=== PATIENT | male | born 1950 | race Caucasian/White ===

== ENCOUNTER → 2021-07-01 09:17 | Outpatient (BNVA) | payer OTHER, SELFPAY | PROVIDERS: Visit Provider Psychiatry & Neurology Neurology ==

== ENCOUNTER → 2021-10-23 08:22 | Outpatient (BNVA) | payer OTHER, SELFPAY | PROVIDERS: PCP Family Medicine; Visit Provider Psychiatry & Neurology Neurology | DX: G20 Parkinson's disease (principal) ==

== ENCOUNTER 2022-01-08 09:33 | Outpatient (REF) | payer OTHER, SELFPAY ==
--- NOTE | ~2022-01-08 | CT_ITS ---
EXAMINATION: CT HEAD WITHOUT CONTRAST CLINICAL INFORMATION: R32 - Unspecified urinary incontinence COMPARISON: None TECHNIQUE: Contiguous axial imaging was performed from the skull base to vertex without intravenous administration of contrast. Additional 2-D coronal and sagittal reformatted images are generated on the CT workstation and uploaded to PACS. This CT examination was performed using dose optimization techniques as appropriate, variously including the following: *Automated exposure control *Adjustment of mA and/or kV according to patient size (this includes techniques or standardized protocols for targeted exams where dose is matched to indication/reason for exam; i.e. extremities or head) *Use of iterative reconstruction technique DLP: 765 mGy-cm FINDINGS: There is no intracranial hemorrhage or hematoma. No hydrocephalus, edema, mass effect, or midline shift. The ventricles are normal in size and contour. There are mild atrophic changes with some accentuation of the cortical sulci and fissures. There are small bilateral subdural hygromas, slightly larger on right, 6-7 mm right and 4-5 mm with on left. In the posterior fossa hygromas are seen approximately 6 mm right and just under 4 mm on left. The maddox-white matter differentiation appears well preserved . There is no visible acute territorial infarct or mass lesion. The calvarium appears intact. There is no pneumocephalus or orbital emphysema. The visualized sinuses and middle ears and mastoid air cells show no significant mucosal thickening. The right mastoid air cells are congenitally underpneumatized There are no air-fluid levels. CT/CT head/brain wo con IMPRESSION: -No hydrocephalus, edema, or mass effect. -No territorial infarct. Maddox-white matter differentiation preserved. -Small bilateral subdural hygromas.
== END 2022-01-08 09:34 | disposition home or self-care (01) ==
LOC: HO.CT 09:33
PROVIDERS: PCP Psychiatry & Neurology Neurology; Visit Provider Psychiatry & Neurology Neurology
DX: G20 Parkinson's disease (principal); G47.52 REM sleep behavior disorder; R32 Unspecified urinary incontinence
CPT/HCPCS: 70450

== ENCOUNTER → 2022-08-03 08:03 | Outpatient (BNVA) | payer OTHER, SELFPAY | PROVIDERS: PCP Family Medicine; Visit Provider Psychiatry & Neurology Neurology | DX: Z13.89 Encounter for screening for other disorder (principal) ==

== ENCOUNTER → 2022-11-01 09:51 | Outpatient (BNVA) | payer OTHER, SELFPAY | PROVIDERS: PCP Family Medicine; Visit Provider Psychiatry & Neurology Neurology | DX: G20 Parkinson's disease (principal); G47.52 REM sleep behavior disorder ==

== ENCOUNTER 2023-01-18 09:44 | Outpatient (REF) | payer OTHER, SELFPAY ==
--- NOTE | ~2023-01-18 | CT_ITS ---
EXAMINATION: CT HEAD/BRAIN WITHOUT CONTRAST CLINICAL INFORMATION: Nontraumatic subdural hemorrhage. COMPARISON: Previous head CT December 2021. TECHNIQUE: Contiguous axial imaging was performed from the skull base to vertex without intravenous administration of contrast. This CT examination was performed using dose optimization techniques as appropriate, variously including the following: *Automated exposure control *Adjustment of mA and/or kV according to patient size (this includes techniques or standardized protocols for targeted exams where dose is matched to indication/reason for exam; i.e. extremities or head) *Use of iterative reconstruction technique. DLP: 801 mGy-cm. FINDINGS: There is mild generalized atrophy. There is nonspecific periventricular white matter disease. Prominent extra-axial CSF spaces versus possible small subdural hygromas appear similar to December 2021 exam. No evidence of hemorrhage. No mass, mass effect or infarct. Review at bone windows is normal. No skull fracture. Visualized paranasal sinuses, mastoid air cells and middle ears are clear. CT/CT head/brain wo IV con IMPRESSION: Mild generalized atrophy and nonspecific periventricular white matter disease. Possible small bilateral subdural hygromas versus prominent extra-axial CSF spaces related to generalized atrophy appear unchanged from December 2021 exam.
== END 2023-01-18 09:45 | disposition home or self-care (01) ==
LOC: HO.CT 09:44
PROVIDERS: PCP Family Medicine; Visit Provider Psychiatry & Neurology Neurology
DX: I62.00 Nontraumatic subdural hemorrhage, unspecified (principal)
CPT/HCPCS: 70450

== ENCOUNTER 2023-02-15 08:59 | Outpatient (AMB) | payer OTHER, SELFPAY ==
--- NOTE | 2023-02-15 09:03 | MHC.OFFVIS ---
Intake Vital Signs 02/15/23 09:05 Height 5 ft 6 in Weight 163 lb 2 oz BMI 26.3 BP 104/60 Blood Pressure Location Rt brachial Position Sitting Pulse 60 Pulse Source Pulse Oximeter Pulse Oximetry (%) 97 Oxygen Delivery Method Room Air Intake Visit Reasons: 3m f/u parkinsons-lvm Intake Note: Pt presents to the office today for a 3 month follow up for parkinsons. Pts Tory is present at this appointment. states he has been pretty much the same. Pts states he is still unsteady, still incontinent. Pt states he had some screaming episodes last night which hasnt happened in a long time. Pts states he is confused at night a lot and sleeps a lot during the day. Pts states he does eat well but ahs some trouble swallowing occasionally and drools a lot at night. Accompanied by: Spouse Allergies mirtazapine [From Remeron] Allergy (Severe, Verified 02/15/23 09:07) choking amoxicillin Allergy (Mild, Verified 02/15/23 09:07) unknown azithromycin Allergy (Mild, Verified 02/15/23 09:07) unknown tamsulosin [From Flomax] Allergy (Mild, Verified 02/15/23 09:07) unknown quetiapine Allergy (Verified 02/15/23 09:07) Unknown Statins Allergy (Severe, Uncoded 02/15/23 09:07) rhadeomyolitis IVP DYE Allergy (Uncoded 02/15/23 09:07) Unknown Medication List - Last Reconciled 02/15/23 by Fabby Sun MD apixaban (Eliquis) 5 mg PO BID carbidopa-levodopa 25-100 mg (Sinemet) 1 tab PO TID 90 days carbidopa-levodopa 25-100 mg ER 1 tab PO TID 90 days famotidine (Pepcid) 20 mg PO DAILY hydrochlorothiazide 25 mg PO DAILY hydroxyzine HCl 10 mg PO BEDTIME melatonin 20 mg PO DAILY memantine 10 mg PO BID 90 days polyethylene glycol 3350 (Miralax) 17 grams PO DAILY HPI HPI Comments History of Present Illness Details 72 y/o male calls for follow up of parkinsons disease and cognitive issues.He is doind better than last visit. He is able to get up from his chair and walk with walker during the day .He still has drooling, nighttime confusion. 08/12CT scan - head showed right frontoparietal chronic subdural hemtoma 01/18/23 There is mild generalized atrophy. There is nonspecific periventricular white matter disease. Prominent extra-axial CSF spaces versus possible small subdural hygromas appear similar to December 2021 exam. No evidence of hemorrhage. No mass, mass effect or infarct. Review at bone windows is normal. No skull fracture. Visualized paranasal sinuses, mastoid air cells and middle ears are clear. He has excessive daytime sleepiness and has insomnia at night . He has occasional RBD His cognition has worsened. His diet is OK.No hallucinations. He has day night reversal , multiple naps during the day and multiple confused arousals at night. No dizziness. His BP has been stable so did not start on midodrine [facility] Medical History Anxiety Atrial fibrillation Depression Exposure to cadmium Exposure to potentially hazardous chemical Exposure to solvent Hypertrophy of prostate Parkinsons Rhabdomyolysis Subdural hematoma Subdural hematoma, nontraumatic Vitamin D deficiency Surgical History History of lithotripsy History of removal of calculus of renal pelvis through percutaneous nephrostomy History of urostomy No pertinent past surgical history Family History Mother Heart disease CHF (congestive heart failure) Diabetes Father Dementia Family/Other Mesothelioma Paranoid schizophrenia Depressive disorder Social History Household Members: Spouse Alcohol intake: never Patient Tobacco Use Status: Never used Tobacco Physical Exam Vital Signs: Last Vital Signs Pulse 60 02/15/23 09:05 BP 104/60 02/15/23 09:05 Pulse Ox 97 02/15/23 09:05 Oxygen Delivery Method Room Air 02/15/23 09:05 BMI result Body Mass Index 26.3 Const Orientation/consciousness: patient oriented x3 Eyes Pupils: Equal, round and reactive pupils present Neuro Other: moderate decreased facial expression and blink No tremors FFM and foot taps decreased moderately R>L Hypophonia cog wheel rigidity 2+right 1 on left able to stand holding on to the arm s of the chair, magnetic gait , stooped General: patient oriented x3 and moves all extremities Cranial nerves: Yes Equal, round and reactive pupils present and Yes Normal facial strength present Coordination: [id number] test normal Assessment & Plan Assessment & Plan (1) Parkinsons: Code(s): G20 - Parkinson's disease (2) REM behavioral disorder: Code(s): G47.52 - REM sleep behavior disorder Plan continue carbidopa /levodopa 1 tab tid 7am 12 noon 7pm carbidopa levodopa ER 1tabs 25/100 tid Start azilect 1mg qd nemaneda 10mg bid Monitor BP- has been stable Increase fluids - 9 cups a day Increase Physical activity - his helps with his exercises and is not motivated . Needs help with dressing , standing up Change memantine 10mg bid. Follow up CT reviewed Medications: New rasagiline (Azilect) 1 mg PO DAILY 90 tabs 5RF Coding Level of Care Code Est Pt Level 4 (51384) Diagnoses Parkinsons G20 REM behavioral disorder G47.52
[2023-02-15 09:05] VITALS: BP 104/60; PULSE 60; O2SAT 97; BMI 26.3
== END 2023-02-15 09:22 | disposition home or self-care (01) ==
PROVIDERS: Visit Provider Psychiatry & Neurology Neurology
DX: G20 Parkinson's disease (principal); G47.52 REM sleep behavior disorder
CPT/HCPCS: 99214

== ENCOUNTER → 2023-02-15 08:59 | Outpatient (BNVA) | payer OTHER, SELFPAY | PROVIDERS: Visit Provider Psychiatry & Neurology Neurology | DX: G20 Parkinson's disease (principal); G47.52 REM sleep behavior disorder; I62.00 Nontraumatic subdural hemorrhage, unspecified ==

== ENCOUNTER 2023-06-23 10:01 | Outpatient (AMB) | payer OTHER, SELFPAY ==
[2023-06-23 10:18] VITALS: BP 98/66; PULSE 68; RESP 15; O2SAT 98; BMI 25.8
--- NOTE | 2023-06-23 10:18 | MHC.OFFVIS ---
Intake Vital Signs 06/23/23 10:18 Height 5 ft 6 in Weight 160 lb BMI 25.8 BP 98/66 Blood Pressure Location Lt brachial Position Sitting Respiration 15 Pulse 68 Pulse Source Pulse Oximeter Pulse Oximetry (%) 98 Oxygen Delivery Method Room Air Intake Visit Reasons: 4m follow up Parkinson's - Confirmed Intake Note: Pt presents for a 4 month follow up for Parkinson's. Crocheter Required: No Allergies mirtazapine [From Remeron] Allergy (Severe, Verified 06/23/23 10:18) choking amoxicillin Allergy (Mild, Verified 06/23/23 10:18) unknown azithromycin Allergy (Mild, Verified 06/23/23 10:18) unknown tamsulosin [From Flomax] Allergy (Mild, Verified 06/23/23 10:18) unknown quetiapine Allergy (Verified 06/23/23 10:18) Unknown Statins Allergy (Severe, Uncoded 06/23/23 10:18) rhadeomyolitis IVP DYE Allergy (Uncoded 06/23/23 10:18) Unknown Medication List - Last Reconciled 06/23/23 by Fabby Sun MD apixaban (Eliquis) 5 mg PO BID carbidopa-levodopa 25-100 mg (Sinemet) 1 tab PO TID 90 days carbidopa-levodopa 25-100 mg ER 1 tab PO TID 90 days famotidine (Pepcid) 20 mg PO DAILY hydrochlorothiazide 25 mg PO DAILY hydroxyzine HCl 10 mg PO BEDTIME melatonin 20 mg PO DAILY memantine 10 mg PO BID 90 days polyethylene glycol 3350 (Miralax) 17 grams PO DAILY rasagiline (Azilect) 1 mg PO DAILY HPI HPI Comments History of Present Illness Details 72 y/o male calls for follow up of parkinsons disease and cognitive issues.He had the flu last month and is recovering He is able to get up from his chair and walk with walker during the day .He still has drooling, nighttime confusion. He had another fall in Feb 2023 and was in ER .No change in CT brain.His falls are mostly related to getting up form wheelchair unsupervised. He has a gait belt He has occasional screaming at night. his is decreasing his melatonin 20mg as he is very sleepy during daytime He has PT 4 times a week 08/12CT scan - head showed right frontoparietal chronic subdural hemtoma 01/18/23 There is mild generalized atrophy. There is nonspecific periventricular white matter disease. Prominent extra-axial CSF spaces versus possible small subdural hygromas appear similar to December 2021 exam. No evidence of hemorrhage. No mass, mass effect or infarct. Review at bone windows is normal. No skull fracture. Visualized paranasal sinuses, mastoid air cells and middle ears are clear. He has excessive daytime sleepiness and has insomnia at night . He has occasional RBD His cognition has worsened. His diet is OK.No hallucinations. He has day night reversal , multiple naps during the day and multiple confused arousals at night. No dizziness. His BP fluctuates. He drinks 7-8 cups of water /day He has nocturnal incontinence.He wears a diaper . 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 [facility] Medical History (Updated 06/23/23 @ 10:38 by Fabby Sun MD) Parkinson's disease without dyskinesia, with fluctuating manifestations Subdural hematoma, nontraumatic Subdural hematoma Vitamin D deficiency Exposure to potentially hazardous chemical Exposure to solvent Exposure to cadmium Rhabdomyolysis Anxiety Atrial fibrillation Depression Hypertrophy of prostate Surgical History History of urostomy History of lithotripsy History of removal of calculus of renal pelvis through percutaneous nephrostomy No pertinent past surgical history Family History Mother Heart disease CHF (congestive heart failure) Diabetes Father Dementia Family/Other Mesothelioma Paranoid schizophrenia Depressive disorder Social History Household Members: Spouse Alcohol intake: never Patient Tobacco Use Status: Never used Tobacco Physical Exam Vital Signs: Last Vital Signs Pulse 68 06/23/23 10:18 Resp 15 06/23/23 10:18 BP 98/66 06/23/23 10:18 Pulse Ox 98 06/23/23 10:18 Oxygen Delivery Method Room Air 06/23/23 10:18 BMI result Body Mass Index 25.8 Const Orientation/consciousness: patient oriented x3 Eyes Pupils: Equal, round and reactive pupils present Neuro Other: moderate decreased facial expression and blink No tremors FFM and foot taps decreased moderately R>L Hypophonia cog wheel rigidity 2+right 1 on left able to stand holding on to the arm s of the chair, magnetic gait , stooped General: patient oriented x3 and moves all extremities Cranial nerves: Yes Equal, round and reactive pupils present and Yes Normal facial strength present Coordination: [id number] test normal Assessment & Plan Assessment & Plan (1) Parkinson's disease without dyskinesia, with fluctuating manifestations: Code(s): G20.A2 - Parkinson's disease without dyskinesia, with fluctuations (2) REM behavioral disorder: Code(s): G47.52 - REM sleep behavior disorder Plan Increase carbidopa /levodopa 1 tab tid 7am 1 pm 6pm 11 pm carbidopa levodopa ER 1tabs 25/100 tid Start azilect 1mg qd- not sure if he is taking namenda 10mg bid Monitor BP- has been stable Increase fluids - 9 cups a day Medications: Changed From carbidopa-levodopa 25-100 mg (Sinemet) 1 tab PO TID 90 days 270 tabs 3RF To carbidopa-levodopa 25-100 mg (Sinemet) 1 tab PO QID 360 tabs 3RF 90 days Coding Level of Care Code Est Pt Level 4 (92022) Diagnoses Parkinson's disease without dyskinesia, with fluctuating manifestations G20.A2 REM behavioral disorder G47.52
== END 2023-06-23 10:45 | disposition home or self-care (01) ==
PROVIDERS: PCP Family Medicine; Visit Provider Psychiatry & Neurology Neurology
DX: G20.A2 Parkinson's disease without dyskinesia, with fluctuations (principal); G47.52 REM sleep behavior disorder
CPT/HCPCS: 99214

== ENCOUNTER → 2023-06-23 10:01 | Outpatient (BNVA) | payer OTHER, SELFPAY | PROVIDERS: PCP Family Medicine; Visit Provider Psychiatry & Neurology Neurology | DX: G47.52 REM sleep behavior disorder (principal); I62.00 Nontraumatic subdural hemorrhage, unspecified ==

== ENCOUNTER 2023-10-19 09:43 | Outpatient (AMB) | payer OTHER, SELFPAY ==
[2023-10-19 09:46] VITALS: BP 96/58; PULSE 73; RESP 17; O2SAT 99
--- NOTE | 2023-10-19 09:46 | MHC.OFFVIS ---
Vital Signs 10/19/23 09:46 Height 5 ft 6 in BP 96/58 L Blood Pressure Location Rt brachial Position Sitting Respiration 17 Pulse 73 Pulse Source Pulse Oximeter Pulse Oximetry (%) 99 Oxygen Delivery Method Room Air Intake Visit Reasons: 6M follow up-CONF Intake Note: Pt presents for a 6 month follow up for Parkinson's. Long Goods Drier Required: No Allergies mirtazapine [From Remeron] Allergy (Severe, Verified 10/19/23 09:46) choking amoxicillin Allergy (Mild, Verified 10/19/23 09:46) unknown azithromycin Allergy (Mild, Verified 10/19/23 09:46) unknown tamsulosin [From Flomax] Allergy (Mild, Verified 10/19/23 09:46) unknown quetiapine Allergy (Verified 10/19/23 09:46) Unknown Statins Allergy (Severe, Uncoded 06/23/23 10:18) rhadeomyolitis IVP DYE Allergy (Uncoded 06/23/23 10:18) Unknown Medication List - Last Reconciled 10/19/23 by Fabby Sun MD apixaban (Eliquis) 5 mg PO BID carbidopa-levodopa 25-100 mg (Sinemet) 1 tab PO QID 90 days carbidopa-levodopa 25-100 mg ER 1 tab PO QID 90 days famotidine (Pepcid) 20 mg PO DAILY glycopyrrolate (Robinul Forte) 2 mg PO BID-TID PRN hydrochlorothiazide 25 mg PO DAILY hydroxyzine HCl 10 mg PO BEDTIME melatonin 20 mg PO DAILY memantine 10 mg PO BID 90 days polyethylene glycol 3350 (Miralax) 17 grams PO DAILY rasagiline (Azilect) 1 mg PO DAILY HPI Comments Details: 72 y/o male calls for follow up of parkinsons disease and cognitive issues.He had COVID last month and is recovering He is able to get up from his chair and walk with walker during the day .He still has drooling, nighttime confusion. No falls. He choke son his saliva and secretions He has a gait belt He has occasional screaming at night. his is decreasing his melatonin 20mg as he is very sleepy during daytime He exercises with home health aide He is on a 14 day heart monitor- cardiology is trying to taper eliquis. 08/12CT scan - head showed right frontoparietal chronic subdural hemtoma 8/1/23 There is mild generalized atrophy. There is nonspecific periventricular white matter disease. Prominent extra-axial CSF spaces versus possible small subdural hygromas appear similar to December 2021 exam. No evidence of hemorrhage. No mass, mass effect or infarct. Review at bone windows is normal. No skull fracture. Visualized paranasal sinuses, mastoid air cells and middle ears are clear. He has excessive daytime sleepiness and has insomnia at night . He has occasional RBD His cognition has worsened. His diet is OK.No hallucinations. He has day night reversal , multiple naps during the day and multiple confused arousals at night. No dizziness. His BP fluctuates. He drinks 7-8 cups of water /day He has nocturnal incontinence.He wears a diaper . 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 [facility] Medical History Parkinson's disease without dyskinesia, with fluctuating manifestations Subdural hematoma, nontraumatic Subdural hematoma Vitamin D deficiency Exposure to potentially hazardous chemical Exposure to solvent Exposure to cadmium Rhabdomyolysis Anxiety Atrial fibrillation Depression Hypertrophy of prostate Surgical History History of urostomy History of lithotripsy History of removal of calculus of renal pelvis through percutaneous nephrostomy No pertinent past surgical history Family History Mother Heart disease CHF (congestive heart failure) Diabetes Father Dementia Family/Other Mesothelioma Paranoid schizophrenia Depressive disorder Social History Household Members: Spouse Alcohol intake: never Patient Tobacco Use Status: Never used Tobacco Physical Exam Vital Signs: Last Vital Signs Pulse 73 10/19/23 09:46 Resp 17 10/19/23 09:46 BP 96/58 L 10/19/23 09:46 Pulse Ox 99 10/19/23 09:46 Oxygen Delivery Method Room Air 10/19/23 09:46 Const Orientation/consciousness: patient oriented x3 Eyes Pupils: Equal, round and reactive pupils present Neuro Other: moderate decreased facial expression and blink No tremors FFM and foot taps decreased moderately R>L Hypophonia cog wheel rigidity 2+right 1 on left able to stand holding on to the arm s of the chair, magnetic gait , stooped General: patient oriented x3 and moves all extremities Cranial nerves: Yes Equal, round and reactive pupils present and Yes Normal facial strength present Coordination: [id number] test normal Assessment & Plan Assessment & Plan (1) Parkinson's disease without dyskinesia, with fluctuating manifestations: Code(s): G20.A2 - Parkinson's disease without dyskinesia, with fluctuations Category: Medical (2) REM behavioral disorder: Code(s): G47.52 - REM sleep behavior disorder Category: Medical Plan carbidopa /levodopa 1 tab qid 7am 1 pm 6pm 11 pm Increase carbidopa levodopa ER 1tabs 25/100 qid glycopyrrolate 2mg bid to tid azilect 1mg qd namenda 10mg bid Monitor BP- has been stable Increase fluids - 9 cups a day Medications: New glycopyrrolate (Robinul Forte) 2 mg PO BID-TID PRN 90 tabs 0RF secretions Changed From carbidopa-levodopa 25-100 mg ER 1 tab PO TID 90 days 270 tabs 5RF To carbidopa-levodopa 25-100 mg ER 1 tab PO QID 90 days 360 tabs 5RF Coding Level of Care Code Est Pt Level 4 (19839) Diagnoses Parkinson's disease without dyskinesia, with fluctuating manifestations G20.A2 REM behavioral disorder G47.52
== END 2023-10-19 10:24 | disposition home or self-care (01) ==
PROVIDERS: Absent Provider Psychiatry & Neurology Neurology; PCP Family Medicine; Visit Provider Psychiatry & Neurology Neurology
DX: G20.A2 Parkinson's disease without dyskinesia, with fluctuations (principal); G47.52 REM sleep behavior disorder
CPT/HCPCS: 99214

== ENCOUNTER → 2023-10-19 09:43 | Outpatient (BNVA) | payer OTHER, SELFPAY | PROVIDERS: Absent Provider Psychiatry & Neurology Neurology; PCP Family Medicine; Visit Provider Psychiatry & Neurology Neurology ==

== ENCOUNTER 2024-05-25 12:50 | Outpatient (AMB) | payer OTHER, SELFPAY ==
--- NOTE | 2024-05-25 12:51 | MHC.OFFVIS ---
Vital Signs 05/25/24 12:51 Height 5 ft 6 in Intake Visit Reasons: Follow up Intake Note: Patient following up. Allergies mirtazapine [From Remeron] Allergy (Severe, Verified 05/25/24 12:51) choking amoxicillin Allergy (Mild, Verified 05/25/24 12:51) unknown azithromycin Allergy (Mild, Verified 05/25/24 12:51) unknown tamsulosin [From Flomax] Allergy (Mild, Verified 05/25/24 12:51) unknown quetiapine Allergy (Verified 05/25/24 12:51) Unknown Statins Allergy (Severe, Uncoded 05/25/24 12:51) rhadeomyolitis IVP DYE Allergy (Uncoded 05/25/24 12:51) Unknown HPI Comments Details: 72 y/o male calls for follow up of parkinsons disease and cognitive issues.he had 2 surgeries for kidney stones, had a fall hip fracture and had surgery , he developed aspiration pneumonia during hsi hospitalizations. His also reports taht during his hospitalizations he missed his parkinsons medications multiple days. He is currently at home and is getting home PT OT and speech therapy.He has a G tube now. 08/12CT scan - head showed right frontoparietal chronic subdural hemtoma 01/18/23 There is mild generalized atrophy. There is nonspecific periventricular white matter disease. Prominent extra-axial CSF spaces versus possible small subdural hygromas appear similar to December 2021 exam. No evidence of hemorrhage. No mass, mass effect or infarct. Review at bone windows is normal. No skull fracture. Visualized paranasal sinuses, mastoid air cells and middle ears are clear. [facility] Medical History Parkinson's disease without dyskinesia, with fluctuating manifestations Subdural hematoma, nontraumatic Subdural hematoma Vitamin D deficiency Exposure to potentially hazardous chemical Exposure to solvent Exposure to cadmium Rhabdomyolysis Anxiety Atrial fibrillation Depression Hypertrophy of prostate Surgical History History of urostomy History of lithotripsy History of removal of calculus of renal pelvis through percutaneous nephrostomy No pertinent past surgical history Family History Mother Heart disease CHF (congestive heart failure) Diabetes Father Dementia Family/Other Mesothelioma Paranoid schizophrenia Depressive disorder Social History Household Members: Spouse Alcohol intake: never Patient Tobacco Use Status: Never used Tobacco Physical Exam Const Other: Awake , responds to simple quetsions Telehealth Telehealth Telehealth Platform: Telephone Location of provider rendering services: practice address Location of patient: address on file Patient Identification confirmed using: Name, : Yes Telehealth method: voice only Patient verbally consented to treatment: Yes Patient verbally consented to billing insurance company: Yes Patient informed of any privacy concerns related to visit: Yes Minutes spent on Phone/Video with Pt.: 22 Assessment & Plan Assessment & Plan (1) Parkinson's disease without dyskinesia, with fluctuating manifestations: Code(s): G20.A2 - Parkinson's disease without dyskinesia, with fluctuations Category: Medical (2) REM behavioral disorder: Code(s): G47.52 - REM sleep behavior disorder Category: Medical Plan carbidopa /levodopa 1 tab qid 7am 1 pm 6pm 11 pm carbidopa levodopa ER 1tabs 25/100 qid glycopyrrolate 2mg bid to tid azilect 1mg qd namenda 10mg bid Monitor BP- has been stable Hoe PT OT Speech Medications: Refilled glycopyrrolate (Robinul Forte) 2 mg PO BID-TID PRN 270 tabs 6RF secretions carbidopa-levodopa 25-100 mg (Sinemet) 1 tab PO QID 360 tabs 3RF 90 days carbidopa-levodopa 25-100 mg ER 1 tab PO QID 360 tabs 5RF 90 days memantine 10 mg PO BID 180 tabs 1RF 90 days rasagiline (Azilect) 1 mg PO DAILY 90 tabs 5RF Coding Level of Care Code Tele Est Pt Level 4 (86092) Complex EM visit Add On G2211 Diagnoses Parkinson's disease without dyskinesia, with fluctuating manifestations G20.A2 REM behavioral disorder G47.52 Time Spent (min) 22
--- OUTSIDE RECORDS SUMMARY | 2024-05-30 08:31 | XMS_ITS ---
Author Name [facility] [place] [facility] [place] Address [address] [place] [id number] Care Team Providers Care Livestock Commission Agent Name Role Phone LUIS FERNANDO FONTANEZ Primary Care Provider Unavailabl e AMANDO OHARA Unavailable Unavailable RAMIN MENDIETA Unavailable Unavailable FEISHILA, KALYAN Unavailable Unavailable GOLD, DAMANIVAL Unavailable Unavailable RIGO FENTON Unavailable Unavailable RISING, JENNIFER Unavailable Unavailable SAMUEL, AMARIS Unavailable Unavailable MITALI, CANDICE Unavailable Unavailable Insurance Providers: All historical and current Section Date Range: From patient's date of to the date document was created. This section includes the names of all active insurance providers for the patient. Insurance Provider Type of Coverage Plan Name Start of Policy Coverage End of Policy Coverage Group Number Member ID Insurance Provider's Telephone Number Policy Steen's Name Patient's Relationship to Policy Steen TOMMIE ALT ION [id number] Jun 20, 2017 [id number] EAMON OLIVIA ERT PATIENT MEDICARE (WNR) MEDICARE (M) PART A Jun 20, 2014 PART A [id number] [phone] EAMON OLIVIA ERT PATIENT MEDICARE (WNR) MEDICARE (M) PART B Jun 20, 2014 PART B [id number] EAMON OLIVIA ERT PATIENT MEDICARE (WNR) MEDICARE (M) PART B Jun 20, 2014 PART B [id number] [phone] EAMON OLIVIA ERT PATIENT MEDICARE (WNR) MEDICARE (M) PART A Jun 20, 2014 PART A [id number] [phone] EAMON OLIVIA ERT PATIENT [employer] RX PRESCRIPT ION RX Jun 20, 2023 THPRX [id number] EAMON OLIVIA ERT PATIENT [employer] RX PRESCRIPT ION RX Jun 20, 2022 THPRX [id number] EAMON OLIVIA ERT PATIENT [employer] RX PRESCRIPT ION RX Jun 20, 2022 THPRX [id number] [phone] DAVON OLIVIA JR PATIENT [facility] TON MAR Jun 20, 2017 [id number] [phone] EAMON OLIVIA ERT PATIENT [facility] TON PEÑA E Jun 20, 2017 [id number] [facility] PE[facility] E Jun 20, 2017 [id number] [phone] DAVON OLIVIA JR PATIENT [facility] USP Jun 20, 2017 USP [id number] EAMON OLIVIA ERT PATIENT [facility] Jun 20, 2023 [id number] [phone] EAMON OLIVIA ERT PATIENT Selected Encounter This section includes the information on record at [place] for the Encounter. Date/Time Encounter Type Encounter Description Reason Provider Source Oct 12, 2023 12:02 PM QNHP OL DIG ASSMT&MGMT 5-10 CLINICAL PHARMACY ICD-10-CM G20.C Parkinsonism, unspecified ABEL ALEGRE [facility] Encounter Template Text not used by [place] Assessments - Encounter Diagnoses This section includes the primary and secondary diagnoses documented for the Encounter. Date/Time Primary/Secondary Diagnosis Diagnosis Name Provider Source Oct 12, 2023 12:06 PM PRIMARY Parkinsonism, unspecified ABEL ALEGRE [facility] ([id number] Oct 12, 2023 12:06 PM SECONDARY Unspecified urinary incontinence ABEL ALEGRE [facility] ([id number]) Plan of Treatment: Future Appointments (+ 6 months) and Future Tests (+/- 45 days) The Plan of Treatment section includes future care activities for the patient from all [place] [facility] This section includes future appointments and future orders which are active, pending or scheduled. Future Appointments This section includes appointments that were scheduled to occur 6 months from the date of the Encounter, up to a maximum of 20 appointments. The data comes from all [place] treatment facilities. Appointment Date/Time Appointment Type Appointme nt Facility Name Oct 17, 2023 01:00 PM [facility] [place] [facility] Oct 17, 2023 01:15 PM [facility] [place] [facility] Dec 26, 2023 11:00 AM AMBULATORY - MEDIC[facility] [place] [facility] Jan 04, 2024 01:00 PM AMBULATORY - NONE [facility] [place] [facility] Feb 02, 2024 03:00 PM AMBULATORY - REHAB MEDICIN E [facility] [place] [facility] Feb 14, 2024 12:30 PM AMBULATORY - REHAB MEDICIN E [facility] [place] [facility] Mar 15, 2024 10:00 AM AMBULATORY - REHAB MEDICIN E [facility] [place] [facility] Mar 22, 2024 08:00 AM [facility]ULATORY [facility]IC[facility] [place] [facility] Mar 22, 2024 01:00 PM AMBULATORY - NONE [facility] [place] [facility] Mar 27, 2024 02:30 PM [facility]ULATORY - MEDICINE [facility] [place] [facility] Mar 29, 2024 11:00 AM AMBULATORY - REHAB MEDICIN E [facility] [place] [facility] Apr 12, 2024 11:00 AM AMBULATORY - REHAB MEDICIN E [facility] [place] [facility] Lab Results: +/- 30 days of the encounter This section includes the Chemistry and Hematology Lab Results on record with [place] for the patient. Radiology Reports and Pathology Reports are provided separately, in subsequent sections. Lab Results This section contains the Chemistry/Hematology Results that were resulted 30 days before or 30 daysafter the date of the Encounter. Date/Time Source Result Type Result - Unit Interpretation Reference Range Comment Oct 10, 2023 02:00 PM [facility] FOLATE (WROX) Specimen Type: SERUM No comment entered. Ordering Provider: LUIS FERNANDO FONTANEZ Report Released Date/Time: Oct 10, 2023 08:28 AM Reporting Lab: [facility] [address] [address] Performing Lab: [facility] [address] [facility] [address] FOLATE (WROX) 13.68 ng/mL >5.2 Oct 10, 2023 02:00 PM [facility] LIVER FUNCTION Specimen Type: SERUM No comment entered. Ordering Provider: LUIS FERNANDO FONTANEZ Report Released Date/Time: Oct 10, 2023 08:28 AM Reporting Lab: [facility] [address] [address] Performing Lab: [address] [address] PROTEIN,TOTAL 7.0 g/dL 6.0-8.3 ALBUMIN 3.6 g/dL 3.5-5.0 ALKALINE PHOSPHATASE 77 U/L 40-150 AST 21 U/L 5-34 ALT 14 U/L BILIRUBIN, TOTAL 0.4 mg/dL 0.2-1.2 Oct 10, 2023 02:00 PM [facility] LIPID PANEL, NON FASTING Specimen Type: SERUM No comment entered. Ordering Provider: LUIS FERNANDO FONTANEZ Report Released Date/Time: Oct 10, 2023 08:28 AM Reporting Lab: [facility] [address] [address] Performing Lab: [facility] [address] [address] CHOLESTEROL 210 mg/dL H TRIGLYCERIDE 84 mg/dL 0-150 LDL calculated 133 mg/dL H 0-129 CHOL/HDL 3.5 HDL CHOLESTEROL 60 mg/dL 40-60 Oct 10, 2023 02:00 PM [facility] VITAMIN D (25-OH) Specimen Type: SERUM No comment entered. Ordering Provider: LUIS FERNANDO FONTANEZ A Report Released Date/Time: Oct 10, 2023 08:28 AM Reporting [facility] [place] [facility] [address] [address] Performing Lab: [place] [facility] [address] [address] VITAMIN D (25-OH) 38 ng/mL 20-50 Oct 10, 2023 02:00 PM [facility] VITAMIN B12 Specimen Type: SERUM No comment entered. Ordering Provider: LUIS FERNANDO FONTANEZ Report Released Date/Time: Oct 10, 2023 08:28 AM Reporting Lab: [place] [facility] [place] [facility] [address] [address] Performing [facility]: [facility] [address] [address] VITAMIN B12 767 pg/mL 200-900 Oct 10, 2023 02:00 PM [facility] HEMOGLOBIN A1C PANEL Specimen Type: BLOOD Comment: Values obtained from A1C measurements can vary. For atypical A1C assays, a reported value of 7.0 could actually be between 6.72 and 7.28 if measured by a reference method. A reported value of 9.0 could actually be between 8.73 and 9.27. Ref: http://www.ngs p.org/CAPdata. asp Ordering Provider: LUIS FERNANDO FONTANEZ Report Released Date/Time: Oct 10, 2023 08:28 AM Reporting Lab: [facility] [address] [address] Performing Lab: [facility] [address] [address] HEMOGLOBIN A1C 5.3 4.0-5.6 Oct 10, 2023 02:00 PM [facility] TSH Specimen Type: SERUM No comment entered. Ordering Provider: LUIS FERNANDO FONTANEZ Report Released Date/Time: Oct 10, 2023 08:28 AM Reporting Lab: [facility] [address] [address] Performing Lab: [facility] [address] [address] TSH 2.22 u[IU]/mL 0.35-5.00 Oct 10, 2023 02:00 PM [facility] FERRITIN Specimen Type: SERUM No comment entered. Ordering Provider: LUIS FERNANDO FONTANEZ Report Released Date/Time: Oct 10, 2023 08:28 AM Reporting Lab: [facility] [address] [address] Performing Lab: [address] [address] FERRITIN 106 ng/mL 20-300 Oct 10, 2023 02:00 PM [facility] IRON & TIBC PANEL Specimen Type: SERUM No comment entered. Ordering Provider: LUIS FERNANDO FONTANEZ Report Released Date/Time: Oct 10, 2023 08:28 AM Reporting Lab: [address] [address] Performing Lab: [address] [address] TIBC 330 ug/dL 204-475 IRON 102 ug/dL 40-160 Transferrin Saturation 30.9 20.0-50.0 Oct 10, 2023 02:00 PM [facility] CBC AND DIFF (AUTO) Specimen Type: BLOOD No comment entered. Ordering Provider: LUIS FERNANDO FONTANEZ Report Released Date/Time: Oct 10, 2023 08:28 AM Reporting Lab: [address] [address] Performing Lab: [address] [address] WBC 7.10 10*3/uL 4.50-11.00 RBC 5.13 10*6/uL 4.23-5.66 HGB 15.1 g/dL 12.8-17 HCT 45.5 39.2-50.4 MCV 88.7 fL 82-99 MCHC 33.2 g/dL 30.8-35.1 PLT 281 10*3/uL 140-360 RDW-CV 12.9 12.0-16.0 [place], Abs 0.67 10*3/uL 0.30-1.10 MCH 29.4 pg 26.2-32.6 Neut % 61.3 43.7-75.8 Lymph % 27.3 14.0-42.3 [place] % 9.4 5.1-13.7 Eos % 1.3 0.4-6.8 Baso % 0.4 0.1-2.0 Neut, Abs 4.35 10*3/uL 2.20-7.60 Lymph, Abs 1.94 10*3/uL 1.00-3.20 Eos, Abs 0.09 10*3/uL 0.03-0.44 Baso, Abs 0.03 10*3/uL 0.01-0.13 Immature Gran % 0.3 0.0-0.7 Immature Gran, Abs 0.02 10*3/uL 0.00-0.06 Oct 10, 2023 02:00 PM [facility] BASIC METABOLIC PANEL (non-fasting) Specimen Type: SERUM No comment entered. Ordering Provider: LUIS FERNANDO FONTANEZ Report Released Date/Time: Oct 10, 2023 08:28 AM Reporting Lab: [facility] [address] [address] Performing Lab: [address] [address] UREA NITROGEN 16 mg/dL 7-25 GLUCOSE 82 mg/dL 65-100 SODIUM 139 mmol/L 135-145 POTASSIUM 3.5 mmol/L 3.5-5.0 CHLORIDE 99 mmol/L L 100-110 CO2 31 meq/L H 20-30 CREATININE, Serum 1.17 mg/dL 0.50-1.40 eGFR(CKD-EPI 2020) 65 mL/min >60 Advance Directives: All historical and current Section Date Range: From patient's date of to the date document was created. This section includes ALL of a patient's completed or amended [place] Advance and Rescinded Directives. The entries below indicate that a directive exists for the patient, but an actual copy is not included with this document. The data comes from all [place] facilities. Date Advance Directives Provider Source Jan 20, 2021 ADVANCE DIRECTIVE BENTON ARAUZ [facility] Encounter Notes: All associated encounter notes This section contains the clinical notes associated to the Encounter. Date/Time Encounter Note(s) Provider Source Dec 01, 2023 01:23 PM ADDENDUM: LOCAL TITLE: Addendum STANDARD TITLE: ADDENDUM DATE OF NOTE: DEC 01, 2023@13:23:24 ENTRY DATE: DEC 01, 2023@13:23:25 AUTHOR: CANDICE GEORGE COSIGNER: URGENCY: STATUS: COMPLETED Note to provider: the [place] pharmacy no longer allows ordering of OTC hygiene products w/ no medicated active ingredients, including oatmeal soap. Please discontinue the following order: OATMEAL,COLLOIDAL CLEANSING BAR/DRY SKIN DIRECTED TOPICALLY ONCE DAILY FOR SKIN IRRITATION Pt may purchase the product OTC if desired. /sharron/ Candice George PharmD Clinical Wheel Adjuster Signed: 12/01/2023 13:26 Receipt Acknowledged By: 12/05/2023 07:28 /sharron/ LUIS FERNANDO CHIU [facility] NURSE PRACTITIONER ====== --- Original Document --- 10/12/23 CONSULT REPORT/NON FORMULARY PADR: The medical record has been reviewed with regard to this restricted drug request. Medication requested: OATMEAL,COLLOIDAL CLEANSING BAR/DRY SKIN Medication indication: Dry Skin, Parkinson's Disease Medical history relevant to this request: From [facility] note 10/10/23: states his skin is dry due to excessive washing and clean up for incontinence care and she is inquiring about a moisturizing soap for showering. Provider comments: has a history of Parkinson's that has advance due to excessive washing due to incontinence and difficutly changing bed has developed dry skinthat emollient cream has not been effective moisturzing soap would be helpful for multiple daily use The request is approved - No formulary-preferred alternative Time spent: 10 min /sharron/ Abel Alegre PharmD Clinical Wheel Adjuster Signed: 10/12/2023 12:06 [id number] Oct 12, 2023 12:02 PM MEDICATION MGT CON SULT: LOCAL TITLE: CONSULT REPORT/NON FORMULARY PADR STANDARD TITLE: MEDICATION MGT CONSULT DATE OF NOTE: OCT 12, 2023@12:02 ENTRY DATE: OCT 12, 2023@12:02:39 AUTHOR: ABEL ALEGRE EXP COSIGNER: URGENCY: STATUS: COMPLETED CONSULT REPORT/NON FORMULARY PADR Has ADDENDA The medical record has been reviewed with regard to this restricted drug request. Medication requested: OATMEAL,COLLOIDAL CLEANSING BAR/DRY SKIN Medication indication: Dry Skin, Parkinson's Disease Medical history relevant to this request: From [facility] note 10/10/23: states his skin is dry due to excessive washing and clean up for incontinence care and she is inquiring about a moisturizing soap for showering. Provider comments: has a history of Parkinson's that has advance due to excessive washing due to incontinence and difficutly changing bed has developed dry skinthat emollient cream has not been effective moisturzing soap would be helpful for multiple daily use The request is approved - No formulary-preferred alternative Time spent: 10 min /sharron/ Abel Alegre PharmD Clinical Wheel Adjuster Signed: 10/12/2023 12:06 12/01/2023 ADDENDUM STATUS: COMPLETED Note to provider: the [place] pharmacy no longer allows ordering of OTC hygiene products w/ no medicated active ingredients, including oatmeal soap. Please discontinue the following order: OATMEAL,COLLOIDAL CLEANSING BAR/DRY SKIN DIRECTED TOPICALLY ONCE DAILY FOR SKIN IRRITATION Pt may purchase the product OTC if desired. /sharron/ Candice George PharmD Clinical Wheel Adjuster Signed: 12/01/2023 13:26 Receipt Acknowledged By: * AWAITING SIGNATURE * LUIS FERNANDO FONTANEZ [id number]
--- OUTSIDE RECORDS SUMMARY | 2024-05-30 08:32 | XMS_ITS | Encounter Summary ---
Author Name [place] Address [address] [place] [id number] Care Team Providers Care Triple Drum Operator Name Role Phone HUSEYIN LUIS FERNANDO Primary Care Provider Unavailabl e AMANDO OHARA Unavailable Unavailable RARAMIN KEYES Unavailable Unavailable FEISHILA, KALYAN Unavailable Unavailable GOLD, [...] Name Patient's Relationship to Policy Steen TOMMIE PRESCRIPT ION [id number] 1 Jun 20, 2017 [id number] [phone] EAMON OLIVIA ERT PATIENT MEDICARE (WNR) MEDICARE (M) PART A Jun 20, 2014 PART A [id number] EAMON OLIVIA ERT PATIENT MEDICARE (WNR) MEDICARE (M) PART B Jun 20, 2014 PART B [id number] [phone] EAMON OLIVIA ERT PATIENT MEDICARE (WNR) MEDICARE (M) PART A Jun 20, 2014 PART A [id number] EMAON OLIVIA ERT PATIENT MEDICARE (WNR) MEDICARE (M) PART B Jun 20, 2014 PART B [id number] EAMON OLIVIA ERT PATIENT OPTUM RX PRESCRIPT ION RX Jun 20, 2023 THPRX [id number] EAMON OLIVIA ERT PATIENT OPTUM RX PRESCRIPT ION RX Jun 20, 2022 THPRX [id number] EAMON OLIVIA ERT PATIENT OPTUM RX PRESCRIPT ION RX Jun 20, 2022 THPRX [id number] DAVON OLIVIA JR PATIENT [facility] Jun 20, 2017 [id number] [phone] EAMON OLIVIA ERT PATIENT [facility] TON PEÑA E Jun 20, 2017 [id number] [phone] DAVON OLIVIA JR PATIENT [facility] TON PEÑA E Jun 20, 2017 [id number] [phone] DAVON OLIVIA JR PATIENT [facility] USP Jun 20, 2017 USP [id number] [phone] EAMON OLIVIA ERT PATIENT [facility] Jun 20, 2023 [id number] EAMON OLIVIA ERT PATIENT Selected Encounter This section includes the information on record at [place] for the Encounter. Date/Time Encounter Type Encounter Description Reason Provider Source Oct 17, 2023 01:00 PM ELECTROCARDIOGRAM TRACING EKG ICD-10-CM I48.0 Paroxysmal atrial fibrillation SHAYLEE GLORIA Chalino Encounter Template Text not used by [place] Assessments - Encounter Diagnoses This section includes the primary and secondary diagnoses documented for the Encounter. Date/Time Primary/Secondary Diagnosis Diagnosis Name Provider Source Oct 17, 2023 01:32 PM PRIMARY Paroxysmal atrial fibrillation SHAYLEE GLORIA [place] [facility] [place] [facility] Plan of Treatment: Future Appointments (+ 6 months) and Future Tests (+/- 45 days) The Plan of Treatment section includes future care activities for the patient from all [place] treatmentfacilities. This section includes future appointments and future orders which are active, pending or scheduled. Future Appointments This section includes appointments that were scheduled to occur 6 months from the date of the Encounter, up to a maximum of 20 appointments. The data comes from all [place] treatment facilities. Appointment Date/Time Appointment Type Appointme nt Facility Name Dec 26, 2023 11:00 AM AMBULATORY - MEDICINE [facility] [place] [facility] Jan 04, 2024 01:00 PM AMBULATORY - NONE [facility] [place] [facility] Feb 02, 2024 03:00 PM AMBULATORY - REHAB MEDICIN E [facility] [place] [facility] Feb 14, 2024 12:30 PM AMBULATORY - REHAB MEDICIN E [facility] [place] [facility] Mar 15, 2024 10:00 AM AMBULATORY - REHAB MEDICIN E [facility] [place] [facility] Mar 22, 2024 08:00 AM AMBULATORY - MEDICINE [facility] [place] [facility] Mar 22, 2024 01:00 PM AMBULATORY - NONE [facility] [place] [facility] Mar 27, 2024 02:30 PM AMBULATORY - MEDICINE [facility] [place] [facility] Mar 29, 2024 11:00 AM AMBULATORY - REHAB MEDICIN E [facility] [place] [facility] Apr 12, 2024 11:00 AM AMBULATORY - REHAB MEDICIN E [facility] [place] [facility] Lab Results: +/- 30 days of the encounter This section includes the Chemistry and Hematology Lab Results on record with [place] for the patient. Radiology Reports and Pathology Reports are provided separately, in subsequent sections. Lab Results This section contains the Chemistry/Hematology Results that were resulted 30 days before or 30 daysafter the date of the Encounter. Date/Time Source Result Type Result - Unit Interpretation Reference Range Comment Oct 10, 2023 02:00 PM [place] [facility] [place] [facility] FOLATE (WROX) Specimen Type: SERUM No comment entered. Ordering Provider: LUIS FERNANDO FONTANEZ Report Released Date/Time: Oct 10, 2023 08:28 AM Reporting [facility] [place] [facility] [address] [facility] [address] Performing Lab[facility] [address] [facility] [facility] [address] FOLATE (WROX) 13.68 ng/mL >5.2 Oct 10, 2023 02:00 PM [facility] LIVER FUNCTION Specimen Type: SERUM No comment entered. Ordering Provider: LUIS FERNANDO FONTANEZ A Report Released Date/Time: Oct 10, 2023 08:28 AM Reporting Lab: [facility] [address] [facility] [address] Performing Lab: [address] [address] PROTEIN,TOTAL 7.0 g/dL 6.0-8.3 ALBUMIN 3.6 g/dL 3.5-5.0 ALKALINE PHOSPHATASE 77 U/L 40-150 AST 21 U/L 5-34 ALT 14 U/L BILIRUBIN, TOTAL 0.4 mg/dL 0.2-1.2 Oct 10, 2023 02:00 PM [facility] LIPID PANEL, NON FASTING Specimen Type: SERUM No comment entered. Ordering Provider: LUIS FERNANDO FONTANEZ A Report Released Date/Time: Oct 10, 2023 08:28 AM Reporting Lab: [address] [address] Performing Lab: [address] [address] CHOLESTEROL 210 mg/dL H TRIGLYCERIDE 84 mg/dL 0-150 LDL calculated 133 mg/dL H 0-129 CHOL/HDL 3.5 HDL CHOLESTEROL 60 mg/dL 40-60 Oct 10, 2023 02:00 PM [facility] VITAMIN D (25-OH) Specimen Type: SERUM No comment entered. Ordering Provider: LUIS FERNANDO FONTANEZ A Report Released Date/Time: Oct 10, 2023 08:28 AM Reporting Lab: [address] [address] Performing Lab: [address] [address] VITAMIN D (25-OH) 38 ng/mL 20-50 Oct 10, 2023 02:00 PM [facility] VITAMIN B12 Specimen Type: SERUM No comment entered. Ordering Provider: LUIS FERNANDO FONTANEZ Report Released Date/Time: Oct 10, 2023 08:28 AM Reporting Lab: [facility] [place] [facility] [address] [address] Performing Lab: [facility] [address] [address] VITAMIN B12 767 pg/mL 200-900 Oct 10, 2023 02:00 PM [facility] HEMOGLOBIN A1C PANEL Specimen Type: BLOOD Comment: [...] Oct 10, 2023 08:28 AM Reporting Lab: [facility] [address] [address] Performing Lab: [facility] [address] [address] HEMOGLOBIN A1C 5.3 4.0-5.6 Oct 10, 2023 02:00 PM [facility] TSH Specimen Type: SERUM No comment entered. Ordering Provider: LUIS FERNANDO FONTANEZ Report Released Date/Time: Oct 10, 2023 08:28 AM Reporting Lab: [facility] [address] [address] Performing Lab: [facility] [address] [address] TSH 2.22 u[IU]/mL 0.35-5.00 Oct 10, 2023 02:00 PM [facility] FERRITIN Specimen Type: SERUM No comment entered. Ordering Provider: LUIS FERNANDO FONTANEZ Report Released Date/Time: Oct 10, 2023 08:28 AM Reporting Lab: [facility] [address] [address] Performing Lab: [facility] [address] [address] FERRITIN 106 ng/mL 20-300 Oct 10, 2023 02:00 PM [facility] IRON & TIBC PANEL Specimen Type: SERUM No comment entered. Ordering Provider: LUIS FERNANDO FONTANEZ Report Released Date/Time: Oct 10, 2023 08:28 AM Reporting Lab: [address] [address] Performing Lab: [address] [address] TIBC 330 ug/dL 204-475 IRON 102 ug/dL 40-160 Transferrin Saturation 30.9 20.0-50.0 Oct 10, 2023 02:00 PM [facility] CBC AND DIFF (AUTO) Specimen Type: BLOOD No comment entered. Ordering Provider: LUIS FERNANDO FONTANEZ Report Released Date/Time: Oct 10, 2023 08:28 AM Reporting Lab: [address] [address] Performing Lab: [address] [address] WBC 7.10 10*3/uL 4.50-11.00 RBC 5.13 10*6/uL 4.23-5.66 HGB 15.1 g/dL 12.8-17 HCT 45.5 39.2-50.4 MCV 88.7 fL 82-99 MCHC 33.2 g/dL 30.8-35.1 PLT 281 10*3/uL 140-360 RDW-CV 12.9 12.0-16.0 [place], Abs 0.67 10*3/uL 0.30-1.10 MCH 29.4 pg 26.2-32.6 Neut % 61.3 43.7-75.8 Lymph % 27.3 14.0-42.3 [place] % 9.4 5.1-13.7 Eos % 1.3 0.4-6.8 Baso % 0.4 0.1-2.0 Neut, Abs 4.35 10*3/uL 2.20-7.60 Lymph, Abs 1.94 10*3/uL 1.00-3.20 Eos, Abs 0.09 10*3/uL 0.03-0.44 Baso, Abs 0.03 10*3/uL 0.01-0.13 Immature Gran % 0.3 0.0-0.7 Immature Gran, Abs 0.02 10*3/uL 0.00-0.06 Oct 10, 2023 02:00 PM [facility] BASIC METABOLIC PANEL (non-fasting) Specimen Type: SERUM No comment entered. Ordering Provider: LUIS FERNANDO FONTANEZ Report Released Date/Time: Oct 10, 2023 08:28 AM Reporting Lab: [facility] [address] [address] Performing Lab: [facility] [address] [address] UREA NITROGEN 16 mg/dL 7-25 GLUCOSE 82 mg/dL 65-100 SODIUM 139 mmol/L 135-145 POTASSIUM 3.5 mmol/L 3.5-5.0 CHLORIDE 99 mmol/L L 100-110 CO2 31 meq/L H 20-30 CREATININE, Serum 1.17 mg/dL 0.50-1.40 eGFR(CKD-EPI 2020) 65 mL/min >60 Social History: Smoking Status (Most current) and Tobacco Use (All prior to encounter date) This section includes the most current, and the historical, smoking and tobacco- related health factors from the [place] facility where the Encounter took place. Current Smoking Status This section includes the most current smoking, or tobacco-related health factor, from the [place] facility where the Encounter took place. Date/Time Current Smoking Status Comment Raghu ity Jan 19, 2023 12:24 PM [place]-TOBACCO NEVER USED [facility] Tobacco Use History This section includes a history of the smoking, or tobacco-related health factors, that were collected on or before the date of the Encounter. The data comes from the [place] facility where the Encounter took place. Date/Time Smoking Status/Tobacco Use Comment F acneri Jan 15, 2021 11:00 AM [place]-TOBACCO NEVER USED [facility] Advance Directives: All historical and current Section Date Range: From patient's date of to the date document was created. This section includes ALL of a patient's completed or amended [place] Advance and Rescinded Directives. The entries below indicate that a directive exists for the patient, but an actual copy is not included with this document. The data comes from all [place] facilities. Date Advance Directives Provider Source Jan 20, 2021 ADVANCE DIRECTIVE [facility] ARAUZ [facility] Encounter Notes: All associated encounter notes This section contains the clinical notes associated to the Encounter. Date/Time Encounter Note(s) Provider Source Oct 17, 2023 01:32 PM CARDIOLOGY DIAGNOS TIC STUDY CONSULT: LOCAL TITLE: CONSULT REPORT/EKG STANDARD TITLE: CARDIOLOGY DIAGNOSTIC STUDY CONSULT DATE OF NOTE: OCT 17, 2023@13:32 ENTRY DATE: OCT 17, 2023@13:32:09 AUTHOR: SHAYLEE GLORIA EXP COSIGNER: URGENCY: STATUS: COMPLETED EKG tracing was performed for diagnosis of Paroxysmal atrial fibrillation ordered by LUIS FERNANDO FONTANEZ /sharron/ SHAYLEE GLORIA LPN LICENSED PRACTICAL NURSE Signed: 10/17/2023 13:32 SHAYLEE GLORIA [facility]
--- OUTSIDE RECORDS SUMMARY | 2024-05-30 08:33 | XMS_ITS | Encounter Summary ---
Author Name [place] Address [address] [place] [address] Care Team Providers Care Iv Technician Name Role Phone LUIS FERNANDO FONTANEZ Primary Care Provider Unavailabl e AMANDO OHARA Unavailable Unavailable RARAMIN KEYES Unavailable Unavailable FEISHILA, KALYAN Unavailable Unavailable GOLD, DAMANIVAL Unavailable Unavailable JOSSY, RIGO Unavailable Unavailable RISING, JENNIFER Unavailable Unavailable SAMUEL, [...] ALT ION [id number] 1 Jun 20, 2017 [id number] [phone] EAMON OLIVIA ERT PATIENT MEDICARE (WNR) MEDICARE (M) PART A Jun 20, 2014 PART A [id number] EAMON OLIVIA ERT PATIENT MEDICARE (WNR) MEDICARE (M) PART B Jun 20, 2014 PART B [id number] [phone] EAMON OLIVIA ERT PATIENT MEDICARE (WNR) MEDICARE (M) PART B Jun 20, 2014 PART B [id number] EAMON OLIVIA ERT PATIENT MEDICARE (WNR) MEDICARE (M) PART A Jun 20, 2014 PART A [id number] EAMON OLIVIA ERT PATIENT OPTUM RX PRESCRIPT ION RX Jun 20, 2023 THPRX [id number] EAMON OLIVIA ERT PATIENT OPTUM RX PRESCRIPT ION RX Jun 20, 2022 THPRX [id number] EAMON OLIVIA ERT PATIENT OPTUM RX PRESCRIPT ION RX Jun 20, 2022 THPRX [id number] DAVON OLIVIA JR PATIENT [facility] Jun 20, 2017 [id number] EAMON OLIVIA ERT PATIENT [facility] PE[facility] E Jun 20, 2017 [id number] [phone] DAVON OLIVIA JR PATIENT [facility] PEÑA E Jun 20, 2017 [id number] DAVON OLIVIA JR PATIENT [facility] USP Jun 20[facility] [id number] EAMON OLIVIA ERT PATIENT [facility] Jun 20, 2023 [id number] EAMON OLIVIA ERT PATIENT Selected Encounter This section includes the information on record at [place] for the Encounter. Date/Time Encounter Type Encounter Description Reason Provider Source Oct 17, 2023 01:15 PM EXT ECG>7D<15D RECORDING AMB ECG MONITORING ICD-10-CM I48.0 Paroxysmal atrial fibrillation SHAYLEE GLORIA [facility] Encounter Template Text not used by [place] Assessments - Encounter Diagnoses This section includes the primary and secondary diagnoses documented for the Encounter. Date/Time Primary/Secondary Diagnosis Diagnosis Name Provider Source Oct 17, 2023 01:34 PM PRIMARY Paroxysmal atrial fibrillation SHAYLEE GLORIA [place] [facility] [place] [facility] Plan of Treatment: Future Appointments (+ 6 months) and Future Tests (+/- 45 days) The Plan of Treatment section includes future care activities for the patient from all [place] treatmentfacilities. This section includes future appointments and future orders which are active, pending or scheduled. Future Appointments This section includes appointments that were scheduled to occur 6 months from the date of the Encounter, up to a maximum of 20 appointments. The data comes from all [place] treatment facilities. Appointment Date/Time Appointment Type Appointme nt Facility Name Dec 26, 2023 11:00 AM AMBULATORY - MEDICINE [facility] [place] [facility] Jan 04, 2024 01:00 PM AMBULATORY - NONE [facility] [place] [facility] Feb 02, 2024 03:00 PM AMBULATORY - REHAB MEDICIN E [facility] [facility] Feb 14, 2024 12:30 PM AMBULATORY - REHAB MEDICIN E [facility] [facility] Mar 15, 2024 10:00 AM AMBULATORY - REHAB MEDICIN E [facility] [facility] Mar 22, 2024 08:00 AM AMBULATORY - MEDICINE [facility] [place] [facility] Mar 22, 2024 01:00 PM AMBULATORY - NONE [facility] [place] [facility] Mar 27, 2024 02:30 PM AMBULATORY - MEDICINE [facility] [place] [facility] Mar 29, 2024 11:00 AM AMBULATORY - REHAB MEDICIN E [facility] [facility] Apr 12, 2024 11:00 AM AMBULATORY - REHAB MEDICIN E [facility] [facility] Lab Results: +/- 30 days of the encounter This section includes the Chemistry and Hematology Lab Results on record with [place] for the patient. Radiology Reports and Pathology Reports are provided separately, in subsequent sections. Lab Results This section contains the Chemistry/Hematology Results that were resulted 30 days before or 30 daysafter the date of the Encounter. Date/Time Source Result Type Result - Unit Interpretation Reference Range Comment Oct 10, 2023 02:00 PM [place] [facility] [place] [facility] FOLATE (WROX) Specimen Type: SERUM No comment entered. Ordering Provider: LUIS FERNANDO FONTANEZ Report Released Date/Time: Oct 10, 2023 08:28 AM Reporting Lab: [facility] [place] [facility] [address] [facility] [address] Performing Lab: [facility] [address] [address] FOLATE (WROX) 13.68 ng/mL >5.2 Oct 10, 2023 02:00 PM [facility] LIVER FUNCTION Specimen Type: SERUM No comment entered. Ordering Provider: LUIS FERNANDO FONTANEZ Report Released Date/Time: Oct 10, 2023 08:28 AM Reporting Lab: [facility] [address] [facility] [address] Performing Lab: [facility] [address] [facility] [address] PROTEIN,TOTAL 7.0 g/dL 6.0-8.3 ALBUMIN 3.6 g/dL 3.5-5.0 ALKALINE PHOSPHATASE 77 U/L 40-150 AST 21 U/L 5-34 ALT 14 U/L BILIRUBIN, TOTAL 0.4 mg/dL 0.2-1.2 Oct 10, 2023 02:00 PM [facility] LIPID PANEL, NON FASTING Specimen Type: SERUM No comment entered. Ordering Provider: LUIS FERNANDO FONTANEZ Report Released Date/Time: Oct 10, 2023 08:28 AM Reporting Lab: [facility] [address] [facility] [address] Performing Lab: [facility] [address] [facility] [address] CHOLESTEROL 210 mg/dL H TRIGLYCERIDE 84 mg/dL 0-150 LDL calculated 133 mg/dL H 0-129 CHOL/HDL 3.5 HDL CHOLESTEROL 60 mg/dL 40-60 Oct 10, 2023 02:00 PM [facility] VITAMIN D (25-OH) Specimen Type: SERUM No comment entered. Ordering Provider: LUIS FERNANDO FONTANEZ Report Released Date/Time: Oct 10, 2023 08:28 AM Reporting Lab: [facility] [address] [facility] [address] Performing Lab: [address] [address] VITAMIN D (25-OH) 38 ng/mL 20-50 Oct 10, 2023 02:00 PM [facility] VITAMIN B12 Specimen Type: SERUM No comment entered. Ordering Provider: LUIS FERNANDO FONTANEZ Report Released Date/Time: Oct 10, 2023 08:28 AM Reporting Lab: [facility] [place] [facility] [address] [facility] [address] Performing Lab: [facility] [address] [facility] [address] VITAMIN B12 767 pg/mL 200-900 Oct 10, 2023 02:00 PM [facility] HEMOGLOBIN A1C PANEL Specimen Type: BLOOD Comment: [...] Oct 10, 2023 08:28 AM Reporting Lab: [facility] [place] [facility] [address] [facility] [address] Performing Lab: [facility] [address] [address] HEMOGLOBIN A1C 5.3 4.0-5.6 Oct 10, 2023 02:00 PM [facility] TSH Specimen Type: SERUM No comment entered. Ordering Provider: LUIS FERNANDO FONTANEZ Report Released Date/Time: Oct 10, 2023 08:28 AM Reporting Lab: [facility] [place] [facility] [address] [facility] [address] Performing Lab: [facility] [address] [address] TSH 2.22 u[IU]/mL 0.35-5.00 Oct 10, 2023 02:00 PM [facility] FERRITIN Specimen Type: SERUM No comment entered. Ordering Provider: LUIS FERNANDO FONTANEZ Report Released Date/Time: Oct 10, 2023 08:28 AM Reporting Lab: [facility] [address] [facility] [address] Performing Lab: [facility] [address] [facility] [address] FERRITIN 106 ng/mL 20-300 Oct 10, 2023 02:00 PM [facility] IRON & TIBC PANEL Specimen Type: SERUM No comment entered. Ordering Provider: LUIS FERNANDO FONTANEZ Report Released Date/Time: Oct 10, 2023 08:28 AM Reporting Lab: [facility] [address] [facility] [address] Performing Lab: [address] [address] TIBC 330 ug/dL 204-475 IRON 102 ug/dL 40-160 Transferrin Saturation 30.9 20.0-50.0 Oct 10, 2023 02:00 PM [facility] CBC AND DIFF (AUTO) Specimen Type: BLOOD No comment entered. Ordering Provider: LUIS FERNANDO FONTANEZ Report Released Date/Time: Oct 10, 2023 08:28 AM Reporting Lab: [facility] [address] [facility] [address] Performing Lab: [address] [address] WBC 7.10 10*3/uL 4.50-11.00 RBC 5.13 10*6/uL 4.23-5.66 HGB 15.1 g/dL 12.8-17 HCT 45.5 39.2-50.4 MCV 88.7 fL 82-99 MCHC 33.2 g/dL 30.8-35.1 PLT 281 10*3/uL 140-360 RDW-CV 12.9 12.0-16.0 [place], Abs 0.67 10*3/uL 0.30-1.10 MCH 29.4 pg 26.2-32.6 Neut % 61.3 43.7-75.8 Lymph % 27.3 14.0-42.3 [place] % 9.4 5.1-13.7 Eos % 1.3 0.4-6.8 Baso % 0.4 0.1-2.0 Neut, Abs 4.35 10*3/uL 2.20-7.60 Lymph, Abs 1.94 10*3/uL 1.00-3.20 Eos, Abs 0.09 10*3/uL 0.03-0.44 Baso, Abs 0.03 10*3/uL 0.01-0.13 Immature Gran % 0.3 0.0-0.7 Immature Gran, Abs 0.02 10*3/uL 0.00-0.06 Oct 10, 2023 02:00 PM [facility] BASIC METABOLIC PANEL (non-fasting) Specimen Type: SERUM No comment entered. Ordering Provider: LUIS FERNANDO FONTANEZ Report Released Date/Time: Oct 10, 2023 08:28 AM Reporting Lab: [facility] [address] [facility] [address] Performing Lab: [address] [address] UREA NITROGEN 16 mg/dL 7-25 GLUCOSE 82 [...] and tobacco- related health factors from the [place] facility where the Encounter took place. Current Smoking Status This section includes the most current smoking, or tobacco-related health factor, from the [place] facility where the Encounter took place. Date/Time Current Smoking Status Comment Facil ity Jan 19, 2023 12:24 PM [place]-TO[place] NEVER USED [facility] Tobacco Use History This section includes a history of the smoking, or tobacco-related health factors, that were collected on or before the date of the Encounter. The data comes from the [place] facility where the Encounter took place. Date/Time Smoking Status/Tobacco Use Comment F acility Jan 15, 2021 11:00 AM [place]-TOBACCO NEVER USED [facility] Advance Directives: All historical and current Section Date Range: From patient's date of to the date document was created. This section includes ALL of a patient's completed or amended [place] Advance and Rescinded Directives. The entries below indicate that a directive exists for the patient, but an actual copy is not included with this document. The data comes from all [place] facilities. Date Advance Directives Provider Source Jan 20, 2021 ADVANCE DIRECTIVE BENTON ARAUZ [facility] Encounter Notes: All associated encounter notes This section contains the clinical notes associated to the Encounter. Date/Time Encounter Note(s) Provider Source Oct 17, 2023 01:33 PM CARDIOLOGY CONSULT : LOCAL TITLE: CONSULT REPORT/AMBULATORY ARRHYTHMIA MONITOR STANDARD TITLE: CARDIOLOGY CONSULT DATE OF NOTE: OCT 17, 2023@13:33 ENTRY DATE: OCT 17, 2023@13:33:20 AUTHOR: SHAYLEE GLORIA EXP COSIGNER: URGENCY: STATUS: COMPLETED Diagnoses:Paroxysmal atrial fibrillation Zio patch applied on Sep. After reviewing consult indications, a 14 day ZioPatch XT was applied to . Education was provided on its use and how to press the event button if symptomatic. The [place] was provided written instructions, contact phone numbers, and a postage-paid medical imaging director box to return the equipment. SN [id number] /sharron/ SHAYLEE GLORIA LPN LICENSED PRACTICAL NURSE Signed: 10/17/2023 13:34 SHAYLEE GLORIA [facility]
--- OUTSIDE RECORDS SUMMARY | 2024-05-30 08:33 | XMS_ITS | Encounter Summary ---
Author Name [facility] Organization [facility] Address [address] [place] [address] Care Team Providers Care Cosmetic Consultant Name Role Phone LUIS FERNANDO FONTANEZ Primary Care Provider Unavailabl e AMANDO OHARA Unavailable Unavailable RARAMIN KEYES Unavailable Unavailable FEILEN, KALYAN Unavailable Unavailable MALCOLM, DAMANIVAL Unavailable Unavailable RIGO FENTON Unavailable Unavailable [...] PRESCRIPT ION [id number] 1 Jun 20, 2017 [id number] EAMON OLIVIA ERT PATIENT MEDICARE (WNR) MEDICARE (M) PART A Jun 20, 2014 PART A [id number] EAMON OLIVIA ERT PATIENT MEDICARE (WNR) MEDICARE (M) PART B Jun 20, 2014 PART B [id number] EAMON OLIVIA ERT PATIENT MEDICARE (WNR) MEDICARE (M) PART B Jun 20, 2014 PART B [id number] EAMON OLIVIA ERT PATIENT MEDICARE (WNR) MEDICARE (M) PART A Jun 20, 2014 PART A [id number] EAMON OLIVIA ERT PATIENT [facility] RX PRESCRIPT ION RX Jun 20, 2023 THPRX [id number] [phone] EAMON OLIVIA ERT PATIENT [facility] RX PRESCRIPT ION RX Jun 20, 2022 THPRX [id number] EAMON OLIVIA ERT PATIENT [facility] RX PRESCRIPT ION RX Jun 20, 2022 THPRX [id number] [phone] DAVON OLIVIA JR PATIENT [facility] Jun 20, 2017 [id number] EAMON OLIVIA ERT PATIENT [facility] Jun 20, 2017 [id number] [phone] DAVON OLIVIA JR PATIENT [facility] Jun 20, 2017 [id number] [phone] DAVON OLIVIA JR PATIENT [facility] Jun 20, 2017 USP [id number] [phone] EAMON OLIVIA ERT PATIENT [facility] Jun 20, 2023 [id number] EAMON OLIVIA ERT PATIENT Selected Encounter This section includes the information on record at MD for the Encounter. Date/Time Encounter Type Encounter Description Reason Provider Source October 19, 2023 01:19 PM QNHP OL DIG ASSMT&MGMT 21+ [facility] - CLINICAL PHARMACIST ICD-10-CM Z79.899 Other penitentiary (current) drug therapy DA GEORGE E Encounter Template Text not used by MD Assessments - Encounter Diagnoses This section includes the primary and secondary diagnoses documented for the Encounter. Date/Time Primary/Secondary Diagnosis Diagnosis Name Provider Source October 20, 2023 10:12 AM PRIMARY Other penitentiary (current) drug therapy DA GEORGE [place] [facility] [place] [facility] Plan of Treatment: Future Appointments (+ 6 months) and Future Tests (+/- 45 days) The Plan of Treatment section includes future care activities for the patient from all MD treatment[facility] [place] [facility]. This section includes future appointments and future orders which are active, pending or scheduled. Future Appointments This section includes appointments that were scheduled to occur 6 months from the date of the Encounter, up to a maximum of 20 appointments. The data comes from all MD treatment facilities. Appointment Date/Time Appointment Type Appointme nt Facility Name Dec 26, 2023 11:00 AM AMBULATORY - MEDICINE MD [facility] [place] [facility] Jan 04, 2024 01:00 PM AMBULATORY - NONE [facility] [place] [facility] Feb 02, 2024 03:00 PM AMBULATORY - REHAB MEDICIN E [facility] [place] [facility] Feb 14, 2024 12:30 PM AMBULATORY - REHAB MEDICIN E [facility] [place] [facility] Mar 15, 2024 10:00 AM AMBULATORY - REHAB MEDICIN E [facility] [place] [facility] Mar 22, 2024 08:00 AM AMBULATORY - MEDICINE MD C [facility] [place] [facility] Mar 22, 2024 01:00 PM AMBULATORY - NONE [facility] [place] [facility] Mar 27, 2024 02:30 PM AMBULATORY - MEDICINE MD C [facility] [place] [facility] Mar 29, 2024 11:00 AM AMBULATORY - REHAB MEDICIN E [facility] [place] [facility] Apr 12, 2024 11:00 AM [facility]UL[facility] - [facility] Lab Results: +/- 30 days of the encounter This section includes the Chemistry and Hematology Lab Results on record with MD for the patient. Radiology Reports and Pathology Reports are provided separately, in subsequent sections. Lab Results This section contains the Chemistry/Hematology Results that were resulted 30 days before or 30 daysafter the date of the Encounter. Date/Time Source Result Type Result - Unit Interpretation Reference Range Comment Oct 10, 2023 02:00 PM [facility] FOLATE (WROX) Specimen Type: SERUM No comment entered. Ordering Provider: LUIS FERNANDO FONTANEZ Report Released Date/Time: Oct 10, 2023 08:28 AM Reporting Lab: [facility] [place] [facility] [address] [facility] [address] Performing Lab: [facility] [address] [facility] [address] FOLATE (WROX) 13.68 ng/mL >5.2 Oct 10, 2023 02:00 PM [facility] LIVER FUNCTION Specimen Type: SERUM No comment entered. Ordering Provider: LUIS FERNANDO FONTANEZ Report Released Date/Time: Oct 10, 2023 08:28 AM Reporting Lab: [facility] [address] [facility] [address] Performing Lab: [facility] [address] [facility] [address] PROTEIN,TOTAL 7.0 g/dL 6.0-8.3 ALBUMIN 3.6 g/dL 3.5-5.0 ALKALINE PHOSPHATASE 77 U/L 40-150 AST 21 U/L 5-34 ALT 14 U/L BILIRUBIN, TOTAL 0.4 mg/dL 0.2-1.2 Oct 10, 2023 02:00 PM [facility] LIPID PANEL, NON FASTING Specimen Type: SERUM No comment entered. Ordering Provider: LUIS FERNANDO FONTANEZ Report Released Date/Time: Oct 10, 2023 08:28 AM Reporting Lab: [facility] [address] [facility] [address] Performing Lab: [address] [address] CHOLESTEROL 210 mg/dL H TRIGLYCERIDE 84 mg/dL 0-150 LDL calculated 133 mg/dL H 0-129 CHOL/HDL 3.5 HDL CHOLESTEROL 60 mg/dL 40-60 Oct 10, 2023 02:00 PM [facility] VITAMIN D (25-OH) Specimen Type: SERUM No comment entered. Ordering Provider: LUIS FERNANDO FONTANEZ Report Released Date/Time: Oct 10, 2023 08:28 AM Reporting Lab: [facility] [address] [facility] [address] Performing Lab: [facility] [address] [facility] [address] VITAMIN D (25-OH) 38 ng/mL 20-50 Oct 10, 2023 02:00 PM [facility] VITAMIN B12 Specimen Type: SERUM No comment entered. Ordering Provider: LUIS FERNANDO FONTANEZ Report Released Date/Time: Oct 10, 2023 08:28 AM Reporting Lab: [facility] [address] [facility] [address] Performing Lab: [facility] [address] [facility] [address] VITAMIN B12 767 pg/mL 200-900 Oct 10, 2023 02:00 PM [facility] HEMOGLOBIN A1C PANEL Specimen Type: BLOOD Comment: [...] Oct 10, 2023 08:28 AM Reporting Lab: [facility] [address] [facility] [address] Performing Lab: [facility] [address] [facility] [address] HEMOGLOBIN A1C 5.3 4.0-5.6 Oct 10, 2023 02:00 PM [facility] TSH Specimen Type: SERUM No comment entered. Ordering Provider: LUIS FERNANDO FONTANEZ Report Released Date/Time: Oct 10, 2023 08:28 AM Reporting Lab: [facility] [address] [facility] [address] Performing Lab: [facility] [address] [facility] [address] TSH 2.22 u[IU]/mL 0.35-5.00 Oct 10, 2023 02:00 PM [facility] FERRITIN Specimen Type: SERUM No comment entered. Ordering Provider: LUIS FERNANDO FONTANEZ Report Released Date/Time: Oct 10, 2023 08:28 AM Reporting Lab: [facility] [address] [facility] [address] Performing Lab: [address] [address] FERRITIN 106 ng/mL 20-300 Oct 10, 2023 02:00 PM [facility] IRON & TIBC PANEL Specimen Type: SERUM No comment entered. Ordering Provider: LUIS FERNANDO FONTANEZ Report Released Date/Time: Oct 10, 2023 08:28 AM Reporting Lab: [facility] [address] [facility] [address] Performing Lab: [address] [address] TIBC 330 ug/dL 204-475 IRON 102 ug/dL 40-160 Transferrin Saturation 30.9 20.0-50.0 Oct 10, 2023 02:00 PM [facility] CBC AND DIFF (AUTO) Specimen Type: BLOOD No comment entered. Ordering Provider: LUIS FERNANDO FONTANEZ Report Released Date/Time: Oct 10, 2023 08:28 AM Reporting Lab: [address] [address] Performing Lab: [address] [address] WBC 7.10 10*3/uL 4.50-11.00 RBC 5.13 10*6/uL 4.23-5.66 HGB 15.1 g/dL 12.8-17 HCT 45.5 39.2-50.4 MCV 88.7 fL 82-99 MCHC 33.2 g/dL 30.8-35.1 PLT 281 10*3/uL 140-360 RDW-CV 12.9 12.0-16.0 [place], Abs 0.67 10*3/uL 0.30-1.10 MCH 29.4 pg 26.2-32.6 Neut % 61.3 43.7-75.8 Lymph % 27.3 14.0-42.3 [place] % 9.4 5.1-13.7 Eos % 1.3 0.4-6.8 Baso % 0.4 0.1-2.0 Neut, Abs 4.35 10*3/uL 2.20-7.60 Lymph, Abs 1.94 10*3/uL 1.00-3.20 Eos, Abs 0.09 10*3/uL 0.03-0.44 Baso, Abs 0.03 10*3/uL 0.01-0.13 Immature Gran % 0.3 0.0-0.7 Immature Gran, Abs 0.02 10*3/uL 0.00-0.06 Oct 10, 2023 02:00 PM [facility] BASIC METABOLIC PANEL (non-fasting) Specimen Type: SERUM No comment entered. Ordering Provider: LUIS FERNANDO FONTANEZ Report Released Date/Time: Oct 10, 2023 08:28 AM Reporting Lab: [facility] [address] [facility] [address] Performing Lab: [address] [address] UREA NITROGEN 16 mg/dL 7-25 GLUCOSE 82 [...] and tobacco- related health factors from the MD facility where the Encounter took place. Current Smoking Status This section includes the most current smoking, or tobacco-related health factor, from the MD facility where the Encounter took place. Date/Time Current Smoking Status Comment Raghu ity Jan 19, 2023 12:24 PM MD-TOBACCO NEVER USED [facility] Tobacco Use History This section includes a history of the smoking, or tobacco-related health factors, that were collected on or before the date of the Encounter. The data comes from the MD facility where the Encounter took place. Date/Time Smoking Status/Tobacco Use Comment F acility Jan 15, 2021 11:00 AM VA-TOBACCO NEVER USED [facility] Advance Directives: All historical and current Section Date Range: From patient's date of to the date document was created. This section includes ALL of a patient's completed or amended MD Advance and Rescinded Directives. The entries below indicate that a directive exists for the patient, but an actual copy is not included with this document. The data comes from all MD facilities. Date Advance Directives Provider Source Jan 20, 2021 ADVANCE DIRECTIVE BENTON ARAUZ ELZA Chacko [facility] Encounter Notes: All associated encounter notes This section contains the clinical notes associated to the Encounter. Date/Time Encounter Note(s) Provider Source October 19, 2023 01:19 PM [facility] MEDICATION MGT NOTE: LOCAL TITLE: [facility] PHARMACY MEDICATION REVIEW STANDARD TITLE: [facility] MEDICATION MGT NOTE DATE OF NOTE: OCTOBER 19, 2023@13:19 ENTRY DATE: OCTOBER 19, 2023@13:22:07 AUTHOR: CANDICE GEORGE COSIGNER: URGENCY: STATUS: COMPLETED [facility] PHARMACY MEDICATION REVIEW Has ADDENDA CORWINDAVON MACK JR is a 73 year old WHITE MALE. 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 01/27/2023October,VLAD Patel Internal hemorrhoids K64.8, Onset 0 01/27/2023October,VLAD P 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, 01/27/2023October,VLAD P Peripheral vascular disease I73.9, 01/27/2023October,VLAD P Migraine G43.909, Onset 01/27/2023October,VLAD P Solitary nodule of lung R91.1, Onse 01/27/2023October,VLAD P Dupuytren's contracture M72.0, Onse 01/27/2023October,VLAD P Multiple renal cysts R69., Onset 01/27/2023October,VLAD P Atrial flutter I48.92, Onset 01/19/2023October,VLAD P History of deep vein thrombosis Z86 01/19/2023October,VLAD P Memory loss R41.3, Onset 01/19/2023October,VLAD P Sundowning F05., Onset 01/19/2023October,VLAD P Urinary incontinence R32., Onset 00 01/19/2023October,VLAD P Insomnia G47.00, Onset 01/19/2023October,VLAD P Gastroesophageal reflux disease K21 01/19/2023October,VLAD P AF- Atrial Fibrillation ([facility] [id number] 10/05/2023 HUSEYINLUIS FERNANDO A Parkinson's disease G20.A1 09/01/2023 HUSEYINLUIS FERNANDO A Kidney Stone ([facility] [id number]) N20.0 01/15/2021 VIJAY CHA Alcohol (-) Tobacco (-) Allergies/ADR: LIPITOR (rhabdoymyolysis), AMOXICILLIN (urticaria), ERYTHROMYCIN (urticaria), FLOMAX (oliguria), SEROQUEL (urticaria), LEVAQUIN (urticaria), CONTRAST MEDIA (urticaria), MIRTAZAPINE Active and Recently Outpatient Medications (including Supplies): Active Outpatient Medications Status 1) APIXABAN 5MG TAB TAKE ONE TABLET BY MOUTH EVERY 12 ACTIVE (S) HOURS FOR ATRIAL FIBRILLATION 2) ARTIFICIAL SALIVA ORAL SPRAY SPRAY 2 SPRAYS BY MOUTH ACTIVE (S) EVERY 2 HOURS NEEDED FOR DRY MOUTH (USE DIRECTED) 3) CARBIDOPA 25/LEVODOPA 100MG SA TAB TAKE 1 TABLET BY ACTIVE (S) MOUTH THREE TIMES A DAY FOR PARKINSON SYMPTOMS 4) CARBIDOPA 25/LEVODOPA 100MG TAB TAKE 1 TABLET BY ACTIVE (S) MOUTH FOUR TIMES A DAY 5) CHLORHEXIDINE GLUCONATE 0.12% MOUTHWASH RINSE 15ML BY ACTIVE MOUTH ONCE DAILY FOR INFLAMMATION OF THE GUMS - SWISH AND SPIT. DO NOT SWALLOW 6) CHOLECALCIF 25MCG (D3-1,000UNIT) TAB TAKE ONE TABLET ACTIVE (S) BY MOUTH ONCE DAILY FOR VITAMIN SUPPLEMENTATION 7) DIAPER ADULT LARGE EXTRA ABSORBENT USE 1 BRIEF ACTIVE DIRECTED THREE TIMES A DAY INCONTINENCE 8) FAMOTIDINE 20MG TAB TAKE ONE TABLET BY MOUTH ONCE ACTIVE (S) DAILY FOR STOMACH ACID 9) HYDROCHLOROTHIAZIDE 25MG TAB TAKE ONE TABLET BY MOUTH ACTIVE (S) ONCE DAILY FOR HIGH BLOOD PRESSURE 10) HYDROPHILIC (EQV EUCERIN) TOP CREAM APPLY A LIBERAL ACTIVE AMOUNT TOPICALLY ONCE DAILY FOR DRY SKIN 11) HYDROXYZINE HCL 10MG TAB TAKE ONE TABLET BY MOUTH AT ACTIVE (S) BEDTIME NEEDED FOR ANXIETY 12) INCONT LINER PREVAIL GUARDS #[id number] USE 1 LINER ACTIVE TOPICALLY TWO TIMES A DAY 13) INCONT LINER,MENS X-HVY [facility] #[id number] USE 1 LINER HOLD TOPICALLY AT BEDTIME 14) INCONTINENCE WRAP,MALE USE 1 INCONTINENCE WRAP ACTIVE (S) TOPICALLY AT BEDTIME 15) MELATONIN 5MG CAP/TAB TAKE FOUR CAPSULE/TABLETS BY ACTIVE (S) MOUTH AT BEDTIME FOR INSOMNIA 16) MEMANTINE HCL 10MG TAB TAKE ONE TABLET BY MOUTH TWICE ACTIVE (S) DAILY FOR ALZHEIMERS DISEASE 17) MIDODRINE HCL 5MG TAB TAKE ONE TABLET BY MOUTH THREE ACTIVE TIMES DAILY NEEDED FOR LOW BLOOD PRESSURE 18) MULTIVITAMIN/MINERALS CAP/TAB TAKE 1 TABLET BY MOUTH ACTIVE (S) ONCE DAILY FOR VITAMIN SUPPLEMENTATION FOR VITAMIN SUPPLEMENTATION 19) OATMEAL,COLLOIDAL CLEANSING BAR/DRY SKIN DIRECTED ACTIVE TOPICALLY ONCE DAILY FOR SKIN IRRITATION 20) ORAL,SWAB TOOTHETTE USE 1 MOUTH SWAB DIRECTED ONCE ACTIVE DAILY TO USE WITH CHLOREHEXADINE ORAL RINSE 21) POLYETHYLENE GLYCOL 3350 ORAL PWDR TAKE 17 GRAMS(FILL ACTIVE CAP TO 17GM LINE) BY MOUTH ONCE DAILY FOR CONSTIPATION [MIX WITH 4 TO 8OZ. OF BEVERAGE] 22) RASAGILINE MESYLATE 1MG TAB TAKE ONE TABLET BY MOUTH ACTIVE (S) ONCE DAILY FOR PARKINSON'S DISEASE 23) UNDERPAD,BED ULTRASORB [id number] M#[id number] USE 2 UNDERPADS ACTIVE TOPICALLY AT BEDTIME Active Non-VA Medications Status 1) Non-VA DOCUSATE NA 100MG CAP 100MG BY MOUTH ONCE ACTIVE DAILY NEEDED 2) Non-VA LORAZEPAM 0.5MG TAB 0.5MG BY MOUTH ONCE DAILY ACTIVE NEEDED THE ABOVE MEDICATIONS WERE REVIEWED FOR: ADR, potential incompatibilities, compliance, duplication of therapy, and indications on problem list Other Rx/OTC/Herbals: none High Alert Meds: apixaban, lorazepam Look Alike/Sound Alike Meds: hydroxyzine, lorazepam Excessive Duration: none Duplication of therapy: none Labs: CBC TREND Collection DT Spec WBC RBC HGB HCT MCV MCH PLT 10/10/2023 14:00 BLOOD 7.10 5.13 15.1 45.5 88.7 29.4 281 05/26/2023 12:00 BLOOD 7.69 4.72 14.0 43.4 91.9 29.7 296 SERUM Apr May 26 Reference 2023 2022 14:00 12:00 Units Ranges GLUCOSE 82 89 mg/dL 65 - 100 BUN 16 17 mg/dL 7 - 25 CREATININE 1.17 1.08 mg/dL .5 - 1.4 Sodium 139 139 mmol/L 135 - 145 K+/Pot 3.5 3.5 mmol/L 3.5 - 5 CL 99 L 99 L mmol/L 100 - 110 CO2 31 H 31 H mEq/L 20 - 30 CA 9.1 mg/dL 8.5 - 10.2 MAG 2.0 mg/dL 1.6 - 2.6 eGFR CKD-EPI 202010/10/23 14:00 65 SERUM eGFR CKD-EPI 202005/26/23 12:00 72 SERUM LIVER PANEL TREND Collection DT Spec AST ALT T BILI ALK DAGMAR T. PROT ALBUMIN 10/10/2023 14:00 SERUM 21 14 0.4 77 7.0 3.6 05/26/2023 12:00 SERUM 20 8 0.5 67 6.6 3.4 L LIPID PANEL TREND Collection DT Spec CHOL HDL CHO/HDL LDL-c TRIG 10/10/2023 14:00 SERUM 210 H 60 3.5 133 H 84 05/26/2023 12:00 SERUM 204 H 56 3.6 135 H 67 HEMOGLOBIN A1C TREND Collection DT Spec HGBA1c 10/10/2023 14:00 BLOOD 5.3 05/26/2023 12:00 BLOOD 5.1 IRON PANEL TREND Collection DT Spec IRON Ferrit 10/10/2023 14:00 SERUM 102 106 05/26/2023 12:00 SERUM 106 95 IRON & TIBC PANEL; SERUM Moraima. Date: 10/10/23 14:00 Test Name Result Units Range TIBC 330 ug/dL 204 - 475 IRON 102 ug/dL 40 - 160 Transferrin Sat 30.9 % 20.0 - 50.0 THYROID PANEL Collection DT Specimen Test Name Result Units Ref Range 10/10/2023 14:00 SERUM TSH 2.22 uIU/mL 0.35 - 5.00 VITAMIN D 25-OH Collection DT Specimen Test Name Result Units Ref Range 10/10/2023 14:00 SERUM VITAMIN D (25-OH) 38 ng/mL 20 - 50 SERUM Apr Oct 09 May 26 May 26 Reference 2023 2023 2022 2022 14:00 14:00 12:00 12:00 Units Ranges B12 767 610 pg/mL 200 - 900 FOLATE 13.68 13.04 ng/mL Ref: >=5.2 CrCl: 48.2 mL/min (C&G, IBW) Vitals: Ht: 65 in [165.1 cm] (04/26/2023 11:00) Wt: 167 lb [75.75 kg] (04/26/2023 11:00) BMI: BMI: 27.8 BP: 138/78 (10/10/2023 13:30) HR: 84 (10/10/2023 13:30) Pain: 0 (10/10/2023 13:30) ASSESSMENT: In the last 90 days - No falls/hospitalizations noted - [facility] RN 08/02/23: pt's spouse recently decreased melatonin 20mg qHS to 15mg qHS with good effect and improvement in daytime wakefulness - [facility] RN 08/31/23: COVID vaccine administered - [facility] RN 09/29/23: pt tested positive for COVID last week. Pt was tx w/ antiviral medication from his non-VA PCP last week - course now complete - [facility] ASSISTANT STORE MANAGER TRAINEE 10/10/23: may consider stopping DOAC after 14-day heart monitor due to continued renal stone. No med changes - [facility] ASSISTANT STORE MANAGER TRAINEE letter 10/11/23: labs stable, no med changes INTERVENTIONS/SUGGESTIONS: 1. Patient's medications were reviewed for significant drug interactions. - Concurrent use of HYDROXYZINE and FAMOTIDINE may result in an increased risk of QT interval prolongation. -> QTc 435 ms on 10/17/23 - Concurrent use of MIDODRINE and RASAGILINE may result in increased exposure to midodrine. 2. Patient has reduced renal function with an estimated creatinine clearance of 48.2 mL/min, therefore at risk of accumulation of renally cleared drugs. LFTs wnl. Current medications are dosed appropriately for the patient's renal and hepatic function. 3. Medications reviewed to determine if medication regimen could contribute to falls. apixaban (increased risk of serious complication from fall) carbidopa/levodopa HCTZ hydroxyzine lorazepam memantine rasagiline To reduce the risk for falls, educate pt re: safe postural transitions and s/s orthostatic hypotension. Also monitor for signs of SHOE CLERK depression and gait disturbances during ambulation. Educate pt re: need to have blood glucose monitored for s/s confusion/diaphoresis/dizzine ss. Could also consider repeating serum vitamin D (25-OHD) level if multiple recent falls/near falls; a goal 25- OHD of at least 30 ng/mL may be associated with fall/fracture risk reduction, although data varies. 4. All medical conditions have appropriate medication treatmentEXCEPT: PVD - no antiplatelet; pt is on a DOAC 5. All medications have an appropriate indication and supporting clinical symptoms EXCEPT: docusate PEG powder HCTZ 6. Adherence Issues: none noted 7. Health Maintenance: > Immunizations: The CDC recommends two doses of the zoster vaccine (Shingrix) for immunocompetent adults >/= 50 (even if previously vaccinated with ZostaVax; if previously received ZostaVax, wait 8 weeks to give Shingrix). Two injections are needed by 2-6 months. Patient is otherwise UTD. > Bladder/Bowel: Inquire about incontinence and severity biannually. > Exercise/Physical Activity Wzwahxhy-ak-yllosouy aerobic activity 3-5x per week. Weight or resistance exercises. Flexibility activities to maintain ROM. Balance training to improve stability and prevent falls. > Bone Health: Calcium/vitamin D (diet and/or supplement): Men >70 yo: 1200mg Ca/800 international units vit D daily > ASA: Secondary ASCVD Prevention: Daily low-dose ASA -> Pt is on a DOAC 8. Patient with zero refills on: Artificial Saliva 9. Continue to review quarterly. 10. Other - Due for Shingrix vaccine per reminders. - Add an indication to problem list for docusate, PEG powder, and HCTZ. - Verify what dose of melatonin pt is currently takinmg qHS or 20mg qHS. Current order is written for 20mg qHS. Per [facility] RN note 08/02/23, pt had decreased the dose to 15mg qHS. Recommend updating order if applicable. The details of this review were shared with the IDT in order to assist in creating a care plan designed to provide services focused on the health and well being of the patient. Time Spent: 45 min /sharron/ Candice George PharmD Clinical Sales Operations Consultant Signed: 10/20/2023 11:16 Receipt Acknowledged By: 10/20/2023 20:16 /sharron/ JENNIFER SEGURA ANALYTICAL LAB ANALYST HB COMPUTER TECHNICAL SPECIALIST 10/21/2023 09:18 /sharron/ Olga Jones, MSN, ASSISTANT STORE MANAGER TRAINEE [facility] Residential Sales Associate for LUIS FERNANDO Ginna FONTANEZ 10/20/2023 ADDENDUM STATUS: COMPLETED Noted. Reviewed pharmacist's recommendations. /consuelo SEGURA ANALYTICAL LAB ANALYST HB COMPUTER TECHNICAL SPECIALIST Signed: 10/20/2023 20:16 CANDICE GEORGE CN[facility]L [facility]
--- OUTSIDE RECORDS SUMMARY | 2024-05-30 08:34 | XMS_ITS ---
Author Name [facility] [place] [facility] [place] [facility] [place] Address [address] [place] [id number] Care Team Providers Care Lithographic Press Operator Apprentice Name Role Phone LUIS FERNANDO FONTANEZ Primary [...] PRESCRIPT ION [id number] 1 Jun 20, 2017 [id number] EAMON OLIVIA ERT PATIENT MEDICARE (WNR) MEDICARE (M) PART A Jun 20, 2014 PART A [id number] EAMON OLIVIA ERT PATIENT MEDICARE (WNR) MEDICARE (M) PART B Jun 20, 2014 PART B [id number] EAMON OLIVIA ERT PATIENT MEDICARE (WNR) MEDICARE (M) PART B Jun 20, 2014 PART B [id number] EAMON OLIVIA ERT PATIENT MEDICARE (WNR) MEDICARE (M) PART A Jun 20, 2014 PART A [id number] EAMON OLIVIA ERT PATIENT OPTUM RX PRESCRIPT ION RX Jun 20, 2023 THPRX [id number] [phone] EAMON OLIVIA ERT PATIENT [facility] RX PRESCRIPT ION RX Jun 20, 2022 THPRX [id number] [phone] EAMON OLIVIA ERT PATIENT [facility] RX PRESCRIPT ION RX Jun 20, 2022 THPRX [id number] [phone] DAVON OLIVIA JR PATIENT [facility] TON MAR Jun 20, 2017 [id number] [phone] EAMON OLIVIA ERT PATIENT [facility] PL[facility] TON PEÑA E Jun 20, 2017 [id number] DAVON OLIVIA JR PATIENT [facility] TON PEÑA E Jun 20, 2017 [id number] DAVON OLIVIA JR PATIENT [facility] Jun 20, 2017 USP [id number] EAMON OLIVIA ERT [facility] Jun 20, 2023 [id number] [phone] EAMON OLIVIA ERT PATIENT Selected Encounter This section includes the information on record at [place] for the Encounter. Date/Time Encounter Type Encounter Description Reason Pro vider Source October 21, 2023 03:20 PM Outpatient Encounter [facility](WIND UP WORKER,BUSINESS CONTINUITY MANAGEMENT DIRECTOR,PA) IHE Encounter Template Text not used by [facility] Plan of Treatment: Future Appointments (+ 6 months) and Future Tests (+/- 45 days) The Plan of Treatment section includes future care activities for the patient from all [place] treatmentfacilities. This section includes future appointments and future orders which are active, pending or scheduled. Future Appointments This section includes appointments that were scheduled to occur 6 months from the date of the Encounter, up to a maximum of 20 appointments. The data comes from all [place] treatment facilities. Appointment Date/Time Appointment Type Appointme nt Facility Name Dec 26, 2023 11:00 AM AMBULATORY [facility] MEDICINE [facility] [place] [facility] Jan 04, 2024 01:00 PM AMBULATORY - NONE [facility] [place] [facility] Feb 02, 2024 03:00 PM AMBULATORY - REHAB MEDICIN E [facility] [place] [facility] Feb 14, 2024 12:30 PM AMBULATORY - REHAB MEDICIN E [facility] [place] [facility] Mar 15, 2024 10:00 AM AMBULATORY - REHAB MEDICIN E [facility] [place] [facility] Mar 22, 2024 08:00 AM [facility]ICINE [facility] [place] [facility] Mar 22, 2024 01:00 PM AMBULATORY - NONE [facility] [place] [facility] Mar 27, 2024 02:30 PM [facility] MEDICINE [facility] [place] [facility] Mar 29, 2024 11:00 AM AMBULATORY - REHAB MEDICIN E [facility] [place] [facility] Apr 12, 2024 11:00 AM AMBULATORY - REHAB MEDICIN E [facility] [place] [facility] Lab Results: +/- 30 days of the encounter This section includes the Chemistry and Hematology Lab Results on record with [place] for the patient. Radiology Reports and Pathology Reports are provided separately, in subsequent sections. Lab Results This section contains the Chemistry/Hematology Results that were resulted 30 days before or 30 daysafter the date of the Encounter. Date/Time Source Result Type Result - Unit Interpretation Reference Range Comment Oct 10, 2023 02:00 PM [place] [facility] FOLATE (WROX) Specimen Type: SERUM No comment entered. Ordering Provider: LUIS FERNANDO FONTANEZ Report Released Date/Time: Oct 10, 2023 08:28 AM Reporting Lab: [place] [facility] [place] [facility] [address] [facility] [address] Performing Lab: [place] [facility] [place] [facility] [address] [facility] [address] FOLATE (WROX) 13.68 ng/mL >5.2 Oct 10, 2023 02:00 PM [facility] LIVER FUNCTION Specimen Type: SERUM No comment entered. Ordering Provider: LUSI FERNANDO FONTANEZ Report Released Date/Time: Oct 10, 2023 08:28 AM Reporting [facility] [address] [facility] [address] Performing Lab: [facility] [address] [address] PROTEIN,TOTAL 7.0 g/dL 6.0-8.3 ALBUMIN 3.6 g/dL 3.5-5.0 ALKALINE PHOSPHATASE 77 U/L 40-150 AST 21 U/L 5-34 ALT 14 U/L BILIRUBIN, TOTAL 0.4 mg/dL 0.2-1.2 Oct 10, 2023 02:00 PM [facility] LIPID PANEL, NON FASTING Specimen Type: SERUM No comment entered. Ordering Provider: LUIS FERNANDO FONTANEZ Report Released Date/Time: Oct 10, 2023 08:28 AM Reporting [facility] [address] [address] Performing Lab: [facility] [address] CHOLESTEROL 210 mg/dL H TRIGLYCERIDE 84 mg/dL 0-150 LDL calculated 133 mg/dL H 0-129 CHOL/HDL 3.5 HDL CHOLESTEROL 60 mg/dL 40-60 Oct 10, 2023 02:00 PM [facility] VITAMIN D (25-OH) Specimen Type: SERUM No comment entered. Ordering Provider: LUIS FERNANDO FONTANEZ Report Released Date/Time: Oct 10, 2023 08:28 AM Reporting Lab[facility] [address] [facility] [address] Performing Lab: [facility] [address] VITAMIN D (25-OH) 38 ng/mL 20-50 Oct 10, 2023 02:00 PM [facility] VITAMIN B12 Specimen Type: SERUM No comment entered. Ordering Provider: LUIS FERNANDO FONTANEZ Report Released Date/Time: Oct 10, 2023 08:28 AM Reporting Lab[facility] [address] Performing Lab: [facility] [address] [facility] [address] VITAMIN B12 767 pg/mL 200-900 Oct 10, 2023 02:00 PM [facility] HEMOGLOBIN A1C PANEL Specimen Type: BLOOD Comment: [...] Oct 10, 2023 08:28 AM Reporting Lab: [facility] [address] [facility] [address] Performing Lab: [address] [address] HEMOGLOBIN A1C 5.3 4.0-5.6 Oct 10, 2023 02:00 PM [facility] TSH Specimen Type: SERUM No comment entered. Ordering Provider: LUIS FERNANDO FONTANEZ Report Released Date/Time: Oct 10, 2023 08:28 AM Reporting Lab: [facility] [address] [facility] [address] Performing Lab: [facility] [address] TSH 2.22 u[IU]/mL 0.35-5.00 Oct 10, 2023 02:00 PM [facility] FERRITIN Specimen Type: SERUM No comment entered. Ordering Provider: LUIS FERNANDO FONTANEZ Report Released Date/Time: Oct 10, 2023 08:28 AM Reporting Lab: [facility] [address] [facility] [address] Performing Lab: [address] [address] FERRITIN 106 ng/mL 20-300 Oct 10, 2023 02:00 PM [facility] IRON & TIBC PANEL Specimen Type: SERUM No comment entered. Ordering Provider: LUIS FERNANDO FONTANEZ Report Released Date/Time: Oct 10, 2023 08:28 AM Reporting Lab: [facility] [address] [facility] [address] Performing Lab: [address] [address] TIBC 330 ug/dL 204-475 IRON 102 ug/dL 40-160 Transferrin Saturation 30.9 20.0-50.0 Oct 10, 2023 02:00 PM [facility] CBC AND DIFF (AUTO) Specimen Type: BLOOD No comment entered. Ordering Provider: LUIS FERNANDO FONTANEZ Report Released Date/Time: Oct 10, 2023 08:28 AM Reporting Lab: [address] [address] Performing Lab: [address] [address] WBC 7.10 10*3/uL 4.50-11.00 RBC 5.13 10*6/uL 4.23-5.66 HGB 15.1 g/dL 12.8-17 HCT 45.5 39.2-50.4 MCV 88.7 fL 82-99 MCHC 33.2 g/dL 30.8-35.1 PLT 281 10*3/uL 140-360 RDW-CV 12.9 12.0-16.0 Hunt, Abs 0.67 10*3/uL 0.30-1.10 MCH 29.4 pg 26.2-32.6 Neut % 61.3 43.7-75.8 Lymph % 27.3 14.0-42.3 Hunt % 9.4 5.1-13.7 Eos % 1.3 0.4-6.8 Baso % 0.4 0.1-2.0 Neut, Abs 4.35 10*3/uL 2.20-7.60 Lymph, Abs 1.94 10*3/uL 1.00-3.20 Eos, Abs 0.09 10*3/uL 0.03-0.44 Baso, Abs 0.03 10*3/uL 0.01-0.13 Immature Gran % 0.3 0.0-0.7 Immature Gran, Abs 0.02 10*3/uL 0.00-0.06 Oct 10, 2023 02:00 PM [facility] BASIC METABOLIC PANEL (non-fasting) Specimen Type: SERUM No comment entered. Ordering Provider: LUIS FERNANDO FONTANEZ Report Released Date/Time: Oct 10, 2023 08:28 AM Reporting Lab: [facility] [address] [facility] [address] Performing Lab: [facility] [address] [facility] [address] UREA NITROGEN 16 mg/dL 7-25 GLUCOSE 82 [...] and tobacco- related health factors from the [place] facility where the Encounter took place. Current Smoking Status This section includes the most current smoking, or tobacco-related health factor, from the [place] facility where the Encounter took place. Date/Time Current Smoking Status Comment Raghu melchor Jan 19, 2023 12:24 PM [facility]-TOBACCO NEVER USED [facility] Tobacco Use History This section includes a history of the smoking, or tobacco-related health factors, that were collected on or before the date of the Encounter. The data comes from the [place] facility where the Encounter took place. Date/Time Smoking Status/Tobacco Use Comment F acility Jan 15, 2021 11:00 AM VA-TOBACCO NEVER USED [facility] Advance Directives: All historical and current Section Date Range: From patient's date of to the date document was created. This section includes ALL of a patient's completed or amended [place] Advance and Rescinded Directives. The entries below indicate that a directive exists for the patient, but an actual copy is not included with this document. The data comes from all [place] facilities. Date Advance Directives Provider Source Jan 20, 2021 ADVANCE DIRECTIVE BENTON ARAUZ [facility] [place] [facility] Encounter Notes: All associated encounter notes This section contains the clinical notes associated to the Encounter. Date/Time Encounter Note(s) Provider Source October 24, 2023 11:55 AM ADDENDUM: LOCAL TITLE: Addendum STANDARD TITLE: ADDENDUM DATE OF NOTE: OCTOBER 24, 2023@11:55:15 ENTRY DATE: OCTOBER 24, 2023@11:55:16 AUTHOR: LUIS FERNANDO FONTANEZ EXP COSIGNER: URGENCY: STATUS: COMPLETED change in carvedopa levodopa please advise to have Dr. Donahue send RX to pharmacy /sharron/ LUIS FERNANDO HICKEY-C HBDARSHAN NURSE PRACTITIONER Signed: 10/24/2023 11:55 Receipt Acknowledged By: 10/25/2023 14:23 /ZACHARIAH Rodriguez [facility] [employer]ERSON === --- Original Document --- 10/21/23 FAX/MAIL RECEIVED: Document Received On: October Document Type: Office Visit Note Date of Service: October Facility and or Provider: [facility] Contact Information: PCP of Record: LUIS FERNANDO FONTANEZ Next visit with PCP: 12/26/2023 11:00 [facility] Primary Care May keep copies of this document for up to 14 days and send the original for scanning. /sharron/ MARIAH GASTON AMSA Signed: 10/21/2023 15:22 Receipt Acknowledged By: 10/24/2023 08:00 /ZACHARIAH Rodriguez [facility] 10/24/2023 11:48 /consuelo HICKEY-C [facility] NURSE PRACTITIONER LUIS FERNANDO FONTANEZ [place] [facility] [place] [facility] October 21, 2023 03:20 PM ADMINISTRATIVE NOTE: LOCAL TITLE: FAX/MAIL RECEIVED STANDARD TITLE: ADMINISTRATIVE NOTE DATE OF NOTE: OCTOBER 21, 2023@15:20 ENTRY DATE: OCTOBER 21, 2023@15:20:27 AUTHOR: MARIAH FLORES EXP COSIGNER: URGENCY: STATUS: COMPLETED FAX/MAIL RECEIVED Has ADDENDA Document Received On: October Document Type: Office Visit Note Date of Service: October Facility and or Provider: [facility] Contact Information: PCP of Record: LUIS FERNANDO FONTANEZ Next visit with PCP: 12/26/2023 11:00 [facility] Primary Care May keep copies of this document for up to 14 days and send the original for scanning. /sharron/ MARIAH FLORES HB AMSA Signed: 10/21/2023 15:22 Receipt Acknowledged By: 10/24/2023 08:00 /sharron/ JENNIFER SEGURA UPHOLSTERY MECHANIC [facility] 10/24/2023 11:48 /sharron/ LUIS FERNANDO DIEGOP-C HB NURSE PRACTITIONER 10/24/2023 ADDENDUM STATUS: COMPLETED change in carvedopa levodopa please advise to have Dr. Donahue send RX to [facility] pharmacy /sharron/ LUIS FERNANDO FONTANEZ GLASS CURVATURE GAUGER-C HB NURSE PRACTITIONER Signed: 10/24/2023 11:55 Receipt Acknowledged By: * AWAITING SIGNATURE * JENNIFER SEGURA JULIETTE ROSE [facility]
--- OUTSIDE RECORDS SUMMARY | 2024-05-30 08:34 | XMS_ITS ---
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 Name Role Phone LUIS FERNANDO FONTANEZ Primary [...] Name Patient's Relationship to Policy Steen TOMMIE SIMS ION [id number] 1 Jun 20, 2017 [id number] EAMON OLIVIA ERT PATIENT MEDICARE (WNR) MEDICARE (M) PART A Jun 20, 2014 PART A [id number] [phone] EAMON OLIVIA ERT PATIENT MEDICARE (WNR) MEDICARE (M) PART B Jun 20, 2014 PART B [id number] EAMON OLIVIA ERT PATIENT MEDICARE (WNR) MEDICARE (M) PART B Jun 20, 2014 PART B [id number] [phone] EAMON OLIVIA ERT PATIENT MEDICARE (WNR) MEDICARE (M) PART A Jun 20, 2014 PART A [id number] EAMON OLIVIA ERT PATIENT [facility] RX PRESCRIPT ION RX Jun 20, 2023 THPRX [id number] [phone] EAMON OLIVIA ERT PATIENT [facility] RX PRESCRIPT ION RX Jun 20, 2022 THPRX [id number] [phone] EAMON OLIVIA ERT PATIENT [facility] RX PRESCRIPT ION RX Jun 20, 2022 THPRX [id number] DAVON OLIVIA JR PATIENT [facility] MAR Jun 20, 2017 [id number] EAMON OLIVIA ERT PATIENT [facility] E Jun 20, 2017 [id number] DAVON OLIVIA JR PATIENT [facility] E Jun 20, 2017 [id number] DAVON OLIVIA JR PATIENT [facility] USP Jun 20, 2017 USP [id number] EAMON OLIVIA ERT PATIENT [facility] Jun 20, 2023 [id number] EAMON OLIVIA ERT PATIENT Selected Encounter This section includes the information on record at [place] for the Encounter. Date/Time Encounter Type Encounter Description Reason Pro vider Source October 25, 2023 09:30 PM Outpatient Encounter PC Nursing (RN / LP) IHE Encounter Template Text not used by [place] Plan of Treatment: Future Appointments (+ 6 months) and Future Tests (+/- 45 days) The Plan of Treatment section includes future care activities for the patient from all [place] treatmentfacilities. This section includes future appointments and future orders which are active, pending or scheduled. Future Appointments This section includes appointments that were scheduled to occur 6 months from the date of the Encounter, up to a maximum of 20 appointments. The data comes from all [place] treatment facilities. Appointment Date/Time Appointment Type Appointme nt Facility Name Dec 26, 2023 11:00 AM AM[facility]ULATORY [facility]ICINE [facility] [place] [facility] Jan 04, 2024 01:00 PM AMBULATORY - NONE [facility] [place] [facility] Feb 02, 2024 03:00 PM [...] AMBULATORY - NONE [facility] [place] [facility] Mar 27, 2024 02:30 PM AMBULATORY - MEDICINE [facility] [place] [facility] Mar 29, 2024 11:00 AM AMBULATORY - REHAB MEDICIN E [facility] [place] [facility] Apr 12, 2024 11:00 AM AMBULATORY - REHAB MEDICIN E [facility] [place] [facility] Apr 26, 2024 09:00 AM AMBULATORY - MEDICINE [facility] [place] [facility] Apr 26, 2024 11:00 AM AMBULATORY - REHAB MEDICIN E [facility] [place] [facility] Lab Results: +/- 30 days of the encounter This section includes the Chemistry and Hematology Lab Results on record with [facility] for the patient. Radiology Reports and Pathology Reports are provided separately, in subsequent sections. Lab Results This section contains the Chemistry/Hematology Results that were resulted 30 days before or 30 daysafter the date of the Encounter. Date/Time Source Result Type Result - Unit Interpretation Reference Range Comment Oct 10, 2023 02:00 PM [place] [facility] [place] [facility] FOLATE (WROX) Specimen Type: SERUM No comment entered. Ordering Provider: LUIS FERNANDO FONTANEZ Report Released Date/Time: Oct 10, 2023 08:28 AM Reporting [facility] [address] [facility] [address] Performing Lab: [facility] [address] [facility] [id number] FOLATE (WROX) 13.68 ng/mL >5.2 Oct 10, 2023 02:00 PM [facility] LIVER FUNCTION Specimen Type: SERUM No comment entered. Ordering Provider: LUIS FERNANDO FONTANEZ Report Released Date/Time: Oct 10, 2023 08:28 AM Reporting Lab: [facility] [address] [facility] [address] Performing Lab: [address] [address] PROTEIN,TOTAL 7.0 g/dL 6.0-8.3 ALBUMIN 3.6 g/dL 3.5-5.0 ALKALINE PHOSPHATASE 77 U/L 40-150 AST 21 U/L 5-34 ALT 14 U/L BILIRUBIN, TOTAL 0.4 mg/dL 0.2-1.2 Oct 10, 2023 02:00 PM [facility] LIPID PANEL, NON FASTING Specimen Type: SERUM No comment entered. Ordering Provider: LUIS FERNANDO FONTANEZ A Report Released Date/Time: Oct 10, 2023 08:28 AM Reporting Lab: [facility] [address] [facility] [address] Performing Lab: [address] [address] CHOLESTEROL 210 mg/dL H TRIGLYCERIDE 84 mg/dL 0-150 LDL calculated 133 mg/dL H 0-129 CHOL/HDL 3.5 HDL CHOLESTEROL 60 mg/dL 40-60 Oct 10, 2023 02:00 PM [facility] VITAMIN D (25-OH) Specimen Type: SERUM No comment entered. Ordering Provider: LUIS FERNANDO FONTANEZ Report Released Date/Time: Oct 10, 2023 08:28 AM Reporting Lab: [address] [address] Performing Lab: [address] [address] VITAMIN D (25-OH) 38 ng/mL 20-50 Oct 10, 2023 02:00 PM [facility] VITAMIN B12 Specimen Type: SERUM No comment entered. Ordering Provider: YOUNG,LUIS FERNANDO A Report Released Date/Time: Oct 10, 2023 08:28 AM Reporting Lab: [place] [facility] [place] [facility] [address] [facility] [address] Performing Lab: [place] [facility] [place] [facility] [address] [facility] [address] VITAMIN B12 767 pg/mL 200-900 Oct 10, 2023 02:00 PM [facility] HEMOGLOBIN A1C PANEL Specimen Type: [...] 2023 08:28 AM Reporting Lab: [facility] [place] [address] [address] Performing Lab: [facility] [address] [address] HEMOGLOBIN A1C 5.3 4.0-5.6 Oct 10, 2023 02:00 PM [facility] TSH Specimen Type: SERUM No comment entered. Ordering Provider: LUIS FERNANDO FONTANEZ Report Released Date/Time: Oct 10, 2023 08:28 AM Reporting Lab: [facility] [place] [address] [address] Performing Lab: [facility] [place] [address] [address] TSH 2.22 u[IU]/mL 0.35-5.00 Oct 10, 2023 02:00 PM [facility] FERRITIN Specimen Type: SERUM No comment entered. Ordering Provider: LUIS FERNANDO FONTANEZ Report Released Date/Time: Oct 10, 2023 08:28 AM Reporting Lab: [facility] [place] [address] [address] Performing Lab: [place] [facility] [address] [address] FERRITIN 106 ng/mL 20-300 Oct 10, 2023 02:00 PM [facility] IRON & TIBC PANEL Specimen Type: SERUM No comment entered. Ordering Provider: LUIS FERNANDO FONTANEZ Report Released Date/Time: Oct 10, 2023 08:28 AM Reporting Lab: [facility] [address] [facility] [address] Performing Lab: [address] [address] TIBC 330 ug/dL 204-475 IRON 102 ug/dL 40-160 Transferrin Saturation 30.9 20.0-50.0 Oct 10, 2023 02:00 PM [facility] CBC AND DIFF (AUTO) Specimen Type: BLOOD No comment entered. Ordering Provider: LUIS FERNANDO FONTANEZ Report Released Date/Time: Oct 10, 2023 08:28 AM Reporting Lab: [address] [address] Performing Lab: [address] [address] WBC 7.10 10*3/uL 4.50-11.00 RBC 5.13 10*6/uL 4.23-5.66 HGB 15.1 g/dL 12.8-17 HCT 45.5 39.2-50.4 MCV 88.7 fL 82-99 MCHC 33.2 g/dL 30.8-35.1 PLT 281 10*3/uL 140-360 RDW-CV 12.9 12.0-16.0 [place], Abs 0.67 10*3/uL 0.30-1.10 MCH 29.4 pg 26.2-32.6 Neut % 61.3 43.7-75.8 Lymph % 27.3 14.0-42.3 [place] % 9.4 5.1-13.7 Eos % 1.3 0.4-6.8 Baso % 0.4 0.1-2.0 Neut, Abs 4.35 10*3/uL 2.20-7.60 Lymph, Abs 1.94 10*3/uL 1.00-3.20 Eos, Abs 0.09 10*3/uL 0.03-0.44 Baso, Abs 0.03 10*3/uL 0.01-0.13 Immature Gran % 0.3 0.0-0.7 Immature Gran, Abs 0.02 10*3/uL 0.00-0.06 Oct 10, 2023 02:00 PM [facility] BASIC METABOLIC PANEL (non-fasting) Specimen Type: SERUM No comment entered. Ordering Provider: LUIS FERNANDO FONTANEZ Report Released Date/Time: Oct 10, 2023 08:28 AM Reporting Lab: [facility] [address] [facility] [address] Performing Lab: [address] [address] UREA NITROGEN 16 mg/dL 7-25 GLUCOSE 82 mg/dL 65-100 SODIUM 139 mmol/L 135-145 POTASSIUM 3.5 mmol/L 3.5-5.0 CHLORIDE 99 mmol/L L 100-110 CO2 31 meq/L H 20-30 CREATININE, Serum 1.17 mg/dL 0.50-1.40 eGFR(CKD-EPI 2020) 65 mL/min >60 Vital Signs: All taken on the encounter date This section contains inpatient and outpatient Vital Signs collected on the date of the Encounter. Date/Time Temperature Pulse Blood Pressure Respiratory Rate SP02 Pain Height Weight Body Mass Index Source October 25, 2023 01:00 PM 97.5 84 134/82 16 100 0 [facility] Social History: Smoking Status (Most current) and Tobacco Use (All prior to encounter date) This section includes the most current, and the historical, smoking and tobacco- related health factors from the [place] facility where the Encounter took place. Current Smoking Status This section includes the most current smoking, or tobacco-related health factor, from the [place] facility where the Encounter took place. Date/Time Current Smoking Status Comment Raghu melchor Jan 19, 2023 12:24 PM VA-TOBACCO NEVER USED [facility] Tobacco Use History This section includes a history of the smoking, or tobacco-related health factors, that were collected on or before the date of the Encounter. The data comes from the [place] facility where the Encounter took place. Date/Time Smoking Status/Tobacco Use Comment F pauility Jan 15, 2021 11:00 AM VA-TOBACCO NEVER USED [facility] Advance Directives: All historical and current Section Date Range: From patient's date of to the date document was created. This section includes ALL of a patient's completed or amended [place] Advance and Rescinded Directives. The entries below indicate that a directive exists for the patient, but an actual copy is not included with this document. The data comes from all [place] facilities. Date Advance Directives Provider Source Jan 20, 2021 ADVANCE DIRECTIVE AALIYAHBENTON Chacko [facility] Encounter Notes: All associated encounter notes This section contains the clinical notes associated to the Encounter. Date/Time Encounter Note(s) Provider Source October 25, 2023 09:30 PM NURSING FALL RISK ASSESSMENT NOTE: LOCAL TITLE: [facility] POST FALL ASSESSMENT NOTE STANDARD TITLE: NURSING FALL RISK ASSESSMENT NOTE DATE OF NOTE: OCTOBER 25, 2023@21:30 ENTRY DATE: OCTOBER 25, 2023@21:31:05 AUTHOR: JENNIFER SEGURA COSIGNER: URGENCY: STATUS: COMPLETED HB FALL ASSESSMENT NOTE Date of Fall: 10/21/23 Time of Fall: 3 PM Adult Neuropsychologist: Jennifer Segura Fall was witnessed: No Description of Fall: Where: TV Room How: Miss judged edge of couch Injury: Yes Location: bruise to left buttock Side: Left Other Information Pertinent to Fall: Level of Injury: 1 = Minor (bruises, scrapes, no increase in level of care) Symptoms Prior to Fall: none Assistive Device in Use at Time of Fall: walking device - walker Contributing Factors at time of fall: none Environmental Factors: none Contributing diagnosis to current fall: neurological (ALS, MS, Parkinson's) If fall occurred while /HB staff was providing direct patient care in the home, report on Joint Patient Safety Reporting Site (JPSR) found on [facility] Intranet home page. No, not applicable Is patient currently receiving PT/OT services: No Pt referred to PT/OT: No Patient Declines NO Interventions: Program Follow-up: Interdisciplinary Team reviews recent falls and modifies Patient's care plan as appropriate. Director Of Instrumental Music (or designee) tracks all falls, observes trends, and modifies Falls Prevention Plan as needed. Fall data is reported to [facility] Patient Planishing Hammer Operator on a quarterly basis. /es/ JENNIFER SEGURA SPOT WORKER [facility] WARD SERVICE SUPERVISOR Signed: 10/25/2023 21:35 Receipt Acknowledged By: 10/26/2023 07:34 /es/ DANIELLE FLORES OTR/L HB OCCUPATIONAL THERAPIST 10/26/2023 09:37 /es/ AMANDO OHARA CHANGE MANAGEMENT COORDINATOR [facility] 10/26/2023 09:51 /es/ KALYAN BARBER [facility] X RAY CONSULTANT 10/31/2023 15:29 /es/ SPRING NEVES, PT [facility] PHYSICAL THERAPIST 10/26/2023 08:51 /es/ RAMIN MENDIETA, PT, MS, ATP HB Physical Therapist 10/26/2023 07:37 /es/ LUIS FERNANDO FONTANEZ SAP BW DEVELOPER-C HB NURSE PRACTITIONER JENNIFER SEGURA [facility]
--- OUTSIDE RECORDS SUMMARY | 2024-05-30 08:34 | XMS_ITS ---
Author Name [facility] [place] [facility] [place] Organization [facility] [place] Address [address] [place] [id number] Care Team Providers Care Inspector Machined Parts Name Role Phone HUSEYIN LUIS FERNANDO Primary [...] PRESCRIPT ION [id number] 1 Jun 20, 2017 [id number] EAMON OLIVIA ERT PATIENT MEDICARE (WNR) MEDICARE (M) PART A Jun 20, 2014 PART A [id number] EAMON OLIVIA ERT PATIENT MEDICARE (WNR) MEDICARE (M) PART B Jun 20, 2014 PART B [id number] EAMON OLIVIA ERT PATIENT MEDICARE (WNR) MEDICARE (M) PART A Jun 20, 2014 PART A [id number] EAMON OLIVIA ERT PATIENT MEDICARE (WNR) MEDICARE (M) PART B Jun 20, 2014 PART B [id number] EAMON OLIVIA ERT PATIENT OPTUM RX PRESCRIPT ION RX Jun 20, 2023 THPRX [id number] EAMON OLIVIA ERT PATIENT [employer] RX PRESCRIPT ION RX Jun 20, 2022 THPRX [id number] [phone] EAMON OLIVIA ERT PATIENT [employer] RX PRESCRIPT ION RX Jun 20, 2022 THPRX [id number] DAVON OLIVIA JR PATIENT [facility] MAR Jun 20, 2017 [id number] EAMON OLIVIA ERT PATIENT [facility] Jun 20, 2017 [id number] DAVON OLIVIA JR PATIENT [facility] E Jun 20, 2017 [id number] DAVON OLIVIA JR PATIENT [facility] PL[facility] USP Jun 20, 2017 USP [id number] [phone] EAMON OLIVIA ERT PATIENT [facility] Jun 20, 2023 [id number] EAMON OLIVIA ERT PATIENT Selected Encounter This section includes the information on record at [place] for the Encounter. 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 Date/Time Primary/Secondary Diagnosis Diagnosis Name Provider Source October 21, 2023 01:17 PM PRIMARY Problem related to unspecified psychosocial circumstances KAMILAH MALCOLM [place] [facility] [place] [facility] Plan of Treatment: Future Appointments (+ 6 months) and Future Tests (+/- 45 days) The Plan of Treatment section includes future care activities for the patient from all [place] treatmentfacilities. This section includes future appointments and future orders which are active, pending or scheduled. Future Appointments This section includes appointments that were scheduled to occur 6 months from the date of the Encounter, up to a maximum of 20 appointments. The data comes from all [place] treatment facilities. Appointment Date/Time Appointment Type Appointme nt Facility Name Dec 26, 2023 11:00 AM AMBULATORY - MEDICINE [facility] [place] [facility] Jan 04, 2024 01:00 PM AMBULATORY - NONE [facility] [place] [facility] Feb 02, 2024 03:00 PM AMBULATORY - REHAB MEDICIN E [facility] [place] [facility] Feb 14, 2024 12:30 PM AMBULATORY - REHAB MEDICIN E [facility] [place] [facility] Mar 15, 2024 10:00 AM AMBULATORY - REHAB MEDICIN E [facility] [place] [facility] Mar 22, 2024 08:00 AM AMBULATORY - MEDICINE [facility] [place] [facility] Mar 22, 2024 01:00 PM AMBULATORY - NONE [facility] [place] [facility] Mar 27, 2024 02:30 PM AMBULATORY - MEDICINE [facility] [place] [facility] Mar 29, 2024 11:00 AM AMBULATORY - REHAB MEDICIN E [facility] [place] [facility] Apr 12, 2024 11:00 AM AMBULATORY - REHAB MEDICIN E [facility] [place] [facility] Lab Results: +/- 30 days of the encounter This section includes the Chemistry and Hematology Lab Results on record with [place] for the patient. Radiology Reports and Pathology Reports are provided separately, in subsequent sections. Lab Results This section contains the Chemistry/Hematology Results that were resulted 30 days before or 30 daysafter the date of the Encounter. Date/Time Source Result Type Result - Unit Interpretation Reference Range Comment Oct 10, 2023 02:00 PM [facility] [place] [facility] FOLATE (WROX) Specimen Type: SERUM No comment entered. Ordering Provider: LUIS FERNANDO FONTANEZ Report Released Date/Time: Oct 10, 2023 08:28 AM Reporting Lab: [facility] [place] [facility] [address] [facility] [address] Performing Lab: [facility] [address] [facility] [address] FOLATE (WROX) 13.68 ng/mL >5.2 Oct 10, 2023 02:00 PM [facility] LIVER FUNCTION Specimen Type: SERUM No comment entered. Ordering Provider: LUIS FERNANDO FONTANEZ Report Released Date/Time: Oct 10, 2023 08:28 AM Reporting Lab: [facility] [address] [facility] [address] Performing Lab: [facility] [address] [facility] [address] PROTEIN,TOTAL 7.0 g/dL 6.0-8.3 ALBUMIN 3.6 g/dL 3.5-5.0 ALKALINE PHOSPHATASE 77 U/L 40-150 AST 21 U/L 5-34 ALT 14 U/L BILIRUBIN, TOTAL 0.4 mg/dL 0.2-1.2 Oct 10, 2023 02:00 PM [facility] LIPID PANEL, NON FASTING Specimen Type: SERUM No comment entered. Ordering Provider: LUIS FERNANDO FONTANEZ Report Released Date/Time: Oct 10, 2023 08:28 AM Reporting Lab: [facility] [address] [facility] [address] Performing Lab: [facility] [address] [facility] [address] CHOLESTEROL 210 mg/dL H TRIGLYCERIDE 84 mg/dL 0-150 LDL calculated 133 mg/dL H 0-129 CHOL/HDL 3.5 HDL CHOLESTEROL 60 mg/dL 40-60 Oct 10, 2023 02:00 PM [facility] VITAMIN D (25-OH) Specimen Type: SERUM No comment entered. Ordering Provider: LUIS FERNANDO FONTANEZ Report Released Date/Time: Oct 10, 2023 08:28 AM Reporting Lab: [facility] [address] [facility] [address] Performing Lab: [address] [address] VITAMIN D (25-OH) 38 ng/mL 20-50 Oct 10, 2023 02:00 PM [facility] VITAMIN B12 Specimen Type: SERUM No comment entered. Ordering Provider: LUIS FERNANDO FONTANEZ Report Released Date/Time: Oct 10, 2023 08:28 AM Reporting Lab: [facility] [place] [facility] [address] [facility] [address] Performing Lab: [facility] [address] [facility] [address] VITAMIN B12 767 pg/mL 200-900 Oct 10, 2023 02:00 PM [facility] HEMOGLOBIN A1C PANEL Specimen Type: BLOOD [...] Oct 10, 2023 08:28 AM Reporting Lab: [facility] [place] [facility] [address] [facility] [address] Performing Lab: [facility] [address] [address] HEMOGLOBIN A1C 5.3 4.0-5.6 Oct 10, 2023 02:00 PM [facility] TSH Specimen Type: SERUM No comment entered. Ordering Provider: LUIS FERNANDO FONTANEZ Report Released Date/Time: Oct 10, 2023 08:28 AM Reporting Lab: [facility] [place] [facility] [address] [facility] [address] Performing Lab: [facility] [address] [address] TSH 2.22 u[IU]/mL 0.35-5.00 Oct 10, 2023 02:00 PM [facility] FERRITIN Specimen Type: SERUM No comment entered. Ordering Provider: LUIS FERNANDO FONTANEZ Report Released Date/Time: Oct 10, 2023 08:28 AM Reporting Lab: [facility] [address] [facility] [address] Performing Lab: [facility] [address] [facility] [address] FERRITIN 106 ng/mL 20-300 Oct 10, 2023 02:00 PM [facility] IRON & TIBC PANEL Specimen Type: SERUM No comment entered. Ordering Provider: LUIS FERNANDO FONTANEZ Report Released Date/Time: Oct 10, 2023 08:28 AM Reporting Lab: [facility] [address] [facility] [address] Performing Lab: [address] [address] TIBC 330 ug/dL 204-475 IRON 102 ug/dL 40-160 Transferrin Saturation 30.9 20.0-50.0 Oct 10, 2023 02:00 PM [facility] CBC AND DIFF (AUTO) Specimen Type: BLOOD No comment entered. Ordering Provider: LUIS FERNANDO FONTANEZ Report Released Date/Time: Oct 10, 2023 08:28 AM Reporting Lab: [facility] [address] [facility] [address] Performing Lab: [address] [address] WBC 7.10 10*3/uL 4.50-11.00 RBC 5.13 10*6/uL 4.23-5.66 HGB 15.1 g/dL 12.8-17 HCT 45.5 39.2-50.4 MCV 88.7 fL 82-99 MCHC 33.2 g/dL 30.8-35.1 PLT 281 10*3/uL 140-360 RDW-CV 12.9 12.0-16.0 [place], Abs 0.67 10*3/uL 0.30-1.10 MCH 29.4 pg 26.2-32.6 Neut % 61.3 43.7-75.8 Lymph % 27.3 14.0-42.3 [place] % 9.4 5.1-13.7 Eos % 1.3 0.4-6.8 Baso % 0.4 0.1-2.0 Neut, Abs 4.35 10*3/uL 2.20-7.60 Lymph, Abs 1.94 10*3/uL 1.00-3.20 Eos, Abs 0.09 10*3/uL 0.03-0.44 Baso, Abs 0.03 10*3/uL 0.01-0.13 Immature Gran % 0.3 0.0-0.7 Immature Gran, Abs 0.02 10*3/uL 0.00-0.06 Oct 10, 2023 02:00 PM [facility] BASIC METABOLIC PANEL (non-fasting) Specimen Type: SERUM No comment entered. Ordering Provider: LUIS FERNANDO FONTANEZ Report Released Date/Time: Oct 10, 2023 08:28 AM Reporting Lab: [facility] [address] [facility] [address] Performing Lab: [address] [address] UREA NITROGEN 16 mg/dL 7-25 GLUCOSE 82 [...] and tobacco- related health factors from the [place] facility where the Encounter took place. Current Smoking Status This section includes the most current smoking, or tobacco-related health factor, from the [place] facility where the Encounter took place. Date/Time Current Smoking Status Comment Facil ity Jan 19, 2023 12:24 PM [place]-TOBACCO NEVER USED [facility] Tobacco Use History This section includes a history of the smoking, or tobacco-related health factors, that were collected on or before the date of the Encounter. The data comes from the [place] facility where the Encounter took place. Date/Time Smoking Status/Tobacco Use Comment F acility Jan 15, 2021 11:00 AM [place]-TO[place]AC[place] NEVER USED [facility] Advance Directives: All historical and current Section Date Range: From patient's date of to the date document was created. This section includes ALL of a patient's completed or amended [place] Advance and Rescinded Directives. The entries below indicate that a directive exists for the patient, but an actual copy is not included with this document. The data comes from all [place] facilities. Date Advance Directives Provider Source Jan 20, 2021 ADVANCE DIRECTIVE [facility] ARA[facility] Encounter Notes: All associated encounter notes This section contains the clinical notes associated to the Encounter. Date/Time Encounter Note(s) Provider Source October 21, 2023 10:00 AM [facility] E & M NOTE: LOCAL TITLE: [facility] SOCIAL WORK NOTE STANDARD TITLE: [facility] E & M NOTE DATE OF NOTE: OCTOBER 21, 2023@10:00 ENTRY DATE: OCTOBER 21, 2023@13:17:28 AUTHOR: KAMILAH MALCOLM COSIGNER: URGENCY: STATUS: COMPLETED Length of visit: 30 Minutes The was identified by name and . The is dealing with Parkinson's Disease, Insomnia, incontinence, and Memory Loss. The was seen today for a supportive visit. [facility] SW met with both and spouse in the living room area. The was in the recliner napping on and off. The reported that there are no new needs and that thing continues to go well with the supports in place. The spouse reported the same things. The spouse stated that they are waiting for the bathroom ramp/transition device to be installed prior to the being able to use the remolded bathroom. She stated that they were supposed to contact her this week to install but she is waiting for the call for installment. 's Male INSULATION POWER UNIT TENDER is leaving next week and the agency will replace with make INSULATION POWER UNIT TENDER who has previously worked with family. Spouse is not pleased about the Male staff but willing to give the situation a try to meet the 's needs. Spouse expressed increased incontinence and trying to climb out of bed nightly, which impacts her sleep. Spouse stated that may be dealing with lingering effects of Covid, with coughing, which also is a factor in him getting up at night. She confirmed Neurology appt occurred on October [address] Donahue and there were some medication changes. She stated that future Neurology appts will occur via [facility] due to challenges getting the to medical appts. Spouse reported that the eats well, drinks well. Spouse confirmed that she is connected to [facility]. She stated that she does not have scheduled caregiver support sessions or meeting as she does not have time for this. She stated that she has all of the resources and strategies needed. She stated that she is wrapping up a breathing program call [employer] that is assisting in healthy coping. She stated that her new bird and his chirping noises and energy assist with her coping with caregiver stress and burden as well. Caregiver expressed no new needs for SW at this time. Caregiver verbized no need for bi-monthly supportive visits at this time. She stated that she is fine with next visit being annual [facility] SW assessment. She stated that she will contact [facility] SW with any new concerns or needs. /sharron/ OLEG Sandhu [facility] Electrostatic Powder Coating Technician Signed: 10/21/2023 13:32 Receipt Acknowledged By: 10/24/2023 08:00 /sharron/ JENNIFER SEGURA RN BSN [facility] SIGNAL AND COMMUNICATIONS MAINTAINER [place]AMILAH MALCOLM [place] [facility]
--- OUTSIDE RECORDS SUMMARY | 2024-05-30 08:34 | XMS_ITS ---
Author Name Department of [facility] Affairs ([place]) Organization [facility] Address [address] [address] Care Team Providers Care Gas Meter Checker Name Role Phone HUSEYIN LUIS FERNANDO Primary Care Provider Unavailabl e AMANDO OHARA Unavailable Unavailable RARAMIN KEYES Unavailable Unavailable SUNIL, KALYAN Unavailable Unavailable GOLD, DAMANIVAL Unavailable Unavailable [...] SIMS ION [id number] 1 Jun 20, 2017 [id number] [phone] EAMON OLIVIA ERT PATIENT MEDICARE (WNR) MEDICARE (M) PART A Jun 20, 2014 PART A [id number] EAMON OLIVIA ERT PATIENT MEDICARE (WNR) MEDICARE (M) PART B Jun 20, 2014 PART B [id number] EAMON OLIVIA ERT PATIENT MEDICARE (WNR) MEDICARE (M) PART B Jun 20, 2014 PART B [id number] [phone] EAMON OLIVIA ERT PATIENT MEDICARE (WNR) MEDICARE (M) PART A Jun 20, 2014 PART A [id number] EAMON OLIVIA ERT PATIENT OPTUM RX PRESCRIPT ION RX Jun 20, 2023 THPRX [id number] EAMON OLIVIA ERT PATIENT OPTUM RX PRESCRIPT ION RX Jun 20, 2022 THPRX [id number] [phone] EAMON OLIVIA ERT PATIENT OPTUM RX PRESCRIPT ION RX Jun 20, 2022 THPRX [id number] DAVON OLIVIA JR PATIENT [facility] Jun 20, 2017 [id number] EAMON OLIVIA ERT PATIENT [facility] Jun 20, 2017 [id number] DAVON OLIVIA JR PATIENT [facility] T[facility] E Jun 20, 2017 [id number] DAVON OLIVIA JR PATIENT [facility] USP Jun 20, 2017 [id number] EAMON OLIVIA ERT PATIENT [facility] Jun 20, 2023 [id number] EAMON OLIVIA ERT PATIENT Selected Encounter This section includes the information on record at CT for the Encounter. Date/Time Encounter Type Encounter Description Reason Provider Source October 25, 2023 01:00 PM SELF CARE MNGMENT TRAINING [facility] Nursing (RN / LP) ICD-10-CM G20.A1 Parkinson's dis w/o dyskinesia, w/o mention of fluctuations RISING,HEATHE R L E Encounter Template Text not used by CT Assessments - Encounter Diagnoses This section includes the primary and secondary diagnoses documented for the Encounter. Date/Time Primary/Secondary Diagnosis Diagnosis Name Provider Source October 26, 2023 08:59 AM PRIMARY Parkinson's dis w/o dyskinesia, w/o mention of fluctuations RISING,HEATHE R L [facility] [place] [facility] October 26, 2023 08:59 AM SECONDARY Hematuria, unspecified RISING,HEATHE R L [facility] [place] [facility] October 26, 2023 08:59 AM SECONDARY Unspecified atrial fibrillation RISING,JIE R L [facility] [place] [facility] Plan of Treatment: Future Appointments (+ 6 months) and Future Tests (+/- 45 days) The Plan of Treatment section includes future care activities for the patient from all CT treatmentfacilities. This section includes future appointments and future orders which are active, pending or scheduled. Future Appointments This section includes appointments that were scheduled to occur 6 months from the date of the Encounter, up to a maximum of 20 appointments. The data comes from all CT treatment facilities. Appointment Date/Time Appointment Type Appointme nt Facility Name Dec 26, 2023 11:00 AM AMBULATORY - MEDICINE [facility] [place] [facility] Jan 04, 2024 01:00 PM AMBULATORY - NONE [facility] [place] [facility] Feb 02, 2024 03:00 PM AMBULATORY - REHAB MEDICIN E [facility] [place] [facility] Feb 14, 2024 12:30 PM AMBULATORY - REHAB MEDICIN E [facility] [place] [facility] Mar 15, 2024 10:00 AM AMBULATORY - REHAB MEDICIN E [facility] [place] [facility] Mar 22, 2024 08:00 AM AMBULATORY - MEDICINE [facility] [place] [facility] Mar 22, 2024 01:00 PM AMBULATORY - NONE [facility] [place] [facility] Mar 27, 2024 02:30 PM AMBULATORY - MEDICINE [facility] [place] [facility] Mar 29, 2024 11:00 AM AMBULATORY - REHAB MEDICIN E [facility] [place] [facility] Apr 12, 2024 11:00 AM AMBULATORY - REHAB MEDICIN E [facility] [place] [facility] Apr 26, 2024 09:00 AM AMBULATORY - MEDICINE [facility] [place] [facility] Apr 26, 2024 11:00 AM AMBULATORY - REHAB MEDICIN E [facility] [place] [facility] Lab Results: +/- 30 days [...] Range Comment Oct 10, 2023 02:00 PM [facility] FOLATE (WROX) Specimen Type: SERUM No comment entered. Ordering Provider: LUIS FERNANDO FONTANEZ Report Released Date/Time: Oct 10, 2023 08:28 AM Reporting [facility] [address] [facility] [address] Performing Lab: [facility] [address] [facility] [address] FOLATE (WROX) 13.68 ng/mL >5.2 Oct 10, 2023 02:00 PM [facility] LIVER FUNCTION Specimen Type: SERUM No comment entered. Ordering Provider: LUIS FERNANDO FONTANEZ Report Released Date/Time: Oct 10, 2023 08:28 AM Reporting Lab: [facility] [address] [facility] [address] Performing Lab: [facility] [address] [facility] [address] PROTEIN,TOTAL 7.0 g/dL 6.0-8.3 ALBUMIN 3.6 g/dL 3.5-5.0 ALKALINE PHOSPHATASE 77 U/L 40-150 AST 21 U/L 5-34 ALT 14 U/L BILIRUBIN, TOTAL 0.4 mg/dL 0.2-1.2 Oct 10, 2023 02:00 PM [facility] LIPID PANEL, NON FASTING Specimen Type: SERUM No comment entered. Ordering Provider: LUIS FERNANDO FONTANEZ Report Released Date/Time: Oct 10, 2023 08:28 AM Reporting Lab: [facility] [address] [facility] [address] Performing Lab: [facility] [address] [facility] [address] CHOLESTEROL 210 mg/dL H TRIGLYCERIDE 84 mg/dL 0-150 LDL calculated 133 mg/dL H 0-129 CHOL/HDL 3.5 HDL CHOLESTEROL 60 mg/dL 40-60 Oct 10, 2023 02:00 PM [facility] VITAMIN D (25-OH) Specimen Type: SERUM No comment entered. Ordering Provider: LUIS FERNANDO FONTANEZ Report Released Date/Time: Oct 10, 2023 08:28 AM Reporting [facility]: [facility] [address] [facility] [address] Performing Lab: [facility] [address] [facility] [address] VITAMIN D (25-OH) 38 ng/mL 20-50 Oct 10, 2023 02:00 PM [facility] VITAMIN B12 Specimen Type: SERUM No comment entered. Ordering Provider: LUIS FERNANDO FONTANEZ Report Released Date/Time: Oct 10, 2023 08:28 AM Reporting Lab: [facility] [address] [facility] [address] Performing Lab: [facility] [address] VITAMIN B12 767 pg/mL 200-900 Oct 10, 2023 02:00 PM [facility] HEMOGLOBIN A1C PANEL Specimen Type: BLOOD [...] Oct 10, 2023 08:28 AM Reporting Lab: [facility] [address] [facility] [address] Performing Lab: [address] [address] HEMOGLOBIN A1C 5.3 4.0-5.6 Oct 10, 2023 02:00 PM [facility] TSH Specimen Type: SERUM No comment entered. Ordering Provider: LUIS FERNANDO FONTANEZ Report Released Date/Time: Oct 10, 2023 08:28 AM Reporting Lab: [facility] [place] [facility] [address] [facility] [address] Performing Lab: [facility] [place] [facility] [address] [facility] [address] TSH 2.22 u[IU]/mL 0.35-5.00 Oct 10, 2023 02:00 PM [facility] FERRITIN Specimen Type: SERUM No comment entered. Ordering Provider: LUIS FERNANDO FONTANEZ Report Released Date/Time: Oct 10, 2023 08:28 AM Reporting Lab: [facility] [place] [facility] [address] [facility] [address] Performing Lab: [facility] [address] [address] FERRITIN 106 ng/mL 20-300 Oct 10, 2023 02:00 PM [facility] IRON & TIBC PANEL Specimen Type: SERUM No comment entered. Ordering Provider: LUIS FERNANDO FONTANEZ Report Released Date/Time: Oct 10, 2023 08:28 AM Reporting Lab: [facility] [address] [facility] [address] Performing Lab: [facility] [address] [facility] [address] TIBC 330 ug/dL 204-475 IRON 102 ug/dL 40-160 Transferrin Saturation 30.9 20.0-50.0 Oct 10, 2023 02:00 PM [facility] CBC AND DIFF (AUTO) Specimen Type: BLOOD No comment entered. Ordering Provider: LUIS FERNANDO FONTANEZ Report Released Date/Time: Oct 10, 2023 08:28 AM Reporting Lab: [facility] [address] [facility] [address] Performing Lab: [facility] [address] [address] WBC 7.10 10*3/uL 4.50-11.00 RBC 5.13 10*6/uL 4.23-5.66 HGB 15.1 g/dL 12.8-17 HCT 45.5 39.2-50.4 MCV 88.7 fL 82-99 MCHC 33.2 g/dL 30.8-35.1 PLT 281 10*3/uL 140-360 RDW-CV 12.9 12.0-16.0 Mclennan, Abs 0.67 10*3/uL 0.30-1.10 MCH 29.4 pg 26.2-32.6 Neut % 61.3 43.7-75.8 Lymph % 27.3 14.0-42.3 Mclennan % 9.4 5.1-13.7 Eos % 1.3 0.4-6.8 Baso % 0.4 0.1-2.0 Neut, Abs 4.35 10*3/uL 2.20-7.60 Lymph, Abs 1.94 10*3/uL 1.00-3.20 Eos, Abs 0.09 10*3/uL 0.03-0.44 Baso, Abs 0.03 10*3/uL 0.01-0.13 Immature Gran % 0.3 0.0-0.7 Immature Gran, Abs 0.02 10*3/uL 0.00-0.06 Oct 10, 2023 02:00 PM [facility] BASIC METABOLIC PANEL (non-fasting) Specimen Type: SERUM No comment entered. Ordering Provider: LUIS FERNANDO FONTANEZ Report Released Date/Time: Oct 10, 2023 08:28 AM Reporting Lab: [facility] [address] [facility] [address] Performing Lab: [address] [address] UREA NITROGEN 16 mg/dL 7-25 GLUCOSE 82 [...] PM 97.5 84 134/[address] [facility] Social History: Smoking Status (Most current) and Tobacco Use (All prior to encounter date) This section includes the most current, and the historical, smoking and tobacco- related health factors from the CT facility where the Encounter took place. Current Smoking Status This section includes the most current smoking, or tobacco-related health factor, from the CT facility where the Encounter took place. Date/Time Current Smoking Status Comment Facil ity Jan 19, 2023 12:24 PM VA-TOBACCO NEVER USED [facility] Tobacco Use History This section includes a history of the smoking, or tobacco-related health factors, that were collected on or before the date of the Encounter. The data comes from the CT facility where the Encounter took place. Date/Time Smoking Status/Tobacco Use Comment F acility Jan 15, 2021 11:00 AM VA-TOBACCO NEVER USED [facility] Advance Directives: All historical and current Section Date Range: From patient's date of to the date document was created. This section includes ALL of a patient's completed or amended CT Advance and Rescinded Directives. The entries below indicate that a directive exists for the patient, but an actual copy is not included with this document. The data comes from all CT facilities. Date Advance Directives Provider Source Jan 20, 2021 ADVANCE DIRECTIVE [facility] Encounter Notes: All associated encounter notes This section contains the clinical notes associated to the Encounter. Date/Time Encounter Note(s) Provider Source October 26, 2023 02:02 PM ADDENDUM: LOCAL TITLE: Addendum STANDARD TITLE: ADDENDUM DATE OF NOTE: OCTOBER 26, 2023@14:02:32 ENTRY DATE: OCTOBER 26, 2023@14:02:32 AUTHOR: LUIS FERNANDO FONTANEZ EXP COSIGNER: URGENCY: STATUS: COMPLETED pcp agrees with LEXIE naomi for RNCM to place consult /sharron/ LUIS FERNANDO FONTANEZ DETAIL TECHNICIAN-C [facility] NURSE PRACTITIONER Signed: 10/26/2023 14:02 Receipt Acknowledged By: 10/26/2023 17:43 /sharron/ JENNIFER SEGURA RN BSN [facility] SIGNAL TOWER OPERATOR --- Original Document --- 10/25/23 HB RN PROGRESS NOTE: Nursing Progress Note Active and Recently Outpatient Medications (including Supplies): Active Outpatient Medications Status 1) APIXABAN 5MG TAB TAKE ONE TABLET BY MOUTH EVERY 12 ACTIVE HOURS FOR ATRIAL FIBRILLATION 2) ARTIFICIAL SALIVA ORAL SPRAY, 2 SPRAYS BY MOUTH ACTIVE (S) EVERY 2 HOURS NEEDED FOR DRY MOUTH (USE DIRECTED) 3) CARBIDOPA 25/LEVODOPA 100MG SA TAB TAKE 1 TABLET BY ACTIVE (S) MOUTH FOUR TIMES A DAY 4) CARBIDOPA 25/LEVODOPA 100MG TAB TAKE 1 TABLET BY ACTIVE (S) MOUTH FOUR TIMES A DAY 5) CHLORHEXIDINE GLUCONATE 0.12% MOUTHWASH RINSE 15ML BY ACTIVE MOUTH ONCE DAILY FOR INFLAMMATION OF THE GUMS - SWISH AND SPIT. DO NOT SWALLOW 6) CHOLECALCIF 25MCG (D3-1,000UNIT) TAB TAKE ONE TABLET ACTIVE BY MOUTH ONCE DAILY FOR VITAMIN SUPPLEMENTATION 7) DIAPER ADULT LARGE EXTRA ABSORBENT USE 1 BRIEF ACTIVE DIRECTED THREE TIMES A DAY INCONTINENCE 8) FAMOTIDINE 20MG TAB TAKE ONE TABLET BY MOUTH ONCE ACTIVE DAILY FOR STOMACH ACID 9) HYDROCHLOROTHIAZIDE 25MG TAB TAKE ONE TABLET BY MOUTH ACTIVE ONCE DAILY FOR HIGH BLOOD PRESSURE 10) HYDROPHILIC (EQV EUCERIN) TOP CREAM APPLY A LIBERAL ACTIVE AMOUNT TOPICALLY ONCE DAILY FOR DRY SKIN 11) HYDROXYZINE HCL 10MG TAB TAKE ONE TABLET BY MOUTH AT ACTIVE BEDTIME NEEDED FOR ANXIETY 12) INCONT LINER PREVAIL GUARDS #[id number] USE 1 LINER ACTIVE TOPICALLY TWO TIMES A DAY 13) INCONT LINER,MENS X-HVY SURECARE #[id number] USE 1 LINER HOLD TOPICALLY AT BEDTIME 14) INCONTINENCE WRAP,MALE USE 1 INCONTINENCE WRAP ACTIVE (S) TOPICALLY AT BEDTIME 15) MELATONIN 5MG CAP/TAB TAKE FOUR CAPSULE/TABLETS BY ACTIVE MOUTH AT BEDTIME FOR INSOMNIA 16) MEMANTINE HCL 10MG TAB TAKE ONE TABLET BY MOUTH TWICE ACTIVE DAILY FOR ALZHEIMERS DISEASE 17) MIDODRINE HCL 5MG TAB TAKE ONE TABLET BY MOUTH THREE ACTIVE TIMES DAILY NEEDED FOR LOW BLOOD PRESSURE 18) MULTIVITAMIN/MINERALS CAP/TAB TAKE 1 TABLET BY MOUTH ACTIVE ONCE DAILY FOR VITAMIN SUPPLEMENTATION FOR VITAMIN [...] DAILY FOR PARKINSON'S DISEASE 23) UNDERPAD,BED ULTRASORB [id number] USE 2 UNDERPADS ACTIVE TOPICALLY AT BEDTIME Active Non-VA Medications Status 1) Non-VA DOCUSATE NA 100MG CAP 100MG BY MOUTH ONCE ACTIVE DAILY NEEDED 2) Non-VA LORAZEPAM 0.5MG TAB 0.5MG BY MOUTH ONCE DAILY ACTIVE NEEDED 25 Total Medications MEDICATION REVIEW Medication review completed during home visit. The was given the opportunity to discuss and ask questions about all prescription medications as well as dietary and herbal supplements, vitamins, OTC medications, etc. Currently the is taking his/her medications as per the active orders in the electronic record. A copy of the active medication list was left in patient's home at time of visit. identified by: Full Name, Facial Recognition Length of visit in home: 60 minutes Problem addressed for this visit: PD, med review, fall Specimen(s) collected during this visit: None NURSING SUMMARY: RNCM made home visit for chronic disease management, neuro assessment, c/v and c/p assessment. [place] sitting in the TV room upon arrival. RNCM sat with spouse at the kitchen table and discussed concerns and changes this past month. [place] had EKG done. Showed first degree AV heart block. [place] wearing zio heart monitor for 14 days and spouse to mail back when 14 days is up. Zio patch applied on Sep. and spouse Educated on its use and how to press the event button if symptomatic. Inquired if has been complaining of palpations, heart racing, chest pain and is he pushing the button when having episodes. Spouse states he never complains. seen by Neurologist Dr. Fabby Sun on 10/19/23. Spouse reports MD increased his Carbidopa-Levodopa SA 25-100mg 1 tab 4 x daily 7am, 1pm, 7pm, 11pm and started him on glycopyrrolate. Per med list that RNCM printed morning of 10/25/23 CT pharmacy discontinues old script and added Carbidopa-Levodopa SA 25- 100mg 1 tab once daily and glycopyrrolate [facility]-Levodopa SA 25-100mg 1 tab once daily. Neurologist faxed [facility] pharmacy new scripts. RNCM called CT pharmacy and they received new scripts and they fixed Carbidopa-Levodopa SA 25-100mg 1 tab 4 x daily and explained glycopyrrolate is non formulary and they need neurologist to complete non formulary form and fax it to [facility] pharmacy. Per CT pharmacy they emailed Rakel at neurologist office and waiting for form. RNCM requested neurology note to be faxed to CT. Spouse reports fell last Tuesday10/21/23 he was in the TV room and he went to sit on the couch and misjudge the edge of the couch. Spouse reports he was using walker and having increase wandering episodes in the home. Spouse was able to use transportable lift she has to get him up. Discussed ordering bed and chair alarm to decrease fall risk. She declined. sustained bruise to left buttock. Bruise resolving. No other injuries. Reviewed [place] is on blood thinner and if he hits his head he needs to go to the local hospital to be evaluated. [facility] PCP is working to get [place] off blood thinner. Risk vs benefit. Spouse asking for [facility] PT to look into when Singh is coming back to put in the threshold for the shower. unable to shower until threshold is put in. Spouse asking for [facility] PT to order foot drop lightweight brace for sleeping. Spouse printed out a picture for what she is looking for with name of the company, SKU and size. Will give print out to [facility] PT next IDT. Notified that [facility] PT may not be able to order this particular brace. [facility] PT to review and make recommendations. [place] had 24 hour urine collection in August [address] Davis. Spouse reports no hematuria this past 3 weeks. Spouse reports calcium in urine and on a low oxalate diet. Spouse requesting [facility] RD to make recommendations of low oxalate diet. manages and administers meds in pudding or applesauce, swallowing pills without difficulty. RNCM printed med list this am but needs to be updated again. Will bring next visit. Spouse is very knowledgeable on medication regimen. [place] is taking Melatonin 15 mg at bedtime. Melatonin is listed as 20 mg in med list. Med list will need to be updated. Spouse reports [place] is having sleep apnea and requesting overnight oximetry. RNCM will put in consult if [facility] PCP agrees. Difficulty swallowing, now cutting up food into small pieces, tolerating well. No choking episodes this IDT. Blood Pressure: 134/82 (10/25/2023 13:00) Pulse: 84 (10/25/2023 13:00) Respiration: 16 (10/25/2023 13:00) Temperature: 97.5 F [36.4 C] (10/25/2023 13:00) Pain Score: 0 (10/25/2023 13:00) EXAMINATION: Lungs: Ls clear throughout. Resp easy and reg. Edema: PPP, No edema HR: Strong and reg. Denies chest pain, palpations, dizziness. Bowel/Bladder: Incontinent of urine. uses quick change urine management wrap with oversized poise pad. Occasional incontinence of stool. Denies diarrhea/constipation. Skin: Clean, dry and intact. No skin breakdown Home Safety FALLS YES INFECTIONS NO ER/HOSPITALIZATIONS NO Teaching/goals: Refer to nursing summary. [place] goal is to live at home safely with his as long as possible with assist from his and HB, SEMI DRIVER Patient verbalizes understanding to above and will call with any concerns or changes in condition. For emergent care call 911. Revisit: 11/27 for chronic disease management, neuro assessment, c/v an dc/p assessment, med review, /consuelo SEGURA SHELLFISH SORTER [facility] SIGNAL TOWER OPERATOR Signed: 10/26/2023 08:59 Receipt Acknowledged By: 10/26/2023 13:46 /es/ LUIS FERNANDO FONTANEZ DETAIL TECHNICIAN-C [facility] NURSE PRACTITIONER 10/26/2023 ADDENDUM STATUS: COMPLETED Spouse asking for [facility] PT to look into when Singh is coming back to put in the threshold for the shower. [place] unable to shower until threshold is put in. Spouse asking for [facility] PT to order foot drop lightweight brace for sleeping. Spouse printed out a picture for what she is looking for with name of the company, SKU and size. Will give print out to [facility] PT next IDT. Notified that [facility] PT may not be able to order this particular brace. [facility] PT to review and make recommendations. /sharron/ ZACHARIAH SWIFTN [facility] SIGNAL TOWER OPERATOR Signed: 10/26/2023 09:03 Receipt Acknowledged By: 10/26/2023 09:05 /es/ RAMIN MENDIETA, PT, MS, ATP HB Physical Therapist 10/26/2023 ADDENDUM STATUS: COMPLETED [place] had 24 hour urine collection in August [address] Davis. Spouse reports no hematuria this past 3 weeks. Spouse reports calcium in urine and on a low oxalate diet. Spouse requesting [facility] RD to make recommendations of low oxalate diet. /ZACHARIAH RodriguezN [facility] SIGNAL TOWER OPERATOR Signed: 10/26/2023 09:04 Receipt Acknowledged By: 10/26/2023 13:04 /es/ RIGO FENTON, MS, RDN, LDN Staff Dietitian LUIS FERNANDO FONTANEZ [facility] October 26, 2023 09:03 AM ADDENDUM: LOCAL TITLE: Addendum STANDARD TITLE: ADDENDUM DATE OF NOTE: OCTOBER 26, 2023@09:03:51 ENTRY DATE: OCTOBER 26, 2023@09:03:52 AUTHOR: RISING,JENNIFER L EXP COSIGNER: URGENCY: STATUS: COMPLETED had 24 hour urine collection in August [address] Davis. Spouse reports no hematuria this past 3 weeks. Spouse reports calcium in urine and on a low oxalate diet. Spouse requesting [facility] RD to make recommendations of low oxalate diet. /es/ JENNIFER SEGURA SHELLFISH SORTER HB SIGNAL TOWER OPERATOR Signed: 10/26/2023 09:04 Receipt Acknowledged By: 10/26/2023 13:04 /es/ RIGO FENTON MS, RDN, LDN Staff Dietitian --- Original Document --- 10/25/23 MARILIN RN PROGRESS NOTE: Nursing Progress Note Active and Recently Outpatient Medications (including Supplies): Active Outpatient Medications Status 1) APIXABAN 5MG TAB TAKE ONE TABLET BY MOUTH EVERY 12 ACTIVE HOURS FOR ATRIAL FIBRILLATION 2) ARTIFICIAL SALIVA ORAL SPRAY, 2 SPRAYS BY MOUTH ACTIVE (S) EVERY 2 HOURS NEEDED FOR DRY MOUTH (USE DIRECTED) 3) CARBIDOPA 25/LEVODOPA 100MG SA TAB TAKE 1 TABLET BY ACTIVE (S) MOUTH FOUR TIMES A DAY 4) CARBIDOPA 25/LEVODOPA 100MG TAB TAKE 1 TABLET BY ACTIVE (S) MOUTH FOUR TIMES A DAY 5) CHLORHEXIDINE GLUCONATE 0.12% MOUTHWASH RINSE 15ML BY ACTIVE MOUTH ONCE DAILY FOR INFLAMMATION OF THE GUMS - SWISH AND SPIT. DO NOT SWALLOW 6) CHOLECALCIF 25MCG (D3-1,000UNIT) TAB TAKE ONE TABLET ACTIVE BY MOUTH ONCE DAILY FOR VITAMIN SUPPLEMENTATION 7) DIAPER ADULT LARGE EXTRA ABSORBENT USE 1 BRIEF ACTIVE DIRECTED THREE TIMES A DAY INCONTINENCE 8) FAMOTIDINE 20MG TAB TAKE ONE TABLET BY MOUTH ONCE ACTIVE DAILY FOR STOMACH ACID 9) HYDROCHLOROTHIAZIDE 25MG TAB TAKE ONE TABLET BY MOUTH ACTIVE ONCE DAILY FOR HIGH BLOOD PRESSURE 10) HYDROPHILIC (EQV EUCERIN) TOP CREAM APPLY A LIBERAL ACTIVE AMOUNT TOPICALLY ONCE DAILY FOR DRY SKIN 11) HYDROXYZINE HCL 10MG TAB TAKE ONE TABLET BY MOUTH AT ACTIVE BEDTIME NEEDED FOR ANXIETY 12) INCONT LINER PREVAIL GUARDS #[id number] USE 1 LINER ACTIVE TOPICALLY TWO TIMES A DAY 13) INCONT LINER,MENS X-HVY SURECARE #[id number] USE 1 LINER HOLD TOPICALLY AT BEDTIME 14) INCONTINENCE WRAP,MALE USE 1 INCONTINENCE WRAP ACTIVE (S) TOPICALLY AT BEDTIME 15) MELATONIN 5MG CAP/TAB TAKE FOUR CAPSULE/TABLETS BY ACTIVE MOUTH AT BEDTIME FOR INSOMNIA 16) MEMANTINE HCL 10MG TAB TAKE ONE TABLET BY MOUTH TWICE ACTIVE DAILY FOR ALZHEIMERS DISEASE 17) MIDODRINE HCL 5MG TAB TAKE ONE TABLET BY MOUTH THREE ACTIVE TIMES DAILY NEEDED FOR LOW BLOOD PRESSURE 18) MULTIVITAMIN/MINERALS CAP/TAB TAKE 1 TABLET BY MOUTH ACTIVE ONCE DAILY FOR VITAMIN SUPPLEMENTATION FOR VITAMIN [...] DAILY FOR PARKINSON'S DISEASE 23) UNDERPAD,BED ULTRASORB [id number] M#[id number] USE 2 UNDERPADS ACTIVE TOPICALLY AT BEDTIME Active Non-VA Medications Status 1) Non-VA DOCUSATE NA 100MG CAP 100MG BY MOUTH ONCE ACTIVE DAILY NEEDED 2) Non-VA LORAZEPAM 0.5MG TAB 0.5MG BY MOUTH ONCE DAILY ACTIVE NEEDED 25 Total Medications MEDICATION REVIEW Medication review completed during home visit. The was given the opportunity to discuss and ask questions about all prescription medications as well as dietary and herbal supplements, vitamins, OTC medications, etc. Currently the is taking his/her medications as per the active orders in the electronic record. A copy of the active medication list was left in patient's home at time of visit. identified by: Full Name, Facial Recognition Length of visit in home: 60 minutes Problem addressed for this visit: PD, med review, fall Specimen(s) collected during this visit: None NURSING SUMMARY: RNCM made home visit for chronic disease management, neuro assessment, c/v and c/p assessment. [place] sitting in the TV room upon arrival. RNCM sat with spouse at the kitchen table and discussed concerns and changes this past month. [place] had EKG done. Showed first degree AV heart block. [place] wearing zio heart monitor for 14 days and spouse to mail back when 14 days is up. Zio patch applied on Sep. [place] and spouse Educated on its use and how to press the event button if symptomatic. Inquired if [place] has been complaining of palpations, heart racing, chest pain and is he pushing the button when having episodes. Spouse states he never complains. [place] seen by Neurologist Dr. Fabby Sun on 10/19/23. Spouse reports MD increased his Carbidopa-Levodopa SA 25-100mg 1 tab 4 x daily 7am, 1pm, 7pm, 11pm and started him on glycopyrrolate. Per med list that RNCM printed morning of 10/25/23 [facility] pharmacy discontinues old script and added Carbidopa-Levodopa SA 25- 100mg 1 tab once daily and glycopyrrolate not on med list. CT pharmacy mailed Carbidopa-Levodopa SA 25-100mg 1 tab once daily. Neurologist faxed [facility] pharmacy new scripts. RNCM called [facility] pharmacy and they received new scripts and they fixed Carbidopa-Levodopa SA 25-100mg 1 tab 4 x daily and explained glycopyrrolate is non formulary and they need neurologist to complete non formulary form and fax it to [facility] pharmacy. Per [facility] pharmacy they emailed Rakel at neurologist office and waiting for form. RNCM [facility] Spouse reports [place] fell last Tuesday10/21/23 he was in the TV room and he went to sit on the couch and misjudge the edge of the couch. Spouse reports he was using walker and having increase wandering episodes in the home. Spouse was able to use transportable lift she has to get him up. Discussed ordering bed and chair alarm to decrease fall risk. She declined. [place] sustained bruise to left buttock. Bruise resolving. No other injuries. Reviewed is on blood thinner and if he hits his head he needs to go to the local hospital to be evaluated. [facility] PCP is working to get [place] off blood thinner. Risk vs benefit. Spouse asking for [facility] PT to look into when Singh is coming back to put in the threshold for the shower. [place] unable to shower until threshold is put in. Spouse asking for [facility] PT to order foot drop lightweight brace for sleeping. Spouse printed out a picture for what she is looking for with name of the company, SKU and size. Will give print out to [facility] PT next IDT. Notified that [facility] PT may not be able to order this particular brace. [facility] PT to review and make recommendations. had 24 hour urine collection in August [address] Davis. Spouse reports no hematuria this past 3 weeks. Spouse reports calcium in urine and on a low oxalate diet. Spouse requesting [facility] RD to make recommendations of low oxalate diet. manages and administers meds in pudding or applesauce, swallowing pills without difficulty. RNCM printed med list this am but needs to be updated again. Will bring next visit. Spouse is very knowledgeable on medication regimen. is taking Melatonin 15 mg at bedtime. Melatonin is listed as 20 mg in med list. Med list will need to be updated. Spouse reports [place] is having sleep apnea and requesting overnight oximetry. RNCM will put in consult if [facility] PCP agrees. Difficulty swallowing, now cutting up food into small pieces, tolerating well. No choking episodes this IDT. Blood Pressure: 134/82 (10/25/2023 13:00) Pulse: 84 (10/25/2023 13:00) Respiration: 16 (10/25/2023 13:00) Temperature: 97.5 F [36.4 C] (10/25/2023 13:00) Pain Score: 0 (10/25/2023 13:00) EXAMINATION: Lungs: Ls clear throughout. Resp easy and reg. Edema: PPP, No edema HR: Strong and reg. Denies chest pain, palpations, dizziness. Bowel/Bladder: Incontinent of urine. uses quick change urine management wrap with oversized poise pad. Occasional incontinence of stool. Denies diarrhea/constipation. Skin: Clean, dry and intact. No skin breakdown Home Safety FALLS YES INFECTIONS NO ER/HOSPITALIZATIONS NO Teaching/goals: Refer to nursing summary. [place] goal is to live at home safely with his as long as possible with assist from his and [facility], [employer] Patient verbalizes understanding to above and will call with any concerns or changes in condition. For emergent care call 911. Revisit: 11/27 for chronic disease management, neuro assessment, c/v an dc/p assessment, med review, /consuelo SEGURA RN BSN [facility] SIGNAL TOWER OPERATOR Signed: 10/26/2023 08:59 Receipt Acknowledged By: * AWAITING SIGNATURE * LUIS FERNANDO FONTANEZ 10/26/2023 ADDENDUM STATUS: COMPLETED Spouse asking for [facility] PT to look into when Singh is coming back to put in the threshold for the shower. unable to shower until threshold is put in. Spouse asking for [facility] PT to order foot drop lightweight brace for sleeping. Spouse printed out a picture for what she is looking for with name of the company, SKU and size. Will give print out to [facility] PT next IDT. Notified that [facility] PT may not be able to order this particular brace. [facility] PT to review and make recommendations. /consuelo SEGURA RN BSN [facility] SIGNAL TOWER OPERATOR Signed: 10/26/2023 09:03 Receipt Acknowledged By: 10/26/2023 09:05 /sharron/ RAMIN MENDIETA, PT, MS, ATP [facility] Physical Therapist JENNIFER SEGURA [facility] October 26, 2023 09:03 AM ADDENDUM: LOCAL TITLE: Addendum STANDARD TITLE: ADDENDUM DATE OF NOTE: OCTOBER 26, 2023@09:03:10 ENTRY DATE: OCTOBER 26, 2023@09:03:11 AUTHOR: JENNIFER SEGURA COSIGNER: URGENCY: STATUS: COMPLETED Spouse asking for [facility] PT to look into when Singh is coming back to put in the threshold for the shower. [place] unable to shower until threshold is put in. Spouse asking for [facility] PT to order foot drop lightweight brace for sleeping. Spouse printed out a picture for what she is looking for with name of the company, SKU and size. Will give print out to [facility] PT next IDT. Notified that [facility] PT may not be able to order this particular brace. [facility] PT to review and make recommendations. /es/ JENNIFER SEGURA RN BSN [facility] SIGNAL TOWER OPERATOR Signed: 10/26/2023 09:03 Receipt Acknowledged By: 10/26/2023 09:05 /es/ RAMIN MENDIETA PT, MS, ATP [facility] Physical Therapist --- Original Document --- 10/25/23 HB RN PROGRESS NOTE: Nursing Progress Note Active and Recently Outpatient Medications (including Supplies): Active Outpatient Medications Status 1) APIXABAN 5MG TAB TAKE ONE TABLET BY MOUTH EVERY 12 ACTIVE HOURS FOR ATRIAL FIBRILLATION 2) ARTIFICIAL SALIVA ORAL SPRAY, 2 SPRAYS BY MOUTH ACTIVE (S) EVERY 2 HOURS NEEDED FOR DRY MOUTH (USE DIRECTED) 3) CARBIDOPA 25/LEVODOPA 100MG SA TAB TAKE 1 TABLET BY ACTIVE (S) MOUTH FOUR TIMES A DAY 4) CARBIDOPA 25/LEVODOPA 100MG TAB TAKE 1 TABLET BY ACTIVE (S) MOUTH FOUR TIMES A DAY 5) CHLORHEXIDINE GLUCONATE 0.12% MOUTHWASH RINSE 15ML BY ACTIVE MOUTH ONCE DAILY FOR INFLAMMATION OF THE GUMS - SWISH AND SPIT. DO NOT SWALLOW 6) CHOLECALCIF 25MCG (D3-1,000UNIT) TAB TAKE ONE TABLET ACTIVE BY MOUTH ONCE DAILY FOR VITAMIN SUPPLEMENTATION 7) DIAPER ADULT LARGE EXTRA ABSORBENT USE 1 BRIEF ACTIVE DIRECTED THREE TIMES A DAY INCONTINENCE 8) FAMOTIDINE 20MG TAB TAKE ONE TABLET BY MOUTH ONCE ACTIVE DAILY FOR STOMACH ACID 9) HYDROCHLOROTHIAZIDE 25MG TAB TAKE ONE TABLET BY MOUTH ACTIVE ONCE DAILY FOR HIGH BLOOD PRESSURE 10) HYDROPHILIC (EQV EUCERIN) TOP CREAM APPLY A LIBERAL ACTIVE AMOUNT TOPICALLY ONCE DAILY FOR DRY SKIN 11) HYDROXYZINE HCL 10MG TAB TAKE ONE TABLET BY MOUTH AT ACTIVE BEDTIME NEEDED FOR ANXIETY 12) INCONT LINER PREVAIL GUARDS #[id number] USE 1 LINER ACTIVE TOPICALLY TWO TIMES A DAY 13) INCONT LINER,MENS X-HVY SURECARE #[id number] USE 1 LINER HOLD TOPICALLY AT BEDTIME 14) INCONTINENCE WRAP,MALE USE 1 INCONTINENCE WRAP ACTIVE (S) TOPICALLY AT BEDTIME 15) MELATONIN 5MG CAP/TAB TAKE FOUR CAPSULE/TABLETS BY ACTIVE MOUTH AT BEDTIME FOR INSOMNIA 16) MEMANTINE HCL 10MG TAB TAKE ONE TABLET BY MOUTH TWICE ACTIVE DAILY FOR ALZHEIMERS DISEASE 17) MIDODRINE HCL 5MG TAB TAKE ONE TABLET BY MOUTH THREE ACTIVE TIMES DAILY NEEDED FOR LOW BLOOD PRESSURE 18) MULTIVITAMIN/MINERALS CAP/TAB TAKE 1 TABLET BY MOUTH ACTIVE ONCE DAILY FOR VITAMIN SUPPLEMENTATION FOR VITAMIN [...] DAILY FOR PARKINSON'S DISEASE 23) UNDERPAD,BED ULTRASORB [id number] M#3136 USE 2 UNDERPADS ACTIVE TOPICALLY AT BEDTIME Active Non-VA Medications Status 1) Non-VA DOCUSATE NA 100MG CAP 100MG BY MOUTH ONCE ACTIVE DAILY NEEDED 2) Non-VA LORAZEPAM 0.5MG TAB 0.5MG BY MOUTH ONCE DAILY ACTIVE NEEDED 25 Total Medications MEDICATION REVIEW Medication review completed during home visit. The was given the opportunity to discuss and ask questions about all prescription medications as well as dietary and herbal supplements, vitamins, OTC medications, etc. Currently the is taking his/her medications as per the active orders in the electronic record. A copy of the active medication list was left in patient's home at time of visit. [place] identified by: Full Name, Facial Recognition Length of visit in home: 60 minutes Problem addressed for this visit: PD, med review, fall Specimen(s) collected during this visit: None NURSING SUMMARY: RNCM made home visit for chronic disease management, neuro assessment, c/v and c/p assessment. sitting in the TV room upon arrival. RNCM sat with spouse at the kitchen table and discussed concerns and changes this past month. had EKG done. Showed first degree AV heart block. wearing zio heart monitor for 14 days and spouse to mail back when 14 days is up. Zio patch applied on Sep. [place] and spouse Educated on its use and how to press the event button if symptomatic. Inquired if [place] has been complaining of palpations, heart racing, chest pain and is he pushing the button when having episodes. Spouse states he never complains. seen by [facility] Neurologist Dr. Fabby Sun on 10/19/23. Spouse reports MD increased his Carbidopa-Levodopa SA 25-100mg 1 tab 4 x daily 7am, 1pm, 7pm, 11pm and started him on glycopyrrolate. Per med list that RNCM printed morning of 10/25/23 CT pharmacy discontinues old script and added Carbidopa-Levodopa SA 25- 100mg 1 tab once daily and glycopyrrolate not on med list. CT pharmacy mailed Carbidopa-Levodopa SA 25-100mg 1 tab once daily. Neurologist faxed [facility] pharmacy new scripts. RNCM called [facility] pharmacy and they received new scripts and they fixed Carbidopa-Levodopa SA 25-100mg 1 tab 4 x daily and explained glycopyrrolate is non formulary and they need neurologist to complete non formulary form and fax it to [facility]. Per [facility] pharmacy they emailed Rakel at neurologist office and waiting for form. RNCM requested neurology note to be faxed to [facility]. Spouse reports fell last Tuesday10/21/23 he was in the TV room and he went to sit on the couch and misjudge the edge of the couch. Spouse reports he was using walker and having increase wandering episodes in the home. Spouse was able to use transportable lift she has to get him up. Discussed ordering bed and chair alarm to decrease fall risk. She declined. sustained bruise to left buttock. Bruise resolving. No other injuries. Reviewed is on blood thinner and if he hits his head he needs to go to the local hospital to be evaluated. [facility] PCP is working to get [place] off blood thinner. Risk vs benefit. Spouse asking for [facility] PT to look into when Singh is coming back to put in the threshold for the shower. unable to shower until threshold is put in. Spouse asking for [facility] PT to order foot drop lightweight brace for sleeping. Spouse printed out a picture for what she is looking for with name of the company, SKU and size. Will give print out to [facility] PT next IDT. Notified that [facility] PT may not be able to order this particular brace. [facility] PT to review and make recommendations. [place] had 24 hour urine collection in August [address] Daivs. Spouse reports no hematuria this past 3 weeks. Spouse reports calcium in urine and on a low oxalate diet. Spouse requesting [facility] RD to make recommendations of low oxalate diet. manages and administers meds in pudding or applesauce, swallowing pills without difficulty. RNCM printed med list this am but needs to be updated again. Will bring next visit. Spouse is very knowledgeable on medication regimen. is taking Melatonin 15 mg at bedtime. Melatonin is listed as 20 mg in med list. Med list will need to be updated. Spouse reports is having sleep apnea and requesting overnight oximetry. RNCM will put in consult if [facility] PCP agrees. Difficulty swallowing, now cutting up food into small pieces, tolerating well. No choking episodes this IDT. Blood Pressure: 134/82 (10/25/2023 13:00) Pulse: 84 (10/25/2023 13:00) Respiration: 16 (10/25/2023 13:00) Temperature: 97.5 F [36.4 C] (10/25/2023 13:00) Pain Score: 0 (10/25/2023 13:00) EXAMINATION: Lungs: Ls clear throughout. Resp easy and reg. Edema: PPP, No edema HR: Strong and reg. Denies chest pain, palpations, dizziness. Bowel/Bladder: Incontinent of urine. uses quick change urine management wrap with oversized poise pad. Occasional incontinence of stool. Denies diarrhea/constipation. Skin: Clean, dry and intact. No skin breakdown Home Safety FALLS YES INFECTIONS NO ER/HOSPITALIZATIONS NO Teaching/goals: Refer to nursing summary. goal is to live at home safely with his as long as possible with assist from his and [facility], [facility] Patient verbalizes understanding to above and will call with any concerns or changes in condition. For emergent care call 911. Revisit: 11/27 for chronic disease management, neuro assessment, c/v an dc/p assessment, med review, /sharron/ JENNIFER SEGURA RN BSN [facility] SIGNAL TOWER OPERATOR Signed: 10/26/2023 08:59 Receipt Acknowledged By: * AWAITING SIGNATURE * LUIS FERNANDO FONTANEZ 10/26/2023 ADDENDUM STATUS: COMPLETED had 24 hour urine collection in August [address] Davis. Spouse reports no hematuria this past 3 weeks. Spouse reports calcium in urine and on a low oxalate diet. Spouse requesting [facility] RD to make recommendations of low oxalate diet. /sharron/ JENNIFER SEGURA RN BSN [facility] SIGNAL TOWER OPERATOR Signed: 10/26/2023 09:04 Receipt Acknowledged By: * AWAITING SIGNATURE * RIGO FENTON HEATHER L CT [facility] [place] [facility] October 25, 2023 01:00 PM HB NURSING NOTE: LOCAL TITLE: [facility] RN PROGRESS NOTE STANDARD TITLE: [facility] NURSING NOTE DATE OF NOTE: OCTOBER 25, 2023@13:00 ENTRY DATE: OCTOBER 25, 2023@21:28:16 AUTHOR: JENNIFER SEGURA EXP COSIGNER: URGENCY: STATUS: COMPLETED [facility] RN PROGRESS NOTE Has ADDENDA Nursing Progress Note Active and Recently Outpatient Medications (including Supplies): Active Outpatient Medications Status 1) APIXABAN 5MG TAB TAKE ONE TABLET BY MOUTH EVERY 12 ACTIVE HOURS FOR ATRIAL FIBRILLATION 2) ARTIFICIAL SALIVA ORAL SPRAY, 2 SPRAYS BY MOUTH ACTIVE (S) EVERY 2 HOURS NEEDED FOR DRY MOUTH (USE DIRECTED) 3) CARBIDOPA 25/LEVODOPA 100MG SA TAB TAKE 1 TABLET BY ACTIVE (S) MOUTH FOUR TIMES A DAY 4) CARBIDOPA 25/LEVODOPA 100MG TAB TAKE 1 TABLET BY ACTIVE (S) MOUTH FOUR TIMES A DAY 5) CHLORHEXIDINE GLUCONATE 0.12% MOUTHWASH RINSE 15ML BY ACTIVE MOUTH ONCE DAILY FOR INFLAMMATION OF THE GUMS - SWISH AND SPIT. DO NOT SWALLOW 6) CHOLECALCIF 25MCG (D3-1,000UNIT) TAB TAKE ONE TABLET ACTIVE BY MOUTH ONCE DAILY FOR VITAMIN SUPPLEMENTATION 7) DIAPER ADULT LARGE EXTRA ABSORBENT USE 1 BRIEF ACTIVE DIRECTED THREE TIMES A DAY INCONTINENCE 8) FAMOTIDINE 20MG TAB TAKE ONE TABLET BY MOUTH ONCE ACTIVE DAILY FOR STOMACH ACID 9) HYDROCHLOROTHIAZIDE 25MG TAB TAKE ONE TABLET BY MOUTH ACTIVE ONCE DAILY FOR HIGH BLOOD PRESSURE 10) HYDROPHILIC (EQV EUCERIN) TOP CREAM APPLY A LIBERAL ACTIVE AMOUNT TOPICALLY ONCE DAILY FOR DRY SKIN 11) HYDROXYZINE HCL 10MG TAB TAKE ONE TABLET BY MOUTH AT ACTIVE BEDTIME NEEDED FOR ANXIETY 12) INCONT LINER PREVAIL GUARDS #[id number] USE 1 LINER ACTIVE TOPICALLY TWO TIMES A DAY 13) INCONT LINER,MENS X-HVY SURECARE #[id number] USE 1 LINER HOLD TOPICALLY AT BEDTIME 14) INCONTINENCE WRAP,MALE USE 1 INCONTINENCE WRAP ACTIVE (S) TOPICALLY AT BEDTIME 15) MELATONIN 5MG CAP/TAB TAKE FOUR CAPSULE/TABLETS BY ACTIVE MOUTH AT BEDTIME FOR INSOMNIA 16) MEMANTINE HCL 10MG TAB TAKE ONE TABLET BY MOUTH TWICE ACTIVE DAILY FOR ALZHEIMERS DISEASE 17) MIDODRINE HCL 5MG TAB TAKE ONE TABLET BY MOUTH THREE ACTIVE TIMES DAILY NEEDED FOR LOW BLOOD PRESSURE 18) MULTIVITAMIN/MINERALS CAP/TAB TAKE 1 TABLET BY MOUTH ACTIVE ONCE DAILY FOR VITAMIN SUPPLEMENTATION FOR VITAMIN [...] DAILY FOR PARKINSON'S DISEASE 23) UNDERPAD,BED ULTRASORB [id number] M#3136 USE 2 UNDERPADS ACTIVE TOPICALLY AT BEDTIME Active Non-VA Medications Status 1) Non-VA DOCUSATE NA 100MG CAP 100MG BY MOUTH ONCE ACTIVE DAILY NEEDED 2) Non-VA LORAZEPAM 0.5MG TAB 0.5MG BY MOUTH ONCE DAILY ACTIVE NEEDED 25 Total Medications MEDICATION REVIEW Medication review completed during home visit. The was given the opportunity to discuss and ask questions about all prescription medications as well as dietary and herbal supplements, vitamins, OTC medications, etc. Currently the is taking his/her medications as per the active orders in the electronic record. A copy of the active medication list was left in patient's home at time of visit. [place] identified by: Full Name, Facial Recognition Length of visit in home: 60 minutes Problem addressed for this visit: PD, med review, fall Specimen(s) collected during this visit: None NURSING SUMMARY: RNCM made home visit for chronic disease management, neuro assessment, c/v and c/p assessment. [place] sitting in the TV room upon arrival. RNCM sat with spouse at the kitchen table and discussed concerns and changes this past month. had EKG done. Showed first degree AV heart block. [place] wearing zio heart monitor for 14 days and spouse to mail back when 14 days is up. Zio patch applied on Sep. [place] and spouse Educated on its use and how to press the event button if symptomatic. Inquired if has been complaining of palpations, heart racing, chest pain and is he pushing the button when having episodes. Spouse states he never complains. [place] seen by Neurologist Dr. Fabby Sun on 10/19/23. Spouse reports MD increased his Carbidopa-Levodopa SA 25-100mg 1 tab 4 x daily 7am, 1pm, 7pm, 11pm and started him on glycopyrrolate. Per med list that RNCM printed morning of 10/25/23 CT pharmacy discontinues old script and added Carbidopa-Levodopa SA 25- 100mg 1 tab once daily and glycopyrrolate not on med list. CT pharmacy mailed Carbidopa-Levodopa SA 25-100mg 1 tab once daily. Neurologist faxed [facility] pharmacy new scripts. RNCM called [facility] pharmacy and they received new scripts and they fixed Carbidopa-Levodopa SA 25-100mg 1 tab 4 x daily and explained glycopyrrolate is non formulary and they need neurologist to complete non formulary form and fax it to [facility]. Per [facility] pharmacy they emailed Rakel at neurologist office and waiting for form. RNCM requested neurology note to be faxed to [facility]. Spouse reports [place] fell last Tuesday10/21/23 he was in the TV room and he went to sit on the couch and misjudge the edge of the couch. Spouse reports he was using walker and having increase wandering episodes in the home. Spouse was able to use transportable lift she has to get him up. Discussed ordering bed and chair alarm to decrease fall risk. She declined. sustained bruise to left buttock. Bruise resolving. No other injuries. Reviewed [place] is on blood thinner and if he hits his head he needs to go to the local hospital to be evaluated. [facility] PCP is working to get off blood thinner. Risk vs benefit. Spouse asking for [facility] PT to look into when Singh is coming back to put in the threshold for the shower. [place] unable to shower until threshold is put in. Spouse asking for [facility] PT to order foot drop lightweight brace for sleeping. Spouse printed out a picture for what she is looking for with name of the company, SKU and size. Will give print out to [facility] PT next IDT. Notified that [facility] PT may not be able to order this particular brace. [facility] PT to review and make recommendations. had 24 hour urine collection in August [address] Davis. Spouse reports no hematuria this past 3 weeks. Spouse reports calcium in urine and on a low oxalate diet. Spouse requesting HB RD to make recommendations of low oxalate diet. manages and administers meds in pudding or applesauce, swallowing pills without difficulty. RNCM printed med list this am but needs to be updated again. Will bring next visit. Spouse is very knowledgeable on medication regimen. is taking Melatonin 15 mg at bedtime. Melatonin is listed as 20 mg in med list. Med list will need to be updated. Spouse reports [place] is having sleep apnea and requesting overnight oximetry. RNCM will put in consult if [facility] PCP agrees. Difficulty swallowing, now cutting up food into small pieces, tolerating well. No choking episodes this IDT. Blood Pressure: 134/82 (10/25/2023 13:00) Pulse: 84 (10/25/2023 13:00) Respiration: 16 (10/25/2023 13:00) Temperature: 97.5 F [36.4 C] (10/25/2023 13:00) Pain Score: 0 (10/25/2023 13:00) EXAMINATION: Lungs: Ls clear throughout. Resp easy and reg. Edema: PPP, No edema HR: Strong and reg. Denies chest pain, palpations, dizziness. Bowel/Bladder: Incontinent of urine. uses quick change urine management wrap with oversized poise pad. Occasional incontinence of stool. Denies diarrhea/constipation. Skin: Clean, dry and intact. No skin breakdown Home Safety FALLS YES INFECTIONS NO ER/HOSPITALIZATIONS NO Teaching/goals: Refer to nursing summary. goal is to live at home safely with his as long as possible with assist from his and [facility], [employer] Patient verbalizes understanding to above and will call with any concerns or changes in condition. For emergent care call 911. Revisit: 11/27 for chronic disease management, neuro assessment, c/v an dc/p assessment, med review, /consuelo SEGURA SHELLFISH SORTER [facility] SIGNAL TOWER OPERATOR Signed: 10/26/2023 08:59 Receipt Acknowledged By: 10/26/2023 13:46 /sharron/ LUIS FERNANDO HICKEY-C [facility] NURSE PRACTITIONER 10/26/2023 ADDENDUM STATUS: COMPLETED Spouse asking for [facility] PT to look into when Singh is coming back to put in the threshold for the shower. [place] unable to shower until threshold is put in. Spouse asking for [facility] PT to order foot drop lightweight brace for sleeping. Spouse printed out a picture for what she is looking for with name of the company, SKU and size. Will give print out to [facility] PT next IDT. Notified that [facility] PT may not be able to order this particular brace. [facility] PT to review and make recommendations. /ZACHARIAH Rodriguez [facility] SIGNAL TOWER OPERATOR Signed: 10/26/2023 09:03 Receipt Acknowledged By: 10/26/2023 09:05 /sharron/ RAMIN MENDIETA, PT, MS, ATP HB Physical Therapist 10/26/2023 ADDENDUM STATUS: COMPLETED [place] had 24 hour urine collection in August [address] Davis. Spouse reports no hematuria this past 3 weeks. Spouse reports calcium in urine and on a low oxalate diet. Spouse requesting [facility] RD to make recommendations of low oxalate diet. /ZACHARIAH Rodriguez [facility] SIGNAL TOWER OPERATOR Signed: 10/26/2023 09:04 Receipt Acknowledged By: 10/26/2023 13:04 /sharron/ RIGO FENTON, MS, RDN, LDN Staff Dietitian 10/26/2023 ADDENDUM STATUS: COMPLETED pcp agrees with LEXIE salgado for RNCM to place consult /sharron/ LUIS FERNANDO HICKEY-C [facility] NURSE PRACTITIONER Signed: 10/26/2023 14:02 Receipt Acknowledged By: * AWAITING SIGNATURE * JENNIFER SEGURA [facility]
--- OUTSIDE RECORDS SUMMARY | 2024-05-30 08:34 | XMS_ITS ---
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 Name Role Phone LUIS FERNANDO GARCIA Primary Care Provider Unavailabl e AMANDO OHARA Unavailable Unavailable RARAMIN KEYES Unavailable Unavailable FEILEN, KALYAN Unavailable Unavailable TIRADO, DAMANIVAL Unavailable Unavailable RIGO FENTON Unavailable Unavailable [...] PRESCRIPT ION [id number] 1 Jun 20, 2017 [id number] [phone] EAMON OLIVIA ERT PATIENT MEDICARE (WNR) MEDICARE (M) PART A Jun 20, 2014 PART A [id number] EAMON OLIVIA ERT PATIENT MEDICARE (WNR) MEDICARE (M) PART B Jun 20, 2014 PART B [id number] [phone] EAMON OLIVIA ERT PATIENT MEDICARE (WNR) MEDICARE (M) PART B Jun 20, 2014 PART B [id number] EAMON OLIVIA ERT PATIENT MEDICARE (WNR) MEDICARE (M) PART A Jun 20, 2014 PART A [id number] EAMON OLIVIA ERT PATIENT OPTUM RX PRESCRIPT ION RX Jun 20, 2023 THPRX [id number] EAMON OLIVIA ERT PATIENT [facility] RX PRESCRIPT ION RX Jun 20, 2022 THPRX [id number] EAMON OLIVIA ERT PATIENT [facility] RX PRESCRIPT ION RX Jun 20, 2022 THPRX [id number] [phone] DAVON OLIVIA JR PATIENT [facility] TON MAR Jun 20, 2017 [id number] [phone] EAMON OLIVIA ERT PATIENT [facility] TON PEÑA E Jun 20, 2017 [id number] [phone] DAVON OLIVIA JR PATIENT [facility] TON PEÑA E Jun 20, 2017 [id number] [phone] DAVON OLIVIA JR PATIENT [facility] Jun 20, 2017 USP [id number] EAMON OLIVIA ERT [facility] Jun 20, 2023 [id number] EAMON OLIVIA ERT PATIENT Selected Encounter This section includes the information on record at [place] for the Encounter. Date/Time Encounter Type Encounter Description Reason Pro vider Source October 20, 2023 05:28 PM Outpatient Encounter [facility] PHYSIC EXTND(ZIPPER TRIMMER,CLIENT SERVICES ASSISTANT,[place]) IHE Encounter Template Text not used by [facility] Plan of Treatment: Future Appointments (+ 6 months) and Future Tests (+/- 45 days) The Plan of Treatment section includes future care activities for the patient from all [place] treatmentfacilities. This section includes future appointments and future orders which are active, pending or scheduled. Future Appointments This section includes appointments that were scheduled to occur 6 months from the date of the Encounter, up to a maximum of 20 appointments. The data comes from all [place] treatment facilities. Appointment Date/Time Appointment Type Appointme nt Facility Name Dec 26, 2023 11:00 AM AMBULATORY - MEDICINE [facility] [place] [facility] Jan 04, 2024 01:00 PM AMBULATORY [...] REHAB MEDICIN E [facility] [place] [facility] Apr 12, 2024 11:00 AM AMBULATORY - REHAB MEDICIN E [facility] [place] [facility] Lab Results: +/- 30 days of the encounter This section includes the Chemistry and Hematology Lab Results on record with [place] for the patient. Radiology Reports and Pathology Reports are provided separately, in subsequent sections. Lab Results This section contains the Chemistry/Hematology Results that were resulted 30 days before or 30 daysafter the date of the Encounter. Date/Time Source Result Type Result - Unit Interpretation Reference Range Comment Oct 10, 2023 02:00 PM [facility] FOLATE (WROX) Specimen Type: SERUM No comment entered. Ordering Provider: LUIS FERNANDO GARCIA Report Released Date/Time: Oct 10, 2023 08:28 AM Reporting Lab: [place] [facility] [place] [facility] [address] [facility] [facility] [address] Performing Lab: [place] [facility] [place] [facility] [address] [address] FOLATE (WROX) 13.68 ng/mL >5.2 Oct 10, 2023 02:00 PM [facility] LIVER FUNCTION Specimen Type: SERUM No comment entered. Ordering Provider: LUIS FERNANDO GARCIA Report Released Date/Time: Oct 10, 2023 08:28 AM Reporting Lab: [facility] [address] [facility] [address] Performing Lab: [facility] [address] [address] PROTEIN,TOTAL 7.0 g/dL 6.0-8.3 ALBUMIN 3.6 g/dL 3.5-5.0 ALKALINE PHOSPHATASE 77 U/L 40-150 AST 21 U/L 5-34 ALT 14 U/L BILIRUBIN, TOTAL 0.4 mg/dL 0.2-1.2 Oct 10, 2023 02:00 PM [facility] LIPID PANEL, NON FASTING Specimen Type: SERUM No comment entered. Ordering Provider: LUIS FERNANDO GARCIA Report Released Date/Time: Oct 10, 2023 08:28 AM Reporting Lab: [facility] [address] [address] Performing Lab: [facility] [address] CHOLESTEROL 210 mg/dL H TRIGLYCERIDE 84 mg/dL 0-150 LDL calculated 133 mg/dL H 0-129 CHOL/HDL 3.5 HDL CHOLESTEROL 60 mg/dL 40-60 Oct 10, 2023 02:00 PM [facility] VITAMIN D (25-OH) Specimen Type: SERUM No comment entered. Ordering Provider: LUIS FERNANDO GARCIA Report Released Date/Time: Oct 10, 2023 08:28 AM Reporting Lab: [facility] [address] [facility] [facility] [address] Performing Lab: [facility] [address] VITAMIN D (25-OH) 38 ng/mL 20-50 Oct 10, 2023 02:00 PM [facility] VITAMIN B12 Specimen Type: SERUM No comment entered. Ordering Provider: LUIS FERNANDO GARCIA Report Released Date/Time: Oct 10, 2023 08:28 AM Reporting Lab: [facility] [address] Performing Lab: [facility] [address] [facility] [address] VITAMIN B12 767 pg/mL 200-900 Oct 10, 2023 02:00 PM [facility] HEMOGLOBIN A1C PANEL Specimen Type: BLOOD Comment: Values obtained from A1C measurements can vary. For atypical A1C assays, a reported value of 7.0 could actually be between 6.72 and 7.28 if measured by a reference method. A reported value of 9.0 could actually be between 8.73 and 9.27. Ref: http://www.ngs p.org/CAPdata. asp Ordering Provider: LUIS FERNANDO GARCIA Report Released Date/Time: Oct 10, 2023 08:28 AM Reporting Lab: [facility] [address] [facility] [facility] [address] Performing Lab: [address] [address] HEMOGLOBIN A1C 5.3 4.0-5.6 Oct 10, 2023 02:00 PM [facility] TSH Specimen Type: SERUM No comment entered. Ordering Provider: LUIS FERNANDO GARCIA Report Released Date/Time: Oct 10, 2023 08:28 AM Reporting Lab: [facility] [address] [facility] [address] Performing Lab: [facility] [address] TSH 2.22 u[IU]/mL 0.35-5.00 Oct 10, 2023 02:00 PM [facility] FERRITIN Specimen Type: SERUM No comment entered. Ordering Provider: LUIS FERNANDO GARCIA Report Released Date/Time: Oct 10, 2023 08:28 AM Reporting Lab: [facility] [address] [facility] [address] Performing Lab: [address] [address] FERRITIN 106 ng/mL 20-300 Oct 10, 2023 02:00 PM [facility] IRON & TIBC PANEL Specimen Type: SERUM No comment entered. Ordering Provider: LUIS FERNANDO GARCIA Report Released Date/Time: Oct 10, 2023 08:28 AM Reporting Lab: [facility] [address] [facility] [facility] [address] Performing Lab: [address] [address] TIBC 330 ug/dL 204-475 IRON 102 ug/dL 40-160 Transferrin Saturation 30.9 20.0-50.0 Oct 10, 2023 02:00 PM [facility] CBC AND DIFF (AUTO) Specimen Type: BLOOD No comment entered. Ordering Provider: LUIS FERNANDO GARCIA Report Released Date/Time: Oct 10, 2023 08:28 AM Reporting Lab: [address] [address] Performing Lab: [address] [address] WBC 7.10 10*3/uL 4.50-11.00 RBC 5.13 10*6/uL 4.23-5.66 HGB 15.1 g/dL 12.8-17 HCT 45.5 39.2-50.4 MCV 88.7 fL 82-99 MCHC 33.2 g/dL 30.8-35.1 PLT 281 10*3/uL 140-360 RDW-CV 12.9 12.0-16.0 Snyder, Abs 0.67 10*3/uL 0.30-1.10 MCH 29.4 pg 26.2-32.6 Neut % 61.3 43.7-75.8 Lymph % 27.3 14.0-42.3 Snyder % 9.4 5.1-13.7 Eos % 1.3 0.4-6.8 Baso % 0.4 0.1-2.0 Neut, Abs 4.35 10*3/uL 2.20-7.60 Lymph, Abs 1.94 10*3/uL 1.00-3.20 Eos, Abs 0.09 10*3/uL 0.03-0.44 Baso, Abs 0.03 10*3/uL 0.01-0.13 Immature Gran % 0.3 0.0-0.7 Immature Gran, Abs 0.02 10*3/uL 0.00-0.06 Oct 10, 2023 02:00 PM [facility] BASIC METABOLIC PANEL (non-fasting) Specimen Type: SERUM No comment entered. Ordering Provider: LUIS FERNANDO GARCIA Report Released Date/Time: Oct 10, 2023 08:28 AM Reporting Lab: [facility] [address] [facility] [facility] [address] Performing Lab: [facility] [address] [facility] [facility] [address] UREA NITROGEN 16 mg/dL 7-25 GLUCOSE 82 [...] and tobacco- related health factors from the [place] facility where the Encounter took place. Current Smoking Status This section includes the most current smoking, or tobacco-related health factor, from the [place] facility where the Encounter took place. Date/Time Current Smoking Status Comment Raghu melchor Jan 19, 2023 12:24 PM VA-TOBACCO NEVER USED [facility] Tobacco Use History This section includes a history of the smoking, or tobacco-related health factors, that were collected on or before the date of the Encounter. The data comes from the [place] facility where the Encounter took place. Date/Time Smoking Status/Tobacco Use Comment F acility Jan 15, 2021 11:00 AM VA-TOBACCO NEVER USED [facility] Advance Directives: All historical and current Section Date Range: From patient's date of to the date document was created. This section includes ALL of a patient's completed or amended [place] Advance and Rescinded Directives. The entries below indicate that a directive exists for the patient, but an actual copy is not included with this document. The data comes from all [place] facilities. Date Advance Directives Provider Source Jan 20, 2021 ADVANCE DIRECTIVE AALIYAHBENTON Chacko [facility] Encounter Notes: All associated encounter notes This section contains the clinical notes associated to the Encounter. Date/Time Encounter Note(s) Provider Source October 20, 2023 11:00 AM [facility] NOTE: LOCAL TITLE: [facility] INTERDISCIPLINARY NOTE STANDARD TITLE: [facility] NOTE DATE OF NOTE: OCTOBER 20, 2023@11:00 ENTRY DATE: OCTOBER 20, 2023@17:28:22 AUTHOR: JENNIFER SEGURA EXP COSIGNER: URGENCY: STATUS: COMPLETED [facility] INTERDISCIPLINARY NOTE Has ADDENDA INTERDISCIPLINARY NOTE Allergies: LIPITOR, AMOXICILLIN, ERYTHROMYCIN, FLOMAX, SEROQUEL, LEVAQUIN, CONTRAST MEDIA MIRTAZAPINE Risk Assessment Level 1 Low risk DNR: No Advanced Directive Completed: Yes Family/Community Support: Zora lives in a single family home with his Tory who is his primary caregiver/HCP/DPOA. Spouse has limited support. She has a brother Stephon who lives in [place] who will come over and stay with jahairat while spouse goes on errands. Jahairat requires assist with all adl's, dependent on all Iadl's. Receives [employer] services through [place] 9 hours a week ([facility]). Mental Status: A & O X 3, Forgetfulness PLAN OF CARE 90 day review Dates covered by plan of care from October to Dec Primary Care Provider: Luis Fernando Garcia PROBLEM LIST: Active problems - Computerized Problem List is the source for the followin. Under care of multiple providers Dr. Shirin HUTCHISON [place] PCP Neurologist : Dr. Dino [facility] Orthopedist: MIRELA Monahan Hosmer Personnel Quality Assurance Auditor: Dr. Ha Man 2. Exposure to potentially hazardous substance Connect Snomed Code to ICD 10 Code refer to note dated 03/21/23 3. Long-term current use of anticoagulant 4. Gingivitis 5. Parkinsonism 6. Squamous cell carcinoma of skin 7. Basal cell carcinoma of skin multiple sites-head, arm, neck 8. Hypotension Intermittent 9. Benign prostatic hyperplasia 10. Hematuria Intermittent 11. Diverticular disease of colon 12. Internal hemorrhoids 13. REM sleep behavior disorder 14. Peripheral vascular disease of Carotids- L more than Right 15. Migraine 16. Solitary nodule of lung 2mm-via CT 17. Dupuytren's contracture 18. Multiple renal cysts 19. Atrial flutter 20. History of deep vein thrombosis 21. Memory loss 22. Sundowning 23. Urinary incontinence 24. Insomnia 25. Gastroesophageal reflux disease 26. AF- Atrial Fibrillation (SCT [id number]) followed by [facility]iology 27. Parkinson's disease followed by [facility] Dr. Fabby Sun 28. Kidney Stone (SCT [id number]) [facility] Medications: Active Outpatient Medications (including Supplies): Active Outpatient Medications Status 1) APIXABAN 5MG TAB TAKE ONE TABLET BY MOUTH EVERY 12 ACTIVE (S) HOURS FOR ATRIAL FIBRILLATION 2) ARTIFICIAL SALIVA ORAL SPRAY SPRAY 2 SPRAYS BY MOUTH ACTIVE (S) EVERY 2 HOURS NEEDED FOR DRY MOUTH (USE DIRECTED) 3) CARBIDOPA 25/LEVODOPA 100MG SA TAB TAKE 1 TABLET BY ACTIVE MOUTH ONCE DAILY 4) CARBIDOPA 25/LEVODOPA 100MG TAB TAKE 1 [...] A DAY 13) INCONT LINER,MENS X-HVY SURECARE #[id number] USE 1 LINER HOLD TOPICALLY AT BEDTIME [...] DAILY FOR PARKINSON'S DISEASE 23) UNDERPAD,BED ULTRASORB [id number] M#[id number] USE 2 UNDERPADS ACTIVE TOPICALLY AT BEDTIME Active Non-VA Medications Status 1) Non-VA DOCUSATE NA 100MG CAP 100MG BY MOUTH ONCE ACTIVE DAILY NEEDED 2) Non-VA LORAZEPAM 0.5MG TAB 0.5MG BY MOUTH ONCE DAILY ACTIVE NEEDED 25 Total Medications Gender Specific Health Assessment: BPH, Urinary Incontinence Fall Risk: [facility] 10 Fall Risk Assessment Tool Required Core Elements Assess one point for each core element yes. Information may be gathered from medical record, assessment and if applicable, the patient caregiver. Beyond protocols listed below, scoring should be based on your clinical judgment. 1-Age 65+ 1-Diagnosis (3 or more co-existing) Includes only documented medical diagnosis 0-Prior history of falls within 3 months An unintentional change in position resulting in coming to rest on the ground or at a lower level. 1-Incontinence Inability to make it to the bathroom or commode in a timely manner. Includes frequency, urgency, and/or nocturia 0-Visual impairment Includes but not limited to, macular degeneration, diabetic retinopathy, visual field loss, age related changes, decline in visual acuity, accommodation, glare tolerance, depth perception, and night vision or not wearing prescribed glasses or having the correct prescription 1-Impaired functional mobility May include patients who need help with IADLs or ADLs or have gait or transfer problems, arthritis, pain, fear of falling, foot problems, impaired sensation, impaired coordination or improper use of assistive devices. 0-Environmental hazards May include but not limited to, poor illumination, equipment tubing, inappropriate footwear, pets, hard to reach items, floor surfaces that are uneven or cluttered, or outdoor entry and exits. 1-[facility] (4 or more prescriptions - any type) All PRESCRIPTIONS including prescriptions for OTC meds. Drugs highly associated with fall risk include but not limited to, sedatives, anti-depressants, tranquilizers, narcotics, antihypertensive, cardiac meds, corticosteroids, anti- anxiety drugs, anticholinergic drugs, and hypoglycemic drugs. 0-Pain affecting level of function Pain often affects an individual's desire or ability to move or pain can be a factor in depression or compliance with safety recommendations. 1-Cognitive Impairment Could include patients with dementia, Alzheimer's or stroke patients or patients who are confused, use poor judgment, have decreased comprehension, impulsivity, memory deficits. Consider patients ability to adhere to the plan of care. Total: 6- A score of 4 or more is considered at risk for falling. Created by: [facility] Functional Limitations Use of assistive devices wheelchair. Ambulates very short distance using walker, gait belt and 1 assist. Under 20 ft Needs assistance with transfers bowel/bladder incontinence Nutritional Requirements: Diet: foods finely chopped foods Aspiration problems yes, swallowing difficulties, Couldn't complete Barium Swallow Study teas not able to tolerate RN VISIT FREQUENCY RN 1 to 4 visits per every 4- weeks and 2 PRN [facility] RN visits for changes in Health Status Assess: vital signs to include pain assessment, pain control response to medications, bowel and bladder function, s/s of deterioration and management of complications related to disease process, cardiopulmonary status, effects of comfort measures, psychosocial status, and neurological status WHAT MATTERS What Matters was addressed at this visit. - The Patient Priorities Care (PPC) approach was used to ask and identify What Matters. - The One Thing that Matters to the was used to align the current care plan. Orla reports what matters the most to him is to be able to live in his house with his with assistance from [facility] and [employer] as long as he can. MEDICATION Medications were addressed at this visit. Spouse administers medications MENTATION Depression was addressed at this visit. denies feeling depressed. Comment: PHQ-2 Mental Health Screening performed by [facility] RN this visit. Over the past two weeks, how often have you been bothered by the following problems? 1. Little interest or pleasure in doing things? 0 = Not at all 2. Feeling down, depressed, or hopeless? 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 Spouse reports sundowning MENTATION Delirium was addressed at this visit. Comment: No concerns identified during this visit. MOBILITY -------- Mobility was addressed at this visit. Comment: Chairbound at this time. Able to ambulate a few steps to the bathroom with 1 assist, walker and gait belt PROBLEM ADDRESED 1. PROBLEM: Alteration in neuro status r/t Parkinson's disease (ongoing) GOAL: Vet will function within limitations of neurological disorder without complication and exacerbations Intervention: Assess neuro status including level of consciousness, speech, strength, balance and swallowing. Instruct vet and caregiver in safety measures with swallowing, transfers and weakness, falls. Instruct vet/caregiver on disease process, assess for exacerbation and complications. Follow up with Community Neurologist Dr. Fabby [facility] and encourage f/u as needed and to follow through recommendations. Monitor effectiveness of medication on stiffness, weakness. Consult DOT ETCHER for speech therapy when indicated or might be beneficial. [facility] Registered Dietitian for eval and education as appropriate. Consult OT for eval and treatment- adaptive devices and PT as needed for eval and treatment. 2. PROBLEM ADDRESSED: high risk for aspiration r/t impaired muscles of swallowing. GOAL: To remain free of Aspiration pneumonia, no choking episodes. Interventions: Teach techniques for protecting airway, sitting up straight, finely chop all foods, taking small bites, putting chin on chest when swallowing, concentrate when eating, avoid increased stimulation, i.e talking when eating. Consult [facility] RD for nutritional needs and assess swallowing. Vet recently attempted barium swallow study but unable to tolerated, not completed. 3. PROBLEM ADDRESSED: BPH, urinary frequency-occasional incontinence. GOAL: minimize urinary complications/infections Interventions: teach important sx to monitor and report to [facility] team related to worsening sx of urinary sx-urgency, frequency, burning/pain, fever, chills, hematuria, flank pain. Follow up with Community Urologist- [facility]- Dr. Lloyd Soares. Encourage med adherence-currently on finasteride. incontinence care, good kendall hygiene to prevent skin breakdown/rashes etc. Use of urinal/bedside commode at night for nocturia if unable to make it to the bathroom. 4. PROBLEM ADDRESSED: Memory loss, sundowning GOAL: Vet's dignity and self-esteem will be preserved and quality of life improved by minimizing the risk for anxiety, agitation, safety and unmet needs Interventions: Allow adequate rest between stimulating events. Ensure to keep the living area clear and well structured. Encourage autonomy within vet's ability level, allow opportunities and sufficient time to express himself, avoid correcting, provide encouragement and praise; focus on the feelings, not the facts. Reapproach, direct pertinent health information/update to caregiver. *Obtain baseline signs/behavior/nonverbal cues for pain/discomfort. *SW available for community resources, alternate living situation as caregiver deems necessary for safety of patient. 5. PROBLEM ADDRESSED: Atrial fibrillation GOAL: Vet will maintain stable cp status and take meds as directed INTERVENTIONS: Assess CP status to include VS, respiratory status, med effect and safety, monitor vet's med compliance. Teach and assess Caregivers understanding of reportable signs such as variations in blood pressure and pulse, fatigue, weakness, dyspnea, cough, abnormal breath sounds, peripheral edema, dizziness and report to [facility]. Instruct on medication use, and s/s of bleeding and anticoagulation precautions. 6. PROBLEM ADDRESSED: Fall/injury risk r/t weakness, poor vision-Macular degeneration GOAL: will remain free of falls for the next 90days INTERVENTIONS: assess for falls, injuries every visit. Implement measures to prevent falls. Include pt in planning and implementing measures to prevent falls. If pt falls, initiate first aid measures if appropriate and notify physician, determine reason for fall, complete fall note, evaluate for PT/OT services, initiate pharmacy review of medications as appropriate. Skilled Interventions: venipuncture (include test ordered and frequency): routine labs and when ordered by PCP or any other providers oxygen saturation (frequency): every home visit weight (frequency):Yearly and as needed for visual weight gain, ssx of fluid overload. [facility] PT to weigh with wheelchair scale foot care/nail care prn cognition assessment; safety concerns administer other IM/SQ injection (med): Immunizations when due Men's health concerns: BPH, Urinary Incontinence preventative care primary care Education: medication administration/side effects bowel program appropriate skin care emergency management incontinence management nutritional needs s/s disease progression and complications safety measures hypertension management Men's health concerns: BPH, Urinary Incontinence care of cognitively impaired patient Individualized Outcomes: patient/family will demonstrate ability to perform procedures from plan of care to remain safe in the home patient will receive adequate care from caregiver to meet needs patient will maintain intact skin integrity or appropriate wound treatment patient/caregiver will verbalize outcomes to education patient/caregiver will verbalize/demonstrate management of incontinence patient will take medications as per MD orders patient will recognize changes that require reporting to [facility] staff patient will demonstrate correct use of adaptive equipment patient will be safe in home with environment adjusted to accommodate decrease in cognition and/or increase in disease progression Involvement of additional [facility] team members: N.P. assess and attach specific plan SW assess and attach specific plan RD assess and attach specific plan P.T. assess and attach specific plan Discharge Plan when able to remain in community safely with assistance of services and or family Per [facility] SYSTEM Discharge Policy Orla remained stable this IDT. No falls or hospitalization. Had Covid treated with antiviral medication prescribed by community PCP. Full recovered. Zora lives in a single family home with his Tory who is his primary caregiver/HCP/DPOA. Spouse has limited support. She has a brother Stephon who lives in [place] who will come over and stay with jahairat while spouse goes on errands. Vet requires assist with all adl's, dependent on all Iadl's. Receives [employer] services through [place] 9 hours a week ([facility]). PMHX: Parkinson's Disease, Squamous cell carcinoma, basal cell carcinoma, hypotension, BPH, hematuria, diverticular disease, internal hemorrhoids, sleep behavior disorder, PVD, migraines, solitary of lung, dupuytren's contracture, atrial flutter, HX of DVT, memory loss, sundowning, urinary incontinence, insomnia, GERD, A-fib, kidney stones. Past Surgical History: septoplasty, deputren's surgery both hands. 2 heart ablations for afib, 3 lithotripsies. SCC forearm, left. Colonoscopy: One is followed by multiple [facility] providers [facility] Impregnating Helper- Dr. Emil Davis Community PCP- Shirin Patrick [facility] Neurologist- Dr. Fabby Donahue [facility]- Dr. Lloyd Soares [facility]- Dr. Svitlana Hand PD- Spouse reports increase waking at night. followed by Dr.Rani Donahue Neurology. Appt 10/19/23. Will have office notes faxed to [place]. Atrial fibrillation - [facility] PCP put in consult for EKG and ZioPatch XT. EKG done on 10/16 and a 14 day ZioPatch XT was applied to . Orla was Educated on its use and how to press the event button if symptomatic. The was provided written instructions, contact phone numbers, and a postage-paid cross country and track and field coach box to return the equipment. Long-term current use of anticoagulant. [facility] PCP considering stopping anticoagulation depending on the 14 day loop monitor results and lockstitch topstitcher recommendations. Last cardiology visit 08/2021 with MIRELA Rea at [facility] cardiology manages and administers meds in pudding or applesauce, swallowing pills without difficulty. Updated med list left in home. Difficulty swallowing, now cutting up food into small pieces, tolerating well. No choking episodes this IDT. ambulates very short distance to the bathroom with walker and steadies him with gait belt. Shuffled gait. No falls this IDT. Incontinent of urine. uses quick change urine management wrap with oversized poise pad. states this method works for him. No skin breakdown. No getting this product through [facility]- Reviewed at IDT. Team agrees with POC /es/ JENNIFER SEGURA SEWAGE DISPOSAL ENGINEER [facility] COORDINATE MEASURING MACHINE PROGRAMMER Signed: 10/20/2023 18:26 Receipt Acknowledged By: 10/24/2023 07:01 /es/ SANJUANITA PEDROZA [facility] sales training representative 10/21/2023 09:36 /es/ Candice Musa, PaulD Clinical Secret Service Agent 10/20/2023 19:57 /es/ BLAKE MURILLO NP HB Nurse Practitioner 10/21/2023 13:16 /es/ RAMIN MENDIETA, PT, MS, ATP HB Physical Therapist 10/21/2023 08:25 /es/ RIGO FENTON, MS, RDN, LDN Staff Dietitian 10/21/2023 13:04 /es/ Suyapa Tirado [facility] HB Bowling Pin Setters Installer 10/21/2023 15:31 /es/ MEGAN Villa MD 10/21/2023 09:01 /es/ Olga Segal, MSN, ZIPPER TRIMMER [facility] Quality Worker for LUIS FERNANDO GARCIA 10/21/2023 12:33 /es/ PERI COUCH SEWAGE DISPOSAL ENGINEER [facility] sales training representative 10/21/2023 ADDENDUM STATUS: COMPLETED Nutrition-Case discussed at IDT meeting. Patient was last seen by [facility] dietitian on 05/11/23. See Consult Report/Nutrition and Credit Card Clerk for nutrition assessment. Plan: 1. Follow-up visit: annually or sooner as needed if change in condition 2. Monitor progress toward achievement of Nutrition Intervention Goals 3. Assess comprehension and motivation based on dietary changes made 4. Monitor progress toward achievement of Clinical Outcome Goals: Weight, Labs, Swallowing, Bowel movements 5. Follow for clinical issues at IDT meetings and with quarterly chart review. /es/ RIGO FENTON, MS, RDN, LDN Staff Dietitian Signed: 10/21/2023 08:27 10/21/2023 ADDENDUM STATUS: COMPLETED [facility] ZIPPER TRIMMER to continue to follow every 6-12 months for routine medical care and as needed for changes in condition. /sharron/ Olga Segal, MSN, ZIPPER TRIMMER [facility] Quality Worker Signed: 10/21/2023 09:01 10/21/2023 ADDENDUM STATUS: COMPLETED Continue to review medication regimen quarterly. /es/ Candice Musa PharmD Clinical Secret Service Agent Signed: 10/21/2023 09:37 10/21/2023 ADDENDUM STATUS: COMPLETED [facility] SW will provide caregiver supportive visits and psychosocial supportive visits as needed. [facility] SW will complete annual [facility] SW Assessment April 2024. /es/ OLEG Sandhu [facility] Bowling Pin Setters Installer Signed: 10/21/2023 13:05 10/21/2023 ADDENDUM STATUS: COMPLETED WHAT MATTERS What Matters was addressed at this visit. Comment: patient does not speak much; patient's spouse (caregiver) wants patient to progress his mobility MOBILITY -------- Mobility was addressed at this visit. Comment: JH-HLM = 7 Patient followed by [facility] PT for equipment needs such as shower wheelchair that was recently delivered. Follow up as required. /es/ RAMIN MENDIETA, PT, MS, ATP [facility] Physical Therapist Signed: 10/21/2023 13:17 JENNIFER SEGURARL [facility]
--- OUTSIDE RECORDS SUMMARY | 2024-05-30 08:34 | XMS_ITS ---
Author Name [place] Address [address] [place] [address] Care Team Providers Care Rock Crusher Operator Name Role Phone LUIS FERNANDO FONTANEZ Primary [...] PRESCRIPT ION [id number] 1 Jun 20, 2017 [id number] [phone] EAMON OLIVIA ERT PATIENT MEDICARE (WNR) MEDICARE (M) PART A Jun 20, 2014 PART A [id number] EAMON OLIVIA ERT PATIENT MEDICARE (WNR) MEDICARE (M) PART B Jun 20, 2014 PART B [id number] EAMON OLIVIA ERT PATIENT MEDICARE (WNR) MEDICARE (M) PART A Jun 20, 2014 PART A [id number] EAMON OLIVIA ERT PATIENT MEDICARE (WNR) MEDICARE (M) PART B Jun 20, 2014 PART B [id number] EAMON OLIVIA ERT PATIENT OPTUM RX PRESCRIPT ION RX Jun 20, 2023 THPRX [id number] EAMON OLIVIA ERT PATIENT OPTUM RX PRESCRIPT ION RX Jun 20, 2022 THPRX [id number] EAMON OLIVIA ERT PATIENT OPTUM RX PRESCRIPT ION RX Jun 20, 2022 THPRX [id number] DAVON OLIVIA JR PATIENT [facility] MAR Jun 20, 2017 [id number] EAMON OLIVIA ERT PATIENT [facility] PLAN [facility] TON PEÑA E Jun 20, 2017 [id number] [phone] DAVON OLIVIA JR PATIENT [facility] PLAN [facility] TON PEÑA E Jun 20, 2017 [id number] DAVON OLIVIA [facility] Jun 20, 2017 USP [id number] [phone] EAMON OLIVIA ERT [facility] Jun 20, 2023 [id number] EAMON OLIVIA ERT PATIENT Selected Encounter This section includes the information on record at [place] for the Encounter. Date/Time Encounter Type Encounter Description Reason Pro vider Source October 26, 2023 09:37 AM Outpatient Encounter [facility] PHYSIC EXTND(COMMUNITY HEALTH PROGRAM COORDINATOR,MACHINERY MECHANIC,PA) IHE Encounter Template Text not used by [facility] Plan of Treatment: Future Appointments (+ 6 months) and Future Tests (+/- 45 days) The Plan of Treatment section includes future care activities for the patient from all [place] treatmentfacilities. This section includes future appointments and future orders which are active, pending or scheduled. Future Appointments This section includes appointments that were scheduled to occur 6 months from the date of the Encounter, up to a maximum of 20 appointments. The data comes from all [place] treatment facilities. Appointment Date/Time Appointment Type Appointme nt Facility Name Dec 26, 2023 11:00 AM AMBULATORY - MEDICINE [facility] [place] [facility] Jan 04, 2024 01:00 PM AMBULATORY [...] REHAB MEDICIN E [facility] [place] [facility] Apr 12, 2024 11:00 AM AMBULATORY - REHAB MEDICIN E [facility] [place] [facility] Apr 26, 2024 09:00 AM AMBULATORY - MEDICINE [facility] [place] [facility] Apr 26, 2024 11:00 AM AMBULATORY - REHAB MEDICIN E [facility] [place] [facility] Lab Results: +/- 30 days of the encounter This section includes the Chemistry and Hematology Lab Results on record with [place] for the patient. Radiology Reports and Pathology Reports are provided separately, in subsequent sections. Lab Results This section contains the Chemistry/Hematology Results that were resulted 30 days before or 30 daysafter the date of the Encounter. Date/Time Source Result Type Result - Unit Interpretation Reference Range Comment Oct 10, 2023 02:00 PM [facility] [place] [facility] FOLATE (WROX) Specimen Type: SERUM No comment entered. Ordering Provider: LUIS FERNANDO FONTANEZ Report Released Date/Time: Oct 10, 2023 08:28 AM Reporting Lab: [place] [facility] [facility] [address] [facility] [facility] [address] Performing Lab: [place] [facility] [address] [facility] [address] FOLATE (WROX) 13.68 ng/mL >5.2 Oct 10, 2023 02:00 PM [facility] LIVER FUNCTION Specimen Type: SERUM No comment entered. Ordering Provider: LUIS FERNANDO FONTANEZ A Report Released Date/Time: Oct 10, 2023 08:28 AM Reporting Lab: [facility] [address] [facility] [facility] [address] Performing Lab: [address] [address] PROTEIN,TOTAL 7.0 g/dL 6.0-8.3 ALBUMIN 3.6 g/dL 3.5-5.0 ALKALINE PHOSPHATASE 77 U/L 40-150 AST 21 U/L 5-34 ALT 14 U/L BILIRUBIN, TOTAL 0.4 mg/dL 0.2-1.2 Oct 10, 2023 02:00 PM [facility] LIPID PANEL, NON FASTING Specimen Type: SERUM No comment entered. Ordering Provider: LUIS FERNANDO FONTANEZ A Report Released Date/Time: Oct 10, 2023 08:28 AM Reporting Lab: [address] [address] Performing Lab: [address] [address] CHOLESTEROL 210 mg/dL H TRIGLYCERIDE 84 mg/dL 0-150 LDL calculated 133 mg/dL H 0-129 CHOL/HDL 3.5 HDL CHOLESTEROL 60 mg/dL 40-60 Oct 10, 2023 02:00 PM [facility] VITAMIN D (25-OH) Specimen Type: SERUM No comment entered. Ordering Provider: LUIS FERNANDO FONTANEZ A Report Released Date/Time: Oct 10, 2023 08:28 AM Reporting Lab: [address] [address] Performing Lab: [address] [address] VITAMIN D (25-OH) 38 ng/mL 20-50 Oct 10, 2023 02:00 PM [facility] VITAMIN B12 Specimen Type: SERUM No comment entered. Ordering Provider: LUIS FERNANDO FONTANEZ Report Released Date/Time: Oct 10, 2023 08:28 AM Reporting Lab: [place] [facility] [facility] [address] [facility] [facility] [address] Performing Lab: [facility] [place] [facility] [address] [facility] [facility] [address] VITAMIN B12 767 pg/mL 200-900 Oct 10, 2023 02:00 PM [facility] TSH Specimen Type: SERUM No comment entered. Ordering Provider: LUIS FERNANDO FONTANEZ Report Released Date/Time: Oct 10, 2023 08:28 AM Reporting Lab: [place] [facility] [facility] [address] [facility] [address] Performing Lab: [facility] [place] [address] [address] TSH 2.22 u[IU]/mL 0.35-5.00 Oct 10, 2023 02:00 PM [facility] HEMOGLOBIN A1C PANEL Specimen Type: BLOOD [...] Oct 10, 2023 08:28 AM Reporting Lab: [facility] [place] [facility] [address] [facility] [facility] [address] Performing Lab: [facility] [address] [address] HEMOGLOBIN A1C 5.3 4.0-5.6 Oct 10, 2023 02:[address] [facility] FERRITIN Specimen Type: SERUM No comment entered. Ordering Provider: LUIS FERNANDO FONTANEZ Report Released Date/Time: Oct 10, 2023 08:28 AM Reporting Lab: [facility] [place] [address] [address] Performing Lab: [facility] [place] [facility] [address] [facility] [facility] [address] FERRITIN 106 ng/mL 20-300 Oct 10, 2023 02:00 PM [facility] IRON & TIBC PANEL Specimen Type: SERUM No comment entered. Ordering Provider: LUIS FERNANDO FONTANEZ Report Released Date/Time: Oct 10, 2023 08:28 AM Reporting Lab: [address] [address] Performing Lab: [address] [address] TIBC 330 ug/dL 204-475 IRON 102 ug/dL 40-160 Transferrin Saturation 30.9 20.0-50.0 Oct 10, 2023 02:00 PM [facility] CBC AND DIFF (AUTO) Specimen Type: BLOOD No comment entered. Ordering Provider: LUIS FERNANDO FONTANEZ Report Released Date/Time: Oct 10, 2023 08:28 AM Reporting Lab: [address] [address] Performing Lab: [address] [address] WBC 7.10 10*3/uL 4.50-11.00 RBC 5.13 10*6/uL 4.23-5.66 HGB 15.1 g/dL 12.8-17 HCT 45.5 39.2-50.4 MCV 88.7 fL 82-99 MCHC 33.2 g/dL 30.8-35.1 PLT 281 10*3/uL 140-360 RDW-CV 12.9 12.0-16.0 [place], Abs 0.67 10*3/uL 0.30-1.10 MCH 29.4 pg 26.2-32.6 Neut % 61.3 43.7-75.8 Lymph % 27.3 14.0-42.3 [place] % 9.4 5.1-13.7 Eos % 1.3 0.4-6.8 Baso % 0.4 0.1-2.0 Neut, Abs 4.35 10*3/uL 2.20-7.60 Lymph, Abs 1.94 10*3/uL 1.00-3.20 Eos, Abs 0.09 10*3/uL 0.03-0.44 Baso, Abs 0.03 10*3/uL 0.01-0.13 Immature Gran % 0.3 0.0-0.7 Immature Gran, Abs 0.02 10*3/uL 0.00-0.06 Oct 10, 2023 02:00 PM [facility] BASIC METABOLIC PANEL (non-fasting) Specimen Type: SERUM No comment entered. Ordering Provider: LUIS FERNANDO FONTANEZ Report Released Date/Time: Oct 10, 2023 08:28 AM Reporting Lab: [facility] [address] [facility] [address] Performing Lab: [facility] [address] [facility] [address] UREA NITROGEN 16 mg/dL 7-25 GLUCOSE 82 [...] and tobacco- related health factors from the [place] facility where the Encounter took place. Current Smoking Status This section includes the most current smoking, or tobacco-related health factor, from the [place] facility where the Encounter took place. Date/Time Current Smoking Status Comment Raghu ity Jan 19, 2023 12:24 PM VA-TOBACCO NEVER USED [facility] Tobacco Use History This section includes a history of the smoking, or tobacco-related health factors, that were collected on or before the date of the Encounter. The data comes from the [place] facility where the Encounter took place. Date/Time Smoking Status/Tobacco Use Comment F acneri Jan 15, 2021 11:00 AM [place]-TOBACCO NEVER USED [facility] Advance Directives: All historical and current Section Date Range: From patient's date of to the date document was created. This section includes ALL of a patient's completed or amended [place] Advance and Rescinded Directives. The entries below indicate that a directive exists for the patient, but an actual copy is not included with this document. The data comes from all [place] facilities. Date Advance Directives Provider Source Jan 20, 2021 ADVANCE DIRECTIVE [facility] ARAUZ [facility] Encounter Notes: All associated encounter notes This section contains the clinical notes associated to the Encounter. Date/Time Encounter Note(s) Provider Source October 19, 2023 09:37 AM ADMINISTRATIVE NOT E: LOCAL TITLE: FAX/MAIL RECEIVED STANDARD TITLE: ADMINISTRATIVE NOTE DATE OF NOTE: OCTOBER 19, 2023@09:37 ENTRY DATE: OCTOBER 26, 2023@09:38:11 AUTHOR: KALYAN BARBER EXP COSIGNER: URGENCY: STATUS: COMPLETED Document Received On: October Document Type: Office Visit Note Date of Service: October Facility and or Provider: [facility] Contact Information: PCP of Record: LUIS FERNANDO FONTANEZ Next visit with PCP: 12/26/2023 11:00 [facility]UROLOG[facility] Primary Care May keep copies of this document for up to 14 days and send the original for scanning. /sharron/ KALYAN BARBER [facility] MILK TESTER Signed: 10/26/2023 09:38 Receipt Acknowledged By: 10/26/2023 17:43 /sharron/ JENNIFER SEGURA, CLERICAL WAREHOUSE WORKER [facility] INTERNATIONAL EDITORIAL PRODUCER 10/26/2023 11:07 /sharron/ LUIS FERNANDO FONTANEZ RETAIL ASSISTANT-C HB NURSE PRACTITIONER KALYAN BARBER [facility]
--- OUTSIDE RECORDS SUMMARY | 2024-05-30 08:36 | XMS_ITS | Encounter Summary ---
Author Name [place] Address [address] [place] [id number] Care Team Providers Care 3Rd Grade Teacher Name Role Phone HUSEYIN LUIS FERNANDO Primary Care Provider Unavailabl e AMANOD OHARA Unavailable Unavailable RARAMIN KEYES Unavailable Unavailable [...] PRESCRIPT ION [id number] 1 Jun 20, 2017 [id number] [phone] EAMON OLIVIA ERT PATIENT MEDICARE (WNR) MEDICARE (M) PART A Jun 20, 2014 PART A [id number] EAMON OLIVIA ERT PATIENT MEDICARE (WNR) MEDICARE (M) PART B Jun 20, 2014 PART B [id number] EAMON OLIVIA ERT PATIENT MEDICARE (WNR) MEDICARE (M) PART B Jun 20, 2014 PART B [id number] [phone] EAMON OLIVIA ERT PATIENT MEDICARE (WNR) MEDICARE (M) PART A Jun 20, 2014 PART A [id number] EAMON OLIVIA ERT PATIENT OPTUM RX PRESCRIPT ION RX Jun 20, 2023 THPRX [id number] [phone] EAMON OLIVIA ERT PATIENT OPTUM RX PRESCRIPT ION RX Jun 20, 2022 THPRX [id number] [phone] EAMON OLIVIA ERT PATIENT OPTUM RX PRESCRIPT ION RX Jun 20, 2022 THPRX [id number] DAVON OLIVIA JR PATIENT [facility] TON AugJun 20, 2017 [id number] EAMON OLIVIA ERT PATIENT [facility] MARIANA E Jun 20, 2017 [id number] DAVON OLIVIA JR PATIENT [facility] T[facility] PEÑA E Jun 20, 2017 [id number] DAVON OLIVIA JR PATIENT [facility] USP Jun 20, 2017 USP [id number] EAMON OLIVIA ERT PATIENT [facility] Jun 20, 2023 [id number] [phone] EAMON OLIVIA ERT PATIENT Selected Encounter This section includes the information on record at [place] for the Encounter. Date/Time Encounter Type Encounter Description Reason Pro vider Source Aug 19, 2023 12:00 AM Outpatient Encounter COMMUNITY CARE CONSULT IHE Encounter Template Text not used by [place] Plan of Treatment: Future Appointments (+ 6 months) and Future Tests (+/- 45 days) The Plan of Treatment section includes future care activities for the patient from all [place] treatmentfacilities. This section includes future appointments and future orders which are active, pending or scheduled. Future Appointments This section includes appointments that were scheduled to occur 6 months from the date of the Encounter, up to a maximum of 20 appointments. The data comes from all [place] treatment facilities. Appointment Date/Time Appointment Type Appointme nt Facility Name Oct 17, 2023 01:00 PM AMBULATORY - MEDICINE [facility] Oct 17, 2023 01:15 PM [facility] Dec 26, 2023 11:00 AM AMBULATORY - [facility]IC[facility] Jan 04, 2024 01:00 PM AMBULATORY - NONE [facility] Feb 02, 2024 03:00 PM [facility] Feb 14, 2024 12:30 PM [facility] Social History: Smoking Status (Most current) and Tobacco Use (All prior to encounter date) This section includes the most current, and the historical, smoking and tobacco- related health factors from the [place] facility where the Encounter took place. Current Smoking Status This section includes the most current smoking, or tobacco-related health factor, from the [place] facility where the Encounter took place. Date/Time Current Smoking Status Comment Facil ity Jan 19, 2023 12:24 PM VA-TOBACCO NEVER USED [facility] Tobacco Use History This section includes a history of the smoking, or tobacco-related health factors, that were collected on or before the date of the Encounter. The data comes from the [place] facility where the Encounter took place. Date/Time Smoking Status/Tobacco Use Comment F acility Jan 15, 2021 11:00 AM VA-TOBACCO NEVER USED [facility] Advance Directives: All historical and current Section Date Range: From patient's date of to the date document was created. This section includes ALL of a patient's completed or amended [place] Advance and Rescinded Directives. The entries below indicate that a directive exists for the patient, but an actual copy is not included with this document. The data comes from all [place] facilities. Date Advance Directives Provider Source Jan 20, 2021 ADVANCE DIRECTIVE BENTON ARAUZ [facility] Encounter Notes: All associated encounter notes This section contains the clinical notes associated to the Encounter. Date/Time Encounter Note(s) Provider Source Aug 19, 2023 12:00 AM NONVA CONSULT: LOCAL TITLE: COMMUNITY CARE-CONSULT RESULT NOTE STANDARD TITLE: NONVA CONSULT DATE OF NOTE: AUG 19, 2023 ENTRY DATE: NOVEMBER 09, 2023@13:58:19 AUTHOR: JOSE ROE EXP COSIGNER: URGENCY: STATUS: COMPLETED VistA Imaging - Scanned Document SCANNED DOCUMENT SIGNATURE NOT REQUIRED Electronically Filed: 11/09/2023 by: JOSE ROE LICENSED PRACTICAL NURSE JOSE ROE [facility]
--- OUTSIDE RECORDS SUMMARY | 2024-05-30 08:36 | XMS_ITS | Encounter Summary ---
Author Name [facility] [place] Address [address] [place] [id number] Care Team Providers Care Search Engineer Name Role Phone HUSEYIN LUIS FERNANDO Primary Care Provider Unavailabl e AMANDO OHARA Unavailable Unavailable RAMIN MENDIETA Unavailable Unavailable SUNIL, KALYAN Unavailable Unavailable GOLD, [...] PRESCRIPT ION [id number] 1 Jun 20, 2017 [id number] EAMON OLIVIA ERT PATIENT MEDICARE (WNR) MEDICARE (M) PART A Jun 20, 2014 PART A [id number] EAMON OLIVIA ERT PATIENT MEDICARE (WNR) MEDICARE (M) PART B Jun 20, 2014 PART B [id number] EAMON OLIVIA ERT PATIENT MEDICARE (WNR) MEDICARE (M) PART A Jun 20, 2014 PART A [id number] EAMON OLIVIA ERT PATIENT MEDICARE (WNR) MEDICARE (M) PART B Jun 20, 2014 PART B [id number] EAMON OLIVIA ERT PATIENT OPTUM RX PRESCRIPT ION RX Jun 20, 2023 THPRX [id number] [phone] EAMON OLIVIA ERT PATIENT OPTUM RX PRESCRIPT ION RX Jun 20, 2022 THPRX [id number] EAMON OLIVIA ERT PATIENT OPTUM RX PRESCRIPT ION RX Jun 20, 2022 THPRX [id number] [phone] DAVON OLIVIA JR PATIENT [facility] MAR Jun 20, 2017 [id number] EAMON OLIVIA ERT PATIENT [facility] E Jun 20, 2017 [id number] DAVON OLIVIA JR PATIENT [facility] Jun 20, 2017 [id number] DAVON OLIVIA JR PATIENT [facility] USP Jun 20, 2017 USP [id number] EAMON OLIVIA ERT PATIENT [facility] Jun 20, 2023 [id number] EAMON OLIVIA ERT PATIENT Selected Encounter This section includes the information on record at [place] for the Encounter. Date/Time Encounter Type Encounter Description Reason Provider Source November 10, 2023 05:30 PM Outpatient Encounter TELEPHONE [facility] ICD-10-CM Z79.01 jail (current) use of anticoagulants LUIS FERNANDO GARCIA [facility] Encounter Template Text not used by [place] Assessments - Encounter Diagnoses This section includes the primary and secondary diagnoses documented for the Encounter. 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 This section includes future appointments and future orders which are active, pending or scheduled. Future Appointments This section includes appointments that were scheduled to occur 6 months from the date of the Encounter, up to a maximum of 20 appointments. The data comes from all [place] treatment facilities. Appointment Date/Time Appointment Type Appointme nt Facility Name Dec 26, 2023 11:00 AM AMBULATORY - [place]ICINE [place] [facility] [place] [facility] Jan 04, 2024 01:00 PM AMBULATORY - NONE [facility] [place] [facility] Feb 02, 2024 03:00 PM AMBULATORY - REHAB MEDICIN E [facility] [place] [facility] Feb 14, 2024 12:30 PM AMBULATORY - REHAB MEDICIN E [facility] [place] [facility] Mar 15, 2024 10:00 AM AMBULATORY - REHAB MEDICIN E [facility] [place] [facility] Mar 22, 2024 08:00 AM AM[place]ULATORY - [place]ICINE [place] [facility] [place] [facility] Mar 22, 2024 01:00 PM AMBULATORY - NONE [facility] [place] [facility] Mar 27, 2024 02:30 PM AMBULATORY - MEDICINE [place] [facility] [place] [facility] Mar 29, 2024 11:00 AM AMBULATORY - REHAB MEDICIN E [facility] [place] [facility] Apr 12, 2024 11:00 AM AMBULATORY - REHAB MEDICIN E [facility] [place] [facility] Apr 26, 2024 09:00 AM AMBULATORY - [place]ICINE [place] [facility] [place] [facility] Apr 26, 2024 11:00 AM AMBULATORY - REHAB MEDICIN E [facility] [place] [facility] Social History: Smoking Status (Most current) and Tobacco Use (All prior to encounter date) This section includes the most current, and the historical, smoking and tobacco- related health factors from the [place] facility where the Encounter took place. Current Smoking Status This section includes the most current smoking, or tobacco-related health factor, from the [place] facility where the Encounter took place. Date/Time Current Smoking Status Shonda melchor Jan 19, 2023 12:24 PM VA-TOBACCO NEVER USED [facility] Tobacco Use History This section includes a history of the smoking, or tobacco-related health factors, that were collected on or before the date of the Encounter. The data comes from the [place] facility where the Encounter took place. Date/Time Smoking Status/Tobacco Use Comment Flex jc Jan 15, 2021 11:00 AM VA-TOBACCO NEVER USED [facility] Advance Directives: All historical and current Section Date Range: From patient's date of to the date document was created. This section includes ALL of a patient's completed or amended [place] Advance and Rescinded Directives. The entries below indicate that a directive exists for the patient, but an actual copy is not included with this document. The data comes from all [place] facilities. Date Advance Directives Provider Source Jan 20, 2021 ADVANCE DIRECTIVE REGLABENTON ELZA Lora Ginna [facility] Encounter Notes: All associated encounter notes This section contains the clinical notes associated to the Encounter. Date/Time Encounter Note(s) Provider Source Feb 06, 2024 03:22 PM ADDENDUM: LOCAL TITLE: Addendum STANDARD TITLE: ADDENDUM DATE OF NOTE: FEB 06, 2024@15:22:09 ENTRY DATE: FEB 06, 2024@15:22:11 AUTHOR: AMANDO OHARA COSIGNER: URGENCY: STATUS: COMPLETED Forwarding to HB OT and [facility] PT /es/ AMANDO OHARA WEB USER EXPERIENCE STRATEGIST [facility]/HB Signed: 02/06/2024 15:22 Receipt Acknowledged By: 02/06/2024 15:33 /es/ DANIELLE FLORES OTR/L [facility] OCCUPATIONAL THERAPIST 02/06/2024 15:50 /es/ SPRING NEVES PT HB PHYSICAL THERAPIST --- Original Document --- 02/01/24 HB[facility] POST FALL ASSESSMENT NOTE: [facility] FALL ASSESSMENT NOTE Date of Fall: 01/27/24 Time of Fall: AM Manufacturing Worker: Rising Fall was witnessed: Yes, by whom: Description of Fall: Where: getting out of wheelchair How: lost balance Injury: Yes Location: right elbow abrasion Side: Right Other Information Pertinent to Fall: Level of Injury: 1 = Minor (bruises, scrapes, no increase in level of care) Symptoms Prior to Fall: other (specific) lost balance Assistive Device in Use at Time of Fall: manual wheelchair Contributing Factors at time of fall: none Environmental Factors: none Contributing diagnosis to current fall: neurological (ALS, MS, Parkinson's) If fall occurred while HC/HBPC staff was providing direct patient care in the home, report on Joint Patient Safety Reporting Site (JPSR) found on [facility] Intranet home page. No, not applicable Is patient currently receiving PT/OT services: No Pt referred to PT/OT: Yes Patient Declines NO Interventions: PCP Notified Program Follow-up: Interdisciplinary Team reviews recent falls and modifies Patient's care plan as appropriate. Pantry Attendant (or designee) tracks all falls, observes trends, and modifies Falls Prevention Plan as needed. Fall data is reported to [facility] Patient Cover Stitch Machine Operator on a quarterly basis. /sharron/ LUIS FERNANDO HICKEY-C HB NURSE PRACTITIONER Signed: 02/01/2024 17:25 Receipt Acknowledged By: 02/06/2024 15:22 /consuelo OHARA WEB USER EXPERIENCE STRATEGIST [facility] 02/01/2024 19:03 /sharron/ PERI COUCH BUILDING PRESSURE WASHER HB[facility] mattress spring encaser [facility] Feb 01, 2024 05:23 PM NURSING FALL RISK ASSESSMENT NOTE: LOCAL TITLE: [facility] POST FALL ASSESSMENT NOTE STANDARD TITLE: NURSING FALL RISK ASSESSMENT NOTE DATE OF NOTE: FEB 01, 2024@17:23 ENTRY DATE: FEB 01, 2024@17:23:15 AUTHOR: LUIS FERNANDO GARCIA COSIGNER: URGENCY: STATUS: COMPLETED [facility] POST FALL ASSESSMENT NOTE Has ADDENDA [facility] FALL ASSESSMENT NOTE Date of Fall: 01/27/24 Time of Fall: AM Manufacturing Worker: Rising Fall was witnessed: Yes, by whom: Description of Fall: Where: getting out of wheelchair How: lost balance Injury: Yes Location: right elbow abrasion Side: Right Other Information Pertinent to Fall: Level of Injury: 1 = Minor (bruises, scrapes, no increase in level of care) Symptoms Prior to Fall: other (specific) lost balance Assistive Device in Use at Time of Fall: manual wheelchair Contributing Factors at time of fall: none Environmental Factors: none Contributing diagnosis to current fall: neurological (ALS, MS, Parkinson's) If fall occurred while /[facility] staff was providing direct patient care in the home, report on Joint Patient Safety Reporting Site (JPSR) found on [facility] Intranet home page. No, not applicable Is patient currently receiving PT/OT services: No Pt referred to PT/OT: Yes Patient Declines NO Interventions: PCP Notified Program Follow-up: Interdisciplinary Team reviews recent falls and modifies Patient's care plan as appropriate. Pantry Attendant (or designee) tracks all falls, observes trends, and modifies Falls Prevention Plan as needed. Fall data is reported to [facility] Patient Cover Stitch Machine Operator on a quarterly basis. /sharron/ LUIS FERNANDO HICKEY-C [facility] NURSE PRACTITIONER Signed: 02/01/2024 17:25 Receipt Acknowledged By: 02/06/2024 15:22 /es/ AMANDO CHAPUT WEB USER EXPERIENCE STRATEGIST [facility] 02/01/2024 19:03 /sharron/ PERI COUCH BUILDING PRESSURE WASHER [facility] mattress spring encaser for JENNIFER SEGURA 02/06/2024 ADDENDUM STATUS: COMPLETED Forwarding to [facility] OT and [facility] PT /es/ [facility] US[facility] EXPERIENCE STRATEGIST [facility] Signed: 02/06/2024 15:22 Receipt Acknowledged By: * AWAITING SIGNATURE * DANIELLE FLORES * AWAITING SIGNATURE * SPRING [place]EVES LEIGH A [place] [facility] [place] [facility] Jan 30, 2024 04:24 AM LETTERS: LOCAL TITLE: PATIENT LETTER (B) STANDARD TITLE: LETTERS DATE OF NOTE: JAN 30, 2024@04:24 ENTRY DATE: JAN 30, 2024@04:24:21 AUTHOR: LUIS FERNANDO GARCIA EXP COSIGNER: URGENCY: STATUS: COMPLETED [facility] [address] [facility] [id number] [phone] DAVON OLIVIA [address], [place] [address] Date:JAN 30, 2024 Dear DAVON OLIVIA, I recently reviewed your sleep study and it appears you have been mailed the results. Due to the diagnosis of obstructive sleep apnea and your history of Atrial fibrillation and daytime sleepiness I have referred you to respiratory therapy for equipment set up per the recommendation of the sleep provider. They will be in touch. Please call [phone] if you have any questions or concerns. Sincerely, Luis Fernando Garcia Nurse Practitioner Home Based Primary care [facility] Upcoming Appointments: 02/02/2024 15:00 CWM NO VVC SPEECH 1 APPOINTMENT ABBREVIATION CASSIDY (SPOPC OR SO = [place], [address] [facility]) (GOPC OR GO = [place], [address] [facility]) (NHM or NO = [facility]) (VVC - Video Call) (Tel-X Telephone Visit) ( - Telehealth) LUIS FERNANDO GARCIA [place] [facility] [place] [facility] November 11, 2023 12:34 PM HB[facility] NOTE: LOCAL TITLE: HBPC TELEPHONE NOTE STANDARD TITLE: HB[facility] NOTE DATE OF NOTE: NOVEMBER 11, 2023@12:34 ENTRY DATE: NOVEMBER 11, 2023@12:34:26 AUTHOR: LUIS FERNANDO GARCIA EXP COSIGNER: URGENCY: STATUS: COMPLETED Duration of call: 30 S:Called DAVON OLIVIA PHONE NUMBER [CELLULAR] - NONE FOUND PATIENT PHONE - TelePhone visit to discuss ZioPatch results and Cardiology E consult with and his . Patient had a min HR of 50 bpm, max HR of 146 bpm, and avg HR of 69 bpm. Predominant underlying rhythm was Sinus Rhythm. 16 Supraventricular Tachycardia runs occurred, the run with the fastest interval lasting 13 beats with a max rate of 146 bpm, the longest lasting 12.3 secs with an avg rate of 118 bpm. Isolated SVEs were occasional (2.1%, [id number]), SVE Couplets were rare (<1.0%, 244), and SVE Triplets were rare (<1.0%, 32). Isolated VEs were rare (<1.0%), VE Couplets were rare (<1.0%), and no VE Triplets were present. Ventricular Bigeminy and Trigeminy were present. There were no triggered or diary events noted. Atrial fibrillation was not detected during this period of time. Patient had occasional episodes of isolated supraventricular ectopy. Patient did not report any symptoms at the time of the SVT. Cardiology E consult: REFason for consult: Management of antoiocoagulation in 73 y/o gentleman with past hx of a fib s/p ab;lation now in NSR with functional decline and increased risk of falls due to parkinson's disease Mr Olivia is a frail 71-year-old male with dyslipidemia, persistent AF s/p cryo-PVI (06/2017), history of DVT, kidney stones followed by urology with failed lithotripsy and intermittent hematuria, anxiety and depression with Parkinson's disease and his functional capacity has significantly declined. He is a total ADL assist at home with . He is a high fall risk. Please evaluate recent findings below and make recommendations if it is appropriate to stop Apixaban due to fall risk, persistent renal stones. Although recent event monitor (two weeks) did not show any afib, this patient may be at high risk for thromboembilic phenomenon due to elevated CHDS-VASC score of 2 (age+ PVD). Risks and benefits of AC should be discussed with patient and family through shared decision making. Alternatively patient can be considered for left atrial appendage occlusion with a Watchman procedure. Please submit a cardiology EP consult to evaluate patient for watchman procedure. O: A+Ox4, breathing sounds unlabored. A/P: Atrial Fibrillation - on anticoagulation. Discussed in detail continuting vs discontinuing Apixaban with . She understood all information and will think about it and let me know how she would like to proceed. Reassured that despite mild hematuria CBC is stable. Time spent: Review of medical records: 20 min Time spent w patient including shared decision makin min Post visit documentation: 10 min Total time: min RTC (see RTC order) Upcoming Appointments: 12/26/2023 11:00 [facility] CARE-NEUROLOGY 01/04/2024 13:00 CWM/NO/VVC/HOMESLEEP 1 (x)medications reconciled No barriers; Patient/family understands and agrees to current treatment plan. If pt has any questions, concerns, or changes in current health status he/she will call or come in to the [facility]. /sharron/ LUIS FERNANDO GARCIA CIVIL ENGINEERING DRAFTER-C HB NURSE PRACTITIONER Signed: 11/11/2023 12:40 Receipt Acknowledged By: 11/11/2023 14:08 /sharron/ JENNIFER SEGURA RN BSN [facility] IMCU NURSE LUIS FERNANDO GARCIA [place] [facility]
--- OUTSIDE RECORDS SUMMARY | 2024-05-30 08:36 | XMS_ITS | Encounter Summary ---
Author Name [place] Address [address] [place] [address] Care Team Providers Care Calculator Operator Name Role Phone LUIS FERNANDO FONTANEZ [...] ALT ION [id number] 1 Jun 20, 2017 [id number] [phone] EAMON OLIVIA ERT PATIENT MEDICARE (WNR) MEDICARE (M) PART A Jun 20, 2014 PART A [id number] EAMON OLIVIA ERT PATIENT MEDICARE (WNR) MEDICARE (M) PART B Jun 20, 2014 PART B [id number] EAMON OLIVIA ERT PATIENT MEDICARE (WNR) MEDICARE (M) PART A Jun 20, 2014 PART A [id number] EAMON OLIVIA ERT PATIENT MEDICARE (WNR) MEDICARE (M) PART B Jun 20, 2014 PART B [id number] EAMON OLIVIA ERT PATIENT OPTUM RX PRESCRIPT ION RX Jun 20, 2023 THPRX [id number] EAMON OLIVIA ERT PATIENT OPTUM RX PRESCRIPT ION RX Jun 20, 2022 THPRX [id number] EAMON OLIVIA ERT PATIENT OPTUM RX PRESCRIPT ION RX Jun 20, 2022 THPRX [id number] [phone] DAVON OLIVIA JR PATIENT [facility] MAR Jun 20, 2017 [id number] EAMON OLIVIA ERT PATIENT [facility] Jun 20, 2017 [id number] DAVON OLIVIA JR PATIENT [facility] Jun 20, 2017 [id number] DAVON OLIVIA JR PATIENT [facility] USP Jun 20, 2017 [id number] EAMON OLIVIA ERT PATIENT [facility] Jun 20, 2023 [id number] [phone] EAMON OLIVIA ERT PATIENT Selected Encounter This section includes the information on record at [place] for the Encounter. Date/Time Encounter Type Encounter Description Reason Provider Source November 17, 2023 03:53 PM QNHP OL DIG ASSMT&MGMT 5-10 CLINICAL PHARMACY ICD-10-CM G20.A1 Parkinson's dis w/o dyskinesia, w/o mention of fluctuations JOSE MARIA SHERIDAN E Encounter Template Text not used by [place] Assessments - Encounter Diagnoses This section includes the primary and secondary diagnoses documented for the Encounter. Date/Time Primary/Secondary Diagnosis Diagnosis Name Provider Source November 17, 2023 04:00 PM PRIMARY Parkinson's dis w/o dyskinesia, w/o mention of fluctuations JOSE MARIA SHERIDAN [place] [facility] [place] [facility] Plan of Treatment: Future Appointments (+ 6 months) and Future Tests (+/- 45 days) The Plan of Treatment section includes future care activities for the patient from all [place] [facility]. This section includes future appointments and [...] 26, 2023 11:00 AM AMBULATORY - MEDICINE [place] [facility] [place] [facility] Jan 04, 2024 01:00 PM AMBULATORY - NONE [facility] [place] [facility] Feb 02, 2024 03:00 PM AMBULATORY - REHAB MEDICIN E [facility] [place] [facility] Feb 14, 2024 12:30 PM AMBULATORY - REHAB MEDICIN E [facility] [place] [facility] Mar 15, 2024 10:00 AM AMBULATORY - REHAB MEDICIN E [place] [facility] [place] [facility] Mar 22, 2024 08:00 AM AMBULATORY - MEDICINE [place] [facility] [place] [facility] Mar 22, 2024 01:00 PM AMBULATORY - NONE [place] [facility] [place] [facility] Mar 27, 2024 02:30 PM AMBULATORY - MEDICINE [place] [facility] [place] [facility] Mar 29, 2024 11:00 AM AMBULATORY - REHAB MEDICIN E [facility] [place] [facility] Apr 12, 2024 11:00 AM AMBULATORY - REHAB MEDICIN E [facility] [place] [facility] Apr 26, 2024 09:00 AM AMBULATORY - MEDICINE [place] [facility] [place] [facility] Apr 26, 2024 11:00 AM AMBULATORY - REHAB MEDICIN E [facility] [place] [facility] Social History: Smoking Status (Most current) and Tobacco Use (All prior to encounter date) This section includes the most current, and the historical, smoking and tobacco- related health factors from the [place] facility where the Encounter took place. Current Smoking Status This section includes the most current smoking, or tobacco-related health factor, from the [place] facility where the Encounter took place. Date/Time Current Smoking Status Shonda melchor Jan 19, 2023 12:24 PM VA-TOBACCO NEVER USED [facility] [place] Tobacco Use History This section includes a history of the smoking, or tobacco-related health factors, that were collected on or before the date of the Encounter. The data comes from the [place] facility where the Encounter took place. Date/Time Smoking Status/Tobacco Use Comment F hosea Jan 15, 2021 11:00 AM VA-TOBACCO NEVER USED [facility] [place] Advance Directives: All historical and current [...] Provider Source Jan 20, 2021 ADVANCE DIRECTIVE LIYAH ARAUZERINE ELZA Lora Ginna [facility] Encounter Notes: All associated encounter notes This section contains the clinical notes associated to the Encounter. Date/Time Encounter Note(s) Provider Source November 17, 2023 03:53 PM PHARMACY OUTPATIEN T MEDICATION MGT NOTE: LOCAL TITLE: [facility] PRESCRIPTION NOTE STANDARD TITLE: PHARMACY OUTPATIENT MEDICATION MGT NOTE DATE OF NOTE: NOVEMBER 17, 2023@15:53 ENTRY DATE: NOVEMBER 17, 2023@15:53:44 AUTHOR: JOSE MARIA SHERIDAN EXP COSIGNER: URGENCY: STATUS: COMPLETED is approved for community care Neurology though 06/2024. Received prescription for the following: Glycopyrrolate 2mg BID-TID prn secretions Medical history relevant to this request: -- Pt has PMH of Parkinson's Disease with sialorrhea requiring treatment. Per pharmacy review, non-formulary/prior authorization is: [x] Approved [ ] Denied Comments: Glycopyrrolate carries lower risk of anticholinergic ADEs d/t limited crossing of the blood brain barrier, which is preferred in elderly pt with Parkinson's Disease. Time Spent: 10 mins /sharron/ Paul PadillaD, BCACP Clinical Edge Bander Hand Signed: 11/17/2023 16:01 JOSE MARIA SHERIDAN [facility] [place]
--- OUTSIDE RECORDS SUMMARY | 2024-05-30 08:36 | XMS_ITS | Encounter Summary ---
Author Name [facility] [place] Organization [facility] [place] [facility] [place] Address [address] [place] [address] Care Team Providers Care Urologist Md Name Role Phone LUIS FERNANDO FONTANEZ Primary [...] SIMS ION [id number] 1 Jun 20, 2017 [id number] EAMON OLIVIA ERT PATIENT MEDICARE (WNR) MEDICARE (M) PART A Jun 20, 2014 PART A [id number] [phone] EAMON OLIVIA ERT PATIENT MEDICARE (WNR) MEDICARE (M) PART B Jun 20, 2014 PART B [id number] [phone] EAMON OLIVIA ERT PATIENT MEDICARE (WNR) MEDICARE (M) PART B Jun 20, 2014 PART B [id number] EAMON OLIVIA ERT PATIENT MEDICARE (WNR) MEDICARE (M) PART A Jun 20, 2014 PART A [id number] EAMON OLIVIA ERT PATIENT [employer] RX PRESCRIPT ION RX Jun 20, 2023 THPRX [id number] EAMON OLIVIA ERT PATIENT [facility] RX PRESCRIPT ION RX Jun 20, 2022 THPRX [id number] EAMON OLIVIA ERT PATIENT [facility] RX PRESCRIPT ION RX Jun 20, 2022 THPRX [id number] DAVON OLIVIA JR PATIENT [facility] Jun 20, 2017 [id number] [phone] EAMON OLIVIA ERT PATIENT [facility] E Jun 20, 2017 [id number] DAVON OLIVIA JR PATIENT [facility] E Jun 20, 2017 [id number] DAVON OLIVIA JR PATIENT [facility]1983 [facility] Jun 20, [facility] [id number] EAMON OLIVIA ERT PATIENT [facility] Jun 20, 2023 [id number] EAMON OLIVIA ERT PATIENT Selected Encounter This section includes the information on record at [place] for the Encounter. Date/Time Encounter Type Encounter Description Reason Provider Source November 10, 2023 04:46 PM HC PRO PHONE CALL 5-10 MIN TELEPHONE [facility] ICD-10-CM R31.9 Hematuria, unspecified RISING,JENNIFER L IHE Encounter Template Text not used by [place] Assessments - Encounter Diagnoses This section includes the primary and secondary diagnoses documented for the Encounter. Date/Time Primary/Secondary Diagnosis Diagnosis Name Provider Source November 10, 2023 04:46 PM PRIMARY Hematuria, unspecified RISING,JENNIFER L [place] [facility] [place] [facility] Plan of Treatment: Future Appointments [...] - MEDICINE [facility] [place] [facility] Jan 04, 2024 01:00 PM AMBULATORY - NONE [facility] [place] [facility] Feb 02, 2024 03:00 PM AMBULATORY - REHAB MEDICIN E [facility] [place] [facility] Feb 14, 2024 12:30 PM AMBULATORY - REHAB MEDICIN E [facility] [place] [facility] Mar 15, 2024 10:00 AM AMBULATORY - REHAB MEDICIN E [facility] [place] [facility] Mar 22, 2024 08:00 AM AMBULATORY - MEDICINE [facility] [place] [facility] Mar 22, 2024 01:00 PM AMBULATORY - NONE [facility] [place] [facility] Mar 27, 2024 02:30 PM AMBULATORY - MEDICINE [facility] [place] [facility] Mar 29, 2024 11:00 AM AMBULATORY - REHAB MEDICIN E [facility] [place] [facility] Apr 12, 2024 11:00 AM AMBULATORY - REHAB MEDICIN E [facility] [place] [facility] Apr 26, 2024 09:00 AM AMBULATORY - MEDICINE [facility] [place] [facility] Apr 26, 2024 11:00 AM AMBULATORY - REHAB MEDICIN E [facility] [place] [facility] Social History: Smoking Status (Most [...] 19, 2023 12:24 PM VA-TOBACCO NEVER USED [facility] Tobacco Use History This section includes a history of the smoking, or tobacco-related health factors, that were collected on or before the date of the Encounter. The data comes from the [place] facility where the Encounter took place. Date/Time Smoking Status/Tobacco Use Comment F acility Jan 15, 2021 11:00 AM VA-TOBACCO NEVER USED [facility] Advance Directives: All historical and current [...] Provider Source Jan 20, 2021 ADVANCE DIRECTIVE DAVIDSHAJIBENTON Chacko [facility] Encounter Notes: All associated encounter notes This section contains the clinical notes associated to the Encounter. Date/Time Encounter Note(s) Provider Source November 10, 2023 04:46 PM [facility] NOTE: LOCAL TITLE: [facility] TELEPHONE NOTE STANDARD TITLE: HB NOTE DATE OF NOTE: NOVEMBER 10, 2023@16:46 ENTRY DATE: NOVEMBER 10, 2023@16:46:14 AUTHOR: JENNIFER SEGURA EXP COSIGNER: URGENCY: STATUS: COMPLETED Duration of call: 5 minutes RNCM received phone call from [place]'s spouse Tory who was inquiring if we received the test results of the Zio monitor. Tory wants to discontinue the apixaban. Tory reports having hematuria again and has urologist appt 11/17. Denies any other bleeding. Notified Tory that RNCM reached out to [facility] PCP and PCP will call her to discuss Risk vs Benefits about discontinuing apixaban. Explained phone call won't be today due to it being so late. /sharron/ JENNIFER SEGURA RN BSN [facility] MOBILITY DEVELOPER Signed: 11/10/2023 16:55 Receipt Acknowledged By: 11/10/2023 17:38 /sharron/ LUIS FERNANDO [facility] NURSE PRACTITIONER JENNIFER SEGURA [facility]
--- OUTSIDE RECORDS SUMMARY | 2024-05-30 08:37 | XMS_ITS ---
Author Name [facility] Address [address] [place] [id number] Care Team Providers Care Fiberline Supervisor Name Role Phone HUSEYIN LUIS FERNANDO Primary Care Provider Unavailabl e AMANDO OHARA Unavailable Unavailable RARAMIN KEYES Unavailable Unavailable SUNIL, KALYAN Unavailable Unavailable GOLD, DAMANIVAL Unavailable Unavailable JOSSY RIGO Unavailable Unavailable RISING, JENNIFER Unavailable Unavailable [...] SIMS ION [id number] 1 Jun 20, 2017 [id number] [phone] EAMON OLIVIA ERT PATIENT MEDICARE (WNR) MEDICARE (M) PART A Jun 20, 2014 PART A [id number] EAMON OLIVIA ERT PATIENT MEDICARE (WNR) MEDICARE (M) PART B Jun 20, 2014 PART B [id number] EAMON OLIVIA ERT PATIENT MEDICARE (WNR) MEDICARE (M) PART A Jun 20, 2014 PART A [id number] EAMON OLIVIA ERT PATIENT MEDICARE (WNR) MEDICARE (M) PART B Jun 20, 2014 PART B [id number] [phone] EAMON OLIVIA ERT PATIENT [facility] RX PRESCRIPT ION RX Jun 20, 2023 THPRX [id number] [phone] EAMON OLIVIA ERT PATIENT [facility] RX PRESCRIPT ION RX Jun 20, 2022 THPRX [id number] [phone] EAMON OLIVIA ERT PATIENT [facility] RX PRESCRIPT ION RX Jun 20, 2022 THPRX [id number] DAVON OLIVIA JR PATIENT [facility] Jun 20, 2017 [id number] [phone] EAMON OLIVIA ERT PATIENT [facility] Jun 20, 2017 [id number] DAVON OLIVIA JR PATIENT [facility] T[facility] E Jun 20, 2017 [id number] [phone] DAVON OLIVIA JR PATIENT [facility]P Jun 20, 2017 USP [id number] EAMON OLIVIA ERT PATIENT [facility] Jun 20, 2023 [id number] EAMON OLIVIA ERT PATIENT Selected Encounter This section includes the information on record at [place] for the Encounter. Date/Time Encounter Type Encounter Description Reason Provider Source Nov 28, 2023 11:50 AM SELF CARE MNGMENT TRAINING [facility] Nursing (RN / LP) ICD-10-CM G20.C Parkinsonism, unspecified RISING,JENNIFER L E Encounter Template Text not used by [place] Assessments - Encounter Diagnoses This section includes the primary and secondary diagnoses documented for the Encounter. Date/Time Primary/Secondary Diagnosis Diagnosis Name Provider Source Nov 28, 2023 08:45 PM PRIMARY Parkinsonism, unspecified RISING,HEATHE R L [facility] [place] [facility] Nov 28, 2023 08:45 PM SECONDARY Parkinson's dis w/o dyskinesia, w/o mention of fluctuations RISING,HEATHE R L [facility] [place] [facility] Nov 28, 2023 08:45 PM SECONDARY Unspecified urinary incontinence RISING,HEATHE R L [facility] [place] [facility] Plan of Treatment: Future Appointments (+ 6 months) and Future Tests (+/- 45 days) The Plan of Treatment section includes future care activities for the patient from all [place] treatmentfacilities. This section includes future appointments and future orders which are active, pending or scheduled. Future Appointments This section includes appointments that were scheduled to occur 6 months from the date of the Encounter, up to a maximum of 20 appointments. The data comes from all [place] treatment facilities. Appointment Date/Time Appointment Type Appointme nt Facility Name Dec 26, 2023 11:00 AM AMBULATORY - MEDICINE [facility] [place] [facility] Jan 04, 2024 01:00 PM AMBULATORY - NONE [facility] [place] [facility] Feb 02, 2024 03:00 PM AMBULATORY - REHAB MEDICIN E [facility] [place] [facility] Feb 14, 2024 12:30 PM AMBULATORY - REHAB MEDICIN E [facility] [place] [facility] Mar 15, 2024 10:00 AM AMBULATORY - REHAB MEDICIN E [facility] [place] [facility] Mar 22, 2024 08:00 AM AMBULATORY - MEDICINE [facility] [place] [facility] Mar 22, 2024 01:00 PM AMBULATORY - NONE [facility] [place] [facility] Mar 27, 2024 02:30 PM AMBULATORY - MEDICINE [facility] [place] [facility] Mar 29, 2024 11:00 AM AMBULATORY - REHAB MEDICIN E [facility] [place] [facility] Apr 12, 2024 11:00 AM AMBULATORY - REHAB MEDICIN E [facility] [place] [facility] Apr 26, 2024 09:00 AM AMBULATORY - MEDICINE [facility] [place] [facility] Apr 26, 2024 11:00 AM AMBULATORY - REHAB MEDICIN E [facility] [place] [facility] Vital Signs: All taken on the encounter date This section contains inpatient and outpatient Vital Signs collected on the date of the Encounter. Date/Time Temperature Pulse Blood Pressure Respiratory Rate SP02 Pain Height Weight Body Mass Index Source Nov 28, 2023 12:15 PM 97.2 56 128/80 16 99 0 [facility] [employer] Social History: Smoking Status (Most current) and Tobacco Use (All prior to encounter date) This section includes the most current, and the historical, smoking and tobacco- related health factors from the [place] facility where the Encounter took place. Current Smoking Status This section includes the most current smoking, or tobacco-related health factor, from the [place] facility where the Encounter took place. Date/Time Current Smoking Status Comment Raghu ity Jan 19, 2023 12:24 PM VA-TOBACCO NEVER USED [facility] Tobacco Use History This section includes a history of the smoking, or tobacco-related health factors, that were collected on or before the date of the Encounter. The data comes from the [place] facility where the Encounter took place. Date/Time Smoking Status/Tobacco Use Comment F acility Jan 15, 2021 11:00 AM VA-TOBACCO NEVER USED [facility] Advance Directives: All historical and current Section Date Range: From patient's date of to the date document was created. This section includes ALL of a patient's completed or amended [place] Advance and Rescinded Directives. The entries below indicate that a directive exists for the patient, but an actual copy is not included with this document. The data comes from all [place] facilities. Date Advance Directives Provider Source Jan 20, 2021 ADVANCE DIRECTIVE [facility] Encounter Notes: All associated encounter notes This section contains the clinical notes associated to the Encounter. Date/Time Encounter Note(s) Provider Source Nov 28, 2023 08:46 PM ADDENDUM: LOCAL TITLE: Addendum STANDARD TITLE: ADDENDUM DATE OF NOTE: NOV 28, 2023@20:46:40 ENTRY DATE: NOV 28, 2023@20:46:41 AUTHOR: JENNIFER SEGURA COSIGNER: URGENCY: STATUS: COMPLETED Spouse reports Valrico is sleeping most of the day. She has been keeping in his wheelchair more during the day to keep him awake. Valrico not interested in puzzles, arts in crafts. enjoys watching TV. Val[place] not sleeping at night. Spouse is run down and needs a break. She reports she had hard day with last week and she had her brother stay with a few hours so she could take a breather. Spouse reports she is exhausted and inquiring if she could get respite hours overnight once in a while so she can sleep. /sharron/ ZACHARIAH SWIFTN [facility] SENIOR MECHANICAL DEVELOPMENT ENGINEER Signed: 11/28/2023 20:47 Receipt Acknowledged By: 11/29/2023 08:49 /sharron/ OLEG Sandhu [facility] Loss Prevention Representative --- Original Document --- 11/28/23 MARILIN RN PROGRESS NOTE: Nursing Progress Note Active and Recently Outpatient Medications (including Supplies): Active Outpatient Medications Status 1) APIXABAN 5MG TAB TAKE ONE TABLET BY MOUTH EVERY 12 ACTIVE HOURS FOR ATRIAL FIBRILLATION 2) ARTIFICIAL SALIVA ORAL SPRAY SPRAY 2 SPRAYS BY MOUTH ACTIVE EVERY 2 HOURS NEEDED FOR DRY MOUTH (USE DIRECTED) 3) CARBIDOPA 25/LEVODOPA 100MG SA TAB TAKE 1 TABLET BY ACTIVE MOUTH FOUR TIMES A DAY 4) CARBIDOPA [...] ONCE ACTIVE DAILY FOR STOMACH ACID 9) GLYCOPYRROLATE 2MG TAB TAKE ONE TABLET BY MOUTH ACTIVE DIRECTED BY PROVIDER 2-3 TIMES A DAY NEEDED FOR SECRETIONS 10) HYDROCHLOROTHIAZIDE 25MG TAB TAKE ONE TABLET BY MOUTH ACTIVE ONCE DAILY FOR HIGH BLOOD PRESSURE 11) HYDROPHILIC (EQV EUCERIN) TOP CREAM APPLY A LIBERAL ACTIVE AMOUNT TOPICALLY ONCE DAILY FOR DRY SKIN 12) HYDROXYZINE HCL 10MG TAB TAKE ONE TABLET BY MOUTH AT ACTIVE BEDTIME NEEDED FOR ANXIETY 13) INCONT LINER PREVAIL GUARDS #[id number] USE 1 LINER ACTIVE TOPICALLY TWO TIMES A DAY 14) INCONT LINER,MENS X-HVY SURECARE #[id number] USE 1 LINER HOLD TOPICALLY AT BEDTIME 15) INCONTINENCE WRAP,MALE USE 1 INCONTINENCE WRAP ACTIVE TOPICALLY AT BEDTIME 16) MELATONIN 5MG CAP/TAB TAKE THREE CAPSULE/TABLETS BY HOLD MOUTH AT BEDTIME FOR INSOMNIA 17) MEMANTINE HCL 10MG TAB TAKE ONE TABLET BY MOUTH TWICE ACTIVE DAILY FOR ALZHEIMERS DISEASE 18) MIDODRINE HCL 5MG TAB TAKE ONE TABLET BY MOUTH THREE ACTIVE TIMES DAILY NEEDED FOR LOW BLOOD PRESSURE 19) MULTIVITAMIN/MINERALS CAP/TAB TAKE 1 TABLET BY MOUTH ACTIVE ONCE DAILY FOR VITAMIN SUPPLEMENTATION FOR VITAMIN SUPPLEMENTATION 20) OATMEAL,COLLOIDAL CLEANSING BAR/DRY SKIN DIRECTED ACTIVE TOPICALLY ONCE DAILY FOR SKIN IRRITATION 21) ORAL,SWAB TOOTHETTE USE 1 MOUTH SWAB DIRECTED ONCE ACTIVE DAILY TO USE WITH CHLOREHEXADINE ORAL RINSE 22) POLYETHYLENE GLYCOL 3350 ORAL PWDR TAKE 17 GRAMS(FILL ACTIVE CAP TO 17GM LINE) BY MOUTH ONCE DAILY FOR CONSTIPATION [MIX WITH 4 TO 8OZ. OF BEVERAGE] 23) RASAGILINE MESYLATE 1MG TAB TAKE ONE TABLET BY MOUTH ACTIVE ONCE DAILY FOR PARKINSON'S DISEASE 24) UNDERPAD,BED ULTRASORB [id number] M#3136 USE 2 UNDERPADS ACTIVE TOPICALLY AT BEDTIME Active Non-VA Medications Status 1) Non-VA DOCUSATE NA 100MG CAP 100MG BY MOUTH ONCE ACTIVE DAILY NEEDED 2) Non-VA LORAZEPAM 0.5MG TAB 0.5MG BY MOUTH ONCE DAILY ACTIVE NEEDED 26 Total Medications MEDICATION REVIEW Medication review completed [...] Facial Recognition Length of visit in home: 50 Minutes Problem addressed for this visit: PD, hematuria, med review, caregiver support Specimen(s) collected during this visit: None NURSING SUMMARY: : RNCM made home visit for chronic disease management, neuro assessment, c/v and c/p assessment. [place] sitting at the kitchen table upon arrival, spouse present. well groomed. Dressed appropriately. Poor eye contact. Soft spoken. Relied on spouse to answer questions. Spouse reports Val[place] is sleeping most of the day. She has been keeping [place] in his wheelchair more during the day to keep him awake. not interested in puzzles, arts in crafts. enjoys watching TV. [place] not sleeping at night. Spouse is run down and needs a break. She reports she had hard day with last week and she had her brother stay with a few hours so she could take a breather. Spouse reports she is exhausted and inquiring if she could get respite hours overnight once in a while so she can sleep. Spouse reports new research advisor working out great but not enough hours. [place] unsettled at night, taking off depends, trying to get out of bed. Spouse reports somehow Val[place] positioned himself way down in the bed tangled himself in the sheets and she could barely reposition him and get him up. She is requesting Michael lift. [facility] PT ordered multi-podus boots and they came in. Spouse has questions regarding boots. [facility] PT will f/u [place] incontinent. Reports intermittent hematuria. manages and administers meds in pudding or applesauce, swallowing pills without difficulty. Spouse reports [facility] PCP reviewed risk vs benefit on apixaban and is going to continue taking medication. Spouse is very knowledgeable on medication regimen. Med list left in the home. Blood Pressure: 128/80 (11/28/2023 12:15) Pulse: 56 (11/28/2023 12:15) Respiration: 16 (11/28/2023 12:15) Temperature: 97.2 F [36.2 C] (11/28/2023 12:15) Pain Score: 0 (11/28/2023 12:15) EXAMINATION: Lungs: Ls clear throughout. Resp easy and reg. Edema: PPP, No edema HR: Strong and reg. Denies chest pain, palpations, dizziness. Bowel/Bladder: Incontinent of urine. uses quick change urine management wrap with oversized poise pad. Occasional incontinence of stool. Denies diarrhea/constipation. Skin: Clean, dry and intact. No skin breakdown Home Safety FALLS YES INFECTIONS NO ER/HOSPITALIZATIONS NO Teaching/goals: Refer to nursing summary. [place] goal is to live at home safely with his as long as possible with assist from his and [facility], [facility] Patient verbalizes understanding to above and will call with any concerns or changes in condition. For emergent care call 911. Revisit: 12/26 for chronic disease management, neuro assessment, c/v an dc/p assessment, med review, /sharron/ JENNIFER SEGURA PRINTED CIRCUIT PHOTOGRAPHER [facility] SENIOR MECHANICAL DEVELOPMENT ENGINEER Signed: 11/28/2023 20:45 11/28/2023 ADDENDUM STATUS: COMPLETED unsettled at night, taking off depends, trying to get out of bed. Spouse reports somehow positioned himself way down in the bed tangled himself in the sheets and she could barely reposition him and get him up. She is requesting Michael lift. [facility] PT ordered multi-podus boots and they came in. Spouse has questions regarding boots. [facility] PT will f/u /sharron/ JENNIFER SEGURA PRINTED CIRCUIT PHOTOGRAPHER [facility] SENIOR MECHANICAL DEVELOPMENT ENGINEER Signed: 11/28/2023 20:45 Receipt Acknowledged By: * AWAITING SIGNATURE * RAMIN MENDIETA 11/29/2023 ADDENDUM STATUS: UNSIGNED You may not VIEW this UNSIGNED Addendum. JENNIFER SEGURA [facility] [place] [facility] Nov 28, 2023 08:45 PM ADDENDUM: LOCAL TITLE: Addendum STANDARD TITLE: ADDENDUM DATE OF NOTE: NOV 28, 2023@20:45:25 ENTRY DATE: NOV 28, 2023@20:45:26 AUTHOR: JENNIFER SEGURA COSIGNER: URGENCY: STATUS: COMPLETED [place] unsettled at night, taking off depends, trying to get out of bed. Spouse reports somehow [place] positioned himself way down in the bed tangled himself in the sheets and she could barely reposition him and get him up. She is requesting Michael lift. [facility] PT ordered multi-podus boots and they came in. Spouse has questions regarding boots. [facility] PT will f/u /es/ JENNIFER SEGURA PRINTED CIRCUIT PHOTOGRAPHER [facility] SENIOR MECHANICAL DEVELOPMENT ENGINEER Signed: 11/28/2023 20:45 Receipt Acknowledged By: 11/30/2023 08:12 /es/ RAMIN MENDIETA PT, MS, ATP [facility] Physical Therapist --- Original Document --- 11/28/23 [facility] RN PROGRESS NOTE: Nursing Progress Note Active and Recently Outpatient Medications (including Supplies): Active Outpatient Medications Status 1) APIXABAN 5MG TAB TAKE ONE TABLET BY MOUTH EVERY 12 ACTIVE HOURS FOR ATRIAL FIBRILLATION 2) ARTIFICIAL SALIVA ORAL SPRAY SPRAY 2 SPRAYS BY MOUTH ACTIVE EVERY 2 HOURS NEEDED FOR DRY MOUTH (USE DIRECTED) 3) CARBIDOPA 25/LEVODOPA 100MG SA TAB TAKE 1 TABLET BY ACTIVE MOUTH FOUR TIMES A DAY 4) CARBIDOPA [...] ONCE ACTIVE DAILY FOR STOMACH ACID 9) GLYCOPYRROLATE 2MG TAB TAKE ONE TABLET BY MOUTH ACTIVE DIRECTED BY PROVIDER 2-3 TIMES A DAY NEEDED FOR SECRETIONS 10) HYDROCHLOROTHIAZIDE 25MG TAB TAKE ONE TABLET BY MOUTH ACTIVE ONCE DAILY FOR HIGH BLOOD PRESSURE 11) HYDROPHILIC (EQV EUCERIN) TOP CREAM APPLY A LIBERAL ACTIVE AMOUNT TOPICALLY ONCE DAILY FOR DRY SKIN 12) HYDROXYZINE HCL 10MG TAB TAKE ONE TABLET BY MOUTH AT ACTIVE BEDTIME NEEDED FOR ANXIETY 13) INCONT LINER PREVAIL GUARDS #[id number] USE 1 LINER ACTIVE TOPICALLY TWO TIMES A DAY 14) INCONT LINER,MENS X-HVY SURECARE #[id number] USE 1 LINER HOLD TOPICALLY AT BEDTIME 15) INCONTINENCE WRAP,MALE USE 1 INCONTINENCE WRAP ACTIVE TOPICALLY AT BEDTIME 16) MELATONIN 5MG CAP/TAB TAKE THREE CAPSULE/TABLETS BY HOLD MOUTH AT BEDTIME FOR INSOMNIA 17) MEMANTINE HCL 10MG TAB TAKE ONE TABLET BY MOUTH TWICE ACTIVE DAILY FOR ALZHEIMERS DISEASE 18) MIDODRINE HCL 5MG TAB TAKE ONE TABLET BY MOUTH THREE ACTIVE TIMES DAILY NEEDED FOR LOW BLOOD PRESSURE 19) MULTIVITAMIN/MINERALS CAP/TAB TAKE 1 TABLET BY MOUTH ACTIVE ONCE DAILY FOR VITAMIN SUPPLEMENTATION FOR VITAMIN SUPPLEMENTATION 20) OATMEAL,COLLOIDAL CLEANSING BAR/DRY SKIN DIRECTED ACTIVE TOPICALLY ONCE DAILY FOR SKIN IRRITATION 21) ORAL,SWAB TOOTHETTE USE 1 MOUTH SWAB DIRECTED ONCE ACTIVE DAILY TO USE WITH CHLOREHEXADINE ORAL RINSE 22) POLYETHYLENE GLYCOL 3350 ORAL PWDR TAKE 17 GRAMS(FILL ACTIVE CAP TO 17GM LINE) BY MOUTH ONCE DAILY FOR CONSTIPATION [MIX WITH 4 TO 8OZ. OF BEVERAGE] 23) RASAGILINE MESYLATE 1MG TAB TAKE ONE TABLET BY MOUTH ACTIVE ONCE DAILY FOR PARKINSON'S DISEASE 24) UNDERPAD,BED ULTRASORB [id number] M#9826 USE 2 UNDERPADS ACTIVE TOPICALLY AT BEDTIME Active Non-VA Medications Status 1) Non-VA DOCUSATE NA 100MG CAP 100MG BY MOUTH ONCE ACTIVE DAILY NEEDED 2) Non-VA LORAZEPAM 0.5MG TAB 0.5MG BY MOUTH ONCE DAILY ACTIVE NEEDED 26 Total Medications MEDICATION REVIEW Medication review completed [...] Facial Recognition Length of visit in home: 50 Minutes Problem addressed for this visit: PD, hematuria, med review, caregiver support Specimen(s) collected during this visit: None NURSING SUMMARY: : RNCM made home visit for chronic disease management, neuro assessment, c/v and c/p assessment. sitting at the kitchen table upon arrival, spouse present. well groomed. Dressed appropriately. Poor eye contact. Soft spoken. Relied on spouse to answer questions. Spouse reports [place] is sleeping most of the day. She has been keeping in his wheelchair more during the day to keep him awake. [place] not interested in puzzles, arts in crafts. enjoys watching TV. [place] not sleeping at night. Spouse is run down and needs a break. She reports she had hard day with last week and she had her brother stay with [place] a few hours so she could take a breather. Spouse reports she is exhausted and inquiring if she could get respite hours overnight once in a while so she can sleep. Spouse reports new research advisor working out great but not enough hours. [place] unsettled at night, taking off depends, trying to get out of bed. Spouse reports somehow positioned himself way down in the bed tangled himself in the sheets and she could barely reposition him and get him up. She is requesting Michael lift. [facility] PT ordered multi-podus boots and they came in. Spouse has questions regarding boots. [facility] PT will f/u [place] incontinent. Reports intermittent hematuria. manages and administers meds in pudding or applesauce, swallowing pills without difficulty. Spouse reports [facility] PCP reviewed risk vs benefit on apixaban and is going to continue taking medication. Spouse is very knowledgeable on medication regimen. Med list left in the home. Blood Pressure: 128/80 (11/28/2023 12:15) Pulse: 56 (11/28/2023 12:15) Respiration: 16 (11/28/2023 12:15) Temperature: 97.2 F [36.2 C] (11/28/2023 12:15) Pain Score: 0 (11/28/2023 12:15) EXAMINATION: Lungs: Ls clear throughout. Resp easy [...] possible with assist from his and [facility], [employer] Patient verbalizes understanding to above and will call with any concerns or changes in condition. For emergent care call 911. Revisit: 12/26 for chronic disease management, neuro assessment, c/v an dc/p assessment, med review, /ZACHARIAH Rodriguez [facility] SENIOR MECHANICAL DEVELOPMENT ENGINEER Signed: 11/28/2023 20:45 11/28/2023 ADDENDUM STATUS: COMPLETED Spouse reports [place] is sleeping most of the day. She has been keeping in his wheelchair more during the day to keep him awake. not interested in puzzles, arts in crafts. enjoys watching TV. [place] not sleeping at night. Spouse is run down and needs a break. She reports she had hard day with Valrico last week and she had her brother stay with [place] a few hours so she could take a breather. Spouse reports she is exhausted and inquiring if she could get respite hours overnight once in a while so she can sleep. /es/ JENNIFER L RISING, PRINTED CIRCUIT PHOTOGRAPHER [facility] SENIOR MECHANICAL DEVELOPMENT ENGINEER Signed: 11/28/2023 20:47 Receipt Acknowledged By: 11/29/2023 08:49 /OLEG Harrell Loss Prevention Representative 11/29/2023 ADDENDUM STATUS: COMPLETED [facility] SW has discussed private pay overnight care as this is not provided by [facility]. [facility] SW discussed Inpaitent Repsite as well. [facility] SW will folow up with spouse and discuss resources available. /OLEG Harrell [facility] Loss Prevention Representative Signed: 11/29/2023 08:51 JENNIFER SEGURA [facility] Nov 28, 2023 09:30 AM [facility] NURSING NOTE: LOCAL TITLE: [facility] RN PROGRESS NOTE STANDARD TITLE: HB NURSING NOTE DATE OF NOTE: NOV 28, 2023@09:30 ENTRY DATE: NOV 28, 2023@20:12:07 AUTHOR: JENNIFER SEGURA EXP COSIGNER: URGENCY: STATUS: COMPLETED [facility] RN PROGRESS NOTE Has ADDENDA Nursing Progress Note Active and Recently Outpatient Medications (including Supplies): Active Outpatient Medications Status 1) APIXABAN 5MG TAB TAKE ONE TABLET BY MOUTH EVERY 12 ACTIVE HOURS FOR ATRIAL FIBRILLATION 2) ARTIFICIAL SALIVA ORAL SPRAY SPRAY 2 SPRAYS BY MOUTH ACTIVE EVERY 2 HOURS NEEDED FOR DRY MOUTH (USE DIRECTED) 3) CARBIDOPA 25/LEVODOPA 100MG SA TAB TAKE 1 TABLET BY ACTIVE MOUTH FOUR TIMES A DAY 4) CARBIDOPA [...] ONCE ACTIVE DAILY FOR STOMACH ACID 9) GLYCOPYRROLATE 2MG TAB TAKE ONE TABLET BY MOUTH ACTIVE DIRECTED BY PROVIDER 2-3 TIMES A DAY NEEDED FOR SECRETIONS 10) HYDROCHLOROTHIAZIDE 25MG TAB TAKE ONE TABLET BY MOUTH ACTIVE ONCE DAILY FOR HIGH BLOOD PRESSURE 11) HYDROPHILIC (EQV EUCERIN) TOP CREAM APPLY A LIBERAL ACTIVE AMOUNT TOPICALLY ONCE DAILY FOR DRY SKIN 12) HYDROXYZINE HCL 10MG TAB TAKE ONE TABLET BY MOUTH AT ACTIVE BEDTIME NEEDED FOR ANXIETY 13) INCONT LINER PREVAIL GUARDS #[id number] USE 1 LINER ACTIVE TOPICALLY TWO TIMES A DAY 14) INCONT LINER,MENS X-HVY SURECARE #[id number] USE 1 LINER HOLD TOPICALLY AT BEDTIME 15) INCONTINENCE WRAP,MALE USE 1 INCONTINENCE WRAP ACTIVE TOPICALLY AT BEDTIME 16) MELATONIN 5MG CAP/TAB TAKE THREE CAPSULE/TABLETS BY HOLD MOUTH AT BEDTIME FOR INSOMNIA 17) MEMANTINE HCL 10MG TAB TAKE ONE TABLET BY MOUTH TWICE ACTIVE DAILY FOR ALZHEIMERS DISEASE 18) MIDODRINE HCL 5MG TAB TAKE ONE TABLET BY MOUTH THREE ACTIVE TIMES DAILY NEEDED FOR LOW BLOOD PRESSURE 19) MULTIVITAMIN/MINERALS CAP/TAB TAKE 1 TABLET BY MOUTH ACTIVE ONCE DAILY FOR VITAMIN SUPPLEMENTATION FOR VITAMIN SUPPLEMENTATION 20) OATMEAL,COLLOIDAL CLEANSING BAR/DRY SKIN DIRECTED ACTIVE TOPICALLY ONCE DAILY FOR SKIN IRRITATION 21) ORAL,SWAB TOOTHETTE USE 1 MOUTH SWAB DIRECTED ONCE ACTIVE DAILY TO USE WITH CHLOREHEXADINE ORAL RINSE 22) POLYETHYLENE GLYCOL 3350 ORAL PWDR TAKE 17 GRAMS(FILL ACTIVE CAP TO 17GM LINE) BY MOUTH ONCE DAILY FOR CONSTIPATION [MIX WITH 4 TO 8OZ. OF BEVERAGE] 23) RASAGILINE MESYLATE 1MG TAB TAKE ONE TABLET BY MOUTH ACTIVE ONCE DAILY FOR PARKINSON'S DISEASE 24) UNDERPAD,BED ULTRASORB [id number] M#3136 USE 2 UNDERPADS ACTIVE TOPICALLY AT BEDTIME Active Non-VA Medications Status 1) Non-VA DOCUSATE NA 100MG CAP 100MG BY MOUTH ONCE ACTIVE DAILY NEEDED 2) Non-VA LORAZEPAM 0.5MG TAB 0.5MG BY MOUTH ONCE DAILY ACTIVE NEEDED 26 Total Medications MEDICATION REVIEW Medication review completed [...] in patient's home at time of visit. [place] identified by: Full Name, Facial Recognition Length of visit in home: 50 Minutes Problem addressed for this visit: PD, hematuria, med review, caregiver support Specimen(s) collected during this visit: None NURSING SUMMARY: : RNCM made home visit for chronic disease management, neuro assessment, c/v and c/p assessment. [place] sitting at the kitchen table upon arrival, spouse present. [place] well groomed. Dressed appropriately. Poor eye contact. Soft spoken. Relied on spouse to answer questions. Spouse reports [place] is sleeping most of the day. She has been keeping in his wheelchair more during the day to keep him awake. [place] not interested in puzzles, arts in crafts. Valrico enjoys watching TV. not sleeping at night. Spouse is run down and needs a break. She reports she had hard day with last week and she had her brother stay with Valrico a few hours so she could take a breather. Spouse reports she is exhausted and inquiring if she could get respite hours overnight once in a while so she can sleep. Spouse reports new research advisor working out great but not enough hours. Valrico unsettled at night, taking off depends, trying to get out of bed. Spouse reports somehow Valrico positioned himself way down in the bed tangled himself in the sheets and she could barely reposition him and get him up. She is requesting Michael lift. [facility] PT ordered multi-podus boots and they came in. Spouse has questions regarding boots. [facility] PT will f/u incontinent. Reports intermittent hematuria. manages and administers meds in pudding or applesauce, swallowing pills without difficulty. Spouse reports [facility] PCP reviewed risk vs benefit on apixaban and is going to continue taking medication. Spouse is very knowledgeable on medication regimen. Med list left in the home. Blood Pressure: 128/80 (11/28/2023 12:15) Pulse: 56 (11/28/2023 12:15) Respiration: 16 (11/28/2023 12:15) Temperature: 97.2 F [36.2 C] (11/28/2023 12:15) Pain Score: 0 (11/28/2023 12:15) EXAMINATION: Lungs: Ls clear throughout. Resp easy and reg. Edema: PPP, No edema HR: Strong and reg. Denies chest pain, palpations, dizziness. Bowel/Bladder: Incontinent of urine. uses quick change urine management wrap with oversized poise pad. Occasional incontinence of stool. Denies diarrhea/constipation. Skin: Clean, dry and intact. No skin breakdown Home Safety FALLS YES INFECTIONS NO ER/HOSPITALIZATIONS NO Teaching/goals: Refer to nursing summary. [place]rico goal is to live at home safely with his as long as possible with assist from his and [facility], [facility] Patient verbalizes understanding to above and will call with any concerns or changes in condition. For emergent care call 911. Revisit: 12/26 for chronic disease management, neuro assessment, c/v an dc/p assessment, med review, /sharron/ ZACHARIAH SWIFTN [facility] SENIOR MECHANICAL DEVELOPMENT ENGINEER Signed: 11/28/2023 20:45 11/28/2023 ADDENDUM STATUS: COMPLETED unsettled at night, taking off depends, trying to get out of bed. Spouse reports somehow Valrico positioned himself way down in the bed tangled himself in the sheets and she could barely reposition him and get him up. She is requesting Michael lift. [facility] PT ordered multi-podus boots and they came in. Spouse has questions regarding boots. [facility] PT will f/u /sharron/ ZACHARIAH SWIFT [facility] SENIOR MECHANICAL DEVELOPMENT ENGINEER Signed: 11/28/2023 20:45 Receipt Acknowledged By: * AWAITING SIGNATURE * RAMIN MENDIETA 11/28/2023 ADDENDUM STATUS: COMPLETED Spouse reports Valrico is sleeping most of the day. She has been keeping Valrico in his wheelchair more during the day to keep him awake. not interested in puzzles, arts in crafts. Valrico enjoys watching TV. Valrico not sleeping at night. Spouse is run down and needs a break. She reports she had hard day with Valrico last week and she had her brother stay with Valrico a few hours so she could take a breather. Spouse reports she is exhausted and inquiring if she could get respite hours overnight once in a while so she can sleep. /sharron/ JENNIFER SEGURA RN BSN [facility] SENIOR MECHANICAL DEVELOPMENT ENGINEER Signed: 11/28/2023 20:47 Receipt Acknowledged By: 11/29/2023 08:49 /sharron/ OLEG Sandhu DARSHAN Loss Prevention Representative 11/29/2023 ADDENDUM STATUS: COMPLETED [facility] SW has discussed private pay overnight care as this is not provided by [facility]. [facility] SW discussed Inpaitent Repsite as well. [facility] SW will folow up with spouse and discuss resources available. /sharron/ OLEG Sandhu [facility] Loss Prevention Representative Signed: 11/29/2023 08:51 JENNIFER SEGURA [facility]
--- OUTSIDE RECORDS SUMMARY | 2024-05-30 08:37 | XMS_ITS | Encounter Summary ---
Author Name [facility] [place] [facility] [place] Address [address] [place] [id number] Care Team Providers Care Resource Engineer Name Role Phone HUSEYIN LUIS FERNANDO [...] PRESCRIPT ION [id number] 1 Jun 20, 2017 [id number] [phone] EAMON OLIVIA ERT PATIENT MEDICARE (WNR) MEDICARE (M) PART A Jun 20, 2014 PART A [id number] EAMON OLIVIA ERT PATIENT MEDICARE (WNR) MEDICARE (M) PART B Jun 20, 2014 PART B [id number] EAMON OLIVIA ERT PATIENT MEDICARE (WNR) MEDICARE (M) PART A Jun 20, 2014 PART A [id number] EAMON OLIVIA ERT PATIENT MEDICARE (WNR) MEDICARE (M) PART B Jun 20, 2014 PART B [id number] EAMON OLIVIA ERT PATIENT OPTUM RX PRESCRIPT ION RX Jun 20, 2023 THPRX [id number] EAMON OLIVIA ERT PATIENT OPTUM RX PRESCRIPT ION RX Jun 20, 2022 THPRX [id number] EAMON OLIVIA ERT PATIENT OPTUM RX PRESCRIPT ION RX Jun 20, 2022 THPRX [id number] DAVON OLIVIA JR PATIENT [facility] Jun 20, 2017 [id number] EAMON OLIVIA ERT PATIENT [facility] PLAN [place] E Jun 20, 2017 [id number] [phone] DAVON OLIVIA JR PATIENT [facility] Jun 20, 2017 [id number] DAVON OLIVIA JR PATIENT [facility] PLAN USP Jun 20, 2017 [id number] EAMON OLIVIA ERT PATIENT [facility] Jun 20, 2023 [id number] EAMON OLIVIA ERT PATIENT Selected Encounter This section includes the information on record at [place] for the Encounter. Date/Time Encounter Type Encounter Description Reason Provider Source Jul 19, 2023 01:00 PM PSYCH DIAG EVAL W/MED SRVCS PSYCHOGERIATRIC - INDIVIDUAL ICD-10-CM F39 Unspecified mood [affective] disorder ANDREA BARRERA [facility] Encounter Template Text not used by [place] Assessments - Encounter Diagnoses This section includes the primary and secondary diagnoses documented for the Encounter. Date/Time Primary/Secondary Diagnosis Diagnosis Name Provider Source Jul 19, 2023 02:34 PM PRIMARY Unspecified mood [affective] disorder ANDREA BARRERA [facility] Plan of Treatment: Future Appointments (+ 6 months) and Future Tests (+/- 45 days) The Plan of Treatment section includes future care activities for the patient from all [place] treatmentfacilities. This section includes future appointments and future orders which are active, pending or scheduled. Future Appointments This section includes appointments that were scheduled to occur 6 months from the date of the Encounter, up to a maximum of 20 appointments. The data comes from all [place] treatment facilities. Appointment Date/Time Appointment Type Appointme nt Facility Name Oct 17, 2023 01:00 PM [facility]UL[facility] Oct 17, 2023 01:15 PM AM[facility]ULATORY - MEDICINE [place] [facility] [facility] Dec 26, 2023 11:00 AM AMBULATORY - MEDICINE [place] [facility] [place] [facility] Jan 04, 2024 01:00 PM [facility] Advance Directives: All historical and current Section Date Range: From patient's date of to the date document was created. This section includes ALL of a patient's completed or amended [place] Advance and Rescinded Directives. The entries below indicate that a directive exists for the patient, but an actual copy is not included with this document. The data comes from all [place] facilities. Date Advance Directives Provider Source Jan 20, 2021 ADVANCE DIRECTIVE [facility] Encounter Notes: All associated encounter notes This section contains the clinical notes associated to the Encounter. Date/Time Encounter Note(s) Provider Source Jul 19, 2023 08:30 AM MENTAL HEALTH CONS ULT: LOCAL TITLE: TELEMENTAL HEALTH CONSULT NOTE STANDARD TITLE: MENTAL HEALTH CONSULT DATE OF NOTE: JUL 19, 2023@08:30 ENTRY DATE: JUL 19, 2023@08:30:08 AUTHOR: ANDREA BARRERA COSIGNER: URGENCY: STATUS: COMPLETED Clinical Services provided by Dr. Andrea Barrera MD. Clinical Services are being provided via Telemental Health from the [facility] to the 's remote site located at the [facility]. Clinical Service Provided: Psychiatric Evaluation Service Delivery Method: VVC into the home Length of Service: 90 minutes Primary Diagnosis: Mood nos For a complete progress note including a mental status examination and risk assessment, please see the [facility] medical record (accessible through [facility]). /sharron/ Andrea Barrera MD Geriatric Psychiatrist Signed: 07/19/2023 14:34 ANDREA BARRERA [facility]
--- OUTSIDE RECORDS SUMMARY | 2024-05-30 08:38 | XMS_ITS | Encounter Summary ---
Author Name [facility] [place] Address [address] [place] [id number] Care Team Providers Care Parts Product Analyst Name Role Phone HUSEYIN LUIS FERNANDO Primary [...] PRESCRIPT ION [id number] 1 Jun 20, 2017 [id number] [phone] EAMON OLIVIA ERT PATIENT MEDICARE (WNR) MEDICARE (M) PART A Jun 20, 2014 PART A [id number] [phone] EAMON OLIVIA ERT PATIENT MEDICARE (WNR) MEDICARE (M) PART B Jun 20, 2014 PART B [id number] [phone] EAMON OLIVIA ERT PATIENT MEDICARE (WNR) MEDICARE (M) PART A Jun 20, 2014 PART A [id number] [phone] EAMON OLIVIA ERT PATIENT MEDICARE (WNR) MEDICARE (M) PART B Jun 20, 2014 PART B [id number] EAMON OLIVIA ERT PATIENT OPTUM RX PRESCRIPT ION RX Jun 20, 2023 THPRX [id number] EAMON OLIVIA ERT PATIENT OPTUM RX PRESCRIPT ION RX Jun 20, 2022 THPRX [id number] [phone] EAMON OLIVIA ERT PATIENT OPTUM RX PRESCRIPT ION RX Jun 20, 2022 THPRX [id number] [phone] DAVON OLIVIA JR PATIENT [facility] Jun 20, 2017 [id number] EAMON OLIVIA ERT PATIENT [facility] Jun 20, 2017 [id number] DAVON OLIVIA JR PATIENT [facility] Jun 20, 2017 [id number] [phone] DAVON OLIVIA JR PATIENT [facility] PLAN USP Jun 20, 2017 USP [id number] EAMON OLIVIA ERT PATIENT [facility] Jun 20, 2023 [id number] EAMON OLIVIA ERT PATIENT Selected Encounter This section includes the information on record at [place] for the Encounter. Date/Time Encounter Type Encounter Description Reason Provider Source Jun 01, 2023 11:05 AM CASE MANAGEMENT [facility] - SWEATER DESIGNER ICD-10-CM Z65.9 Problem related to unspecified psychosocial circumstances KAMILAH MALCOLM [facility] Encounter Template Text not used by [place] Assessments - Encounter Diagnoses This section includes the primary and secondary diagnoses documented for the Encounter. Date/Time Primary/Secondary Diagnosis Diagnosis Name Provider Source Jun 02, 2023 12:13 PM PRIMARY Problem related to unspecified psychosocial circumstances KAMILAH MALCOLM [facility] [place] [facility] Plan of Treatment: Future Appointments (+ 6 months) and Future Tests (+/- 45 days) The Plan of Treatment section includes future care activities for the patient from all [place] treatmentfacilities. This section includes future appointments and future orders which are active, pending or scheduled. Future Appointments This section includes appointments that were scheduled to occur 6 months from the date of the Encounter, up to a maximum of 20 appointments. The data comes from all [place] treatment facilities. Appointment Date/Time Appointment Type Appointme nt Facility Name Jul 19, 2023 01:00 PM AMBULATORY - PSYCHIATRY [place] [facility] [place] [facility] Jul 19, 2023 01:00 PM AMBULATORY - [place]AT[place] [facility] Oct 17, 2023 01:00 PM AMBULATORY - MEDICINE [place] [facility] [facility] Oct 17, 2023 01:15 PM AMBULATORY - MEDICINE [place] [facility] Lab Results: +/- 30 days of the encounter This section includes the Chemistry and Hematology Lab Results on record with [place] for the patient. Radiology Reports and Pathology Reports are provided separately, in subsequent sections. Lab Results This section contains the Chemistry/Hematology Results that were resulted 30 days before or 30 daysafter the date of the Encounter. Date/Time Source Result Type Result - Unit Interpretation Reference Range Comment May 26, 2023 12:00 PM [facility] FOLATE Specimen Type: SERUM No comment entered. Ordering Provider: CÉSAR JONES Report Released Date/Time: May 20, 2023 01:26 PM Reporting Lab: [facility] [place] [facility] [address] [facility] [address] Performing Lab: [facility] [address] [facility] [address] FOLATE 13.04 ng/mL >5.2 May 26, 2023 12:00 PM [facility] VITAMIN D (25-OH) Specimen Type: SERUM No comment entered. Ordering Provider: CÉSAR JONES Report Released Date/Time: May 20, 2023 01:26 PM Reporting Lab: [facility] [address] [facility] [address] Performing Lab: [facility] [address] [facility] [address] VITAMIN D (25-OH) 32 ng/mL 20-50 May 26, 2023 12:00 PM [facility] VITAMIN B12 Specimen Type: SERUM No comment entered. Ordering Provider: CÉSAR JONES Report Released Date/Time: May 20, 2023 01:26 PM Reporting Lab: [facility] [address] [address] Performing Lab: [address] [address] VITAMIN B12 610 pg/mL 200-900 May 26, 2023 12:00 PM [facility] CBC Specimen Type: BLOOD No comment entered. Ordering Provider: CÉSAR JONES Report Released Date/Time: May 20, 2023 01:26 PM Reporting Lab: [address] [address] Performing Lab: [address] [address] WBC 7.69 10*3/uL 4.50-11.00 RBC 4.72 10*6/uL 4.23-5.66 HGB 14.0 g/dL 12.8-17 HCT 43.4 39.2-50.4 MCV 91.9 fL 82-99 MCHC 32.3 g/dL 30.8-35.1 PLT 296 10*3/uL 140-360 RDW-CV 12.4 12.0-16.0 MCH 29.7 pg 26.2-32.6 May 26, 2023 12:00 PM [facility] LIPID PANEL FASTING Specimen Type: SERUM No comment entered. Ordering Provider: CÉSAR JONES Report Released Date/Time: May 20, 2023 01:26 PM Reporting Lab: [facility] [address] [address] Performing Lab: [address] [address] CHOLESTEROL 204 mg/dL H TRIGLYCERIDE 67 mg/dL 0-150 LDL calculated 135 mg/dL H 0-129 CHOL/HDL 3.6 HDL CHOLESTEROL 56 mg/dL 40-60 May 26, 2023 12:00 PM [facility] BASIC METABOLIC PANEL (fasting) Specimen Type: SERUM No comment entered. Ordering Provider: CÉSAR JONES Report Released Date/Time: May 20, 2023 01:26 PM Reporting Lab: [facility] [address] [facility] [address] Performing Lab: [facility] [address] [facility] [address] UREA NITROGEN 17 mg/dL 7-25 GLUCOSE 89 mg/dL 65-100 SODIUM 139 mmol/L 135-145 POTASSIUM 3.5 mmol/L 3.5-5.0 CHLORIDE 99 mmol/L L 100-110 CO2 31 meq/L H 20-30 CREATININE, Serum 1.08 mg/dL 0.50-1.40 eGFR(CKD-EPI 2020) 72 mL/min >60 May 26, 2023 12:00 PM [facility] CALCIUM Specimen Type: SERUM No comment entered. Ordering Provider: CÉSAR JONES Report Released Date/Time: May 20, 2023 01:26 PM Reporting Lab: [facility] [address] Performing Lab: [facility] [address] CALCIUM 9.1 mg/dL 8.5-10.2 May 26, 2023 12:00 PM [facility] TSH Specimen Type: SERUM No comment entered. Ordering Provider: CÉSAR JONES Report Released Date/Time: May 20, 2023 01:26 PM Reporting Lab: [facility] [address] Performing Lab: [facility] [address] TSH 1.64 u[IU]/mL 0.35-5.00 May 26, 2023 12:00 PM [facility] HEMOGLOBIN A1C PANEL Specimen Type: BLOOD Comment: Values obtained from A1C measurements can vary. For atypical A1C assays, a reported value of 7.0 could actually be between 6.72 and 7.28 if measured by a reference method. A reported value of 9.0 could actually be between 8.73 and 9.27. Ref: http://www.[facility] p.org/CAPdata. asp Ordering Provider: CÉSAR JONES Report Released Date/Time: May 20, 2023 01:26 PM Reporting Lab: [facility]ITALREN[facility]ERYN [facility] [address] [facility] [address] Performing Lab: [facility]ITALRENCOM[facility] MONTGOMERYN [facility] CENTERUSETS [address] [address] HEMOGLOBIN A1C 5.1 4.0-5.6 May 26, 2023 12:00 PM [facility] IRON & TIBC PANEL Specimen Type: SERUM No comment entered. Ordering Provider: CÉSAR JONES Report Released Date/Time: May 20, 2023 01:26 PM Reporting Lab: [facility] [address] [facility] [address] Performing Lab: [facility]ENTER[facility] [address] TIBC 301 ug/dL 204-475 IRON 106 ug/dL 40-160 Transferrin Saturation 35.2 20.0-50.0 May 26, 2023 12:00 PM [facility] MAGNESIUM Specimen Type: SERUM No comment entered. Ordering Provider: CÉSAR JONES Report Released Date/Time: May 20, 2023 01:26 PM Reporting Lab: [facility] [address] [facility] [address] Performing Lab: [facility] [address] MAGNESIUM 2.0 mg/dL 1.6-2.6 May 26, 2023 12:00 PM [facility] FERRITIN Specimen Type: SERUM No comment entered. Ordering Provider: CÉSAR JONES Report Released Date/Time: May 20, 2023 01:26 PM Reporting Lab: [facility] [address] Performing Lab: [facility] CENTERUSETS [address] [address] FERRITIN 95 ng/mL 20-300 May 26, 2023 12:00 PM [facility] CREATININE (eGFR 2020) Specimen Type: SERUM No comment entered. Ordering Provider: CÉSAR JONES Report Released Date/Time: May 20, 2023 01:26 PM Reporting Lab: [address] [address] Performing Lab: [address] [address] CREATININE, Serum 1.08 mg/dL 0.50-1.40 eGFR(CKD-EPI 2020) 72 mL/min >60 May 26, 2023 12:00 PM [facility] LIVER FUNCTION Specimen Type: SERUM No comment entered. Ordering Provider: CÉSAR JONES Report Released Date/Time: May 20, 2023 01:26 PM Reporting Lab: [address] [address] Performing Lab: [address] [address] PROTEIN,TOTAL 6.6 g/dL 6.0-8.3 ALBUMIN 3.4 g/dL L 3.5-5.0 ALKALINE PHOSPHATASE 67 U/L 40-150 AST 20 U/L 5-34 ALT 8 U/L BILIRUBIN, TOTAL 0.5 mg/dL 0.2-1.2 May 26, 2023 12:00 PM [facility] PT & INR (COUMADIN) Specimen Type: PLASMA No comment entered. Ordering Provider: CÉSAR JONES Report Released Date/Time: May 20, 2023 01:26 PM Reporting Lab: [address] [address] Performing Lab: [address] [address] INR 1.4 PROTIME 15.1 s H 10.0-13.1 Social History: Smoking Status (Most current) and Tobacco Use (All prior to encounter date) This section includes the most current, and the historical, smoking and tobacco- related health factors from the [facility] where the Encounter took place. Current Smoking Status This section includes the most current smoking, or tobacco-related health factor, from the [place] facility where the Encounter took place. Date/Time Current Smoking Status Comment Raghu melchor Jan 19, 2023 12:24 PM VA-TOBACCO NEVER USED [facility] Tobacco Use History This section includes a history of the smoking, or tobacco-related health factors, that were collected on or before the date of the Encounter. The data comes from the [place] facility where the Encounter took place. Date/Time Smoking Status/Tobacco Use Comment F acility Jan 15, 2021 11:00 AM VA-TOBACCO NEVER USED [facility] Advance Directives: All historical and current Section Date Range: From patient's date of to the date document was created. This section includes ALL of a patient's completed or amended [place] Advance and Rescinded Directives. The entries below indicate that a directive exists for the patient, but an actual copy is not included with this document. The data comes from all [place] facilities. Date Advance Directives Provider Source Jan 20, 2021 ADVANCE DIRECTIVE BENTON ARAUZ [facility] Encounter Notes: All associated encounter notes This section contains the clinical notes associated to the Encounter. Date/Time Encounter Note(s) Provider Source Jun 01, 2023 11:05 AM [facility] E & M NOTE: LOCAL TITLE: [facility] SOCIAL WORK NOTE STANDARD TITLE: [facility] E & M NOTE DATE OF NOTE: JUN 01, 2023@11:05 ENTRY DATE: JUN 02, 2023@12:13:34 AUTHOR: KAMILAH MALCOLM EXP COSIGNER: URGENCY: STATUS: COMPLETED Coronavirus Disease 2019 (COVID-19) Screen The patient was asked if in the last 14 days they have had new onset of any COVID-19 symptoms. They report the following: No symptoms Within the past 14 days, the patient reports no exposure to someone with a febrile/respiratory illness or someone with a known or suspected case of COVID-19 (within 6 feet for > 15 minutes). Result: Screen is negative. Length of visit: 15 Minutes The was identified by name and . The is dealing with Parkinson's Disease, Insomnia, incontinence, and Memory Loss. The was seen today for a supportive follow up visit. The and spouse was present during today's visit. The 's caregiver stated that things have been going well as they transition to [facility]. They have received PT equipment such as wraps, grab bars, continue to receive MANAGER MEDICAID services, wipes. Caregiver confirmed that she has connected with Caregiver support program and is excited about the additional support. Caregiver inquired is RSV immunization is recommended by [facility]. If this is recommended then she would like the to receive this. [facility] SW discussed this at IDT(06/02/23) with [facility] RN who will follow up and caregiver in regards to this. The and caregiver reported no new SW needs during today's visit. /sharron/ OLEG Sandhu [facility] Section Hand Helper Signed: 06/02/2023 12:20 KAMILAH MALCOLM [facility]
--- OUTSIDE RECORDS SUMMARY | 2024-05-30 08:38 | XMS_ITS | Encounter Summary ---
Author Name [facility] [place] Organization [place] Address [address] [place] [address] Care Team Providers Care Bead Machine Operator Name Role Phone LUIS FERNANDO FONTANEZ Primary Care Provider Unavailabl e AMANDO OHARA Unavailable Unavailable RARAMIN KEYES Unavailable Unavailable SUNIL, KALYAN Unavailable Unavailable KAMILAH MALCOLM Unavailable Unavailable RIGO FENTON Unavailable Unavailable IMELDA, JENNIFER Unavailable Unavailable SAMUEL, AMARIS Unavailable Unavailable [...] Steen's Name Patient's Relationship to Policy Steen CAREMARK PRESCRIPT ION [id number] 1 Jun 20, 2017 [id number] EAMON OLIVIA ERT PATIENT MEDICARE (WNR) MEDICARE (M) PART A Jun 20, 2014 PART A [id number] EAMON OLIVIA ERT PATIENT MEDICARE (WNR) MEDICARE (M) PART B Jun 20, 2014 PART B [id number] EAMON OLIVIA ERT PATIENT MEDICARE (WNR) MEDICARE (M) PART A Jun 20, 2014 PART A [id number] EAMON OLIVIA ERT PATIENT MEDICARE (WNR) MEDICARE (M) PART B Jun 20, 2014 PART B [id number] EAMON OLIVIA ERT PATIENT OPTUM RX PRESCRIPT ION RX Jun 20, 2023 THPRX [id number] EAMON OLIVIA ERT PATIENT OPTUM RX PRESCRIPT ION RX Jun 20, 2022 THPRX [id number] EAMON OLIVIA ERT PATIENT OPTUM RX PRESCRIPT ION RX Jun 20, 2022 THPRX [id number] [phone] DAVON OLIVIA JR PATIENT [facility] Jun 20, 2017 [id number] [phone] EAMON OLIVIA ERT PATIENT [facility] E Jun 20, 2017 [id number] DAVON OLIVIA JR PATIENT [facility] Jun 20, 2017 [id number] DAVON OLIVIA JR PATIENT [facility] USP Jun 20, 2017 USP [id number] EAMON OLIVIA ERT PATIENT [facility] Jun 20, 2023 [id number] [phone] EAMON OLIVIA ERT PATIENT Selected Encounter This section includes the information on record at [place] for the Encounter. Date/Time Encounter Type Encounter Description Reason Provider Source November 09, 2023 08:58 AM Outpatient Encounter AMB ECG MONITORING ICD-10-CM Z04.89 Encounter for examination and observation for oth reasons FELA MAGANA Chalino Encounter Template Text not used by [place] Assessments - Encounter Diagnoses This section includes the primary and secondary diagnoses documented for the Encounter. Date/Time Primary/Secondary Diagnosis Diagnosis Name Provider Source November 09, 2023 08:59 AM PRIMARY Encounter for examination and observation for oth reasons PAPI MAGANA [facility] Plan of Treatment: Future Appointments (+ 6 [...] - MEDICINE [facility] [place] [facility] Jan 04, 2024 01:00 PM AMBULATORY - NONE [facility] [place] [facility] Feb 02, 2024 03:00 PM AMBULATORY - REHAB MEDICIN E [facility] [place] [facility] Feb 14, 2024 12:30 PM AMBULATORY - REHAB MEDICIN E [facility] [place] [facility] Mar 15, 2024 10:00 AM AMBULATORY - REHAB MEDICIN E [facility] [place] [facility] Mar 22, 2024 08:00 AM AMBULATORY - MEDICINE [facility] [place] [facility] Mar 22, 2024 01:00 PM AMBULATORY - NONE [facility] [place] [facility] Mar 27, 2024 02:30 PM AMBULATORY - MEDICINE [facility] [place] [facility] Mar 29, 2024 11:00 AM AMBULATORY - REHAB MEDICIN E [facility] [place] [facility] Apr 12, 2024 11:00 AM AMBULATORY - REHAB MEDICIN E [facility] [place] [facility] Apr 26, 2024 09:00 AM AMBULATORY - MEDICINE [facility] [place] [facility] Apr 26, 2024 11:00 AM AMBULATORY - REHAB MEDICIN E [facility] [place] [facility] Advance Directives: All historical and current Section Date Range: From patient's date of to the date document was created. This section includes ALL of a patient's completed or amended VA Advance and Rescinded Directives. The entries below indicate that a directive exists for the patient, but an actual copy is not included with this document. The data comes from all [facility]. Date Advance Directives Provider Source Jan 20, 2021 ADVANCE DIRECTIVE [facility] Encounter Notes: All associated encounter notes This section contains the clinical notes associated to the Encounter. Date/Time Encounter Note(s) Provider Source November 09, 2023 08:58 AM CARDIOLOGY CONSULT : LOCAL TITLE: CARDIOLOGY eCONSULT/MEDICAL/CONSULT STANDARD TITLE: CARDIOLOGY CONSULT DATE OF NOTE: NOVEMBER 09, 2023@08:58 ENTRY DATE: NOVEMBER 09, 2023@08:58:33 AUTHOR: CATHIE MAGANA EXP COSIGNER: URGENCY: STATUS: COMPLETED Patient was not seen, the chart was reviewed. Patient had a min HR of 50 bpm, max HR of 146 bpm, and avg HR of 69 bpm. Predominant underlying rhythm was Sinus Rhythm. 16 Supraventricular Tachycardia runs occurred, the run with the fastest interval lasting 13 beats with a max rate of 146 bpm, the longest lasting 12.3 secs with an avg rate of 118 bpm. Isolated SVEs were occasional (2.1%, [id number]), SVE Couplets were rare (<1.0%, 244), and [...] symptoms at the time of the SVT. Time spent 15' /sharron/ CATHIE MAGANA MD Filing And Polishing Supervisor Attending Signed: 11/09/2023 09:00 CATHIE MAGANA [facility]
--- OUTSIDE RECORDS SUMMARY | 2024-05-30 08:38 | XMS_ITS | Encounter Summary ---
Author Name [facility] [place] Organization [facility] [place] Address [address] [place] [address] Care Team Providers Care Store Standards Associate Name Role Phone LUIS FERNANDO FONTANEZ Primary [...] SIMS ION [id number] 1 Jun 20, 2017 [id number] [phone] EAMON OLIVIA ERT PATIENT MEDICARE (WNR) MEDICARE (M) PART A Jun 20, 2014 PART A [id number] [phone] EAMON OLIVIA ERT PATIENT MEDICARE (WNR) MEDICARE (M) PART B Jun 20, 2014 PART B [id number] [phone] EAMON OLIVIA ERT PATIENT MEDICARE (WNR) MEDICARE (M) PART A Jun 20, 2014 PART A [id number] [phone] EAMON OLIVIA ERT PATIENT MEDICARE (WNR) MEDICARE (M) PART B Jun 20, 2014 PART B [id number] EAMON OLIVIA ERT PATIENT OPTUM RX PRESCRIPT ION RX Jun 20, 2023 THPRX [id number] EAMON OLIVIA ERT PATIENT OPTUM RX PRESCRIPT ION RX Jun 20, 2022 THPRX [id number] EAMON OLIVIA ERT PATIENT OPTUM RX PRESCRIPT ION RX Jun 20, 2022 THPRX [id number] DAVON OLIVIA JR PATIENT [facility] Jun 20, 2017 [id number] EAMON OLIVIA ERT PATIENT [facility] Jun 20, 2017 [id number] DAVON OLIVIA JR PATIENT [facility] E Jun 20, 2017 [id number] [phone] DAVON OLIVIA JR PATIENT [facility] US[facility] Jun 20, 2017 [id number] EAMON OLIVIA ERT PATIENT [facility] Jun 20, 2023 [id number] EAMON OLIVIA ERT PATIENT Selected Encounter This section includes the information on record at [place] for the Encounter. Date/Time Encounter Type Encounter Description Reason Provider Source May 31, 2023 01:14 PM HC PRO PHONE CALL 21-30 MIN TELEPHONE/WILLAM ADKINS ICD-10-CM Z74.1 Need for assistance with personal care TARAS MORGAN [facility] Encounter Template Text not used by [place] Assessments - Encounter Diagnoses This section includes the primary and secondary diagnoses documented for the Encounter. Date/Time Primary/Secondary Diagnosis Diagnosis Name Provider Source May 31, 2023 01:14 PM PRIMARY Need for assistance with personal care TARAS MORGAN [place] [facility] [place] [facility] Plan of Treatment: Future Appointments (+ 6 months) and Future Tests (+/- 45 days) The Plan of Treatment section includes future care activities for the patient from all [place] treatmentfacilities. This section includes future appointments and future orders which are active, pending or scheduled. Future Appointments This section includes appointments that were scheduled to occur 6 months from the date of the Encounter, up to a maximum of 20 appointments. The data comes from all [place] treatment facilities. Appointment Date/Time Appointment Type Appointme nt Facility Name Jul 19, 2023 01:00 PM AMBULATORY - PSYCHIATRY [facility] [place] [facility] Jul 19, 2023 01:00 PM AMBULATORY - [place]IATRY [place] [facility] Oct 17, 2023 01:00 PM AMBULATORY - MEDICINE [place] [facility] [place] [facility] Oct 17, 2023 01:15 PM AMBULATORY - [facility] Lab Results: +/- 30 days of the encounter This section includes the Chemistry and Hematology Lab Results on record with [place] for the patient. Radiology Reports and Pathology Reports are provided separately, in subsequent sections. Lab Results This section contains the Chemistry/Hematology Results that were resulted 30 days before or 30 daysafter the date of the Encounter. Date/Time Source Result Type Result - Unit Interpretation Reference Range Comment May 26, 2023 12:00 PM [facility] FOLATE Specimen Type: SERUM No comment entered. Ordering Provider: CÉSAR JONES Report Released Date/Time: May 20, 2023 01:26 PM Reporting Lab[facility] [address] [facility] [address] Performing Lab: [facility] [address] [facility] [address] FOLATE 13.04 ng/mL >5.2 May 26, 2023 12:00 PM [facility] VITAMIN D (25-OH) Specimen Type: SERUM No comment entered. Ordering Provider: CÉSAR JONES Report Released Date/Time: May 20, 2023 01:26 PM Reporting Lab: [facility]ITALTRN [facility] [address] [facility] [address] Performing Lab: [facility]ITALUSE[address] [address] VITAMIN D (25-OH) 32 ng/mL 20-50 May 26, 2023 12:00 PM [facility] VITAMIN B12 Specimen Type: SERUM No comment entered. Ordering Provider: CÉSAR JONES Report Released Date/Time: May 20, 2023 01:26 PM Reporting Lab: [address] [address] Performing Lab: [address] [address] VITAMIN B12 610 pg/mL 200-900 May 26, 2023 12:00 PM [facility] CBC Specimen Type: BLOOD No comment entered. Ordering Provider: CÉSAR JONES Report Released Date/Time: May 20, 2023 01:26 PM Reporting Lab: [address] [address] Performing Lab: [address] [address] WBC 7.69 10*3/uL 4.50-11.00 RBC 4.72 10*6/uL 4.23-5.66 HGB 14.0 g/dL 12.8-17 HCT 43.4 39.2-50.4 MCV 91.9 fL 82-99 MCHC 32.3 g/dL 30.8-35.1 PLT 296 10*3/uL 140-360 RDW-CV 12.4 12.0-16.0 MCH 29.7 pg 26.2-32.6 May 26, 2023 12:00 PM [facility] BASIC METABOLIC PANEL (fasting) Specimen Type: SERUM No comment entered. Ordering Provider: CÉSAR JONES Report Released Date/Time: May 20, 2023 01:26 PM Reporting Lab: [address] [address] Performing Lab: [address] [address] UREA NITROGEN 17 mg/dL 7-25 GLUCOSE 89 mg/dL 65-100 SODIUM 139 mmol/L 135-145 POTASSIUM 3.5 mmol/L 3.5-5.0 CHLORIDE 99 mmol/L L 100-110 CO2 31 meq/L H 20-30 CREATININE, Serum 1.08 mg/dL 0.50-1.40 eGFR(CKD-EPI 2020) 72 mL/min >60 May 26, 2023 12:00 PM [facility]ITALR[facility]ITALTRN [place] [facility] LIPID PANEL FASTING Specimen Type: SERUM No comment entered. Ordering Provider: CÉSAR JONES Report Released Date/Time: May 20, 2023 01:26 PM Reporting Lab: [facility]ITALR[facility]ITALTR[facility] [place] [facility] [address] [facility] [address] Performing Lab: [facility]ITALRFLORAL[facility]OSPITALTRN [facility] [address] [facility] [address] CHOLESTEROL 204 mg/dL H TRIGLYCERIDE 67 mg/dL 0-150 LDL calculated 135 mg/dL H 0-129 CHOL/HDL 3.6 HDL CHOLESTEROL 56 mg/dL 40-60 May 26, 2023 12:00 PM [facility] CALCIUM Specimen Type: SERUM No comment entered. Ordering Provider: CÉSAR JONES Report Released Date/Time: May 20, 2023 01:26 PM Reporting Lab: [facility]ITAL[facility]ITALTR[facility] [place] [facility] [address] [facility] [address] Performing Lab: [facility]ITAL[facility]ETS [address] [address] CALCIUM 9.1 mg/dL 8.5-10.2 May 26, 2023 12:00 PM [facility] TSH Specimen Type: SERUM No comment entered. Ordering Provider: CÉSAR JONES Report Released Date/Time: May 20, 2023 01:26 PM Reporting Lab: [facility]ITAL[facility]ITALTR[facility] [place] [facility] [address] [facility] [address] Performing Lab: [facility]ITALR[facility]ITALTRN [place] [address] [address] TSH 1.64 u[IU]/mL 0.35-5.00 May 26, 2023 12:00 PM [facility] HEMOGLOBIN A1C PANEL Specimen Type: BLOOD Comment: Values obtained from A1C measurements can vary. For atypical A1C assays, a reported value of 7.0 could actually be between 6.72 and 7.28 if measured by a reference method. A reported value of 9.0 could actually be between 8.73 and 9.27. Ref: http://www.ngs p.org/CAPdata. asp Ordering Provider: CÉSAR JONES Report Released Date/Time: May 20, 2023 01:26 PM Reporting Lab: [facility] [address] [facility] [address] Performing Lab: [address] [address] HEMOGLOBIN A1C 5.1 4.0-5.6 May 26, 2023 12:00 PM [facility] FERRITIN Specimen Type: SERUM No comment entered. Ordering Provider: CÉSAR JONES Report Released Date/Time: May 20, 2023 01:26 PM Reporting Lab: [facility] [address] [facility] [address] Performing Lab: [address] [address] FERRITIN 95 ng/mL 20-300 May 26, 2023 12:00 PM [facility] IRON & TIBC PANEL Specimen Type: SERUM No comment entered. Ordering Provider: CÉSAR JONES Report Released Date/Time: May 20, 2023 01:26 PM Reporting Lab: [facility] [address] [facility] [address] Performing Lab: [address] [address] TIBC 301 ug/dL 204-475 IRON 106 ug/dL 40-160 Transferrin Saturation 35.2 20.0-50.0 May 26, 2023 12:00 PM [facility] MAGNESIUM Specimen Type: SERUM No comment entered. Ordering Provider: CÉSAR JONES Report Released Date/Time: May 20, 2023 01:26 PM Reporting Lab: [facility] [address] [facility] [address] Performing Lab: [address] [address] MAGNESIUM 2.0 mg/dL 1.6-2.6 May 26, 2023 12:00 PM [facility] CREATININE (eGFR 2020) Specimen Type: SERUM No comment entered. Ordering Provider: CÉSAR JONES Report Released Date/Time: May 20, 2023 01:26 PM Reporting Lab: [facility] [address] [facility] [address] Performing Lab: [address] [address] CREATININE, Serum 1.08 mg/dL 0.50-1.40 eGFR(CKD-EPI 2020) 72 mL/min >60 May 26, 2023 12:00 PM [facility] LIVER FUNCTION Specimen Type: SERUM No comment entered. Ordering Provider: CÉSAR JONES Report Released Date/Time: May 20, 2023 01:26 PM Reporting Lab: [facility] [address] [facility] [address] Performing Lab: [address] [address] PROTEIN,TOTAL 6.6 g/dL 6.0-8.3 ALBUMIN 3.4 g/dL L 3.5-5.0 ALKALINE PHOSPHATASE 67 U/L 40-150 AST 20 U/L 5-34 ALT 8 U/L BILIRUBIN, TOTAL 0.5 mg/dL 0.2-1.2 May 26, 2023 12:00 PM [facility] PT & INR (COUMADIN) Specimen Type: PLASMA No comment entered. Ordering Provider: CÉSAR JONES Report Released Date/Time: May 20, 2023 01:26 PM Reporting Lab: [address] [address] Performing Lab: [address] [address] INR 1.4 PROTIME 15.1 s H 10.0-13.1 Social History: Smoking Status (Most current) and Tobacco Use (All prior to encounter date) This section includes the most current, and the historical, smoking and tobacco- related health factors from the [place] facility where the Encounter took place. Current Smoking Status This section includes the most current smoking, or tobacco-related health factor, from the [place] facility where the Encounter took place. Date/Time Current Smoking Status Comment Raghu melchor Jan 19, 2023 12:24 PM VA-TOBACCO NEVER USED [facility] Tobacco Use History This section includes a history of the smoking, or tobacco-related health factors, that were collected on or before the date of the Encounter. The data comes from the [place] facility where the Encounter took place. Date/Time Smoking Status/Tobacco Use Comment F acility Jan 15, 2021 11:00 AM VA-TOBACCO NEVER USED [facility] Advance Directives: All historical and current Section Date Range: From patient's date of to the date document was created. This section includes ALL of a patient's completed or amended [place] Advance and Rescinded Directives. The entries below indicate that a directive exists for the patient, but an actual copy is not included with this document. The data comes from all [place] facilities. Date Advance Directives Provider Source Jan 20, 2021 ADVANCE DIRECTIVE BENTON ARAUZ [facility] Encounter Notes: All associated encounter notes This section contains the clinical notes associated to the Encounter. Date/Time Encounter Note(s) Provider Source May 31, 2023 01:14 PM CONSULT: LOCAL TITLE: CONSULT REPORT/CAREGIVER SUPPORT STANDARD TITLE: CONSULT DATE OF NOTE: MAY 31, 2023@13:14 ENTRY DATE: MAY 31, 2023@13:14:59 AUTHOR: FANNY MORGAN COSIGNER: URGENCY: STATUS: COMPLETED Name of Caregiver: Tory Olivia Relationship of Caregiver to the : The caregiver is the Ashford's spouse. Caregiver Contact number: [phone] Reason(s) for Referral: Caregiver support groups Caregiver education and training Services/Education Offered: Navigating VA healthcare and services Information provided Discussed VA service connection and the challenge in navigating VA. Program of General Caregiver Support Services Information provided Referral made Assessment and Plan: This screen writer spoke with Veterans spouse/caregiver Tory who was very interested in enrolling in the Caregiver Support Program (CSP). This screen writer inquired whether CG had time to discuss the program now or schedule a later day. CG shared that she is always busy however, had time to review the CSP stating I need it . was watching television while CG spoke with screen writer. CG expressed feeling overwhelmed and sometimes angry about their current situation. She further shared that her anger comes from lack of sleep and general tiredness as she never has relief from caregiving. CG is also struggling with her own health concerns including immunodeficiency cancer. has Parkinson's Disease which requires her to provide oversight 10/01. The has WEAVE ROOM SUPERVISOR 16 hours weekly -W- for 3 hours. CG reports this is helpful although she is not entirely comfortable leaving the aide and her alone just yet. Once she trusts that they are able to meet the needs of her Ashford and with time she will be able to leave them for some respite. CG reports her number one stressor as lack of sleep . Enologist will develop a more comprehensive assessment and plan which can be viewed in the Ashford Intake & Caregiver Review once complete. Plan: Enologist will enroll in the Program of General Caregiver Support Services (PGCSS). Send PGCSS Factsheet by [facility] for CG/ review E-mail May newsletter and upcoming support groups Once CG/Ashford receive PGCSS information and review the resources and supports available, screen writer will discuss in more detail. /sharron/ FANNY MORGAN [facility],PGCSS Signed: 05/31/2023 13:34 LIZZETH MORGAN PR CNTRTricia BARNESTREstela [facility]
--- OUTSIDE RECORDS SUMMARY | 2024-05-30 08:38 | XMS_ITS | Encounter Summary ---
Author Name [facility] Organization [facility] [place] Address [address] [place] [id number] Care Team Providers Care Radiology Technician Name Role Phone LUIS FERNANDO FONTANEZ Primary Care Provider Unavailabl e AMANDO OHARA Unavailable Unavailable RARAMIN KEYES Unavailable Unavailable SUNIL, KALYAN Unavailable Unavailable GOLD, KAMILAH Unavailable Unavailable RIGO FENTON Unavailable Unavailable IMELDA, [...] PRESCRIPT ION [id number] 1 Jun 20, 2017 [id number] [phone] EMAON OLIVIA ERT PATIENT MEDICARE (WNR) MEDICARE (M) PART A Jun 20, 2014 PART A [id number] EAMON OLIVIA ERT PATIENT MEDICARE (WNR) MEDICARE (M) PART B Jun 20, 2014 PART B [id number] [phone] EAMON OLIVIA ERT PATIENT MEDICARE (WNR) MEDICARE (M) PART A Jun 20, 2014 PART A [id number] EAMON OLIVIA ERT PATIENT MEDICARE (WNR) MEDICARE (M) PART B Jun 20, 2014 PART B [id number] EAMON OLIVIA ERT PATIENT [facility] RX PRESCRIPT ION RX Jun 20, 2023 [facility] [id number] EAMON OLIVIA ERT PATIENT [facility] RX PRESCRIPT ION RX Jun 20, 2022 THPR[facility] [id number] EAMON OLIVIA ERT PATIENT [facility] RX PRESCRIPT ION RX Jun 20, 2022 [facility] [id number] [phone] DAVON OLIVIA JR PATIENT [facility] Jun 20, 2017 [id number] EAMON OLIVIA ERT PATIENT [facility] E Jun 20, 2017 [id number] [phone] DAVON OLIVIA JR PATIENT [facility] E Jun 20, 2017 [id number] DAVON OLIVIA JR PATIENT [facility] Jun 20, 2017 [facility] [id number] [phone] EAMON OLIVIA ERT PATIENT [facility] Jun 20, 2023 [id number] EAMON OLIVIA ERT PATIENT Selected Encounter This section includes the information on record at [place] for the Encounter. Date/Time Encounter Type Encounter Description Reason Provider Source November 10, 2023 12:59 AM Outpatient Encounter CARDIOLOGY ICD-10-CM I48.91 Unspecified atrial fibrillation SERENA LORENZO [facility] Encounter Template Text not used by [place] Assessments - Encounter Diagnoses This section includes the primary and secondary diagnoses documented for the Encounter. Date/Time Primary/Secondary Diagnosis Diagnosis Name Provider Source November 10, 2023 01:10 AM PRIMARY Unspecified atrial fibrillation SERENA LORENZO [facility] Plan of Treatment: Future Appointments (+ 6 months) and Future Tests (+/- 45 days) The Plan of Treatment section includes future care activities for the patient from all [facility] treatment[facility]ilities. This section includes future appointments and future orders which are active, pending or scheduled. Future Appointments This section includes appointments that were scheduled to occur 6 months from the date of the Encounter, up to a maximum of 20 appointments. The data comes from all [place] treatment facilities. Appointment Date/Time Appointment Type Appointme nt Facility Name Dec 26, 2023 11:00 AM [facility] [...] - MEDICINE [facility] [place] [facility] Mar 22, 2024 01:00 PM AMBULATORY - NONE [facility] [place] Mar 27, 2024 02:30 PM AMBULATORY - MEDICINE [facility] Mar 29, 2024 11:00 AM AMBULATORY - REHAB MEDICIN E [facility] [place] Apr 12, 2024 11:00 AM AMBULATORY - REHAB MEDICIN E [facility] Apr 26, 2024 09:00 AM AM[facility]ULATORY - MEDIC[facility] [place] [facility] Apr 26, 2024 11:00 AM AMBULATORY - REHAB MEDICIN E [facility] Advance Directives: All historical and current Section Date Range: From patient's date of to the date document was created. This section includes ALL of a patient's completed or amended VA Advance and Rescinded Directives. The entries below indicate that a directive exists for the patient, but an actual copy is not included with this document. The data comes from all [place] facilities. Date Advance Directives Provider Source Jan 20, 2021 ADVANCE DIRECTIVE BENTON ARAUZ [facility] [place] [facility] Encounter Notes: All associated encounter notes This section contains the clinical notes associated to the Encounter. Date/Time Encounter Note(s) Provider Source November 10, 2023 01:00 AM CARDIOLOGY CONSULT : LOCAL TITLE: CARDIOLOGY E-CONSULT NOTE ([facility]) STANDARD TITLE: CARDIOLOGY CONSULT DATE OF NOTE: NOVEMBER 10, 2023@01:00 ENTRY DATE: NOVEMBER 10, 2023@01:00:14 AUTHOR: DOUGLAS LORENZO EXP COSIGNER: URGENCY: STATUS: COMPLETED Cardiology E consult: REFason for consult: Management [...] atrial appendage occlusion with a Watchman procedure. Pleasse submit a cardiology EP consult to evaluate patient for watchman procedure. /sharron/ DOUGLAS LORENZO MD Cardiology Attending Signed: 11/10/2023 01:10 DOUGLAS LORENZO [facility]
--- OUTSIDE RECORDS SUMMARY | 2024-05-30 08:38 | XMS_ITS | Encounter Summary ---
Author Name [facility] Organization [facility] Address [address] [place] [address] Care Team Providers Care Automatic Lathe Tender Name Role Phone LUIS FERNANDO FONTANEZ Primary [...] SIMS ION [id number] 1 Jun 20, 2017 [id number] EAMON OLIVIA ERT PATIENT MEDICARE (WNR) MEDICARE (M) PART A Jun 20, 2014 PART A [id number] [phone] EAMON OLIVIA ERT PATIENT MEDICARE (WNR) MEDICARE (M) PART B Jun 20, 2014 PART B [id number] EAMON OLIVIA ERT PATIENT MEDICARE (WNR) MEDICARE (M) PART A Jun 20, 2014 PART A [id number] EAMON OLIVIA ERT PATIENT MEDICARE (WNR) MEDICARE (M) PART B Jun 20, 2014 PART B [id number] EAMON OLIVIA ERT PATIENT OPTUM RX PRESCRIPT ION RX Jun 20, 2023 THPRX [id number] [phone] EAMON OLIVIA ERT PATIENT [facility]UM RX PRESCRIPT ION RX Jun 20, 2022 THPRX [id number] EAMON OLIVIA ERT PATIENT OPT[facility] RX PRESCRIPT ION RX Jun 20, 2022 THPRX [id number] [phone] DAVON OLIVIA JR PATIENT [facility] TON MAR Jun 20, 2017 [id number] EAMON OLIVIA ERT PATIENT [facility] TON PEÑA E Jun 20, 2017 [id number] DAVON OLIVIA JR PATIENT [facility] PEÑA E Jun 20, 2017 [id number] [phone] [id number] DAVON OLIVIA JR PATIENT [facility] USP Jun 20, [address] [facility] [id number] EAMON OLIVIA ERT PATIENT [facility] T[facility] Jun 20, 2023 [id number] EAMON OLIVIA ERT PATIENT Selected Encounter This section includes the information on record at [place] for the Encounter. Date/Time Encounter Type Encounter Description Reason Provider Source Jun 01, 2023 12:31 PM HC PRO PHONE CALL 11-20 MIN TELEPHONE/WILLAM ADKINS ICD-10-CM Z74.1 Need for assistance with personal care TARAS MORGAN [facility] Encounter Template Text not used by [place] Assessments - Encounter Diagnoses This section includes the primary and secondary diagnoses documented for the Encounter. Date/Time Primary/Secondary Diagnosis Diagnosis Name Provider Source Jun 01, 2023 12:31 PM PRIMARY Need for assistance with personal care TARAS MORGAN [facility] [place] [facility] Plan of Treatment: Future Appointments (+ 6 months) and Future Tests (+/- 45 days) The Plan of Treatment section includes future care activities for the patient from all [place] treatmentfacilities. This section includes future appointments and future orders which are active, pending or scheduled. Future Appointments This section includes appointments that were scheduled to occur 6 months from the date of the Encounter, up to a maximum of 20 appointments. The data comes from all [place] treatment facilities. Appointment Date/Time Appointment Type Appointme nt Facility Name Jul 19, 2023 01:00 PM AMBULATORY - [facility]IATRY [facility] [place] [facility] Jul 19, 2023 01:00 PM AMBULATORY [place] [facility] Oct 17, 2023 01:00 PM AMBULATORY - MEDICINE [place] [facility] [place] [facility] Oct 17, 2023 01:15 PM AMBULATORY - MEDICINE [facility] Lab Results: +/- 30 days of the encounter This section includes the Chemistry and Hematology Lab Results on record with [place] for the patient. Radiology Reports and Pathology Reports are provided separately, in subsequent sections. Lab Results This section contains the Chemistry/Hematology Results that were resulted 30 days before or 30 daysafter the date of the Encounter. Date/Time Source Result Type Result - Unit Interpretation Reference Range Comment May [facility], 2023 12:[facility] FOLATE Specimen Type: SERUM No comment entered. Ordering Provider: CÉSAR JONES Report Released Date/Time: May 20, 2023 01:26 PM Reporting [facility] [address] [facility] [address] Performing [facility]: [facility] [address] [facility] [address] FOLATE 13.04 ng/mL >5.2 May 26, 2023 12:00 PM [facility] VITAMIN D (25-OH) Specimen Type: SERUM No comment entered. Ordering Provider: CÉSAR JONES Report Released Date/Time: May 20, 2023 01:26 PM Reporting Lab: [facility] [address] [facility] [facility] [address] Performing [facility]: [facility] [address] VITAMIN D (25-OH) 32 ng/mL 20-50 May 26, 2023 12:00 PM [facility] VITAMIN B12 Specimen Type: SERUM No comment entered. Ordering Provider: CÉSAR JONES Report Released Date/Time: May 20, 2023 01:26 PM Reporting Lab: [address] [address] Performing Lab: [address] [address] VITAMIN B12 610 pg/mL 200-900 May 26, 2023 12:00 PM [facility] CBC Specimen Type: BLOOD No comment entered. Ordering Provider: CÉSAR JONES Report Released Date/Time: May 20, 2023 01:26 PM Reporting Lab: [address] [address] Performing Lab: [address] [address] WBC 7.69 10*3/uL 4.50-11.00 RBC 4.72 10*6/uL 4.23-5.66 HGB 14.0 g/dL 12.8-17 HCT 43.4 39.2-50.4 MCV 91.9 fL 82-99 MCHC 32.3 g/dL 30.8-35.1 PLT 296 10*3/uL 140-360 RDW-CV 12.4 12.0-16.0 MCH 29.7 pg 26.2-32.6 May 26, 2023 12:00 PM [facility] BASIC METABOLIC PANEL (fasting) Specimen Type: SERUM No comment entered. Ordering Provider: CÉSAR JONES Report Released Date/Time: May 20, 2023 01:26 PM Reporting Lab: [address] [address] Performing Lab: [address] [address] UREA NITROGEN 17 mg/dL 7-25 GLUCOSE 89 mg/dL 65-100 SODIUM 139 mmol/L 135-145 POTASSIUM 3.5 mmol/L 3.5-5.0 CHLORIDE 99 mmol/L L 100-110 CO2 31 meq/L H 20-30 CREATININE, Serum 1.08 mg/dL 0.50-1.40 eGFR(CKD-EPI 2020) 72 mL/min >60 May 26, 2023 12:00 PM [facility] [place] [facility] LIPID PANEL FASTING Specimen Type: SERUM No comment entered. Ordering Provider: CÉSAR JONES Report Released Date/Time: May 20, 2023 01:26 PM Reporting Lab: [facility] [place] [facility] [address] [facility] [address] Performing Lab: [facility]ITALTRN [facility] [address] [facility] [address] CHOLESTEROL 204 mg/dL H TRIGLYCERIDE 67 mg/dL 0-150 LDL calculated 135 mg/dL H 0-129 CHOL/HDL 3.6 HDL CHOLESTEROL 56 mg/dL 40-60 May 26, 2023 12:00 PM [facility] CALCIUM Specimen Type: SERUM No comment entered. Ordering Provider: CÉSAR JONES Report Released Date/Time: May 20, 2023 01:26 PM Reporting Lab: [facility]TR[facility] [place] [facility] [address] [address] Performing [facility]: [facility] [address] [address] CALCIUM 9.1 mg/dL 8.5-10.2 May 26, 2023 12:00 PM [facility] TSH Specimen Type: SERUM No comment entered. Ordering Provider: CÉSAR JONES Report Released Date/Time: May 20, 2023 01:26 PM Reporting Lab: [facility]ITALTR[facility] [place] [facility] [address] [facility] [address] Performing Lab: [facility]TR[facility] [place] [address] [address] TSH 1.64 u[IU]/mL 0.35-5.00 May 26, 2023 12:00 PM [facility] HEMOGLOBIN A1C PANEL Specimen Type: BLOOD [...] May 20, 2023 01:26 PM Reporting Lab: [facility]ITAL[facility]N [facility] [address] [facility] [address] Performing Lab: [facility]ITAL[facility]ITALN [facility] [address] [address] HEMOGLOBIN A1C 5.1 4.0-5.6 May 26, 2023 12:00 PM [facility] IRON & TIBC PANEL Specimen Type: SERUM No comment entered. Ordering Provider: CÉSAR JONES Report Released Date/Time: May 20, 2023 01:26 PM Reporting Lab: [facility] [address] [facility] [address] Performing [facility]: [facility]USE[address] [address] TIBC 301 ug/dL 204-475 IRON 106 ug/dL 40-160 Transferrin Saturation 35.2 20.0-50.0 May 26, 2023 12:00 PM [facility] FERRITIN Specimen Type: SERUM No comment entered. Ordering Provider: CÉSAR JONES Report Released Date/Time: May 20, 2023 01:26 PM Reporting Lab: [facility]ITALRM[facility]PITALN [facility] [address] [facility] [address] Performing Lab: [facility]STITUTE[facility] [address] FERRITIN 95 ng/mL 20-300 May 26, 2023 12:00 PM [facility] MAGNESIUM Specimen Type: SERUM No comment entered. Ordering Provider: CÉSAR JONES Report Released Date/Time: May 20, 2023 01:26 PM Reporting Lab: [facility]ITALRMOUNT[facility]PITALN [facility] [address] [facility] [address] Performing [facility]: [facility]USE[address] [address] MAGNESIUM 2.0 mg/dL 1.6-2.6 May 26, 2023 12:00 PM [facility] CREATININE (eGFR 2020) Specimen Type: SERUM No comment entered. Ordering Provider: CÉSAR JONES Report Released Date/Time: May 20, 2023 01:26 PM Reporting Lab: [facility] [address] [facility] [facility] [address] Performing Lab: [address] [address] CREATININE, Serum 1.08 mg/dL 0.50-1.40 eGFR(CKD-EPI 2020) 72 mL/min >60 May 26, 2023 12:00 PM [facility] LIVER FUNCTION Specimen Type: SERUM No comment entered. Ordering Provider: CÉSAR JONES Report Released Date/Time: May 20, 2023 01:26 PM Reporting Lab: [facility] [address] [facility] [address] Performing Lab: [address] [address] PROTEIN,TOTAL 6.6 g/dL 6.0-8.3 ALBUMIN 3.4 g/dL L 3.5-5.0 ALKALINE PHOSPHATASE 67 U/L 40-150 AST 20 U/L 5-34 ALT 8 U/L BILIRUBIN, TOTAL 0.5 mg/dL 0.2-1.2 May 26, 2023 12:00 PM [facility] PT & INR (COUMADIN) Specimen Type: PLASMA No comment entered. Ordering Provider: CÉSAR JONES Report Released Date/Time: May 20, 2023 01:26 PM Reporting Lab: [address] [address] Performing Lab: [address] [address] INR 1.4 PROTIME 15.1 s H 10.0-13.1 Social History: Smoking Status (Most current) and Tobacco Use (All prior to encounter date) This section includes the most current, and the historical, smoking and tobacco- related health factors from the [place] facility where the Encounter took place. Current Smoking Status This section includes the most current smoking, or tobacco-related health factor, from the [place] facility where the Encounter took place. Date/Time Current Smoking Status Comment Raghu ity Jan 19, 2023 12:24 PM VA-TOBACCO NEVER USED [facility] Tobacco Use History This section includes a history of the smoking, or tobacco-related health factors, that were collected on or before the date of the Encounter. The data comes from the [place] facility where the Encounter took place. Date/Time Smoking Status/Tobacco Use Comment F acility Jan 15, 2021 11:00 AM VA-TOBACCO NEVER USED [facility] Advance Directives: All historical and current Section Date Range: From patient's date of to the date document was created. This section includes ALL of a patient's completed or amended [place] Advance and Rescinded Directives. The entries below indicate that a directive exists for the patient, but an actual copy is not included with this document. The data comes from all [place] facilities. Date Advance Directives Provider Source Jan 20, 2021 ADVANCE DIRECTIVE [facility] Encounter Notes: All associated encounter notes This section contains the clinical notes associated to the Encounter. Date/Time Encounter Note(s) Provider Source Jun 01, 2023 12:31 PM CAREGIVER CERTIFICATE: LOCAL TITLE: [facility] INTAKE STANDARD TITLE: CAREGIVER CERTIFICATE DATE OF NOTE: JUN 01, 2023@12:31 ENTRY DATE: JUN 01, 2023@12:31:42 AUTHOR: FANNY MORGAN COSIGNER: URGENCY: STATUS: COMPLETED Program of General Caregiver Support Services (PGCSS) [place] Intake Program of General Caregiver Support Services (PGCSS) [place] Intake The Program of General Caregiver Support Services (PGCSS) provides services to caregivers of eligible Veterans of any era. Services includes training, education, respite care, a telephone support line, self-care courses and other services. These services are available to support caregivers of Veterans enrolled in [place] for health care, who require a caregiver for assistance. For purposes of the [facility], the eligibility criteria includes a who is enrolled in the VA health care system and needs personal care services because the [place] is either unable to perform one or more activities of daily living or needs supervision or protection based on symptoms or residuals of neurological or other impairment or injury. No formal application or VA clinical treatment team evaluation is required to obtain benefits as a General Caregiver. DISCLAIMER: A caregiver who applies for or participates in the [facility] is not an indication that the named caregiver is the legal next-of-kin or decision maker. Date of Visit: May The [place] was identified using the following nieto identifiers: Full name: DAVON OLIVIA JR Full SSN: [id number] Date of : Jun Method of contact: Telephone CAREGIVER INFORMATION Name: Tory Olivia Address: [address] [place] [address] Phone number: [phone] Email: [email or web address] Relationship to [place]: Spouse [place] currently lives with the identified caregiver. INFORMATION [place]/Caregiver reports is currently enrolled in [place] health care. [place]/Caregiver reports has a [place] Primary Care provider. Name of provider: Dr. Moreno Additional details: [facility] team assigned [place]/Caregiver reports [place] has a [facility] Primary Care provider. Name of provider: Dr. Beyer Additional details: Sees every 6-12 months REPORTED NEEDS/CURRENT SUPPORTS /Caregiver reports [place] needing assistance with the following ADLs: Eating Details: CG prepares all meals and supervises meal time Bathing Details: [place] requires assistance with bathing, grooming and dressing Toileting Details: [place] has incontinence and wears adult briefs, CG provides assistance Mobility Details: Limited mobility, ambulates a few steps to bathroom although requires full support for transfers. [place]/Caregiver reports the following assistance needed related to supervision, protection and/or instruction: [place] has Parkinson's Disease among other health diagnosis. He requires 24/7 care and protection from /CG. Has had falls that broke bones, choking incidents and cannot be on his own. agrees to receive personal care services from the identified caregiver. The [place] is receiving care from another individual or agency. Services provided by another individual/agency and by whom: has Home Health Aide 9 hours a week (some notes indicate 16 hours, manual writer will f/u) is also followed by [facility] neuro, whom he would like to continue to see. He is also followed by [facility] senior group manager, and [facility] urologist, Dr. Soares. The following needs are reported by [place]/caregiver: [place] is fully dependent on his /caregiver. has Parkinson's and other major health issues that have affected his ability to care for himself. [place] is now receiving [facility] services in home which has been helpful. However, they continue to have multiple community providers for various health specialties for [place]. CG/ need support with service connection. They also could benefit from a transportation service as CG reports tremendous difficulty in transferring the [place] from and into their vehicle. CG also reports a need for more sleep as she is often disrupted by her [place]. He tends to sleep during the day and they have not been able to alter this pattern. CG appreciates the COMPUTER INSTALLER support although she hasn't had a consistent aide coming in the home which has made it difficult for her to trust them. CG reports that the original aide that was assigned to the dyad has recently returned to working with them. CG once comfortable will be able to utilize this time when the COMPUTER INSTALLER comes, to get respite for her own self-care. CG also reports the need for support and education around caregiving due to her feelings of being overwhelmed. SUMMARY: Mr. Davon Olivia is a 72 year old who served in the [employer] in 1994 and again in 2002. Mr. Olivia is not service connected at this time and recently began receiving [facility] through the [facility]. Mr. Olivia lives with his Tory and they do not have children. Tory is also providing 24/7 care to her /[place] due to multiple health issues. Mr. Olivia is diagnosed with Parkinson's disease, insomnia, incontinence, memory loss and dementia. receives a home health aide 9 hours a week. The dyad was referred to the caregiver support program through their [facility] social work supervisor due to the level of caregiver burden Mrs. Olivia is experiencing. This manual writer spoke with the dyad who agree to receive services through the caregiver support program. This manual writer provided information on the resources and support that is available through the program of general caregiver support services or PGCSS. [place] was watching television next to the caregiver during the enrollment process. CG expressed feeling overwhelmed and sometimes angry about their current situation. She further shared that her anger comes from lack of sleep and general tiredness as she never has relief from caregiving. The caregiver stated that the well wake her up at night because he is awake. She states that the will nap during the daytime and does not sleep at night which then causes her to be unable to sleep, receiving five to six hours possibly a night of sleep. Tool Grinder provided education and support around sleep cycles and routines asking various questions, caregiver states that the is on medication and they are trying to reset his sleep cycle but have not been successful thus far. The caregiver reports that because she is so tired she then becomes irritable and easily agitated with her . Then she will feel guilty about getting angry at him and the cycle starts again. Tool Grinder validated her feelings and shared that other caregivers experience the same emotions. CG is also struggling with her own health concerns including immunodeficiency cancer. As stated above, the [place] has COMPUTER INSTALLER 16 hours weekly -- for 3 hours. CG reports this is helpful although she is not entirely comfortable leaving the aide and her alone just yet. Once she trusts that they are able to meet the needs of her and with time she will be able to leave them for some respite. CG reports her number one stressor as lack of sleep and upon further discussion she reports her second goal is to learn to manage her anger better. This manual writer provided an overview of the caregiver support program and briefly discussed the resources and supports available to her. Tool Grinder offered to send the informational flyer that lists all of the resources, groups and programs for PGCSS for her to review and discuss at a later time. Caregiver asked for the flyer to be sent by [facility] and asked if she could attend groups virtually as she is unable to leave the house. This manual writer explained that yes the groups will be virtual. CG and are committed to living independently in the home as long as they can. After speaking with the dyad, it is clear the CG is exhausted and doing her best to care for the [place]. She does have a brother, Stephon who helps to care for the [place] when he is able. CG reports that Stephon also is a [place] and receiving services through the VA due to disability so his help is limited. The [place] speaks with his sister on the phone which he enjoys. Due to his Parkinson's he is unable to read books or enjoy other hobbies he has done in the past. CG shared with manual writer that she has 3 birds a parrot and 2 cockatiel that keep her occupied. She is struggling with multimedia assistant caregiving due to her own health and limitations. She expressed the need and desire to have support around caregiving and really wants to work on her own self-care. PLAN: Send [facility] Factsheet by [facility] for CG/[place] review E-mail May newsletter and upcoming support groups Once CG/[place] receive [facility] information and review the resources and supports available, manual writer will discuss in more detail with her. CG needs support around the basic care of the including transportation assistance and possibly some adult day programming for the . Tool Grinder will research available supports and resources in the [facility] to assist them. Tool Grinder encouraged CG to be fully transparent with the Veterans [facility] team in regards to the Veterans health i.e. insomnia concerns. Tool Grinder educated CG that sharing her own concerns and sharing the needs of the [place] with the VA team will allow them to fully support the dyad in maintaining living in the home. Tool Grinder discussed VA benefits and supports that they can access that neither I or they may know about, highlighting the importance of the primary care team to provide certain referrals and consults. Tool Grinder to provide additional education, coaching and referrals to their local Parkinson's chapter and elder resources. /es/ FANNY DEJESUS,[facility] Signed: 06/01/2023 14:22 LIZZETH MORGAN [facility]
--- OUTSIDE RECORDS SUMMARY | 2024-05-30 08:38 | XMS_ITS ---
Author Name [facility] [place] [facility] [place] Address [address] [place] [address] Care Team Providers Care Research And Development Specialist Name Role Phone LUIS FERNANDO FONTANEZ Primary [...] PRESCRIPT ION [id number] 1 Jun 20, 2017 [id number] [phone] EAMON OLIVIA ERT PATIENT MEDICARE (WNR) MEDICARE (M) PART A Jun 20, 2014 PART A [id number] EAMON OLIVIA ERT PATIENT MEDICARE (WNR) MEDICARE (M) PART B Jun 20, 2014 PART B [id number] EAMON OLIVIA ERT PATIENT MEDICARE (WNR) MEDICARE (M) PART A Jun 20, 2014 PART A [id number] EAMON OLIVIA ERT PATIENT MEDICARE (WNR) MEDICARE (M) PART B Jun 20, 2014 PART B [id number] [facility] EAMON OLIVIA ERT PATIENT OPTUM RX PRESCRIPT ION RX Jun 20, 2023 THPRX [id number] [phone] EAMON OLIVIA ERT PATIENT [facility] RX PRESCRIPT ION RX Jun 20, 2022 THPRX [id number] EAMON OLIVIA ERT PATIENT [facility] RX PRESCRIPT ION RX Jun 20, 2022 THPRX [id number] DAVON OLIVIA JR PATIENT [facility] TON MAR Jun 20, 2017 [id number] EAMON OLIVIA ERT PATIENT [facility] E Jun 20, 2017 [id number] [phone] DAVON OLIVIA JR PATIENT [facility] PLAN [facility] PE[facility] E Jun 20, 2017 [id number] [phone] DAVON OLIVIA JR PATIENT [facility] Jun 20, 2017 [id number] EAMON OLIVIA ERT PATIENT [facility] Jun 20, 2023 [id number] EAMON OLIVIA ERT PATIENT Selected Encounter This section includes the information on record at [place] for the Encounter. Date/Time Encounter Type Encounter Description Reason Provider Source May 31, 2023 03:45 PM [facility]-SERV OF PT,EA 15 MIN [facility] - THERAPIST ICD-10-CM G20.C Parkinsonism, unspecified RAIVEL,RAMIN IHE Encounter Template Text not used by [place] Assessments - Encounter Diagnoses This section includes the primary and secondary diagnoses documented for the Encounter. Date/Time Primary/Secondary Diagnosis Diagnosis Name Provider Source Jun 02, 2023 11:47 AM PRIMARY Parkinsonism, unspecified RAIVEL,RAMIN [place] [facility] [place] [facility] Plan of Treatment: Future Appointments (+ 6 months) and Future Tests (+/- 45 days) The Plan of Treatment section includes future care activities for the patient from all [place] treatmentfacilities. This section includes future appointments and future orders which are active, pending or scheduled. Future Appointments This section includes appointments that were scheduled to occur 6 months from the date of the Encounter, up to a maximum of 20 appointments. The data comes from all [place] treatment facilities. Appointment Date/Time Appointment Type Appointme nt Facility Name Jul 19, 2023 01:00 PM AMBULATORY - [place]IATRY [place] [facility] [place] [facility] Jul 19, 2023 01:00 PM AMBULATORY [place]AT[place] [facility] Oct 17, 2023 01:00 PM [place] [facility] [place] [facility] Oct 17, 2023 01:15 PM [place] [facility] Lab Results: +/- 30 days of the encounter This section includes the Chemistry and Hematology Lab Results on record with [place] for the patient. Radiology Reports and Pathology Reports are provided separately, in subsequent sections. Lab Results This section contains the Chemistry/Hematology Results that were resulted 30 days before or 30 daysafter the date of the Encounter. Date/Time Source Result Type Result - Unit Interpretation Reference Range Comment May 26, 2023 12:00 PM [facility] FOLATE Specimen Type: SERUM No comment entered. Ordering Provider: CÉSAR JONES Report Released Date/Time: May 20, 2023 01:26 PM Reporting Lab[facility] [place] [facility] [address] [facility] [address] Performing Lab: [facility] [address] [facility] [address] FOLATE 13.04 ng/mL >5.2 May 26, 2023 12:00 PM [facility] VITAMIN D (25-[place]) Specimen Type: SERUM No comment entered. Ordering Provider: CÉSAR JONES Report Released Date/Time: May 20, 2023 01:26 PM Reporting Lab: [facility] [address] [facility] [address] Performing Lab: [facility] [address] [facility] [address] VITAMIN D (25-OH) 32 ng/mL 20-50 May 26, 2023 12:00 PM [facility] VITAMIN B12 Specimen Type: SERUM No comment entered. Ordering Provider: CÉSAR JONES Report Released Date/Time: May 20, 2023 01:26 PM Reporting Lab: [facility] [address] [facility] [address] Performing Lab: [address] [address] VITAMIN B12 610 pg/mL 200-900 May 26, 2023 12:00 PM [facility] CBC Specimen Type: BLOOD No comment entered. Ordering Provider: CÉSAR JONES Report Released Date/Time: May 20, 2023 01:26 PM Reporting Lab: [address] [address] Performing Lab: [address] [address] WBC 7.69 10*3/uL 4.50-11.00 RBC 4.72 10*6/uL 4.23-5.66 HGB 14.0 g/dL 12.8-17 HCT 43.4 39.2-50.4 MCV 91.9 fL 82-99 MCHC 32.3 g/dL 30.8-35.1 PLT 296 10*3/uL 140-360 RDW-CV 12.4 12.0-16.0 MCH 29.7 pg 26.2-32.6 May 26, 2023 12:00 PM [facility] LIPID PANEL FASTING Specimen Type: SERUM No comment entered. Ordering Provider: CÉSAR JONES Report Released Date/Time: May 20, 2023 01:26 PM Reporting Lab: [address] [address] Performing Lab: [address] [address] CHOLESTEROL 204 mg/dL H TRIGLYCERIDE 67 mg/dL 0-150 LDL calculated 135 mg/dL H 0-129 CHOL/HDL 3.6 HDL CHOLESTEROL 56 mg/dL 40-60 May 26, 2023 12:00 PM [facility] BASIC METABOLIC PANEL (fasting) Specimen Type: SERUM No comment entered. Ordering Provider: CÉSAR JONES Report Released Date/Time: May 20, 2023 01:26 PM Reporting Lab: [facility] [place] [facility] [address] [facility] [address] Performing Lab: [facility] [address] [address] UREA NITROGEN 17 mg/dL 7-25 GLUCOSE 89 mg/dL 65-100 SODIUM 139 mmol/L 135-145 POTASSIUM 3.5 mmol/L 3.5-5.0 CHLORIDE 99 mmol/L L 100-110 CO2 31 meq/L H 20-30 CREATININE, Serum 1.08 mg/dL 0.50-1.40 eGFR(CKD-EPI 2020) 72 mL/min >60 May 26, 2023 12:00 PM [facility] CALCIUM Specimen Type: SERUM No comment entered. Ordering Provider: CÉSAR JONES Report Released Date/Time: May 20, 2023 01:26 PM Reporting Lab: [facility] [place] [address] [address] Performing Lab: [facility] [address] CALCIUM 9.1 mg/dL 8.5-10.2 May 26, 2023 12:00 PM [facility] TSH Specimen Type: SERUM No comment entered. Ordering Provider: CÉSAR JONES Report Released Date/Time: May 20, 2023 01:26 PM Reporting Lab: [facility] [place] [facility] [address] [facility] [address] Performing Lab: [facility] [address] [address] TSH 1.64 u[IU]/mL 0.35-5.00 May 26, 2023 12:00 PM [facility] HEMOGLOBIN A1C PANEL Specimen Type: BLOOD [...] May 20, 2023 01:26 PM Reporting Lab: [facility] [address] [facility] [address] Performing Lab: [facility] [address] [address] HEMOGLOBIN A1C 5.1 4.0-5.6 May 26, 2023 12:00 PM [facility] IRON & TIBC PANEL Specimen Type: SERUM No comment entered. Ordering Provider: CÉSAR JONES Report Released Date/Time: May 20, 2023 01:26 PM Reporting Lab: [facility] [address] [facility] [address] Performing Lab: [facility] [address] TIBC 301 ug/dL 204-475 IRON 106 ug/dL 40-160 Transferrin Saturation 35.2 20.0-50.0 May 26, 2023 12:00 PM [facility] MAGNESIUM Specimen Type: SERUM No comment entered. Ordering Provider: CÉSAR JONES Report Released Date/Time: May 20, 2023 01:26 PM Reporting Lab: [facility] [address] [facility] [address] Performing Lab: [facility]TR[facility] [address] [address] MAGNESIUM 2.0 mg/dL 1.6-2.6 May 26, 2023 12:00 PM [facility] FERRITIN Specimen Type: SERUM No comment entered. Ordering Provider: CÉSAR JONES Report Released Date/Time: May 20, 2023 01:26 PM Reporting Lab: [facility] [address] [facility] [address] Performing Lab: [facility]ITAL[facility] [address] [address] FERRITIN 95 ng/mL 20-300 May 26, 2023 12:00 PM [facility] CREATININE (eGFR 2020) Specimen Type: SERUM No comment entered. Ordering Provider: CÉSAR JONES Report Released Date/Time: May 20, 2023 01:26 PM Reporting Lab: [facility] [address] [facility] [address] Performing Lab: [address] [address] CREATININE, Serum 1.08 mg/dL 0.50-1.40 eGFR(CKD-EPI 2020) 72 mL/min >60 May 26, 2023 12:00 PM [facility] LIVER FUNCTION Specimen Type: SERUM No comment entered. Ordering Provider: CÉSAR JONES Report Released Date/Time: May 20, 2023 01:26 PM Reporting Lab: [address] [address] Performing Lab: [address] [address] PROTEIN,TOTAL 6.6 g/dL 6.0-8.3 ALBUMIN 3.4 g/dL L 3.5-5.0 ALKALINE PHOSPHATASE 67 U/L 40-150 AST 20 U/L 5-34 ALT 8 U/L BILIRUBIN, TOTAL 0.5 mg/dL 0.2-1.2 May 26, 2023 12:00 PM [facility] PT & INR (COUMADIN) Specimen Type: PLASMA No comment entered. Ordering Provider: CÉSAR JONES Report Released Date/Time: May 20, 2023 01:26 PM Reporting Lab: [address] [address] Performing Lab: [address] [address] INR 1.4 PROTIME 15.1 s H 10.0-13.1 Social History: Smoking Status (Most current) and Tobacco Use (All prior to encounter date) This section includes the most current, and the historical, smoking and tobacco- related health factors from the [place] facility where the Encounter took place. Current Smoking Status This section includes the most current smoking, or tobacco-related health factor, from the [place] facility where the Encounter took place. Date/Time Current Smoking Status Comment Raghu melchor Jan 19, 2023 12:24 PM VA-TOBACCO NEVER USED [facility] Tobacco Use History This section includes a history of the smoking, or tobacco-related health factors, that were collected on or before the date of the Encounter. The data comes from the [place] facility where the Encounter took place. Date/Time Smoking Status/Tobacco Use Comment F acility Jan 15, 2021 11:00 AM VA-TOBACCO NEVER USED [facility] Advance Directives: All historical and current Section Date Range: From patient's date of to the date document was created. This section includes ALL of a patient's completed or amended [place] Advance and Rescinded Directives. The entries below indicate that a directive exists for the patient, but an actual copy is not included with this document. The data comes from all [place] facilities. Date Advance Directives Provider Source Jan 20, 2021 ADVANCE DIRECTIVE [facility] Encounter Notes: All associated encounter notes This section contains the clinical notes associated to the Encounter. Date/Time Encounter Note(s) Provider Source May 31, 2023 03:45 PM [facility] NOTE: LOCAL TITLE: [facility] PHYSICAL THERAPY NOTE STANDARD TITLE: [facility] NOTE DATE OF NOTE: MAY 31, 2023@15:45 ENTRY DATE: JUN 02, 2023@11:17:24 AUTHOR: RAMIN MENDIETA EXP COSIGNER: URGENCY: STATUS: COMPLETED Coronavirus Disease [...] > 15 minutes). Result: Screen is negative. [facility] Physical Therapy Note Date: 05/31/23 Time: 3:45 pm Diagnosis: parkinsonism, unspecified Treatment Diagnosis: As above, plus Active problems - Computerized Problem List is the source for the followin. Long-term current use of anticoagulant 2. Gingivitis 3. Parkinsonism 4. Squamous cell carcinoma of skin 5. Basal cell carcinoma of skin 6. Hypotension 7. Benign prostatic hyperplasia 8. Hematuria 9. Diverticular disease of colon 10. Internal hemorrhoids 11. REM sleep behavior disorder 12. Peripheral vascular disease 13. Migraine 14. Solitary nodule of lung 15. Dupuytren's contracture 16. Multiple renal cysts 17. Atrial flutter 18. History of deep vein thrombosis 19. Memory loss 20. Sundowning 21. Urinary incontinence 22. Insomnia 23. Gastroesophageal reflux disease 24. AF- Atrial Fibrillation ([facility] [id number]) 25. Parkinson's Disease ([facility] [id number]) 26. Kidney Stone ([facility] [id number]) Patient identified by facial recognition and address SUBJECTIVE: no complaints OBJECTIVE: PAIN: Prior to treatment - none After treatment - none If > 3/10, intervention - If > 3/10, provider notified - VITAL SIGNS: 138/82 74 99% sitting at rest FALLS: patient denies any recent falls TREATMENT: Gait - ambulated 2 x 80 feet with rollator walker concentrating on heel strike and posture. Worked on sit to stand transfers with go forward weight shift Therex Counter Exercises Marching Hip abductions Hip extensions Heel raises Toe raises Sitting PNF D2 shoulder flexion with breathing OTHER: went over grab bar placement in shower with spouse ASSESSMENT: Patient is a 72 year old with parkinsonism unspecified who was moving well today with some minimal freezing during turns. Will continue to follow patient 1x/1-2 weeks to facilitate mobility. WHOLE HEALTH WHOLE HEALTH EDUCATION Whole Health Education was provided. Patient was verbally educated on following Home Safety - safe completion of home exercises Patient was verbally educated on following Durable Medical Equipment Safety - safe use of rollator walker Home Oxygen (yes/no) - no If yes, patient was verbally educated on following Oxygen Safety - COACHING SKILLS Coaching or Motivational Interviewing skills used. VISIT INFORMATION Met with individual: In-person Length of Visit: 30 minutes PLAN Individual agreed to follow-up: In-person visit Follow-up will occur: Dec 26,2023 /sharron/ RAMIN MENDIETA, PT, MS, ATP [facility] Physical Therapist Signed: 06/02/2023 11:47 RAMIN MENDIETA [facility]
--- OUTSIDE RECORDS SUMMARY | 2024-05-30 08:38 | XMS_ITS | Encounter Summary ---
Author Name [facility] [place] Organization [place] Address [address] [place] [address] Care Team Providers Care Chief Bank Examiner Name Role Phone HUSEYIN LUIS FERNANDO Primary [...] PRESCRIPT ION [id number] 1 Jun 20, 2017 [id number] [phone] EAMON OLIVIA ERT PATIENT MEDICARE (WNR) MEDICARE (M) PART A Jun 20, 2014 PART A [id number] [phone] EAMON OLIVIA ERT PATIENT MEDICARE (WNR) MEDICARE (M) PART B Jun 20, 2014 PART B [id number] [phone] EAMON OLIVIA ERT PATIENT MEDICARE (WNR) MEDICARE (M) PART A Jun 20, 2014 PART A [id number] EAMON OLIVIA ERT PATIENT MEDICARE (WNR) MEDICARE (M) PART B Jun 20, 2014 PART B [id number] EAMON OLIVIA ERT PATIENT OPTUM RX PRESCRIPT ION RX Jun 20, 2023 THPRX [id number] EAMON OLIVIA ERT PATIENT OPTUM RX PRESCRIPT ION RX Jun 20, 2022 THPRX [id number] EAMON OLIVIA ERT PATIENT OPTUM RX PRESCRIPT ION RX Jun 20, 2022 THPRX [id number] [phone] DAVON OLIVIA JR PATIENT [facility] Jun 20, 2017 [id number] EAMON OLIVIA ERT PATIENT [facility] Jun 20, 2017 [id number] DAVON OLIVIA JR PATIENT [facility] PLAN [facility] E Jun 20, 2017 [id number] DAVON OLIVIA JR PATIENT [facility] Jun 20, 2017 USP [id number] [phone] EAMON OLIVIA ERT PATIENT [facility] Jun 20, 2023 [id number] EAMON OLIVIA ERT PATIENT Selected Encounter This section includes the information on record at [place] for the Encounter. Date/Time Encounter Type Encounter Description Reason Pro vider Source May 30, 2023 03:22 PM Outpatient Encounter COMMUNITY CARE CONSULT IHE Encounter Template Text not used by [place] Plan of Treatment: Future Appointments (+ 6 months) and Future Tests (+/- 45 days) The Plan of Treatment section includes future care activities for the patient from all [place] treatmentfacilities. This section includes future appointments and future orders which are active, pending or scheduled. Future Appointments This section includes appointments that were scheduled to occur 6 months from the date of the Encounter, up to a maximum of 20 appointments. The data comes from all [place] treatment facilities. Appointment Date/Time Appointment Type Appointme nt Facility Name Jul 19, 2023 01:00 PM AMBULATORY - PS[place]CHIATRY [place] [facility] [place] [facility] Jul 19, 2023 01:00 PM [place] [facility] Oct 17, 2023 01:00 PM AMBULATORY - MEDICINE [place] [facility] [facility] Oct 17, 2023 01:15 PM [facility] [place] [facility] Lab Results: +/- 30 days of the encounter This section includes the Chemistry and Hematology Lab Results on record with [place] for the patient. Radiology Reports and Pathology Reports are provided separately, in subsequent sections. Lab Results This section contains the Chemistry/Hematology Results that were resulted 30 days before or 30 daysafter the date of the Encounter. Date/Time Source Result Type Result - Unit Interpretation Reference Range Comment May 26, 2023 12:00 PM [facility] FOLATE Specimen Type: SERUM No comment entered. Ordering Provider: CÉSAR JONES Report Released Date/Time: May 20, 2023 01:26 PM Reporting Lab: [facility]N [facility] [address] [facility] [address] Performing Lab: [facility]ITALN [facility] [address] [facility] [address] FOLATE 13.04 ng/mL >5.2 May 26, 2023 12:00 PM [facility]ITALN [facility] VITAMIN D (25-OH) Specimen Type: SERUM No comment entered. Ordering Provider: CÉSAR JONES Report Released Date/Time: May 20, 2023 01:26 PM Reporting Lab: [facility]ITALRRMC [facility]ITALTRN [facility] [address] [address] Performing Lab: [facility]ITALRR[facility]ITALTRN [facility] [address] [facility] [address] VITAMIN D (25-OH) 32 ng/mL 20-50 May 26, 2023 12:00 PM [facility] VITAMIN B12 Specimen Type: SERUM No comment entered. Ordering Provider: CÉSAR JONES Report Released Date/Time: May 20, 2023 01:26 PM Reporting Lab: [facility]ITALRR[facility]ITALTRN [facility] [address] [address] Performing Lab: [facility] [address] [address] VITAMIN B12 610 pg/mL 200-900 May 26, 2023 12:00 PM [facility] CBC Specimen Type: BLOOD No comment entered. Ordering Provider: CÉSAR JONES Report Released Date/Time: May 20, 2023 01:26 PM Reporting Lab: [facility] [address] [facility] [address] Performing Lab: [address] [address] WBC 7.69 10*3/uL 4.50-11.00 RBC 4.72 10*6/uL 4.23-5.66 HGB 14.0 g/dL 12.8-17 HCT 43.4 39.2-50.4 MCV 91.9 fL 82-99 MCHC 32.3 g/dL 30.8-35.1 PLT 296 10*3/uL 140-360 RDW-CV 12.4 12.0-16.0 MCH 29.7 pg 26.2-32.6 May 26, 2023 12:00 PM [facility] LIPID PANEL FASTING Specimen Type: SERUM No comment entered. Ordering Provider: CÉSAR JONES Report Released Date/Time: May 20, 2023 01:26 PM Reporting Lab: [address] [address] Performing Lab: [address] [address] CHOLESTEROL 204 mg/dL H TRIGLYCERIDE 67 mg/dL 0-150 LDL calculated 135 mg/dL H 0-129 CHOL/HDL 3.6 HDL CHOLESTEROL 56 mg/dL 40-60 May 26, 2023 12:00 PM [facility] BASIC METABOLIC PANEL (fasting) Specimen Type: SERUM No comment entered. Ordering Provider: CÉSAR JONES Report Released Date/Time: May 20, 2023 01:26 PM Reporting Lab: [address] [address] Performing Lab: [address] [address] UREA NITROGEN 17 mg/dL 7-25 GLUCOSE 89 mg/dL 65-100 SODIUM 139 mmol/L 135-145 POTASSIUM 3.5 mmol/L 3.5-5.0 CHLORIDE 99 mmol/L L 100-110 CO2 31 meq/L H 20-30 CREATININE, Serum 1.08 mg/dL 0.50-1.40 eGFR(CKD-EPI 2020) 72 mL/min >60 May 26, 2023 12:00 PM [facility] CALCIUM Specimen Type: SERUM No comment entered. Ordering Provider: CÉSAR JONES Report Released Date/Time: May 20, 2023 01:26 PM Reporting Lab: [facility] [address] [facility] [address] Performing Lab: [facility] [address] [facility] [address] CALCIUM 9.1 mg/dL 8.5-10.2 May 26, 2023 12:00 PM [facility] TSH Specimen Type: SERUM No comment entered. Ordering Provider: CÉSAR JONES Report Released Date/Time: May 20, 2023 01:26 PM Reporting Lab: [facility] [address] [facility] [address] Performing Lab: [facility] [address] [facility] [address] TSH 1.64 u[IU]/mL 0.35-5.00 May 26, 2023 12:00 PM [facility] HEMOGLOBIN A1C PANEL Specimen Type: BLOOD [...] May 20, 2023 01:26 PM Reporting Lab: [facility] [address] [facility] [address] Performing Lab: [address] [address] HEMOGLOBIN A1C 5.1 4.0-5.6 May 26, 2023 12:00 PM [facility]ITALRL TRN [facility] IRON & TIBC PANEL Specimen Type: SERUM No comment entered. Ordering Provider: CÉSAR JONES Report Released Date/Time: May 20, 2023 01:26 PM Reporting Lab: [facility] [place] [address] [address] Performing Lab: [place] [address] [address] TIBC 301 ug/dL 204-475 IRON 106 ug/dL 40-160 Transferrin Saturation 35.2 20.0-50.0 May 26, 2023 12:00 PM [facility]ITALR[facility] HOSPITALN [facility] MAGNESIUM Specimen Type: SERUM No comment entered. Ordering Provider: CÉSAR JONES Report Released Date/Time: May 20, 2023 01:26 PM Reporting Lab: [facility] [place] [place] [address] [address] Performing Lab: [facility]ITALRL TRN [facility] [address] [address] MAGNESIUM 2.0 mg/dL 1.6-2.6 May 26, 2023 12:00 PM [facility] FERRITIN Specimen Type: SERUM No comment entered. Ordering Provider: CÉSAR JONES Report Released Date/Time: May 20, 2023 01:26 PM Reporting Lab: [facility] [place] [place] [address] [address] Performing Lab: [facility]ITAL[facility] [place] [place] [address] [address] FERRITIN 95 ng/mL 20-300 May 26, 2023 12:00 PM [facility]ITALRNOR[facility] HOSPITALN [facility] CREATININE (eGFR 2020) Specimen Type: SERUM No comment entered. Ordering Provider: CÉSAR JONES Report Released Date/Time: May 20, 2023 01:26 PM Reporting Lab: [facility]ITAL[facility] [place] [address] [address] Performing Lab: [place] [facility] [address] [address] CREATININE, Serum 1.08 mg/dL 0.50-1.40 eGFR(CKD-EPI 2020) 72 mL/min >60 May 26, 2023 12:00 PM [facility] LIVER FUNCTION Specimen Type: SERUM No comment entered. Ordering Provider: CÉSAR JONES Report Released Date/Time: May 20, 2023 01:26 PM Reporting Lab: [address] [address] Performing Lab: [address] [address] PROTEIN,TOTAL 6.6 g/dL 6.0-8.3 ALBUMIN 3.4 g/dL L 3.5-5.0 ALKALINE PHOSPHATASE 67 U/L 40-150 AST 20 U/L 5-34 ALT 8 U/L BILIRUBIN, TOTAL 0.5 mg/dL 0.2-1.2 May 26, 2023 12:00 PM [facility] PT & INR (COUMADIN) Specimen Type: PLASMA No comment entered. Ordering Provider: CÉSAR JONES Report Released Date/Time: May 20, 2023 01:26 PM Reporting Lab: [address] [address] Performing Lab: [address] [address] INR 1.4 PROTIME 15.1 s H 10.0-13.1 Social History: Smoking Status (Most current) and Tobacco Use (All prior to encounter date) This section includes the most current, and the historical, smoking and tobacco- related health factors from the [place] facility where the Encounter took place. Current Smoking Status This section includes the most current smoking, or tobacco-related health factor, from the [place] facility where the Encounter took place. Date/Time Current Smoking Status Comment Facil ity Jan 19, 2023 12:24 PM VA-TOBACCO NEVER USED [facility] Tobacco Use History This section includes a history of the smoking, or tobacco-related health factors, that were collected on or before the date of the Encounter. The data comes from the [place] facility where the Encounter took place. Date/Time Smoking Status/Tobacco Use Comment F acility Jan 15, 2021 11:00 AM VA-TOBACCO NEVER USED [facility] Advance Directives: All historical and current Section Date Range: From patient's date of to the date document was created. This section includes ALL of a patient's completed or amended VA Advance and Rescinded Directives. The entries below indicate that a directive exists for the patient, but an actual copy is not included with this document. The data comes from all [place] facilities. Date Advance Directives Provider Source Jan 20, 2021 ADVANCE DIRECTIVE [place] ARAUZ [facility] Encounter Notes: All associated encounter notes This section contains the clinical notes associated to the Encounter. Date/Time Encounter Note(s) Provider Source May 30, 2023 03:22 PM NONVA NOTE: [facility] TITLE: [facility] PRESENTING CARE COORD PLAN STANDARD TITLE: NONVA NOTE DATE OF NOTE: MAY 30, 2023@15:22 ENTRY DATE: MAY 30, 2023@15:22:57 AUTHOR: AURORA SOL EXP COSIGNER: URGENCY: STATUS: COMPLETED Emergency Notification Intake Date Presenting to the Facility: Apr Method of Contact: Notified from ECR worklist Notification ID: [id number] [facility] Referral #: [facility] Name: Hospital: [facility] Address: City: [place] State: [place] Zip Code: Phone : [facility] Facility Point of Contact: Name: Nury Phone: Chief complaint: [id number] Primary Diagnosis: Disposition Discharged Date of discharge: Apr Discharge to Comment: ER Only /sharron/ AURORA SOLO Signed: 05/30/2023 15:24 Receipt Acknowledged By: 05/30/2023 15:26 /es/ KEMI JOHNSON,RN,CNL Sales Record Clerk [facility]
--- OUTSIDE RECORDS SUMMARY | 2024-05-30 08:38 | XMS_ITS | Encounter Summary ---
Author Name [place] Address [address] [place] [address] Care Team Providers Care Bean Viner Name Role Phone LUIS FERNANDO FONTANEZ Primary Care Provider Unavailabl e AMANDO OHARA Unavailable Unavailable RARAMIN KEYES Unavailable Unavailable SUNIL, KALYAN Unavailable Unavailable KAMILAH MALCOLM Unavailable Unavailable RGIO FENTON Unavailable Unavailable IMELDA, JENNIFER Unavailable Unavailable SAMUEL, AMARIS Unavailable Unavailable CANDICE JASMINE Unavailable Unavailable Insurance Providers: All historical and [...] PRESCRIPT ION [id number] 1 Jun 20, 2017 [id number] EAMON OLIVIA ERT PATIENT MEDICARE (WNR) MEDICARE (M) PART A Jun 20, 2014 PART A [id number] [phone] EAMON OLIVIA ERT PATIENT MEDICARE (WNR) MEDICARE (M) PART B Jun 20, 2014 PART B [id number] EAMON OLIVIA ERT PATIENT MEDICARE (WNR) MEDICARE (M) PART A Jun 20, 2014 PART A [id number] [phone] EAMON OLIVIA ERT PATIENT MEDICARE (WNR) MEDICARE (M) PART B Jun 20, 2014 PART B [id number] EAMON OLIVIA ERT PATIENT OPTUM RX PRESCRIPT ION RX Jun 20, 2023 THPRX [id number] EAMON OLIVIA ERT PATIENT OPTUM RX PRESCRIPT ION RX Jun 20, 2022 THPRX [id number] [phone] EAMON OLIVIA ERT PATIENT OPTUM RX PRESCRIPT ION RX Jun 20, 2022 THPRX [id number] [phone] DAVON OLIVIA JR PATIENT [facility] Jun 20, 2017 [id number] [phone] EAMON OLIVIA ERT PATIENT [facility] PLAN [facility] E Jun 20, 2017 [id number] [phone] DAVON OLIVIA JR PATIENT [facility] PLAN [facility] E Jun 20, 2017 [id number] [phone] DAVON OLIVIA JR PATIENT [facility] PLAN USP Jun 20, 2017 USP [id number] EAMON OLIVIA [facility]RT [facility] Jun 20, 2023 [id number] EAMON OLIVIA ERT PATIENT Selected Encounter This section includes the information on record at [place] for the Encounter. Date/Time Encounter Type Encounter Description Reason Provider Source Oct 17, 2023 01:06 PM ELECTROCARDIOGRAM REPORT EKG ICD-10-CM Z13.6 Encounter for screening for cardiovascular disorders JERZY PATEL [facility] Encounter Template Text not used by [place] Assessments - Encounter Diagnoses This section includes the primary and secondary diagnoses documented for the Encounter. Date/Time Primary/Secondary Diagnosis Diagnosis Name Provider Source Oct 18, 2023 08:06 AM PRIMARY Encounter for screening for cardiovascular disorders KATERINA CALLES [facility] Plan of Treatment: Future Appointments (+ [...] - MEDICINE [facility] [facility] Jan 04, 2024 01:00 PM [...] - MEDICINE [facility] [facility] Mar 22, 2024 01:00 PM AMBULATORY - NONE [facility] [place] [facility] Mar 27, 2024 02:30 PM AMBULATORY - MEDICINE [facility] [place] [facility] Mar 29, 2024 11:00 AM AMBULATORY - REHAB MEDICIN E [facility] [place] [facility] Apr 12, 2024 11:00 AM AMBULATORY - REHAB MEDICIN E [facility] [facility] Lab Results: +/- 30 days [...] Range Comment Oct 10, 2023 02:00 PM [place] [facility] [place] [facility] FOLATE (WROX) Specimen Type: SERUM No comment entered. Ordering Provider: LUIS FERNANDO FONTANEZ Report Released Date/Time: Oct 10, 2023 08:28 AM Reporting Lab: [facility] [place] [facility] [address] [facility] [address] Performing Lab: [facility]ENTERUSEIRA [facility] [address] [facility] [address] FOLATE (WROX) 13.68 ng/mL >5.2 Oct 10, 2023 02:00 PM [facility] LIVER FUNCTION Specimen Type: SERUM No comment entered. Ordering Provider: LUIS FERNANDO FONTANEZ Report Released Date/Time: Oct 10, 2023 08:28 AM Reporting Lab: [facility] [address] [facility] [address] Performing Lab: [facility] [address] [facility] [address] PROTEIN,TOTAL 7.0 g/dL 6.0-8.3 ALBUMIN 3.6 g/dL 3.5-5.0 ALKALINE PHOSPHATASE 77 U/L 40-150 AST 21 U/L 5-34 ALT 14 U/L BILIRUBIN, TOTAL 0.4 mg/dL 0.2-1.2 Oct 10, 2023 02:00 PM [facility] LIPID PANEL, NON FASTING Specimen Type: SERUM No comment entered. Ordering Provider: LUIS FERNANDO FONTANEZ Report Released Date/Time: Oct 10, 2023 08:28 AM Reporting Lab: [facility] [address] [facility] [address] Performing Lab: [facility] [address] [facility] [address] CHOLESTEROL 210 mg/dL H TRIGLYCERIDE 84 mg/dL 0-150 LDL calculated 133 mg/dL H 0-129 CHOL/HDL 3.5 HDL CHOLESTEROL 60 mg/dL 40-60 Oct 10, 2023 02:00 PM [facility] VITAMIN D (25-OH) Specimen Type: SERUM No comment entered. Ordering Provider: LUIS FERNANDO FONTANEZ Report Released Date/Time: Oct 10, 2023 08:28 AM Reporting Lab: [facility] [address] [facility] [address] Performing Lab: [address] [address] VITAMIN D (25-OH) 38 ng/mL 20-50 Oct 10, 2023 02:00 PM [facility] VITAMIN B12 Specimen Type: SERUM No comment entered. Ordering Provider: LUIS FERNANDO FONTANEZ Report Released Date/Time: Oct 10, 2023 08:28 AM Reporting Lab: [facility] [place] [facility] [address] [facility] [address] Performing Lab: [facility] [place] [facility] [address] [facility] [address] VITAMIN B12 767 pg/mL 200-900 Oct 10, 2023 02:00 PM [facility] TSH Specimen Type: SERUM No comment entered. Ordering Provider: LUIS FERNANDO FONTANEZ Report Released Date/Time: Oct 10, 2023 08:28 AM Reporting Lab: [facility] [facility] [address] [facility] [facility] [address] Performing Lab: [place] [address] [address] TSH 2.22 u[IU]/mL 0.35-5.00 Oct 10, 2023 02:00 PM [facility]ETS [facility] HEMOGLOBIN A1C PANEL Specimen Type: [...] 08:28 AM Reporting Lab: [facility] [place] [facility] [address] [facility] [address] Performing Lab: [facility] [place] [place] [address] [address] HEMOGLOBIN A1C 5.3 4.0-5.6 Oct 10, 2023 02:00 PM [facility]RL [facility]N [facility]USETS [facility] FERRITIN Specimen Type: SERUM No comment entered. Ordering Provider: LUIS FERNANDO FONTANEZ Report Released Date/Time: Oct 10, 2023 08:28 AM Reporting Lab: [place] [facility] [place] [address] [address] Performing Lab: [facility]ENTERUSETS [address] [address] FERRITIN 106 ng/mL 20-300 Oct 10, 2023 02:00 PM [facility] IRON & TIBC PANEL Specimen Type: SERUM No comment entered. Ordering Provider: LUIS FERNANDO FONTANEZ Report Released Date/Time: Oct 10, 2023 08:28 AM Reporting Lab: [facility] [address] [facility] [facility] [address] Performing Lab: [address] [address] TIBC 330 ug/dL 204-475 IRON 102 ug/dL 40-160 Transferrin Saturation 30.9 20.0-50.0 Oct 10, 2023 02:00 PM [facility] CBC AND DIFF (AUTO) Specimen Type: BLOOD No comment entered. Ordering Provider: LUIS FERNANDO FONTANEZ Report Released Date/Time: Oct 10, 2023 08:28 AM Reporting Lab: [address] [address] Performing Lab: [address] [address] WBC 7.10 10*3/uL 4.50-11.00 RBC 5.13 10*6/uL 4.23-5.66 HGB 15.1 g/dL 12.8-17 HCT 45.5 39.2-50.4 MCV 88.7 fL 82-99 MCHC 33.2 g/dL 30.8-35.1 PLT 281 10*3/uL 140-360 RDW-CV 12.9 12.0-16.0 [place], Abs 0.67 10*3/uL 0.30-1.10 MCH 29.4 pg 26.2-32.6 Neut % 61.3 43.7-75.8 Lymph % 27.3 14.0-42.3 [place] % 9.4 5.1-13.7 Eos % 1.3 0.4-6.8 Baso % 0.4 0.1-2.0 Neut, Abs 4.35 10*3/uL 2.20-7.60 Lymph, Abs 1.94 10*3/uL 1.00-3.20 Eos, Abs 0.09 10*3/uL 0.03-0.44 Baso, Abs 0.03 10*3/uL 0.01-0.13 Immature Gran % 0.3 0.0-0.7 Immature Gran, Abs 0.02 10*3/uL 0.00-0.06 Oct 10, 2023 02:00 PM [facility] BASIC METABOLIC PANEL (non-fasting) Specimen Type: SERUM No comment entered. Ordering Provider: LUIS FERNANDO FONTANEZ Report Released Date/Time: Oct 10, 2023 08:28 AM Reporting Lab: [facility] [address] [facility] [facility] [address] Performing Lab: [facility] [address] [facility] [address] UREA NITROGEN 16 mg/dL 7-25 GLUCOSE 82 [...] Jan 20, 2021 ADVANCE DIRECTIVE BENT[place] ARAUZ [facility] Encounter Notes: All associated encounter notes This section contains the clinical notes associated to the Encounter. Date/Time Encounter Note(s) Provider Source Oct 18, 2023 08:05 AM CARDIOLOGY PROCEDU RE NOTE: LOCAL TITLE: EKG OUTPATIENT RESULT STANDARD TITLE: CARDIOLOGY PROCEDURE NOTE DATE OF NOTE: OCT 18, 2023@08:05 ENTRY DATE: OCT 18, 2023@08:05:42 AUTHOR: KATERINA CALLES EXP COSIGNER: URGENCY: STATUS: COMPLETED An EKG was done on: Sep Please see [facility] for the EKG result. /sharron/ KATERINA CALLES TAX DIRECTOR Signed: 10/18/2023 08:07 KATERINA CALLES [facility]
--- OUTSIDE RECORDS SUMMARY | 2024-05-30 08:38 | XMS_ITS | Encounter Summary ---
Author Name Department [place] Organization [facility] [place] Address [address] [place] [address] Care Team Providers Care Preprint Analyst Name Role Phone LUIS FERNANDO FONTANEZ Primary Care Provider Unavailabl e AMANDO OHARA Unavailable Unavailable RARAMIN KEYES Unavailable Unavailable FEISHILA, KALYAN Unavailable Unavailable GOLD, DAMANIVAL Unavailable Unavailable RIGO FENTON Unavailable Unavailable RISING, JENNIFER Unavailable Unavailable SAMUEL, MAARIS Unavailable Unavailable MITALI, CANDICE Unavailable Unavailable Insurance [...] ALT ION [id number] 1 Jun 20, 2017 [id number] [phone] EAMON OLIVIA ERT PATIENT MEDICARE (WNR) MEDICARE (M) PART A Jun 20, 2014 PART A [id number] [phone] EAMON OLIVIA ERT PATIENT MEDICARE (WNR) MEDICARE (M) PART B Jun 20, 2014 PART B [id number] EAMON OLIVIA ERT PATIENT MEDICARE (WNR) MEDICARE (M) PART A Jun 20, 2014 PART A [id number] EAMON OLIVIA ERT PATIENT MEDICARE (WNR) MEDICARE (M) PART B Jun 20, 2014 PART B [id number] EAMON OLIVIA ERT PATIENT OPTUM RX PRESCRIPT ION RX Jun 20, 2023 THPRX [id number] EAMNO OLIVIA ERT PATIENT OPTUM RX PRESCRIPT ION RX Jun 20, 2022 THPRX [id number] EAMON OLIVIA ERT PATIENT OPTUM RX PRESCRIPT ION RX Jun 20, 2022 THPRX [id number] DAVON OLIVIA JR PATIENT [facility] TON MAR Jun 20, 2017 [id number] EAMON OLIVIA ERT PATIENT [facility] T[facility] E Jun 20, 2017 [id number] DAVON OLIVIA JR PATIENT [facility] E Jun 20, 2017 [id number] DAVON OLIVIA JR PATIENT [facility] USP Jun 20, 2017 USP [id number] EAMON OLIVIA ERT PATIENT [facility] Jun 20, 2023 [id number] EAMON OLIVIA ERT PATIENT Selected Encounter This section includes the information on record at [place] for the Encounter. Date/Time Encounter Type Encounter Description Reason Pro vider Source Jun 01, 2023 12:22 PM Outpatient Encounter ADMIN PAT ACTIVTIES (MASNONCT) IHE Encounter Template Text not used by [place] Plan of Treatment: Future Appointments (+ 6 months) and Future Tests (+/- 45 days) The Plan of Treatment section includes future care activities for the patient from all [place] treatmentfacilities. This section includes future appointments and future orders which are active, pending or scheduled. Future Appointments This section includes appointments that were scheduled to occur 6 months from the date of the Encounter, up to a maximum of 20 appointments. The data comes from all [place] treatment facilities. Appointment Date/Time Appointment Type Appointme nt Facility Name Jul 19, 2023 01:00 PM AMBULATORY - [place]IATRY [facility] [place] [facility] Jul 19, 2023 01:00 PM [facility] Oct 17, 2023 01:00 PM AMBULATORY - MEDICINE [place] [facility] [place] [facility] Oct 17, 2023 01:15 PM AMBULATORY - MEDICINE [place] [facility] [facility] Lab Results: +/- 30 days of the encounter This section includes the Chemistry and Hematology Lab Results on record with [place] for the patient. Radiology Reports and Pathology Reports are provided separately, in subsequent sections. Lab Results This section contains the Chemistry/Hematology Results that were resulted 30 days before or 30 daysafter the date of the Encounter. Date/Time Source Result Type Result - Unit Interpretation Reference Range Comment May 26, 2023 12:00 PM [place] [facility] [facility] FOLATE Specimen Type: SERUM No comment entered. Ordering Provider: CÉSAR JONES Report Released Date/Time: May 20, 2023 01:26 PM Reporting [facility] [address] [facility] [address] Performing Lab: [facility] [address] [facility] [address] FOLATE 13.04 ng/mL >5.2 May 26, 2023 12:00 PM [facility] VITAMIN D (25-OH) Specimen Type: SERUM No comment entered. Ordering Provider: CÉSAR JONES Report Released Date/Time: May 20, 2023 01:26 PM Reporting Lab: [facility] [place] [facility] [address] [facility] [address] Performing Lab: [facility] [address] [facility] [address] VITAMIN D (25-OH) 32 ng/mL 20-50 May 26, 2023 12:00 PM [facility] VITAMIN B12 Specimen Type: SERUM No comment entered. Ordering Provider: CÉSAR JONES Report Released Date/Time: May 20, 2023 01:26 PM Reporting Lab: [facility] [address] [facility] [address] Performing Lab: [facility] [address] [address] VITAMIN B12 610 pg/mL 200-900 May 26, 2023 12:00 PM [facility] CBC Specimen Type: BLOOD No comment entered. Ordering Provider: CÉSAR JONES Report Released Date/Time: May 20, 2023 01:26 PM Reporting Lab: [address] [address] Performing Lab: [address] [address] WBC 7.69 10*3/uL 4.50-11.00 RBC 4.72 10*6/uL 4.23-5.66 HGB 14.0 g/dL 12.8-17 HCT 43.4 39.2-50.4 MCV 91.9 fL 82-99 MCHC 32.3 g/dL 30.8-35.1 PLT 296 10*3/uL 140-360 RDW-CV 12.4 12.0-16.0 MCH 29.7 pg 26.2-32.6 May 26, 2023 12:00 PM [facility] BASIC METABOLIC PANEL (fasting) Specimen Type: SERUM No comment entered. Ordering Provider: CÉSAR JONES Report Released Date/Time: May 20, 2023 01:26 PM Reporting Lab: [address] [address] Performing Lab: [address] [address] UREA NITROGEN 17 mg/dL 7-25 GLUCOSE 89 mg/dL 65-100 SODIUM 139 mmol/L 135-145 POTASSIUM 3.5 mmol/L 3.5-5.0 CHLORIDE 99 mmol/L L 100-110 CO2 31 meq/L H 20-30 CREATININE, Serum 1.08 mg/dL 0.50-1.40 eGFR(CKD-EPI 2020) 72 mL/min >60 May 26, 2023 12:00 PM [facility] LIPID PANEL FASTING Specimen Type: SERUM No comment entered. Ordering Provider: CÉSAR JONES Report Released Date/Time: May 20, 2023 01:26 PM Reporting Lab: [facility] [place] [facility] [address] [facility] [address] Performing [facility]: [facility] [place] [facility] [address] [facility] [address] CHOLESTEROL 204 mg/dL H TRIGLYCERIDE 67 mg/dL 0-150 LDL calculated 135 mg/dL H 0-129 CHOL/HDL 3.6 HDL CHOLESTEROL 56 mg/dL 40-60 May 26, 2023 12:00 PM [facility] CALCIUM Specimen Type: SERUM No comment entered. Ordering Provider: CÉSAR JONES Report Released Date/Time: May 20, 2023 01:26 PM Reporting Lab: [facility] [place] [facility] [address] [facility] [address] Performing Lab: [facility] [address] CALCIUM 9.1 mg/dL 8.5-10.2 May 26, 2023 12:00 PM [facility] TSH Specimen Type: SERUM No comment entered. Ordering Provider: CÉSAR JONES Report Released Date/Time: May 20, 2023 01:26 PM Reporting Lab: [facility] [address] [address] Performing Lab: [facility] [address] [address] TSH 1.64 u[IU]/mL 0.35-5.00 May 26, 2023 12:00 PM [facility] HEMOGLOBIN A1C PANEL Specimen Type: BLOOD [...] 2023 01:26 PM Reporting Lab: [facility] [address] [address] Performing Lab: [facility] [address] [facility] [address] HEMOGLOBIN A1C 5.1 4.0-5.6 May 26, 2023 12:00 PM [facility] IRON & TIBC PANEL Specimen Type: SERUM No comment entered. Ordering Provider: CÉSAR JONES Report Released Date/Time: May 20, 2023 01:26 PM Reporting Lab: [facility] [address] [facility] [address] Performing Lab: [facility]ITALRL TRN [facility] [address] [facility] [address] TIBC 301 ug/dL 204-475 IRON 106 ug/dL 40-160 Transferrin Saturation 35.2 20.0-50.0 May 26, 2023 12:00 PM [facility] FERRITIN Specimen Type: SERUM No comment entered. Ordering Provider: CÉSAR JONES Report Released Date/Time: May 20, 2023 01:26 PM Reporting Lab: [facility]ITAL[facility]N [facility] [address] [address] Performing Lab: [facility] [address] [address] FERRITIN 95 ng/mL 20-300 May 26, 2023 12:00 PM [facility] MAGNESIUM Specimen Type: SERUM No comment entered. Ordering Provider: CÉSAR JONES Report Released Date/Time: May 20, 2023 01:26 PM Reporting Lab: [facility] [address] [address] Performing Lab: [facility]ITALRW[facility]ITALN [facility] [address] [address] MAGNESIUM 2.0 mg/dL 1.6-2.6 May 26, 2023 12:00 PM [facility] CREATININE (eGFR 2020) Specimen Type: SERUM No comment entered. Ordering Provider: CÉSAR JONES Report Released Date/Time: May 20, 2023 01:26 PM Reporting Lab: [facility] [address] [address] Performing Lab: [facility] [address] [facility] [address] CREATININE, Serum 1.08 mg/dL 0.50-1.40 eGFR(CKD-EPI 2020) 72 mL/min >60 May 26, 2023 12:00 PM [facility] LIVER FUNCTION Specimen Type: SERUM No comment entered. Ordering Provider: CÉSAR JONES Report Released Date/Time: May 20, 2023 01:26 PM Reporting Lab: [facility] [address] [facility] [address] Performing Lab: [address] [address] PROTEIN,TOTAL 6.6 g/dL 6.0-8.3 ALBUMIN 3.4 g/dL L 3.5-5.0 ALKALINE PHOSPHATASE 67 U/L 40-150 AST 20 U/L 5-34 ALT 8 U/L BILIRUBIN, TOTAL 0.5 mg/dL 0.2-1.2 May 26, 2023 12:00 PM [facility] PT & INR (COUMADIN) Specimen Type: PLASMA No comment entered. Ordering Provider: CÉSAR JONES Report Released Date/Time: May 20, 2023 01:26 PM Reporting Lab: [address] [address] Performing Lab: [address] [address] INR 1.4 PROTIME 15.1 s H 10.0-13.1 Social History: Smoking Status (Most current) and Tobacco Use (All prior to encounter date) This section includes the most current, and the historical, smoking and tobacco- related health factors from the [place] facility where the Encounter took place. Current Smoking Status This section includes the most current smoking, or tobacco-related health factor, from the [place] facility where the Encounter took place. Date/Time Current Smoking Status Comment Facil jill Jan 19, 2023 12:24 PM VA-TOBACCO NEVER USED [facility] Tobacco Use History This section includes a history of the smoking, or tobacco-related health factors, that were collected on or before the date of the Encounter. The data comes from the [place] facility where the Encounter took place. Date/Time Smoking Status/Tobacco Use Comment F acility Jan 15, 2021 11:00 AM VA-TOBACCO NEVER USED [facility] Advance Directives: All historical and current Section Date Range: From patient's date of to the date document was created. This section includes ALL of a patient's completed or amended [place] Advance and Rescinded Directives. The entries below indicate that a directive exists for the patient, but an actual copy is not included with this document. The data comes from all [place] facilities. Date Advance Directives Provider Source Jan 20, 2021 ADVANCE DIRECTIVE [facility] ARAUZ [facility] [employer] Encounter Notes: All associated encounter notes This section contains the clinical notes associated to the Encounter. Date/Time Encounter Note(s) Provider Source Jun 01, 2023 12:22 PM CAREGIVER CERTIFIC ATE: LOCAL TITLE: CSP APPROVAL NOTE STANDARD TITLE: CAREGIVER CERTIFICATE DATE OF NOTE: JUN 01, 2023@12:22 ENTRY DATE: JUN 01, 2023@12:22:44 AUTHOR: FANNY MORGAN COSIGNER: URGENCY: STATUS: COMPLETED Caregiver Support Program Approval Note Approval Date: 05/31/2023 Approved for the Program of General Caregiver Support Services. The person being approved is the [place]. Name of Caregiver: Tory Olivia Information on the benefits and services of the Program of General Caregiver Support Services were provided to the General Caregiver. Notice of Privacy Practices /es/ FANNY MORGAN EXERCISE PLANNER,PGCSS Signed: 06/01/2023 12:23 FANNY MORGAN [facility]
--- OUTSIDE RECORDS SUMMARY | 2024-05-30 08:39 | XMS_ITS | Encounter Summary ---
Author Name Department of Veter[place] Organization [facility] [place] Address [address] [place] [address] Care Team Providers Care Adoption Manager Name Role Phone HUSEYIN LUIS FERNANDO Primary [...] PRESCRIPT ION [id number] 1 Jun 20, 2017 [id number] EAMON OLIVIA ERT PATIENT MEDICARE (WNR) MEDICARE (M) PART A Jun 20, 2014 PART A [id number] [phone] EAMON OLIVIA ERT PATIENT MEDICARE (WNR) MEDICARE (M) PART B Jun 20, 2014 PART B [id number] EAMON OLIVIA ERT PATIENT MEDICARE (WNR) MEDICARE (M) PART A Jun 20, 2014 PART A [id number] EAMON OLIVIA ERT PATIENT MEDICARE (WNR) MEDICARE (M) PART B Jun 20, 2014 PART B [id number] EAMON OLIVIA ERT PATIENT OPTUM RX PRESCRIPT ION RX Jun 20, 2023 THPRX [id number] [phone] EAMON OLIVIA ERT PATIENT OPTUM RX PRESCRIPT ION RX Jun 20, 2022 THPRX [id number] EAMON OLIVIA ERT PATIENT OPTUM RX PRESCRIPT ION RX Jun 20, 2022 THPRX [id number] DAVON OLIVIA JR PATIENT [facility] Jun 20, 2017 [id number] EAMON OLIVIA ERT PATIENT [facility] T[facility] E Jun 20, 2017 [id number] DAVON OLIVIA JR PATIENT [facility] E Jun 20, 2017 [id number] DAVON OLIVIA JR PATIENT [facility] USP Jun 20, 2017 USP [id number] EAMON OLIVIA ERT [facility] Jun 20, 2023 [id number] EAMON OLIVIA ERT PATIENT Selected Encounter This section includes the information on record at [place] for the Encounter. Date/Time Encounter Type Encounter Description Reason Pro vider Source Jul 22, 2023 01:03 PM Outpatient Encounter TELEPHONE [facility] Encounter Template Text not used by [place] Plan of Treatment: Future Appointments (+ 6 months) and Future Tests (+/- 45 days) The Plan of Treatment section includes future care activities for the patient from all [place] treatmentfacilities. This section includes future appointments and future orders which are active, pending or scheduled. Future Appointments This section includes appointments that were scheduled to occur 6 months from the date of the Encounter, up to a maximum of 20 appointments. The data comes from all [place] treatment facilities. Appointment Date/Time Appointment Type Appointme nt Facility Name Oct 17, 2023 01:00 PM AMBULATORY - MEDICINE [place] [facility] Oct 17, 2023 01:15 PM AMBULATORY - MEDICINE [facility] C [facility]L [facility] Dec 26, 2023 11:00 AM [facility] Jan 04, 2024 01:00 PM AMBULATORY - NONE [facility] Social History: Smoking Status (Most current) and Tobacco Use (All prior to encounter date) This section includes the most current, and the historical, smoking and tobacco- related health factors from the [place] facility where the Encounter took place. Current Smoking Status This section includes the most current smoking, or tobacco-related health factor, from the [place] facility where the Encounter took place. Date/Time Current Smoking Status Comment Facil ity Jan 19, 2023 12:24 PM VA-TOBACCO NEVER USED [facility] Tobacco Use History This section includes a history of the smoking, or tobacco-related health factors, that were collected on or before the date of the Encounter. The data comes from the [place] facility where the Encounter took place. Date/Time Smoking Status/Tobacco Use Comment F acility Jan 15, 2021 11:00 AM VA-TOBACCO NEVER USED [facility] Advance Directives: All historical and current Section Date Range: From patient's date of to the date document was created. This section includes ALL of a patient's completed or amended [place] Advance and Rescinded Directives. The entries below indicate that a directive exists for the patient, but an actual copy is not included with this document. The data comes from all [place] facilities. Date Advance Directives Provider Source Jan 20, 2021 ADVANCE DIRECTIVE [facility] ARAUZ [facility] Encounter Notes: All associated encounter notes This section contains the clinical notes associated to the Encounter. Date/Time Encounter Note(s) Provider Source Jul 22, 2023 01:03 PM [facility] NOTE: LOCAL TITLE: [facility] TELEPHONE NOTE STANDARD TITLE: [facility] NOTE DATE OF NOTE: JUL 22, 2023@13:03 ENTRY DATE: JUL 22, 2023@13:03:39 AUTHOR: JENNIFER SEGURA COSIGNER: URGENCY: STATUS: COMPLETED Duration of call: 3 Minutes RNCM called spouse to reschedule home visit to 08/02/23. RNCM unexpectedly needed 07/25/23 off. Spouse agreed. Calendar updated. /sharron/ JENNIFER SEGURA CUSTOMER SUPPORT CONSULTANT [facility] B2B SALES CONSULTANT Signed: 07/22/2023 13:06 JENNIFER SEGURA [facility]
--- OUTSIDE RECORDS SUMMARY | 2024-05-30 08:39 | XMS_ITS | Encounter Summary ---
Author Name Department [place] Organization [facility] Address [address] [place] [address] Care Team Providers Care Circus Train Supervisor Name Role Phone LUIS FERNANDO FONTANEZ Primary [...] ALT ION [id number] 1 Jun 20, 2017 [id number] EAMON OLIVIA ERT PATIENT MEDICARE (WNR) MEDICARE (M) PART A Jun 20, 2014 PART A [id number] EAMON OLIVIA ERT PATIENT MEDICARE (WNR) MEDICARE (M) PART B Jun 20, 2014 PART B [id number] EAMON OLIVIA ERT PATIENT MEDICARE (WNR) MEDICARE (M) PART A Jun 20, 2014 PART A [id number] [phone] EAMON OLIVIA ERT PATIENT MEDICARE (WNR) MEDICARE (M) PART B Jun 20, 2014 PART B [id number] EAMON OLIVIA ERT PATIENT OPTUM RX PRESCRIPT ION RX Jun 20, 2023 THPRX [id number] [phone] EAMON OLIVIA ERT PATIENT OPTUM RX PRESCRIPT ION RX Jun 20, 2022 THPRX [id number] EAMON OLIVIA ERT PATIENT OPTUM RX PRESCRIPT ION RX Jun 20, 2022 THPRX [id number] [phone] DAVON OLIVIA JR PATIENT [facility] Jun 20, 2017 [id number] EAMON OLIVIA ERT PATIENT [facility] T[facility] E Jun 20, 2017 [id number] DAVON OLIVIA JR PATIENT [facility] PE[facility] E Jun 20, 2017 [id number] [phone] DAVON OLIVIA JR PATIENT [facility] USP Jun 20, 2017 USP [id number] EAMON OLIVIA ERT PATIENT [facility] Jun 20, 2023 [id number] EAMON OLIVIA ERT PATIENT Selected Encounter This section includes the information on record at [place] for the Encounter. Date/Time Encounter Type Encounter Description Reason Pro vider Source Jul 19, 2023 01:00 PM Outpatient Encounter ADMIN PAT ACTIVTIES (MASNONCT) IHE Encounter Template Text not used by [place] Plan of Treatment: Future Appointments (+ 6 months) and Future Tests (+/- 45 days) The Plan of Treatment section includes future care activities for the patient from all [place] treatmentfacilities. This section includes future appointments and future orders which are active, pending or scheduled. Future Appointments This section includes appointments that were scheduled to occur 6 months from the date of the Encounter, up to a maximum of 20 appointments. The data comes from all [place] treatment facilities. Appointment Date/Time Appointment Type Appointme nt Facility Name Oct 17, 2023 01:00 PM AMBULATORY - [place]ICINE [place] [facility] Oct 17, 2023 01:15 PM AM[place]UL[place]ORY [place]ICINE [place] [facility] Dec 26, 2023 11:00 AM [facility] [place] [facility] Jan 04, 2024 01:00 PM AMBULATORY - NONE [facility] Social History: Smoking Status (Most current) and Tobacco Use (All prior to encounter date) This section includes the most current, and the historical, smoking and tobacco- related health factors from the [place] facility where the Encounter took place. Current Smoking Status This section includes the most current smoking, or tobacco-related health factor, from the [place] facility where the Encounter took place. Date/Time Current Smoking Status Comment Facil ity Jan 19, 2023 12:24 PM VA-TOBACCO NEVER USED [facility] Tobacco Use History This section includes a history of the smoking, or tobacco-related health factors, that were collected on or before the date of the Encounter. The data comes from the [place] facility where the Encounter took place. Date/Time Smoking Status/Tobacco Use Comment F acility Jan 15, 2021 11:00 AM VA-TOBACCO NEVER USED [facility] Advance Directives: All historical and current Section Date Range: From patient's date of to the date document was created. This section includes ALL of a patient's completed or amended [place] Advance and Rescinded Directives. The entries below indicate that a directive exists for the patient, but an actual copy is not included with this document. The data comes from all [place] facilities. Date Advance Directives Provider Source Jan 20, 2021 ADVANCE DIRECTIVE BENTON ARAUZ [facility] Encounter Notes: All associated encounter notes This section contains the clinical notes associated to the Encounter. Date/Time Encounter Note(s) Provider Source Jul 19, 2023 08:33 AM PSYCHIATRY INITIAL EVALUATION NOTE: LOCAL TITLE: [facility] GERIATRIC PSYCHIATRY EVALUATION STANDARD TITLE: PSYCHIATRY INITIAL EVALUATION NOTE DATE OF NOTE: JUL 19, 2023@08:33 ENTRY DATE: JUL 19, 2023@08:33:12 AUTHOR: ANDREA BARRERA EXP COSIGNER: URGENCY: STATUS: COMPLETED [facility] GERIATRIC PSYCHIATRY EVALUATION Has ADDENDA Mr. Olivia was seen and evaluated during a 60 minute intake interview by Dr. Andrea Barrera. was provided with the purpose of the assessment and verbally consented to receive services via [facility]. The limits of confidentiality were reviewed and discussed, as were considerations relevant to telehealth interventions, including emergency protocols. At least 2 of the following patient identifiers were used: Full Name, SS#, Before completing this consultation, I reviewed the following sources of data: [x] Other staff intake forms and vital signs [x] [facility] records [x] VA laboratory test results and most recent EKG [x] Other (specify, include discussion with staff who know patient) GERIATRIC PSYCHIATRY CONSULTATION NOTE CONSULT QUESTION: [place] with Parkinson's and dementia, with behavioral changes including anxiety and insomnia, would benefit from cesar-psych eval and recommendations CHIEF COMPLAINT: get baseline HPI: 73 yo with known parkinsons and dementia, concerns for behavioral issues, anxiety, insomnia. current meds include memantine 10 bid, melatonin 20 mg, hydroxyzine 10 mg qhs prn, rasagiline 1 mg daily, c-l dopa, and ativan 0.5 mg daily prn. to [facility]. has community neurologist Dr. Donahue. On visit, pt with [facility], who provides most of history as pt not able/willing to offer much. states they are looking for a psychiatric baseline- pt has a neurologist who manages the memory and sleep meds. has recently dec'd the melatonin to 15 mg, which is improving pts sleep. he still sleeps a lot however-- midnight to 7 am, then 8 am - noon, then 5-8 pm. she can't keep him awake in day because he'll get irritable. only one time has he been physically agitated with paranoia and trying to hit her. In terms of mood, pt denies feeling depressed or anxious at this time. no SI. he likes watching tv, but because of parkinsons, has had to give up his previous hobbies. his appetite is good. he is limited to house, and is dependent on his . no manic sxs. one time had a visual halluc of someone in the room but has not happened since. he does not use etoh, smoke, or use any other substances. GERIATRIC REVIEW OF SYSTEMS Hearing:+ Vision :+ Bowel fct:+ Bladder fct:+ Behavior problems:above Falls in prior 12 months:yes-feb 2023 Assistive device used:walker Difficulty chewing or swallowing food:- FUNCTIONING ADLs: dependent IADLs:dependent PAST PSYCHIATRIC HISTORY: none formally. pcp had rx'd meds early ? for possible depression or anxiety. might've seen a therapist once for same but they have no recall of details. might've not done a deployment because of anxiety. 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 deployment to [employer] but denies ptsd. was [employer] and [employer]. FAMILY PSYCH HISTORY: mo schizophrenaiia, 2 siblings schizophrenia, 1 sibling suicide attempt MEDICATIONS: Active Outpatient Medications (including Supplies): Active Outpatient Medications Status 1) APIXABAN 5MG TAB TAKE ONE TABLET BY MOUTH EVERY 12 ACTIVE (S) HOURS FOR ATRIAL FIBRILLATION 2) CARBIDOPA 25/LEVODOPA 100MG SA TAB TAKE 1 TABLET BY ACTIVE (S) MOUTH THREE TIMES A DAY FOR PARKINSON SYMPTOMS 3) CARBIDOPA 25/LEVODOPA 100MG TAB TAKE 1 TABLET BY ACTIVE (S) MOUTH FOUR TIMES A DAY 4) CHLORHEXIDINE GLUCONATE 0.12% MOUTHWASH RINSE 15ML BY ACTIVE MOUTH ONCE DAILY FOR INFLAMMATION OF THE GUMS - SWISH AND SPIT. DO NOT SWALLOW 5) CHOLECALCIF 25MCG (D3-1,000UNIT) TAB TAKE ONE TABLET ACTIVE (S) BY MOUTH ONCE DAILY FOR VITAMIN SUPPLEMENTATION 6) FAMOTIDINE 20MG TAB TAKE ONE TABLET BY MOUTH ONCE ACTIVE (S) DAILY FOR STOMACH ACID 7) HYDROCHLOROTHIAZIDE 25MG TAB TAKE ONE TABLET BY MOUTH ACTIVE (S) ONCE DAILY FOR HIGH BLOOD PRESSURE 8) HYDROPHILIC (EQV EUCERIN) TOP CREAM APPLY A LIBERAL ACTIVE (S) AMOUNT TOPICALLY ONCE DAILY FOR DRY SKIN 9) HYDROXYZINE HCL 10MG TAB TAKE ONE TABLET BY MOUTH AT ACTIVE (S) BEDTIME NEEDED FOR ANXIETY 10) INCONTINENCE WRAP,MALE USE 1 INCONTINENCE WRAP ACTIVE TOPICALLY AT BEDTIME 11) MELATONIN 5MG CAP/TAB TAKE FOUR CAPSULE/TABLETS BY ACTIVE (S) MOUTH AT BEDTIME FOR INSOMNIA 12) MEMANTINE HCL 10MG TAB TAKE ONE TABLET BY MOUTH TWICE ACTIVE (S) DAILY FOR ALZHEIMERS DISEASE 13) MIDODRINE HCL 5MG TAB TAKE ONE TABLET BY MOUTH THREE ACTIVE TIMES DAILY NEEDED FOR LOW BLOOD PRESSURE 14) MULTIVITAMIN/MINERALS CAP/TAB TAKE 1 TABLET BY MOUTH ACTIVE (S) ONCE DAILY FOR VITAMIN SUPPLEMENTATION FOR VITAMIN SUPPLEMENTATION 15) ORAL,SWAB TOOTHETTE USE 1 MOUTH SWAB DIRECTED ONCE ACTIVE DAILY TO USE WITH CHLOREHEXADINE ORAL RINSE 16) POLYETHYLENE GLYCOL 3350 ORAL PWDR TAKE 17 GRAMS(FILL ACTIVE (S) CAP TO 17GM LINE) BY MOUTH ONCE DAILY FOR CONSTIPATION [MIX WITH 4 TO 8OZ. OF BEVERAGE] 17) RASAGILINE MESYLATE 1MG TAB TAKE ONE TABLET BY MOUTH ACTIVE (S) ONCE DAILY FOR PARKINSON'S DISEASE Active Non-VA Medications Status 1) Non-VA DOCUSATE NA 100MG CAP 100MG BY MOUTH ONCE ACTIVE DAILY NEEDED 2) Non-VA LORAZEPAM 0.5MG TAB 0.5MG BY MOUTH ONCE DAILY ACTIVE NEEDED 19 Total Medications Allergies: LIPITOR, AMOXICILLIN, ERYTHROMYCIN, FLOMAX, SEROQUEL, LEVAQUIN, CONTRAST MEDIA MIRTAZAPINE Vitals: Measurement DT WEIGHT LB(KG)[BMI] 04/26/2023 11:00 167(75.75)[28*] 03/21/2023 14:55 167(75.75)[28*] BMI: 27.8 102/64 (06/27/2023 10:00) 64 (06/27/2023 10:00) Pulse Oximetry VITAL SIGNS SELECTED Measurement DT POx (L/MIN)(%) 06/27/2023 10:00 95 05/26/2023 12:00 97 05/24/2023 11:00 99 LABS/RELEVANT STUDIES: reviewed-- no imaging [facility] but has had multiple outside CT scans MENTAL STATUS: APPEARANCE: appropriately dressed, well-groomed, and appeared his stated age BEHAVIOR: fair eye contact. No psychomotor disturbance. minimally cooperative. COGNITION: fair attention. COGNITIVE SCREEN DONE: no SPEECH & LANGUANGE: speech was impoverished MOOD: says no to depressed AFFECT: affect was restricted THOUGHT PROCESS: clear, logical THOUGHT CONTENT: displays no abnormalities SUICIDALITY:denies HOMICIDALITY:denies INSIGHT:poor JUDGMENT:fair RISK ASSESSMENT: Risk Factors: [ ]suicidal/homicidal ideation [ ]suicidal/homicidal intent [ ]suicidal/homicidal plan [ ]recent suicidal/homicidal behavior [ ]recent psychiatric admission [ ]hopelessness [ ]chronic mental illness [ ]substance use problems [ ]minimal support [ x]problems with disability [ ]recent deployment [x ]mental status abnormalities [x ]dementia [x ]age [x ]race [x ]gender [ ]access to lethal means [ ]history of suicide attempt(s)/self-directed violence [ ]chronic pain [ ]relationship problems or pending divorce [ ](other): Protective Factors: [x ]absence of suicidal/homicidal ideation, intent, plan, or behaviors [x ]absence of substance use problems [x ]strong support system [ ]responsibility for family, children, or pets [ ]future oriented [ ]help-seeking. [ ]positive therapeutic relationship [x ]medication compliant [ ](other): Based on a comprehensive review of risk and protective factors, the patient is considered to be at low imminent risk, and low chronic risk, for suicide /danger to others at the time of this evaluation. Pt has no known major psych hx, denies depression, anxiety or SI at this time. very supportive. ASSESSMENT: 73 yo referred for psychiatric baseline, is already followed by neuro for cognition and parkinsons. There is likely some history for anxiety and/or depression, as demonstrated by pcp treating him with various meds many years ago. however, pt is not able to recall details around this, and he is at this time denying sxs consistent with a major mood or anxiety disorder. this could however bear watching, as his hypersomnia and lack of interest in activities are sxs that would be consistent with this. we discussed that if ever to consider ssri/snri, the rasagiline should be discontinued due to interaction concerns. they do not feel medication is necessary at this time-- they decline any formal follow up as says she is close with [facility] team and can let know if they feel another visit would be helpful. DIAGNOSIS: mood d/o nos, parkinsons dementia RECOMMENDATIONS: - as above, they decline consideration for psychiatric medication at this time, and pt is denying depressed or anxious mood. - they understand that any future consideration for psychotropics would likely require d/c of rasagiline - they will continue follow up with neurology for the dementia and sleep meds - they decline formal follow up at this time- they will let [facility] team know if this should change in future. Thank you for the consult. /sharron/ Andrea Barrera MD Geriatric Psychiatrist Signed: 07/19/2023 14:29 Receipt Acknowledged By: 07/20/2023 11:03 /sharron/ Olga Segal, MSN, SHOTBLAST OPERATOR [facility] Undercar Specialist 07/20/2023 ADDENDUM STATUS: COMPLETED Alerting ZACHARIAH MALONE of the above for review. Thank you. /consuelo Segal MSN, SHOTBLAST OPERATOR [facility] Undercar Specialist Signed: 07/20/2023 11:03 ANDREA BARRERA [facility]
--- OUTSIDE RECORDS SUMMARY | 2024-05-30 08:39 | XMS_ITS | Encounter Summary ---
Author Name Department of Vetera [place] Organization [place] Address [address] [place] [id number] Care Team Providers Care Automation Engineering Manager Name Role Phone HUSEYIN LUIS FERNANDO [...] PRESCRIPT ION [id number] 1 Jun 20, 2017 [id number] [phone] EAMON OLIVIA ERT PATIENT MEDICARE (WNR) MEDICARE (M) PART A Jun 20, 2014 PART A [id number] [phone] EAMON OLIVIA ERT PATIENT MEDICARE (WNR) MEDICARE (M) PART B Jun 20, 2014 PART B [id number] EAMON OLIVIA ERT PATIENT MEDICARE (WNR) MEDICARE (M) PART A Jun 20, 2014 PART A [id number] EAMON OLIVIA ERT PATIENT MEDICARE (WNR) MEDICARE (M) PART B Jun 20, 2014 PART B [id number] EAMON OLIVIA ERT PATIENT OPTUM RX PRESCRIPT ION RX Jun 20, 2023 THPRX [id number] EAMON OLIVIA ERT PATIENT OPTUM RX PRESCRIPT ION RX Jun 20, 2022 THPRX [id number] EAMON OLIVIA ERT PATIENT OPTUM RX PRESCRIPT ION RX Jun 20, 2022 THPRX [id number] DAVON OLIVIA JR PATIENT [facility] Jun 20, 2017 [id number] [phone] EAMON OLIVIA ERT PATIENT [facility] Jun 20, 2017 [id number] DAVON OLIVIA JR PATIENT [facility] Jun 20, 2017 [id number] DAVON OLIVIA JR PATIENT [facility] USP Jun 20, 2017 USP [id number] EAMON OLIVIA ERT PATIENT [facility] Jun 20, 2023 [id number] EAMON OLIVIA ERT PATIENT Selected Encounter This section includes the information on record at [place] for the Encounter. Date/Time Encounter Type Encounter Description Reason Provider Source Jul 15, 2023 11:15 AM CASE MANAGEMENT [facility] - INCLUSION SPECIAL EDUCATOR ICD-10-CM Z65.9 Problem related to unspecified psychosocial circumstances KAMILAH MALCOLM IHE Encounter Template Text not used by [place] Assessments - Encounter Diagnoses This section includes the primary and secondary diagnoses documented for the Encounter. Date/Time Primary/Secondary Diagnosis Diagnosis Name Provider Source Jul 15, 2023 04:20 PM PRIMARY Problem related to unspecified psychosocial circumstances KAMILAH MALCOLM [place] [facility] Plan of Treatment: Future Appointments (+ 6 months) and Future Tests (+/- 45 days) The Plan of Treatment section includes future care activities for the patient from all [place] treatmentfacilities. This section includes future appointments and future orders which are active, pending or scheduled. Future Appointments This section includes appointments that were scheduled to occur 6 months from the date of the Encounter, up to a maximum of 20 appointments. The data comes from all [place] treatment facilities. Appointment Date/Time Appointment Type Appointme nt Facility Name Jul 19, 2023 01:00 PM AMBULATORY - PSYCHIATRY [place] [facility] Jul 19, 2023 01:00 PM AMBULATORY - [facility]AT[facility] Oct 17, 2023 01:00 PM AM[facility]ULATORY [facility] [place] [facility] Oct 17, 2023 01:15 PM [facility] [place] [facility] Dec 26, 2023 11:00 AM AMBULATORY - MEDICINE [place] C [facility]TR[facility] Jan 04, 2024 01:00 PM AMBULATORY - NONE [facility] Social History: Smoking Status (Most current) and Tobacco Use (All prior to encounter date) This section includes the most current, and the historical, smoking and tobacco- related health factors from the [place] facility where the Encounter took place. Current Smoking Status This section includes the most current smoking, or tobacco-related health factor, from the [place] facility where the Encounter took place. Date/Time Current Smoking Status Comment Facil ity Jan 19, 2023 12:24 PM VA-TOBACCO NEVER USED [facility] Tobacco Use History This section includes a history of the smoking, or tobacco-related health factors, that were collected on or before the date of the Encounter. The data comes from the [place] facility where the Encounter took place. Date/Time Smoking Status/Tobacco Use Comment F acility Jan 15, 2021 11:00 AM [place]-TOBACCO NEVER USED [facility] Advance Directives: All historical and current Section Date Range: From patient's date of to the date document was created. This section includes ALL of a patient's completed or amended [place] Advance and Rescinded Directives. The entries below indicate that a directive exists for the patient, but an actual copy is not included with this document. The data comes from all [place] facilities. Date Advance Directives Provider Source Jan 20, 2021 ADVANCE DIRECTIVE BENTON ARAUZ [facility] Encounter Notes: All associated encounter notes This section contains the clinical notes associated to the Encounter. Date/Time Encounter Note(s) Provider Source Jul 15, 2023 11:15 AM [facility] E & M NOTE: LOCAL TITLE: HB SOCIAL WORK NOTE STANDARD TITLE: [facility] E & M NOTE DATE OF NOTE: JUL 15, 2023@11:15 ENTRY DATE: JUL 15, 2023@16:20:17 AUTHOR: KAMILAH MALCOLM EXP COSIGNER: URGENCY: STATUS: [...] Result: Screen is negative. Length of visit: 20 Minutes The was identified by name and . The is dealing with Parkinson's Disease, Insomnia, incontinence, and Memory Loss. The was seen today for a supportive visit. [facility] SW met with both and spouse in the back room in which the watches television. The and spouse reported that things continues to get better. The spouse stated that she has been able to get more sleep as there has been changes to the 's MELATONIN dose. She reported that the was taking 20mg and now is taking 15mg. She reported this changed has helped the sleep better through the night, which has allowed her to sleep better at night. She reported that the Neurologist is aware of this change and in agreement as well. Spouse stated that the has [facility] scheduled for 07/19/23 for [facility]. Caregiver stated that she is unsure if this appointment is beneficial as the is unable to report information. [facility] SW provided support to the caregiver and informed the caregiver and that the appointment is beneficial as the provider can visibly see the and obtain information from the spouse, if unable to answer questions or provide information asked. G[place]ier and spouse agreeable to follow through with [facility] Appointment. They confirmed SOCIOLOGY INSTRUCTOR M-W-F for 3 hours a day and this continues to be beneficial to the and spouse. The spouse confirmed engagement in Caregiver support program and feels this has been beneficial to her as well. She stated that she is doing research on Estate planning and will plan to meet with an attorney lawyer in August 2023 to create this plan. Spouse and reported the loss of their parrot of 30 years in which they both are grieving. Condolences provided to the and spouse, as well as, support in regards to their loss. No other SW needs at this time. [facility] PT: Spouse reported bathroom accommodations scheduled to occur 08/15 & 08/16. She will contact [facility] PT after accommodations have been made to explore shower chair/equipment needs. [facility] FOREIGN LANGUAGES DEPARTMENT CHAIR: Spouse is inquiring if the would benefit from calcium supplement. /es/ OLEG Sandhu [facility] Header Operator Signed: 07/15/2023 16:32 Receipt Acknowledged By: 07/15/2023 16:59 /es/ RAMIN MENDIETA, PT, MS, ATP [facility] Physical Therapist 07/18/2023 08:40 /es/ JENNIFER SEGURA SHUTTLELESS LOOM WEAVER [facility] ELECTRONIC TEST TECHNICIAN 07/19/2023 13:49 /es/ LUIS FERNANDO DONNELLYC [facility] NURSE PRACTITIONER [facility]
--- OUTSIDE RECORDS SUMMARY | 2024-05-30 08:39 | XMS_ITS ---
Author Name [facility] [place] Organization [facility] Address [address] [place] [id number] Care Team Providers Care Freezing Room Worker Name Role Phone HUSEYIN LUIS FERNANDO Primary [...] SIMS ION [id number] Jun 20, 2017 [id number] [phone] EAMON OLIVIA ERT PATIENT MEDICARE (WNR) MEDICARE (M) PART A Jun 20, 2014 PART A [id number] EAMON OLIVIA ERT PATIENT MEDICARE (WNR) MEDICARE (M) PART B Jun 20, 2014 PART B [id number] EAMON OLIVIA ERT PATIENT MEDICARE (WNR) MEDICARE (M) PART A Jun 20, 2014 PART A [id number] [phone] EAMON OLIVIA ERT PATIENT MEDICARE (WNR) MEDICARE (M) PART B Jun 20, 2014 PART B [id number] EAMON OLIVIA ERT PATIENT [employer] RX PRESCRIPT ION RX Jun 20, 2023 THPRX [id number] [phone] EAMON OLIVIA ERT PATIENT [employer] RX PRESCRIPT ION RX Jun 20, 2022 THPRX [id number] EAMON OLIVIA ERT PATIENT [employer] RX PRESCRIPT ION RX Jun 20, 2022 THPRX [id number] DAVON OLIVIA JR PATIENT [facility] Jun 20, 2017 [id number] EAMON OLIVIA ERT PATIENT [facility] [place] [facility] E Jun 20, 2017 [id number] DAVON OLIVIA JR PATIENT [facility] Jun 20, 2017 [id number] DAVON OLIVIA JR PATIENT [facility] Jun 20, 2017 [id number] [id number] EAMON OLIVIA ERT PATIENT [facility] Jun 20, 2023 [id number] EAMON OLIVIA ERT PATIENT Selected Encounter This section includes the information on record at [place] for the Encounter. Date/Time Encounter Type Encounter Description Reason Provider Source Jun 27, 2023 10:00 AM SELF CARE MNGMENT TRAINING [facility] Nursing (RN / LP) ICD-10-CM G20.C Parkinsonism, unspecified RISING,JENNIFER L IHE Encounter Template Text not used by [place] Assessments - Encounter Diagnoses This section includes the primary and secondary diagnoses documented for the Encounter. Date/Time Primary/Secondary Diagnosis Diagnosis Name Provider Source Jun 28, 2023 03:34 PM PRIMARY Parkinsonism, unspecified RISING,HEATHE R L [place] [facility] Jun 28, 2023 03:34 PM SECONDARY Hypotension, unspecified RISING,HEATHE R L [place] [facility] Jun 28, 2023 03:34 PM SECONDARY Unspecified urinary incontinence JIE SEGURA [facility] Plan of Treatment: Future Appointments (+ 6 months) and Future Tests (+/- 45 days) The Plan of Treatment section includes future care activities for the patient from all [place] [facility]. This section includes future appointments and future [...] 19, 2023 01:00 PM [facility] Jul 19, 2023 01:00 PM AMBULAT[facility] - [facility] Oct 17, 2023 01:00 PM [facility] Oct 17, 2023 01:15 PM [facility]BULAT[facility] Dec 26, 2023 11:00 AM AMBULATORY - MEDICINE [facility] Vital Signs: All taken on the encounter date This section contains inpatient and outpatient Vital Signs collected on the date of the Encounter. Date/Time Temperature Pulse Blood Pressure Respiratory Rate SP02 Pain Height Weight Body Mass Index Source Jun 27, 2023 10:00 AM 97.8 F 64 /min 102/64 mm[Hg] 16 /min 95 % 0 [facility] Social History: Smoking Status (Most [...] Raghu ity Jan 19, 2023 12:24 PM [place]-TOBACCO NEVER USED [facility] Tobacco Use History This section includes a history of the smoking, or tobacco-related health factors, that were collected on or before the date of the Encounter. The data comes from the [place] facility where the Encounter took place. Date/Time Smoking Status/Tobacco Use Comment F acility Jan 15, 2021 11:00 AM [place]-TOBACCO NEVER USED [facility] Advance Directives: All historical and current [...] Jan 20, 2021 ADVANCE DIRECTIVE [facility] Encounter Notes: All associated encounter notes This section contains the clinical notes associated to the Encounter. Date/Time Encounter Note(s) Provider Source Jun 27, 2023 10:44 PM HB NURSING NOTE: LOCAL TITLE: HBPC RN PROGRESS NOTE STANDARD TITLE: HB NURSING NOTE DATE OF NOTE: JUN 27, 2023@22:44 ENTRY DATE: JUN 27, 2023@22:44:39 AUTHOR: JENNIFER SEGURA COSIGNER: URGENCY: STATUS: COMPLETED Coronavirus Disease 2019 [...] > 15 minutes). Result: Screen is negative. Nursing Progress Note Active and Recently Outpatient Medications (including Supplies): Active Outpatient Medications Status 1) APIXABAN 5MG TAB TAKE ONE TABLET BY MOUTH EVERY 12 ACTIVE HOURS FOR ATRIAL FIBRILLATION 2) CARBIDOPA 25/LEVODOPA 100MG SA TAB TAKE 1 TABLET BY ACTIVE MOUTH THREE TIMES A DAY FOR PARKINSON SYMPTOMS 3) CARBIDOPA 25/LEVODOPA 100MG TAB TAKE 1 TABLET BY ACTIVE MOUTH FOUR TIMES A DAY 4) CHLORHEXIDINE GLUCONATE 0.12% MOUTHWASH RINSE 15ML BY ACTIVE MOUTH ONCE DAILY FOR INFLAMMATION OF THE GUMS - SWISH AND SPIT. DO NOT SWALLOW 5) CHOLECALCIF 25MCG (D3-1,000UNIT) TAB TAKE ONE TABLET ACTIVE BY MOUTH ONCE DAILY FOR VITAMIN SUPPLEMENTATION 6) FAMOTIDINE 20MG TAB TAKE ONE TABLET BY MOUTH ONCE ACTIVE DAILY FOR STOMACH ACID 7) HYDROCHLOROTHIAZIDE 25MG TAB TAKE ONE TABLET BY MOUTH ACTIVE ONCE DAILY FOR HIGH BLOOD PRESSURE 8) HYDROPHILIC (EQV EUCERIN) TOP CREAM APPLY A LIBERAL ACTIVE AMOUNT TOPICALLY ONCE DAILY FOR DRY SKIN 9) HYDROXYZINE HCL 10MG TAB TAKE ONE TABLET BY MOUTH AT ACTIVE BEDTIME NEEDED FOR ANXIETY 10) INCONTINENCE WRAP,MALE USE 1 INCONTINENCE WRAP ACTIVE TOPICALLY AT BEDTIME 11) MELATONIN 5MG CAP/TAB TAKE FOUR CAPSULE/TABLETS BY ACTIVE MOUTH AT BEDTIME FOR INSOMNIA 12) MEMANTINE HCL 10MG TAB TAKE ONE TABLET BY MOUTH TWICE ACTIVE DAILY FOR ALZHEIMERS DISEASE 13) MIDODRINE HCL [...] MOUTH ACTIVE ONCE DAILY FOR PARKINSON'S DISEASE Active Non-VA Medications Status 1) Non-VA DOCUSATE NA 100MG CAP 100MG BY MOUTH ONCE ACTIVE DAILY NEEDED 2) Non-VA LORAZEPAM 0.5MG TAB 0.5MG BY MOUTH ONCE DAILY ACTIVE NEEDED 19 Total Medications MEDICATION REVIEW Medication review completed [...] in patient's home at time of visit. [place] identified by: Full Name, Facial Recognition Length of visit in home: 40 MINUTES Problem addressed for this visit: PD Specimen(s) collected during this visit: None NURSING SUMMARY:RNCM made home visit for chronic disease management, c/v and c/p assessment, med oversight/review, neuro assessment. Latham sleeping in recliner during home visit, spouse present. easily awakened. reports feeling good. Denies feeling depressed. Spouse reported the week before [place] they were having Flu like symptoms, home covid test negative. Symptoms consisted of low grade fever, tired, fatigue, cough and body aches. Spouse increased fluids and treated fever with acetaminophen. Both back to baseline. Ls clear throughout. Spouse reports Latham still has an occasional cough. No cough noted during home visit. Resp easy and reg. Blood pressure on the lower side. On hydrochlorothiazide and takes midodrine as needed for hypotension. Reviewed ssx of hyper/hypotension. On blood thinner. Reviewed bleeding precautions. Hr strong and reg. Denies chest pain, palpations, dizziness. reports blood pressure slightly elevated when he wasn't feeling well. Back to baseline. Appetite good, will eat what's in front of him and clean his plated. finely chops all foods, no choking episodes. Adequate fluid intake. Spouse pushes fluids. Neuros intact. Good eye contact. Answering questions appropriately. Speech clear, voice soft and monotone, but able to understand. Spouse reports Latham is sleeping a lot, sleeps through the night and napping during the day. Latham followed up with Dr. Fabby Donahue at [facility] on 06/23/22. Discussed increase sleepiness. Neurologist increased fact acting carbidopa-levodopa to four times a day and recommended to lower Melatonin dosage to 15 mg at night to see if is less sleepy during the day. Will monitor effectiveness. Neurologist office faxed [place] med change. Vet to follow up in 6 months. manages and administers meds in pudding or applesauce, swallowing pills without difficulty. Updated med list left in home. mainly chair bound. Ambulates very short distance to the bathroom with walker and steadies him with gait belt. Shuffled gait. High fall risk. . Blood Pressure: 102/64 (06/27/2023 10:00) Pulse: 64 (06/27/2023 10:00) Respiration: 16 (06/27/2023 10:00) Temperature: 97.8 F [36.6 C] (06/27/2023 10:00) Pain Score: 0 (06/27/2023 10:00) EXAMINATION: Lungs: Clear throughout. Edema: PPP, No edema HR: Strong and reg. Bowel/Bladder: Incontinent of urine. Continent of stool. Denies diarrhea/constipation. Educated on incontinence care- Changing depends when soiled, keeping kendall area clean and dry, apply barrier cream as needed. Skin: Clean, dry and intact. Home Safety FALLS NO INFECTIONS NO ER/HOSPITALIZATIONS NO Teaching/goals: Refer to nursing summary. Latham goal is to live at home safely with his as long as possible with assist from his and HBDARSHAN, CARE ADMINISTRATIVE TECH Patient verbalizes understanding to above and will call with any concerns or changes in condition. For emergent care call 911. Plan for next visit: 07/25/22 for chronic disease management, neuro assessment, c/v an dc/p assessment, med review, /sharron/ JENNIFER SEGURA RN BSN HBDARSHAN ADDRESS CHANGE CLERK Signed: 06/28/2023 15:35 JENNIFER SEGURA CN[facility]
--- OUTSIDE RECORDS SUMMARY | 2024-05-30 08:40 | XMS_ITS ---
Author Name [facility] [place] [facility] [place] [facility] [place] Address [address] [place] [id number] Care Team Providers Care Sewing Machine Attachment Tester Name Role Phone LUIS FERNANDO GARCIA Primary [...] PRESCRIPT ION [id number] 1 Jun 20, 2017 [id number] EAMON OLIVIA ERT PATIENT MEDICARE (WNR) MEDICARE (M) PART A Jun 20, 2014 PART A [id number] EAMON OLIVIA ERT PATIENT MEDICARE (WNR) MEDICARE (M) PART B Jun 20, 2014 PART B [id number] [phone] EAMON OLIVIA ERT PATIENT MEDICARE (WNR) MEDICARE (M) PART A Jun 20, 2014 PART A [id number] EAMON OLIVIA ERT PATIENT MEDICARE (WNR) MEDICARE (M) PART B Jun 20, 2014 PART B [id number] EAMON OLIVIA ERT PATIENT OPTUM RX PRESCRIPT ION RX Jun 20, 2023 THPRX [id number] EAMON OLIVIA ERT PATIENT OPTUM RX PRESCRIPT ION RX Jun 20, 2022 THPRX [id number] [phone] EAMON OLIVIA ERT PATIENT [facility] RX PRESCRIPT ION RX Jun 20, 2022 THPRX [id number] [phone] DAVON OLIVIA JR PATIENT [facility] Jun 20, 2017 [id number] EAMON OLIVIA ERT PATIENT [facility] PE[facility]A E Jun 20, 2017 [id number] DAVON OLIVIA JR PATIENT [facility] E Jun 20, 2017 [id number] DAVON OLIVIA JR [facility]IENT [facility] Jun 20, 2017 USP [id number] EAMON OLIVIA ERT PATIENT [facility] Jun 20, 2023 [id number] EAMON OLIVIA ERT PATIENT Selected Encounter This section includes the information on record at [place] for the Encounter. Date/Time Encounter Type Encounter Description Reason Pro vider Source Jul 28, 2023 01:00 PM Outpatient Encounter [facility] PHYSIC EXTND(GLASSWARE SELECTOR,OUTER DIAMETER GRINDER,[place]) IHE Encounter Template Text not used by [facility] Plan of Treatment: Future Appointments (+ 6 months) and Future Tests (+/- 45 days) The Plan of Treatment section includes future care activities for the patient from all [place] treatmentfacilities. This section includes future appointments and future orders which are active, pending or scheduled. Future Appointments This section includes appointments that were scheduled to occur 6 months from the date of the Encounter, up to a maximum of 20 appointments. The data comes from all [place] treatment facilities. Appointment Date/Time Appointment Type Appointme nt Facility Name Oct 17, 2023 01:00 PM AMBULATORY - MEDICINE [place] [facility] Oct 17, 2023 01:15 PM [facility] Dec 26, 2023 11:00 AM [facility] Jan 04, 2024 01:00 PM AMBULATORY - NONE [facility] Social History: Smoking Status (Most current) and Tobacco Use (All prior to encounter date) This section includes the most current, and the historical, smoking and tobacco- related health factors from the [place] facility where the Encounter took place. Current Smoking Status This section includes the most current smoking, or tobacco-related health factor, from the [place] facility where the Encounter took place. Date/Time Current Smoking Status Comment Facil ity Jan 19, 2023 12:24 PM VA-TOBACCO NEVER USED [facility] Tobacco Use History This section includes a history of the smoking, or tobacco-related health factors, that were collected on or before the date of the Encounter. The data comes from the [place] facility where the Encounter took place. Date/Time Smoking Status/Tobacco Use Comment F acility Jan 15, 2021 11:00 AM VA-TOBACCO NEVER USED [facility] Advance Directives: All historical and current Section Date Range: From patient's date of to the date document was created. This section includes ALL of a patient's completed or amended [place] Advance and Rescinded Directives. The entries below indicate that a directive exists for the patient, but an actual copy is not included with this document. The data comes from all [place] facilities. Date Advance Directives Provider Source Jan 20, 2021 ADVANCE DIRECTIVE [facility] ARAUZ [facility] Encounter Notes: All associated encounter notes This section contains the clinical notes associated to the Encounter. Date/Time Encounter Note(s) Provider Source Jul 28, 2023 01:00 PM [facility] NOTE: LOCAL TITLE: [facility] INTERDISCIPLINARY NOTE STANDARD TITLE: [facility] NOTE DATE OF NOTE: JUL 28, 2023@13:00 ENTRY DATE: JUL 29, 2023@15:23:48 AUTHOR: JENNIFER SEGURA EXP COSIGNER: URGENCY: STATUS: COMPLETED [facility] INTERDISCIPLINARY NOTE Has ADDENDA INTERDISCIPLINARY NOTE Allergies: LIPITOR, AMOXICILLIN, ERYTHROMYCIN, FLOMAX, SEROQUEL, LEVAQUIN, CONTRAST MEDIA MIRTAZAPINE Risk Assessment Level 1 Low risk DNR: Full Code Advanced Directive Completed: Yes Family/Community Support: Zora lives in a single family home with his Tory. Tory is vet's primary caregiver/HCP/DPOA. They have no children, Zora's brother- in-law Stephon lives in [place] and will come and stay with vet when Tory has to leave for MD appts. Zora requires assist with all adl's, dependent on all Iadl's. Receives MEDICAL ADVISOR services through [place] 9 hours a week ([facility]). Mental Status: Dx of Dementia PLAN OF CARE 90 day review Dates covered by plan of care from Jul to October Primary Care Provider: Luis Fernando Garcia PROBLEM LIST: Active problems - Computerized Problem List is the source for the followin. Long-term current use of anticoagulant 2. Gingivitis 3. Parkinsonism 4. Squamous cell carcinoma of skin 5. Basal cell carcinoma of skin multiple sites-head, arm, neck 6. Hypotension Intermittent 7. Benign prostatic hyperplasia 8. Hematuria Intermittent 9. Diverticular disease of colon 10. Internal hemorrhoids 11. REM sleep behavior disorder 12. Peripheral vascular disease of Carotids- L more than Right 13. Migraine 14. Solitary nodule of lung 2mm-via CT 15. Dupuytren's contracture 16. Multiple renal cysts 17. Atrial flutter 18. History of deep vein thrombosis 19. Memory loss 20. Sundowning 21. Urinary incontinence 22. Insomnia 23. Gastroesophageal reflux disease 24. AF- Atrial Fibrillation ([facility] [id number]) 25. Parkinson's Disease ([facility] [id number]) 26. Kidney Stone ([facility] [id number]) [place] Medications: Active Outpatient Medications (including Supplies): Active [...] ONCE DAILY ACTIVE NEEDED 19 Total Medications Gender Specific Health Assessment: BPH, Urinary Incontinence Fall Risk: [facility] 10 Fall Risk Assessment Tool Required Core [...] considered at risk for falling. Created by: [facility] Functional Limitations Use of assistive devices wheelchair. [...] per every 4- weeks and 2 PRN [facility] RN visits for changes in Health Status [...] The One Thing that Matters to the [place] was used to align the current care plan. [place] reports what matters the most to him is to be able to live in his house with his with assistance from [facility] and [facility] as long as he can. MEDICATION Medications were addressed at this visit. Spouse administers medications MENTATION Depression was addressed at this visit. denies feeling depressed. Comment: PHQ-2 Mental Health Screening performed by [facility] RN this visit. Over the past two weeks, how often have you been bothered by the following problems? 1. Little interest or pleasure in doing things? 0 = Not at all 2. Feeling down, depressed, or hopeless? 0 = Not at all Total Score: 0 Interpretation: Negative Comment: CABLE WORKER HELPER to Further address at his Initial Assessment [...] Follow up with Community Neurologist Dr. Fabby Donahue [address] [facility] and encourage f/u as needed and to follow through recommendations. Monitor effectiveness of medication on stiffness, weakness. Consult LINING [facility]AMPER for speech therapy when indicated or might be beneficial. [facility] Registered Dietitian for eval and education as [...] increased stimulation, i.e talking when eating. Consult [facility] RD for nutritional needs and assess swallowing. Vet recently attempted barrium swallow study but unable to tolerated, not completed. 3. PROBLEM ADDRESSED: BPH, urinary frequency-occasional incontinence. GOAL: minimize urinary complications/infections Interventions: teach important sx to monitor and report to [facility] team related to worsening sx of urinary sx-urgency, frequency, burning/pain, fever, chills, hematuria, flank pain. Follow up with Community Urologist- [facility]- Dr. Lloyd Soares. Encourage med adherence-currently on [...] sounds, peripheral edema, dizziness and report to [facility]. Instruct on medication use, and s/s of bleeding and anticoagulation precautions. 6. PROBLEM ADDRESSED: Fall/injury risk r/t weakness, poor vision-Macular degeneration GOAL: [place] will remain free of falls for the [...] visual weight gain, ssx of fluid overload. [facility] PT to weigh [place] with wheelchair scale foot care/nail care prn [...] will recognize changes that require reporting to [facility] staff patient will demonstrate correct use of adaptive equipment patient will be safe in home with environment adjusted to accommodate decrease in cognition and/or increase in disease progression Involvement of additional [facility] team members: N.P. assess and attach specific plan SW assess and attach specific plan RD assess and attach specific plan P.T. assess and attach specific plan Discharge Plan when able to remain in community safely with assistance of services and or family Per [facility] Discharge Policy [place] remained stable this IDT. No falls, no infections. ! ER visit for skin tear to scrotum-Resolved. Zora lives in a single family home with his Tory. Tory is vet's primary caregiver/HCP. They have no children, Zora's [id number] Stephon lives in [place] and will come and stay with vet when Tory has to leave for MD appts. Zora requires assist with all adl's, dependent on all Iadl's. Receives MEDICAL ADVISOR services through [place] 9 hours a week ([facility]). PMHX: Parkinson's Disease, Squamous cell carcinoma, basal cell carcinoma, hypotension, BPH, hematuria, diverticular disease, internal hemorrhoids, sleep behavior disorder, PVD, migraines, solitary of lung, dupuytren's contracture, atrial flutter, HX of DVT, memory loss, sundowning, urinary incontinence, insomnia, GERD, A-fib, kidney stones. Past Surgical History: septoplasty, deputren's surgery both hands. 2 heart ablations for afib, 3 lithotripsies. SCC forearm, left. Colonoscopy: One [place] is followed by multiple community providers Community Director Surface Transportation- Dr. Emil Davis Community PCP- Shir[facility] Community Neurologist- Dr. Fabby Donahue [address] [place] [address] [facility]- Dr. Lloyd Soares [facility]- Dr. Svitlana Hand PD- [place] followed up with Dr. Fabby Donahue at [facility] on 06/23/22. Discussed increase sleepiness. Neurologist increased fast acting carbidopa-levodopa to four times a day and recommended to lower Melatonin dosage to 15 mg at night to see if [place] is less sleepy during the day. Will monitor effectiveness. Neurologist office faxed [place] [facility] new prescription. Vet to follow up in 6 months. Followed up with [place] [facility]. No med changes. Blood pressure usually runs on the lower side. On hydrochlorothiazide and takes midodrine as needed for hypotension. Continue to monitor. manages and administers meds in pudding or applesauce, swallowing pills without difficulty. Updated med list left in home. Difficulty swallowing, now cutting up food into small pieces, tolerating well. No choking episodes this IDT. Vet had SLT consult/swallowing study at [facility]. Vet could only get through half of the swallowing study, not able to tolerate. [place] ambulates very short distance to the bathroom with walker and steadies him with gait belt. Shuffled gait. No falls this IDT. Incontinent of urine. uses quick change urine management wrap with oversized poise pad. states this method works for him. No skin breakdown. No getting this product through [facility]- [place] continent of stool and has bowel movement every 3 days. Baseline. Takes MiraLAX daily Abdomen soft non- tender, non-distended. + bs x 4 quads. Reviewed at IDT. Team agrees with POC /es/ JENNIFER SEGURA, LEGAL JOB TITLES [facility] ENVIRONMENTAL DEPARTMENT MANAGER Signed: 07/29/2023 16:28 Receipt Acknowledged By: 07/29/2023 16:32 /es/ Olga Segal, MSN, GLASSWARE SELECTOR [facility] Head Athletic Trainer 07/29/2023 17:31 /es/ AMARIS BAKER [facility] Clinical Pharmacist Practitioner 07/31/2023 08:17 /es/ SANJUANITA PEDROZA [facility] senior it specialist 08/01/2023 20:56 /es/ Candice Musa, PharmD Clinical Pest Technician 08/02/2023 12:41 /es/ RAMIN MENDIETA, PT, MS, ATP [facility] Physical Therapist 08/01/2023 09:18 /es/ RIGO FENTON, MS, RDN, LDN Staff Dietitian 08/01/2023 16:22 /es/ Suyapa Tirado [facility] Lasting Machine Operator 08/04/2023 08:21 /es/ LUIS FERNANDO HICKEY-C [facility] NURSE PRACTITIONER 08/01/2023 09:17 /es/ PERI COUCH LEGAL JOB TITLES [facility] senior it specialist 08/01/2023 ADDENDUM STATUS: COMPLETED Nutrition-Case discussed at IDT meeting. Patient was last seen by [facility] dietitian on 05/11/23. See Consult Report/Nutrition and Lining Inserter for nutrition assessment. Plan: 1. Follow-up visit: [...] FENTON, MS, RDN, LDN Staff Dietitian Signed: 08/01/2023 09:19 08/01/2023 ADDENDUM STATUS: COMPLETED [facility] SW will continue to provide caregiver supportive visits and psychosocial supportive visits monthly . [facility] SW will complete annual [facility] SW Assessment April 2024. /es/ OLEG Sandhu [facility] Lasting Machine Operator Signed: 08/01/2023 16:23 08/01/2023 ADDENDUM STATUS: COMPLETED Continue to review medication regimen quarterly. /es/ Paul StoreyD Clinical Pest Technician Signed: 08/01/2023 20:56 08/02/2023 ADDENDUM STATUS: COMPLETED WHAT MATTERS What Matters was addressed at this visit. Comment: patient does not speak much; patient's spouse (caregiver) wants patient to progress his mobility MOBILITY -------- Mobility was addressed at this visit. Comment: JH-HLM = 7 Patient completed a short course of [facility] PT on 06/21/23. No [facility] PT needs at this time, will follow up with patient annually and as required. /es/ RAMIN MENDIETA, PT, MS, ATP [facility] Physical Therapist Signed: 08/02/2023 12:44 08/04/2023 ADDENDUM STATUS: COMPLETED Will continue to follow every 6-12 months for routine medical care and as needed for changes in condition. /es/ LUIS FERNANDO HICKEY-C [facility] NURSE PRACTITIONER Signed: 08/04/2023 08:22 JENNIFER SEGURA [place] [facility]
--- OUTSIDE RECORDS SUMMARY | 2024-05-30 08:40 | XMS_ITS | Encounter Summary ---
Author Name [facility] [place] Address [address] [place] [address] Care Team Providers Care Relief Pilot Name Role Phone LUIS FERNANDO FONTANEZ Primary [...] PRESCRIPT ION [id number] 1 Jun 20, 2017 [id number] EAMON OLIVIA ERT PATIENT MEDICARE (WNR) MEDICARE (M) PART A Jun 20, 2014 PART A [id number] EAMON OLIVIA ERT PATIENT MEDICARE (WNR) MEDICARE (M) PART B Jun 20, 2014 PART B [id number] EAMON OLIVIA ERT PATIENT MEDICARE (WNR) MEDICARE (M) PART A Jun 20, 2014 PART A [id number] [phone] EAMON OLIVIA ERT PATIENT MEDICARE (WNR) MEDICARE (M) PART B Jun 20, 2014 PART B [id number] EAMON OLIVIA ERT PATIENT OPTUM RX PRESCRIPT ION RX Jun 20, 2023 THPRX [id number] [phone] EAMON OLIVIA ERT PATIENT OPTUM RX PRESCRIPT ION RX Jun 20, 2022 THPRX [id number] EAMON OLIVIA ERT PATIENT OPTUM RX PRESCRIPT ION RX Jun 20, 2022 THPRX [id number] [phone] DAVON OLIVIA JR PATIENT [facility] TON MAR Jun 20, 2017 [id number] EAMON OLIVIA ERT PATIENT [facility] TON PEÑA E Jun 20, 2017 [id number] DAVON OLIVIA JR [facility] E Jun 20, 2017 [id number] [phone] DAVON OLIVIA JR PATIENT [facility] USP Jun 20, 2017 USP [id number] EAMON OLIVIA ERT PATIENT [facility] Jun 20, 2023 [id number] EAMON OLIVIA ERT PATIENT Selected Encounter This section includes the information on record at [place] for the Encounter. Date/Time Encounter Type Encounter Description Reason Provider Source Jul 28, 2023 01:04 PM QNHP OL DIG ASSMT&MGMT 21+ [facility] - CLINICAL PHARMACIST ICD-10-CM Z79.899 Other care home (current) drug therapy DA GEORGE E Encounter Template Text not used by [place] Assessments - Encounter Diagnoses This section includes the primary and secondary diagnoses documented for the Encounter. Date/Time Primary/Secondary Diagnosis Diagnosis Name Provider Source Jul 29, 2023 01:58 PM PRIMARY Other care home (current) drug therapy DA GEORGE [place] [facility] [place] [facility] Plan of Treatment: Future Appointments (+ 6 months) and Future Tests (+/- 45 days) The Plan of Treatment section includes future care activities for the [facility] [place] [facility] This section includes future appointments and future orders which are active, pending or scheduled. Future Appointments This section includes appointments that were scheduled to occur 6 months from the date of the Encounter, up to a maximum of 20 appointments. The data comes from all [place] treatment facilities. Appointment Date/Time Appointment Type Appointme nt Facility Name Oct 17, 2023 01:00 PM [facility]BUL[facility] Oct 17, 2023 01:15 PM [facility] Dec 26, 2023 11:00 AM [facility] Jan 04, 2024 01:00 PM AMBULATORY - NONE [facility] Social History: Smoking Status (Most current) and Tobacco Use (All prior to encounter date) This section includes the most current, and the historical, smoking and tobacco- related health factors from the [place] facility where the Encounter took place. Current Smoking Status This section includes the most current smoking, or tobacco-related health factor, from the [place] facility where the Encounter took place. Date/Time Current Smoking Status Comment Facil ity Jan 19, 2023 12:24 PM [place]-TOBACCO NEVER USED [facility] Tobacco Use History This section includes a history of the smoking, or tobacco-related health factors, that were collected on or before the date of the Encounter. The data comes from the [place] facility where the Encounter took place. Date/Time Smoking Status/Tobacco Use Comment F acility Jan 15, 2021 11:00 AM [place]-TOBACCO NEVER USED [facility] Advance Directives: All historical and current Section Date Range: From patient's date of to the date document was created. This section includes ALL of a patient's completed or amended [place] Advance and Rescinded Directives. The entries below indicate that a directive exists for the patient, but an actual copy is not included with this document. The data comes from all [place] facilities. Date Advance Directives Provider Source Jan 20, 2021 ADVANCE DIRECTIVE BENTON ARAUZ [facility] Encounter Notes: All associated encounter notes This section contains the clinical notes associated to the Encounter. Date/Time Encounter Note(s) Provider Source Jul 28, 2023 01:04 PM [facility] MEDICATION MGT NOTE: LOCAL TITLE: [facility] PHARMACY MEDICATION REVIEW STANDARD TITLE: [facility] MEDICATION MGT NOTE DATE OF NOTE: JUL 28, 2023@13:04 ENTRY DATE: JUL 28, 2023@13:04:36 AUTHOR: CANDICE GEORGE COSIGNER: URGENCY: STATUS: COMPLETED [facility] PHARMACY MEDICATION REVIEW Has ADDENDA DAVON OLIVIA JR is a 73 year old WHITE MALE. 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, 01/27/2023October,VLAD P Peripheral vascular disease I73.9, 01/27/2023October,VLAD P Migraine G43.909, Onset 01/27/2023October,VLAD P Solitary nodule of lung R91.1, Onse 01/27/2023October,VLAD P Dupuytren's contracture M72.0, Onse 01/27/2023October,VLAD P Multiple renal cysts R69., Onset 00 01/27/2023October,VLAD P Atrial flutter I48.92, Onset 01/19/2023October,VLAD Patel History of deep vein thrombosis Z86 01/19/2023October,VLAD Patel Memory loss R41.3, Onset 01/19/2023October,VLAD Patel Sundowning F05., Onset 01/19/2023October,VLAD Patel Urinary incontinence R32., Onset 00 01/19/2023October,VLAD Patel Insomnia G47.00, Onset 01/19/2023October,VLAD Patel Gastroesophageal reflux disease K21 01/19/2023October,VLAD Patel AF- Atrial Fibrillation ([facility] [id number] 01/15/2021 [facility] Parkinson's Disease ([facility] [id number]) 01/15/2021 [facility] Kidney Stone ([facility] [id number]) N20.0 01/15/2021 [facility] Alcohol (-) Tobacco [...] WBC RBC HGB HCT MCV MCH PLT 05/26/2023 12:00 BLOOD 7.69 4.72 14.0 43.4 91.9 29.7 296 SERUM May 262022 12:00 Units Ranges GLUCOSE 89 mg/dL 65 - 100 BUN 17 mg/dL 7 - 25 CREATININE 1.08 mg/dL .5 - 1.4 Sodium 139 mmol/L 135 - 145 K+/Pot 3.5 mmol/L 3.5 - 5 CL 99 L mmol/L 100 - 110 CO2 31 H mEq/L 20 - 30 CA 9.1 mg/dL 8.5 - 10.2 MAG 2.0 mg/dL 1.6 - 2.6 eGFR CKD-EPI 202005/26/23 12:00 72 SERUM LIVER PANEL TREND Collection DT Spec AST ALT T BILI ALK DAGMAR T. PROT ALBUMIN 05/26/2023 12:00 SERUM 20 8 0.5 67 6.6 3.4 L LIPID PANEL TREND Collection DT Spec CHOL HDL CHO/HDL LDL-c TRIG 05/26/2023 12:00 SERUM 204 H 56 3.6 135 H 67 HEMOGLOBIN A1C TREND Collection DT Spec HGBA1c 05/26/2023 12:00 BLOOD 5.1 IRON PANEL TREND Collection DT Spec IRON Ferrit 05/26/2023 12:00 SERUM 106 95 IRON & TIBC PANEL; SERUM Moraima. Date: 05/26/23 12:00 Test Name Result Units Range TIBC 301 ug/dL 204 - 475 IRON 106 ug/dL 40 - 160 Transferrin Sat 35.2 % 20.0 - 50.0 THYROID PANEL Collection DT Specimen Test Name Result Units Ref Range 05/26/2023 12:00 SERUM TSH 1.64 uIU/mL 0.35 - 5.00 VITAMIN D 25-OH Collection DT Specimen Test Name Result Units Ref Range 05/26/2023 12:00 SERUM VITAMIN D (25-OH) 32 ng/mL 20 - 50 SERUM May 26 May 26 Reference 2022 2022 12:00 12:00 Units Ranges B12 610 pg/mL 200 - 900 FOLATE 13.04 ng/mL Ref: >=5.2 CrCl: 52.2 mL/min (C&G, IBW) Vitals: Ht: 65 in [165.1 cm] (04/26/2023 11:00) Wt: 167 lb [75.75 kg] (04/26/2023 11:00) BMI: BMI: 27.8 BP: 102/64 (06/27/2023 10:00) HR: 64 (06/27/2023 10:00) Pain: 0 (06/27/2023 10:00) ASSESSMENT: In the last 90 days - No falls/hospitalizations/infect ions noted - [facility] MIXOLOGIST 05/20/23: non-VA neurologist recently started pt on rasagiline 1mg daily for hypersalivation. BP today 120/72. Noted that pt has not had to use midodrine for hypotension for months. Med list reconciled - added carbidopa/levodopa 25/100mg SA TID; added cholecalciferol 25mcg daily; added chlorhexidine mouth rinse; increased dose of melatonin 10mg qHS to 20mg qHS; changed hydroxyzine 10mg qHS to 10mg qHS prn - Pharmacy e-consult 05/23/23: medication list reviewed for alternative oral dosage forms or viability for crushing given pt's dysphagia - [facility] RN 05/24/23: BP today 130/71 - 06/23/23: [facility] neurology increased carbidopa/levodopa 25/100mg 1 tablet TID to 1 tablet 4x/day - [facility] RN 06/27/23: BP today 102/64. [facility] neurologist advised to decrease melatonin 20mg qHS to 15mg qHS due to increased sleepiness during last visit on 06/23/23 - [facility] psych 07/19/23: pt declines consideration for psychiatric medication at this time. No med changes INTERVENTIONS/SUGGESTIONS: 1. Patient's medications were reviewed for significant drug interactions. - Concurrent use of HYDROXYZINE and FAMOTIDINE may result in an increased risk of QT interval prolongation. - Concurrent use of MIDODRINE and RASAGILINE may result in increased exposure to midodrine. 2. Patient has reduced renal function with an estimated creatinine clearance of 52.2 mL/min, therefore at risk of accumulation of [...] orthostatic hypotension. Also monitor for signs of SENIOR DATA INTEGRATION DEVELOPER depression and gait disturbances during ambulation. Could also consider repeating serum vitamin D (25-OHD) level if multiple recent falls/near falls; a goal 25-OHD of at least 30 ng/mL may be associated with fall/fracture risk reduction, although data varies. 4. All medical conditions have appropriate medication treatment EXCEPT: PVD - no antiplatelet; pt is on [...] incontinence and severity biannually. > Exercise/Physical Activity Pigevwkl-bs-doznhrdv aerobic activity 3-5x per week. Weight or resistance exercises. Flexibility activities to maintain ROM. Balance training to improve stability and prevent falls. > Bone Health: Calcium/vitamin D (diet and/or supplement): Men >70 yo: 1200mg Ca/800 international units vit D daily > ASA: Secondary ASCVD Prevention: *Daily low-dose ASA -> Pt is on a DOAC 8. Patient with zero refills on: none 9. Continue to review quarterly. 10. Other - Due for Shingrix vaccine per reminders. - Add an indication to problem list for docusate, PEG powder, and HCTZ. - Assess if pt requires antiplatelet therapy for h/o PVD. - Consider decreasing dose of HCTZ 25mg daily if concern for occasional hypotension. Noted last BP was 102/64 mmHg at last [facility] RN visit on 06/27/23. - Verify what dose of melatonin pt is currently takinmg qHS or 20mg qHS. Current order is written for 20mg qHS. Recommend updating order if needed. The details of this review were shared with the IDT in order to assist in creating a care plan designed to provide services focused on the health and well being of the patient. Time Spent: 40 min /sharron/ Candice George PharmD [facility] [employer] Members[employer]visors Signed: 07/29/2023 14:02 Receipt Acknowledged By: 07/29/2023 16:28 /sharron/ Olga Jones, MSN, MIXOLOGIST HB Sports Medicine Physician 07/29/2023 17:21 /sharron/ JENNIFER SEGURA 3RD MATE [facility] RADIO ADJUSTER 08/03/2023 15:39 /sharron/ LUIS FERNANDO HICKEY-C HB NURSE PRACTITIONER 07/29/2023 ADDENDUM STATUS: COMPLETED Noted. Reviewed pharmacist's recommendations. /consuelo SEGURA 3RD MATE [facility] RADIO ADJUSTER Signed: 07/29/2023 17:23 CANDICE GEORGERL [facility]
--- OUTSIDE RECORDS SUMMARY | 2024-05-30 08:41 | XMS_ITS ---
Author Name [facility] [place] Address [address] [place] [id number] Care Team Providers Care Student Liaison Officer Name Role Phone LUIS FERNANDO FONTANEZ Primary [...] PRESCRIPT ION [id number] 1 Jun 20, 2017 [id number] EAMON OLIVIA ERT PATIENT MEDICARE (WNR) MEDICARE (M) PART A Jun 20, 2014 PART A [id number] EAMON OLIVIA ERT PATIENT MEDICARE (WNR) MEDICARE (M) PART B Jun 20, 2014 PART B [id number] [phone] EAMON OLIVIA ERT PATIENT MEDICARE (WNR) MEDICARE (M) PART A Jun 20, 2014 PART A [id number] EAMON OLIVIA ERT PATIENT MEDICARE (WNR) MEDICARE (M) PART B Jun 20, 2014 PART B [id number] EAMON OLIVIA ERT PATIENT OPTUM RX PRESCRIPT ION RX Jun 20, 2023 THPRX [id number] EAMON OLIVIA ERT PATIENT OPTUM RX PRESCRIPT ION RX Jun 20, 2022 THPRX [id number] EAMON OLIVIA ERT PATIENT OPTUM RX PRESCRIPT ION RX Jun 20, 2022 THPRX [id number] DAVON OLIVIA JR PATIENT [facility] [place] TON MAR Jun 20, 2017 [id number] EAMON OLIVIA ERT PATIENT [facility] TON PEÑA E Jun 20, 2017 [id number] [phone] DAVON OLIVIA JR PATIENT [facility] TON PEÑA E Jun 20, 2017 [id number] DAVON OLIVIA JR PATIENT [facility] USP Jun 20, 2017 USP [id number] EAMON OLIVIA ERT PATIENT [facility] Jun 20, 2023 [id number] EAMON OLIVIA ERT PATIENT Selected Encounter This section includes the information on record at [place] for the Encounter. Date/Time Encounter Type Encounter Description Reason Pro vider Source Aug 04, 2023 11:51 AM Outpatient Encounter [facility] PHYSIC EXTND(STORAGE SOLUTIONS ARCHITECT,TELEPHONE ADVICE NURSE,PA) IHE Encounter Template Text not used by [place] Plan of Treatment: Future Appointments (+ 6 months) and Future Tests (+/- 45 days) The Plan of Treatment section includes future care activities for the patient from all [place] treatmentfacilities. This section includes future appointments and future orders which are active, pending or scheduled. Future Appointments This section includes appointments that were scheduled to occur 6 months from the date of the Encounter, up to a maximum of 20 appointments. The data comes from all [place] treatment facilities. Appointment Date/Time Appointment Type Appointme nt Facility Name Oct 17, 2023 01:00 PM [facility] Oct 17, 2023 01:15 PM [facility] Dec 26, 2023 11:00 AM [facility] Jan 04, 2024 01:00 PM [facility] Feb 02, 2024 03:00 PM [facility] Social History: Smoking Status (Most current) and Tobacco Use (All prior to encounter date) This section includes the most current, and the historical, smoking and tobacco- related health factors from the [place] facility where the Encounter took place. Current Smoking Status This section includes the most current smoking, or tobacco-related health factor, from the [place] facility where the Encounter took place. Date/Time Current Smoking Status Comment Facil ity Jan 19, 2023 12:24 PM VA-TOBACCO NEVER USED [facility] Tobacco Use History This section includes a history of the smoking, or tobacco-related health factors, that were collected on or before the date of the Encounter. The data comes from the [place] facility where the Encounter took place. Date/Time Smoking Status/Tobacco Use Comment F acility Jan 15, 2021 11:00 AM VA-TOBACCO NEVER USED [facility] Advance Directives: All historical and current Section Date Range: From patient's date of to the date document was created. This section includes ALL of a patient's completed or amended [place] Advance and Rescinded Directives. The entries below indicate that a directive exists for the patient, but an actual copy is not included with this document. The data comes from all [place] facilities. Date Advance Directives Provider Source Jan 20, 2021 ADVANCE DIRECTIVE BENTON ARAUZ [facility] Encounter Notes: All associated encounter notes This section contains the clinical notes associated to the Encounter. Date/Time Encounter Note(s) Provider Source Aug 04, 2023 11:51 AM ADMINISTRATIVE NOTE: LOCAL TITLE: FAX/MAIL RECEIVED STANDARD TITLE: ADMINISTRATIVE NOTE DATE OF NOTE: AUG 04, 2023@11:51 ENTRY DATE: AUG 04, 2023@11:51:08 AUTHOR: MARIAH FLORES EXP COSIGNER: URGENCY: STATUS: COMPLETED Document Received On: Jul Document Type: Other: ASSESSMENT/EVALUATION Date of Service: SEP 07, 2021 Facility and or Provider: [facility] Contact Information: PCP of Record: LUIS FERNANDO FONTANEZ Next visit with PCP: 12/26/2023 11:00 [facility] CARE-NEUROLOGY Primary Care May keep copies of this document for up to 14 days and send the original for scanning. /sharron/ MARIAH FLORES [facility] AMSA Signed: 08/04/2023 11:52 Receipt Acknowledged By: 08/05/2023 07:18 /sharron/ JENNIFER SEGURA RN BSN [facility] NON DESTRUCTIVE TESTING SUPERVISOR 08/05/2023 11:46 /sharron/ LUIS FERNANDO FONTANEZ VISUAL JOURNALIST-C [facility] NURSE PRACTITIONER MARIAH FLORES [place] [facility]
--- OUTSIDE RECORDS SUMMARY | 2024-05-30 08:41 | XMS_ITS ---
Author Name [facility] [place] Organization [facility] Address [address] [place] [id number] Care Team Providers Care Diet Counselor Name Role Phone HUSEYIN LUIS FERNANDO Primary [...] SIMS ION [id number] 1 Jun 20, 2017 [id number] EAMON OLIVIA ERT PATIENT MEDICARE (WNR) MEDICARE (M) PART A Jun 20, 2014 PART A [id number] EAMON OLIVIA ERT PATIENT MEDICARE (WNR) MEDICARE (M) PART B Jun 20, 2014 PART B [id number] EAMON OLIVIA ERT PATIENT MEDICARE (WNR) MEDICARE (M) PART A Jun 20, 2014 PART A [id number] EAMON OLIVIA ERT PATIENT MEDICARE (WNR) MEDICARE (M) PART B Jun 20, 2014 PART B [id number] [phone] EAMON OLIVIA ERT PATIENT OPTUM RX PRESCRIPT ION RX Jun 20, 2023 THPRX [id number] [phone] EAMON OLIVIA ERT PATIENT OPTUM RX PRESCRIPT ION RX Jun 20, 2022 THPRX [id number] EAMON OLIVIA ERT PATIENT OPTUM RX PRESCRIPT ION RX Jun 20, 2022 THPRX [id number] DAVON OLIVIA JR PATIENT [facility] Jun 20, 2017 [id number] [phone] EAMON OLIVIA ERT PATIENT [facility] [facility] E Jun 20, 2017 [id number] DAVON OLIVIA JR PATIENT [facility] Jun 20, 2017 [id number] DAVON OLIVIA JR PATIENT [facility] USP Jun 20, 2017 USP [id number] EAMON OLIVIA ERT PATIENT [facility] Jun 20, 2023 [id number] EAMON OLIVIA ERT PATIENT Selected Encounter This section includes the information on record at [place] for the Encounter. Date/Time Encounter Type Encounter Description Reason Provider Source Aug 02, 2023 10:40 AM SELF CARE MNGMENT TRAINING [facility] Nursing (RN / LP) ICD-10-CM G20.C Parkinsonism, unspecified RISING,JENNIFRE L IHE Encounter Template Text not used by [place] Assessments - Encounter Diagnoses This section includes the primary and secondary diagnoses documented for the Encounter. Date/Time Primary/Secondary Diagnosis Diagnosis Name Provider Source Aug 02, 2023 06:38 PM PRIMARY Parkinsonism, unspecified RISING,HEATHE R L [place] [facility] [place] [facility] Aug 02, 2023 06:38 PM SECONDARY Insomnia, unspecified RISING,HEATHE R L [place] [facility] [place] [facility] Aug 02, 2023 06:38 PM SECONDARY Unspecified urinary incontinence JIE SEGURA [facility] Plan of Treatment: Future Appointments (+ 6 months) and Future Tests (+/- 45 days) The Plan of Treatment section includes future care activities for the patient from all [place] treatment[facility]il[facility] hospital. This section includes future appointments and future orders which are active, pending or scheduled. Future Appointments This section includes appointments that were scheduled to occur 6 months from the date of the Encounter, up to a maximum of 20 appointments. The data comes from all [place] treatment facilities. Appointment Date/Time Appointment Type Appointme nt Facility Name Oct 17, 2023 01:00 PM [facility]BUL[facility] Oct 17, 2023 01:15 PM AMBULATORY - MEDICINE [facility] N[facility] Dec 26, 2023 11:00 AM AMBULATORY - MEDICINE [facility]L [facility] Jan 04, 2024 01:00 PM [facility] Vital Signs: All taken on the encounter date This section contains inpatient and outpatient Vital Signs collected on the date of the Encounter. Date/Time Temperature Pulse Blood Pressure Respiratory Rate SP02 Pain Height Weight Body Mass Index Source Aug 02, 2023 10:40 AM 97.7 56 122/69 18 100 0 [facility] Social History: Smoking Status (Most current) and Tobacco Use (All prior to encounter date) This section includes the most current, and the historical, smoking and tobacco- related health factors from the [place] facility where the Encounter took place. Current Smoking Status This section includes the most current smoking, or tobacco-related health factor, from the [place] facility where the Encounter took place. Date/Time Current Smoking Status Comment Facil ity Jan 19, 2023 12:24 PM [place]-TOBACCO [facility] USED [facility] Tobacco Use History This section includes a history of the smoking, or tobacco-related health factors, that were collected on or before the date of the Encounter. The data comes from the [place] facility where the Encounter took place. Date/Time Smoking Status/Tobacco Use Comment F acility Jan 15, 2021 11:00 AM [place]-TOBACCO [facility] Advance Directives: All historical and current Section Date Range: From patient's date of to the date document was created. This section includes ALL of a patient's completed or amended [place] Advance and Rescinded Directives. The entries below indicate that a directive exists for the patient, but an actual copy is not included with this document. The data comes from all [place] facilities. Date Advance Directives Provider Source Jan 20, 2021 ADVANCE DIRECTIVE AALIYAHBENTON ELZA Chacko [facility] Encounter Notes: All associated encounter notes This section contains the clinical notes associated to the Encounter. Date/Time Encounter Note(s) Provider Source Aug 02, 2023 03:13 PM HB NURSING NOTE: LOCAL TITLE: [facility] RN PROGRESS NOTE STANDARD TITLE: [facility] NURSING NOTE DATE OF NOTE: AUG 02, 2023@15:13 ENTRY DATE: AUG 02, 2023@15:13:33 AUTHOR: JENNIFER SEGURA COSIGNER: URGENCY: STATUS: COMPLETED [...] Minutes Problem addressed for this visit: PD, med review, Specimen(s) collected during this visit: None NURSING SUMMARY: RNCM made home visit for chronic disease management, c/v and c/p assessment, med oversight/review, neuro assessment. in the living room sitting in recliner upon arrival, spouse present. Well groomed. Dressed appropriately. Withdrawn, looking down when answering questions. Speech clear, voice soft and monotone, but able to understand. Relying on spouse to answer questions. Spouse reports [place] sleeping well at night and not so sleepy during the day. Spouse recently decreased Melatonin to 15 mg at bedtime with good effect. Improvement with wakefulness during the day. Spouse reports having a few tough days with care burden stress. She is involved in caregiver support group which she finds a good outlet. Spouse reports she had health issue last week where she needed to go to the ER and almost wasn't able to find someone to stay with . Limited family support, Spouse's brother lives close by and will help her out staying with . The day she needed to go to the ER her brother was at a MD appt that his brought him to. Spouse finally was able to get a hold of her brother who came and stayed with [place]. Spouse inquiring if VA would be able to help her out in time sensitive matters like the one stated above. RNCM explained that [place] has In and Out Patient Respite Care but in the situations as she stated above that needed to be addressed on the spur on the moment the VA would not be able to provide support. Explained that [place] would qualify for In- Out Pt Respite if she wasn't able to care for but VA would need time to plan. Spouse reports having increased anxiety and she is asking if VA would pay for Freespira. Spouse reports she has done some research that freespira was shown to be successful in reducing panic attacks and anxiety. Blood pressure stable 122/69. Spouse reports takes bp a few times a week after bathing and exercises and systolic will sometimes run high 140-150's. Educated spouse to check bp 2 hours after morning meds. Spouse verbalized understanding. On blood thinner. Reviewed bleeding precautions. Hr strong and reg. Denies chest pain, palpations, dizziness. Appetite good, adequate fluid intake. finely chops all foods, no choking episodes. Neuros- followed up with Dr. Fabby Donahue at [facility] on 06/23/22. Will have office notes faxed to [place]. Vet to follow up in 6 months. Seen by Geriatric Psych 07/19. No med changes. No follow up appt. manages and administers meds in pudding or applesauce, swallowing pills without difficulty. Updated med list left in home. [place] ambulates short distances. Observed [place] ambulate from living room to kitchen using walker, gait belt and 1 assist. Shuffled gait. Spouse reports sometimes will try to get out of the recliner when she is in the other room. Recommended chair alarm. Spouse states she has chair alarm but feels the alarm will startle [place] and cause him to fall. Reviewed risk vs benefit. Discussed with spouse engaging [place] in activities during the day to stimulate and keep him awake. Spouse brought a bag with puzzles, mazes, cross word puzzles, tetra tower to build. [place] has no interest. enjoys watching TV. Blood Pressure: 122/69 (08/02/2023 10:40) Pulse: 56 (08/02/2023 10:40) Respiration: 18 (08/02/2023 10:40) Temperature: 97.7 F [36.5 C] (08/02/2023 10:40) Pain Score: 0 (08/02/2023 10:40) EXAMINATION: Lungs: Ls clear throughout. Resp easy and reg. Edema: PPP, No edema HR: Strong and reg. Denies chest pain, palpations, dizziness. Bowel/Bladder: Incontinent of urine. uses quick change urine management wrap with oversized poise pad. states this method works for him. No skin breakdown. Now getting this product through [place]- Occasional incontinence of stool. Denies diarrhea/constipation. Skin: Clean, dry and intact. Home Safety FALLS NO INFECTIONS NO ER/HOSPITALIZATIONS NO Teaching/goals: Refer to nursing summary. [place] goal is to live at home safely with his as long as possible with assist from his and HB, LENS ASSORTER Patient verbalizes understanding to above and will call with any concerns or changes in condition. For emergent care call 911. Revisit: 08/30 for chronic disease management, neuro assessment, c/v an dc/p assessment, med review, /sharron/ JENNIFER SEGURA ELECTRONIC CALIBRATION TECHNICIAN HBDARSHAN TOWER HAND Signed: 08/02/2023 18:38 JENNIFER SEGURA [facility]
--- OUTSIDE RECORDS SUMMARY | 2024-05-30 08:41 | XMS_ITS ---
Author Name [facility] [place] Organization [facility] [place] Address [address] [place] [address] Care Team Providers Care Cover Cutter Machine Name Role Phone LUIS FERNANDO FONTANEZ Primary [...] PRESCRIPT ION [id number] 1 Jun 20, 2017 [id number] EAMON OLIVIA ERT PATIENT MEDICARE (WNR) MEDICARE (M) PART A Jun 20, 2014 PART A [id number] EAMON OLIVIA ERT PATIENT MEDICARE (WNR) MEDICARE (M) PART B Jun 20, 2014 PART B [id number] [phone] EAMON OLIVIA ERT PATIENT MEDICARE (WNR) MEDICARE (M) PART A Jun 20, 2014 PART A [id number] [phone] EAMON OLIVIA ERT PATIENT MEDICARE (WNR) MEDICARE (M) PART B Jun 20, 2014 PART B [id number] EAMON OLIVIA ERT PATIENT OPTUM RX PRESCRIPT ION RX Jun 20, 2023 THPRX [id number] EAMON OLIVIA ERT PATIENT OPTUM RX PRESCRIPT ION RX Jun 20, 2022 THPRX [id number] EAMON OLIVIA ERT PATIENT OPTUM RX PRESCRIPT ION RX Jun 20, 2022 THPRX [id number] DAVON OLIVIA JR PATIENT [facility] Jun 20, 2017 [id number] [phone] EAMON OLIVIA ERT PATIENT [facility] TON PEÑA E Jun 20, 2017 [id number] DAVON OLIVIA JR PATIENT [facility] TON PEÑA E Jun 20, 2017 [id number] DAVON OLIVIA JR PATIENT [facility] USP Jun 20, 2017 USP [id number] EAMON OLIVIA ERT [facility] Jun 20, 2023 [id number] EAMON OLIVIA ERT PATIENT Selected Encounter This section includes the information on record at [place] for the Encounter. Date/Time Encounter Type Encounter Description Reason Pro vider Source Aug 03, 2023 03:40 PM Outpatient Encounter [facility] PHYSIC EXTND(LITHOGRAPH OPERATOR,CULINARY DIRECTOR,[place]) IHE Encounter Template Text not used [...] 17, 2023 01:00 PM AMBULATORY - MEDICINE [place] C [facility] Oct 17, 2023 01:15 PM [facility] [place] [place] [facility] Dec 26, 2023 11:00 AM AM[place]UL[place]ORY [place]ICINE [place] [facility] Jan 04, 2024 01:00 PM AMBULATORY - NONE [facility] Social History: Smoking Status (Most [...] 19, 2023 12:24 PM VA-TOBACCO NEVER USED [facility] Tobacco Use History This section includes a history of the smoking, or tobacco-related health factors, that were collected on or before the date of the Encounter. The data comes from the [place] facility where the Encounter took place. Date/Time Smoking Status/Tobacco Use Comment F acility Jan 15, 2021 11:00 AM VA-TOBACCO NEVER USED [facility] Advance Directives: All historical and current Section Date Range: From patient's date of to the date document was created. This section includes ALL of a patient's completed or amended [place] Advance and Rescinded Directives. The entries below indicate that a directive exists for the patient, but an actual copy is not included with this document. The data comes from all [place] facilities. Date Advance Directives Provider Source Jan 20, 2021 ADVANCE DIRECTIVE BENTON ARAUZ [facility] Encounter Notes: All associated encounter notes This section contains the clinical notes associated to the Encounter. Date/Time Encounter Note(s) Provider Source Aug 03, 2023 03:40 PM ADMINISTRATIVE NOTE: LOCAL TITLE: FAX/MAIL RECEIVED STANDARD TITLE: ADMINISTRATIVE NOTE DATE OF NOTE: AUG 03, 2023@15:40 ENTRY DATE: AUG 03, 2023@15:40:28 AUTHOR: MARIAH FLORES COSIGNER: URGENCY: STATUS: COMPLETED Document Received On: Jul Document Type: Office Visit Note Date of Service: DEC 03, 2022 Facility and or Provider: [facility] Contact Information: PCP of Record: LUIS FERNANDO FONTANEZ Next visit with PCP: 12/26/2023 11:00 [facility] CARE-NEUROLOGY Primary Care May keep copies of this document for up to 14 days and send the original for scanning. /sharron/ MARIAH GASTON AMSA Signed: 08/03/2023 15:41 Receipt Acknowledged By: 08/03/2023 16:39 /es/ JENNIFER SEGURA [place] SUPERVISOR [facility] MERCHANDISE PLANNER 08/03/2023 16:09 /sharron/ LUIS FERNANDO DIEGOP-C HBDARSHAN NURSE PRACTITIONER MARIAH FLORES CN[facility]L [facility]
--- OUTSIDE RECORDS SUMMARY | 2024-05-30 08:42 | XMS_ITS | Encounter Summary ---
Author Name [facility] [place] Address [address] [place] [address] Care Team Providers Care Lining Vamper Name Role Phone HUSEYIN LUIS FERNANDO Primary [...] PRESCRIPT ION [id number] 1 Jun 20, 2017 [id number] EAMON OLIVIA ERT PATIENT MEDICARE (WNR) MEDICARE (M) PART A Jun 20, 2014 PART A [id number] [phone] EAMON OLIVIA ERT PATIENT MEDICARE (WNR) MEDICARE (M) PART B Jun 20, 2014 PART B [id number] EAMON OLIVIA ERT PATIENT MEDICARE (WNR) MEDICARE (M) PART A Jun 20, 2014 PART A [id number] EAMON OLIVIA ERT PATIENT MEDICARE (WNR) MEDICARE (M) PART B Jun 20, 2014 PART B [id number] EAMON OLIVIA ERT PATIENT OPTUM RX PRESCRIPT ION RX Jun 20, 2023 THPRX [id number] EAMON OLIVIA ERT PATIENT OPTUM RX PRESCRIPT ION RX Jun 20, 2022 THPRX [id number] [phone] EAMON OLIVIA ERT PATIENT OPTUM RX PRESCRIPT ION RX Jun 20, 2022 THPRX [id number] [phone] DAVON OLIVIA JR PATIENT [facility] AugJun 20, 2017 [id number] EAMON OLIVIA ERT PATIENT [facility] TON MARIANA E Jun 20, 2017 [id number] DAVON OLIVIA JR PATIENT [facility] TON PEÑA E Jun 20, 2017 [id number] DAVON OLIVIA JR PATIENT [facility] USP Jun 20, 2017 USP [id number] EAMON OLIVIA ERT PATIENT [facility] Jun 20, 2023 [id number] EAMON OLIVIA ERT PATIENT Selected Encounter This section includes the information on record at [place] for the Encounter. Date/Time Encounter Type Encounter Description Reason Provider Source Aug 23, 2023 11:30 AM CASE MANAGEMENT [facility] - CENTERLESS GRINDER OPERATOR ICD-10-CM Z65.9 Problem related to unspecified psychosocial circumstances KAMILAH MALCOLM IHE Encounter Template Text not used by [place] Assessments - Encounter Diagnoses This section includes the primary and secondary diagnoses documented for the Encounter. Date/Time Primary/Secondary Diagnosis Diagnosis Name Provider Source Aug 25, 2023 09:06 AM PRIMARY Problem related to unspecified psychosocial circumstances KAMILAH MALCOLM PA [facility] Plan of Treatment: [...] AMBULATORY - MEDICINE [place] C NTRL [facility] Oct 17, 2023 01:15 PM AMBULATORY [facility] [place] [facility] Dec 26, 2023 11:00 AM AMBULATORY - MEDICINE [place] C [facility] Jan 04, 2024 01:00 PM [facility] Feb 02, 2024 03:00 PM AMBULATORY - REHAB MEDICIN E PA [facility] Feb 14, 2024 12:30 PM AMBULATORY - [facility] Social History: Smoking Status (Most current) and Tobacco Use (All prior to encounter date) This section includes the most current, and the historical, smoking and tobacco- related health factors from the [place] facility where the Encounter took place. Current Smoking Status This section includes the most current smoking, or tobacco-related health factor, from the [place] facility where the Encounter took place. Date/Time Current Smoking Status Comment Raghu ity Jan 19, 2023 12:24 PM VA-TOBACCO NEVER USED [facility] Tobacco Use History This section includes a history of the smoking, or tobacco-related health factors, that were collected on or before the date of the Encounter. The data comes from the [place] facility where the Encounter took place. Date/Time [...] 2021 ADVANCE DIRECTIVE BENTON ARAUZ CNTRL [facility] Encounter Notes: All associated encounter notes This section contains the clinical notes associated to the Encounter. Date/Time Encounter Note(s) Provider Source Aug 23, 2023 11:30 AM [facility] E & M NOTE: LOCAL TITLE: [facility] SOCIAL WORK NOTE STANDARD TITLE: [facility] E & M NOTE DATE OF NOTE: AUG 23, 2023@11:30 ENTRY DATE: AUG 25, 2023@09:06:13 AUTHOR: KAMILAH MALCOLM COSIGNER: URGENCY: STATUS: COMPLETED No covid concerns prior to visit. Length of visit: 30 Minutes The was identified by name and . The is dealing with Parkinson's Disease, Insomnia, incontinence, and Memory Loss. The was seen today for a supportive visit. The was in the Livingroom sleeping in his recliner. The spouse woke the up. The reported that things continue to go well with him and there are no new needs at this time. [facility] SW was able to speak with the 's caregiver/spouse in the kitchen. She stated that the continues to show progress and is more stable. She stated that he has experienced less bed wedding incidents and she is able to get more sleep than she has in the past. Caregiver confirmed she continues to be connected with [facility]. She stated that she is also starting a breathing course called [employer] to assist with breathing techniques to assist with treating anxiety. She stated that this is a program paid for by their Health Insurance [employer] through [employer]. [facility] PT: Bathroom accommodations has been made to the home. The caregiver expressed that she is able to bath the and get him in and out of the walk in shower much easier. She is pleased with the changes as they help to meet the 's daily needs. The has a shower chair as well. Home Purchased Care SW: Caregiver expressed some frustration with current CREDIT ASSESSMENT ANALYST Agency. She stated that their current CREDIT ASSESSMENT ANALYST changed his hours and they were never informed of the changes by the agency. She stated that this left them waiting for the CREDIT ASSESSMENT ANALYST, when he was in fact not scheduled to come to the home. She stated that the concern was that the CREDIT ASSESSMENT ANALYST informed the agency of his availability but the agency never communicated this to the family. She stated that there are no actions needed at this time as she has been in contact with the agency. She stated that if the agency is unable to effectively communicate changed to her then she may look for assistance with the situation, but again no actions needed at this time. Next supportive visit scheduled 10/20/22. Caregiver agreeable to Bi-monthly supportive visits. /sharron/ OLEG Sandhu [facility] Technical Support Director Signed: 08/25/2023 09:18 Receipt Acknowledged By: 08/25/2023 09:30 /sharron/ OLEG JOAQUIN PURCHASED ASSOCIATE SCHOOL PSYCHOLOGIST 08/25/2023 09:42 /sharron/ RAMIN MENDIETA, PT, MS, ATP [facility] Physical Therapist KAMILAH MALCOLM PA CNTRL W[facility]N [facility]
--- OUTSIDE RECORDS SUMMARY | 2024-05-30 08:43 | XMS_ITS | Encounter Summary ---
Author Name [facility] [place] [place] [facility] [place] Address [address] [place] [address] Care Team Providers Care House Decorator Name Role Phone LUIS FERNANDO FONTANEZ Primary [...] ALT ION [id number] 1 Jun 20, 2017 [id number] EAMON OLIVIA ERT PATIENT MEDICARE (WNR) MEDICARE (M) PART A Jun 20, 2014 PART A [id number] EAMON OLIVIA ERT PATIENT MEDICARE (WNR) MEDICARE (M) PART B Jun 20, 2014 PART B [id number] EAMON OLIVIA ERT PATIENT MEDICARE (WNR) MEDICARE (M) PART A Jun 20, 2014 PART A [id number] EAMON OLIVIA ERT PATIENT MEDICARE (WNR) MEDICARE (M) PART B Jun 20, 2014 PART B [id number] [phone] EAMON OLIVIA ERT PATIENT OPTUM RX PRESCRIPT ION RX Jun 20, 2023 THPRX [id number] EAMON OLIVIA ERT PATIENT [facility] RX PRESCRIPT ION RX Jun 20, 2022 THPRX [id number] [phone] EAMON OLIVIA ERT PATIENT [facility] RX PRESCRIPT ION RX Jun 20, 2022 THPRX [id number] [phone] DAVON OLIVIA JR PATIENT [facility] AugJun 20, 2017 [id number] EAMON OLIVIA ERT PATIENT [facility] Jun 20, 2017 [id number] DAVON OLIVIA JR PATIENT [facility] E Jun 20, 2017 [id number] [phone] DAVON OLIVIA JR PATIENT [facility] Jun 20, 2017 [facility] [id number] EAMON OLIVIA ERT PATIENT [facility] Jun 20, 2023 [id number] EAMON OLIVIA ERT PATIENT Selected Encounter This section includes the information on record at [place] for the Encounter. Date/Time Encounter Type Encounter Description Reason Provider Source Aug 31, 2023 10:15 AM ADMN SARSCOV2 VACC 1 DOSE [facility] Nursing (RN / LP) ICD-10-CM G20.C Parkinsonism, unspecified RISING,JENNIFER L IHE Encounter Template Text not used by [place] Assessments - Encounter Diagnoses This section includes the primary and secondary diagnoses documented for the Encounter. Date/Time Primary/Secondary Diagnosis Diagnosis Name Provider Source Sep 01, 2023 02:11 PM PRIMARY Parkinsonism, unspecified RISING,JIE Clarke [place] [facility] [place] [facility] Sep 01, 2023 02:11 PM SECONDARY Encounter for immunization JIE SEGURA [place] [facility] [place] [facility] Sep 01, 2023 02:11 PM SECONDARY Insomnia, unspecified RISING,GUILLERMOHE R L [place] [facility] [place] [facility] Sep 01, 2023 02:11 PM SECONDARY Unspecified urinary incontinence RISING,GUILLERMOHE R L [place] [facility] [facility] Plan of Treatment: Future Appointments (+ 6 months) and Future Tests (+/- 45 days) The Plan of Treatment section includes future care activities for the patient from all [place] treatmentfacilities. This section includes future appointments and [...] 17, 2023 01:00 PM AMBULATORY - MEDICINE [place] [facility] [place] [facility] Oct 17, 2023 01:15 PM AMBULATORY - MEDICINE [place] [facility] [facility] Dec 26, 2023 11:00 AM AMBULATORY - MEDICINE [place] [facility] [place] [facility] Jan 04, 2024 01:00 PM AMBULATORY - NONE [place] [facility] [facility] Feb 02, 2024 03:00 PM AMBULATORY - REHAB MEDICIN E [place] [facility] [place] [facility] Feb 14, 2024 12:30 PM AMBULATORY - REHAB MEDICIN E [place] [facility] [facility] Vital Signs: All taken on the encounter date This section contains inpatient and outpatient Vital Signs collected on the date of the Encounter. Date/Time Temperature Pulse Blood Pressure Respiratory Rate SP02 Pain Height Weight Body Mass Index Source Aug 31, 2023 10:15 AM 97.4 58 108/62 16 97 0 [place] [facility] [facility] Immunizations: All administered on the encounter date This section contains immunizations associated to the Encounter. Immunization Series Date Issued Reaction Comments COVID-19 (MODERNA), MRNA, LN P-S, PF, 50 MCG/0.5 ML (AGES 12+ YEARS) Aug 31, 2023 Social History: Smoking Status (Most current) and Tobacco Use (All prior to encounter date) This section includes the most current, and the historical, smoking and tobacco- related health factors from the [place] facility where the Encounter took place. Current Smoking Status This section includes the most current smoking, or tobacco-related health factor, from the [place] facility where the Encounter took place. Date/Time Current Smoking Status Comment Raghu melchor Jan 19, 2023 12:24 PM VA-TOBACCO NEVER USED [facility] Tobacco Use History This section includes a history of the smoking, or tobacco-related health factors, that were collected on or before the date of the Encounter. The data comes from the [place] facility where the Encounter took place. Date/Time Smoking Status/Tobacco Use Comment Flex acility Jan 15, 2021 11:00 AM VA-TOBACCO NEVER USED [facility] Advance Directives: All historical and [...] Jan 20, 2021 ADVANCE DIRECTIVE [facility] Encounter Notes: All associated encounter notes This section contains the clinical notes associated to the Encounter. Date/Time Encounter Note(s) Provider Source Sep 01, 2023 02:13 PM ADDENDUM: LOCAL TITLE: Addendum STANDARD TITLE: ADDENDUM DATE OF NOTE: SEP 01, 2023@14:13:26 ENTRY DATE: SEP 01, 2023@14:13:27 AUTHOR: JENNIFER SEGURA EXP COSIGNER: URGENCY: STATUS: COMPLETED Bathroom remolding completed 2 weeks ago, walk in shower working out great. Spouse reports it has made a world of difference. Spouse requesting lightweight aluminum folding shower chair. having difficulty transferring on and off tub bench, a safety issue. [facility] PT to make recommendations. /sharron/ JENNIFER SEGURA NETWORK PROFESSIONAL [facility] APPRENTICE MACHINIST OUTSIDE Signed: 09/01/2023 14:13 Receipt Acknowledged By: 09/01/2023 17:28 /sharron/ RAMIN MENDIETA PT, MS, ATP [facility] Physical Therapist --- Original Document --- 08/31/23 [facility] RN PROGRESS NOTE: Nursing Progress Note Active [...] Facial Recognition Length of visit in home: 45 Minutes Problem addressed for this visit: PD, Bathroom safety/equipment, meds, administer covid vaccine Specimen(s) collected during this visit: None NURSING SUMMARY: RNCM made home visit for chronic disease management, c/v and c/p assessment, med oversight/review, neuro assessment, administer covid vaccine, bathroom equipment. Spouse greeted this flex o writer operator at the door. Wickliffe in the living room napping in recliner. Spouse reports is doing well no falls, infections, hospitalizations since last home visit. Sleeping much better at night with decrease dose of melatonin 15mg. Improvement with wakefulness during the day. Sleeps with mouth open, spouse requesting artificial saliva spray. Bathroom remolding completed 2 weeks ago, walk in shower working out great. Spouse reports it has made a world of difference. Spouse requesting lightweight aluminum folding shower chair. [place]fe having difficulty transferring on and off tub bench, a safety issue. [facility] PT to make recommendations. [place]fe resting comfortable in recliner with legs elevated. Well groomed. Dressed appropriately. Poor eye contact. Relies on spouse to answer questions. Speech clear, voice soft and monotone, but able to understand. Neuros- followed up with Dr. Fabby Donahue at [facility] on 06/23/22. Vet to follow up in 6 months. Seen by Geriatric Psych 07/19. No med changes. No follow up appt. Dysphagia- Appetite good, adequate fluid intake. finely chops all foods, Drinking fluids without difficulty. Reports no choking episodes. Caregiver burden, involved in caregiver support group which she finds a good outlet. Blood pressure stable 108/62 at rest. Denies chest pain, palpations, dizziness and lightheadedness. On blood thinner denies any bleeding. Reviewed bleeding precautions. manages and administers meds in pudding or applesauce, swallowing pills without difficulty. Updated med list left in home. RNCM administered Covid Spikevax vaccine into right deltoid without difficulty. tolerated well. No bleeding at injection site, covered with band aid Blood Pressure: 108/62 (08/31/2023 10:15) Pulse: 58 (08/31/2023 10:15) Respiration: 16 (08/31/2023 10:15) Temperature: 97.4 F [36.3 C] (08/31/2023 10:15) Pain Score: 0 (08/31/2023 10:15) EXAMINATION: Lungs: Ls clear throughout. Resp easy and reg. Edema: PPP, No edema HR: Strong and reg. Denies chest pain, palpations, dizziness. Bowel/Bladder: Incontinent of urine. uses quick change urine management wrap with oversized poise pad. Occasional incontinence of stool. Denies diarrhea/constipation. Skin: Clean, dry and intact. No skin breakdown Home Safety FALLS NO INFECTIONS NO ER/HOSPITALIZATIONS NO Teaching/goals: Refer to nursing summary. 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 For emergent care call 911. Revisit: Tentative 09/27 for chronic disease management, neuro assessment, c/v an dc/p assessment, med review, /ZACHARIAH Rodriguez APPRENTICE MACHINIST OUTSIDE Signed: 09/01/2023 14:11 09/01/2023 ADDENDUM STATUS: COMPLETED Spouse requesting artificial saliva spray. sleeps with mouth open and has dry mouth. /ZACHARIAH Rodriguez APPRENTICE MACHINIST OUTSIDE Signed: 09/01/2023 14:12 Receipt Acknowledged By: * AWAITING SIGNATURE * LUIS FERNANDO FONTANEZ HEATHER L [place] [facility] [facility] Sep 01, 2023 02:11 PM ADDENDUM: LOCAL TITLE: Addendum STANDARD TITLE: ADDENDUM DATE OF NOTE: SEP 01, 2023@14:11:58 ENTRY DATE: SEP 01, 2023@14:11:59 AUTHOR: JENNIFER SEGURA EXP COSIGNER: URGENCY: STATUS: COMPLETED Spouse requesting artificial saliva spray. [place]liffe sleeps with mouth open and has dry mouth. /ZACHARIAH Rodriguez APPRENTICE MACHINIST OUTSIDE Signed: 09/01/2023 14:12 Receipt Acknowledged By: 09/02/2023 11:32 /consuelo FONTANEZ MACHINE ZIPPER TRIMMER-C [facility] NURSE PRACTITIONER --- Original Document --- 08/31/23 HB RN PROGRESS NOTE: Nursing Progress Note [...] in patient's home at time of visit. Wickliffe identified by: Full Name, Facial Recognition Length of visit in home: 45 Minutes Problem addressed for this visit: PD, Bathroom safety/equipment, meds, administer covid vaccine Specimen(s) collected during this visit: None NURSING SUMMARY: RNCM made home visit for chronic disease management, c/v and c/p assessment, med oversight/review, neuro assessment, administer covid vaccine, bathroom equipment. Spouse greeted this flex o writer operator at the door. in the living room napping in recliner. Spouse reports Wickliffe is doing well no falls, infections, hospitalizations since last home visit. Sleeping much better at night with decrease dose of melatonin 15mg. Improvement with wakefulness during the day. Sleeps with mouth open, spouse requesting artificial saliva spray. Bathroom remolding completed 2 weeks ago, walk in shower working out great. Spouse reports it has made a world of difference. Spouse requesting lightweight aluminum folding shower chair. [place]fe having difficulty transferring on and off tub bench, a safety issue. [facility] PT to make recommendations. Wickliffe resting comfortable in recliner with legs elevated. Well groomed. Dressed appropriately. Poor eye contact. Relies on spouse to answer questions. Speech clear, voice soft and monotone, but able to understand. Neuros- followed up with Dr. Fabby Donahue at [facility] on 06/23/22. Vet to follow up in 6 months. Seen by Geriatric Psych 07/19. No med changes. No follow up appt. Dysphagia- Appetite good, adequate fluid intake. finely chops all foods, Drinking fluids without difficulty. Reports no choking episodes. Caregiver burden, involved in caregiver support group which she finds a good outlet. Blood pressure stable 108/62 at rest. Denies chest pain, palpations, dizziness and lightheadedness. On blood thinner denies any bleeding. Reviewed bleeding precautions. manages and administers meds in pudding or applesauce, swallowing pills without difficulty. Updated med list left in home. RNCM administered Covid Spikevax vaccine into right deltoid without difficulty. tolerated well. No bleeding at injection site, covered with band aid Blood Pressure: 108/62 (08/31/2023 10:15) Pulse: 58 (08/31/2023 10:15) Respiration: 16 (08/31/2023 10:15) Temperature: 97.4 F [36.3 C] (08/31/2023 10:15) Pain Score: 0 (08/31/2023 10:15) EXAMINATION: Lungs: Ls clear throughout. Resp easy and reg. Edema: PPP, No edema HR: Strong and reg. Denies chest pain, palpations, dizziness. Bowel/Bladder: Incontinent of urine. uses quick change urine management wrap with oversized poise pad. Occasional incontinence of stool. Denies diarrhea/constipation. Skin: Clean, dry and intact. No skin breakdown Home Safety FALLS NO INFECTIONS NO ER/HOSPITALIZATIONS NO Teaching/goals: Refer to nursing summary. goal is to live at home safely with his as long as possible with assist from his and [facility], [facility] Patient verbalizes understanding to above and will call with any concerns or changes in condition. For emergent care call 911. Revisit: Tentative 09/27 for chronic disease management, neuro assessment, c/v an dc/p assessment, med review, /consuelo SEGURA NETWORK PROFESSIONAL [facility] APPRENTICE MACHINIST OUTSIDE Signed: 09/01/2023 14:11 09/01/2023 ADDENDUM STATUS: COMPLETED Bathroom remolding completed 2 weeks ago, walk in shower working out great. Spouse reports it has made a world of difference. Spouse requesting lightweight aluminum folding shower chair. [place]fe having difficulty transferring on and off tub bench, a safety issue. [facility] PT to make recommendations. /ZACHARIAH Rodriguez HB APPRENTICE MACHINIST OUTSIDE Signed: 09/01/2023 14:13 Receipt Acknowledged By: 09/01/2023 17:28 /sharron/ RAMIN MENDIETA, PT, MS, ATP [facility] Physical Therapist JENNIFER SEGURA [facility] [place] [facility] Aug 31, 2023 10:15 AM [facility] NURSING NOTE: LOCAL TITLE: [facility] RN PROGRESS NOTE STANDARD TITLE: [facility] NURSING NOTE DATE OF NOTE: AUG 31, 2023@10:15 ENTRY DATE: AUG 31, 2023@14:41:51 AUTHOR: JENNIFER SEGURA EXP COSIGNER: URGENCY: STATUS: COMPLETED [facility] RN PROGRESS NOTE Has ADDENDA Nursing Progress [...] in patient's home at time of visit. Wickliffe identified by: Full Name, Facial Recognition Length of visit in home: 45 Minutes Problem addressed for this visit: PD, Bathroom safety/equipment, meds, administer covid vaccine Specimen(s) collected during this visit: None NURSING SUMMARY: RNCM made home visit for chronic disease management, c/v and c/p assessment, med oversight/review, neuro assessment, administer covid vaccine, bathroom equipment. Spouse greeted this flex o writer operator at the door. in the living room napping in recliner. Spouse reports is doing well no falls, infections, hospitalizations since last home visit. Sleeping much better at night with decrease dose of melatonin 15mg. Improvement with wakefulness during the day. Sleeps with mouth open, spouse requesting artificial saliva spray. Bathroom remolding completed 2 weeks ago, walk in shower working out great. Spouse reports it has made a world of difference. Spouse requesting lightweight aluminum folding shower chair. Wickliffe having difficulty transferring on and off tub bench, a safety issue. [facility] PT to make recommendations. resting comfortable in recliner with legs elevated. Well groomed. Dressed appropriately. Poor eye contact. Relies on spouse to answer questions. Speech clear, voice soft and monotone, but able to understand. Neuros- [place] followed up with Dr. Fabby Donahue at [facility] on 06/23/22. Vet to follow up in 6 months. Seen by Geriatric Psych 07/19. No med changes. No follow up appt. Dysphagia- Appetite good, adequate fluid intake. finely chops all foods, Drinking fluids without difficulty. Reports no choking episodes. Caregiver burden, involved in caregiver support group which she finds a good outlet. Blood pressure stable 108/62 at rest. Denies chest pain, palpations, dizziness and lightheadedness. On blood thinner denies any bleeding. Reviewed bleeding precautions. manages and administers meds in pudding or applesauce, swallowing pills without difficulty. Updated med list left in home. RNCM administered Covid Spikevax vaccine into right deltoid without difficulty. Wickliffe tolerated well. No bleeding at injection site, covered with band aid Blood Pressure: 108/62 (08/31/2023 10:15) Pulse: 58 (08/31/2023 10:15) Respiration: 16 (08/31/2023 10:15) Temperature: 97.4 F [36.3 C] (08/31/2023 10:15) Pain Score: 0 (08/31/2023 10:15) EXAMINATION: Lungs: Ls clear throughout. Resp easy and reg. Edema: PPP, No edema HR: Strong and reg. Denies chest pain, palpations, dizziness. Bowel/Bladder: Incontinent of urine. uses quick change urine management wrap with oversized poise pad. Occasional incontinence of stool. Denies diarrhea/constipation. Skin: Clean, dry and intact. No skin breakdown Home Safety FALLS NO INFECTIONS NO ER/HOSPITALIZATIONS NO Teaching/goals: Refer to nursing summary. goal is to live at home safely with his as long as possible with assist from his and [facility], [facility] Patient verbalizes understanding to above and will call with any concerns or changes in condition. For emergent care call 911. Revisit: Tentative 09/27 for chronic disease management, neuro assessment, c/v an dc/p assessment, med review, /sharron/ JENNIFER SEGURA NETWORK PROFESSIONAL HB APPRENTICE MACHINIST OUTSIDE Signed: 09/01/2023 14:11 09/01/2023 ADDENDUM STATUS: COMPLETED Spouse requesting artificial saliva spray. Wickliffe sleeps with mouth open and has dry mouth. /ZACHARIAH Rodriguez [facility] APPRENTICE MACHINIST OUTSIDE Signed: 09/01/2023 14:12 Receipt Acknowledged By: * AWAITING SIGNATURE * HUSEYINLUIS FERNANDO Ginna 09/01/2023 ADDENDUM STATUS: COMPLETED Bathroom remolding completed 2 weeks ago, walk in shower working out great. Spouse reports it has made a world of difference. Spouse requesting lightweight aluminum folding shower chair. [place]fe having difficulty transferring on and off tub bench, a safety issue. [facility] PT to make recommendations. /ZACHARIAH Rodriguez [facility] APPRENTICE MACHINIST OUTSIDE Signed: 09/01/2023 14:13 Receipt Acknowledged By: * AWAITING SIGNATURE * RAMIN MENDIETA HEATHER L [facility]
--- OUTSIDE RECORDS SUMMARY | 2024-05-30 08:43 | XMS_ITS ---
Author Name [facility] [place] [facility] [place] Address [address] [place] [address] Care Team Providers Care Building Official Name Role Phone LUIS FERNANDO FONTANEZ Primary [...] PRESCRIPT ION [id number] 1 Jun 20, 2017 [id number] EAMON OLIVIA ERT PATIENT MEDICARE (WNR) MEDICARE (M) PART A Jun 20, 2014 PART A [id number] [phone] EAMON OLIVIA ERT PATIENT MEDICARE (WNR) MEDICARE (M) PART B Jun 20, 2014 PART B [id number] [phone] EAMON OLIVIA ERT PATIENT MEDICARE (WNR) MEDICARE (M) PART A Jun 20, 2014 PART A [id number] [phone] EAMON OLIVIA ERT PATIENT MEDICARE (WNR) MEDICARE (M) PART B Jun 20, 2014 PART B [id number] [facility] EAMON OLIVIA ERT PATIENT OPTUM RX PRESCRIPT ION RX Jun 20, 2023 THPRX [id number] EAMON OLIVIA ERT PATIENT OPTUM RX PRESCRIPT ION RX Jun 20, 2022 THPRX [id number] [phone] EAMON OLIVIA ERT PATIENT OPTUM RX PRESCRIPT ION RX Jun 20, 2022 THPRX [id number] DAVON OLIVIA JR PATIENT [facility] AugJun 20, 2017 [id number] EAMON OLIVIA ERT PATIENT [facility] [place] E Jun 20, 2017 [id number] DAVON OLIVIA JR PATIENT [facility] PE[facility] E Jun 20, 2017 [id number] [phone] DAVON OLIVIA JR PATIENT [facility] USP Jun 20, 2017 [facility] [id number] [phone] EAMON OLIVIA ERT PATIENT [facility] Jun 20, 2023 [id number] EAMON OLIVIA ERT PATIENT Selected Encounter This section includes the information on record at [place] for the Encounter. Date/Time Encounter Type Encounter Description Reason Provider Source Sep 05, 2023 10:30 AM HHCP-SERV OF PT,EA 15 MIN [facility] - THERAPIST ICD-10-CM G20.C Parkinsonism, unspecified RAIVEL,RAMIN IHE Encounter Template Text not used by [place] Assessments - Encounter Diagnoses This section includes the primary and secondary diagnoses documented for the Encounter. Date/Time Primary/Secondary Diagnosis Diagnosis Name Provider Source Sep 08, 2023 08:45 AM PRIMARY Parkinsonism, unspecified RAIVEL,RAMIN [place] [facility] [place] [facility] Plan of Treatment: Future Appointments (+ [...] 17, 2023 01:00 PM AMBULATORY - MEDICINE [place] [facility] Oct 17, 2023 01:15 PM [facility] [place] [facility] Dec 26, 2023 11:00 AM AMBULATORY - MEDICINE [place] [facility] [facility] [place] [facility] Jan 04, 2024 01:00 PM AMBUL[facility]ORY - NONE [place] [facility] Feb 02, 2024 03:00 PM AMBULAT[facility] - [facility] [place] [facility] Feb 14, 2024 12:30 PM [facility] Social History: Smoking Status (Most current) [...] 2023 12:24 PM VA-TOBACCO NEVER USED [facility] Tobacco Use History This section includes a history of the smoking, or tobacco-related health factors, that were collected on or before the date of the Encounter. The data comes from the [place] facility where the Encounter took place. Date/Time Smoking Status/Tobacco Use Comment F acility Jan 15, 2021 11:00 AM [place]-TOBACCO NEVER USED [facility] Advance Directives: All historical and [...] 20, 2021 ADVANCE DIRECTIVE BENTON ARAUZ [facility] Encounter Notes: All associated encounter notes This section contains the clinical notes associated to the Encounter. Date/Time Encounter Note(s) Provider Source Sep 05, 2023 10:30 AM HB NOTE: LOCAL TITLE: HBPC PHYSICAL THERAPY NOTE STANDARD TITLE: HB NOTE DATE OF NOTE: SEP 05, 2023@10:30 ENTRY DATE: SEP 08, 2023@08:37:33 AUTHOR: RAMIN MENDIETA EXP COSIGNER: URGENCY: STATUS: COMPLETED HB Physical Therapy Note Date: 09/05/23 Time: 10:30 am Diagnosis: parkinsonism, unspecified Treatment Diagnosis: As above, plus Active problems - Computerized Problem List is the source for the followin. Exposure to potentially hazardous substance 2. Long-term current use of anticoagulant 3. Gingivitis 4. Parkinsonism 5. Squamous cell carcinoma of skin 6. Basal cell carcinoma of skin 7. Hypotension 8. Benign prostatic hyperplasia 9. Hematuria 10. Diverticular disease of colon 11. Internal hemorrhoids 12. REM sleep behavior disorder 13. Peripheral vascular disease 14. Migraine 15. Solitary nodule of lung 16. Dupuytren's contracture 17. Multiple renal cysts 18. Atrial flutter 19. History of deep vein thrombosis 20. Memory loss 21. Sundowning 22. Urinary incontinence 23. Insomnia 24. Gastroesophageal reflux disease 25. AF- Atrial Fibrillation (RUST [id number]) 26. Parkinson's disease 27. Kidney Stone (RUST [id number]) Patient identified by facial recognition and address SUBJECTIVE: no complaints OBJECTIVE: GENERAL: Session conduced with Rick Shower Chair Manufacture Community Representative PAIN: Prior to treatment - none After treatment - none If > 3/10, intervention - If > 3/10, provider notified - VITAL SIGNS: deferred FALLS: patient denies any recent falls TREATMENT: PT in the Home - evaluated use of Rick Shower Wheelchair (standard, no tilt). Patient transferred stand pivot in/out of chair. Ensured that chair fit into bathroom and into shower stall. Educated spouse on use of chair. ASSESSMENT: Patient is a 73 year old with parkinsonism unspecified who would benefit from a Rick Shower Wheelchair, standard version without tilt, standard cushion, 5 casters, seat opening to the front. Will oder this chair and deliver to home with assist of Manufacture Community Representative. WHOLE HEALTH WHOLE HEALTH EDUCATION Whole Health Education was provided. COACHING SKILLS Coaching or Motivational Interviewing skills used. SHORT-TERM GOALS Moving the body New Goal Spouse independent in use of Shower Wheelchair or bathing within 2 months. VISIT INFORMATION Met with individual: In-person Length of Visit: 30 minutes PLAN Individual agreed to follow-up: Follow-up will occur: when shower wheelchair is delivered /sharron/ RAMIN MENDIETA PT, MS, ATP [facility] Physical Therapist Signed: 09/08/2023 08:45 RAMIN MENDIETA CN[facility]
--- OUTSIDE RECORDS SUMMARY | 2024-05-30 08:43 | XMS_ITS ---
Author Name [facility] [place] [facility] [place] Organization [facility] [place] Address [address] [place] [address] Care Team Providers Care Camera Person Name Role Phone LUIS FERNANDO FONTANEZ Primary [...] PRESCRIPT ION [id number] 1 Jun 20, 2017 [id number] EAMON OLIVIA ERT PATIENT MEDICARE (WNR) MEDICARE (M) PART A Jun 20, 2014 PART A [id number] [phone] EAMON OLIVIA ERT PATIENT MEDICARE (WNR) MEDICARE (M) PART B Jun 20, 2014 PART B [id number] EAMON OLIVIA ERT PATIENT MEDICARE (WNR) MEDICARE (M) PART A Jun 20, 2014 PART A [id number] [phone] EAMON OLIVIA ERT PATIENT MEDICARE (WNR) MEDICARE (M) PART B Jun 20, 2014 PART B [id number] EAMON OLIVIA ERT PATIENT OPTUM RX PRESCRIPT ION RX Jun 20, 2023 THPRX [id number] EAMON OLIVIA ERT PATIENT OPTUM RX PRESCRIPT ION RX Jun 20, 2022 THPRX [id number] EAMON OLIVIA ERT PATIENT OPTUM RX PRESCRIPT ION RX Jun 20, 2022 THPRX [id number] [phone] DAVON OLIVIA JR PATIENT [facility] TON AugJun 20, 2017 [id number] EAMON OLIVIA ERT PATIENT [facility] [place] E Jun 20, 2017 [id number] [phone] DAVON OLIVIA JR PATIENT [facility] E Jun 20, 2017 [id number] [phone] DAVON OLIVIA JR PATIENT [facility] USP Jun 20, 2017 USP [id number] EAMON OLIVIA ERT PATIENT [facility] Jun 20, 2023 [id number] EAMON OLIVIA ERT PATIENT Selected Encounter This section includes the information on record at [place] for the Encounter. Date/Time Encounter Type Encounter Description Reason Pro vider Source Sep 01, 2023 08:24 AM Outpatient Encounter [facility] PHYSIC EXTND(GROUP MARKETING VP,SEO EXECUTIVE,PA) IHE Encounter Template Text not used by [...] AMBULATORY - [facility] [place] [facility] Oct 17, 2023 01:15 PM AMBULATORY - [place] [place] [facility] Dec 26, 2023 11:00 AM AMBULATORY - [facility]ICINE [place] [facility] Jan 04, 2024 01:00 PM AMBULATORY - NONE [place] [facility] Feb 02, 2024 03:00 PM AMBULATORY - REHAB MEDICIN E [facility] Feb 14, 2024 12:30 PM AMBULAT[facility] - [facility] Social History: Smoking Status (Most current) and [...] 19, 2023 12:24 PM VA-TOBACCO NEVER USED [facility] Tobacco Use History This section includes a history of the smoking, or tobacco-related health factors, that were collected on or before the date of the Encounter. The data comes from the [place] facility where the Encounter took place. Date/Time Smoking Status/Tobacco Use Comment F acility Jan 15, 2021 11:00 AM VA-TOBACCO NEVER USED [facility] Advance Directives: All historical and [...] Jan 20, 2021 ADVANCE DIRECTIVE BENTON ARAUZ [facility] Encounter Notes: All associated encounter notes This section contains the clinical notes associated to the Encounter. Date/Time Encounter Note(s) Provider Source Sep 01, 2023 08:24 AM ADMINISTRATIVE NOTE: LOCAL TITLE: FAX/MAIL RECEIVED STANDARD TITLE: ADMINISTRATIVE NOTE DATE OF NOTE: SEP 01, 2023@08:24 ENTRY DATE: SEP 01, 2023@08:24:06 AUTHOR: MARIAH FLORES EXP COSIGNER: URGENCY: STATUS: COMPLETED Document Received On: Aug Document Type: Office Visit Note Date of Service: NOV 23, 2022 Facility and or Provider: [facility] Contact Information: PCP of Record: LUIS FERNANDO FONTANEZ Next visit with PCP: 12/26/2023 11:00 [facility] CARE-NEUROLOGY Primary Care May keep copies of this document for up to 14 days and send the original for scanning. /sharron/ MARIAH FLORES [facility] AMSA Signed: 09/01/2023 08:24 Receipt Acknowledged By: 09/01/2023 09:26 /sharron/ JENNIFER SEGURA, POKER SUPERVISOR HBPC HIM MANAGER 09/01/2023 14:28 /sharron/ LUIS FERNANDO FONTANEZ MEDICAL COORDINATOR PESTICIDE USE-C [facility]PC NURSE PRACTITIONER MARIAH FLORES [facility]
--- OUTSIDE RECORDS SUMMARY | 2024-05-30 08:43 | XMS_ITS ---
Author Name [facility] [place] [facility] [place] [facility] Address [address] [place] [address] Care Team Providers Care Rand Sewer Name Role Phone LUIS FERNANDO FONTANEZ Primary [...] PRESCRIPT ION [id number] 1 Jun 20, 2017 [id number] [phone] EAMON OLIVIA ERT PATIENT MEDICARE (WNR) MEDICARE (M) PART A Jun 20, 2014 PART A [id number] [phone] EAMON OLIVIA ERT PATIENT MEDICARE (WNR) MEDICARE (M) PART B Jun 20, 2014 PART B [id number] [phone] EAMON OLIVIA ERT PATIENT MEDICARE (WNR) MEDICARE (M) PART B Jun 20, 2014 PART B [id number] EAMON OLIVIA ERT PATIENT MEDICARE (WNR) MEDICARE (M) PART A Jun 20, 2014 PART A [id number] EAMON OLIVIA ERT PATIENT OPTUM RX PRESCRIPT ION RX Jun 20, 2023 THPRX [id number] EAMON OLIVIA ERT PATIENT OPTUM RX PRESCRIPT ION RX Jun 20, 2022 THPRX [id number] [phone] EAMON OLIVIA ERT PATIENT OPTUM RX PRESCRIPT ION RX Jun 20, 2022 THPRX [id number] [phone] DAVON OLIVIA JR PATIENT [facility] T[facility] AugJun 20, 2017 [id number] [phone] EAMON OLIVIA ERT PATIENT [facility] PE[facility] E Jun 20, 2017 [id number] DAVON OLIVIA JR PATIENT [facility] PE[facility] E Jun 20, 2017 [id number] DAVON OLIVIA JR PATIENT [facility] Jun 20, 2017 USP [id number] EAMON OLIVIA ERT PATIENT [facility] Jun 20, 2023 [id number] EAMON OLIVIA ERT PATIENT Selected Encounter This section includes the information on record at [place] for the Encounter. Date/Time Encounter Type Encounter Description Reason Pro vider Source Sep 01, 2023 11:46 AM Outpatient Encounter [facility] PHYSIC EXTND(RN ENTEROSTOMAL,JUNIOR BUSINESS ANALYST,PA) IHE Encounter Template Text not used by [place] Plan of Treatment: Future Appointments (+ 6 months) and Future Tests (+/- 45 days) The Plan of Treatment section includes future care activities for the patient from all [place] treatmentfacilities. This section includes future appointments and future orders which are active, pending or scheduled. Future Appointments This section includes appointments that were scheduled to occur 6 months from the date of the Encounter, up to a maximum of 20 appointments. The data comes from all [place] treatment facilities. Appointment Date/Time Appointment Type Appointme nt Facility Name Oct 17, 2023 01:00 PM AMBULATORY [facility] [place] [facility] Oct 17, 2023 01:15 PM AMBULATORY - [facility]ICINE [place] [facility] Dec 26, 2023 11:00 AM AMBULATORY - [facility]ICINE [place] [facility] Jan 04, 2024 01:00 PM AMBULATORY - NONE [place] [facility] Feb 02, 2024 03:00 PM AMBULATORY - REHAB MEDICIN E [facility] Feb 14, 2024 12:30 PM [facility] Social History: Smoking Status (Most current) and Tobacco Use (All prior to encounter date) This section includes the most current, and the historical, smoking and tobacco- related health factors from the [place] facility where the Encounter took place. Current Smoking Status This section includes the most current smoking, or tobacco-related health factor, from the [place] facility where the Encounter took place. Date/Time Current Smoking Status Comment Raghu ity Jan 19, 2023 12:24 PM VA-TOBACCO NEVER USED [facility] Tobacco Use History This section includes a history of the smoking, or tobacco-related health factors, that were collected on or before the date of the Encounter. The data comes from the [place] facility where the Encounter took place. Date/Time Smoking Status/Tobacco Use Comment F acility Jan 15, 2021 11:00 AM VA-TOBACCO NEVER USED [facility] Advance Directives: All historical and current Section Date Range: From patient's date of to the date document was created. This section includes ALL of a patient's completed or amended [place] Advance and Rescinded Directives. The entries below indicate that a directive exists for the patient, but an actual copy is not included with this document. The data comes from all [place] facilities. Date Advance Directives Provider Source Jan 20, 2021 ADVANCE DIRECTIVE BENTON ARAUZ [facility] Encounter Notes: All associated encounter notes This section contains the clinical notes associated to the Encounter. Date/Time Encounter Note(s) Provider Source Sep 01, 2023 11:46 AM ADMINISTRATIVE NOTE: LOCAL TITLE: FAX/MAIL RECEIVED STANDARD TITLE: ADMINISTRATIVE NOTE DATE OF NOTE: SEP 01, 2023@11:46 ENTRY DATE: SEP 01, 2023@11:46:27 AUTHOR: MARIAH FLORES EXP COSIGNER: URGENCY: STATUS: COMPLETED Document Received On: Aug Document Type: Office Visit Note Date of Service: Jun Facility and or Provider: [facility] Contact Information: PCP of Record: LUIS FERNANDO FONTANEZ Next visit with PCP: 12/26/2023 11:00 [facility] CARE-NEUROLOGY Primary Care May keep copies of this document for up to 14 days and send the original for scanning. /sharron/ MARIAH FLORES [facility] AMSA Signed: 09/01/2023 11:47 Receipt Acknowledged By: 09/01/2023 19:11 /sharron/ JENNIFER SEGURA INSURANCE EXECUTIVE [facility] CONTRACTING OFFICER 09/01/2023 14:17 /sharron/ LUIS FERNANDO FONTANEZ CUSTOMER SERVICE TELLER-C [facility] NURSE PRACTITIONER MARIAH FLORES [place] [facility]
--- OUTSIDE RECORDS SUMMARY | 2024-05-30 08:43 | XMS_ITS | Encounter Summary ---
Author Name [facility] Organization [facility] Address [address] [place] [id number] Care Team Providers Care Disease And Insect Control Boss Name Role Phone HUSEYIN LUIS FERNANDO Primary [...] PRESCRIPT ION [id number] 1 Jun 20, 2017 [id number] [phone] EAMON OLIVIA ERT PATIENT MEDICARE (WNR) MEDICARE (M) PART A Jun 20, 2014 PART A [id number] EAMON OLIVIA ERT PATIENT MEDICARE (WNR) MEDICARE (M) PART B Jun 20, 2014 PART B [id number] EAMON OLIVIA ERT PATIENT MEDICARE (WNR) MEDICARE (M) PART A Jun 20, 2014 PART A [id number] EAMON OLIVIA ERT PATIENT MEDICARE (WNR) MEDICARE (M) PART B Jun 20, 2014 PART B [id number] EAMON OLIVIA ERT PATIENT OPTUM RX PRESCRIPT ION RX Jun 20, 2023 THPRX [id number] [phone] EAMON OLIVIA ERT PATIENT OPTUM RX PRESCRIPT ION RX Jun 20, 2022 THPRX [id number] [phone] EAMON OLIVIA ERT PATIENT OPTUM RX PRESCRIPT ION RX Jun 20, 2022 THPRX [id number] DAVON OLIVIA JR PATIENT [facility] Jun 20, 2017 [id number] [phone] EAMON OLIVIA ERT PATIENT [facility] Jun 20, 2017 [id number] DAVON OLIVIA JR PATIENT [facility] E Jun 20, 2017 [id number] DAVON OLIVIA JR PATIENT [facility] USP Jun 20, 2017 USP [id number] EAMON OLIVIA ERT PATIENT [facility] Jun 20, 2023 [id number] EAMON OLIVIA ERT PATIENT Selected Encounter This section includes the information on record at DC for the Encounter. Date/Time Encounter Type Encounter Description Reason Pro vider Source Jun 23, 2023 12:00 AM Outpatient Encounter COMMUNITY CARE CONSULT IHE Encounter Template Text not used by DC Plan of Treatment: Future Appointments (+ 6 months) and Future Tests (+/- 45 days) The Plan of Treatment section includes future care activities for the patient from all DC treatmentfacilities. This section includes future appointments and future orders which are active, pending or scheduled. Future Appointments This section includes appointments that were scheduled to occur 6 months from the date of the Encounter, up to a maximum of 20 appointments. The data comes from all DC treatment facilities. Appointment Date/Time Appointment Type Appointme nt Facility Name Jul 19, 2023 01:00 PM AMBULATORY - PS[place]CHIATRY [place] [facility] [place] [facility] Jul 19, 2023 01:00 PM AMBULATORY - [place]AT[place] [facility] Oct 17, 2023 01:00 PM AMBULATORY - MEDICINE [place] [facility] [place] [facility] Oct 17, 2023 01:15 PM [facility] Lab Results: +/- 30 days of the encounter This section includes the Chemistry and Hematology Lab Results on record with DC for the patient. Radiology Reports and Pathology Reports are provided separately, in subsequent sections. Lab Results This section contains the Chemistry/Hematology Results that were resulted 30 days before or 30 daysafter the date of the Encounter. Date/Time Source Result Type Result - Unit Interpretation Reference Range Comment May 26, 2023 12:00 PM [facility] FOLATE Specimen Type: SERUM No comment entered. Ordering Provider: CÉSAR JONES Report Released Date/Time: May 20, 2023 01:26 PM Reporting Lab: [facility] [address] [facility] [facility] [address] Performing Lab: [facility]N [facility] [address] [facility] [address] FOLATE 13.04 ng/mL >5.2 May 26, 2023 12:00 PM [facility] VITAMIN D (25-OH) Specimen Type: SERUM No comment entered. Ordering Provider: CÉSAR JONES Report Released Date/Time: May 20, 2023 01:26 PM Reporting Lab: [facility]ITALRM[facility]TRN [facility]ETS [address] [address] Performing Lab: [facility]THTRN [facility] [address] [facility] [address] VITAMIN D (25-OH) 32 ng/mL 20-50 May 26, 2023 12:00 PM [facility] VITAMIN B12 Specimen Type: SERUM No comment entered. Ordering Provider: CÉSAR JONES Report Released Date/Time: May 20, 2023 01:26 PM Reporting Lab: [facility]TR[facility] [address] [address] Performing Lab: [facility] [address] [address] VITAMIN B12 610 pg/mL 200-900 May 26, 2023 12:00 PM [facility] CBC Specimen Type: BLOOD No comment entered. Ordering Provider: CÉSAR JONES Report Released Date/Time: May 20, 2023 01:26 PM Reporting Lab: [facility] [address] [facility] [address] Performing Lab: [address] [address] WBC 7.69 10*3/uL 4.50-11.00 RBC 4.72 10*6/uL 4.23-5.66 HGB 14.0 g/dL 12.8-17 HCT 43.4 39.2-50.4 MCV 91.9 fL 82-99 MCHC 32.3 g/dL 30.8-35.1 PLT 296 10*3/uL 140-360 RDW-CV 12.4 12.0-16.0 MCH 29.7 pg 26.2-32.6 May 26, 2023 12:00 PM [facility] BASIC METABOLIC PANEL (fasting) Specimen Type: SERUM No comment entered. Ordering Provider: CÉSAR JONES Report Released Date/Time: May 20, 2023 01:26 PM Reporting Lab: [address] [address] Performing Lab: [address] [address] UREA NITROGEN 17 mg/dL 7-25 GLUCOSE 89 mg/dL 65-100 SODIUM 139 mmol/L 135-145 POTASSIUM 3.5 mmol/L 3.5-5.0 CHLORIDE 99 mmol/L L 100-110 CO2 31 meq/L H 20-30 CREATININE, Serum 1.08 mg/dL 0.50-1.40 eGFR(CKD-EPI 2020) 72 mL/min >60 May 26, 2023 12:00 PM [facility] LIPID PANEL FASTING Specimen Type: SERUM No comment entered. Ordering Provider: CÉSAR JONES Report Released Date/Time: May 20, 2023 01:26 PM Reporting Lab: [address] [place] [address] Performing Lab: [facility] [place] [facility] [address] [facility] [address] CHOLESTEROL 204 mg/dL H TRIGLYCERIDE 67 mg/dL 0-150 LDL calculated 135 mg/dL H 0-129 CHOL/HDL 3.6 HDL CHOLESTEROL 56 mg/dL 40-60 May 26, 2023 12:00 PM [facility] CALCIUM Specimen Type: SERUM No comment entered. Ordering Provider: CÉSAR JONES Report Released Date/Time: May 20, 2023 01:26 PM Reporting Lab: [facility]RM[facility]THTRN [facility] [address] [facility] [facility] [address] Performing Lab: [facility] [address] [facility] [address] CALCIUM 9.1 mg/dL 8.5-10.2 May 26, 2023 12:00 PM [facility] TSH Specimen Type: SERUM No comment entered. Ordering Provider: CÉSAR JONES Report Released Date/Time: May 20, 2023 01:26 PM Reporting Lab: [facility] [address] [facility] [address] Performing Lab: [facility] [address] [facility] [address] TSH 1.64 u[IU]/mL 0.35-5.00 May 26, 2023 12:00 PM [facility] HEMOGLOBIN A1C PANEL Specimen Type: [...] May 20, 2023 01:26 PM Reporting Lab: [facility] [address] [facility] [address] Performing Lab: [facility] [address] [facility] [address] HEMOGLOBIN A1C 5.1 4.0-5.6 May 26, 2023 12:00 PM [facility] FERRITIN Specimen Type: SERUM No comment entered. Ordering Provider: CÉSAR JONES Report Released Date/Time: May 20, 2023 01:26 PM Reporting Lab: [facility]ITALRMAR[facility] SOUTHTRN [facility] [address] [facility] [facility] [address] Performing Lab: [facility]OSPITALRL TRN [facility]ETS [address] [address] FERRITIN 95 ng/mL 20-300 May 26, 2023 12:00 PM [facility]ITALN [facility] IRON & TIBC PANEL Specimen Type: SERUM No comment entered. Ordering Provider: CÉSAR JONES Report Released Date/Time: May 20, 2023 01:26 PM Reporting Lab: [facility]ITALR[facility]ITALN [facility]ITALUSE[address] [address] Performing Lab: [facility]ITALR[facility]ITALN [facility]ITALUSETS [address] [address] TIBC 301 ug/dL 204-475 IRON 106 ug/dL 40-160 Transferrin Saturation 35.2 20.0-50.0 May 26, 2023 12:00 PM [facility] MAGNESIUM Specimen Type: SERUM No comment entered. Ordering Provider: CÉSAR JONES Report Released Date/Time: May 20, 2023 01:26 PM Reporting Lab: [facility]ITALRMAR[facility] SOUTHTRN [facility]ITALUS[facility] [address] [address] Performing Lab: [facility]ITALRMARSH[facility] SOUTHTRN [facility]ITALUS[facility] [address] [address] MAGNESIUM 2.0 mg/dL 1.6-2.6 May 26, 2023 12:00 PM [facility] CREATININE (eGFR 2020) Specimen Type: SERUM No comment entered. Ordering Provider: CÉSAR JONES Report Released Date/Time: May 20, 2023 01:26 PM Reporting Lab: [facility]ITALRMAR[facility] SOUTHTRN [facility]ITALUSETS [address] [address] Performing Lab: [facility]ITALRMARSH[facility] SOUTHTRN [facility]ITALUSETS [address] [address] CREATININE, Serum 1.08 mg/dL 0.50-1.40 eGFR(CKD-EPI 2020) 72 mL/min >60 May 26, 2023 12:00 PM [facility] LIVER FUNCTION Specimen Type: SERUM No comment entered. Ordering Provider: CÉSAR JONES Report Released Date/Time: May 20, 2023 01:26 PM Reporting Lab: [address] [address] Performing Lab: [address] [address] PROTEIN,TOTAL 6.6 g/dL 6.0-8.3 ALBUMIN 3.4 g/dL L 3.5-5.0 ALKALINE PHOSPHATASE 67 U/L 40-150 AST 20 U/L 5-34 ALT 8 U/L BILIRUBIN, TOTAL 0.5 mg/dL 0.2-1.2 May 26, 2023 12:00 PM [facility] PT & INR (COUMADIN) Specimen Type: PLASMA No comment entered. Ordering Provider: CÉSAR JONES Report Released Date/Time: May 20, 2023 01:26 PM Reporting Lab: [address] [address] Performing Lab: [address] [address] INR 1.4 PROTIME 15.1 s H 10.0-13.1 Social History: Smoking Status (Most current) and Tobacco Use (All prior to encounter date) This section includes the most current, and the historical, smoking and tobacco- related health factors from the DC facility where the Encounter took place. Current Smoking Status This section includes the most current smoking, or tobacco-related health factor, from the DC facility where the Encounter took place. Date/Time Current Smoking Status Comment Facil ity Jan 19, 2023 12:24 PM VA-TOBACCO NEVER USED [facility] Tobacco Use History This section includes a history of the smoking, or tobacco-related health factors, that were collected on or before the date of the Encounter. The data comes from the DC facility where the Encounter took place. Date/Time Smoking Status/Tobacco Use Comment F acility Jan 15, 2021 11:00 AM VA-TOBACCO NEVER USED [facility] Advance Directives: All historical and current Section Date Range: From patient's date of to the date document was created. This section includes ALL of a patient's completed or amended DC Advance and Rescinded Directives. The entries below indicate that a directive exists for the patient, but an actual copy is not included with this document. The data comes from all DC facilities. Date Advance Directives Provider Source Jan 20, 2021 ADVANCE DIRECTIVE BENTON ARAUZ [facility] Encounter Notes: All associated encounter notes This section contains the clinical notes associated to the Encounter. Date/Time Encounter Note(s) Provider Source Jun 23, 2023 12:00 AM NONVA CONSULT: LOCAL TITLE: COMMUNITY CARE-CONSULT RESULT NOTE STANDARD TITLE: NONVA CONSULT DATE OF NOTE: JUN 23, 2023 ENTRY DATE: SEP 06, 2023@12:56:55 AUTHOR: TRAV MCCOY EXP COSIGNER: URGENCY: STATUS: COMPLETED VistA Imaging - Scanned Document SCANNED DOCUMENT SIGNATURE NOT REQUIRED Electronically Filed: 09/06/2023 by: TRAV MCCOY LOAN REVIEW OFFICER TRAV MCCOY [facility]
--- OUTSIDE RECORDS SUMMARY | 2024-05-30 08:43 | XMS_ITS ---
Author Name [facility] Organization [facility] Address [address] [place] [id number] Care Team Providers Care Research Assistant Member Name Role Phone HUSEYIN LUIS FERNANDO Primary [...] PRESCRIPT ION [id number] 1 Jun 20, 2017 [id number] EAMON OLIVIA ERT PATIENT MEDICARE (WNR) MEDICARE (M) PART A Jun 20, 2014 PART A [id number] EAMON OLIVIA ERT PATIENT MEDICARE (WNR) MEDICARE (M) PART B Jun 20, 2014 PART B [id number] EAMON OLIVIA ERT PATIENT MEDICARE (WNR) MEDICARE (M) PART A Jun 20, 2014 PART A [id number] EAMON OLIVIA ERT PATIENT MEDICARE (WNR) MEDICARE (M) PART B Jun 20, 2014 PART B [id number] EAMON OLIVIA ERT PATIENT OPTUM RX PRESCRIPT ION RX Jun 20, 2023 THPRX [id number] EAMON OLIVIA ERT PATIENT OPTUM RX PRESCRIPT ION RX Jun 20, 2022 THPRX [id number] [phone] EAMON OLIVIA ERT PATIENT OPTUM RX PRESCRIPT ION RX Jun 20, 2022 THPRX [id number] DAVON OLIVIA JR PATIENT [facility] Jun 20, 2017 [id number] EAMON OLIVIA ERT PATIENT [facility] Jun 20, 2017 [id number] DAVON OLIVIA JR PATIENT [facility] PLAN [facility] E Jun 20, 2017 [id number] DAVON OLIVIA JR PATIENT [facility] Jun 20, 2017 USP [id number] [phone] EAMON OLIVIA ERT PATIENT [facility] Jun 20, 2023 [id number] EAMON OLIVIA ERT PATIENT Selected Encounter This section includes the information on record at [place] for the Encounter. Date/Time Encounter Type Encounter Description Reason Pro vider Source Jun 22, 2023 12:00 AM Outpatient Encounter COMMUNITY CARE CONSULT IHE Encounter Template Text not used by [place] Plan of Treatment: Future Appointments (+ 6 [...] 19, 2023 01:00 PM AMBULATORY - PSYCHIATRY [place] [facility] [facility] Jul 19, 2023 01:00 PM AMBULATORY - [place]AT[place] [facility] Oct 17, 2023 01:00 PM AMBULATORY - MEDICINE [place] [facility] [facility] Oct 17, 2023 01:15 PM [facility] Lab Results: +/- 30 days [...] Range Comment May 26, 2023 12:00 PM [facility] FOLATE Specimen Type: SERUM No comment entered. Ordering Provider: CÉSAR JONES Report Released Date/Time: May 20, 2023 01:26 PM Reporting Lab: [facility] [address] [facility] [address] Performing Lab: [facility] [address] [facility] [address] FOLATE 13.04 ng/mL >5.2 May 26, 2023 12:00 PM [facility] VITAMIN D (25-[place]) Specimen Type: SERUM No comment entered. Ordering Provider: CÉSAR JONES Report Released Date/Time: May 20, 2023 01:26 PM Reporting Lab: [facility] [address] [address] Performing Lab: [facility] [address] [facility] [address] VITAMIN D (25-OH) 32 ng/mL 20-50 May 26, 2023 12:00 PM [facility] VITAMIN B12 Specimen Type: SERUM No comment entered. Ordering Provider: CÉSAR JONES Report Released Date/Time: May 20, 2023 01:26 PM Reporting Lab: [facility] [address] [address] Performing Lab: [facility] [address] [address] VITAMIN B12 610 pg/mL 200-900 May 26, 2023 12:00 PM [facility] CBC Specimen Type: BLOOD No comment entered. Ordering Provider: CÉSAR JONES Report Released Date/Time: May 20, 2023 01:26 PM Reporting Lab: [facility] [address] [address] Performing Lab: [address] [address] WBC 7.69 10*3/uL 4.50-11.00 RBC 4.72 10*6/uL 4.23-5.66 HGB 14.0 g/dL 12.8-17 HCT 43.4 39.2-50.4 MCV 91.9 fL 82-99 MCHC 32.3 g/dL 30.8-35.1 PLT 296 10*3/uL 140-360 RDW-CV 12.4 12.0-16.0 MCH 29.7 pg 26.2-32.6 May 26, 2023 12:00 PM [facility] BASIC METABOLIC PANEL (fasting) Specimen Type: SERUM No comment entered. Ordering Provider: CÉSAR JONES Report Released Date/Time: May 20, 2023 01:26 PM Reporting Lab: [address] [address] Performing Lab: [address] [address] UREA NITROGEN 17 mg/dL 7-25 GLUCOSE 89 mg/dL 65-100 SODIUM 139 mmol/L 135-145 POTASSIUM 3.5 mmol/L 3.5-5.0 CHLORIDE 99 mmol/L L 100-110 CO2 31 meq/L H 20-30 CREATININE, Serum 1.08 mg/dL 0.50-1.40 eGFR(CKD-EPI 2020) 72 mL/min >60 May 26, 2023 12:00 PM [facility] LIPID PANEL FASTING Specimen Type: SERUM No comment entered. Ordering Provider: CÉSAR JONES Report Released Date/Time: May 20, 2023 01:26 PM Reporting Lab: [address] [place] [address] Performing Lab: [facility] [place] [facility] [address] [facility] [address] CHOLESTEROL 204 mg/dL H TRIGLYCERIDE 67 mg/dL 0-150 LDL calculated 135 mg/dL H 0-129 CHOL/HDL 3.6 HDL CHOLESTEROL 56 mg/dL 40-60 May 26, 2023 12:00 PM [facility] CALCIUM Specimen Type: SERUM No comment entered. Ordering Provider: CÉSAR JONES Report Released Date/Time: May 20, 2023 01:26 PM Reporting Lab: [facility] [address] [facility] [address] Performing Lab: [facility] [address] [facility] [address] CALCIUM 9.1 mg/dL 8.5-10.2 May 26, 2023 12:00 PM [facility] TSH Specimen Type: SERUM No comment entered. Ordering Provider: CÉSAR JONES Report Released Date/Time: May 20, 2023 01:26 PM Reporting Lab: [facility] [address] [address] Performing Lab: [facility] [address] [facility] [address] TSH 1.64 u[IU]/mL 0.35-5.00 May 26, 2023 12:00 PM [facility] HEMOGLOBIN A1C PANEL Specimen Type: [...] May 20, 2023 01:26 PM Reporting Lab: [facility] [address] [address] Performing Lab: [facility] [address] [address] HEMOGLOBIN A1C 5.1 4.0-5.6 May 26, 2023 12:00 PM [facility] IRON & TIBC PANEL Specimen Type: SERUM No comment entered. Ordering Provider: CÉSAR JONES Report Released Date/Time: May 20, 2023 01:26 PM Reporting Lab: [facility] [place] [facility] [address] [facility] [address] Performing Lab: [place] [facility] [address] [facility] [address] TIBC 301 ug/dL 204-475 IRON 106 ug/dL 40-160 Transferrin Saturation 35.2 20.0-50.0 May 26, 2023 12:00 PM [facility] FERRITIN Specimen Type: SERUM No comment entered. Ordering Provider: CÉSAR JONES Report Released Date/Time: May 20, 2023 01:26 PM Reporting Lab: [facility] [address] [address] Performing Lab: [facility] [address] [address] FERRITIN 95 ng/mL 20-300 May 26, 2023 12:00 PM [facility] MAGNESIUM Specimen Type: SERUM No comment entered. Ordering Provider: CÉSAR JONES Report Released Date/Time: May 20, 2023 01:26 PM Reporting Lab: [facility] [place] [address] [address] Performing Lab: [facility] [place] [address] [address] MAGNESIUM 2.0 mg/dL 1.6-2.6 May 26, 2023 12:00 PM [facility] CREATININE (eGFR 2020) Specimen Type: SERUM No comment entered. Ordering Provider: CÉSAR JONES Report Released Date/Time: May 20, 2023 01:26 PM Reporting Lab: [facility] [address] [address] Performing Lab: [place] [facility] [address] [address] CREATININE, Serum 1.08 mg/dL 0.50-1.40 eGFR(CKD-EPI 2020) 72 mL/min >60 May 26, 2023 12:00 PM [facility] LIVER FUNCTION Specimen Type: SERUM No comment entered. Ordering Provider: CÉSAR JONES Report Released Date/Time: May 20, 2023 01:26 PM Reporting Lab: [address] [address] Performing Lab: [address] [address] PROTEIN,TOTAL 6.6 g/dL 6.0-8.3 ALBUMIN 3.4 g/dL L 3.5-5.0 ALKALINE PHOSPHATASE 67 U/L 40-150 AST 20 U/L 5-34 ALT 8 U/L BILIRUBIN, TOTAL 0.5 mg/dL 0.2-1.2 May 26, 2023 12:00 PM [facility] PT & INR (COUMADIN) Specimen Type: PLASMA No comment entered. Ordering Provider: CÉSAR JONES Report Released Date/Time: May 20, 2023 01:26 PM Reporting Lab: [address] [address] Performing Lab: [address] [address] INR 1.4 PROTIME 15.1 s H 10.0-13.1 [...] 19, 2023 12:24 PM VA-TOBACCO NEVER USED [facility] Tobacco Use History This section includes a history of the smoking, or tobacco-related health factors, that were collected on or before the date of the Encounter. The data comes from the [place] facility where the Encounter took place. Date/Time Smoking Status/Tobacco Use Comment F acility Jan 15, 2021 11:00 AM VA-TOBACCO NEVER USED [facility] Advance Directives: All historical and [...] 20, 2021 ADVANCE DIRECTIVE AALIYAHBENTON ELZA Chacko [facility] Encounter Notes: All associated encounter notes This section contains the clinical notes associated to the Encounter. Date/Time Encounter Note(s) Provider Source Jun 22, 2023 12:00 AM NONVA CONSULT: LOCAL TITLE: COMMUNITY CARE-CONSULT RESULT NOTE STANDARD TITLE: NONVA CONSULT DATE OF NOTE: JUN 22, 2023 ENTRY DATE: SEP 01, 2023@11:32:26 AUTHOR: ELIAN AVILA EXP COSIGNER: URGENCY: STATUS: COMPLETED VistA Imaging - Scanned Document SCANNED DOCUMENT SIGNATURE NOT REQUIRED Electronically Filed: 09/01/2023 by: ELIAN BUTTS [facility]
--- OUTSIDE RECORDS SUMMARY | 2024-05-30 08:44 | XMS_ITS | Encounter Summary ---
Author Name [facility] [place] Organization [facility] [place] Address [address] [place] [address] Care Team Providers Care Weaving Teacher Name Role Phone LUIS FERNANDO FONTANEZ Primary [...] SIMS ION [id number] 1 Jun 20, 2017 [id number] EAMON OLIVIA ERT PATIENT MEDICARE (WNR) MEDICARE (M) PART A Jun 20, 2014 PART A [id number] EAMON OLIVIA ERT PATIENT MEDICARE (WNR) MEDICARE (M) PART B Jun 20, 2014 PART B [id number] EAMON OLIVIA ERT PATIENT MEDICARE (WNR) MEDICARE (M) PART A Jun 20, 2014 PART A [id number] EAMON OLIVIA ERT PATIENT MEDICARE (WNR) MEDICARE (M) PART B Jun 20, 2014 PART B [id number] EAMON OLIVIA ERT PATIENT OPTUM RX PRESCRIPT ION RX Jun 20, 2023 THPRX [id number] EAMON OLIVIA ERT PATIENT OPTUM RX PRESCRIPT ION RX Jun 20, 2022 THPRX [id number] EAMON OLIVIA ERT PATIENT OPTUM RX PRESCRIPT ION RX Jun 20, 2022 THPRX [id number] DAVON OLIVIA JR PATIENT [facility] MAR Jun 20, 2017 [id number] EAMON OLIVIA ERT PATIENT [facility] TON PEÑA E Jun 20, 2017 [id number] DAVON OLIVIA JR PATIENT [facility] PEÑA E Jun 20, 2017 [id number] DAVON OLIVIA JR PATIENT [facility] USP Jun 20, [address] [facility] [id number] EAMON OLIVIA ERT PATIENT [facility] Jun 20, 2023 [id number] EAMON OLIVIA ERT PATIENT Selected Encounter This section includes the information on record at [place] for the Encounter. Date/Time Encounter Type Encounter Description Reason Provider Source Sep 29, 2023 12:11 PM HC PRO PHONE CALL 11-20 MIN TELEPHONE [facility] ICD-10-CM U07.1 COVID-19 JENNIFER SEGURA [facility] Encounter Template Text not used by [place] Assessments - Encounter Diagnoses This section includes the primary and secondary diagnoses documented for the Encounter. Date/Time Primary/Secondary Diagnosis Diagnosis Name Provider Source Sep 29, 2023 12:11 PM PRIMARY COVID-19 JENNIFER SEGURA [place] [facility] [place] [facility] Plan of Treatment: Future Appointments (+ 6 months) and Future Tests (+/- 45 days) The Plan of Treatment section includes future care activities for the patient from all [place] treatmentfacilities. This section includes future appointments and future orders which are active, pending or scheduled. Future Appointments This section includes appointments that were scheduled to occur 6 months from the date of the Encounter, up to a maximum of 20 appointments. The data comes from all [place] treatment facilities. Appointment Date/Time Appointment Type Appointme nt Facility Name Oct 17, 2023 01:00 PM AMBULATORY - MEDICINE [place] [facility] [place] [facility] Oct 17, 2023 01:15 PM AMBULATORY - MEDICINE [place] [facility] [place] [facility] Dec 26, 2023 11:00 AM AMBULATORY - MEDICINE [place] [facility] [place] [facility] Jan 04, 2024 01:00 PM AMBULATORY - NONE [facility] [place] [facility] Feb 02, 2024 03:00 PM AMBULATORY - REHAB MEDICIN E [facility] [place] [facility] Feb 14, 2024 12:30 PM AMBULATORY - REHAB MEDICIN E [facility] [place] [facility] Mar 15, 2024 10:00 AM AMBULATORY - REHAB MEDICIN E [facility] [place] [facility] Mar 22, 2024 08:00 AM AMBULATORY - MEDICINE [place] [facility] [place] [facility] Mar 22, 2024 01:00 PM AMBULATORY - NONE [facility] [place] [facility] Mar 27, 2024 02:30 PM AMBULATORY - MEDICINE [place] [facility] [place] [facility] Mar 29, 2024 11:00 AM AMBULAT[facility] Lab Results: +/- 30 days of the encounter This section includes the Chemistry and Hematology Lab Results on record with [place] for the patient. Radiology Reports and Pathology Reports are provided separately, in subsequent sections. Lab Results This section contains the Chemistry/Hematology Results that were resulted 30 days before or 30 daysafter the date of the Encounter. Date/Time Source Result Type Result - Unit Interpretation Reference Range Comment Oct 10, 2023 02:00 PM [place] [facility] [place] [facility] FOLATE (WROX) Specimen Type: SERUM No comment entered. Ordering Provider: LUIS FERNANDO FONTANEZ Report Released Date/Time: Oct 10, 2023 08:28 AM Reporting Lab: [facility] [address] [facility] [address] Performing Lab: [facility] [address] [facility] [address] FOLATE (WROX) 13.68 ng/mL >5.2 Oct 10, 2023 02:00 PM [facility] LIVER FUNCTION Specimen Type: SERUM No comment entered. Ordering Provider: LUIS FERNANDO FONTANEZ A Report Released Date/Time: Oct 10, 2023 08:28 AM Reporting Lab: [facility] [address] [facility] [address] Performing Lab: [facility] [address] [facility] [address] PROTEIN,TOTAL 7.0 g/dL 6.0-8.3 ALBUMIN 3.6 g/dL 3.5-5.0 ALKALINE PHOSPHATASE 77 U/L 40-150 AST 21 U/L 5-34 ALT 14 U/L BILIRUBIN, TOTAL 0.4 mg/dL 0.2-1.2 Oct 10, 2023 02:00 PM [facility] LIPID PANEL, NON FASTING Specimen Type: SERUM No comment entered. Ordering Provider: LUIS FERNANDO FONTANEZ Report Released Date/Time: Oct 10, 2023 08:28 AM Reporting Lab: [facility] [address] [facility] [address] Performing Lab: [facility] [address] [facility] [address] CHOLESTEROL 210 mg/dL H TRIGLYCERIDE 84 mg/dL 0-150 LDL calculated 133 mg/dL H 0-129 CHOL/HDL 3.5 HDL CHOLESTEROL 60 mg/dL 40-60 Oct 10, 2023 02:00 PM [facility] VITAMIN D (25-OH) Specimen Type: SERUM No comment entered. Ordering Provider: LUIS FERNANDO FONTANEZ Report Released Date/Time: Oct 10, 2023 08:28 AM Reporting Lab: [facility] [address] [facility] [address] Performing Lab: [facility] [address] [facility] [address] VITAMIN D (25-OH) 38 ng/mL 20-50 Oct 10, 2023 02:00 PM [facility] VITAMIN B12 Specimen Type: SERUM No comment entered. Ordering Provider: LUIS FERNANDO FONTANEZ Report Released Date/Time: Oct 10, 2023 08:28 AM Reporting Lab: [place] [facility] [place] [facility] [address] [facility] [address] Performing Lab: [facility] [address] [facility] [address] VITAMIN B12 767 pg/mL 200-900 Oct 10, 2023 02:00 PM [facility] HEMOGLOBIN A1C PANEL Specimen Type: BLOOD [...] 10, 2023 08:28 AM Reporting Lab: [facility] [place] [facility] [address] [facility] [address] Performing Lab: [facility] SSD[facility] [address] [address] HEMOGLOBIN A1C 5.3 4.0-5.6 Oct 10, 2023 02:00 PM [facility] TSH Specimen Type: SERUM No comment entered. Ordering Provider: LUIS FERNANDO FONTANEZ Report Released Date/Time: Oct 10, 2023 08:28 AM Reporting Lab: [facility] [place] [facility] [address] [facility] [address] Performing Lab: [facility] [place] [facility] [address] [facility] [address] TSH 2.22 u[IU]/mL 0.35-5.00 Oct 10, 2023 02:00 PM [facility] FERRITIN Specimen Type: SERUM No comment entered. Ordering Provider: LUIS FERNANDO FONTANEZ Report Released Date/Time: Oct 10, 2023 08:28 AM Reporting Lab: [facility] [address] [facility] [address] Performing Lab: [facility] [address] [facility] [address] FERRITIN 106 ng/mL 20-300 Oct 10, 2023 02:00 PM [facility] IRON & TIBC PANEL Specimen Type: SERUM No comment entered. Ordering Provider: LUIS FERNANDO FONTANEZ Report Released Date/Time: Oct 10, 2023 08:28 AM Reporting Lab: [facility] [address] [facility] [address] Performing Lab: [address] [address] TIBC 330 ug/dL 204-475 IRON 102 ug/dL 40-160 Transferrin Saturation 30.9 20.0-50.0 Oct 10, 2023 02:00 PM [facility] CBC AND DIFF (AUTO) Specimen Type: BLOOD No comment entered. Ordering Provider: LUIS FERNANDO FONTANEZ Report Released Date/Time: Oct 10, 2023 08:28 AM Reporting Lab: [facility] [address] [facility] [address] Performing Lab: [address] [address] WBC 7.10 10*3/uL 4.50-11.00 RBC 5.13 10*6/uL 4.23-5.66 HGB 15.1 g/dL 12.8-17 HCT 45.5 39.2-50.4 MCV 88.7 fL 82-99 MCHC 33.2 g/dL 30.8-35.1 PLT 281 10*3/uL 140-360 RDW-CV 12.9 12.0-16.0 [place], Abs 0.67 10*3/uL 0.30-1.10 MCH 29.4 pg 26.2-32.6 Neut % 61.3 43.7-75.8 Lymph % 27.3 14.0-42.3 [place] % 9.4 5.1-13.7 Eos % 1.3 0.4-6.8 Baso % 0.4 0.1-2.0 Neut, Abs 4.35 10*3/uL 2.20-7.60 Lymph, Abs 1.94 10*3/uL 1.00-3.20 Eos, Abs 0.09 10*3/uL 0.03-0.44 Baso, Abs 0.03 10*3/uL 0.01-0.13 Immature Gran % 0.3 0.0-0.7 Immature Gran, Abs 0.02 10*3/uL 0.00-0.06 Oct 10, 2023 02:00 PM [facility] BASIC METABOLIC PANEL (non-fasting) Specimen Type: SERUM No comment entered. Ordering Provider: LUIS FERNANDO FONTANEZ Report Released Date/Time: Oct 10, 2023 08:28 AM Reporting Lab: [facility] [address] [facility] [address] Performing Lab: [address] [address] UREA NITROGEN 16 mg/dL 7-25 GLUCOSE 82 [...] and tobacco- related health factors from the [place] facility where the Encounter took place. Current Smoking Status This section includes the most current smoking, or tobacco-related health factor, from the [place] facility where the Encounter took place. Date/Time Current Smoking Status Comment Facil ity Jan 19, 2023 12:24 PM VA-TOBACCO NEVER USED [facility] Tobacco Use History This section includes a history of the smoking, or tobacco-related health factors, that were collected on or before the date of the Encounter. The data comes from the [place] facility where the Encounter took place. Date/Time Smoking Status/Tobacco Use Comment F acility Jan 15, 2021 11:00 AM VA-TOBACCO NEVER USED [facility] Advance Directives: All historical and current Section Date Range: From patient's date of to the date document was created. This section includes ALL of a patient's completed or amended [place] Advance and Rescinded Directives. The entries below indicate that a directive exists for the patient, but an actual copy is not included with this document. The data comes from all [place] facilities. Date Advance Directives Provider Source Jan 20, 2021 ADVANCE DIRECTIVE [facility] [facility] Encounter Notes: All associated encounter notes This section contains the clinical notes associated to the Encounter. Date/Time Encounter Note(s) Provider Source Sep 29, 2023 01:12 PM [facility] NOTE: LOCAL TITLE: [facility] POST INFECTION ASSESSMENT NOTE STANDARD TITLE: [facility] NOTE DATE OF NOTE: SEP 29, 2023@13:12 ENTRY DATE: SEP 29, 2023@13:12:17 AUTHOR: JENNIFER SEGURA COSIGNER: URGENCY: STATUS: COMPLETED POST INFECTION ASSESSMENT NOTE Date of Infection: Aug Analytical Engineer: Jennifer Segura Type of Infection: Covid Patient Seen in ER: Yes [ ] No [X] Culture Sent: Yes [ ] No [X] Facility Reporting Culture Results: Abx Prescribed: Yes [ ] No [X] Name of Antibiotic: Antiviral Ordering Provider: Community PCP (Please check all that apply) Risk Factors Possibly Contributing to Infection: [ ] Surgical Procedure [ ] BPH/Urinary Retention [ ] COPD [ ] Vascular Insufficiency/Edema [ ] Ragland Catheter [ ] Suprapubic Catheter [ ] Intermittent Catheterization [X] Other none Was [facility] discharged from inpatient status 48-72 hours prior to infection? Yes [ ] No [X] If yes, where: Infection Resolved: Yes [ ] No [X] Current Status of Patient: [X] Home [ ] Hospital (Please check all that apply) Interventions: [ ] F/U Medical Visit [X] PCP Notified [X] PSA Notified [X] Education was provided to patient and/or family regarding infection/infection control /es/ JENNIFER SEGURA VICE PRESIDENT OF SOFTWARE DEVELOPMENT HBDARSHAN MANAGER PERSONAL Signed: 09/29/2023 13:14 Receipt Acknowledged By: 09/29/2023 13:26 /es/ MARIAH GASTON [facility] 10/04/2023 06:43 /es/ AMANDO OHARA BODY AND FENDER MECHANIC GEKaterin/[facility] 09/29/2023 16:14 /es/ KALYAN BARBER HB VALVE TESTER 10/03/2023 09:34 /es/ RAMIN MENDIETA, PT, MS, ATP HB Physical Therapist 09/29/2023 15:28 /es/ RIGO FENTON, MS, RDN, LDN Staff Dietitian 09/30/2023 07:58 /es/ Suyapa Tirado [facility] Manager Operations And Procurement 09/30/2023 08:16 /es/ LUIS FERNANDO [facility] NURSE PRACTITIONER JENNIFER SEGURA [facility] Sep 29, 2023 12:12 PM [facility] NOTE: LOCAL TITLE: [facility] TELEPHONE NOTE STANDARD TITLE: [facility] NOTE DATE OF NOTE: SEP 29, 2023@12:12 ENTRY DATE: SEP 29, 2023@12:12:08 AUTHOR: JENNIFER SEGURA EXP COSIGNER: URGENCY: STATUS: COMPLETED Duration of call: 13 minutes Spouse called and canceled home visit for today. Spouse reports she and Tested positive for Covid last week and she just tested again, and they are still positive. was treated with antiviral medication by his Community PCP last week. Spouse reports [facility] completed his round of medication and is doing well. Reports loose non productive cough, congestion and fatigue. Eating and drinking well. Increased confusion at night. Denies dyspnea. No ssx of acute distress. Rescheduled home visit to 10/11. /sharron/ JENNIFER SEGURA VICE PRESIDENT OF SOFTWARE DEVELOPMENT [facility] MANAGER PERSONAL Signed: 09/29/2023 13:11 JENNIFER SEGURA [facility]
--- OUTSIDE RECORDS SUMMARY | 2024-05-30 08:44 | XMS_ITS ---
Author Name [facility] [place] [facility] [place] [facility] [place] Address [address] [place] [id number] Care Team Providers Care Health Promotion Specialist Name Role Phone LUIS FERNANDO FONTANEZ [...] PRESCRIPT ION [id number] 1 Jun 20, 2017 [id number] EAMON OLIVIA ERT PATIENT MEDICARE (WNR) MEDICARE (M) PART A Jun 20, 2014 PART A [id number] [phone] EAMON OLIVIA ERT PATIENT MEDICARE (WNR) MEDICARE (M) PART B Jun 20, 2014 PART B [id number] EAMON OLIVIA ERT PATIENT MEDICARE (WNR) MEDICARE (M) PART A Jun 20, 2014 PART A [id number] [phone] EAMON OLIVIA ERT PATIENT MEDICARE (WNR) MEDICARE (M) PART B Jun 20, 2014 PART B [id number] EAMON OLIVIA ERT PATIENT [facility] RX PRESCRIPT ION RX Jun 20, 2023 THPRX [id number] EAMON OLIVIA ERT PATIENT [facility] RX PRESCRIPT ION RX Jun 20, 2022 THPRX [id number] [phone] EAMON OLIVIA ERT PATIENT [facility] RX PRESCRIPT ION RX Jun 20, 2022 THPRX [id number] DAVON OLIVIA JR PATIENT [facility] TON AugJun 20, 2017 [id number] EAMON OLIVIA ERT PATIENT [facility] TON PEÑA E Jun 20, 2017 [id number] DAVON OLIVIA JR PATIENT [facility] TON PEÑA E Jun 20, 2017 [id number] DAVON OLIVIA JR PATIENT [facility]P Jun 20, 2017 USP [id number] EAMON OLIVIA ERT PATIENT [facility] Jun 20, 2023 [id number] EAMON OLIVIA ERT PATIENT Selected Encounter This section includes the information on record at [place] for the Encounter. 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 This section includes future appointments and [...] MEDICINE [facility] [place] [facility] Oct 17, 2023 01:15 PM AMBULATORY - MEDICINE [facility] Dec 26, 2023 11:00 AM AMBULATORY - [facility] Jan 04, 2024 01:00 PM AMBULATORY - [...] Range Comment Oct 10, 2023 02:00 PM [place] [facility] [place] [facility] FOLATE (WROX) Specimen Type: SERUM No comment entered. Ordering Provider: LUIS FERNANDO FONTANEZ Report Released Date/Time: Oct 10, 2023 08:28 AM Reporting Lab: [place] [facility] [place] [facility] [address] [address] Performing Lab: [place] [facility] [place] [facility] [address] [facility] [address] FOLATE (WROX) 13.68 ng/mL >5.2 Oct 10, 2023 02:00 PM [place] [facility] [place] [facility] LIVER FUNCTION Specimen Type: SERUM No comment entered. Ordering Provider: LUIS FERNANDO FONTANEZ Report Released Date/Time: Oct 10, 2023 08:28 AM Reporting Lab: [place] [facility] [place] [facility] [address] [address] Performing Lab: [facility] [address] [address] PROTEIN,TOTAL 7.0 g/dL 6.0-8.3 ALBUMIN 3.6 g/dL 3.5-5.0 ALKALINE PHOSPHATASE 77 U/L 40-150 AST 21 U/L 5-34 ALT 14 U/L BILIRUBIN, TOTAL 0.4 mg/dL 0.2-1.2 Oct 10, 2023 02:00 PM [facility] LIPID PANEL, NON FASTING Specimen Type: SERUM No comment entered. Ordering Provider: LUIS FERNANDO FONTANEZ Report Released Date/Time: Oct 10, 2023 08:28 AM Reporting Lab: [facility] [address] [address] Performing Lab: [facility] [address] [address] CHOLESTEROL 210 mg/dL H TRIGLYCERIDE 84 mg/dL 0-150 LDL calculated 133 mg/dL H 0-129 CHOL/HDL 3.5 HDL CHOLESTEROL 60 mg/dL 40-60 Oct 10, 2023 02:00 PM [facility] VITAMIN D (25-[place]) Specimen Type: SERUM No comment entered. Ordering Provider: LUIS FERNANDO FONTANEZ Report Released Date/Time: Oct 10, 2023 08:28 AM Reporting Lab: [facility] [address] [address] Performing Lab: [facility] [address] [address] VITAMIN D (25-[place]) 38 ng/mL 20-50 Oct 10, 2023 02:00 PM [facility] VITAMIN B12 Specimen Type: SERUM No comment entered. Ordering Provider: LUIS FERNANDO FONTANEZ A Report Released Date/Time: Oct 10, 2023 08:28 AM Reporting Lab: [facility] [address] [address] Performing Lab: [address] [address] VITAMIN B12 767 pg/mL 200-900 Oct 10, 2023 02:00 PM [facility] HEMOGLOBIN A1C PANEL Specimen Type: BLOOD [...] AM Reporting Lab: [facility] [place] [facility] [address] [address] Performing Lab: [place] [facility] [place] [facility] [address] [address] HEMOGLOBIN A1C 5.3 4.0-5.6 Oct 10, 2023 02:00 PM [facility] TSH Specimen Type: SERUM No comment entered. Ordering Provider: LUIS FERNANDO FONTANEZ Report Released Date/Time: Oct 10, 2023 08:28 AM Reporting Lab: [facility] [place] [address] [address] Performing Lab: [facility] [address] [address] TSH 2.22 u[IU]/mL 0.35-5.00 Oct 10, 2023 02:00 PM [facility] FERRITIN Specimen Type: SERUM No comment entered. Ordering Provider: LUIS FERNANDO FONTANEZ Report Released Date/Time: Oct 10, 2023 08:28 AM Reporting Lab: [facility] [address] [address] Performing Lab: [place] [facility] [place] [facility] [address] [address] FERRITIN 106 ng/mL 20-300 Oct 10, 2023 02:00 PM [facility] IRON & TIBC PANEL Specimen Type: SERUM No comment entered. Ordering Provider: LUIS FERNANDO FONTANEZ Report Released Date/Time: Oct 10, 2023 08:28 AM Reporting Lab: [facility] [place] [facility] [address] [address] Performing Lab: [facility] [address] [address] TIBC 330 ug/dL 204-475 IRON 102 ug/dL 40-160 Transferrin Saturation 30.9 20.0-50.0 Oct 10, 2023 02:00 PM [facility] CBC AND DIFF (AUTO) Specimen Type: BLOOD No comment entered. Ordering Provider: LUIS FERNANDO FONTANEZ Report Released Date/Time: Oct 10, 2023 08:28 AM Reporting Lab: [facility] [address] [address] Performing Lab: [facility] [address] [address] WBC 7.10 10*3/uL 4.50-11.00 RBC 5.13 10*6/uL 4.23-5.66 HGB 15.1 g/dL 12.8-17 HCT 45.5 39.2-50.4 MCV 88.7 fL 82-99 MCHC 33.2 g/dL 30.8-35.1 PLT 281 10*3/uL 140-360 RDW-CV 12.9 12.0-16.0 Redwood, Abs 0.67 10*3/uL 0.30-1.10 MCH 29.4 pg 26.2-32.6 Neut % 61.3 43.7-75.8 Lymph % 27.3 14.0-42.3 Redwood % 9.4 5.1-13.7 Eos % 1.3 0.4-6.8 Baso % 0.4 0.1-2.0 Neut, Abs 4.35 10*3/uL 2.20-7.60 Lymph, Abs 1.94 10*3/uL 1.00-3.20 Eos, Abs 0.09 10*3/uL 0.03-0.44 Baso, Abs 0.03 10*3/uL 0.01-0.13 Immature Gran % 0.3 0.0-0.7 Immature Gran, Abs 0.02 10*3/uL 0.00-0.06 Oct 10, 2023 02:00 PM [facility] BASIC METABOLIC PANEL (non-fasting) Specimen Type: SERUM No comment entered. Ordering Provider: LUIS FERNANDO FONTANEZ Report Released Date/Time: Oct 10, 2023 08:28 AM Reporting Lab: [facility] [address] [address] Performing Lab: [facility] [address] [address] UREA NITROGEN 16 mg/dL 7-25 GLUCOSE 82 [...] Raghu melchor Jan 19, 2023 12:24 PM [place] NEVER USED [facility] Tobacco Use History This section includes a history of the smoking, or tobacco-related health factors, that were collected on or before the date of the Encounter. The data comes from the [place] facility where the Encounter took place. Date/Time Smoking Status/Tobacco Use Comment F acneri Jan 15, 2021 11:00 AM [place] NEVER USED [facility] Advance Directives: [...] Jan 20, 2021 ADVANCE DIRECTIVE BENTON ARAUZ [facility] Encounter Notes: All associated encounter notes This section contains the clinical notes associated to the Encounter. Date/Time Encounter Note(s) Provider Source Sep 14, 2023 10:55 AM ADMINISTRATIVE NOTE: LOCAL TITLE: ADMINISTRATIVE NOTE STANDARD TITLE: ADMINISTRATIVE NOTE DATE OF NOTE: SEP 14, 2023@10:55 ENTRY DATE: SEP 14, 2023@10:55:08 AUTHOR: TRISTA JULES COSIGNER: URGENCY: STATUS: COMPLETED SUBJECT: cardiology note 09/07/21 Patient: DAVON OLIVIA Age: 71 Years Sex: Male : 1950 Indication for Consult Management of paroxysmal AF/AFL History of Present Illness Mr Olivia is a frail 71-year-old male with dyslipidemia, persistent AF s/p cryo-PVI (06/2017), history of DVT, and anxiety and depression who presents today for follow-up on AF/AFL management. Last visit was virtual in August 2020. At that visit his Tory informed me that he has been diagnosed with Parkinson's disease and his functional capacity has significantly declined and Davon was physically frail. In the past we titrated his metoprolol dose down to as low as 12.5 mg daily as it did provide good suppression from recurrent AF, however, tremors persisted and ultimately, we made the decision to discontinue metoprolol and to monitor for sustained palpitations or symptoms concerning for clinical recurrence of AF. This was prior to having a formal diagnosis of Parkinson's disease. Today Davon and his present in person for follow-up on management of AF/AFL. I have not seen him in person in quite a while and he does appear quite frail. Tory does most of the talking tells me that there is no evidence of sustained palpitations and he has not needed to use diltiazem since it has been prescribed. He leads a very sedentary life and is unable to perform most of his ADLs without assistance. Today I did encourage him to ambulate with an assistive device as tolerated. He has not had any report of lightheadedness or presyncope. There is no haroon syncope. ECG performed in office today reveals SR at 67 bpm; NM 1 7 8 ms; QRS duration 92 ms Review of Systems Constitutional, Eye, Skin, Head/Neck, ENMT, Respiratory, Cardio, Gastrointestinal, Endocrine, Musculoskeletal, Immunologic, Hematologic, Lymphatic, Neurologic, Psych reviewed and negative except as noted in HPI. Physical Exam Vitals & Measurements NM: 70 BP: 120/72 SpO2: 99% HT: 168 cm WT: 64 kg BMI: 22.68 General: Awake, Alert and Oriented x3 Eyes: Anicteric; PERRLA Neck: No carotid bruits; No JVD CV: Regular rhythm; + S1; S2; No S3; No murmurs; No JVD Pulm: CTA bilaterally; no wheezing, rhonchi, or rales GI: Soft; NT, ND; + BSx4 quadrants; No HSM Ext: DP / PT intact; no edema bilaterally Skin: Warm; dry Musc-skel: No C, C, E Assessment/Plan Mr. Olivia is a very pleasant 71-year-old male with the above documented history who was diagnosed with Parkinson's approximately 1 to 1/2 years ago which is unfortunately significantly limited his functional capacity. At our last visit we discontinued AV liberty blocking agents in the presence of worsening tremulousness and unsteadiness with a plan for monitoring for any episodes of sustained palpitations. Since that visit he has been doing well with no report of sustained palpitations and has not needed to take as needed diltiazem. He continues Eliquis 5 mg twice daily and his Tory monitors his weight and kidney function to determine if, in the setting of significant weight loss or renal dysfunction, apixaban dose should be decreased to 2.5 twice daily. She is very vigilant with this as she is a retired RN. From an arrhythmia perspective he is seemingly doing quite well, ostensibly maintaining sinus rhythm for the majority of times. I recommended that he continue apixaban 5 mg twice daily and if he does not develop sustained palpitations he may take diltiazem 30 mg tablet as previously instructed An echocardiogram was performed in November 2020 and we reviewed the results in detail today showing preserved LV function without wall motion abnormalities or significant valvulopathy (full details below) I would like to follow-up in approximately 6 months, sooner if symptoms worsen Afib Ordered: ECG 12 Lead Diagnostic Results Echo Complete-Doppler, Colorflow, M-Mode Transthoracic Echocardiography Report (TTE) Patient Demographics Patient Name DAVON OLIVIA Date of Study 12/08/2020 Technical Quality: Technically difficult due to restricted mobility. Blood Pressure:118/60 mmHg EKG: Within normal limits HR: 66 bpm 2D Measurements LV Diastolic Dimension: 4.1 cm LV Systolic Dimension: 2.7 cm LV Septum Diastolic: 0.9 cm LV PW Diastolic: 0.8 cm AO Root Dimension: 3 cm LA Dimension: 3.6 cm LA ESV (BP):33.46 ml LVOT Stroke Volume: 69.71 ml LA ESV Index: 19 ml/m2 Stroke Volume Index39.83 ml/m2 LVOT: 2 cm Cardiac Index:2.63 l/min/m2 Doppler Measurements AV Peak Velocity: 148 cm/s MV Peak E-Wave: 75 cm/s AV Peak Gradient: 8.76 mmHg MV Peak A-Wave: 27.4 cm/s MV E/A Ratio: 2.74 LVOT Peak Velocity: 102 cm/s MV P1/2t: 54 msec LVOT VTI22.2 cm MV Deceleration Time: 184 msec MV Area (PHT): 4.07 cm2 E' Septal Velocity: 8.49 cm/s PV Peak Velocity: 102 cm/s E' Lateral Velocity: 12.1 cm/s PV Peak Gradient: 4.16 mmHg E/Med E':[id number] E/Lat E':[id number] Cardiac Anatomy Left Ventricle/Interventricular Septum The left ventricular size is normal. Left ventricular wall thickness is normal. Normal LV systolic function. Ejection fraction is 60-65%. There are no regional wall motion abnormalities. Unable to assess diastolic function due to technical limitation . Intermittent fib/flutter noted. Left Atrium/Interatrial Septum The left atrium is poorly visualized. Grossly normal size. The interatrial septum appears intact. Aortic Valve Trileaflet aortic valve. The aortic valve appears mildly to moderately calcified. The aortic valve leaflet opening is mildly decreased . There is no aortic regurgitation. There is no aortic stenosis. Mitral Valve The mitral valve is grossly normal. There is trace to mild mitral regurgitation. Aorta The aortic root is normal in size. Right Ventricle The right ventricle is normal in size and function. Right Atrium The right atrium is normal in size. A prominent eustachian valve is seen in the right atrium (normal finding). Pulmonic Valve The pulmonic valve is poorly visualized. Tricuspid Valve The tricuspid valve is grossly normal. There is no significant tricuspid valve regurgitation. Pumonary Artery An accurate pulmonary artery pressure could not be obtained. Venous Structures The inferior vena cava size is normal with normal inspiratory collapse. Pericardium/Extracardiac There is no significant pericardial effusion. Summary The left ventricular size is normal. Left ventricular wall thickness is normal. Normal LV systolic function. Ejection fraction is 60-65%. There are no regional wall motion abnormalities. Unable to assess diastolic function due to technical limitation . Intermittent fib/flutter noted. Trileaflet aortic valve. The aortic valve appears mildly to moderately calcified. The aortic valve leaflet opening is mildly decreased . There is no aortic regurgitation. There is no aortic stenosis. There is no significant pericardial effusion. Comparison Comparison is made to the study of March 07, 2018. No significant change. Problem List/Past Medical History Ongoing Anxiety and depression Atrial fibrillation and flutter Dupuytren's contracture DVT (deep venous thrombosis) HLD (hyperlipidemia) Kidney stone Melanoma of skin Migraine Palpitations PVD (peripheral vascular disease), L > R Solitary pulmonary nodule on lung CT, 2mm Syncope Urinary frequency Historical Rhabdomyolysis due to Lipitor Procedure/Surgical History Cryoablation of atrial fibrillation & catheter ablation of right atrial flutter: 01/16/15 Medications Calcium And Vitamin D Combination, By Mouth, Daily, calcium 1200mg vitamin d 1000 units Chelated Magnesium, 250 mg, By Mouth, Daily diltiazem 30 mg oral tablet, 30 mg= 1 tablet, By Mouth, 3 times a day, PRN, 3 refills Eliquis 5 mg oral tablet, 5 mg= 1 tablet, By Mouth, 2 times a day, please make a follow up appt for more refills or have your pcp refill in the future Famotidine, 5 mg, By Mouth, Daily Melatonin, 5 mg, Daily at bedtime metoprolol 25 mg oral tablet, extended release, 25 mg= 1 tablet, By Mouth, Daily, 5 refills MiraLax, 17 Gm, By Mouth, Every other day Allergies Contrast Dye Flomax Lipitor (rhabdomyolysis) amoxicillin flecainide (Headache) Social History Tobacco Never smoker, Tobacco user in household: No., 11/22/2014 Family History No family history recorded. end of copy and paste /sharron/ ANTONINA JULES RN,MSN,MACHINE WELDER-C [facility] NURSE PRACTITIONER Signed: 09/14/2023 10:55 Receipt Acknowledged By: 09/14/2023 12:59 /es/ JENNIFER SEGURA HAND CANDY MOLDER [facility] CERTIFIED ADAPTIVE PHYSICAL EDUCATOR ELISSA JULES [facility]
--- OUTSIDE RECORDS SUMMARY | 2024-05-30 08:44 | XMS_ITS | Encounter Summary ---
Author Name [facility] [place] [place] [facility] [place] Address [address] [place] [id number] Care Team Providers Care Wine Pasteurizer Name Role Phone HUSEYIN LUIS FERNANDO Primary [...] PRESCRIPT ION [id number] 1 Jun 20, 2017 [id number] EAMON OLIVIA ERT PATIENT MEDICARE (WNR) MEDICARE (M) PART A Jun 20, 2014 PART A [id number] [phone] EAMON OLIVIA ERT PATIENT MEDICARE (WNR) MEDICARE (M) PART B Jun 20, 2014 PART B [id number] [phone] EAMON OLIVIA ERT PATIENT MEDICARE (WNR) MEDICARE (M) PART B Jun 20, 2014 PART B [id number] [phone] EAMON OLIVIA ERT PATIENT MEDICARE (WNR) MEDICARE (M) PART A Jun 20, 2014 PART A [id number] EAMON OLIVIA ERT PATIENT OPTUM RX PRESCRIPT ION RX Jun 20, 2023 THPRX [id number] EAMON OLIVIA ERT PATIENT [facility] RX PRESCRIPT ION RX Jun 20, 2022 THPRX [id number] EAMON OLIVIA ERT PATIENT OPTUM RX PRESCRIPT ION RX Jun 20, 2022 THPRX [id number] DAVON OLIVIA JR PATIENT [facility] Jun 20, 2017 [id number] [phone] EAMON OLIVIA ERT PATIENT [facility]A E Jun 20, 2017 [id number] DAVON OLIVIA JR PATIENT [facility] E Jun 20, 2017 [id number] DAVON OLIVIA JR PATIENT [facility] Jun 20, 2017 USP [id number] EAMON OLIVIA ERT [facility] Jun 20, 2023 [id number] EAMON OLIVIA ERT PATIENT Selected Encounter This section includes the information on record at [place] for the Encounter. Date/Time Encounter Type Encounter Description Reason Pro vider Source Sep 20, 2023 10:46 AM Outpatient Encounter [facility] ASSESSMENT IHE Encounter Template Text not used by [place] Plan of Treatment: Future Appointments (+ 6 [...] 17, 2023 01:00 PM AMBULATORY - [place]ICINE [place] [facility] [place] [facility] Oct 17, 2023 01:15 PM AMBULATORY - [...] and Hematology Lab Results on record with [place] for the patient. Radiology Reports and Pathology Reports are provided separately, in subsequent sections. Lab Results This section contains the Chemistry/Hematology Results that were resulted 30 days before or 30 daysafter the date of the Encounter. Date/Time Source Result Type Result - Unit Interpretation Reference Range Comment Oct 10, 2023 02:00 PM [facility] FOLATE (WROX) Specimen Type: SERUM No comment entered. Ordering Provider: LUIS FERNANDO FONTANEZ Report Released Date/Time: Oct 10, 2023 08:28 AM Reporting Lab: [facility] [place] [facility] [address] [facility] [address] Performing Lab: [facility] [address] [facility] [address] FOLATE (WROX) 13.68 ng/mL >5.2 Oct 10, 2023 02:00 PM [facility] LIVER FUNCTION Specimen Type: SERUM No comment entered. Ordering Provider: LUIS FERNANDO FONTANEZ Report Released Date/Time: Oct 10, 2023 08:28 AM Reporting Lab: [facility] [address] [facility] [phone] Performing Lab: [facility] [address] [facility] [address] PROTEIN,TOTAL 7.0 g/dL 6.0-8.3 ALBUMIN 3.6 g/dL 3.5-5.0 ALKALINE PHOSPHATASE 77 U/L 40-150 AST 21 U/L 5-34 ALT 14 U/L BILIRUBIN, TOTAL 0.4 mg/dL 0.2-1.2 Oct 10, 2023 02:00 PM [facility] LIPID PANEL, NON FASTING Specimen Type: SERUM No comment entered. Ordering Provider: LUIS FERNANDO FONTANEZ Report Released Date/Time: Oct 10, 2023 08:28 AM Reporting Lab: [facility] [address] [facility] [phone] Performing Lab: [facility] [address] [facility] [address] CHOLESTEROL 210 mg/dL H TRIGLYCERIDE 84 mg/dL 0-150 LDL calculated 133 mg/dL H 0-129 CHOL/HDL 3.5 HDL CHOLESTEROL 60 mg/dL 40-60 Oct 10, 2023 02:00 PM [facility] VITAMIN D (25-[place]) Specimen Type: SERUM No comment entered. Ordering Provider: LUIS FERNANDO FONTANEZ Report Released Date/Time: Oct 10, 2023 08:28 AM Reporting Lab: [facility] [address] [facility] [address] Performing Lab: [facility] [address] [facility] [address] VITAMIN D (25-[place]) 38 ng/mL 20-50 Oct 10, 2023 02:00 PM [facility] VITAMIN B12 Specimen Type: SERUM No comment entered. Ordering Provider: LUIS FERNANDO FONTANEZ Report Released Date/Time: Oct 10, 2023 08:28 AM Reporting Lab: [facility] [address] [facility] [address] Performing Lab: [facility] [address] [facility] [address] VITAMIN B12 767 pg/mL 200-900 Oct 10, 2023 02:00 PM [facility] HEMOGLOBIN A1C PANEL Specimen Type: BLOOD [...] 2023 08:28 AM Reporting Lab: [facility] [place] [facility] [address] [facility] [address] Performing Lab: [place] [facility] [facility] [address] [facility] [address] HEMOGLOBIN A1C 5.3 4.0-5.6 Oct 10, 2023 02:00 PM [facility] TSH Specimen Type: SERUM No comment entered. Ordering Provider: LUIS FERNANDO FONTANEZ Report Released Date/Time: Oct 10, 2023 08:28 AM Reporting Lab: [facility] [place] [place] [facility] [address] [facility] [phone] Performing Lab: [facility]N [facility] [address] [facility] [address] TSH 2.22 u[IU]/mL 0.35-5.00 Oct 10, 2023 02:00 PM [facility]ITALRINFIR[facility]N [facility] FERRITIN Specimen Type: SERUM No comment entered. Ordering Provider: LUIS FERNANDO FONTANEZ Report Released Date/Time: Oct 10, 2023 08:28 AM Reporting Lab: [facility] [address] [facility] [address] Performing Lab: [facility]N [facility] [address] [facility] [address] FERRITIN 106 ng/mL 20-300 Oct 10, 2023 02:00 PM [facility]ITALRINFIRMARY WESTN [facility] IRON & TIBC PANEL Specimen Type: SERUM No comment entered. Ordering Provider: LUIS FERNANDO FONTANEZ Report Released Date/Time: Oct 10, 2023 08:28 AM Reporting Lab: [facility]N [facility] [address] [facility] [phone] Performing Lab: [facility] TRN [facility] [address] [facility] [address] TIBC 330 ug/dL 204-475 IRON 102 ug/dL 40-160 Transferrin Saturation 30.9 20.0-50.0 Oct 10, 2023 02:00 PM [facility] CBC AND DIFF (AUTO) Specimen Type: BLOOD No comment entered. Ordering Provider: LUIS FERNANDO FONTANEZ Report Released Date/Time: Oct 10, 2023 08:28 AM Reporting Lab: [address] [address] Performing Lab: [address] [address] WBC 7.10 10*3/uL 4.50-11.00 RBC 5.13 10*6/uL 4.23-5.66 HGB 15.1 g/dL 12.8-17 HCT 45.5 39.2-50.4 MCV 88.7 fL 82-99 MCHC 33.2 g/dL 30.8-35.1 PLT 281 10*3/uL 140-360 RDW-CV 12.9 12.0-16.0 [place], Abs 0.67 10*3/uL 0.30-1.10 MCH 29.4 pg 26.2-32.6 Neut % 61.3 43.7-75.8 Lymph % 27.3 14.0-42.3 [place] % 9.4 5.1-13.7 Eos % 1.3 0.4-6.8 Baso % 0.4 0.1-2.0 Neut, Abs 4.35 10*3/uL 2.20-7.60 Lymph, Abs 1.94 10*3/uL 1.00-3.20 Eos, Abs 0.09 10*3/uL 0.03-0.44 Baso, Abs 0.03 10*3/uL 0.01-0.13 Immature Gran % 0.3 0.0-0.7 Immature Gran, Abs 0.02 10*3/uL 0.00-0.06 Oct 10, 2023 02:00 PM [facility] BASIC METABOLIC PANEL (non-fasting) Specimen Type: SERUM No comment entered. Ordering Provider: LUIS FERNANDO FONTANEZ Report Released Date/Time: Oct 10, 2023 08:28 AM Reporting Lab: [address] [address] Performing Lab: [facility] [address] [facility] [address] UREA NITROGEN 16 mg/dL 7-25 GLUCOSE 82 [...] 19, 2023 12:24 PM VA-TOBACCO NEVER USED [facility] Tobacco Use History This section includes a history of the smoking, or tobacco-related health factors, that were collected on or before the date of the Encounter. The data comes from the [place] facility where the Encounter took place. Date/Time Smoking Status/Tobacco Use Comment F acility Jan 15, 2021 11:00 AM VA-TOBACCO NEVER USED [facility] Advance Directives: All historical and current [...] Jan 20, 2021 ADVANCE DIRECTIVE BENTON ARAUZ [facility] Encounter Notes: All associated encounter notes This section contains the clinical notes associated to the Encounter. Date/Time Encounter Note(s) Provider Source Sep 20, 2023 10:47 AM SOCIAL WORK NOTE: LOCAL TITLE: PERSONAL CARE SERVICES REVIEW STANDARD TITLE: SOCIAL WORK NOTE DATE OF NOTE: SEP 20, 2023@10:47 ENTRY DATE: SEP 20, 2023@10:47:11 AUTHOR: DESMOND TOUSSAINT EXP COSIGNER: URGENCY: STATUS: COMPLETED Personal Care Services Review Type of review: 180 Day Information to complete oversight obtained from: Review of medical record Community vendor staff Specify Contact: Trav Community vendor Name: [facility] Community vendor point of contact Name: Trav The care plan has not been reviewed. Reason: n/a Care rendered as authorized. meets administrative eligibility criteria. meets clinical eligibility criteria. Case Mix Tool: Date Completed: Mar Case Mix Score: J The clinical decision has been made to authorize at a different Case Mix Score. Case Mix Score Used for Authorization: A Clinical justification: agency reported 9-10 hrs wkly, enrolled in [facility] unsure how this impacts approved hours First range of hours to be used. Plan: Authorization(s) to remain the same Homemaker/Home Health Aide Standardized Episode of Care (SEOC) SEOC duration: 365 days Hours per SEOC duration: 16 hrs asiya /sharron/ OLEG JOAQUIN PURCHASED PIT [employer] Signed: 09/20/2023 10:51 DESMOND TOUSSAINT [place] [facility]
--- OUTSIDE RECORDS SUMMARY | 2024-05-30 08:45 | XMS_ITS ---
Author Name [facility] [place] Address [address] [place] [address] Care Team Providers Care Engineering Mgr Name Role Phone LUIS FERNANDO FONTANEZ Primary [...] PRESCRIPT ION [id number] 1 Jun 20, 2017 [id number] [phone] EAMON OLIVIA ERT PATIENT MEDICARE (WNR) MEDICARE (M) PART A Jun 20, 2014 PART A [id number] EAMON OLIVIA ERT PATIENT MEDICARE (WNR) MEDICARE (M) PART B Jun 20, 2014 PART B [id number] [phone] EAMON OLIVIA ERT PATIENT MEDICARE (WNR) MEDICARE (M) PART A Jun 20, 2014 PART A [id number] EAMON OLIVIA ERT PATIENT MEDICARE (WNR) MEDICARE (M) PART B Jun 20, 2014 PART B [id number] [facility] [phone] EAMON OLIVIA ERT PATIENT OPTUM RX PRESCRIPT ION RX Jun 20, 2023 THPRX [id number] EAMON OLIVIA ERT PATIENT OPTUM RX PRESCRIPT ION RX Jun 20, 2022 THPRX [id number] [phone] EAMON OLIVIA ERT PATIENT OPTUM RX PRESCRIPT ION RX Jun 20, 2022 THPRX [id number] DAVON OLIVIA JR PATIENT [facility] MAR Jun 20, 2017 [id number] EAMON OLIVIA ERT PATIENT [facility] T[facility] PEÑA E Jun 20, 2017 [id number] DAVON OLIVIA JR PATIENT [facility] PLAN [facility] PEÑA E Jun 20, 2017 [id number] DAVON OLIVIA JR PATIENT [facility] USP Jun 20, 2017 USP [id number] [phone] EAMON OLIVIA ERT PATIENT [facility] TON Jun 20, 2023 [id number] [phone] EAMON OLIVIA ERT PATIENT Selected Encounter This section includes the information on record at [place] for the Encounter. Date/Time Encounter Type Encounter Description Reason Provider Source Oct 04, 2023 11:30 AM [facility]CP-SERV OF PT,EA 15 MIN [facility] - THERAPIST ICD-10-CM G20.C Parkinsonism, unspecified RAIVEL,RAMIN IHE Encounter Template Text not used by [place] Assessments - Encounter Diagnoses This section includes the primary and secondary diagnoses documented for the Encounter. Date/Time Primary/Secondary Diagnosis Diagnosis Name Provider Source Oct 07, 2023 08:08 AM PRIMARY Parkinsonism, unspecified RAIVEL,RAMIN [place] [facility] [place] [facility] Plan of Treatment: Future Appointments (+ 6 months) and Future Tests (+/- 45 days) The Plan of Treatment section includes future care activities for the patient from all [place] treatmentfacilities. This section includes future appointments and future orders which are active, pending or scheduled. Future Appointments This section includes appointments that were scheduled to occur 6 months from the date of the Encounter, up to a maximum of 20 appointments. The data comes from all [place] treatment facilities. Appointment Date/Time Appointment Type Appointme nt Facility Name Oct 17, 2023 01:00 PM AMBULATORY - MEDICINE IN [place] [facility] [facility] Oct 17, 2023 01:15 PM AMBULATORY - MEDICINE IN [place] [facility] [place] [facility] Dec 26, 2023 11:00 AM AMBULATORY - MEDICINE IN [place] [facility] [facility] Jan 04, 2024 01:00 PM AMBULATORY - NONE [place] [facility] [place] [facility] Feb 02, 2024 03:00 PM AMBULATORY - REHAB MEDICIN E [facility] [place] [facility] Feb 14, 2024 12:30 PM AMBULATORY - REHAB MEDICIN E [facility] [place] [facility] Mar 15, 2024 10:00 AM AMBULATORY - REHAB MEDICIN E [place] [facility] [place] [facility] Mar 22, 2024 08:00 AM AMBULATORY - MEDICINE IN [place] [facility] [place] [facility] Mar 22, 2024 01:00 PM AMBULATORY - NONE [place] [facility] [place] [place] [facility] Mar 27, 2024 02:30 PM AMBULATORY - MEDICINE IN [place] [facility] Mar 29, 2024 11:00 AM [facility] Lab Results: +/- 30 days of the encounter This section includes the Chemistry and Hematology Lab Results on record with [place] for the patient. Radiology Reports and Pathology Reports are provided separately, in subsequent sections. Lab Results This section contains the Chemistry/Hematology Results that were resulted 30 days before or 30 daysafter the date of the Encounter. Date/Time Source Result Type Result - Unit Interpretation Reference Range Comment Oct 10, 2023 02:00 PM [place] [facility] [place] [facility] FOLATE (WROX) Specimen Type: SERUM No comment entered. Ordering Provider: LUIS FERNANDO FONTANEZ Report Released Date/Time: Oct 10, 2023 08:28 AM Reporting Lab: [place] [facility] [place] [facility] [address] [facility] [address] Performing Lab: [facility] [address] [facility] [address] FOLATE (WROX) 13.68 ng/mL >5.2 Oct 10, 2023 02:00 PM [facility] LIVER FUNCTION Specimen Type: SERUM No comment entered. Ordering Provider: LUIS FERNANDO FONTANEZ Report Released Date/Time: Oct 10, 2023 08:28 AM Reporting Lab: [facility] [address] [facility] [address] Performing Lab: [facility] [address] [facility] [address] PROTEIN,TOTAL 7.0 g/dL 6.0-8.3 ALBUMIN 3.6 g/dL 3.5-5.0 ALKALINE PHOSPHATASE 77 U/L 40-150 AST 21 U/L 5-34 ALT 14 U/L BILIRUBIN, TOTAL 0.4 mg/dL 0.2-1.2 Oct 10, 2023 02:00 PM [facility] LIPID PANEL, NON FASTING Specimen Type: SERUM No comment entered. Ordering Provider: LUIS FERNANDO FONTANEZ A Report Released Date/Time: Oct 10, 2023 08:28 AM Reporting Lab: [facility] [address] [facility] [address] Performing Lab: [facility] [address] [facility] [address] CHOLESTEROL 210 mg/dL H TRIGLYCERIDE 84 mg/dL 0-150 LDL calculated 133 mg/dL H 0-129 CHOL/HDL 3.5 HDL CHOLESTEROL 60 mg/dL 40-60 Oct 10, 2023 02:00 PM [facility] VITAMIN D (25-OH) Specimen Type: SERUM No comment entered. Ordering Provider: LUIS FERNANDO FONTANEZ Report Released Date/Time: Oct 10, 2023 08:28 AM Reporting Lab: [facility] [address] [facility] [address] Performing Lab: [facility] [address] [facility] [address] VITAMIN D (25-OH) 38 ng/mL 20-50 Oct 10, 2023 02:00 PM [facility] VITAMIN B12 Specimen Type: SERUM No comment entered. Ordering Provider: LUIS FERNANDO FONTANEZ Report Released Date/Time: Oct 10, 2023 08:28 AM Reporting Lab: [facility] [address] [facility] [address] Performing Lab: [facility] [address] [facility] [address] VITAMIN B12 767 pg/mL 200-900 Oct 10, 2023 02:00 PM [facility] TSH Specimen Type: SERUM No comment entered. Ordering Provider: LUIS FERNANDO FONTANEZ Report Released Date/Time: Oct 10, 2023 08:28 AM Reporting Lab: [facility] [address] [facility] [address] Performing Lab: [facility] [address] [facility] [address] TSH 2.22 u[IU]/mL 0.35-5.00 Oct 10, 2023 02:00 PM [facility] HEMOGLOBIN A1C PANEL Specimen Type: [...] 10, 2023 08:28 AM Reporting Lab: [facility] [address] [facility] [address] Performing Lab: [facility] [address] [facility] [address] HEMOGLOBIN A1C 5.3 4.0-5.6 Oct 10, 2023 02:00 PM [facility] FERRITIN Specimen Type: SERUM No comment entered. Ordering Provider: LUIS FERNANDO FONTANEZ Report Released Date/Time: Oct 10, 2023 08:28 AM Reporting Lab: [facility] [address] [facility] [address] Performing Lab: [address] [address] FERRITIN 106 ng/mL 20-300 Oct 10, 2023 02:00 PM [facility] IRON & TIBC PANEL Specimen Type: SERUM No comment entered. Ordering Provider: LUIS FERNANDO FONTANEZ Report Released Date/Time: Oct 10, 2023 08:28 AM Reporting Lab: [facility] [address] [facility] [address] Performing Lab: [address] [address] TIBC 330 ug/dL 204-475 IRON 102 ug/dL 40-160 Transferrin Saturation 30.9 20.0-50.0 Oct 10, 2023 02:00 PM [facility] CBC AND DIFF (AUTO) Specimen Type: BLOOD No comment entered. Ordering Provider: LUIS FERNANDO FONTANEZ Report Released Date/Time: Oct 10, 2023 08:28 AM Reporting Lab: [address] [address] Performing Lab: [address] [address] WBC 7.10 10*3/uL 4.50-11.00 RBC 5.13 10*6/uL 4.23-5.66 HGB 15.1 g/dL 12.8-17 HCT 45.5 39.2-50.4 MCV 88.7 fL 82-99 MCHC 33.2 g/dL 30.8-35.1 PLT 281 10*3/uL 140-360 RDW-CV 12.9 12.0-16.0 Hinds, Abs 0.67 10*3/uL 0.30-1.10 MCH 29.4 pg 26.2-32.6 Neut % 61.3 43.7-75.8 Lymph % 27.3 14.0-42.3 Hinds % 9.4 5.1-13.7 Eos % 1.3 0.4-6.8 Baso % 0.4 0.1-2.0 Neut, Abs 4.35 10*3/uL 2.20-7.60 Lymph, Abs 1.94 10*3/uL 1.00-3.20 Eos, Abs 0.09 10*3/uL 0.03-0.44 Baso, Abs 0.03 10*3/uL 0.01-0.13 Immature Gran % 0.3 0.0-0.7 Immature Gran, Abs 0.02 10*3/uL 0.00-0.06 Oct 10, 2023 02:00 PM [facility] BASIC METABOLIC PANEL (non-fasting) Specimen Type: SERUM No comment entered. Ordering Provider: LUIS FERNANDO FONTANEZ Report Released Date/Time: Oct 10, 2023 08:28 AM Reporting Lab: [facility] [address] [facility] [address] Performing Lab: [address] [address] UREA NITROGEN 16 mg/dL 7-25 GLUCOSE 82 [...] and tobacco- related health factors from the [place] facility where the Encounter took place. Current Smoking Status This section includes the most current smoking, or tobacco-related health factor, from the [place] facility where the Encounter took place. Date/Time Current Smoking Status Comment Raghu ity Jan 19, 2023 12:24 PM IN-TOBACCO NEVER USED [facility] Tobacco Use History This section includes a history of the smoking, or tobacco-related health factors, that were collected on or before the date of the Encounter. The data comes from the [place] facility where the Encounter took place. Date/Time Smoking Status/Tobacco Use Comment F acility Jan 15, 2021 11:00 AM VA-TOBACCO NEVER USED [facility] Advance Directives: All historical and current Section Date Range: From patient's date of to the date document was created. This section includes ALL of a patient's completed or amended [place] Advance and Rescinded Directives. The entries below indicate that a directive exists for the patient, but an actual copy is not included with this document. The data comes from all [place] facilities. Date Advance Directives Provider Source Jan 20, 2021 ADVANCE DIRECTIVE BENTON ARAUZ ELZA Chacko [facility] Encounter Notes: All associated encounter notes This section contains the clinical notes associated to the Encounter. Date/Time Encounter Note(s) Provider Source Oct 04, 2023 10:30 AM HB NOTE: LOCAL TITLE: HBPC PHYSICAL THERAPY NOTE STANDARD TITLE: HBPC NOTE DATE OF NOTE: OCT 04, 2023@10:30 ENTRY DATE: OCT 07, 2023@07:54:05 AUTHOR: RAMIN MENDIETA EXP COSIGNER: URGENCY: STATUS: COMPLETED HB Physical Therapy Note Date: 10/04/23 Time: 11:30 am Diagnosis: parkinsonism, unspecified Treatment Diagnosis: As above, plus Active problems - Computerized Problem List is the source for the followin. Under care of multiple providers 2. Exposure to potentially hazardous substance 3. Long-term current use of anticoagulant 4. Gingivitis 5. Parkinsonism 6. Squamous cell carcinoma of skin 7. Basal cell carcinoma of skin 8. Hypotension 9. Benign prostatic hyperplasia 10. Hematuria 11. Diverticular disease of colon 12. Internal hemorrhoids 13. REM sleep behavior disorder 14. Peripheral vascular disease 15. Migraine 16. Solitary nodule of lung 17. Dupuytren's contracture 18. Multiple renal cysts 19. Atrial flutter 20. History of deep vein thrombosis 21. Memory loss 22. Sundowning 23. Urinary incontinence 24. Insomnia 25. Gastroesophageal reflux disease 26. AF- Atrial Fibrillation ([facility] [id number]) 27. Parkinson's disease 28. Kidney Stone ([facility] [id number]) Patient identified by facial recognition and address SUBJECTIVE: no complaints OBJECTIVE: GENERAL: Session conducted with ROBE Manufacture Minister Helper PAIN: Prior to treatment - none After treatment - none If > 3/10, intervention - If > 3/10, provider notified - VITAL SIGNS: deferred FALLS: patient denies any recent falls TREATMENT: PT in the Home - issued ROBE AP Shower Wheelchair Serial # [id number] with assist of ROBE Manufacture Minister Helper. Reviewed all features of shower wheelchair with patient and spouse and adjusted properly for patient. Spouse and patient demonstrate independence in use. Spouse had inadvertently refused threshold ramp for shower stall when vendor contacted them. Vendor has been directed to contact again. ASSESSMENT: Patient is a 73 year old with parkinsonism unspecified who now has a shower wheelchair along with new shower stall. Threshold ramp for shower stall to be delivered by vendor. Will follow up as required. WHOLE HEALTH WHOLE HEALTH EDUCATION Whole Health Education was provided. Patient was verbally educated on following Home Safety - safe use of ROBE Shower Chair Patient was verbally educated on following Durable Medical Equipment Safety - safe use of ROBE shower chair Home Oxygen (yes/no) - no If yes, patient was verbally educated on following Oxygen Safety - COACHING SKILLS Coaching or Motivational Interviewing skills used. VISIT INFORMATION Met with individual: In-person Length of Visit: 25 minutes PLAN Individual agreed to follow-up: In-person visit Follow-up will occur: as required /sharron/ RAMIN MENDIETA, PT, MS, ATP [facility]PC Physical Therapist Signed: 10/07/2023 08:08 RAMIN MENDIETA [facility] [place] [place] [facility]
--- OUTSIDE RECORDS SUMMARY | 2024-05-30 08:45 | XMS_ITS | Encounter Summary ---
Author Name [facility] [place] Organization [facility] Address [address] [place] [address] Care Team Providers Care Php Magento Developer Name Role Phone LUIS FERNANDO FONTANEZ Primary [...] ALT ION [id number] 1 Jun 20, 2017 [id number] [phone] EAMON OLIVIA ERT PATIENT MEDICARE (WNR) MEDICARE (M) PART A Jun 20, 2014 PART A [id number] EAMON OLIVIA ERT PATIENT MEDICARE (WNR) MEDICARE (M) PART B Jun 20, 2014 PART B [id number] EAMON OLIVIA ERT PATIENT MEDICARE (WNR) MEDICARE (M) PART A Jun 20, 2014 PART A [id number] [phone] EAMON OLIVIA ERT PATIENT MEDICARE (WNR) MEDICARE (M) PART B Jun 20, 2014 PART B [id number] [phone] EAMON OLIVIA ERT PATIENT OPTUM RX PRESCRIPT ION RX Jun 20, 2023 THPRX [id number] [phone] EAMON OLIVIA ERT PATIENT OPTUM RX PRESCRIPT ION RX Jun 20, 2022 THPRX [id number] EAMON OLIVIA ERT PATIENT OPTUM RX PRESCRIPT ION RX Jun 20, 2022 THPRX [id number] [phone] DAVON OLIVIA JR PATIENT [facility] TON MAR Jun 20, 2017 [id number] EAMON OLIVIA ERT PATIENT [facility] TON PEÑA E Jun 20, 2017 [id number] DAVON OLIVIA JR PATIENT [facility] PEÑA E Jun 20, 2017 [id number] [phone] DAVON OLIVIA JR PATIENT [facility] USP Jun 20, 2017 [facility] [id number] [phone] EAMON OLIVIA ERT PATIENT [facility] TON Jun 20, 2023 [id number] EAMON OLIVIA ERT PATIENT Selected Encounter This section includes the information on record at [place] for the Encounter. Date/Time Encounter Type Encounter Description Reason Provider Source Jan 04, 2024 01:00 PM SELF-MGMT EDUC & TRAIN 1 PT SLEEP MEDICINE ICD-10-CM G47.33 Obstructive sleep apnea (adult) (pediatric) CELESTINATE Horton E Encounter Template Text not used by [place] Assessments - Encounter Diagnoses This section includes the primary and secondary diagnoses documented for the Encounter. Date/Time Primary/Secondary Diagnosis Diagnosis Name Provider Source Jan 04, 2024 01:30 PM PRIMARY Obstructive sleep apnea (adult) (pediatric) CELESTINA,TE [place] [facility] [place] [facility] Plan of Treatment: Future Appointments (+ 6 months) and Future Tests (+/- 45 days) The Plan of Treatment section includes future care activities for the patient [facility] [place] [facility]. This section includes future appointments and future orders which are active, pending or scheduled. Future Appointments This section includes appointments that were scheduled to occur 6 months from the date of the Encounter, up to a maximum of 20 appointments. The data comes from all [place] treatment facilities. Appointment Date/Time Appointment Type Appointme nt Facility Name Feb 02, 2024 03:00 PM AMBULATORY - REHAB MEDICIN E [facility] [place] [facility] Feb 14, 2024 12:30 PM AMBULATORY - REHAB MEDICIN E [facility] [facility] Mar 15, 2024 10:00 AM AMBULATORY - REHAB MEDICIN E [facility] [facility] Mar 22, 2024 08:00 AM AMBULATORY - MEDICINE [place] [facility] Mar 22, 2024 01:00 PM AMBULATORY - NONE [facility] [place] [facility] Mar 27, 2024 02:30 PM AMBULATORY - MEDICINE [place] [place] [facility] Mar 29, 2024 11:00 AM AMBULATORY - REHAB MEDICIN E [facility] [facility] Apr 12, 2024 11:00 AM AMBULATORY - REHAB MEDICIN E [place] [facility] [facility] Apr 26, 2024 09:00 AM AMBULATORY - MEDICINE [place] [facility] Apr 26, 2024 11:00 AM AMBULATORY - REHAB MEDICIN [place] [facility] [place] [facility] Social History: Smoking Status (Most current) and Tobacco Use (All prior to encounter date) This section includes the most current, and the historical, smoking and tobacco- related health factors from the [place] facility where the Encounter took place. Current Smoking Status This section includes the most current smoking, or tobacco-related health factor, from the [place] facility where the Encounter took place. Date/Time Current Smoking Status Comment Raghu melchor Jan 19, 2023 12:24 PM [facility]ACCO [facility] Tobacco Use History This section includes a history of the smoking, or tobacco-related health factors, that were collected on or before the date of the Encounter. The data comes from the [place] facility where the Encounter took place. Date/Time Smoking Status/Tobacco Use Comment F acility Jan 15, 2021 11:00 AM VA-TOBACCO NEVER USED [facility] Advance Directives: All historical and current Section Date Range: From patient's date of to the date document was created. This section includes ALL of a patient's completed or amended [place] Advance and Rescinded Directives. The entries below indicate that a directive exists for the patient, but an actual copy is not included with this document. The data comes from all [place] facilities. Date Advance Directives Provider Source Jan 20, 2021 ADVANCE DIRECTIVE BENTON ARAUZ [facility] Encounter Notes: All associated encounter notes This section contains the clinical notes associated to the Encounter. Date/Time Encounter Note(s) Provider Source Jan 04, 2024 01:00 PM SLEEP MEDICINE CON SULT: LOCAL TITLE: SLEEP STUDY/CONSULT REPORT STANDARD TITLE: SLEEP MEDICINE CONSULT DATE OF NOTE: JAN 04, 2024@13:00 ENTRY DATE: JAN 04, 2024@13:30:32 AUTHOR: TE OSCAR EXP COSIGNER: URGENCY: STATUS: COMPLETED SLEEP STUDY/CONSULT REPORT Has ADDENDA Service Location [facility] [place] [address] Device Information DeviceName: [id number] DeviceSerialNumber: [id number] Patient was offered to receive home sleep testing device by mail and accepted. Verbal instruction was provided for use of home sleep testing equipment. All questions were answered and the patient expressed understanding of the provided instructions and care plan. [place] was mailed a package including: Written instructions on device use with links to online videos and instructions from the humanities instructor. Instructions on device return (does not apply to disposable device) and contact information for the sleep center. Educational materials on positive airway pressure therapy. Patient questionnaires. Other diagnosis- obstructive sleep apnea, patient's Tory assisted with video appt. Parkinson's disease Minutes professional time spent providing care.: 30 min /sharron/ MARTIN BECKHAM CAR ESCORT Signed: 01/04/2024 13:30 01/04/2024 ADDENDUM STATUS: COMPLETED [facility] Video Connect (VVC) Standard Documentation VVC Clinician Resources Only: E911 (Emergency Call Relay Center): [phone] National Veterans Crisis Line - 988 then press #1. CHITRA Suicide Coordinator [phone], Ext. [phone]; Back-up Ext. [phone] [place] Police, [place] [phone] Introduction: Visit is being conducted by [place] [facility]. identified with 2 identifiers: [X] Full Name [X] Date of [ ] VA ID Card Emergency Plan: confirmed and/or provided the following information in case of emergency or technology failure. PATIENT PHONE - PHONE NUMBER [CELLULAR] - NONE FOUND Is patient phone number correct, if not, enter below: 's phone number: DAVON OLIVIA JR [address], [place], [address] 's present location and address for appointment: [address]OVE [place]'s emergency contact name and phone number: TORY OLIVIA-SYED [phone] [place] reported that location is private and safe: Yes Informed Consent: informed of the risks and benefits of Telehealth video care. has the right to refuse video services. If refuses video visit, a [id number] visit will be scheduled. [place] verbalized consent for this video visit: Yes [place] provided consent for any other persons present for visit: Yes If yes, who and relationship to patient:TORY-SYED Secure visit: Visit was locked for security and privacy:Yes /sharron/ MARTIN BECKHAM CAR ESCORT Signed: 01/04/2024 13:32 TE OSCAR [place] [facility]
--- OUTSIDE RECORDS SUMMARY | 2024-05-30 08:45 | XMS_ITS ---
Author Name [facility] [place] Address [address] [place] [id number] Care Team Providers Care Saw Straightener Name Role Phone LUIS FERNANDO FONTANEZ Primary [...] ALT ION [id number] 1 Jun 20, 2017 [id number] [phone] EAMON OLIVIA ERT PATIENT MEDICARE (WNR) MEDICARE (M) PART A Jun 20, 2014 PART A [id number] [phone] EAMON OLIVIA ERT PATIENT MEDICARE (WNR) MEDICARE (M) PART B Jun 20, 2014 PART B [id number] [phone] EAMON OLIVIA ERT PATIENT MEDICARE (WNR) MEDICARE (M) PART A Jun 20, 2014 PART A [id number] [phone] EAMON OLIVIA ERT PATIENT MEDICARE (WNR) MEDICARE (M) PART B Jun 20, 2014 PART B [id number] EAMON OLIVIA ERT PATIENT OPTUM RX PRESCRIPT ION RX Jun 20, 2023 THPRX [id number] EAMON OLIVIA ERT PATIENT OPTUM RX PRESCRIPT ION RX Jun 20, 2022 THPRX [id number] [phone] EAMON OLIVIA ERT PATIENT OPTUM RX PRESCRIPT ION RX Jun 20, 2022 THPRX [id number] DAVON OLIVIA JR PATIENT [facility] Jun 20, 2017 [id number] EAMON OLIVIA ERT PATIENT [facility] Jun 20, 2017 [id number] DAVON OLIVIA JR PATIENT [facility] Jun 20, 2017 [id number] DAVON OLIVIA JR PATIENT [facility] Jun 20, 2017 USP [id number] EAMON OLIVIA ERT PATIENT [facility] Jun 20, 2023 [id number] EAMON OLIVIA ERT PATIENT Selected Encounter This section includes the information on record at [place] for the Encounter. Date/Time Encounter Type Encounter Description Reason Pro vider Source Jan 16, 2024 10:10 AM Outpatient Encounter [facility] PHYSIC EXTND(SPECIAL EDUCATION BUS DRIVER,AUTOMATIC BUFFING WHEEL FORMER,PA) IHE Encounter Template Text not used by [...] [facility]HAB MEDIC[facility] [place] [facility] Feb 14, 2024 12:30 PM AMBULATORY - REHAB MEDICIN E [facility] [place] [facility] Mar 15, 2024 10:00 AM AMBULATORY - REHAB MEDICIN E [facility] [place] [facility] Mar 22, 2024 08:00 AM AMBULATORY - MEDICINE [facility] [place] [facility] Mar 22, 2024 01:00 PM AMBULATORY - NONE [facility] [place] [facility] Mar 27, 2024 02:30 PM AMBULATORY - MEDICINE [facility] [place] [facility] Mar 29, 2024 11:00 AM AMBULATORY - REHAB MEDICIN E [facility] [place] [facility] Apr 12, 2024 11:00 AM AMBULATORY - REHAB MEDICIN E [facility] [place] [facility] Apr 26, 2024 09:00 AM AMBULATORY - MEDICINE [facility] [place] [facility] Apr 26, 2024 11:00 AM AMBULATORY - REHAB MEDICIN E [facility] [place] [facility] Active, Pending, and Scheduled Orders This section includes a listing of several types of active, pending, and scheduled orders, including clinic medications orders, diagnostic test orders, procedure orders and consult orders; where the start date of the order is 45 days before the date of the Encounter or 45 days after the date of theEncounter. The data comes from all [place] treatment facilities. Test Date/Time Test Type Test Details Facility Name Feb 29, 2024 07:27 AM Consult Order COMMUNITY CARE-GEC NON-SKILLED HOME HEALTH AIDE Cons Gun Number's Choice [place] [facility] [place] [facility] Feb 29, 2024 01:44 PM Consult Order COMMUNITY CARE-SPEECH THERAPY Cons Gun Number's Choice [place] [facility] [place] [facility] Social History: Smoking Status (Most current) [...] 19, 2023 12:24 PM VA-TOBACCO NEVER USED [facility] Tobacco Use History This section includes a history of the smoking, or tobacco-related health factors, that were collected on or before the date of the Encounter. The data comes from the [place] facility where the Encounter took place. Date/Time Smoking Status/Tobacco Use Comment Flex acneri Jan 15, 2021 11:00 AM VA-TOBACCO NEVER USED [facility] Advance Directives: All historical and [...] Jan 20, 2021 ADVANCE DIRECTIVE [facility] Encounter Notes: All associated encounter notes This section contains the clinical notes associated to the Encounter. Date/Time Encounter Note(s) Provider Source Jan 16, 2024 10:10 AM ADMINISTRATIVE NOTE: LOCAL TITLE: FAX/MAIL RECEIVED STANDARD TITLE: ADMINISTRATIVE NOTE DATE OF NOTE: JAN 16, 2024@10:10 ENTRY DATE: JAN 16, 2024@10:10:25 AUTHOR: MARIAH FLORES EXP COSIGNER: URGENCY: STATUS: COMPLETED Document Received On: Dec Document Type: Imaging Date of Service: Dec Facility and or Provider: [facility] Contact Information: PCP of Record: LUIS FERNANDO FONTANEZ Next visit with PCP: No future appointments Primary Care May keep copies of this document for up to 14 days and send the original for scanning. /sharron/ MARIAH GASTON AMSA Signed: 01/16/2024 10:11 Receipt Acknowledged By: 01/16/2024 19:48 /es/ JENNIFER SEGURA MORTGAGE LOAN SPECIALIST [facility] AIRCRAFT LAY OUT WORKER 01/16/2024 17:59 /es/ CANDICE JASMINE HBDARSHAN NURSE PRACTITIONER for LUIS FERNANDO Chacko MARIAH LOPES [facility]
--- OUTSIDE RECORDS SUMMARY | 2024-05-30 08:45 | XMS_ITS | Encounter Summary ---
Author Name [facility] [place] [facility] [place] Address [address] [place] [address] Care Team Providers Care Net Programmer Analyst Name Role Phone LUIS FERNANDO FONTANEZ [...] PRESCRIPT ION [id number] 1 Jun 20, 2017 [id number] [phone] EAMON OLIVIA ERT PATIENT MEDICARE (WNR) MEDICARE (M) PART A Jun 20, 2014 PART A [id number] EAMON OLIVIA ERT PATIENT MEDICARE (WNR) MEDICARE (M) PART B Jun 20, 2014 PART B [id number] EAMON OLIVIA ERT PATIENT MEDICARE (WNR) MEDICARE (M) PART A Jun 20, 2014 PART A [id number] EAMON OLIVIA ERT PATIENT MEDICARE (WNR) MEDICARE (M) PART B Jun 20, 2014 PART B [id number] [facility] EAMON OLIVIA ERT PATIENT OPTUM RX PRESCRIPT ION RX Jun 20, 2023 THPRX [id number] [phone] EAMON OLIVIA ERT PATIENT OPTUM RX PRESCRIPT ION RX Jun 20, 2022 THPRX [id number] EAMON OLIVIA ERT PATIENT OPTUM RX PRESCRIPT ION RX Jun 20, 2022 THPRX [id number] DAVON OLIVIA JR PATIENT [facility] Jun 20, 2017 [id number] EAMON OLIVIA ERT PATIENT [facility] E Jun 20, 2017 [id number] DAVON OLIVIA JR PATIENT [facility] Jun 20, 2017 [id number] DAVON OLIVIA JR PATIENT [facility] Jun 20, 2017 [facility] [id number] [phone] EAMON OLIVIA ERT PATIENT [facility] Jun 20, 2023 [id number] EAMON OLIVIA ERT PATIENT Selected Encounter This section includes the information on record at [place] for the Encounter. Date/Time Encounter Type Encounter Description Reason Provider Source Dec 13, 2023 11:30 AM [facility]-SERV OF PT,EA 15 MIN [facility] - THERAPIST ICD-10-CM G20.C Parkinsonism, unspecified RAIVEL,RAMIN IHE Encounter Template Text not used by [place] Assessments - Encounter Diagnoses This section includes the primary and secondary diagnoses documented for the Encounter. Date/Time Primary/Secondary Diagnosis Diagnosis Name Provider Source Dec 15, 2023 11:03 AM PRIMARY Parkinsonism, unspecified RAIVEL,RAMIN [facility] [place] [facility] Plan of Treatment: Future Appointments (+ [...] 26, 2023 11:00 AM AMBULATORY - MEDICINE [place] [facility] [place] [facility] Jan 04, 2024 01:00 PM AMBULATORY - NONE [facility] [place] [facility] Feb 02, 2024 03:00 PM AMBULATORY - REHAB MEDICIN E [facility] [place] [facility] Feb 14, 2024 12:30 PM AMBULATORY - REHAB MEDICIN E [facility] [place] [facility] Mar 15, 2024 10:00 AM AMBULATORY - REHAB MEDICIN E [facility] [place] [facility] Mar 22, 2024 08:00 AM AMBULATORY - MEDICINE DC [facility] [place] [facility] Mar 22, 2024 01:00 PM AMBULATORY - NONE [facility] [place] [facility] Mar 27, 2024 02:30 PM AMBULATORY - MEDICINE DC [facility] [place] [facility] Mar 29, 2024 11:00 AM AMBULATORY - REHAB MEDICIN E [facility] [place] [facility] Apr 12, 2024 11:00 AM AMBULATORY - REHAB MEDICIN E [facility] [place] [facility] Apr 26, 2024 09:00 AM AMBULATORY - MEDICINE DC [facility] [place] [facility] Apr 26, 2024 11:00 AM AMBULATORY - REHAB MEDICIN E [place] [facility] [place] [facility] Social History: Smoking Status (Most current) [...] 19, 2023 12:24 PM [facility] Tobacco Use History This section includes a history of the smoking, or tobacco-related health factors, that were collected on or before the date of the Encounter. The data comes from the [place] facility where the Encounter took place. Date/Time Smoking Status/Tobacco Use Comment F acneri Jan 15, 2021 11:00 AM VA-TOBACCO NEVER USED [facility] Advance Directives: All historical and current Section [...] Jan 20, 2021 ADVANCE DIRECTIVE [facility] Encounter Notes: All associated encounter notes This section contains the clinical notes associated to the Encounter. Date/Time Encounter Note(s) Provider Source Dec 13, 2023 11:30 AM [facility] NOTE: LOCAL TITLE: HB PHYSICAL THERAPY NOTE STANDARD TITLE: [facility] NOTE DATE OF NOTE: DEC 13, 2023@11:30 ENTRY DATE: DEC 15, 2023@09:52:32 AUTHOR: RAMIN MENDIETA EXP COSIGNER: URGENCY: STATUS: COMPLETED [facility] Physical Therapy Note Date: 12/13/23 Time: 11:30 am Diagnosis: parkinsonism, unspecified Treatment Diagnosis: As above, plus Active problems - Computerized Problem List is the source for the followin. Constipation 2. Under care of multiple providers 3. Exposure to potentially hazardous substance 4. Long-term current use of anticoagulant 5. Gingivitis 6. Parkinsonism 7. Squamous cell carcinoma of skin 8. Basal cell carcinoma of skin 9. Hypotension 10. Benign prostatic hyperplasia 11. Hematuria 12. Diverticular disease of colon 13. Internal hemorrhoids 14. REM sleep behavior disorder 15. Peripheral vascular disease 16. Migraine 17. Solitary nodule of lung 18. Dupuytren's contracture 19. Multiple renal cysts 20. Atrial flutter 21. History of deep vein thrombosis 22. Memory loss 23. Sundowning 24. Urinary incontinence 25. Insomnia 26. Gastroesophageal reflux disease 27. AF- Atrial Fibrillation (SCT [id number]) 28. Parkinson's disease 29. Kidney Stone ([facility] [id number]) Patient identified by facial recognition and address SUBJECTIVE: spouse tearful at end of session, states cannot take care of patient anymore, only got 4 hours of sleep last night OBJECTIVE: PAIN: Prior to treatment - none After treatment - none If > 3/10, intervention - If > 3/10, provider notified - VITAL SIGNS: deferred FALLS: yes, 12/06/23 TREATMENT: PT in the Home - evaluated the following equipment in the home: Hospital Bed - extra bed rail, spouse educated that the [place] cannot provide an extra bed rail as it is considered a restraint. Also, spouse states that hospital bed thunks and the head of bed slips downward quickly. Could not reproduce this after 5 minutes of trying. Spouse refused a hospital bed repair vendor to evaluate. Multipodus Boots - spouse states that she cannot use the multipodus boots that were delivered to patient because of the threaded bolt that is sticking out of the bottom; states that it is going to rip the sheets up Michael Lift - spouse states needs Michael Lift to reposition patient in bed - will order Block to prevent patient from sliding down in bed - will order a foot positioning pad ASSESSMENT: Patient is a 73 year old with parkinsonism, unspecified who needs a Michael Lift, something to prevent foot drop, and a block to prevent patient from sliding down in bed. A foot positioning pad may solve both the sliding down in bed and the foot drop. Will order Michael Lift and foot positioning pad. WHOLE HEALTH WHOLE HEALTH EDUCATION Whole Health Education was provided. Patient was verbally educated on following Home Safety - safe use of Michael Lift Patient was verbally educated on following Durable Medical Equipment Safety - safe lift of Michael Lift, foot drop device, bed block or pad that prevent sliding down in bed Home Oxygen (yes/no) - no If yes, patient was verbally educated on following Oxygen Safety - COACHING SKILLS Coaching or Motivational Interviewing skills used. VISIT INFORMATION Met with individual: In-person Length of Visit: 30 minutes PLAN Individual agreed to follow-up: In-person visit Follow-up will occur: when equipment is delivered /consuelo MENDIETA, PT, MS, ATP [facility] Physical Therapist Signed: 12/15/2023 11:03 RAMIN MENDIETA [facility] [place] [facility] Dec 13, 2023 11:30 AM NURSING FALL RISK ASSESSMENT NOTE: LOCAL TITLE: [facility] POST FALL ASSESSMENT NOTE STANDARD TITLE: NURSING FALL RISK ASSESSMENT NOTE DATE OF NOTE: DEC 13, 2023@11:30 ENTRY DATE: DEC 15, 2023@11:04:17 AUTHOR: RAMIN MENDIETA EXP COSIGNER: URGENCY: STATUS: COMPLETED [facility] FALL ASSESSMENT NOTE Date of Fall: 12/06/23 Time of Fall: AM Stud Driver: Jennifer Segura Fall was witnessed: No Description of Fall: Where: Bathroom How: Tried to get up Injury: Yes Location: Middle back Side: N/A Other Information Pertinent to Fall: Patient hit back on toilet. Spouse assisted patient back up and walked to bathroom door to wheelchair. Spouse states hurt both shoulders doing this. Bruise on middle back, but not present during this visit. Level of Injury: 1 = Minor (bruises, scrapes, no increase in level of care) Symptoms Prior to Fall: none Assistive Device in Use at Time of Fall: none Contributing Factors at time of fall: gait or imbalance, recent cognitive changes Environmental Factors: none Contributing diagnosis to current fall: neurological (ALS, MS, Parkinson's) If fall occurred while /HB staff was providing direct patient care in the home, report on Joint Patient Safety Reporting Site (JPSR) found on [facility] Intranet home page. No, not applicable Is patient currently receiving PT/OT services: Yes Pt referred to PT/OT: Yes Patient Declines NO Interventions: PCP Notified, [facility] PSA Notified, Education was provided to patient and/or family regarding risk factors and prevention of future falls., Any additional education provided?Offered [facility] Social Work to work through caregiving issues Program Follow-up: Interdisciplinary Team reviews recent falls and modifies Patient's care plan as appropriate. Practicing Md Anesthesiologist (or designee) tracks all falls, observes trends, and modifies Falls Prevention Plan as needed. Fall data is reported to [facility] Patient Supply Chain Engineer on a quarterly basis. /consuelo MENDIETA, PT, MS, ATP [facility] Physical Therapist Signed: 12/15/2023 11:14 Receipt Acknowledged By: 12/16/2023 03:30 /es/ DANIELLE FLORES OTR/Tricia [facility] OCCUPATIONAL THERAPIST 12/15/2023 11:32 /es/ KALYAN BARBER [facility] AUTHORIZATION MANAGER for MARIAH FLORES 12/15/2023 13:40 /es/ AMANDO OHARA WAFER SUBSTRATE TESTER [facility] 12/15/2023 11:42 /es/ SPRING NEVES, PT [facility] PHYSICAL THERAPIST 12/16/2023 10:22 /es/ JENNIFER SEGURA, SOFTWARE ENGINEERING MANAGER [facility] SOFTWARE ENGINEERING PROJECT MANAGER 12/15/2023 13:36 /es/ LUIS FERNANDO FONTANEZ PRIVATE DUTY NURSE-C [facility] NURSE PRACTITIONER RAMIN MENDIETA [facility]
--- OUTSIDE RECORDS SUMMARY | 2024-05-30 08:45 | XMS_ITS | Encounter Summary ---
Author Name [facility] [place] [facility] [place] [facility] [facility] [place] Address [address] [place] [address] Care Team Providers Care Legal Job Titles Name Role Phone LUIS FERNANDO FONTANEZ Primary [...] PRESCRIPT ION [id number] 1 Jun 20, 2017 [id number] EAMON OLIVIA ERT PATIENT MEDICARE (WNR) MEDICARE (M) PART A Jun 20, 2014 PART A [id number] [phone] EAMON OLIVIA ERT PATIENT MEDICARE (WNR) MEDICARE (M) PART B Jun 20, 2014 PART B [id number] EAMON OLIVIA ERT PATIENT MEDICARE (WNR) MEDICARE (M) PART A Jun 20, 2014 PART A [id number] EAMON OLIVIA ERT PATIENT MEDICARE (WNR) MEDICARE (M) PART B Jun 20, 2014 PART B [id number] EAMON OLIVIA ERT PATIENT OPTUM RX PRESCRIPT ION RX Jun 20, 2023 THPRX [id number] EAMON OLIVIA ERT PATIENT [employer] RX PRESCRIPT ION RX Jun 20, 2022 THPRX [id number] EAMON OLIVIA ERT PATIENT OPT[employer] RX PRESCRIPT ION RX Jun 20, 2022 THPRX [id number] DAVON OLIVIA JR PATIENT [facility] Jun 20, 2017 [id number] [phone] EAMON OLIVIA ERT PATIENT [facility] E Jun 20, 2017 [id number] [phone] DAVON OLIVIA JR PATIENT [facility] E Jun 20, 2017 [id number] [phone] DAVON OLIVIA JR PATIENT [facility] USP Jun 20, 2017 USP [id number] EAMON OLIVIA ERT PATIENT [facility] Jun 20, 2023 [id number] EAMON OLIVIA ERT PATIENT Selected Encounter This section includes the information on record at [place] for the Encounter. 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 Date/Time Primary/Secondary Diagnosis Diagnosis Name Provider Source Jan 11, 2024 04:07 PM PRIMARY Other senior living (current) drug therapy DA GEORGE [facility] [place] [facility] Plan of Treatment: Future Appointments (+ 6 months) and Future Tests (+/- 45 days) The Plan of Treatment section includes future care activities for the patient from all [place] [facility]. This section includes future appointments and future orders which are active, pending or scheduled. Future Appointments This section includes appointments that were scheduled to occur 6 months from the date of the Encounter, up to a maximum of 20 appointments. The data comes from all [place] treatment facilities. Appointment Date/Time Appointment Type Appointme nt Facility Name Feb 02, 2024 03:00 PM AMBULATORY - REHAB MEDICIN E [facility] [place] [facility] Feb 14, 2024 12:30 PM AMBULATORY - REHAB MEDICIN E [facility] [place] [facility] Mar 15, 2024 10:00 AM AMBULATORY - REHAB MEDICIN E [facility] [place] [facility] Mar 22, 2024 08:00 AM AMBULATORY - MEDICINE [facility] [place] [facility] Mar 22, 2024 01:00 PM AMBULATORY - NONE [facility] [place] [facility] Mar 27, 2024 02:30 PM AMBULATORY - MEDICINE [facility] [place] [facility] Mar 29, 2024 11:00 AM AMBULATORY - REHAB MEDICIN E [facility] [place] [facility] Apr 12, 2024 11:00 AM AMBULATORY - REHAB MEDICIN E [facility] [place] [facility] Apr 26, 2024 09:00 AM AMBULATORY - MEDICINE [facility] [place] [facility] Apr 26, 2024 11:00 AM AMBULATORY - REHAB MEDICIN E [facility] [place] [facility] Social History: Smoking Status (Most current) and Tobacco Use (All prior to encounter date) This section includes the most current, and the historical, smoking and tobacco- related health factors from the [place] facility where the Encounter took place. Current Smoking Status This section includes the most current smoking, or tobacco-related health factor, from the [place] facility where the Encounter took place. Date/Time Current Smoking Status Shonda melchor Jan 19, 2023 12:24 PM VA-TOBACCO NEVER USED [facility] Tobacco Use History This section includes a history of the smoking, or tobacco-related health factors, that were collected on or before the date of the Encounter. The data comes from the [place] facility where the Encounter took place. Date/Time Smoking Status/Tobacco Use Comment F acility Jan 15, 2021 11:00 AM VA-TOBACCO NEVER USED [facility] Advance Directives: All historical and current Section Date Range: From patient's date of to the date document was created. This section includes ALL of a patient's completed or amended [place] Advance and Rescinded Directives. The entries below indicate that a directive exists for the patient, but an actual copy is not included with this document. The data comes from all [place] facilities. Date Advance Directives Provider Source Jan 20, 2021 ADVANCE DIRECTIVE DAVIDSHAJIBENTON SALCEDO [facility] Encounter Notes: All associated encounter notes This section contains the clinical notes associated to the Encounter. Date/Time Encounter Note(s) Provider Source Jan 11, 2024 03:25 PM [facility] MEDICATION MGT NOTE: LOCAL TITLE: [facility] PHARMACY MEDICATION REVIEW STANDARD TITLE: [facility] MEDICATION MGT NOTE DATE OF NOTE: JAN 11, 2024@15:25 ENTRY DATE: JAN 11, 2024@15:25:45 AUTHOR: CANDICE GEORGE EXP COSIGNER: URGENCY: STATUS: COMPLETED DAVON OLIVIA JR is a 73 year old WHITE MALE. Active Problem Constipation K59.00 10/21/2023 CÉSAR JONES Under care of multiple providers R6 10/05/2023 LUIS FERNANDO FONTANEZ Exposure to potentially hazardous s 08/31/2023 KYLER WARREN A Long-term current use of anticoagul 05/27/2023 TAYLOR ROSA Gingivitis K05.10 05/20/2023 CÉSAR JONES Parkinsonism G20.C 03/21/2023 RISHI GONZALEZ JAWED Squamous cell carcinoma of skin C44 01/27/2023October,VALD Patel Basal cell carcinoma of skin C44.91 01/27/2023October,VLAD Patel Hypotension I95.9, Onset 01/27/2023OctoberVLAD Benign prostatic hyperplasia N40.0, 01/27/2023October,VLAD Patel Hematuria R31.9, Onset 01/27/2023October,VLAD P Diverticular disease [...] disease K21 01/19/2023October,VLAD P AF- Atrial Fibrillation ([facility] [id number] 10/05/2023 LUIS FERNANDO FONTANZE A Parkinson's disease G20.A1 09/01/2023 LUIS FERNANDO FONTANEZ A Kidney Stone ([facility] [id number]) N20.0 01/15/2021 VIJAY CHA Alcohol (-) Tobacco [...] ACTIVE (S) DAILY FOR STOMACH ACID 9) GLYCOPYRROLATE 2MG TAB TAKE ONE TABLET BY MOUTH ACTIVE DIRECTED BY PROVIDER 2-3 TIMES PER DAY NEEDED FOR SECRETIONS 10) HYDROCHLOROTHIAZIDE 25MG TAB TAKE ONE TABLET BY MOUTH ACTIVE (S) ONCE DAILY FOR HIGH BLOOD PRESSURE 11) HYDROPHILIC (EQV EUCERIN) TOP CREAM APPLY A LIBERAL ACTIVE AMOUNT TOPICALLY ONCE DAILY FOR DRY SKIN 12) HYDROXYZINE HCL 10MG TAB TAKE ONE TABLET BY MOUTH AT ACTIVE BEDTIME dose 10mg qHS prn 13) INCONT LINER PREVAIL GUARDS #[id number] USE 1 LINER ACTIVE TOPICALLY TWO TIMES A DAY 14) INCONT LINER,MENS X-HVY SURECARE #[id number] USE 1 LINER HOLD TOPICALLY AT BEDTIME 15) INCONTINENCE WRAP,MALE USE 1 INCONTINENCE WRAP ACTIVE TOPICALLY AT BEDTIME 16) MELATONIN 5MG CAP/TAB TAKE THREE CAPSULE/TABLETS BY HOLD MOUTH AT BEDTIME FOR INSOMNIA 17) MEMANTINE HCL 10MG TAB TAKE ONE TABLET BY MOUTH TWICE ACTIVE DAILY 18) MIDODRINE HCL 5MG TAB TAKE ONE TABLET BY MOUTH THREE ACTIVE TIMES DAILY NEEDED FOR LOW BLOOD PRESSURE 19) MULTIVITAMIN/MINERALS CAP/TAB TAKE 1 TABLET BY MOUTH ACTIVE (S) ONCE DAILY FOR VITAMIN SUPPLEMENTATION 20) OATMEAL,COLLOIDAL CLEANSING BAR/DRY [...] ONE TABLET BY MOUTH ACTIVE ONCE DAILY 24) UNDERPAD,BED ULTRASORB [id number] M#[id number] USE 2 UNDERPADS ACTIVE TOPICALLY AT BEDTIME Inactive Outpatient Medications Status 1) GLYCOPYRROLATE 2MG TAB TAKE ONE TABLET BY MOUTH DIRECTED BY PROVIDER 2-3 TIMES A DAY NEEDED FOR SECRETIONS Active Non-VA Medications Status 1) Non-VA DOCUSATE [...] lorazepam Excessive Duration: none Duplication of therapy: active and glycopyrrolate - will d/c duplicate Labs: CBC TREND Collection DT Spec WBC [...] 38 ng/mL 20 - 50 SERUM Apr 22 Apr 22 Dec 07 Dec 07 Reference 2023 2023 2022 2022 14:00 14:00 12:00 12:00 Units Ranges B12 767 610 pg/mL 200 - 900 FOLATE 13.68 13.04 ng/mL Ref: >=5.2 CrCl: 48.2 mL/min (C&G, IBW) Vitals: Ht: 65 in [165.1 cm] (04/26/2023 11:00) Wt: 167 lb [75.75 kg] (04/26/2023 11:00) BMI: BMI: 27.8 BP: 112/78 (12/27/2023 10:22) HR: 68 (12/27/2023 10:22) Pain: 0 (12/27/2023 10:22) ASSESSMENT: In the last 90 days - No hospitalizations/infections noted - [facility] RN 10/25/23: [facility] neurology increased carbidopa/levodopa SA 25/100mg 1 tab TID to 1 tab 4x/day on 10/19/23 - [facility] post fall note 10/25/23: Where: TV Room. How: Misjudged edge of couch - no pharmacy med review requested - [facility] PLAN CONSULTANT letter 11/09/23: no afib found on recent Zio monitor. No med changes - [facility] PLAN CONSULTANT phone 11/11/23: reviewed risks/benefits on continuing apixaban despite no afib found on recent heart monitor. Per cardiology e-consult, pt may still be at high risk for TE events due to elevated CHADS2-VASc2 score of 2 - 11/17/23: approval for [facility] glycopyrolate 2mg 2-3x/day as ordered by [facility] neurology - [facility] post fall note 12/13/23: Patient hit back on toilet. Spouse assisted patient back up and walked to bathroom door to wheelchair. Spouse states hurt both shoulders doing this. Bruise on middle back, but not present during this visit. - no pharmacy med review requested - 12/27/23: [facility] neurology updated order for hydroxyzine 10mg qHS prn to 10mg qHS INTERVENTIONS/SUGGESTIONS: 1. Patient's medications were reviewed for significant drug interactions. - Concurrent use of HYDROXYZINE and FAMOTIDINE may result in an increased risk of QT interval prolongation. -> QTc 435 ms on 10/17/23 - Concurrent use of GLYCOPYRROLATE and HYDROXYZINE may result in an increased risk of anticholinergic side effects. - Concurrent use of MIDODRINE and RASAGILINE [...] risk of serious complication from fall) carbidopa/levodopa glycopyrrolate HCTZ hydroxyzine lorazepam memantine rasagiline To reduce the risk for falls, educate pt re: safe postural transitions and s/s orthostatic hypotension. Also monitor for signs of ANIMAL KILLER depression and gait disturbances during ambulation. Could [...] appropriate indication and supporting clinical symptoms EXCEPT: glycopyrrolate HCTZ 6. Adherence Issues: PEG powder 17g daily - last filled 08/05/23 x 90 days 7. Health Maintenance: > Immunizations: The CDC recommends two doses of the zoster vaccine (Shingrix) for immunocompetent adults >/= 50 (even if previously vaccinated with ZostaVax). Two injections are needed by 2-6 months. Patient is otherwise UTD. > Bladder/Bowel: Inquire about incontinence and severity biannually. > Exercise/Physical Activity [id number] aerobic activity 3-5x per week. Weight or resistance exercises. Flexibility activities to maintain ROM. Balance training to improve stability and prevent falls. > Bone Health: Calcium/vitamin D (diet and/or supplement): Men >70 yo: 1200mg Ca/800 international units vit D daily 8. Patient with zero refills on: glycopyrrolate, hyroxyzine 9. Continue to review quarterly. 10. Other - Due for Shingrix vaccine per reminders. - Add an indication to problem list for glycopyrrolate and HCTZ. - Assess adherence to PEG powder 17g daily (last filled on 08/05/23 x 90 days). Consider updating order to prn if pt is not taking daily. The details of this review were shared with the IDT in order to assist in creating a care plan designed to provide services focused on the health and well being of the patient. Time Spent: 50 min /sharron/ Candice George PharmD Clinical Grading Clerk Signed: 01/12/2024 11:05 Receipt Acknowledged By: 01/16/2024 15:35 /sharron/ JENNIFER SEGURA CUTTING AND PRINTING MACHINE OPERATOR [facility] ADULT BASIC EDUCATION TEACHER 01/13/2024 09:11 /sharron/ LUIS FERNANDO CHIU HB NURSE PRACTITIONER [facility]
--- OUTSIDE RECORDS SUMMARY | 2024-05-30 08:45 | XMS_ITS ---
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 Name Role Phone HUSEYIN LUIS FERNANDO [...] SIMS ION [id number] 1 Jun 20, 2017 [id number] EAMON OLIVIA ERT PATIENT MEDICARE (WNR) MEDICARE (M) PART A Jun 20, 2014 PART A [id number] EAMON OLIVIA ERT PATIENT MEDICARE (WNR) MEDICARE (M) PART B Jun 20, 2014 PART B [id number] EAMON OLIVIA ERT PATIENT MEDICARE (WNR) MEDICARE (M) PART A Jun 20, 2014 PART A [id number] EAMON OLIVIA ERT PATIENT MEDICARE (WNR) MEDICARE (M) PART B Jun 20, 2014 PART B [id number] EAMON OLIVIA ERT PATIENT OPTUM RX PRESCRIPT ION RX Jun 20, 2023 THPRX [id number] EAMON OLIVIA ERT PATIENT OPTUM RX PRESCRIPT ION RX Jun 20, 2022 THPRX [id number] EAMON OLIVIA ERT PATIENT OPTUM RX PRESCRIPT ION RX Jun 20, 2022 THPRX [id number] [phone] DAVON OLIVIA JR PATIENT [facility] Jun 20, 2017 [id number] [phone] EAMON OLIVIA ERT PATIENT [facility] PEÑA E Jun 20, 2017 [id number] [phone] DAVON OLIVIA JR PATIENT [facility] Jun 20, 2017 [id number] [phone] DAVON OLIVIA JR PATIENT [facility] USP Jun 20, 2017 USP [id number] [phone] EAMON OLIVIA ERT PATIENT [facility] Jun 20, 2023 [id number] EAMON OLIVIA ERT PATIENT Selected Encounter This section includes the information on record at [place] for the Encounter. Date/Time Encounter Type Encounter Description Reason Provider Source Dec 27, 2023 10:21 AM SELF CARE MNGMENT TRAINING [facility] Nursing (RN / LP) ICD-10-CM G20.C Parkinsonism, unspecified RISING,JENNIFER L IHE Encounter Template Text not used by [place] Assessments - Encounter Diagnoses This section includes the primary and secondary diagnoses documented for the Encounter. Date/Time Primary/Secondary Diagnosis Diagnosis Name Provider Source Dec 27, 2023 04:34 PM PRIMARY Parkinsonism, unspecified RISING,JIE R L [facility] [place] [facility] Dec 27, 2023 04:34 PM SECONDARY Delirium due to known physiological condition RISINGJIE R L [facility] [place] [facility] Dec 27, 2023 04:34 PM SECONDARY Hematuria, unspecified RISING,HEATHE R L [facility] [place] [facility] Dec 27, 2023 04:34 PM SECONDARY Unspecified urinary incontinence RISING,HEATHE R L [facility] [place] [facility] Plan of Treatment: Future Appointments (+ 6 [...] Date/Time Appointment Type Appointme nt Facility Name Jan 04, 2024 01:00 PM AMBULATORY - NONE [facility] [place] [facility] Feb 02, 2024 03:00 PM AMBULATORY - REHAB MEDICIN E [facility] [place] [facility] Feb 14, 2024 12:30 PM AMBULATORY - REHAB MEDICIN E [facility] [place] [facility] Mar 15, 2024 10:00 AM AMBULATORY - REHAB MEDICIN E [facility] [place] [facility] Mar 22, 2024 08:00 AM AMBULATORY - MEDICINE [facility] [place] [facility] Mar 22, 2024 01:00 PM AMBULATORY - NONE [facility] [place] [facility] Mar 27, 2024 02:30 PM AMBULATORY - MEDICINE [facility] [place] [facility] Mar 29, 2024 11:00 AM AMBULATORY - REHAB MEDICIN E [facility] [place] [facility] Apr 12, 2024 11:00 AM AMBULATORY - REHAB MEDICIN E [facility] [place] [facility] Apr 26, 2024 09:00 AM AMBULATORY - MEDICINE [facility] [place] [facility] Apr 26, 2024 11:00 AM AMBULATORY - REHAB MEDICIN E [facility] [place] [facility] Vital Signs: All taken on the encounter date This section contains inpatient and outpatient Vital Signs collected on the date of the Encounter. Date/Time Temperature Pulse Blood Pressure Respiratory Rate SP02 Pain Height Weight Body Mass Index Source Dec 27, 2023 10:22 AM 98.4 68 112/78 16 98 0 [facility] Social History: Smoking Status (Most current) [...] 19, 2023 12:24 PM VA-TOBACCO NEVER USED [facility] Tobacco Use History This section includes a history of the smoking, or tobacco-related health factors, that were collected on or before the date of the Encounter. The data comes from the [place] facility where the Encounter took place. Date/Time Smoking Status/Tobacco Use Comment F acility Jan 15, 2021 11:00 AM [place]-TO[place]ACCO NEVER USED [facility] Advance Directives: All historical and current [...] Jan 20, 2021 ADVANCE DIRECTIVE [facility] Encounter Notes: All associated encounter notes This section contains the clinical notes associated to the Encounter. Date/Time Encounter Note(s) Provider Source Dec 27, 2023 04:34 PM ADDENDUM: LOCAL TITLE: Addendum STANDARD TITLE: ADDENDUM DATE OF NOTE: DEC 27, 2023@16:34:58 ENTRY DATE: DEC 27, 2023@16:34:59 AUTHOR: JENNIFER SEGURA COSIGNER: URGENCY: STATUS: COMPLETED Please renew if in agreeement. Thank you. OUTPT APIXABAN 5MG TAB (Status = Active/Suspended) TAKE ONE TABLET BY MOUTH EVERY 12 HOURS FOR ATRIAL FIBRILLATION Rx# [id number] Last Released: 10/26/23 Qty/Days Supply: 180/90 Rx Expiration Date: 08/16/24 Refills Remainin Indication: ATRIAL FIBRILLATION OUTPT ARTIFICIAL SALIVA ORAL SPRAY (Status = Active) SPRAY 2 SPRAYS BY MOUTH EVERY 2 HOURS NEEDED FOR DRY MOUTH (USE DIRECTED) Rx# [id number] Last Released: 11/17/23 Qty/Days Supply: 720/90 Rx Expiration Date: 09/02/24 Refills Remainin Indication: FOR DRY MOUTH OUTPT CHOLECALCIF 25MCG (D3-1,000UNIT) TAB (Status = Active/Suspended) TAKE ONE TABLET BY MOUTH ONCE DAILY FOR VITAMIN SUPPLEMENTATION Rx# [id number] Last Released: 10/26/23 Qty/Days Supply: 90/ Rx Expiration Date: 05/20/24 Refills Remainin Indication: FOR VITAMIN D DEFICIENCY OUTPT FAMOTIDINE 20MG TAB (Status = Active/Suspended) TAKE ONE TABLET BY MOUTH ONCE DAILY FOR STOMACH ACID Rx# [id number] Last Released: 10/26/23 Qty/Days Supply: 90 Rx Expiration Date: 05/20/24 Refills Remainin Indication: FOR HEARTBURN OUTPT HYDROCHLOROTHIAZIDE 25MG TAB (Status = Active/Suspended) TAKE ONE TABLET BY MOUTH ONCE DAILY FOR HIGH BLOOD PRESSURE Rx# [id number] Last Released: 10/26/23 Qty/Days Supply: 90 Rx Expiration Date: 05/20/24 Refills Remainin Indication: FOR HIGH BLOOD PRESSURE OUTPT HYDROXYZINE HCL 10MG TAB (Status = Active/Suspended) TAKE ONE TABLET BY MOUTH AT BEDTIME NEEDED FOR ANXIETY Rx# [id number] Last Released: 10/26/23 Qty/Days Supply: 90 Rx Expiration Date: 05/20/24 Refills Remainin Indication: FOR ANXIETY OUTPT MULTIVITAMIN/MINERALS CAP/TAB (Status = Active/Suspended) TAKE 1 TABLET BY MOUTH ONCE DAILY FOR VITAMIN SUPPLEMENTATION FOR VITAMIN SUPPLEMENTATION Rx# [id number] Last Released: 10/26/23 Qty/Days Supply: 100/90 Rx Expiration Date: 05/20/24 Refills Remainin Indication: FOR VITAMIN SUPPLEMENTATION /sharron/ JENNIFER SEGURA RN BSN [facility] ASSISTIVE TECHNOLOGY SPECIALIST Signed: 12/27/2023 16:38 Receipt Acknowledged By: 12/28/2023 07:16 /sharron/ LUIS FERNANDO GASTON NURSE PRACTITIONER --- Original Document --- 12/27/23 [facility] RN PROGRESS NOTE: Nursing Progress Note [...] A DAY 13) INCONT LINER,MENS X-HVY SURECARE #83373G USE 1 LINER HOLD TOPICALLY AT BEDTIME 14) INCONTINENCE WRAP,MALE USE 1 INCONTINENCE WRAP ACTIVE TOPICALLY AT BEDTIME 15) MELATONIN 5MG CAP/TAB TAKE THREE CAPSULE/TABLETS BY HOLD MOUTH AT BEDTIME FOR INSOMNIA 16) MEMANTINE [...] DAILY FOR PARKINSON'S DISEASE 23) UNDERPAD,BED ULTRASORB [id number] #3136 USE 2 UNDERPADS ACTIVE TOPICALLY AT BEDTIME [...] in patient's home at time of visit. [place] identified by: Full Name, Facial Recognition Length of visit in home: 45 minutes Problem addressed for this visit: PD, MED REVIEW Specimen(s) collected during this visit: None NURSING SUMMARY: RNCM made home visit for chronic disease management, neuro assessment, c/v and c/p assessment. sitting at the kitchen table upon arrival, spouse present. well groomed. Dressed appropriately. Poor eye contact. Soft spoken. Spouse reports she had a rough couple of weeks with . She became teary eyed and states has been uncooperative and it has been a challenge to care for him. Spouse called neurologist office to discuss behavior change. No return phone as of today. Spouse reports she has reach out to support group which she finds helpful. 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 pleasant and cooperative during visit. unsettled at night, taking off depends, trying to get out of bed. Spouse reports she purchased baby bumpers and adult onesies online and they are working out great. Baby bumper keeps from getting out of bed and the adult onesies keeps from taking of his diaper. manages and administers meds in pudding or applesauce. Little trouble swallowing. Needs extra sip of a drink to get pills down. Reviewed medication regimen. Spouse administering meds as directed. Updated med list left in the home. Trenton followed up with Dr. Vickey Gooden Cardiac Check And Transfer [facility] associates. Trenton to continue on apixaban. Next appt 06/25/[address]-scan 01/08 at [facility], [address] [place] [address], [phone]. CT scan abdomen/pelvis without contrast. 01/[address] Lloyd Soares Urologist for cystoscopy. [facility]. Blood Pressure: 112/78 (12/27/2023 10:22) Pulse: 68 (12/27/2023 10:22) Respiration: 16 (12/27/2023 10:22) Temperature: 98.4 F [36.9 C] (12/27/2023 10:22) Pain Score: 0 (12/27/2023 10:22) EXAMINATION: Lungs: Ls clear throughout. Resp easy and reg. Edema: PPP, No edema HR: Strong and reg. Denies chest pain, palpations, dizziness. Bowel/Bladder: Incontinent of urine. Intermittent hematuria. Occasional incontinence of stool. Denies diarrhea/constipation. Skin: Clean, dry and intact. No skin breakdown Home Safety FALLS YES INFECTIONS NO ER/HOSPITALIZATIONS NO Teaching/goals: Refer to nursing summary. Trenton goal is to live at home safely with his as long as possible with assist from his and [facility], [facility] Patient verbalizes understanding to above and will call with any concerns or changes in condition. For emergent care call 911. Revisit: 01/22 for chronic disease management, neuro assessment, c/v an dc/p assessment, med review, /es/ JENNIFER SEGURA PRACTICE MANAGEMENT CONSULTANT HB ASSISTIVE TECHNOLOGY SPECIALIST Signed: 12/27/2023 16:34 JENNIFER SEGURA [place] [facility] [place] [facility] Dec 27, 2023 10:24 AM [facility] NURSING NOTE: LOCAL TITLE: [facility] RN PROGRESS NOTE STANDARD TITLE: [facility] NURSING NOTE DATE OF NOTE: DEC 27, 2023@10:24 ENTRY DATE: DEC 27, 2023@10:24:58 AUTHOR: JENNIFER SEGURA EXP COSIGNER: URGENCY: STATUS: COMPLETED HB RN PROGRESS NOTE Has ADDENDA Nursing Progress [...] A DAY 13) INCONT LINER,MENS X-HVY SURECARE #85596M USE 1 LINER HOLD TOPICALLY AT BEDTIME 14) INCONTINENCE WRAP,MALE USE 1 INCONTINENCE WRAP ACTIVE TOPICALLY AT BEDTIME 15) MELATONIN 5MG CAP/TAB TAKE THREE CAPSULE/TABLETS BY HOLD MOUTH AT BEDTIME FOR INSOMNIA 16) MEMANTINE [...] DAILY FOR PARKINSON'S DISEASE 23) UNDERPAD,BED ULTRASORB [id number] M#3136 USE 2 UNDERPADS ACTIVE TOPICALLY AT [...] in patient's home at time of visit. [place]on identified by: Full Name, Facial Recognition Length of visit in home: 45 minutes Problem addressed for this visit: PD, MED REVIEW Specimen(s) collected during this visit: None NURSING SUMMARY: RNCM made home visit for chronic disease management, neuro assessment, c/v and c/p assessment. sitting at the kitchen table upon arrival, spouse present. well groomed. Dressed appropriately. Poor eye contact. Soft spoken. Spouse reports she had a rough couple of weeks with . She became teary eyed and states has been uncooperative and it has been a challenge to care for him. Spouse called neurologist office to discuss behavior change. No return phone as of today. Spouse reports she has reach out to support group which she finds helpful. 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 Trenton pleasant and cooperative during visit. unsettled at night, taking off depends, trying to get out of bed. Spouse reports she purchased baby bumpers and adult onesies online and they are working out great. Baby bumper keeps Trenton from getting out of bed and the adult onesies keeps Trenton from taking of his diaper. manages and administers meds in pudding or applesauce. Little trouble swallowing. Needs extra sip of a drink to get pills down. Reviewed medication regimen. Spouse administering meds as directed. Updated med list left in the home. Trenton followed up with Dr. Vickey Gooden Cardiac Check And Transfer [facility]ovascular associates. Trenton to continue on apixaban. Next appt 06/25/[address]-scan 01/08 at [facility], [address] [place] [address], [phone]. CT scan abdomen/pelvis without contrast. 01/[address] Lloyd Soares Urologist for cystoscopy. [facility]. Blood Pressure: 112/78 (12/27/2023 10:22) Pulse: 68 (12/27/2023 10:22) Respiration: 16 (12/27/2023 10:22) Temperature: 98.4 F [36.9 C] (12/27/2023 10:22) Pain Score: 0 (12/27/2023 10:22) EXAMINATION: Lungs: Ls clear throughout. Resp easy and reg. Edema: PPP, No edema HR: Strong and reg. Denies chest pain, palpations, dizziness. Bowel/Bladder: Incontinent of urine. Intermittent hematuria. Occasional incontinence of stool. Denies diarrhea/constipation. Skin: Clean, dry and intact. No skin breakdown Home Safety FALLS YES INFECTIONS NO ER/HOSPITALIZATIONS NO Teaching/goals: Refer to nursing summary. [place]on goal is to live at home safely with his as long as possible with assist from his and [facility], HIGHWAY SAFETY ENGINE[employer] Patient verbalizes understanding to above and will call with any concerns or changes in condition. For emergent care call 911. Revisit: 01/22 for chronic disease management, neuro assessment, c/v an dc/p assessment, med review, /sharron/ JENNIFER SEGURA PRACTICE MANAGEMENT CONSULTANT PC ASSISTIVE TECHNOLOGY SPECIALIST Signed: 12/27/2023 16:34 12/27/2023 ADDENDUM STATUS: COMPLETED Please renew if in agreeement. Thank you. OUTPT APIXABAN 5MG TAB (Status = Active/Suspended) TAKE ONE TABLET BY MOUTH EVERY 12 HOURS FOR ATRIAL FIBRILLATION Rx# [id number] Last Released: 10/26/23 Qty/Days Supply: 180/90 Rx Expiration Date: 08/16/24 Refills Remainin Indication: ATRIAL FIBRILLATION OUTPT ARTIFICIAL SALIVA ORAL SPRAY (Status = Active) SPRAY 2 SPRAYS BY MOUTH EVERY 2 HOURS NEEDED FOR DRY MOUTH (USE DIRECTED) Rx# [id number] Last Released: 11/17/23 Qty/Days Supply: 720/90 Rx Expiration Date: 09/02/24 Refills Remainin Indication: FOR DRY MOUTH OUTPT CHOLECALCIF 25MCG (D3-1,000UNIT) TAB (Status = Active/Suspended) TAKE ONE TABLET BY MOUTH ONCE DAILY FOR VITAMIN SUPPLEMENTATION Rx# [id number] Last Released: 10/26/23 Qty/Days Supply: 90/90 Rx Expiration Date: 05/20/24 Refills Remainin Indication: FOR VITAMIN D DEFICIENCY OUTPT FAMOTIDINE 20MG TAB (Status = Active/Suspended) TAKE ONE TABLET BY MOUTH ONCE DAILY FOR STOMACH ACID Rx# [id number] Last Released: 10/26/23 Qty/Days Supply: 90/90 Rx Expiration Date: 05/20/24 Refills Remainin Indication: FOR HEARTBURN OUTPT HYDROCHLOROTHIAZIDE 25MG TAB (Status = Active/Suspended) TAKE ONE TABLET BY MOUTH ONCE DAILY FOR HIGH BLOOD PRESSURE Rx# [id number] Last Released: 10/26/23 Qty/Days Supply: 90/90 Rx Expiration Date: 05/20/24 Refills Remainin Indication: FOR HIGH BLOOD PRESSURE OUTPT HYDROXYZINE HCL 10MG TAB (Status = Active/Suspended) TAKE ONE TABLET BY MOUTH AT BEDTIME NEEDED FOR ANXIETY Rx# [id number] Last Released: 10/26/23 Qty/Days Supply: 90/90 Rx Expiration Date: 05/20/24 Refills Remainin Indication: FOR ANXIETY OUTPT MULTIVITAMIN/MINERALS CAP/TAB (Status = Active/Suspended) TAKE 1 TABLET BY MOUTH ONCE DAILY FOR VITAMIN SUPPLEMENTATION FOR VITAMIN SUPPLEMENTATION Rx# [id number] Last Released: 10/26/23 Qty/Days Supply: 100/90 Rx Expiration Date: 05/20/24 Refills Remainin Indication: FOR VITAMIN SUPPLEMENTATION /es/ JENNIFER SEGURA, PRACTICE MANAGEMENT CONSULTANT [facility] ASSISTIVE TECHNOLOGY SPECIALIST Signed: 12/27/2023 16:38 Receipt Acknowledged By: * AWAITING SIGNATURE * LUIS FERNANDO FONTANEZ HEATHER L [facility]
--- OUTSIDE RECORDS SUMMARY | 2024-05-30 08:45 | XMS_ITS | Encounter Summary ---
Author Name [facility] [place] Organization [facility] Address [address] [place] [address] Care Team Providers Care Sales Vendor Name Role Phone LUIS FERNANDO FONTANEZ Primary [...] SIMS ION [id number] 1 Jun 20, 2017 [id number] EAMON OLIVIA ERT PATIENT MEDICARE (WNR) MEDICARE (M) PART A Jun 20, 2014 PART A [id number] EAMON OLIVIA ERT PATIENT MEDICARE (WNR) MEDICARE (M) PART B Jun 20, 2014 PART B [id number] EAMON OLIVIA ERT PATIENT MEDICARE (WNR) MEDICARE (M) PART A Jun 20, 2014 PART A [id number] EAMON OLIVIA ERT PATIENT MEDICARE (WNR) MEDICARE (M) PART B Jun 20, 2014 PART B [id number] [phone] EAMON OLIVIA ERT PATIENT OPTUM RX PRESCRIPT ION RX Jun 20, 2023 THPRX [id number] [phone] EAMON OLIVIA ERT PATIENT OPTUM RX PRESCRIPT ION RX Jun 20, 2022 THPRX [id number] [phone] EAMON OLIVIA ERT PATIENT OPTUM RX PRESCRIPT ION RX Jun 20, 2022 THPRX [id number] DAVON OLIVIA JR PATIENT [facility] Jun 20, 2017 [id number] [phone] EAMON OLIVIA ERT PATIENT [facility] T[facility] MARIANA E Jun 20, 2017 [id number] [phone] DAVON OLIVIA JR PATIENT [facility] PE[facility] E Jun 20, 2017 [id number] [phone] DAVON OLIVIA JR PATIENT [facility] USP Jun 20, 2017 USP [id number] [phone] EAMON OLIVIA ERT PATIENT [facility] Jun 20, 2023 [id number] EAMON OLIVIA ERT PATIENT Selected Encounter This section includes the information on record at [place] for the Encounter. Date/Time Encounter Type Encounter Description Reason Provider Source Jan 16, 2024 03:07 PM SLEEP STUDY UNATT&RESP EFFT SLEEP STUDY ICD-10-CM G47.33 Obstructive sleep apnea (adult) (pediatric) CELESTINA,TE IHE Encounter Template Text not used by [place] Assessments - Encounter Diagnoses This section includes the primary and secondary diagnoses documented for the Encounter. Date/Time Primary/Secondary Diagnosis Diagnosis Name Provider Source Jan 16, 2024 03:07 PM PRIMARY Obstructive sleep apnea (adult) (pediatric) CELESTINA,TE [facility] [place] Plan of Treatment: Future Appointments (+ 6 months) and Future Tests (+/- 45 days) The Plan of Treatment section includes future care activities for the patient from all [place] [facility] This section includes future appointments and future orders which are active, pending or scheduled. Future Appointments This section includes appointments that were scheduled to occur 6 months from the date of the Encounter, up to a maximum of 20 appointments. The data comes from all [place] treatment facilities. Appointment Date/Time Appointment Type Appointme nt Facility Name Feb 02, 2024 03:00 PM AMBULATORY - REHAB MEDICIN E [facility] [place] [facility] Feb 14, 2024 12:30 PM AMBULATORY - REHAB MEDICIN E [facility] [place] [facility] Mar 15, 2024 10:00 AM AMBULATORY - REHAB MEDICIN E [facility] [place] [facility] Mar 22, 2024 08:00 AM AMBULATORY - MEDICINE [facility] [place] [facility] Mar 22, 2024 01:00 PM AMBULATORY - NONE [facility] [place] [facility] Mar 27, 2024 02:30 PM AMBULATORY - MEDICINE [place] [facility] [place] [facility] Mar 29, 2024 11:00 AM AMBULATORY - REHAB MEDICIN E [facility] [place] [facility] Apr 12, 2024 11:00 AM AMBULATORY - REHAB MEDICIN E [facility] [place] [facility] Apr 26, 2024 09:00 AM AMBULATORY - MEDICINE [facility] [place] [facility] Apr 26, 2024 11:00 AM AMBULATORY - REHAB MEDICIN E [facility] [place] [facility] Active, Pending, and Scheduled Orders This section includes a listing of several types of active, pending, and scheduled orders, including clinic medications orders, diagnostic test orders, procedure orders and consult orders; where the start date of the order is 45 days before the date of the Encounter or 45 days after the date of theEncounter. The data comes from all [place] treatment facilities. Test Date/Time Test Type Test Details Facility Name Feb 29, 2024 07:27 AM Consult Order [facility]-GEC NON-SKILLED HOME HEALTH AIDE Cons [facility] [place] [facility] Feb 29, 2024 01:44 PM Consult Order [facility]ITY C[facility]-SPEECH THERAPY Cons [facility] [place] [facility] Social History: Smoking Status (Most current) and Tobacco Use (All prior to encounter date) This section includes the most current, and the historical, smoking and tobacco- related health factors from the [place] facility where the Encounter took place. Current Smoking Status This section includes the most current smoking, or tobacco-related health factor, from the [place] facility where the Encounter took place. Date/Time Current Smoking Status Comment Facil ity Jan 19, 2023 12:24 PM VA-TOBACCO NEVER USED [facility] Tobacco Use History This section includes a history of the smoking, or tobacco-related health factors, that were collected on or before the date of the Encounter. The data comes from the [place] facility where the Encounter took place. Date/Time Smoking Status/Tobacco Use Comment F acility Jan 15, 2021 11:00 AM VA-TOBACCO NEVER USED [facility] Advance Directives: All historical and current Section Date Range: From patient's date of to the date document was created. This section includes ALL of a patient's completed or amended [place] Advance and Rescinded Directives. The entries below indicate that a directive exists for the patient, but an actual copy is not included with this document. The data comes from all [place] facilities. Date Advance Directives Provider Source Jan 20, 2021 ADVANCE DIRECTIVE [facility] Encounter Notes: All associated encounter notes This section contains the clinical notes associated to the Encounter. Date/Time Encounter Note(s) Provider Source Jan 16, 2024 03:07 PM SLEEP MEDICINE NOT E: LOCAL TITLE: SLEEP TEST T DATA UPLOAD STANDARD TITLE: SLEEP MEDICINE NOTE DATE OF NOTE: JAN 16, 2024@15:07:53 ENTRY DATE: JAN 16, 2024@15:07:54 AUTHOR: TE OSCAR EXP COSIGNER: URGENCY: STATUS: COMPLETED Home sleep testing was completed by the patient and the device was returned. The data has been uploaded and reviewed for quality.: Data quality is: Acceptable Study to be scored and reviewed for interpretation Preliminary diagnosis Minutes professional time spent providing care.: 30 min Diagnoses: G47.33 - Obstructive Sleep Apnea Procedures 1 Political Geographer Stdy Unatnd w/ Resp Effort Modifiers technical component /es/ TE OSCARRPSMAREK PAPER CARRIER Signed: 01/16/2024 15:07 TE OSCAR [facility]
--- OUTSIDE RECORDS SUMMARY | 2024-05-30 08:45 | XMS_ITS | Encounter Summary ---
Author Name [facility] Organization [facility] [place] Address [address] [place] [address] Care Team Providers Care Pit Hand Name Role Phone LUIS FERNANDO FONTANEZ Primary [...] SIMS ION [id number] 1 Jun 20, 2017 [id number] [phone] EAMON OLIVIA ERT PATIENT MEDICARE (WNR) MEDICARE (M) PART A Jun 20, 2014 PART A [id number] EAMON OLIVIA ERT PATIENT MEDICARE (WNR) MEDICARE (M) PART B Jun 20, 2014 PART B [id number] EAMON OLIVIA ERT PATIENT MEDICARE (WNR) MEDICARE (M) PART A Jun 20, 2014 PART A [id number] EAMON OLIVIA ERT PATIENT MEDICARE (WNR) MEDICARE (M) PART B Jun 20, 2014 PART B [id number] EAMON OLIVIA ERT PATIENT [facility] RX PRESCRIPT ION RX Jun 20, 2023 THPRX [id number] [phone] EAMON OLIVIA ERT PATIENT [facility] RX PRESCRIPT ION RX Jun 20, 2022 THPRX [id number] EAMON OLIVIA ERT PATIENT [facility] RX PRESCRIPT ION RX Jun 20, 2022 THPRX [id number] DAVON OLIVIA JR PATIENT [facility] MAR Jun 20, 2017 [id number] EAMON OLIVIA ERT PATIENT [facility] E Jun 20, 2017 [id number] DAVON OLIVIA JR PATIENT [facility] Jun 20, 2017 [id number] DAVON OLIVIA JR PATIENT [facility] Jun 20, 2017 [facility] [id number] EAMON OLIVIA ERT PATIENT [facility] Jun 20, 2023 [id number] [phone] EAMON OLIVIA ERT PATIENT Selected Encounter This section includes the information on record at [place] for the Encounter. Date/Time Encounter Type Encounter Description Reason Provider Source Dec 16, 2023 11:00 AM HC PRO PHONE CALL 11-20 MIN TELEPHONE [facility] ICD-10-CM Z71.89 Other specified counseling KAMILAH MALCOLM E Encounter Template Text not used by [place] Assessments - Encounter Diagnoses This section includes the primary and secondary diagnoses documented for the Encounter. Date/Time Primary/Secondary Diagnosis Diagnosis Name Provider Source Dec 16, 2023 11:00 AM PRIMARY Other specified counseling KAMILAH MALCOLM [facility] [place] [facility] Plan of Treatment: Future Appointments [...] - MEDICINE [facility] [place] [facility] Jan 04, 2024 01:00 PM AMBULATORY - NONE [facility] [place] [facility] Feb 02, 2024 03:00 PM AMBULATORY - REHAB MEDICIN E [facility] [place] [facility] Feb 14, 2024 12:30 PM AMBULATORY - REHAB MEDICIN E [facility] [place] [facility] Mar 15, 2024 10:00 AM AMBULATORY - REHAB MEDICIN E [facility] [place] [facility] Mar 22, 2024 08:00 AM AMBULATORY - MEDICINE [facility] [place] [facility] Mar 22, 2024 01:00 PM AMBULATORY - NONE [facility] [place] [facility] Mar 27, 2024 02:30 PM AMBULATORY - MEDICINE [facility] [place] [facility] Mar 29, 2024 11:00 AM AMBULATORY - REHAB MEDICIN E [facility] [place] [facility] Apr 12, 2024 11:00 AM AMBULATORY - REHAB MEDICIN E [facility] [place] [facility] Apr 26, 2024 09:00 AM AMBULATORY - MEDICINE [facility] [place] [facility] Apr 26, 2024 11:00 AM AMBULATORY - REHAB MEDICIN E [facility] [place] [facility] Social History: Smoking Status (Most [...] 19, 2023 12:24 PM VA-TOBACCO NEVER USED [facility] Tobacco Use History This section includes a history of the smoking, or tobacco-related health factors, that were collected on or before the date of the Encounter. The data comes from the [place] facility where the Encounter took place. Date/Time Smoking Status/Tobacco Use Comment F acility Jan 15, 2021 11:00 AM VA-TOBACCO NEVER USED [facility] Advance Directives: All historical and current Section [...] 20, 2021 ADVANCE DIRECTIVE AALIYAHBENTON ELZA Chacko [facility] Encounter Notes: All associated encounter notes This section contains the clinical notes associated to the Encounter. Date/Time Encounter Note(s) Provider Source Dec 16, 2023 11:00 AM [facility] NOTE: LOCAL TITLE: [facility] TELEPHONE NOTE STANDARD TITLE: HB NOTE DATE OF NOTE: DEC 16, 2023@11:00 ENTRY DATE: DEC 16, 2023@13:50:39 AUTHOR: KAMILAH MALCOLM EXP COSIGNER: URGENCY: STATUS: COMPLETED [facility] TELEPHONE NOTE Has ADDENDA Duration of call: 15 Minutes [facility] SW spoke with the 's caregiver to offer caregiver support in regards to recent changes. The was identified by name and . The has dx that include Parkinson's Disease, Insomnia, incontinence, and Memory Loss. [facility] SW inquired about recent changes. The spouse stated that over the past two weeks she has been overwhelmed with the care of the due to him refusing care at times, insomnia. She stated that this morning she hurt herself trying to assist the . She stated that the was refusing to allow her to change is depends due to incontinence, and was refusing to get up. [facility] SW provided caregiver support and discussed self care strategies she can engage in in times of distress. [facility] SW inquired if Caregiver has recently connected with Caregiver Support SW for support and caregiver stated that she has not. [facility] SW provided education in regards to Caregiver support program and SW. Caregiver stated that she does not deal with these behaviors with the often,but the last two week have been challenging. [facility] SW inquired if the spouse has contacted the 's community care Neurologist and spouse stated that she has not. [facility] SW encouraged her to connect with the Neurologist to discuss the 's behaviors and medication. Spouse agreeable and verbalized understanding. [facility] SW provided education in regards to lowering spouse risk of injury by utilizing [employer] TICKET CHECKER for lift supports and assistance. Spouse stated that [facility] PT is looking to provide a Michael lift. She stated that this would make transfers and care easier for her. Spouse will need education on how to Use Michael life once delivered. Alerting [facility] PT-FYI. Caregiver expressed recent loss of a family member. This loss was unexpected and she is dealing with this as well. Caregiver discussed utilizing [employer] TICKET CHECKER times, for her to go out into the community or backyard and practice self care. Caregiver not currently doing this. Spouse declined the need to explore LTC/alternative living arranges for the . Spouse stated once again that the past 2 weeks have been challenging, but overall she is able to meet the 's needs and he is cooperative as well. [facility] SW offered in person supportive visit an caregiver declined the need at this time. Plan that caregiver is agreeable to: -Contact 's Neurologist to discuss behaviors and treatment -Will finish completing [facility] [place] application for LTC planning -Will contact Caregiver patient support associate for ongoing support. /sharron/ OLEG Sandhu DARSHAN Appliance Counselor Signed: 12/16/2023 14:03 Receipt Acknowledged By: 12/19/2023 07:51 /es/ RAMIN MENDIETA, PT, MS, ATP [facility] Physical Therapist 12/19/2023 07:20 /sharron/ JENNIFER SEGURA SCOWMAN [facility] CHURCH OFFICIAL 12/16/2023 14:50 /sharron/ ODILON GREENE 12/16/2023 ADDENDUM STATUS: COMPLETED This [facility] SW communicated with 's CG/spouse Tory. Please see note in CG chart for more information. /sharron/ ODILON GREENE Signed: 12/16/2023 14:50 KAMILAH MALCOLM [facility]
--- OUTSIDE RECORDS SUMMARY | 2024-05-30 08:45 | XMS_ITS ---
Author Name [facility] [facility] [place] Address [address] [place] [id number] Care Team Providers Care Skein Drier Name Role Phone LUIS FERNANDO FONTANEZ Primary [...] ALT ION [id number] 1 Jun 20, 2017 [id number] [phone] EAMON OLIVIA ERT PATIENT MEDICARE (WNR) MEDICARE (M) PART A Jun 20, 2014 PART A [id number] EAMON OLIVIA ERT PATIENT MEDICARE (WNR) MEDICARE (M) PART B Jun 20, 2014 PART B [id number] EAMON OLIVIA ERT PATIENT MEDICARE (WNR) MEDICARE (M) PART A Jun 20, 2014 PART A [id number] EAMON OLIVIA ERT PATIENT MEDICARE (WNR) MEDICARE (M) PART B Jun 20, 2014 PART B [id number] EAMON OLIVIA ERT PATIENT OPTUM RX PRESCRIPT ION RX Jun 20, 2023 THPRX [id number] [phone] EAMON OLIVIA ERT PATIENT OPTUM RX PRESCRIPT ION RX Jun 20, 2022 THPRX [id number] [phone] EAMON OLIVIA ERT PATIENT OPTUM RX PRESCRIPT ION RX Jun 20, 2022 THPRX [id number] DAVON OLIVIA JR PATIENT [facility] Jun 20, 2017 [id number] [phone] EAMON OLIVIA ERT PATIENT [facility] PLAN [facility] TON PEÑA E Jun 20, 2017 [id number] DAVON OLIVIA JR PATIENT [facility] PLAN [facility] TON PEÑA E Jun 20, 2017 [id number] DAVON OLIVIA JR PATIENT [facility] Jun 20, 2017 USP [id number] EAMON OLIVIA ERT PATIENT [facility] Jun 20, 2023 [id number] EAMON OLIVIA ERT PATIENT Selected Encounter This section includes the information on record at [place] for the Encounter. Date/Time Encounter Type Encounter Description Reason Pro vider Source Jan 12, 2024 09:20 AM Outpatient Encounter [facility] PHYSIC EXTND(MORTGAGE LENDER,REFRIGERATING TECHNICIAN,PA) IHE Encounter Template Text not used by [facility] Plan of Treatment: Future Appointments (+ 6 months) and Future Tests (+/- 45 days) The Plan of Treatment section includes future care activities for the patient from all [place] treatmentfacilities. This section includes future appointments and [...] [facility]HAB [facility]IC[facility] Feb 14, 2024 12:30 PM AMBULATORY - RE[facility] MEDICIN [facility] Mar 15, 2024 10:00 AM AMBULATORY - RE[facility] MEDIC[facility] Mar 22, 2024 08:00 AM AMBULATORY - MEDICINE [facility] Mar 22, 2024 01:00 PM AMBULATORY - NONE [facility] Mar 27, 2024 02:30 PM AMBULATORY - MEDICINE [facility] Mar 29, 2024 11:00 AM AMBULATORY - REHAB MEDICIN [facility] Apr 12, 2024 11:00 AM AMBULATORY - REHAB MEDICIN [facility] Apr 26, 2024 09:00 AM AMBULATORY - MEDICINE [facility] Apr 26, 2024 11:00 AM AMBULATORY - REHAB MEDICIN [facility] Social History: Smoking Status (Most [...] 19, 2023 12:24 PM VA-TOBACCO NEVER USED [facility] Tobacco Use History This section includes a history of the smoking, or tobacco-related health factors, that were collected on or before the date of the Encounter. The data comes from the [place] facility where the Encounter took place. Date/Time Smoking Status/Tobacco Use Comment F acility Jan 15, 2021 11:00 AM VA-TOBACCO NEVER USED [facility] Advance Directives: All historical and current Section [...] Jan 20, 2021 ADVANCE DIRECTIVE BENTON ARAUZ CNTLIZBTEH [facility] Encounter Notes: All associated encounter notes This section contains the clinical notes associated to the Encounter. Date/Time Encounter Note(s) Provider Source Jan 16, 2024 05:57 PM ADDENDUM: LOCAL TITLE: Addendum STANDARD TITLE: ADDENDUM DATE OF NOTE: JAN 16, 2024@17:57:23 ENTRY DATE: JAN 16, 2024@17:57:24 AUTHOR: CANDICE JASMINE COSIGNER: URGENCY: STATUS: COMPLETED CT scan received from [facility], multiple stones, non obstructing and no hydronephrosis. Updated problem list. It does appear he has Urology follow up. /sharron/ CANDICE JASMINE [facility] NURSE PRACTITIONER Signed: 01/16/2024 17:58 Receipt Acknowledged By: 01/16/2024 19:47 /sharron/ JENNIFER SEGURA RN BSN HB FIELD CROP FARMER --- Original Document --- 01/12/24 [facility] INTERDISCIPLINARY NOTE: INTERDISCIPLINARY NOTE Allergies: LIPITOR, AMOXICILLIN, ERYTHROMYCIN, FLOMAX, SEROQUEL, LEVAQUIN, CONTRAST MEDIA MIRTAZAPINE Risk Assessment Level 1 Low risk DNR: No Advanced Directive Completed: Yes Family/Community Support: Zora lives in a single family home with his Tory who is his primary caregiver/HCP/DPOA. Spouse has limited support. She has a brother Stephon who lives in [place] who will come over and stay with vet while spouse goes on errands. Vet requires assist with all adl's, dependent on all Iadl's. Receives LEAD BURNER APPRENTICE services through [place] 9 hours a week ([facility]). Mental Status: A & O X 3, Forgetfulness PLAN OF CARE 90 day review Dates covered by plan of care from Dec to Mar Primary Care Provider: Luis Fernando Fontanez PROBLEM LIST: Active problems - Computerized Problem List is the source for the followin. Constipation 2. Under care of multiple providers Dr. Shirin HUTCHISON [place] PCP Neurologist : Dr. Dino Doan [facility] Orthopedist: MIRELA Monahan [place] Architect In Training: Dr. Ha Man 3. Exposure to potentially hazardous substance Connect Snomed Code to ICD 10 Code refer to note dated 03/21/23 4. Long-term current use of anticoagulant 5. Gingivitis 6. Parkinsonism 7. Squamous cell carcinoma of skin 8. Basal cell carcinoma of skin multiple sites-head, arm, neck 9. Hypotension Intermittent 10. Benign prostatic hyperplasia 11. Hematuria Intermittent 12. Diverticular disease of colon 13. Internal hemorrhoids 14. REM sleep behavior disorder 15. Peripheral vascular disease of Carotids- L more than Right 16. Migraine 17. Solitary nodule of lung 2mm-via CT 18. Dupuytren's contracture 19. Multiple renal cysts 20. Atrial flutter 21. History of deep vein thrombosis 22. Memory loss 23. Sundowning 24. Urinary incontinence 25. Insomnia 26. Gastroesophageal reflux disease 27. AF- Atrial Fibrillation ([facility] [id number]) followed by [facility] Cardiology 28. Parkinson's disease followed by [facility] Dr. Fabby Sun 29. Kidney Stone ([facility] [id number]) [place] Medications: Active Outpatient Medications (including Supplies): Active [...] ONE TABLET BY MOUTH AT ACTIVE BEDTIME 13) INCONT LINER PREVAIL GUARDS #[id number] USE 1 LINER ACTIVE TOPICALLY TWO TIMES A DAY 14) INCONT LINER,[facility][id number] USE 1 LINER HOLD TOPICALLY AT BEDTIME [...] MOUTH ACTIVE ONCE DAILY 24) UNDERPAD,BED ULTRASORB [id number] M#7356 USE 2 UNDERPADS ACTIVE TOPICALLY AT BEDTIME Active Non-VA Medications Status 1) Non-VA DOCUSATE NA 100MG CAP 100MG BY MOUTH ONCE ACTIVE DAILY NEEDED 2) Non-VA LORAZEPAM 0.5MG TAB 0.5MG BY MOUTH ONCE DAILY ACTIVE NEEDED 26 Total Medications Gender Specific Health Assessment: BPH, Urinary Incontinence Fall Risk: [facility] 10 Fall Risk Assessment Tool Required [...] considered at risk for falling. Created by: [facility] Functional Limitations Use of assistive devices wheelchair. [...] per every 4- weeks and 2 PRN [facility] RN visits for changes in Health Status [...] The One Thing that Matters to the [place] was used to align the current care plan. reports what matters the most to him is to be able to live in his house with his with assistance from [facility] and [facility] as long as he can. MEDICATION Medications were addressed at this visit. Spouse administers medications MENTATION Depression was addressed at this visit. denies feeling depressed. Comment: PHQ-2 Mental Health Screening performed by [facility] RN this visit. Over the past two weeks, how often have you been bothered by the following problems? 1. Little interest or pleasure in doing things? 0 = Not at all 2. Feeling down, depressed, or hopeless? 0 = Not at all Total Score: 0 Interpretation: Negative Comment: CONFERENCE COORDINATOR to Further address at his Initial Assessment [...] with Community Neurologist Dr. Fabby Donahue [address] [facility] and encourage f/u as needed and to follow through recommendations. Monitor effectiveness of medication on stiffness, weakness. Consult LIBRARY TECHNOLOGY INSTRUCTOR for speech therapy when indicated or might be beneficial. [facility] Registered Dietitian for eval and education as [...] increased stimulation, i.e talking when eating. Consult [facility] RD for nutritional needs and assess swallowing. Vet recently attempted barium swallow study but unable to tolerated, not completed. 3. PROBLEM ADDRESSED: BPH, urinary frequency-occasional incontinence. GOAL: minimize urinary complications/infections Interventions: teach important sx to monitor and report to [facility] team related to worsening sx of urinary sx-urgency, frequency, burning/pain, fever, chills, hematuria, flank pain. Follow up with Community Urologist- [facility]- Dr. Lloyd Soares. Encourage med adherence-currently on [...] sounds, peripheral edema, dizziness and report to [facility]. Instruct on medication use, and s/s of bleeding and anticoagulation precautions. 6. PROBLEM ADDRESSED: Fall/injury risk r/t weakness, poor vision-Macular degeneration (2 falls this IDT) GOAL: will remain free of falls for [...] visual weight gain, ssx of fluid overload. [facility] PT to weigh with wheelchair scale foot [...] will recognize changes that require reporting to [facility] staff patient will demonstrate correct use of adaptive equipment patient will be safe in home with environment adjusted to accommodate decrease in cognition and/or increase in disease progression Involvement of additional [facility] team members: N.P. assess and attach specific plan SW assess and attach specific plan RD assess and attach specific plan P.T. assess and attach specific plan Discharge Plan when able to remain in community safely with assistance of services and or family Per [facility] Discharge Policy [place] remained stable this IDT. 2 falls, no hospitalization or infections.. Zora lives in a single family home with his Tory who is his primary caregiver/HCP/DPOA. Spouse has limited support. She has a brother Stephon who lives in [place] who will come over and stay with vet while spouse goes on errands. Vet requires assist with all adl's, dependent on all Iadl's. Receives LEAD BURNER APPRENTICE services through [place] 9 hours a week ([facility]). PMHX: Parkinson's Disease, Squamous cell carcinoma, basal [...] left. Colonoscopy: One is followed by multiple community providers Community Scow Derrick Operator- Dr. Emil Davis Community PCP- Shirin Patrick Community Neurologist- Dr. Fabby Donahue [facility]- Dr. Lloyd Soares [facility]- Dr. Svitlana Hand PD- followed by Dr.Rani Donahue Neurology. Appt 10/19/23. [facility] neurology increased carbidopa/levodopa SA 25/100mg 1 tab TID to 1 tab 4x/day on 10/19/23. Approval for [facility] glycopyrrolate 2mg 2-3x/day as ordered by neurology Spouse having difficulty transferring [place] out of hospital bed, reports slides down to end of the bed. [facility] PT ordered Michael lift, Block to prevent patient from sliding down in bed and positioning pad. [facility] PT ordered Multipodus Boots and spouse not using the she states the threaded bolt that is sticking out of the bottom of them are a safety issue. unsettled at night, taking off depends, trying to get out of bed. Spouse reports she purchased baby bumpers and adult onesies online and they are working out great. Baby bumper keeps from getting out of bed and the adult onesies keeps [place] from taking of his diaper. Obstructive sleep apnea- Patient was offered to receive home sleep testing device by mail and accepted. Atrial fibrillation - EKG done on 10/16 and a 14 day ZioPatch XT was applied to [place]. Long-term current use of anticoagulant. [facility] PCP considering stopping anticoagulation depending on the 14 day loop monitor. ZioPatch ET results revealed no triggered or diary events noted. Atrial fibrillation was not detected during this period of time. Patient had occasional episodes of isolated supraventricular ectopy. Patient did not report any symptoms at the time of the SVT. Results sent to Dr. Vickey Gooden Cardiac Acct Exec [facility] supervisor audit clerks who recommended to continue on apixaban. Next appt 06/25/[address]-scan 01/08 at Radiology and [facility], [address] [place] [address], [phone]. CT scan abdomen/pelvis without contrast. Will have results faxed to [place]. Incontinent of urine. uses quick change urine management wrap with oversized poise pad. 01/[address] Lloyd Soares Urologist for cystoscopy. [facility] will have results faxed to [place]. manages and administers meds. manages and administers meds in pudding or applesauce. Little trouble swallowing. Needs extra sip of a drink to get pills down. Reviewed medication regimen. Spouse administering meds as directed. Updated Spouse having caregiver stress burden. [facility] SW recommended caregiver has to connect with Caregiver Support. [facility] SW provided education in regards to Caregiver support program. Spouse reports they finally found LEAD BURNER APPRENTICE who is reliable and has been coming Avelino-through Tuesday and is working out great which has help considerably. Reviewed at IDT. Team agrees with POC /es/ JENNIFER SEGURA, FORM TAMPER [facility] FIELD CROP FARMER Signed: 01/16/2024 08:07 Receipt Acknowledged By: * AWAITING SIGNATURE * OLGA JONES 01/16/2024 16:44 /es/ SANJUANITA PEDROZA [facility] poll watcher 01/16/2024 14:19 /sharron/ Candice Musa PharmD Clinical Bunker Worker 01/16/2024 16:24 /es/ Jacqui Srivastava [facility] Occupational Therapist for RAMIN MENDIETA 01/16/2024 08:32 /es/ RIGO FENTON, MS, RDN, LDN Staff Dietitian 01/16/2024 14:25 /es/ OLEG Sandhu [facility] Tractor Engine Mechanic 01/16/2024 18:01 /es/ MEGAN Villa MD 01/16/2024 09:35 /es/ CANDICE JASMINE [facility] NURSE PRACTITIONER for LUIS FERNANDO FONTANEZ 01/16/2024 ADDENDUM STATUS: COMPLETED Nutrition-Case discussed at IDT meeting. Patient was last seen by [facility] dietitian on 05/11/23. See Consult Report/Nutrition and Clerical Order Filler for nutrition assessment. Plan: 1. Follow-up visit: annually or sooner as needed if change in condition 2. Monitor progress toward achievement of Nutrition Intervention Goals 3. Assess comprehension and motivation based on dietary changes made 4. Monitor progress toward achievement of Clinical Outcome Goals: Weight, Labs, Swallowing, Bowel movements 5. Follow for clinical issues at IDT meetings and with quarterly chart review. /sharron/ RGIO FENTON, MS, RDN, LDN Staff Dietitian Signed: 01/16/2024 08:33 01/16/2024 ADDENDUM STATUS: COMPLETED Will continue to follow every 6-12 months for routine medical care and as needed for changes in condition. /sharron/ CANDICE JASMINE [facility] NURSE PRACTITIONER Signed: 01/16/2024 09:35 01/16/2024 ADDENDUM STATUS: COMPLETED Continue to review medication regimen quarterly. /sharron/ Candice Musa PharmD Clinical Bunker Worker Signed: 01/16/2024 14:19 01/16/2024 ADDENDUM STATUS: COMPLETED [facility] SW will provide caregiver supportive visits and psychosocial supportive visits as needed. [facility] SW will complete annual [facility] SW Assessment April 2024. [facility] SW will offer caregivr supportive visits at least quaterly. /sharron/ OLEG Sandhu [facility] Tractor Engine Mechanic Signed: 01/16/2024 14:27 CANDICE JASMINE [facility] [facility] Jan 12, 2024 09:20 AM [facility] NOTE: LOCAL TITLE: [facility] INTERDISCIPLINARY NOTE STANDARD TITLE: [facility] NOTE DATE OF NOTE: JAN 12, 2024@09:20 ENTRY DATE: JAN 12, 2024@09:20:56 AUTHOR: JENNIFER SEGURA COSIGNER: URGENCY: STATUS: COMPLETED [facility] INTERDISCIPLINARY NOTE Has ADDENDA INTERDISCIPLINARY NOTE Allergies: LIPITOR, AMOXICILLIN, ERYTHROMYCIN, FLOMAX, SEROQUEL, LEVAQUIN, CONTRAST MEDIA MIRTAZAPINE Risk Assessment Level 1 Low risk DNR: No Advanced Directive Completed: Yes Family/Community Support: Zora lives in a single family home with his Tory who is his primary caregiver/HCP/DPOA. Spouse has limited support. She has a brother Stephon who lives in [place] who will come over and stay with jahairat while spouse goes on errands. Jahairat requires assist with all adl's, dependent on all Iadl's. Receives LEAD BURNER APPRENTICE services through [place] 9 hours a week ([facility]). Mental Status: A & O X 3, Forgetfulness PLAN OF CARE 90 day review Dates covered by plan of care from Dec to Mar Primary Care Provider: Luis Fernando Fontanez PROBLEM LIST: Active problems - Computerized Problem List is the source for the followin. Constipation 2. Under care of multiple providers Dr. Shirin HUTCHISON [place] PCP Neurologist : Dr. Dino Doan [facility] Orthopedist: MIRELA Bailey Architect In Training: Dr. Ha Man 3. Exposure to potentially hazardous substance Connect Snomed Code to ICD 10 Code refer to note dated 03/21/23 4. Long-term current use of anticoagulant 5. Gingivitis 6. Parkinsonism 7. Squamous cell carcinoma of skin 8. Basal cell carcinoma of skin multiple sites-head, arm, neck 9. Hypotension Intermittent 10. Benign prostatic hyperplasia 11. Hematuria Intermittent 12. Diverticular disease of colon 13. Internal hemorrhoids 14. REM sleep behavior disorder 15. Peripheral vascular disease of Carotids- L more than Right 16. Migraine 17. Solitary nodule of lung 2mm-via CT 18. Dupuytren's contracture 19. Multiple renal cysts 20. Atrial flutter 21. History of deep vein thrombosis 22. Memory loss 23. Sundowning 24. Urinary incontinence 25. Insomnia 26. Gastroesophageal reflux disease 27. AF- Atrial Fibrillation ([facility] [id number]) followed by [facility] Cardiology 28. Parkinson's disease followed by [place] [facility] Dr. Fabby Sun 29. Kidney Stone ([facility] [id number]) [place] Medications: Active Outpatient Medications (including Supplies): Active [...] ONE TABLET BY MOUTH AT ACTIVE BEDTIME 13) INCONT LINER PREVAIL GUARDS #[id number] USE 1 LINER ACTIVE TOPICALLY TWO TIMES A DAY 14) INCONT LINER,MENS X-HVY [facility] #[id number] USE 1 LINER HOLD TOPICALLY AT BEDTIME [...] MOUTH ACTIVE ONCE DAILY 24) UNDERPAD,BED ULTRASORB [id number] M#3136 USE 2 UNDERPADS ACTIVE TOPICALLY AT BEDTIME Active Non-VA Medications Status 1) Non-VA DOCUSATE NA 100MG CAP 100MG BY MOUTH ONCE ACTIVE DAILY NEEDED 2) Non-VA LORAZEPAM 0.5MG TAB 0.5MG BY MOUTH ONCE DAILY ACTIVE NEEDED 26 Total Medications Gender Specific Health Assessment: BPH, Urinary Incontinence Fall Risk: [facility] 10 Fall Risk Assessment Tool Required [...] considered at risk for falling. Created by: [facility] Functional Limitations Use of [...] per every 4- weeks and 2 PRN [facility] RN visits for changes in Health Status [...] The One Thing that Matters to the [place] was used to align the current care plan. reports what matters the most to him is to be able to live in his house with his with assistance from [facility] and [facility] as long as he can. MEDICATION Medications were addressed at this visit. Spouse administers medications MENTATION Depression was addressed at this visit. denies feeling depressed. Comment: PHQ-2 Mental Health Screening performed by [facility] RN this visit. Over the past two weeks, how often have you been bothered by the following problems? 1. Little interest or pleasure in doing things? 0 = Not at all 2. Feeling down, depressed, or hopeless? 0 = Not at all Total Score: 0 Interpretation: Negative Comment: CONFERENCE COORDINATOR to Further address at his Initial Assessment [...] Neurologist Dr. Fabby Donahue [address] [facility] and encourage f/u as needed and to follow through recommendations. Monitor effectiveness of medication on stiffness, weakness. Consult LIBRARY TECHNOLOGY INSTRUCTOR for speech therapy when indicated or might be beneficial. [facility] Registered Dietitian for eval and education as [...] increased stimulation, i.e talking when eating. Consult [facility] RD for nutritional needs and assess swallowing. Vet recently attempted barium swallow study but unable to tolerated, not completed. 3. PROBLEM ADDRESSED: BPH, urinary frequency-occasional incontinence. GOAL: minimize urinary complications/infections Interventions: teach important sx to monitor and report to [facility] team related to worsening sx of urinary sx-urgency, frequency, burning/pain, fever, chills, hematuria, flank pain. Follow up with Community Urologist- [facility]- Dr. Lloyd Soares. Encourage med adherence-currently on [...] sounds, peripheral edema, dizziness and report to [facility]. Instruct on medication use, and s/s of bleeding and anticoagulation precautions. 6. PROBLEM ADDRESSED: Fall/injury risk r/t weakness, poor vision-Macular degeneration (2 falls this IDT) GOAL: [place] will remain free of falls for the [...] visual weight gain, ssx of fluid overload. [facility] PT to weigh with wheelchair scale foot [...] will recognize changes that require reporting to [facility] staff patient will demonstrate correct use of adaptive equipment patient will be safe in home with environment adjusted to accommodate decrease in cognition and/or increase in disease progression Involvement of additional [facility] team members: N.P. assess and attach specific plan SW assess and attach specific plan RD assess and attach specific plan P.T. assess and attach specific plan Discharge Plan when able to remain in community safely with assistance of services and or family Per [facility] Discharge Policy [place] remained stable this IDT. 2 falls, no hospitalization or infections.. Zora lives in a single family home with his Tory who is his primary caregiver/HCP/DPOA. Spouse has limited support. She has a brother Stephon who lives in [place] who will come over and stay with vet while spouse goes on errands. Vet requires assist with all adl's, dependent on all Iadl's. Receives LEAD BURNER APPRENTICE services through [place] 9 hours a week ([facility]). PMHX: Parkinson's Disease, Squamous cell carcinoma, basal cell carcinoma, hypotension, BPH, hematuria, diverticular disease, internal hemorrhoids, sleep behavior disorder, PVD, migraines, solitary of lung, dupuytren's contracture, atrial flutter, HX of DVT, memory loss, sundowning, urinary incontinence, insomnia, GERD, A-fib, kidney stones. Past Surgical History: septoplasty, deputren's surgery both hands. 2 heart ablations for afib, 3 lithotripsies. SCC forearm, left. Colonoscopy: One [place] is followed by multiple community providers Community Scow Derrick Operator- Dr. Emil Davis Community PCP- Shirin Patrick Community Neurologist- Dr. Fabby Donahue [facility]- Dr. Lloyd Soares [facility]- Dr. Svitlana Hand PD- [place] followed by Dr.Rani Donahue Neurology. Appt 10/19/23. [facility] neurology increased carbidopa/levodopa SA 25/100mg 1 tab TID to 1 tab 4x/day on 10/19/23. Approval for CC glycopyrrolate 2mg 2-3x/day as ordered by neurology Spouse having difficulty transferring out of hospital bed, reports slides down to end of the bed. HB PT ordered Michael lift, Block to prevent patient from sliding down in bed and positioning pad. HB PT ordered Multipodus Boots and spouse not using the she states the threaded bolt that is sticking out of the bottom of them are a safety issue. [place] unsettled at night, taking off depends, trying to get out of bed. Spouse reports she purchased baby bumpers and adult onesies online and they are working out great. Baby bumper keeps from getting out of bed and the adult onesies keeps from taking of his diaper. Obstructive sleep apnea- Patient was offered to receive home sleep testing device by mail and accepted. Atrial fibrillation - EKG done on 10/16 and a 14 day ZioPatch XT was applied to [place]. Long-term current use of anticoagulant. [facility] PCP considering stopping anticoagulation depending on the 14 day loop monitor. ZioPatch ET results revealed no triggered or diary events noted. Atrial fibrillation was not detected during this period of time. Patient had occasional episodes of isolated supraventricular ectopy. Patient did not report any symptoms at the time of the SVT. Results sent to Dr. Vickey Gooden Cardiac Acct Exec [facility] Cardiovascular [facility] supervisor audit clerks who recommended to continue on apixaban. Next appt 06/25/[address]-scan 01/08 at Radiology and [facility], [address] [place] [address], [phone]. CT scan abdomen/pelvis without contrast. Will have results faxed to [place]. Incontinent of urine. uses quick change urine management wrap with oversized poise pad. 01/[address] Lloyd Soares Urologist for cystoscopy. [facility] will have results faxed to [place]. manages and administers meds. manages and administers meds in pudding or applesauce. Little trouble swallowing. Needs extra sip of a drink to get pills down. Reviewed medication regimen. Spouse administering meds as directed. Updated Spouse having caregiver stress burden. [facility] SW recommended caregiver has to connect with Caregiver Support. [facility] SW provided education in regards to Caregiver support program. Spouse reports they finally found [facility] who is reliable and has been coming Tuesday-through Tuesday and is working out great which has help considerably. Reviewed at IDT. Team agrees with POC /es/ JENNIFER SEGURA FORM TAMPER [facility] FIELD CROP FARMER Signed: 01/16/2024 08:07 Receipt Acknowledged By: 01/23/2024 13:44 /es/ Olga Jones, MSN, MORTGAGE LENDER [facility] Materials Recycler 01/16/2024 16:44 /es/ SANJUANITA PEDROZA [facility] poll watcher 01/16/2024 14:19 /es/ Candice Musa, PaulD Clinical Bunker Worker 01/16/2024 16:24 /es/ Jacqui Srivastava [facility] Occupational Therapist for RAMIN MENDIETA 01/16/2024 08:32 /es/ RIGO FENTON, MS, RDN, LDN Staff Dietitian 01/16/2024 14:25 /sharron/ OLEG Sandhu DARSHAN Tractor Engine Mechanic 01/16/2024 18:01 /es/ MEGAN Villa MD 01/16/2024 09:35 /es/ CANDICE JASMINE [facility] NURSE PRACTITIONER for LUIS FERNANDO FONTANEZ 01/16/2024 ADDENDUM STATUS: COMPLETED Nutrition-Case discussed at IDT meeting. Patient was last seen by [facility] dietitian on 05/11/23. See Consult Report/Nutrition and Clerical Order Filler for nutrition assessment. Plan: 1. Follow-up visit: annually or sooner as needed if change in condition 2. Monitor progress toward achievement of Nutrition Intervention Goals 3. Assess comprehension and motivation based on dietary changes made 4. Monitor progress toward achievement of Clinical Outcome Goals: Weight, Labs, Swallowing, Bowel movements 5. Follow for clinical issues at IDT meetings and with quarterly chart review. /sharron/ RIGO FENTON, MS, RDN, LDN Staff Dietitian Signed: 01/16/2024 08:33 01/16/2024 ADDENDUM STATUS: COMPLETED Will continue to follow every 6-12 months for routine medical care and as needed for changes in condition. /sharron/ CANDICE JASMINE [facility] NURSE PRACTITIONER Signed: 01/16/2024 09:35 01/16/2024 ADDENDUM STATUS: COMPLETED Continue to review medication regimen quarterly. /sharron/ Candice Musa PharmD Clinical Bunker Worker Signed: 01/16/2024 14:19 01/16/2024 ADDENDUM STATUS: COMPLETED [facility] SW will provide caregiver supportive visits and psychosocial supportive visits as needed. HB SW will complete annual [facility] SW Assessment April 2024. [facility] SW will offer caregivr supportive visits at least quaterly. /sharron/ OLEG Sandhu [facility] Tractor Engine Mechanic Signed: 01/16/2024 14:27 01/16/2024 ADDENDUM STATUS: COMPLETED CT scan received from [facility], multiple stones, non obstructing and no hydronephrosis. Updated problem list. It does appear he has Urology follow up. /sharron/ CANDICE JASMINE [facility] NURSE PRACTITIONER Signed: 01/16/2024 17:58 Receipt Acknowledged By: 01/16/2024 19:47 /sharron/ JENNIFER SEGURA, FORM TAMPER [facility] FIELD CROP FARMER 01/19/2024 ADDENDUM STATUS: COMPLETED WHAT MATTERS What Matters was addressed at this visit. Comment: patient does not speak much; patient's spouse (caregiver) wants patient to progress his mobility MOBILITY -------- Mobility was addressed at this visit. Comment: JH-HLM = 7 [facility] PT following patient as required for equipment. /sharron/ RAMIN MENDIETA, PT, MS, ATP [facility] Physical Therapist Signed: 01/19/2024 11:03 JENNIFER SEGURA [facility]
--- OUTSIDE RECORDS SUMMARY | 2024-05-30 08:46 | XMS_ITS ---
Author Name [facility] [place] Address [address] [place] [address] Care Team Providers Care Director Presales Name Role Phone LUIS FERNANDO FONTANEZ Primary [...] SIMS ION [id number] 1 Jun 20, 2017 [id number] EAMON OLIVIA ERT PATIENT MEDICARE (WNR) MEDICARE (M) PART A Jun 20, 2014 PART A [id number] [phone] EAMON OLIVIA ERT PATIENT MEDICARE (WNR) MEDICARE (M) PART B Jun 20, 2014 PART B [id number] [phone] EAMON OLIVIA ERT PATIENT MEDICARE (WNR) MEDICARE (M) PART A Jun 20, 2014 PART A [id number] EAMON OLIVIA ERT PATIENT MEDICARE (WNR) MEDICARE (M) PART B Jun 20, 2014 PART B [id number] EAMON OLIVIA ERT PATIENT OPTUM RX PRESCRIPT ION RX Jun 20, 2023 THPRX [id number] [phone] EAMON OLIVIA ERT PATIENT [facility] RX PRESCRIPT ION RX Jun 20, 2022 THPRX [id number] EAMON OLIVIA ERT PATIENT [facility] RX PRESCRIPT ION RX Jun 20, 2022 THPRX [id number] DAVON OLIVIA JR PATIENT [facility] Jun 20, 2017 [id number] EAMON OLIVIA ERT [facility]IENT [facility] Jun 20, 2017 [id number] DAVON OLIVIA JR [facility]IENT [facility] Jun 20, 2017 [id number] DAVON OLIVIA JR PATIENT [facility] USP Jun 20, 2017 [facility] [id number] EAMON OLIVIA ERT PATIENT [facility] Jun 20, 2023 [id number] EAMON OLIVIA ERT PATIENT Selected Encounter This section includes the information on record at [place] for the Encounter. Date/Time Encounter Type Encounter Description Reason Provider Source Jan 23, 2024 10:00 AM WOUND(S) CARE NON-SELECTIVE HB Nursing (RN / LP) ICD-10-CM G20.A1 Parkinson's dis w/o dyskinesia, w/o mention of fluctuations RISING,HEATHE R L E Encounter Template Text not used by [place] Assessments - Encounter Diagnoses This section includes the primary and secondary diagnoses documented for the Encounter. Date/Time Primary/Secondary Diagnosis Diagnosis Name Provider Source Jan 24, 2024 06:46 PM PRIMARY Parkinson's dis w/o dyskinesia, w/o mention of fluctuations RISING,HEATHE R L [place] [facility] [place] [facility] Jan 24, 2024 06:46 PM SECONDARY Hematuria, unspecified RISING,GUILLERMOHE R L [facility] [place] [facility] Jan 24, 2024 06:46 PM SECONDARY Unspecified atrial fibrillation RISING,GUILLERMOHE R L [facility] [place] [facility] Jan 24, 2024 06:46 PM SECONDARY Unspecified urinary incontinence RISINGJIE R L [facility] [place] [facility] Plan of Treatment: Future Appointments (+ 6 months) and Future Tests (+/- 45 days) The Plan of Treatment section includes future care activities for the [facility] [place] [facility]. This section includes future appointments and [...] REHAB MEDICIN E [facility] [place] [facility] Feb 14, 2024 12:30 PM AMBULATORY - REHAB MEDICIN E [facility] [place] [facility] Mar 15, 2024 10:00 AM AMBULATORY - REHAB MEDICIN E [facility] [place] [facility] Mar 22, 2024 08:00 AM AMBULATORY - MEDICINE [facility] [place] [facility] Mar 22, 2024 01:00 PM AMBULATORY - NONE [facility] [place] [facility] Mar 27, 2024 02:30 PM AMBULATORY - MEDICINE [place] [facility] [place] [facility] Mar 29, 2024 11:00 AM AMBULATORY - REHAB MEDICIN E [facility] [place] [facility] Apr 12, 2024 11:00 AM AMBULATORY - REHAB MEDICIN E [facility] [place] [facility] Apr 26, 2024 09:00 AM AMBULATORY - MEDICINE [facility] [place] [facility] Apr 26, 2024 11:00 AM AMBULATORY - REHAB MEDICIN E [facility] [place] [facility] Active, Pending, and Scheduled Orders This section includes a listing of several types of active, pending, and scheduled orders, including clinic medications orders, diagnostic test orders, procedure orders and consult orders; where the start date of the order is 45 days before the date of the Encounter or 45 days after the date of theEncounter. The data comes from all [place] treatment facilities. Test Date/Time Test Type Test Details Facility Name Feb 29, 2024 07:27 AM Consult Order COMMUNITY CARE-GEC NON-SKILLED HOME HEALTH AIDE Cons [facility] Feb 29, 2024 01:44 PM Consult Order COMMUNITY CARE-SPEECH THERAPY [facility] [place] [facility] Vital Signs: All taken on the encounter date This section contains inpatient and outpatient Vital Signs collected on the date of the Encounter. Date/Time Temperature Pulse Blood Pressure Respiratory Rate SP02 Pain Height Weight Body Mass Index Source Jan 23, 2024 10:00 AM 98.6 60 100/58 18 98 0 [facility] Social History: Smoking Status (Most current) [...] 19, 2023 12:24 PM VA-TOBACCO NEVER USED [facility] Tobacco Use History This section includes a history of the smoking, or tobacco-related health factors, that were collected on or before the date of the Encounter. The data comes from the [place] facility where the Encounter took place. Date/Time Smoking Status/Tobacco Use Comment F acility Jan 15, 2021 11:00 AM VA-TOBACCO NEVER USED [facility] Advance Directives: All historical and current [...] Jan 20, 2021 ADVANCE DIRECTIVE [facility] Encounter Notes: All associated encounter notes This section contains the clinical notes associated to the Encounter. Date/Time Encounter Note(s) Provider Source Feb 24, 2024 03:05 AM ADDENDUM: LOCAL TITLE: Addendum STANDARD TITLE: ADDENDUM DATE OF NOTE: FEB 24, 2024@03:05:49 ENTRY DATE: FEB 24, 2024@03:05:51 AUTHOR: CANDICE GEORGE COSIGNER: URGENCY: STATUS: COMPLETED Medications reviewed for dysphagia. Medications that CAN be crushed: - APIXABAN 5MG TAB TAKE ONE TABLET BY MOUTH EVERY 12 HOURS ACTIVE FOR ATRIAL FIBRILLATION - CARBIDOPA 25/LEVODOPA 100MG TAB TAKE 1 TABLET BY MOUTH ACTIVE FOUR TIMES A DAY - Also available as ODT (NF) - CHOLECALCIF 25MCG (D3-1,000UNIT) TAB TAKE ONE TABLET BY ACTIVE MOUTH ONCE DAILY FOR VITAMIN SUPPLEMENTATION - Also available as oral drops (NF) - FAMOTIDINE 20MG TAB TAKE ONE TABLET BY MOUTH ONCE DAILY ACTIVE FOR STOMACH ACID - GLYCOPYRROLATE 2MG TAB TAKE ONE TABLET BY MOUTH DIRECTED BY PROVIDER 2-3 TIMES PER DAY NEEDED FOR SECRETIONS - HYDROCHLOROTHIAZIDE 25MG TAB TAKE ONE TABLET BY MOUTH ONCE ACTIVE DAILY FOR HIGH BLOOD PRESSURE - HYDROXYZINE HCL 10MG TAB TAKE ONE TABLET BY MOUTH AT ACTIVE BEDTIME - Also available as oral syrup - MELATONIN 5MG CAP/TAB TAKE THREE CAPSULE/TABLETS BY MOUTH ACTIVE AT BEDTIME FOR INSOMNIA - Crushable if tablet - MEMANTINE HCL 10MG TAB TAKE ONE TABLET BY MOUTH TWICE ACTIVE DAILY - Also available as oral soln (NF) - MIDODRINE HCL 5MG TAB TAKE ONE TABLET BY MOUTH THREE TIMES ACTIVE DAILY NEEDED FOR LOW BLOOD PRESSURE - MULTIVITAMIN/MINERALS CAP/TAB TAKE 1 TABLET BY MOUTH ONCE ACTIVE DAILY FOR VITAMIN SUPPLEMENTATION - Also available as oral liquid and chewable tablet - RASAGILINE MESYLATE 1MG TAB TAKE ONE TABLET BY MOUTH ONCE ACTIVE DAILY - Selegiline patch is available - Non-VA LORAZEPAM 0.5MG TAB 0.5MG BY MOUTH ONCE DAILY ACTIVE NEEDED Do NOT crush: - CARBIDOPA 25/LEVODOPA 100MG SA TAB TAKE 1 TABLET BY MOUTH ACTIVE FOUR TIMES A DAY - Non-VA DOCUSATE NA 100MG CAP 100MG BY MOUTH ONCE DAILY ACTIVE NEEDED - Also available as oral liquid /sharron/ Candice George PharmD Clinical Pool Servicer Signed: 02/24/2024 03:32 Receipt Acknowledged By: 02/24/2024 08:30 /es/ JENNIFER SEGURA RN BSN HBDARSHAN GENERAL COUNSEL 02/24/2024 08:37 /es/ CANDICE JASMINE DARSHAN NURSE PRACTITIONER for LUIS FERNANDO Chacko YOUNG --- Original Document --- 01/23/24 HB RN PROGRESS NOTE: Nursing Progress Note [...] A DAY 14) INCONT LINER,MENS X-HVY SURECARE #[id number] USE 1 LINER HOLD TOPICALLY AT BEDTIME [...] MOUTH ACTIVE ONCE DAILY 24) UNDERPAD,BED ULTRASORB [id number] M#3136 USE 2 UNDERPADS ACTIVE TOPICALLY AT [...] Recognition Length of visit in home: 60 MINUTES Problem addressed for this visit: PD, Fall, hematuria, dysphagia Specimen(s) collected during this visit: None NURSING SUMMARY: RNCM made home visit for chronic disease management, neuro assessment, c/v and c/p assessment. sitting in his recliner in the living room upon arrival, spouse present. [place] well groomed. Dressed appropriately. Poor eye contact. Soft spoken. Spouse reports Woodsfield had an unwitnessed fall last week. [place] bent over and lost his balance. Spouse reports she checked him from top to bottom and he didn't hit his head. Bruising noted to hands no other injuries. Not complaining of pain or discomfort. Last week Woodsfield sustained skin tear to right upper arm from the bathroom door knob, spouse purchased and put on door knob safety cover. Spouse applying xeroform and covering with mepilex every 3-4 days. area healing well. no drainage, redness. No ssx of infection. Reviewed with spouse [place] is on apixaban and if he falls and hit his head he needs to go to the ER to be evaluated. New hospital bed arrived. Waiting for onur lift. Spouse reports Woodsfield had a choking episode swallowing pills last week where she had to intervene and perform the Heimlich mauver. Spouse administering pills with water with a straw. Recommended administering pills in applesauce or pudding. Spouse reports she has tried this and he does better sipping water through straw. Some of 's medications can't be crushed. Discussed putting in a speech consult to help strengthening. Spouse agreed. Speech consult added. Will alert [facility] pharmacist to see what medications can be switched to liquid form. manages medications. Reviewed medication regimen. Spouse administering meds as directed. Updated med list left in the home. Intermittent Hematuria. CT[facility] 01[facility], [phone]. CT scan abdomen/pelvis without contrast. CT scan received from [facility], multiple stones, non-obstructing and no hydronephrosis. Home sleep testing was completed by the patient and the device was returned. The data has been uploaded. Spouse requesting [facility] PCP to call to review results. Blood Pressure: 100/58 (01/23/2024 10:00) Pulse: 60 (01/23/2024 10:00) Respiration: 18 (01/23/2024 10:00) Temperature: 98.6 F [37.0 C] (01/23/2024 10:00) Pain Score: 0 (01/23/2024 10:00) EXAMINATION: Lungs: Ls clear throughout. Resp easy and reg. Edema: PPP, No edema HR: Strong and reg. Denies chest pain, palpations, dizziness. Bowel/Bladder: Incontinent of urine. uses quick change urine management wrap with oversized poise pad. Occasional incontinence of stool. Denies diarrhea/constipation. Skin: Clean, dry and intact. No skin breakdown Home Safety FALLS YES INFECTIONS NO ER/HOSPITALIZATIONS NO Teaching/goals: Refer to nursing summary. Woodsfield goal is to live at home safely with his as long as possible with assist from his and [facility], [facility] Patient verbalizes understanding to above and will call with any concerns or changes in condition. For emergent care call 911. Revisit: 02/27 for chronic disease management, neuro assessment, c/v and c/p assessment, med review, /es/ JENNIFER SEGURA MEDICAL TRANSCRIPTION EDITOR [facility] GENERAL COUNSEL Signed: 01/24/2024 18:46 01/24/2024 ADDENDUM STATUS: COMPLETED Spouse reports had a choking episode swallowing pills last week where she had to intervene and perform the Heimlich mauver. Spouse administering pills with water through a straw. Recommended administering pills in applesauce or pudding. Spouse reports she has tried this and he does better sipping water through straw. Some of 's medications can't be crushed. Discussed putting in a speech consult to help strengthening. Spouse agreed. Speech consult added. Will alert [facility] pharmacist to see what medications can be switched to liquid form. Home sleep testing was completed by the patient and the device was returned. The data has been uploaded. Spouse requesting [facility] PCP to call to review results. /sharron/ ZACHARIAH SWIFT [facility] GENERAL COUNSEL Signed: 01/24/2024 18:48 Receipt Acknowledged By: 02/24/2024 03:32 /consuelo George PharmD Clinical Pool Servicer 01/24/2024 ADDENDUM STATUS: COMPLETED Please relase the Hold. Thank you OUTPT MELATONIN 5MG CAP/TAB (Status = On Hold) TAKE THREE CAPSULE/TABLETS BY MOUTH AT BEDTIME FOR INSOMNIA Rx# [id number] Last Released: Qty/Days Supply: 270/90 Rx Expiration Date: 10/26/24 Refills Remainin Indication: FOR INSOMNIA /es/ ZACHARIAH SWIFT [facility] GENERAL COUNSEL Signed: 01/24/2024 18:52 Receipt Acknowledged By: 01/26/2024 13:04 /sharron/ Candice George PharmD Clinical Pool Servicer 01/24/2024 ADDENDUM STATUS: COMPLETED Please release the hold. Thank you OUTPT INCONT LINER,MENS X-HVY SURECARE #[id number] (Status = On Hold) USE 1 LINER TOPICALLY AT BEDTIME Rx# [id number] Last Released: Qty/Days Supply: 84/84 Rx Expiration Date: 10/10/24 Refills Remainin Indication: INCONTINENCE /es/ ZACHARIAH SWIFT [facility] GENERAL COUNSEL Signed: 01/24/2024 18:54 Receipt Acknowledged By: 01/26/2024 13:05 /consuelo George PharmD Clinical Pool Servicer CANDICE GEORGE [facility] [place] [facility] Jan 24, 2024 06:53 PM ADDENDUM: LOCAL TITLE: Addendum STANDARD TITLE: ADDENDUM DATE OF NOTE: JAN 24, 2024@18:53:20 ENTRY DATE: JAN 24, 2024@18:53:21 AUTHOR: JENNIFER SEGURA EXP COSIGNER: URGENCY: STATUS: COMPLETED Please release the hold. Thank you OUTPT INCONT LINER,MENS X-HVY SURECARE #[id number] (Status = On Hold) USE 1 LINER TOPICALLY AT BEDTIME Rx# [id number] Last Released: Qty/Days Supply: Rx Expiration Date: 10/10/24 Refills Remainin Indication: INCONTINENCE /es/ ZACHARIAH SWIFT GENERAL COUNSEL Signed: 01/24/2024 18:54 Receipt Acknowledged By: 01/26/2024 13:05 /es/ Candice George PharmD Clinical Pool Servicer --- Original Document --- 01/23/24 MARILIN RN PROGRESS NOTE: Nursing Progress Note [...] A DAY 14) INCONT LINER,MENS X-HVY SURECARE #04070J USE 1 LINER HOLD TOPICALLY AT BEDTIME [...] MOUTH ACTIVE ONCE DAILY 24) UNDERPAD,BED ULTRASORB [id number] M#0576 USE 2 UNDERPADS ACTIVE TOPICALLY AT BEDTIME [...] Recognition Length of visit in home: 60 MINUTES Problem addressed for this visit: PD, Fall, hematuria, dysphagia Specimen(s) collected during this visit: None NURSING SUMMARY: RNCM made home visit for chronic disease management, neuro assessment, c/v and c/p assessment. sitting in his recliner in the living room upon arrival, spouse present. [place] well groomed. Dressed appropriately. Poor eye contact. Soft spoken. Spouse reports Woodsfield had an unwitnessed fall last week. bent over and lost his balance. Spouse reports she checked him from top to bottom and he didn't hit his head. Bruising noted to hands no other injuries. Not complaining of pain or discomfort. Last week Woodsfield sustained skin tear to right upper arm from the bathroom door knob, spouse purchased and put on door knob safety cover. Spouse applying xeroform and covering with mepilex every 3-4 days. area healing well. no drainage, redness. No ssx of infection. Reviewed with spouse [place] is on apixaban and if he falls and hit his head he needs to go to the ER to be evaluated. New hospital bed arrived. Waiting for onur lift. Spouse reports [place]field had a choking episode swallowing pills last week where she had to intervene and perform the Heimlich mauver. Spouse administering pills with water with a straw. Recommended administering pills in applesauce or pudding. Spouse reports she has tried this and he does better sipping water through straw. Some of Woodsfield's medications can't be crushed. Discussed putting in a speech consult to help strengthening. Spouse agreed. Speech consult added. Will alert [facility] pharmacist to see what medications can be switched to liquid form. manages medications. Reviewed medication regimen. Spouse administering meds as directed. Updated med list left in the home. Intermittent Hematuria. CT[facility] 01[facility] [address] [facility], [phone]. CT scan abdomen/pelvis without contrast. CT scan received from [facility], multiple stones, non-obstructing and no hydronephrosis. Home sleep testing was completed by the patient and the device was returned. The data has been uploaded. Spouse requesting [facility] PCP to call to review results. Blood Pressure: 100/58 (01/23/2024 10:00) Pulse: 60 (01/23/2024 10:00) Respiration: 18 (01/23/2024 10:00) Temperature: 98.6 F [37.0 C] (01/23/2024 10:00) Pain Score: 0 (01/23/2024 10:00) EXAMINATION: Lungs: Ls clear throughout. Resp easy [...] as possible with assist from his and [facility], [facility] Patient verbalizes understanding to above and will call with any concerns or changes in condition. For emergent care call 911. Revisit: 02/27 for chronic disease management, neuro assessment, c/v and c/p assessment, med review, /sharron/ JENNIFER SEGURA MEDICAL TRANSCRIPTION EDITOR [facility] GENERAL COUNSEL Signed: 01/24/2024 18:46 01/24/2024 ADDENDUM STATUS: COMPLETED Spouse reports had a choking episode swallowing pills last week where she had to intervene and perform the Heimlich mauver. Spouse administering pills with water through a straw. Recommended administering pills in applesauce or pudding. Spouse reports she has tried this and he does better sipping water through straw. Some of Woodsfield's medications can't be crushed. Discussed putting in a speech consult to help strengthening. Spouse agreed. Speech consult added. Will alert [facility] pharmacist to see what medications can be switched to liquid form. Home sleep testing was completed by the patient and the device was returned. The data has been uploaded. Spouse requesting [facility] PCP to call to review results. /sharron/ ZACHARIAH SWIFT DARSHAN GENERAL COUNSEL Signed: 01/24/2024 18:48 Receipt Acknowledged By: * AWAITING SIGNATURE * CANDICE GEORGE 01/24/2024 ADDENDUM STATUS: COMPLETED Please relase the Hold. Thank you OUTPT MELATONIN 5MG CAP/TAB (Status = On Hold) TAKE THREE CAPSULE/TABLETS BY MOUTH AT BEDTIME FOR INSOMNIA Rx# [id number] Last Released: Qty/Days Supply: 270/90 Rx Expiration Date: 10/26/24 Refills Remainin Indication: FOR INSOMNIA /es/ JENNIFERZACHARIAH MORALES [facility] GENERAL COUNSEL Signed: 01/24/2024 18:52 Receipt Acknowledged By: 01/26/2024 13:04 /consuelo George PharmD Clinical Pool Servicer JENNIFER SEGURA [place] [facility] Jan 24, 2024 06:50 PM ADDENDUM: LOCAL TITLE: Addendum STANDARD TITLE: ADDENDUM DATE OF NOTE: JAN 24, 2024@18:50:29 ENTRY DATE: JAN 24, 2024@18:50:30 AUTHOR: JENNIFER SEGURA EXP COSIGNER: URGENCY: STATUS: COMPLETED Please relase the Hold. Thank you OUTPT MELATONIN 5MG CAP/TAB (Status = On Hold) TAKE THREE CAPSULE/TABLETS BY MOUTH AT BEDTIME FOR INSOMNIA Rx# [id number] Last Released: Qty/Days Supply: 270/90 Rx Expiration Date: 10/26/24 Refills Remainin Indication: FOR INSOMNIA /es/ ZACHARIAH SWIFT GENERAL COUNSEL Signed: 01/24/2024 18:52 Receipt Acknowledged By: 01/26/2024 13:04 /consuelo George PharmD Clinical Pool Servicer --- Original Document --- 01/23/24 [facility] RN PROGRESS NOTE: Nursing Progress Note [...] A DAY 14) INCONT LINER,MENS X-HVY SURECARE #[id number] USE 1 LINER HOLD TOPICALLY AT BEDTIME [...] MOUTH ACTIVE ONCE DAILY 24) UNDERPAD,BED ULTRASORB [id number] M#3136 USE 2 UNDERPADS ACTIVE TOPICALLY AT [...] in patient's home at time of visit. [place] identified by: Full Name, Facial Recognition Length of visit in home: 60 MINUTES Problem addressed for this visit: PD, Fall, hematuria, dysphagia Specimen(s) collected during this visit: None NURSING SUMMARY: RNCM made home visit for chronic disease management, neuro assessment, c/v and c/p assessment. [place] sitting in his recliner in the living room upon arrival, spouse present. [place] well groomed. Dressed appropriately. Poor eye contact. Soft spoken. Spouse reports had an unwitnessed fall last week. [place] bent over and lost his balance. Spouse reports she checked him from top to bottom and he didn't hit his head. Bruising noted to hands no other injuries. Not complaining of pain or discomfort. Last week sustained skin tear to right upper arm from the bathroom door knob, spouse purchased and put on door knob safety cover. Spouse applying xeroform and covering with mepilex every 3-4 days. area healing well. no drainage, redness. No ssx of infection. Reviewed with spouse is on apixaban and if he falls and hit his head he needs to go to the ER to be evaluated. New hospital bed arrived. Waiting for onur lift. Spouse reports [place] had a choking episode swallowing pills last week where she had to intervene and perform the Heimlich mauver. Spouse administering pills with water with a straw. Recommended administering pills in applesauce or pudding. Spouse reports she has tried this and he does better sipping water through straw. Some of 's medications can't be crushed. Discussed putting in a speech consult to help strengthening. Spouse agreed. Speech consult added. Will alert [facility] pharmacist to see what medications can be switched to liquid form. manages medications. Reviewed medication regimen. Spouse administering meds as directed. Updated med list left in the home. Intermittent Hematuria. CT-scan 01/08 at Radiology and [facility], [address] [place] [address], [phone]. CT scan abdomen/pelvis without contrast. CT scan received from [facility], multiple stones, non-obstructing and no hydronephrosis. Home sleep testing was completed by the patient and the device was returned. The data has been uploaded. Spouse requesting [facility] PCP to call to review results. Blood Pressure: 100/58 (01/23/2024 10:00) Pulse: 60 (01/23/2024 10:00) Respiration: 18 (01/23/2024 10:00) Temperature: 98.6 F [37.0 C] (01/23/2024 10:00) Pain Score: 0 (01/23/2024 10:00) EXAMINATION: Lungs: Ls clear throughout. Resp easy and reg. Edema: PPP, No edema HR: Strong and reg. Denies chest pain, palpations, dizziness. Bowel/Bladder: Incontinent of urine. uses quick change urine management wrap with oversized poise pad. Occasional incontinence of stool. Denies diarrhea/constipation. Skin: Clean, dry and intact. No skin breakdown Home Safety FALLS YES INFECTIONS NO ER/HOSPITALIZATIONS NO Teaching/goals: Refer to nursing summary. [place] goal is to live at home safely with his as long as possible with assist from his and [facility], [facility] Patient verbalizes understanding to above and will call with any concerns or changes in condition. For emergent care call 911. Revisit: 02/27 for chronic disease management, neuro assessment, c/v and c/p assessment, med review, /ZACHARIAH RodriguezN [facility] GENERAL COUNSEL Signed: 01/24/2024 18:46 01/24/2024 ADDENDUM STATUS: COMPLETED Spouse reports [place] had a choking episode swallowing pills last week where she had to intervene and perform the Heimlich mauver. Spouse administering pills with water through a straw. Recommended administering pills in applesauce or pudding. Spouse reports she has tried this and he does better sipping water through straw. Some of [place]'s medications can't be crushed. Discussed putting in a speech consult to help strengthening. Spouse agreed. Speech consult added. Will alert [facility] pharmacist to see what medications can be switched to liquid form. Home sleep testing was completed by the patient and the device was returned. The data has been uploaded. Spouse requesting [facility] PCP to call to review results. /ZACHARIAH Rodriguez [facility] GENERAL COUNSEL Signed: 01/24/2024 18:48 Receipt Acknowledged By: * AWAITING SIGNATURE * ARIELCANDICE 01/24/2024 ADDENDUM STATUS: COMPLETED Please release the hold. Thank you OUTPT INCONT LINER,MENS X-HVY SURECARE #[id number] (Status = On Hold) USE 1 LINER TOPICALLY AT BEDTIME Rx# [id number] Last Released: Qty/Days Supply: Rx Expiration Date: 10/10/24 Refills Remainin Indication: INCONTINENCE /ZACHARIAH Rodriguez [facility] GENERAL COUNSEL Signed: 01/24/2024 18:54 Receipt Acknowledged By: * AWAITING SIGNATURE * CANDICE GEORGE HEATHER L [place] [facility] [place] [facility] Jan 24, 2024 06:46 PM ADDENDUM: LOCAL TITLE: Addendum STANDARD TITLE: ADDENDUM DATE OF NOTE: JAN 24, 2024@18:46:43 ENTRY DATE: JAN 24, 2024@18:46:44 AUTHOR: JENNIFER SEGURA EXP COSIGNER: URGENCY: STATUS: COMPLETED Spouse reports had a choking episode swallowing pills last week where she had to intervene and perform the Heimlich mauver. Spouse administering pills with water through a straw. Recommended administering pills in applesauce or pudding. Spouse reports she has tried this and he does better sipping water through straw. Some of 's medications can't be crushed. Discussed putting in a speech consult to help strengthening. Spouse agreed. Speech consult added. Will alert [facility] pharmacist to see what medications can be switched to liquid form. Home sleep testing was completed by the patient and the device was returned. The data has been uploaded. Spouse requesting [facility] PCP to call to review results. /sharron/ JENNIFER SEGURA RN BSN [facility] GENERAL COUNSEL Signed: 01/24/2024 18:48 Receipt Acknowledged By: 02/24/2024 03:32 /sharron/ Candice George PharmD Clinical Pool Servicer --- Original Document --- 01/23/24 HB RN PROGRESS NOTE: Nursing Progress Note [...] TIMES A DAY 14) INCONT LINER,MENS X-HVY [facility] #[id number] USE 1 LINER HOLD TOPICALLY AT BEDTIME [...] MOUTH ACTIVE ONCE DAILY 24) UNDERPAD,BED ULTRASORB [id number] M#[id number] USE 2 UNDERPADS ACTIVE TOPICALLY AT [...] Recognition Length of visit in home: 60 MINUTES Problem addressed for this visit: PD, Fall, hematuria, dysphagia Specimen(s) collected during this visit: None NURSING SUMMARY: RNCM made home visit for chronic disease management, neuro assessment, c/v and c/p assessment. [place] sitting in his recliner in the living room upon arrival, spouse present. [place] well groomed. Dressed appropriately. Poor eye contact. Soft spoken. Spouse reports had an unwitnessed fall last week. bent over and lost his balance. Spouse reports she checked him from top to bottom and he didn't hit his head. Bruising noted to hands no other injuries. Not complaining of pain or discomfort. Last week [place] sustained skin tear to right upper arm from the bathroom door knob, spouse purchased and put on door knob safety cover. Spouse applying xeroform and covering with mepilex every 3-4 days. area healing well. no drainage, redness. No ssx of infection. Reviewed with spouse [place] is on apixaban and if he falls and hit his head he needs to go to the ER to be evaluated. New hospital bed arrived. Waiting for onur lift. Spouse reports had a choking episode swallowing pills last week where she had to intervene and perform the Heimlich mauver. Spouse administering pills with water with a straw. Recommended administering pills in applesauce or pudding. Spouse reports she has tried this and he does better sipping water through straw. Some of [place]'s medications can't be crushed. Discussed putting in a speech consult to help strengthening. Spouse agreed. Speech consult added. Will alert [facility] pharmacist to see what medications can be switched to liquid form. manages medications. Reviewed medication regimen. Spouse administering meds as directed. Updated med list left in the home. Intermittent Hematuria. CT-scan 01/08 at [facility], [address] [place] [address], [phone]. CT scan abdomen/pelvis without contrast. CT scan received from [facility], multiple stones, non-obstructing and no hydronephrosis. Home sleep testing was completed by the patient and the device was returned. The data has been uploaded. Spouse requesting [facility] PCP to call to review results. Blood Pressure: 100/58 (01/23/2024 10:00) Pulse: 60 (01/23/2024 10:00) Respiration: 18 (01/23/2024 10:00) Temperature: 98.6 F [37.0 C] (01/23/2024 10:00) Pain Score: 0 (01/23/2024 10:00) EXAMINATION: Lungs: Ls clear throughout. Resp easy [...] as possible with assist from his and [facility], [facility] Patient verbalizes understanding to above and will call with any concerns or changes in condition. For emergent care call 911. Revisit: 02/27 for chronic disease management, neuro assessment, c/v and c/p assessment, med review, /sharron/ ZACHARIAH SWIFT GENERAL COUNSEL Signed: 01/24/2024 18:46 01/24/2024 ADDENDUM STATUS: COMPLETED Please relase the Hold. Thank you OUTPT MELATONIN 5MG CAP/TAB (Status = On Hold) TAKE THREE CAPSULE/TABLETS BY MOUTH AT BEDTIME FOR INSOMNIA Rx# [id number] Last Released: Qty/Days Supply: 270/90 Rx Expiration Date: 10/26/24 Refills Remainin Indication: FOR INSOMNIA /es/ JENNIFER ZACHARIAH [employer] GENERAL COUNSEL Signed: 01/24/2024 18:52 Receipt Acknowledged By: 01/26/2024 13:04 /consuelo George PharmD Clinical Pool Servicer 01/24/2024 ADDENDUM STATUS: COMPLETED Please release the hold. Thank you OUTPT INCONT LINER,MENS X-HVY SURECARE #[id number] (Status = On Hold) USE 1 LINER TOPICALLY AT BEDTIME Rx# [id number] Last Released: Qty/Days Supply: 84/84 Rx Expiration Date: 10/10/24 Refills Remainin Indication: INCONTINENCE /es/ JENNIFERHER Tricia SEGURA, ZACHARIAH GASTON GENERAL COUNSEL Signed: 01/24/2024 18:54 Receipt Acknowledged By: 01/26/2024 13:05 /consuelo George PharmD Clinical Pool Servicer 02/24/2024 ADDENDUM STATUS: COMPLETED Medications reviewed for dysphagia. Medications that CAN be crushed: - APIXABAN 5MG TAB TAKE ONE TABLET BY MOUTH EVERY 12 HOURS ACTIVE FOR ATRIAL FIBRILLATION - CARBIDOPA 25/LEVODOPA 100MG TAB TAKE 1 TABLET BY MOUTH ACTIVE FOUR TIMES A DAY - Also available as ODT (NF) - CHOLECALCIF 25MCG (D3-1,000UNIT) TAB TAKE ONE TABLET BY ACTIVE MOUTH ONCE DAILY FOR VITAMIN SUPPLEMENTATION - Also available as oral drops (NF) - FAMOTIDINE 20MG TAB TAKE ONE TABLET BY MOUTH ONCE DAILY ACTIVE FOR STOMACH ACID - GLYCOPYRROLATE 2MG TAB TAKE ONE TABLET BY MOUTH DIRECTED BY PROVIDER 2-3 TIMES PER DAY NEEDED FOR SECRETIONS - HYDROCHLOROTHIAZIDE 25MG TAB TAKE ONE TABLET BY MOUTH ONCE ACTIVE DAILY FOR HIGH BLOOD PRESSURE - HYDROXYZINE HCL 10MG TAB TAKE ONE TABLET BY MOUTH AT ACTIVE BEDTIME - Also available as oral syrup - MELATONIN 5MG CAP/TAB TAKE THREE CAPSULE/TABLETS BY MOUTH ACTIVE AT BEDTIME FOR INSOMNIA - Crushable if tablet - MEMANTINE HCL 10MG TAB TAKE ONE TABLET BY MOUTH TWICE ACTIVE DAILY - Also available as oral soln (NF) - MIDODRINE HCL 5MG TAB TAKE ONE TABLET BY MOUTH THREE TIMES ACTIVE DAILY NEEDED FOR LOW BLOOD PRESSURE - MULTIVITAMIN/MINERALS CAP/TAB TAKE 1 TABLET BY MOUTH ONCE ACTIVE DAILY FOR VITAMIN SUPPLEMENTATION - Also available as oral liquid and chewable tablet - RASAGILINE MESYLATE 1MG TAB TAKE ONE TABLET BY MOUTH ONCE ACTIVE DAILY - Selegiline patch is available - Non-VA LORAZEPAM 0.5MG TAB 0.5MG BY MOUTH ONCE DAILY ACTIVE NEEDED Do NOT crush: - CARBIDOPA 25/LEVODOPA 100MG SA TAB TAKE 1 TABLET BY MOUTH ACTIVE FOUR TIMES A DAY - Non-VA DOCUSATE NA 100MG CAP 100MG BY MOUTH ONCE DAILY ACTIVE NEEDED - Also available as oral liquid /es/ Candice George PharmD Clinical Pool Servicer Signed: 02/24/2024 03:32 Receipt Acknowledged By: * AWAITING SIGNATURE * JENNIFER SEGURA * AWAITING SIGNATURE * LUIS FERNANDO FONTANEZ HEATHER L [place] [facility] [place] [facility] Jan 23, 2024 10:00 AM [facility] NURSING NOTE: LOCAL TITLE: HB RN PROGRESS NOTE STANDARD TITLE: [facility] NURSING NOTE DATE OF NOTE: JAN 23, 2024@10:00 ENTRY DATE: JAN 24, 2024@18:44:43 AUTHOR: JENNIFER SEGURA EXP COSIGNER: URGENCY: STATUS: [...] A DAY 14) INCONT LINER,MENS X-HVY SURECARE #[id number] USE 1 LINER HOLD TOPICALLY AT BEDTIME [...] MOUTH ACTIVE ONCE DAILY 24) UNDERPAD,BED ULTRASORB [id number] M#3136 USE 2 UNDERPADS ACTIVE TOPICALLY AT [...] Recognition Length of visit in home: 60 MINUTES Problem addressed for this visit: PD, Fall, hematuria, dysphagia Specimen(s) collected during this visit: None NURSING SUMMARY: RNCM made home visit for chronic disease management, neuro assessment, c/v and c/p assessment. [place] sitting in his recliner in the living room upon arrival, spouse present. well groomed. Dressed appropriately. Poor eye contact. Soft spoken. Spouse reports had an unwitnessed fall last week. bent over and lost his balance. Spouse reports she checked him from top to bottom and he didn't hit his head. Bruising noted to hands no other injuries. Not complaining of pain or discomfort. Last week sustained skin tear to right upper arm from the bathroom door knob, spouse purchased and put on door knob safety cover. Spouse applying xeroform and covering with mepilex every 3-4 days. area healing well. no drainage, redness. No ssx of infection. Reviewed with spouse [place] is on apixaban and if he falls and hit his head he needs to go to the ER to be evaluated. New hospital bed arrived. Waiting for onur lift. Spouse reports [place] had a choking episode swallowing pills last week where she had to intervene and perform the Heimlich mauver. Spouse administering pills with water with a straw. Recommended administering pills in applesauce or pudding. Spouse reports she has tried this and he does better sipping water through straw. Some of [place]'s medications can't be crushed. Discussed putting in a speech consult to help strengthening. Spouse agreed. Speech consult added. Will alert [facility] pharmacist to see what medications can be switched to liquid form. manages medications. Reviewed medication regimen. Spouse administering meds as directed. Updated med list left in the home. Intermittent Hematuria. CT-scan 01/08 at [facility], [address] [place] [address], [phone]. CT scan abdomen/pelvis without contrast. CT scan received from [facility], multiple stones, non-obstructing and no hydronephrosis. Home sleep testing was completed by the patient and the device was returned. The data has been uploaded. Spouse requesting [facility] PCP to call to review results. Blood Pressure: 100/58 (01/23/2024 10:00) Pulse: 60 (01/23/2024 10:00) Respiration: 18 (01/23/2024 10:00) Temperature: 98.6 F [37.0 C] (01/23/2024 10:00) Pain Score: 0 (01/23/2024 10:00) EXAMINATION: Lungs: Ls clear throughout. Resp easy [...] as possible with assist from his and [facility], [facility] Patient verbalizes understanding to above and will call with any concerns or changes in condition. For emergent care call 911. Revisit: 02/27 for chronic disease management, neuro assessment, c/v and c/p assessment, med review, /ZACHARIAH Rodriguez DARSHAN GENERAL COUNSEL Signed: 01/24/2024 18:46 01/24/2024 ADDENDUM STATUS: COMPLETED Spouse reports had a choking episode swallowing pills last week where she had to intervene and perform the Heimlich mauver. Spouse administering pills with water through a straw. Recommended administering pills in applesauce or pudding. Spouse reports she has tried this and he does better sipping water through straw. Some of [place]'s medications can't be crushed. Discussed putting in a speech consult to help strengthening. Spouse agreed. Speech consult added. Will alert [facility] pharmacist to see what medications can be switched to liquid form. Home sleep testing was completed by the patient and the device was returned. The data has been uploaded. Spouse requesting [facility] PCP to call to review results. /ZACHARIAH Rodriguez [facility] GENERAL COUNSEL Signed: 01/24/2024 18:48 Receipt Acknowledged By: 02/24/2024 03:32 /consuelo George PharmD Clinical Pool Servicer 01/24/2024 ADDENDUM STATUS: COMPLETED Please relase the Hold. Thank you OUTPT MELATONIN 5MG CAP/TAB (Status = On Hold) TAKE THREE CAPSULE/TABLETS BY MOUTH AT BEDTIME FOR INSOMNIA Rx# [id number] Last Released: Qty/Days Supply: 270/90 Rx Expiration Date: 10/26/24 Refills Remainin Indication: FOR INSOMNIA /ZACHARIAH Rodriguez [facility] GENERAL COUNSEL Signed: 01/24/2024 18:52 Receipt Acknowledged By: 01/26/2024 13:04 /consuelo George PharmD Clinical Pool Servicer 01/24/2024 ADDENDUM STATUS: COMPLETED Please release the hold. Thank you OUTPT INCONT LINER,MENS X-HVY SURECARE #[id number] (Status = On Hold) USE 1 LINER TOPICALLY AT BEDTIME Rx# [id number] Last Released: Qty/Days Supply: Rx Expiration Date: 10/10/24 Refills Remainin Indication: INCONTINENCE /es/ JENNIFER SEGURA MEDICAL TRANSCRIPTION EDITOR [facility] GENERAL COUNSEL Signed: 01/24/2024 18:54 Receipt Acknowledged By: 01/26/2024 13:05 /sharron/ Candice George PharmD Clinical Pool Servicer 02/24/2024 ADDENDUM STATUS: COMPLETED Medications reviewed for dysphagia. Medications that CAN be crushed: - APIXABAN 5MG TAB TAKE ONE TABLET BY MOUTH EVERY 12 HOURS ACTIVE FOR ATRIAL FIBRILLATION - CARBIDOPA 25/LEVODOPA 100MG TAB TAKE 1 TABLET BY MOUTH ACTIVE FOUR TIMES A DAY - Also available as ODT (NF) - CHOLECALCIF 25MCG (D3-1,000UNIT) TAB TAKE ONE TABLET BY ACTIVE MOUTH ONCE DAILY FOR VITAMIN SUPPLEMENTATION - Also available as oral drops (NF) - FAMOTIDINE 20MG TAB TAKE ONE TABLET BY MOUTH ONCE DAILY ACTIVE FOR STOMACH ACID - GLYCOPYRROLATE 2MG TAB TAKE ONE TABLET BY MOUTH DIRECTED BY PROVIDER 2-3 TIMES PER DAY NEEDED FOR SECRETIONS - HYDROCHLOROTHIAZIDE 25MG TAB TAKE ONE TABLET BY MOUTH ONCE ACTIVE DAILY FOR HIGH BLOOD PRESSURE - HYDROXYZINE HCL 10MG TAB TAKE ONE TABLET BY MOUTH AT ACTIVE BEDTIME - Also available as oral syrup - MELATONIN 5MG CAP/TAB TAKE THREE CAPSULE/TABLETS BY MOUTH ACTIVE AT BEDTIME FOR INSOMNIA - Crushable if tablet - MEMANTINE HCL 10MG TAB TAKE ONE TABLET BY MOUTH TWICE ACTIVE DAILY - Also available as oral soln (NF) - MIDODRINE HCL 5MG TAB TAKE ONE TABLET BY MOUTH THREE TIMES ACTIVE DAILY NEEDED FOR LOW BLOOD PRESSURE - MULTIVITAMIN/MINERALS CAP/TAB TAKE 1 TABLET BY MOUTH ONCE ACTIVE DAILY FOR VITAMIN SUPPLEMENTATION - Also available as oral liquid and chewable tablet - RASAGILINE MESYLATE 1MG TAB TAKE ONE TABLET BY MOUTH ONCE ACTIVE DAILY - Selegiline patch is available - Non-VA LORAZEPAM 0.5MG TAB 0.5MG BY MOUTH ONCE DAILY ACTIVE NEEDED Do NOT crush: - CARBIDOPA 25/LEVODOPA 100MG SA TAB TAKE 1 TABLET BY MOUTH ACTIVE FOUR TIMES A DAY - Non-VA DOCUSATE NA 100MG CAP 100MG BY MOUTH ONCE DAILY ACTIVE NEEDED - Also available as oral liquid /es/ Paul StoreyD Clinical Pool Servicer Signed: 02/24/2024 03:32 Receipt Acknowledged By: * AWAITING SIGNATURE * JENNIFER SEGURA * AWAITING SIGNATURE * LUIS FERNANDO FONTANEZ [facility]ATHER [facility] [place] [facility]
--- OUTSIDE RECORDS SUMMARY | 2024-05-30 08:46 | XMS_ITS | Encounter Summary ---
Author Name [facility] [place] [facility] Address [address] [place] [address] Care Team Providers Care Proposal Coordinator Name Role Phone HUSEYIN LUIS FERNANDO Primary Care Provider Unavailabl e CHAPUTAMANDO Unavailable Unavailable RAIVEL, RAMIN Unavailable Unavailable FEILEN, KALYAN Unavailable Unavailable GOLD, KAMILAH Unavailable Unavailable [...] Name Patient's Relationship to Policy Steen TOMMIE ALNelly ION [id number] 1 Jun 20, 2017 [id number] [phone] EAMON OLIVIA ERT PATIENT MEDICARE (WNR) MEDICARE (M) PART A Jun 20, 2014 PART A [id number] EAMON OLIVIA ERT PATIENT MEDICARE (WNR) MEDICARE (M) PART B Jun 20, 2014 PART B [id number] EAMON OLIVIA ERT PATIENT MEDICARE (WNR) MEDICARE (M) PART A Jun 20, 2014 PART A [id number] [phone] [id number] EAMON OLIVIA ERT PATIENT MEDICARE (WNR) MEDICARE (M) PART B Jun 20, 2014 PART B [id number] [id number] EAMON OLIVIA ERT PATIENT [employer] RX PRESCRIPT ION RX Jun 20, 2023 THPRX [id number] [phone] EAMON OLIVIA ERT PATIENT [facility] RX PRESCRIPT ION RX Jun 20, 2022 THPRX [id number] [phone] EAMON OLIVIA ERT PATIENT [facility] RX PRESCRIPT ION RX Jun 20, 2022 THPRX [id number] DAVON OLIVIA JR PATIENT [facility] Jun 20, 2017 [id number] [phone] EAMON OLIVIA ERT PATIENT [facility] Jun 20, 2017 [id number] DAVON OLIVIA JR PATIENT [facility] Jun 20, 2017 [id number] DAVON OLIVIA JR PATIENT [facility] PLAN [facility] Jun 20, 2017 [id number] EAMON OLIVIA ERT PATIENT [facility] Jun 20, 2023 [id number] EAMON OLIVIA ERT PATIENT Selected Encounter This section includes the information on record at [place] for the Encounter. Date/Time Encounter Type Encounter Description Reason Pro vider Source IHE Encounter Template Text not used by [facility] Advance Directives: All historical and current Section [...] Jan 20, 2021 ADVANCE DIRECTIVE [facility]
--- OUTSIDE RECORDS SUMMARY | 2024-05-30 08:46 | XMS_ITS ---
Author Name Department of [place] Affairs ([place]) Organization Department of [facility] Affairs ([place]) Address [address] [place] [address] Care Team Providers Care Primary Care Sales Representative Name Role Phone LUIS FERNANDO FONTANEZ Primary [...] SIMS ION [id number] 1 Jun 20, 2017 [id number] [phone] EAMON OLIVIA ERT PATIENT MEDICARE (WNR) MEDICARE (M) PART A Jun 20, 2014 PART A [id number] [phone] EAMON OLIVIA ERT PATIENT MEDICARE (WNR) MEDICARE (M) PART B Jun 20, 2014 PART B [id number] [phone] EAMON OLIVIA ERT PATIENT MEDICARE (WNR) MEDICARE (M) PART A Jun 20, 2014 PART A [id number] [phone] EAMON OLIVIA ERT PATIENT MEDICARE (WNR) MEDICARE (M) PART B Jun 20, 2014 PART B [id number] EAMON OLIVIA ERT PATIENT OPTUM RX PRESCRIPT ION RX Jun 20, 2023 THPRX [id number] [phone] EAMON OLIVIA ERT PATIENT OPTUM RX PRESCRIPT ION RX Jun 20, 2022 THPRX [id number] EAMON OLIVIA ERT PATIENT OPTUM RX PRESCRIPT ION RX Jun 20, 2022 THPRX [id number] DAVON OLIVIA JR PATIENT [facility] TON MAR Jun 20, 2017 [id number] EAMON OLIVIA ERT PATIENT [facility] TON PEÑA E Jun 20, 2017 [id number] DAVON OLIVIA JR PATIENT [facility] PEÑA E Jun 20, 2017 [id number] [phone] DAVON OLIVIA JR PATIENT [facility] USP Jun 20, 2017 USP [id number] [phone] EAMON OLIVIA ERT PATIENT [facility] Jun 20, 2023 [id number] [phone] EAMON OLIVIA ERT PATIENT Selected Encounter This section includes the information on record at [place] for the Encounter. Date/Time Encounter Type Encounter Description Reason Pro vider Source Jan 23, 2024 10:00 AM Outpatient Encounter [facility] Nursing (RN / LP) IHE Encounter Template [...] E [facility] [place] [facility] Feb 14, 2024 12:30 PM AMBULATORY - [facility]HAB MEDICIN [facility] [place] [facility] Mar 15, 2024 10:00 AM AMBULATORY - REHAB MEDICIN E [facility] [place] [facility] Mar 22, 2024 08:00 AM AMBULATORY - MEDICINE [facility] [place] [facility] Mar 22, 2024 01:00 PM AMBULATORY - NONE [facility] [place] [facility] Mar 27, 2024 02:30 PM AMBULATORY - MEDICINE [facility] [place] [facility] Mar 29, 2024 11:00 AM AMBULATORY - REHAB MEDICIN E [facility] [place] [facility] Apr 12, 2024 11:00 AM AMBULATORY - REHAB MEDICIN E [facility] [place] [facility] Apr 26, 2024 09:00 AM AMBULATORY - MEDICINE [facility] [place] [facility] Apr 26, 2024 11:00 AM AMBULATORY - REHAB MEDICIN E [facility] [place] [facility] Active, Pending, and Scheduled Orders This section includes a listing of several types of active, pending, and scheduled orders, including clinic medications orders, diagnostic test orders, procedure orders and consult orders; where the start date of the order is 45 days before the date of the Encounter or 45 days after the date of theEncounter. The data comes from all [place] treatment facilities. Test Date/Time Test Type Test Details Facility Name Feb 29, 2024 07:27 AM Consult Order COMMUNITY CARE-GEC NON-SKILLED HOME HEALTH AIDE Cons Patient Portal Representative's Choice [facility] [place] [facility] Feb 29, 2024 01:44 PM Consult Order COMMUNITY CARE-SPEECH THERAPY Cons Patient Portal Representative's Choice [place] [facility] [facility] Vital Signs: All taken on the encounter date This section contains inpatient and outpatient Vital Signs collected on the date of the Encounter. Date/Time Temperature Pulse Blood Pressure Respiratory Rate SP02 Pain Height Weight Body Mass Index Source Jan 23, 2024 10:00 AM 98.6 60 100/58 18 98 0 [place] [facility] [place] [facility] Social History: Smoking Status (Most current) [...] place. Date/Time Current Smoking Status Comment Raghu cheemay Jan 19, 2023 12:24 PM VA-TOBACCO NEVER USED [facility] Tobacco Use History This section includes a history of the smoking, or tobacco-related health factors, that were collected on or before the date of the Encounter. The data comes from the [place] facility where the Encounter took place. Date/Time Smoking Status/Tobacco Use Comment F acility Jan 15, 2021 11:00 AM VA-TOBACCO NEVER USED [facility] Advance Directives: All historical and [...] Jan 20, 2021 ADVANCE DIRECTIVE BENTON ARAUZ [facility] Encounter Notes: All associated encounter notes This section contains the clinical notes associated to the Encounter. Date/Time Encounter Note(s) Provider Source Jan 23, 2024 10:00 AM NURSING FALL RISK ASSESSMENT NOTE: LOCAL TITLE: [facility] POST FALL ASSESSMENT NOTE STANDARD TITLE: NURSING FALL RISK ASSESSMENT NOTE DATE OF NOTE: JAN 23, 2024@10:00 ENTRY DATE: JAN 24, 2024@07:37:56 AUTHOR: JENNIFER SEGURA EXP COSIGNER: URGENCY: STATUS: COMPLETED [facility] FALL ASSESSMENT NOTE Date of Fall: Unknown, Spouse reported fall to RN at her home visit on 01/22 and states it happened around a week ago. Couldn't give exact date. Time of Fall: AM Civil Preparedness Training Officer: Jennifer Segura Fall was witnessed: No Description of Fall: Where: Living room How: spouse reports [place] bent over and lost his balance Injury: Yes Location: bruising to hands bilaterally Side: Left, Right Other Information Pertinent to Fall: Spouse able to get him up. Discussed with spouse using a chair alarm she declined. Level of Injury: 1 = Minor (bruises, scrapes, no increase in level of care) Symptoms Prior to Fall: none Assistive Device in Use at Time of Fall: none Contributing Factors at time of fall: gait or imbalance Environmental Factors: none Contributing diagnosis to current fall: neurological (ALS, MS, Parkinson's) If fall occurred while HC/HBPC staff was providing direct patient care in the home, report on Joint Patient Safety Reporting Site (JPSR) found on [facility] Intranet home page. No, not applicable Is patient currently receiving PT/OT services: No Pt referred to PT/OT: No Patient Declines NO Interventions: PCP Notified, [facility] PSA Notified, Interdisciplinary Care Plan Updated, Education was provided to patient and/or family regarding risk factors and prevention of future falls. Program Follow-up: Interdisciplinary Team reviews recent falls and modifies Patient's care plan as appropriate. Barber Stylist (or designee) tracks all falls, observes trends, and modifies Falls Prevention Plan as needed. Fall data is reported to [facility] Patient Glass Designer on a quarterly basis. /es/ JENNIFER SEGURA HOLE PUNCHER STRAP [facility] PROFESSOR OF LAW Signed: 01/24/2024 07:44 Receipt Acknowledged By: 01/24/2024 14:21 /es/ DANIELLE FLORES OTR/Tricia [facility] OCCUPATIONAL THERAPIST 01/24/2024 08:38 /es/ MARIAH FLORES [facility] AMSA 01/24/2024 11:38 /es/ AMANDO OHARA OFFICE MACHINE SERVICE SUPERVISOR [facility] 01/24/2024 08:41 /es/ MARIHA FLORES HB AMSA for KALYAN BARBER 01/24/2024 07:46 /es/ SPRING NEVES PT [facility] PHYSICAL THERAPIST 01/25/2024 13:11 /es/ RAMIN MENDIETA, PT, MS, ATP [facility] Physical Therapist 01/24/2024 08:16 /es/ LUIS FERNANDO DIEGOP-C [facility] NURSE PRACTITIONER [facility]
--- OUTSIDE RECORDS SUMMARY | 2024-05-30 08:47 | XMS_ITS | Encounter Summary ---
Author Name [facility] [place] Organization [place] Address [address] [place] [id number] Care Team Providers Care Bucket Chucker Name Role Phone HUSEYIN LUIS FERNANDO Primary [...] PRESCRIPT ION [id number] 1 Jun 20, 2017 [id number] EAMON OLIVIA ERT PATIENT MEDICARE (WNR) MEDICARE (M) PART A Jun 20, 2014 PART A [id number] [phone] EAMON OLIVIA ERT PATIENT MEDICARE (WNR) MEDICARE (M) PART B Jun 20, 2014 PART B [id number] EAMON OLIVIA ERT PATIENT MEDICARE (WNR) MEDICARE (M) PART A Jun 20, 2014 PART A [id number] EAMON OLIVIA ERT PATIENT MEDICARE (WNR) MEDICARE (M) PART B Jun 20, 2014 PART B [id number] EAMON OLIVIA ERT PATIENT OPTUM RX PRESCRIPT ION RX Jun 20, 2023 THPRX [id number] EAMON OLIVIA ERT PATIENT OPTUM RX PRESCRIPT ION RX Jun 20, 2022 THPRX [id number] EAMON OLIVIA ERT PATIENT OPTUM RX PRESCRIPT ION RX Jun 20, 2022 THPRX [id number] DAVON OLIVIA JR PATIENT [facility] MAR Jun 20, 2017 [id number] EAMON OLIVIA ERT PATIENT [facility] E Jun 20, 2017 [id number] [phone] DAVON OLIVIA JR PATIENT [facility] TON PEÑ[facility] E Jun 20, 2017 [id number] [phone] DAVON OLIVIA JR PATIENT [facility] USP Jun 20, 2017 USP [id number] EAMON OLIVIA ERT PATIENT [facility] Jun 20, 2023 [id number] EAMON OLIVIA ERT PATIENT Selected Encounter This section includes the information on record at [place] for the Encounter. Date/Time Encounter Type Encounter Description Reason Provider Source Jan 24, 2024 03:34 PM SLEEP STUDY UNATT&RESP EFFT SLEEP STUDY ICD-10-CM G47.33 Obstructive sleep apnea (adult) (pediatric) GARRY JO [facility] Encounter Template Text not used by [place] Assessments - Encounter Diagnoses This section includes the primary and secondary diagnoses documented for the Encounter. Date/Time Primary/Secondary Diagnosis Diagnosis Name Provider Source Jan 24, 2024 03:34 PM PRIMARY Obstructive sleep apnea (adult) (pediatric) GARRY JO [facility] Plan of Treatment: Future Appointments (+ [...] 20 appointments. The data comes from all [place] treatment facilities. Appointment Date/Time Appointment Type Appointme nt Facility Name Feb 02, 2024 03:00 PM AMBULATORY - REHAB MEDICIN E [facility] [place] [facility] Feb 14, 2024 12:30 PM AMBULATORY - REHAB MEDICIN E [facility] [place] [facility] Mar 15, 2024 10:00 AM AMBULATORY - REHAB MEDICIN E [facility] [place] [facility] Mar 22, 2024 08:00 AM AMBULATORY - MEDICINE [facility] [place] [facility] Mar 22, 2024 01:00 PM AMBULATORY - NONE [facility] [place] [facility] Mar 27, 2024 02:30 PM AMBULATORY - MEDICINE [facility] [place] [facility] Mar 29, 2024 11:00 AM AMBULATORY - REHAB MEDICIN E [facility] [place] [facility] Apr 12, 2024 11:00 AM AMBULATORY - REHAB MEDICIN E [facility] [place] [facility] Apr 26, 2024 09:00 AM AMBULATORY - MEDICINE [facility] [facility] Apr 26, 2024 11:00 AM AMBULATORY - REHAB MEDICIN E [facility] [place] [facility] Active, Pending, and Scheduled Orders This section includes a listing of several types of active, pending, and scheduled orders, including clinic medications orders, diagnostic test orders, procedure orders and consult orders; where the start date of the order is 45 days before the date of the Encounter or 45 days after the date of theEncounter. The data comes from all [place] treatment [facility]. Test Date/Time Test Type Test Details Facility Name Feb 29, 2024 07:27 AM Consult Order COMMUNITY CARE-GEC NON-SKILLED HOME HEALTH AIDE Cons Spike Machine Operator's Choice [place] [facility] [place] [facility] Feb 29, 2024 01:44 PM Consult Order COMMUNITY CARE-SPEECH THERAPY Cons Spike Machine Operator's Choice [place] [facility] [facility] Advance Directives: All historical and current Section Date Range: From patient's date of to the date document was created. This section includes ALL of a patient's completed or amended VA Advance and Rescinded Directives. The entries below indicate that a directive exists for the patient, but an actual copy is not included with this document. The data comes from all [place] facilities. Date Advance Directives Provider Source Jan 20, 2021 ADVANCE DIRECTIVE BENTON ARAUZ [facility] Encounter Notes: All associated encounter notes This section contains the clinical notes associated to the Encounter. Date/Time Encounter Note(s) Provider Source Jan 24, 2024 03:35 PM SLEEP MEDICINE MICKEY GNOSTIC STUDY REPORT: LOCAL TITLE: SLEEP STUDY RESULTS LETTER (GT) STANDARD TITLE: SLEEP MEDICINE DIAGNOSTIC STUDY REPORT DATE OF NOTE: JAN 24, 2024@15:35 ENTRY DATE: JAN 24, 2024@15:35:32 AUTHOR: TERRI JO COSIGNER: URGENCY: STATUS: COMPLETED DAVON OLIVIA [address] [place] [id number] Date:JAN 24, 2024 Dear Davon Olivia Jr, You recently had a sleep test that showed obstructive sleep apnea. We will have you follow up with your referring provider to further discuss sleep study results and treatment of sleep apnea. Thank you, Dr. Terri Jo Sleep Medicine Physician [address] [address] TERRI JO [facility] Jan 24, 2024 03:34 PM SLEEP MEDICINE CON SULT: LOCAL TITLE: Sleep Study Interpretation Consult Note STANDARD TITLE: SLEEP MEDICINE CONSULT DATE OF NOTE: JAN 24, 2024@15:34:44 ENTRY DATE: JAN 24, 2024@15:34:45 AUTHOR: TERRI JO EXP COSIGNER: URGENCY: STATUS: COMPLETED [facility] HOME SLEEP APNEA TEST - NOXT3 Study date: 01/04/2024 Name (Last, First): DAVON OLIVIA SSN: [id number] : 1950 Requesting Provider: LUIS FERNANDO FONTANEZ IMPRESSION - Mild obstructive sleep apnea (ZAC) based on an ANTONY-3% of 7.6 /hr. The supine ANTONY-3% was 6.6/hr and the non-supine ANTONY-3% was 9.8/hr. The mean oxygen saturation was 94.3% with a thalia saturation of 90.0%. RECOMMENDATIONS - 1. The study showed evidence of mild obstructive sleep apnea (ZAC). Depending on symptoms and comorbidities, treatment may be indicated. Treatment for mild sleep apnea can include weight loss, positional therapy, oral appliances and positive airway pressure therapy. - 2. Given patient comorbidities with AF-Afib and sleep symptoms with subjective report of moderate severity of daytime sleepiness (i.e [place] Sleepiness Scale of 14/22, can offer APAP 5-20 cm H20 if patient is agreeable. If started on APAP, clinical follow-up as well as follow-up of download data is necessary to ensure efficacy and compliance with this treatment modality. - 3. Since this [place] receives his care at [facility] system, ordering of the CPAP unit will be through the referring [place] provider. Follow up can occur in [place]. - 4. Patient can also be seen in sleep clinic for guidance of treatment of ZAC.Patient can be seen in sleep clinic at the Clinical Video Telehealth (CVT) sleep study clinic at [facility] or at [facility] in [place]. Please place the the sleep clinic consult if is to be seen. - 5. Patient should avoid sleeping in supine position. - 6. The patient should be instructed to avoid driving and not engage in operating heavy machinery equipment when sleepy, drowsy or fatigued. - 7. A copy of this report will be forwarded to the referring provider. - 8. The will receive a letter with the summary of sleep study results. STUDY TECHNIQUE AND DEFINITIONS This home sleep apnea test was performed using an unattended type 3 portable monitor with at least 4 recorded channels including airflow, dual thoracoabdominal respiratory effort belts (with RIP), oximetry, pulse rate, actigraphy, body position, and snore sensor. Study was scored and interpreted based on AASM guidelines. PATIENT HISTORY Indication for study: Evaluate for sleep apnea 73 year old Male with BMI of 28 (weight 167 lbs, height 65 inches) ESS: 14 Sleep Symptoms: Snoring, Witnessed apnea, Excessive daytime sleepiness Active Problem List: - Basal cell carcinoma of skin (SCT [id number]) - Squamous cell carcinoma of skin ([facility] [id number]) - Sundowning ([facility] [id number]) - Parkinson's disease ([facility] [id number]) - Parkinsonism ([facility] [id number]) - Migraine ([facility] [id number]) - Insomnia ([facility] [id number]) - REM sleep behavior disorder ([facility] [id number]) - AF- Atrial Fibrillation ([facility] [id number]) - Atrial flutter ([facility] [id number]) - Peripheral vascular disease ([facility] [id number]) - Hypotension ([facility] [id number]) - Gingivitis ([facility] [id number]) - Gastroesophageal reflux disease ([facility] [id number]) - Diverticular disease of colon ([facility] [id number]) - Constipation ([facility] [id number]) - Internal hemorrhoids ([facility] [id number]) - Dupuytren's contracture ([facility] [id number]) - Kidney Stone ([facility] [id number]) - Benign prostatic hyperplasia ([facility] [id number]) - Hematuria ([facility] [id number]) - Urinary incontinence ([facility] [id number]) - Memory loss ([facility] [id number]) - Under care of multiple providers ([facility] [id number]) - Solitary nodule of lung ([facility] [id number]) - Exposure to potentially hazardous substance ([facility] [id number]) - Long-term current use of anticoagulant ([facility] [id number]) - History of deep vein thrombosis ([facility] [id number]) Medication(s): CHLORHEXIDINE GLUCONATE 0.12% MOUTHWASH, DIAPER ADULT LARGE EXTRA ABSORBENT, GLYCOPYRROLATE 2MG TAB, HYDROPHILIC (EQV EUCERIN) TOP CREAM, INCONT LINER PREVAIL GUARDS #[id number], INCONTINENCE WRAP,MALE, MEMANTINE HCL 10MG TAB, MIDODRINE HCL 5MG TAB, OATMEAL,COLLOIDAL CLEANSING BAR/DRY SKIN, ORAL,SWAB TOOTHETTE, POLYETHYLENE GLYCOL 3350 ORAL PWDR, UNDERPAD,BED ULTRASORB [id number] M#[id number], DOCUSATE NA CAP,ORAL, LORAZEPAM TAB Night 1 (2024-01-04): Total monitoring time (MT)*: 563.5 minutes Recording start time: 11:20 PM Recording stop time: 9:20 AM Total recording Time (TRT)*: 600.0 minutes STUDY DETAILS Signal Quality: Oximeter: 99.9%, Nasal cannula: 80.6%, Thorax: 100.0%, Abdomen: 100.0% RESPIRATORY PARAMETERS ANTONY-3% was 7.6 /hr ANTONY-4% was 3.2 /hr Hypopnea index was 6.9 /hr* Obstructive Apnea Index was 0.4 /hr* Central Apnea Index was 0.2 /hr* Mixed Apnea Index was 0.0 /hr* *For percentage of total, see scored report in [employer]. Breakdown of total respiratory events: 65 hypopneas (3% rule), 4 obstructive apneas, 0 mixed apneas, and 2 central apneas. Supine ANTONY-3% was 6.6 /hr (in 391.4 minutes) Non-supine ANTONY-3% was 9.8 /hr (in 172.1 minutes) Patient snored for 16 minutes during the study. BODY POSITION Supine sleep was 391.4 minutes (69.4% of MT) Non-supine sleep was 172.1 minutes (30.5% of MT) *For breakdown of non-supine data see scored report in [employer]. OXIMETRY TASHIA-3% was 7.2 /hr TASHIA-4% was 2.7 /hr Mean oxygen saturation was 94.3% Lowest oxygen saturation was 90.0% Average desaturation drop was 3.5% Average low desaturation was 92.5% Saturations < 90%: 0 minutes (0.0% of MT) Saturations <= 88%: 0 minutes (0.0% of MT) Saturations < 85%: 0 minutes (0.0% of MT) Saturations <80%: 0 minutes (0.0% of MT) HEART RATE STATISTICS (BPM) Mean: 60.3; Min: 50.0; Max: 75.0 Data Definitions *Monitoring time (MT): Estimated total sleep time calculated as total recording time minus periods of artifact and time the patient was determined to be awake as determined by actigraphy, body position sensor, and/or respiratory pattern by biological lab technician or interpreting provider. Movement time greater than 15 seconds and upright time are automatically excluded from monitoring time. Upright angle is >53.13 degrees, unless manually adjusted based on history of patient (recliner, head of bed elevation, etc). All respiratory parameters are calculated using MT. *Total Recording Time (TRT): Total time from when the recorder was turned on to when the recorder was turned off, in minutes. * Excluded Data: Epochs marked as Invalid Data will be excluded from the report calculations. * Movement Time: Epochs determined to be Movement Time (greater than 15 seconds) are estimated as wake and are excluded from the ANTONY calculation * Respiratory Event Index (ANTONY): Total number of respiratory events x60 divided by monitoring time. ANTONY is a surrogate for Apnea Hypopnea Index (AHI). *Oxygen Desaturation Index (TASHIA): Total number of desaturation events x60 divided by monitoring time Position changes when at least 5 seconds of continuous position is found. The minimum upright position is at 53.13 angle. Movement is detected when the activity signal exceeds a threshold of 0.2 for a minimum of 1 second(s). Apneas are scored where there is a 90% drop in the Flow signal between 10 and 120 seconds. Hypopneas are scored where there is a 30% drop in the Flow signal between 10 and 120 seconds followed by either a drop in saturation of at least 3%, or an arousal. A tachycardia is added when the heart rate exceeds 90bpm for at least 30 seconds. Bradycardia is scored when the heart rate falls below 40bpm for at least 30 seconds. Limb movements are detected when EMG amplitude is above 5 times background activity for at least 0.5 seconds, but no more than 10 seconds. PLMs are detected when at least 4 limb movements occur within a minimum interval of 5 seconds and a maximum interval 90 seconds. An ECG artifact filter is applied to the leg EMG signals. LMs from all channels are combined into one PLM score. LMs are not scored if they start 0.5 seconds before an apnea, hypopnea or a RERA, or 0.5 seconds following the event. LMs are not scored if they start during movement. LMs are not scored if they start during periods of wake. Desaturations are marked when the SpO2 values drop by at least 3% for a minimum duration of 3 seconds with a plateau of no more than 45 seconds. /sharron/ TERRI JO MD ATTENDING Signed: 01/24/2024 15:34 TERRI JO [facility]
--- OUTSIDE RECORDS SUMMARY | 2024-05-30 08:47 | XMS_ITS | Encounter Summary ---
Author Name [facility] [place] Address [address] [place] [address] Care Team Providers Care Healthcare Administrative Assistant Name Role Phone LUIS FERNANDO FONTANEZ Primary [...] ALT ION [id number] 1 Jun 20, 2017 [id number] EAMON OLIVIA ERT PATIENT MEDICARE (WNR) MEDICARE (M) PART A Jun 20, 2014 PART A [id number] [phone] EAMON OLIVIA ERT PATIENT MEDICARE (WNR) MEDICARE (M) PART B Jun 20, 2014 PART B [id number] [phone] EAMON OLIVIA ERT PATIENT MEDICARE (WNR) MEDICARE (M) PART A Jun 20, 2014 PART A [id number] EAMON OLIVIA ERT PATIENT MEDICARE (WNR) MEDICARE (M) PART B Jun 20, 2014 PART B [id number] [facility] EAMON OLIVIA ERT PATIENT OPTUM RX PRESCRIPT ION RX Jun 20, 2023 THPRX [id number] [phone] EAMON OLIVIA ERT PATIENT OPTUM RX PRESCRIPT ION RX Jun 20, 2022 THPRX [id number] EAMON OLIVIA ERT PATIENT OPTUM RX PRESCRIPT ION RX Jun 20, 2022 THPRX [id number] [phone] DAVON OLIVIA JR PATIENT [facility] [place] Jun 20, 2017 [id number] [phone] EAMON OLIVIA ERT PATIENT ON LICENSE OF [facility] E Jun 20, 2017 [id number] DAVON OLIVIA JR PATIENT [facility] PE[facility] E Jun 20, 2017 [id number] DAVON OLIVIA JR PATIENT ON LICENSE OF [facility] USP Jun 20, 2017 [facility] [id number] [phone] EAMON OLIVIA ERT PATIENT [facility] Jun 20, 2023 [id number] EAMON OLIVIA ERT PATIENT Selected Encounter This section includes the information on record at [place] for the Encounter. Date/Time Encounter Type Encounter Description Reason Provider Source Feb 10, 2024 10:45 AM [facility]-SERV OF PT,EA 15 MIN [facility] - THERAPIST ICD-10-CM G20.C Parkinsonism, unspecified RAIVEL,RAMIN IHE Encounter Template Text not used by CT Assessments - Encounter Diagnoses This section includes the primary and secondary diagnoses documented for the Encounter. Date/Time Primary/Secondary Diagnosis Diagnosis Name Provider Source Feb 14, 2024 09:47 AM PRIMARY Parkinsonism, unspecified RAIVEL,RAMIN [facility] [place] [facility] Plan [...] 20 appointments. The data comes from all [facility]. Appointment Date/Time Appointment Type Appointme nt Facility Name Feb 14, 2024 12:30 PM AMBULATORY - [facility] MEDICIN E [facility] [place] [facility] Mar 15, 2024 10:00 AM AMBULATORY - REHAB MEDICIN E [facility] [place] [facility] Mar 22, 2024 08:00 AM AMBULATORY - MEDICINE [facility] [place] [facility] Mar 22, 2024 01:00 PM AMBULATORY - NONE [facility] [place] [facility] Mar 27, 2024 02:30 PM AMBULATORY - MEDICINE CT C [facility] [place] [facility] Mar 29, 2024 11:00 AM AMBULATORY - REHAB MEDICIN E [facility] [place] [facility] Apr 12, 2024 11:00 AM AMBULATORY - REHAB MEDICIN E [facility] [place] [facility] Apr 26, 2024 09:00 AM AMBULATORY - MEDICINE [facility] C [facility] [place] [facility] Apr 26, 2024 11:00 AM AMBULATORY - REHAB MEDICIN E [facility] [place] [facility] Active, Pending, and Scheduled Orders This section includes a listing of several types of active, pending, and scheduled orders, including clinic medications orders, diagnostic test orders, procedure orders and consult orders; where the start date of the order is 45 days before the date of the Encounter or 45 days after the date of theEncounter. The data comes from all [facility]. Test Date/Time Test Type Test Details Facility Name Feb 29, 2024 07:27 AM Consult Order COMMUNITY CARE-GEC NON-SKILLED HOME HEALTH AIDE Cons Executive Steward's Choice [facility] [place] [facility] Feb 29, 2024 01:44 PM Consult Order COMMUNITY CARE-SPEECH THERAPY Cons Executive Steward's Choice [facility] [place] [facility] Social History: [...] 19, 2023 12:24 PM VA-TOBACCO NEVER USED [facility] Tobacco Use History This section includes a history of the smoking, or tobacco-related health factors, that were collected on or before the date of the Encounter. The data comes from the [place] facility where the Encounter took place. Date/Time Smoking Status/Tobacco Use Comment F acneri Jan 15, 2021 11:00 AM VA-TOBACCO NEVER USED [facility] Advance Directives: All historical and [...] 20, 2021 ADVANCE DIRECTIVE BENTON ARAUZ [facility] Encounter Notes: All associated encounter notes This section contains the clinical notes associated to the Encounter. Date/Time Encounter Note(s) Provider Source Feb 10, 2024 10:45 AM [facility] NOTE: LOCAL TITLE: [facility] PHYSICAL THERAPY NOTE STANDARD TITLE: [facility] NOTE DATE OF NOTE: FEB 10, 2024@10:45 ENTRY DATE: FEB 14, 2024@09:46:25 AUTHOR: RAMIN MENDIETAIGNER: URGENCY: STATUS: COMPLETED Physical Therapy Note Date: 02/10/24 Time: 10:45 am Diagnosis: parkinsonism, unspecified Treatment Diagnosis: As above, plus Active problems - Computerized Problem List is the source for the followin. Obstructive sleep apnea 2. Nephrolithiasis 3. Excessive salivation 4. HTN - Hypertension ([facility] [id number]) 5. Constipation 6. Under care of multiple providers 7. Exposure to potentially hazardous substance 8. Long-term current use of anticoagulant 9. Gingivitis 10. Parkinsonism 11. Squamous cell carcinoma of skin 12. Basal cell carcinoma of skin 13. Hypotension 14. Benign prostatic hyperplasia 15. Hematuria 16. Diverticular disease of colon 17. Internal hemorrhoids 18. REM sleep behavior disorder 19. Peripheral vascular disease 20. Migraine 21. Solitary nodule of lung 22. Dupuytren's contracture 23. Multiple renal cysts 24. Atrial flutter 25. History of deep vein thrombosis 26. Memory loss 27. Sundowning 28. Urinary incontinence 29. Insomnia 30. Gastroesophageal reflux disease 31. AF- Atrial Fibrillation ([facility] [id number]) 32. Parkinson's disease 33. Kidney Stone ([facility] [id number]) Patient identified by facial recognition and address SUBJECTIVE: per spouse, new Michael Lift isn't moving downwards OBJECTIVE: PAIN: Prior to treatment - none After treatment - none If > 3/10, intervention - If > 3/10, provider notified - VITAL SIGNS: deferred FALLS: patient denies any recent falls TREATMENT: PT in the Home - assessed new Michael Lift, checked all connections, battery strength, tried to lower boom using emergency release, but boom would not lower. It appears to be stuck internally in the actuator. ASSESSMENT: Patient is a 73 year old with parkinsonism unspecified whose new Michael Lift is not lowering. Placed consult for a STAT repair. Follow up as required. WHOLE HEALTH WHOLE HEALTH EDUCATION Whole Health Education was provided. COACHING SKILLS Coaching or Motivational Interviewing skills used. VISIT INFORMATION Met with individual: In-person Length of Visit: 15 minutes PLAN Individual agreed to follow-up: In-person visit Follow-up will occur: as required /es/ RAMIN MENDIETA, PT, MS, ATP [facility] Physical Therapist Signed: 02/14/2024 09:53 RAMIN MENDIETA [facility] [place] [facility]
--- OUTSIDE RECORDS SUMMARY | 2024-05-30 08:47 | XMS_ITS | Encounter Summary ---
Author Name [place] Organization [place] Address [address] [place] [id number] Care Team Providers Care Box Liner Name Role Phone HUSEYIN LUIS FERNANDO Primary Care Provider Unavailabl e CHAPAMANDO TRACEY Unavailable Unavailable RAIVETricia, RAMIN Unavailable Unavailable FEILEN, KALYAN Unavailable Unavailable GOLD, DAMANIVAL Unavailable Unavailable [...] PRESCRIPT ION [id number] 1 Jun 20, 2017 [id number] EAMON OLIVIA ERT PATIENT MEDICARE (WNR) MEDICARE (M) PART A Jun 20, 2014 PART A [id number] [phone] EAMON OLIVIA ERT PATIENT MEDICARE (WNR) MEDICARE (M) PART B Jun 20, 2014 PART B [id number] [phone] EAMON OLIVIA ERT PATIENT MEDICARE (WNR) MEDICARE (M) PART A Jun 20, 2014 PART A [id number] EAMON OLIVIA ERT PATIENT MEDICARE (WNR) MEDICARE (M) PART B Jun 20, 2014 PART B [id number] EAMON OLIVIA ERT PATIENT OPTUM RX PRESCRIPT ION RX Jun 20, 2023 THPRX [id number] EAMON OLIVIA ERT PATIENT OPTUM RX PRESCRIPT ION RX Jun 20, 2022 THPRX [id number] [phone] EAMON OLIVIA ERT PATIENT OPTUM RX PRESCRIPT ION RX Jun 20, 2022 THPRX [id number] DAVON OLIVIA JR PATIENT [facility] TON MAR Jun 20, 2017 [id number] EAMON OLIVIA ERT PATIENT [facility] TON MARIANA E Jun 20, 2017 [id number] DAVON OLIVIA JR PATIENT [facility] E Jun 20, 2017 [id number] DAVON OLIVIA JR PATIENT [facility] USP Jun 20, 2017 [id number] [id number] [phone] EAMON OLIVIA ERT PATIENT [facility] Jun 20, 2023 [id number] EAMON OLIVIA ERT PATIENT Selected Encounter This section includes the information on record at [place] for the Encounter. Date/Time Encounter Type Encounter Description Reason Provider Source Feb 14, 2024 12:30 PM EVALUATE SWALLOWING FUNCTION SPEECH-LANGUAGE PATHOLOGY ICD-10-CM R13.12 Dysphagia, oropharyngeal phase CARMELO WESTFALL [facility] Encounter Template Text not used by [place] Assessments - Encounter Diagnoses This section includes the primary and secondary diagnoses documented for the Encounter. Date/Time Primary/Secondary Diagnosis Diagnosis Name Provider Source Feb 14, 2024 01:03 PM PRIMARY Dysphagia, oropharyngeal phase CARMELO WESTFALL [facility] [place] [facility] Plan of Treatment: Future [...] 20 appointments. The data comes from all [facility]. Appointment Date/Time Appointment Type Appointme nt Facility Name Mar 15, 2024 10:00 AM AMBULATORY - REHAB MEDICIN E [facility] [place] [facility] Mar 22, 2024 08:00 AM AMBULATORY - MEDICINE [facility] [place] [facility] Mar 22, 2024 01:00 PM AMBULATORY - NONE [facility] [place] [facility] Mar 27, 2024 02:30 PM AMBULATORY - MEDICINE [facility] C [facility] [place] [facility] Mar 29, 2024 11:00 AM AMBULATORY - REHAB MEDICIN E [facility] [place] [facility] Apr 12, 2024 11:00 AM AMBULATORY - REHAB MEDICIN E [facility] [place] [facility] Apr 26, 2024 09:00 AM AMBULATORY - MEDICINE [place] C [facility] [place] [facility] Apr 26, 2024 11:00 AM [facility] Active, Pending, and Scheduled Orders This section includes a listing of several types of active, pending, and scheduled orders, including clinic medications orders, diagnostic test orders, procedure orders and consult orders; where the start date of the order is 45 days before the date of the Encounter or 45 days after the date of theEncounter. The data comes from all [facility]. Test Date/Time Test Type Test Details Facility Name Feb 29, 2024 07:27 AM Consult Order COMMUNITY CARE-GEC NON-SKILLED HOME HEALTH AIDE Cons Rug Drying Machine Operator's Choice [facility] Feb 29, 2024 01:44 PM Consult Order COMMUNITY CARE-SPEECH THERAPY Cons Rug Drying Machine Operator's Choice [facility] Social History: Smoking Status (Most current) and [...] 19, 2023 12:24 PM VA-TOBACCO NEVER USED [facility] Tobacco Use History This section includes a history of the smoking, or tobacco-related health factors, that were collected on or before the date of the Encounter. The data comes from the [place] facility where the Encounter took place. Date/Time Smoking Status/Tobacco Use Comment F acility Jan 15, 2021 11:00 AM VA-TOBACCO NEVER USED [facility] Advance Directives: All historical and current [...] Jan 20, 2021 ADVANCE DIRECTIVE BENTON ARAUZ [facility] Encounter Notes: All associated encounter notes This section contains the clinical notes associated to the Encounter. Date/Time Encounter Note(s) Provider Source Feb 14, 2024 12:52 PM SPEECH PATHOLOGY C ONSULT: LOCAL TITLE: CONSULT REPORT/SPEECH/SWALLOWING STANDARD TITLE: SPEECH PATHOLOGY CONSULT DATE OF NOTE: FEB 14, 2024@12:52 ENTRY DATE: FEB 14, 2024@12:53:35 AUTHOR: AMARIS WESTFALL COSIGNER: LUIS FERNANDO FONTANEZ URGENCY: STATUS: COMPLETED S: . is seen today for a modified clinical evaluation of dysphagia (KRISTEN) via C. This assessment is subjective and cannot determine or r/o the presence of aspiration. Glendora is a 73-year-old male with a history of Parkinson's disease. Consult initiated for concerns related to swallowing pills. Active problems - Computerized Problem List is the source for the followin. Obstructive sleep apnea 2. Nephrolithiasis 3. Excessive salivation 4. HTN - Hypertension ([facility] [id number]) 5. Constipation 6. Under care of multiple [...] Gastroesophageal reflux disease 31. AF- Atrial Fibrillation ([facility] [id number]) 32. Parkinson's disease 33. Kidney Stone ([facility] [id number]) Progress notes reviewed. Encounter time - 60 minutes O:The following was addressed during this encounter: //'S PERCEPTION OF THE PROBLEM - reports challenges with swallowing pills. //MODIFIED ORAL MOTOR EXAM - An oral motor speech exam revealed the structures and functions of veterans speech mechanism to be within normal limits. All targets are reached. Voluntary cough and glottal coup are WNL. //3OZ WATER TEST ([facility]va Dysphagia. 2008 Feb;23(3):244-50) The 3-oz water swallow test is a sensitive screening tool for identifying veterans at risk for clinically significant aspiration. Failed - needed no assistance with the cup and consumed all the water at once. Coughing following the swallow was appreciated. //EDUCATION - 1. . was educated on the importance of eating behavior to a safe swallow and encouraged to slow rate, take smaller sips/bites, chew solids well, and take pills in applesauce. 2. The modified barium swallow study (MBSS) was recommended and explained. The risks and benefits of the procedure were discussed. verbalized understanding and agreed to the procedure. A: Glendora. with Parkinson's Disease with recent concerns re: swallowing. Dysphagia is a common symptom of PD. Will need an MBSS to objectively assess the oral and pharyngeal stage of the swallow. P: RTC 03/15/24 @ 1000 via [facility] /sharron/ AMARIS WESTFALL M.S.,CCC-RELIGIOUS ACTIVITIES DIRECTOR SPEECH-LANGUAGE PATHOLOGIST Signed: 02/21/2024 19:14 /sharron/ LUIS FERNANDO HICKEY-C [facility] NURSE PRACTITIONER Cosigned: 02/25/2024 11:46 Receipt Acknowledged By: 02/27/2024 15:59 /sharron/ EBONY ZIMMERMAN ADVANCED SENIOR ENGINEERING TECHNICIAN AMARIS WESTFALL [facility]
--- OUTSIDE RECORDS SUMMARY | 2024-05-30 08:48 | XMS_ITS | Encounter Summary ---
Author Name [facility] [place] Organization [facility] [place] [place] Address [address] [place] [id number] Care Team Providers Care Patient Services Rep Name Role Phone HUSEYIN LUIS FERNANDO Primary [...] PRESCRIPT ION [id number] 1 Jun 20, 2017 [id number] [phone] EAMON OLIVIA ERT PATIENT MEDICARE (WNR) MEDICARE (M) PART A Jun 20, 2014 PART A [id number] EAMON OLIVIA ERT PATIENT MEDICARE (WNR) MEDICARE (M) PART B Jun 20, 2014 PART B [id number] EAMON OLIVIA ERT PATIENT MEDICARE (WNR) MEDICARE (M) PART A Jun 20, 2014 PART A [id number] [phone] EAMON OLIVIA ERT PATIENT MEDICARE (WNR) MEDICARE (M) PART B Jun 20, 2014 PART B [id number] EAMON OLIVIA ERT PATIENT OPTUM RX PRESCRIPT ION RX Jun 20, 2023 THPRX [id number] EAMON OLIVIA ERT PATIENT [facility] RX PRESCRIPT ION RX Jun 20, 2022 THPRX [id number] EAMON OLIVIA ERT PATIENT [facility] RX PRESCRIPT ION RX Jun 20, 2022 THPRX [id number] DAVON OLIVIA JR PATIENT [facility] TON MAR Jun 20, 2017 [id number] EAMON OLIVIA ERT PATIENT [facility] TON PEÑA E Jun 20, 2017 [id number] [phone] DAVON OLIVIA JR PATIENT [facility] TON PEÑA E Jun 20, 2017 [id number] DAVON OLIVIA JR [facility]IENT [facility] Jun 20, 2017 USP [id number] EAMON OLIVIA ERT PATIENT [facility] Jun 20, 2023 [id number] EAMON OLIVIA ERT PATIENT Selected Encounter This section includes the information on record at [place] for the Encounter. Date/Time Encounter Type Encounter Description Reason Pro vider Source Feb 28, 2024 10:31 AM Outpatient Encounter [facility] ASSESSMENT IHE Encounter Template Text not used by [place] Plan of Treatment: Future Appointments (+ 6 months) and Future Tests (+/- 45 days) The Plan of Treatment section includes future care activities for the patient from all [place] treatmentfacilities. This section includes future appointments and future orders which are active, pending or scheduled. Future Appointments This section includes appointments that were scheduled to occur 6 months from the date of the Encounter, up to a maximum of 20 appointments. The data comes from all [place] treatment facilities. Appointment Date/Time Appointment Type Appointme nt Facility Name Mar 15, 2024 10:00 AM AMBULATORY - [facility]IC[facility] [place] [facility] Mar 22, 2024 08:00 AM AM[facility]ULATORY [facility] MEDICINE [facility] [place] [facility] Mar 22, 2024 01:00 PM AMBULATORY - NONE [facility] [place] [facility] Mar 27, 2024 02:30 PM AM[facility]ULATORY [facility] MEDICINE [facility] [place] [facility] Mar 29, 2024 11:00 AM AMBULATORY - [facility]AB MEDICIN [facility] [place] [facility] Apr 12, 2024 11:00 AM AMBULATORY - [facility]AB MEDICIN [facility] [place] [facility] Apr 26, 2024 09:00 AM AM[facility]ATORY [facility] MEDIC[facility] [place] [facility] Apr 26, 2024 11:00 AM AMBULATORY - [facility]AB MEDICIN [facility] [place] [facility] Active, Pending, and Scheduled Orders This section includes a listing of several types of active, pending, and scheduled orders, including clinic medications orders, diagnostic test orders, procedure orders and consult orders; where the start date of the order is 45 days before the date of the Encounter or 45 days after the date of theEncounter. The data comes from all [place] treatment facilities. Test Date/Time Test Type Test Details Facility Name Feb 29, 2024 07:27 AM Consult Order [facility] NON-SKILLED HOME HEALTH AIDE Cons [employer] [facility] [place] [facility] Feb 29, 2024 01:44 PM Consult Order [facility] [employer] [facility] [place] [facility] Apr 05, 2024 12:00 AM Laboratory - Chemi stry Order CBC AND DIFF (AUTO) BLOOD (LAV-BLOOD) SP [facility] [place] [facility] Apr 05, 2024 12:00 AM Laboratory - Chemi stry Order IRON & TIBC PANEL BLOOD (SST-SERUM) SP [facility] [place] [facility] Apr 05, 2024 12:00 AM Laboratory - Chemi stry Order FERRITIN BLOOD (SST-SERUM) [facility] [place] [facility] Apr 05, 2024 12:00 AM Laboratory - Chemi stry Order BASIC METABOLIC PANEL (non-fasting) BLOOD (SST-SERUM) SP [facility] [place] [facility] Apr 05, 2024 12:00 AM Laboratory - Chemi stry Order OCCULT BLOOD FIT X1 SCREEN(IN-HOUSE) STOOL FECES SP [facility] Apr 05, 2024 09:28 AM Consult Order [facility] Cons [employer] [facility] Lab Results: +/- 30 days of the encounter This section includes the Chemistry and Hematology Lab Results on record with [place] for the patient. Radiology Reports and Pathology Reports are provided separately, in subsequent sections. Lab Results This section contains the Chemistry/Hematology Results that were resulted 30 days before or 30 daysafter the date of the Encounter. Date/Time Source Result Type Result - Unit Interpretation Reference Range Comment Mar 28, 2024 12:30 PM [facility] LIVER FUNCTION Specimen Type: SERUM No comment entered. Ordering Provider: LUIS FERNANDO FONTANEZ Report Released Date/Time: Dec 28, 2023 07:18 AM Reporting Lab: [address] [id number] Performing Lab: [address] [address] PROTEIN,TOTAL 6.0 g/dL 6.0-8.3 ALBUMIN 3.2 g/dL L 3.5-5.0 ALKALINE PHOSPHATASE 72 U/L 40-150 AST 21 U/L 5-34 ALT <6 U/L BILIRUBIN, TOTAL 0.4 mg/dL 0.2-1.2 Mar 28, 2024 12:30 PM [facility] BASIC METABOLIC PANEL (non-fasting) Specimen Type: SERUM No comment entered. Ordering Provider: LUIS FERNANDO FONTANEZ Report Released Date/Time: Dec 28, 2023 07:18 AM Reporting Lab: [address] [address] Performing Lab: [address] [address] UREA NITROGEN 21 mg/dL 7-25 GLUCOSE 98 mg/dL 65-100 SODIUM 139 mmol/L 135-145 POTASSIUM 3.4 mmol/L L 3.5-5.0 CHLORIDE 102 mmol/L 100-110 CO2 27 meq/L 20-30 CREATININE, Serum 0.88 mg/dL 0.50-1.40 eGFR(CKD-EPI 2020) 90 mL/min >60 Mar 28, 2024 12:30 PM [facility] CBC AND DIFF (AUTO) Specimen Type: BLOOD No comment entered. Ordering Provider: LUIS FERNANDO FONTANEZ Report Released Date/Time: Dec 28, 2023 07:18 AM Reporting Lab: [facility] [address] [address] Performing Lab: [facility] [address] [address] WBC 9.03 10*3/uL 4.50-11.00 RBC 4.16 10*6/uL L 4.23-5.66 HGB 12.1 g/dL L 12.8-17 HCT 37.7 L 39.2-50.4 MCV 90.6 fL 82-99 MCHC 32.1 g/dL 30.8-35.1 PLT 279 10*3/uL 140-360 RDW-CV 13.3 12.0-16.0 MONO, ABS 0.67 10*3/uL 0.30-1.10 MCH 29.1 pg 26.2-32.6 NEUT % 63.2 43.7-75.8 LYMPH % 26.9 14.0-42.3 MONO % 7.4 5.1-13.7 EOS % 1.7 0.4-6.8 BASO % 0.4 0.1-2.0 NEUT, ABS 5.70 10*3/uL 2.20-7.60 LYMPH, ABS 2.43 10*3/uL 1.00-3.20 EOS, ABS 0.15 10*3/uL 0.03-0.44 BASO, ABS 0.04 10*3/uL 0.01-0.13 IMMATURE GRAN % 0.4 0.0-0.7 IMMATURE GRAN, ABS 0.04 10*3/uL 0.00-0.06 NRBC % 0.0 0.0-0.0 NRBC, ABS 0.00 10*3/uL 0.00-0.00 Vital Signs: All taken on the encounter date This section contains inpatient and outpatient Vital Signs collected on the date of the Encounter. Date/Time Temperature Pulse Blood Pressure Respiratory Rate SP02 Pain Height Weight Body Mass Index Source Feb 28, 2024 10:20 AM 97.2 54 101/78 16 96 0 [facility] [employer] [facility] [employer] [facility] Social History: Smoking Status (Most current) and Tobacco Use (All prior to encounter date) This section includes the most current, and the historical, smoking and tobacco- related health factors from the [place] facility where the Encounter took place. Current Smoking Status This section includes the most current smoking, or tobacco-related health factor, from the [place] facility where the Encounter took place. Date/Time Current Smoking Status Comment Facil ity Jan 19, 2023 12:24 PM VA-TOBACCO NEVER USED [place] [employer] [facility] [employer] TechnologiesGRADY [facility] CHICKASHAMollyWatr [facility] Tobacco Use History This section includes a history of the smoking, or tobacco-related health factors, that were collected on or before the date of the Encounter. The data comes from the [place] facility where the Encounter took place. Date/Time Smoking Status/Tobacco Use Comment F acility Jan 15, 2021 11:00 AM VA-TOBACCO NEVER USED [facility] Advance Directives: All historical and current Section Date Range: From patient's date of to the date document was created. This section includes ALL of a patient's completed or amended [place] Advance and Rescinded Directives. The entries below indicate that a directive exists for the patient, but an actual copy is not included with this document. The data comes from all [place] facilities. Date Advance Directives Provider Source Jan 20, 2021 ADVANCE DIRECTIVE BENTON ARAUZ [facility] Encounter Notes: All associated encounter notes This section contains the clinical notes associated to the Encounter. Date/Time Encounter Note(s) Provider Source Feb 28, 2024 10:37 AM SOCIAL WORK NOTE: LOCAL TITLE: PERSONAL CARE SERVICES REVIEW STANDARD TITLE: SOCIAL WORK NOTE DATE OF NOTE: FEB 28, 2024@10:37 ENTRY DATE: FEB 28, 2024@10:37:57 AUTHOR: DESMOND TOUSSAINT COSIGNER: URGENCY: STATUS: COMPLETED Personal Care Services Review Type of review: 180 Day Information to complete oversight obtained from: Community vendor staff Specify Contact: Trav Community vendor Name: [facility] Community vendor point of contact Name: Trav The care plan has been reviewed. Care rendered as authorized. meets administrative eligibility criteria. [place] meets clinical eligibility criteria. Case Mix Tool: Date Completed: Feb Case Mix Score: J First range of hours to be used. Plan: Authorization(s) to remain the same Homemaker/Home Health Aide Standardized Episode of Care (SEOC) SEOC duration: 365 days Hours per SEOC duration: 16 hrs wktim /sharron/ OLEG JOAQUIN [employer] C[employer]ER Signed: 02/28/2024 10:38 DESMOND TOUSSAINT [place] [facility]
--- OUTSIDE RECORDS SUMMARY | 2024-05-30 08:48 | XMS_ITS ---
Author Name Department of Vetera Affairs ([place]) Organization [facility] Address [address] [place] [id number] Care Team Providers Care Workforce Investment Act Career Manager Name Role Phone HUSEYIN LUIS FERNANDO [...] SIMS ION [id number] 1 Jun 20, 2017 [id number] EAMON OLIVIA ERT PATIENT MEDICARE (WNR) MEDICARE (M) PART A Jun 20, 2014 PART A [id number] [phone] EAMON OLIVIA ERT PATIENT MEDICARE (WNR) MEDICARE (M) PART B Jun 20, 2014 PART B [id number] [phone] EAMON OLIVIA ERT PATIENT MEDICARE (WNR) MEDICARE (M) PART A Jun 20, 2014 PART A [id number] [phone] EAMON OLIVIA ERT PATIENT MEDICARE (WNR) MEDICARE (M) PART B Jun 20, 2014 PART B [id number] EAMON OLIVIA ERT PATIENT [employer]UM RX PRESCRIPT ION RX Jun 20, 2023 THPRX [id number] EAMON OLIVIA ERT PATIENT [employer] RX PRESCRIPT ION RX Jun 20, 2022 THPRX [id number] EAMON OLIVIA ERT PATIENT [facility] RX PRESCRIPT ION RX Jun 20, 2022 THPRX [id number] DAVON OLIVIA JR PATIENT [facility] Jun 20, 2017 [id number] EAMON OLIVIA ERT [facility] Jun 20, 2017 [id number] DAVON OLIVIA JR [facility] Jun 20, 2017 [id number] DAVON OLIVIA JR PATIENT [facility] Jun 20, 2017 USP [id number] EAMON OLIVIA ERT PATIENT [facility] Jun 20, 2023 [id number] EAMON OLIVIA ERT PATIENT Selected Encounter This section includes the information on record at [place] for the Encounter. Date/Time Encounter Type Encounter Description Reason Provider Source Feb 28, 2024 09:50 AM SELF CARE MNGMENT TRAINING [facility] Nursing (RN / LP) ICD-10-CM I10 Essential (primary) hypertension RISING,HEATHE R L E Encounter Template Text not used by [place] Assessments - Encounter Diagnoses This section includes the primary and secondary diagnoses documented for the Encounter. Date/Time Primary/Secondary Diagnosis Diagnosis Name Provider Source Feb 28, 2024 03:06 PM PRIMARY Essential (primary) hypertension RISING,HEATHE R L [facility] [place] [facility] Feb 28, 2024 03:06 PM SECONDARY Calculus of kidney RISING,HEATHE R L [facility] [place] [facility] Feb 28, 2024 03:06 PM SECONDARY Hematuria, unspecified RISING,HEATHE R L [facility] [place] [facility] Feb 28, 2024 03:06 PM SECONDARY Parkinsonism, unspecified RISING,HEATHE R L [facility] [place] [facility] Feb 28, 2024 03:06 PM SECONDARY Unspecified urinary incontinence RISING,HEATHE R L [facility] Plan of Treatment: Future Appointments (+ 6 months) and Future Tests (+/- 45 days) The Plan of Treatment section includes future care activities for the patient from all [place] [facility]. This section includes future appointments and future orders which are active, pending or scheduled. Future Appointments This section includes appointments that were scheduled to occur 6 months from the date of the Encounter, up to a maximum of 20 appointments. The data comes from all [facility] facilities. Appointment Date/Time Appointment Type Appointme nt Facility Name Mar 15, 2024 10:00 AM AMBULATORY - REHAB MEDICIN E [facility] [place] [facility] Mar 22, 2024 08:00 AM AMBULATORY - MEDICINE [facility] [place] [facility] Mar 22, 2024 01:00 PM AMBULATORY - NONE [facility] [place] [facility] Mar 27, 2024 02:30 PM AMBULATORY - MEDICINE [place] [facility] [place] [facility] Mar 29, 2024 11:00 AM AMBULATORY - REHAB MEDICIN E [facility] [place] [facility] Apr 12, 2024 11:00 AM AMBULATORY - REHAB MEDICIN E [facility] [place] [facility] Apr 26, 2024 09:00 AM AMBULATORY - MEDICINE [place] [facility] [place] [facility] Apr 26, 2024 11:00 AM AMBULATORY - REHAB MEDICIN E [place] [facility] [place] [facility] Active, Pending, and Scheduled Orders This section includes a listing of several types of active, pending, and scheduled orders, including clinic medications orders, diagnostic test orders, procedure orders and consult orders; where the start date of the order is 45 days before the date of the Encounter or 45 days after the date of theEncounter. The data comes from all [place] treatment facilities. Test Date/Time Test Type Test Details Facility Name Feb 29, 2024 07:27 AM Consult Order [facility] NON-SKILLED HOME HEALTH AIDE Cons Web Database Developer's Choice [facility] Feb 29, 2024 01:44 PM Consult Order [facility] Cons Web Database Developer's Choice [facility] Apr 05, 2024 12:00 AM Laboratory - Chemi stry Order CBC AND DIFF (AUTO) BLOOD (LAV-BLOOD) [facility] Apr 05, 2024 12:00 AM Laboratory - Chemi stry Order IRON & TIBC PANEL BLOOD (SST-SERUM) [facility] Apr 05, 2024 12:00 AM Laboratory - Chemi stry Order FERRITIN BLOOD (SST-SERUM) [facility] Apr 05, 2024 12:00 AM Laboratory - Chemi stry Order BASIC METABOLIC PANEL (non-fasting) BLOOD (SST-SERUM) [facility] Apr 05, 2024 12:00 AM Laboratory - Chemi stry Order OCCULT BLOOD FIT X1 SCREEN(IN-HOUSE) STOOL FECES SP [facility] Apr 05, 2024 09:28 AM Consult Order [facility] Cons Web Database Developer's Choice [facility] Lab Results: +/- 30 days of [...] Range Comment Mar 28, 2024 12:30 PM [facility] LIVER FUNCTION Specimen Type: SERUM No comment entered. Ordering Provider: LUIS FERNANDO FONTANEZ Report Released Date/Time: Dec 28, 2023 07:18 AM Reporting Lab: [address] [address] Performing Lab: [address] [address] PROTEIN,TOTAL 6.0 g/dL 6.0-8.3 ALBUMIN 3.2 g/dL L 3.5-5.0 ALKALINE PHOSPHATASE 72 U/L 40-150 AST 21 U/L 5-34 ALT <6 U/L BILIRUBIN, TOTAL 0.4 mg/dL 0.2-1.2 Mar 28, 2024 12:30 PM [facility] BASIC METABOLIC PANEL (non-fasting) Specimen Type: SERUM No comment entered. Ordering Provider: LUIS FERNANDO FONTANEZ Report Released Date/Time: Dec 28, 2023 07:18 AM Reporting Lab: [facility] [address] [facility] [address] Performing Lab: [address] [address] UREA NITROGEN 21 mg/dL 7-25 GLUCOSE 98 mg/dL 65-100 SODIUM 139 mmol/L 135-145 POTASSIUM 3.4 mmol/L L 3.5-5.0 CHLORIDE 102 mmol/L 100-110 CO2 27 meq/L 20-30 CREATININE, Serum 0.88 mg/dL 0.50-1.40 eGFR(CKD-EPI 2020) 90 mL/min >60 Mar 28, 2024 12:30 PM [facility] CBC AND DIFF (AUTO) Specimen Type: BLOOD No comment entered. Ordering Provider: LUIS FERNANDO FONTANEZ Report Released Date/Time: Dec 28, 2023 07:18 AM Reporting Lab: [facility] [address] [facility] [address] Performing Lab: [address] [address] WBC 9.03 10*3/uL 4.50-11.00 RBC 4.16 10*6/uL [...] AM 97.2 54 101/78 16 96 0 [facility] Social History: Smoking Status (Most current) and Tobacco Use (All prior to encounter date) This section includes the most current, and the historical, smoking and tobacco- related health factors from the NE facility where the Encounter took place. Current Smoking Status This section includes the most current smoking, or tobacco-related health factor, from the NE facility where the Encounter took place. Date/Time Current Smoking Status Comment Facil ity Jan 19, 2023 12:24 PM VA-TOBACCO NEVER USED [facility] Tobacco Use History This section includes a history of the smoking, or tobacco-related health factors, that were collected on or before the date of the Encounter. The data comes from the [place] facility where the Encounter took place. Date/Time Smoking Status/Tobacco Use Comment F hosea Jan 15, 2021 11:00 AM VA-TOBACCO NEVER USED [facility] Advance Directives: All historical and current [...] 2021 ADVANCE DIRECTIVE AALIYAHBENTON Chacko [facility] Encounter Notes: All associated encounter notes This section contains the clinical notes associated to the Encounter. Date/Time Encounter Note(s) Provider Source Mar 01, 2024 06:24 PM ADDENDUM: LOCAL TITLE: Addendum STANDARD TITLE: ADDENDUM DATE OF NOTE: MAR 01, 2024@18:24:30 ENTRY DATE: MAR 01, 2024@18:24:32 AUTHOR: AMARIS WESTFALL EXP COSIGNER: URGENCY: STATUS: COMPLETED Thank you, will resend dietary guidelines /es/ AMARIS WESTFALL M.S.,CCC-IT SUPPORT SPECIALIST SPEECH-LANGUAGE PATHOLOGIST Signed: 03/01/2024 18:24 Receipt Acknowledged By: 03/06/2024 12:03 /sharron/ RAMIN MENDIETA, PT, MS, ATP [facility] Physical Therapist --- Original Document --- 02/28/24 [facility] RN PROGRESS NOTE: Nursing Progress Note [...] BY ACTIVE MOUTH FOUR TIMES A DAY 5) CHLORHEXIDINE [...] ONE TABLET BY MOUTH AT ACTIVE BEDTIME 12) INCONT LINER PREVAIL GUARDS #[id number] USE 1 LINER ACTIVE TOPICALLY TWO TIMES A DAY 13) INCONT LINER,MENS X-HVY SURECARE #[id number] USE 1 LINER ACTIVE TOPICALLY AT BEDTIME 14) INCONTINENCE WRAP,MALE USE 1 INCONTINENCE WRAP ACTIVE TOPICALLY AT BEDTIME 15) MELATONIN 5MG CAP/TAB TAKE THREE CAPSULE/TABLETS BY ACTIVE MOUTH AT BEDTIME FOR INSOMNIA 16) MEMANTINE HCL 10MG TAB TAKE ONE TABLET BY MOUTH TWICE ACTIVE DAILY 17) MIDODRINE HCL 5MG TAB TAKE ONE TABLET BY MOUTH THREE ACTIVE TIMES DAILY NEEDED FOR LOW BLOOD PRESSURE 18) MULTIVITAMIN/MINERALS CAP/TAB TAKE 1 TABLET BY MOUTH ACTIVE ONCE DAILY FOR VITAMIN SUPPLEMENTATION 19) OATMEAL,COLLOIDAL CLEANSING BAR/DRY [...] ONE TABLET BY MOUTH ACTIVE ONCE DAILY 23) UNDERPAD,BED ULTRASORB [id number] M#[id number] USE 2 UNDERPADS ACTIVE TOPICALLY AT BEDTIME [...] in patient's home at time of visit. [place] identified by: Full Name, Facial Recognition Length of visit in home: 50 Problem addressed for this visit: PD, fall, flu shot Specimen(s) collected during this visit: None NURSING SUMMARY: RNCM made home visit for chronic disease management, neuro assessment, c/v and c/p assessment. Lawton sitting in his recliner in the living room upon arrival, spouse present. Lawton well groomed. Dressed appropriately. Poor eye contact. Soft spoken. Michael lift not working correctly. [facility] PT aware and placed consult for a STAT repair. [employer] As[employer]er came out and assessed Michael 2 weeks ago and stated that it can't be fixed and had to ordered another one. Spouse inquiring on status of delivery. Spouse reports having open cystoscopy lithotripsy with stent placement this Friday 03/02. Pre Op physical and labs completed by [facility] PCP. Spouse requesting [place] catheters. Appetite and fluid intake fair. Spouse chopping up foods with general distillery worker. Not adding ay thickener to liquids. Denies any choking episodes. Spouse reports she checks bp daily and usually runs 120's/80's but there is 1-2 x a week Veterans face becomes flushed and BP 150/s/90 but then comes right down. denies chest pain, palpations, dizziness. BP during visit 101/78. Geriatric appt on with Dr. Villasenor on 05/28 [facility] Spouse reports had VVC with Speech therapist on 02/13 and they reviewed dysphagia diet and ST told her she would mail out list of foods. Spouse asking this telegraphic typewriter operator chief to reach out to ST because she hasn't received anything in the mail. ST recommended barium swallow. Spouse reports fall 4 days, during the day, living room, landed on buttock bruise to center of butt, and Lawton was able to get himself up. Spouse was outside doing yard work when fall happened. She states he like to get his DVD's out of the cabinet and he was sitting on the stool and fell off. Discussed with spouse putting DVD's in a place can easily reach. manages medications. Reviewed medication regimen. Spouse administering meds as directed. Updated med list left in the home. Reviewed with spouse glycopyrrolate script and hydroxyzine script has 0 refills. Instructed spouse to call community neurologist and have the fax [facility]. Spouse verbalized understanding and has number. Offered flu vaccine declined due to Lawton having surgery this Tuesday. The plan is to administer next home visit. Spouses Refuses shingles vaccine. Doesn't want Lawton to have this vaccine. Blood Pressure: 100/58 (01/23/2024 10:00) Pulse: 60 (01/23/2024 10:00) Respiration: 18 (01/23/2024 10:00) Temperature: 98.6 F [37.0 C] (01/23/2024 10:00) Pain Score: 0 (01/23/2024 10:00) EXAMINATION: Lungs: Ls clear throughout. Resp easy and reg. Edema: PPP, No edema HR: Strong and reg. Denies chest pain, palpations, dizziness. Bowel/Bladder: Incontinent of urine. Intermittent Hematuria. CT-scan 01/08 at [facility], CT scan abdomen/pelvis without contrast. CT scan received from [facility], multiple stones, non-obstructing and no hydronephrosis. uses quick change urine management wrap with oversized poise pad. Occasional incontinence of stool. Denies diarrhea/constipation. Skin: Clean, dry and intact. No skin breakdown Home Safety FALLS YES INFECTIONS NO ER/HOSPITALIZATIONS NO Teaching/goals: Refer to nursing summary. goal is to live at home safely with his as long as possible with assist from his and [facility], [employer] Patient verbalizes understanding to above and will call with any concerns or changes in condition. For emergent care call 911. Revisit: 03/27 for chronic disease management, neuro assessment, c/v and c/p assessment, med review, labs /consuelo SEGURA CLERICAL AND OFFICE SUPPORT WORKERS [facility] IMMIGRATION LAWYER Signed: 02/28/2024 15:06 02/28/2024 ADDENDUM STATUS: COMPLETED Michael lift not working correctly. [facility] PT aware and placed consult for a STAT repair. [employer] As[employer]er came out and assessed Michael 2 weeks ago and stated that it can't be fixed and had to ordered another one. Spouse inquiring on status of delivery. /ZACHARIAH Rodriguez [facility] IMMIGRATION LAWYER Signed: 02/28/2024 15:16 Receipt Acknowledged By: 02/29/2024 08:26 /consuelo MENDIETA PT, MS, ATP [facility] Physical Therapist 02/28/2024 ADDENDUM STATUS: COMPLETED Spouse reports Lawton had VVC with Speech therapist on 02/13 and they reviewed dysphagia diet and ST told her she would mail out list of foods. Spouse asking this telegraphic typewriter operator chief to reach out to ST because she hasn't received anything in the mail. ST recommended barium swallow. /ZACHARIAH Rodriguez [facility] IMMIGRATION LAWYER Signed: 02/28/2024 15:17 Receipt Acknowledged By: 03/01/2024 18:24 /sharron/ AMARIS WESTFALL M.S.,[facility]-IT SUPPORT SPECIALIST SPEECH-LANGUAGE PATHOLOGIST 02/29/2024 ADDENDUM STATUS: COMPLETED Spoke to patient's spouse re: Michael Lift and spouse stated that clinical technician evaluated Michael Lift on 02/23/24. Vendor is ordering a new Michael Lift. Will follow up for an approximate delivery date. /consuelo MENDIETA PT, MS, ATP [facility] Physical Therapist Signed: 02/29/2024 08:30 AMARIS WESTFALL [facility] [place] [facility] Feb 28, 2024 03:17 PM ADDENDUM: LOCAL TITLE: Addendum STANDARD TITLE: ADDENDUM DATE OF NOTE: FEB 28, 2024@15:17:21 ENTRY DATE: FEB 28, 2024@15:17:23 AUTHOR: JENNIFER SEGURA COSIGNER: URGENCY: STATUS: COMPLETED Spouse reports Lawton had VVC with Speech therapist on 02/13 and they reviewed dysphagia diet and ST told her she would mail out list of foods. Spouse asking this telegraphic typewriter operator chief to reach out to ST because she hasn't received anything in the mail. ST recommended barium swallow. /es/ ZACHARIAH SWIFT IMMIGRATION LAWYER Signed: 02/28/2024 15:17 Receipt Acknowledged By: 03/01/2024 18:24 /es/ AMARIS WESTFALL M.S.,[facility]-IT SUPPORT SPECIALIST SPEECH-LANGUAGE PATHOLOGIST --- Original Document --- 02/28/24 [facility] RN PROGRESS NOTE: Nursing Progress Note [...] BY ACTIVE MOUTH FOUR TIMES A DAY 5) CHLORHEXIDINE [...] ONE TABLET BY MOUTH AT ACTIVE BEDTIME 12) INCONT LINER PREVAIL GUARDS #[id number] USE 1 LINER ACTIVE TOPICALLY TWO TIMES A DAY 13) INCONT LINER,MENS X-HVY SURECARE #[id number] USE 1 LINER ACTIVE TOPICALLY AT BEDTIME 14) INCONTINENCE WRAP,MALE USE 1 INCONTINENCE WRAP ACTIVE TOPICALLY AT BEDTIME 15) MELATONIN 5MG CAP/TAB TAKE THREE CAPSULE/TABLETS BY ACTIVE MOUTH AT BEDTIME FOR INSOMNIA 16) MEMANTINE HCL 10MG TAB TAKE ONE TABLET BY MOUTH TWICE ACTIVE DAILY 17) MIDODRINE HCL 5MG TAB TAKE ONE TABLET BY MOUTH THREE ACTIVE TIMES DAILY NEEDED FOR LOW BLOOD PRESSURE 18) MULTIVITAMIN/MINERALS CAP/TAB TAKE 1 TABLET BY MOUTH ACTIVE ONCE DAILY FOR VITAMIN SUPPLEMENTATION 19) OATMEAL,COLLOIDAL CLEANSING BAR/DRY [...] ONE TABLET BY MOUTH ACTIVE ONCE DAILY 23) UNDERPAD,BED ULTRASORB [id number] M#[id number] USE 2 UNDERPADS ACTIVE TOPICALLY AT BEDTIME [...] Recognition Length of visit in home: 50 Problem addressed for this visit: PD, fall, flu shot Specimen(s) collected during this visit: None NURSING SUMMARY: RNCM made home visit for chronic disease management, neuro assessment, c/v and c/p assessment. [place] sitting in his recliner in the living room upon arrival, spouse present. well groomed. Dressed appropriately. Poor eye contact. Soft spoken. Michael lift not working correctly. [facility] PT aware and placed consult for a STAT repair. [employer] As[employer]er came out and assessed Michael 2 weeks ago and stated that it can't be fixed and had to ordered another one. Spouse inquiring on status of delivery. Spouse reports Lawton having open cystoscopy lithotripsy with stent placement this Friday 03/02. Pre Op physical and labs completed by [facility] PCP. Spouse requesting [place] catheters. Appetite and fluid intake fair. Spouse chopping up foods with general distillery worker. Not adding ay thickener to liquids. Denies any choking episodes. Spouse reports she checks bp daily and usually runs 120's/80's but there is 1-2 x a week Veterans face becomes flushed and BP 150/s/90 but then comes right down. denies chest pain, palpations, dizziness. BP during visit 101/78. Geriatric appt on with Dr. Villasenor on 05/28 [facility] Spouse reports Lawton had VVC with Speech therapist on 02/13 and they reviewed dysphagia diet and ST told her she would mail out list of foods. Spouse asking this telegraphic typewriter operator chief to reach out to ST because she hasn't received anything in the mail. ST recommended barium swallow. Spouse reports fall 4 days, during the day, living room, landed on buttock bruise to center of butt, and was able to get himself up. Spouse was outside doing yard work when fall happened. She states he like to get his DVD's out of the cabinet and he was sitting on the stool and fell off. Discussed with spouse putting DVD's in a place can easily reach. manages medications. Reviewed medication regimen. Spouse administering meds as directed. Updated med list left in the home. Reviewed with spouse glycopyrrolate script and hydroxyzine script has 0 refills. Instructed spouse to call community neurologist and have the fax [facility] pharmacy. Spouse verbalized understanding and has number. Offered flu vaccine declined due to having surgery this Tuesday. The plan is to administer next home visit. Spouses Refuses shingles vaccine. Doesn't want to have this vaccine. Blood Pressure: 100/58 (01/23/2024 10:00) Pulse: 60 (01/23/2024 10:00) Respiration: 18 (01/23/2024 10:00) Temperature: 98.6 F [37.0 C] (01/23/2024 10:00) Pain Score: 0 (01/23/2024 10:00) EXAMINATION: Lungs: Ls clear throughout. Resp easy and reg. Edema: PPP, No edema HR: Strong and reg. Denies chest pain, palpations, dizziness. Bowel/Bladder: Incontinent of urine. Intermittent Hematuria. CT-scan 01/08 at [facility], CT scan abdomen/pelvis without contrast. CT scan received from [facility], multiple stones, non-obstructing and no hydronephrosis. uses quick change urine management wrap with oversized poise pad. Occasional incontinence of stool. Denies diarrhea/constipation. Skin: Clean, dry and intact. No skin breakdown Home Safety FALLS YES INFECTIONS NO ER/HOSPITALIZATIONS NO Teaching/goals: Refer to nursing summary. [place] goal is to live at home safely with his as long as possible with assist from his and [facility], [facility] Patient verbalizes understanding to above and will call with any concerns or changes in condition. For emergent care call 911. Revisit: 03/27 for chronic disease management, neuro assessment, c/v and c/p assessment, med review, labs /es/ JENNIFER SEGURA CLERICAL AND OFFICE SUPPORT WORKERS [facility] IMMIGRATION LAWYER Signed: 02/28/2024 15:06 02/28/2024 ADDENDUM STATUS: COMPLETED Michael lift not working correctly. [facility] PT aware and placed consult for a STAT repair. [employer] As[employer]er came out and assessed Michael 2 weeks ago and stated that it can't be fixed and had to ordered another one. Spouse inquiring on status of delivery. /ZACHARIAH Rodriguez [facility] IMMIGRATION LAWYER Signed: 02/28/2024 15:16 Receipt Acknowledged By: 02/29/2024 08:26 /consuelo MENDIETA PT, MS, ATP [facility] Physical Therapist 02/29/2024 ADDENDUM STATUS: COMPLETED Spoke to patient's spouse re: Michael Lift and spouse stated that clinical technician evaluated Michael Lift on 02/23/24. Vendor is ordering a new Michael Lift. Will follow up for an approximate delivery date. /consuelo MENDIETA PT, MS, ATP [facility] Physical Therapist Signed: 02/29/2024 08:30 JENNIFER SEGURA CNTRL [facility] Feb 28, 2024 03:16 PM ADDENDUM: LOCAL TITLE: Addendum STANDARD TITLE: ADDENDUM DATE OF NOTE: FEB 28, 2024@15:16:19 ENTRY DATE: FEB 28, 2024@15:16:20 AUTHOR: JENNIFER SEGURA EXP COSIGNER: URGENCY: STATUS: COMPLETED Michael lift not working correctly. [facility] PT aware and placed consult for a STAT repair. [employer] Assembler came out and assessed Michael 2 weeks ago and stated that it can't be fixed and had to ordered another one. Spouse inquiring on status of delivery. /ZACHARIAH Rodriguez [facility] IMMIGRATION LAWYER Signed: 02/28/2024 15:16 Receipt Acknowledged By: 02/29/2024 08:26 /consuelo MENDIETA PT, MS, ATP [facility] Physical Therapist --- Original Document --- 02/28/24 [facility] RN PROGRESS NOTE: Nursing Progress Note [...] BY ACTIVE MOUTH FOUR TIMES A DAY 5) CHLORHEXIDINE [...] ONE TABLET BY MOUTH AT ACTIVE BEDTIME 12) INCONT LINER PREVAIL GUARDS #[id number] USE 1 LINER ACTIVE TOPICALLY TWO TIMES A DAY 13) INCONT LINER,MENS X-HVY SURECARE #[id number] USE 1 LINER ACTIVE TOPICALLY AT BEDTIME 14) INCONTINENCE WRAP,MALE USE 1 INCONTINENCE WRAP ACTIVE TOPICALLY AT BEDTIME 15) MELATONIN 5MG CAP/TAB TAKE THREE CAPSULE/TABLETS BY ACTIVE MOUTH AT BEDTIME FOR INSOMNIA 16) MEMANTINE HCL 10MG TAB TAKE ONE TABLET BY MOUTH TWICE ACTIVE DAILY 17) MIDODRINE HCL 5MG TAB TAKE ONE TABLET BY MOUTH THREE ACTIVE TIMES DAILY NEEDED FOR LOW BLOOD PRESSURE 18) MULTIVITAMIN/MINERALS CAP/TAB TAKE 1 TABLET BY MOUTH ACTIVE ONCE DAILY FOR VITAMIN SUPPLEMENTATION 19) OATMEAL,COLLOIDAL CLEANSING BAR/DRY [...] ONE TABLET BY MOUTH ACTIVE ONCE DAILY 23) UNDERPAD,BED ULTRASORB [id number] M#[id number] USE 2 UNDERPADS ACTIVE TOPICALLY AT [...] in patient's home at time of visit. [place] identified by: Full Name, Facial Recognition Length of visit in home: 50 Problem addressed for this visit: PD, fall, flu shot Specimen(s) collected during this visit: None NURSING SUMMARY: RNCM made home visit for chronic disease management, neuro assessment, c/v and c/p assessment. Lawton sitting in his recliner in the living room upon arrival, spouse present. well groomed. Dressed appropriately. Poor eye contact. Soft spoken. Michael lift not working correctly. [facility] PT aware and placed consult for a STAT repair. [employer] Assembler came out and assessed Michael 2 weeks ago and stated that it can't be fixed and had to ordered another one. Spouse inquiring on status of delivery. Spouse reports Lawton having open cystoscopy lithotripsy with stent placement this Friday 03/02. Pre Op physical and labs completed by [facility] PCP. Spouse requesting [place] catheters. Appetite and fluid intake fair. Spouse chopping up foods with general distillery worker. Not adding ay thickener to liquids. Denies any choking episodes. Spouse reports she checks bp daily and usually runs 120's/80's but there is 1-2 x a week Veterans face becomes flushed and BP 150/s/90 but then comes right down. Lawton denies chest pain, palpations, dizziness. BP during visit 101/78. Geriatric appt on with Dr. Villasenor [place] 05/[place] Spouse reports had VVC with Speech therapist on 02/13 and they reviewed dysphagia diet and ST told her she would mail out list of foods. Spouse asking this telegraphic typewriter operator chief to reach out to ST because she hasn't received anything in the mail. ST recommended barium swallow. Spouse reports fall 4 days, during the day, living room, landed on buttock bruise to center of butt, and was able to get himself up. Spouse was outside doing yard work when fall happened. She states he like to get his DVD's out of the cabinet and he was sitting on the stool and fell off. Discussed with spouse putting DVD's in a place can easily reach. manages medications. Reviewed medication regimen. Spouse administering meds as directed. Updated med list left in the home. Reviewed with spouse glycopyrrolate script and hydroxyzine script has 0 refills. Instructed spouse to call community neurologist and have the fax [facility]. Spouse verbalized understanding and has number. Offered flu vaccine declined due to having surgery this Tuesday. The plan is to administer next home visit. Spouses Refuses shingles vaccine. Doesn't want to have this vaccine. Blood Pressure: 100/58 (01/23/2024 10:00) Pulse: 60 (01/23/2024 10:00) Respiration: 18 (01/23/2024 10:00) Temperature: 98.6 F [37.0 C] (01/23/2024 10:00) Pain Score: 0 (01/23/2024 10:00) EXAMINATION: Lungs: Ls clear throughout. Resp easy and reg. Edema: PPP, No edema HR: Strong and reg. Denies chest pain, palpations, dizziness. Bowel/Bladder: Incontinent of urine. Intermittent Hematuria. CT-scan 01/08 at [facility], CT scan abdomen/pelvis without contrast. CT scan received from [facility], multiple stones, non-obstructing and no hydronephrosis. uses quick change urine management wrap with oversized poise pad. Occasional incontinence of stool. Denies diarrhea/constipation. Skin: Clean, dry and intact. No skin breakdown Home Safety FALLS YES INFECTIONS NO ER/HOSPITALIZATIONS NO Teaching/goals: Refer to nursing summary. goal is to live at home safely with his as long as possible with assist from his and [facility], [facility] Patient verbalizes understanding to above and will call with any concerns or changes in condition. For emergent care call 911. Revisit: 03/27 for chronic disease management, neuro assessment, c/v and c/p assessment, med review, labs /sharron/ JENNIFER SEGURA CLERICAL AND OFFICE SUPPORT WORKERS MARILNI IMMIGRATION LAWYER Signed: 02/28/2024 15:06 02/28/2024 ADDENDUM STATUS: COMPLETED Spouse reports Lawton had VVC with Speech therapist on 02/13 and they reviewed dysphagia diet and ST told her she would mail out list of foods. Spouse asking this telegraphic typewriter operator chief to reach out to ST because she hasn't received anything in the mail. ST recommended barium swallow. /sharron/ ZACHARIAH SWIFT DARSHAN IMMIGRATION LAWYER Signed: 02/28/2024 15:17 Receipt Acknowledged By: * AWAITING SIGNATURE * AMARIS WESTFALL HEATHER L [place] [facility] [place] [facility] Feb 28, 2024 03:11 PM NURSING FALL RISK ASSESSMENT NOTE: LOCAL TITLE: [facility] POST FALL ASSESSMENT NOTE STANDARD TITLE: NURSING FALL RISK ASSESSMENT NOTE DATE OF NOTE: FEB 28, 2024@15:11 ENTRY DATE: FEB 28, 2024@15:11:27 AUTHOR: JENNIFER SEGURA EXP COSIGNER: URGENCY: STATUS: COMPLETED [facility] FALL ASSESSMENT NOTE Date of Fall: 02/24/24 Time of Fall: PM Skirt Clipper: Jennifer Segura Fall was witnessed: No Description of Fall: Where: living room How: fell over Injury: Yes Location: small bruise on buttock Side: N/A Other Information Pertinent to Fall: Spouse reports fall 4 days, during the day, living room, landed on buttock bruise to center of butt, and Lawton was able to get himself up. Level of Injury: 1 = Minor (bruises, [...] Patient Safety Reporting Site (JPSR) found on [facility] Intranet home page. No, not applicable Is patient currently receiving PT/OT services: No Pt referred to PT/OT: No Patient Declines Interventions: Follow-up Medical Visit, PCP Notified, [facility] PSA Notified, Interdisciplinary Care Plan Updated, Education was provided to patient and/or family regarding risk factors and prevention of future falls. Program Follow-up: Interdisciplinary Team reviews recent falls and modifies Patient's care plan as appropriate. Associate Professor Of Physics (or designee) tracks all falls, observes trends, and modifies Falls Prevention Plan as needed. Fall data is reported to [facility] Patient Attendant [facility] on a quarterly basis. /es/ JENNIFER SEGURA CLERICAL AND OFFICE SUPPORT WORKERS [facility] IMMIGRATION LAWYER Signed: 02/28/2024 15:15 Receipt Acknowledged By: 02/29/2024 08:21 /es/ DANIELLE FLORES OTR/L [facility] OCCUPATIONAL THERAPIST 02/28/2024 15:26 /es/ KALYAN BABRER [facility] MARKET RESEARCH COORDINATOR for MARIAH FLORES 02/29/2024 06:46 /es/ AMANDO OHARA [facility]/HB 02/28/2024 15:26 /es/ KALYAN BARBER [facility] MARKET RESEARCH COORDINATOR 03/08/2024 08:29 /es/ SPRING NEVES PT [facility] PHYSICAL THERAPIST 02/29/2024 11:50 /es/ RAMIN MENDIETA PT, MS, ATP [facility] Physical Therapist 02/29/2024 07:26 /es/ LUIS FERNANDO HICKEY-Katerin [facility] NURSE PRACTITIONER JENNIFER SEGURA [facility] [place] [facility] Feb 28, 2024 09:56 AM [facility] NURSING NOTE: LOCAL TITLE: [facility] RN PROGRESS NOTE STANDARD TITLE: [facility] NURSING NOTE DATE OF NOTE: FEB 28, 2024@09:56 ENTRY DATE: FEB 28, 2024@09:57:10 AUTHOR: JENNIFER SEGURA EXP COSIGNER: URGENCY: STATUS: [...] BY ACTIVE MOUTH FOUR TIMES A DAY 5) CHLORHEXIDINE [...] ONE TABLET BY MOUTH AT ACTIVE BEDTIME 12) INCONT LINER PREVAIL GUARDS #[id number] USE 1 LINER ACTIVE TOPICALLY TWO TIMES A DAY 13) INCONT LINER,MENS X-HVY SURECARE #[id number] USE 1 LINER ACTIVE TOPICALLY AT BEDTIME 14) INCONTINENCE WRAP,MALE USE 1 INCONTINENCE WRAP ACTIVE TOPICALLY AT BEDTIME 15) MELATONIN 5MG CAP/TAB TAKE THREE CAPSULE/TABLETS BY ACTIVE MOUTH AT BEDTIME FOR INSOMNIA 16) MEMANTINE HCL 10MG TAB TAKE ONE TABLET BY MOUTH TWICE ACTIVE DAILY 17) MIDODRINE HCL 5MG TAB TAKE ONE TABLET BY MOUTH THREE ACTIVE TIMES DAILY NEEDED FOR LOW BLOOD PRESSURE 18) MULTIVITAMIN/MINERALS CAP/TAB TAKE 1 TABLET BY MOUTH ACTIVE ONCE DAILY FOR VITAMIN SUPPLEMENTATION 19) OATMEAL,COLLOIDAL CLEANSING BAR/DRY [...] ONE TABLET BY MOUTH ACTIVE ONCE DAILY 23) UNDERPAD,BED ULTRASORB [id number] M#[id number] USE 2 UNDERPADS ACTIVE TOPICALLY AT [...] Recognition Length of visit in home: 50 Problem addressed for this visit: PD, fall, flu shot Specimen(s) collected during this visit: None NURSING SUMMARY: RNCM made home visit for chronic disease management, neuro assessment, c/v and c/p assessment. Lawton sitting in his recliner in the living room upon arrival, spouse present. well groomed. Dressed appropriately. Poor eye contact. Soft spoken. Michael lift not working correctly. [facility] PT aware and placed consult for a STAT repair. [employer] Assembler came out and assessed Michael 2 weeks ago and stated that it can't be fixed and had to ordered another one. Spouse inquiring on status of delivery. Spouse reports Lawton having open cystoscopy lithotripsy with stent placement this Friday 03/02. Pre Op physical and labs completed by [facility] PCP. Spouse requesting [place] catheters. Appetite and fluid intake fair. Spouse chopping up foods with general distillery worker. Not adding ay thickener to liquids. Denies any choking episodes. Spouse reports she checks bp daily and usually runs 120's/80's but there is 1-2 x a week Veterans face becomes flushed and BP 150/s/90 but then comes right down. Lawton denies chest pain, palpations, dizziness. BP during visit 101/78. Geriatric appt on with Dr. Villasenor on 05/28 [facility] Spouse reports had VVC with Speech therapist on 02/13 and they reviewed dysphagia diet and ST told her she would mail out list of foods. Spouse asking this telegraphic typewriter operator chief to reach out to ST because she hasn't received anything in the mail. ST recommended barium swallow. Spouse reports fall 4 days, during the day, living room, landed on buttock bruise to center of butt, and was able to get himself up. Spouse was outside doing yard work when fall happened. She states he like to get his DVD's out of the cabinet and he was sitting on the stool and fell off. Discussed with spouse putting DVD's in a place Lawton can easily reach. manages medications. Reviewed medication regimen. Spouse administering meds as directed. Updated med list left in the home. Reviewed with spouse glycopyrrolate script and hydroxyzine script has 0 refills. Instructed spouse to call community neurologist and have the fax [facility]. Spouse verbalized understanding and has number. Offered flu vaccine declined due to Lawton having surgery this Tuesday. The plan is to administer next home visit. Spouses Refuses shingles vaccine. Doesn't want Lawton to have this vaccine. Blood Pressure: 100/58 (01/23/2024 10:00) Pulse: 60 (01/23/2024 10:00) Respiration: 18 (01/23/2024 10:00) Temperature: 98.6 F [37.0 C] (01/23/2024 10:00) Pain Score: 0 (01/23/2024 10:00) EXAMINATION: Lungs: Ls clear throughout. Resp easy and reg. Edema: PPP, No edema HR: Strong and reg. Denies chest pain, palpations, dizziness. Bowel/Bladder: Incontinent of urine. Intermittent Hematuria. CT-scan 01/08 at [facility], CT scan abdomen/pelvis without contrast. CT scan received from [facility], multiple stones, non-obstructing and no hydronephrosis. uses quick change urine management wrap with oversized poise pad. Occasional incontinence of stool. Denies diarrhea/constipation. Skin: Clean, dry and intact. No skin breakdown Home Safety FALLS YES INFECTIONS NO ER/HOSPITALIZATIONS NO Teaching/goals: Refer to nursing summary. Lawton goal is to live at home safely with his as long as possible with assist from his and [facility], [facility] Patient verbalizes understanding to above and will call with any concerns or changes in condition. For emergent care call 911. Revisit: 03/27 for chronic disease management, neuro assessment, c/v and c/p assessment, med review, labs /ZACHARIAH Rodriguez [facility] IMMIGRATION LAWYER Signed: 02/28/2024 15:06 02/28/2024 ADDENDUM STATUS: COMPLETED Michael lift not working correctly. [facility] PT aware and placed consult for a STAT repair. [employer] Assembler came out and assessed Michael 2 weeks ago and stated that it can't be fixed and had to ordered another one. Spouse inquiring on status of delivery. /ZACHARIAH Rodriguez [facility] IMMIGRATION LAWYER Signed: 02/28/2024 15:16 Receipt Acknowledged By: 02/29/2024 08:26 /sharron/ RAMIN MENDIETA, PT, MS, ATP [facility] Physical Therapist 02/28/2024 ADDENDUM STATUS: COMPLETED Spouse reports Lawton had VVC with Speech therapist on 02/13 and they reviewed dysphagia diet and ST told her she would mail out list of foods. Spouse asking this telegraphic typewriter operator chief to reach out to ST because she hasn't received anything in the mail. ST recommended barium swallow. /ZACHARIAH Rodriguez [facility] IMMIGRATION LAWYER Signed: 02/28/2024 15:17 Receipt Acknowledged By: 03/01/2024 18:24 /sharron/ AMARIS WESTFALL M.S.,[facility] SUPPORT SPECIALIST SPEECH-LANGUAGE PATHOLOGIST 02/29/2024 ADDENDUM STATUS: COMPLETED Spoke to patient's spouse re: Michael Lift and spouse stated that clinical technician evaluated Michael Lift on 02/23/24. Vendor is ordering a new Michael Lift. Will follow up for an approximate delivery date. /sharron/ RAMIN MENDIETA, PT, MS, ATP [facility] Physical Therapist Signed: 02/29/2024 08:30 03/01/2024 ADDENDUM STATUS: COMPLETED Thank you, will resend dietary guidelines /sharron/ AMARIS WESTFALL M.S.,[facility] SUPPORT SPECIALIST SPEECH-LANGUAGE PATHOLOGIST Signed: 03/01/2024 18:24 Receipt Acknowledged By: * AWAITING SIGNATURE * RAMIN MENDIETA HEATHER L [facility]
--- OUTSIDE RECORDS SUMMARY | 2024-05-30 08:49 | XMS_ITS | Encounter Summary ---
Author Name [facility] [facility] [place] Organization [facility] [place] Address [address] [place] [id number] Care Team Providers Care [employer] Clerk Name Role Phone HUSEYIN LUIS FERNANDO Primary [...] PRESCRIPT ION [id number] 1 Jun 20, 2017 [id number] [phone] EAMON OLIVIA ERT PATIENT MEDICARE (WNR) MEDICARE (M) PART A Jun 20, 2014 PART A [id number] [phone] EAMON OLIVIA ERT PATIENT MEDICARE (WNR) MEDICARE (M) PART B Jun 20, 2014 PART B [id number] [phone] EAMON OLIVIA ERT PATIENT MEDICARE (WNR) MEDICARE (M) PART A Jun 20, 2014 PART A [id number] [phone] EAMON OLIVIA ERT PATIENT MEDICARE (WNR) MEDICARE (M) PART B Jun 20, 2014 PART B [id number] EAMON OLIVIA ERT PATIENT [employer] RX PRESCRIPT ION RX Jun 20, 2023 THPRX [id number] EAMON OLIVIA ERT PATIENT [employer] RX PRESCRIPT ION RX Jun 20, 2022 THPRX [id number] EAMON OLIVIA ERT PATIENT [employer] RX PRESCRIPT ION RX Jun 20, 2022 THPRX [id number] DAVON OLIVIA JR PATIENT [facility] T[facility] MAR Jun 20, 2017 [id number] [phone] EAMON OLIVIA ERT PATIENT [facility] TON MARIANA E Jun 20, 2017 [id number] [phone] DAVON OLIVIA JR PATIENT [facility] TON PEÑA E Jun 20, 2017 [id number] DAVON OLIVIA JR PATIENT [facility] Jun 20, 2017 USP [id number] EAMON OLIVIA ERT PATIENT [facility] TON Jun 20, 2023 [id number] EAMON OLIVIA ERT PATIENT Selected Encounter This section includes the information on record at [place] for the Encounter. Date/Time Encounter Type Encounter Description Reason Provider Source Feb 29, 2024 08:08 AM QNHP OL DIG ASSMT&MGMT 5-10 CLINICAL PHARMACY ICD-10-CM R32 Unspecified urinary incontinence HAN DOS SANTOS [place] Encounter Template Text not used by [place] Assessments - Encounter Diagnoses This section includes the primary and secondary diagnoses documented for the Encounter. Date/Time Primary/Secondary Diagnosis Diagnosis Name Provider Source Feb 29, 2024 08:09 AM PRIMARY Unspecified urinary incontinence HAN DOS SANTOS [place] Plan of Treatment: Future Appointments (+ 6 [...] 20 appointments. The data comes from all [facility] facilities. Appointment Date/Time Appointment Type Appointme nt Facility Name Mar 15, 2024 10:00 AM AMBULATORY - REHAB MEDICIN E [facility] [place] [facility] Mar 22, 2024 08:00 AM [facility] Mar 22, 2024 01:00 PM AMBULATORY - NONE [facility] Mar 27, 2024 02:30 PM AMBULATORY - MEDICINE [place] [facility] [place] [facility] Mar 29, 2024 11:00 AM AMBULATORY - REHAB MEDICIN E [facility] [place] [facility] Apr 12, 2024 11:00 AM AMBULATORY - REHAB MEDICIN E [facility] [place] [facility] Apr 26, 2024 09:00 AM AMBULATORY - MEDICINE [place] [facility] Apr 26, 2024 11:00 AM AMBULAT[facility] - [facility] Active, Pending, and Scheduled Orders This section includes a listing of several types of active, pending, and scheduled orders, including clinic medications orders, diagnostic test orders, procedure orders and consult orders; where the start date of the order is 45 days before the date of the Encounter or 45 days after the date of theEncounter. The data comes from all [facility]. Test Date/Time Test Type Test Details Facility Name Feb 29, 2024 07:27 AM Consult Order COMMUNITY CARE-GEC NON-SKILLED HOME HEALTH AIDE Cons Tax Audit Manager's Choice [facility] Feb 29, 2024 01:44 PM Consult Order COMMUNITY CARE-SPEECH THERAPY Cons Tax Audit Manager's Choice [facility] Apr 05, 2024 12:00 AM Laboratory - Chemi stry Order CBC AND DIFF (AUTO) BLOOD (LAV-BLOOD) [facility] Apr 05, 2024 12:00 AM Laboratory - Chemi stry Order IRON & TIBC PANEL BLOOD (SST-SERUM) [facility] Apr 05, 2024 12:00 AM Laboratory - Chemi stry Order FERRITIN BLOOD (SST-SERUM) [facility] Apr 05, 2024 12:00 AM Laboratory - Chemi stry Order BASIC METABOLIC PANEL (non-fasting) BLOOD (SST-SERUM) SP [facility] Apr 05, 2024 12:00 AM Laboratory - Chemi stry Order OCCULT BLOOD FIT X1 SCREEN(IN-HOUSE) STOOL FECES SP [facility] Apr 05, 2024 09:28 AM Consult Order [facility]UR[facility] Cons Tax Audit Manager's Choice [facility] Lab Results: +/- 30 days of the encounter This section includes the Chemistry and Hematology Lab Results on record with [place] for the patient. Radiology Reports and Pathology Reports are provided separately, in subsequent sections. Lab Results This section contains the Chemistry/Hematology Results that were resulted 30 days before or 30 daysafter the date of the Encounter. Date/Time Source Result Type Result - Unit Interpretation Reference Range Comment Mar 28, 2024 12:30 PM [facility] LIVER FUNCTION Specimen Type: SERUM No comment entered. Ordering Provider: LUIS FERNANDO FONTANEZ Report Released Date/Time: Dec 28, 2023 07:18 AM Reporting Lab: [address] [id number] Performing Lab: [address] [id number] PROTEIN,TOTAL 6.0 g/dL 6.0-8.3 ALBUMIN 3.2 g/dL L 3.5-5.0 ALKALINE PHOSPHATASE 72 U/L 40-150 AST 21 U/L 5-34 ALT <6 U/L BILIRUBIN, TOTAL 0.4 mg/dL 0.2-1.2 Mar 28, 2024 12:30 PM [facility] BASIC METABOLIC PANEL (non-fasting) Specimen Type: SERUM No comment entered. Ordering Provider: LUIS FERNANDO FONTANEZ Report Released Date/Time: Dec 28, 2023 07:18 AM Reporting Lab: [address] [address] Performing Lab: [facility] [address] [address] UREA NITROGEN 21 mg/dL 7-25 GLUCOSE 98 mg/dL 65-100 SODIUM 139 mmol/L 135-145 POTASSIUM 3.4 mmol/L L 3.5-5.0 CHLORIDE 102 mmol/L 100-110 CO2 27 meq/L 20-30 CREATININE, Serum 0.88 mg/dL 0.50-1.40 eGFR(CKD-EPI 2020) 90 mL/min >60 Mar 28, 2024 12:30 PM [facility] CBC AND DIFF (AUTO) Specimen Type: BLOOD No comment entered. Ordering Provider: LUIS FERNANDO FONTANEZ Report Released Date/Time: Dec 28, 2023 07:18 AM Reporting Lab: [facility] [address] [address] Performing Lab: [facility] [address] [phone] WBC 9.03 10*3/uL 4.50-11.00 RBC 4.16 10*6/uL [...] 0.0 0.0-0.0 NRBC, ABS 0.00 10*3/uL 0.00-0.00 Advance Directives: All historical and current Section [...] Jan 20, 2021 ADVANCE DIRECTIVE BENTON ARAUZ [facility] Encounter Notes: All associated encounter notes This section contains the clinical notes associated to the Encounter. Date/Time Encounter Note(s) Provider Source Feb 29, 2024 08:08 AM MEDICATION MGT CON SULT: LOCAL TITLE: CONSULT REPORT/NON FORMULARY PADR STANDARD TITLE: MEDICATION MGT CONSULT DATE OF NOTE: FEB 29, 2024@08:08 ENTRY DATE: FEB 29, 2024@08:08:41 AUTHOR: HAN DOS SANTOS EXP COSIGNER: URGENCY: STATUS: COMPLETED The medical record has been reviewed with regard to this restricted drug request. Medication requested: CATH,EXTERNAL EXTENDED WEAR SMALL H#[id number] Medication indication: Incontinence Medical history relevant to this request: Patient with incontinence requiring catheter. The request is approved - No formulary-preferred alternative /sharron/ Han Dos Santos PharmD Clinical Pharmacy Practitioner Signed: 02/29/2024 08:09 HAN DOS SANTOS [place]
--- OUTSIDE RECORDS SUMMARY | 2024-05-30 08:51 | XMS_ITS ---
Author Name [facility] [place] Organization [place] Address [address] [place] [address] Care Team Providers Care Guitar Technician Name Role Phone LUIS FERNANDO FONTANEZ [...] ALT ION [id number] 1 Jun 20, 2017 [id number] EAMON OLIVIA ERT PATIENT MEDICARE (WNR) MEDICARE (M) PART A Jun 20, 2014 PART A [id number] EAMON OLIVIA ERT PATIENT MEDICARE (WNR) MEDICARE (M) PART B Jun 20, 2014 PART B [id number] EAMON OLIVIA ERT PATIENT MEDICARE (WNR) MEDICARE (M) PART A Jun 20, 2014 PART A [id number] EAMON OLIVIA ERT PATIENT MEDICARE (WNR) MEDICARE (M) PART B Jun 20, 2014 PART B [id number] [facility] EAMON OLIVIA ERT PATIENT OPTUM RX PRESCRIPT ION RX Jun 20, 2023 THPRX [id number] [phone] EAMON OLIVIA ERT PATIENT OPTUM RX PRESCRIPT ION RX Jun 20, 2022 THPRX [id number] EAMON OLIVIA ERT PATIENT OPTUM RX PRESCRIPT ION RX Jun 20, 2022 THPRX [id number] DAVON OLIVIA JR PATIENT [facility] TON MAR Jun 20, 2017 [id number] [phone] EAMON OLIVIA ERT PATIENT [facility] TON PEÑA E Jun 20, 2017 [id number] DAVON OLIVIA JR PATIENT [facility] PLAN [facility] PEÑA E Jun 20, 2017 [id number] DAVON OLIVIA JR PATIENT [facility] USP Jun 20, 2017 [facility] [id number] [phone] EAMON OLIVIA ERT PATIENT [facility] TON Jun 20, 2023 [id number] EAMON OLIVIA ERT PATIENT Selected Encounter This section includes the information on record at [place] for the Encounter. Date/Time Encounter Type Encounter Description Reason Provider Source Mar 08, 2024 08:45 AM HHCP-SERV OF PT,EA 15 MIN [facility] - THERAPIST ICD-10-CM G20.C Parkinsonism, unspecified RAIVEL,RAMIN IHE Encounter Template Text not used by [place] Assessments - Encounter Diagnoses This section includes the primary and secondary diagnoses documented for the Encounter. Date/Time Primary/Secondary Diagnosis Diagnosis Name Provider Source Mar 12, 2024 07:07 AM PRIMARY Parkinsonism, unspecified RAIVEL,RAMIN [place] [facility] [facility] Plan of Treatment: Future Appointments [...] 20 appointments. The data comes from all [facility]. Appointment Date/Time Appointment Type Appointme nt Facility Name Mar 15, 2024 10:00 AM AMBULATORY - REHAB MEDICIN E [place] [facility] [place] [facility] Mar 22, 2024 08:00 AM AMBULATORY - MEDICINE [place] C [facility] [place] [facility] Mar 22, 2024 01:00 PM [facility] Mar 27, 2024 02:30 PM AMBULATORY - MEDICINE [place] C [facility] [place] [facility] Mar 29, 2024 11:00 AM AMBULATORY - REHAB MEDICIN E [place] [facility] [place] [facility] Apr 12, 2024 11:00 AM AMBULATORY - REHAB MEDICIN E [place] [facility] [facility] Apr 26, 2024 09:00 AM AMBULATORY - MEDICINE SD C [facility] [facility] Apr 26, 2024 11:00 AM [facility] Active, Pending, and Scheduled Orders This section includes a listing of several types of active, pending, and scheduled orders, including clinic medications orders, diagnostic test orders, procedure orders and consult orders; where the start date of the order is 45 days before the date of the Encounter or 45 days after the date of theEncounter. The data comes from all [facility]. Test Date/Time Test Type Test Details Facility Name Feb 29, 2024 07:27 AM Consult Order COMMUNITY CARE-GEC NON-SKILLED HOME HEALTH AIDE Cons Storage Worker's Choice [facility] Feb 29, 2024 01:44 PM Consult Order COMMUNITY CARE-SPEECH THERAPY Cons Storage Worker's [facility] Apr 05, 2024 12:00 AM Laboratory - Chemi stry Order CBC AND DIFF (AUTO) BLOOD (LAV-BLOOD) [facility] Apr 05, 2024 12:00 AM Laboratory - Chemi stry Order IRON & TIBC PANEL BLOOD (SST-SERUM) [facility] Apr 05, 2024 12:00 AM Laboratory - Chemi stry Order FERRITIN BLOOD (SST-SERUM) SP [facility] Apr 05, 2024 12:00 AM Laboratory - Chemi stry Order BASIC METABOLIC PANEL (non-fasting) BLOOD (SST-SERUM) SP [facility] Apr 05, 2024 12:00 AM Laboratory - Chemi stry Order OCCULT BLOOD FIT X1 SCREEN(IN-HOUSE) STOOL FECES SP [facility] Apr 05, 2024 09:28 AM Consult Order PENDING SALE TO [facility]UROLOGY Cons Storage Worker's Choice [facility] Lab Results: +/- 30 days of [...] Range Comment Mar 28, 2024 12:30 PM [facility] LIVER FUNCTION Specimen Type: SERUM No comment entered. Ordering Provider: LUIS FERNANDO FONTANEZ Report Released Date/Time: Dec 28, 2023 07:18 AM Reporting Lab: [address] [address] Performing Lab: [address] [address] PROTEIN,TOTAL 6.0 g/dL 6.0-8.3 ALBUMIN 3.2 g/dL L 3.5-5.0 ALKALINE PHOSPHATASE 72 U/L 40-150 AST 21 U/L 5-34 ALT <6 U/L BILIRUBIN, TOTAL 0.4 mg/dL 0.2-1.2 Mar 28, 2024 12:30 PM [facility] BASIC METABOLIC PANEL (non-fasting) Specimen Type: SERUM No comment entered. Ordering Provider: LUIS FERNANDO FONTANEZ Report Released Date/Time: Dec 28, 2023 07:18 AM Reporting Lab: [facility] [address] [facility] [address] Performing Lab: [facility] [address] [facility] [address] UREA NITROGEN 21 mg/dL 7-25 GLUCOSE 98 mg/dL 65-100 SODIUM 139 mmol/L 135-145 POTASSIUM 3.4 mmol/L L 3.5-5.0 CHLORIDE 102 mmol/L 100-110 CO2 27 meq/L 20-30 CREATININE, Serum 0.88 mg/dL 0.50-1.40 eGFR(CKD-EPI 2020) 90 mL/min >60 Mar 28, 2024 12:30 PM [facility] CBC AND DIFF (AUTO) Specimen Type: BLOOD No comment entered. Ordering Provider: LUIS FERNANDO FONTANEZ Report Released Date/Time: Dec 28, 2023 07:18 AM Reporting Lab: [address] [address] Performing Lab: [address] [address] WBC 9.03 10*3/uL 4.50-11.00 RBC 4.16 10*6/uL [...] 0.0 0.0-0.0 NRBC, ABS 0.00 10*3/uL 0.00-0.00 Social History: Smoking Status (Most current) and [...] Facil ity Jan 19, 2023 12:24 PM [place]-TOBACCO NEVER USED [facility] Tobacco Use History This section includes a history of the smoking, or tobacco-related health factors, that were collected on or before the date of the Encounter. The data comes from the [place] facility where the Encounter took place. Date/Time Smoking Status/Tobacco Use Comment F acility Jan 15, 2021 11:00 AM VA-TOBACCO NEVER USED [facility] Advance Directives: All historical and current Section Date Range: From patient's date of to the date document was created. This section includes ALL of a patient's completed or amended [place] Advance and Rescinded Directives. The entries below indicate that a directive exists for the patient, but an actual copy is not included with this document. The data comes from all [place] facilities. Date Advance Directives Provider Source Jan 20, 2021 ADVANCE DIRECTIVE BENTON ARAUZ [facility] Encounter Notes: All associated encounter notes This section contains the clinical notes associated to the Encounter. Date/Time Encounter Note(s) Provider Source Mar 08, 2024 08:45 AM HBPC NOTE: LOCAL TITLE: HBPC PHYSICAL THERAPY NOTE STANDARD TITLE: HBPC NOTE DATE OF NOTE: MAR 08, 2024@08:45 ENTRY DATE: MAR 12, 2024@07:01:54 AUTHOR: RAMIN MENDIETA EXP COSIGNER: URGENCY: STATUS: COMPLETED [facility] Physical Therapy Note Date: 03/08/24 Time: 8:45 am Diagnosis: parkinsonism unspecified Treatment Diagnosis: As above, plus Active problems - Computerized Problem List is the source for the followin. Obstructive sleep apnea 2. Nephrolithiasis 3. Excessive salivation 4. HTN - Hypertension ([facility] [id number]) 5. Constipation 6. Under care of multiple [...] Gastroesophageal reflux disease 31. AF- Atrial Fibrillation ([facility] [id number]) 32. Parkinson's disease 33. Kidney Stone ([facility] [id number]) Patient identified by name and date of SUBJECTIVE: no complaints OBJECTIVE: PAIN: Prior to treatment - none After treatment - none If > 3/10, intervention - If > 3/10, provider notified - VITAL SIGNS: deferred FALLS: yes, see fall note TREATMENT: PT in the Home - repaired Michael Lift so that boom can now descend, required adjustment of a bolt at the pivot point of the boom. ASSESSMENT: Patient is a 73 year old with parkinsonsims unspecified who now has a fully working Michael Lift. WHOLE HEALTH WHOLE HEALTH EDUCATION Whole Health Education was provided. Patient was verbally educated on following Home Safety - safe use of Michael Lift Patient was verbally educated on following Durable Medical Equipment Safety - safe use of Michael Lift Home Oxygen (yes/no) - no If yes, patient was verbally educated on following Oxygen Safety - COACHING SKILLS Coaching or Motivational Interviewing skills used. VISIT INFORMATION Met with individual: In-person Length of Visit: 15 minutes PLAN Individual agreed to follow-up: In-person visit Follow-up will occur: as required or at least 1x/year /sharron/ RAMIN MENDIETA, PT, MS, ATP [facility] Physical Therapist Signed: 03/12/2024 07:07 RAMIN MENDIETA [facility]
--- OUTSIDE RECORDS SUMMARY | 2024-05-30 08:52 | XMS_ITS | Encounter Summary ---
Author Name [facility] [place] Organization [facility] [place] Address [address] [place] [id number] Care Team Providers Care [place] Technician Name Role Phone HUSEYIN LUIS FERNANDO Primary Care Provider Unavailabl e CHAPAMANDO TRACEY Unavailable Unavailable RAIVETricia, RAMIN Unavailable Unavailable FEISHILA, KALYAN Unavailable Unavailable GOLD, [...] ALT ION [id number] 1 Jun 20, 2017 [id number] [phone] EAMON OLIVIA ERT PATIENT MEDICARE (WNR) MEDICARE (M) PART A Jun 20, 2014 PART A [id number] EAMON OLIVIA ERT PATIENT MEDICARE (WNR) MEDICARE (M) PART B Jun 20, 2014 PART B [id number] EAMON OLIVIA ERT PATIENT MEDICARE (WNR) MEDICARE (M) PART A Jun 20, 2014 PART A [id number] EAMON OLIVIA ERT PATIENT MEDICARE (WNR) MEDICARE (M) PART B Jun 20, 2014 PART B [id number] EAMON OLIVIA ERT PATIENT OPTUM RX PRESCRIPT ION RX Jun 20, 2023 THPRX [id number] EAMON OLIVIA ERT PATIENT OPTUM RX PRESCRIPT ION RX Jun 20, 2022 THPRX [id number] EAMON OLIVIA ERT PATIENT OPTUM RX PRESCRIPT ION RX Jun 20, 2022 THPRX [id number] [phone] DAVON OLIVIA JR PATIENT [facility] TON MAR Jun 20, 2017 [id number] EAMON OLIVIA ERT PATIENT [facility] Jun 20, 2017 [id number] DAVON OLIVIA JR PATIENT [facility] PLAN [facility] TON PEÑ[facility] E Jun 20, 2017 [id number] [phone] DAVON OLIVIA JR PATIENT [facility] USP Jun 20, 2017 USP [id number] [phone] EAMON OLIVIA ERT PATIENT [facility] [place] Jun 20, 2023 [id number] EAMON OLIVIA ERT PATIENT Selected Encounter This section includes the information on record at [place] for the Encounter. Date/Time Encounter Type Encounter Description Reason Pro vider Source Mar 08, 2024 08:45 AM Outpatient Encounter HBPC - THERAPIST IHE Encounter Template Text not used by [place] Plan of Treatment: Future Appointments (+ 6 months) and Future Tests (+/- 45 days) The Plan of Treatment section includes future care activities for the patient from all [place] treatmentfacilities. This section includes future appointments and [...] REHAB MEDICIN E [facility] [place] [facility] Mar 22, 2024 08:00 AM AMBULATORY - MEDICINE [place] [facility] [place] [facility] Mar 22, 2024 01:00 PM AMBULATORY - NONE [facility] [place] [facility] Mar 27, 2024 02:30 PM AMBULATORY - MEDICINE [facility] C [facility] [place] [facility] Mar 29, 2024 11:00 AM AMBULATORY - REHAB MEDICIN E [facility] [place] [facility] Apr 12, 2024 11:00 AM AMBULATORY - REHAB MEDICIN E [facility] [place] [facility] Apr 26, 2024 09:00 AM AMBULATORY - MEDICINE [facility] C [facility] [place] [facility] Apr 26, 2024 11:00 AM AMBULATORY - REHAB MEDICIN E [facility] [place] [facility] Active, Pending, and Scheduled Orders [...] data comes from all [place] treatment facilities. Test Date/Time Test Type Test Details Facility Name Feb 29, 2024 07:27 AM Consult Order COMMUNITY CARE-GEC NON-SKILLED HOME HEALTH AIDE Cons Piece Meat Trimmer's Choice [facility] [place] [facility] Feb 29, 2024 01:44 PM Consult Order COMMUNITY CARE-SPEECH THERAPY Cons Piece Meat Trimmer's Choice [facility] [place] [facility] Apr 05, 2024 12:00 AM Laboratory - Chemi stry Order CBC AND DIFF (AUTO) BLOOD (LAV-BLOOD) SP [facility] [place] [facility] Apr 05, 2024 12:00 AM Laboratory - Chemi stry Order IRON & TIBC PANEL BLOOD (SST-SERUM) SP [facility] [facility] Apr 05, 2024 12:00 AM Laboratory - Chemi stry Order FERRITIN BLOOD (SST-SERUM) [facility] [place] [facility] Apr 05, 2024 12:00 AM Laboratory - Chemi stry Order BASIC METABOLIC PANEL (non-fasting) BLOOD (SST-SERUM) SP [facility] [place] [facility] Apr 05, 2024 12:00 AM Laboratory - Chemi stry Order OCCULT BLOOD FIT X1 SCREEN(IN-HOUSE) STOOL FECES SP [facility] Apr 05, 2024 09:28 AM Consult Order [facility]-NEUROLOGY Cons Piece Meat Trimmer's Choice [facility] Lab Results: +/- 30 days of the encounter This section includes the Chemistry and Hematology Lab Results on record with [place] for the patient. Radiology Reports and Pathology Reports are provided separately, in subsequent sections. Lab Results This section contains the Chemistry/Hematology Results that were resulted 30 days before or 30 daysafter the date of the Encounter. Date/Time Source Result Type Result - Unit Interpretation Reference Range Comment Mar 28, 2024 12:30 PM [facility] LIVER FUNCTION Specimen Type: SERUM No comment entered. Ordering Provider: LUIS FERNANDO FONTANEZ Report Released Date/Time: Dec 28, 2023 07:18 AM Reporting Lab: [address] [address] Performing Lab: [address] [address] PROTEIN,TOTAL 6.0 g/dL 6.0-8.3 ALBUMIN 3.2 g/dL L 3.5-5.0 ALKALINE PHOSPHATASE 72 U/L 40-150 AST 21 U/L 5-34 ALT <6 U/L BILIRUBIN, TOTAL 0.4 mg/dL 0.2-1.2 Mar 28, 2024 12:30 PM [facility] BASIC METABOLIC PANEL (non-fasting) Specimen Type: SERUM No comment entered. Ordering Provider: LUIS FERNANDO FONTANEZ A Report Released Date/Time: Dec 28, 2023 07:18 AM Reporting Lab: [address] [address] Performing Lab: [address] [address] UREA NITROGEN 21 mg/dL 7-25 GLUCOSE 98 mg/dL 65-100 SODIUM 139 mmol/L 135-145 POTASSIUM 3.4 mmol/L L 3.5-5.0 CHLORIDE 102 mmol/L 100-110 CO2 27 meq/L 20-30 CREATININE, Serum 0.88 mg/dL 0.50-1.40 eGFR(CKD-EPI 2020) 90 mL/min >60 Mar 28, 2024 12:30 PM [facility] CBC AND DIFF (AUTO) Specimen Type: BLOOD No comment entered. Ordering Provider: LUIS FERNANDO FONTANEZ Report Released Date/Time: Dec 28, 2023 07:18 AM Reporting Lab: [facility] [address] [facility] [address] Performing Lab: [facility] [address] [facility] [address] WBC 9.03 10*3/uL 4.50-11.00 RBC 4.16 10*6/uL [...] and tobacco- related health factors from the [place] facility where the Encounter took place. Current Smoking Status This section includes the most current smoking, or tobacco-related health factor, from the [place] facility where the Encounter took place. Date/Time Current Smoking Status Comment Raghu melchor Jan 19, 2023 12:24 PM VA-TOBACCO NEVER USED [facility] Tobacco Use History This section includes a history of the smoking, or tobacco-related health factors, that were collected on or before the date of the Encounter. The data comes from the [place] facility where the Encounter took place. Date/Time Smoking Status/Tobacco Use Comment F acility Jan 15, 2021 11:00 AM VA-TOBACCO NEVER USED [facility] Advance Directives: All historical and current Section Date Range: From patient's date of to the date document was created. This section includes ALL of a patient's completed or amended [place] Advance and Rescinded Directives. The entries below indicate that a directive exists for the patient, but an actual copy is not included with this document. The data comes from all [place] facilities. Date Advance Directives Provider Source Jan 20, 2021 ADVANCE DIRECTIVE BENTON ARAUZ [facility] Encounter Notes: All associated encounter notes This section contains the clinical notes associated to the Encounter. Date/Time Encounter Note(s) Provider Source Mar 08, 2024 08:45 AM NURSING FALL RISK ASSESSMENT NOTE: LOCAL TITLE: [facility] POST FALL ASSESSMENT NOTE STANDARD TITLE: NURSING FALL RISK ASSESSMENT NOTE DATE OF NOTE: MAR 08, 2024@08:45 ENTRY DATE: MAR 12, 2024@07:08:54 AUTHOR: RAMIN MENDIETA COSIGNER: URGENCY: STATUS: COMPLETED [facility] FALL ASSESSMENT NOTE Date of Fall: 03/06/24 Time of Fall: PM Route Sales Specialist: Kimberly Segura Fall was witnessed: Yes, by whom: Description of Fall: Where: In Hallway How: Patient walking with walker, knees buckled Injury: No Location: N/A Side: N/A Other Information Pertinent to Fall: N/A Level of Injury: 0 = No injury Symptoms Prior to Fall: none Assistive Device in Use at Time of Fall: walking device - walker Contributing Factors at time of fall: gait or imbalance Environmental Factors: none Contributing diagnosis to current fall: neurological (ALS, MS, Parkinson's) If fall occurred while HC/HBPC staff was providing direct patient care in the home, report on Joint Patient Safety Reporting Site (JPSR) found on [facility] Intranet home page. No, not applicable Is patient currently receiving PT/OT services: Yes Pt referred to PT/OT: Yes Patient Declines NO Interventions: PCP Notified, HBPC PSA Notified, Education was provided to patient and/or family regarding risk factors and prevention of future falls. Program Follow-up: Interdisciplinary Team reviews recent falls and modifies Patient's care plan as appropriate. Cable Television Installer (or designee) tracks all falls, observes trends, and modifies Falls Prevention Plan as needed. Fall data is reported to [facility] Patient Labview Programmer on a quarterly basis. /es/ RAMIN MENDIETA, PT, MS, ATP HB Physical Therapist Signed: 03/12/2024 07:11 Receipt Acknowledged By: 03/13/2024 12:32 /es/ DANIELLE FLORES OTR/Tricia [facility] OCCUPATIONAL THERAPIST 03/12/2024 11:59 /es/ AMANDO OHARA SUPERSONIC ENGINEER GEC/HB 03/15/2024 07:13 /es/ SPRING NEVES PT [facility] PHYSICAL THERAPIST 03/12/2024 07:23 /es/ JENNIFER SEGURA CONSTRUCTION SUPERINTENDENT PC ELIGIBILITY MANAGER 03/12/2024 08:11 /es/ LUIS FERNANDO CHIU [facility] NURSE PRACTITIONER [facility]
--- OUTSIDE RECORDS SUMMARY | 2024-05-30 08:53 | XMS_ITS | Encounter Summary ---
Author Name [facility] [place] Organization [facility] Address [address] [place] [id number] Care Team Providers Care Director Learning Services Name Role Phone HUSEYIN LUIS FERNANDO Primary [...] PRESCRIPT ION [id number] 1 Jun 20, 2017 [id number] [phone] EAMON OLIVIA ERT PATIENT MEDICARE (WNR) MEDICARE (M) PART A Jun 20, 2014 PART A [id number] EAMON OLIVIA ERT PATIENT MEDICARE (WNR) MEDICARE (M) PART B Jun 20, 2014 PART B [id number] EAMON OLIVIA ERT PATIENT MEDICARE (WNR) MEDICARE (M) PART A Jun 20, 2014 PART A [id number] [phone] EAMON OLIVIA ERT PATIENT MEDICARE (WNR) MEDICARE (M) PART B Jun 20, 2014 PART B [id number] EAMON OLIVIA ERT PATIENT OPTUM RX PRESCRIPT ION RX Jun 20, 2023 THPRX [id number] EAMON OLIVIA ERT PATIENT OPTUM RX PRESCRIPT ION RX Jun 20, 2022 THPRX [id number] EAMON OLIVIA ERT PATIENT OPTUM RX PRESCRIPT ION RX Jun 20, 2022 THPRX [id number] [phone] DAVON OLIVIA JR PATIENT [facility] MAR Jun 20, 2017 [id number] EAMON OLIVIA ERT PATIENT [facility] PLAN [facility] T[facility] PEÑA E Jun 20, 2017 [id number] [phone] DAVON OLIVIA JR PATIENT [facility] PLAN [facility] TON PE[facility] E Jun 20, 2017 [id number] [phone] DAVON OLIVIA JR PATIENT [facility] USP Jun 20, 2017 USP [id number] [phone] EAMON OLIVIA ERT PATIENT [facility] Jun 20, 2023 [id number] EAMON OLIVIA ERT PATIENT Selected Encounter This section includes the information on record at [place] for the Encounter. Date/Time Encounter Type Encounter Description Reason Provider Source Mar 22, 2024 01:00 PM PATIENT EDUCATION MATERIALS SLEEP MEDICINE ICD-10-CM G47.33 Obstructive sleep apnea (adult) (pediatric) RIGO TSANG IHE Encounter Template Text not used by [place] Assessments - Encounter Diagnoses This section includes the primary and secondary diagnoses documented for the Encounter. Date/Time Primary/Secondary Diagnosis Diagnosis Name Provider Source Mar 22, 2024 12:50 PM PRIMARY Obstructive sleep apnea (adult) (pediatric) RIGO TASNG [place] [facility] [place] [facility] Plan of Treatment: Future Appointments (+ [...] 20 appointments. The data comes from all [facility] facilities. Appointment Date/Time Appointment Type Appointme nt Facility Name Mar 27, 2024 02:30 PM AMBULATORY - MEDICINE [place] [facility] Mar 29, 2024 11:00 AM AMBULATORY - REHAB MEDICIN E [place] [facility] [place] [facility] Apr 12, 2024 11:00 AM AMBULATORY - REHAB MEDICIN E [place] [facility] [place] [facility] Apr 26, 2024 09:00 AM AMBULATORY - MEDICINE [facility] NTRL [facility] [place] [facility] Apr 26, 2024 11:00 AM AMBULATORY - [facility] Active, Pending, and Scheduled Orders This [...] 29, 2024 07:27 AM Consult Order [facility]-G[facility] NON-SKILLED HOME HEALTH AIDE Cons I O Psychologist's Choice [facility] Feb 29, 2024 01:44 PM Consult Order [facility]-SPEECH THERAPY Cons I O Psychologist's Choice [facility] Apr 05, 2024 12:00 AM Laboratory - Chemi stry Order CBC AND DIFF (AUTO) BLOOD (LAV-BLOOD) [facility] Apr 05, 2024 12:00 AM Laboratory - Chemi stry Order IRON & TIBC PANEL BLOOD (SST-SERUM) SP [facility] WSN [facility] Apr 05, 2024 12:00 AM Laboratory - Chemi stry Order FERRITIN BLOOD (SST-SERUM) [facility] Apr 05, 2024 12:00 AM Laboratory - Chemi stry Order BASIC METABOLIC PANEL (non-fasting) BLOOD (SST-SERUM) [facility] Apr 05, 2024 12:00 AM Laboratory - Chemi stry Order OCCULT BLOOD FIT X1 SCREEN(IN-HOUSE) STOOL FECES [facility] Apr 05, 2024 09:28 AM Consult Order [facility]-NEUROLOGY Cons I O Psychologist's Choice [facility] May 01, 2024 12:00 AM Laboratory - Chemi stry Order CBC AND DIFF (AUTO) BLOOD (LAV-BLOOD) [facility] May 01, 2024 12:00 AM Laboratory - Chemi stry Order IRON & TIBC PANEL BLOOD (SST-SERUM) [facility] May 01, 2024 12:00 AM Laboratory - Chemi stry Order FERRITIN BLOOD (SST-SERUM) [facility] Lab Results: +/- 30 days of the encounter This section includes the Chemistry and Hematology Lab Results on record with [place] for the patient. Radiology Reports and Pathology Reports are provided separately, in subsequent sections. Lab Results This section contains the Chemistry/Hematology Results that were resulted 30 days before or 30 daysafter the date of the Encounter. Date/Time Source Result Type Result - Unit Interpretation Reference Range Comment Mar 28, 2024 12:30 PM [facility] LIVER FUNCTION Specimen Type: SERUM No comment entered. Ordering Provider: LUIS FERNANDO FONTANEZ Report Released Date/Time: Dec 28, 2023 07:18 AM Reporting Lab: [facility] [address] [facility] [address] Performing Lab: [address] [address] PROTEIN,TOTAL 6.0 g/dL 6.0-8.3 ALBUMIN 3.2 g/dL L 3.5-5.0 ALKALINE PHOSPHATASE 72 U/L 40-150 AST 21 U/L 5-34 ALT <6 U/L BILIRUBIN, TOTAL 0.4 mg/dL 0.2-1.2 Mar 28, 2024 12:30 PM [facility] BASIC METABOLIC PANEL (non-fasting) Specimen Type: SERUM No comment entered. Ordering Provider: LUIS FERNANDO FONTANEZ A Report Released Date/Time: Dec 28, 2023 07:18 AM Reporting Lab: [facility] [address] [facility] [address] Performing Lab: [address] [address] UREA NITROGEN 21 mg/dL 7-25 GLUCOSE 98 mg/dL 65-100 SODIUM 139 mmol/L 135-145 POTASSIUM 3.4 mmol/L L 3.5-5.0 CHLORIDE 102 mmol/L 100-110 CO2 27 meq/L 20-30 CREATININE, Serum 0.88 mg/dL 0.50-1.40 eGFR(CKD-EPI 2020) 90 mL/min >60 Mar 28, 2024 12:30 PM [facility] CBC AND DIFF (AUTO) Specimen Type: BLOOD No comment entered. Ordering Provider: LUIS FERNANDO FONTANEZ A Report Released Date/Time: Dec 28, 2023 07:18 AM Reporting Lab: [facility] [address] [facility] [address] Performing Lab: [address] [address] WBC 9.03 10*3/uL 4.50-11.00 RBC 4.16 10*6/uL [...] 19, 2023 12:24 PM VA-TOBACCO NEVER USED [facility] Tobacco Use History This section includes a history of the smoking, or tobacco-related health factors, that were collected on or before the date of the Encounter. The data comes from the [place] facility where the Encounter took place. Date/Time Smoking Status/Tobacco Use Comment F acility Jan 15, 2021 11:00 AM VA-TOBACCO NEVER USED [facility] Advance Directives: All historical and current [...] Encounter. Date/Time Encounter Note(s) Provider Source Mar 22, 2024 12:47 PM RESPIRATORY THERAPY CONSULT: LOCAL TITLE: CONSULT REPORT/RESPIRATORY THERAPY STANDARD TITLE: RESPIRATORY THERAPY CONSULT DATE OF NOTE: MAR 22, 2024@12:47 ENTRY DATE: MAR 22, 2024@12:47:44 AUTHOR: RIGO TSANG COSIGNER: URGENCY: STATUS: COMPLETED [facility] Video Connect (VVC) Standard Documentation VVC Clinician Resources Only: E911 (Emergency Call Relay Center): [phone] National Veterans Crisis Line - 988 then press #1. CWJordi Suicide Coordinator [phone], Ext. [phone]; Back-up Ext. [phone] [place] Police, Nahomy [place]O [phone] Introduction: Visit is being conducted by [place] Video Connect. [place] identified with 2 identifiers: [X] Full Name [X] Date of [ ] VA ID Card Emergency Plan: [place] confirmed and/or provided the following information in case of emergency or technology failure. PATIENT PHONE - PHONE NUMBER [CELLULAR] - NONE FOUND Is patient phone number correct, if not, enter below: [place]'s phone number: DAVON OLIVIA JR [address], [place], [address] 's present location and address for appointment: as listed [place]'s emergency contact name and phone number: as listed reported that location is private and safe: Yes Informed Consent: informed of the risks and benefits of Telehealth video care. [place] has the right to refuse video services. If refuses video visit, a [id number] visit will be scheduled. verbalized consent for this video visit: Yes provided consent for any other persons present for visit: Yes If yes, who and relationship to patient: Tory Secure visit: Visit was locked for security and privacy:Yes diagnosed with sleep apnea had VVC visit to discuss recommendations from sleep specialist. [place] was offered and is agreeable to VVC visit. [place] had a VA HST on 01/04/2024 and has an HST-ANTONY 7.6 with recommendations from VACT sleep specialist for APAP 5-20 cmH2O. We discussed sleep study findings and the dangers of untreated sleep apnea. [place] is agreeable to begin therapy. A ResMed Airsense 11 set to APAP 5-20 cmH2O with F20 large mask and supplies. gives consent for appointment. Equipment properly set and sized during this phone call will be sent to 's address, phone and email confirmed Time: [facility] to call and schedule follow-up [place] will need to purchase distilled water [place] will be sent e-mail link for VVC visit [place] will receive an invitation to Yoshi /sharron/ RIGO TSANG RESPIRATORY THERAPIST Signed: 03/22/2024 13:26 Receipt Acknowledged By: 03/23/2024 15:05 /sharron/ [facility]O [facility]
--- OUTSIDE RECORDS SUMMARY | 2024-05-30 08:53 | XMS_ITS ---
Author Name [place] Organization [place] Address [address] [place] [address] Care Team Providers Care Commodity Director Name Role Phone LUIS FERNANDO GARCIA Primary [...] ALT ION [id number] 1 Jun 20, 2017 [id number] EAMON OLIVIA ERT PATIENT MEDICARE (WNR) MEDICARE (M) PART A Jun 20, 2014 PART A [id number] EAMON OLIVIA ERT PATIENT MEDICARE (WNR) MEDICARE (M) PART B Jun 20, 2014 PART B [id number] EAMON OLIVIA ERT PATIENT MEDICARE (WNR) MEDICARE (M) PART A Jun 20, 2014 PART A [id number] EAMON OLIVIA ERT PATIENT MEDICARE (WNR) MEDICARE (M) PART B Jun 20, 2014 PART B [id number] EAMON OLIVIA ERT PATIENT OPTUM RX PRESCRIPT ION RX Jun 20, 2023 THPRX [id number] EAMON OLIVIA ERT PATIENT OPTUM RX PRESCRIPT ION RX Jun 20, 2022 THPRX [id number] EAMON OLIVIA ERT PATIENT OPTUM RX PRESCRIPT ION RX Jun 20, 2022 THPRX [id number] DAVON OLIVIA JR PATIENT [facility] TON MAR Jun 20, 2017 [id number] [phone] EAMON OLIVIA ERT PATIENT [facility] PLAN [facility] TON PEÑA E Jun 20, 2017 [id number] DAVON OLIVIA JR PATIENT [facility] PLAN [facility] TON PEÑA E Jun 20, 2017 [id number] DAVON OLIVIA JR PATIENT [facility] USP Jun 20, 2017 USP [id number] EAMON OLIVIA ERT [facility] Jun 20, 2023 [id number] EAMON OLIVIA ERT PATIENT Selected Encounter This section includes the information on record at [place] for the Encounter. Date/Time Encounter Type Encounter Description Reason Pro vider Source Mar 16, 2024 09:46 AM Outpatient Encounter [facility] PHYSIC EXTND(ASSEMBLER INSTALLER STRUCTURES,SECURITY AUDITOR,PA) IHE Encounter Template Text not used by [place] Plan of Treatment: Future Appointments (+ 6 months) and Future Tests (+/- 45 days) The Plan of Treatment section includes future care activities for the patient from all [place] treatmentfacilities. This section includes future appointments and future orders which are active, pending or scheduled. Future Appointments This section includes appointments that were scheduled to occur 6 months from the date of the Encounter, up to a maximum of 20 appointments. The data comes from all [place] treatment facilities. Appointment Date/Time Appointment Type Appointme nt Facility Name Mar 22, 2024 08:00 AM AMBULATORY - MEDICINE [facility] Mar 22, 2024 01:00 PM AMBULATORY - NONE [facility] Mar 27, 2024 02:30 PM AMBULATORY - MEDICINE [facility] [place] [facility] [facility] Mar 29, 2024 11:00 AM AMBULATORY - REHAB MEDICIN E [facility] [place] [facility] Apr 12, 2024 11:00 AM AMBULATORY - REHAB MEDICIN E [facility] [place] [facility] Apr 26, 2024 09:00 AM AMBULATORY - MEDICINE [facility] [place] [facility] Apr 26, 2024 11:00 AM AMBULATORY - REHAB MEDICIN E [facility] [facility] Active, Pending, and [...] COMMUNITY CARE-GEC NON-SKILLED HOME HEALTH AIDE Cons Manager [place] [facility] Feb 29, 2024 01:44 PM Consult Order COMMUNITY CARE-SPEECH THERAPY Cons Manager [place] [facility] Apr 05, 2024 12:00 AM Laboratory - Chemi stry Order CBC AND DIFF (AUTO) BLOOD (LAV-BLOOD) [facility] [place] [facility] Apr 05, 2024 12:00 AM Laboratory - Chemi stry Order IRON & TIBC PANEL BLOOD (SST-SERUM) SP [facility] [place] [facility] Apr 05, 2024 12:00 AM Laboratory - Chemi stry Order FERRITIN BLOOD (SST-SERUM) [facility] [place] [facility] Apr 05, 2024 12:00 AM Laboratory - Chemi stry Order BASIC METABOLIC PANEL (non-fasting) BLOOD (SST-SERUM) [facility] Apr 05, 2024 12:00 AM Laboratory - Chemi stry Order OCCULT BLOOD FIT X1 SCREEN(IN-HOUSE) STOOL FECES SP [facility] Apr 05, 2024 09:28 AM Consult Order [facility]-NEUROLOGY Cons Manager [place] [facility] Lab Results: +/- 30 days of [...] Range Comment Mar 28, 2024 12:30 PM [facility] LIVER FUNCTION Specimen Type: SERUM No comment entered. Ordering Provider: LUIS FERNANDO GARCIA A Report Released Date/Time: Dec 28, 2023 07:18 AM Reporting Lab: [address] [address] Performing Lab: [address] [address] PROTEIN,TOTAL 6.0 g/dL 6.0-8.3 ALBUMIN 3.2 g/dL L 3.5-5.0 ALKALINE PHOSPHATASE 72 U/L 40-150 AST 21 U/L 5-34 ALT <6 U/L BILIRUBIN, TOTAL 0.4 mg/dL 0.2-1.2 Mar 28, 2024 12:30 PM [facility] BASIC METABOLIC PANEL (non-fasting) Specimen Type: SERUM No comment entered. Ordering Provider: LUIS FERNANDO GARCIA A Report Released Date/Time: Dec 28, 2023 07:18 AM Reporting Lab: [address] [address] Performing Lab: [address] [address] UREA NITROGEN 21 mg/dL 7-25 GLUCOSE 98 mg/dL 65-100 SODIUM 139 mmol/L 135-145 POTASSIUM 3.4 mmol/L L 3.5-5.0 CHLORIDE 102 mmol/L 100-110 CO2 27 meq/L 20-30 CREATININE, Serum 0.88 mg/dL 0.50-1.40 eGFR(CKD-EPI 2020) 90 mL/min >60 Mar 28, 2024 12:30 PM [facility] CBC AND DIFF (AUTO) Specimen Type: BLOOD No comment entered. Ordering Provider: LUIS FERNANDO GARCIA Report Released Date/Time: Dec 28, 2023 07:18 AM Reporting Lab: [facility] [address] [facility] [address] Performing Lab: [facility] [address] [facility] [address] WBC 9.03 10*3/uL 4.50-11.00 RBC 4.16 10*6/uL [...] 20, 2021 ADVANCE DIRECTIVE BENTON ARAUZ ELZA Lora Ginna [facility] Encounter Notes: All associated encounter notes This section contains the clinical notes associated to the Encounter. Date/Time Encounter Note(s) Provider Source Mar 16, 2024 09:46 AM [facility] NOTE: LOCAL TITLE: [facility] HOSPITAL NOTIFICATION STANDARD TITLE: HB NOTE DATE OF NOTE: MAR 16, 2024@09:46 ENTRY DATE: MAR 16, 2024@09:46:52 AUTHOR: LUIS FERNANDO GARCIA EXP COSIGNER: URGENCY: STATUS: COMPLETED clinical trials data coordinator: Jennifer Segura Provider: Luis Fernando Garcia APRN Reason for Admission: Fever Facility Admitted to: [facility] Date of Admission: Feb Date of Discharge: Feb Covid-19 Testing Performed: Unknown Current Status of Patient: Home Is [facility] providing care in the home: NoNo Request for records made to Right : Comments: spiked a temperature of 100.[address] Soares urology office BP 170/[address] Soares they went to ED, he had X ray of abdomen uretal stent in place, he did have hematuria. He was not placed on antibiotics, WBC was 10.6, they are waiting for urine culture. No med changes. Did not get admitted was in ED at 530 pm and out on 03/16 @ 3 am /sharron/ LUIS FERNANDO HICKEY-C HBDARSHAN NURSE PRACTITIONER Signed: 03/16/2024 09:49 Receipt Acknowledged By: 03/19/2024 06:18 /sharron/ [facility] HEMATOLOGY SPECIALIST [facility]/[place] 03/16/2024 15:01 /sharron/ JENNIFER SEGURA, REFRACTORY SPECIALIST [facility] TITLE I DIRECTOR LUIS FERNANDO GARCIA [place] [facility]
--- OUTSIDE RECORDS SUMMARY | 2024-05-30 08:53 | XMS_ITS | Encounter Summary ---
Author Name Department of [facility] [place] [facility] Address [address] [place] [address] Care Team Providers Care Marketing Strategy Manager Name Role Phone LUIS FERNANDO FONTANEZ Primary Care Provider Unavailabl e AMANDO OHARA Unavailable Unavailable RARAMIN KEYES Unavailable Unavailable FEISHILA, KALYAN Unavailable Unavailable KAMILAH MALCOLM Unavailable Unavailable [...] PRESCRIPT ION [id number] 1 Jun 20, 2017 [id number] EAMON OLIVIA ERT PATIENT MEDICARE (WNR) MEDICARE (M) PART A Jun 20, 2014 PART A [id number] EAMON OLIVIA ERT PATIENT MEDICARE (WNR) MEDICARE (M) PART B Jun 20, 2014 PART B [id number] [phone] EAMON OLIVIA ERT PATIENT MEDICARE (WNR) MEDICARE (M) PART A Jun 20, 2014 PART A [id number] [phone] EAMON OLIVIA ERT PATIENT MEDICARE (WNR) MEDICARE (M) PART B Jun 20, 2014 PART B [id number] EAMON OLIVIA ERT PATIENT OPTUM RX PRESCRIPT ION RX Jun 20, 2023 THPRX [id number] EAMON OLIVIA ERT PATIENT OPTUM RX PRESCRIPT ION RX Jun 20, 2022 THPRX [id number] [phone] EAMON OLIVIA ERT PATIENT OPTUM RX PRESCRIPT ION RX Jun 20, 2022 THPRX [id number] [phone] DAVON OLIVIA JR PATIENT [facility] MAR Jun 20, 2017 [id number] EAMON OLIVIA ERT PATIENT [facility] PLAN [facility] E Jun 20, 2017 [id number] DAVON OLIVIA JR PATIENT [facility] PL[facility] E Jun 20, 2017 [id number] DAVON OLIVIA JR PATIENT [facility] Jun 20, 2017 USP [id number] EAMON OLIVIA ERT PATIENT [facility] Jun 20, 2023 [id number] EAMON OLIVIA ERT PATIENT Selected Encounter This section includes the information on record at [place] for the Encounter. Date/Time Encounter Type Encounter Description Reason Provider Source Mar 15, 2024 10:00 AM ORAL FUNCTION THERAPY SPEECH-LANGUAGE PATHOLOGY ICD-10-CM G20.C Parkinsonism, unspecified AMARIS WESTFALL [place] Encounter Template Text not used by [place] Assessments - Encounter Diagnoses This section includes the primary and secondary diagnoses documented for the Encounter. Date/Time Primary/Secondary Diagnosis Diagnosis Name Provider Source Mar 15, 2024 06:36 PM PRIMARY Parkinsonism, unspecified AMARIS WESTFALL [facility] Plan of Treatment: Future Appointments (+ 6 [...] 20 appointments. The data comes from all [place] treatment facilities. Appointment Date/Time Appointment Type Appointme nt Facility Name Mar 22, 2024 08:00 AM AMBULATORY - MEDICINE [place] [facility] Mar 22, 2024 01:00 PM AMBULATORY - NONE [place] [facility] Mar 27, 2024 02:30 PM AMBULATORY - MEDICINE [place] [facility] Mar 29, 2024 11:00 AM AMBULATORY - REHAB MEDICIN E [facility] [place] [facility] Apr 12, 2024 11:00 AM AMBULATORY - REHAB MEDICIN E [facility] [place] [facility] Apr 26, 2024 09:00 AM AMBULATORY - MEDICINE [place] [facility] Apr 26, 2024 11:00 AM [facility] Active, Pending, and Scheduled Orders This section includes a listing of several types of active, pending, and scheduled orders, including clinic medications orders, diagnostic test orders, procedure orders and consult orders; where the start date of the order is 45 days before the date of the Encounter or 45 days after the date of theEncounter. The data comes from all [facility]. Test Date/Time Test Type Test Details Facility Name Feb 29, 2024 07:27 AM Consult Order [facility]ITY [facility]ARE-GEC NON-SKILLED HOME HEALTH AIDE Cons Account Technician's Choice [facility] Feb 29, 2024 01:44 PM Consult Order COMMUNITY CARE-SPEECH THERAPY Cons Account Technician's Choice [facility] [place] [place] [facility] Apr 05, 2024 12:00 AM Laboratory - Chemi stry Order CBC AND DIFF (AUTO) BLOOD (LAV[facility]BLOOD) [facility] [place] [facility] Apr 05, 2024 12:00 AM Laboratory - Chemi stry Order IRON & TIBC PANEL BLOOD (SST-SERUM) [facility] Apr 05, 2024 12:00 AM Laboratory - Chemi stry Order FERRITIN BLOOD (SST-SERUM) [facility] Apr 05, 2024 12:00 AM Laboratory - Chemi stry Order BASIC METABOLIC PANEL (non-fasting) BLOOD (SST-SERUM) SP [facility] Apr 05, 2024 12:00 AM Laboratory - Chemi stry Order OCCULT BLOOD FIT X1 SCREEN(IN-HOUSE) STOOL FECES SP [facility] Apr 05, 2024 09:28 AM Consult Order [facility]-NEUROLOGY Cons Account Technician's Choice [facility] Lab Results: +/- 30 days of the encounter This section includes the Chemistry and Hematology Lab Results on record with [place] for the patient. Radiology Reports and Pathology Reports are provided separately, in subsequent sections. Lab Results This section contains the Chemistry/Hematology Results that were resulted 30 days before or 30 daysafter the date of the Encounter. Date/Time Source Result Type Result - Unit Interpretation Reference Range Comment Mar 28, 2024 12:30 PM [facility] LIVER FUNCTION Specimen Type: SERUM No comment entered. Ordering Provider: LUIS FERNANDO FONTANEZ A Report Released Date/Time: Dec 28, 2023 07:18 AM Reporting Lab: [address] [address] Performing Lab: [address] [address] PROTEIN,TOTAL 6.0 g/dL 6.0-8.3 ALBUMIN 3.2 g/dL L 3.5-5.0 ALKALINE PHOSPHATASE 72 U/L 40-150 AST 21 U/L 5-34 ALT <6 U/L BILIRUBIN, TOTAL 0.4 mg/dL 0.2-1.2 Mar 28, 2024 12:30 PM [facility] BASIC METABOLIC PANEL (non-fasting) Specimen Type: SERUM No comment entered. Ordering Provider: LUIS FERNANDO FONTANEZ A Report Released Date/Time: Dec 28, 2023 07:18 AM Reporting Lab: [facility] [address] [facility] [address] Performing Lab: [address] [address] UREA NITROGEN 21 mg/dL 7-25 GLUCOSE 98 mg/dL 65-100 SODIUM 139 mmol/L 135-145 POTASSIUM 3.4 mmol/L L 3.5-5.0 CHLORIDE 102 mmol/L 100-110 CO2 27 meq/L 20-30 CREATININE, Serum 0.88 mg/dL 0.50-1.40 eGFR(CKD-EPI 2020) 90 mL/min >60 Mar 28, 2024 12:30 PM [facility] CBC AND DIFF (AUTO) Specimen Type: BLOOD No comment entered. Ordering Provider: LUIS FERNANDO FONTANEZ Report Released Date/Time: Dec 28, 2023 07:18 AM Reporting Lab: [facility] [address] [facility] [address] Performing Lab: [facility] [address] [facility] [address] WBC 9.03 10*3/uL 4.50-11.00 RBC 4.16 10*6/uL [...] ALL of a patient's completed or amended [place] Advance and Rescinded Directives. The entries below indicate that a directive exists for the patient, but an actual copy is not included with this document. The data comes from all [place] facilities. Date Advance Directives Provider Source Jan 20, 2021 ADVANCE DIRECTIVE BENTON ARAUZ [facility] Encounter Notes: All associated encounter notes This section contains the clinical notes associated to the Encounter. Date/Time Encounter Note(s) Provider Source Mar 15, 2024 10:16 AM TELEHEALTH NOTE: LOCAL TITLE: VA VIDEO CONNECT SPEECH STANDARD TITLE: TELEHEALTH NOTE DATE OF NOTE: MAR 15, 2024@10:16 ENTRY DATE: MAR 15, 2024@10:16:46 AUTHOR: AMARIS WESTFALL COSIGNER: URGENCY: STATUS: COMPLETED VA Video Connect (VVC) Standard Documentation VVC Clinician Resources Only: E911 (Emergency Call Relay Center): [phone] National Veterans Crisis Line - 988 then press #1. [facility] Suicide Coordinator [phone], Ext. [phone]; Back-up Ext. [phone] [place] Police, CHITRA Nahomy [phone] Introduction: Visit is being conducted by [place] [employer] Connect. identified with 2 identifiers: [X] Full Name [X] Date of [ ] VA ID Card Emergency Plan: Sergeant Bluff confirmed and/or provided the following information in case of emergency or technology failure. PATIENT PHONE - PHONE NUMBER [CELLULAR] - NONE FOUND Is patient phone number correct, if not, enter below: Sergeant Bluff's phone number: DAVON FREDERICK CORWIN JR [address] [place], [place], [address] 's present location and address for appointment: as listed Sergeant Bluff's emergency contact name and phone number: as listed Sergeant Bluff reported that location is private and safe: Yes Informed Consent: Sergeant Bluff informed of the risks and benefits of Telehealth video care. has the right to refuse video services. If refuses video visit, a ynoh-uj-jrea visit will be scheduled. verbalized consent for this video visit: Yes Sergeant Bluff provided consent for any other persons present for visit: Yes If yes, who and relationship to patient: Secure visit: Visit was locked for security and privacy:Yes S: Sergeant Bluff. is seen today for a treatment of dysphagia via VVC. Active problems - Computerized Problem List is the source for the followin. Obstructive sleep apnea 2. Nephrolithiasis 3. Excessive salivation 4. HTN - Hypertension ([facility] [id number]) 5. Constipation 6. Under care of multiple [...] Gastroesophageal reflux disease 31. AF- Atrial Fibrillation ([facility] [id number]) 32. Parkinson's disease 33. Kidney Stone ([facility] [id number]) Progress notes reviewed. Encounter time - 60 minutes O:The following was addressed during this encounter: 's spouse reports he has surgery scheduled 03/26/24, the MBSS is scheduled for 05/24/24 but they are trying to move it sooner, possibly when he is in the hospital for surgery. //EDUCATION - 1. Sergeant [place]uff. was educated on the importance of eating behavior to a safe swallow and encouraged to slow rate, take smaller sips/bites, chew solids well, and take pills in puree. A: with Parkinson's Disease with recent concerns re: swallowing. Dysphagia is a common symptom of PD. P: Consult placed for EMST 75Lite RTC 03/29/24 @ 1100 via [facility] MBSS pending to objectively assess the oral and pharyngeal stage of the swallow. /sharron/ AMARIS WESTFALL M.S.,CCC-PUBLIC INTERVIEWER SPEECH-LANGUAGE PATHOLOGIST Signed: 03/20/2024 17:33 Receipt Acknowledged By: 03/21/2024 08:18 /sharron/ EBONY ZIMMERMAN ADVANCED PURCHASING MANAGER/SALES AMARIS WESTFALL [facility]
--- OUTSIDE RECORDS SUMMARY | 2024-05-30 08:53 | XMS_ITS ---
Author Name Department of Vetera ns Affairs ([place]) Organization [facility] of [facility] [place] Address [address] [place] [address] Care Team Providers Care Oil Spreader Operator Name Role Phone LUIS FERNANDO FONTANEZ [...] Policy Steen's Name Patient's Relationship to Policy Tseen TOMMIE ALT ION [id number] 1 Jun 20, 2017 [id number] EAMON OLIVIA ERT PATIENT MEDICARE (WNR) MEDICARE (M) PART A Jun 20, 2014 PART A [id number] [phone] EAMON OLIVIA ERT PATIENT MEDICARE (WNR) MEDICARE (M) PART B Jun 20, 2014 PART B [id number] EAMON OLIVIA ERT PATIENT MEDICARE (WNR) MEDICARE (M) PART A Jun 20, 2014 PART A [id number] EAMON OLIVIA ERT PATIENT MEDICARE (WNR) MEDICARE (M) PART B Jun 20, 2014 PART B [id number] EAMON OLIVIA ERT PATIENT OPTUM RX PRESCRIPT ION RX Jun 20, 2023 THPRX [id number] EAMON OLIVIA ERT PATIENT OPTUM RX PRESCRIPT ION RX Jun 20, 2022 THPRX [id number] [phone] EAMON OLIVIA ERT PATIENT OPTUM RX PRESCRIPT ION RX Jun 20, 2022 THPRX [id number] DAVON OLIVIA JR PATIENT [facility] TON MAR Jun 20, 2017 [id number] EAMON OLIVIA ERT PATIENT [facility] PLAN [facility] TON PEÑA E Jun 20, 2017 [id number] DAVON OLIVIA JR PATIENT [facility] PLAN [facility] TON PEÑA E Jun 20, 2017 [id number] DAVON OLIVIA JR PATIENT [facility] USP Jun 20, 2017 USP [id number] EAMON OLIVIA ERT [facility] Jun 20, 2023 [id number] EAMON OLIVIA ERT PATIENT Selected Encounter This section includes the information on record at [place] for the Encounter. Date/Time Encounter Type Encounter Description Reason Pro vider Source Mar 22, 2024 01:27 PM Outpatient Encounter [facility] PHYSIC EXTND(GUN MECHANIC,OPTICAL INSTRUMENT INSPECTOR,PA) IHE Encounter Template Text not used by [...] 27, 2024 02:30 PM AMBULATORY - MEDICINE ME C N[facility]L [facility] Mar 29, 2024 11:00 AM AMBULATORY - REHAB MEDICIN E [facility] [place] [facility] Apr 12, 2024 11:00 AM AMBULATORY - REHAB MEDICIN E [facility] [place] [facility] Apr 26, 2024 09:00 AM AMBULATORY - MEDICINE ME C [place] [facility] Apr 26, 2024 11:00 AM AMBULATORY - REHAB MEDICIN E [place] CNTRL [place] [facility] Active, Pending, and Scheduled Orders This section includes a listing of several types of active, pending, and scheduled orders, including clinic medications orders, diagnostic test orders, procedure orders and consult orders; where the start date of the order is 45 days before the date of the Encounter or 45 days after the date of theEncounter. The data comes from all [place] treatment facilities. Test Date/Time Test Type Test Details Facility Name Feb 29, 2024 07:27 AM Consult Order [facility]ITY [facility] NON-SKILLED HOME HEALTH AIDE Cons Signal And Communications Maintainer's Choice [place] [facility] Feb 29, 2024 01:44 PM Consult Order [facility] Cons Signal And Communications Maintainer's Choice [facility] Apr 05, 2024 12:00 AM Laboratory - Chemi stry Order CBC AND DIFF (AUTO) BLOOD (LAV-BLOOD) SP [place] [facility] Apr 05, 2024 12:00 AM Laboratory - Chemi stry Order IRON & TIBC PANEL BLOOD (SST-SERUM) [facility] CN[facility]L [facility] Apr 05, 2024 12:00 AM Laboratory - Chemi stry Order FERRITIN BLOOD (SST-SERUM) SP ME [facility]L [facility] Apr 05, 2024 12:00 AM Laboratory - Chemi stry Order BASIC METABOLIC PANEL (non-fasting) BLOOD (SST-SERUM) [facility] CNTRL [facility] Apr 05, 2024 12:00 AM Laboratory - Chemi stry Order OCCULT BLOOD FIT X1 SCREEN(IN-HOUSE) STOOL FECES SP [facility] Apr 05, 2024 09:28 AM Consult Order COMMUNITY CARE-NEUROLOGY Cons Signal And Communications Maintainer's Choice [facility] May 01, 2024 12:00 AM Laboratory - Chemi stry Order CBC AND DIFF (AUTO) BLOOD (LAV-BLOOD) [facility] May 01, 2024 12:00 AM Laboratory - Chemi stry Order IRON & TIBC PANEL BLOOD (SST-SERUM) [facility] May 01, 2024 12:00 AM Laboratory - Chemi stry Order FERRITIN BLOOD (SST-SERUM) [facility] Lab Results: +/- 30 days of the encounter This section includes the Chemistry and Hematology Lab Results on record with [place] for the patient. Radiology Reports and Pathology Reports are provided separately, in subsequent sections. Lab Results This section contains the Chemistry/Hematology Results that were resulted 30 days before or 30 daysafter the date of the Encounter. Date/Time Source Result Type Result - Unit Interpretation Reference Range Comment Mar 28, 2024 12:30 PM [facility] LIVER FUNCTION Specimen Type: SERUM No comment entered. Ordering Provider: LUIS FERNANDO FONTANEZ Report Released Date/Time: Dec 28, 2023 07:18 AM Reporting Lab: [address] [address] Performing Lab: [address] [address] PROTEIN,TOTAL 6.0 g/dL 6.0-8.3 ALBUMIN 3.2 g/dL L 3.5-5.0 ALKALINE PHOSPHATASE 72 U/L 40-150 AST 21 U/L 5-34 ALT <6 U/L BILIRUBIN, TOTAL 0.4 mg/dL 0.2-1.2 Mar 28, 2024 12:30 PM [facility] BASIC METABOLIC PANEL (non-fasting) Specimen Type: SERUM No comment entered. Ordering Provider: LUIS FERNANDO FONTANEZ Report Released Date/Time: Dec 28, 2023 07:18 AM Reporting Lab: [address] [address] Performing Lab: [address] [place] [address] UREA NITROGEN 21 mg/dL 7-25 GLUCOSE 98 mg/dL 65-100 SODIUM 139 mmol/L 135-145 POTASSIUM 3.4 mmol/L L 3.5-5.0 CHLORIDE 102 mmol/L 100-110 CO2 27 meq/L 20-30 CREATININE, Serum 0.88 mg/dL 0.50-1.40 eGFR(CKD-EPI 2020) 90 mL/min >60 Mar 28, 2024 12:30 PM [facility] CBC AND DIFF (AUTO) Specimen Type: BLOOD No comment entered. Ordering Provider: LUIS FERNANDO FONTANEZ Report Released Date/Time: Dec 28, 2023 07:18 AM Reporting Lab: [address] [address] Performing Lab: [address] [address] WBC 9.03 10*3/uL 4.50-11.00 RBC 4.16 10*6/uL [...] 19, 2023 12:24 PM VA-TOBACCO NEVER USED [facility] Tobacco Use History This section includes a history of the smoking, or tobacco-related health factors, that were collected on or before the date of the Encounter. The data comes from the [place] facility where the Encounter took place. Date/Time Smoking Status/Tobacco Use Comment F acility Jan 15, 2021 11:00 AM VA-TOBACCO NEVER USED [facility] Advance Directives: All historical and current [...] Encounter Note(s) Provider Source Mar 22, 2024 01:27 PM ADMINISTRATIVE NOT E: LOCAL TITLE: FAX/MAIL RECEIVED STANDARD TITLE: ADMINISTRATIVE NOTE DATE OF NOTE: MAR 22, 2024@13:27 ENTRY DATE: MAR 22, 2024@13:27:51 AUTHOR: AMANDO OHARA COSIGNER: URGENCY: STATUS: COMPLETED Document Received On: Mar Document Type: Emergency Department Note Date of Service: February Facility and or Provider: [facility] Contact Information: PCP of Record: LUIS FERNANDO FONTANEZ Next visit with PCP: 03/27/2024 14:30 COM CARE-SPEECH THERAPY 03/29/2024 11:00 CWM/WPS/VVC/SPEECH Primary Care May keep copies of this document for up to 14 days and send the original for melissa /sharron/ AMANDO OHARA OPERATIONS LEAD MICHELE/MARILIN Signed: 03/22/2024 13:30 Receipt Acknowledged By: 03/22/2024 16:50 /sharron/ JENNIFER SEGURA BUSINESS PROCESS EXPERT [facility] SUPERVISOR PRESSING DEPARTMENT 03/22/2024 14:31 /sharron/ LUIS FERNANDO GASTON NURSE PRACTITIONER AMANDO OHARA CNTRL [facility]
--- OUTSIDE RECORDS SUMMARY | 2024-05-30 08:54 | XMS_ITS | Encounter Summary ---
Author Name [facility] Organization [facility] Address [address] [place] [id number] Care Team Providers Care Manager Cosmetics Name Role Phone HUSEYIN LUIS FERNANDO Primary Care Provider Unavailabl e CHAPAMANDO TRACEY Unavailable Unavailable RARAMIN KEYES Unavailable Unavailable SUNIL, [...] SIMS ION [id number] 1 Jun 20, 2017 [id number] EAMON OLIVIA ERT PATIENT MEDICARE (WNR) MEDICARE (M) PART A Jun 20, 2014 PART A [id number] EAMON OLIVIA ERT PATIENT MEDICARE (WNR) MEDICARE (M) PART B Jun 20, 2014 PART B [id number] [phone] EAMON OLIVIA ERT PATIENT MEDICARE (WNR) MEDICARE (M) PART A Jun 20, 2014 PART A [id number] EAMON OLIVIA ERT PATIENT MEDICARE (WNR) MEDICARE (M) PART B Jun 20, 2014 PART B [id number] EAMON OLIVIA ERT PATIENT OPTUM RX PRESCRIPT ION RX Jun 20, 2023 THPRX [id number] EAMON OLIVIA ERT PATIENT OPTUM RX PRESCRIPT ION RX Jun 20, 2022 THPRX [id number] [phone] EAMON OLIVIA ERT PATIENT OPTUM RX PRESCRIPT ION RX Jun 20, 2022 THPRX [id number] [phone] DAVON OLIVIA JR PATIENT [facility] TON MAR Jun 20, 2017 [id number] EAMON OLIVIA ERT PATIENT [facility] TON PEÑA E Jun 20, 2017 [id number] [phone] DAVON OLIVIA JR PATIENT [facility] TON PEÑ[facility] E Jun 20, 2017 [id number] DAVON OLIVIA JR PATIENT [facility] USP Jun 20, 2017 USP [id number] [phone] EAMON OLIVIA ERT PATIENT [facility] Jun 20, 2023 [id number] EAMON OLIVIA ERT PATIENT Selected Encounter This section includes the information on record at [place] for the Encounter. Date/Time Encounter Type Encounter Description Reason Provider Source Mar 29, 2024 10:02 AM QNHP OL DIG ASSMT&MGMT 5-10 CLINICAL PHARMACY ICD-10-CM Z04.89 Encounter for examination and observation for oth reasons JAKI HELM IHE Encounter Template Text not used by [facility] Assessments - Encounter Diagnoses This section includes the primary and secondary diagnoses documented for the Encounter. Date/Time Primary/Secondary Diagnosis Diagnosis Name Provider Source Mar 29, 2024 10:06 AM PRIMARY Encounter for examination and observation for oth reasons JAKI HELM [facility] Plan of Treatment: Future Appointments (+ 6 months) and Future Tests (+/- 45 days) The Plan of Treatment section includes future care activities for the patient from all [place] [facility]. This section includes future appointments and future orders which are active, pending or scheduled. Future Appointments This section includes appointments that were scheduled to occur 6 months from the date of the Encounter, up to a maximum of 20 appointments. The data comes from all [facility] facilities. Appointment Date/Time Appointment Type Appointme nt Facility Name Apr 12, 2024 11:00 AM AMBULATORY - REHAB MEDICIN E [place] [facility]L [facility] Apr 26, 2024 09:00 AM [facility] Apr 26, 2024 11:00 AM AMBULATORY - [facility] Active, Pending, and Scheduled Orders This section includes a listing of several types of active, pending, and scheduled orders, including clinic medications orders, diagnostic test orders, procedure orders and consult orders; where the start date of the order is 45 days before the date of the Encounter or 45 days after the date of theEncounter. The data comes from all [facility] facilities. Test Date/Time Test Type Test Details Facility Name Feb 29, 2024 07:27 AM Consult Order COMMUNITY CARE-GEC NON-SKILLED HOME HEALTH AIDE Cons Trenching Machine Operator's Choice [facility] Feb 29, 2024 01:44 PM Consult Order COMMUNITY [facility]CH THERAPY Cons Trenching Machine Operator's Choice [facility] Apr 05, 2024 12:00 AM Laboratory - Chemi stry Order CBC AND DIFF (AUTO) BLOOD (LAV-BLOOD) SP [facility] Apr 05, 2024 12:00 AM Laboratory - Chemi stry Order IRON & TIBC PANEL BLOOD (SST-SERUM) SP [facility] Apr 05, 2024 12:00 AM Laboratory - Chemi stry Order FERRITIN BLOOD (SST-SERUM) [facility] Apr 05, 2024 12:00 AM Laboratory - Chemi stry Order BASIC METABOLIC PANEL (non-fasting) BLOOD (SST-SERUM) [facility] Apr 05, 2024 12:00 AM Laboratory - Chemi stry Order OCCULT BLOOD FIT X1 SCREEN(IN-HOUSE) STOOL FECES SP [facility] Apr 05, 2024 09:28 AM Consult Order COMMUNITY CARE-NEUROLOGY Cons Trenching Machine Operator's Choice [facility] May 01, 2024 12:00 AM Laboratory - Chemi stry Order CBC AND DIFF (AUTO) BLOOD (LAV-BLOOD) SP [facility] May 01, 2024 12:00 AM Laboratory - Chemi stry Order IRON & TIBC PANEL BLOOD (SST-SERUM) SP [facility] May 01, 2024 12:00 AM Laboratory - Chemi stry Order FERRITIN BLOOD (SST-SERUM) SP [facility] Lab Results: +/- 30 days of [...] Range Comment Mar 28, 2024 12:30 PM [facility] LIVER FUNCTION Specimen Type: SERUM No comment entered. Ordering Provider: LUIS FERNANDO FONTANEZ Report Released Date/Time: Dec 28, 2023 07:18 AM Reporting Lab: [address] [address] Performing Lab: [address] [address] PROTEIN,TOTAL 6.0 g/dL 6.0-8.3 ALBUMIN 3.2 g/dL L 3.5-5.0 ALKALINE PHOSPHATASE 72 U/L 40-150 AST 21 U/L 5-34 ALT <6 U/L BILIRUBIN, TOTAL 0.4 mg/dL 0.2-1.2 Mar 28, 2024 12:30 PM [facility] BASIC METABOLIC PANEL (non-fasting) Specimen Type: SERUM No comment entered. Ordering Provider: LUIS FERNANDO FONTANEZ Report Released Date/Time: Dec 28, 2023 07:18 AM Reporting Lab: [address] [place] [address] Performing Lab: [facility] [address] [facility] [address] UREA NITROGEN 21 mg/dL 7-25 GLUCOSE 98 mg/dL 65-100 SODIUM 139 mmol/L 135-145 POTASSIUM 3.4 mmol/L L 3.5-5.0 CHLORIDE 102 mmol/L 100-110 CO2 27 meq/L 20-30 CREATININE, Serum 0.88 mg/dL 0.50-1.40 eGFR(CKD-EPI 2020) 90 mL/min >60 Mar 28, 2024 12:30 PM [facility] CBC AND DIFF (AUTO) Specimen Type: BLOOD No comment entered. Ordering Provider: LUIS FERNANDO FONTANEZ Report Released Date/Time: Dec 28, 2023 07:18 AM Reporting Lab: [facility] [address] [facility] [address] Performing Lab: [facility] [address] [facility] [address] WBC 9.03 10*3/uL 4.50-11.00 RBC 4.16 10*6/uL [...] this document. The data comes from all [place] facilities. Date Advance Directives Provider Source Jan 20, 2021 ADVANCE DIRECTIVE BENTON ARAUZ CNTRTricia [facility] Encounter Notes: All associated encounter notes This section contains the clinical notes associated to the Encounter. Date/Time Encounter Note(s) Provider Source Mar 29, 2024 10:02 AM PHARMACY MEDICATIO N MGT NOTE: LOCAL TITLE: PHARMACY ANTICOAGULATION NOTE STANDARD TITLE: PHARMACY MEDICATION MGT NOTE DATE OF NOTE: MAR 29, 2024@10:02 ENTRY DATE: MAR 29, 2024@10:02:46 AUTHOR: MCKENZIE HELM EXP COSIGNER: URGENCY: STATUS: COMPLETED PHARMACY ANTICOAGULATION NOTE Has ADDENDA ANTICOAGULATION DOAC MONITORING NOTE SUBJECTIVE: Patient identified through the DOAC population Management Tool based on the following criteria: [ ] Dosing Issue [ ] Critical Drug Interaction [ ] Cancer Treatment [ ] Active NSAID [ ] Labs Overdue [ ] Prosthetic Valve Replacement [ X ] Notable Lab Value [ ] Overdue for Refill [ ] Other: Comments: Pt flagged for review of recent labs, >2g drop in Hgb noted --------- OBJECTIVE: Indication for anticoagulation: [ X ] Atrial fibrilation [ ] Atrial flutter [ ] VTE (DVT or PE) [ ] Post-op DVT prophylaxis [ ] Other: Most recent lab values include the following: BLOOD Mar 28 Oct 09 May 26 Reference 2023 2023 2022 12:30 14:00 12:00 Units Ranges WBC 9.03 7.10 7.69 K/cmm 4.5 - 11 RBC 4.16 L 5.13 4.72 M/cmm 4.23 - 5.66 HGB 12.1 L 15.1 14.0 g/dL 12.8 - 17 HCT 37.7 L 45.5 43.4 % 39.2 - 50.4 MCV 90.6 88.7 91.9 fl 82 - 99 MCH 29.1 29.4 29.7 pg 26.2 - 32.6 MCHC 32.1 33.2 32.3 g/dL 30.8 - 35.1 RDW 13.3 12.9 12.4 % 12 - 16 PLT 279 281 296 K/cmm 140 - 360 Liver Function Tests Collection DT Spec AST ALT ALK DAGMAR ALBUMIN T BILI T. PROT 03/28/2024 12:30 SERUM 21 <6 72 3.2 L 0.4 6.0 10/10/2023 14:00 SERUM 21 14 77 3.6 0.4 7.0 HEIGHT: 65 in [165.1 cm] (04/26/2023 11:00) WEIGHT: 167 lb [75.75 kg] (04/26/2023 11:00) BMI: BMI: 27.8 CREATININE-EGFR 03/28/24 12:30 0.88 10/10/23 14:00 1.17 05/26/23 12:00 1.08 CRCL IBW: CrCl(est): 64.1 mL/min (Creat:0.88 03/28/24) CRCL ACT: 69.58 mL/min CRCL ADJ: 64.1 mL/min (03/28/24) ASSESSMENT: Pt with drop in H/H noted with recent labs. Notes reviewed. Pt with recent known hematuria, following with Urology. [facility] RN note reviewed for additional information (pt with recent cystoscopy lithotripsy with stent placement on Monday 03/26) Action required? [ X ] Yes [ ] No Comments: May consider repeat CBC for trending if appropriate. PLAN: [ ] No action required, dismiss flag [ X ] Will intervene: [ ] Patient education via phone/letter [ ] Schedule phone/[id number] follow up [ ] Lab ordered [ ] Discontinue interacting medication [ ] Discontinue DOAC [ ] Change to alternative DOAC [ ] Change DOAC dose [ X ] Notify PCP [ ] Consult cardiology/hematology [ ] Other: Time spent: 8 mins /sharron/ Mckenzie Helm, PharmD, [facility] Clinical Staff Educator Signed: 03/29/2024 10:06 Receipt Acknowledged By: 04/10/2024 14:34 /consuelo CHIU HB NURSE PRACTITIONER 04/10/2024 ADDENDUM STATUS: COMPLETED repeat CBC on 05/01 at RNCM visit. /consuelo CHIU HB NURSE PRACTITIONER Signed: 04/10/2024 14:43 MCKENZIE HELM [facility]
--- OUTSIDE RECORDS SUMMARY | 2024-05-30 08:54 | XMS_ITS | Encounter Summary ---
Author Name [facility] [place] Organization [facility] [place] Address [address] [place] [address] Care Team Providers Care Bowl Turner Name Role Phone LUIS FERNANDO FONTANEZ Primary [...] SIMS ION [id number] 1 Jun 20, 2017 [id number] EAMON OLIVIA ERT PATIENT MEDICARE (WNR) MEDICARE (M) PART A Jun 20, 2014 PART A [id number] [phone] EAMON OLIVIA ERT PATIENT MEDICARE (WNR) MEDICARE (M) PART B Jun 20, 2014 PART B [id number] EAMON OLIVIA ERT PATIENT MEDICARE (WNR) MEDICARE (M) PART A Jun 20, 2014 PART A [id number] [phone] EAMON OLIVIA ERT PATIENT MEDICARE (WNR) MEDICARE (M) PART B Jun 20, 2014 PART B [id number] [phone] EAMON OLIVIA ERT PATIENT OPTUM RX PRESCRIPT ION RX Jun 20, 2023 THPRX [id number] EAMON OLIVIA ERT PATIENT OPTUM RX PRESCRIPT ION RX Jun 20, 2022 THPRX [id number] EAMON OLIVIA ERT PATIENT OPTUM RX PRESCRIPT ION RX Jun 20, 2022 THPRX [id number] [phone] DAVON OLIVIA JR PATIENT [facility] MAR Jun 20, 2017 [id number] EAMON OLIVIA ERT PATIENT [facility] E Jun 20, 2017 [id number] DAVON OLIVIA JR PATIENT [facility] Jun 20, 2017 [id number] DAVON OLIVIA JR [facility] Jun 20, 2017 [facility] [id number] EAMON OLIVIA ERT PATIENT [facility] Jun 20, 2023 [id number] [phone] EAMON OLIVIA ERT PATIENT Selected Encounter This section includes the information on record at [place] for the Encounter. Date/Time Encounter Type Encounter Description Reason Provider Source Mar 22, 2024 12:00 PM PRO PHONE CALL 11-20 MIN TELEPHONE [facility] ICD-10-CM R31.9 Hematuria, unspecified RISING,JENNIFER L IHE Encounter Template Text not used by [place] Assessments - Encounter Diagnoses This section includes the primary and secondary diagnoses documented for the Encounter. Date/Time Primary/Secondary Diagnosis Diagnosis Name Provider Source Mar 22, 2024 12:00 PM PRIMARY Hematuria, unspecified RISING,HEATHE R L [place] [facility]TR [facility] [place] [facility] Mar 22, 2024 12:00 PM SECONDARY Essential (primary) hypertension RISING,HEATHE R L [place] [facility]TR [facility] [place] [facility] Plan of Treatment: Future Appointments (+ 6 months) and Future Tests (+/- 45 days) The Plan of Treatment section includes future care activities for the patient from all [place] [facility]. This section includes future appointments and future orders which are active, pending or scheduled. Future Appointments This section includes appointments that were scheduled to occur 6 months from the date of the Encounter, up to a maximum of 20 appointments. The data comes from all [facility] facilities. Appointment Date/Time Appointment Type Appointme nt Facility Name Mar 27, 2024 02:30 PM AMBULATORY - MEDICINE DE [facility] Mar 29, 2024 11:00 AM AMBULATORY - REHAB MEDICIN E [facility] Apr 12, 2024 11:00 AM AMBULATORY - REHAB MEDICIN E [place] [facility] [place] [facility] Apr 26, 2024 09:00 AM AMBULATORY - MEDICINE DE C [facility] Apr 26, 2024 11:00 AM [facility] Active, Pending, and Scheduled Orders This section includes a listing of several types of active, pending, and scheduled orders, including clinic medications orders, diagnostic test orders, procedure orders and consult orders; where the start date of the order is 45 days before the date of the Encounter or 45 days after the date of theEncounter. The data comes from all [facility]. Test Date/Time Test Type Test Details Facility Name Feb 29, 2024 07:27 AM Consult Order COMMUNITY CARE-GEC NON-SKILLED HOME HEALTH AIDE Cons [place] Oiler's Choice [facility] Feb 29, 2024 01:44 PM Consult Order COMMUNITY [facility]CH THERAPY Cons [place] Oiler's Choice [facility] [place] [facility] Apr 05, 2024 12:00 AM Laboratory - Chemi stry Order CBC AND DIFF (AUTO) BLOOD (LAV-BLOOD) [facility] Apr 05, 2024 12:00 AM Laboratory - Chemi stry Order IRON & TIBC PANEL BLOOD (SST-SERUM) [facility] Apr 05, 2024 12:00 AM Laboratory - Chemi stry Order FERRITIN BLOOD (SST-SERUM) SP [facility] Apr 05, 2024 12:00 AM Laboratory - Chemi stry Order BASIC METABOLIC PANEL (non-fasting) BLOOD (SST-SERUM) [facility] Apr 05, 2024 12:00 AM Laboratory - Chemi stry Order OCCULT BLOOD FIT X1 SCREEN(IN-HOUSE) STOOL FECES [facility] Apr 05, 2024 09:28 AM Consult Order [facility]-NEUROLOGY Cons [place] Oiler's Choice [facility] May 01, 2024 12:00 AM Laboratory - Chemi stry Order CBC AND DIFF (AUTO) BLOOD (LAV-BLOOD) [facility] May 01, 2024 12:00 AM Laboratory - Chemi stry Order IRON & TIBC PANEL BLOOD (SST-SERUM) [facility] May 01, 2024 12:00 AM Laboratory - Chemi stry Order FERRITIN BLOOD (SST-SERUM) [facility] Lab Results: +/- 30 days of the encounter This section includes the Chemistry and Hematology Lab Results on record with [place] for the patient. Radiology Reports and Pathology Reports are provided separately, in subsequent sections. Lab Results This section contains the Chemistry/Hematology Results that were resulted 30 days before or 30 daysafter the date of the Encounter. Date/Time Source Result Type Result - Unit Interpretation Reference Range Comment Mar 28, 2024 12:30 PM [facility] LIVER FUNCTION Specimen Type: SERUM No comment entered. Ordering Provider: LUIS FERNANDO FONTANEZ Report Released Date/Time: Dec 28, 2023 07:18 AM Reporting Lab: [facility] [address] [facility] [address] Performing Lab: [address] [address] PROTEIN,TOTAL 6.0 g/dL 6.0-8.3 ALBUMIN 3.2 g/dL L 3.5-5.0 ALKALINE PHOSPHATASE 72 U/L 40-150 AST 21 U/L 5-34 ALT <6 U/L BILIRUBIN, TOTAL 0.4 mg/dL 0.2-1.2 Mar 28, 2024 12:30 PM [facility] BASIC METABOLIC PANEL (non-fasting) Specimen Type: SERUM No comment entered. Ordering Provider: LUIS FERNANDO FONTANEZ A Report Released Date/Time: Dec 28, 2023 07:18 AM Reporting Lab: [facility] [address] [facility] [address] Performing Lab: [address] [address] UREA NITROGEN 21 mg/dL 7-25 GLUCOSE 98 mg/dL 65-100 SODIUM 139 mmol/L 135-145 POTASSIUM 3.4 mmol/L L 3.5-5.0 CHLORIDE 102 mmol/L 100-110 CO2 27 meq/L 20-30 CREATININE, Serum 0.88 mg/dL 0.50-1.40 eGFR(CKD-EPI 2020) 90 mL/min >60 Mar 28, 2024 12:30 PM [facility] CBC AND DIFF (AUTO) Specimen Type: BLOOD No comment entered. Ordering Provider: LUIS FERNANDO FONTANEZ A Report Released Date/Time: Dec 28, 2023 07:18 AM Reporting Lab: [facility] [address] [facility] [address] Performing Lab: [address] [address] WBC 9.03 10*3/uL 4.50-11.00 RBC 4.16 10*6/uL [...] and tobacco- related health factors from the [place] facility where the Encounter took place. Current Smoking Status This section includes the most current smoking, or tobacco-related health factor, from the [place] facility where the Encounter took place. Date/Time Current Smoking Status Comment Raghu melchor Jan 19, 2023 12:24 PM VA-TOBACCO NEVER USED [facility] Tobacco Use History This section includes a history of the smoking, or tobacco-related health factors, that were collected on or before the date of the Encounter. The data comes from the [place] facility where the Encounter took place. Date/Time Smoking Status/Tobacco Use Comment F acneri Jan 15, 2021 11:00 AM VA-TOBACCO NEVER USED [facility] Advance Directives: All historical and current Section Date Range: From patient's date of to the date document was created. This section includes ALL of a patient's completed or amended [place] Advance and Rescinded Directives. The entries below indicate that a directive exists for the patient, but an actual copy is not included with this document. The data comes from all [place] facilities. Date Advance Directives Provider Source Jan 20, 2021 ADVANCE DIRECTIVE BENTON ARAUZ [facility] Encounter Notes: All associated encounter notes This section contains the clinical notes associated to the Encounter. Date/Time Encounter Note(s) Provider Source Mar 22, 2024 04:56 PM PRIMARY CARE NOTE: LOCAL TITLE: POST DISCHARGE CONTACT STANDARD TITLE: PRIMARY CARE NOTE DATE OF NOTE: MAR 22, 2024@16:56 ENTRY DATE: MAR 22, 2024@16:56:30 AUTHOR: JENNIFER SEGURA EXP COSIGNER: URGENCY: STATUS: COMPLETED Location of Discharge: Emergency Department/Urgent Care Contact attempt: 1st identified by the following: Full Name Full Social Security Number (SSN) Contact made through telephone call Spoke with someone other than the : Spoke to: 's spouse Tory Reason for hospitalization/Emergenc y Department/Urgent Care visit: Fever /Caregiver states condition has improved. Symptoms to monitor for health maintenance: Confirmed no changes made to medications, equipment or supplies. Primary Diagnosis at Discharge: Hypertension. Per ER note resolved without any intervention. spiked a temperature of 100.[address] Soares urology office BP 170/93 Dr. Soares recommended to go to ED, he had X ray of abdomen ureteral stent in place, he did have hematuria. He was not placed on antibiotics, WBC was 10.6, they are waiting for urine culture. No med changes. Did not get admitted was in ED at 530 pm and out on 03/16 @ 3 am Follow up Service Referrals: No follow up service needs identified at this time RNCM to make home visit 03/28/24 [facility] PCP doesn't need a follow up not admitted to hospital seen in ER and discharged home. Future Appointments: Informed, discussed and confirmed next scheduled appointments Spoke to Spouse who states Marlin is doing well no fever, blood pressure is normal, neuros intact. still having hematuria. Appetite good. Fair fluid intake. Marlin had open cystoscopy lithotripsy with stent placement on Friday 03/02. Marlin having procedure next week 03/27 didn't get all stones. Reviewed to seek medical attn if develops fever >100.0, increased hematuria, abdominal/pelvic pain. RNCM to make home visit 03/28. Length of time spent: 12 minutes /sharron/ JENNIFER SEGURA HOT CAR CHARGER [facility] WORKDAY CONSULTANT Signed: 03/22/2024 17:23 JENNIFER SEGURA [facility]L [facility] [place] [facility]
--- OUTSIDE RECORDS SUMMARY | 2024-05-30 08:54 | XMS_ITS | Encounter Summary ---
Author Name [facility] [place] Organization [facility] [place] Address [address] [place] [address] Care Team Providers Care Call Center Recruiter Name Role Phone LUIS FERNANDO FONTANEZ Primary [...] ALT ION [id number] 1 Jun 20, 2017 [id number] EAMON OLIVIA ERT PATIENT MEDICARE (WNR) MEDICARE (M) PART A Jun 20, 2014 PART A [id number] EAMON OLIVIA ERT PATIENT MEDICARE (WNR) MEDICARE (M) PART B Jun 20, 2014 PART B [id number] [phone] EAMON OLIVIA ERT PATIENT MEDICARE (WNR) MEDICARE (M) PART A Jun 20, 2014 PART A [id number] EAMON OLIVIA ERT PATIENT MEDICARE (WNR) MEDICARE (M) PART B Jun 20, 2014 PART B [id number] EAMON OLIVIA ERT PATIENT OPTUM RX PRESCRIPT ION RX Jun 20, 2023 THPRX [id number] EAMON OLIVIA ERT PATIENT [facility] RX PRESCRIPT ION RX Jun 20, 2022 THPRX [id number] EAMON OLIVIA ERT PATIENT [facility] RX PRESCRIPT ION RX Jun 20, 2022 THPRX [id number] DAVON OLIVIA JR PATIENT [facility] Jun 20, 2017 [id number] [phone] EAMON OLIVIA ERT PATIENT [facility] Jun 20, 2017 [id number] DAVON OLIVIA JR PATIENT [facility] Jun 20, 2017 [id number] DAV[facility]IA JR [facility] Jun [facility], 2017 [facility] [id number] EAMON OLIVIA ERT PATIENT [facility] Jun 20, 2023 [id number] [phone] EAMON OLIVIA ERT PATIENT Selected Encounter This section includes the information on record at [place] for the Encounter. Date/Time Encounter Type Encounter Description Reason Provider Source Mar 28, 2024 07:00 PM ADMN SARSCOV2 VACC 1 DOSE [facility] Nursing (RN / LP) ICD-10-CM N20.0 Calculus of kidney RISING,JENNIFER L IHE Encounter Template Text not used by [place] Assessments - Encounter Diagnoses This section includes the primary and secondary diagnoses documented for the Encounter. Date/Time Primary/Secondary Diagnosis Diagnosis Name Provider Source Mar 28, 2024 07:45 PM PRIMARY Calculus of kidney RISING,JIE Clarke [facility] [place] [facility] Mar 28, 2024 07:45 PM SECONDARY Encounter for immunization RISING,JIE Clarke [place] [facility] [facility] Mar 28, 2024 07:45 PM SECONDARY Hematuria, unspecified RISING,GUILLERMOHE R L [place] [facility] [facility] Mar 28, 2024 07:45 PM SECONDARY Parkinson's dis w/o dyskinesia, w/o mention of fluctuations RISING,HEATHE R L [place] [facility] [place] [facility] Mar 28, 2024 07:45 PM SECONDARY Unspecified urinary incontinence RISING,GUILLERMOHE R L [facility] Plan of Treatment: Future Appointments (+ 6 [...] Appointment Type Appointme nt Facility Name Mar 29, 2024 11:00 AM AMBULATORY - REH[place] MEDICIN E [place] [facility] Apr 12, 2024 11:00 AM [facility] [place] [facility] Apr 26, 2024 09:00 AM AMBULATORY - MEDICINE [facility] Apr 26, 2024 11:00 AM AMBULATORY - [facility] Active, Pending, and Scheduled Orders This section includes a listing of several types of active, pending, and scheduled orders, including clinic medications orders, diagnostic test orders, procedure orders and consult orders; where the start date of the order is 45 days before the date of the Encounter or 45 days after the date of theEncounter. The data comes from all [place] treatment facilities. Test Date/Time Test Type Test Details Facility Name Feb 29, 2024 07:27 AM Consult Order COMMUNITY CARE-GEC NON-SKILLED HOME HEALTH AIDE Cons Community Health Counselor's Choice [facility] Feb 29, 2024 01:44 PM Consult Order COMMUNITY CARE-SPEECH THERAPY Cons Community Health Counselor's Choice [facility] Apr 05, 2024 12:00 AM Laboratory - Chemi stry Order CBC AND DIFF (AUTO) BLOOD (LAV-BLOOD) [facility] Apr 05, 2024 12:00 AM Laboratory - Chemi stry Order IRON & TIBC PANEL BLOOD (SST-SERUM) [facility] Apr 05, 2024 12:00 AM Laboratory - Chemi stry Order FERRITIN BLOOD (SST-SERUM) [facility] Apr 05, 2024 12:00 AM Laboratory - Chemi stry Order BASIC METABOLIC PANEL (non-fasting) BLOOD (SST-SERUM) [facility] Apr 05, 2024 12:00 AM Laboratory - Chemi stry Order OCCULT BLOOD FIT X1 SCREEN(IN-HOUSE) STOOL FECES [facility] Apr 05, 2024 09:28 AM Consult Order [facility] HOSPITALNE[facility]OLOGY Cons Community Health Counselor's Choice [facility] May 01, 2024 12:00 AM Laboratory - Chemi stry Order CBC AND DIFF (AUTO) BLOOD (LAV-BLOOD) [facility] May 01, 2024 12:00 AM Laboratory - Chemi stry Order IRON & TIBC PANEL BLOOD (SST-SERUM) [facility] May 01, 2024 12:00 AM Laboratory - Chemi stry Order FERRITIN BLOOD (SST-SERUM) [facility] Lab Results: +/- 30 days of [...] Range Comment Mar 28, 2024 12:30 PM [facility] LIVER FUNCTION Specimen Type: SERUM No comment entered. Ordering Provider: LUIS FERNANDO FONTANEZ Report Released Date/Time: Dec 28, 2023 07:18 AM Reporting Lab: [address] [address] Performing Lab: [facility] [address] [facility] [address] PROTEIN,TOTAL 6.0 g/dL 6.0-8.3 ALBUMIN 3.2 g/dL L 3.5-5.0 ALKALINE PHOSPHATASE 72 U/L 40-150 AST 21 U/L 5-34 ALT <6 U/L BILIRUBIN, TOTAL 0.4 mg/dL 0.2-1.2 Mar 28, 2024 12:30 PM [facility] BASIC METABOLIC PANEL (non-fasting) Specimen Type: SERUM No comment entered. Ordering Provider: LUIS FERNANDO FONTANEZ A Report Released Date/Time: Dec 28, 2023 07:18 AM Reporting Lab: [address] [address] Performing Lab: [address] [address] UREA NITROGEN 21 mg/dL 7-25 GLUCOSE 98 mg/dL 65-100 SODIUM 139 mmol/L 135-145 POTASSIUM 3.4 mmol/L L 3.5-5.0 CHLORIDE 102 mmol/L 100-110 CO2 27 meq/L 20-30 CREATININE, Serum 0.88 mg/dL 0.50-1.40 eGFR(CKD-EPI 2020) 90 mL/min >60 Mar 28, 2024 12:30 PM [facility] CBC AND DIFF (AUTO) Specimen Type: BLOOD No comment entered. Ordering Provider: LUIS FERNANDO FONTANEZ A Report Released Date/Time: Dec 28, 2023 07:18 AM Reporting Lab: [address] [address] Performing Lab: [address] [address] WBC 9.03 10*3/uL 4.50-11.00 RBC 4.16 10*6/uL [...] Pain Height Weight Body Mass Index Source Mar 28, 2024 07:02 PM 97.2 74 114/68 18 98 0 [place] [employer] [facility] Immunizations: All administered on the encounter date This section contains immunizations associated to the Encounter. Immunization Series Date Issued Reaction Comments COVID-19 (MODERNA), MRNA, LN P-S, PF, 50 MCG/0.5 ML (AGES 12+ YEARS) Mar 28, 2024 INFLUENZA, HIGH-DOSE, TRIVALENT, PF Mar 28 Social History: Smoking Status (Most current) and [...] 19, 2023 12:24 PM VA-TOBACCO NEVER USED [place] [employer] [facility] Tobacco Use History This section includes a history of the smoking, or tobacco-related health factors, that were collected on or before the date of the Encounter. The data comes from the [place] facility where the Encounter took place. Date/Time Smoking Status/Tobacco Use Comment Flex acility Jan 15, 2021 11:00 AM VA-TOBACCO NEVER USED [facility] Advance Directives: All historical and current [...] Jan 20, 2021 ADVANCE DIRECTIVE [facility] ARAUZ [facility] Encounter Notes: All associated encounter notes This section contains the clinical notes associated to the Encounter. Date/Time Encounter Note(s) Provider Source Mar 28, 2024 08:05 PM ADDENDUM: LOCAL TITLE: Addendum STANDARD TITLE: ADDENDUM DATE OF NOTE: MAR 28, 2024@20:05:37 ENTRY DATE: MAR 28, 2024@20:05:38 AUTHOR: JENNIFER SEGURA COSIGNER: URGENCY: STATUS: COMPLETED Spouse asking for multivitamin + minerals to come in liquid form. Thank you /sharron/ JENNIFER SEGURA DENTAL CERAMIST ASSISTANT [facility] PACKAGING INSPECTOR Signed: 03/28/2024 20:06 Receipt Acknowledged By: 03/30/2024 08:11 /sharron/ LUIS FERNANDO CHIU [facility] NURSE PRACTITIONER --- Original Document --- 03/28/24 [facility] RN PROGRESS NOTE: Nursing Progress Note [...] ACTIVE MOUTH FOUR TIMES A DAY 5) CATH,EXTERNAL EXTENDED WEAR SMALL H#[id number] USE 1 ACTIVE CATHETER URETHRAL ONCE DAILY 6) CHLORHEXIDINE GLUCONATE 0.12% MOUTHWASH RINSE 15ML BY ACTIVE MOUTH ONCE DAILY FOR INFLAMMATION OF THE GUMS - SWISH AND SPIT. DO NOT SWALLOW 7) CHOLECALCIF 25MCG (D3-1,000UNIT) TAB TAKE ONE TABLET ACTIVE BY MOUTH ONCE DAILY FOR VITAMIN SUPPLEMENTATION 8) DIAPER ADULT LARGE EXTRA ABSORBENT USE 1 BRIEF ACTIVE DIRECTED THREE TIMES A DAY INCONTINENCE 9) FAMOTIDINE 20MG TAB TAKE ONE TABLET BY MOUTH ONCE ACTIVE DAILY FOR STOMACH ACID 10) HYDROCHLOROTHIAZIDE 25MG TAB TAKE ONE TABLET BY MOUTH ACTIVE ONCE DAILY FOR HIGH BLOOD PRESSURE 11) HYDROPHILIC (EQV EUCERIN) TOP CREAM APPLY A LIBERAL ACTIVE AMOUNT TOPICALLY ONCE DAILY FOR DRY SKIN 12) INCONT LINER PREVAIL GUARDS #[id number] USE 1 LINER ACTIVE TOPICALLY TWO TIMES A DAY 13) INCONT LINER,MENS X-HVY SURECARE #[id number] USE 1 LINER ACTIVE TOPICALLY AT BEDTIME [...] MOUTH ACTIVE ONCE DAILY 23) UNDERPAD,BED ULTRASORB [id number] M#3136 USE 2 UNDERPADS ACTIVE TOPICALLY AT BEDTIME 24) URINARY DRAINAGE BAG BARD #[id number] USE 1 URINARY ACTIVE DRAINAGE BAG EVERY 7 DAYS Inactive Outpatient Medications Status 1) HYDROXYZINE HCL 10MG TAB TAKE ONE TABLET BY MOUTH AT BEDTIME Active Non-VA Medications Status 1) Non-VA DOCUSATE NA 100MG CAP 100MG BY MOUTH ONCE ACTIVE DAILY NEEDED 2) Non-VA LORAZEPAM 0.5MG TAB 0.5MG BY MOUTH ONCE DAILY ACTIVE NEEDED 27 Total Medications MEDICATION REVIEW Medication review completed [...] in patient's home at time of visit. [place] identified by: Full Name, Facial Recognition Length of visit in home: 45 MINUTES Problem addressed for this visit: Administer flu and covid vaccine, hematuria, caregiver stress burden Specimen(s) collected during this visit: RNKIRA faisal blood from Right AC with 23 gauge butterfly needle on first attempt without incident. Hebron tolerated well. Specimen dropped off at [facility] lab NURSING SUMMARY: RNCM made home visit for chronic disease management, c/v and c/p assessment, neuro assessment, gu assessment, draw labs, administered covid and flu vaccine. Hebron in the living sitting in his recliner, spouse present. Hebron s/p open cystoscopy lithotripsy with stent placement on Monday 03/26. Spouse reports md told her they weren't able to get all the stones and they are some chards left. stayed overnight and spouse brought him home yesterday afternoon. Spouse states Hebron was still having effects of the anesthesia last night. Very difficult to get him and out of the car. Full incontinence last night. This morning Hebron had small breakfast and some fluids. Spouse is pushing fluids. Hebron missed 2 days of Parkinson meds. in good spirits. Answering questions appropriately. Well groomed. Alert + oriented x 2. Pleasant and cooperative. Agreed to covid and flu vaccine. Physical therapist still working with . PT is reevaluating him on 03/30. Spouse reports cpap was delivered the other day but haven't had the chance to use it. Once Hebron is at his baseline spouse will start using cpap. Spouse requesting copy for the sleep study report/interpretation. has appt on 05/24 for swallowing test. Currently working with speech Therapist via [facility]. Hebron receiving 16 hours a week for [facility] services through [facility]. [facility] Isaiah is working out [employer]. He is coming later today to shower Hebron. Spouse manages medications. Reviewed meds. Spouse asking for multivitamin + minerals to come in liquid form. Spouse calling community neurologist 2 renew 3 medications. Hebron has neurologist appt 04/26. incontinent of urine. Using incontinence briefs with tabs a night. Spouse asking for incontinence brief pull ups for during the day. Will order. Sacrum area reddened. No open areas. Will order sacrum foam border dressings. RNCM administered covid and flu vaccine without incident. Tolerated well Spouse is exhausted and feeling overwhelmed. Teary eyed during visit. Talked about in-patient respite to give her a break. Not interested at this time. Talked about how she needs to take care of herself and needs down time or she will burn out. Blood Pressure: 114/68 (03/28/2024 19:02) Pulse: 74 (03/28/2024 19:02) Respiration: 18 (03/28/2024 19:02) Temperature: 97.2 F [36.2 C] (03/28/2024 19:02) Pain Score: 0 (03/28/2024 19:02) EXAMINATION: Lungs: Ls clear throughout. Resp easy and reg. Edema: PPP, No edema HR: Strong and reg. Denies chest pain, palpations, dizziness. Bowel/Bladder: Incontinent of urine. Intermittent Hematuria. uses quick change urine management wrap with oversized poise pad. Refer to nursing summary Occasional incontinence of stool. Denies diarrhea/constipation. Skin: Clean, dry and intact. No skin breakdown Home Safety FALLS NO INFECTIONS NO ER/HOSPITALIZATIONS- Planned procedure NO Teaching/goals: Refer to nursing summary. goal is to live at home safely with his as long as possible with assist from his and [facility], [facility] Patient verbalizes understanding to above and will call with any concerns or changes in condition. For emergent care call 911. Revisit: 05/01 for chronic disease management, neuro assessment, c/v and c/p assessment, med review, labs /ZACHARIAH RodriguezN [facility] PACKAGING INSPECTOR Signed: 03/28/2024 19:46 03/28/2024 ADDENDUM STATUS: COMPLETED Spouses Refuses shingles vaccine. Doesn't want Hebron to have this vaccine. updated clinical reminder. /ZACHARIAH RodriguezN [facility] PACKAGING INSPECTOR Signed: 03/28/2024 19:54 [facility] Mar 28, 2024 07:55 PM PREVENTIVE MEDICINE NURSING NOTE: LOCAL TITLE: CLINICAL REMINDERS/NURSING STANDARD TITLE: PREVENTIVE MEDICINE NURSING NOTE DATE OF NOTE: MAR 28, 2024@19:55 ENTRY DATE: MAR 28, 2024@19:55:21 AUTHOR: JENNIFER SEGURA EXP COSIGNER: URGENCY: STATUS: COMPLETED Sexual Orientation: The patient thinks of their sexual orientation as: Straight or Heterosexual /ZACHARIAH RodriguezN [facility] PACKAGING INSPECTOR Signed: 03/28/2024 19:55 JENN[facility]ER SE[facility]URAHOL[facility]ITALEstela [facility] Mar 28, 2024 07:50 PM PREVENTIVE MEDICINE NURSING NOTE: LOCAL TITLE: CLINICAL REMINDERS/NURSING STANDARD TITLE: PREVENTIVE MEDICINE NURSING NOTE DATE OF NOTE: MAR 28, 2024@19:50 ENTRY DATE: MAR 28, 2024@19:50:58 AUTHOR: JENNIFER SEGURA EXP COSIGNER: URGENCY: STATUS: COMPLETED Herpes Zoster (Shingles) Vaccine: The patient declines to receive the recommended dose of zoster (shingles) vaccine. Immunization: ZOSTER RECOMBINANT Refusal Reason: PATIENT DECISION Patient refuses all immunization(s) in the ZOSTER group Date Documented: 03/28/24 19:52 /consuelo SEGURA RN BSN [facility] PACKAGING INSPECTOR Signed: 03/28/2024 19:53 JENNIFER SEGURA [facility] Mar 28, 2024 07:48 PM PREVENTIVE MEDICINE NURSING NOTE: LOCAL TITLE: CLINICAL REMINDERS/NURSING STANDARD TITLE: PREVENTIVE MEDICINE NURSING NOTE DATE OF NOTE: MAR 28, 2024@19:48 ENTRY DATE: MAR 28, 2024@19:48:44 AUTHOR: JENNIFER SEGURA EXP COSIGNER: URGENCY: STATUS: COMPLETED COVID-19 Immunization: Moderna Monovalent (Spikevax) Administered: COVID-19 (MODERNA), MRNA, LNP-S, PF, 50 MCG/0.5 ML (AGES 12+ YEARS) Date Administered: Mar 28, 2024 19:00 Supervisor [employer] Workers: [employer] Lot: [id number] Exp Date: Nov 24, 2024 NDC: [id number] Admin Route/Site: INTRAMUSCULAR/RIGHT DELTOID Dosage: 0.5mL Vaccine Information Statement(s): COVID-19 MRNA VACCINE (12+ YRS) VACCINE VIS Apr 07, 2023 (BENINESE) Order By: Policy Administered By: Jennifer Segura Vaccine administered without complications. /consuelo SEGURA RN BSN [facility] PACKAGING INSPECTOR Signed: 03/28/2024 19:49 JENNIFER SEGURA [facility] Mar 28, 2024 07:46 PM PREVENTIVE MEDICINE NURSING NOTE: LOCAL TITLE: CLINICAL REMINDERS/NURSING STANDARD TITLE: PREVENTIVE MEDICINE NURSING NOTE DATE OF NOTE: MAR 28, 2024@19:46 ENTRY DATE: MAR 28, 2024@19:46:29 AUTHOR: JENNIFER SEGURA EXP COSIGNER: URGENCY: STATUS: COMPLETED Influenza Immunization: Influenza, High-Dose, Trivalent, Preservative Free (Fluzone-Syringe) Administered: INFLUENZA, HIGH-DOSE, TRIVALENT, PF Date Administered: Mar 28, 2024 19:00 Supervisor [employer] Workers: [employer] Lot: [id number] Exp Date: Dec 17, 2024 [facility] [place]: [phone] Admin Route/Site: INTRAMUSCULAR/LEFT DELTOID Dosage: 0.5mL Vaccine Information Statement(s): INFLUENZA(FLU) VACC(INACTIVATED OR RECOMBINANT)VIS Jan 23, 2021 (BENINESE) Order By: Policy Administered By: Jennifer Segura The Influenza Vaccine Information Statement (VIS) was reviewed with the patient/caregiver which lists the benefits and risks of the vaccine and the risks of not receiving the Influenza vaccine. The patient/caregiver denied any prior severe reaction to this vaccine or its components or a severe allergic reaction, such as anaphylaxis, to any vaccine or any injectable therapy. The patient/caregiver gave verbal consent to receive the vaccine. /sharron/ JENNIFER SEGURA RN BSN [facility] PACKAGING INSPECTOR Signed: 03/28/2024 19:48 Receipt Acknowledged By: 03/29/2024 08:39 /sharron/ KALYAN BARBER HB [employer] JENNIFER SEGURA [place] [facility] Mar 28, 2024 07:04 PM HB NURSING NOTE: LOCAL TITLE: [facility] RN PROGRESS NOTE STANDARD TITLE: HB NURSING NOTE DATE OF NOTE: MAR 28, 2024@19:04 ENTRY DATE: MAR 28, 2024@19:04:49 AUTHOR: JENNIFER SEGURA EXP COSIGNER: URGENCY: STATUS: [...] ACTIVE MOUTH FOUR TIMES A DAY 5) CATH,EXTERNAL EXTENDED WEAR SMALL H#9214 USE 1 ACTIVE CATHETER URETHRAL ONCE DAILY 6) CHLORHEXIDINE GLUCONATE 0.12% MOUTHWASH RINSE 15ML BY ACTIVE MOUTH ONCE DAILY FOR INFLAMMATION OF THE GUMS - SWISH AND SPIT. DO NOT SWALLOW 7) CHOLECALCIF 25MCG (D3-1,000UNIT) TAB TAKE ONE TABLET ACTIVE BY MOUTH ONCE DAILY FOR VITAMIN SUPPLEMENTATION 8) DIAPER ADULT LARGE EXTRA ABSORBENT USE 1 BRIEF ACTIVE DIRECTED THREE TIMES A DAY INCONTINENCE 9) FAMOTIDINE 20MG TAB TAKE ONE TABLET BY MOUTH ONCE ACTIVE DAILY FOR STOMACH ACID 10) HYDROCHLOROTHIAZIDE 25MG TAB TAKE ONE TABLET BY MOUTH ACTIVE ONCE DAILY FOR HIGH BLOOD PRESSURE 11) HYDROPHILIC (EQV EUCERIN) TOP CREAM APPLY A LIBERAL ACTIVE AMOUNT TOPICALLY ONCE DAILY FOR DRY SKIN 12) INCONT LINER PREVAIL GUARDS #[id number] USE 1 LINER ACTIVE TOPICALLY TWO TIMES A DAY 13) INCONT LINER,MENS [facility] #[id number] USE 1 LINER ACTIVE TOPICALLY AT BEDTIME [...] MOUTH ACTIVE ONCE DAILY 23) UNDERPAD,BED ULTRASORB [id number] M#6344 USE 2 UNDERPADS ACTIVE TOPICALLY AT BEDTIME 24) URINARY DRAINAGE BAG BARD #[id number] USE 1 URINARY ACTIVE DRAINAGE BAG EVERY 7 DAYS Inactive Outpatient Medications Status 1) HYDROXYZINE HCL 10MG TAB TAKE ONE TABLET BY MOUTH AT BEDTIME Active Non-VA Medications Status 1) Non-VA DOCUSATE NA 100MG CAP 100MG BY MOUTH ONCE ACTIVE DAILY NEEDED 2) Non-VA LORAZEPAM 0.5MG TAB 0.5MG BY MOUTH ONCE DAILY ACTIVE NEEDED 27 Total Medications MEDICATION REVIEW Medication review completed [...] in patient's home at time of visit. [place] identified by: Full Name, Facial Recognition Length of visit in home: 45 MINUTES Problem addressed for this visit: Administer flu and covid vaccine, hematuria, caregiver stress burden Specimen(s) collected during this visit: RNCM faisal blood from Right AC with 23 gauge butterfly needle on first attempt without incident. tolerated well. Specimen dropped off at [facility] lab NURSING SUMMARY: RNCM made home visit for chronic disease management, c/v and c/p assessment, neuro assessment, gu assessment, draw labs, administered covid and flu vaccine. Hebron in the living sitting in his recliner, spouse present. Hebron s/p open cystoscopy lithotripsy with stent placement on Monday 03/26. Spouse reports md told her they weren't able to get all the stones and they are some chards left. Hebron stayed overnight and spouse brought him home yesterday afternoon. Spouse states was still having effects of the anesthesia last night. Very difficult to get him and out of the car. Full incontinence last night. This morning Hebron had small breakfast and some fluids. Spouse is pushing fluids. Hebron missed 2 days of Parkinson meds. Hebron in good spirits. Answering questions appropriately. Well groomed. Alert + oriented x 2. Pleasant and cooperative. Agreed to covid and flu vaccine. Physical therapist still working with Hebron. PT is reevaluating him on 03/30. Spouse reports cpap was delivered the other day but haven't had the chance to use it. Once Hebron is at his baseline spouse will start using cpap. Spouse requesting copy for the sleep study report/interpretation. Hebron has appt on 05/24 for swallowing test. Currently working with speech Therapist via [facility]. receiving 16 hours a week for [facility] services through [facility]. 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 He is coming later today to shower . Spouse manages medications. Reviewed meds. Spouse asking for multivitamin + minerals to come in liquid form. Spouse calling community neurologist 2 renew 3 medications. Hebron has neurologist appt 04/26. Hebron incontinent of urine. Using incontinence briefs with tabs a night. Spouse asking for incontinence brief pull ups for during the day. Will order. Sacrum area reddened. No open areas. Will order sacrum foam border dressings. RNCM administered covid and flu vaccine without incident. Tolerated well Spouse is exhausted and feeling overwhelmed. Teary eyed during visit. Talked about in-patient respite to give her a break. Not interested at this time. Talked about how she needs to take care of herself and needs down time or she will burn out. Blood Pressure: 114/68 (03/28/2024 19:02) Pulse: 74 (03/28/2024 19:02) Respiration: 18 (03/28/2024 19:02) Temperature: 97.2 F [36.2 C] (03/28/2024 19:02) Pain Score: 0 (03/28/2024 19:02) EXAMINATION: Lungs: Ls clear throughout. Resp easy and reg. Edema: PPP, No edema HR: Strong and reg. Denies chest pain, palpations, dizziness. Bowel/Bladder: Incontinent of urine. Intermittent Hematuria. uses quick change urine management wrap with oversized poise pad. Refer to nursing summary Occasional incontinence of stool. Denies diarrhea/constipation. Skin: Clean, dry and intact. No skin breakdown Home Safety FALLS NO INFECTIONS NO ER/HOSPITALIZATIONS- Planned procedure NO Teaching/goals: Refer to nursing summary. [place]bron goal is to live at home safely with his as long as possible with assist from his and [facility], VENDING MACHINE COIN COLLECTOR Patient verbalizes understanding to above and will call with any concerns or changes in condition. For emergent care call 911. Revisit: 05/01 for chronic disease management, neuro assessment, c/v and c/p assessment, med review, labs /ZACHARIAH RodriguezN [facility] PACKAGING INSPECTOR Signed: 03/28/2024 19:46 03/28/2024 ADDENDUM STATUS: COMPLETED Spouses Refuses shingles vaccine. Doesn't want Hebron to have this vaccine. updated clinical reminder. /ZACHARIAH RodriguezN [facility] PACKAGING INSPECTOR Signed: 03/28/2024 19:54 03/28/2024 ADDENDUM STATUS: COMPLETED Spouse asking for multivitamin + minerals to come in liquid form. Thank you /ZACHARIAH RodriguezN [facility] PACKAGING INSPECTOR Signed: 03/28/2024 20:06 Receipt Acknowledged By: * AWAITING SIGNATURE * LUIS FERNANDO FONTANEZ [facility]
--- OUTSIDE RECORDS SUMMARY | 2024-05-30 08:55 | XMS_ITS ---
Author Name Department of [place] Organization [place] Address [address] [place] [address] Care Team Providers Care Easement Man Name Role Phone HUSEYIN LUIS FERNANDO Primary [...] PRESCRIPT ION [id number] 1 Jun 20, 2017 [id number] EAMON OLIVIA ERT PATIENT MEDICARE (WNR) MEDICARE (M) PART A Jun 20, 2014 PART A [id number] [phone] EAMON OLIVIA ERT PATIENT MEDICARE (WNR) MEDICARE (M) PART B Jun 20, 2014 PART B [id number] [phone] EAMON OLIVIA ERT PATIENT MEDICARE (WNR) MEDICARE (M) PART A Jun 20, 2014 PART A [id number] [phone] EAMON OLIVIA ERT PATIENT MEDICARE (WNR) MEDICARE (M) PART B Jun 20, 2014 PART B [id number] EAMON OLIVIA ERT PATIENT OPTUM RX PRESCRIPT ION RX Jun 20, 2023 THPRX [id number] [phone] EAMON OLIVIA ERT PATIENT OPTUM RX PRESCRIPT ION RX Jun 20, 2022 THPRX [id number] EAMON OLIVIA ERT PATIENT OPTUM RX PRESCRIPT ION RX Jun 20, 2022 THPRX [id number] [phone] DAVON OLVIIA JR PATIENT [facility] TON MAR Jun 20, 2017 [id number] EAMON OLIVIA ERT PATIENT [facility] PL[facility] TON PEÑA E Jun 20, 2017 [id number] DAVON OLIVIA JR [facility] E Jun 20, 2017 [id number] DAVON OLIVIA JR PATIENT [facility] USP Jun 20, 2017 USP [id number] [phone] EAMON OLIVIA ERT PATIENT [facility] Jun 20, 2023 [id number] EAMON OLIVIA ERT PATIENT Selected Encounter This section includes the information on record at [place] for the Encounter. Date/Time Encounter Type Encounter Description Reason Pro vider Source Apr 04, 2024 08:36 AM Outpatient Encounter COMM[facility]ITY [facility]ARE CONSULT IHE Encounter Template Text not used by VA Plan of Treatment: Future Appointments (+ 6 months) and Future Tests (+/- 45 days) The Plan of Treatment section includes future care activities for the patient from all [place] treatmentfacilities. This section includes future appointments and future orders which are active, pending or scheduled. Future Appointments This section includes appointments that were scheduled to occur 6 months from the date of the Encounter, up to a maximum of 20 appointments. The data comes from all [place] treatment facilities. Appointment Date/Time Appointment Type Appointme nt Facility Name Apr 12, 2024 11:00 AM AMBULATORY - REHAB MEDICIN E [place] [facility] [place] [facility] Apr 26, 2024 09:00 AM AMBULATORY - MEDICINE [facility] TRN [facility] Apr 26, 2024 11:00 AM AMBULATORY - [facility] E [facility] Active, Pending, and Scheduled Orders This section includes a listing of several types of active, pending, and scheduled orders, including clinic medications orders, diagnostic test orders, procedure orders and consult orders; where the start date of the order is 45 days before the date of the Encounter or 45 days after the date of theEncounter. The data comes from all [place] treatment facilities. Test Date/Time Test Type Test Details Facility Name Feb 29, 2024 07:27 AM Consult Order [facility] NON-SKILLED HOME HEALTH AIDE Cons Sausage Wrapper's Choice [facility] Feb 29, 2024 01:44 PM Consult Order [facility] Cons Sausage Wrapper's Choice [facility] Apr 05, 2024 12:00 AM Laboratory - Chemi stry Order CBC AND DIFF (AUTO) BLOOD (LAV-BLOOD) SP [facility] Apr 05, 2024 12:00 AM Laboratory - Chemi stry Order IRON & TIBC PANEL BLOOD (SST-SERUM) SP [facility] Apr 05, 2024 12:00 AM Laboratory - Chemi stry Order FERRITIN BLOOD (SST-SERUM) SP [facility] Apr 05, 2024 12:00 AM Laboratory - Chemi stry Order BASIC METABOLIC PANEL (non-fasting) BLOOD (SST-SERUM) SP [place] [facility] Apr 05, 2024 12:00 AM Laboratory - Chemi stry Order OCCULT BLOOD FIT X1 SCREEN(IN-HOUSE) STOOL FECES SP [facility] Apr 05, 2024 09:28 AM Consult Order [facility]-NEUROLOGY Cons Sausage Wrapper's Choice [place] [facility] May 01, 2024 12:00 AM Laboratory - Chemi stry Order CBC AND DIFF (AUTO) BLOOD (LAV-BLOOD) SP [facility] May 01, 2024 12:00 AM Laboratory - Chemi stry Order IRON & TIBC PANEL BLOOD (SST-SERUM) [facility] May 01, 2024 12:00 AM Laboratory - Chemi stry Order FERRITIN BLOOD (SST-SERUM) [facility] Lab Results: +/- 30 days of the encounter This section includes the Chemistry and Hematology Lab Results on record with [place] for the patient. Radiology Reports and Pathology Reports are provided separately, in subsequent sections. Lab Results This section contains the Chemistry/Hematology Results that were resulted 30 days before or 30 daysafter the date of the Encounter. Date/Time Source Result Type Result - Unit Interpretation Reference Range Comment Mar 28, 2024 12:30 PM [facility] LIVER FUNCTION Specimen Type: SERUM No comment entered. Ordering Provider: LUIS FERNANDO FONTANEZ A Report Released Date/Time: Dec 28, 2023 07:18 AM Reporting Lab: [address] [address] Performing Lab: [address] [address] PROTEIN,TOTAL 6.0 g/dL 6.0-8.3 ALBUMIN 3.2 g/dL L 3.5-5.0 ALKALINE PHOSPHATASE 72 U/L 40-150 AST 21 U/L 5-34 ALT <6 U/L BILIRUBIN, TOTAL 0.4 mg/dL 0.2-1.2 Mar 28, 2024 12:30 PM [facility] BASIC METABOLIC PANEL (non-fasting) Specimen Type: SERUM No comment entered. Ordering Provider: LUIS FERNANDO FONTANEZ A Report Released Date/Time: Dec 28, 2023 07:18 AM Reporting Lab: [address] [address] Performing Lab: [address] [address] UREA NITROGEN 21 mg/dL 7-25 GLUCOSE 98 mg/dL 65-100 SODIUM 139 mmol/L 135-145 POTASSIUM 3.4 mmol/L L 3.5-5.0 CHLORIDE 102 mmol/L 100-110 CO2 27 meq/L 20-30 CREATININE, Serum 0.88 mg/dL 0.50-1.40 eGFR(CKD-EPI 2020) 90 mL/min >60 Mar 28, 2024 12:30 PM [facility] CBC AND DIFF (AUTO) Specimen Type: BLOOD No comment entered. Ordering Provider: LUIS FERNANDO FONTANEZ Report Released Date/Time: Dec 28, 2023 07:18 AM Reporting Lab: [facility] [address] [facility] [address] Performing Lab: [facility] [address] [facility] [address] WBC 9.03 10*3/uL 4.50-11.00 RBC 4.16 10*6/uL [...] and tobacco- related health factors from the [place] facility where the Encounter took place. Current Smoking Status This section includes the most current smoking, or tobacco-related health factor, from the [place] facility where the Encounter took place. Date/Time Current Smoking Status Comment Raghu melchor Jan 19, 2023 12:24 PM VA-TOBACCO NEVER USED [facility] Tobacco Use History This section includes a history of the smoking, or tobacco-related health factors, that were collected on or before the date of the Encounter. The data comes from the [place] facility where the Encounter took place. Date/Time Smoking Status/Tobacco Use Comment F acility Jan 15, 2021 11:00 AM VA-TOBACCO NEVER USED [facility] Advance Directives: All historical and current Section Date Range: From patient's date of to the date document was created. This section includes ALL of a patient's completed or amended [place] Advance and Rescinded Directives. The entries below indicate that a directive exists for the patient, but an actual copy is not included with this document. The data comes from all [place] facilities. Date Advance Directives Provider Source Jan 20, 2021 ADVANCE DIRECTIVE REGL[place]ON Chacko [facility] Encounter Notes: All associated encounter notes This section contains the clinical notes associated to the Encounter. Date/Time Encounter Note(s) Provider Source Apr 04, 2024 08:36 AM NONVA NOTE: LOCAL TITLE: [facility] CARE-REQUEST FOR SERVICE NOTE STANDARD TITLE: NONVA NOTE DATE OF NOTE: APR 04, 2024@08:36 ENTRY DATE: APR 04, 2024@08:37:26 AUTHOR: VIJAY LATHAM EXP COSIGNER: URGENCY: STATUS: COMPLETED had 3 [place]'s [place]03[place]20[place] [facility]. Does not have [facility] consult on file. Dr. Fabby Sun [address] [address] p:[phone] f:[phone] /sharron/ VIJAY LATHAM CC Marketing Automation Manager Signed: 04/04/2024 08:40 Receipt Acknowledged By: 04/05/2024 09:26 /sharron/ LUIS FERNANDO DIEGOP-C HB NURSE PRACTITIONER VIJAY LATHAM [facility]
--- OUTSIDE RECORDS SUMMARY | 2024-05-30 08:55 | XMS_ITS | Encounter Summary ---
Author Name Department of [place]a Affairs ([place]) Organization [facility] Address [address] [place] [address] Care Team Providers Care Wardrobe Attendant Name Role Phone LUIS FERNANDO FONTANEZ Primary Care Provider Unavailabl e AMANDO OHARA Unavailable Unavailable RAIVERAMIN Clarke Unavailable Unavailable FEISHILA, KALYAN Unavailable Unavailable KAMILAH MALCOLM Unavailable Unavailable RIGO FENTON Unavailable Unavailable RISING, [...] PRESCRIPT ION [id number] 1 Jun 20, 2017 [id number] EAMON OLIVIA ERT PATIENT MEDICARE (WNR) MEDICARE (M) PART A Jun 20, 2014 PART A [id number] EAMON OLIVIA ERT PATIENT MEDICARE (WNR) MEDICARE (M) PART B Jun 20, 2014 PART B [id number] EAMON OLIVIA ERT PATIENT MEDICARE (WNR) MEDICARE (M) PART B Jun 20, 2014 PART B [id number] EAMON OLIVIA ERT PATIENT MEDICARE (WNR) MEDICARE (M) PART A Jun 20, 2014 PART A [id number] EAMON OLIVIA ERT PATIENT OPTUM RX PRESCRIPT ION RX Jun 20, 2023 THPRX [id number] EAMON OLIVIA ERT PATIENT OPTUM RX PRESCRIPT ION RX Jun 20, 2022 THPRX [id number] [phone] EAMON OLIVIA ERT PATIENT OPTUM RX PRESCRIPT ION RX Jun 20, 2022 THPRX [id number] DAVON OLIVIA JR PATIENT [facility] Jun 20, 2017 [id number] [phone] EAMON OLIVIA ERT PATIENT [facility] Jun 20, 2017 [id number] [phone] DAVON OLIVIA JR PATIENT [facility] Jun 20, 2017 [id number] DAVON OLIVIA JR PATIENT [facility] USP Jun 20, 2017 USP [id number] EAMON OLIVIA ERT PATIENT [facility] Jun 20, 2023 [id number] EAMON OLIVIA ERT PATIENT Selected Encounter This section includes the information on record at [place] for the Encounter. Date/Time Encounter Type Encounter Description Reason Provider Source Mar 29, 2024 11:00 AM SPEECH/HEARING THERAPY SPEECH-LANGUAGE PATHOLOGY ICD-10-CM G20.C Parkinsonism, unspecified AMARIS WESTFALL [place] Encounter Template Text not used by [place] Assessments - Encounter Diagnoses This section includes the primary and secondary diagnoses documented for the Encounter. Date/Time Primary/Secondary Diagnosis Diagnosis Name Provider Source Apr 04, 2024 03:57 PM PRIMARY Parkinsonism, unspecified CARMELO WESTFALL [facility] Apr 04, 2024 03:57 PM SECONDARY Dysphagia, oropharyngeal phase CARMELO WESTFALL [facility] Plan of Treatment: Future Appointments (+ 6 months) and Future Tests (+/- 45 days) The Plan of Treatment section includes future care activities for the patient from all [place] [facility]. This section includes future appointments and future orders which are active, pending or scheduled. Future Appointments This section includes appointments that were scheduled to occur 6 months from the date of the Encounter, up to a maximum of 20 appointments. The [facility]. Appointment Date/Time Appointment Type Appointme nt Facility Name Apr 12, 2024 11:00 AM AMBULATORY - REHAB MEDICIN E [facility] Apr 26, 2024 09:00 AM [facility] Apr 26, 2024 11:00 AM AMBULATORY - REHAB MEDICIN E [facility] Active, Pending, and Scheduled Orders This section includes a listing of several types of active, pending, and scheduled orders, including clinic medications orders, diagnostic test orders, procedure orders and consult orders; where the start date of the order is 45 days before the date of the Encounter or 45 days after the date of theEncounter. The data comes from all [facility]. Test Date/Time Test Type Test Details Facility Name Feb 29, 2024 07:27 AM Consult Order [facility] NON-SKILLED HOME HEALTH AIDE Cons Chef Assistant's Choice [facility] Feb 29, 2024 01:44 PM Consult Order [facility] Cons Chef Assistant's Choice [facility] Apr 05, 2024 12:00 AM Laboratory - Chemi stry Order CBC AND DIFF (AUTO) BLOOD (LAV-BLOOD) [facility] Apr 05, 2024 12:00 AM Laboratory - Chemi stry Order IRON & TIBC PANEL BLOOD (SST-SERUM) [facility] Apr 05, 2024 12:00 AM Laboratory - Chemi stry Order FERRITIN BLOOD (SST-SERUM) [facility] Apr 05, 2024 12:00 AM Laboratory - Chemi stry Order OCCULT BLOOD FIT X1 SCREEN(IN-HOUSE) STOOL FECES SP [facility] Apr 05, 2024 12:00 AM Laboratory - Chemi stry Order BASIC METABOLIC PANEL (non-fasting) BLOOD (SST-SERUM) SP [facility] [place] [facility] Apr 05, 2024 09:28 AM Consult Order [facility]-NEUROLOGY Cons Chef Assistant's Choice [facility] May 01, 2024 12:00 AM Laboratory - Chemi stry Order CBC AND DIFF (AUTO) BLOOD (LAV-BLOOD) [facility] May 01, 2024 12:00 AM Laboratory - Chemi stry Order IRON & TIBC PANEL BLOOD (SST-SERUM) [facility] May 01, 2024 12:00 AM Laboratory - Chemi stry Order FERRITIN BLOOD (SST-SERUM) [facility] Lab Results: +/- 30 days [...] Range Comment Mar 28, 2024 12:30 PM [facility] LIVER FUNCTION Specimen Type: SERUM No comment entered. Ordering Provider: LUIS FERNANDO FONTANEZ Report Released Date/Time: Dec 28, 2023 07:18 AM Reporting Lab: [address] [address] Performing Lab: [address] [address] PROTEIN,TOTAL 6.0 g/dL 6.0-8.3 ALBUMIN 3.2 g/dL L 3.5-5.0 ALKALINE PHOSPHATASE 72 U/L 40-150 AST 21 U/L 5-34 ALT <6 U/L BILIRUBIN, TOTAL 0.4 mg/dL 0.2-1.2 Mar 28, 2024 12:30 PM [facility] BASIC METABOLIC PANEL (non-fasting) Specimen Type: SERUM No comment entered. Ordering Provider: LUIS FERNANDO FONTANEZ Report Released Date/Time: Dec 28, 2023 07:18 AM Reporting Lab: [address] [address] Performing Lab: [facility] [address] [facility] [address] UREA NITROGEN 21 mg/dL 7-25 GLUCOSE 98 mg/dL 65-100 SODIUM 139 mmol/L 135-145 POTASSIUM 3.4 mmol/L L 3.5-5.0 CHLORIDE 102 mmol/L 100-110 CO2 27 meq/L 20-30 CREATININE, Serum 0.88 mg/dL 0.50-1.40 eGFR(CKD-EPI 2020) 90 mL/min >60 Mar 28, 2024 12:30 PM [facility] CBC AND DIFF (AUTO) Specimen Type: BLOOD No comment entered. Ordering Provider: LUIS FERNANDO FONTANEZ Report Released Date/Time: Dec 28, 2023 07:18 AM Reporting Lab: [facility] [address] [facility] [address] Performing Lab: [facility] [address] [facility] [address] WBC 9.03 10*3/uL 4.50-11.00 RBC 4.16 10*6/uL [...] Jan 20, 2021 ADVANCE DIRECTIVE [facility] Encounter Notes: All associated encounter notes This section contains the clinical notes associated to the Encounter. Date/Time Encounter Note(s) Provider Source Mar 29, 2024 11:55 AM TELEHEALTH NOTE: LOCAL TITLE: [employer] CONNECT SPEECH STANDARD TITLE: TELEHEALTH NOTE DATE OF NOTE: MAR 29, 2024@11:55 ENTRY DATE: APR 04, 2024@15:55:46 AUTHOR: AMARIS WESTFALL COSIGNER: URGENCY: STATUS: COMPLETED [facility] Video Connect (VVC) Standard Documentation VVC Clinician Resources Only: E911 (Emergency Call Relay Center): [phone] [facility] Line - 988 then press #1. [facility] Suicide Coordinator [phone], Ext. [phone]; Back-up Ext. [phone] [place] Police, Nahomy [place] [phone] Introduction: Visit is being conducted by [employer]. Anderson identified with 2 identifiers: [X] Full Name [X] Date of [ ] VA ID Card Emergency Plan: Anderson confirmed and/or provided the following information in case of emergency or technology failure. PATIENT PHONE - PHONE NUMBER [CELLULAR] - Is patient phone number correct, if not, enter below: 's phone number: DAVON OLIVIA [address], [place], [address] Anderson's present location and address for appointment: as listed 's emergency contact name and phone number: as listed reported that location is private and safe: Yes Informed Consent: informed of the risks and benefits of Telehealth video care. has the right to refuse video services. If refuses video visit, a [id number] visit will be scheduled. Anderson verbalized consent for this video visit: Yes Anderson provided consent for any other persons present for visit: N/A If yes, who and relationship to patient: Secure visit: Visit was locked for security and privacy:Yes S: Anderson. is seen today for a treatment of dysphagia via VVC. Active problems - Computerized Problem List is the source for the followin. Obstructive sleep apnea 2. Nephrolithiasis 3. Excessive salivation 4. HTN - Hypertension ([facility] [id number]) 5. Constipation 6. Under care of multiple [...] Gastroesophageal reflux disease 31. AF- Atrial Fibrillation ([facility] [id number]) 32. Parkinson's disease 33. Kidney Stone ([facility] [id number]) Progress notes reviewed. Encounter time - 60 minutes O:The following was addressed during this encounter: Unable to move MBSS sooner, scheduled for MBSS in May. Anderson has received EMST device and was instructed in setting the optimal pressure and completing exercises. In addition, he completed exercises to improve vocal loudness and clarity of speech. //EDUCATION - 1. . was educated on the importance of eating behavior to a safe swallow and encouraged to slow rate, take smaller sips/bites, chew solids well, and take pills in puree. A: with Parkinson's Disease with recent concerns re: swallowing. Dysphagia is a common symptom of PD. P: RTC 04/12/24 @ 1100 via [facility] /sharron/ AMARIS WESTFALL M.S.,CCC-PRESIDENTIAL [employer] CREW CHIEF SPEECH-LANGUAGE PATHOLOGIST Signed: 04/05/2024 08:51 Receipt Acknowledged By: 04/05/2024 09:44 /sharron/ EBONY ZIMMERMAN ADVANCED EDIPHONE OPERATOR AMARIS WESTFALL [facility]
--- OUTSIDE RECORDS SUMMARY | 2024-05-30 08:55 | XMS_ITS | Encounter Summary ---
Author Name [facility] Organization [facility] Address [address] [place] [id number] Care Team Providers Care Stripping Machine Operator Name Role Phone HUSEYIN LUIS FERNANDO [...] PRESCRIPT ION [id number] 1 Jun 20, 2017 [id number] EAMON OLIVIA ERT PATIENT MEDICARE (WNR) MEDICARE (M) PART A Jun 20, 2014 PART A [id number] EAMON OLIVIA ERT PATIENT MEDICARE (WNR) MEDICARE (M) PART B Jun 20, 2014 PART B [id number] EAMON OLIVIA ERT PATIENT MEDICARE (WNR) MEDICARE (M) PART B Jun 20, 2014 PART B [id number] EAMON OLIVIA ERT PATIENT MEDICARE (WNR) MEDICARE (M) PART A Jun 20, 2014 PART A [id number] EAMON OLIVIA ERT PATIENT OPTUM RX PRESCRIPT ION RX Jun 20, 2023 THPRX [id number] EAMON OLIVIA ERT PATIENT [facility] RX PRESCRIPT ION RX Jun 20, 2022 THPRX [id number] [phone] EAMON OLIVIA ERT PATIENT OPTUM RX PRESCRIPT ION RX Jun 20, 2022 THPRX [id number] DAVON OLIVIA JR PATIENT [facility] TON MAR Jun 20, 2017 [id number] EAMON OLIVIA ERT PATIENT [facility] TON PEÑA E Jun 20, 2017 [id number] DAVON OLIVIA JR PATIENT [facility] TON PEÑA E Jun 20, 2017 [id number] DAVON OLIVIA JR PATIENT [facility] USP Jun 20, 2017 USP [id number] EAMON OLIVIA ERT PAT[facility] Jun 20, 2023 [id number] EAMON OLIVIA ERT PATIENT Selected Encounter This section includes the information on record at [place] for the Encounter. Date/Time Encounter Type Encounter Description Reason Pro vider Source Apr 25, 2024 03:55 PM Outpatient Encounter COMMUNITY CARE CONSULT IHE [...] Appointment Type Appointme nt Facility Name Apr 26, 2024 09:00 AM AMBULATORY - MEDICINE [place] [facility] Apr 26, 2024 11:00 AM AMBULATORY - REHAB MEDICIN E [facility] Active, Pending, and Scheduled Orders This section includes a listing of several types of active, pending, and scheduled orders, including clinic medications orders, diagnostic test orders, procedure orders and consult orders; where the start date of the order is 45 days before the date of the Encounter or 45 days after the date of theEncounter. The data comes from all [place] treatment facilities. Test Date/Time Test Type Test Details Facility Name Apr 05, 2024 12:00 AM Laboratory - Chemi stry Order CBC AND DIFF (AUTO) BLOOD (LAV-BLOOD) [facility] Apr 05, 2024 12:00 AM Laboratory - Chemi stry Order IRON & TIBC PANEL BLOOD (SST-SERUM) [facility] Apr 05, 2024 12:00 AM Laboratory - Chemi stry Order FERRITIN BLOOD (SST-SERUM) [facility] Apr 05, 2024 12:00 AM Laboratory - Chemi stry Order OCCULT BLOOD FIT X1 SCREEN(IN-HOUSE) [facility] Apr 05, 2024 12:00 AM Laboratory - Chemi stry Order BASIC METABOLIC PANEL (non-fasting) BLOOD (SST-SERUM) [facility] Apr 05, 2024 09:28 AM Consult Order [facility]OLOG[facility] Cons Insurance Appraiser's Choice [facility] May 01, 2024 12:00 AM Laboratory - Chemi stry Order CBC AND DIFF (AUTO) BLOOD (LAV-BLOOD) [facility] May 01, 2024 12:00 AM Laboratory - Chemi stry Order IRON & TIBC PANEL BLOOD (SST-SERUM) [facility] May 01, 2024 12:00 AM Laboratory - Chemi stry Order FERRITIN BLOOD (SST-SERUM) [facility] Lab Results: +/- 30 days of [...] Range Comment Mar 28, 2024 12:30 PM [facility] LIVER FUNCTION Specimen Type: SERUM No comment entered. Ordering Provider: LUIS FERNANDO FONTANEZ Report Released Date/Time: Dec 28, 2023 07:18 AM Reporting Lab: [address] [address] Performing Lab: [address] [address] PROTEIN,TOTAL 6.0 g/dL 6.0-8.3 ALBUMIN 3.2 g/dL L 3.5-5.0 ALKALINE PHOSPHATASE 72 U/L 40-150 AST 21 U/L 5-34 ALT <6 U/L BILIRUBIN, TOTAL 0.4 mg/dL 0.2-1.2 Mar 28, 2024 12:30 PM [facility] BASIC METABOLIC PANEL (non-fasting) Specimen Type: SERUM No comment entered. Ordering Provider: LUIS FERNANDO FONTANEZ Report Released Date/Time: Dec 28, 2023 07:18 AM Reporting Lab: [address] [address] Performing Lab: [address] [address] UREA NITROGEN 21 mg/dL 7-25 GLUCOSE 98 mg/dL 65-100 SODIUM 139 mmol/L 135-145 POTASSIUM 3.4 mmol/L L 3.5-5.0 CHLORIDE 102 mmol/L 100-110 CO2 27 meq/L 20-30 CREATININE, Serum 0.88 mg/dL 0.50-1.40 eGFR(CKD-EPI 2020) 90 mL/min >60 Mar 28, 2024 12:30 PM [facility] CBC AND DIFF (AUTO) Specimen Type: BLOOD No comment entered. Ordering Provider: LUIS FERNANDO FONTANEZ Report Released Date/Time: Dec 28, 2023 07:18 AM Reporting Lab: [address] [place] [address] Performing Lab: [facility] [address] [facility] [address] WBC 9.03 10*3/uL 4.50-11.00 RBC 4.16 10*6/uL [...] place. Date/Time Current Smoking Status Comment Raghu itiris Jan 19, 2023 12:24 PM VA-TOBACCO NEVER USED [facility] Tobacco Use History This section includes [...] Jan 20, 2021 ADVANCE DIRECTIVE BENTON ARAUZ [facility] Encounter Notes: All associated encounter notes This section contains the clinical notes associated to the Encounter. Date/Time Encounter Note(s) Provider Source Apr 25, 2024 03:55 PM NONVA NOTE: LOCAL TITLE: [facility] CARE COORD PLAN STANDARD TITLE: NONVA NOTE DATE OF NOTE: APR 25, 2024@15:55 ENTRY DATE: APR 25, 2024@15:55:35 AUTHOR: [facility] EXP COSIGNER: URGENCY: STATUS: COMPLETED Emergency Notification Intake Date Presenting to the Facility: Feb Method of Contact: Notified from ECR worklist Notification ID: [id number] [facility] Referral #: [id number] [facility] Name: Hospital: [facility] Address: City: [place] State: [place] Zip Code: Phone : [facility] Point of Contact: Name: Yohan Phone: Chief complaint: I10 Primary Diagnosis: Disposition Discharged Date of discharge: Feb Discharge to Comment: ER Only /sharron/ [facility] SOL AMSGinna Signed: 04/25/2024 15:58 Receipt Acknowledged By: * AWAITING SIGNATURE * KEMI AMBROCIO * AWAITING SIGNATURE * SARAH IRIZARRY * AWAITING SIGNATURE * CEE AVENDANO * AWAITING SIGNATURE * CADENCE CASTRO DAWN MARIE MILLINOCKET
--- OUTSIDE RECORDS SUMMARY | 2024-05-30 08:55 | XMS_ITS ---
Author Name [facility] [place] [facility] Address [address] [place] [id number] Care Team Providers Care Lining Strap Closer Name Role Phone LUIS FERNANDO GARCIA Primary [...] PRESCRIPT ION [id number] 1 Jun 20, 2017 [id number] [phone] EAMON OLIVIA ERT PATIENT MEDICARE (WNR) MEDICARE (M) PART A Jun 20, 2014 PART A [id number] [phone] EAMON OLIVIA ERT PATIENT MEDICARE (WNR) MEDICARE (M) PART B Jun 20, 2014 PART B [id number] EAMON OLIVIA ERT PATIENT MEDICARE (WNR) MEDICARE (M) PART B Jun 20, 2014 PART B [id number] EAMON OLIVIA ERT PATIENT MEDICARE (WNR) MEDICARE (M) PART A Jun 20, 2014 PART A [id number] EAMON OLIVIA ERT PATIENT OPTUM RX PRESCRIPT ION RX Jun 20, 2023 THPRX [id number] EAMON OLIVIA ERT PATIENT OPTUM RX PRESCRIPT ION RX Jun 20, 2022 THPRX [id number] EAMON OLIVIA ERT PATIENT OPTUM RX PRESCRIPT ION RX Jun 20, 2022 THPRX [id number] DAVON OLIVIA JR PATIENT [facility] TON MAR Jun 20, 2017 [id number] EAMON OLIVIA ERT PATIENT [facility] TON PEÑA E Jun 20, 2017 [id number] DAVON OLIVIA JR [facility]IENT [facility] PEÑA E Jun 20, 2017 [id number] [phone] DAVON OLIVIA JR PATIENT [facility] USP Jun 20, 2017 USP [id number] EAMON OLIVIA ERT PATIENT [facility] TON Jun 20, 2023 [id number] [phone] EAMON OLIVIA ERT PATIENT Selected Encounter This section includes the information on record at [place] for the Encounter. Date/Time Encounter Type Encounter Description Reason Pro vider Source Apr 05, 2024 09:42 PM Outpatient Encounter [facility] PHYSIC EXTND(CASINO ASSISTANT MANAGER,CONSTRUCTION SUPERVISOR/CARPENTER,PA) IHE Encounter Template Text not used by [...] - REHAB MEDICIN E [facility] Apr 26, 2024 09:00 AM AMBULATORY - MEDICINE [facility] Apr 26, 2024 11:00 AM AMBULATORY - REHAB MEDICIN E [place] [facility] Active, Pending, and Scheduled Orders This section includes a listing of several types of active, pending, and scheduled orders, including clinic medications orders, diagnostic test orders, procedure orders and consult orders; where the start date of the order is 45 days before the date of the Encounter or 45 days after the date of theEncounter. The data comes from all [place] treatment facilities. Test Date/Time Test Type Test Details Facility Name Feb 29, 2024 07:27 AM Consult Order [facility] NON-SKILLED HOME HEALTH AIDE Cons Physician Practice Coordinator's Choice [place] [facility] Feb 29, 2024 01:44 PM Consult Order [facility] Cons Physician Practice Coordinator's Choice [facility] Apr 05, 2024 12:00 AM Laboratory - Chemi stry Order CBC AND DIFF (AUTO) BLOOD (LAV-BLOOD) [facility] Apr 05, 2024 12:00 AM Laboratory - Chemi stry Order IRON & TIBC PANEL BLOOD (SST-SERUM) [facility] Apr 05, 2024 12:00 AM Laboratory - Chemi stry Order FERRITIN BLOOD (SST-SERUM) SP [place] [facility] Apr 05, 2024 12:00 AM Laboratory - Chemi stry Order OCCULT BLOOD FIT X1 SCREEN(IN-HOUSE) STOOL FECES SP [place] [facility] Apr 05, 2024 12:00 AM Laboratory - Chemi stry Order BASIC METABOLIC PANEL (non-fasting) BLOOD (SST-SERUM) [facility] Apr 05, 2024 09:28 AM Consult Order [facility] Cons Physician Practice Coordinator's Choice [place] [facility] May 01, 2024 12:00 AM Laboratory - Chemi stry Order CBC AND DIFF (AUTO) BLOOD (LAV-BLOOD) [facility] May 01, 2024 12:00 AM Laboratory - Chemi stry Order IRON & TIBC PANEL BLOOD (SST-SERUM) SP [facility] May 01, 2024 12:00 AM Laboratory - Chemi stry Order FERRITIN BLOOD (SST-SERUM) SP [facility] Lab Results: +/- 30 days of the encounter This section includes the Chemistry and Hematology Lab Results on record with [place] for the patient. Radiology Reports and Pathology Reports are provided separately, in subsequent sections. Lab Results This section contains the Chemistry/Hematology Results that were resulted 30 days before or 30 daysafter the date of the Encounter. Date/Time Source Result Type Result - Unit Interpretation Reference Range Comment Mar 28, 2024 12:30 PM [facility] LIVER FUNCTION Specimen Type: SERUM No comment entered. Ordering Provider: LUIS FERNANDO GARCIA Report Released Date/Time: Dec 28, 2023 07:18 AM Reporting Lab: [address] [address] Performing Lab: [address] [address] PROTEIN,TOTAL 6.0 g/dL 6.0-8.3 ALBUMIN 3.2 g/dL L 3.5-5.0 ALKALINE PHOSPHATASE 72 U/L 40-150 AST 21 U/L 5-34 ALT <6 U/L BILIRUBIN, TOTAL 0.4 mg/dL 0.2-1.2 Mar 28, 2024 12:30 PM [facility] BASIC METABOLIC PANEL (non-fasting) Specimen Type: SERUM No comment entered. Ordering Provider: LUIS FERNANDO GARCIA Report Released Date/Time: Dec 28, 2023 07:18 AM Reporting Lab: [address] [address] Performing Lab: [address] [address] UREA NITROGEN 21 mg/dL 7-25 GLUCOSE 98 mg/dL 65-100 SODIUM 139 mmol/L 135-145 POTASSIUM 3.4 mmol/L L 3.5-5.0 CHLORIDE 102 mmol/L 100-110 CO2 27 meq/L 20-30 CREATININE, Serum 0.88 mg/dL 0.50-1.40 eGFR(CKD-EPI 2020) 90 mL/min >60 Mar 28, 2024 12:30 PM [facility] CBC AND DIFF (AUTO) Specimen Type: BLOOD No comment entered. Ordering Provider: LUIS FERNANDO GARCIA Report Released Date/Time: Dec 28, 2023 07:18 AM Reporting Lab: [facility] [address] [facility] [address] Performing Lab: [facility] [address] [facility] [address] WBC 9.03 10*3/uL 4.50-11.00 RBC 4.16 10*6/uL [...] 19, 2023 12:24 PM VA-TOBACCO NEVER USED [facility] Tobacco Use History This section includes a history of the smoking, or tobacco-related health factors, that were collected on or before the date of the Encounter. The data comes from the [place] facility where the Encounter took place. Date/Time Smoking Status/Tobacco Use Comment F acility Jan 15, 2021 11:00 AM VA-TOBACCO NEVER USED [facility] Advance Directives: All historical and current [...] Jan 20, 2021 ADVANCE DIRECTIVE [facility] Encounter Notes: All associated encounter notes This section contains the clinical notes associated to the Encounter. Date/Time Encounter Note(s) Provider Source Apr 05, 2024 09:42 PM [facility] NOTE: LOCAL TITLE: [facility] INTERDISCIPLINARY NOTE STANDARD TITLE: [facility] NOTE DATE OF NOTE: APR 05, 2024@21:42 ENTRY DATE: APR 05, 2024@21:42:12 AUTHOR: JENNIFER SEGURA EXP COSIGNER: URGENCY: STATUS: [...] has a brother Stephon who lives in [place] who will come over and stay with vet while spouse goes on errands. Vet requires assist with all adl's, dependent on all Iadl's. receiving 16 hours a week for GOLF SUPERINTENDENT services through [facility] Mental Status: A & O X 3, Forgetfulness PLAN OF CARE 90 day review Dates covered by plan of care from Mar to Jun Primary Care Provider: Luis Fernando Garcia PROBLEM LIST: Active problems - Computerized Problem List is the source for the followin. Obstructive sleep apnea 2. Nephrolithiasis CT scan at [facility] 12/2023, multiple stones, no hydronephrosis 3. Excessive salivation 4. HTN - Hypertension (SCT [id number]) 5. Constipation 6. Under care of multiple providers Dr. Shirin HUTCHISON [place] PCP Neurologist : Dr. Dino Doan [facility] Orthopedist: MIRELA Monahan [place] Operator: Dr. Ha Man 7. Exposure to potentially hazardous substance Connect Snomed Code to ICD 10 Code refer to note dated 03/21/23 8. Long-term current use of anticoagulant 9. Gingivitis 10. Parkinsonism 11. Squamous cell carcinoma of skin 12. Basal cell carcinoma of skin multiple sites-head, arm, neck 13. Hypotension Intermittent 14. Benign prostatic hyperplasia 15. Hematuria Intermittent 16. Diverticular disease of colon 17. Internal hemorrhoids 18. REM sleep behavior disorder 19. Peripheral vascular disease of Carotids- L more than Right 20. Migraine 21. Solitary nodule of lung 2mm-via CT 22. Dupuytren's contracture 23. Multiple renal cysts 24. Atrial flutter 25. History of deep vein thrombosis 26. Memory loss 27. Sundowning 28. Urinary incontinence 29. Insomnia 30. Gastroesophageal reflux disease 31. AF- Atrial Fibrillation (SCT [id number]) followed by [facility] 32. Parkinson's disease followed by [facility] Dr. Fabby Sun Normal Swallow Evaluation 02/2024 33. Kidney Stone (SCT [id number]) [place] Medications: Active Outpatient Medications (including Supplies): Active [...] (S) MOUTH FOUR TIMES A DAY 5) CATH,EXTERNAL EXTENDED WEAR SMALL H#9258 USE 1 ACTIVE CATHETER URETHRAL ONCE DAILY 6) CHLORHEXIDINE GLUCONATE 0.12% MOUTHWASH RINSE 15ML BY ACTIVE MOUTH ONCE DAILY FOR INFLAMMATION OF THE GUMS - SWISH AND SPIT. DO NOT SWALLOW 7) CHOLECALCIF 25MCG (D3-1,000UNIT) TAB TAKE ONE TABLET ACTIVE (S) BY MOUTH ONCE DAILY FOR VITAMIN SUPPLEMENTATION 8) DEPEND UNDERWEAR,MAXIMUM,MEN LARGE USE 1 BRIEF ACTIVE DIRECTED THREE TIMES A DAY INCONTINENCE 9) DIAPER ADULT LARGE EXTRA ABSORBENT USE 1 BRIEF ACTIVE DIRECTED THREE TIMES A DAY INCONTINENCE 10) FAMOTIDINE 20MG TAB TAKE ONE TABLET BY MOUTH ONCE ACTIVE (S) DAILY FOR STOMACH ACID 11) GLYCOPYRROLATE 2MG TAB TAKE ONE TABLET BY MOUTH ACTIVE DIRECTED BY PROVIDER 2-3 TIMES PER DAY NEEDED FOR SECRETIONS 12) HYDROCHLOROTHIAZIDE 25MG TAB TAKE ONE TABLET BY MOUTH ACTIVE (S) ONCE DAILY FOR HIGH BLOOD PRESSURE 13) HYDROPHILIC (EQV EUCERIN) TOP CREAM APPLY A LIBERAL ACTIVE AMOUNT TOPICALLY ONCE DAILY FOR DRY SKIN 14) HYDROXYZINE HCL 10MG TAB TAKE ONE TABLET BY MOUTH AT ACTIVE BEDTIME 15) INCONT LINER PREVAIL GUARDS #[id number] USE 1 LINER ACTIVE TOPICALLY TWO TIMES A DAY 16) INCONT LINER,MENS X-HVY SURECARE #[id number] USE 1 LINER ACTIVE TOPICALLY AT BEDTIME 17) INCONTINENCE WRAP,MALE USE 1 INCONTINENCE WRAP ACTIVE TOPICALLY AT BEDTIME 18) MELATONIN 5MG CAP/TAB TAKE THREE CAPSULE/TABLETS BY ACTIVE MOUTH AT BEDTIME FOR INSOMNIA 19) MEMANTINE HCL 10MG TAB TAKE ONE TABLET BY MOUTH TWICE ACTIVE (S) DAILY 20) MIDODRINE HCL 5MG TAB TAKE ONE TABLET BY MOUTH THREE ACTIVE TIMES DAILY NEEDED FOR LOW BLOOD PRESSURE 21) MULTIVITAMIN/MINERALS LIQUID TAKE 1 TABLESPOON (15ML) ACTIVE BY MOUTH ONCE DAILY FOR VITAMIN SUPPLEMENTATION 22) OATMEAL,COLLOIDAL CLEANSING BAR/DRY SKIN DIRECTED ACTIVE TOPICALLY ONCE DAILY FOR SKIN IRRITATION 23) ORAL,SWAB TOOTHETTE USE 1 MOUTH SWAB DIRECTED ONCE ACTIVE DAILY TO USE WITH CHLOREHEXADINE ORAL RINSE 24) POLYETHYLENE GLYCOL 3350 ORAL PWDR TAKE 17 GRAMS(FILL ACTIVE CAP TO 17GM LINE) BY MOUTH ONCE DAILY FOR CONSTIPATION [MIX WITH 4 TO 8OZ. OF BEVERAGE] 25) RASAGILINE MESYLATE 1MG TAB TAKE ONE TABLET BY MOUTH ACTIVE ONCE DAILY 26) UNDERPAD,BED ULTRASORB 38D34PR #3136 USE 2 UNDERPADS ACTIVE TOPICALLY AT BEDTIME 27) URINARY DRAINAGE BAG BARD #710442 USE 1 URINARY ACTIVE DRAINAGE BAG EVERY 7 DAYS Pending Outpatient Medications Status 1) DRESSING,MEPILEX BORDR 6.3X7.9IN #498801 APPLY 1 PENDING DRESSING DIRECTED 3XWEEK NEEDED Active Non-VA Medications Status 1) Non-VA DOCUSATE NA 100MG CAP 100MG BY MOUTH ONCE ACTIVE DAILY NEEDED 2) Non-VA LORAZEPAM 0.5MG TAB 0.5MG BY MOUTH ONCE DAILY ACTIVE NEEDED 30 Total Medications Gender Specific Health Assessment: BPH, Urinary Incontinence, Nephrolithiasis Fall Risk: [facility] 10 Fall Risk Assessment Tool Required Core Elements Assess one point for each core element yes. Information may be gathered from medical record, assessment and if applicable, the patient caregiver. Beyond protocols listed below, scoring should be based on your clinical judgment. 1-Age 65+ 1-Diagnosis (3 or more co-existing) Includes only documented medical diagnosis 1-Prior history of falls within 3 months An [...] adhere to the plan of care. Total: 7- A score of 4 or more is considered at risk for falling. Created by: [facility] Functional Limitations Use of assistive devices wheelchair. Ambulates very short distance using walker, gait belt and 1 assist. Under 20 ft Needs assistance with transfers bowel/bladder incontinence Nutritional Requirements: Diet: foods finely chopped Aspiration problems yes, swallowing difficulties, Couldn't complete Barium Swallow Study test not able to tolerate. scheduled for another swallowing study at [facility] 05/24/24. Following up with Speech therapy via [facility] RN VISIT FREQUENCY RN 1 to 4 visits per every 4-6 weeks and 3 PRN [facility] RN visits for changes in Health Status [...] The One Thing that Matters to the [place] was used to align the current care plan. [place] reports what matters the most to him is to be able to live in his house with his with assistance from [facility] and GOLF SUPERINTENDENT as long as he can. MEDICATION Medications were addressed at this visit. Spouse administers medications MENTATION Depression was addressed at this visit. denies feeling depressed. Comment: PHQ-2 Mental Health Screening performed by [facility] RN this visit. Over the past two weeks, how often have you been bothered by the following problems? 1. Little interest or pleasure in doing things? 0 = Not at all 2. Feeling down, depressed, or hopeless? 0 = Not at all Total Score: 0 Interpretation: Negative Comment: OBSTETRICIAN to Further address at his Initial Assessment [...] of neurological disorder without complication and exacerbations the next 90 days Intervention: Assess neuro status including level of consciousness, speech, strength, balance and swallowing. Instruct vet and caregiver in safety measures with swallowing, transfers and weakness, falls. Instruct vet/caregiver on disease process, assess for exacerbation and complications. Follow up with Community Neurologist Dr. Fabby Donahue and encourage f/u as needed and to follow through recommendations. Monitor effectiveness of medication on stiffness, weakness. Consult TEXTILE FINISHER for speech therapy when indicated or might be beneficial. [facility] Registered Dietitian for eval and education as appropriate. Consult OT for eval and treatment- adaptive devices and PT as needed for eval and treatment. 2. PROBLEM ADDRESSED: high risk for aspiration r/t impaired muscles of swallowing. (ongoing) GOAL: To remain free of Aspiration pneumonia, no choking episodes next 90 days. Interventions: Teach techniques for protecting airway, sitting up straight, finely chop all foods, taking small bites, putting chin on chest when swallowing, concentrate when eating, avoid increased stimulation, i.e talking when eating. Consult [facility] RD for nutritional needs and assess swallowing. Vet recently attempted barium swallow study but unable to tolerated, not completed. 3. PROBLEM ADDRESSED: BPH, urinary frequency-occasional incontinence. (ongoing) GOAL: minimize urinary complications/infections for the next 90 days Interventions: teach important sx to monitor and report to [facility] team related to worsening sx of urinary sx-urgency, frequency, burning/pain, fever, chills, hematuria, flank pain. Follow up with Community Urologist- [facility]- Dr. Lloyd Soares. Encourage med adherence-currently on finasteride. incontinence care, good kendall hygiene to prevent skin breakdown/rashes etc. Use of urinal/bedside commode at night for nocturia if unable to make it to the bathroom. 4. PROBLEM ADDRESSED: Memory loss, sundowning (ongoing) GOAL: Vet's dignity and self-esteem will be [...] of patient. 5. PROBLEM ADDRESSED: Atrial fibrillation (ongoing) GOAL: Vet will maintain stable cp status and take meds as directed INTERVENTIONS: Assess CP status to include VS, respiratory status, med effect and safety, monitor vet's med compliance. Teach and assess Caregivers understanding of reportable signs such as variations in blood pressure and pulse, fatigue, weakness, dyspnea, cough, abnormal breath sounds, peripheral edema, dizziness and report to [facility]. Instruct on medication use, and s/s of bleeding and anticoagulation precautions. 6. PROBLEM ADDRESSED: Fall/injury risk r/t weakness, poor vision-Macular degeneration (4 falls this IDT) GOAL: will remain free [...] visual weight gain, ssx of fluid overload. [facility] PT to weigh with wheelchair scale foot care/nail care prn cognition assessment; safety concerns administer other IM/SQ injection (med): Immunizations when due Men's health concerns: BPH, Urinary Incontinence ,Nephrolithiasis preventative care primary care Education: medication administration/side effects bowel program appropriate skin care emergency management incontinence management nutritional needs s/s disease progression and complications safety measures hypertension management Men's health concerns: BPH, Urinary Incontinence, Nephrolithiasis care of cognitively impaired patient Individualized Outcomes: [...] will recognize changes that require reporting to [facility] staff patient will demonstrate correct use of adaptive equipment patient will be safe in home with environment adjusted to accommodate decrease in cognition and/or increase in disease progression Involvement of additional [facility] team members: N.P. assess and attach specific plan SW assess and attach specific plan RD assess and attach specific plan P.T. assess and attach specific plan Discharge Plan when able to remain in community safely with assistance of services and or family Per [facility] Discharge Policy 4 falls, 2 planned procedures, 1 ER visit, no infection this IDT. Seen in ER on 03/16/24 at [facility] for fever of 100.0 and elevated BP of 170/93. Pt found to have hematuria. Vet lives in a single family home with his Tory who is his primary caregiver/HCP/DPOA. Spouse has limited support. She has a brother Stephon who lives in [place] who will come over and stay with vet while spouse goes on errands. Vet requires assist with all adl's, dependent on all Iadl's. [place] receiving 16 hours a week for GOLF SUPERINTENDENT services through [facility] PMHX: Parkinson's Disease, Squamous cell carcinoma, basal [...] is followed by multiple community providers Community Gas Collection System Operator- Dr. Emil Davis Community PCP- Shirin Patrick Community Neurologist- Dr. Fabby Donahue [facility]- Dr. Lloyd Soares [facility]- Dr. Svitlana Hand PD- followed by Dr.Rani Donahue Neurology. [place] has neurologist appt 04/26. Obstructive sleep apnea: [place] diagnosed with sleep apnea had [facility] Resp [facility] visit on 03/22 to discuss recommendations from sleep specialist. [place] had a [facility] HST on 01/04/2024 and has an HST-ANTONY 7.6 with recommendations from [facility] sleep specialist for APAP 5-20 cmH2O. RT discussed sleep study findings and the dangers of untreated sleep apnea. is agreeable to begin therapy. A ResMed Airsense 11 set to APAP 5-20 cmH2O with F20 large mask and supplies. Equipment properly set and sized during phone call will be sent to . received supplies but has not started using due having 2 procedures back to back and being in the ER. Atrial fibrillation - EKG done on 10/16 and a 14 day ZioPatch XT was applied to [place]. Long-term current use of anticoagulant. [facility] PCP considering stopping anticoagulation depending on the 14 day loop monitor. ZioPatch ET results revealed no triggered or diary events noted. Atrial fibrillation was not detected during this period of time. Patient had occasional episodes of isolated supraventricular ectopy. Patient did not report any symptoms at the time of the SVT. Results sent to Dr. Vickey Gooden Cardiac Menagerie Superintendent [facility] identification and records commander who recommended [place] to continue on apixaban. Next appt 06/25/24 Intermittent Hematuria: s/p open cystoscopy lithotripsy with stent placement on 03/02 and 03/26. Dr. Lloyd Soares Urologist for cystoscopy. Followed by [facility] will have results faxed to [place]. Dysphagia: [place] had a choking episode while swallowing pills requiring Heimlich maneuver by spouse. [facility] pharmacist provided list of crushable/alternative oral dosage forms for current med list as requested. Swallow eval consult entered has appt on 05/24 for swallowing test. Currently working with speech Therapist via [facility]. receiving 16 hours a week for GOLF SUPERINTENDENT services through [facility] manages and administers meds. manages and administers meds in pudding or applesauce. Little trouble swallowing. Needs extra sip of a drink to get pills down. Reviewed medication regimen. Spouse administering meds as directed. Updated Spouse having caregiver stress burden. [facility] SW recommended caregiver has to connect with Caregiver Support. [facility] SW provided education in regards to Caregiver support program. RNCM administered flu and covid vaccine this IDT Reviewed at IDT. Team agrees with POC /es/ JENNIFER SEGURA LIVING SKILLS ADVISOR HB SWITCH FOREMAN Signed: 04/05/2024 22:16 Receipt Acknowledged By: 04/06/2024 15:08 /es/ Olga Segal, MSN, CASINO ASSISTANT MANAGER [facility] Lasting Room Supervisor 04/06/2024 16:29 /es/ SANJUANITA PEDROZA [facility] curb attendant 04/06/2024 08:18 /es/ Micki Dos Santos, PharmD Clinical Pharmacy Practitioner for CANDICE GEORGE 04/06/2024 07:51 /es/ Jacqui Srivastava [facility] Occupational Therapist for RMAIN MENDIETA 04/06/2024 08:54 /es/ RIGO FENTON, MS, RDN, LDN Staff Dietitian 04/06/2024 11:46 /es/ OLEG Sandhu [facility] Director Investment Banking 04/06/2024 09:38 /es/ MEGAN Villa MD 04/06/2024 08:53 /es/ LUIS FERNANDO CHIU [facility] NURSE PRACTITIONER 04/06/2024 10:18 /es/ PERI COUCH LIVING SKILLS ADVISOR [facility] curb attendant 04/06/2024 ADDENDUM STATUS: COMPLETED Full pharmacy review completed 04/04/24, see note for details. [facility] CPP will continue to review quarterly. /es/ Micki Dos Santos, Daily Clinical Pharmacy Practitioner Signed: 04/06/2024 08:18 04/06/2024 ADDENDUM STATUS: COMPLETED Will continue to follow every 6-12 months for routine medical care and as needed for changes in condition. /es/ LUIS FERNANDO CHIU [facility] NURSE PRACTITIONER Signed: 04/06/2024 08:53 04/06/2024 ADDENDUM STATUS: COMPLETED Nutrition-Case discussed at IDT meeting. Patient was last seen by [facility] dietitian on 05/11/23. See Consult Report/Nutrition and Barrel Inspector Tight for nutrition assessment. Plan: 1. Follow-up visit: [...] FENTON, MS, RDN, LDN Staff Dietitian Signed: 04/06/2024 08:56 04/06/2024 ADDENDUM STATUS: COMPLETED [facility] SW will provide caregiver supportive visits and psychosocial supportive visits as needed. [facility] SW will complete annual [facility] SW Assessment April 2024 unless otherwise indicated /sharron/ OLEG Sandhu [facility] Director Investment Banking Signed: 04/06/2024 11:47 04/12/2024 ADDENDUM STATUS: COMPLETED [facility] PT following patient for durable medical equipment as required. No appointments currently scheduled. /es/ RAMIN MENDIETA, PT, MS, ATP [facility] Physical Therapist Signed: 04/12/2024 10:24 JENNIFER SEGURA [facility]
--- OUTSIDE RECORDS SUMMARY | 2024-05-30 08:55 | XMS_ITS ---
Author Name Department of Vetera Affairs ([place]) Organization [facility] Address [address] [place] [address] Care Team Providers Care Rag Willow Operator Name Role Phone LUIS FERNANDO FONTANEZ [...] SIMS ION [id number] 1 Jun 20, 2017 [id number] [phone] EAMON OLIVIA ERT PATIENT MEDICARE (WNR) MEDICARE (M) PART A Jun 20, 2014 PART A [id number] [phone] EAMON OLIVIA ERT PATIENT MEDICARE (WNR) MEDICARE (M) PART B Jun 20, 2014 PART B [id number] EAMON OLIVIA ERT PATIENT MEDICARE (WNR) MEDICARE (M) PART A Jun 20, 2014 PART A [id number] EAMON OLIVIA ERT PATIENT MEDICARE (WNR) MEDICARE (M) PART B Jun 20, 2014 PART B [id number] EAMON OLIVIA ERT PATIENT OPTUM RX PRESCRIPT ION RX Jun 20, 2023 THPRX [id number] EAMON OLIVIA ERT PATIENT OPTUM RX PRESCRIPT ION RX Jun 20, 2022 THPRX [id number] EAMON OLIVIA ERT PATIENT OPTUM RX PRESCRIPT ION RX Jun 20, 2022 THPRX [id number] [phone] DAVON OLIVIA JR PATIENT [facility] Jun 20, 2017 [id number] [phone] EAMON OLIVIA ERT PATIENT [facility] E Jun 20, 2017 [id number] DAVON OLIVIA JR PATIENT [facility] E Jun 20, 2017 [id number] DAVON OLIVIA JR PATIENT [facility]P Jun 20, 2017 [facility] [id number] EAMON OLIVIA ERT PATIENT [facility] Jun 20, 2023 [id number] EAMON OLIVIA ERT PATIENT Selected Encounter This section includes the information on record at DC for the Encounter. Date/Time Encounter Type Encounter Description Reason Pro vider Source May 03, 2024 12:52 PM Outpatient Encounter [facility] Nursing (RN / LP) IHE Encounter Template Text not used by DC Plan of Treatment: Future Appointments (+ 6 months) and Future Tests (+/- 45 days) The Plan of Treatment section includes future care activities for the patient from all VA treatmentfacilities. This section includes future appointments and future orders which are active, pending or scheduled. Active, Pending, and Scheduled Orders This section [...] Order CBC AND DIFF (AUTO) BLOOD (LAV-BLOOD) [facility] Apr 05, 2024 12:00 AM Laboratory - Chemi stry Order IRON & TIBC PANEL BLOOD (SST-SERUM) [facility] Apr 05, 2024 12:00 AM Laboratory - Chemi stry Order FERRITIN BLOOD (SST-SERUM) [facility] Apr 05, 2024 12:00 AM Laboratory - Chemi stry Order BASIC METABOLIC PANEL (non-fasting) BLOOD (SST-SERUM) [facility] Apr 05, 2024 12:00 AM Laboratory - Chemi stry Order OCCULT BLOOD FIT X1 SCREEN(IN-HOUSE) STOOL FECES [facility] Apr 05, 2024 09:28 AM Consult Order COMMUNITY CARE-NEUROLOGY Cons Group Leader Wafer Polishing's Choice [facility] May 01, 2024 12:00 AM Laboratory - Chemi stry Order CBC AND DIFF (AUTO) BLOOD (LAV-BLOOD) [facility] May 01, 2024 12:00 AM Laboratory - Chemi stry Order IRON & TIBC PANEL BLOOD (SST-SERUM) [facility] May 01, 2024 12:00 AM Laboratory - Chemi stry Order FERRITIN BLOOD (SST-SERUM) [facility] Social History: Smoking Status (Most current) [...] 19, 2023 12:24 PM VA-TOBACCO NEVER USED [facility] Tobacco Use History This section includes a history of the smoking, or tobacco-related health factors, that were collected on or before the date of the Encounter. The data comes from the [place] facility where the Encounter took place. Date/Time Smoking Status/Tobacco Use Comment Flex acility Jan 15, 2021 11:00 AM VA-TOBACCO NEVER USED [facility] Advance Directives: All historical and current [...] 2021 ADVANCE DIRECTIVE BENTON ARAUZ ELZA Lora Chacko [facility] Encounter Notes: All associated encounter notes This section contains the clinical notes associated to the Encounter. Date/Time Encounter Note(s) Provider Source May 03, 2024 12:53 PM NURSING ADMINISTRATIVE NOTE: LOCAL TITLE: [facility] DISCHARGE NOTE STANDARD TITLE: NURSING ADMINISTRATIVE NOTE DATE OF NOTE: MAY 03, 2024@12:53 ENTRY DATE: MAY 03, 2024@12:54 AUTHOR: JENNIFER SEGURA EXP COSIGNER: URGENCY: STATUS: COMPLETED [facility] Discharge Note Type of discharge: Administrative Discharge *During Administrative Discharge period, [facility] Team will continue to provide all clinical care* Date of administrative discharge: Apr Discharge reason: Hospitalization Discharge disposition: 45- day date from administrative discharge requiring full discharge from [facility] Program: May Notify [facility] Pact Team as Co-signers: completed Removed from [facility] [facility] program: completed /sharron/ JENNIFER SEGURA BICYCLE I ASSEMBLER [facility] CLOTH FINISHING RANGE OPERATOR CHIEF Signed: 05/03/2024 12:55 Receipt Acknowledged By: 05/03/2024 13:02 /es/ AMANDO OHARA SUPERVISOR DETASSELING CREW Katerin/[facility] 05/03/2024 16:01 /es/ KALYAN BARBER [facility] CARDIAC SPECIALIST 05/04/2024 09:49 /es/ SANJUANITA PEDROZA [facility] cable tower operator 05/04/2024 15:51 /es/ RAMIN MENDIETA, PT, MS, ATP [facility] Physical Therapist 05/03/2024 13:51 /es/ RIGO FENTON, MS, RDN, LDN Staff Dietitian 05/04/2024 08:13 /es/ Suyapa Tirado REVENUE INTEGRITY ANALYST HB Mobile Electronics Installer 05/03/2024 15:59 /es/ LUIS FERNANDO DIEGOP-C HB NURSE PRACTITIONER 05/03/2024 15:02 /es/ PERI COUCH, BICYCLE I ASSEMBLER [facility] cable tower operator JENNIFER SEGURA [facility]
--- OUTSIDE RECORDS SUMMARY | 2024-05-30 08:55 | XMS_ITS ---
Author Name Department of Vetera Affairs ([place]) Organization [facility] Address [address] [place] [address] Care Team Providers Care Parachute Mender Name Role Phone LUIS FERNANDO FONTANEZ Primary [...] PRESCRIPT ION [id number] 1 Jun 20, 2017 [id number] [phone] EAMON OLIVIA ERT PATIENT MEDICARE (WNR) MEDICARE (M) PART A Jun 20, 2014 PART A [id number] [phone] EAMON OLIVIA ERT PATIENT MEDICARE (WNR) MEDICARE (M) PART B Jun 20, 2014 PART B [id number] [phone] EAMON OLIVIA ERT PATIENT MEDICARE (WNR) MEDICARE (M) PART A Jun 20, 2014 PART A [id number] EAMON OLIVIA ERT PATIENT MEDICARE (WNR) MEDICARE (M) PART B Jun 20, 2014 PART B [id number] EAMON OLIVIA ERT PATIENT OPTUM RX PRESCRIPT ION RX Jun 20, 2023 THPRX [id number] [phone] EAMON OLIVIA ERT PATIENT OPTUM RX PRESCRIPT ION RX Jun 20, 2022 THPRX [id number] [phone] EAMON OLIVIA ERT PATIENT OPTUM RX PRESCRIPT ION RX Jun 20, 2022 THPRX [id number] DAVON OLIVIA JR PATIENT [facility] Jun 20, 2017 [id number] EAMON OLIVIA ERT PATIENT [facility] E Jun 20, 2017 [id number] DAVON OLIVIA JR PATIENT [facility] T[facility] E Jun 20, 2017 [id number] DAVON OLIVIA JR PATIENT [facility] US[facility] Jun 20, 2017 USP [id number] EAMON OLIVIA ERT PATIENT [facility] Jun 20, 2023 [id number] EAMON OLIVIA ERT PATIENT Selected Encounter This section includes the information on record at [place] for the Encounter. Date/Time Encounter Type Encounter Description Reason Provider Source Apr 12, 2024 11:00 AM SPEECH/HEARING THERAPY SPEECH-LANGUAGE PATHOLOGY ICD-10-CM R13.12 Dysphagia, oropharyngeal phase CARMELO WESTFALL [place] Encounter Template Text not used by [place] Assessments - Encounter Diagnoses This section includes the primary and secondary diagnoses documented for the Encounter. Date/Time Primary/Secondary Diagnosis Diagnosis Name Provider Source Apr 18, 2024 06:48 AM PRIMARY Dysphagia, oropharyngeal phase CARMELO WESTFALL [facility] Apr 18, 2024 06:48 AM SECONDARY Dysarthria and anarthria OLIVIA WESTFALLA Kimberly [facility] Plan of Treatment: Future Appointments (+ 6 months) and Future Tests (+/- 45 days) The Plan of Treatment section includes future care activities for the patient from all [place] [facility]. This section includes future appointments [...] 09:00 AM [facility] Apr 26, 2024 11:00 AM AMBULATORY - REHAB MEDICIN E [facility] Active, Pending, and Scheduled Orders This section [...] 29, 2024 07:27 AM Consult Order [facility] NON-SKILLED HOME HEALTH AIDE Cons Interior Specialist's Choice [facility] Feb 29, 2024 01:44 PM Consult Order [facility] THERAPY Cons Interior Specialist's Choice [facility] [employer] Apr 05, 2024 12:00 AM Laboratory - Chemi stry Order CBC AND DIFF (AUTO) BLOOD (LAV-BLOOD) [facility] [employer] Apr 05, 2024 12:00 AM Laboratory - Chemi stry Order IRON & TIBC PANEL BLOOD (SST-SERUM) [facility] Apr 05, 2024 12:00 AM Laboratory - Chemi stry Order FERRITIN BLOOD (SST-SERUM) [facility] [employer] [facility] Apr 05, 2024 12:00 AM Laboratory - Chemi stry Order BASIC METABOLIC PANEL (non-fasting) BLOOD (SST-SERUM) SP [facility] Apr 05, 2024 12:00 AM Laboratory - Chemi stry Order OCCULT BLOOD FIT X1 SCREEN(IN-HOUSE) STOOL FECES SP [facility] Apr 05, 2024 09:28 AM Consult Order COMMUNITY CARE-NEUROLOGY Cons Interior Specialist's Choice [facility] May 01, 2024 12:00 AM Laboratory - Chemi stry Order CBC AND DIFF (AUTO) BLOOD (LAV-BLOOD) [facility] May 01, 2024 12:00 AM Laboratory - Chemi stry Order IRON & TIBC PANEL BLOOD (SST-SERUM) [facility] May 01, 2024 12:00 AM Laboratory - Chemi stry Order FERRITIN BLOOD (SST-SERUM) [facility] Lab Results: +/- 30 days of [...] Range Comment Mar 28, 2024 12:30 PM [facility] LIVER FUNCTION Specimen Type: SERUM No comment entered. Ordering Provider: LUIS FERNANDO FONTANEZ A Report Released Date/Time: Dec 28, 2023 07:18 AM Reporting Lab: [address] [address] Performing Lab: [address] [address] PROTEIN,TOTAL 6.0 g/dL 6.0-8.3 ALBUMIN 3.2 g/dL L 3.5-5.0 ALKALINE PHOSPHATASE 72 U/L 40-150 AST 21 U/L 5-34 ALT <6 U/L BILIRUBIN, TOTAL 0.4 mg/dL 0.2-1.2 Mar 28, 2024 12:30 PM [facility] BASIC METABOLIC PANEL (non-fasting) Specimen Type: SERUM No comment entered. Ordering Provider: LUIS FERNANDO FONTANEZ Report Released Date/Time: Dec 28, 2023 07:18 AM Reporting Lab: [address] [address] Performing Lab: [address] [place] [address] UREA NITROGEN 21 mg/dL 7-25 GLUCOSE 98 mg/dL 65-100 SODIUM 139 mmol/L 135-145 POTASSIUM 3.4 mmol/L L 3.5-5.0 CHLORIDE 102 mmol/L 100-110 CO2 27 meq/L 20-30 CREATININE, Serum 0.88 mg/dL 0.50-1.40 eGFR(CKD-EPI 2020) 90 mL/min >60 Mar 28, 2024 12:30 PM [facility] CBC AND DIFF (AUTO) Specimen Type: BLOOD No comment entered. Ordering Provider: LUIS FERNANDO FONTANEZ Report Released Date/Time: Dec 28, 2023 07:18 AM Reporting Lab: [facility] [address] [facility] [address] Performing Lab: [address] [address] WBC 9.03 10*3/uL 4.50-11.00 RBC 4.16 10*6/uL [...] Source Jan 20, 2021 ADVANCE DIRECTIVE REGLABENTON BERTRAND Lora Chacko CNTL [facility] [employer] Encounter Notes: All associated encounter notes This section contains the clinical notes associated to the Encounter. Date/Time Encounter Note(s) Provider Source Apr 12, 2024 11:11 AM TELEHEALTH NOTE: LOCAL TITLE: VA VIDEO CONNECT SPEECH STANDARD TITLE: TELEHEALTH NOTE DATE OF NOTE: APR 12, 2024@11:11 ENTRY DATE: APR 12, 2024@11:12:11 AUTHOR: AMARIS WESTFALL COSIGNER: URGENCY: STATUS: COMPLETED VA Video Connect (VVC) Standard Documentation VVC Clinician Resources Only: E911 (Emergency Call Relay Center): [phone] National Veterans Crisis Line - 988 then press #1. [facility] Suicide Coordinator [phone], Ext. [phone]; Back-up Ext. [phone] [place] CHITRA Lowry [place] [phone] Introduction: Visit is being conducted by [place] Scancell Connect. identified with 2 identifiers: [X] Full Name [X] Date of [ ] VA ID Card Emergency Plan: Ignacio confirmed and/or provided the following information in case of emergency or technology failure. PATIENT PHONE - PHONE NUMBER [CELLULAR] - Is patient phone number correct, if not, enter below: 's phone number: DAVON GARCIABindu [address], [place], [address] 's present location and address for appointment: as listed Ignacio's emergency contact name and phone number: as listed Ignacio reported that location is private and safe: Yes Informed Consent: Ignacio informed of the risks and benefits of Telehealth video care. has the right to refuse video services. If refuses video visit, a [id number] visit will be scheduled. Ignacio verbalized consent for this video visit: Yes Ignacio provided consent for any other persons present for visit: Yes If yes, who and relationship to patient:spouse Secure visit: Visit was locked for security and privacy:Yes S: is seen today for a treatment of dysphagia via VVC. Active problems - Computerized Problem List is the source for the followin. Obstructive sleep apnea 2. Nephrolithiasis 3. Excessive salivation 4. HTN - Hypertension ([facility] [id number]) 5. Constipation 6. Under care of multiple [...] Gastroesophageal reflux disease 31. AF- Atrial Fibrillation ([facility] [id number]) 32. Parkinson's disease 33. Kidney Stone ([facility] [id number]) Progress notes reviewed. Encounter time - 60 minutes O:The following was addressed during this encounter: Ignacio has been completing exercises using EMST75 Lite set at lowest setting. He In addition, he completed exercises to improve vocal loudness and clarity of speech. Ignacio's spouse reported she is no longer giving pills in puree as he has been tolerating them without the puree. Education provided re: importance of using puree to reduce risk of choking/aspiration. //EDUCATION - 1. . was educated on the importance of eating behavior to a safe swallow and encouraged to slow rate, take smaller sips/bites, chew solids well, and take pills in puree. A: with Parkinson's Disease with recent concerns re: swallowing. Dysphagia is a common symptom of PD and will benefit from dysphagia tx. Ignacio also has dysarthria and reduced intelligibility as a result. He will benefit from instruction in compensatory strategies to improve communication abilities. P: DEMI 04/26/24 @ 1100 via Katerin /sharron/ AMARIS WESTFALL M.S.,CCC-PIPE OR STEAM FITTER FURNACE INSTALLER SPEECH-LANGUAGE PATHOLOGIST Signed: 04/18/2024 06:51 Receipt Acknowledged By: 04/18/2024 09:25 /sharron/ EBONY ZIMMERMAN ADVANCED S3B MULTI SENSOR OPERATOR MALOU,AMARIS [facility]
--- OUTSIDE RECORDS SUMMARY | 2024-05-30 08:55 | XMS_ITS | Encounter Summary ---
Author Name Department of [place] Organization [place] Address [address] [place] [address] Care Team Providers Care Clinical Trial Specialist Name Role Phone HUSEYIN LUIS FERNANDO Primary [...] PRESCRIPT ION [id number] 1 Jun 20, 2017 [id number] [phone] EAMON OLIVIA ERT PATIENT MEDICARE (WNR) MEDICARE (M) PART A Jun 20, 2014 PART A [id number] EAMON OLIVIA ERT PATIENT MEDICARE (WNR) MEDICARE (M) PART B Jun 20, 2014 PART B [id number] EAMON OLIVIA ERT PATIENT MEDICARE (WNR) MEDICARE (M) PART A Jun 20, 2014 PART A [id number] [phone] EAMON OLIVIA ERT PATIENT MEDICARE (WNR) MEDICARE (M) PART B Jun 20, 2014 PART B [id number] EAMON OLIVIA ERT PATIENT OPTUM RX PRESCRIPT ION RX Jun 20, 2023 THPRX [id number] EAMON OLIVIA ERT PATIENT OPTUM RX PRESCRIPT ION RX Jun 20, 2022 THPRX [id number] EAMON OLIVIA ERT PATIENT OPTUM RX PRESCRIPT ION RX Jun 20, 2022 THPRX [id number] DAVON OLIVIA JR PATIENT [facility] Jun 20, 2017 [id number] EAMON OLIVIA ERT PATIENT [facility] TON [facility] E Jun 20, 2017 [id number] DAVON OLIVIA JR PATIENT [facility] E Jun 20, 2017 [id number] DAVON OLIVIA JR PATIENT [facility] USP Jun 20, 2017 USP [id number] EAMON OLIVIA ERT PATIENT [facility] Jun 20, 2023 [id number] [phone] EAMON OLIVIA ERT PATIENT Selected Encounter This section includes the information on record at [place] for the Encounter. Date/Time Encounter Type Encounter Description Reason Provider Source Apr 10, 2024 06:56 AM QNHP OL DIG ASSMT&MGMT 5-10 CLINICAL PHARMACY ICD-10-CM Z51.81 Encounter for therapeutic drug level monitoring LORENZO PICHARDO [facility] Encounter Template Text not used by [place] Assessments - Encounter Diagnoses This section includes the primary and secondary diagnoses documented for the Encounter. Date/Time Primary/Secondary Diagnosis Diagnosis Name Provider Source Apr 10, 2024 07:01 AM PRIMARY Encounter for therapeutic drug level monitoring MAO PICHARDO [place] Plan of Treatment: Future Appointments (+ 6 [...] 20 appointments. The data comes from all [facility] facilities. Appointment Date/Time Appointment Type Appointme nt Facility Name Apr 12, 2024 11:00 AM AMBULATORY - REHAB MEDICIN E [place] [facility] Apr 26, 2024 09:00 AM [facility] Apr 26, 2024 11:00 AM AMBULAT[facility] - [facility] Active, Pending, and Scheduled Orders This section includes a listing of several types of active, pending, and scheduled orders, including clinic medications orders, diagnostic test orders, procedure orders and consult orders; where the start date of the order is 45 days before the date of the Encounter or 45 days after the date of theEncounter. The data comes from all [facility]. Test Date/Time Test Type Test Details Facility Name Feb 29, 2024 07:27 AM Consult Order [facility] NON-SKILLED HOME HEALTH AIDE Cons Weaver Hand Loom's Choice [facility] Feb 29, 2024 01:44 PM Consult Order [facility]-SPEECH THERAPY Cons Weaver Hand Loom's Choice [facility] Apr 05, 2024 12:00 AM Laboratory - Chemi stry Order CBC AND DIFF (AUTO) BLOOD (LAV-BLOOD) [facility] Apr 05, 2024 12:00 AM Laboratory - Chemi stry Order IRON & TIBC PANEL BLOOD (SST-SERUM) [facility] Apr 05, 2024 12:00 AM Laboratory - Chemi stry Order FERRITIN BLOOD (SST-SERUM) [facility] Apr 05, 2024 12:00 AM Laboratory - Chemi stry Order BASIC METABOLIC PANEL (non-fasting) BLOOD (SST-SERUM) [facility] Apr 05, 2024 12:00 AM Laboratory - Chemi stry Order OCCULT BLOOD FIT X1 SCREEN(IN-HOUSE) STOOL FECES SP [facility] Apr 05, 2024 09:28 AM Consult Order [facility] CARE-NEUROLOGY Cons Weaver Hand Loom's Choice [facility] May 01, 2024 12:00 AM Laboratory - Chemi stry Order CBC AND DIFF (AUTO) BLOOD (LAV-BLOOD) SP [facility] May 01, 2024 12:00 AM Laboratory - Chemi stry Order IRON & TIBC PANEL BLOOD (SST-SERUM) SP [facility] May 01, 2024 12:00 AM Laboratory - Chemi stry Order FERRITIN BLOOD (SST-SERUM) [facility] Lab Results: +/- 30 days of the encounter This section includes the Chemistry and Hematology Lab Results on record with [place] for the patient. Radiology Reports and Pathology [...] Dec 28, 2023 07:18 AM Reporting Lab: [address] [address] Performing Lab: [address] [address] PROTEIN,TOTAL 6.0 g/dL 6.0-8.3 ALBUMIN 3.2 g/dL L 3.5-5.0 ALKALINE PHOSPHATASE 72 U/L 40-150 AST 21 U/L 5-34 ALT <6 U/L BILIRUBIN, TOTAL 0.4 mg/dL 0.2-1.2 Mar 28, 2024 12:30 PM [facility] BASIC METABOLIC PANEL (non-fasting) Specimen Type: SERUM No comment entered. Ordering Provider: LUIS FERNANDO FONTANEZ A Report Released Date/Time: Dec 28, 2023 07:18 AM Reporting Lab: [address] [address] Performing Lab: [facility] [address] [facility] [address] UREA NITROGEN 21 mg/dL 7-25 GLUCOSE 98 [...] AM Reporting Lab: [facility] [address] [facility] [address] Performing Lab: [facility] [address] [facility] [address] WBC 9.03 10*3/uL 4.50-11.00 RBC 4.16 10*6/uL [...] Source Jan 20, 2021 ADVANCE DIRECTIVE AALIYAHBENTON SACLEDO Lora Chacko CNTRTricia TRE[facility] Encounter Notes: All associated encounter notes This section contains the clinical notes associated to the Encounter. Date/Time Encounter Note(s) Provider Source Apr 10, 2024 06:58 AM MEDICATION MGT CON SULT: LOCAL TITLE: CONSULT REPORT/NON FORMULARY PADR STANDARD TITLE: MEDICATION MGT CONSULT DATE OF NOTE: APR 10, 2024@06:58 ENTRY DATE: APR 10, 2024@06:58:57 AUTHOR: MAO PICHARDO EXP COSIGNER: URGENCY: STATUS: COMPLETED The medical record has been reviewed with regard to this restricted drug request. Medication requested: DRESSING,MEPILEX BORDER FLEX 6IN X 7.5IN Medication indication: pressure ulcer Medical history relevant to this request: please specify which size of dressing you are requesting from the [facility] ones listed below: - 4x4 inches - 6x6 - 3x3 - 6x7.5 [facility] one that is requested: rder is for Mepilex sacrum border dressing 6.3 X 7.9 #[id number] Please resubmit the order w/ clarification if size 6x7.5 is appropriate thank you The request does not meet criteria - The preferred alternative therapeutic option(s) have not been exhausted Comment: please note the sizes available /sharron/ MAO PICHARDO [facility] COORDINATOR Signed: 04/10/2024 07:02 Receipt Acknowledged By: 04/10/2024 07:25 /sharron/ JENNIFER SEGURA RN BSN [facility] MUD GRINDER MAO PICHARDO
--- OUTSIDE RECORDS SUMMARY | 2024-05-30 08:55 | XMS_ITS | Encounter Summary ---
Author Name [facility] [place] [facility] [place] Address [address] [place] [address] Care Team Providers Care Wiring Mechanic Name Role Phone LUIS FERNANDO FONTANEZ Primary Care Provider Unavailabl e AMANDO OHARA Unavailable Unavailable RARAMIN KEYES Unavailable Unavailable FEILEN, KALYAN Unavailable Unavailable MALCOLM, DAMANIVAL Unavailable Unavailable RIGO FENTON Unavailable Unavailable RISING, JENNIFER Unavailable Unavailable SAMUEL, AMARIS Unavailable Unavailable IMTALI, CANDICE Unavailable Unavailable Insurance Providers: All historical [...] PRESCRIPT ION [id number] 1 Jun 20, 2017 [id number] [phone] EAMON OLIVIA ERT PATIENT MEDICARE (WNR) MEDICARE (M) PART A Jun 20, 2014 PART A [id number] EAMON OLIVIA ERT PATIENT MEDICARE (WNR) MEDICARE (M) PART B Jun 20, 2014 PART B [id number] EAMON OLIVIA ERT PATIENT MEDICARE (WNR) MEDICARE (M) PART A Jun 20, 2014 PART A [id number] EAMON OLIVIA ERT PATIENT MEDICARE (WNR) MEDICARE (M) PART B Jun 20, 2014 PART B [id number] [id number] EAMON OLIVIA ERT PATIENT OPTUM RX PRESCRIPT ION RX Jun 20, 2023 THPRX [id number] EAMON OLIVIA ERT PATIENT [employer] RX PRESCRIPT ION RX Jun 20, 2022 THPRX [id number] EAMON OLIVIA ERT PATIENT [employer] RX PRESCRIPT ION RX Jun 20, 2022 THPRX [id number] DAVON OLIVIA JR PATIENT [facility] TON MAR Jun 20, 2017 [id number] EAMON OLIVIA ERT PATIENT [facility] TON PEÑA E Jun 20, 2017 [id number] DAVON OLIVIA JR PATIENT [facility] PEÑA E Jun 20, 2017 [id number] DAVON OLIVIA JR PATIENT [facility] USP Jun 20, 2017 USP [id number] EAMON OLIVIA ERT PATIENT [facility] TON Jun 20, 2023 [id number] EAMON OLIVIA ERT PATIENT Selected Encounter This section includes the information on [place] at [place] for the Encounter. 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 Date/Time Primary/Secondary Diagnosis Diagnosis Name Provider Source Apr 04, 2024 02:39 PM PRIMARY Other jail (current) drug therapy [place] GE[place] [facility] [place] [facility] Plan [...] 11:00 AM AMBULATORY - [place] MEDICIN E [place] [facility] Apr 26, 2024 09:00 AM AMBULATORY - MEDICINE [facility] Apr 26, 2024 11:00 AM AMBULATORY - [facility]IN [facility] Active, Pending, and Scheduled Orders This section includes a listing of several types of active, pending, and scheduled orders, including clinic medications orders, diagnostic test orders, procedure orders and consult orders; where the start date of the order is 45 days before the date of the Encounter or 45 days after the date of theEncounter. The data comes from all [facility] facilities. Test Date/Time Test Type Test Details Facility Name Feb 29, 2024 07:27 AM Consult Order [facility]ITY [facility] NON-SKILLED HOME HEALTH AIDE Cons Director Motion Picture's Choice [facility] Feb 29, 2024 01:44 PM Consult Order [facility] Cons Director Motion Picture's Choice [facility] Apr 05, 2024 12:00 AM Laboratory - Chemi stry Order CBC AND DIFF (AUTO) BLOOD (LAV-BLOOD) [facility] Apr 05, 2024 12:00 AM Laboratory - Chemi stry Order IRON & TIBC PANEL BLOOD (SST-SERUM) SP [facility] Apr 05, 2024 12:00 AM Laboratory - Chemi stry Order FERRITIN BLOOD (SST-SERUM) [facility] Apr 05, 2024 12:00 AM Laboratory - Chemi stry Order BASIC METABOLIC PANEL (non-fasting) BLOOD (SST-SERUM) [facility] Apr 05, 2024 12:00 AM Laboratory - Chemi stry Order OCCULT BLOOD FIT X1 SCREEN(IN-HOUSE) STOOL FECES SP [facility] Apr 05, 2024 09:28 AM Consult Order COMMUNITY CARE-NEUROLOGY Cons Director [employer] Picture[employer] Choice [facility] May 01, 2024 12:00 AM Laboratory - Chemi stry Order CBC AND DIFF (AUTO) BLOOD (LAV-BLOOD) [facility] May 01, 2024 12:00 AM Laboratory - Chemi stry Order IRON & TIBC PANEL BLOOD (SST-SERUM) SP [facility] May 01, 2024 12:00 AM Laboratory - Chemi stry Order FERRITIN BLOOD (SST-SERUM) [facility] Lab Results: +/- [...] Range Comment Mar 28, 2024 12:30 PM [facility] LIVER FUNCTION Specimen Type: SERUM No comment entered. Ordering Provider: LUIS FERNANDO FONTANEZ Report Released Date/Time: Dec 28, 2023 07:18 AM Reporting Lab: [address] [address] Performing Lab: [address] [address] PROTEIN,TOTAL 6.0 g/dL 6.0-8.3 ALBUMIN 3.2 g/dL L 3.5-5.0 ALKALINE PHOSPHATASE 72 U/L 40-150 AST 21 U/L 5-34 ALT <6 U/L BILIRUBIN, TOTAL 0.4 mg/dL 0.2-1.2 Mar 28, 2024 12:30 PM [facility] BASIC METABOLIC PANEL (non-fasting) Specimen Type: SERUM No comment entered. Ordering Provider: LUIS FERNANDO FONTANEZ Report Released Date/Time: Dec 28, 2023 07:18 AM Reporting Lab: [facility] [address] [facility] [address] Performing Lab: [facility] [address] [facility] [address] UREA NITROGEN 21 mg/dL 7-25 GLUCOSE 98 mg/dL 65-100 SODIUM 139 mmol/L 135-145 POTASSIUM 3.4 mmol/L L 3.5-5.0 CHLORIDE 102 mmol/L 100-110 CO2 27 meq/L 20-30 CREATININE, Serum 0.88 mg/dL 0.50-1.40 eGFR(CKD-EPI 2020) 90 mL/min >60 Mar 28, 2024 12:30 PM [facility] CBC AND DIFF (AUTO) Specimen Type: BLOOD No comment entered. Ordering Provider: LUIS FERNANDO FONTANEZ Report Released Date/Time: Dec 28, 2023 07:18 AM Reporting Lab: [address] [address] Performing Lab: [address] [address] WBC 9.03 10*3/uL 4.50-11.00 RBC 4.16 10*6/uL [...] 19, 2023 12:24 PM VA-TOBACCO NEVER USED [facility] Tobacco Use History This section includes a history of the smoking, or tobacco-related health factors, that were collected on or before the date of the Encounter. The data comes from the [place] facility where the Encounter took place. Date/Time Smoking Status/Tobacco Use Comment F acility Jan 15, 2021 11:00 AM VA-TOBACCO NEVER USED [facility] Advance Directives: All historical and [...] Jan 20, 2021 ADVANCE DIRECTIVE BENTON ARAUZ [facility] Encounter Notes: All associated encounter notes This section contains the clinical notes associated to the Encounter. Date/Time Encounter Note(s) Provider Source Apr 04, 2024 02:28 PM [facility] MEDICATION MGT NOTE: LOCAL TITLE: [facility] PHARMACY MEDICATION REVIEW STANDARD TITLE: [facility] MEDICATION MGT NOTE DATE OF NOTE: APR 04, 2024@14:28 ENTRY DATE: APR 04, 2024@14:28:59 AUTHOR: CANDICE GEORGE EXP COSIGNER: URGENCY: STATUS: COMPLETED DAVON OLIVIA JR is a 73 year old WHITE MALE. Active Problem Obstructive sleep apnea G47.33 01/30/2024 LUIS FERNANDO FONTANEZ A Nephrolithiasis N20.0 01/16/2024 CANDICE JASMINE Excessive salivation K11.7 01/13/2024 LUIS FERNANDO FONTANEZ A HTN - Hypertension (SCT [id number]) I 01/13/2024 LUIS FERNANDO FONTANEZ A Constipation K59.00 10/21/2023 CÉSAR JONES Under care of multiple providers R6 10/05/2023 LUIS FERNANDO FONTANEZ A Exposure to potentially hazardous s 08/31/2023 KYLER [...] Onset 01/19/2023October,VLAD Patel Urinary incontinence R32., Onset 01/19/2023October,VLAD Patel Insomnia G47.00, Onset 01/19/2023October,VLAD P Gastroesophageal reflux disease K21 01/19/2023October,VLAD P AF- Atrial Fibrillation ([facility] [id number] 10/05/2023LUIS FERNANDO A Parkinson's disease G20.A1 02/25/2024 LUIS FERNANDO FONTANEZ A Kidney Stone ([facility] [id number]) N20.0 01/15/2021 VIJAY CHA Alcohol (-) Tobacco [...] ACTIVE (S) DAILY FOR STOMACH ACID 11) HYDROCHLOROTHIAZIDE 25MG TAB TAKE ONE TABLET BY MOUTH ACTIVE (S) ONCE DAILY FOR HIGH BLOOD PRESSURE 12) HYDROPHILIC (EQV EUCERIN) TOP CREAM APPLY A LIBERAL ACTIVE AMOUNT TOPICALLY ONCE DAILY FOR DRY SKIN 13) INCONT LINER PREVAIL GUARDS #[id number] USE 1 LINER ACTIVE TOPICALLY TWO TIMES A DAY 14) INCONT LINER,MENS X-HVY SURECARE #[id number] USE 1 LINER ACTIVE TOPICALLY AT BEDTIME 15) INCONTINENCE WRAP,MALE USE 1 INCONTINENCE WRAP ACTIVE TOPICALLY AT BEDTIME 16) MELATONIN 5MG CAP/TAB TAKE THREE CAPSULE/TABLETS BY ACTIVE (S) MOUTH AT BEDTIME FOR INSOMNIA 17) MEMANTINE HCL 10MG TAB TAKE ONE TABLET BY MOUTH TWICE ACTIVE DAILY 18) MIDODRINE HCL 5MG TAB TAKE ONE TABLET BY MOUTH THREE ACTIVE TIMES DAILY NEEDED FOR LOW BLOOD PRESSURE 19) MULTIVITAMIN/MINERALS LIQUID TAKE 1 TABLESPOON (15ML) ACTIVE BY MOUTH ONCE DAILY FOR VITAMIN SUPPLEMENTATION 20) OATMEAL,COLLOIDAL [...] TABLET BY MOUTH ACTIVE (S) ONCE DAILY 24) UNDERPAD,BED ULTRASORB [id number] M#[id number] USE 2 UNDERPADS ACTIVE TOPICALLY AT BEDTIME 25) URINARY DRAINAGE BAG HOYT #[id number] USE 1 URINARY ACTIVE DRAINAGE BAG EVERY 7 DAYS Pending Outpatient Medications Status 1) DRESSING,MEPILEX BORDR 6.3X7.9IN #328050 APPLY 1 PENDING DRESSING DIRECTED 3XWEEK NEEDED Inactive Outpatient Medications Status 1) GLYCOPYRROLATE 2MG TAB TAKE ONE TABLET BY MOUTH DIRECTED BY PROVIDER 2-3 TIMES PER DAY NEEDED FOR SECRETIONS 2) HYDROXYZINE HCL 10MG TAB TAKE ONE TABLET [...] WBC RBC HGB HCT MCV MCH PLT 03/28/2024 12:30 BLOOD 9.03 4.16 L 12.1 L 37.7 L 90.6 29.1 279 10/10/2023 14:00 BLOOD 7.10 5.13 15.1 45.5 88.7 29.4 281 05/26/2023 12:00 BLOOD 7.69 4.72 14.0 43.4 91.9 29.7 296 SERUM Oct Oct 09 May 26 Reference 2023 2023 2022 12:30 14:00 12:00 Units Ranges GLUCOSE 98 82 89 mg/dL 65 - 100 BUN 21 16 17 mg/dL 7 - 25 CREATININE 0.88 1.17 1.08 mg/dL .5 - 1.4 Sodium 139 139 139 mmol/L 135 - 145 K+/Pot 3.4 L 3.5 3.5 mmol/L 3.5 - 5 CL 102 99 L 99 L mmol/L 100 - 110 CO2 27 31 H 31 H mEq/L 20 - 30 CA 9.1 mg/dL 8.5 - 10.2 MAG 2.0 mg/dL 1.6 - 2.6 eGFR CKD-EPI 202003/28/24 12:30 90 SERUM eGFR CKD-EPI 202010/10/23 14:00 65 SERUM eGFR CKD-EPI 202005/26/23 12:00 72 SERUM LIVER PANEL TREND Collection DT Spec AST ALT T BILI ALK DAGMAR T. PROT ALBUMIN 03/28/2024 12:30 SERUM 21 <6 0.4 72 6.0 3.2 L 10/10/2023 14:00 SERUM 21 14 0.4 77 [...] FOLATE 13.68 13.04 ng/mL Ref: >=5.2 CrCl: 64.1 mL/min (C&G, IBW) Vitals: Ht: 65 in [165.1 cm] (04/26/2023 11:00) Wt: 167 lb [75.75 kg] (04/26/2023 11:00) BMI: BMI: 27.8 BP: 114/68 (03/28/2024 19:02) HR: 74 (03/28/2024 19:02) Pain: 0 (03/28/2024 19:02) ASSESSMENT: In the last 90 days - No infections noted - [facility] RN 01/23/24: pt had a choking episode while swallowing pills last week requiring Heimlich maneuver by spouse. [facility] pharmacist provided list of crushable/alternative oral dosage forms for current med list as requested. Swallow eval consult entered - [facility] post fall note 01/23/24: Where: Living room. How: spouse reports bent over and lost his balance - no pharmacy med review requested - [facility] post fall note 02/01/24: Where: getting out of wheelchair. How: lost balance - no pharmacy med review requested - [facility] post fall note 02/28/24: Where: living room. How: fell over - no pharmacy med review requested - [facility] post fall note 03/08/24: Where: In Hallway. How: Patient walking with walker, knees buckled - no pharmacy med review requested - [facility] hospital notification 03/16/24: pt was hospitalized at [facility] from 03/15/24-03/16/24 for fever of 100.0 and elevated BP of 170/93. Pt found to have hematuria. Awaiting urine cx results - [facility] RN phone 03/22/24: pt is afebrile and normotensive s/p hospital d/c - [facility] RN 03/28/24: pt requesting MVI/minerals in liquid formulation - order updated by [facility] RECORD CUTTER. COVID-19 and flu vaccines administered INTERVENTIONS/SUGGESTIONS: 1. Patient's medications were reviewed for [...] function with an estimated creatinine clearance of 64.1 mL/min, therefore at risk of accumulation of [...] orthostatic hypotension. 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 Could [...] have an appropriate indication and supporting clinical symptoms. 6. Adherence Issues: PEG powder 17g daily - last filled 08/05/23 x 90 days 7. Health Maintenance: > Immunizations: The CDC recommends two doses of the zoster vaccine (Shingrix) for immunocompetent adults >/= 50 (even if previously vaccinated with ZostaVax; if previously received ZostaVax, wait 8 weeks to give Shingrix). Two injections are needed by 2-6 months. Patient is otherwise UTD. -> Pt declined Shingrix vaccine on 03/28/24 > Bladder/Bowel: Inquire about incontinence and severity biannually. > Exercise/Physical Activity [id number] aerobic activity 3-5x per week. Weight or resistance exercises. Flexibility activities to maintain ROM. Balance training to improve stability and prevent falls. > Bone Health: Calcium/vitamin D (diet and/or supplement): Men >70 yo: 1200mg Ca/800 international units vit D daily 8. Patient with zero refills on: memantine 9. Continue to review quarterly. 10. Other - Renew glycopyrrolate and hydroxyzine if needed. - Assess adherence to PEG powder 17g daily (last filled on 08/05/23 x 90 days). Consider updating order to prn if pt is not taking daily. - Last K slightly low (3.4) on 03/28/24. Continue to monitor for hypokalemia while on HCTZ. The details of this review were shared with the IDT in order to assist in creating a care plan designed to provide services focused on the health and well being of the patient. Time Spent: 45 min /sharron/ Paul StoreyD Clinical Trimmer Operator Three Knife Signed: 04/04/2024 14:53 Receipt Acknowledged By: 04/06/2024 11:02 /sharron/ JENNIFER SEGURA LICENSED MORTGAGE LOAN OFFICER [facility] TELEVISION PICTURE TUBE REBUILDER 04/05/2024 15:53 /es/ LUIS FERNANDO FONTANEZ DOOR CLAMPER-C [facility] NURSE PRACTITIONER CANDICE GEORGERL VANE HELLER [facility]
--- OUTSIDE RECORDS SUMMARY | 2024-05-30 08:55 | XMS_ITS ---
Author Name [facility] [place] Organization [place] Address [address] [place] [id number] Care Team Providers Care Clam Sorter Name Role Phone LUIS FERNANDO FONTANEZ Primary [...] ALT ION [id number] 1 Jun 20, 2017 [id number] EAMON OLIVIA ERT PATIENT MEDICARE (WNR) MEDICARE (M) PART A Jun 20, 2014 PART A [id number] EAMON OLIVIA ERT PATIENT MEDICARE (WNR) MEDICARE (M) PART B Jun 20, 2014 PART B [id number] EAMON OLIVIA ERT PATIENT MEDICARE (WNR) MEDICARE (M) PART A Jun 20, 2014 PART A [id number] EAMON OLIVIA ERT PATIENT MEDICARE (WNR) MEDICARE (M) PART B Jun 20, 2014 PART B [id number] EAMON OLIVIA ERT PATIENT OPTUM RX PRESCRIPT ION RX Jun 20, 2023 THPRX [id number] [phone] EAMON OLIVIA ERT PATIENT OPTUM RX PRESCRIPT ION RX Jun 20, 2022 THPRX [id number] EAMON OLIVIA ERT PATIENT OPTUM RX PRESCRIPT ION RX Jun 20, 2022 THPRX [id number] [phone] DAVON OLIVIA JR PATIENT [facility] TON MAR Jun 20, 2017 [id number] [phone] EAMON OLIVIA ERT PATIENT [facility] TON PEÑA E Jun 20, 2017 [id number] DAVON OLIVIA JR PATIENT [facility] TON EPÑA E Jun 20, 2017 [id number] DAVON OLIVIA JR PATIENT [facility] USP Jun 20, 2017 USP [id number] EAMON OLIVIA ERT [facility] Jun 20, 2023 [id number] [phone] EAMON OLIVIA ERT PATIENT Selected Encounter This section includes the information on record at [place] for the Encounter. Date/Time Encounter Type Encounter Description Reason Pro vider Source Apr 17, 2024 09:19 AM Outpatient Encounter [facility] PHYSIC EXTND(ELECTRIC SCREW DRIVER OPERATOR,SUSTAINABILITY OFFICER,PA) IHE Encounter Template Text not used by [...] 09:00 AM AMBULATORY - MEDICINE [facility] Apr 26, 2024 11:00 AM AM[facility]ULATORY [facility] E [place] [facility] Active, Pending, and Scheduled Orders This section includes a listing of several types of active, pending, and scheduled orders, including clinic medications orders, diagnostic test orders, procedure orders and consult orders; where the start date of the order is 45 days before the date of the Encounter or 45 days after the date of theEncounter. The data comes from all [place] treatment facilities. Test Date/Time Test Type Test Details Facility Name Apr 05, 2024 12:00 AM Laboratory - Chemi stry Order CBC AND DIFF (AUTO) BLOOD (LAV-BLOOD) [facility] Apr 05, 2024 12:00 AM Laboratory - Chemi stry Order IRON & TIBC PANEL BLOOD (SST-SERUM) [facility] Apr 05, 2024 12:00 AM Laboratory - Chemi stry Order FERRITIN BLOOD (SST-SERUM) [facility] Apr 05, 2024 12:00 AM Laboratory - Chemi stry Order BASIC METABOLIC PANEL (non-fasting) BLOOD (SST-SERUM) [facility] Apr 05, 2024 12:00 AM Laboratory - Chemi stry Order OCCULT BLOOD FIT X1 SCREEN(IN-HOUSE) STOOL FECES [facility] Apr 05, 2024 09:28 AM Consult Order COMMUNITY CARE-NEUROLOGY Cons Environmental Coordinator's Choice [place] [facility] May 01, 2024 12:00 AM Laboratory - Chemi stry Order CBC AND DIFF (AUTO) BLOOD (LAV-BLOOD) [facility] May 01, 2024 12:00 AM Laboratory - Chemi stry Order IRON & TIBC PANEL BLOOD (SST-SERUM) [facility] May 01, 2024 12:00 AM Laboratory - Chemi stry Order FERRITIN BLOOD (SST-SERUM) [facility] Lab Results: +/- 30 days [...] Range Comment Mar 28, 2024 12:30 PM [facility] LIVER FUNCTION Specimen Type: SERUM No comment entered. Ordering Provider: LUIS FERNANDO FONTANEZ Report Released Date/Time: Dec 28, 2023 07:18 AM Reporting Lab: [address] [address] Performing Lab: [address] [address] PROTEIN,TOTAL 6.0 g/dL 6.0-8.3 ALBUMIN 3.2 g/dL L 3.5-5.0 ALKALINE PHOSPHATASE 72 U/L 40-150 AST 21 U/L 5-34 ALT <6 U/L BILIRUBIN, TOTAL 0.4 mg/dL 0.2-1.2 Mar 28, 2024 12:30 PM [facility] BASIC METABOLIC PANEL (non-fasting) Specimen Type: SERUM No comment entered. Ordering Provider: LUIS FERNANDO FONTANEZ Report Released Date/Time: Dec 28, 2023 07:18 AM Reporting Lab: [address] [address] Performing Lab: [address] [address] UREA NITROGEN 21 mg/dL 7-25 GLUCOSE 98 mg/dL 65-100 SODIUM 139 mmol/L 135-145 POTASSIUM 3.4 mmol/L L 3.5-5.0 CHLORIDE 102 mmol/L 100-110 CO2 27 meq/L 20-30 CREATININE, Serum 0.88 mg/dL 0.50-1.40 eGFR(CKD-EPI 2020) 90 mL/min >60 Mar 28, 2024 12:30 PM [facility] CBC AND DIFF (AUTO) Specimen Type: BLOOD No comment entered. Ordering Provider: LUIS FERNANDO FONTANEZ Report Released Date/Time: Dec 28, 2023 07:18 AM Reporting Lab: [facility] [address] [facility] [address] Performing Lab: [facility] [address] [facility] [address] WBC 9.03 10*3/uL 4.50-11.00 RBC 4.16 10*6/uL [...] 19, 2023 12:24 PM VA-TOBACCO NEVER USED [facility] Tobacco Use History This section includes a history of the smoking, or tobacco-related health factors, that were collected on or before the date of the Encounter. The data comes from the [place] facility where the Encounter took place. Date/Time Smoking Status/Tobacco Use Comment Flex jc Jan 15, 2021 11:00 AM VA-TOBACCO NEVER USED [facility] Advance Directives: All historical and current [...] 2021 ADVANCE DIRECTIVE BENTON ARAUZ ELZA [facility] Encounter Notes: All associated encounter notes This section contains the clinical notes associated to the Encounter. Date/Time Encounter Note(s) Provider Source Apr 17, 2024 09:45 AM ADDENDUM: LOCAL TITLE: Addendum STANDARD TITLE: ADDENDUM DATE OF NOTE: APR 17, 2024@09:45:43 ENTRY DATE: APR 17, 2024@09:45:44 AUTHOR: KALYAN BARBER EXP COSIGNER: URGENCY: STATUS: COMPLETED alerting rehab staff for tracking /sharron/ KALYAN BARBER [facility] WHOLESALE PARTS SALESPERSON Signed: 04/17/2024 09:46 Receipt Acknowledged By: 04/18/2024 14:34 /es/ DANIELLE FLORES OTR/Tricia [facility] OCCUPATIONAL THERAPIST 04/17/2024 14:22 /es/ SPRING NEVES PT [facility] PHYSICAL THERAPIST === --- Original Document --- 04/17/24 [facility] POST FALL ASSESSMENT NOTE: [facility] FALL ASSESSMENT NOTE Date of Fall: 04/16/2024 Time of Fall: noon PM Warehouse Team Leader: Jennifer Segura Fall was witnessed: Yes, by whom: Description of Fall: Where: Living room How: got up and fell backwards in living room hit electric w/c Injury: Yes Location: Right hip closed impacted fracture Side: Right Other Information Pertinent to Fall: CT head X2 no bleed Level of Injury: 3 = Major (permanent lessening of bodily function, fx, etc.) Symptoms Prior to Fall: none Assistive Device in Use at Time of Fall: other (Specific) not clear if he tried to use rollator Contributing Factors at time of fall: gait or imbalance, other (specific) parkinson's disease Environmental Factors: none Contributing diagnosis to current fall: neurological (ALS, MS, Parkinson's) If fall occurred while HC/[facility] staff was providing direct patient care in the home, report on Joint Patient Safety Reporting Site (JPSR) found on [facility] Intranet home page. No, not applicable Is patient currently receiving PT/OT services: Yes Pt referred to PT/OT: No last PT home visit 2 weeks ago Patient Declines NO Interventions: PCP Notified Program Follow-up: Interdisciplinary Team reviews recent falls and modifies Patient's care plan as appropriate. Paste Up Artist Apprentice (or designee) tracks all falls, observes trends, and modifies Falls Prevention Plan as needed. Fall data is reported to [facility] Patient Signing Teacher on a quarterly basis. /sharron/ LUIS FERNANDO DIEGOP-C [facility] NURSE PRACTITIONER Signed: 04/17/2024 09:25 Receipt Acknowledged By: * AWAITING SIGNATURE * AMANDO OHARA 04/17/2024 09:45 /es/ KALYAN BARBER [facility] WHOLESALE PARTS SALESPERSON 04/17/2024 09:37 /es/ RAMIN MENDIETA, PT, MS, ATP [facility] Physical Therapist 04/17/2024 10:25 /es/ JENNIFER SEGURA RUG CLEANER HELPER [facility] CHIEF ENGINEER DRILLING AND RECOVERY 04/17/2024 09:47 /es/ RIGO FENTON, MS, RDN, LDN Staff Dietitian 04/17/2024 15:45 /es/ OLEG Sandhu [facility] Side Seam Envelope Machine Operator KALYAN BARBER [place] CNTRL WSTRN [facility] Apr 17, 2024 09:26 AM [facility] NOTE: LOCAL TITLE: [facility] HOSPITAL NOTIFICATION STANDARD TITLE: [facility] NOTE DATE OF NOTE: APR 17, 2024@09:26 ENTRY DATE: APR 17, 2024@09:26:48 AUTHOR: LUIS FERNANDO FONTANEZ EXP COSIGNER: URGENCY: STATUS: COMPLETED captain of guards: Vicky Provider: Jose Reason for Admission: s/p fall right hip fracture, head traum Facility Admitted to: [facility] Date of Admission: Mar Date of Discharge: Covid-19 Testing Performed: Current Status of Patient: Hospital Is [facility] providing care in the home: No Request for records made to Right : Comments: having right him surgery 04/18/24 /sharron/ LUIS FERNANDO FONTANEZ SHACTOR HELPER-C [facility] NURSE PRACTITIONER Signed: 04/17/2024 09:27 Receipt Acknowledged By: 04/19/2024 06:42 /es/ AMANDO MERRITTUT TECH WRITER GEKaterin/[facility] 04/17/2024 10:25 /es/ JENNIFER SEGURA RUG CLEANER HELPER [facility] CHIEF ENGINEER DRILLING AND RECOVERY 04/17/2024 09:44 /es/ KALYAN BARBER [facility] WHOLESALE PARTS SALESPERSON LUIS FERNANDO FONTANEZ [place] [facility] WSTRN [facility] Apr 17, 2024 09:19 AM NURSING FALL RISK ASSESSMENT NOTE: LOCAL TITLE: [facility] POST FALL ASSESSMENT NOTE STANDARD TITLE: NURSING FALL RISK ASSESSMENT NOTE DATE OF NOTE: APR 17, 2024@09:19 ENTRY DATE: APR 17, 2024@09:19:45 AUTHOR: LUIS FERNANDO FONTANEZ EXP COSIGNER: URGENCY: STATUS: COMPLETED [facility] POST FALL ASSESSMENT NOTE Has ADDENDA [facility] FALL ASSESSMENT NOTE Date of Fall: 04/16/2024 Time of Fall: noon PM Warehouse Team Leader: Jennifer Segura Fall was witnessed: Yes, by whom: Description of Fall: Where: Living room How: got up and fell backwards in living room hit electric w/c Injury: Yes Location: Right hip closed impacted fracture Side: Right Other Information Pertinent to Fall: CT head X2 no bleed Level of Injury: 3 = Major (permanent lessening of bodily function, fx, etc.) Symptoms Prior to Fall: none Assistive Device in Use at Time of Fall: other (Specific) not clear if he tried to use rollator Contributing Factors at time of fall: gait or imbalance, other (specific) parkinson's disease Environmental Factors: none Contributing diagnosis to current fall: neurological (ALS, MS, Parkinson's) If fall occurred while HC/HBPC staff was providing direct patient care in the home, report on Joint Patient Safety Reporting Site (JPSR) found on [facility] Intranet home page. No, not applicable Is patient currently receiving PT/OT services: Yes Pt referred to PT/OT: No last PT home visit 2 weeks ago Patient Declines NO Interventions: PCP Notified Program Follow-up: Interdisciplinary Team reviews recent falls and modifies Patient's care plan as appropriate. Paste Up Artist Apprentice (or designee) tracks all falls, observes trends, and modifies Falls Prevention Plan as needed. Fall data is reported to [facility] Patient Signing Teacher on a quarterly basis. /sharron/ LUIS FERNANDO HICKEY-C [facility] NURSE PRACTITIONER Signed: 04/17/2024 09:25 Receipt Acknowledged By: 04/19/2024 06:44 /es/ AMANDO OHARA TECH WRITER [facility] 04/17/2024 09:45 /es/ KALYAN BARBER [facility] WHOLESALE PARTS SALESPERSON 04/17/2024 09:37 /es/ RAMIN MENDIETA, PT, MS, ATP [facility] Physical Therapist 04/17/2024 10:25 /es/ JENNIFER SEGURA RUG CLEANER HELPER [facility] CHIEF ENGINEER DRILLING AND RECOVERY 04/17/2024 09:47 /es/ RIGO FENTON, MS, RDN, LDN Staff Dietitian 04/17/2024 15:45 /es/ Suyapa Tirado [facility] Side Seam Envelope Machine Operator 04/17/2024 ADDENDUM STATUS: COMPLETED alerting rehab staff for tracking /sharron/ KALYAN BARBER [facility] WHOLESALE PARTS SALESPERSON Signed: 04/17/2024 09:46 Receipt Acknowledged By: 04/18/2024 14:34 /es/ DANIELLE FLORES OTR/L [facility] OCCUPATIONAL THERAPIST 04/17/2024 14:22 /es/ SPRING NEVES, PT [facility] PHYSICAL THERAPIST LUIS FERNANDO FONTANEZ [place] [facility]
--- OUTSIDE RECORDS SUMMARY | 2024-05-30 08:55 | XMS_ITS | Encounter Summary ---
Author Name [place] Address [address] [place] [address] Care Team Providers Care Business Process Coordinator Name Role Phone LUIS FERNANDO FONTANEZ Primary [...] SIMS ION [id number] 1 Jun 20, 2017 [id number] EAMON OLIVIA ERT PATIENT MEDICARE (WNR) MEDICARE (M) PART A Jun 20, 2014 PART A [id number] EAMON OLIVIA ERT PATIENT MEDICARE (WNR) MEDICARE (M) PART B Jun 20, 2014 PART B [id number] EAMON OLIVIA ERT PATIENT MEDICARE (WNR) MEDICARE (M) PART A Jun 20, 2014 PART A [id number] EAMON OLIVIA ERT PATIENT MEDICARE (WNR) MEDICARE (M) PART B Jun 20, 2014 PART B [id number] EAMON OLIVIA ERT PATIENT OPTUM RX PRESCRIPT ION RX Jun 20, 2023 THPRX [id number] EAMON OLIVIA ERT PATIENT OPTUM RX PRESCRIPT ION RX Jun 20, 2022 THPRX [id number] EAMON OLIVIA ERT PATIENT OPTUM RX PRESCRIPT ION RX Jun 20, 2022 THPRX [id number] [phone] DAVON OLIVIA JR PATIENT [facility] MAR Jun 20, 2017 [id number] EAMON OLIVIA ERT PATIENT [facility] TON PEÑA E Jun 20, 2017 [id number] DAVON OLIVIA JR PATIENT [facility] PEÑA E Jun 20, 2017 [id number] [phone] DAVON OLIVIA JR PATIENT [facility] Jun 20, [address] [facility] [address] [id number] EAMON OLIVIA ERT PATIENT [facility] Jun 20, 2023 [id number] [phone] EAMON OLIVIA ERT PATIENT Selected Encounter This section includes the information on record at [place] for the Encounter. Date/Time Encounter Type Encounter Description Reason Provider Source Apr 23, 2024 03:15 PM HC PRO PHONE CALL 5-10 MIN TELEPHONE [facility] ICD-10-CM Z71.89 Other specified counseling KAMILAH MALCOLM E Encounter Template Text not used by [place] Assessments - Encounter Diagnoses This section includes the primary and secondary diagnoses documented for the Encounter. Date/Time Primary/Secondary Diagnosis Diagnosis Name Provider Source Apr 23, 2024 03:15 PM PRIMARY Other specified counseling KAMILAH MALCOLM [place] [facility] [place] [place] [facility] Plan of Treatment: Future Appointments (+ [...] 26, 2024 09:00 AM AMBULATORY - [facility] Apr 26, 2024 11:00 AM AMBULATORY - [facility] Active, Pending, and Scheduled Orders This section includes a listing of several types of active, pending, and scheduled orders, including clinic medications orders, diagnostic test orders, procedure orders and consult orders; where the start date of the order is 45 days before the date of the Encounter or 45 days after the date of theEncounter. The data comes from all [facility] facilities. Test Date/Time Test Type Test Details Facility Name Apr 05, 2024 12:00 AM Laboratory - Chemi stry Order CBC AND DIFF (AUTO) BLOOD (LAV-BLOOD) [facility] Apr 05, 2024 12:00 AM Laboratory - Chemi stry Order IRON & TIBC PANEL BLOOD (SST-SERUM) [facility] Apr 05, 2024 12:00 AM Laboratory - Chemi stry Order FERRITIN BLOOD (SST-SERUM) [facility] Apr 05, 2024 12:00 AM Laboratory - Chemi stry Order BASIC METABOLIC PANEL (non-fasting) BLOOD (SST-SERUM) [facility] Apr 05, 2024 12:00 AM Laboratory - Chemi stry Order OCCULT BLOOD FIT X1 SCREEN(IN-HOUSE) STOOL FECES [facility] Apr 05, 2024 09:28 AM Consult Order COMMUNITY CARE-NEUROLOGY Cons Insurance Agent's Choice [facility] May 01, 2024 12:00 AM Laboratory - Chemi stry Order CBC AND DIFF (AUTO) BLOOD (LAV-BLOOD) [facility] May 01, 2024 12:00 AM Laboratory - Chemi stry Order IRON & TIBC PANEL BLOOD (SST-SERUM) [facility] May 01, 2024 12:00 AM Laboratory - Chemi nav Order FERRITIN BLOOD (SST-SERUM) SP [facility] Lab Results: +/- 30 days of the [...] Range Comment Mar 28, 2024 12:30 PM [facility] LIVER FUNCTION Specimen Type: SERUM No comment entered. Ordering Provider: LUIS FERNANDO FONTANEZ Report Released Date/Time: Dec 28, 2023 07:18 AM Reporting Lab: [address] [address] Performing Lab: [address] [address] PROTEIN,TOTAL 6.0 g/dL 6.0-8.3 ALBUMIN 3.2 g/dL L 3.5-5.0 ALKALINE PHOSPHATASE 72 U/L 40-150 AST 21 U/L 5-34 ALT <6 U/L BILIRUBIN, TOTAL 0.4 mg/dL 0.2-1.2 Mar 28, 2024 12:30 PM [facility] BASIC METABOLIC PANEL (non-fasting) Specimen Type: SERUM No comment entered. Ordering Provider: LUIS FERNANDO FONTANEZ Report Released Date/Time: Dec 28, 2023 07:18 AM Reporting Lab: [address] [address] Performing Lab: [address] [address] UREA NITROGEN 21 mg/dL 7-25 GLUCOSE 98 mg/dL 65-100 SODIUM 139 mmol/L 135-145 POTASSIUM 3.4 mmol/L L 3.5-5.0 CHLORIDE 102 mmol/L 100-110 CO2 27 meq/L 20-30 CREATININE, Serum 0.88 mg/dL 0.50-1.40 eGFR(CKD-EPI 2020) 90 mL/min >60 Mar 28, 2024 12:30 PM [facility] CBC AND DIFF (AUTO) Specimen Type: BLOOD No comment entered. Ordering Provider: LUIS FERNANDO FONTANEZ Report Released Date/Time: Dec 28, 2023 07:18 AM Reporting Lab: [facility] [address] [facility] [address] Performing Lab: [facility] [address] [facility] [address] WBC 9.03 10*3/uL 4.50-11.00 RBC 4.16 10*6/uL [...] 19, 2023 12:24 PM VA-TOBACCO NEVER USED [facility] Tobacco Use History This section includes a history of the smoking, or tobacco-related health factors, that were collected on or before the date of the Encounter. The data comes from the [place] facility where the Encounter took place. Date/Time Smoking Status/Tobacco Use Comment F acility Jan 15, 2021 11:00 AM VA-TOBACCO NEVER USED [facility] Advance Directives: All historical and current Section [...] Jan 20, 2021 ADVANCE DIRECTIVE [facility] ARAUZ [facility] Encounter Notes: All associated encounter notes This section contains the clinical notes associated to the Encounter. Date/Time Encounter Note(s) Provider Source Apr 23, 2024 03:15 PM [facility] NOTE: LOCAL TITLE: HB TELEPHONE NOTE STANDARD TITLE: HB NOTE DATE OF NOTE: APR 23, 2024@15:15 ENTRY DATE: APR 24, 2024@13:10 AUTHOR: KAMILAH MALCOLM EXP COSIGNER: URGENCY: STATUS: COMPLETED Duration of call: 10 Minutes The was identified by name and . [facility] SW spoke with the 's caregiver and discussed recent fall that lead to current hospitalization. [facility] SW provided caregiver support over the telephone in regards to the situation. Caregiver reported that she spends most the days at the hospital with the . [facility] SW provided education in regards to importance of selfcare. HB CARROL offered in person Caregiver support visit and caregiver denied the need for this. She stated that overall she is doing okay and will contact [facility] SW if there is additional need for support. No other SW need at this time. /sharron/ OLEG Sandhu DARSHAN [employer] Crop Farm Worker Signed: 04/24/2024 13:13 KAMILAH MALCOLM [place] CNTRL TRN [facility]
--- OUTSIDE RECORDS SUMMARY | 2024-05-30 08:55 | XMS_ITS ---
Author Name [facility] [place] Organization [facility] [place] Address [address] [place] [id number] Care Team Providers Care Tools Developer Name Role Phone LUIS FERNANDO GARCIA Primary [...] ALT ION [id number] 1 Jun 20, 2017 [id number] [phone] EAMON OLIVIA ERT PATIENT MEDICARE (WNR) MEDICARE (M) PART A Jun 20, 2014 PART A [id number] [phone] EAMON OLIVIA ERT PATIENT MEDICARE (WNR) MEDICARE (M) PART B Jun 20, 2014 PART B [id number] EAMON OLIVIA ERT PATIENT MEDICARE (WNR) MEDICARE (M) PART A Jun 20, 2014 PART A [id number] [phone] EAMON OLIVIA ERT PATIENT MEDICARE (WNR) MEDICARE (M) PART B Jun 20, 2014 PART B [id number] EAMON OLIVIA ERT PATIENT OPTUM RX PRESCRIPT ION RX Jun 20, 2023 THPRX [id number] EAMON OLIVIA ERT PATIENT OPTUM RX PRESCRIPT ION RX Jun 20, 2022 THPRX [id number] EAMON OLIVIA ERT PATIENT OPTUM RX PRESCRIPT ION RX Jun 20, 2022 THPRX [id number] [phone] DAVON OLIVIA JR PATIENT [facility] Jun 20, 2017 [id number] EAMON OLIVIA ERT PATIENT [facility] TON PEÑA E Jun 20, 2017 [id number] DAVON OLIVIA JR PATIENT [facility] T[facility] PE[facility] E Jun 20, 2017 [id number] DAVON OLIVIA JR PATIENT [facility] USP Jun 20, 2017 USP [id number] EAMON OLIVIA ERT [facility]IENT [facility] Jun 20, 2023 [id number] EAMON OLIVIA ERT PATIENT Selected Encounter This section includes the information on record at [place] for the Encounter. Date/Time Encounter Type Encounter Description Reason Pro vider Source Mar 29, 2024 10:36 AM Outpatient Encounter [facility] PHYSIC EXTND(INTERNATIONAL MARKETING EXECUTIVE,POPULATION HEALTH MANAGER,PA) IHE Encounter Template Text not used by [facility] Plan of Treatment: Future Appointments (+ 6 months) and Future Tests (+/- 45 days) The Plan of Treatment section includes future care activities for the patient from all [place] treatmentfacilities. This section includes future appointments and future orders which are active, pending or scheduled. Future Appointments This section includes appointments that were scheduled to occur 6 months from the date of the Encounter, up to a maximum of 20 appointments. The data comes from all [place] treatment facilities. Appointment Date/Time Appointment Type Appointme nt Facility Name Apr 12, 2024 11:00 AM AMBULATORY - REHAB MEDICIN E [facility] Apr 26, 2024 09:00 AM AMBULATORY - MEDICINE [facility] Apr 26, 2024 11:00 AM AMBULATORY - REHAB MEDICIN E [facility] Active, Pending, and Scheduled Orders This section includes a listing of several types of active, pending, and scheduled orders, including clinic medications orders, diagnostic test orders, procedure orders and consult orders; where the start date of the order is 45 days before the date of the Encounter or 45 days after the date of theEncounter. The data comes from all [place] treatment facilities. Test Date/Time Test Type Test Details Facility Name Feb 29, 2024 07:27 AM Consult [facility] NON-SKILLED HOME HEALTH AIDE Cons Technician Support Association's Choice [facility] Feb 29, 2024 01:44 PM Consult Order [facility] Cons Technician Support Association's Choice [facility] Apr 05, 2024 12:00 AM Laboratory - Chemi stry Order CBC AND DIFF (AUTO) BLOOD (LAV-BLOOD) [facility] Apr 05, 2024 12:00 AM Laboratory - Chemi stry Order IRON & TIBC PANEL BLOOD (SST-SERUM) [facility] Apr 05, 2024 12:00 AM Laboratory - Chemi stry Order FERRITIN BLOOD (SST-SERUM) [facility] Apr 05, 2024 12:00 AM Laboratory - Chemi stry Order BASIC METABOLIC PANEL (non-fasting) BLOOD (SST-SERUM) [facility] Apr 05, 2024 12:00 AM Laboratory - Chemi stry Order OCCULT BLOOD FIT X1 SCREEN(IN-HOUSE) STOOL FECES SP [facility] Apr 05, 2024 09:28 AM Consult Order [facility]NEUROLOG[facility] Cons Technician Support Association's Choice [facility] May 01, 2024 12:00 AM Laboratory - Chemi stry Order CBC AND DIFF (AUTO) BLOOD (LAV-BLOOD) SP [facility] May 01, 2024 12:00 AM Laboratory - Chemi stry Order IRON & TIBC PANEL BLOOD (SST-SERUM) SP [facility] May 01, 2024 12:00 AM Laboratory - Chemi stry Order FERRITIN BLOOD (SST-SERUM) SP [facility] Lab Results: +/- 30 days of the encounter This section includes the Chemistry and Hematology Lab Results on record with [place] for the patient. Radiology Reports and Pathology Reports are provided separately, in subsequent sections. Lab Results This section contains the Chemistry/Hematology Results that were resulted 30 days before or 30 daysafter the date of the Encounter. Date/Time Source Result Type Result - Unit Interpretation Reference Range Comment Mar 28, 2024 12:30 PM [facility] LIVER FUNCTION Specimen Type: SERUM No comment entered. Ordering Provider: LUIS FERNANDO GARCIA Report Released Date/Time: Dec 28, 2023 07:18 AM Reporting Lab: [address] [address] Performing Lab: [address] [address] PROTEIN,TOTAL 6.0 g/dL 6.0-8.3 ALBUMIN 3.2 g/dL L 3.5-5.0 ALKALINE PHOSPHATASE 72 U/L 40-150 AST 21 U/L 5-34 ALT <6 U/L BILIRUBIN, TOTAL 0.4 mg/dL 0.2-1.2 Mar 28, 2024 12:30 PM [facility] BASIC METABOLIC PANEL (non-fasting) Specimen Type: SERUM No comment entered. Ordering Provider: LUIS FERNANDO GARCIA Report Released Date/Time: Dec 28, 2023 07:18 AM Reporting Lab: [address] [address] Performing Lab: [address] [address] UREA NITROGEN 21 mg/dL 7-25 GLUCOSE 98 mg/dL 65-100 SODIUM 139 mmol/L 135-145 POTASSIUM 3.4 mmol/L L 3.5-5.0 CHLORIDE 102 mmol/L 100-110 CO2 27 meq/L 20-30 CREATININE, Serum 0.88 mg/dL 0.50-1.40 eGFR(CKD-EPI 2020) 90 mL/min >60 Mar 28, 2024 12:30 PM [facility] CBC AND DIFF (AUTO) Specimen Type: BLOOD No comment entered. Ordering Provider: LUIS FERNANDO GARCIA Report Released Date/Time: Dec 28, 2023 07:18 AM Reporting Lab: [facility] [address] [facility] [address] Performing Lab: [facility] [address] [facility] [address] WBC 9.03 10*3/uL 4.50-11.00 RBC 4.16 10*6/uL [...] and tobacco- related health factors from the [place] facility where the Encounter took place. Current Smoking Status This section includes the most current smoking, or tobacco-related health factor, from the [place] facility where the Encounter took place. Date/Time Current Smoking Status Comment Raghu ity Jan 19, 2023 12:24 PM VA-TOBACCO NEVER USED [facility] Tobacco Use History This section includes a history of the smoking, or tobacco-related health factors, that were collected on or before the date of the Encounter. The data comes from the [place] facility where the Encounter took place. Date/Time Smoking Status/Tobacco Use Comment F acility Jan 15, 2021 11:00 AM VA-TOBACCO NEVER USED [facility] Advance Directives: All historical and current Section Date Range: From patient's date of to the date document was created. This section includes ALL of a patient's completed or amended [place] Advance and Rescinded Directives. The entries below indicate that a directive exists for the patient, but an actual copy is not included with this document. The data comes from all [place] facilities. Date Advance Directives Provider Source Jan 20, 2021 ADVANCE DIRECTIVE BENTON ARAUZ [facility] Encounter Notes: All associated encounter notes This section contains the clinical notes associated to the Encounter. Date/Time Encounter Note(s) Provider Source Apr 05, 2024 10:23 AM ADDENDUM: LOCAL TITLE: Addendum STANDARD TITLE: ADDENDUM DATE OF NOTE: APR 05, 2024@10:23:50 ENTRY DATE: APR 05, 2024@10:23:52 AUTHOR: LUIS FERNANDO GARCIA EXP COSIGNER: URGENCY: STATUS: COMPLETED CBC low please redraw with iron panel as well as BMP for low K also please encourage FIT test orders in /sharron/ LUIS FERNANDO GARCIA GAS MASK ASSEMBLER-C [facility] NURSE PRACTITIONER Signed: 04/05/2024 10:24 Receipt Acknowledged By: 04/05/2024 20:08 /sharron/ JENNIFER SEGURA RN BSN [facility] AQUATIC DIRECTOR --- Original Document --- 03/29/24 PATIENT LETTER (B): [facility] [address] [facility] [address] [phone] DAVON OLIVIA [address], [place] [address] Date:MAR 29, 2024 Dear DAVON OLIVIA, Complete blood count is a bit lower than last labs we will repeat this lab in a few weeks with an iron panel, your potssium is slightly low we will repeat this as well. LAB CHEMISTRY & HEMATOLOGY Collection DT Specimen Test Name Result Units Ref Range 03/28/2024 12:30 BLOOD WBC 9.03 K/cmm 4.50 - 11.00 RBC 4.16 L M/cmm 4.23 - 5.66 HGB 12.1 L g/dL 12.8 - 17 HCT 37.7 L % 39.2 - 50.4 MCV 90.6 fl 82 - 99 MCH 29.1 pg 26.2 - 32.6 MCHC 32.1 g/dL 30.8 - 35.1 RDW-CV 13.3 % 12.0 - 16.0 PLT 279 K/cmm 140 - 360 NEUT % 63.2 % 43.7 - 75.8 LYMPH % 26.9 % 14.0 - 42.3 MONO % 7.4 % 5.1 - 13.7 EOS % 1.7 % 0.4 - 6.8 BASO % 0.4 % 0.1 - 2.0 IMMATURE GRAN % 0.4 % 0.0 - 0.7 NRBC % 0.0 % 0.0 - 0.0 NEUT, ABS 5.70 K/cmm 2.20 - 7.60 LYMPH, ABS 2.43 K/cmm 1.00 - 3.20 MONO, ABS 0.67 K/cmm 0.30 - 1.10 EOS, ABS 0.15 K/cmm 0.03 - 0.44 BASO, ABS 0.04 K/cmm 0.01 - 0.13 IMMATURE GRAN, AB 0.04 K/cmm 0.00 - 0.06 NRBC, ABS 0.00 K/cmm 0.00 - 0.00 03/28/2024 12:30 SERUM CREATININE, Serum 0.88 mg/dL 0.50 - 1.40 eGFR(CKD-EPI 2020 90 mL/min Ref: >=60 UREA NITROGEN 21 mg/dL 7 - 25 SODIUM 139 mmol/L 135 - 145 POTASSIUM 3.4 L mmol/L 3.5 - 5.0 CHLORIDE 102 mmol/L 100 - 110 CO2 27 mEq/L 20 - 30 GLUCOSE 98 mg/dL 65 - 100 PROTEIN,TOTAL 6.0 g/dL 6.0 - 8.3 ALBUMIN 3.2 L g/dL 3.5 - 5.0 ALK DAGMAR 72 U/L 40 - 150 AST 21 U/L 5 - 34 BILIRUBIN, TOTAL 0.4 mg/dL 0.2 - 1.2 ALT <6 U/L <6 - 55 Please call [phone] if you have any questions or concerns. Sincerely, Luis Fernando Garcia Nurse Practitioner Home Based Primary care [facility] Upcoming Appointments: 03/29/2024 11:00 CWM/WPS/VVC/SPEECH 05/10/2024 10:00 CWM/NO/VVC/RESP/SLEEP A APPOINTMENT ABBREVIATION CASSIDY == (SPOPC OR SO = [facility] [address] [facility]) (GOPC OR GO = [address]) (NHM or NO = [facility]) (VVC - Video Call) (Tel-X Telephone Visit) ( - Telehealth) LUIS FERNANDO GARCIA [facility] Mar 29, 2024 10:37 AM LETTERS: LOCAL TITLE: PATIENT LETTER (B) STANDARD TITLE: LETTERS DATE OF NOTE: MAR 29, 2024@10:37 ENTRY DATE: MAR 29, 2024@10:37:31 AUTHOR: LUIS FERNANDO GARCIA COSIGNER: URGENCY: STATUS: COMPLETED PATIENT LETTER (B) Has ADDENDA [facility] [address] [facility] [address] [phone] DAVON OLIVIA [address], [place] [address] Date:MAR 29, 2024 Dear DAVON OLIVIA, Complete blood count is a bit lower than last labs we will repeat this lab in a few weeks with an iron panel, your potssium is slightly low we will repeat this as well. LAB CHEMISTRY & HEMATOLOGY Collection DT Specimen Test Name Result Units Ref Range 03/28/2024 12:30 BLOOD WBC 9.03 K/cmm 4.50 - 11.00 RBC 4.16 L M/cmm 4.23 - 5.66 HGB 12.1 L g/dL 12.8 - 17 HCT 37.7 L % 39.2 - 50.4 MCV 90.6 fl 82 - 99 MCH 29.1 pg 26.2 - 32.6 MCHC 32.1 g/dL 30.8 - 35.1 RDW-CV 13.3 % 12.0 - 16.0 PLT 279 K/cmm 140 - 360 NEUT % 63.2 % 43.7 - 75.8 LYMPH % 26.9 % 14.0 - 42.3 MONO % 7.4 % 5.1 - 13.7 EOS % 1.7 % 0.4 - 6.8 BASO % 0.4 % 0.1 - 2.0 IMMATURE GRAN % 0.4 % 0.0 - 0.7 NRBC % 0.0 % 0.0 - 0.0 NEUT, ABS 5.70 K/cmm 2.20 - 7.60 LYMPH, ABS 2.43 K/cmm 1.00 - 3.20 MONO, ABS 0.67 K/cmm 0.30 - 1.10 EOS, ABS 0.15 K/cmm 0.03 - 0.44 BASO, ABS 0.04 K/cmm 0.01 - 0.13 IMMATURE GRAN, AB 0.04 K/cmm 0.00 - 0.06 NRBC, ABS 0.00 K/cmm 0.00 - 0.00 03/28/2024 12:30 SERUM CREATININE, Serum 0.88 mg/dL 0.50 - 1.40 eGFR(CKD-EPI 2020 90 mL/min Ref: >=60 UREA NITROGEN 21 mg/dL 7 - 25 SODIUM 139 mmol/L 135 - 145 POTASSIUM 3.4 L mmol/L 3.5 - 5.0 CHLORIDE 102 mmol/L 100 - 110 CO2 27 mEq/L 20 - 30 GLUCOSE 98 mg/dL 65 - 100 PROTEIN,TOTAL 6.0 g/dL 6.0 - 8.3 ALBUMIN 3.2 L g/dL 3.5 - 5.0 ALK DAGMAR 72 U/L 40 - 150 AST 21 U/L 5 - 34 BILIRUBIN, TOTAL 0.4 mg/dL 0.2 - 1.2 ALT <6 U/L <6 - 55 Please call [phone] if you have any questions or concerns. Sincerely, Luis Fernando Garcia Nurse Practitioner Home Based Primary care [facility] Upcoming Appointments: 03/29/2024 11:00 CWM/WPS/VVC/SPEECH 05/10/2024 10:00 CWM/NO/VVC/RESP/SLEEP A APPOINTMENT ABBREVIATION CASSIDY == (SPOPC OR SO = [facility] [address] [facility]) (GOPC OR GO = [address]) (NHM or NO = [facility]) (VVC - Video Call) (Tel-X Telephone Visit) (TH - Telehealth) 04/05/2024 ADDENDUM STATUS: COMPLETED CBC low please redraw with iron panel as well as BMP for low K also please encourage FIT test orders in /sharron/ LUIS FERNANDO GARCIA GAS MASK ASSEMBLER-C [facility] NURSE PRACTITIONER Signed: 04/05/2024 10:24 Receipt Acknowledged By: 04/05/2024 20:08 /sharron/ JENNIFER SEGURA, CAN TESTER [facility] AQUATIC DIRECTOR LUIS FERNANDO GARCIA [facility]
--- OUTSIDE RECORDS SUMMARY | 2024-05-30 08:56 | XMS_ITS ---
Author Name [facility] Organization [facility] Address [address] [place] [id number] Care Team Providers Care Concrete Laborer Name Role Phone HUSEYIN LUIS FERNANDO Primary [...] SIMS ION [id number] 1 Jun 20, 2017 [id number] [phone] EAMON OLIVIA ERT PATIENT MEDICARE (WNR) MEDICARE (M) PART A Jun 20, 2014 PART A [id number] [phone] EAMON OLIVIA ERT PATIENT MEDICARE (WNR) MEDICARE (M) PART B Jun 20, 2014 PART B [id number] EAMON OLIVIA ERT PATIENT MEDICARE (WNR) MEDICARE (M) PART A Jun 20, 2014 PART A [id number] [phone] EAMON OLIVIA ERT PATIENT MEDICARE (WNR) MEDICARE (M) PART B Jun 20, 2014 PART B [id number] EAMON OLIVIA ERT PATIENT OPTUM RX PRESCRIPT ION RX Jun 20, 2023 THPRX [id number] [phone] EAMON OLIVIA ERT PATIENT OPTUM RX PRESCRIPT ION RX Jun 20, 2022 THPRX [id number] EAMON OLIVIA ERT PATIENT OPTUM RX PRESCRIPT ION RX Jun 20, 2022 THPRX [id number] [phone] DAVON OLIVIA JR PATIENT [facility] MAR Jun 20, 2017 [id number] EAMON OLIVIA ERT PATIENT [facility] PEÑA E Jun 20, 2017 [id number] DAVON OLIVIA JR PATIENT [facility] TON PEÑA E Jun 20, 2017 [id number] [phone] DAVON OLIVIA JR PATIENT [facility] USP Jun 20, 2017 USP [id number] [phone] EAMON OLIVIA ERT [facility] Jun 20, 2023 [id number] [phone] EAMON OLIVIA ERT PATIENT Selected Encounter This section includes the information on record at [place] for the Encounter. Date/Time Encounter Type Encounter Description Reason Pro vider Source May 16, 2024 01:00 PM Outpatient Encounter [facility] - DIETITIAN IHE Encounter Template Text not used by [...] of theEncounter. The data comes from all [place] treatment facilities. Test Date/Time Test Type Test Details Facility Name Apr 05, 2024 12:00 AM Laboratory - Chemi stry Order CBC AND DIFF (AUTO) BLOOD (LAV-BLOOD) [facility] Apr 05, 2024 12:00 AM Laboratory - Chemi stry Order IRON & TIBC PANEL BLOOD (SST-SERUM) [facility] Apr 05, 2024 12:00 AM Laboratory - Chemi stry Order FERRITIN BLOOD (SST-SERUM) [facility] Apr 05, 2024 12:00 AM Laboratory - Chemi stry Order BASIC METABOLIC PANEL (non-fasting) BLOOD (SST-SERUM) [facility] Apr 05, 2024 12:00 AM Laboratory - Chemi stry Order OCCULT BLOOD FIT X1 SCREEN(IN-HOUSE) STOOL FECES [facility] Apr 05, 2024 09:28 AM Consult Order [facility]ITY [facility]-NEUROLOGY Cons Javascript Front End Developer's Choice [facility] May 01, 2024 12:00 AM Laboratory - Chemi stry Order CBC AND DIFF (AUTO) BLOOD (LAV-BLOOD) [facility] May 01, 2024 12:00 AM Laboratory - Chemi stry Order IRON & TIBC PANEL BLOOD (SST-SERUM) [facility] May 01, 2024 12:00 AM Laboratory - Chemi stry Order FERRITIN BLOOD (SST-SERUM) [facility] Social History: Smoking Status (Most current) [...] 19, 2023 12:24 PM VA-TOBACCO NEVER USED [facility] Tobacco Use History This section includes a history of the smoking, or tobacco-related health factors, that were collected on or before the date of the Encounter. The data comes from the [place] facility where the Encounter took place. Date/Time Smoking Status/Tobacco Use Comment Flex jc Jan 15, 2021 11:00 AM VA-TOBACCO NEVER USED [facility] Advance Directives: All historical and [...] ADVANCE DIRECTIVE BENTON ARAUZ ELZA Lora Chacko [facility] Encounter Notes: All associated encounter notes This section contains the clinical notes associated to the Encounter. Date/Time Encounter Note(s) Provider Source May 16, 2024 01:00 PM [facility] NOTE: LOCAL TITLE: [facility] TELEPHONE NOTE STANDARD TITLE: HB NOTE DATE OF NOTE: MAY 16, 2024@13:00 ENTRY DATE: MAY 16, 2024@13:54:38 AUTHOR: RIGO FENTON EXP COSIGNER: URGENCY: STATUS: COMPLETED Tube Feeding: [place] is being discharged from SNF on 05/21. G-tube was placed at the [facility]. [place] had legacy tube placed not enfit. Per [facility] [address], [place] is eat some pureed food by mouth at all 3 meals. This meets about 25-50% of his needs. Currently is still receiving Osmolite 1.2 overnight to meet the remainder of his needs. G-tube is new and will need tube feeding formula and equipment at home. TF order at [facility]: Osmolite 1.2 at 115mls/hr x10hrs nocturnal via g-tube to provide: 1380kcals(~ 74%),63gms pro(~78%),943mls water + addtnl 220mls q8hrs via g-vsio=9543muk(~ 86%) of daily water needs. -Recommend continuing order above upon d/c. Wt: 159.2# (05/05/24) TF [facility] cans through [facility]. Updated order: -infuse 5 cans at 115mL/hr overnight, flush 220mL water every 8hrs -Provides: 1422 kcals, 66g protein, 948mL water + addtnl 220mL q8hrs via g- tube= 1608mL Ordered errol valve d/t legacy tube. [facility]oke with [facility] . Discussed that SNF will provide 1 week of supplies and TF formula upon d/c to fill in the gap. Goals: 1. Will tolerate pureed diet without difficulty through next review. 2. Will have stable weight without significant change through next review. 3. Will maintain adequate hydration through next review. 4. Will meet 100% of nutrition and hydration needs with po intakes and enteral feedings through next review. 5. Will tolerate enteral feeds a/o with no N/V/D/C/R>250mls through next review. 6. Will display no signs of aspiration through next review. Plan: 1. Continue current goals 2. Will f/u 05/30 or sooner as needed Will continue to monitor /sharron/ RIGO FENTON, MS, RDN, LDN Staff Dietitian Signed: 05/16/2024 16:09 Receipt Acknowledged By: 05/20/2024 17:18 /es/ JENNIFER SEGURA HEAD GIRLS GOLF COACH [facility] MEDICAL SALES 05/18/2024 09:46 /es/ CANDICE JASMINE [facility] NURSE PRACTITIONER for [facility]IGO [facility]
--- OUTSIDE RECORDS SUMMARY | 2024-05-30 08:56 | XMS_ITS ---
Author Name [facility] [place] Organization [place] Address [address] [place] [address] Care Team Providers Care Chairman Emeritus Name Role Phone HUSEYIN LUIS FERNANDO Primary [...] PRESCRIPT ION [id number] 1 Jun 20, 2017 [id number] [phone] EAMON OLIVIA ERT PATIENT MEDICARE (WNR) MEDICARE (M) PART A Jun 20, 2014 PART A [id number] EAMON OLIVIA ERT PATIENT MEDICARE (WNR) MEDICARE (M) PART B Jun 20, 2014 PART B [id number] [phone] EAMON OLIVIA ERT PATIENT MEDICARE (WNR) MEDICARE (M) PART B Jun 20, 2014 PART B [id number] EAMON OLIVIA ERT PATIENT MEDICARE (WNR) MEDICARE (M) PART A Jun 20, 2014 PART A [id number] EAMON OLIVIA ERT PATIENT OPTUM RX PRESCRIPT ION RX Jun 20, 2023 THPRX [id number] [phone] EAMON OLIVIA ERT PATIENT OPTUM RX PRESCRIPT ION RX Jun 20, 2022 THPRX [id number] EAMON OLIVIA ERT PATIENT OPTUM RX PRESCRIPT ION RX Jun 20, 2022 THPRX [id number] [phone] DAVON OLIVIA JR PATIENT [facility] TON MAR Jun 20, 2017 [id number] [phone] EAMON OLIVIA ERT PATIENT [facility] Jun 20, 2017 [id number] [phone] DAVON OLIVIA JR PATIENT [facility] E Jun 20, 2017 [id number] DAVON OLIVIA JR PATIENT [facility] USP Jun 20, 2017 USP [id number] EAMON OLIVIA ERT PATIENT [facility] Jun 20, 2023 [id number] [phone] EAMON OLIVIA ERT PATIENT Selected Encounter This section includes the information on record at [place] for the Encounter. Date/Time Encounter Type Encounter Description Reason Pro vider Source May 07, 2024 04:37 PM Outpatient Encounter COMMUNITY CARE CONSULT IHE [...] of theEncounter. The data comes from all [place] treatment facilities. Test Date/Time Test Type Test Details Facility Name Apr 05, 2024 12:00 AM Laboratory - Chemi stry Order CBC AND DIFF (AUTO) BLOOD (LAV-BLOOD) [facility] Apr 05, 2024 12:00 AM Laboratory - Chemi stry Order IRON & TIBC PANEL BLOOD (SST-SERUM) [facility] Apr 05, 2024 12:00 AM Laboratory - Chemi stry Order FERRITIN BLOOD (SST-SERUM) [facility] Apr 05, 2024 12:00 AM Laboratory - Chemi stry Order OCCULT BLOOD FIT X1 SCREEN(IN-HOUSE) STOOL FECES [facility] Apr 05, 2024 12:00 AM Laboratory - Chemi stry Order BASIC METABOLIC PANEL (non-fasting) BLOOD (SST-SERUM) [facility] Apr 05, 2024 09:28 AM Consult Order COMMUNITY CARE-NEUROLOGY Cons Stock Clerk's Choice [facility] May 01, 2024 12:00 AM Laboratory - Chemi stry Order CBC AND DIFF (AUTO) BLOOD (LAV-BLOOD) [facility] May 01, 2024 12:00 AM Laboratory - Chemi stry Order IRON & TIBC PANEL BLOOD (SST-SERUM) [facility] May 01, 2024 12:00 AM Laboratory - Chemi stry Order FERRITIN BLOOD (SST-SERUM) [facility] Social History: Smoking Status (Most [...] 19, 2023 12:24 PM VA-TOBACCO NEVER USED [facility] Tobacco Use History This section includes a history of the smoking, or tobacco-related health factors, that were collected on or before the date of the Encounter. The data comes from the [place] facility where the Encounter took place. Date/Time Smoking Status/Tobacco Use Comment F acility Jan 15, 2021 11:00 AM VA-TOBACCO NEVER USED [facility] Advance Directives: All historical and current [...] Jan 20, 2021 ADVANCE DIRECTIVE [facility] ARAUZ [facility] Encounter Notes: All associated encounter notes This section contains the clinical notes associated to the Encounter. Date/Time Encounter Note(s) Provider Source May 07, 2024 04:37 PM NONVA NOTE: LOCAL TITLE: [facility] CARE COORD PLAN STANDARD TITLE: NONVA NOTE DATE OF NOTE: MAY 07, 2024@16:37 ENTRY DATE: MAY 07, 2024@16:38:15 AUTHOR: AURORA SOL EXP COSIGNER: URGENCY: STATUS: COMPLETED Emergency Notification Intake Date Presenting to the Facility: Mar Method of Contact: Notified from ECR worklist Notification ID: [id number] [facility] Referral #: [id number] [facility] Name: Hospital: [facility] Address: City: [place] State: [place] Zip Code: Phone : [facility] Facility Point of Contact: Name: Yohan Phone: Chief complaint: R53.1 Primary Diagnosis: Disposition Discharged Date of discharge: Mar Discharge to Comment: ER Only /sharron/ AURORA SOLO Signed: 05/07/2024 16:40 Receipt Acknowledged By: * AWAITING SIGNATURE * KEMI AMBROCIO * AWAITING SIGNATURE * SARAH IRIZARRY * AWAITING SIGNATURE * CEE AVENDANO * AWAITING SIGNATURE * CADENCE CASTRO DAWN MARIE FREDONIA
--- OUTSIDE RECORDS SUMMARY | 2024-05-30 08:56 | XMS_ITS | Encounter Summary ---
Author Name [facility] [place] Organization [facility] Address [address] [place] [address] Care Team Providers Care Continuum Of Care Manager Name Role Phone HUSEYIN LUIS FERNANDO [...] ALNelly ION [id number] 1 Jun 20, 2017 [id number] [phone] EAMON OLIVIA ERT PATIENT MEDICARE (WNR) MEDICARE (M) PART A Jun 20, 2014 PART A [id number] [phone] EAMON OLIVIA ERT PATIENT MEDICARE (WNR) MEDICARE (M) PART B Jun 20, 2014 PART B [id number] EAMON OLIVIA ERT PATIENT MEDICARE (WNR) MEDICARE (M) PART A Jun 20, 2014 PART A [id number] [phone] EAMON OLIVIA ERT PATIENT MEDICARE (WNR) MEDICARE (M) PART B Jun 20, 2014 PART B [id number] EAMON OLIVIA ERT PATIENT OPTUM RX PRESCRIPT ION RX Jun 20, 2023 THPRX [id number] [phone] EAMON OLIVIA ERT PATIENT OPTUM RX PRESCRIPT ION RX Jun 20, 2022 THPRX [id number] [phone] EAMON OLIVIA ERT PATIENT OPTUM RX PRESCRIPT ION RX Jun 20, 2022 THPRX [id number] DAVON OLIVIA JR PATIENT [facility] Jun 20, 2017 [id number] [phone] EAMON OLIVIA ERT PATIENT [facility] Jun 20, 2017 [id number] DAVON OLIVIA JR PATIENT [facility] Jun 20, 2017 [id number] [phone] DAVON OLIVIA JR PATIENT [facility] Jun 20, 2017 USFHP [id number] EAMON OLIVIA ERT PATIENT [facility] Jun 20, 2023 [id number] EAMON OLIVIA ERT PATIENT Selected Encounter [...] Jan 20, 2021 ADVANCE DIRECTIVE [facility]
--- OUTSIDE RECORDS SUMMARY | 2024-05-30 08:56 | XMS_ITS | Encounter Summary ---
Author Name Department [place] Organization [facility] [place] Address [address] [place] [address] Care Team Providers Care Fund Accounting Manager Name Role Phone HUSEYIN LUIS FERNANDO [...] ALNelly ION [id number] 1 Jun 20, 2017 [id number] EAMON OLIVIA ERT PATIENT MEDICARE (WNR) MEDICARE (M) PART A Jun 20, 2014 PART A [id number] EAMON OLIVIA ERT PATIENT MEDICARE (WNR) MEDICARE (M) PART B Jun 20, 2014 PART B [id number] EAMON OLIVIA ERT PATIENT MEDICARE (WNR) MEDICARE (M) PART A Jun 20, 2014 PART A [id number] EAMON OLIVIA ERT PATIENT MEDICARE (WNR) MEDICARE (M) PART B Jun 20, 2014 PART B [id number] [phone] EAMON OLIVIA ERT PATIENT OPTUM RX PRESCRIPT ION RX Jun 20, 2023 THPRX [id number] [phone] EAMON OLIVIA ERT PATIENT OPTUM RX PRESCRIPT ION RX Jun 20, 2022 THPRX [id number] EAMON OLIVIA ERT PATIENT OPTUM RX PRESCRIPT ION RX Jun 20, 2022 THPRX [id number] DAVON OLIVIA JR PATIENT [facility] Jun 20, 2017 [id number] EAMON OLIVIA ERT PATIENT [facility] Jun 20, 2017 [id number] DAVON OLIVIA JR PATIENT [facility] Jun 20, 2017 [id number] [phone] DAVON OLIVIA JR PATIENT [facility] PLAN USFHP Jun 20, 2017 USFHP [id number] EAMON OLIVIA ERT PATIENT [facility] Jun 20, 2023 [id number] [phone] EAMON OLIVIA ERT PATIENT Selected Encounter [...] Jan 20, 2021 ADVANCE DIRECTIVE [facility] ARAUZ [facility] W[facility]N [facility]
--- OUTSIDE RECORDS SUMMARY | 2024-05-30 08:56 | XMS_ITS | Encounter Summary ---
Author Name Department [place] Organization [place] Address [address] [place] [address] Care Team Providers Care Fur Tinter Name Role Phone HUSEYIN LUIS FERNANDO Primary [...] PRESCRIPT ION [id number] 1 Jun 20, 2017 [id number] EAMON OLIVIA ERT PATIENT MEDICARE (WNR) MEDICARE (M) PART A Jun 20, 2014 PART A [id number] EAMON OLIVIA ERT PATIENT MEDICARE (WNR) MEDICARE (M) PART B Jun 20, 2014 PART B [id number] EAMON OLIVIA ERT PATIENT MEDICARE (WNR) MEDICARE (M) PART A Jun 20, 2014 PART A [id number] [id number] EAMON OLIVIA ERT PATIENT MEDICARE (WNR) MEDICARE (M) PART B Jun 20, 2014 PART B [id number] EAMON OLIVIA ERT PATIENT OPTUM RX PRESCRIPT ION RX Jun 20, 2023 THPRX [id number] EAMON OLIVIA ERT PATIENT OPTUM RX PRESCRIPT ION RX Jun 20, 2022 THPRX [id number] EAMON OLIVIA ERT PATIENT OPTUM RX PRESCRIPT ION RX Jun 20, 2022 THPRX [id number] [phone] DAVON OLIVIA JR PATIENT [facility] Jun 20, 2017 [id number] [phone] EAMON OLIVIA ERT PATIENT [facility] E Jun 20, 2017 [id number] [phone] DAVON OLIVIA JR PATIENT [facility] E Jun 20, 2017 [id number] [phone] DAVON OLIVIA JR PATIENT [facility] USP Jun 20, 2017 USP [id number] [phone] EAMON OLIVIA ERT PATIENT [facility] Jun 20, 2023 [id number] EAMON OLIVIA ERT PATIENT Selected Encounter This section includes the information on record at [place] for the Encounter. Date/Time Encounter Type Encounter Description Reason Pro vider Source May 07, 2024 05:25 PM Outpatient Encounter TELEPHONE [facility] Encounter Template Text not used by CT Plan of Treatment: Future Appointments (+ 6 [...] of theEncounter. The data comes from all [place] treatment facilities. Test Date/Time Test Type Test Details Facility Name Apr 05, 2024 12:00 AM Laboratory - Chemi stry Order CBC AND DIFF (AUTO) BLOOD (LAV-BLOOD) [facility] Apr 05, 2024 12:00 AM Laboratory - Chemi stry Order IRON & TIBC PANEL BLOOD (SST-SERUM) [facility] Apr 05, 2024 12:00 AM Laboratory - Chemi stry Order FERRITIN BLOOD (SST-SERUM) [facility] Apr 05, 2024 12:00 AM Laboratory - Chemi stry Order BASIC METABOLIC PANEL (non-fasting) BLOOD (SST-SERUM) [facility] Apr 05, 2024 12:00 AM Laboratory - Chemi stry Order OCCULT BLOOD FIT X1 SCREEN(IN-HOUSE) STOOL FECES [facility] Apr 05, 2024 09:28 AM Consult Order COMMUNITY CARE-NEUROLOGY Cons Supervisor Throwing Department's Choice [facility] May 01, 2024 12:00 AM Laboratory - Chemi stry Order CBC AND DIFF (AUTO) BLOOD (LAV-BLOOD) [facility] May 01, 2024 12:00 AM Laboratory - Chemi stry Order IRON & TIBC PANEL BLOOD (SST-SERUM) [facility] May 01, 2024 12:00 AM Laboratory - Chemi stry Order FERRITIN BLOOD (SST-SERUM) [facility] Social History: Smoking Status (Most current) [...] 19, 2023 12:24 PM VA-TOBACCO NEVER USED [facility] Tobacco Use History This section includes a history of the smoking, or tobacco-related health factors, that were collected on or before the date of the Encounter. The data comes from the [place] facility where the Encounter took place. Date/Time Smoking Status/Tobacco Use Comment F acility Jan 15, 2021 11:00 AM VA-TOBACCO NEVER USED [facility] Advance Directives: All historical and current [...] Provider Source Jan 20, 2021 ADVANCE DIRECTIVE AALIYAHLIYAHBENTON ELZA Chacko [facility] Encounter Notes: All associated encounter notes This section contains the clinical notes associated to the Encounter. Date/Time Encounter Note(s) Provider Source May 07, 2024 05:26 PM [facility] NOTE: LOCAL TITLE: [facility] TELEPHONE NOTE STANDARD TITLE: [facility] NOTE DATE OF NOTE: MAY 07, 2024@17:26 ENTRY DATE: MAY 07, 2024@17:26:08 AUTHOR: JENNIFER SEGURA EXP COSIGNER: URGENCY: STATUS: COMPLETED Duration of call: 8 minutes RNCM spoke to [place]'s spouse Tory who reports [place] is at [facility] for [facility]. No discharge plans as of today. /sharron/ ZACHARIAH SWIFTN [facility] BUNG DROPPER Signed: 05/07/2024 17:26 Receipt Acknowledged By: 05/08/2024 06:14 /es/ AMANDO CHAPUT FILLER SHREDDER GEKaterin/[facility] 05/08/2024 14:53 /es/ OLEG Sandhu HB Motor Vehicle Assembler 05/08/2024 07:30 /es/ LUIS FERNANDO CHIU HB NURSE PRACTITIONER 05/08/2024 09:22 /es/ ZACHARIAH REIDN [facility] bioinformatics scientist JENNIFER SEGURA [facility]
--- OUTSIDE RECORDS SUMMARY | 2024-05-30 08:56 | XMS_ITS | Encounter Summary ---
Author Name Department [place] Organization [facility] [place] Address [address] [place] [address] Care Team Providers Care School Bus Technician Name Role Phone HUSEYIN LUIS FERNANDO [...] PRESCRIPT ION [id number] 1 Jun 20, 2017 [id number] [phone] EAMON OLIVIA ERT PATIENT MEDICARE (WNR) MEDICARE (M) PART A Jun 20, 2014 PART A [id number] EAMON OLIVIA ERT PATIENT MEDICARE (WNR) MEDICARE (M) PART B Jun 20, 2014 PART B [id number] EAMON OLIVIA ERT PATIENT MEDICARE (WNR) MEDICARE (M) PART A Jun 20, 2014 PART A [id number] EAMON OLIVIA ERT PATIENT MEDICARE (WNR) MEDICARE (M) PART B Jun 20, 2014 PART B [id number] EAMON OLIVIA ERT PATIENT OPTUM RX PRESCRIPT ION RX Jun 20, 2023 THPRX [id number] EAMON OLIVIA ERT PATIENT OPTUM RX PRESCRIPT ION RX Jun 20, 2022 THPRX [id number] EAMON OLIVIA ERT PATIENT OPTUM RX PRESCRIPT ION RX Jun 20, 2022 THPRX [id number] [phone] DAVON OLIVIA JR PATIENT [facility] Jun 20, 2017 [id number] EAMON OLIVIA ERT PATIENT [facility] Jun 20, 2017 [id number] DAVON OLIVIA JR PATIENT [facility] TON [facility] E Jun 20, 2017 [id number] DAVON OLIVIA JR PATIENT [facility] USP Jun 20, 2017 USP [id number] EAMON OLIVIA ERT PATIENT [facility] Jun 20, 2023 [id number] EAMON OLIVIA ERT PATIENT Selected Encounter This section includes the information on record at [place] for the Encounter. Date/Time Encounter Type Encounter Description Reason Pro vider Source May 10, 2024 09:28 AM Outpatient Encounter SLEEP MEDICINE IHE Encounter Template Text not used by [...] of theEncounter. The data comes from all [place] treatment facilities. Test Date/Time Test Type Test Details Facility Name Apr 05, 2024 12:00 AM Laboratory - Chemi stry Order CBC AND DIFF (AUTO) BLOOD (LAV-BLOOD) [facility] Apr 05, 2024 12:00 AM Laboratory - Chemi stry Order IRON & TIBC PANEL BLOOD (SST-SERUM) [facility] Apr 05, 2024 12:00 AM Laboratory - Chemi stry Order FERRITIN BLOOD (SST-SERUM) [facility] Apr 05, 2024 12:00 AM Laboratory - Chemi stry Order BASIC METABOLIC PANEL (non-fasting) BLOOD (SST-SERUM) [facility] Apr 05, 2024 12:00 AM Laboratory - Chemi stry Order OCCULT BLOOD FIT X1 SCREEN(IN-HOUSE) STOOL FECES [facility] Apr 05, 2024 09:28 AM Consult Order [facility]UROLOG[facility] Cons Java Programmer's Choice [facility] May 01, 2024 12:00 AM Laboratory - Chemi stry Order CBC AND DIFF (AUTO) BLOOD (LAV-BLOOD) [facility] May 01, 2024 12:00 AM Laboratory - Chemi stry Order IRON & TIBC PANEL BLOOD (SST-SERUM) [facility] May 01, 2024 12:00 AM Laboratory - Chemi stry Order FERRITIN BLOOD (SST-SERUM) [facility] Social History: Smoking Status (Most current) [...] 19, 2023 12:24 PM VA-TOBACCO NEVER USED [facility] Tobacco Use History This section includes a history of the smoking, or tobacco-related health factors, that were collected on or before the date of the Encounter. The data comes from the [place] facility where the Encounter took place. Date/Time Smoking Status/Tobacco Use Comment F acility Jan 15, 2021 11:00 AM VA-TOBACCO NEVER USED [facility] Advance Directives: All historical and [...] Jan 20, 2021 ADVANCE DIRECTIVE [facility] Encounter Notes: All associated encounter notes This section contains the clinical notes associated to the Encounter. Date/Time Encounter Note(s) Provider Source May 10, 2024 09:28 AM ADMINISTRATIVE NOT E: LOCAL TITLE: ADMINISTRATIVE NOTE STANDARD TITLE: ADMINISTRATIVE NOTE DATE OF NOTE: MAY 10, 2024@09:28 ENTRY DATE: MAY 10, 2024@09:29:03 AUTHOR: HERO KIM EXP COSIGNER: URGENCY: STATUS: COMPLETED Veterans called to cx appointment 05/10/2024 at 10am as broke his hip - will cb to rs once he has recovered. RTC 04/05/2024 dispositioned as does not want to reschedule appointment. Dispositioned on 05/10/2024 cpap zana /sharron/ HERO KIM ADVANCED WALL TO WALL CARPET INSTALLER Signed: 05/10/2024 09:30 HERO KIM [facility]
--- OUTSIDE RECORDS SUMMARY | 2024-05-30 08:57 | XMS_ITS | Encounter Summary ---
Author Name Department [place] Organization [place] Address [address] [place] [address] Care Team Providers Care Card Reader Name Role Phone HUSEYIN LUIS FERNANDO Primary [...] PRESCRIPT ION [id number] 1 Jun 20, 2017 [id number] [phone] EAMON OLIVIA ERT PATIENT MEDICARE (WNR) MEDICARE (M) PART A Jun 20, 2014 PART A [id number] EAMON OLIVIA ERT PATIENT MEDICARE (WNR) MEDICARE (M) PART B Jun 20, 2014 PART B [id number] EAMON OLIVIA ERT PATIENT MEDICARE (WNR) MEDICARE (M) PART A Jun 20, 2014 PART A [id number] EAMON OLIVIA ERT PATIENT MEDICARE (WNR) MEDICARE (M) PART B Jun 20, 2014 PART B [id number] EAMON OLIVIA ERT PATIENT OPTUM RX PRESCRIPT ION RX Jun 20, 2023 THPRX [id number] [phone] EAMON OLIVIA ERT PATIENT OPTUM RX PRESCRIPT ION RX Jun 20, 2022 THPRX [id number] EAMON OLIVIA ERT PATIENT OPTUM RX PRESCRIPT ION RX Jun 20, 2022 THPRX [id number] [id number] DAVON OLIVIA JR PATIENT [facility] Jun 20, 2017 [id number] EAMON OLIVIA ERT PATIENT [facility] E Jun 20, 2017 [id number] DAVON OLIVIA JR PATIENT [facility] E Jun 20, 2017 [id number] DAVON OLIVIA JR PATIENT [facility] Jun 20, 2017 USP [id number] EAMON OLIVIA ERT PATIENT [facility] Jun 20, 2023 [id number] EAMON OLIVIA ERT PATIENT Selected Encounter This section includes the information on record at [place] for the Encounter. Date/Time Encounter Type Encounter Description Reason Provider Source May 21, 2024 02:58 PM QNHP OL DIG ASSMT&MGMT 5-10 CLINICAL PHARMACY ICD-10-CM R13.19 Other dysphagia LORENZO PICHARDO [facility] Encounter Template Text not used by [place] Assessments - Encounter Diagnoses This section includes the primary and secondary diagnoses documented for the Encounter. Date/Time Primary/Secondary Diagnosis Diagnosis Name Provider Source May 21, 2024 03:00 PM PRIMARY Other dysphagia MAO PICHARDO [place] Plan of Treatment: Future Appointments (+ 6 [...] theEncounter. The data comes from all [facility] facilities. Test Date/Time Test Type Test Details Facility Name May 01, 2024 12:00 AM Laboratory - Chemi stry Order CBC AND DIFF (AUTO) BLOOD (LAV-BLOOD) [facility] May 01, 2024 12:00 AM Laboratory - Chemi stry Order IRON & TIBC PANEL BLOOD (SST-SERUM) [facility] May 01, 2024 12:00 AM Laboratory - Chemi stry Order FERRITIN BLOOD (SST-SERUM) [facility] Advance Directives: All historical and [...] from all [facility]. Date Advance Directives Provider Source Jan 20, 2021 ADVANCE DIRECTIVE [facility] ARAUZ [facility] [facility] Encounter Notes: All associated encounter notes This section contains the clinical notes associated to the Encounter. Date/Time Encounter Note(s) Provider Source May 21, 2024 02:58 PM MEDICATION MGT CON SULT: LOCAL TITLE: CONSULT REPORT/NON FORMULARY PADR STANDARD TITLE: MEDICATION MGT CONSULT DATE OF NOTE: MAY 21, 2024@14:58 ENTRY DATE: MAY 21, 2024@14:58:55 AUTHOR: MAO PICHARDO EXP COSIGNER: URGENCY: STATUS: COMPLETED The medical record has been reviewed with regard to this restricted drug request. Medication requested: VALVE,ARCHANA ENTERAL,ICU MEDICAL #[id number] Medication indication: Dysphagia Medical history relevant to this request: Per requesting provider's notes: Legacy port non compatable with enfit The request is approved - No formulary-preferred alternative /es/ MAO PICHARDO CLINICAL BOBBIN STRIPPER Signed: 05/21/2024 15:00 AMO PICHARDO [place]
--- OUTSIDE RECORDS SUMMARY | 2024-05-30 08:57 | XMS_ITS ---
Author Name [facility] [place] [facility] [place] [facility] [place] [facility] [place] Address [address] [place] [address] Care Team Providers Care Line Camera Operator Name Role Phone LUIS FERNANDO FONTANEZ [...] PRESCRIPT ION [id number] 1 Jun 20, 2017 [id number] EAMON OLIVIA ERT PATIENT MEDICARE (WNR) MEDICARE (M) PART A Jun 20, 2014 PART A [id number] EAMON OLIVIA ERT PATIENT MEDICARE (WNR) MEDICARE (M) PART B Jun 20, 2014 PART B [id number] [phone] EAMON OLIVIA ERT PATIENT MEDICARE (WNR) MEDICARE (M) PART A Jun 20, 2014 PART A [id number] EAMON OLIVIA ERT PATIENT MEDICARE (WNR) MEDICARE (M) PART B Jun 20, 2014 PART B [id number] [facility] EAMON OLIVIA ERT PATIENT OPTUM RX PRESCRIPT ION RX Jun 20, 2023 THPRX [id number] EAMON OLIVIA ERT PATIENT OPT[facility] RX PRESCRIPT ION RX Jun 20, 2022 THPRX [id number] [phone] EAMON OLIVIA ERT PATIENT [facility] RX PRESCRIPT ION RX Jun 20, 2022 THPRX [id number] [phone] DAVON OLIVIA JR PATIENT [facility] Jun 20, 2017 [id number] EAMON OLIVIA ERT PATIENT [facility] T[facility] PEÑA E Jun 20, 2017 [id number] DAVON OLIVIA JR PATIENT [facility] PLAN [facility] PE[facility] E Jun 20, 2017 [id number] [phone] DAVON OLIVIA JR PATIENT [facility] USP Jun 20, 2017 USP [id number] EAMON OLIVIA ERT PATIENT [facility] Jun 20, 2023 [id number] [phone] EAMON OLIVIA ERT PATIENT Selected Encounter This section includes the information on record at [place] for the Encounter. Date/Time Encounter Type Encounter Description Reason Provider Source May 22, 2024 03:00 PM [facility] OF PT,EA 15 MIN [facility] - THERAPIST ICD-10-CM G20.C Parkinsonism, unspecified RAIVEL,RAMIN IHE Encounter Template Text not used by [place] Assessments - Encounter Diagnoses This section includes the primary and secondary diagnoses documented for the Encounter. Date/Time Primary/Secondary Diagnosis Diagnosis Name Provider Source May 24, 2024 10:10 AM PRIMARY Parkinsonism, unspecified RAIVEL,RAMIN [place] [facility] [place] [facility] Plan of Treatment: Future Appointments (+ 6 months) and Future Tests (+/- 45 days) The Plan of Treatment section includes future care activities for the patient from all [place] treatmentfacilities. This section includes future appointments and [...] of theEncounter. The data comes from all [place] treatment facilities. Test Date/Time Test Type Test Details Facility Name May 01, 2024 12:00 AM Laboratory - Chemi stry Order CBC AND DIFF (AUTO) BLOOD (LAV-BLOOD) [facility] May 01, 2024 12:00 AM Laboratory - Chemi stry Order IRON & TIBC PANEL BLOOD (SST-SERUM) [facility] May 01, 2024 12:00 AM Laboratory - Chemi stry Order FERRITIN BLOOD (SST-SERUM) [facility] Social History: Smoking Status (Most [...] 19, 2023 12:24 PM [place]-TOBACCO NEVER USED [facility] Tobacco Use History This section includes a history of the smoking, or tobacco-related health factors, that were collected on or before the date of the Encounter. The data comes from the [place] facility where the Encounter took place. Date/Time Smoking Status/Tobacco Use Comment F acility Jan 15, 2021 11:00 AM [place]-TOBACCO NEVER USED [facility] Advance Directives: All historical and current Section [...] Jan 20, 2021 ADVANCE DIRECTIVE AALIYAHBENTON [facility] Encounter Notes: All associated encounter notes This section contains the clinical notes associated to the Encounter. Date/Time Encounter Note(s) Provider Source May 22, 2024 03:00 PM [facility] NOTE: LOCAL TITLE: [facility] PHYSICAL THERAPY NOTE STANDARD TITLE: [facility] NOTE DATE OF NOTE: MAY 22, 2024@15:00 ENTRY DATE: MAY 24, 2024@09:58:33 AUTHOR: RAMIN MENDIETA EXP COSIGNER: URGENCY: STATUS: COMPLETED [facility] Physical Therapy Note Date: 05/22/24 Time: 3:00 pm Diagnosis: parkinsonism, unspecified Treatment Diagnosis: As above, plus Active problems - Computerized Problem List is the source for the followin. Obstructive sleep apnea 2. Nephrolithiasis 3. Excessive salivation 4. HTN - Hypertension ([facility] [id number]) 5. Constipation 6. Under care of multiple [...] Gastroesophageal reflux disease 31. AF- Atrial Fibrillation ([facility] [id number]) 32. Parkinson's disease 33. Kidney Stone ([facility] [id number]) Patient identified by facial recognition and address SUBJECTIVE: no complaints OBJECTIVE: PAIN: Prior to treatment - none After treatment - none If > 3/10, intervention - If > 3/10, provider notified - VITAL SIGNS: weighed patient, wheelchair scale: 173.7 lbs FALLS: patient denies any recent falls TREATMENT: PT in the Home - [facility] Adult Parole Officer requested weight on patient and a Michael Lift Scale if possible. Attempted standing weight on a large standing scale upon request of Spouse - patient could not do this. Used wheelchair scale with transport wheelchair. Therapeutic Activities - stand pivot transfer to/from recliner to transport wheelchair with moderate assist of 2; sit to stand to sit transfer from recliner with moderate assist of 2. ASSESSMENT: Patient is a 73 year old with parkinsonism, unspecified with a recent fall and hospital/inpatient rehab admit who also currently has tube feeding. [facility] Nutitionist requests weekly weights while patient is in tube feeding until the end of May. [facility] PT inquired about ordering a Michael Lift scale, which is possible, but the fastest this could be delivered is about 2 weeks which leaves only 1 more weight to be taken through the end of May. [facility] PT will make weekly visits to weigh patient through the end of May instead. Follow up in about 1 week. WHOLE HEALTH WHOLE HEALTH EDUCATION Whole Health Education was provided. Patient was verbally educated on following Home Safety - safe transfer in/out of transport wheelchair Patient was verbally educated on following Durable Medical Equipment Safety - safe use of transport wheelchair Home Oxygen (yes/no) - no If yes, patient was verbally educated on following Oxygen Safety - COACHING SKILLS Coaching or Motivational Interviewing skills used. VISIT INFORMATION Met with individual: In-person Length of Visit: 25 minutes PLAN Individual agreed to follow-up: In-person visit Follow-up will occur: in about 1 week /sharron/ RAMIN MENDIETA PT, MS, ATP [facility] Physical Therapist Signed: 05/24/2024 10:10 RAMIN MENDIETA [facility] [place] [facility]
--- OUTSIDE RECORDS SUMMARY | 2024-05-30 08:57 | XMS_ITS | Encounter Summary ---
Author Name [facility] [facility] Address [address] [place] [address] Care Team Providers Care Personnel Training Officer Name Role Phone HUSEYIN LUIS FERNANDO Primary [...] ALNelly ION [id number] 1 Jun 20, 2017 [id number] [phone] EAMON OLIVIA ERT PATIENT MEDICARE (WNR) MEDICARE (M) PART A Jun 20, 2014 PART A [id number] EAMON OLIVIA ERT PATIENT MEDICARE (WNR) MEDICARE (M) PART B Jun 20, 2014 PART B [id number] [phone] EAMON OLIVIA ERT PATIENT MEDICARE (WNR) MEDICARE (M) PART A Jun 20, 2014 PART A [id number] EAMON OLIVIA ERT PATIENT MEDICARE (WNR) MEDICARE (M) PART B Jun 20, 2014 PART B [id number] EAMON OLIVIA ERT PATIENT OPTUM RX PRESCRIPT ION RX Jun 20, 2023 THPRX [id number] EAMON OLIVIA ERT PATIENT OPTUM RX PRESCRIPT ION RX Jun 20, 2022 THPRX [id number] EAMON OLIVIA ERT PATIENT OPT[facility] RX PRESCRIPT ION RX Jun 20, 2022 THPRX [id number] [phone] DAVON OLIVIA JR PATIENT [facility] Jun 20, 2017 [id number] [phone] EAMON OLIVIA ERT PATIENT [facility] E Jun 20, 2017 [id number] DAVON OLIVIA JR PATIENT [facility] Jun 20, 2017 [id number] DAVON OLIVIA JR PATIENT [facility] Jun 20, 2017 [id number] EAMON OLIVIA ERT PATIENT [facility] Jun 20, 2023 [id number] EAMON OLIVIA ERT PATIENT Selected Encounter [...] 20, 2021 ADVANCE DIRECTIVE [place] ARAU[place] [facility]
--- OUTSIDE RECORDS SUMMARY | 2024-05-30 08:57 | XMS_ITS ---
Author Name Department of [place] Organization [facility] Address [address] [place] [id number] Care Team Providers Care Flight Control Manager Name Role Phone HUSEYIN LUIS FERNANDO [...] SIMS ION [id number] 1 Jun 20, 2017 [id number] EAMON OLIVIA ERT PATIENT MEDICARE (WNR) MEDICARE (M) PART A Jun 20, 2014 PART A [id number] EAMON OLIVIA ERT PATIENT MEDICARE (WNR) MEDICARE (M) PART B Jun 20, 2014 PART B [id number] EAMON OLIVIA ERT PATIENT MEDICARE (WNR) MEDICARE (M) PART A Jun 20, 2014 PART A [id number] EAMON OLIVIA ERT PATIENT MEDICARE (WNR) MEDICARE (M) PART B Jun 20, 2014 PART B [id number] EAMON OLIVIA ERT PATIENT OPTUM RX PRESCRIPT ION RX Jun 20, 2023 THPRX [id number] [phone] EAMON OLIVIA ERT PATIENT OPTUM RX PRESCRIPT ION RX Jun 20, 2022 THPRX [id number] EAMON OLIVIA ERT PATIENT OPT[facility] RX PRESCRIPT ION RX Jun 20, 2022 THPRX [id number] [phone] DAVON OLIVIA JR PATIENT [facility] Jun 20, 2017 [id number] EAMON OLIVIA ERT PATIENT [facility] [facility] E Jun 20, 2017 [id number] DAVON OLIVIA JR PATIENT [facility] Jun 20, 2017 [id number] [phone] DAVON OLIVIA JR PATIENT [facility] USP Jun 20, 2017 USP [id number] [phone] EAMON OLIVIA ERT PATIENT [facility] Jun 20, 2023 [id number] EAMON OLIVIA ERT PATIENT Selected Encounter This section includes the information on record at [place] for the Encounter. Date/Time Encounter Type Encounter Description Reason Provider Source May 23, 2024 12:00 PM SELF CARE MNGMENT TRAINING [facility] Nursing (RN / LP) ICD-10-CM G20.C Parkinsonism, unspecified RISING,JENNIFER L IHE Encounter Template Text not used by [place] Assessments - Encounter Diagnoses This section includes the primary and secondary diagnoses documented for the Encounter. Date/Time Primary/Secondary Diagnosis Diagnosis Name Provider Source May 24, 2024 02:14 PM PRIMARY Parkinsonism, unspecified RISING,HEATHE R L [place] [facility] [place] [facility] May 24, 2024 02:14 PM SECONDARY Delirium due to known physiological condition RISINGGUILLERMOHE R L [place] [facility] [place] [facility] May 24, 2024 02:14 PM SECONDARY Dysphagia, unspecified RISING,HEATHE R L [facility] May 24, 2024 02:14 PM SECONDARY Weakness RISING,HEATHE R L [facility] Plan of Treatment: Future Appointments (+ 6 months) and Future Tests (+/- 45 days) The Plan of Treatment section includes future care activities for the patient from all [place] treatmentfacilities. This section includes future appointments and [...] of theEncounter. The data comes from all [place] treatment facilities. Test Date/Time Test Type Test Details Facility Name May 25, 2024 12:00 AM Laboratory - Chemistry Order OCCULT BLOOD FIT X1 SCREEN(IN-HOUSE) STOOL FECES SP [facility] May 25, 2024 11:24 AM Consult Order PALLIATIVE CARE CONSULT OUTPT Cons [employer] Professor's Choice [facility] May 25, 2024 04:09 PM Consult Order PROSTHETICS REQUEST Cons [employer] Professor's Choice [facility] May 25, 2024 04:15 PM Consult Order PROSTHETICS REQUEST Cons [employer] Professor's Choice [facility] Jun 24, 2024 12:00 AM Laboratory - Chemistry Order BASIC METABOLIC PANEL (non-fasting) BLOOD (SST-SERUM) [facility] Jun 24, 2024 12:00 AM Laboratory - Chemistry Order LIVER FUNCTION BLOOD (SST-SERUM) [facility] Jun 24, 2024 12:00 AM Laboratory - Chemistry Order MAGNESIUM BLOOD (SST-SERUM) [facility] Jun 24, 2024 12:00 AM Laboratory - Chemistry Order VITAMIN B12 BLOOD (SST-SERUM) [facility] Jun 24, 2024 12:00 AM Laboratory - Chemistry Order VITAMIN D (25-OH) BLOOD (SST-SERUM) SP ONCE [facility] Jun 24, 2024 12:00 AM Laboratory - Chemistry Order CBC AND DIFF (AUTO) BLOOD (LAV-BLOOD) SP [facility] Jun 24, 2024 12:00 AM Laboratory - Chemistry Order IRON & TIBC PANEL BLOOD (SST-SERUM) SP [facility] Jun 24, 2024 12:00 AM Laboratory - Chemistry Order FOLATE (WROX) BLOOD (SST-SERUM) SP [facility]CE [facility] Jun 24, 2024 12:00 AM Laboratory - Chemistry Order FERRITIN BLOOD (SST-SERUM) SP [facility] Jun 24, 2024 12:00 AM Laboratory - Chemistry Order RETICULOCYTES BLOOD (LAV-BLOOD) SP [facility] Jun 24, 2024 12:00 AM Laboratory - Chemistry Order TSH BLOOD (SST-SERUM) [facility] Jun 24, 2024 12:00 AM Laboratory - Chemistry Order PO4 BLOOD (SST-SERUM) [facility] Vital Signs: All taken on the encounter date This section contains inpatient and outpatient Vital Signs collected on the date of the Encounter. Date/Time Temperature Pulse Blood Pressure Respiratory Rate SP02 Pain Height Weight Body Mass Index Source May 23, 2024 12:00 PM 97.9 60 108/64 24 98 0 173.6 29 [facility] Social History: Smoking Status (Most current) and Tobacco Use (All prior to encounter date) This section includes the most current, and the historical, smoking and tobacco- related health factors from the [place] facility where the Encounter took place. Current Smoking Status This section includes the most current smoking, or tobacco-related health factor, from the [place] facility where the Encounter took place. Date/Time Current Smoking Status Comment Facil ity Jan 19, 2023 12:24 PM VA-TOBACCO NEVER USED [facility] Tobacco Use History This section includes a history of the smoking, or tobacco-related health factors, that were collected on or before the date of the Encounter. The data comes from the [place] facility where the Encounter took place. Date/Time Smoking Status/Tobacco Use Comment F acility Jan 15, 2021 11:00 AM VA-TOBACCO NEVER USED [facility] Advance Directives: All historical and current Section Date Range: From patient's date of to the date document was created. This section includes ALL of a patient's completed or amended [place] Advance and Rescinded Directives. The entries below indicate that a directive exists for the patient, but an actual copy is not included with this document. The data comes from all [place] facilities. Date Advance Directives Provider Source Jan 20, 2021 ADVANCE DIRECTIVE BENTON ARAUZ [facility] Encounter Notes: All associated encounter notes This section contains the clinical notes associated to the Encounter. Date/Time Encounter Note(s) Provider Source May 23, 2024 02:53 PM HB ADMISSION EVALUATION NOTE: LOCAL TITLE: [facility] REC THERAPIST NOTE STANDARD TITLE: HB ADMISSION EVALUATION NOTE DATE OF NOTE: MAY 23, 2024@14:53 ENTRY DATE: MAY 23, 2024@14:53:53 AUTHOR: JENNIFER SEGURA COSIGNER: URGENCY: STATUS: COMPLETED [facility] REC THERAPIST NOTE Has ADDENDA WHAT MATTERS What Matters was addressed at this visit. - The Patient Priorities Care (PPC) approach was used to ask and identify What Matters. - The One Thing that Matters to the was used to align the current care plan. Laclede reports what matters the most to him is to be able to live in his house with his with assistance from [facility] and [facility] as long as he can. MEDICATION Medications were addressed at this visit. Spouse manages and administers medications MENTATION Depression was addressed at this visit. Laclede denies feeling depressed. Comment: PHQ-2 Mental Health Screening performed by [facility] RN this visit. Over the past two weeks, how often have you been bothered by the following problems? 1. Little interest or pleasure in doing things? 0 = Not at all 2. Feeling down, depressed, or hopeless? 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 Spouse reports sundowning MENTATION Delirium was addressed at this visit. Comment: No concerns identified during this visit. MOBILITY -------- Mobility was addressed at this visit. Comment: Chairbound at this time. Able to ambulate a few steps with 1 assist, walker and gait belt REASON FOR ASSESSMENT: Yearly re-assessment A new Patient handbook was given and reviewed with Patient and/or caregiver. PATIENT IDENTIFICATION was identified using the following two forms of ID:D.O.B, SS# Laclede is established with [facility], no identification necessary. Length of visit in home: 65 minutes Marital status: Primary language: Moldovan Education: Advance Directive discussed with patient: Yes, Advanced Directive on file, vista imaging Code Status: Full code. Needs MOLST Family/Community Support: Artem lives in a single family home with his Tory who is his primary caregiver/HCP/DPOA. Spouse has limited support. She has a brother Stephon who lives in [place] who will come over and stay with artem while spouse goes on errands. Artem requires assist with all adl's, dependent on all Iadl's. 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 through [facility] Length of time alone during the day: never or hardly ever EMERGENCY/DISASTER PLAN Emergency/Disaster Plan Form completed with /Caregiver and placed on Veterans refrigerator: Yes MEDICATIONS: Active Outpatient Medications (including Supplies): APIXABAN 5MG TAB TAKE ONE TABLET BY MOUTH EVERY 12 HOURS ACTIVE FOR ATRIAL FIBRILLATION ARTIFICIAL SALIVA ORAL SPRAY SPRAY 2 SPRAYS BY MOUTH EVERY ACTIVE 2 HOURS NEEDED FOR DRY MOUTH (USE DIRECTED) CARBIDOPA 25/LEVODOPA 100MG SA TAB TAKE 1 TABLET BY MOUTH ACTIVE FOUR TIMES A DAY CARBIDOPA 25/LEVODOPA 100MG TAB TAKE 1 TABLET BY MOUTH ACTIVE FOUR TIMES A DAY CATH,EXTERNAL EXTENDED WEAR SMALL H#[id number] USE 1 CATHETER ACTIVE URETHRAL ONCE DAILY CHOLECALCIF 25MCG (D3-1,000UNIT) TAB TAKE ONE TABLET BY ACTIVE MOUTH ONCE DAILY FOR VITAMIN SUPPLEMENTATION DEPEND UNDERWEAR,MAXIMUM,MEN LARGE USE 1 BRIEF DIRECTED ACTIVE THREE TIMES A DAY INCONTINENCE DIAPER ADULT LARGE EXTRA ABSORBENT USE 1 BRIEF DIRECTED ACTIVE THREE TIMES A DAY INCONTINENCE FAMOTIDINE 20MG TAB TAKE ONE TABLET BY MOUTH ONCE DAILY ACTIVE FOR STOMACH ACID FEED BAG W/PUMP SET ENFIT COVID#[id number] USE 1 BAG VIA ACTIVE G-TUBE ONCE DAILY NUTRITION GAUZE PAD 4IN X 4IN NONSTERILE APPLY GAUZE(S) TOPICALLY ACTIVE ONCE DAILY HYDROCHLOROTHIAZIDE 25MG TAB TAKE ONE TABLET BY MOUTH ONCE ACTIVE DAILY FOR HIGH BLOOD PRESSURE HYDROXYZINE HCL 10MG TAB TAKE ONE TABLET BY MOUTH AT ACTIVE BEDTIME INCONT LINER PREVAIL GUARDS #[id number] USE 1 LINER TOPICALLY ACTIVE TWO TIMES A DAY INCONT LINER,MENS X-HVY SURECARE #[id number] USE 1 LINER ACTIVE TOPICALLY AT BEDTIME INCONTINENCE WRAP,MALE USE 1 INCONTINENCE WRAP TOPICALLY ACTIVE AT BEDTIME IRRIGATING SYRINGE CATHETER TIP 50-60ML USE 1 SYRINGE ACTIVE NEEDED NUTRITION MELATONIN 5MG CAP/TAB TAKE THREE CAPSULE/TABLETS BY MOUTH ACTIVE AT BEDTIME FOR INSOMNIA MEMANTINE HCL 10MG TAB TAKE ONE TABLET BY MOUTH TWICE ACTIVE (S) DAILY MULTIVITAMIN/MINERALS LIQUID TAKE 1 TABLESPOON (15ML) BY ACTIVE MOUTH ONCE DAILY FOR VITAMIN SUPPLEMENTATION NUTR SUPL OSMOLITE 1.2 WILLIAM LIQUID USE 5 CANS VIA G-TUBE ACTIVE CONTINUOUSLY FOR NUTRITIONAL SUPPLEMENTATION AT 115ML PER HOUR OVERNIGHT AND FLUSH WITH 220ML WATER EVERY 8 HOURS DIRECTED OATMEAL,COLLOIDAL CLEANSING BAR/DRY SKIN DIRECTED ACTIVE TOPICALLY ONCE DAILY FOR SKIN IRRITATION RASAGILINE MESYLATE 1MG TAB TAKE ONE TABLET BY MOUTH ONCE ACTIVE DAILY UNDERPAD,BED ULTRASORB [id number] M#[id number] USE 2 UNDERPADS ACTIVE TOPICALLY AT BEDTIME URINARY DRAINAGE BAG BARD #[id number] USE 1 URINARY DRAINAGE ACTIVE BAG EVERY 7 DAYS VALVEARCHANA ENTERAL,ICU MEDICAL #5610 USE 1 VALVE ONCE ACTIVE DAILY NUTRITION Non-VA DOCUSATE NA 100MG CAP 100MG BY MOUTH ONCE DAILY ACTIVE NEEDED Non-VA LORAZEPAM 0.5MG TAB 0.5MG BY MOUTH ONCE DAILY ACTIVE NEEDED MEDICATION REVIEW: Medication review completed during home visit. The was given the opportunity to discuss and ask questions about all prescription medications as well as dietary and herbal supplements, vitamins, OTC medications, etc. Currently, the is taking his/her medications as per the active orders in the electronic record. Patient has a current, accurate, printed list of medications. who assists patient with medications: Spouse manages and administers medications Most recent Allergies: LIPITOR, AMOXICILLIN, ERYTHROMYCIN, FLOMAX, SEROQUEL, LEVAQUIN, CONTRAST MEDIA MIRTAZAPINE Comments: VITAL SIGNS: Most recent vitals: 97.9 F [36.6 C] (05/23/2024 12:00) 60 (05/23/2024 12:00) 24 (05/23/2024 12:00) 108/64 (05/23/2024 12:00) 0 (05/23/2024 12:00) Men's Health (Male Specific Issues)BPH, urinary incontinence, Nephrolithiasis -------- PAIN ASSESSMENT: Pain Intensity: Scale 1-10 0. Denies pain Pain History- Denies pain Location of new pain: Radiation: Duration: Origin: Description: What exacerbate this pain: Current treatment-medication and non-pharmaceutical: Effectiveness of current treatment: Plan/Education (necessary if pain is greater than 3): Pain management education included a general understanding about pain, the risks for pain, the importance of effective pain management, and the pain assessment process. Done via discussions, printed materials that included the pain education booklet, healthy living pamphlet, CCTV, as needed. MENTAL HEALTH: Depression Screen: Over the past two weeks, how often have you been bothered by the following problems? Laclede denies feeling depressed. Spouse states Laclede's mood has been down since being hospitalized/rehab. Laclede is glad to be back home. Has settled in. 1. Little interest or pleasure in doing things? 0 = Not at all 2. Feeling down, depressed, or hopeless? 0 = Not at all Total Score: 0 Interpretation: Negative Mental Status: alert + oriented x 2. Oriented to date and time. 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 Pureed diet. Laclede having a barium swallowing tomorrow 05/24/24 Dental assessment: Teeth: has own teeth in good condition problem brushing teeth/dentures CARDIOVASCULAR: Hypotension, Atrial flutter, Peripheral Vascular Disease assessment: Hr strong and reg. Denies chest pain, palpations, dizziness. Pulses: apical: strong and regular radial: strong and regular pedal: strong and regular Has a history of DVT. RESPIRATORY: assessment: Ls clear. No use of accessary muscles. Resp easy and reg. Denies SOB, cough GASTROINTESTINAL: Diverticular disease of colon Assessment: Abdomen soft non- tender, non-distended. + bs x 4 quads. moves bowels every two-three days. Baseline G-tube to mid abdomen. Patent + benign. Currently receiving osmolyte 1.2 WILLIAM (2 cartons total 474ML) via g- tube 115 ml/hr last BM:05/22 consistency: formed NUTRITION SCREEN [facility] Nutrition Screen 1. Does the patient have Food Allergies? No If Yes, then detail the food allergies: 2. Does the patient report unintentional weight loss OR gain of at least 10 pounds in the last three months? No If Yes, then specify: 3. Does the patient report a decrease in food intake and/or appetite? Yes 4. Are there dental problems that impact ability to consume food? No 5. Does the patient have a swallowing problem? Yes 6. Does the patient report eating habits or behaviors that may be indicators of an eating disorder (e.g. binging or induced vomiting)? No 7. Persistent nausea, vomiting, or diarrhea? No 8. Is the patient on tube-feeding? Yes 9. Diabetes? No 10.Pressure Sore? No Comments: An [facility] or Home Care Nutrition Consult should be initiated if there is a Yes answer to any of the above listed questions. SKIN ASSESSMENT: Color: Normal Comment: Temperature: Warm, Dry Turgor: Good Skin Condition: Intact Sensory Perception 3. Slightly Limited Moisture 3. Occasionally Moist Activity 2. Chairfast Mobility 2. Very Limited Nutrition 3. Adequate Friction & Shear 2. Potential Problem INTEGUMENTARY: Tre Scale: 15-18 Mild Risk Score:15 Intervention/Plan: ( Severe/Moderate Risk= Refer to Nutrition and OT if applicable and PCP) GENITOURINARY: Incontinent: Type of incontinence: Urinary dysfunction and symptoms of PD-overactivity Treatment for incontinence: Not currently being treated with any medication at this time. wears depends with quick wrap with oversized poise pad. states this method works for him. No skin breakdown MUSCULOSKELETAL: Assessment: Mobility: ambulates a few steps, 1 assist, gait belt and walker unsteady gait difficulty with stairs uses walker wheelchair bound Falls: [facility] 10 Fall Risk Assessment Tool Required [...] timely manner. Includes frequency, urgency, and/or nocturia 1-Visual impairment Includes but not limited to, macular [...] coordination or improper use of assistive devices. 1-Environmental hazards May include but not limited to, [...] adhere to the plan of care. Total: 9 A score of 4 or more is considered at risk for falling. Created by: [facility] Adaptive Equipment Assessment: Adaptive Equipment used in the home: Equipment ordered via prosthetics consult: Referral to PT/OT for evaluation ADL STATUS Bathing dependent (needs help with bathing more than one part of the body, getting in or out of the tub/shower, or requires total bathing) Dressing dependent (needs help dressing self or needs to be completely dressed by others) Toileting dependent (needs help transferring to the toilet, cleaning self, or uses bedpan or bedside commode) Transferring dependent (needs help in moving from bed to chair or needs a complete transfer) Continence dependent (is partially or totally incontinent of bowel or bladder) Feeding independent (gets food from the plate into mouth without help, preparation of food may be done by another) IADL Status Ability to Use Telephone does not use telephone at all Shopping completely unable to shop Food Preparation needs to have meals prepared and served Housekeeping does not participate in any housekeeping tasks Laundry all laundry must be done by others Transportation travels only when accompanied by others Responsibility for Medications is not capable of dispensing own medications Ability to Handle Finances incapable of handling money HEALTH MAINTENANCE: Influenza vaccine habits: SPIRITIAL/SPIRITISM/BELIEFS /CULTURAL: EDUCATIONAL ASSESSMENT: readiness to learn: limited ability to learn: limited reading ability: good existing knowledge of health status: good How does patient like to learn? by listening OVERALL PROGNOSIS: Best description of patient's overall prognosis for recovery from this episode of illness. fair: maintenance of current condition is expected. INFORMATION PROVIDED [X] H&CC services and hours of availability [X] Names of H&CC team members/visit frequency [X] Infection control information [X] Patient rights and responsibilities [X] Advance directives information Reviewed information with patient and caregiver Patient and/or caregiver verbalized understanding of information provided PLAN Plan of Care: initial POC developed: Yes instructed initial POC: Yes anticipated length of care: Yes POC developed with patient/caregiver input: Yes patient and caregiver agree with POC: Yes Next visit date:06/04/24 RNCM made home visit for Annual assessment and hospital/rehab follow up visit. RNCM Annual visit submitted late due to Laclede was in rehab. Documentation will be completed under transformer builder Note instead of [facility] Administrative Reassessment Note since both due. 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 Spouse has limited support. She has a brother Stephon who lives in [place] who will come over and stay with vet while spouse goes on errands. Vet requires assist with all adl's, dependent on all Iadl's. 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 PMHX: Parkinson's Disease, Squamous cell carcinoma, basal cell carcinoma, hypotension, BPH, hematuria, diverticular disease, internal hemorrhoids, sleep behavior disorder, ZAC, PVD, migraines, solitary of lung, dupuytren's contracture, atrial flutter, HX of DVT, memory loss, sundowning, urinary incontinence, insomnia, GERD, A-fib, kidney stones. Past Surgical History: septoplasty, deputren's surgery both hands. 2 heart ablations for afib, 3 lithotripsies. SCC forearm, left. Laclede is followed by multiple community providers Community Flare Stitcher- Dr. Emil Davis Community PCP- Shirin Patrick Community Neurologist- Dr. Fabby Donahue [facility]- Dr. Lloyd Soares [facility]- Dr. Svitlana Hand admitted to [facility] on 04/16 after a fall at home resulting in closed right hip fracture. S/P R hemiarthroplasty on 04/[address] Benjamin. Hospitalization complicated by aspiration pneumonia, dysphagia, resulting in G- tube. Laclede discharged from [facility] and transferred to [facility] for rehab. Laclede discharged home from rehab WBAT and on 05/21 on g-tube feedings. Laclede sitting in recliner upon arrival, spouse present. Laclede nodding off during visit. Spouse reports is doing well still weak and decreased strength and endurance. is currently receiving CD VNA service for nursing, PT, OT, speech. [facility] Isaiah started back up. Laclede scheduled for barium swallow tomorrow at [facility]. [facility] will be going to appt with and spouse to assist. Laclede alert + oriented x 2 cooperative with care. Oriented to date and time. Well groomed. Dressed appropriately. Poor eye contact. Relying on spouse to answer questions. Will answer with yes , no or nod is head. Daytime sleepiness. Speech monotone, able to understand. Muscle rigidity to upper and lower extremities. He has drooling taking glycopyrrolate which spouse states is helping. Laclede with sundowning that starts early evening. Since discharged home having hard time settling at night. No hallucinations or behavior issues at this time. Blood pressure fluctuates. Today BP on the lower side 108/64. Reviewed drinking at least 48 oz of water daily. Denies chest pain, palpations, dizziness. Afib controlled with meds. On apixaban. Taking as directed. Denies bleeding. Reviewed bleeding precautions. High fall risk. Spouse has been educated on risk vs benefit due to multiple falls. R hip incision healed, completely epithelized. No redness or drainage noted. Denies pain. Spouse reports Laclede hasn't been complaining of pain, no facial grimacing or moaning. Able to ambulate a short distance with 1 assist, gait belt and walker. . Abdomen soft non-tender, non-distended + bs x 4. Moving bowels every 2-3 days. G-tube to mid abdomen patent + benign. Surrounding area c/d/i. independent with g-tube feedings. Educated on aspiration precautions, how to check for residual and hold feeding if residual is >200, head of bed elevated 30-45 degree angle during feedings and 30 minutes post feedings. Spouse verbalized understanding with 100% teach back. Dysphagia: [place] on pureed diet. Scheduled for barium swallow tomorrow at [facility]. Spouse reports eating 3 meals a day and drinking 1-2 cups of fluid each meals since discharged home from rehab. [place] had 1 piece of [place] toast this morning made with 2 eggs whole milk. [place] saturated in butter and syrup. 1 cup of whole milk. ate 100% of meal with no difficulty swallowing. Spouse reports [place] had grill cheese and can of soda yesterday for dinner spouse cut off the crust and ate with no difficulty swallowing. No choking episodes. Spouse reports she is giving tube feedings at night, 2 cartons of osmolyte 1.2 william (237 ml per carton)115 ml/hr and flushing with 220 ml of water every 8 hours. RNCM reviewed rehab data warehousing engineer has [place] on 5 cans at 115mL/hr overnight, flush 220mL water every 8hrs. Spouse reports that is not what they were giving him in rehab, [place] was receiving 2 cartons at night. Spouse reports she was there during feedings. Rehab sent home with 1 week worth of feedings per discussion with rehab data warehousing engineer. [place] sent home with 14 cartons which is 2 cartons daily x 1 week. RNCM spoke to [facility] RD during visit via TEAMS and reported the above findings. Reported HB PT weighed yesterday 173.[address] is eating and drinking well he is to continue what spouse has been giving him. [place] having barium swallow tomorrow, HB RD making home visit 05/29 and [facility] PT will weigh [place] next Monday 05/28. [facility] RD will review barium swallow, weight, and how much is consuming PO and make recommendations at her visit. manages and administers meds. Administering meds in pudding or applesauce. Little trouble swallowing. Needs extra sip of a drink to get pills down. Reviewed medication regimen. Spouse administering meds as directed. Reviewed with spouse glycopyrrolate and hydroxyzine has and she will need to call neurologist to renew medications. Spouse verbalized understanding. RNCM will revisit 1on 06/04 for chronic disease management, primary care needs, neuro assessment, gi assessment, c/v and c/p assessment, assess diet, review meds /es/ JENNIFER SEGURA PORCELAIN ENAMEL SPRAYER [employer] PACKAGE CAR DRIVER Signed: 05/24/2024 14:14 Receipt Acknowledged By: 05/24/2024 17:47 /es/ Micki Dos Santos, PharmD Clinical Pharmacy Practitioner for CANDICE GEORGE * AWAITING SIGNATURE * RAMIN MENDIETA 05/24/2024 16:09 /es/ RIGO FENTON, MS, RDN, LDN Staff Dietitian 05/24/2024 15:01 /es/ CEE REYES PUMP SERVICER SUPERVISOR [facility] Senior Mechanical Design Engineer for KAMILAH MALCOLM 05/25/2024 07:48 /es/ LUIS FERNANDO FONTANEZ CAMPAIGN DEVELOPER-C [facility] NURSE PRACTITIONER 05/24/2024 ADDENDUM STATUS: COMPLETED Please renew if in agreement. Thank you OUTPT HYDROPHILIC (EQV EUCERIN) TOP CREAM (Status = ) APPLY A LIBERAL AMOUNT TOPICALLY ONCE DAILY FOR DRY SKIN Rx# [id number] Last Released: 08/03/23 Qty/Days Supply: 1362/90 Rx Expiration Date: 05/20/24 Refills Remainin Indication: FOR DRY SKIN OUTPT POLYETHYLENE GLYCOL 3350 ORAL PWDR (Status = ) TAKE 17 GRAMS(FILL CAP TO 17GM LINE) BY MOUTH ONCE DAILY FOR CONSTIPATION [MIX WITH 4 TO 8OZ. OF BEVERAGE] Rx# [id number] Last Released: 08/05/23 Qty/Days Supply: 1530/90 Rx Expiration Date: 05/20/24 Refills Remainin Indication: FOR CONSTIPATION OUTPT ORAL,SWAB TOOTHETTE (Status = ) USE 1 MOUTH SWAB DIRECTED ONCE DAILY TO USE WITH CHLOREHEXADINE ORAL RINSE Rx# [id number] Last Released: 08/05/23 Qty/Days Supply: 250/90 Rx Expiration Date: 05/20/24 Refills Remainin /sharron/ JENNIFER SEGURA [employer]CELAIN ENAMEL SPRAYER [facility] PACKAGE CAR DRIVER Signed: 05/24/2024 14:19 JENNIFER SEGURA CNTRL [facility]
--- OUTSIDE RECORDS SUMMARY | 2024-05-30 08:57 | XMS_ITS ---
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 Name Role Phone LUIS FERNANDO FONTANEZ Primary [...] PRESCRIPT ION [id number] 1 Jun 20, 2017 [id number] EAMON OLIVIA ERT PATIENT MEDICARE (WNR) MEDICARE (M) PART A Jun 20, 2014 PART A [id number] EAMON OLIVIA ERT PATIENT MEDICARE (WNR) MEDICARE (M) PART B Jun 20, 2014 PART B [id number] [phone] EAMON OLIVIA ERT PATIENT MEDICARE (WNR) MEDICARE (M) PART A Jun 20, 2014 PART A [id number] EAMON OLIVIA ERT PATIENT MEDICARE (WNR) MEDICARE (M) PART B Jun 20, 2014 PART B [id number] EAMON OLIVIA ERT PATIENT [facility] RX PRESCRIPT ION RX Jun 20, 2023 THPRX [id number] EAMON OLIVIA ERT PATIENT [facility] RX PRESCRIPT ION RX Jun 20, 2022 THPRX [id number] [phone] EAMON OLIVIA ERT PATIENT [facility] RX PRESCRIPT ION RX Jun 20, 2022 THPRX [id number] DAVON OLIVIA JR PATIENT [facility] T[facility] MAR Jun 20, 2017 [id number] EAMON OLIVIA ERT PATIENT [facility] TON PEÑA E Jun 20, 2017 [id number] DAVON OLIVIA JR PATIENT [facility] PEÑA E Jun 20, 2017 [id number] DAVON OLIVIA JR PATIENT [facility] USP Jun 20, 2017 USP [id number] EAMON OLIVIA ERT PATIENT [facility] T[facility] Jun 20, 2023 [id number] EAMON OLIVIA ERT PATIENT Selected Encounter This section includes the information on record at [place] for the Encounter. 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 Date/Time Primary/Secondary Diagnosis Diagnosis Name Provider Source May 25, 2024 02:23 PM PRIMARY Dysphagia, unspecified YOUNG,LUIS FERNANDO [facility] [place] [facility] May 25, 2024 02:23 PM SECONDARY Basal cell carcinoma of skin, unspecified YOUNGLUIS FERNANDO A [facility] [place] [facility] May 25, 2024 02:23 PM SECONDARY Benign prostatic hyperplasia without lower urinry tract symp HUSEYINLUIS FERNANDO A [facility] [place] [facility] May 25, 2024 02:23 PM SECONDARY Calculus of kidney HUSEYINLUIS FERNANDO [place] [facility] [place] [facility] May 25, 2024 02:23 PM SECONDARY Constipation, unspecified HUSEYINLUIS FERNANDO [place] [facility] [place] [facility] May 25, 2024 02:23 PM SECONDARY Disturbances of salivary secretion HUSEYINLUIS FERNANDO [place] [facility] [place] [facility] May 25, 2024 02:23 PM SECONDARY Essential (primary) hypertension HUSEYINLUIS FERNANDO [place] [facility] [place] [facility] May 25, 2024 02:23 PM SECONDARY Gastro-esophageal reflux disease without esophagitis HUSEYINLUIS FERNANDO [facility] [place] [facility] May 25, 2024 02:23 PM SECONDARY Hematuria, unspecified LUIS FERNANDO FONTANEZ [facility] [place] [facility] May 25, 2024 02:23 PM SECONDARY Hypotension, unspecified LEN FONTANEZGH [place] [facility] [place] [facility] May 25, 2024 02:23 PM SECONDARY Insomnia, unspecified LUIS FERNANDO FONTANEZ [facility] [place] [facility] May 25, 2024 02:23 PM SECONDARY Lobar pneumonia, unspecified organism HUSEYINLUIS FERNANDO [place] [facility] [place] [facility] May 25, 2024 02:23 PM SECONDARY 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 LUIS FERNANDO FONTANEZ [facility] [place] [facility] May 25, 2024 02:23 PM SECONDARY Migraine, unsp, not intractable, without status migrainosus HUSEYINLUIS FERNANDO [facility] [place] [facility] May 25, 2024 02:23 PM SECONDARY Obstructive sleep apnea (adult) (pediatric) LUIS FERNANDO FONTANEZ [facility] [place] [facility] May 25, 2024 02:23 PM SECONDARY Other amnesia LUIS FERNANDO FONTANEZ [facility] [place] [facility] May 25, 2024 02:23 PM SECONDARY Parkinson's dis w/o dyskinesia, w/o mention of fluctuations LUIS FERNANDO FONTANEZ [facility] May 25, 2024 02:23 PM SECONDARY Peripheral vascular disease, unspecified LU[facility]NAND[facility]ANEZ [facility] May 25, 2024 02:23 PM SECONDARY Personal history of other venous thrombosis and embolism LUIS FERNANDO FONTANEZ [facility] May 25, 2024 02:23 PM SECONDARY Presence of right artificial hip joint LUIS FERNANDO FONTANEZ [facility] May 25, 2024 02:23 PM SECONDARY Squamous cell carcinoma of skin, unspecified LUIS FERNANDO FONTANEZ [facility] May 25, 2024 02:23 PM SECONDARY Thrombocytosis, unspecified LUIS FERNANDO FONTANEZ [facility] May 25, 2024 02:23 PM SECONDARY Unspecified atrial fibrillation LUIS FERNANDO FONTANEZ [facility] May 25, 2024 02:23 PM SECONDARY Unspecified atrial flutter LUIS FERNANDO FONTANEZ [facility] May 25, 2024 02:23 PM SECONDARY Unspecified urinary incontinence LUIS FERNANDO FONTANEZ [facility] Plan of Treatment: Future Appointments (+ 6 months) and Future Tests (+/- 45 days) The Plan of Treatment section includes future care activities for the patient [facility] [place] [facility] This section includes future appointments [...] of theEncounter. The data comes from all [place] treatment facilities. Test Date/Time Test Type Test Details Facility Name May 25, 2024 12:00 AM Laboratory - Chemistry Order OCCULT BLOOD FIT X1 SCREEN(IN-HOUSE) STOOL FECES SP [facility] May 25, 2024 11:24 AM Consult Order PALLIATIVE CARE CONSULT OUTPT Cons Oracle Applications Developer's Choice [facility] Jun 24, 2024 12:00 AM Laboratory - Chemistry Order BASIC METABOLIC PANEL (non-fasting) BLOOD (SST-SERUM) SP [facility] Jun 24, 2024 12:00 AM Laboratory - Chemistry Order LIVER FUNCTION BLOOD (SST-SERUM) SP [facility] Jun 24, 2024 12:00 AM Laboratory - Chemistry Order MAGNESIUM BLOOD (SST-SERUM) SP [facility] Jun 24, 2024 12:00 AM Laboratory - Chemistry Order VITAMIN B12 BLOOD (SST-SERUM) SP [facility] Jun 24, 2024 12:00 AM Laboratory - Chemistry Order CBC AND DIFF (AUTO) BLOOD (LAV-BLOOD) SP [facility] Jun 24, 2024 12:00 AM Laboratory - Chemistry Order VITAMIN D (25-[place]) BLOOD (SST-SERUM) SP ONCE [facility] Jun 24, 2024 12:00 AM Laboratory - Chemistry Order IRON & TIBC PANEL BLOOD (SST-SERUM) SP [facility] Jun 24, 2024 12:00 AM Laboratory - Chemistry Order FERRITIN BLOOD (SST-SERUM) SP [facility] Jun 24, 2024 12:00 AM Laboratory - Chemistry Order FOLATE (WROX) BLOOD (SST-SERUM) SP ONCE [facility] Jun 24, 2024 12:00 AM Laboratory - Chemistry Order RETICULOCYTES BLOOD (LAV-BLOOD) SP [facility] Jun 24, 2024 12:00 AM Laboratory - Chemistry Order TSH BLOOD (SST-SERUM) SP [facility] Jun 24, 2024 12:00 AM Laboratory - Chemistry Order PO4 BLOOD (SST-SERUM) [facility] Vital Signs: All taken on the encounter date This section contains inpatient and outpatient Vital Signs collected on the date of the Encounter. Date/Time Temperature Pulse Blood Pressure Respiratory Rate SP02 Pain Height Weight Body Mass Index Source May 25, 2024 11:00 AM 97.1 54 106/62 20 99 0 [facility] Social History: Smoking Status (Most [...] Date/Time Current Smoking Status Comment Facil ity May 25, 2024 09:30 AM VA-TOBACCO NEVER U SED CIGARETTES [facility] Tobacco Use History This section includes a history of the smoking, or tobacco-related health factors, that were collected on or before the date of the Encounter. The data comes from the [place] facility where the Encounter took place. Date/Time Smoking Status/Tobacco Use Comment F acility May 25, 2024 09:30 AM VA-TOBACCO NEVER U SED OTHER TYPE [facility] Jan 19, 2023 12:24 PM VA-TOBACCO NEVER USED [facility] Jan 15, 2021 11:00 AM VA-TOBACCO NEVER USED [facility] Advance Directives: All historical and [...] Encounter. Date/Time Encounter Note(s) Provider Source May 28, 2024 07:07 AM LIFE-SUSTAINING TREATMENT PLAN: LOCAL TITLE: LIFE-SUSTAINING TREATMENT STANDARD TITLE: LIFE-SUSTAINING TREATMENT PLAN DATE OF NOTE: MAY 28, 2024@07:07 ENTRY DATE: MAY 28, 2024@07:07:51 AUTHOR: LUIS FERNANDO FONTANEZ COSIGNER: URGENCY: STATUS: COMPLETED LIFE-SUSTAINING TREATMENT Has ADDENDA LIFE-SUSTAINING TREATMENT (LST) DECISION-MAKING CAPACITY TO MAKE DECISIONS ABOUT LIFE_SUSTAINING TREATMENTS Patient does not have capacity to make decisions about LSTs ;LST plan written based on discussion with surrogate. HEALTH CARE SURROGATE'S NAME AND CONTACT INFORMATION Health Care Agent named in Durable Power of Internet Merchant for Health Care Name and Contact Information: Tory Olivia 'S VALUES AND GOALS OF CARE - Goals as reported by the patient (or surrogate): to keep [place] home and not in a long-term LIFE-SUSTAINING TREATMENT PLAN * In the event of cardiopulmonary arrest: DNAR/DNR: Do not attempt CPR. Other Life-Sustaining Treatments: Mechanical Ventilation - In the event of respiratory distress or failure when the patient HAS A PULSE, the patient: Does NOT want invasive mechanical ventilation (e.g., via endotracheal or tracheostomy tube). Dialysis - The patient: Does NOT want dialysis. INFORMED CONSENT Life-sustaining treatment plan written based on valid state-authorized portable orders. STATE-AUTHORIZED PORTABLE ORDERS (YOAN) - Patient already has YOAN reflecting LST preferences --------- Time spent discussing and documenting this care planning activity. /consuelo HICKEY-C [facility] NURSE PRACTITIONER Signed: 05/28/2024 07:14 05/28/2024 ADDENDUM STATUS: COMPLETED POLST filled out during hsp admission. /consuelo HICKEY-C [facility] NURSE PRACTITIONER Signed: 05/28/2024 07:15 LUIS FERNANDO FONTANEZ [place] [facility] [place] [facility] May 25, 2024 02:24 PM ADDENDUM: LOCAL TITLE: Addendum STANDARD TITLE: ADDENDUM DATE OF NOTE: MAY 25, 2024@14:24:41 ENTRY DATE: MAY 25, 2024@14:24:41 AUTHOR: LUIS FERNANDO FONTANEZ EXP COSIGNER: URGENCY: STATUS: COMPLETED [place] would like palliative care complex hsp stay with discharge to SNF now home. /consuelo HICKEY-C [facility] NURSE PRACTITIONER Signed: 05/25/2024 14:25 Receipt Acknowledged By: 05/29/2024 13:33 /sharron/ JOSE ESPARZA RN STAFF REPORTER * AWAITING SIGNATURE * KAN KWON --- Original Document --- 05/25/24 HB PROVIDER ASSESSMENT: [facility] Provider Assessment Visit 73 year old MALE seen in home today for annual visit due in Apr however he was hospitalized s/p fall. Also present for visit: Chief complaint/History of present illness: Mr. Olivia is a 73 y/o male [place] with a history of Parkinson's disease, ZAC, nephrolithiasis, HTN, Constipation, Afib anticoagulated, BPH, hematuria, SCC and BCC, dysphagia, intermittent hypotension, Migraine, subdural hematoma 2021, PVD, GERD, sundowning, VT, Insomnia, dementia with recent fall on 04/16 resulting in right hip fracture and hospitalization with rehab stay. Due to history of DVT and right lower leg swelling post hip replacement US was done but showed no acute findings. 04/16 attempted to walk on his own fell on his right side and suffered a closed right hip fracture and subsequently underwent a right hip hemiarthroplasty on 04/19/[address] Benjamin. He did hit his head when he fell CT of head did not show acute intracranial findings and no cervical fracture or malalignment. Repeat head CT on 05/02/2024 showed no acute intracranial findings. Chest x-ray was performed on 04/20/2024 that showed right lower lobe patchy infiltrate, patient was started on ceftriaxone and doxycycline and completed a 5-day antibiotic treatment, he required DuoNebs and Mucinex, on 05/02 he had fine crackles and increased work of breathing and empirically was started on Rocephin for 5 days with improvement on day 3. Repeat chest x-ray 05/03/2024 impression: Left costophrenic angle blunting, no enlarging effusion. No edema It was noted that he had thrombocytosis most likely caused by recent trauma peripheral smear was done: Thrombocytosis with rare clumps of platelets. No giant or atypical platelets are present, Mild normocytic [facility] dysphagia on 05/01/2024 he underwent an 18 Slovak gastrostomy placement with fluoroscopic guidance under conscious sedation. reports Post op he was without his Sinemet immediate and extended release became unconscious but after he was restarted on Sinemet and his LOC improved. CT head done at this time. discharged from [facility] and transferred to [facility] for rehab. discharged home from rehab on 05/21 with continued g-tube feedings. [place] had modified barium swallow on 05/24/24 reports very difficult to get in and out of vehicle requesting transportation Van to take him to future appointments. Post op he was without his Sinemet immediate and extended release became unconscious but after he was restarted on Sinemet and his LOC improved. CT head done at this time. states she filled out a POLST form while in the hospital and now [place] is DNR. Discussed palliative care vs. hospice and she states she would like to a palliative care consult she does not feel he is ready for hospice. TESTING RESULTS: Labs 05/04/2024 WBC 8.3 RBC 3.65 hemoglobin 10.6 hematocrit 32.8 platelets 671 MCV 89.9 MCH 29.0 MCHC 32.3 RDW 13.5 MPV 8.5 sodium 139 chloride 102 potassium 4.3 CO2 29 BUN 22 creatinine 0.80 glucose 139 calcium 9.2 GFR 93 anion gap 12 magnesium 2.0 phosphorus 3.1 04/21 Immuno fecal occult Positive 04/26/2024 2:[address] ABDOMEN WITHOUT CONTRAST Referring clinician's provided indication for this examination in [facility]: aspiration pneumonia. G tube requested. ? clear path into stomach percutaneously TECHNIQUE: Multidetector-row CT of the abdomen was performed without intravenous contrast using tailored dose modulation techniques. Images were reconstructed in the axial, coronal, and sagittal planes. COMPARISON: CT ABDOMEN/PELVIS WITHOUT CONTRAST ; CT ABDOMEN/PELVIS WITHOUT CONTRAST ; CT ABDOMEN/PELVIS WITHOUT CONTRAST ABSENCE OF INTRAVENOUS CONTRAST DECREASES SENSITIVITY FOR DETECTION OF FOCAL LESIONS AND VASCULAR PATHOLOGY. FINDINGS: Lower Chest: New small bilateral pleural effusions. Bibasilar atelectasis. At least moderate coronary artery calcifications. Liver: Stable right lobe hepatic hypodensity, likely a cyst. No solid mass. Biliary: Normal gallbladder. No biliary ductal dilatation. Spleen: No splenomegaly or focal lesions. Pancreas: No masses or ductal dilatation. Adrenal Glands: No nodules. Kidneys/Ureters: Nonobstructing left renal calculi measuring up to 8 mm. Small right lower pole cyst. No hydronephrosis. Bowel: Nasogastric tube in place with distal tip in the body the stomach. Decompressed large and small bowel. Scattered colonic diverticulosis. Peritoneum/Retroperitoneum: No masses, pneumoperitoneum, or fluid. Lymph Nodes: No lymphadenopathy. Vessels: No abdominal aortic aneurysm. Mild atherosclerosis. Circumaortic left renal vein. Bones/Soft Tissues: Osseous demineralization. Degenerative changes of the spine. No suspicious lytic or blastic lesions. 04/23/2024 12:17 PM EST US LOWER EXTREMITY VEINS DUPLEX (RIGHT) Referring clinician's provided indication for this examination in Epic: Edema; Right Leg Pain; Swelling of Limb; recent hip surgery TECHNIQUE: Lower extremity venous ultrasound with color and spectral Doppler. COMPARISON: None FINDINGS: Exam Quality: Technically adequate exam demonstrates: Right lower extremity Common femoral vein: Normal compressibility and flow characteristics. Femoral vein: Normal compressibility and flow characteristics. Proximal profunda femoral vein: Normal compressibility. Popliteal vein: Normal compressibility and flow characteristics. Posterior tibial veins: Normal compressibility. Peroneal veins: Normal compressibility. Great saphenous vein: Normal compressibility at the saphenofemoral junction. Contralateral common femoral vein: Not visualized TTE complete 05/02/2024 Normal LV size and function EF 65 to 70%. No real significant valvular heart disease is seen. Trace mitral regurgitation. Indeterminate diastolic function. E/E prime ratio is borderline high. Normal RV size and function. Could not really get a very accurate PA pressure estimation due to lack of TR jet. The 1 tracing they had suggested it was mildly high but I am not sure this is accurate. Left Ventricle The left ventricle is normal in size. There is normal wall thickness. There is normal left ventricular systolic function. The LV ejection fraction is 70% (calculated via biplane measurement). There are no wall motion abnormalities. There is abnormal diastolic function. Doppler profiles appear consistent with pseudonormal left ventricular filling. The E/A ratio is 2.7. The e' septal wave velocity is 7.8 cm/s. The e' lateral wave velocity is 14.3 cm/s. The average E/e' ratio is 11.9. Right Ventricle The right ventricle is normal in size. The RV basal dimension is 39 mm. There is normal right ventricular systolic function. TAPSE is 23 mm. RV S' wave is 14.3 cm/s. Left Atrium The left atrium is normal in size. The left atrial volume is 40 mL. There are normal flow patterns in the pulmonary vein. Right Atrium The right atrium is normal in size. The right atrial area is 14 cm2. The IVC is normal in size with normal inspiratory collapse. This is consistent with normal RA pressure. The IVC diameter is 15 mm (normal = 21 mm). Hepatic veins are normal in size. Mitral Valve The mitral valve appears normal. There is no mitral stenosis. There is mild mitral regurgitation. Tricuspid Valve The tricuspid valve appears normal. There is no tricuspid stenosis. There is trace to mild tricuspid regurgitation. The RV systolic pressure was calculated at 37 mmHg (using TR peak velocity of 2.9 m/s and assuming an RA pressure of 3 mmHg). Pulmonary pressures are mildly elevated. Aortic Valve The aortic valve is tricuspid. There is calcification of multiple leaflets. The peak and mean aortic valve gradients are 11 mmHg and 6 mmHg respectively. There is no aortic regurgitation. The visualized portions of the thoracic aorta appear normal in size. Pulmonic Valve The pulmonic valve appears normal. Pericardium There is no pericardial effusion. There are no pleural effusions. General Findings The image quality was good (2). Technique(s) used in the evaluation: Color flow Doppler and Spectral Doppler. The predominant rhythm during the study was sinus. Comparison Findings There are no prior studies for comparison. IAS/IVS The interatrial septum appears normal. There is no evidence of patent foramen ovale (PFO). The interventricular septum appears normal. There is no evidence of a ventricular septal defect. Modified Barium Swallow 05/24/24 @ [facility] Impression: Subglottic aspiration with thin barium consistency. Laryngeal penetration with the Vallecular residuals of the nectar consistency. [place] is followed by multiple community providers NON [place] Neurology: Dr. Godfrey Doan Hsp 2017 diagnosis [facility] 07[facility]23 Dr. Barrera NON [place] PCP: Dr. Bernadine Beyer appt today at 3pm video appt NON [place] Impregnation Operator Dr. Emil Davis upcoming appt 07/27/[address] [place] [address] Soares - pending follow up to be scheduled NON [place] Cardiology: Dr. Man Social Work Associate [facility] cardiology 12/13/23 upcoming [facility]. NON [place] Orthopedist: MIRELA HUTCHISON [place] Gastroenterology: retired Dr. Jeremiah Hansen [facility]- Dr. Svitlana Hand Drug allergies: LIPITOR, AMOXICILLIN, ERYTHROMYCIN, FLOMAX, SEROQUEL, LEVAQUIN, CONTRAST MEDIA MIRTAZAPINE Medication list reviewed and reconciled with pt. Active and Recently Outpatient Medications (including Supplies): Active Outpatient Medications Status 1) APIXABAN 5MG TAB TAKE ONE TABLET BY MOUTH EVERY 12 HOURS FOR ACTIVE Indication: ATRIAL FIBRILLATION 2) ARTIFICIAL SALIVA ORAL SPRAY SPRAY 2 SPRAYS BY MOUTH EVERY 2 ACTIVE HOURS NEEDED (USE DIRECTED) Indication: FOR DRY MOUTH 3) CARBIDOPA 25/LEVODOPA 100MG SA TAB TAKE 1 TABLET BY MOUTH ACTIVE FOUR TIMES A DAY 4) CARBIDOPA 25/LEVODOPA 100MG TAB TAKE 1 TABLET BY MOUTH FOUR ACTIVE TIMES A DAY 5) CATH,EXTERNAL EXTENDED WEAR SMALL H#[id number] USE 1 CATHETER ACTIVE URETHRAL ONCE DAILY Indication: INCONTINENCE 6) CHLORHEXIDINE GLUCONATE 0.12% MOUTHWASH RINSE 15ML BY MOUTH ACTIVE (S) ONCE DAILY - SWISH AND SPIT. DO NOT SWALLOW Indication: FOR INFLAMMATION OF THE GUMS 7) CHOLECALCIF 25MCG (D3-1,000UNIT) TAB TAKE ONE TABLET BY ACTIVE MOUTH ONCE DAILY FOR VITAMIN SUPPLEMENTATION Indication: FOR VITAMIN D DEFICIENCY 8) DEPEND UNDERWEAR,MAXIMUM,MEN LARGE USE 1 BRIEF DIRECTED ACTIVE THREE TIMES A DAY Indication: INCONTINENCE 9) DIAPER ADULT LARGE EXTRA ABSORBENT USE 1 BRIEF DIRECTED ACTIVE THREE TIMES A DAY Indication: INCONTINENCE 10) FAMOTIDINE 20MG TAB TAKE ONE TABLET BY MOUTH ONCE DAILY FOR ACTIVE STOMACH ACID Indication: FOR HEARTBURN 11) FEED BAG W/PUMP SET ENFIT COVID#[id number] USE 1 BAG VIA G-TUBE ACTIVE ONCE DAILY Indication: NUTRITION 12) HYDROPHILIC (EQV EUCERIN) TOP CREAM APPLY A LIBERAL AMOUNT ACTIVE (S) TOPICALLY ONCE DAILY Indication: FOR DRY SKIN 13) INCONT LINER PREVAIL GUARDS #[id number] USE 1 LINER TOPICALLY ACTIVE TWO TIMES A DAY Indication: INCONTINENCE 14) INCONT LINER,MENS X-HVY SURECARE #[id number] USE 1 LINER ACTIVE TOPICALLY AT BEDTIME Indication: INCONTINENCE 15) WRAP,MALE USE 1 WRAP TOPICALLY AT BEDTIME ACTIVE Indication: INCONTINENCE 16) IRRIGATING SYRINGE CATHETER TIP 50-60ML USE 1 SYRINGE ACTIVE NEEDED Indication: NUTRITION 17) MELATONIN 5MG CAP/TAB TAKE THREE CAPSULE/TABLETS BY MOUTH AT ACTIVE BEDTIME Indication: FOR INSOMNIA 18) MEMANTINE HCL 10MG TAB TAKE ONE TABLET BY MOUTH TWICE DAILY ACTIVE (S) 19) MIDODRINE HCL 5MG TAB TAKE ONE TABLET BY MOUTH THREE TIMES ACTIVE (S) DAILY NEEDED Indication: FOR LOW BLOOD PRESSURE 20) MULTIVITAMIN/MINERALS LIQUID TAKE 1 TABLESPOON (15ML) BY ACTIVE MOUTH ONCE DAILY Indication: FOR VITAMIN SUPPLEMENTATION 21) NUTR SUPL OSMOLITE 1.2 WILLIAM LIQUID USE 5 CANS VIA G-TUBE ACTIVE CONTINUOUSLY AT 115ML PER HOUR OVERNIGHT AND FLUSH WITH 220ML WATER EVERY 8 HOURS DIRECTED Indication: FOR NUTRITIONAL SUPPLEMENTATION 22) OATMEAL,COLLOIDAL CLEANSING BAR/DRY SKIN DIRECTED ACTIVE TOPICALLY ONCE DAILY Indication: FOR SKIN IRRITATION 23) POLYETHYLENE GLYCOL 3350 ORAL PWDR TAKE 17 GRAMS(FILL CAP TO ACTIVE (S) 17GM LINE) BY MOUTH ONCE DAILY [MIX WITH 4 TO 8OZ. OF BEVERAGE] Indication: FOR CONSTIPATION 24) RASAGILINE MESYLATE 1MG TAB TAKE ONE TABLET BY MOUTH ONCE ACTIVE DAILY 25) UNDERPAD,BED ULTRASORB [id number] M#[id number] USE 2 UNDERPADS ACTIVE TOPICALLY AT BEDTIME Indication: INCONTINENCE 26) URINARY DRAINAGE BAG BARD #[id number] USE 1 URINARY DRAINAGE BAG ACTIVE EVERY 7 DAYS Indication: INCONTINENCE 27) VALVE,ARCHANA [facility] #[id number] USE 1 VALVE ONCE DAILY ACTIVE Indication: NUTRITION Pending Outpatient Medications Status 1) BISACODYL 10MG RTL SUPP INSERT 1 SUPPOSITORY(IES) RECTALLY PENDING ONCE DAILY NEEDED FOR BOWELS - LAXATIVE Indication: FOR CONSTIPATION 2) GLYCOPYRROLATE 2MG TAB TAKE ONE TABLET BY MOUTH DIRECTED PENDING BY PROVIDER 2-3 TIMES PER DAY NEEDED FOR SECRETIONS 3) HYDROCHLOROTHIAZIDE 25MG TAB TAKE ONE TABLET BY MOUTH ONCE PENDING DAILY Indication: FOR CALCIUM IN URINE 4) HYDROXYZINE HCL 10MG TAB TAKE ONE TABLET BY MOUTH AT BEDTIME PENDING NEEDED Indication: INSOMNIA 5) ORAL,SWAB TOOTHETTE USE 1 MOUTH SWAB DIRECTED ONCE DAILY PENDING TO USE WITH CHLOREHEXADINE ORAL RINSE 6) TAPE,MICROPORE 2IN [employer] #1530-2 USE 1 PIECE TOPICALLY ONCE PENDING DAILY NEEDED Indication: FOR TUBE FEED CONNECTION Inactive Outpatient Medications Status 1) ORAL,SWAB TOOTHETTE USE 1 MOUTH SWAB DIRECTED ONCE DAILY TO USE WITH CHLOREHEXADINE ORAL RINSE 34 Total Medications PM/SH:Problem list reviewed. Active problems - Computerized Problem List is the source for the followin. Obstructive sleep apnea 2. Nephrolithiasis CT [place] [facility], multiple stones, no hydronephrosis 3. Excessive salivation 4. HTN - Hypertension ([facility] [id number]) 5. Constipation 6. Under care of multiple providers Dr. Shirin Pérez [facility] PCP Neurologist : Dr. Dino Doan [facility] Orthopedist: MIRELA Monahan [place] [employer] Teacher: Dr. Ha Man 7. Exposure to potentially [...] reflux disease 31. AF- Atrial Fibrillation (SCT [id number]) followed by [facility] 32. Parkinson's disease followed by [facility] Dr. Fabby Sun Normal Swallow Evaluation 02/2024 33. Kidney Stone (SCT [id number]) RATED DISABILITIES - NONE FOUND SERVICE CONNECTED % - NONE FOUND PFSH:Cardiac elctrophysiology study with ablation X 2, colonoscopy, laser lithotripsy cystoscopy uretoscopy retrograde stent placement bilateral X 3, nasal septum surgery, Dupuytren's contracture both hands, right hip hemiarthroplasty 04/19/24 FH: Father dementia, mother Heart failure History: PERIOD OF SERVICE - [facility] FROM Jul TO Nov COMBAT SERVICE INDICATED: No SERVICE CONNECTED % - NONE FOUND RATED DISABILITIES - NONE FOUND Living arrangements: lives in single family home with , had home services Tobacco/alcohol: never smoker, no alcohol abuse history, no alcohol use currently Health care proxy form on file: Yes MOLST form on chart: Yes POLST ADLS: Needs assistance with ambulation, bathing, dressing, feeding, toileting, transferring, incontinence care Review of Systems: GENERAL: no fever, no unexplained weight loss or gain HEENT: denies vision changes, OP pain CV: denies CP, SOB, palpitations LUNG: denies SANTANA, cough, wheezing ABD: denies diarrhea, reflux, abdominal pain. + constipation see A and P : denies dysuria, hematuria, change in urinary flow EXTREMITIES: denies edema SKIN: denies rash or other lesions PSYCH: denies depression, SI NEURO: denies weakness, dizziness, BAILEY Falls in the last 3 months: Yes hip fracture right Infections in the last 3 months: Yes aspiration pneumonia Hospitalization: see above admission on 04/16 Vital Signs: Physical Exam: GENERAL: Pt is appropriately dressed/groomed, good eye contact. NAD, seated in recliner NEURO/PSYCH: aox3, flat affect, single word responses to questions HEENT: conj clear, MMM, Oropharynx clear SKIN: warm & dry, no rash COR: RRR, nl s1,2 no MRG LUNGS: Clear to auscultation bilaterally. ABD: NBS, soft, NT, ND, no masses or organomegaly appreciated, G tube present no signs of site infection EXTREMITIES: warm, no edema. /RECTAL: deferred. Lab/Imaging: all lab work reviewed from hospital and post hospital discharge. repeat labs in 4 weeks. Assessment/Plan: 1. Dysphagia - Modified barium swallow on 05/24 see results above - continue tube feeds, upcoming work order clerk appt next week - educated on used of feeding bag and valve. 2. History of right hip replacement - s/p fall with right hemiarthroplasty on 04/19, received PT/OT in rehab post discharge through [facility] - weight bear as tolerated, using walker 3. Subdural hematoma - 07/2021 followed by neurology no recurrence 4. Obstructive sleep apnea - has not been using the last few weeks, she will reintroduce nightly 5. Nephrolithiasis - multiple lithotripsies, recent retrograde pyelogram on 03/26/24 at [facility] follow up with nephrology on 07/27/24 pending urology appt for follow up 03/[address] Soares 6. Excessive salivation - continues glycopyrrolate PRN, on hold at this time 7. HTN - Hypertension - BP @ goal, on HCTZ for calicum in urine BP low at times, will continue to monitor 8. Constipation - bowel regimen effective continue MiraLAX, no longer taking docusate, removed from medication list. Last BM 4 days ago most likely related to tube feeds and reintroducing foods, Bisacodyl suppositories ordered and requested UPS 9. Long-term current use of anticoagulant - positive occult stool while admitted to [facility], declined colonoscopy, will repeat FIT and CBC with iron studies in 4 weeks. 10. Squamous cell and basal cell carcinoma of skin - no new lesions noted - followed by non-VA derm 11. Hypotension - midodrine PRN effective 12. Benign prostatic hyperplasia - current incontinence of urine 13. Hematuria - related to renal stones, not a current issue since stent removal on 03/26 pending urology follow up 14. Peripheral vascular disease - asymptomatic - no edema, no open lesions at this time - continue to monitor 15. Migraine - currently not an issue 16. Multiple renal cysts - ultrasound of kidney pending appt prior to nephrology appt on 07/27/24 17. History of deep vein thrombosis - developed right lower leg swelling and he had negative US duplex while inpatient, continue Apixaban 18. 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 Urinary incontinence - briefed during the day, does use urinal with improved cognition, [place] catheter at night. 20. Insomnia - PRN hydroxyzine, nightly melatonin helpful 21. Gastroesophageal reflux disease - stable on famotidine 22. AF- Atrial Fibrillation and Atrial flutter -anticoagulated on Apixaban, + occult stool will repeat FIT and CBC in one month 23. Parkinson's disease - continue with Sinemet and Sinemet CR with Azilect follow up with neurology today via video @ 1300 interested in Palliative care consult placed. 24. Elevated TSH - 4.66 during admission will repeat in 4 weeks free T 4 1.13 Free T3 328 within normal range 25. Thrombocytosis - last platelet count 623 on 05/09 trending down, requested peripheral smear results from [facility] showed normocystic anemia, will check repeat CBC, B12, folate, iron panel in 4 weeks. 26. Aspiration Pneumonia - resolved has complex care needs and will benefit from ongoing interdisciplinary [facility] management. Treatment plan included shared decision-making and is confirmed with /caregiver. All questions answered. Education provided regarding medication, including details regarding any changes. All questions answered. O2 safety addressed if applicable: Not applicable Life sustaining treatments/Goals of care conversation: LST/GOCC discussed today. see LST note Cognition: has diagnosis of dementia. Education on diagnosis and supportive care needs discussed with [place]/caregiver. Counseled on importance of physical activity, healthy diet, socialization and mentally-engaging activities to optimize cognitive functioning. Functional independence: ADL assistance is needed. [facility] team to work with /caregiver to maximize functional independence. This may include caregiver training, adaptive equipment, referral for personal care assistance. Next appointment: [facility] Provider visit every 6-12 months or as needed. Time in home: 90 Tobacco Use Screening: The patient has never smoked cigarettes. The patient has never used other types of tobacco. Medication Reconciliation: Outpatient: Has the patient been taking medications as documented in the EMLR? No: Discrepancies were identified. See below. Essential Medication List for Review used to complete this medication reconciliation. INCLUDED IN THIS LIST: Alphabetical list of active outpatient prescriptions dispensed from this [facility] (local) and dispensed from another [place] or [facility] facility (remote) as well as inpatient orders (local, pending and active), local clinic medications, locally documented non-VA medications, and local prescriptions that have or been discontinued in the past 90 days. - Discrepancies were identified, addressed, and discussed with the patient/caregiver at this encounter. Discrepancies: prn medications updated, midodrine hydroxyzine - All changes in medications, including all non-VA/Herbal/OTC medications were entered into CPRS. Changes: new rx for bisacodyl for constipation and paper tape for tube feeding connection - If there were any medications the patient should no longer take, they were discontinued. - The patient/caregiver was instructed to update this list, discard old lists, and take this list to the next appointment, whether with a VA or non-VA provider. Medication List: JLV Link Data on this list may not be complete. Please check JLV. Allergies/ADRs (Tool #5) FACILITY ALLERGY/ADR -------- CLNCL/HLTH HERBIE REPT EFF [id number] M[facility]TAZAPINE [facility] AMOXICILLIN [facility] CONTRAST MEDIA [facility] ERYTHROMYCIN [facility] FLECAINIDE [facility]OM[facility] LEV[facility]QU[facility] LIPITOR [facility] MIRTAZAPINE [facility] SEROQUEL Med. Reconciliation (Tool #1) INCLUDED IN THIS LIST: Alphabetical list of active outpatient prescriptions dispensed from this VA (local) and dispensed from another [place] or [facility] facility (remote) as well as inpatient orders (local pending and active), local clinic medications, locally documented non-VA medications, and local prescriptions that have or been discontinued in the past 90 days. Non-VA Meds Last Documented On: May 06, 2023 NOTE The display of VA prescriptions dispensed from another [place] or [facility] facility (remote) is limited to active outpatient prescription entries matched to National Drug File at the originating site and may not include some items such as investigational drugs, compounds, etc. NOT INCLUDED IN THIS LIST: Medications self-entered by the patient into personal health records (i.e. [employer]) are NOT included in this list. Non-VA medications documented outside this [place], remote inpatient orders (regardless of status) and remote clinic medications are NOT included in this list. The patient and provider must always discuss medications the patient is taking, regardless of where the medication was dispensed or obtained. OUTPT APIXABAN 5MG TAB (Status = Active) TAKE ONE TABLET BY MOUTH EVERY 12 HOURS FOR ATRIAL FIBRILLATION Rx# [id number] Last Released: 04/13/24 Qty/Days Supply: 180/ Rx Expiration Date: 12/28/24 Refills Remainin Indication: ATRIAL FIBRILLATION OUTPT ARTIFICIAL SALIVA ORAL SPRAY (Status = Active) SPRAY 2 SPRAYS BY MOUTH EVERY 2 HOURS NEEDED FOR DRY MOUTH (USE DIRECTED) Rx# [id number] Last Released: 02/09/24 Qty/Days Supply: / Rx Expiration Date: 12/28/24 Refills Remainin Indication: FOR DRY MOUTH OUTPT BISACODYL 10MG RTL SUPP (Status = Pending) INSERT 1 SUPPOSITORY(IES) RECTALLY ONCE DAILY NEEDED FOR BOWELS - LAXATIVE Login Date: 05/25/24 Qty/Days Supply: 06/18 Refills Ordered: 0 OUTPT CARBIDOPA 25/LEVODOPA 100MG SA TAB (Status = Active) TAKE 1 TABLET BY MOUTH FOUR TIMES A DAY Rx# [id number] Last Released: 04/03/24 Qty/Days Supply: 360/ Rx Expiration Date: 12/27/24 Refills Remainin OUTPT CARBIDOPA 25/LEVODOPA 100MG TAB (Status = Active) TAKE 1 TABLET BY MOUTH FOUR TIMES A DAY Rx# [id number] Last Released: 04/17/24 Qty/Days Supply: Rx Expiration Date: 12/27/24 Refills Remainin OUTPT CHLORHEXIDINE GLUCONATE 0.12% MOUTHWASH (Status = Discontinued) RINSE 15ML BY MOUTH ONCE DAILY FOR INFLAMMATION OF THE GUMS - SWISH AND SPIT. DO NOT SWALLOW Rx# [id number] Last Released: 09/29/23 Qty/Days Supply: 47330 Rx Expiration Date: 05/20/24 Refills Remainin Indication: FOR INFLAMMATION OF THE GUMS OUTPT CHLORHEXIDINE GLUCONATE 0.12% MOUTHWASH (Status = Active/Suspended) RINSE 15ML BY MOUTH ONCE DAILY FOR INFLAMMATION OF THE GUMS - SWISH AND SPIT. DO NOT SWALLOW Rx# [id number] Last Released: Qt/ Supply: Rx Expiration Date: 05/26/25 Refills Remainin Indication: FOR INFLAMMATION OF THE GUMS OUTPT CHOLECALCIF 25MCG (D3-1,000UNIT) TAB (Status = Active) TAKE ONE TABLET BY MOUTH ONCE DAILY FOR VITAMIN SUPPLEMENTATION Rx# [id number] Last Released: 04/13/24 Qty/Days Supply: Rx Expiration Date: 12/28/24 Refills Remainin Indication: FOR VITAMIN D DEFICIENCY OUTPT FAMOTIDINE 20MG TAB (Status = Active) TAKE ONE TABLET BY MOUTH ONCE DAILY FOR STOMACH ACID Rx# [id number] Last Released: 04/13/24 Qty/Days Supply: Rx Expiration Date: 12/28/24 Refills Remainin Indication: FOR HEARTBURN OUTPT GLYCOPYRROLATE 2MG TAB (Status = Discontinued) TAKE ONE TABLET BY MOUTH DIRECTED BY PROVIDER 2-3 TIMES PER DAY NEEDED FOR SECRETIONS Rx# [id number] Last Released: 04/09/24 Qty/Days Supply: Rx Expiration Date: 05/03/24 Refills Remainin OUTPT GLYCOPYRROLATE 2MG TAB (Status = Pending) TAKE ONE TABLET BY MOUTH DIRECTED BY PROVIDER 2-3 TIMES PER DAY NEEDED FOR SECRETIONS Renewed from Rx# [id number] Qty/Days Supply: Login Date: 05/25/24 Refills Ordered: 0 OUTPT HYDROCHLOROTHIAZIDE 25MG TAB (Status = Discontinued) TAKE ONE TABLET BY MOUTH ONCE DAILY FOR HIGH BLOOD PRESSURE Rx# [id number] Last Released: 04/13/24 Qty/Days Supply: Rx Expiration Date: 12/28/24 Refills Remainin Indication: FOR HIGH BLOOD PRESSURE OUTPT HYDROCHLOROTHIAZIDE 25MG TAB (Status = Pending) TAKE ONE TABLET BY MOUTH ONCE DAILY Login Date: 05/25/24 Qty/Days Supply: Refills Ordered: 3 OUTPT HYDROPHILIC (EQV EUCERIN) TOP CREAM (Status = Discontinued) APPLY A LIBERAL AMOUNT TOPICALLY ONCE DAILY FOR DRY SKIN Rx# [id number] Last Released: 08/03/23 Qty/Days Supply: Rx Expiration Date: 05/20/24 Refills Remainin Indication: FOR DRY SKIN OUTPT HYDROPHILIC (EQV EUCERIN) TOP CREAM (Status = Active/Suspended) APPLY A LIBERAL AMOUNT TOPICALLY ONCE DAILY FOR DRY SKIN Rx# [id number] Last Released: Qty/Days Supply: Rx Expiration Date: 05/26/25 Refills Remainin Indication: FOR DRY SKIN OUTPT HYDROXYZINE HCL 10MG TAB (Status = ) TAKE ONE TABLET BY MOUTH AT BEDTIME Rx# [id number] Last Released: 01/03/24 Qty/Days Supply: Rx Expiration Date: 03/26/24 Refills Remainin OUTPT HYDROXYZINE HCL 10MG TAB (Status = Discontinued) TAKE ONE TABLET BY MOUTH AT BEDTIME Rx# [id number] Last Released: 04/06/24 Qty/Days Supply: Rx Expiration Date: 07/02/24 Refills Remainin OUTPT HYDROXYZINE HCL 10MG TAB (Status = Pending) TAKE ONE TABLET BY MOUTH AT BEDTIME NEEDED has day supply please suspend Login Date: 05/25/24 Qty/Days Supply: Refills Ordered: 0 OUTPT MELATONIN 5MG CAP/TAB (Status = Active) TAKE THREE CAPSULE/TABLETS BY MOUTH AT BEDTIME FOR INSOMNIA Rx# [id number] Last Released: 04/06/24 Qty/Days Supply: /90 Rx Expiration Date: 10/26/24 Refills Remainin Indication: FOR INSOMNIA OUTPT MEMANTINE HCL 10MG TAB (Status = Discontinued) TAKE ONE TABLET BY MOUTH TWICE DAILY Rx# [id number] Last Released: 04/03/24 Qty/Days Supply: 180 Rx Expiration Date: 12/27/24 Refills Remainin OUTPT MEMANTINE HCL 10MG TAB (Status = Active/Suspended) TAKE ONE TABLET BY MOUTH TWICE DAILY Rx# [id number] Last Released: Supply: 180 Rx Expiration Date: 04/04/25 Refills Remainin OUTPT MIDODRINE HCL 5MG TAB (Status = Discontinued) TAKE ONE TABLET BY MOUTH THREE TIMES DAILY NEEDED FOR LOW BLOOD PRESSURE Rx# [id number] Last Released: 03/31/24 Qty/Days Supply: 90 Rx Expiration Date: 05/20/24 Refills Remainin Indication: FOR LOW BLOOD PRESSURE OUTPT MIDODRINE HCL 5MG TAB (Status = Active/Suspended) TAKE ONE TABLET BY MOUTH THREE TIMES DAILY NEEDED FOR LOW BLOOD PRESSURE Rx# [id number] Last Released: Supply: 90 Rx Expiration Date: 05/26/25 Refills Remainin Indication: FOR LOW BLOOD PRESSURE OUTPT MULTIVITAMIN/MINERALS CAP/TAB (Status = Discontinued) TAKE 1 TABLET BY MOUTH ONCE DAILY FOR VITAMIN SUPPLEMENTATION Rx# [id number] Last Released: 01/27/24 Qty/Days Supply: 100/ Rx Expiration Date: 12/28/24 Refills Remainin Indication: FOR VITAMIN SUPPLEMENTATION OUTPT MULTIVITAMIN/MINERALS LIQUID (Status = Active) TAKE 1 TABLESPOON (15ML) BY MOUTH ONCE DAILY FOR VITAMIN SUPPLEMENTATION Rx# [id number] Last Released: 04/03/24 Qty/Days Supply: 480/30 Rx Expiration Date: 03/31/25 Refills Remainin Indication: FOR VITAMIN SUPPLEMENTATION OUTPT NUTR SUPL OSMOLITE 1.2 WILLIAM LIQUID (Status = Active) USE 5 CANS VIA G-TUBE CONTINUOUSLY FOR NUTRITIONAL SUPPLEMENTATION AT 115ML PER HOUR OVERNIGHT AND FLUSH WITH 220ML WATER EVERY 8 HOURS DIRECTED Rx# [id number] Last Released: 05/23/24 Qty/Days Supply: 168/30 Rx Expiration Date: 05/19/25 Refills Remainin Indication: FOR NUTRITIONAL SUPPLEMENTATION OUTPT OATMEAL,COLLOIDAL CLEANSING BAR/DRY SKIN (Status = Active) DIRECTED TOPICALLY ONCE DAILY FOR SKIN IRRITATION Rx# [id number] Last Released: 10/13/23 Qty/Days Supply: Rx Expiration Date: 10/11/24 Refills Remainin Indication: FOR SKIN IRRITATION OUTPT POLYETHYLENE GLYCOL 3350 ORAL PWDR (Status = Discontinued) TAKE 17 GRAMS(FILL CAP TO 17GM LINE) BY MOUTH ONCE DAILY FOR CONSTIPATION [MIX WITH 4 TO 8OZ. OF BEVERAGE] Rx# [id number] Last Released: 08/05/23 Qty/Days Supply: Rx Expiration Date: 05/20/24 Refills Remainin Indication: FOR CONSTIPATION OUTPT POLYETHYLENE GLYCOL 3350 ORAL PWDR (Status = Active/Suspended) TAKE 17 GRAMS(FILL CAP TO 17GM LINE) BY MOUTH ONCE DAILY FOR CONSTIPATION [MIX WITH 4 TO 8OZ. OF BEVERAGE] Rx# [id number] Last Released: Qt Supply: Rx Expiration Date: 05/26/25 Refills Remainin Indication: FOR CONSTIPATION OUTPT RASAGILINE MESYLATE 1MG TAB (Status = Active) TAKE ONE TABLET BY MOUTH ONCE DAILY Rx# [id number] Last Released: 04/06/24 Qty/Days Supply: Rx Expiration Date: 12/27/24 Refills Remainin SUPPLIES OUTPT CATH,EXTERNAL EXTENDED WEAR SMALL H#9206 (Status = Discontinued) USE 1 CATHETER URETHRAL ONCE DAILY Rx# [id number] Last Released: 03/01/24 Qty/Days Supply: Rx Expiration Date: 03/01/25 Refills Remainin Indication: INCONTINENCE OUTPT CATH,EXTERNAL EXTENDED WEAR SMALL H#9206 (Status = Pending) USE 1 CATHETER URETHRAL ONCE DAILY Login Date: 05/25/24 Qty/Days Supply: 90/90 Refills Ordered: 3 OUTPT DEPEND UNDERWEAR,MAXIMUM,MEN LARGE (Status = Active) USE 1 BRIEF DIRECTED THREE TIMES A DAY INCONTINENCE Rx# [id number] Last Released: 03/29/24 Qty/Days Supply: 272/90 Rx Expiration Date: 03/30/25 Refills Remainin Indication: INCONTINENCE OUTPT DIAPER ADULT LARGE EXTRA ABSORBENT (Status = Active) USE 1 BRIEF DIRECTED THREE TIMES A DAY INCONTINENCE Rx# [id number] Last Released: 10/12/23 Qty/Days Supply: 240/90 Rx Expiration Date: 10/10/24 Refills Remainin Indication: INCONTINENCE OUTPT FEED BAG W/PUMP SET ENFIT COVID#[id number] (Status = Active) USE 1 BAG VIA G-TUBE ONCE DAILY NUTRITION Rx# [id number] Last Released: 05/21/24 Qty/Days Supply: Rx Expiration Date: 05/19/25 Refills Remainin Indication: NUTRITION OUTPT GAUZE PAD 4IN X 4IN NONSTERILE (Status = Discontinued) APPLY GAUZE(S) TOPICALLY ONCE DAILY Rx# [id number] Last Released: 05/21/24 Qty/Days Supply: 200/90 Rx Expiration Date: 05/19/25 Refills Remainin Indication: NUTRITION OUTPT INCONT LINER PREVAIL GUARDS #PV-811 (Status = Active) USE 1 LINER TOPICALLY TWO TIMES A DAY Rx# [id number] Last Released: 10/12/23 Qty/Days Supply: 126/60 Rx Expiration Date: 10/10/24 Refills Remainin Indication: INCONTINENCE OUTPT INCONT LINER,MENS X-HVY SURECARE #17641L (Status = Active) USE 1 LINER TOPICALLY AT BEDTIME Rx# [id number] Last Released: 02/01/24 Qty/Days Supply: 84/84 Rx Expiration Date: 10/10/24 Refills Remainin Indication: INCONTINENCE OUTPT INCONTINENCE WRAP,MALE (Status = Active) USE 1 INCONTINENCE WRAP TOPICALLY AT BEDTIME Rx# [id number] Last Released: 10/31/23 Qty/Days Supply: 100/90 Rx Expiration Date: 10/11/24 Refills Remainin Indication: INCONTINENCE OUTPT IRRIGATING SYRINGE CATHETER TIP 50-60ML (Status = Active) USE 1 SYRINGE NEEDED NUTRITION Rx# [id number] Last Released: 05/21/24 Qty/Days Supply: Rx Expiration Date: 05/19/25 Refills Remainin Indication: NUTRITION OUTPT ORAL,SWAB TOOTHETTE (Status = ) USE 1 MOUTH SWAB DIRECTED ONCE DAILY TO USE WITH CHLOREHEXADINE ORAL RINSE Rx# [id number] Last Released: 08/05/23 Qty/Days Supply: 250 Rx Expiration Date: 05/20/24 Refills Remainin OUTPT ORAL,SWAB TOOTHETTE (Status = Pending) USE 1 MOUTH SWAB DIRECTED ONCE DAILY TO USE WITH CHLOREHEXADINE ORAL RINSE Renewed from Rx# [id number] Qty/Days Supply: Login Date: 05/25/24 Refills Ordered: 3 OUTPT TAPE,MICROPORE 2IN #1530-2 (Status = Pending) USE 1 PIECE TOPICALLY ONCE DAILY NEEDED Login Date: 05/25/24 Qty/Days Supply: Refills Ordered: 0 OUTPT UNDERPAD,BED ULTRASORB [id number] M#3136 (Status = Active) USE 2 UNDERPADS TOPICALLY AT BEDTIME Rx# [id number] Last Released: 10/12/23 Qty/Days Supply: 200 Rx Expiration Date: 10/10/24 Refills Remainin Indication: INCONTINENCE OUTPT URINARY DRAINAGE BAG BARD #393824 (Status = Active) USE 1 URINARY DRAINAGE BAG EVERY 7 DAYS Rx# [id number] Last Released: 03/02/24 Qty/Days Supply: 10/15 Rx Expiration Date: 03/01/25 Refills Remainin Indication: INCONTINENCE OUTPT VALVE,ARCHANA ENTERAL,ICU MEDICAL #9000 (Status = Active) USE 1 VALVE ONCE DAILY NUTRITION Rx# [id number] Last Released: 05/22/24 Qty/Days Supply: 10/22 Rx Expiration Date: 05/19/25 Refills Remainin Indication: NUTRITION PHARMACY TERMS AND POSSIBLE PATIENT ACTIONS INPT = [place] inpatient order IV = [facility] intravenous medication OUTPT = [place] outpatient prescription PHARMACY POSSIBLE PATIENT TERMS EXPLANATION ACTIONS -------- -- ACTIVE A prescription that can be If you have refills, filled at the local VA pharmacy. you may request a refill of this prescription from your VA pharmacy. CLINIC A medication you received during If you have questions a visit to a VA clinic or about this medication emergency department. contact your VA healthcare team. DISCONTINUED A prescription your provider has Contact your VA stopped. It is no longer healthcare team if you available to be sent to you or need more of this picked up at the [place] pharmacy medication. window. A prescription which is too old Contact your VA to fill. This does not refer to healthcare team if you the expiration date of the need more of this medication in the container. medication. NON-VA A medication that came from If this medication someplace other than a VA information is pharmacy. This may be a incorrect or out of prescription from either the VA date, please tell your or non-VA providers that was VA healthcare team. filled outside the VA. Or, it may be an [id number] (OTC), herbal, dietary supplements or sample medication. ON HOLD An active prescription that will Contact your VA not be filled until pharmacy pharmacy when you need resolves the issue. more of this medication. PARKED An active prescription that will Contact your VA not be filled until the patient pharmacy when you need requests it. this medication. PENDING This prescription order has been If you have been sent to the pharmacy for review instructed to start and is not ready yet. this medication now, contact your VA pharmacy. SUSPENDED An active prescription that is Contact your VA not scheduled to be filled yet. pharmacy if you need You should receive it before this medication now. you run out. ====== Alcohol Use Screen (AUDIT-C): Alcohol Screen: SCREEN FOR ALCOHOL (AUDIT-C) An alcohol screening test (AUDIT-C) was negative (score=0). 1. How often did you have a drink containing alcohol in the past year? Consider a drink to be a 12 ounce can or bottle of regular beer, 8 ounces of malt liquor, a 5 ounce glass of table wine, or a 1.5 ounce shot of liquor (like scotch, gin, or vodka). Never 2. How many drinks containing alcohol did you have on a typical day when you were drinking in the past year? Response not required due to responses to other questions. 3. How often did you have six or more drinks on one occasion in the past year? Response not required due to responses to other questions. Suicide Screen: C-SSRS Screening [place] Suicide Severity Rating Scale (C-SSRS) screener 1. Over the past month, have you wished you were or wished you could go to sleep and not wake up? No 2. Over the past month, have you had any actual thoughts of killing yourself? No 3. Over the past month, have you been thinking about how you might do this? Response not required due to responses to other questions. 4. Over the past month, have you had these thoughts and had some intention of acting on them? Response not required due to responses to other questions. 5. Over the past month, have you started to work out or worked out the details of how to kill yourself? Response not required due to responses to other questions. 6. If yes, at any time in the past month did you intend to carry out this plan? Response not required due to responses to other questions. 7. In your lifetime, have you ever done anything, started to do anything, or prepared to do anything to end your life (for example, collected pills, obtained a gun, gave away valuables, went to the roof but didn't jump)? No 8. If YES, was this within the past 3 months? Response not required due to responses to other questions. /sharron/ LUIS FERNANDO FONTANEZ PORTABLE IRRIGATION OPERATOR-C [facility] NURSE PRACTITIONER Signed: 05/25/2024 14:24 Receipt Acknowledged By: 05/25/2024 17:34 /sharron/ JENNIFER SEGURA AIR/OCEAN EXPORT CLERK HB MANAGER ANDROID 05/25/2024 ADDENDUM STATUS: COMPLETED B/P: 106/62 (05/25/2024 11:00) Pulse: 54 (05/25/2024 11:00) Temperature: 97.1 F [36.2 C] (05/25/2024 11:00) Weight: 173.6 lb [78.74 kg] (05/23/2024 12:00) Height: 65 in [165.1 cm] (04/26/2023 11:00) BMI: BMI: 28.9 Pain: 0 (05/25/2024 11:00) (0-10 scale) Pulse Ox:Measurement DT POx (L/MIN)(%) 05/25/2024 11:00 99 /sharron/ LUIS FERNANDO FONTANEZ PORTABLE IRRIGATION OPERATOR-C [facility] NURSE PRACTITIONER Signed: 05/25/2024 14:24 05/25/2024 ADDENDUM STATUS: COMPLETED Voice mail left for spouse with information on [employer] Van that they can use to take Shallowater to medical appointments since it's becoming more difficult to get him out of the house. Upcoming appointments are non-[facility]. Contact info left for her to call this service writer advisor with any questions. /sharron/ CEE REYES VICE PRESIDENT COMPLIANCE [facility] Wood Floor Refinisher Signed: 05/25/2024 16:05 LUIS FERNANDO FONTANEZ [place] [facility] [place] [facility] May 25, 2024 07:46 AM [facility] ATTENDING NOTE: LOCAL TITLE: [facility] PROVIDER ASSESSMENT STANDARD TITLE: [facility] ATTENDING NOTE DATE OF NOTE: MAY 25, 2024@07:46 ENTRY DATE: MAY 25, 2024@07:46:06 AUTHOR: LUIS FERNANDO FONTANEZ EXP COSIGNER: URGENCY: STATUS: COMPLETED [facility] PROVIDER ASSESSMENT Has ADDENDA [facility] Provider Assessment Visit 73 year old MALE seen in home today for annual visit due in Apr however he was hospitalized s/p fall. Also present for visit: Chief complaint/History of present illness: Mr. Olivia is a 73 y/o male with a history of Parkinson's disease, ZAC, nephrolithiasis, HTN, Constipation, Afib anticoagulated, BPH, hematuria, SCC and BCC, dysphagia, intermittent hypotension, Migraine, subdural hematoma 2021, PVD, GERD, sundowning, VT, Insomnia, dementia with recent fall on 04/16 resulting in right hip fracture and hospitalization with rehab stay. Due to history of DVT and right lower leg swelling post hip replacement US was done but showed no acute findings. 04/16 attempted to walk on his own fell on his right side and suffered a closed right hip fracture and subsequently underwent a right hip hemiarthroplasty on 04/19/[address] Benjamin. He did hit his head when he fell CT of head did not show acute intracranial findings and no cervical fracture or malalignment. Repeat head CT on 05/02/2024 showed no acute intracranial findings. Chest x-ray was performed on 04/20/2024 that showed right lower lobe patchy infiltrate, patient was started on ceftriaxone and doxycycline and completed a 5-day antibiotic treatment, he required DuoNebs and Mucinex, on 05/02 he had fine crackles and increased work of breathing and empirically was started on Rocephin for 5 days with improvement on day 3. Repeat chest x-ray 05/03/2024 impression: Left costophrenic angle blunting, no enlarging effusion. No edema It was noted that he had thrombocytosis most likely caused by recent trauma peripheral smear was done: Thrombocytosis with rare clumps of platelets. No giant or atypical platelets are present, Mild normocytic anemia. [facility] stay was complicated by dysphagia on 05/01/2024 he underwent an 18 Slovak gastrostomy placement with fluoroscopic guidance under conscious sedation. reports Post op he was without his Sinemet immediate and extended release became unconscious but after he was restarted on Sinemet and his LOC improved. CT head done at this time. Shallowater discharged from [facility] and transferred to [facility] for rehab. discharged home from rehab on 05/21 with continued g-tube feedings. Shallowater had modified barium swallow on 05/24/24 reports very difficult to get in and out of vehicle requesting transportation Van to take him to future appointments. Post op he was without his Sinemet immediate and extended release became unconscious but after he was restarted on Sinemet and his LOC improved. CT head done at this time. states she filled out a POLST form while in the hospital and now Shallowater is DNR. Discussed palliative care vs. hospice and she states she would like to a palliative care consult she does not feel he is ready for hospice. TESTING RESULTS: Labs 05/04/2024 WBC 8.3 RBC 3.65 hemoglobin 10.6 hematocrit 32.8 platelets 671 MCV 89.9 MCH 29.0 MCHC 32.3 RDW 13.5 MPV 8.5 sodium 139 chloride 102 potassium 4.3 CO2 29 BUN 22 creatinine 0.80 glucose 139 calcium 9.2 GFR 93 anion gap 12 magnesium 2.0 phosphorus 3.1 04/21 Immuno fecal occult Positive 04/26/2024 2:[address] ABDOMEN WITHOUT CONTRAST Referring clinician's provided indication for this examination in [facility]: aspiration pneumonia. G tube requested. ? clear path into stomach percutaneously TECHNIQUE: Multidetector-row CT of the abdomen was performed without intravenous contrast using tailored dose modulation techniques. Images were reconstructed in the axial, coronal, and sagittal planes. COMPARISON: CT ABDOMEN/PELVIS WITHOUT CONTRAST ; CT ABDOMEN/PELVIS WITHOUT CONTRAST ; CT ABDOMEN/PELVIS WITHOUT CONTRAST ABSENCE OF INTRAVENOUS CONTRAST DECREASES SENSITIVITY FOR DETECTION OF FOCAL LESIONS AND VASCULAR PATHOLOGY. FINDINGS: Lower Chest: New small bilateral pleural effusions. Bibasilar atelectasis. At least moderate coronary artery calcifications. Liver: Stable right lobe hepatic hypodensity, likely a cyst. No solid mass. Biliary: Normal gallbladder. No biliary ductal dilatation. Spleen: No splenomegaly or focal lesions. Pancreas: No masses or ductal dilatation. Adrenal Glands: No nodules. Kidneys/Ureters: Nonobstructing left renal calculi measuring up to 8 mm. Small right lower pole cyst. No hydronephrosis. Bowel: Nasogastric tube in place with distal tip in the body the stomach. Decompressed large and small bowel. Scattered colonic diverticulosis. Peritoneum/Retroperitoneum: No masses, pneumoperitoneum, or fluid. Lymph Nodes: No lymphadenopathy. Vessels: No abdominal aortic aneurysm. Mild atherosclerosis. Circumaortic left renal vein. Bones/Soft Tissues: Osseous demineralization. Degenerative changes of the spine. No suspicious lytic or blastic lesions. 04/23/2024 12:17 PM EST US LOWER EXTREMITY VEINS DUPLEX (RIGHT) Referring clinician's provided indication for this examination in [facility]: Edema; Right Leg Pain; Swelling of Limb; recent hip surgery TECHNIQUE: Lower extremity venous ultrasound with color and spectral Doppler. COMPARISON: None FINDINGS: Exam Quality: Technically adequate exam demonstrates: Right lower extremity Common femoral vein: Normal compressibility and flow characteristics. Femoral vein: Normal compressibility and flow characteristics. Proximal profunda femoral vein: Normal compressibility. Popliteal vein: Normal compressibility and flow characteristics. Posterior tibial veins: Normal compressibility. Peroneal veins: Normal compressibility. Great saphenous vein: Normal compressibility at the saphenofemoral junction. Contralateral common femoral vein: Not visualized TTE complete 05/02/2024 Normal LV size and function EF 65 to 70%. No real significant valvular heart disease is seen. Trace mitral regurgitation. Indeterminate diastolic function. E/E prime ratio is borderline high. Normal RV size and function. Could not really get a very accurate PA pressure estimation due to lack of TR jet. The 1 tracing they had suggested it was mildly high but I am not sure this is accurate. Left Ventricle The left ventricle is normal in size. There is normal wall thickness. There is normal left ventricular systolic function. The LV ejection fraction is 70% (calculated via biplane measurement). There are no wall motion abnormalities. There is abnormal diastolic function. Doppler profiles appear consistent with pseudonormal left ventricular filling. The E/A ratio is 2.7. The e' septal wave velocity is 7.8 cm/s. The e' lateral wave velocity is 14.3 cm/s. The average E/e' ratio is 11.9. Right Ventricle The right ventricle is normal in size. The RV basal dimension is 39 mm. There is normal right ventricular systolic function. TAPSE is 23 mm. RV S' wave is 14.3 cm/s. Left Atrium The left atrium is normal in size. The left atrial volume is 40 mL. There are normal flow patterns in the pulmonary vein. Right Atrium The right atrium is normal in size. The right atrial area is 14 cm2. The IVC is normal in size with normal inspiratory collapse. This is consistent with normal RA pressure. The IVC diameter is 15 mm (normal = 21 mm). Hepatic veins are normal in size. Mitral Valve The mitral valve appears normal. There is no mitral stenosis. There is mild mitral regurgitation. Tricuspid Valve The tricuspid valve appears normal. There is no tricuspid stenosis. There is trace to mild tricuspid regurgitation. The RV systolic pressure was calculated at 37 mmHg (using TR peak velocity of 2.9 m/s and assuming an RA pressure of 3 mmHg). Pulmonary pressures are mildly elevated. Aortic Valve The aortic valve is tricuspid. There is calcification of multiple leaflets. The peak and mean aortic valve gradients are 11 mmHg and 6 mmHg respectively. There is no aortic regurgitation. The visualized portions of the thoracic aorta appear normal in size. Pulmonic Valve The pulmonic valve appears normal. Pericardium There is no pericardial effusion. There are no pleural effusions. General Findings The image quality was good (2). Technique(s) used in the evaluation: Color flow Doppler and Spectral Doppler. The predominant rhythm during the study was sinus. Comparison Findings There are no prior studies for comparison. IAS/IVS The interatrial septum appears normal. There is no evidence of patent foramen ovale (PFO). The interventricular septum appears normal. There is no evidence of a ventricular septal defect. Modified Barium Swallow 05/24/24 @ [facility] Impression: Subglottic aspiration with thin barium consistency. Laryngeal penetration with the Vallecular residuals of the nectar consistency. is followed by multiple community providers NON [place] Neurology: Dr. Godfrey Doan Hsp 2017 [facility] 07/19/23 Dr. Barrera NON [place] PCP: Dr. Bernadine Beyer appt today at 3pm video appt NON [place] Impregnation Operator Dr. Emil Davis upcoming appt 07/27/[address] [place] [address] Soares - pending follow up to be scheduled NON [place] Cardiology: Dr. Man Social Work Associate [facility] cardiology 12/13/[address] NON [place] Orthopedist: MIRELA Santana [facility] Gastroenterology: retired Dr. Jeremiah Hansen [facility]- Dr. Svitlana Hand Drug allergies: LIPITOR, AMOXICILLIN, ERYTHROMYCIN, FLOMAX, SEROQUEL, LEVAQUIN, CONTRAST MEDIA MIRTAZAPINE Medication list reviewed and reconciled with pt. Active and Recently Outpatient Medications (including Supplies): Active Outpatient Medications Status 1) APIXABAN 5MG TAB TAKE ONE TABLET BY MOUTH EVERY 12 HOURS FOR ACTIVE Indication: ATRIAL FIBRILLATION 2) ARTIFICIAL SALIVA ORAL SPRAY SPRAY 2 SPRAYS BY MOUTH EVERY 2 ACTIVE HOURS NEEDED (USE DIRECTED) Indication: FOR DRY MOUTH 3) CARBIDOPA 25/LEVODOPA 100MG SA TAB TAKE 1 TABLET BY MOUTH ACTIVE FOUR TIMES A DAY 4) CARBIDOPA 25/LEVODOPA 100MG TAB TAKE 1 TABLET BY MOUTH FOUR ACTIVE TIMES A DAY 5) CATH,EXTERNAL EXTENDED WEAR SMALL H#2447 USE 1 CATHETER ACTIVE URETHRAL ONCE DAILY Indication: INCONTINENCE 6) CHLORHEXIDINE GLUCONATE 0.12% MOUTHWASH RINSE 15ML BY MOUTH ACTIVE (S) ONCE DAILY - SWISH AND SPIT. DO NOT SWALLOW Indication: FOR INFLAMMATION OF THE GUMS 7) CHOLECALCIF 25MCG (D3-1,000UNIT) TAB TAKE ONE TABLET BY ACTIVE MOUTH ONCE DAILY FOR VITAMIN SUPPLEMENTATION Indication: FOR VITAMIN D DEFICIENCY 8) DEPEND UNDERWEAR,MAXIMUM,MEN LARGE USE 1 BRIEF DIRECTED ACTIVE THREE TIMES A DAY Indication: INCONTINENCE 9) DIAPER ADULT LARGE EXTRA ABSORBENT USE 1 BRIEF DIRECTED ACTIVE THREE TIMES A DAY Indication: INCONTINENCE 10) FAMOTIDINE 20MG TAB TAKE ONE TABLET BY MOUTH ONCE DAILY FOR ACTIVE STOMACH ACID Indication: FOR HEARTBURN 11) FEED BAG W/PUMP SET ENFIT COVID#[id number] USE 1 BAG VIA G-TUBE ACTIVE ONCE DAILY Indication: NUTRITION 12) HYDROPHILIC (EQV EUCERIN) TOP CREAM APPLY A LIBERAL AMOUNT ACTIVE (S) TOPICALLY ONCE DAILY Indication: FOR DRY SKIN 13) INCONT LINER PREVAIL GUARDS #[id number] USE 1 LINER TOPICALLY ACTIVE TWO TIMES A DAY Indication: INCONTINENCE 14) INCONT LINER,MENS X-HVY SURECARE #[id number] USE 1 LINER ACTIVE TOPICALLY AT BEDTIME Indication: INCONTINENCE 15) WRAP,MALE USE 1 WRAP TOPICALLY AT BEDTIME ACTIVE Indication: INCONTINENCE 16) IRRIGATING SYRINGE CATHETER TIP 50-60ML USE 1 SYRINGE ACTIVE NEEDED Indication: NUTRITION 17) MELATONIN 5MG CAP/TAB TAKE THREE CAPSULE/TABLETS BY MOUTH AT ACTIVE BEDTIME Indication: FOR INSOMNIA 18) MEMANTINE HCL 10MG TAB TAKE ONE TABLET BY MOUTH TWICE DAILY ACTIVE (S) 19) MIDODRINE HCL 5MG TAB TAKE ONE TABLET BY MOUTH THREE TIMES ACTIVE (S) DAILY NEEDED Indication: FOR LOW BLOOD PRESSURE 20) MULTIVITAMIN/MINERALS LIQUID TAKE 1 TABLESPOON (15ML) BY ACTIVE MOUTH ONCE DAILY Indication: FOR VITAMIN SUPPLEMENTATION 21) NUTR SUPL OSMOLITE 1.2 WILLIAM LIQUID USE 5 CANS VIA G-TUBE ACTIVE CONTINUOUSLY AT 115ML PER HOUR OVERNIGHT AND FLUSH WITH 220ML WATER EVERY 8 HOURS DIRECTED Indication: FOR NUTRITIONAL SUPPLEMENTATION 22) OATMEAL,COLLOIDAL CLEANSING BAR/DRY SKIN DIRECTED ACTIVE TOPICALLY ONCE DAILY Indication: FOR SKIN IRRITATION 23) POLYETHYLENE GLYCOL 3350 ORAL PWDR TAKE 17 GRAMS(FILL CAP TO ACTIVE (S) 17GM LINE) BY MOUTH ONCE DAILY [MIX WITH 4 TO 8OZ. OF BEVERAGE] Indication: FOR CONSTIPATION 24) RASAGILINE MESYLATE 1MG TAB TAKE ONE TABLET BY MOUTH ONCE ACTIVE DAILY 25) UNDERPAD,BED ULTRASORB 72C15QT M#3136 USE 2 UNDERPADS ACTIVE TOPICALLY AT BEDTIME Indication: INCONTINENCE 26) URINARY DRAINAGE BAG BARD #300707 USE 1 URINARY DRAINAGE BAG ACTIVE EVERY 7 DAYS Indication: INCONTINENCE 27) VALVE,ARCHANA ENTERAL,ICU MEDICAL #9000 USE 1 VALVE ONCE DAILY ACTIVE Indication: NUTRITION Pending Outpatient Medications Status 1) BISACODYL 10MG RTL SUPP INSERT 1 SUPPOSITORY(IES) RECTALLY PENDING ONCE DAILY NEEDED FOR BOWELS - LAXATIVE Indication: FOR CONSTIPATION 2) GLYCOPYRROLATE 2MG TAB TAKE ONE TABLET BY MOUTH DIRECTED PENDING BY PROVIDER 2-3 TIMES PER DAY NEEDED FOR SECRETIONS 3) HYDROCHLOROTHIAZIDE 25MG TAB TAKE ONE TABLET BY MOUTH ONCE PENDING DAILY Indication: FOR CALCIUM IN URINE 4) HYDROXYZINE HCL 10MG TAB TAKE ONE TABLET BY MOUTH AT BEDTIME PENDING NEEDED Indication: INSOMNIA 5) ORAL,SWAB TOOTHETTE USE 1 MOUTH SWAB DIRECTED ONCE DAILY PENDING TO USE WITH CHLOREHEXADINE ORAL RINSE 6) TAPE,MICROPORE 2IN 3M #1530-2 USE 1 PIECE TOPICALLY ONCE PENDING DAILY NEEDED Indication: FOR TUBE FEED CONNECTION Inactive Outpatient Medications Status 1) ORAL,SWAB TOOTHETTE USE 1 MOUTH SWAB DIRECTED ONCE DAILY TO USE WITH CHLOREHEXADINE ORAL RINSE 34 Total Medications PM/SH:Problem list reviewed. Active problems - Computerized Problem List is the source for the followin. Obstructive sleep apnea 2. Nephrolithiasis CT scan at [facility] 12[place], multiple stones, no hydronephrosis 3. Excessive salivation 4. HTN - Hypertension ([facility] [id number]) 5. Constipation 6. Under care of multiple providers Dr. Shirin Pérez [facility] PCP Neurologist : Dr. Dino Doan [facility] Orthopedist: MIRELA Monahan [place] [employer] Teacher: Dr. Ha Man 7. Exposure to potentially [...] Gastroesophageal reflux disease 31. AF- Atrial Fibrillation ([facility] [id number]) followed by [facility] Cardiology 32. Parkinson's disease followed by [facility] Dr. Fabby Sun Normal Swallow Evaluation 02/2024 33. Kidney Stone ([facility] [id number]) RATED DISABILITIES - NONE FOUND SERVICE CONNECTED % - NONE FOUND PFSH:Cardiac elctrophysiology study with ablation X 2, colonoscopy, laser lithotripsy cystoscopy uretoscopy retrograde stent placement bilateral X 3, nasal septum surgery, Dupuytren's contracture both hands, right hip hemiarthroplasty 04/19/24 FH: Father dementia, mother Heart failure History: PERIOD OF SERVICE - [employer] FROM Jul TO Nov COMBAT SERVICE INDICATED: No SERVICE CONNECTED % - NONE FOUND RATED DISABILITIES - NONE FOUND Living arrangements: lives in single family home with , had home services Tobacco/alcohol: never smoker, no alcohol abuse history, no alcohol use currently Health care proxy form on file: Yes MOLST form on chart: Yes POLST ADLS: Needs assistance with ambulation, bathing, dressing, feeding, toileting, transferring, incontinence care Review of Systems: GENERAL: no fever, no unexplained weight loss or gain HEENT: denies vision changes, OP pain CV: denies CP, SOB, palpitations LUNG: denies SANTANA, cough, wheezing ABD: denies diarrhea, reflux, abdominal pain. + constipation see A and P : denies dysuria, hematuria, change in urinary flow EXTREMITIES: denies edema SKIN: denies rash or other lesions PSYCH: denies depression, SI NEURO: denies weakness, dizziness, BAILEY Falls in the last 3 months: Yes hip fracture right Infections in the last 3 months: Yes aspiration pneumonia Hospitalization: see above admission on 04/16 Vital Signs: Physical Exam: GENERAL: Pt is appropriately dressed/groomed, good eye contact. NAD, seated in recliner NEURO/PSYCH: aox3, flat affect, single word responses to questions HEENT: conj clear, MMM, Oropharynx clear SKIN: warm & dry, no rash COR: RRR, nl s1,2 no MRG LUNGS: Clear to auscultation bilaterally. ABD: NBS, soft, NT, ND, no masses or organomegaly appreciated, G tube present no signs of site infection EXTREMITIES: warm, no edema. /RECTAL: deferred. Lab/Imaging: all lab work reviewed from hospital and post hospital discharge. repeat labs in 4 weeks. Assessment/Plan: 1. Dysphagia - Modified barium swallow on 05/24 see results above - continue tube feeds, upcoming work order clerk appt next week - educated on used of feeding bag and valve. 2. History of right hip replacement - s/p fall with right hemiarthroplasty on 04/19, received PT/OT in rehab post discharge through [facility] - weight bear as tolerated, using walker 3. Subdural hematoma - 07/2021 followed by neurology no recurrence 4. Obstructive sleep apnea - has not been using the last few weeks, she will reintroduce nightly 5. Nephrolithiasis - multiple lithotripsies, recent retrograde pyelogram on 03/26/24 at [facility] follow up with nephrology on 07/27/24 pending urology appt for follow up 03/[address] Soares 6. Excessive salivation - continues glycopyrrolate PRN, on hold at this time 7. HTN - Hypertension - BP @ goal, on HCTZ for calicum in urine BP low at times, will continue to monitor 8. Constipation - bowel regimen effective continue MiraLAX, no longer taking docusate, removed from medication list. Last BM 4 days ago most likely related to tube feeds and reintroducing foods, Bisacodyl suppositories ordered and requested UPS 9. Long-term current use of anticoagulant - positive occult stool while admitted to [facility], declined colonoscopy, will repeat FIT and CBC with iron studies in 4 weeks. 10. Squamous cell and basal cell carcinoma of skin - no new lesions noted - followed by non-[facility] derm 11. Hypotension - midodrine PRN effective 12. Benign prostatic hyperplasia - current incontinence of urine 13. Hematuria - related to renal stones, not a current issue since stent removal on 03/26 pending urology follow up 14. Peripheral vascular disease - asymptomatic - no edema, no open lesions at this time - continue to monitor 15. Migraine - currently not an issue 16. Multiple renal cysts - ultrasound of kidney pending appt prior to nephrology appt on 07/27/24 17. History of deep vein thrombosis - developed right lower leg swelling and he had negative US duplex while inpatient, continue Apixaban 18. 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 Urinary incontinence - briefed during the day, does use urinal with improved cognition, [place] catheter at night. 20. Insomnia - PRN hydroxyzine, nightly melatonin helpful 21. Gastroesophageal reflux disease - stable on famotidine 22. AF- Atrial Fibrillation and Atrial flutter -anticoagulated on Apixaban, + occult stool will repeat FIT and CBC in one month 23. Parkinson's disease - continue with Sinemet and Sinemet CR with Azilect follow up with neurology today via video @ 1300 interested in Palliative care consult placed. 24. Elevated TSH - 4.66 during admission will repeat in 4 weeks free T 4 1.13 Free T3 328 within normal range 25. Thrombocytosis - last platelet count 623 on 05/09 trending down, requested peripheral smear results from [facility] showed normocystic anemia, will check repeat CBC, B12, folate, iron panel in 4 weeks. 26. Aspiration Pneumonia - resolved Shallowater has complex care needs and will benefit from ongoing interdisciplinary HBPC management. Treatment plan included shared decision-making and is confirmed with Shallowater/caregiver. All questions answered. Education provided regarding medication, including details regarding any changes. All questions answered. O2 safety addressed if applicable: Not applicable Life sustaining treatments/Goals of care conversation: LST/GOCC discussed today. see LST note Cognition: has diagnosis of dementia. Education on diagnosis and supportive care needs discussed with Shallowater/caregiver. Counseled on importance of physical activity, healthy diet, socialization and mentally-engaging activities to optimize cognitive functioning. Functional independence: ADL assistance is needed. HBPC team to work with /caregiver to maximize functional independence. This may include caregiver training, adaptive equipment, referral for personal care assistance. Next appointment: HB[facility] Provider visit every 6-12 months or as needed. Time in home: 90 Tobacco Use Screening: The patient has never smoked cigarettes. The patient has never used other types of tobacco. Medication Reconciliation: Outpatient: Has the patient been taking medications as documented in the EMLR? No: Discrepancies were identified. See below. Essential Medication List for Review used to complete this medication reconciliation. INCLUDED IN THIS LIST: Alphabetical list of active outpatient prescriptions dispensed from this [facility] (local) and dispensed from another VA or DoD facility (remote) as well as inpatient orders (local, pending and active), local clinic medications, locally documented non-VA medications, and local prescriptions that have or been discontinued in the past 90 days. - Discrepancies were identified, addressed, and discussed with the patient/caregiver at this encounter. Discrepancies: prn medications updated, midodrine hydroxyzine - All changes in medications, including all non-VA/Herbal/OTC medications were entered into CPRS. Changes: new rx for bisacodyl for constipation and paper tape for tube feeding connection - If there were any medications the patient should no longer take, they were discontinued. - The patient/caregiver was instructed to update this list, discard old lists, and take this list to the next appointment, whether with a VA or non-VA provider. Medication List: JLV Link Data on this list may not be complete. Please check JLV. Allergies/ADRs (Tool #5) FACILITY ALLERGY/ADR -------- CLNCL/HLTH HERBIE REPT EFF [id number] MIRTAZAPINE [facility] AMOXICILLIN [facility] CONTRAST MEDIA [facility] ERYTHROMYCIN [facility] FLECAINIDE [facility]EV[facility] LIPITOR [facility] MIRTAZAPINE [facility] SEROQUEL Med. Reconciliation (Tool #1) INCLUDED IN THIS LIST: Alphabetical list of active outpatient prescriptions dispensed from this VA (local) and dispensed from another [place] or [facility] facility (remote) as well as inpatient orders (local pending and active), local clinic medications, locally documented non-VA medications, and local prescriptions that have or been discontinued in the past 90 days. Non-VA Meds Last Documented On: May 06, 2023 NOTE The display of VA prescriptions dispensed from another [place] or [facility] facility (remote) is limited to active outpatient prescription entries matched to National Drug File at the originating site and may not include some items such as investigational drugs, compounds, etc. NOT INCLUDED IN THIS LIST: Medications self-entered by the patient into personal health records (i.e. [employer]) are NOT included in this list. Non-VA medications documented outside this [place], remote inpatient orders (regardless of status) and remote clinic medications are NOT included in this list. The patient and provider must always discuss medications the patient is taking, regardless of where the medication was dispensed or obtained. OUTPT APIXABAN 5MG TAB (Status = Active) TAKE ONE TABLET BY MOUTH EVERY 12 HOURS FOR ATRIAL FIBRILLATION Rx# [id number] Last Released: 04/13/24 Qty/Days Supply: 180/ Rx Expiration Date: 12/28/24 Refills Remainin Indication: ATRIAL FIBRILLATION OUTPT ARTIFICIAL SALIVA ORAL SPRAY (Status = Active) SPRAY 2 SPRAYS BY MOUTH EVERY 2 HOURS NEEDED FOR DRY MOUTH (USE DIRECTED) Rx# [id number] Last Released: 02/09/24 Qty/Days Supply: 720/90 Rx Expiration Date: 12/28/24 Refills Remainin Indication: FOR DRY MOUTH OUTPT BISACODYL 10MG RTL SUPP (Status = Pending) INSERT 1 SUPPOSITORY(IES) RECTALLY ONCE DAILY NEEDED FOR BOWELS - LAXATIVE Login Date: 05/25/24 Qty/Days Supply: 06/18 Refills Ordered: 0 OUTPT CARBIDOPA 25/LEVODOPA 100MG SA TAB (Status = Active) TAKE 1 TABLET BY MOUTH FOUR TIMES A DAY Rx# [id number] Last Released: 04/03/24 Qty/Days Supply: 360/ Rx Expiration Date: 12/27/24 Refills Remainin OUTPT CARBIDOPA 25/LEVODOPA 100MG TAB (Status = Active) TAKE 1 TABLET BY MOUTH FOUR TIMES A DAY Rx# [id number] Last Released: 04/17/24 Qty/Days Supply: 360 Rx Expiration Date: 12/27/24 Refills Remainin OUTPT CHLORHEXIDINE GLUCONATE 0.12% MOUTHWASH (Status = Discontinued) RINSE 15ML BY MOUTH ONCE DAILY FOR INFLAMMATION OF THE GUMS - SWISH AND SPIT. DO NOT SWALLOW Rx# [id number] Last Released: 09/29/23 Qty/Days Supply: Rx Expiration Date: 05/20/24 Refills Remainin Indication: FOR INFLAMMATION OF THE GUMS OUTPT CHLORHEXIDINE GLUCONATE 0.12% MOUTHWASH (Status = Active/Suspended) RINSE 15ML BY MOUTH ONCE DAILY FOR INFLAMMATION OF THE GUMS - SWISH AND SPIT. DO NOT SWALLOW Rx# [id number] Last Released: Qty/Days Supply: Rx Expiration Date: 05/26/25 Refills Remainin Indication: FOR INFLAMMATION OF THE GUMS OUTPT CHOLECALCIF 25MCG (D3-1,000UNIT) TAB (Status = Active) TAKE ONE TABLET BY MOUTH ONCE DAILY FOR VITAMIN SUPPLEMENTATION Rx# [id number] Last Released: 04/13/24 Qty/Days Supply: Rx Expiration Date: 12/28/24 Refills Remainin Indication: FOR VITAMIN D DEFICIENCY OUTPT FAMOTIDINE 20MG TAB (Status = Active) TAKE ONE TABLET BY MOUTH ONCE DAILY FOR STOMACH ACID Rx# [id number] Last Released: 04/13/24 Qty/Days Supply: Rx Expiration Date: 12/28/24 Refills Remainin Indication: FOR HEARTBURN OUTPT GLYCOPYRROLATE 2MG TAB (Status = Discontinued) TAKE ONE TABLET BY MOUTH DIRECTED BY PROVIDER 2-3 TIMES PER DAY NEEDED FOR SECRETIONS Rx# [id number] Last Released: 04/09/24 Qty/Days Supply: Rx Expiration Date: 05/03/24 Refills Remainin OUTPT GLYCOPYRROLATE 2MG TAB (Status = Pending) TAKE ONE TABLET BY MOUTH DIRECTED BY PROVIDER 2-3 TIMES PER DAY NEEDED FOR SECRETIONS Renewed from Rx# [id number] Qty/Days Supply: Login Date: 05/25/24 Refills Ordered: 0 OUTPT HYDROCHLOROTHIAZIDE 25MG TAB (Status = Discontinued) TAKE ONE TABLET BY MOUTH ONCE DAILY FOR HIGH BLOOD PRESSURE Rx# [id number] Last Released: 04/13/24 Qty/Days Supply: Rx Expiration Date: 12/28/24 Refills Remainin Indication: FOR HIGH BLOOD PRESSURE OUTPT HYDROCHLOROTHIAZIDE 25MG TAB (Status = Pending) TAKE ONE TABLET BY MOUTH ONCE DAILY Login Date: 05/25/24 Qty/Days Supply: Refills Ordered: 3 OUTPT HYDROPHILIC (EQV EUCERIN) TOP CREAM (Status = Discontinued) APPLY A LIBERAL AMOUNT TOPICALLY ONCE DAILY FOR DRY SKIN Rx# [id number] Last Released: 08/03/23 Qty/Days Supply: 1362/90 Rx Expiration Date: 05/20/24 Refills Remainin Indication: FOR DRY SKIN OUTPT HYDROPHILIC (EQV EUCERIN) TOP CREAM (Status = Active/Suspended) APPLY A LIBERAL AMOUNT TOPICALLY ONCE DAILY FOR DRY SKIN Rx# [id number] Last Released: Qt Supply: 2 Rx Expiration Date: 05/26/25 Refills Remainin Indication: FOR DRY SKIN OUTPT HYDROXYZINE HCL 10MG TAB (Status = ) TAKE ONE TABLET BY MOUTH AT BEDTIME Rx# [id number] Last Released: 01/03/24 Qty/Days Supply: Rx Expiration Date: 03/26/24 Refills Remainin OUTPT HYDROXYZINE HCL 10MG TAB (Status = Discontinued) TAKE ONE TABLET BY MOUTH AT BEDTIME Rx# [id number] Last Released: 04/06/24 Qty/Days Supply: Rx Expiration Date: 07/02/24 Refills Remainin OUTPT HYDROXYZINE HCL 10MG TAB (Status = Pending) TAKE ONE TABLET BY MOUTH AT BEDTIME NEEDED has day supply please suspend Login Date: 05/25/24 Qty/Days Supply: Refills Ordered: 0 OUTPT MELATONIN 5MG CAP/TAB (Status = Active) TAKE THREE CAPSULE/TABLETS BY MOUTH AT BEDTIME FOR INSOMNIA Rx# [id number] Last Released: 04/06/24 Qty/Days Supply: 270/ Rx Expiration Date: 10/26/24 Refills Remainin Indication: FOR INSOMNIA OUTPT MEMANTINE HCL 10MG TAB (Status = Discontinued) TAKE ONE TABLET BY MOUTH TWICE DAILY Rx# [id number] Last Released: 04/03/24 Qty/Days Supply: 180/ Rx Expiration Date: 12/27/24 Refills Remainin OUTPT MEMANTINE HCL 10MG TAB (Status = Active/Suspended) TAKE ONE TABLET BY MOUTH TWICE DAILY Rx# [id number] Last Released: Qty/Days Supply: Rx Expiration Date: 04/04/25 Refills Remainin OUTPT MIDODRINE HCL 5MG TAB (Status = Discontinued) TAKE ONE TABLET BY MOUTH THREE TIMES DAILY NEEDED FOR LOW BLOOD PRESSURE Rx# [id number] Last Released: 03/31/24 Qty/Days Supply: 90/30 Rx Expiration Date: 05/20/24 Refills Remainin Indication: FOR LOW BLOOD PRESSURE OUTPT MIDODRINE HCL 5MG TAB (Status = Active/Suspended) TAKE ONE TABLET BY MOUTH THREE TIMES DAILY NEEDED FOR LOW BLOOD PRESSURE Rx# [id number] Last Released: Qty/Days Supply: 90 Rx Expiration Date: 05/26/25 Refills Remainin Indication: FOR LOW BLOOD PRESSURE OUTPT MULTIVITAMIN/MINERALS CAP/TAB (Status = Discontinued) TAKE 1 TABLET BY MOUTH ONCE DAILY FOR VITAMIN SUPPLEMENTATION Rx# [id number] Last Released: 01/27/24 Qty/Days Supply: 100 Rx Expiration Date: 12/28/24 Refills Remainin Indication: FOR VITAMIN SUPPLEMENTATION OUTPT MULTIVITAMIN/MINERALS LIQUID (Status = Active) TAKE 1 TABLESPOON (15ML) BY MOUTH ONCE DAILY FOR VITAMIN SUPPLEMENTATION Rx# [id number] Last Released: 04/03/24 Qty/Days Supply: 48030 Rx Expiration Date: 03/31/25 Refills Remainin Indication: FOR VITAMIN SUPPLEMENTATION OUTPT NUTR SUPL OSMOLITE 1.2 WILLIAM LIQUID (Status = Active) USE 5 CANS VIA G-TUBE CONTINUOUSLY FOR NUTRITIONAL SUPPLEMENTATION AT 115ML PER HOUR OVERNIGHT AND FLUSH WITH 220ML WATER EVERY 8 HOURS DIRECTED Rx# [id number] Last Released: 05/23/24 Qty/Days Supply: 168 Rx Expiration Date: 05/19/25 Refills Remainin Indication: FOR NUTRITIONAL SUPPLEMENTATION OUTPT OATMEAL,COLLOIDAL CLEANSING BAR/DRY SKIN (Status = Active) DIRECTED TOPICALLY ONCE DAILY FOR SKIN IRRITATION Rx# [id number] Last Released: 10/13/23 Qty/Days Supply: Rx Expiration Date: 10/11/24 Refills Remainin Indication: FOR SKIN IRRITATION OUTPT POLYETHYLENE GLYCOL 3350 ORAL PWDR (Status = Discontinued) TAKE 17 GRAMS(FILL CAP TO 17GM LINE) BY MOUTH ONCE DAILY FOR CONSTIPATION [MIX WITH 4 TO 8OZ. OF BEVERAGE] Rx# [id number] Last Released: 08/05/23 Qty/Days Supply: Rx Expiration Date: 05/20/24 Refills Remainin Indication: FOR CONSTIPATION OUTPT POLYETHYLENE GLYCOL 3350 ORAL PWDR (Status = Active/Suspended) TAKE 17 GRAMS(FILL CAP TO 17GM LINE) BY MOUTH ONCE DAILY FOR CONSTIPATION [MIX WITH 4 TO 8OZ. OF BEVERAGE] Rx# [id number] Last Released: Qty/Days Supply: Rx Expiration Date: 05/26/25 Refills Remainin Indication: FOR CONSTIPATION OUTPT RASAGILINE MESYLATE 1MG TAB (Status = Active) TAKE ONE TABLET BY MOUTH ONCE DAILY Rx# [id number] Last Released: 04/06/24 Qty/Days Supply: Rx Expiration Date: 12/27/24 Refills Remainin SUPPLIES OUTPT CATH,EXTERNAL EXTENDED WEAR SMALL H#9206 (Status = Discontinued) USE 1 CATHETER URETHRAL ONCE DAILY Rx# [id number] Last Released: 03/01/24 Qty/Days Supply: Rx Expiration Date: 03/01/25 Refills Remainin Indication: INCONTINENCE OUTPT CATH,EXTERNAL EXTENDED WEAR SMALL H#9206 (Status = Pending) USE 1 CATHETER URETHRAL ONCE DAILY Login Date: 05/25/24 Qty/Days Supply: Refills Ordered: 3 OUTPT DEPEND UNDERWEAR,MAXIMUM,MEN LARGE (Status = Active) USE 1 BRIEF DIRECTED THREE TIMES A DAY INCONTINENCE Rx# [id number] Last Released: 03/29/24 Qty/Days Supply: Rx Expiration Date: 03/30/25 Refills Remainin Indication: INCONTINENCE OUTPT DIAPER ADULT LARGE EXTRA ABSORBENT (Status = Active) USE 1 BRIEF DIRECTED THREE TIMES A DAY INCONTINENCE Rx# [id number] Last Released: 10/12/23 Qty/Days Supply: Rx Expiration Date: 10/10/24 Refills Remainin Indication: INCONTINENCE OUTPT FEED BAG W/PUMP SET ENFIT COVID#[id number] (Status = Active) USE 1 BAG VIA G-TUBE ONCE DAILY NUTRITION Rx# [id number] Last Released: 05/21/24 Qty/Days Supply: Rx Expiration Date: 05/19/25 Refills Remainin Indication: NUTRITION OUTPT GAUZE PAD 4IN X 4IN NONSTERILE (Status = Discontinued) APPLY GAUZE(S) TOPICALLY ONCE DAILY Rx# [id number] Last Released: 05/21/24 Qty/Days Supply: 200/90 Rx Expiration Date: 05/19/25 Refills Remainin Indication: NUTRITION OUTPT INCONT LINER PREVAIL GUARDS #PV-811 (Status = Active) USE 1 LINER TOPICALLY TWO TIMES A DAY Rx# [id number] Last Released: 10/12/23 Qty/Days Supply: 126/60 Rx Expiration Date: 10/10/24 Refills Remainin Indication: INCONTINENCE OUTPT INCONT LINER,MENS X-HVY SURECARE #86904E (Status = Active) USE 1 LINER TOPICALLY AT BEDTIME Rx# [id number] Last Released: 02/01/24 Qty/Days Supply: 84/84 Rx Expiration Date: 10/10/24 Refills Remainin Indication: INCONTINENCE OUTPT INCONTINENCE WRAP,MALE (Status = Active) USE 1 INCONTINENCE WRAP TOPICALLY AT BEDTIME Rx# [id number] Last Released: 10/31/23 Qty/Days Supply: 100/90 Rx Expiration Date: 10/11/24 Refills Remainin Indication: INCONTINENCE OUTPT IRRIGATING SYRINGE CATHETER TIP 50-60ML (Status = Active) USE 1 SYRINGE NEEDED NUTRITION Rx# [id number] Last Released: 05/21/24 Qty/Days Supply: Rx Expiration Date: 05/19/25 Refills Remainin Indication: NUTRITION OUTPT ORAL,SWAB TOOTHETTE (Status = ) USE 1 MOUTH SWAB DIRECTED ONCE DAILY TO USE WITH CHLOREHEXADINE ORAL RINSE Rx# [id number] Last Released: 08/05/23 Qty/Days Supply: 250/90 Rx Expiration Date: 05/20/24 Refills Remainin OUTPT ORAL,SWAB TOOTHETTE (Status = Pending) USE 1 MOUTH SWAB DIRECTED ONCE DAILY TO USE WITH CHLOREHEXADINE ORAL RINSE Renewed from Rx# [id number] Qty/Days Supply: 250/90 Login Date: 05/25/24 Refills Ordered: 3 OUTPT TAPE,MICROPORE 2IN #1530-2 (Status = Pending) USE 1 PIECE TOPICALLY ONCE DAILY NEEDED Login Date: 05/25/24 Qty/Days Supply: Refills Ordered: 0 OUTPT UNDERPAD,BED ULTRASORB 12I45LR #3136 (Status = Active) USE 2 UNDERPADS TOPICALLY AT BEDTIME Rx# [id number] Last Released: 10/12/23 Qty/Days Supply: 200/90 Rx Expiration Date: 10/10/24 Refills Remainin Indication: INCONTINENCE OUTPT URINARY DRAINAGE BAG BARD #477320 (Status = Active) USE 1 URINARY DRAINAGE BAG EVERY 7 DAYS Rx# [id number] Last Released: 03/02/24 Qty/Days Supply: 10/15 Rx Expiration Date: 03/01/25 Refills Remainin Indication: INCONTINENCE OUTPT VALVE,ARCHANA ENTERAL,ICU MEDICAL #9000 (Status = Active) USE 1 VALVE ONCE DAILY NUTRITION Rx# [id number] Last Released: 05/22/24 Qty/Days Supply: 10/22 Rx Expiration Date: 05/19/25 Refills Remainin Indication: NUTRITION PHARMACY TERMS AND POSSIBLE PATIENT ACTIONS INPT = [place] inpatient order IV = [place] intravenous medication OUTPT = [place] outpatient prescription PHARMACY POSSIBLE PATIENT TERMS EXPLANATION ACTIONS -------- -- ACTIVE A prescription that can be If you have refills, filled at the local [place] pharmacy. you may request a refill of this prescription from your [place] pharmacy. CLINIC A medication you received during If you have questions a visit to a [place] clinic or about this medication emergency department. contact your VA healthcare team. DISCONTINUED A prescription your provider has Contact your VA stopped. It is no longer healthcare team if you available to be sent to you or need more of this picked up at the [place] pharmacy medication. window. A prescription which is too old Contact your VA to fill. This does not refer to healthcare team if you the expiration date of the need more of this medication in the container. medication. NON-VA A medication that came from If this medication someplace other than a VA information is pharmacy. This may be a incorrect or out of prescription from either the VA date, please tell your or non-VA providers that was VA healthcare team. filled outside the VA. Or, it may be an odmc-war-odccgel (OTC), herbal, dietary supplements or sample medication. ON HOLD An active prescription that will Contact your VA not be filled until pharmacy pharmacy when you need resolves the issue. more of this medication. PARKED An active prescription that will Contact your VA not be filled until the patient pharmacy when you need requests it. this medication. PENDING This prescription order has been If you have been sent to the pharmacy for review instructed to start and is not ready yet. this medication now, contact your VA pharmacy. SUSPENDED An active prescription that is Contact your VA not scheduled to be filled yet. pharmacy if you need You should receive it before this medication now. you run out. ====== Alcohol Use Screen (AUDIT-C): Alcohol Screen: SCREEN FOR ALCOHOL (AUDIT-C) An alcohol screening test (AUDIT-C) was negative (score=0). 1. How often did you have a drink containing alcohol in the past year? Consider a drink to be a 12 ounce can or bottle of regular beer, 8 ounces of malt liquor, a 5 ounce glass of table wine, or a 1.5 ounce shot of liquor (like scotch, gin, or vodka). Never 2. How many drinks containing alcohol did you have on a typical day when you were drinking in the past year? Response not required due to responses to other questions. 3. How often did you have six or more drinks on one occasion in the past year? Response not required due to responses to other questions. Suicide Screen: C-SSRS Screening [place] Suicide Severity Rating Scale (C-SSRS) screener 1. Over the past month, have you wished you were or wished you could go to sleep and not wake up? No 2. Over the past month, have you had any actual thoughts of killing yourself? No 3. Over the past month, have you been thinking about how you might do this? Response not required due to responses to other questions. 4. Over the past month, have you had these thoughts and had some intention of acting on them? Response not required due to responses to other questions. 5. Over the past month, have you started to work out or worked out the details of how to kill yourself? Response not required due to responses to other questions. 6. If yes, at any time in the past month did you intend to carry out this plan? Response not required due to responses to other questions. 7. In your lifetime, have you ever done anything, started to do anything, or prepared to do anything to end your life (for example, collected pills, obtained a gun, gave away valuables, went to the roof but didn't jump)? No 8. If YES, was this within the past 3 months? Response not required due to responses to other questions. /consuelo [facility]IU [facility] NURSE PRACTITIONER Signed: 05/25/2024 14:24 Receipt Acknowledged By: 05/25/2024 17:34 /consuelo [employer] EX[employer] CLERK HB MANAGER [employer]ROID 05/25/2024 ADDENDUM STATUS: COMPLETED B/P: 106/62 (05/25/2024 11:00) Pulse: 54 (05/25/2024 11:00) Temperature: 97.1 F [36.2 C] (05/25/2024 11:00) Weight: 173.6 lb [78.74 kg] (05/23/2024 12:00) Height: 65 in [165.1 cm] (04/26/2023 11:00) BMI: BMI: 28.9 Pain: 0 (05/25/2024 11:00) (0-10 scale) Pulse Ox:Measurement DT POx (L/MIN)(%) 05/25/2024 11:00 99 /consuelo [facility]IU [facility] NURSE PRACTITIONER Signed: 05/25/2024 14:24 05/25/2024 ADDENDUM STATUS: COMPLETED [place] would like palliative care complex hsp stay with discharge to SNF now home. /consuelo [facility]IU [facility] NURSE PRACTITIONER Signed: 05/25/2024 14:25 Receipt Acknowledged By: * AWAITING SIGNATURE * JOSE ESPARZA * AWAITING SIGNATURE * KAN KWON 05/25/2024 ADDENDUM STATUS: COMPLETED Voice mail left for spouse with information on [facility] [employer] that they can use to take to medical appointments since it's becoming more difficult to get him out of the house. Upcoming appointments are non-VA. Contact info left for her to call this service writer advisor with any questions. /es/ CEE REYES VICE PRESIDENT COMPLIANCE [facility] Wood Floor Refinisher Signed: 05/25/2024 16:05 LUIS FERNANDO FONTANEZ [facility]
--- OUTSIDE RECORDS SUMMARY | 2024-05-30 08:57 | XMS_ITS | Encounter Summary ---
Author Name Department [place] Organization [place] Address [address] [place] [address] Care Team Providers Care Shell Worker Name Role Phone LUIS FERNANDO FONTANEZ Primary [...] SIMS ION [id number] 1 Jun 20, 2017 [id number] EAMON OLIVIA ERT PATIENT MEDICARE (WNR) MEDICARE (M) PART A Jun 20, 2014 PART A [id number] EAMON OLIVIA ERT PATIENT MEDICARE (WNR) MEDICARE (M) PART B Jun 20, 2014 PART B [id number] EAMON OLIVIA ERT PATIENT MEDICARE (WNR) MEDICARE (M) PART B Jun 20, 2014 PART B [id number] EAMON OLIVIA ERT PATIENT MEDICARE (WNR) MEDICARE (M) PART A Jun 20, 2014 PART A [id number] EAMON OLIVIA ERT PATIENT OPTUM RX PRESCRIPT ION RX Jun 20, 2023 THPRX [id number] EAMON OLIVIA ERT PATIENT OPTUM RX PRESCRIPT ION RX Jun 20, 2022 THPRX [id number] EAMON OLIVIA ERT PATIENT OPTUM RX PRESCRIPT ION RX Jun 20, 2022 THPRX [id number] [phone] DAVON OLIVIA JR PATIENT [facility] MAR Jun 20, 2017 [id number] [phone] EAMON OLIVIA ERT PATIENT [facility] E Jun 20, 2017 [id number] DAVON OLIVIA JR PATIENT [facility] Jun 20, 2017 [id number] DAVON OLIVIA JR PATIENT [facility] Jun 20, 2017 [facility] [id number] EAMON OLIVIA ERT PATIENT [facility] Jun 20, 2023 [id number] [phone] EAMON OLIVIA ERT PATIENT Selected Encounter This section includes the information on record at [place] for the Encounter. Date/Time Encounter Type Encounter Description Reason Provider Source May 21, 2024 04:15 PM PRO PHONE CALL 11-20 MIN TELEPHONE [facility] ICD-10-CM R13.10 Dysphagia, unspecified RISING,JENNIFER L IHE Encounter Template Text not used by [place] Assessments - Encounter Diagnoses This section includes the primary and secondary diagnoses documented for the Encounter. Date/Time Primary/Secondary Diagnosis Diagnosis Name Provider Source May 21, 2024 04:15 PM PRIMARY Dysphagia, unspecified RISING,HEATHE R L [place] [facility] [place] [facility] May 21, 2024 04:15 PM SECONDARY Parkinson's dis w/o dyskinesia, w/o mention of fluctuations RISING,HEATHE R L [place] [facility] [place] [facility] Plan of Treatment: Future Appointments (+ 6 months) and Future Tests (+/- 45 days) The Plan of Treatment section includes future care activities for the patient from all [place] [facility]. This section includes future appointments and [...] Order CBC AND DIFF (AUTO) BLOOD (LAV-BLOOD) [facility] May 01, 2024 12:00 AM Laboratory - Chemi stry Order IRON & TIBC PANEL BLOOD (SST-SERUM) [facility] May 01, 2024 12:00 AM Laboratory - Chemi stry Order FERRITIN BLOOD (SST-SERUM) [facility] Social History: Smoking Status (Most current) and [...] Facil ity Jan 19, 2023 12:24 PM [place]-TO[place] NEVER USED [facility] Tobacco Use History This section includes a history of the smoking, or tobacco-related health factors, that were collected on or before the date of the Encounter. The data comes from the [place] facility where the Encounter took place. Date/Time Smoking Status/Tobacco Use Comment F acility Jan 15, 2021 11:00 AM [place]-TOBAC[place] NEVER USED [facility] Advance Directives: All historical and current Section [...] 2021 ADVANCE DIRECTIVE BENT[facility] ARAUZ [facility] Encounter Notes: All associated encounter notes This section contains the clinical notes associated to the Encounter. Date/Time Encounter Note(s) Provider Source May 22, 2024 07:27 AM [facility] NOTE: LOCAL TITLE: [facility] POST DISCHARGE CONTACT STANDARD TITLE: [facility] NOTE DATE OF NOTE: MAY 22, 2024@07:27 ENTRY DATE: MAY 22, 2024@07:28:09 AUTHOR: JENNIFER SEGURA COSIGNER: URGENCY: STATUS: COMPLETED Location of Discharge: [facility] Contact attempt: 1st identified by the following: Full Name Date of Contact made through telephone call Spoke with someone other than the [place]: Spoke to: 's spouse Tory Reason for hospitalization/Emergency Department/Urgent Care visit: Hospital then [facility] for fall, Fx hip, dysphagia g-tube placed in hospital [place]/Caregiver states condition has improved. Confirmed the below changes to medications, equipment or supplies: went home with G-tube feedings. Spouse was taught how to use pump at [facility]. TF order at [facility]: Osmolyte 1.2 at 115mls/hr x10hrs nocturnal via g-tube to. sent home with supplies. [place] ordered supplies Primary Diagnosis at Discharge: Other Diagnosis: FX hip, dysphagia, PD Follow up Service Referrals: Other: [facility] sent home with CD [facility] services for nursing and physical therapy Future Appointments: Informed, discussed and confirmed next scheduled appointments RNCM spoke to 's spouse Tory who reports they arrived home today 05/21 around 11am and [place] is doing well. Ambulated a few steps today. Pain well managed. Spouse reports appetite is improving and doesn't think he will be on g- tube feedings long. Had [id number] and ham salad (pureed) for lunch with a glass of water and apple cider, grilled cheese cut into small fine pieces and peaches (pureed) with glass of water and soda for dinner. No swallowing issues. Reviewed medications all in the home. Reviewed overnight feedings. Spouse states she has been taught how to use g-tube pump at rehab but received a different G- tube feeding pump from [place] that was delivered to home this weekend but not trained on it. [facility] sent home with their pump which spouse is familiar with and has been trained. Reviewed the importance of following diet and g-tube feedings as ordered. Educated spouse [place] needs feedings to maintain adequate hydration and to meet 100% of nutrition. No N/V/D/C/R>250. Educated on aspirations precautions. CD ANAA will be starting tomorrow for nursing and PT. RADHA Colon is back working with . [place] scheduled for barium swallow this 05/24 at [facility], spouse will be bringing him to the appt and foundation drill operator will be meeting them there to assist spouse getting [place] in and out of the car. RNCM scheduled to see on 05/23 for hospital/rehab follow up and Annual. Verbalized understanding Length of time spent: 20 minutes /sharron/ JENNIFER SEGURA COOKER HELPER [facility] REFRIGERATION MECHANIC HELPER Signed: 05/22/2024 08:13 Receipt Acknowledged By: 05/22/2024 11:33 /sharron/ LUIS FERNANDO GASTON NURSE PRACTITIONER JENNIFER SEGURA [place] [facility]
--- OUTSIDE RECORDS SUMMARY | 2024-05-30 08:57 | XMS_ITS | Encounter Summary ---
Author Name Department of [place]a Affairs ([place]) Organization [facility] Address [address] [place] [address] Care Team Providers Care Set Up Mechanic Heading Machines Name Role Phone HUSEYIN LUIS FERNANDO Primary [...] ALNelly ION [id number] 1 Jun 20, 2017 [id number] EAMON OLIVIA ERT PATIENT MEDICARE (WNR) MEDICARE (M) PART A Jun 20, 2014 PART A [id number] EAMON OLIVIA ERT PATIENT MEDICARE (WNR) MEDICARE (M) PART B Jun 20, 2014 PART B [id number] [phone] EAMON OLIVIA ERT PATIENT MEDICARE (WNR) MEDICARE (M) PART A Jun 20, 2014 PART A [id number] EAMON OLIVIA ERT PATIENT MEDICARE (WNR) MEDICARE (M) PART B Jun 20, 2014 PART B [id number] [phone] EAMON OLIVIA ERT PATIENT OPTUM RX PRESCRIPT ION RX Jun 20, 2023 THPRX [id number] [phone] EAMON OLIVIA ERT PATIENT OPTUM RX PRESCRIPT ION RX Jun 20, 2022 THPRX [id number] [phone] EAMON OLIVIA ERT PATIENT OPTUM RX PRESCRIPT ION RX Jun 20, 2022 THPRX [id number] DAVON OLIVIA JR PATIENT [facility] Jun 20, 2017 [id number] EAMON OLIVIA ERT PATIENT [facility] E Jun 20, 2017 [id number] [phone] DAVON OLIVIA JR PATIENT [facility] Jun 20, 2017 [id number] DAVON OLIVIA JR PATIENT [facility] Jun 20, 2017 [id number] EAMON OLIVIA ERT PATIENT [facility] Jun 20, 2023 [id number] EAMON OLIVIA ERT PATIENT Selected Encounter [...] Jan 20, 2021 ADVANCE DIRECTIVE BENTON ARAUZ [facility]
--- OUTSIDE RECORDS SUMMARY | 2024-05-30 08:57 | XMS_ITS ---
Author Name Department [place] Address [address] [place] [id number] Care Team Providers Care Manpower Development Advisor Name Role Phone LUIS FERNANDO FONTANEZ Primary [...] PRESCRIPT ION [id number] 1 Jun 20, 2017 [id number] EAMON OLIVIA ERT PATIENT MEDICARE (WNR) MEDICARE (M) PART A Jun 20, 2014 PART A [id number] EAMON OLIVIA ERT PATIENT MEDICARE (WNR) MEDICARE (M) PART B Jun 20, 2014 PART B [id number] [phone] EAMON OLIVIA ERT PATIENT MEDICARE (WNR) MEDICARE (M) PART A Jun 20, 2014 PART A [id number] EAMON OLIVIA ERT PATIENT MEDICARE (WNR) MEDICARE (M) PART B Jun 20, 2014 PART B [id number] EAMON OLIVIA ERT PATIENT OPTUM RX PRESCRIPT ION RX Jun 20, 2023 THPRX [id number] [phone] EAMON OLIVIA ERT PATIENT OPTUM RX PRESCRIPT ION RX Jun 20, 2022 THPRX [id number] EAMON OLIVIA ERT PATIENT OPTUM RX PRESCRIPT ION RX Jun 20, 2022 THPRX [id number] DAVON OLIVIA JR PATIENT [facility] MAR Jun 20, 2017 [id number] EAMON OLIVIA ERT PATIENT [facility] E Jun 20, 2017 [id number] DAVON OLIVIA JR PATIENT [facility] Jun 20, 2017 [id number] DAVON OLIVIA JR PATIENT [facility] USP Jun 20, 2017 USP [id number] EAMON OLIVIA ERT PATIENT [facility] Jun 20, 2023 [id number] [phone] EAMON OLIVIA ERT PATIENT Selected Encounter This section includes the information on record at [place] for the Encounter. Date/Time Encounter Type Encounter Description Reason Pro vider Source May 25, 2024 12:05 PM Outpatient Encounter [facility] PHYSIC EXTND(QUICK PRINT OPERATOR,IT COMPLIANCE ANALYST,PA) IHE Encounter Template Text not used [...] of theEncounter. The data comes from all [place] treatment facilities. Test Date/Time Test Type Test Details Facility Name May 25, 2024 12:00 AM Laboratory - Chemistry Order OCCULT BLOOD FIT X1 SCREEN(IN-HOUSE) STOOL FECES SP [facility] May 25, 2024 11:24 AM Consult Order PALLIATIVE CARE CONSULT OUTPT Cons Machinery Engineer's Choice [facility] May 25, 2024 04:09 PM Consult Order PROSTHETICS REQUEST Cons Machinery Engineer's Choice [facility] May 25, 2024 04:15 PM Consult Order PROSTHETICS REQUEST Cons Machinery Engineer's Choice [facility] Jun 24, 2024 12:00 AM Laboratory - Chemistry Order BASIC METABOLIC PANEL (non-fasting) BLOOD (SST-SERUM) [facility] Jun 24, 2024 12:00 AM Laboratory - Chemistry Order LIVER FUNCTION BLOOD (SST-SERUM) [facility] Jun 24, 2024 12:00 AM Laboratory - Chemistry Order MAGNESIUM BLOOD (SST-SERUM) SP [facility] Jun 24, 2024 12:00 AM Laboratory - Chemistry Order VITAMIN B12 BLOOD (SST-SERUM) [facility] Jun 24, 2024 12:00 AM Laboratory - Chemistry Order VITAMIN D (25-OH) BLOOD (SST-SERUM) SP ONCE [facility] Jun 24, 2024 12:00 AM Laboratory - Chemistry Order CBC AND DIFF (AUTO) BLOOD (LAV-BLOOD) [facility] Jun 24, 2024 12:00 AM Laboratory - Chemistry Order IRON & TIBC PANEL BLOOD (SST-SERUM) [facility] Jun 24, 2024 12:00 AM Laboratory - Chemistry Order FERRITIN BLOOD (SST-SERUM) [facility] Jun 24, 2024 12:00 AM Laboratory - Chemistry Order RETICULOCYTES BLOOD (LAV-BLOOD) [facility] Jun 24, 2024 12:00 AM Laboratory - Chemistry Order FOLATE (WROX) BLOOD (SST-SERUM) SP [facility]CE [place] [facility] [place] [facility] Jun 24, 2024 12:00 AM Laboratory - Chemistry Order TSH BLOOD (SST-SERUM) SP [place] [facility] [facility] Jun 24, 2024 12:00 AM Laboratory - Chemistry Order PO4 BLOOD (SST-SERUM) [facility] Vital Signs: All taken on the encounter date This section contains inpatient and outpatient Vital Signs collected on the date of the Encounter. Date/Time Temperature Pulse Blood Pressure Respiratory Rate SP02 Pain Height Weight Body Mass Index Source May 25, 2024 11:00 AM 97.1 54 106/62 20 99 0 [place] [facility] [place] [facility] Social History: Smoking Status (Most current) [...] Facil ity May 25, 2024 09:30 AM [place]-TOBACCO NEVER U SED [facility]TES [facility] Tobacco Use History This section includes a history of the smoking, or tobacco-related health factors, that were collected on or before the date of the Encounter. The data comes from the [place] facility where the Encounter took place. Date/Time Smoking Status/Tobacco Use Comment F acility May 25, 2024 09:30 AM [place]-TOBAC[place] NEVER U SED OTHER TYPE [place] [facility] [place] [facility] Jan 19, 2023 12:24 PM VA-TOBACCO NEVER USED [place] [facility] [facility] Jan 15, 2021 11:00 AM [place]-TOBACCO NEVER USED [facility] Advance Directives: All historical and [...] 20, 2021 ADVANCE DIRECTIVE [facility] Encounter Notes: All associated encounter notes This section contains the clinical notes associated to the Encounter. Date/Time Encounter Note(s) Provider Source May 01, 2024 12:05 PM ADMINISTRATIVE NOT E: LOCAL TITLE: FAX/MAIL RECEIVED STANDARD TITLE: ADMINISTRATIVE NOTE DATE OF NOTE: MAY 01, 2024@12:05 ENTRY DATE: MAY 25, 2024@12:05:32 AUTHOR: KALYAN BARBER EXP COSIGNER: URGENCY: STATUS: COMPLETED Document Received On: May Document Type: Lab Results Date of Service: Apr Facility and or Provider: [facility] Contact Information: PCP of Record: LUIS FERNANDO FONTANEZ Next visit with PCP: No future appointments Primary Care May keep copies of this document for up to 14 days and send the original for scanning. /sharron/ KALYAN BARBER [facility] CHIEF KNOWLEDGE OFFICER Signed: 05/25/2024 12:06 Receipt Acknowledged By: 05/25/2024 19:16 /sharron/ JENNIFER SEGURA ZINC ETCHER [facility] SECURITY INTERN 05/25/2024 13:28 /sharron/ LUIS FERNANDO FONTANEZ MAT CUTTER-C [facility] NURSE PRACTITIONER KALYAN BARBER [facility]
--- OUTSIDE RECORDS SUMMARY | 2024-05-30 08:58 | XMS_ITS ---
Author Name Department [place] Organization [facility] Affairs [place]) Address [address] [place] [address] Care Team Providers Care Tire Balancer Name Role Phone LUIS FERNANDO FONTANEZ Primary [...] SIMS ION [id number] 1 Jun 20, 2017 [id number] EAMON OLIVIA ERT PATIENT MEDICARE (WNR) MEDICARE (M) PART A Jun 20, 2014 PART A [id number] [phone] EAMON OLIVIA ERT PATIENT MEDICARE (WNR) MEDICARE (M) PART B Jun 20, 2014 PART B [id number] EAMON OLIVIA ERT PATIENT MEDICARE (WNR) MEDICARE (M) PART A Jun 20, 2014 PART A [id number] EAMON OLIVIA ERT PATIENT MEDICARE (WNR) MEDICARE (M) PART B Jun 20, 2014 PART B [id number] EAMON OLIVIA ERT PATIENT OPTUM RX PRESCRIPT ION RX Jun 20, 2023 THPRX [id number] [phone] EAMON OLIVIA ERT PATIENT OPTUM RX PRESCRIPT ION RX Jun 20, 2022 THPRX [id number] EAMON OLIVIA ERT PATIENT OPTUM RX PRESCRIPT ION RX Jun 20, 2022 THPRX [id number] DAVON OLIVIA JR PATIENT [facility] Jun 20, 2017 [id number] EAMON OLIVIA ERT PATIENT [facility] E Jun 20, 2017 [id number] DAVON OLIVIA JR PATIENT [facility] E Jun 20, 2017 [id number] DAVON OLIVIA JR PATIENT [facility] US[facility] Jun 20[facility] 2017 [facility] [id number] EAMON OLIVIA ERT PATIENT [facility] Jun 20, 2023 [id number] EAMON OLIVIA ERT PATIENT Selected Encounter This section includes the information on record at [place] for the Encounter. Date/Time Encounter Type Encounter Description Reason Pro vider Source May 23, 2024 02:55 PM Outpatient Encounter [facility] Nursing (RN / LP) IHE Encounter Template [...] BLOOD FIT X1 SCREEN(IN-HOUSE) STOOL FECES SP [facility] May 25, 2024 11:24 AM Consult Order PALLIATIVE CARE CONSULT OUTPT Cons Clinical Staff Educator's Choice [facility] Jun 24, 2024 12:00 AM Laboratory - Chemistry Order BASIC METABOLIC PANEL (non-fasting) BLOOD (SST-SERUM) SP [facility] Jun 24, 2024 12:00 AM Laboratory - Chemistry Order LIVER FUNCTION BLOOD (SST-SERUM) SP [facility] Jun 24, 2024 12:00 AM Laboratory - Chemistry Order MAGNESIUM BLOOD (SST-SERUM) [facility] Jun 24, 2024 12:00 AM Laboratory - Chemistry Order VITAMIN B12 BLOOD (SST-SERUM) SP [facility] Jun 24, 2024 12:00 AM Laboratory - Chemistry Order VITAMIN D (25-OH) BLOOD (SST-SERUM) SP ONCE [facility] Jun 24, 2024 12:00 AM Laboratory - Chemistry Order CBC AND DIFF (AUTO) BLOOD (LAV-BLOOD) SP [facility] Jun 24, 2024 12:00 AM Laboratory - Chemistry Order IRON & TIBC PANEL BLOOD (SST-SERUM) SP [facility] Jun 24, 2024 12:00 AM Laboratory - Chemistry Order FOLATE (WROX) BLOOD (SST-SERUM) SP ONCE [facility] Jun 24, 2024 12:00 AM Laboratory - Chemistry Order FERRITIN BLOOD (SST-SERUM) SP [facility] Jun 24, 2024 12:00 AM Laboratory - Chemistry Order RETICULOCYTES BLOOD (LAV-BLOOD) SP [facility] Jun 24, 2024 12:00 AM Laboratory - Chemistry Order TSH BLOOD (SST-SERUM) SP [facility] Jun 24, 2024 12:00 AM Laboratory - Chemistry Order PO4 BLOOD (SST-SERUM) SP [facility] Vital Signs: All taken on the encounter date This section contains inpatient and outpatient Vital Signs collected on the date of the Encounter. Date/Time Temperature Pulse Blood Pressure Respiratory Rate SP02 Pain Height Weight Body Mass Index Source May 23, 2024 12:00 PM 97.9 60 108/64 24 98 0 173.6 29 [facility] Social History: Smoking Status (Most [...] 19, 2023 12:24 PM [place]-TOBACCO NEVER USED [facility] Tobacco Use History This section includes a history of the smoking, or tobacco-related health factors, that were collected on or before the date of the Encounter. The data comes from the [place] facility where the Encounter took place. Date/Time Smoking Status/Tobacco Use Comment F acility Jan 15, 2021 11:00 AM [place]-TOBACCO NEVER USED [facility] Advance Directives: All historical and [...] Jan 20, 2021 ADVANCE DIRECTIVE BENTON ARAUZ [facility] Encounter Notes: All associated encounter notes This section contains the clinical notes associated to the Encounter. Date/Time Encounter Note(s) Provider Source May 23, 2024 03:05 PM [facility] NOTE: LOCAL TITLE: [facility] RISK ASSESSMENT STANDARD TITLE: [facility] NOTE DATE OF NOTE: MAY 23, 2024@15:05 ENTRY DATE: MAY 28, 2024@15:06:07 AUTHOR: JENNIFER SEGURA EXP COSIGNER: URGENCY: STATUS: COMPLETED Patient Risk Assessment Date: May Patient Name: DAVON OLIVIA JR Last 4#: [id number] Reason for Risk Assessment: [ ] Initial Date Admitted: [X] Annual [ ] Update VVC Ready: Yes [X] No [ ] Oxygen: Yes [ ] No [X] Smoker: Yes [ ] No [X] Does patient have air conditioning in the home? Yes [X] No [ ] Does patient have reliable heat in the home? Yes [X] No [ ] Complex Wound: Yes [ ] No [X] Ragland Catheter: Yes [ ] No [X] Type of Equipment: [ ] Liquid Tank: [ ] Concentrator: Exp.Date [ ] Bi-pap: Maintenance Date: [ ] C-pap: Maintenance Date: [ ] Portable Tank: Exp. Date: [ ] Ventilator [X] Feeding Tube Vendor Name: Phone#: Tube feed supplies come from [place] Equipment Requiring Back-Up (list): Feeding pump Does have Back up Generator: Yes [ ] No [X] Risk level for needing in home assistance: [ ] Lowest Risk - Live at home with adequate support or in residential housing (e.g. Assistive Living Facility, Senior Care) - Condition stable medically and/or cognitively with access to informal resources for help and/or independent with ADL's [X] Moderate Risk for Prolonged Emergency situations (> 5 days) - Medical/Cognitive condition more labile with dependable caregiver support - Bedbound with dependable Caregiver support - Supplemental Oxygen with dependable Caregiver support - Patient is equipment dependent, with dependable caregiver (Ventilator/Tube feedings/Dialysis/Michael lifts/etc.) [ ] Highest Risk - Lives in single family residence with no caregiver support or caregiver is not likely to provide assistance - Condition unstable medically and/or cognitively, with or without identified caregivers and Patient may deteriorate or require alternative services Comments: /sharron/ JENNIFER SEGURA PIECE WORKER [facility] STAVE CUTTER Signed: 05/28/2024 15:11 Receipt Acknowledged By: 05/29/2024 08:54 /sharron/ AMANDO OHARA CINDER DUMP CRANE OPERATOR [facility] 05/28/2024 16:30 /sharron/ KALYAN BARBER [facility] LINOLEUM LAYER JENNIFER SEGURA [place] [facility] May 23, 2024 02:59 PM PREVENTIVE MEDICIN E NURSING NOTE: LOCAL TITLE: CLINICAL REMINDERS/NURSING STANDARD TITLE: PREVENTIVE MEDICINE NURSING NOTE DATE OF NOTE: MAY 23, 2024@14:59 ENTRY DATE: MAY 28, 2024@14:59:33 AUTHOR: JENNIFER SEGURA EXP COSIGNER: URGENCY: STATUS: COMPLETED HIV Screening: Patient has been offered HIV testing and has declined. I have explained that HIV testing is recommended for all adults, even if all risk factors are absent. The patient was educated on the risk of delayed screening. /consuelo SEGURA PIECE WORKER [facility] STAVE CUTTER Signed: 05/28/2024 15:00 JENNIFER SEGURA [facility] May 23, 2024 02:55 PM PREVENTIVE MEDICIN E NURSING NOTE: LOCAL TITLE: CLINICAL REMINDERS/NURSING STANDARD TITLE: PREVENTIVE MEDICINE NURSING NOTE DATE OF NOTE: MAY 23, 2024@14:55 ENTRY DATE: MAY 28, 2024@14:56:13 AUTHOR: JENNIFER SEGURA EXP COSIGNER: URGENCY: STATUS: COMPLETED Hepatitis C Testing: Patient declines HCV lab test. /consuelo SEGURA RN BSN HBDARSHAN STAVE CUTTER Signed: 05/28/2024 14:59 JENNIFER SEGURA [facility]
== END 2024-05-25 15:37 | disposition home or self-care (01) ==
PROVIDERS: PCP Family Medicine; Visit Provider Psychiatry & Neurology Neurology
DX: G20.A2 Parkinson's disease without dyskinesia, with fluctuations (principal); G47.52 REM sleep behavior disorder
CPT/HCPCS: 99214; G2211

== ENCOUNTER → 2024-05-25 12:50 | Outpatient (BNVA) | payer OTHER, SELFPAY | PROVIDERS: PCP Family Medicine; Visit Provider Psychiatry & Neurology Neurology ==

== ENCOUNTER 2024-10-29 13:20 | Outpatient (AMB) | payer OTHER, SELFPAY ==
--- NOTE | 2024-10-29 13:20 | MHC.OFFVIS ---
Intake Visit Reasons: 6M follow up-LVM Intake Note: patient presents for parkinsons disease Allergies mirtazapine [From Remeron] Allergy (Severe, Verified 10/29/24 13:21) choking amoxicillin Allergy (Mild, Verified 10/29/24 13:21) unknown azithromycin Allergy (Mild, Verified 10/29/24 13:21) unknown tamsulosin [From Flomax] Allergy (Mild, Verified 10/29/24 13:21) unknown quetiapine Allergy (Verified 10/29/24 13:21) Unknown Statins Allergy (Severe, Uncoded 10/29/24 13:21) rhadeomyolitis IVP DYE Allergy (Uncoded 10/29/24 13:21) Unknown Medication List - Last Reconciled 10/29/24 by Fabby Sun MD apixaban (Eliquis) 5 mg PO BID carbidopa-levodopa 25-100 mg (Sinemet) 1 tab PO QID 90 days carbidopa-levodopa 25-100 mg ER 1 tab PO QID 90 days cholecalciferol (vitamin D3) 25 mcg PO DAILY glycopyrrolate (Robinul Forte) 2 mg PO BID-TID PRN hydrochlorothiazide 25 mg PO DAILY melatonin 20 mg PO DAILY memantine 10 mg PO BID 90 days midodrine 5 mg PO .prn multivitamin 1 tab PO DAILY polyethylene glycol 3350 (Miralax) 17 grams PO DAILY rasagiline (Azilect) 1 mg PO DAILY HPI Comments Details: 74 y/o male calls for follow up of parkinsons disease and cognitive issues.he had Raynauds and was started on procardia Xr 10mg . He is doing better since then . He is walking with a walker now and 1 assist . He is good except when turning. 1 hr after he takes carbidopa/levodopa he develops a redness in his face and hands - lasts 1 hrs and resolves. No itching , no dizziness etc.It started about 2 mths . He is currently at home . 08/12CT scan - head showed right frontoparietal chronic subdural hemtoma 01/18/23 There is mild generalized atrophy. There is nonspecific periventricular white matter disease. Prominent extra-axial CSF spaces versus possible small subdural hygromas appear similar to December 2021 exam. No evidence of hemorrhage. No mass, mass effect or infarct. Review at bone windows is normal. No skull fracture. Visualized paranasal sinuses, mastoid air cells and middle ears are clear. [facility] Medical History Parkinson's disease without dyskinesia, with fluctuating manifestations Subdural hematoma, nontraumatic Subdural hematoma Vitamin D deficiency Exposure to potentially hazardous chemical Exposure to solvent Exposure to cadmium Rhabdomyolysis Anxiety Atrial fibrillation Depression Hypertrophy of prostate Surgical History History of urostomy History of lithotripsy History of removal of calculus of renal pelvis through percutaneous nephrostomy No pertinent past surgical history Family History Mother Heart disease CHF (congestive heart failure) Diabetes Father Dementia Family/Other Mesothelioma Paranoid schizophrenia Depressive disorder Social History Household Members: Spouse Alcohol intake: never Patient Tobacco Use Status: Never used Tobacco Physical Exam Const Other: Awake , responds to simple questions Telehealth Telehealth Telehealth Platform: Telephone Location of provider rendering services: practice address Location of patient: address on file Patient Identification confirmed using: Name, : Yes Telehealth method: voice only Patient verbally consented to treatment: Yes Patient verbally consented to billing insurance company: Yes Patient informed of any privacy concerns related to visit: Yes Assessment & Plan Assessment & Plan (1) Parkinson's disease without dyskinesia, with fluctuating manifestations: Code(s): G20.A2 - Parkinson's disease without dyskinesia, with fluctuations Category: Medical (2) REM behavioral disorder: Code(s): G47.52 - REM sleep behavior disorder Category: Medical Plan carbidopa /levodopa 1 tab qid 7am 1 pm 6pm 11 pm carbidopa levodopa ER 1tabs 25/100 qid glycopyrrolate 2mg bid to tid azilect 1mg qd namenda 10mg bid Monitor BP- has been stable He has home health aide 5 days a week Coding Level of Care Code Tele New Pt Level 4 (25107) Complex EM visit Add On G2211 Diagnoses Parkinson's disease without dyskinesia, with fluctuating manifestations G20.A2 REM behavioral disorder G47.52
--- OUTSIDE RECORDS SUMMARY | 2024-10-29 13:39 | XMS_ITS ---
Author Name [facility] ([place] [facility] Address [address] [place] [id number] Care Team Providers Care Converting Supervisor Name Role Phone HUSEYIN LUIS FERNANDO Primary Care Provider Unavailabl e MEGAN SLAUGHTER Unavailable Unavailable CHAPALEXY AMANDO Unavailable Unavailable RARAMIN KEYES Unavailable Unavailable FEILEN, KALYAN Unavailable Unavailable GOLD, KAMILAH Unavailable Unavailable RIGO FENTON Unavailable Unavailable RISING, [...] Steen's Name Patient's Relationship to Policy Steen MEDICARE (WNR) MEDICARE (M) PART B Jun 20, 2014 PART B [id number] EAMON OLIVIA ERT PATIENT MEDICARE (WNR) MEDICARE (M) PART A Jun 20, 2014 PART A [id number] EAMON OLIVIA ERT PATIENT MEDICARE (WNR) MEDICARE (M) PART A Jun 20, 2014 PART A [id number] EAMON OLIVIA ERT PATIENT MEDICARE (WNR) MEDICARE (M) PART B Jun 20, 2014 PART B [id number] [phone] EAMON OLIVIA ERT PATIENT OPTUM RX PRESCRIPT ION RX Jun 20, 2023 THPRX [id number] EAMON OLIVIA ERT PATIENT [facility] RX PRESCRIPT ION RX Jun 20, 2022 THPRX [id number] [phone] DAVON OLIVIA JR PATIENT [facility] RX PRESCRIPT ION RX Jun 20, 2022 THPRX [id number] EAMON OLIVIA ERT PATIENT [facility] Jun 20, 2017 [id number] EAMON OLIVIA ERT PATIENT [facility] PLAN [facility] TON PE[facility]A E Jun 20, 2017 [id number] DAVON OLIVIA JR PATIENT [facility] Jun 20, 2017 [id number] [phone] DAVON OLIVIA JR PATIENT [facility] PLAN USP Jun 20, 2017 USP [id number] EAMON OLIVIA ERT PATIENT [facility] RUTH Jun 20, 2023 [id number] [phone] EAMON OLIVIA ERT PATIENT Selected Encounter This section includes the information on record at [place] for the Encounter. Date/Time Encounter Type Encounter Description Reason Provider Source May 23, 2024 12:00 PM SELF CARE MNGMENT TRAINING [facility] Nursing (RN / LP) ICD-10-CM G20.C Parkinsonism, unspecified RISING,JENNIFER L E Encounter Template Text not used by [place] Assessments - Encounter Diagnoses This section includes the primary and secondary diagnoses documented for the Encounter. Date/Time Primary/Secondary Diagnosis Diagnosis Name Provider Source May 24, 2024 02:14 PM PRIMARY Parkinsonism, unspecified RISING,HEATHE R L CO [facility] [place] [facility] May 24, 2024 02:14 PM SECONDARY Delirium due to known physiological condition RISING,HEATHE R L [facility] [place] [facility] May 24, 2024 02:14 PM SECONDARY Dysphagia, unspecified RISING,HEATHE R L [facility] [place] [facility] May 24, 2024 02:14 PM SECONDARY Weakness [facility] Plan of Treatment: Future Appointments (+ 6 months) and Future Tests (+/- 45 days) The Plan of Treatment section includes future care activities for the patient from all [place] treatmentfacilities. This section includes future appointments and future orders which are active, pending or scheduled. Future Appointments This section includes appointments that were scheduled to occur 6 months from the date of the Encounter, up to a maximum of 20 appointments. The data comes from all [place] treatment facilities. Appointment Date/Time Appointment Type Appointme nt Facility Name Jul 10, 2024 12:30 PM AMBULATORY - REHAB MEDICIN E [facility] Jul 17, 2024 02:00 PM AMBULATORY - REHAB MEDICIN E [facility] Vital Signs: All taken on the encounter date This section contains inpatient and outpatient Vital Signs collected on the date of the Encounter. Date/Time Temperature Pulse Blood Pressure Respiratory Rate SP02 Pain Height Weight Body Mass Index Source May 23, 2024 12:00 PM 97.9 60 108/64 24 98 0 173.6 29 [facility] Social History: Smoking Status (Most current) and Tobacco Use (All prior to encounter date) This section includes the most current, and the historical, smoking and tobacco- related health factors from the [place] facility where the Encounter took place. Current Smoking Status This section includes the most current smoking, or tobacco-related health factor, from the [place] facility where the Encounter took place. Date/Time Current Smoking Status Comment Raghu ity Jan 19, 2023 12:24 PM VA-TOBACCO NEVER USED [facility] Tobacco Use History This section includes a history of the smoking, or tobacco-related health factors, that were collected on or before the date of the Encounter. The data comes from the [place] facility where the Encounter took place. Date/Time Smoking Status/Tobacco Use Comment F acility Jan 15, 2021 11:00 AM VA-TOBACCO NEVER USED [facility] Advance Directives: All historical and current Section Date Range: From patient's date of to the date document was created. This section includes ALL of a patient's completed or amended VA Advance and Rescinded Directives. The entries below indicate that a directive exists for the patient, but an actual copy is not included with this document. The data comes from all [place] facilities. Date Advance Directives Provider Source Jan 20, 2021 ADVANCE DIRECTIVE BENTON ARAUZ [facility] Encounter Notes: All associated encounter notes This section contains the clinical notes associated to the Encounter. Date/Time Encounter Note(s) Provider Source May 23, 2024 02:53 PM [facility] ADMISSION EVALUATION NOTE: LOCAL TITLE: [facility] DENTAL HYGIENIST MOBILE COORDINATOR NOTE STANDARD TITLE: [facility] ADMISSION EVALUATION NOTE DATE OF NOTE: MAY 23, 2024@14:53 ENTRY DATE: MAY 23, 2024@14:53:53 AUTHOR: JENNIFER SEGURA COSIGNER: URGENCY: STATUS: COMPLETED [facility] DENTAL HYGIENIST MOBILE COORDINATOR NOTE Has ADDENDA WHAT MATTERS What Matters was addressed at this visit. - The Patient Priorities Care (PPC) approach was used to ask and identify What Matters. - The One Thing that Matters to the was used to align the current care plan. Sherman reports what matters the most to him is to be able to live in his house with his with assistance from [facility] and [facility] as long as he can. 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 Length of visit in home: 65 minutes Marital status: Primary language: Faroese Education: Advance Directive discussed with patient: Yes, Advanced Directive on file, vista [employer] Code Status: Full code. Needs MOLST Family/Community Support: Artem lives in a single family home with his Tory who is his primary caregiver/HCP/DPOA. Spouse has limited support. She has a brother Stephon who lives in [place] who will come over and stay with artem while spouse goes on errands. Jahairat requires assist with all adl's, dependent on all Iadl's. 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 denies feeling depressed. Spouse states Sherman's mood has been down since being hospitalized/rehab. is glad to be back home. 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 Pureed diet. having a barium swallowing tomorrow 05/24/24 Dental [...] ml/hr last BM:05/22 consistency: formed NUTRITION SCREEN [facility] Nutrition Screen 1. Does the [...] Diabetes? No 10.Pressure Sore? No Comments: An [facility] or Home Care Nutrition Consult [...] with stairs uses walker wheelchair bound Falls: [facility] 10 Fall Risk Assessment Tool Required Core [...] considered at risk for falling. Created by: [facility] Adaptive Equipment Assessment: Adaptive Equipment used in [...] handling money HEALTH MAINTENANCE: Influenza vaccine habits: SPIRITIAL/MORAVIAN/BELIEFS /CULTURAL: EDUCATIONAL ASSESSMENT: readiness to learn: limited [...] RNCM Annual visit submitted late due to Sherman was in rehab. Documentation will be completed under swage tender Note instead of [facility] Administrative Reassessment Note since both due. 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 Spouse has limited support. She has a brother Stephon who lives in [place] who will come over and stay with vet while spouse goes on errands. Vet requires assist with all adl's, dependent on all Iadl's. 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 PMHX: Parkinson's Disease, [...] for afib, 3 lithotripsies. SCC forearm, left. Sherman is followed by multiple community providers Community Addresser- Dr. Emil Davis Community PCP- Shirin Patrick [facility] Neurologist- Dr. Fabby Donahue [facility]- [facility]. Lloyd Soares [facility]- Dr. Svitlana Hand Sherman admitted to [facility] on 04/16 after a fall at home resulting in closed right hip fracture. S/P R hemiarthroplasty on 04/[address] Benjamin. Hospitalization complicated by aspiration pneumonia, dysphagia, resulting in G- tube. Sherman discharged from [facility] and transferred to [facility] for rehab. Sherman discharged home from rehab WBAT and on 05/21 on g-tube feedings. sitting in recliner upon arrival, spouse present. Sherman nodding off during visit. Spouse reports is doing well still weak and decreased strength and endurance. [facility], [facility], OT, speech. [facility] started back up. Sherman scheduled for barium swallow tomorrow at [facility]. [facility] will be going to appt with Sherman and spouse to assist. alert + oriented x 2 cooperative with care. Oriented to date and time. Well groomed. Dressed appropriately. Poor eye contact. Relying on spouse to answer questions. Will answer with yes , no or nod is head. Daytime sleepiness. Speech monotone, able to understand. Muscle rigidity to upper and lower extremities. He has drooling taking glycopyrrolate which spouse states is helping. Sherman with sundowning that starts early evening. Since [...] or drainage noted. Denies pain. Spouse reports Sherman hasn't been complaining of pain, no facial [...] verbalized understanding with 100% teach back. Dysphagia: on pureed diet. Scheduled for barium swallow tomorrow at [facility]. Spouse reports eating 3 meals a day and drinking 1-2 cups of fluid each meals since discharged home from rehab. had 1 piece of German toast this morning made with 2 eggs whole milk. Tusayan saturated in butter and syrup. 1 cup of whole milk. Sherman ate 100% of meal with no difficulty swallowing. Spouse reports had grill cheese and can of soda yesterday for dinner spouse cut off the crust and Sherman ate with no difficulty swallowing. No choking episodes. Spouse reports she is giving tube feedings at night, 2 cartons of osmolyte 1.2 william (237 ml per carton)115 ml/hr and flushing with 220 ml of water every 8 hours. RNCM reviewed rehab tire finisher has on 5 cans at 115mL/hr overnight, flush 220mL water every 8hrs. Spouse reports that is not what they were giving him in rehab, Sherman was receiving 2 cartons at night. Spouse reports she was there during feedings. Rehab sent Sherman home with 1 week worth of feedings per discussion with rehab tire finisher. sent home with 14 cartons which is 2 cartons daily x 1 week. RNCM spoke to [facility] RD during visit via TEAMS and reported the above findings. Reported [facility] PT weighed yesterday 173.6 lbs. Per [facility] RD Sherman is eating and drinking well he is to continue what spouse has been giving him. Sherman having barium swallow tomorrow, HB RD making home visit 05/29 and [facility] PT will weigh next Monday 05/28. [facility] RD will review barium swallow, [...] assess diet, review meds /es/ JENNIFER SEGURA VOCATIONAL REHABILITATION COUNSELOR [facility] MILLING GENERAL SUPERINTENDENT Signed: 05/24/2024 14:14 Receipt Acknowledged By: 05/24/2024 17:47 /es/ Micki Dos Santos, PharmD Clinical Pharmacy Practitioner for CANDICE GEORGE 05/30/2024 13:07 /es/ RAMIN MENDIETA, PT, MS, ATP [facility] Physical Therapist 05/24/2024 16:09 /es/ RIGO FENTON, MS, RDN, LDN Staff Dietitian 05/24/2024 15:01 /es/ CEE REYES, RUG SHAMPOOER [facility] Image Editor for KAMILAH MALCOLM 05/25/2024 07:48 /es/ LUIS FERNANDO DONNELLYC [facility] NURSE PRACTITIONER 05/24/2024 ADDENDUM STATUS: COMPLETED Please renew if in agreement. Thank you OUTPT HYDROPHILIC (EQV EUCERIN) TOP CREAM (Status = ) APPLY A LIBERAL AMOUNT TOPICALLY ONCE DAILY FOR DRY SKIN Rx# [id number] Last Released: 08/03/23 Qty/Days Supply: 1362/90 Rx Expiration Date: 05/20/24 Refills Remainin Indication: FOR DRY SKIN OUTPT POLYETHYLENE GLYCOL 3350 ORAL PWDR (Status = ) TAKE 17 GRAMS(FILL CAP TO 17GM LINE) BY MOUTH ONCE DAILY FOR CONSTIPATION [MIX WITH 4 TO 8OZ. OF BEVERAGE] Rx# [id number] Last Released: 08/05/23 Qty/Days Supply: 1530/90 Rx Expiration Date: 05/20/24 Refills Remainin Indication: FOR CONSTIPATION OUTPT ORAL,SWAB TOOTHETTE (Status = ) USE 1 MOUTH SWAB DIRECTED ONCE DAILY TO USE WITH CHLOREHEXADINE ORAL RINSE Rx# [id number] Last Released: 08/05/23 Qty/Days Supply: 250/90 Rx Expiration Date: 05/20/24 Refills Remainin /sharron/ JENNIFER SEGURA, VOCATIONAL REHABILITATION COUNSELOR [facility] MILLING GENERAL SUPERINTENDENT Signed: 05/24/2024 14:19 JENNIFER SEGURA [facility] [facility]
--- OUTSIDE RECORDS SUMMARY | 2024-10-29 13:39 | XMS_ITS | Encounter Summary ---
Author Name [facility] [facility] [place] Organization [facility] [place] Address [address] [place] [address] Care Team Providers Care Health Inspector Name Role Phone LUIS FERNANDO FONTANEZ Primary Care Provider Unavailabl e MEGAN SLAUGHTER Unavailable Unavailable CHAPALEXY, AMANDO Unavailable Unavailable RAIVETricia, RAMIN Unavailable Unavailable FEILEN, KALYAN Unavailable Unavailable MALCOLM, [...] PART B Jun 20, 2014 PART B [id number] EAMON OLIVIA ERT PATIENT MEDICARE (WNR) MEDICARE (M) PART A Jun 20, 2014 PART A [id number] EAMON OLIVIA ERT PATIENT MEDICARE (WNR) MEDICARE (M) PART A Jun 20, 2014 PART A [id number] [phone] EAMON OLIVIA ERT PATIENT MEDICARE (WNR) MEDICARE (M) PART B Jun 20, 2014 PART B [id number] EAMON OLIVIA ERT PATIENT [facility] RX PRESCRIPT ION RX Jun 20, 2023 THPRX [id number] EAMON OLIVIA ERT PATIENT [facility] RX PRESCRIPT ION RX Jun 20, 2022 THPRX [id number] [phone] DAVON OLIVIA JR PATIENT [facility] RX PRESCRIPT ION RX Jun 20, 2022 THPRX [id number] EAMON OLIVIA ERT PATIENT [facility] Jun 20, 2017 [id number] EAMON OLIVIA ERT PATIENT [facility] Jun 20, 2017 [id number] [phone] DAVON OLIVIA JR PATIENT [facility] Jun 20, 2017 [id number] DAVON OLIVIA JR PATIENT [facility] Jun [facility], 2017 [facility] [id number] [phone] EAMON OLIVIA ERT PATIENT [facility] Jun 20, 2023 [id number] EAMON OLIVIA ERT PATIENT Selected Encounter This section includes the information on record at [place] for the Encounter. Date/Time Encounter Type Encounter Description Reason Provider Source Mar 28, 2024 07:00 PM ADMN SARSCOV2 VACC 1 DOSE [facility] Nursing (RN / LP) ICD-10-CM N20.0 Calculus of kidney RISING,JENNIFER L IHE Encounter Template Text not used by [place] Assessments - Encounter Diagnoses This section includes the primary and secondary diagnoses documented for the Encounter. Date/Time Primary/Secondary Diagnosis Diagnosis Name Provider Source Mar 28, 2024 07:45 PM PRIMARY Calculus of kidney RISING,HEATHE R L [facility] [place] [facility] Mar 28, 2024 07:45 PM SECONDARY Encounter for immunization RISING,HEATHE R L [facility] [place] [facility] Mar 28, 2024 07:45 PM SECONDARY Hematuria, unspecified RISING,HEATHE R L [facility] [place] [facility] Mar 28, 2024 07:45 PM SECONDARY Parkinson's dis w/o dyskinesia, w/o mention of fluctuations RISING,HEATHE R L [facility] [place] [facility] Mar 28, 2024 07:45 PM SECONDARY Unspecified urinary incontinence RISING[facility]ATHE R L [facility] Plan of Treatment: Future Appointments [...] AM AM[facility]UL[facility] Apr 12, 2024 11:00 AM AMBULATORY - REHAB MEDICIN E [facility] Apr 26, 2024 09:00 AM AMBULATORY - MEDIC[facility] Apr 26, 2024 11:00 AM AMBULATORY - RE[facility]AB MEDICIN E [facility] Jul 10, 2024 12:30 PM AMBULATORY - RE[facility]AB MEDICIN E [facility] Jul 17, 2024 02:00 PM AMBULAT[facility] - [facility] Lab Results: +/- 30 days [...] Type Result - Unit Interpretation Reference Range Specimen Type Comment Mar 28, 2024 12:30 PM [facility] LIVER FUNCTION SERUM Specimen Type: SERUM No comment entered. Ordering Provider: LUIS FERNANDO FONTANEZ Report Released Date/Time: Dec 28, 2023 07:18 AM Reporting Lab: [facility] [place] [facility] [address] [facility] [address] Performing Lab: [address] [address] PROTEIN,TOTAL 6.0 g/dL 6.0-8.3 ALBUMIN 3.2 g/dL L 3.5-5.0 ALKALINE PHOSPHATASE 72 U/L 40-150 AST 21 U/L 5-34 ALT <6 U/L BILIRUBIN, TOTAL 0.4 mg/dL 0.2-1.2 Mar 28, 2024 12:30 PM [facility] BASIC METABOLIC PANEL (non-fasting) SERUM Spe cimen Type: SERUM No comment entered. Ordering Provider: LUIS FERNANDO FONTANEZ Report Released Date/Time: Dec 28, 2023 07:18 AM Reporting Lab: [address] [address] Performing Lab: [address] [address] UREA NITROGEN 21 mg/dL 7-25 GLUCOSE 98 mg/dL 65-100 SODIUM 139 mmol/L 135-145 POTASSIUM 3.4 mmol/L L 3.5-5.0 CHLORIDE 102 mmol/L 100-110 CO2 27 meq/L 20-30 CREATININE, Serum 0.88 mg/dL 0.50-1.40 eGFR(CKD-EPI 2020) 90 mL/min >60 Mar 28, 2024 12:30 PM [facility] CBC AND DIFF (AUTO) BLOOD Specimen Type: BLOO D No comment entered. Ordering Provider: LUIS FERNANDO FONTANEZ Report Released Date/Time: Dec 28, 2023 07:18 AM Reporting Lab: [facility] [address] [facility] [address] Performing Lab: [address] [address] WBC 9.03 10*3/uL 4.50-11.00 RBC 4.16 10*6/uL [...] 0.4 0.0-0.7 IMMATURE GRAN, ABS 0.04 10*3/uL 0.00-0.0 6 NRBC % 0.0 0.0-0.0 NRBC, ABS 0.00 10*3/uL 0.00-0.00 Vital Signs: All taken on the encounter date This section contains inpatient and outpatient Vital Signs collected on the date of the Encounter. Date/Time Temperature Pulse Blood Pressure Respiratory Rate SP02 Pain Height Weight Body Mass Index Source Mar 28, 2024 07:02 PM 97.2 74 114/68 18 98 0 [facility] Immunizations: All administered on the encounter date This section contains immunizations associated to the Encounter. Immunization Series Date Issued Administered By Site Reaction Lot Number CVX Code Drug Wreath Machine Tender Comment(s) Source COVID-19 (MODERNA), MRNA, LNP-S, PF, 50 MCG/0.5 ML (AGES 12+ YEARS) Mar 28, 2024 RISINGJIE R L RIGHT DELTO ID [id number] MODERNA [employer] ADMINISTERE D AT [facility] INFLUENZA, HIGH-DOSE, TRIVALENT, PF Mar 28, 2024 RISING,HEATHE R L LEFT DELTO ID [id number] [employer] PASTE[employer] ADMINISTERE D AT [facility] Social History: Smoking Status (Most current) and [...] 2023 12:24 PM VA-TOBACCO NEVER USED [facility] Tobacco Use History This section includes a history of the smoking, or tobacco-related health factors, that were collected on or before the date of the Encounter. The data comes from the [place] facility where the Encounter took place. Date/Time Smoking Status/Tobacco Use Comment F acility Jan 15, 2021 11:00 AM VA-TOBACCO NEVER USED [facility] Advance Directives: All historical and current [...] Jan 20, 2021 ADVANCE DIRECTIVE [facility] Encounter Notes: All associated encounter notes This section contains the clinical notes associated to the Encounter. Date/Time Encounter Note(s) Provider Source Mar 28, 2024 08:05 PM ADDENDUM: LOCAL TITLE: Addendum STANDARD TITLE: ADDENDUM DATE OF NOTE: MAR 28, 2024@20:05:37 ENTRY DATE: MAR 28, 2024@20:05:38 AUTHOR: JENNIFER SEGURA EXP COSIGNER: URGENCY: STATUS: COMPLETED Spouse asking for multivitamin + minerals to come in liquid form. Thank you /sharron/ JENNIFER SEGURA CARDIOVASCULAR RADIOLOGIC TECHNOLOGIST [facility] GLAZE MAKER Signed: 03/28/2024 20:06 Receipt Acknowledged By: 03/30/2024 08:11 /sharron/ LUIS FERNANDO GASTON NURSE PRACTITIONER --- Original Document --- 03/28/24 [...] A DAY 13) INCONT LINER,MENS X-HVY SURECARE #[id number] USE 1 LINER ACTIVE TOPICALLY AT BEDTIME [...] MOUTH ACTIVE ONCE DAILY 23) UNDERPAD,BED ULTRASORB [id number] M#[id number] USE 2 UNDERPADS ACTIVE TOPICALLY AT BEDTIME 24) URINARY DRAINAGE BAG BARD #[id number] USE 1 URINARY ACTIVE DRAINAGE BAG EVERY [...] butterfly needle on first attempt without incident. Paola tolerated well. Specimen dropped off at [facility] lab NURSING SUMMARY: RNCM made home visit for chronic disease management, c/v and c/p assessment, neuro assessment, gu assessment, draw labs, administered covid and flu vaccine. Paola in the living sitting in his recliner, spouse present. Paola s/p open cystoscopy lithotripsy with stent placement on Monday 03/26. Spouse reports md told her they weren't able to get all the stones and they are some chards left. Paola stayed overnight and spouse brought him home yesterday afternoon. Spouse states was still having effects of the anesthesia last night. Very difficult to get him and out of the car. Full incontinence last night. This morning had small breakfast and some fluids. Spouse is pushing fluids. missed 2 days of Parkinson meds. Paola in good spirits. Answering questions appropriately. Well groomed. Alert + oriented x 2. Pleasant and cooperative. Agreed to covid and flu vaccine. Physical therapist still working with . PT is reevaluating him on 03/30. Spouse reports cpap was delivered the other day but haven't had the chance to use it. Once is at his baseline spouse will start using cpap. Spouse requesting copy for the sleep study report/interpretation. has appt on 05/24 for swallowing test. Currently working with speech Therapist via [facility]. receiving 16 hours a week for [facility] services through [facility]. [facility] Isaiah is working out great. He is coming later today to shower . Spouse manages medications. Reviewed meds. Spouse asking for multivitamin + minerals to come in liquid form. Spouse calling community neurologist 2 renew 3 medications. has neurologist appt 04/26. Paola incontinent of urine. Using incontinence briefs with [...] C] (03/28/2024 19:02) Pain Score: 0 (03/28/2024 19:) EXAMINATION: Lungs: Ls clear throughout. Resp easy [...] procedure NO Teaching/goals: Refer to nursing summary. Paola goal is to live at home safely with his as long as possible with assist from his and [facility], [facility] Patient verbalizes understanding to above and will call with any concerns or changes in condition. For emergent care call 911. Revisit: 05/01 for chronic disease management, neuro assessment, c/v and c/p assessment, med review, labs /ZACHARIAH RodriguezN [facility] GLAZE MAKER Signed: 03/28/2024 19:46 03/28/2024 ADDENDUM STATUS: COMPLETED Spouses Refuses shingles vaccine. Doesn't want to have this vaccine. updated clinical reminder. /ZACHARIAH Rodriguez [facility] GLAZE MAKER Signed: 03/28/2024 19:54 JENNIFER SEGURA [facility] Mar 28, 2024 07:55 PM PREVENTIVE MEDICINE NURSING NOTE: LOCAL TITLE: CLINICAL REMINDERS/NURSING STANDARD TITLE: PREVENTIVE MEDICINE NURSING NOTE DATE OF NOTE: MAR 28, 2024@19:55 ENTRY DATE: MAR 28, 2024@19:55:21 AUTHOR: JENNIFER SEGURA EXP COSIGNER: URGENCY: STATUS: COMPLETED Sexual Orientation: The patient thinks of their sexual orientation as: Straight or Heterosexual /consuelo SEGURA RN BSN [facility] GLAZE MAKER Signed: 03/28/2024 19:55 JENNIFER SEGURA [facility] Mar 28, 2024 07:50 PM PREVENTIVE MEDICINE [...] the [facility] group Date Documented: 03/28/24 19:52 /ZACHARIAH RodriguezN [facility] GLAZE MAKER Signed: 03/28/2024 19:53 JENNIFER SEGURA [facility] Mar 28, 2024 07:48 PM PREVENTIVE MEDICINE NURSING NOTE: LOCAL TITLE: CLINICAL REMINDERS/NURSING STANDARD TITLE: PREVENTIVE MEDICINE NURSING NOTE DATE OF NOTE: MAR 28, 2024@19:48 ENTRY DATE: MAR 28, 2024@19:48:44 AUTHOR: JENNIFER SEGURA EXP COSIGNER: URGENCY: STATUS: COMPLETED COVID-19 Immunization: Moderna Monovalent (Spikevax) Administered: COVID-19 (MODERNA), MRNA, LNP-S, PF, 50 MCG/0.5 ML (AGES 12+ YEARS) Date Administered: Mar 28, 2024 19:00 Wreath Machine Tender: [employer] Lot: [id number] Exp Date: Nov 24, 2024 ND: [id number] Admin Route/Site: INTRAMUSCULAR/RIGHT DELTOID Dosage: 0.5mL Vaccine Information Statement(s): COVID-19 MRNA VACCINE (12+ YRS) VACCINE VIS Apr 07, 2023 (SINGAPOREAN) Order By: Policy Administered By: Jennifer Segura Vaccine administered without complications. /ZACHARIAH Rodriguez HB GLAZE MAKER Signed: 03/28/2024 19:49 JENNIFER [facility]URA [facility] Mar 28, 2024 07:46 PM PREVENTIVE MEDICINE NURSING NOTE: LOCAL TITLE: CLINICAL REMINDERS/NURSING STANDARD TITLE: PREVENTIVE MEDICINE NURSING NOTE DATE OF NOTE: MAR 28, 2024@19:46 ENTRY DATE: MAR 28, 2024@19:46:29 AUTHOR: JENNIFER SEGURA EXP COSIGNER: URGENCY: STATUS: COMPLETED Influenza Immunization: Influenza, High-Dose, Trivalent, Preservative Free (Fluzone-Syringe) Administered: INFLUENZA, HIGH-DOSE, TRIVALENT, PF Date Administered: Mar 28, 2024 19:00 Wreath Machine Tender: [employer] PASTEUR Lot: [id number] Exp Date: Dec 17, 2024 ND: [id number] Admin Route/Site: INTRAMUSCULAR/LEFT DELTOID Dosage: 0.5mL Vaccine Information Statement(s): INFLUENZA(FLU) VACC(INACTIVATED OR RECOMBINANT)VIS Jan 23, 2021 (SINGAPOREAN) Order By: Policy Administered By: Jennifer Segura [...] gave verbal consent to receive the vaccine. /ZACHARIAH Rodriguez HB GLAZE MAKER Signed: 03/28/2024 19:48 Receipt Acknowledged By: 03/29/2024 08:39 /sharron/ KALYAN BARBER HB NATURAL RESOURCE TECHNICIAN [facility]L [facility] Mar 28, 2024 07:04 PM [facility] NURSING NOTE: LOCAL TITLE: [facility] RN PROGRESS NOTE STANDARD TITLE: [facility] NURSING NOTE DATE OF NOTE: MAR 28, [...] A DAY 5) CATH,EXTERNAL EXTENDED WEAR SMALL H#[id number] USE 1 ACTIVE CATHETER URETHRAL ONCE DAILY [...] DRY SKIN 12) INCONT LINER PREVAIL GUARDS #[id number] USE 1 LINER ACTIVE TOPICALLY TWO TIMES A DAY 13) INCONT LINER,MENS X-HVY SURECARE #[id number] USE 1 LINER ACTIVE TOPICALLY AT BEDTIME [...] MOUTH ACTIVE ONCE DAILY 23) UNDERPAD,BED ULTRASORB [id number] #3136 USE 2 UNDERPADS ACTIVE TOPICALLY AT BEDTIME 24) URINARY DRAINAGE BAG BARD #[id number] USE 1 URINARY ACTIVE DRAINAGE BAG EVERY [...] in patient's home at time of visit. Paola identified by: Full Name, Facial Recognition Length of visit in home: 45 MINUTES Problem addressed for this visit: Administer flu and covid vaccine, hematuria, caregiver stress burden Specimen(s) collected during this visit: KRIS faisal blood from Right AC with 23 gauge butterfly needle on first attempt without incident. tolerated well. Specimen dropped off at [facility] lab NURSING SUMMARY: RNCM made home visit for chronic disease management, c/v and c/p assessment, neuro assessment, gu assessment, draw labs, administered covid and flu vaccine. in the living sitting in his recliner, spouse present. Paola s/p open cystoscopy lithotripsy with stent placement [...] car. Full incontinence last night. This morning Paola had small breakfast and some fluids. Spouse is pushing fluids. missed 2 days of Parkinson meds. in good spirits. Answering questions appropriately. Well groomed. Alert + oriented x 2. Pleasant and cooperative. Agreed to covid and flu vaccine. Physical therapist still working with . PT is reevaluating him on 03/30. Spouse reports cpap was delivered the other day but haven't had the chance to use it. Once is at his baseline spouse will start using cpap. Spouse requesting copy for the sleep study report/interpretation. has appt on 05/24 for swallowing test. Currently working with speech Therapist via [facility]. receiving 16 hours a week for [facility] services through [facility]. [facility] Isaiah is working out great. He is coming later today to shower . Spouse manages medications. Reviewed meds. Spouse asking for multivitamin + minerals to come in liquid form. Spouse calling community neurologist 2 renew 3 medications. has neurologist appt 04/26. Paola incontinent of urine. Using incontinence briefs with [...] as possible with assist from his and [facility], [facility] Patient verbalizes understanding to above and will call with any concerns or changes in condition. For emergent care call 911. Revisit: 05/01 for chronic disease management, neuro assessment, c/v and c/p assessment, med review, labs /ZACHARIAH RodriguezN [facility] GLAZE MAKER Signed: 03/28/2024 19:46 03/28/2024 ADDENDUM STATUS: COMPLETED Spouses Refuses shingles vaccine. Doesn't want Paola to have this vaccine. updated clinical reminder. /ZACHARIAH Rodriguez [facility] GLAZE MAKER Signed: 03/28/2024 19:54 03/28/2024 ADDENDUM STATUS: COMPLETED Spouse asking for multivitamin + minerals to come in liquid form. Thank you /ZACHARIAH RodriguezN [facility] GLAZE MAKER Signed: 03/28/2024 20:06 Receipt Acknowledged By: * AWAITING SIGNATURE * LUIS FERNANDO FONTANEZ [facility]
--- OUTSIDE RECORDS SUMMARY | 2024-10-29 13:39 | XMS_ITS | Encounter Summary ---
Author Name [facility] [facility] [place] [facility] [place] Address [address] [place] [address] Care Team Providers Care Wedding Transportation Driver Name Role Phone LUIS FERNANDO FONTANEZ Primary Care Provider Unavailabl e MEGAN SLAUGHTER Unavailable Unavailable CHAPUT, AMANDO Unavailable Unavailable RAIVEL, RAMIN Unavailable Unavailable FEILEN, [...] PART B Jun 20, 2014 PART B [id number] [phone] EAMON OLIVIA ERT PATIENT MEDICARE ([place]) MEDICARE (M) PART A Jun 20, 2014 PART A [id number] EAMON OLIVIA ERT PATIENT MEDICARE (WNR) MEDICARE (M) PART A Jun 20, 2014 PART A [id number] EAMON OLIVIA ERT PATIENT MEDICARE ([place]NR) MEDICARE (M) PART B Jun 20, 2014 PART B [id number] EAMON OLIVIA ERT PATIENT OPTUM RX PRESCRIPT ION RX Jun 20, 2023 THPRX [id number] EAMON OLIVIA ERT PATIENT [facility] RX PRESCRIPT ION RX Jun 20, 2022 THPRX [id number] DAVON OLIVIA JR PATIENT [facility] RX PRESCRIPT ION RX Jun 20, 2022 THPRX [id number] EAMON OLIVIA ERT PATIENT [facility] Jun 20, 2017 [id number] [phone] EAMON OLIVIA ERT PATIENT [facility] E Jun 20, 2017 [id number] DAVON OLIVIA JR PATIENT [facility] E Jun 20, 2017 [id number] DAVON OLIVIA JR PATIENT [facility] Jun 20, 2017 [facility] [id number] [phone] EAMON OLIVIA ERT PATIENT [facility] Jun 20, 2023 [id number] EAMON OLIVIA ERT PATIENT Selected Encounter This section includes the information on record at [place] for the Encounter. 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 Date/Time Primary/Secondary Diagnosis Diagnosis Name Provider Source Sep 26, 2024 08:26 AM PRIMARY Other assisted (current) drug therapy DA GEORGE [facility] [facility] [place] [facility] Plan of Treatment: Future Appointments [...] of theEncounter. The data comes from all [place] treatment facilities. Test Date/Time Test Type Test Details Facility Name Sep 11, 2024 12:00 AM Laboratory - Chemi stry Order OCCULT BLOOD FIT X1 SCREEN(IN-HOUSE) STOOL FECES SP [facility] Lab Results: +/- 30 days of the encounter This section includes the Chemistry and Hematology Lab Results on record with [place] for the patient. Radiology Reports and Pathology Reports are provided separately, in subsequent sections. Lab Results This section contains the Chemistry/Hematology Results that were resulted 30 days before or 30 daysafter the date of the Encounter. Date/Time Source Result Type Result - Unit Interpretation Reference Range Specimen Type Comment Sep 24, 2024 11:00 AM [facility] HEMOGLOBIN A1C PANEL BLOOD Specimen Type: BLOOD Comment: Values obtained from A1C measurements can vary. For atypical A1C assays, a reported value of 7.0 could actually be between 6.72 and 7.28 if measured by a reference method. A reported value of 9.0 could actually be between 8.73 and 9.27. Ref: http://www.ngsp .org/CAPdata.as p Ordering Provider: LUIS FERNANDO FONTANEZ Report Released Date/Time: Sep 24, 2024 02:09 PM Reporting Lab: [facility] [address] [address] Performing Lab: [facility] [address] [address] HEMOGLOBIN A1C 5.2 4.0-5.6 Sep 24, 2024 11:00 AM [facility] LIPID PANEL, NON FASTING SERUM Specimen Type: SERUM No comment entered. Ordering Provider: LUIS FERNANDO FONTANEZ Report Released Date/Time: Sep 24, 2024 11:37 AM Reporting Lab: [facility] [address] [facility] [address] Performing Lab: [facility] [address] [address] CHOLESTEROL 183 mg/dL TRIGLYCERIDE 59 mg/dL 0-150 LDL calculated 123 mg/dL 0-129 CHOL/HDL 3.8 HDL CHOLESTEROL 48 mg/dL 40-60 Sep 24, 2024 11:00 AM [facility] CBC AND DIFF (AUTO) BLOOD Specimen Type: BLOO D No comment entered. Ordering Provider: LUIS FERNANDO FONTANEZ Report Released Date/Time: Sep 12, 2024 12:12 PM Reporting Lab: [facility] [address] [facility] [address] Performing Lab: [facility] [address] [facility] [address] WBC 6.46 10*3/uL 4.50-11.00 RBC 4.67 10*6/uL 4.23-5.66 HGB 13.5 g/dL 12.8-17 HCT 41.1 39.2-50.4 MCV 88.0 fL 82-99 MCHC 32.8 g/dL 30.8-35.1 PLT 265 10*3/uL 140-360 MPV 9.7 fL 9.2-12.4 RDW-CV 14.2 12.0-16.0 MONO, ABS 0.49 10*3/uL 0.30-1.10 MCH 28.9 pg 26.2-32.6 NEUT % 65.8 43.7-75.8 LYMPH % 24.0 14.0-42.3 MONO % 7.6 5.1-13.7 EOS % 1.9 0.4-6.8 BASO % 0.5 0.1-2.0 NEUT, ABS 4.26 10*3/uL 2.20-7.60 LYMPH, ABS 1.55 10*3/uL 1.00-3.20 EOS, ABS 0.12 10*3/uL 0.03-0.44 BASO, ABS 0.03 10*3/uL 0.01-0.13 IMMATURE GRAN % 0.2 0.0-0.7 IMMATURE GRAN, ABS 0.01 10*3/uL 0.00-0.0 6 NRBC % 0.0 0.0-0.0 NRBC, ABS 0.00 10*3/uL 0.00-0.00 Sep 05, 2024 12:00 AM [facility] OCCULT BLOOD FIT X1 SCREEN(IN-HOUSE) FECES Sp ecimen Type: FECES No comment entered. Ordering Provider: LUIS FERNANDO FONTANEZ Report Released Date/Time: May 25, 2024 10:38 AM Reporting Lab: [facility] [address] [facility] [address] Performing Lab: [facility] [address] [address] OCCULT BLOOD (FIT)#1 OF 1 POSITIVE HH NEG Social History: Smoking Status (Most current) and Tobacco Use (All prior to encounter date) This section includes the most current, and the historical, smoking and tobacco- related health factors from the [place] facility where the Encounter took place. Current Smoking Status This section includes the most current smoking, or tobacco-related health factor, from the [place] facility where the Encounter took place. Date/Time Current Smoking Status Comment Facil ity May 25, 2024 09:30 AM [place]-TOBACCO NEVER U SED CIGARETTES [facility] Tobacco Use History This section includes a history of the smoking, or tobacco-related health factors, that were collected on or before the date of the Encounter. The data comes from the [place] facility where the Encounter took place. Date/Time Smoking Status/Tobacco Use Comment F acility May 25, 2024 09:30 AM [facility]-TOBACCO NEVER U SED OTHER TYPE [facility] [place] [facility] Jan 19, 2023 12:24 PM VA-TOBACCO NEVER USED [facility] [place] [facility] Jan 15, 2021 11:00 AM [facility]TOBACCO NEVER USED [facility] Advance Directives: All historical and current Section Date Range: From patient's date of to the date document was created. This section includes ALL of a patient's completed or amended [place] Advance and Rescinded Directives. The entries below indicate that a directive exists for the patient, but an actual copy is not included with this document. The data comes from all [place] facilities. Date Advance Directives Provider Source Jan 20, 2021 ADVANCE DIRECTIVE BENTON ARAUZ [facility] Encounter Notes: All associated encounter notes This section contains the clinical notes associated to the Encounter. Date/Time Encounter Note(s) Provider Source Sep 25, 2024 04:09 PM [facility] MEDICATION MGT NOTE: LOCAL TITLE: [facility] PHARMACY MEDICATION REVIEW STANDARD TITLE: [facility] MEDICATION MGT NOTE DATE OF NOTE: SEP 25, 2024@16:09 ENTRY DATE: SEP 25, 2024@16:09:17 AUTHOR: CANDICE GEORGE COSIGNER: URGENCY: STATUS: COMPLETED DAVON OLIVIA JR is a 74 year old WHITE MALE. Active Problem Benign prostatic hypertrophy N40.0 08/21/2024 BLAKE MURILLO Dysphagia R13.10 05/25/2024 LUIS FERNANDO FONTANEZ A History of right hip replacement Z9 05/25/2024LUIS FERNANDO A Subdural hematoma R69. 05/25/2024 LEN FONTANEZGH A Obstructive sleep apnea G47.33 01/30/2024LENLUIS FERNANDO A Nephrolithiasis N20.0 01/16/2024 CANDICE JASMINE Excessive salivation K11.7 01/13/2024 HUSEYINLUIS FERNANDO A HTN - Hypertension ([facility] [id number]) I 01/13/2024 HUSEYINLUIS FERNANDO A Constipation K59.00 10/21/2023 CÉSAR JONES Under care of multiple providers R6 10/05/2023 LUIS FERNANDO FONTANEZ A Exposure to potentially hazardous s 08/31/2023 KYLER WARREN A Long-term current use of anticoagul 05/27/2023 TAYLOR ROSA Gingivitis K05.10 05/20/2023 CÉSAR JONES Squamous cell carcinoma of skin C44 01/27/2023 MAY,VLAD Patel Basal cell carcinoma of skin C44.91 01/27/2023October,VLAD Patel Hypotension I95.9, Onset 01/27/2023OctoberVLAD Benign prostatic hyperplasia N40.0, 01/27/2023OctoberVLAD Hematuria R31.9, Onset 01/27/2023October,VLAD P Diverticular disease [...] disease K21 01/19/2023October,VLAD P AF- Atrial Fibrillation ([facility] [id number] 10/05/2023 LUIS FERNANDO FONTANEZ Parkinson's disease G20.A1 02/25/2024 LUIS FERNANDO FONTANEZ Alcohol (-) Tobacco (-) Allergies/ADR: LIPITOR (rhabdoymyolysis), AMOXICILLIN (urticaria), ERYTHROMYCIN (urticaria), FLOMAX (oliguria), SEROQUEL (urticaria), LEVAQUIN (urticaria), CONTRAST MEDIA (urticaria), MIRTAZAPINE, FLECAINIDE (headache) Active and Recently Outpatient Medications (including Supplies): Active Outpatient Medications Status 1) APIXABAN 5MG TAB TAKE ONE TABLET BY MOUTH EVERY 12 HOURS FOR ACTIVE (S) Indication: ATRIAL FIBRILLATION 2) ARTIFICIAL SALIVA ORAL SPRAY SPRAY 2 SPRAYS BY MOUTH EVERY 2 ACTIVE HOURS NEEDED (USE DIRECTED) Indication: FOR DRY MOUTH 3) CARBIDOPA 25/LEVODOPA 100MG SA TAB TAKE 1 TABLET BY MOUTH ACTIVE (S) FOUR TIMES A DAY 4) CARBIDOPA 25/LEVODOPA 100MG TAB TAKE 1 TABLET BY MOUTH FOUR ACTIVE (S) TIMES A DAY 5) CHLORHEXIDINE GLUCONATE 0.12% MOUTHWASH RINSE 15ML BY MOUTH ACTIVE ONCE DAILY - SWISH AND SPIT. DO NOT SWALLOW Indication: FOR INFLAMMATION OF THE GUMS 6) CHOLECALCIF 25MCG (D3-1,000UNIT) TAB TAKE ONE TABLET BY ACTIVE MOUTH ONCE DAILY FOR VITAMIN SUPPLEMENTATION Indication: FOR VITAMIN D DEFICIENCY 7) CLEANSING CLOTH ATTENDS PKT USE ONE WASHCLOTH DIRECTED ACTIVE 7XD Indication: FECAL AND URINE INCONTINENCE 8) DEPEND UNDERWEAR,MAXIMUM,MEN LARGE USE 1 BRIEF DIRECTED ACTIVE THREE TIMES A DAY Indication: INCONTINENCE 9) DIAPER ADULT LARGE EXTRA ABSORBENT USE 1 BRIEF DIRECTED ACTIVE THREE TIMES A DAY Indication: INCONTINENCE 10) GLYCOPYRROLATE 2MG TAB TAKE ONE TABLET BY MOUTH DIRECTED ACTIVE BY PROVIDER 2-3 TIMES A DAY NEEDED FOR SECRETIONS 11) HYDROCHLOROTHIAZIDE 25MG TAB TAKE ONE TABLET BY MOUTH ONCE ACTIVE DAILY Indication: FOR CALCIUM IN URINE 12) HYDROPHILIC (EQV EUCERIN) TOP CREAM APPLY A LIBERAL AMOUNT ACTIVE TOPICALLY ONCE DAILY Indication: FOR DRY SKIN 13) HYDROXYZINE HCL 10MG TAB TAKE ONE TABLET BY MOUTH AT BEDTIME ACTIVE NEEDED FOR SLEEP Indication: INSOMNIA 14) INCONT LINER PREVAIL GUARDS #[id number] USE 1 LINER TOPICALLY ACTIVE TWO TIMES A DAY Indication: INCONTINENCE 15) INCONT LINER,MENS X-HVY SURECARE #[id number] USE 1 LINER ACTIVE TOPICALLY AT BEDTIME Indication: INCONTINENCE 16) WRAP,MALE USE 1 WRAP TOPICALLY AT BEDTIME ACTIVE Indication: INCONTINENCE 17) MELATONIN 5MG CAP/TAB TAKE THREE CAPSULE/TABLETS BY MOUTH AT ACTIVE BEDTIME Indication: FOR INSOMNIA 18) MEMANTINE HCL 10MG TAB TAKE ONE TABLET BY MOUTH TWICE DAILY ACTIVE 19) MIDODRINE HCL 5MG TAB TAKE ONE TABLET BY MOUTH THREE TIMES ACTIVE DAILY NEEDED Indication: FOR LOW BLOOD PRESSURE 20) MULTIVITAMIN/MINERALS CHEW TAB CHEW 1 TABLET BY MOUTH ONCE ACTIVE DAILY Indication: FOR VITAMIN SUPPLEMENTATION 21) MULTIVITS W/MINERALS TAB/CAP (NO VIT K) TAKE 1 TABLET BY ACTIVE MOUTH ONCE DAILY Indication: FOR VITAMIN SUPPLEMENTATION 22) NUTRITION SUPL ENSURE PLUS/VANILLA LIQ DRINK 1 CAN BY MOUTH ACTIVE THREE TIMES A DAY Indication: FOR NUTRITIONAL SUPPLEMENTATION 23) ORAL,SWAB TOOTHETTE USE 1 MOUTH SWAB DIRECTED ONCE DAILY ACTIVE TO USE WITH CHLOREHEXADINE ORAL RINSE 24) POLYETHYLENE GLYCOL 3350 ORAL PWDR TAKE 17 GRAMS(FILL CAP TO ACTIVE 17GM LINE) BY MOUTH ONCE DAILY [MIX WITH 4 TO 8OZ. OF BEVERAGE] Indication: FOR CONSTIPATION 25) RASAGILINE MESYLATE 1MG TAB TAKE ONE TABLET BY MOUTH ONCE ACTIVE DAILY 26) UNDERPAD,BED ULTRASORB [id number] M#3136 USE 2 UNDERPADS ACTIVE TOPICALLY AT BEDTIME Indication: INCONTINENCE 27) URINARY DRAINAGE BAG BARD #[id number] USE 1 DRAINAGE BAG EVERY 7 ACTIVE DAYS Indication: MONTIEL Pending Outpatient Medications Status 1) CATHETER,EXTERNAL MED ROCH#[id number] USE 1 CATHETER (29MM) PENDING URETHRAL AT BEDTIME Indication: URINARY INCONTINENCE Inactive Outpatient Medications Status 1) TAPE,MICROPORE 2IN #1530-2 USE 1 PIECE TOPICALLY ONCE DAILY NEEDED FOR TUBE FEED CONNECTION Indication: FOR TUBE FEED CONNECTION THE ABOVE MEDICATIONS WERE REVIEWED FOR: ADR, potential incompatibilities, compliance, duplication of therapy, and indications on problem list Other Rx/OTC/Herbals: none High Alert Meds: apixaban Look Alike/Sound Alike Meds: hydroxyzine Excessive Duration: none Duplication of therapy: MVI tab and chew Labs: Non-VA labs: 05/04/24: Ca 9.2, PO4 3.1 CBC TREND Collection DT Spec WBC RBC HGB HCT MCV MCH PLT 09/24/2024 11:00 BLOOD 6.46 4.67 13.5 41.1 88.0 28.9 265 07/03/2024 13:30 BLOOD 8.62 4.84 13.6 41.7 86.2 28.1 287 03/28/2024 12:30 BLOOD 9.03 4.16 L 12.1 L 37.7 L 90.6 29.1 279 10/10/2023 14:00 BLOOD 7.10 5.13 15.1 45.5 88.7 29.4 281 05/26/2023 12:00 BLOOD 7.69 4.72 14.0 43.4 91.9 29.7 296 SERUM Jul 03 Jul 03 Mar 28 Oct 09 Reference 2024 2024 2023 2023 13:30 13:30 12:30 14:00 Units Ranges GLUCOSE 80 98 82 mg/dL 65 - 100 BUN 15 21 16 mg/dL 7 - 25 CREATININE 0.88 0.88 1.17 mg/dL .5 - 1.4 Sodium 138 139 139 mmol/L 135 - 145 K+/Pot 3.5 3.4 L 3.5 mmol/L 3.5 - 5 CL 101 102 99 L mmol/L 100 - 110 CO2 28 27 31 H mEq/L 20 - 30 UricAci 5.8 mg/dL 3.5 - 7.2 MAG 1.9 1.8 mg/dL 1.6 - 2.6 eGFR CKD-EPI 202007/03/24 13:30 90 SERUM eGFR CKD-EPI 202003/28/24 12:30 90 SERUM eGFR CKD-EPI 202010/10/23 14:00 65 SERUM eGFR CKD-EPI 202005/26/23 12:00 72 SERUM LIVER PANEL TREND Collection DT Spec AST ALT T BILI ALK DAGMAR T. PROT ALBUMIN 07/03/2024 13:30 SERUM 19 7 0.3 93 7.0 3.5 03/28/2024 12:30 SERUM 21 <6 0.4 72 6.0 3.2 L 10/10/2023 14:00 SERUM 21 14 0.4 77 7.0 3.6 05/26/2023 12:00 SERUM 20 8 0.5 67 6.6 3.4 L LIPID PANEL TREND Collection DT Spec CHOL HDL CHO/HDL LDL-c TRIG 09/24/2024 11:00 SERUM 183 48 3.8 123 59 10/10/2023 14:00 SERUM 210 H 60 3.5 133 H 84 05/26/2023 12:00 SERUM 204 H 56 3.6 135 H 67 HEMOGLOBIN A1C TREND Collection DT Spec HGBA1c 09/24/2024 11:00 BLOOD 5.2 10/10/2023 14:00 BLOOD 5.3 05/26/2023 12:00 BLOOD 5.1 IRON PANEL TREND Collection DT Spec IRON Ferrit 07/03/2024 13:30 SERUM 28 07/03/2024 13:30 SERUM 111 10/10/2023 14:00 SERUM 102 106 05/26/2023 12:00 SERUM 106 95 IRON & TIBC PANEL; SERUM Moraima. Date: 07/03/24 13:30 Test Name Result Units Range TIBC 351 ug/dL 204 - 475 IRON 111 ug/dL 65 - 175 Transferrin Sat 31.6 % 15 - 45 Transferrin (TR 266 mg/dL $S(AG - $S(AGE>6 THYROID PANEL Collection DT Specimen Test Name Result Units Ref Range 07/03/2024 13:30 SERUM TSH 2.21 uIU/mL 0.35 - 5.00 VITAMIN D 25-OH Collection DT Specimen Test Name Result Units Ref Range 07/03/2024 13:30 SERUM VITAMIN D (25-OH) 37 ng/mL 20 - 50 SERUM Dixon Jul 03 Oct 09 Oct 09 Reference 2024 2024 2023 2023 13:30 13:30 14:00 14:00 Units Ranges B12 435 767 pg/mL 200 - 900 FOLATE 8.8 13.68 ng/mL Ref: >=5.2 CrCl: 72.5 mL/min (C&G, adjBW) Vitals: Ht: 65 in [165.1 cm] (04/26/2023 11:00) Wt: 186.2 lb [84.46 kg] (09/24/2024 10:00) BMI: BMI: 31.1 BP: 98/61 (09/24/2024 10:00) HR: 62 (09/24/2024 10:00) Pain: 0 (09/24/2024 10:00) ASSESSMENT: In the last 90 days - No falls/infections noted - [facility] hospital notification 07/12/24: pt seen in ER on 07/06/24 for pain surrounding G-tube site - [facility] RN 08/01/24: pt developed a rash to OTC dandruff shampoo, resolved upon stopping. BP today 110/70. removed G-tube. Requests to change MVI solution back to tablet as pt dislikes the taste of the solution. BP today 110/70 - [facility] RN 08/15/24: BP today 104/60 - [facility] RN 08/28/24: spouse believes pt's rash was due to Crystal Lite, which has not recurred since stopping use. Pt not taking bisacodyl supp - d/c'ed. Pt requesting to switch MVI tablet to chewable form - [facility] CERT[facility]IED [facility] phone 09/12/24: FIT test was positive, but pt declined colonoscopy. Continue apixaban and monitor CBC and sx of bleeding - [facility] RN 09/24/24: BP today 98/61. Denies CP or dizziness. Declines RSV indefinitely - [facility]IED [facility] phone 09/25/24: pt recently seen by [facility], no med changes. Monitor labs for possible Raynaud's INTERVENTIONS/SUGGESTIONS: 1. Patient's medications were reviewed for significant drug interactions. - Concurrent use of GLYCOPYRROLATE and HYDROXYZINE may result in an increased risk of anticholinergic side effects. - Concurrent use of CARBIDOPA/LEVODOPA and HYDROXYZINE may result in an increased risk of STAFF RADIATION THERAPIST depression. - Concurrent use of MIDODRINE and RASAGILINE may result in increased exposure to midodrine. - Concurrent use of CARBIDOPA/LEVODOPA and RASAGILINE may result in increased risk of levodopa adverse effects, including severe orthostatic hypotension. 2. Patient has an estimated creatinine clearance of 72.5 mL/min. LFTs wnl. Current medications are dosed appropriately for the patient's renal and hepatic function. 3. Medications reviewed to determine if medication regimen could contribute to falls. apixaban (increased risk of serious complication from fall) carbidopa/levodopa glycopyrrolate HCTZ hydroxyzine memantine rasagiline To reduce the risk for falls, educate pt re: safe postural transitions and s/s orthostatic hypotension. Also monitor for signs of STAFF RADIATION THERAPIST depression and gait disturbances during ambulation. Could also consider repeating serum vitamin D (25-OHD) level if multiple recent falls/near falls; a goal 25-OHD of at least 30 ng/mL may be associated with fall/fracture risk reduction, although data varies. 4. All medical conditions have appropriate medication treatment. Note: pt followed by neurology, non-[place] nephrology, non-[place] urology, non-[place] cardiology, non-VA dermatology, non-VA GI 5. All medications have an appropriate indication and supporting clinical symptoms. Note: HCTZ primarily used for elevated urinary calcium/kidney stone ppx 6. Adherence Issues: none noted > Medication Organizer Use: No - spouse manages and administers meds in pudding or applesauce > Medications that should stay in original container: none 7. Health Maintenance: > Immunizations: The CDC recommends two doses of the zoster vaccine (Shingrix) for immunocompetent adults >/= 50 (even if previously vaccinated with ZostaVax; if previously received ZostaVax, wait 8 weeks to give Shingrix). Two injections are needed by 2-6 months. Also recommended for pt is RSV vaccine. Patient is otherwise UTD. -> Pt declined Shingrix on 04/17/24, declined RSV on 09/24/24 > Bladder/Bowel: Inquire about incontinence and severity biannually. > Exercise/Physical Activity Vbzhjmde-dd-hslnbxvu aerobic activity 3-5x per week. Weight or resistance exercises. Flexibility activities to maintain ROM. Balance training to improve stability and prevent falls. > Bone Health: Calcium/vitamin D (diet and/or supplement): Men >70 yo: 1200mg Ca/800 international units vit D daily 8. Harm Reduction: > Home O2 AND has petroleum-based topical products on med list: No > Opioid Use: No 9. Continue to review quarterly. 10. Other - Continue to assess willingness to obtain Shingrix vaccine. - Pt has duplicate active orders for MVI tablet and MVI chew tab. Recommend d/c'ing MVI tablet as pt is now using the chew tablet. The details of this review were shared with the IDT in order to assist in creating a care plan designed to provide services focused on the health and well being of the patient. Time Spent: 45 min /sharron/ Candice George PharmD Clinical Balloon Sander Signed: 09/26/2024 09:22 Receipt Acknowledged By: 09/27/2024 17:24 /sharron/ JENNIFER SEGURA ECONOMIC ANALYST [facility] GOVERNMENT GUARD 10/02/2024 07:45 /sharron/ LUIS FERNANDO CHIU HB NURSE PRACTITIONER CANDICE GEORGE [facility]
--- OUTSIDE RECORDS SUMMARY | 2024-10-29 13:39 | XMS_ITS | Encounter Summary ---
Author Name [facility] ([facility]) Organization [facility] Address [address] [place] [id number] Care Team Providers Care Warehouse Receiving Clerk Name Role Phone LUIS FERNANDO FONTANEZ Primary Care Provider Unavailabl e MEGAN SLAUGHTER Unavailable Unavailable CHAPUT, AMANDO Unavailable Unavailable RAIVETricia, RAMIN Unavailable Unavailable [...] PART B Jun 20, 2014 PART B [id number] EAMON OLIVIA ERT PATIENT MEDICARE (WNR) MEDICARE (M) PART A Jun 20, 2014 PART A [id number] EAMON OLIVIA ERT PATIENT MEDICARE (WNR) MEDICARE (M) PART A Jun 20, 2014 PART A [id number] [phone] EAMON OLIVIA ERT PATIENT MEDICARE (WNR) MEDICARE (M) PART B Jun 20, 2014 PART B [id number] [phone] EAMON OLIVIA ERT PATIENT [facility] RX PRESCRIPT ION RX Jun 20, 2023 THPRX [id number] EAMON OLIVIA ERT PATIENT [facility] RX PRESCRIPT ION RX Jun 20, 2022 THPRX [id number] DAVON OLIVIA JR PATIENT [facility] RX PRESCRIPT ION RX Jun 20, 2022 THPRX [id number] EAMON OLIVIA ERT PATIENT [facility] Jun 20, 2017 [id number] EAMON OLIVIA ERT PATIENT [facility] Jun 20, 2017 [id number] DAVON OLIVIA JR PATIENT [facility] Jun 20, 2017 [id number] DAVON OLIVIA JR PATIENT [facility] Jun 20, 2017 USP [id number] EAMON OLIVIA ERT PATIENT [facility] Jun 20, 2023 [id number] EAMON OLIVIA PATIENT Selected Encounter This section includes the information on record at MD for the Encounter. Date/Time Encounter Type Encounter Description Reason Pro vider Source Aug 14, 2024 01:10 PM Outpatient Encounter ADMIN PAT ACTIVTIES (MASNONCT) [...] of theEncounter. The data comes from all [place] treatment facilities. Test Date/Time Test Type Test Details Facility Name Sep 11, 2024 12:00 AM Laboratory - Chemi stry Order OCCULT BLOOD FIT X1 SCREEN(IN-HOUSE) STOOL FECES SP [facility] Lab Results: +/- 30 days of [...] Interpretation Reference Range Specimen Type Comment Sep 05, 2024 12:00 AM [facility] OCCULT BLOOD FIT X1 SCREEN(IN-HOUSE) FECES Sp ecimen Type: FECES No comment entered. Ordering Provider: LUIS FERNANDO FONTANEZ Report Released Date/Time: May 25, 2024 10:38 AM Reporting Lab: [address] [id number] Performing Lab: [address] [id number] OCCULT BLOOD (FIT)#1 OF 1 POSITIVE HH [...] 09:30 AM VA-TOBACCO NEVER U SED CIGARETTES [facility] Tobacco Use History This section includes a history of the smoking, or tobacco-related health factors, that were collected on or before the date of the Encounter. The data comes from the MD facility where the Encounter took place. Date/Time Smoking Status/Tobacco Use Comment F acility May 25, 2024 09:30 AM MD-TOBACCO NEVER U SED OTHER TYPE [facility] Jan 19, 2023 12:24 PM VA-TOBACCO NEVER USED [facility] Jan 15, 2021 11:00 AM VA-TOBACCO [...] Encounter. Date/Time Encounter Note(s) Provider Source Aug 14, 2024 01:10 PM MEDICATION MGT NOT E: LOCAL TITLE: MEDICATION RENEWAL STANDARD TITLE: MEDICATION MGT NOTE DATE OF NOTE: AUG 14, 2024@13:10 ENTRY DATE: AUG 14, 2024@13:10:51 AUTHOR: MARGAUX MOSHER EXP COSIGNER: URGENCY: STATUS: COMPLETED Hello, is requesting a refill on the following prescription(s). Please renew if appropriate.Thank you for your time. 1) HYDROXYZINE HCL 10MG TAB TAKE ONE TABLET BY MOUTH AT BEDTIME ACTIVE NEEDED FOR SLEEP Indication: INSOMNIA /es/ MARGAUX MOSHER Signed: 08/14/2024 13:13 Receipt Acknowledged By: 08/14/2024 15:40 /es/ JENNIFER SEGURA MAIL HANDLER EQUIPMENT OPERATOR [facility] DRY TRANSFER WORKER 08/14/2024 17:03 /es/ ADOLFO COLON [facility] NURSE PRACTITIONER for LUIS FERNANDO Chacko MARGAUX BARBER [facility]
--- OUTSIDE RECORDS SUMMARY | 2024-10-29 13:40 | XMS_ITS | Encounter Summary ---
Author Organization [facility] Address [address] [place] [address] Phone Care Team Providers Care Shade Matcher Name Role Phone Shirin Mcwilliams MD Primary Care Prov ider Encounter Details Date Type Department Care Team (Late st Contact Info) Description 07/05/2024 Documentation Only [facility] [address] [place] [phone] Frances Guevara [address] [place] [phone] Social History Tobacco Use Types Packs/Day Years Used Date Smoking Tobacco: Never Smokeless Tobacco: Never Alcohol Use Standard Drinks/Week Comments Never 0 (1 standard drink = 0.6 oz pur e alcohol) Sex and Gender Information Value Date Recorded Sex Assigned at Not on file Legal Sex Male 5:25 PM EST Gender Identity Not on file Sexual Orientation Not on file Occupation Industry Job Start Date Job End Date [employer] Not on file Not on file Not o n file documented as of this encounter Plan of Treatment Upcoming Encounters Date Type Department Care Team (Late st Contact Info) Description 09/09/2025 2:00 PM EDT Office Visit [facility] [address] Sienna [place] [address] [place] [phone] Emil Davis MD [address] [place] [address] [place] [phone] documented as of this encounter Visit Diagnoses Not on filedocumented in this encounter Care Teams Shade Matcher Relationship Specialty Start Date End Date Shirin Mcwilliams MD [address] [place] [phone] PCP - General 06/30/20 documented as of this encounter
--- OUTSIDE RECORDS SUMMARY | 2024-10-29 13:40 | XMS_ITS ---
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 Hot Mix Name Role Phone HUSEYIN LUIS FERNANDO Primary [...] PART B Jun 20, 2014 PART B [id number] [phone] EAMON OLIVIA ERT PATIENT MEDICARE (WNR) MEDICARE (M) PART A Jun 20, 2014 PART A [id number] EAMON OLIVIA ERT PATIENT MEDICARE (WNR) MEDICARE (M) PART A Jun 20, 2014 PART A [id number] EAMON OLIVIA ERT PATIENT MEDICARE (WNR) MEDICARE (M) PART B Jun 20, 2014 PART B [id number] EAMON OLIVIA ERT PATIENT [facility] RX PRESCRIPT ION RX Jun 20, 2023 THPRX [id number] [phone] EAMON OLIVIA ERT PATIENT [facility] RX PRESCRIPT ION RX Jun 20, 2022 THPRX [id number] DAVON OLIVIA JR PATIENT [facility] RX PRESCRIPT ION RX Jun 20, 2022 THPRX [id number] EAMON OLIVIA ERT PATIENT [facility] Jun 20, 2017 [id number] [phone] EAMON OLIVIA ERT PATIENT [facility] PLAN [facility] E Jun 20, 2017 [id number] [phone] DAVON OLIVIA JR PATIENT [facility] PLAN [facility] Jun 20, 2017 [id number] [phone] DAVON OLIVIA JR PATIENT [facility] Jun 20, 2017 [facility] [id number] EAMON OLIVIA ERT PATIENT [facility] Jun 20, 2023 [id number] EAMON OLIVIA ERT PATIENT Selected Encounter This section includes the information on record at [place] for the Encounter. Date/Time Encounter Type Encounter Description Reason Provider Source Feb 28, 2024 09:50 AM SELF CARE MNGMENT TRAINING [facility] Nursing (RN / LP) ICD-10-CM I10 Essential (primary) hypertension RISING,HEATHE R L E Encounter Template Text not used by [place] Assessments - Encounter Diagnoses This section includes the primary and secondary diagnoses documented for the Encounter. Date/Time Primary/Secondary Diagnosis Diagnosis Name Provider Source Feb 28, 2024 03:06 PM PRIMARY Essential (primary) hypertension RISING,HEATHE R L [facility] [place] [facility] Feb 28, 2024 03:06 PM SECONDARY Calculus of kidney RISING,HEATHE R L [facility] [place] [facility] Feb 28, 2024 03:06 PM SECONDARY Hematuria, unspecified RISING,HEATHE R L [facility] [place] [facility] Feb 28, 2024 03:06 PM SECONDARY Parkinsonism, unspecified RISING,JIE R L [facility] [place] [facility] Feb 28, 2024 03:06 PM SECONDARY Unspecified urinary incontinence RISING,GUILLERMOHE R L [facility] [place] [facility] Plan of Treatment: Future Appointments (+ 6 months) and Future Tests (+/- 45 days) The Plan of Treatment section includes future care activities for the patient from all [place] [facility] This section includes future appointments and future orders which are active, pending or scheduled. Future Appointments This section includes appointments that were scheduled to occur 6 months from the date of the Encounter, up to a maximum of 20 appointments. The data comes from all [place] treatment facilities. Appointment Date/Time Appointment Type Appointme nt Facility Name Mar 15, 2024 10:00 AM AMBULATORY - REHAB MEDICIN E [facility] [place] [facility] Mar 22, 2024 08:00 AM AMBULATORY - MEDICINE [facility] [place] [facility] Mar 22, 2024 01:00 PM AMBULATORY - NONE [facility] [place] [facility] Mar 27, 2024 02:30 PM AMBULATORY - MEDICINE [facility] [place] [facility] Mar 29, 2024 11:00 AM AMBULATORY - REHAB MEDICIN E [facility] [place] [facility] Apr 12, 2024 11:00 AM AMBULATORY - REHAB MEDICIN E [facility] [place] [facility] Apr 26, 2024 09:00 AM AMBULATORY - MEDICINE [facility] [place] [facility] Apr 26, 2024 11:00 AM AMBULATORY - REHAB MEDICIN E [facility] [place] [facility] Jul 10, 2024 12:30 PM AMBULATORY - REHAB MEDICIN E [facility] [place] [facility] Jul 17, 2024 02:00 PM AMBULATORY - REHAB MEDICIN E [facility] [place] [facility] Lab Results: +/- 30 days of [...] Type Comment Mar 28, 2024 12:30 PM [facility] LIVER FUNCTION SERUM Specimen Type: SERUM No comment entered. Ordering Provider: LUIS FERNANDO FONTANEZ Report Released Date/Time: Dec 28, 2023 07:18 AM Reporting Lab: [address] [address] Performing Lab: [address] [address] PROTEIN,TOTAL 6.0 g/dL 6.0-8.3 ALBUMIN 3.2 g/dL L 3.5-5.0 ALKALINE PHOSPHATASE 72 U/L 40-150 AST 21 U/L 5-34 ALT <6 U/L BILIRUBIN, TOTAL 0.4 mg/dL 0.2-1.2 Mar 28, 2024 12:30 PM [facility] BASIC METABOLIC PANEL (non-fasting) SERUM Spe cimen Type: SERUM No comment entered. Ordering Provider: LUIS FERNANDO FONTANEZ Report Released Date/Time: Dec 28, 2023 07:18 AM Reporting Lab: [address] [address] Performing Lab: [address] [address] UREA NITROGEN 21 mg/dL 7-25 GLUCOSE 98 mg/dL 65-100 SODIUM 139 mmol/L 135-145 POTASSIUM 3.4 mmol/L L 3.5-5.0 CHLORIDE 102 mmol/L 100-110 CO2 27 meq/L 20-30 CREATININE, Serum 0.88 mg/dL 0.50-1.40 eGFR(CKD-EPI 2020) 90 mL/min >60 Mar 28, 2024 12:30 PM [facility] CBC AND DIFF (AUTO) BLOOD Specimen Type: BLOO D No comment entered. Ordering Provider: LUIS FERNANDO FONTANEZ Report Released Date/Time: Dec 28, 2023 07:18 AM Reporting Lab: [address] [address] Performing Lab: [address] [address] WBC 9.03 10*3/uL 4.50-11.00 RBC 4.16 10*6/uL [...] AM 97.2 54 101/78 16 96 0 [facility] Social History: Smoking Status (Most current) [...] 2023 12:24 PM VA-TOBACCO NEVER USED [facility] Tobacco Use History This section includes a history of the smoking, or tobacco-related health factors, that were collected on or before the date of the Encounter. The data comes from the [place] facility where the Encounter took place. Date/Time Smoking Status/Tobacco Use Comment F acility Jan 15, 2021 11:00 AM VA-TOBACCO NEVER USED [facility] Advance Directives: All historical and current [...] Jan 20, 2021 ADVANCE DIRECTIVE BENTON ARAUZ [facility] Encounter Notes: All associated encounter notes This section contains the clinical notes associated to the Encounter. Date/Time Encounter Note(s) Provider Source Mar 01, 2024 06:24 PM ADDENDUM: LOCAL TITLE: Addendum STANDARD TITLE: ADDENDUM DATE OF NOTE: MAR 01, 2024@18:24:30 ENTRY DATE: MAR 01, 2024@18:24:32 AUTHOR: AMARIS WESTFALL EXP COSIGNER: URGENCY: STATUS: COMPLETED Thank you, will resend dietary guidelines /es/ AMARIS WESTFALL M.S.,[facility]-THERMAL MOLDER SPEECH-LANGUAGE PATHOLOGIST Signed: 03/01/2024 18:24 Receipt Acknowledged By: 03/06/2024 12:03 /sharron/ RAMIN MENDIETA, PT, MS, ATP [facility] Physical Therapist --- Original Document --- 02/28/24 [facility] RN PROGRESS NOTE: Nursing Progress Note [...] A DAY 13) INCONT LINER,MENS X-HVY SURECARE #[id number] USE 1 LINER ACTIVE TOPICALLY AT BEDTIME [...] MOUTH ACTIVE ONCE DAILY 23) UNDERPAD,BED ULTRASORB [id number] M#3136 USE 2 UNDERPADS ACTIVE TOPICALLY AT [...] the living room upon arrival, spouse present. Hackett well groomed. Dressed appropriately. Poor eye contact. Soft spoken. Michael lift not working correctly. [facility] PT aware and placed consult for a STAT repair. Mountain [facility] came out and assessed Michael 2 weeks ago and stated that it can't be fixed and had to ordered another one. Spouse inquiring on status of delivery. Spouse reports Hackett having open cystoscopy lithotripsy with stent placement this Friday 03/02. Pre Op physical and labs completed by [facility] P[facility]. Spouse requesting [place] catheters. Appetite and fluid intake fair. Spouse chopping up foods with multicraft operator. Not adding ay thickener to liquids. Denies any choking episodes. Spouse reports she checks bp daily and usually runs 120's/80's but there is 1-2 x a week Veterans face becomes flushed and BP 150/s/90 but then comes right down. Hackett denies chest pain, palpations, dizziness. BP during visit 101/78. Geriatric appt on with Dr. Villasenor on 05/28 [facility] Spouse reports had VVC with Speech therapist on 02/13 and they reviewed dysphagia diet and ST told her she would mail out list of foods. Spouse asking this typewriter ribbon winder to reach out to ST because she [...] call community neurologist and have the fax [facility]. Spouse verbalized understanding and has [...] abdomen/pelvis without contrast. CT scan received from [facility], multiple stones, non-obstructing and no hydronephrosis. uses quick change urine management wrap with oversized poise pad. Occasional incontinence of stool. Denies diarrhea/constipation. Skin: Clean, dry and intact. No skin breakdown Home Safety FALLS YES INFECTIONS NO ER/HOSPITALIZATIONS NO Teaching/goals: Refer to nursing summary. Hackett goal is to live at home safely with his as long as possible with assist from his and [facility] Patient verbalizes understanding to above and will call with any concerns or changes in condition. For emergent care call 911. Revisit: 03/27 for chronic disease management, neuro assessment, c/v and c/p assessment, med review, labs /ZACHARIAH Rodriguez [facility] OIL DRILLING ENGINEER Signed: 02/28/2024 15:06 02/28/2024 ADDENDUM STATUS: COMPLETED Michael lift not working correctly. [facility] PT aware and placed consult for a STAT repair. Mountain Guide came out and assessed Michael 2 weeks ago and stated that it can't be fixed and had to ordered another one. Spouse inquiring on status of delivery. /ZACHARIAH Rodriguez [facility] OIL DRILLING ENGINEER Signed: 02/28/2024 15:16 Receipt Acknowledged By: 02/29/2024 08:26 /sharron/ RAMIN MENDIETA, PT, MS, ATP [facility] Physical Therapist 02/28/2024 ADDENDUM STATUS: COMPLETED Spouse reports Hackett had VVC with Speech therapist on 02/13 and they reviewed dysphagia diet and ST told her she would mail out list of foods. Spouse asking this typewriter ribbon winder to reach out to ST because she hasn't received anything in the mail. ST recommended barium swallow. /ZACHARIAH Rodriguez [facility] OIL DRILLING ENGINEER Signed: 02/28/2024 15:17 Receipt Acknowledged By: 03/01/2024 18:24 /sharron/ AMARIS WESTFALL M.S.,[facility]-THER[facility]AL [facility] SPEECH-LANGUAGE PATHOLOGIST 02/29/2024 ADDENDUM STATUS: COMPLETED Spoke to patient's spouse re: Michael Lift and spouse stated that crystal growing technician evaluated Michael Lift on 02/23/24. Vendor is ordering a new Michael Lift. Will follow up for an approximate delivery date. /sharron/ RAMIN MENDIETA, PT, MS, ATP [facility] Physical Therapist Signed: 02/29/2024 08:30 AMARIS WESTFALL [facility] [place] [facility] Feb 28, 2024 03:17 PM ADDENDUM: LOCAL TITLE: Addendum STANDARD TITLE: ADDENDUM DATE OF NOTE: FEB 28, 2024@15:17:21 ENTRY DATE: FEB 28, 2024@15:17:23 AUTHOR: JENNIFER SEGURA COSIGNER: URGENCY: STATUS: COMPLETED Spouse reports Hackett had VVC with Speech therapist on 02/13 and they reviewed dysphagia diet and ST told her she would mail out list of foods. Spouse asking this typewriter ribbon winder to reach out to ST because she hasn't received anything in the mail. ST recommended barium swallow. /sharron/ JENNIFER SEGURA PAIN MEDICINE PHYSICIAN [facility] OIL DRILLING ENGINEER Signed: 02/28/2024 15:17 Receipt Acknowledged By: 03/01/2024 18:24 /sharron/ AMARIS WESTFALL M.S.,[facility]-THERMAL MOLDER SPEECH-LANGUAGE PATHOLOGIST --- Original Document --- 02/28/24 HB RN [...] TIMES A DAY 13) INCONT LINER,[id number] USE 1 LINER ACTIVE TOPICALLY AT BEDTIME [...] MOUTH ACTIVE ONCE DAILY 23) UNDERPAD,BED ULTRASORB [id number] M#4860 USE 2 UNDERPADS ACTIVE TOPICALLY AT BEDTIME [...] in patient's home at time of visit. Hackett identified by: Full Name, Facial Recognition Length [...] and placed consult for a STAT repair. Mountain Guide came out and assessed Michael 2 weeks ago and stated that it can't be fixed and had to ordered another one. Spouse inquiring on status of delivery. Spouse reports having open cystoscopy lithotripsy with stent placement this Friday 03/02. Pre Op physical and labs completed by [facility]. Spouse requesting [place] catheters. Appetite and fluid intake fair. Spouse chopping up foods with multicraft operator. Not adding ay thickener to liquids. Denies any choking episodes. Spouse reports she checks bp daily and usually runs 120's/80's but there is 1-2 x a week Veterans face becomes flushed and BP 150/s/90 but then comes right down. Hackett denies chest pain, palpations, dizziness. BP during visit 101/78. Geriatric appt on with Dr. Villasenor on 05/28 [facility] Spouse reports had VVC with Speech therapist on 02/13 and they reviewed dysphagia diet and ST told her she would mail out list of foods. Spouse asking this typewriter ribbon winder to reach out to ST because she hasn't received anything in the mail. ST recommended barium swallow. Spouse reports fall 4 days, during the day, living room, landed on buttock bruise to center of butt, and Hackett was able to get himself up. Spouse was outside doing yard work when fall happened. She states he like to get his DVD's out of the cabinet and he was sitting on the stool and fell off. Discussed with spouse putting DVD's in a place Hackett can easily reach. manages medications. Reviewed medication regimen. Spouse administering meds as directed. Updated med list left in the home. Reviewed with spouse glycopyrrolate script and hydroxyzine script has 0 refills. Instructed spouse to call community neurologist and have the fax [facility] pharmacy. Spouse verbalized understanding and has number. Offered flu vaccine declined due to having surgery this Tuesday. The plan is to administer next home visit. Spouses Refuses shingles vaccine. Doesn't want Hackett to have this vaccine. Blood Pressure: 100/58 [...] abdomen/pelvis without contrast. CT scan received from [facility], multiple stones, non-obstructing and no hydronephrosis. uses quick change urine management wrap with oversized poise pad. Occasional incontinence of stool. Denies diarrhea/constipation. Skin: Clean, dry and intact. No skin breakdown Home Safety FALLS YES INFECTIONS NO ER/HOSPITALIZATIONS NO Teaching/goals: Refer to nursing summary. Hackett goal is to live at home safely with his as long as possible with assist from his and [facility] Patient verbalizes understanding to above and will call with any concerns or changes in condition. For emergent care call 911. Revisit: 03/27 for chronic disease management, neuro assessment, c/v and c/p assessment, med review, labs /ZACHARIAH Rodriguez [facility] OIL DRILLING ENGINEER Signed: 02/28/2024 15:06 02/28/2024 ADDENDUM STATUS: COMPLETED Michael lift not working correctly. [facility] PT aware and placed consult for a STAT repair. Mountain Guide came out and assessed Michael 2 weeks ago and stated that it can't be fixed and had to ordered another one. Spouse inquiring on status of delivery. /ZACHARIAH Rodriguez [facility] OIL DRILLING ENGINEER Signed: 02/28/2024 15:16 Receipt Acknowledged By: 02/29/2024 08:26 /consuelo MENDIETA PT, MS, ATP [facility] Physical Therapist 02/29/2024 ADDENDUM STATUS: COMPLETED Spoke to patient's spouse re: Michael Lift and spouse stated that crystal growing technician evaluated Michael Lift on 02/23/24. Vendor is ordering a new Michael Lift. Will follow up for an approximate delivery date. /consuelo MENDIETA, PT, MS, ATP [facility] Physical Therapist Signed: 02/29/2024 08:30 JENNIFER SEGURA [facility] Feb 28, 2024 03:16 PM ADDENDUM: LOCAL TITLE: Addendum STANDARD TITLE: ADDENDUM DATE OF NOTE: FEB 28, 2024@15:16:19 ENTRY DATE: FEB 28, 2024@15:16:20 AUTHOR: JENNIFER SEGURA EXP COSIGNER: URGENCY: STATUS: COMPLETED Michael lift not working correctly. [facility] PT aware and placed consult for a STAT repair. Mountain Guide came out and assessed Michael 2 weeks ago and stated that it can't be fixed and had to ordered another one. Spouse inquiring on status of delivery. /ZACHARIAH Rodriguez [facility] OIL DRILLING ENGINEER Signed: 02/28/2024 15:16 Receipt Acknowledged By: 02/29/2024 08:26 /es/ RAMIN MENDIETA, PT, MS, ATP [facility] Physical Therapist --- Original Document --- 02/28/24 [facility] RN PROGRESS NOTE: Nursing Progress Note [...] A DAY 13) INCONT LINER,MENS X-HVY SURECARE #[id number] USE 1 LINER ACTIVE TOPICALLY AT BEDTIME [...] MOUTH ACTIVE ONCE DAILY 23) UNDERPAD,BED ULTRASORB [id number] M#3136 USE 2 UNDERPADS ACTIVE TOPICALLY AT [...] in patient's home at time of visit. Hackett identified by: Full Name, Facial Recognition Length of visit in home: 50 Problem addressed for this visit: PD, fall, flu shot Specimen(s) collected during this visit: None NURSING SUMMARY: RNCM made home visit for chronic disease management, neuro assessment, c/v and c/p assessment. Hackett sitting in his recliner in the living room upon arrival, spouse present. well groomed. Dressed appropriately. Poor eye contact. Soft spoken. Michael lift not working correctly. [facility] PT aware and placed consult for a STAT repair. Mountain Guide came out and assessed Michael 2 weeks ago and stated that it can't be fixed and had to ordered another one. Spouse inquiring on status of delivery. Spouse reports Hackett having open cystoscopy lithotripsy with stent placement this Friday 03/02. Pre Op physical and labs completed by [facility] P[facility]. Spouse requesting [place] catheters. Appetite and fluid intake fair. Spouse chopping up foods with multicraft operator. Not adding ay thickener to liquids. Denies any choking episodes. Spouse reports she checks bp daily and usually runs 120's/80's but there is 1-2 x a week Veterans face becomes flushed and BP 150/s/90 but then comes right down. denies chest pain, palpations, dizziness. BP during visit 101/. Geriatric appt on with Dr. Villasenor on 05/28 [facility] Spouse reports Hackett had VVC with Speech therapist on 02/13 and they reviewed dysphagia diet and ST told her she would mail out list of foods. Spouse asking this typewriter ribbon winder to reach out to ST because she [...] with spouse putting DVD's in a place Hackett can easily reach. manages medications. Reviewed medication regimen. Spouse administering meds as directed. Updated med list left in the home. Reviewed with spouse glycopyrrolate script and hydroxyzine script has 0 refills. Instructed spouse to call community neurologist and have the fax [facility] pharmacy. Spouse verbalized understanding and has number. Offered flu vaccine declined due to Hackett having surgery this Tuesday. The plan is to administer next home visit. Spouses Refuses shingles vaccine. Doesn't want Hackett to have this vaccine. Blood Pressure: 100/58 [...] abdomen/pelvis without contrast. CT scan received from [facility], multiple stones, non-obstructing and no hydronephrosis. uses quick change urine management wrap with oversized poise pad. Occasional incontinence of stool. Denies diarrhea/constipation. Skin: Clean, dry and intact. No skin breakdown Home Safety FALLS YES INFECTIONS NO ER/HOSPITALIZATIONS NO Teaching/goals: Refer to nursing summary. Hackett goal is to live at home safely with his as long as possible with assist from his and [facility] Patient verbalizes understanding to above and will call with any concerns or changes in condition. For emergent care call 911. Revisit: 03/27 for chronic disease management, neuro assessment, c/v and c/p assessment, med review, labs /ZACHARIAH Rodriguez [facility] OIL DRILLING ENGINEER Signed: 02/28/2024 15:06 02/28/2024 ADDENDUM STATUS: COMPLETED Spouse reports had VVC with Speech therapist on 02/13 and they reviewed dysphagia diet and ST told her she would mail out list of foods. Spouse asking this typewriter ribbon winder to reach out to ST because she hasn't received anything in the mail. ST recommended barium swallow. /ZACHARIAH Rodriguez [facility] OIL DRILLING ENGINEER Signed: 02/28/2024 15:17 Receipt Acknowledged By: * AWAITING SIGNATURE * AMARIS WESTFALL HEATHER L [facility] [place] [facility] Feb 28, 2024 03:11 PM NURSING FALL RISK ASSESSMENT NOTE: LOCAL TITLE: [facility] POST FALL ASSESSMENT NOTE STANDARD TITLE: NURSING FALL RISK ASSESSMENT NOTE DATE OF NOTE: FEB 28, 2024@15:11 ENTRY DATE: FEB 28, 2024@15:11:27 AUTHOR: JENNIFER SEGURA EXP COSIGNER: URGENCY: STATUS: COMPLETED HB FALL ASSESSMENT NOTE Date of Fall: 02/24/24 Time of Fall: PM Buffing Wheel Presser: Jennifer Segura Fall was witnessed: No Description of Fall: Where: living room How: fell over Injury: Yes Location: small bruise on buttock Side: N/A Other Information Pertinent to Fall: Spouse reports fall 4 days, during the day, living room, landed on buttock bruise to center of butt, and Hackett was able to get himself up. Level of Injury: 1 = Minor (bruises, scrapes, no increase in level of care) Symptoms Prior to Fall: none Assistive Device in Use at Time of Fall: none Contributing Factors at time of fall: gait or imbalance Environmental Factors: none Contributing diagnosis to current fall: neurological (ALS, MS, Parkinson's) If fall occurred while HC/HB staff was providing direct patient care in the home, report on Joint Patient Safety Reporting Site (JPSR) found on [facility] Intranet home page. No, not applicable Is patient currently receiving PT/OT services: No Pt referred to PT/OT: No Patient Declines Interventions: Follow-up Medical Visit, PCP Notified, [facility] PSA Notified, Interdisciplinary Care Plan Updated, Education was provided to patient and/or family regarding risk factors and prevention of future falls. Program Follow-up: Interdisciplinary Team reviews recent falls and modifies Patient's care plan as appropriate. It Business Analyst (or designee) tracks all falls, observes trends, and modifies Falls Prevention Plan as needed. Fall data is reported to [facility] [employer] on a quarterly basis. /sharron/ JENNIFER SEGURA PAIN MEDICINE PHYSICIAN [facility] OIL DRILLING ENGINEER Signed: 02/28/2024 15:15 Receipt Acknowledged By: 02/29/2024 08:21 /es/ DANIELLE FLORES OTR/Tricia [facility] OCCUPATIONAL THERAPIST 02/28/2024 15:26 /es/ KALYAN BARBER [facility] AUTO FINANCE SALES REP for MARIAH DIVINA FLORES 02/29/2024 06:46 /es/ AMANDO OHARA CONSTRUCTION OPERATIONS MANAGER [facility] 02/28/2024 15:26 /es/ KALYAN BARBER [facility] AUTO FINANCE SALES REP 03/08/2024 08:29 /es/ SPRING NEVES, PT [facility] PHYSICAL THERAPIST 02/29/2024 11:50 /es/ RAMIN MENDIETA, PT, MS, ATP [facility] Physical Therapist 02/29/2024 07:26 /es/ LUIS FERNANDO FONTANEZ SCREENER OPERATOR-C [facility] NURSE PRACTITIONER JENNIFER SEGURA [facility] Feb 28, 2024 09:56 AM HB NURSING NOTE: LOCAL TITLE: [facility] RN PROGRESS NOTE STANDARD TITLE: HB NURSING NOTE DATE OF NOTE: FEB 28, [...] A DAY 13) INCONT LINER,MENS X-HVY SURECARE #[id number] USE 1 LINER ACTIVE TOPICALLY AT BEDTIME [...] MOUTH ACTIVE ONCE DAILY 23) UNDERPAD,BED ULTRASORB [id number] M#3136 USE 2 UNDERPADS ACTIVE TOPICALLY AT [...] in patient's home at time of visit. Hackett identified by: Full Name, Facial Recognition Length [...] and placed consult for a STAT repair. Mountain Guide came out and assessed Michael 2 weeks ago and stated that it can't be fixed and had to ordered another one. Spouse inquiring on status of delivery. Spouse reports having open cystoscopy lithotripsy with stent placement this Friday 03/02. Pre Op physical and labs completed by [facility] PCP. Spouse requesting [place] catheters. Appetite and fluid intake fair. Spouse chopping up foods with multicraft operator. Not adding ay thickener to liquids. Denies any choking episodes. Spouse reports she checks bp daily and usually runs 120's/80's but there is 1-2 x a week Veterans face becomes flushed and BP 150/s/90 but then comes right down. denies chest pain, palpations, dizziness. BP during visit /. Geriatric appt on with Dr. Villasenor on 05/28 [employer] Spouse reports [place] had VVC with Speech therapist on 02/13 and they reviewed dysphagia diet and ST told her she would mail out list of foods. Spouse asking this typewriter ribbon winder to reach out to ST because she [...] call community neurologist and have the fax [facility] pharmacy. Spouse verbalized understanding and has number. Offered flu vaccine declined due to having surgery this Tuesday. The plan is to administer next home visit. Spouses Refuses shingles vaccine. Doesn't want [place] to have this vaccine. Blood Pressure: 100/58 [...] abdomen/pelvis without contrast. CT scan received from [facility], multiple stones, non-obstructing and no hydronephrosis. uses quick change urine management wrap with oversized poise pad. Occasional incontinence of stool. Denies diarrhea/constipation. Skin: Clean, dry and intact. No skin breakdown Home Safety FALLS YES INFECTIONS NO ER/HOSPITALIZATIONS NO Teaching/goals: Refer to nursing summary. goal is to live at home safely with his as long as possible with assist from his and [facility] Patient verbalizes understanding to above and will call with any concerns or changes in condition. For emergent care call 911. Revisit: 03/27 for chronic disease management, neuro assessment, c/v and c/p assessment, med review, labs /ZACHARIAH Rodriguez OIL DRILLING ENGINEER Signed: 02/28/2024 15:06 02/28/2024 ADDENDUM STATUS: COMPLETED Michael lift not working correctly. [facility] PT aware and placed consult for a STAT repair. [facility] [employer] came out and assessed Michael 2 weeks ago and stated that it can't be fixed and had to ordered another one. Spouse inquiring on status of delivery. /ZACHARIAH Rodriguez HBDARSHAN OIL DRILLING ENGINEER Signed: 02/28/2024 15:16 Receipt Acknowledged By: 02/29/2024 08:26 /sharron/ RAMIN MENDIETA PT, MS, ATP [facility] Physical Therapist 02/28/2024 ADDENDUM STATUS: COMPLETED Spouse reports had VVC with Speech therapist on 02/13 and they reviewed dysphagia diet and ST told her she would mail out list of foods. Spouse asking this typewriter ribbon winder to reach out to ST because she hasn't received anything in the mail. ST recommended barium swallow. /sharron/ JENNIFER SEGURA PAIN MEDICINE PHYSICIAN HB OIL DRILLING ENGINEER Signed: 02/28/2024 15:17 Receipt Acknowledged By: 03/01/2024 18:24 /sharron/ AMARIS WESTFALL M.S.,[facility] SPEECH-LANGUAGE PATHOLOGIST 02/29/2024 ADDENDUM STATUS: COMPLETED Spoke to patient's spouse re: Michael Lift and spouse stated that crystal growing technician evaluated Michael Lift on 02/23/24. Vendor is ordering a new Michael Lift. Will follow up for an approximate delivery date. /sharron/ RAMIN MENDIETA PT, MS, ATP [facility] Physical Therapist Signed: 02/29/2024 08:30 03/01/2024 ADDENDUM STATUS: COMPLETED Thank you, will resend dietary guidelines /sharron/ AMARIS WESTFALL M.S.,[facility] SPEECH-LANGUAGE PATHOLOGIST Signed: 03/01/2024 18:24 Receipt Acknowledged By: * AWAITING SIGNATURE * RAMIN MENDIETA HEATHER L [facility]
--- OUTSIDE RECORDS SUMMARY | 2024-10-29 13:40 | XMS_ITS | Encounter Summary ---
Author Name [facility] [place] [facility] [place] Address [address] [place] [address] Care Team Providers Care Cnc Service Engineer Name Role Phone LUIS FERNANDO FONTANEZ Primary [...] PART B Jun 20, 2014 PART B [id number] [phone] EAMON OLIVIA ERT PATIENT MEDICARE (WNR) MEDICARE (M) PART A Jun 20, 2014 PART A [id number] EAMON OLIVIA ERT PATIENT MEDICARE (WNR) MEDICARE (M) PART A Jun 20, 2014 PART A [id number] [phone] EAMON OLIVIA ERT PATIENT MEDICARE (WNR) MEDICARE (M) PART B Jun 20, 2014 PART B [id number] [phone] EAMON OLIVIA ERT PATIENT OPTUM RX PRESCRIPT ION RX Jun 20, 2023 THPRX [id number] EAMON OLIVIA ERT PATIENT [facility] RX PRESCRIPT ION RX Jun 20, 2022 THPRX [id number] DAVON OLIVIA JR PATIENT OPTUM RX PRESCRIPT ION RX Jun 20, 2022 THPRX [id number] [phone] EAMON OLIVIA ERT PATIENT [facility] MAR Jun 20, 2017 [id number] EAMON OLIVIA ERT PATIENT [facility] TON PEÑA E Jun 20, 2017 [id number] DAVON OLIVIA JR PATIENT [facility] TON PEÑA E Jun 20, 2017 [id number] [phone] DAVON OLIVIA JR PATIENT [facility] USP Jun 20, 2017 USP [id number] [phone] EAMON OLIVIA ERT PATIENT [facility] TON Jun 20, 2023 [id number] [phone] EAMON OLIIVA ERT PATIENT Selected Encounter This section includes the information on record at [place] for the Encounter. Date/Time Encounter Type Encounter Description Reason Provider Source Jul 04, 2024 10:00 AM OFF/OP CNSLTJ NEW/EST MOD 40 HOME TREATMENT SERVICES ICD-10-CM R13.10 Dysphagia, unspecified KAN KWON [facility] Encounter Template Text not used by [place] Assessments - Encounter Diagnoses This section includes the primary and secondary diagnoses documented for the Encounter. Date/Time Primary/Secondary Diagnosis Diagnosis Name Provider Source Jul 04, 2024 01:29 PM PRIMARY Dysphagia, unspecified KAN KWON [facility] [place] [facility] Jul 04, 2024 01:29 PM SECONDARY Encounter for palliative care KAN KWON [facility] [place] [facility] Jul 04, 2024 01:29 PM SECONDARY Parkinson's dis w/o dyskinesia, w/o mention of fluctuations KAN KWON [facility] [place] [facility] Plan of Treatment: Future Appointments (+ 6 [...] 12:30 PM AMBULATORY - REHAB MEDICIN E [facility] Jul 17, 2024 02:00 PM AMBULATORY - REHAB MEDICIN E [facility] Lab Results: +/- 30 days of the [...] Unit Interpretation Reference Range Specimen Type Comment Jul 03, 2024 01:[address] [facility] FOLATE (WROX) SERUM Specimen Type: SERUM No comment entered. Ordering Provider: LUIS FERNANDO FONTANEZ Report Released Date/Time: May 25, 2024 08:50 AM Reporting Lab: [facility] [place] [facility] [address] [address] Performing Lab: [facility] [address] [facility] [address] FOLATE (WROX) 8.8 ng/mL >5.2 Jul 03, 2024 01:[address] [facility] PTH INTACT SERUM Specimen Type: SERUM No comment entered. Ordering Provider: LUIS FERNANDO FONTANEZ Report Released Date/Time: Jun 18, 2024 08:46 AM Reporting Lab: [facility] [place] [facility] [address] [address] Performing Lab: [facility] [address] [address] PTH INTACT 34.0 pg/mL 8.7-77.1 Jul 03, 2024 01:30 PM [facility] MAGNESIUM SERUM Specimen Type: SERUM No comment entered. Ordering Provider: LUIS FERNANDO FONTANEZ Report Released Date/Time: May 25, 2024 08:50 AM Reporting Lab: [address] [address] Performing Lab: [address] [address] MAGNESIUM 1.9 mg/dL 1.6-2.6 Jul 03, 2024 01:30 PM [facility] LIVER FUNCTION SERUM Specimen Type: SERUM No comment entered. Ordering Provider: LUIS FERNANDO FONTANEZ Report Released Date/Time: May 25, 2024 08:50 AM Reporting Lab: [address] [address] Performing Lab: [address] [address] PROTEIN,TOTAL 7.0 g/dL 6.0-8.3 ALBUMIN 3.5 g/dL 3.5-5.0 ALKALINE PHOSPHATASE 93 U/L 40-150 AST 19 U/L 5-34 ALT 7 U/L BILIRUBIN, TOTAL 0.3 mg/dL 0.2-1.2 Jul 03, 2024 01:30 PM [facility] BASIC METABOLIC PANEL (non-fasting) SERUM Spe cimen Type: SERUM No comment entered. Ordering Provider: LUIS FERNANDO FONTANEZ Report Released Date/Time: May 25, 2024 08:50 AM Reporting Lab: [address] [address] Performing Lab: [address] [address] UREA NITROGEN 15 mg/dL 7-25 GLUCOSE 80 mg/dL 65-100 SODIUM 138 mmol/L 135-145 POTASSIUM 3.5 mmol/L 3.5-5.0 CHLORIDE 101 mmol/L 100-110 CO2 28 meq/L 20-30 CREATININE, Serum 0.88 mg/dL 0.50-1.40 eGFR(CKD-EPI 2020) 90 mL/min >60 Jul 03, 2024 01:[address] [facility] [place] [facility] VITAMIN B12 SERUM Specimen Type: SERUM No comment entered. Ordering Provider: LUIS FERNANDO FONTANEZ Report Released Date/Time: May 25, 2024 08:50 AM Reporting Lab: [facility] [place] [facility] [address] [address] Performing Lab: [facility] [place] [facility] [address] [address] VITAMIN B12 435 pg/mL 200-900 Jul 03, 2024 01:30 PM [facility] VITAMIN D (25-OH) SERUM Specimen Type: SERUM No comment entered. Ordering Provider: LUIS FERNANDO FONTANEZ Report Released Date/Time: May 25, 2024 08:50 AM Reporting Lab: [facility] TR[facility] [address] [address] Performing Lab: [facility] [address] [address] VITAMIN D (25-OH) 37 ng/mL 20-50 Jul 03, 2024 01:30 PM [facility] FERRITIN SERUM Specimen Type: SERUM No comment entered. Ordering Provider: LUIS FERNANDO FONTANEZ Report Released Date/Time: May 25, 2024 08:50 AM Reporting Lab: [facility] [address] [address] Performing Lab: [place] [facility] [facility] [address] [address] FERRITIN 28 ng/mL 20-300 Jul 03, 2024 01:30 PM [facility] IRON & TIBC PANEL SERUM Specimen Type: SERUM No comment entered. Ordering Provider: LUIS FERNANDO FONTANEZ Report Released Date/Time: May 25, 2024 08:50 AM Reporting Lab: [facility] [address] [address] Performing Lab: [place] CN[facility] TRN [facility] [address] [address] TIBC 351 ug/dL 204-475 IRON 111 ug/dL 40-160 Transferrin Saturation 31.6 20.0-50.0 Transferrin (TRF) 266 mg/dL 200-360 Jul 03, 2024 01:30 PM [facility] RETICULOCYTES BLOOD Specimen Type: BLOOD No comment entered. Ordering Provider: LUIS FERNANDO FONTANEZ Report Released Date/Time: May 25, 2024 08:50 AM Reporting Lab: [facility] [address] [address] Performing Lab: [facility] [address] [address] RETIC % 0.9 0.6-2.0 RETIC, ABS 44.5 10*3/uL 30.0-90.0 RET-HE 31.3 pg 27.9-42.0 Jul 03, 2024 01:[address] [facility] TSH SERUM Specimen Type: SERUM No comment entered. Ordering Provider: LUIS FERNANDO FONTANEZ Report Released Date/Time: May 25, 2024 08:50 AM Reporting Lab: [facility]ITAL[facility]ITALTRN [facility] [address] [address] Performing Lab: [facility] [address] [address] TSH 2.21 u[IU]/mL 0.35-5.00 Jul 03, 2024 01:[address] [facility] PO4 SERUM Specimen Type: SERUM No comment entered. Ordering Provider: LUIS FERNANDO FONTANEZ Report Released Date/Time: May 25, 2024 10:21 AM Reporting Lab: [facility]ITAL[facility]ITALTRN [facility] [address] [address] Performing Lab: [facility] [address] [address] PO4 2.8 mg/dL 2.5-5.0 Jul 03, 2024 01:[address] [facility] URIC ACID SERUM Specimen Type: SERUM No comment entered. Ordering Provider: LUIS FERNANDO FONTANEZ Report Released Date/Time: Jun 18, 2024 08:46 AM Reporting Lab: [facility] [address] [address] Performing Lab: [facility] [address] [address] URIC ACID 5.8 mg/dL 3.5-7.2 Jul 03, 2024 01:30 PM [facility] MAGNESIUM SERUM Specimen Type: SERUM No comment entered. Ordering Provider: LUIS FERNANDO FONTANEZ Report Released Date/Time: Jun 18, 2024 08:46 AM Reporting Lab: [facility] [address] [address] Performing Lab: [address] [address] MAGNESIUM 1.8 mg/dL 1.6-2.6 Jul 03, 2024 01:30 PM [facility] CBC AND DIFF (AUTO) BLOOD Specimen Type: BLOO D No comment entered. Ordering Provider: LUIS FERNANDO FONTANEZ Report Released Date/Time: May 25, 2024 08:50 AM Reporting Lab: [facility] [address] [address] Performing Lab: [address] [address] WBC 8.62 10*3/uL 4.50-11.00 RBC 4.84 10*6/uL 4.23-5.66 HGB 13.6 g/dL 12.8-17 HCT 41.7 39.2-50.4 MCV 86.2 fL 82-99 MCHC 32.6 g/dL 30.8-35.1 PLT 287 10*3/uL 140-360 RDW-CV 13.5 12.0-16.0 MONO, ABS 0.62 10*3/uL 0.30-1.10 MCH 28.1 pg 26.2-32.6 NEUT % 68.1 43.7-75.8 LYMPH % 22.7 14.0-42.3 MONO % 7.2 5.1-13.7 EOS % 1.2 0.4-6.8 BASO % 0.5 0.1-2.0 NEUT, ABS 5.87 10*3/uL 2.20-7.60 LYMPH, ABS 1.96 10*3/uL 1.00-3.20 EOS, ABS 0.10 10*3/uL 0.03-0.44 BASO, ABS 0.04 10*3/uL 0.01-0.13 IMMATURE GRAN % 0.3 0.0-0.7 IMMATURE GRAN, ABS 0.03 10*3/uL 0.00-0.0 6 NRBC % 0.0 0.0-0.0 NRBC, ABS 0.00 10*3/uL 0.00-0.00 Vital Signs: All taken on the encounter date This section contains inpatient and outpatient Vital Signs collected on the date of the Encounter. Date/Time Temperature Pulse Blood Pressure Respiratory Rate SP02 Pain Height Weight Body Mass Index Source Jul 04, 2024 09:00 AM 97.6 62 110/62 16 98 0 [place] [facility] Social History: Smoking Status (Most [...] 09:30 AM VA-TOBACCO NEVER U SED CIGARETTES [facility] Tobacco Use History This section includes a history of the smoking, or tobacco-related health factors, that were collected on or before the date of the Encounter. The data comes from the [place] facility where the Encounter took place. Date/Time Smoking Status/Tobacco Use Comment F acility May 25, 2024 09:30 AM VA-TOBACCO NEVER U SED OTHER TYPE [place] [facility] [place] [facility] Jan 19, 2023 12:24 PM VA-TOBACCO NEVER USED [place] [facility] [facility] Jan 15, 2021 11:00 AM VA-TOBACCO NEVER USED [facility] Advance Directives: All historical and current [...] Jan 20, 2021 ADVANCE DIRECTIVE AALIYAHBENTON ELZA Paulino Ginna CNTRL [facility] Encounter Notes: All associated encounter notes This section contains the clinical notes associated to the Encounter. Date/Time Encounter Note(s) Provider Source Jul 04, 2024 12:54 PM PALLIATIVE CARE CONSULT: LOCAL TITLE: CONSULT REPORT/PALLIATIVE STANDARD TITLE: PALLIATIVE CARE CONSULT DATE OF NOTE: JUL 04, 2024@12:54 ENTRY DATE: JUL 04, 2024@12:54:31 AUTHOR: KAN KWON COSIGNER: URGENCY: STATUS: COMPLETED 1. REASON FOR CONSULT: REVIEW PALLIATIVE/ HOSPICE OPTIONS Met in home with and spouse [place] with very limited speech, spouse provides hx. Following return home in May after challenging hospital and snf/rehab stay (R hip fracture/repair) [place] was quite debilitated. He had a new feeding tube, he had lost weight and was very frail. He has since been gaining weight, utilizes Michael list & ambulates with rollator and assist/gait belt. Has worked with speech therapy and vocalization is improving. Spouse working on arrangements to have G tube removed as is eating well on modified diet and taking meds po. Spouse is noticing ongoing gradual cognitive decline. There had been hallucinations in the past but none recently. No behavioral concerns. Sleep is better with current dose of melatonin. Due to mouth often being open/Parkinson's, CPAP mask does not always stay on well. Gait belt sometimes irritates G tube site. Dependent in all ADLs, has CIVIL DESIGN SPECIALIST assistance 2. SYMPTOM AND QUALITY OF LIFE ASSESSMENT: Symptom Present? Rating (Y/N) Pain NO Shortness of Breath NO Nausea NO Constipation NO Dry mouth Feeling Drowsy Difficulty sleeping [2] Somewhat Difficulty concentrating [2] Somewhat Lack of energy [2] Somewhat Lack of appetite Feeling sad NO Feeling nervous NO Other: drooling improved with meds. Family or staff concerns of symptoms: gradual cognitive decline Quality of Life Assessment: Comments: limited words, indicates happy to be home and happy with daily routines PMH reviewed Soc: lives w spouse, no tobacco or etoh 3. ACTIVE MEDS: Active Outpatient Medications (including Supplies): Active Outpatient [...] FOUR ACTIVE (S) TIMES A DAY 5) CATH,EXTERNAL EXTENDED WEAR SMALL H#3869 USE 1 CATHETER ACTIVE URETHRAL ONCE DAILY [...] THREE TIMES A DAY Indication: INCONTINENCE 10) FEED BAG W/PUMP SET ENFIT COVID#113160 USE 1 BAG VIA G-TUBE ACTIVE ONCE DAILY Indication: NUTRITION 11) FEED SET 1000ML PUMP SET CARD#[id number] USE 1 BAG FOR OVERNIGHT ACTIVE FEED ONCE DAILY Indication: NUTRITION 12) GLYCOPYRROLATE 2MG TAB TAKE ONE TABLET BY MOUTH DIRECTED ACTIVE BY PROVIDER 2-3 TIMES A DAY NEEDED FOR SECRETIONS 13) HYDROCHLOROTHIAZIDE 25MG TAB TAKE ONE TABLET BY MOUTH ONCE ACTIVE DAILY Indication: FOR CALCIUM IN URINE 14) HYDROPHILIC (EQV EUCERIN) TOP CREAM APPLY A LIBERAL AMOUNT ACTIVE TOPICALLY ONCE DAILY Indication: FOR DRY SKIN 15) HYDROXYZINE HCL 10MG TAB TAKE ONE TABLET BY MOUTH AT BEDTIME ACTIVE NEEDED FOR SLEEP Indication: INSOMNIA 16) INCONT LINER PREVAIL GUARDS #PV-[id number] USE 1 LINER TOPICALLY ACTIVE TWO TIMES A DAY Indication: INCONTINENCE 17) INCONT LINER,MENS X-HVY SURECARE #[id number] USE 1 LINER ACTIVE TOPICALLY AT BEDTIME Indication: INCONTINENCE 18) WRAP,MALE USE 1 WRAP TOPICALLY AT BEDTIME ACTIVE Indication: INCONTINENCE 19) IRRIGATING SYRINGE CATHETER TIP 50-60ML USE 1 SYRINGE ACTIVE NEEDED Indication: NUTRITION 20) MELATONIN 5MG CAP/TAB TAKE THREE CAPSULE/TABLETS BY MOUTH AT ACTIVE BEDTIME Indication: FOR INSOMNIA 21) MEMANTINE HCL 10MG TAB TAKE ONE TABLET BY MOUTH TWICE DAILY ACTIVE 22) MIDODRINE HCL 5MG TAB TAKE ONE TABLET BY MOUTH THREE TIMES ACTIVE DAILY NEEDED Indication: FOR LOW BLOOD PRESSURE 23) NUTRITION SUPL ENSURE PLUS/VANILLA LIQ DRINK 1 CAN BY MOUTH ACTIVE THREE TIMES A DAY Indication: FOR NUTRITIONAL SUPPLEMENTATION 24) OATMEAL,COLLOIDAL CLEANSING BAR/DRY SKIN DIRECTED ACTIVE TOPICALLY ONCE DAILY Indication: FOR SKIN IRRITATION 25) ORAL,SWAB TOOTHETTE USE 1 MOUTH SWAB DIRECTED ONCE DAILY ACTIVE TO USE WITH CHLOREHEXADINE ORAL RINSE 26) POLYETHYLENE GLYCOL 3350 ORAL PWDR TAKE 17 GRAMS(FILL CAP TO ACTIVE 17GM LINE) BY MOUTH ONCE DAILY [MIX WITH 4 TO 8OZ. OF BEVERAGE] Indication: FOR CONSTIPATION 27) RASAGILINE MESYLATE 1MG TAB TAKE ONE TABLET BY MOUTH ONCE ACTIVE DAILY 28) UNDERPAD,BED ULTRASORB [id number] #3136 USE 2 UNDERPADS ACTIVE TOPICALLY AT BEDTIME Indication: INCONTINENCE 29) URINARY DRAINAGE BAG BARD #[id number] USE 1 URINARY DRAINAGE BAG ACTIVE EVERY 7 DAYS Indication: INCONTINENCE 30) VALVE,ARCHANA ENTERAL,ICU MEDICAL #9000 USE 1 VALVE ONCE DAILY ACTIVE Indication: NUTRITION Pending Outpatient Medications Status 1) MULTIVITS W/MINERALS TAB/CAP (NO VIT K) TAKE 1 TABLET BY PENDING MOUTH ONCE DAILY Indication: FOR VITAMIN SUPPLEMENTATION labs: 07/03/24 labs stable, albumin level has improved 4. KARNOFSKY PERFORMANCE SCALE: 40 Disabled: requires special care and assistance 5. PHYSICAL EXAM: seated at table, NAD. alert, few words. conj clear, MMM, mouth remaining open without drooling. lungs CTA CV RRR abd soft NT ND +BS, G tube site clean, Ext warm no edema 6.IMPRESSION: Parkinson's disease with dysphagia. Improving from recent complex hospital & rehab stay. 7. PROGNOSIS: difficult to assess, appears to be stable at present 8. GOALS OF CARE: stay home, avoid burdensome interventions. Reviewed the already signed MOLST - no wish for changes. Undecided if would ever consider a G-tube again after removal. 9. ASSESSMENT/RECOMMENDATIONS: Continue excellent thorough care via [facility] team and specialists, cont to maximize cognitively stimulating activities & physical activity, continue with ST. Introduced topic of Hospice svcs. [place] & spouse would be very interested in adding this service in the future when there are further health declines with goal of remaining at home. 10. DISPOSITION: Other: palliative follow-up as needed only. /sharron/ KAN KWON DO Associate stove tender, Geriatrics Signed: 07/04/2024 13:30 KAN KWON [place] [facility]
--- OUTSIDE RECORDS SUMMARY | 2024-10-29 13:40 | XMS_ITS | Encounter Summary ---
Author Name Department of [place] ([place]) Organization [facility] Address [address] [place] [id number] Care Team Providers Care Supervisor Glycerin Name Role Phone HUSEYIN LUIS FERNANDO Primary Care Provider Unavailabl e MEGAN SLAUGHTER Unavailable Unavailable CHAPUT, AMANDO Unavailable Unavailable RAWALI, RAMIN Unavailable Unavailable SUNIL, KALYAN Unavailable Unavailable GOLD, [...] PART B Jun 20, 2014 PART B [id number] EAMON OLIVIA ERT PATIENT MEDICARE (WNR) MEDICARE (M) PART A Jun 20, 2014 PART A [id number] EAMON OLIVIA ERT PATIENT MEDICARE (WNR) MEDICARE (M) PART A Jun 20, 2014 PART A [id number] EAMON OLIVIA ERT PATIENT MEDICARE (WNR) MEDICARE (M) PART B Jun 20, 2014 PART B [id number] [phone] EAMON OLIVIA ERT PATIENT OPTUM RX PRESCRIPT ION RX Jun 20, 2023 THPRX [id number] EAMON OLIVIA ERT PATIENT OPTUM RX PRESCRIPT ION RX Jun 20, 2022 THPRX [id number] DAVON OLIVIA JR PATIENT OPTUM RX PRESCRIPT ION RX Jun 20, 2022 THPRX [id number] [phone] EAMON OLIVIA ERT PATIENT [facility] Jun 20, 2017 [id number] EAMON OLIVIA ERT PATIENT COUNTS INCLUDE 234 BEDS AT THE [facility] TON PEÑA E Jun 20, 2017 [id number] DAVON OLIVIA JR PATIENT COUNTS INCLUDE 234 BEDS AT THE [facility] TON PEÑ[facility] E Jun 20, 2017 [id number] [phone] DAVON OLIVIA JR PATIENT [facility] USP Jun 20, 2017 [facility] [id number] [phone] EAMON OLIVIA ERT PATIENT [facility] Jun 20, 2023 [id number] EAMON OLIVIA ERT PATIENT Selected Encounter [...] AM PRIMARY Dysphagia, oropharyngeal phase CARMELO WESTFALL [facility] Apr 18, 2024 06:48 AM SECONDARY Dysarthria and anarthria CARMELO WESTFALL [facility] Plan of Treatment: Future Appointments (+ [...] 26, 2024 09:00 AM AMBULATORY [facility] Apr 26, 2024 11:00 AM AMBULATORY - [place] [facility]IC[place] E [place] [facility] Jul 10, 2024 12:30 PM AMBULATORY - REHAB MEDICIN E [place] [facility] Jul 17, 2024 02:00 PM AMBULATORY - [facility] Lab Results: +/- 30 days of [...] Type Comment Mar 28, 2024 12:30 PM [facility] LIVER FUNCTION SERUM Specimen Type: SERUM No comment entered. Ordering Provider: LUIS FERNANDO FONTANEZ Report Released Date/Time: Dec 28, 2023 07:18 AM Reporting Lab: [address] [address] Performing Lab: [address] [address] PROTEIN,TOTAL 6.0 g/dL 6.0-8.3 ALBUMIN 3.2 g/dL L 3.5-5.0 ALKALINE PHOSPHATASE 72 U/L 40-150 AST 21 U/L 5-34 ALT <6 U/L BILIRUBIN, TOTAL 0.4 mg/dL 0.2-1.2 Mar 28, 2024 12:30 PM [facility] BASIC METABOLIC PANEL (non-fasting) SERUM Spe cimen Type: SERUM No comment entered. Ordering Provider: LUIS FERNANDO FONTANEZ Report Released Date/Time: Dec 28, 2023 07:18 AM Reporting Lab: [address] [place] [address] Performing Lab: [facility] [address] [facility] [address] UREA NITROGEN 21 mg/dL 7-25 GLUCOSE 98 mg/dL 65-100 SODIUM 139 mmol/L 135-145 POTASSIUM 3.4 mmol/L L 3.5-5.0 CHLORIDE 102 mmol/L 100-110 CO2 27 meq/L 20-30 CREATININE, Serum 0.88 mg/dL 0.50-1.40 eGFR(CKD-EPI 2020) 90 mL/min >60 Mar 28, 2024 12:30 PM [facility] CBC AND DIFF (AUTO) BLOOD Specimen Type: MICHAELA Andrew No comment entered. Ordering Provider: LUIS FERNANDO FONTANEZ Report Released Date/Time: Dec 28, 2023 07:18 AM Reporting Lab: [address] [address] Performing Lab: [address] [address] WBC 9.03 10*3/uL 4.50-11.00 RBC 4.16 10*6/uL [...] 20, 2021 ADVANCE DIRECTIVE BENTON ARAUZ [facility] Encounter Notes: All associated [...] Resources Only: E911 (Emergency Call Relay Center): [phone] National Veterans Crisis Line - 988 then press #1. [facility] Suicide Coordinator [phone], Ext. [phone]; Back-up Ext. [phone] [place] PoliceCHITRA [place] [phone] Introduction: Visit is being conducted by [employer]. identified with 2 identifiers: [X] Full Name [X] Date of [ ] VA ID Card Emergency Plan: [place] confirmed and/or provided the following information in case of emergency or technology failure. PATIENT PHONE - PHONE NUMBER [CELLULAR] - Is patient phone number correct, if not, enter below: 's phone number: DAVON FREDERICK CORWIN [address], [place], [address] 's present location and address for appointment: as listed 's emergency contact name and phone number: as listed [place] reported that location is private and safe: Yes Informed Consent: informed of the risks and benefits of Telehealth video care. [place] has the right to refuse video services. If refuses video visit, a [id number] visit will be scheduled. [place] verbalized consent for this video visit: Yes [...] 4. HTN - Hypertension ([facility] [id number]) 5. Constipation 6. Under care of multiple [...] 31. AF- Atrial Fibrillation ([facility] [id number]) 32. Parkinson's disease 33. Kidney Stone ([facility] [id number]) Progress notes reviewed. Encounter time - 60 minutes O:The following was addressed during this encounter: [place] has been completing exercises using EMST75 Lite set at lowest setting. He In addition, he completed exercises to improve vocal loudness and clarity of speech. [place]'s spouse reported she is no longer giving [...] well, and take pills in puree. A: [place] with Parkinson's Disease with recent concerns re: swallowing. Dysphagia is a common symptom of PD and will benefit from dysphagia tx. [place] also has dysarthria and reduced intelligibility as a result. He will benefit from instruction in compensatory strategies to improve communication abilities. P: RTC 04/26/24 @ 1100 via C /sharron/ AMARIS WESTFALL M.S.,CCC-ESCROW CLOSER SPEECH-LANGUAGE PATHOLOGIST Signed: 04/18/2024 06:51 Receipt Acknowledged By: 04/18/2024 09:25 /sharron/ EBONY ZIMMERMAN ADVANCED COMPUTER SPECIALIST [place],[facility]
--- OUTSIDE RECORDS SUMMARY | 2024-10-29 13:40 | XMS_ITS ---
Author Name Department [place] Affairs ([place]) Organization [facility] Address [address] [place] [address] Care Team Providers Care Snow Removing Supervisor Name Role Phone HUSEYIN LUIS FERNANDO [...] PART B Jun 20, 2014 PART B [id number] EAMON OLIVIA ERT PATIENT MEDICARE (WNR) MEDICARE (M) PART A Jun 20, 2014 PART A [id number] EAMON OLIVIA ERT PATIENT MEDICARE (WNR) MEDICARE (M) PART A Jun 20, 2014 PART A [id number] EAMON OLIVIA ERT PATIENT MEDICARE (WNR) MEDICARE (M) PART B Jun 20, 2014 PART B [id number] EAMON OLIVIA ERT PATIENT OPTUM RX PRESCRIPT ION RX Jun 20, 2023 THPRX [id number] EAMON OLIVIA ERT PATIENT OPTUM RX PRESCRIPT ION RX Jun 20, 2022 THPRX [id number] [phone] DAVON OLIVIA JR PATIENT OPTUM RX PRESCRIPT ION RX Jun 20, 2022 THPRX [id number] EAMON OLIVIA ERT PATIENT [facility] Jun 20, 2017 [id number] [phone] EAMON OLIVIA ERT PATIENT [facility] PLAN [facility] TON PEÑA E Jun 20, 2017 [id number] DAVON OLIVIA JR PATIENT [facility] T[facility] E Jun 20, 2017 [id number] DAVON OLIVIA JR PATIENT [facility] PLAN USP Jun 20, 2017 USP [id number] EAMON OLIVIA ERT PATIENT [facility] Jun 20, 2023 [id number] [phone] EAMON OLIVIA ERT PATIENT Selected Encounter This section includes the information on record at [place] for the Encounter. Date/Time Encounter Type Encounter Description Reason Provider Source Dec 27, 2023 10:21 AM SELF CARE MNGMENT TRAINING [facility] Nursing (RN / LP) ICD-10-CM G20.C Parkinsonism, unspecified RISING,JENNIFER L E Encounter Template Text not used by [place] Assessments - Encounter Diagnoses This section includes the primary and secondary diagnoses documented for the Encounter. Date/Time Primary/Secondary Diagnosis Diagnosis Name Provider Source Dec 27, 2023 04:34 PM PRIMARY Parkinsonism, unspecified RISING,HEATHE R L [place] [facility] [place] [facility] Dec 27, 2023 04:34 PM SECONDARY Delirium due to known physiological condition RISING,HEATHE R L [place] [facility] [place] [facility] Dec 27, 2023 04:34 PM SECONDARY Hematuria, unspecified RISING,HEATHE R L [place] [facility] [place] [facility] Dec 27, 2023 04:34 PM SECONDARY Unspecified urinary incontinence RISING,JIE R L [place] [facility] [place] [facility] Plan of Treatment: Future Appointments (+ 6 months) and Future Tests (+/- 45 days) The Plan of Treatment section includes future care activities for the patient from all [place] [facility]. This section includes future appointments and future [...] AMBULATORY - NONE [facility] [place] [facility] Feb 02, 2024 03:00 PM AMBULATORY - REHAB MEDICIN E [facility] [place] [facility] Feb 14, 2024 12:30 PM AMBULATORY - REHAB MEDICIN E [facility] [place] [facility] Mar 15, 2024 10:00 AM AMBULATORY - REHAB MEDICIN E [facility] [place] [facility] Mar 22, 2024 08:00 AM AMBULATORY - MEDICINE [facility] [place] [facility] Mar 22, 2024 01:00 PM AMBULATORY - NONE [facility] [place] [facility] Mar 27, 2024 02:30 PM AMBULATORY - MEDICINE [place] C [facility] [place] [facility] Mar 29, 2024 11:00 AM AMBULATORY - REHAB MEDICIN E [facility] [place] [facility] Apr 12, 2024 11:00 AM AMBULATORY - REHAB MEDICIN E [facility] [place] [facility] Apr 26, 2024 09:00 AM AMBULATORY - MEDICINE [place] C [facility] [place] [facility] Apr 26, 2024 11:00 AM AMBULATORY - REHAB MEDICIN E [facility] [place] [facility] Vital Signs: All taken on the encounter date This section contains inpatient and outpatient Vital Signs collected on the date of the Encounter. Date/Time Temperature Pulse Blood Pressure Respiratory Rate SP02 Pain Height Weight Body Mass Index Source Dec 27, 2023 10:22 AM 98.4 68 112/78 16 98 0 [place] [facility] [place] [facility] Social History: Smoking Status (Most current) [...] 19, 2023 12:24 PM VA-TOBACCO NEVER USED [facility] Tobacco Use History This section includes a history of the smoking, or tobacco-related health factors, that were collected on or before the date of the Encounter. The data comes from the [place] facility where the Encounter took place. Date/Time Smoking Status/Tobacco Use Comment F acility Jan 15, 2021 11:00 AM VA-TOBACCO NEVER USED [facility] Advance Directives: All historical and current Section [...] Jan 20, 2021 ADVANCE DIRECTIVE BENTON ARAUZ [facility] Encounter Notes: All associated encounter notes This section contains the clinical notes associated to the Encounter. Date/Time Encounter Note(s) Provider Source Dec 27, 2023 04:34 PM ADDENDUM: LOCAL TITLE: Addendum STANDARD TITLE: ADDENDUM DATE OF NOTE: DEC 27, 2023@16:34:58 ENTRY DATE: DEC 27, 2023@16:34:59 AUTHOR: JENNIFER SEGURA EXP COSIGNER: URGENCY: STATUS: COMPLETED Please renew if in agreeement. Thank you. OUTPT APIXABAN 5MG TAB (Status = Active/Suspended) TAKE ONE TABLET BY MOUTH EVERY 12 HOURS FOR ATRIAL FIBRILLATION Rx# [id number] Last Released: 10/26/23 Qty/Days Supply: 180/90 Rx Expiration Date: 08/16/24 Refills Remainin Indication: ATRIAL FIBRILLATION OUTPT ARTIFICIAL SALIVA ORAL SPRAY (Status = Active) SPRAY 2 SPRAYS BY MOUTH EVERY 2 HOURS NEEDED FOR DRY MOUTH (USE DIRECTED) Rx# [id number] Last Released: 11/17/23 Qty/Days Supply: 720/ Rx Expiration Date: 09/02/24 Refills Remainin Indication: FOR DRY MOUTH OUTPT CHOLECALCIF 25MCG (D3-1,000UNIT) TAB (Status = Active/Suspended) TAKE ONE TABLET BY MOUTH ONCE DAILY FOR VITAMIN SUPPLEMENTATION Rx# [id number] Last Released: 10/26/23 Qty/Days Supply: Rx Expiration Date: 05/20/24 Refills Remainin Indication: FOR VITAMIN D DEFICIENCY OUTPT FAMOTIDINE 20MG TAB (Status = Active/Suspended) TAKE ONE TABLET BY MOUTH ONCE DAILY FOR STOMACH ACID Rx# [id number] Last Released: 10/26/23 Qty/Days Supply: Rx Expiration Date: 05/20/24 Refills Remainin Indication: FOR HEARTBURN OUTPT HYDROCHLOROTHIAZIDE 25MG TAB (Status = Active/Suspended) TAKE ONE TABLET BY MOUTH ONCE DAILY FOR HIGH BLOOD PRESSURE Rx# [id number] Last Released: 10/26/23 Qty/Days Supply: Rx Expiration Date: 05/20/24 Refills Remainin Indication: FOR HIGH BLOOD PRESSURE OUTPT HYDROXYZINE HCL 10MG TAB (Status = Active/Suspended) TAKE ONE TABLET BY MOUTH AT BEDTIME NEEDED FOR ANXIETY Rx# [id number] Last Released: 10/26/23 Qty/Days Supply: Rx Expiration Date: 05/20/24 Refills Remainin Indication: FOR ANXIETY OUTPT MULTIVITAMIN/MINERALS CAP/TAB (Status = Active/Suspended) TAKE 1 TABLET BY MOUTH ONCE DAILY FOR VITAMIN SUPPLEMENTATION FOR VITAMIN SUPPLEMENTATION Rx# [id number] Last Released: 10/26/23 Qty/Days Supply: 100/90 Rx Expiration Date: 05/20/24 Refills Remainin Indication: FOR VITAMIN SUPPLEMENTATION /sharron/ JENNIFER SEGURA RN BSN [facility] PRIVATE SECTOR EXECUTIVE Signed: 12/27/2023 16:38 Receipt Acknowledged By: 12/28/2023 [...] A DAY 13) INCONT LINER,MENS X-HVY SURECARE #[id number] USE 1 LINER HOLD TOPICALLY AT BEDTIME [...] DAILY FOR PARKINSON'S DISEASE 23) UNDERPAD,BED ULTRASORB [id number] M#3136 USE 2 UNDERPADS ACTIVE TOPICALLY AT [...] in patient's home at time of visit. Rattan identified by: Full Name, Facial Recognition Length [...] . She became teary eyed and states Rattan has been uncooperative and it has been a challenge to care for him. Spouse called neurologist office to discuss behavior change. No return phone as of today. Spouse reports she has reach out to support group which she finds helpful. ROAD MAKER hours increased and ore dryer now coming 5 days a week which is a tremendous help. pleasant and cooperative during visit. Rattan unsettled at night, taking off depends, trying to get out of bed. Spouse reports she purchased baby bumpers and adult onesies online and they are working out great. Baby bumper keeps Rattan from getting out of bed and the adult onesies keeps from taking of his diaper. manages and administers meds in pudding or applesauce. Little trouble swallowing. Needs extra sip of a drink to get pills down. Reviewed medication regimen. Spouse administering meds as directed. Updated med list left in the home. Rattan followed up with Dr. Vickey Gooden Cardiac Sales Floor Team Leader [facility] Cardiovascular associates. Rattan to continue on apixaban. Next appt 06/25/[address]-scan 01/08 at Radiology and [facility], [address] [place] [address], [phone]. CT scan abdomen/pelvis without contrast. 01/[address] Lloyd Soares Urologist for cystoscopy. [facility]. Blood Pressure: 112/78 (12/27/2023 10:22) Pulse: 68 [...] as possible with assist from his and [facility], [facility] Patient verbalizes understanding to above and will call with any concerns or changes in condition. For emergent care call 911. Revisit: 01/22 for chronic disease management, neuro assessment, c/v an dc/p assessment, med review, /es/ JENNIFER SEGURA NET PROGRAMMER ANALYST HB PRIVATE SECTOR EXECUTIVE Signed: 12/27/2023 16:34 JENNIFER SEGURA [place] [facility] Dec 27, 2023 10:24 AM [facility] NURSING NOTE: LOCAL TITLE: [facility] RN PROGRESS NOTE STANDARD TITLE: [facility] NURSING NOTE DATE OF NOTE: DEC 27, [...] TIMES A DAY 13) INCONT LINER,[facility]ENS [facility][id number] USE 1 LINER HOLD TOPICALLY AT BEDTIME [...] DAILY FOR PARKINSON'S DISEASE 23) UNDERPAD,BED ULTRASORB [id number] M#3136 USE 2 UNDERPADS ACTIVE TOPICALLY AT [...] the kitchen table upon arrival, spouse present. Rattan well groomed. Dressed appropriately. Poor eye contact. Soft spoken. Spouse reports she had a rough couple of weeks with Rattan. She became teary eyed and states Rattan has been uncooperative and it has been a challenge to care for him. Spouse called neurologist office to discuss behavior change. No return phone as of today. Spouse reports she has reach out to support group which she finds helpful. ROAD MAKER hours increased and ore dryer now coming 5 days a week which is a tremendous help. Rattan pleasant and cooperative during visit. unsettled at night, taking off depends, trying to get out of bed. Spouse reports she purchased baby bumpers and adult onesies online and they are working out great. Baby bumper keeps Rattan from getting out of bed and the adult onesies keeps Rattan from taking of his diaper. manages and administers meds in pudding or applesauce. Little trouble swallowing. Needs extra sip of a drink to get pills down. Reviewed medication regimen. Spouse administering meds as directed. Updated med list left in the home. Rattan followed up with Dr. Vickey Gooden Cardiac Sales Floor Team Leader [facility] Cardiovascular associates. to continue on apixaban. Next appt 06/25/[address]-scan 01/[address] [phone]. [address] scan abdomen/pelvis without contrast. 01/[address] Lloyd Soares Urologist for cystoscopy. [facility]. Blood Pressure: 112/78 (12/27/2023 10:22) Pulse: 68 [...] ER/HOSPITALIZATIONS NO Teaching/goals: Refer to nursing summary. Rattan goal is to live at home safely with his as long as possible with assist from his and [facility], [facility] Patient verbalizes understanding to above and will call with any concerns or changes in condition. For emergent care call 911. Revisit: 01/22 for chronic disease management, neuro assessment, c/v an dc/p assessment, med review, /sharron/ JENNIFER SEGURA NET PROGRAMMER ANALYST [facility] PRIVATE SECTOR EXECUTIVE Signed: 12/27/2023 16:34 12/27/2023 ADDENDUM STATUS: COMPLETED Please renew if in agreeement. Thank you. OUTPT APIXABAN 5MG TAB (Status = Active/Suspended) TAKE ONE TABLET BY MOUTH EVERY 12 HOURS FOR ATRIAL FIBRILLATION Rx# [id number] Last Released: 10/26/23 Qty/Days Supply: 180/ Rx Expiration Date: 08/16/24 Refills Remainin Indication: ATRIAL FIBRILLATION OUTPT ARTIFICIAL SALIVA ORAL SPRAY (Status = Active) SPRAY 2 SPRAYS BY MOUTH EVERY 2 HOURS NEEDED FOR DRY MOUTH (USE DIRECTED) Rx# [id number] Last Released: 11/17/23 Qty/Days Supply: 720/90 Rx Expiration Date: 09/02/24 Refills Remainin Indication: FOR DRY MOUTH OUTPT CHOLECALCIF 25MCG (D3-1,000UNIT) TAB (Status = Active/Suspended) TAKE ONE TABLET BY MOUTH ONCE DAILY FOR VITAMIN SUPPLEMENTATION Rx# [id number] Last Released: 10/26/23 Qty/Days Supply: 90 Rx Expiration Date: 05/20/24 Refills Remainin Indication: FOR VITAMIN D DEFICIENCY OUTPT FAMOTIDINE 20MG TAB (Status = Active/Suspended) TAKE ONE TABLET BY MOUTH ONCE DAILY FOR STOMACH ACID Rx# [id number] Last Released: 10/26/23 Qty/Days Supply: 90 Rx Expiration Date: 05/20/24 Refills Remainin Indication: FOR HEARTBURN OUTPT HYDROCHLOROTHIAZIDE 25MG TAB (Status = Active/Suspended) TAKE ONE TABLET BY MOUTH ONCE DAILY FOR HIGH BLOOD PRESSURE Rx# [id number] Last Released: 10/26/23 Qty/Days Supply: 90 Rx Expiration Date: 05/20/24 Refills Remainin Indication: FOR HIGH BLOOD PRESSURE OUTPT HYDROXYZINE HCL 10MG TAB (Status = Active/Suspended) TAKE ONE TABLET BY MOUTH AT BEDTIME NEEDED FOR ANXIETY Rx# [id number] Last Released: 10/26/23 Qty/Days Supply: 90 Rx Expiration Date: 05/20/24 Refills Remainin Indication: FOR ANXIETY OUTPT MULTIVITAMIN/MINERALS CAP/TAB (Status = Active/Suspended) TAKE 1 TABLET BY MOUTH ONCE DAILY FOR VITAMIN SUPPLEMENTATION FOR VITAMIN SUPPLEMENTATION Rx# [id number] Last Released: 10/26/23 Qty/Days Supply: 100/90 Rx Expiration Date: 05/20/24 Refills Remainin Indication: FOR VITAMIN SUPPLEMENTATION /es/ JENNIFER SEGURA, NET PROGRAMMER ANALYST [facility] PRIVATE SECTOR EXECUTIVE Signed: 12/27/2023 16:38 Receipt Acknowledged By: * AWAITING SIGNATURE * LUIS FERNANDO FONTANEZ HEATHER L [facility]
--- OUTSIDE RECORDS SUMMARY | 2024-10-29 13:40 | XMS_ITS | Encounter Summary ---
Author Organization [facility] Address [address] [place] [address] Phone Care Team Providers Care Mobile Sales Technician Name Role Phone Shirin Mcwilliams MD Primary Care Prov ider Encounter Details Date Type Department Care Team (Late st Contact Info) Description 09/04/2024 Documentation Only [facility] [address] [place] [address] Aiyana Esteves [address] [place] [phone] Social History Tobacco Use Types Packs/Day [...] Visit [facility] Mikael DudleyYoly Dr Sienna ACOSTA [address] [place] [phone] Emil Davis MD [address] [place] [address] [place] [address] documented as of this encounter Visit Diagnoses Not on filedocumented in this encounter Care Teams Mobile Sales Technician Relationship Specialty Start Date End Date Shirin Mcwilliams MD [address] [place] [phone] PCP - General 06/30/20 documented as of this encounter
--- OUTSIDE RECORDS SUMMARY | 2024-10-29 13:40 | XMS_ITS | Encounter Summary ---
Author Name [facility] [place] Organization [facility] [place] Address [address] [place] [id number] Care Team Providers Care Mold Maker Plastic Molds Name Role Phone LUIS FERNANDO FONTANEZ Primary Care Provider Unavailabl e MEGAN SLAUGHTER Unavailable Unavailable CHAPUT, AMANDO Unavailable Unavailable RAWALI, RAMIN Unavailable Unavailable SUNIL, KALYAN Unavailable Unavailable GOLD, DAMANIVAL Unavailable Unavailable JOSSY RIGO Unavailable Unavailable RISING, JENNIFER Unavailable Unavailable SAMUEL, AMARIS Unavailable Unavailable MITALI, CNADICE Unavailable Unavailable Insurance Providers: All historical and [...] Policy Steen MEDICARE (WNR) MEDICARE (M) PART A Jun 20, 2014 PART A [id number] EAMON OLIVIA ERT PATIENT MEDICARE (WNR) MEDICARE (M) PART B Jun 20, 2014 PART B [id number] EAMON OLIVIA ERT PATIENT MEDICARE (WNR) MEDICARE (M) PART A Jun 20, 2014 PART A [id number] [phone] EAMON OLIVIA ERT PATIENT MEDICARE (WNR) MEDICARE (M) PART B Jun 20, 2014 PART B [id number] EAMON OLIVIA ERT PATIENT OPTUM RX PRESCRIPT ION RX Jun 20, 2023 [facility] [id number] EAMON OLIVIA ERT PATIENT [facility] RX PRESCRIPT ION RX Jun 20, 2022 [facility] [id number] DAVON OLIVIA JR PATIENT [facility] RX PRESCRIPT ION RX Jun 20, 2022 [facility] [id number] EAMON OLIVIA ERT PATIENT [facility] Jun 20, 2017 [id number] EAMON OLIVIA ERT PATIENT [facility] TON PEÑA E Jun 20, 2017 [id number] [phone] DAVON OLIVIA JR PATIENT [facility] PEÑA E Jun 20, 2017 [id number] DAVON OLIVIA JR [facility]IENT [facility] Jun 20[facility] 2017 [facility] [id number] EAMON OLIVIA ERT PATIENT [facility] Jun 20, 2023 [id number] [phone] EAMON OLIVIA ERT PATIENT Selected Encounter This section includes the information on record at [place] for the Encounter. Date/Time Encounter Type Encounter Description Reason Provider Source November 09, 2023 08:58 AM Outpatient Encounter AMB ECG MONITORING ICD-10-CM Z04.89 Encounter for examination and observation for oth reasons FELA MAGANA Chalino Encounter Template Text not used by CT Assessments - Encounter Diagnoses This section includes the primary and secondary diagnoses documented for the Encounter. Date/Time Primary/Secondary Diagnosis Diagnosis Name Provider Source November 09, 2023 08:59 AM PRIMARY Encounter for examination and observation for oth reasons PAPI MAGANA [facility] Plan of Treatment: Future Appointments (+ [...] [facility] [place] [facility] Jan 04, 2024 01:00 PM AMBULATORY - [...] [facility] [place] [facility] Advance Directives: All historical and current Section [...] 2021 ADVANCE DIRECTIVE BENTON ARA[facility]Z [facility] Encounter Notes: All associated encounter notes This section contains the clinical notes associated to the Encounter. Date/Time Encounter Note(s) Provider Source November 09, 2023 08:58 AM CARDIOLOGY CONSULT : LOCAL TITLE: CARDIOLOGY eCONSULT/MEDICAL/CONSULT STANDARD TITLE: CARDIOLOGY CONSULT DATE OF NOTE: NOVEMBER 09, 2023@08:58 ENTRY DATE: NOVEMBER 09, 2023@08:58:33 AUTHOR: CATHIE MAGANA COSIGNER: URGENCY: STATUS: COMPLETED Patient was not [...] 118 bpm. Isolated SVEs were occasional (2.1%, [id number]), SVE Couplets were rare (<1.0%, 244), and [...] Time spent 15' /sharron/ CATHIE MAGANA MD Photogrammetrist Attending Signed: 11/09/2023 09:00 CATHIE MAGANA [facility]
--- OUTSIDE RECORDS SUMMARY | 2024-10-29 13:40 | XMS_ITS | Encounter Summary ---
Author Name [facility] [place] [facility] [place] Organization [facility] Address [address] [place] [id number] Care Team Providers Care Insulation Blower Name Role Phone HUSEYIN LUIS FERNANDO Primary Care Provider Unavailabl e MEGAN SLAUGHTER Unavailable Unavailable CHAPALEXY, AMANDO Unavailable Unavailable RAWALI RAMIN Unavailable Unavailable FEILEN, KALYAN Unavailable Unavailable [...] PART B Jun 20, 2014 PART B [id number] [phone] EAMON OLIVIA ERT PATIENT MEDICARE (WNR) MEDICARE (M) PART A Jun 20, 2014 PART A [id number] [phone] EAMON OLIVIA ERT PATIENT MEDICARE (WNR) MEDICARE (M) PART A Jun 20, 2014 PART A [id number] EAMON OLIVIA ERT PATIENT MEDICARE (WNR) MEDICARE (M) PART B Jun 20, 2014 PART B [id number] EAMON OLIVIA ERT PATIENT OPTUM RX PRESCRIPT ION RX Jun 20, 2023 [facility] [id number] EAMON OLIVIA ERT PATIENT [facility] RX PRESCRIPT ION RX Jun 20, 2022 [facility] [id number] [phone] DAVON OLIVIA JR PATIENT [facility] RX PRESCRIPT ION RX Jun 20, 2022 [facility] [id number] EAMON OLIVIA ERT PATIENT [facility] Jun 20, 2017 [id number] [phone] EAMON OLIVIA ERT PATIENT [facility] PLAN [facility] TON PEÑ[facility] E Jun 20, 2017 [id number] [phone] DAVON OLIVIA JR PATIENT [facility] PLAN [facility] TON PEÑA E Jun 20, 2017 [id number] DAVON OLIVIA JR PATIENT [facility] PLAN [facility] Jun 20, 2017 [id number] [phone] EAMON OLIVIA ERT PATIENT [facility] Jun 20, 2023 [id number] [phone] EAMON OLIVIA ERT PATIENT Selected Encounter This section includes the information on record at [place] for the Encounter. Date/Time Encounter Type Encounter Description Reason Provider Source May 21, 2024 11:34 AM QNHP OL DIG ASSMT&MGMT 5-10 CLINICAL PHARMACY ICD-10-CM G20.C Parkinsonism, unspecified JAKI HELM Encounter Template Text not used by [place] Assessments - Encounter Diagnoses This section includes the primary and secondary diagnoses documented for the Encounter. Date/Time Primary/Secondary Diagnosis Diagnosis Name Provider Source May 21, 2024 11:42 AM PRIMARY Parkinsonism, unspecified JAKI HELM [facility] Plan of Treatment: Future Appointments (+ [...] 12:30 PM [facility] Jul 17, 2024 02:00 PM [facility] Advance Directives: All historical and current [...] Jan 20, 2021 ADVANCE DIRECTIVE BENTON ARAUZ [facility] Encounter Notes: All associated encounter notes This section contains the clinical notes associated to the Encounter. Date/Time Encounter Note(s) Provider Source May 21, 2024 11:34 AM MEDICATION MGT CON SULT: LOCAL TITLE: CONSULT REPORT/NON FORMULARY PADR STANDARD TITLE: MEDICATION MGT CONSULT DATE OF NOTE: MAY 21, 2024@11:34 ENTRY DATE: MAY 21, 2024@11:34:55 AUTHOR: MCKENZIE HELM COSIGNER: URGENCY: STATUS: COMPLETED The medical record has been reviewed with regard to this restricted drug request. Medication requested: NUTR SUPL OSMOLITE 1.2 WILLIAM LIQUID Medication indication: Dysphagia Medical history relevant to this request: Pt is following with [facility] nutrition. Per notes [copy/paste]: [place] is being discharged from SNF on 05/21. G-tube was placed at the [facility]. had legacy tube placed not enfit. Per [facility] [address], [place] is eat some pureed food by mouth at all 3 meals. This meets about 25-50% of his needs. Currently is still receiving Osmolite 1.2 overnight to meet the remainder of his needs. G-tube is new and [place] will need tube feeding formula and equipment at home. TF order at [facility]: Osmolite 1.2 at 115mls/hr x10hrs nocturnal via g-tube to provide: 1380kcals(~74%),63gms pro(~78%),943mls water + addtnl 220mls q8hrs via g-vgqw=2590gpy(~86%) of daily water needs. -Recommend continuing order above upon d/c. Wt: 159.2# (05/05/24) Pt to continue without a change to formula as he is tolerating. The request is APPROVED - The patient previously responded to a non-formulary or non-preferred agent and serious risk is associated with a change the preferred formulary alternative(s) /sharron/ Mckenzie Helm, PharmD, [facility] Clinical Referral Management Liaison Signed: 05/21/2024 11:42 MCKENZIE HELM [facility]
--- OUTSIDE RECORDS SUMMARY | 2024-10-29 13:40 | XMS_ITS ---
Author Name Department of [facility] Affairs ([place]) Organization Department of [facility] Affairs ([place]) Address [address] [place] [id number] Care Team Providers Care Formstone Fitter Name Role Phone HUSEYIN LUIS FERNANDO Primary [...] PART B Jun 20, 2014 PART B [id number] EAMON OLIVIA ERT PATIENT MEDICARE (WNR) MEDICARE (M) PART A Jun 20, 2014 PART A [id number] EAMON OLIVIA ERT PATIENT MEDICARE (WNR) MEDICARE (M) PART A Jun 20, 2014 PART A [id number] [phone] EAMON OLIVIA ERT PATIENT MEDICARE (WNR) MEDICARE (M) PART B Jun 20, 2014 PART B [id number] EAMON OLIVIA ERT PATIENT [facility] RX PRESCRIPT ION RX Jun 20, 2023 THPRX [id number] EAMON OLIVIA ERT PATIENT [facility] PRESCRIPT ION RX Jun 20, 2022 THPRX [id number] [phone] DAVON OLIVIA JR PATIENT [facility] RX PRESCRIPT ION RX Jun 20, 2022 THPRX [id number] [phone] EAMON OLIVIA ERT PATIENT [facility] Jun 20, 2017 [id number] EAMON OLIVIA ERT PATIENT [facility] PLAN [facility] TON PEÑA E Jun 20, 2017 [id number] DAVON OLIVIA JR PATIENT [facility] Jun 20, 2017 [facility] [id number] EAMON OLIVIA ERT PATIENT [facility] TON PEÑ[facility] E Jun 20, 2017 [id number] DAVON OLIVIA JR PATIENT [facility] Jun 20, 2023 [id number] EAMON OLIVIA ERT PATIENT Selected Encounter This section includes the information on record at [place] for the Encounter. Date/Time Encounter Type Encounter Description Reason Provider Source Nov 28, 2023 11:50 AM SELF CARE MNGMENT TRAINING [facility] Nursing (RN / LP) ICD-10-CM G20.C Parkinsonism, unspecified RISING,JENNIFER L E Encounter Template Text not used by [place] Assessments - Encounter Diagnoses This section includes the primary and secondary diagnoses documented for the Encounter. Date/Time Primary/Secondary Diagnosis Diagnosis Name Provider Source Nov 28, 2023 08:45 PM PRIMARY Parkinsonism, unspecified RISING,HEATHE R L [facility] [place] [facility] Nov 28, 2023 08:45 PM SECONDARY Parkinson's dis w/o dyskinesia, w/o mention of fluctuations RISING,HEATHE R L [facility] [place] [facility] Nov 28, 2023 08:45 PM SECONDARY Unspecified urinary incontinence RISING,HEATHE R L [facility] [place] [facility] Plan of Treatment: Future Appointments (+ 6 months) and Future Tests (+/- 45 days) The Plan of Treatment section includes future care activities for the patient from all [place] [facility] This section includes future appointments and [...] 26, 2023 11:00 AM AMBULATORY - MEDICINE [place] [facility] [place] [facility] Jan 04, 2024 01:00 PM AMBULATORY - NONE [facility] [place] [facility] Feb 02, 2024 03:00 PM AMBULATORY - REHAB MEDICIN E [facility] [place] [facility] Feb 14, 2024 12:30 PM AMBULATORY - REHAB MEDICIN E [facility] [place] [facility] Mar 15, 2024 10:00 AM AMBULATORY - REHAB MEDICIN E [facility] [place] [facility] Mar 22, 2024 08:00 AM AMBULATORY - MEDICINE [place] [facility] [place] [facility] Mar 22, 2024 01:00 PM AMBULATORY - NONE [facility] [place] [facility] Mar 27, 2024 02:30 PM AMBULATORY - MEDICINE [place] [facility] [place] [facility] Mar 29, 2024 11:00 AM AMBULATORY - REHAB MEDICIN E [facility] [place] [facility] Apr 12, 2024 11:00 AM AMBULATORY - REHAB MEDICIN E [facility] [place] [facility] Apr 26, 2024 09:00 AM AMBULATORY - MEDICINE [place] [facility] [place] [facility] Apr 26, 2024 11:00 AM AMBULATORY - REHAB MEDICIN E [facility] [place] [facility] Vital Signs: All taken on the encounter date This section contains inpatient and outpatient Vital Signs collected on the date of the Encounter. Date/Time Temperature Pulse Blood Pressure Respiratory Rate SP02 Pain Height Weight Body Mass Index Source Nov 28, 2023 12:15 PM 97.2 56 128/80 16 99 0 [facility] [place] [facility] Social History: Smoking Status [...] 2021 11:00 AM VA-TOBACCO NEVER USED [facility] Advance Directives: [...] SEGURA COSIGNER: URGENCY: STATUS: COMPLETED Spouse reports [place] is sleeping most of the day. She has been keeping in his wheelchair more during the day to keep him awake. not interested in puzzles, arts in crafts. [place] enjoys watching TV. not sleeping at night. Spouse is run down and needs a break. She reports she had hard day with [place] last week and she had her brother stay with [place] a few hours so she could take a breather. Spouse reports she is exhausted and inquiring if she could get respite hours overnight once in a while so she can sleep. /sharron/ ZACHARIAH SWIFTN [facility] MANGLE CATCHER Signed: 11/28/2023 20:47 Receipt Acknowledged By: 11/29/2023 08:49 /es/ Kamilah Tirado [facility] [employer] --- Original Document --- 11/28/23 MARILIN RN [...] A DAY 14) INCONT LINER,MENS X-HVY SURECARE #[id number] USE 1 LINER HOLD TOPICALLY AT BEDTIME [...] DAILY FOR PARKINSON'S DISEASE 24) UNDERPAD,BED ULTRASORB [id number] M#3136 USE 2 UNDERPADS ACTIVE TOPICALLY AT [...] management, neuro assessment, c/v and c/p assessment. [place] sitting at the kitchen table upon arrival, spouse present. [place] well groomed. Dressed appropriately. Poor eye contact. Soft spoken. Relied on spouse to answer questions. Spouse reports [place] is sleeping most of the day. She has been keeping [place] in his wheelchair more during the day to keep him awake. [place] not interested in puzzles, arts in crafts. enjoys watching TV. [place] not sleeping at night. Spouse is run down and needs a break. She reports she had hard day with last week and she had her brother stay with [place] a few hours so she could take a breather. Spouse reports she is exhausted and inquiring if she could get respite hours overnight once in a while so she can sleep. 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 unsettled at night, taking off depends, trying to get out of bed. Spouse reports somehow positioned himself way down in the bed tangled himself in the sheets and she could barely reposition him and get him up. She is requesting Michael lift. [facility] PT ordered multi-podus boots and they came in. Spouse has questions regarding boots. [facility] PT will f/u [place] incontinent. Reports intermittent hematuria. manages and administers meds in pudding or applesauce, swallowing pills without difficulty. Spouse reports [facility] PCP reviewed risk vs benefit on apixaban and [place] is going to continue taking medication. Spouse [...] ER/HOSPITALIZATIONS NO Teaching/goals: Refer to nursing summary. [place] goal is to live at home safely with his as long as possible with assist from his and [facility], [facility] Patient verbalizes understanding to above and will call with any concerns or changes in condition. For emergent care call 911. Revisit: 12/26 for chronic disease management, neuro assessment, c/v an dc/p assessment, med review, /sharron/ JENNIFER SEGURA RN BSN [facility] MANGLE CATCHER Signed: 11/28/2023 20:45 11/28/2023 ADDENDUM STATUS: COMPLETED unsettled at night, taking off depends, trying to get out of bed. Spouse reports somehow positioned himself way down in the bed tangled himself in the sheets and she could barely reposition him and get him up. She is requesting Michael lift. [facility] PT ordered multi-podus boots and they came in. Spouse has questions regarding boots. [facility] PT will f/u /sharron/ JENNIFER SEGURA LENS MATCHER [facility] MANGLE CATCHER Signed: 11/28/2023 20:45 Receipt Acknowledged By: * AWAITING SIGNATURE * WALIRAMIN 11/29/2023 ADDENDUM STATUS: UNSIGNED You may not VIEW this UNSIGNED Addendum. JENNIFER SEGURA [facility] [place] [facility] Nov 28, 2023 08:45 PM ADDENDUM: LOCAL TITLE: Addendum STANDARD TITLE: ADDENDUM DATE OF NOTE: NOV 28, 2023@20:45:25 ENTRY DATE: NOV 28, 2023@20:45:26 AUTHOR: JENNIFER SEGURA EXP COSIGNER: URGENCY: STATUS: COMPLETED unsettled at night, taking off depends, trying to get out of bed. Spouse reports somehow [place] positioned himself way down in the bed tangled himself in the sheets and she could barely reposition him and get him up. She is requesting Michael lift. [facility] PT ordered multi-podus boots and they came in. Spouse has questions regarding boots. [facility] PT will f/u /es/ JENNIFER SEGURA LENS MATCHER [facility] MANGLE CATCHER Signed: 11/28/2023 20:45 Receipt Acknowledged By: 11/30/2023 08:12 /es/ RAMIN MENDIETA, PT, MS, ATP [facility] Physical Therapist --- Original Document --- 11/28/23 [facility] RN PROGRESS NOTE: Nursing Progress Note Active [...] A DAY 14) INCONT LINER,MENS X-HVY SURECARE #[id number] USE 1 LINER HOLD TOPICALLY AT BEDTIME [...] DAILY FOR PARKINSON'S DISEASE 24) UNDERPAD,BED ULTRASORB [id number] M#3136 USE 2 UNDERPADS ACTIVE TOPICALLY AT [...] in patient's home at time of visit. [place] identified by: Full Name, Facial Recognition Length of visit in home: 50 Minutes Problem addressed for this visit: PD, hematuria, med review, caregiver support Specimen(s) collected during this visit: None NURSING SUMMARY: : RNCM made home visit for chronic disease management, neuro assessment, c/v and c/p assessment. [place] sitting at the kitchen table upon arrival, spouse present. well groomed. Dressed appropriately. Poor eye contact. Soft spoken. Relied on spouse to answer questions. Spouse reports [place] is sleeping most of the day. She has been keeping [place] in his wheelchair more during the day to keep him awake. [place] not interested in puzzles, arts in crafts. [place] enjoys watching TV. not sleeping at night. Spouse is run down and needs a break. She reports she had hard day with last week and she had her brother stay with [place] a few hours so she could take a breather. Spouse reports she is exhausted and inquiring if she could get respite hours overnight once in a while so she can sleep. 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 [place] unsettled at night, taking off depends, trying to get out of bed. Spouse reports somehow positioned himself way down in the bed tangled himself in the sheets and she could barely reposition him and get him up. She is requesting Michael lift. [facility] PT ordered multi-podus boots and they came in. Spouse has questions regarding boots. [facility] PT will f/u [place] incontinent. Reports intermittent hematuria. manages and administers meds in pudding or applesauce, swallowing pills without difficulty. Spouse reports [facility] PCP reviewed risk vs benefit on apixaban and [place] is going to continue taking medication. Spouse [...] ER/HOSPITALIZATIONS NO Teaching/goals: Refer to nursing summary. [place] goal is to live at home safely with his as long as possible with assist from his and [facility], [facility] Patient verbalizes understanding to above and will call with any concerns or changes in condition. For emergent care call 911. Revisit: 12/26 for chronic disease management, neuro assessment, c/v an dc/p assessment, med review, /ZACHARIAH Rodriguez [facility] MANGLE CATCHER Signed: 11/28/2023 20:45 11/28/2023 ADDENDUM STATUS: COMPLETED Spouse reports [place] is sleeping most of the day. She has been keeping [place] in his wheelchair more during the day to keep him awake. not interested in puzzles, arts in crafts. [place] enjoys watching TV. not sleeping at night. Spouse is run down and needs a break. She reports she had hard day with last week and she had her brother stay with [place] a few hours so she could take a breather. Spouse reports she is exhausted and inquiring if she could get respite hours overnight once in a while so she can sleep. /ZACHARIAH Rodriguez [facility] MANGLE CATCHER Signed: 11/28/2023 20:47 Receipt Acknowledged By: 11/29/2023 08:49 /OLEG Harrell [facility] [employer] 11/29/2023 ADDENDUM STATUS: COMPLETED [facility] SW has discussed private pay overnight care as this is not provided by [place]. [facility] SW discussed Inpaitent Repsite as well. [facility] SW will folow up with spouse and discuss resources available. /OLEG Harrell [facility] [employer] Signed: 11/29/2023 08:51 JENNIFER SEGURA [facility] [place] [facility] Nov 28, 2023 09:30 AM HB NURSING NOTE: LOCAL TITLE: [facility] [...] A DAY 14) INCONT LINER,MENS X-HVY SURECARE #[id number] USE 1 LINER HOLD TOPICALLY AT BEDTIME [...] DAILY FOR PARKINSON'S DISEASE 24) UNDERPAD,BED ULTRASORB [id number] M#3136 USE 2 UNDERPADS ACTIVE TOPICALLY AT [...] in patient's home at time of visit. [place] identified by: Full Name, Facial Recognition Length of visit in home: 50 Minutes Problem addressed for this visit: PD, hematuria, med review, caregiver support Specimen(s) collected during this visit: None NURSING SUMMARY: : RNCM made home visit for chronic disease management, neuro assessment, c/v and c/p assessment. [place] sitting at the kitchen table upon arrival, spouse present. well groomed. Dressed appropriately. Poor eye contact. Soft spoken. Relied on spouse to answer questions. Spouse reports is sleeping most of the day. She has been keeping [place] in his wheelchair more during the day to keep him awake. not interested in puzzles, arts in crafts. enjoys watching TV. [place] not sleeping at night. Spouse is run down and needs a break. She reports she had hard day with last week and she had her brother stay with [place] a few hours so she could take a breather. Spouse reports she is exhausted and inquiring if she could get respite hours overnight once in a while so she can sleep. 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 [place] unsettled at night, taking off depends, trying to get out of bed. Spouse reports somehow positioned himself way down in the bed tangled himself in the sheets and she could barely reposition him and get him up. She is requesting Michael lift. [facility] PT ordered multi-podus boots and they came in. Spouse has questions regarding boots. [facility] PT will f/u incontinent. Reports intermittent hematuria. manages and administers meds in pudding or applesauce, swallowing pills without difficulty. Spouse reports [facility] PCP reviewed risk vs benefit on apixaban and [place] is going to continue taking medication. Spouse [...] ER/HOSPITALIZATIONS NO Teaching/goals: Refer to nursing summary. [place] goal is to live at home safely with his as long as possible with assist from his and [facility], [facility] Patient verbalizes understanding to above and will call with any concerns or changes in condition. For emergent care call 911. Revisit: 12/26 for chronic disease management, neuro assessment, c/v an dc/p assessment, med review, /sharron/ JENNIFER SEGURA RN BSN [facility] MANGLE CATCHER Signed: 11/28/2023 20:45 11/28/2023 ADDENDUM STATUS: COMPLETED [place] unsettled at night, taking off depends, trying to get out of bed. Spouse reports somehow positioned himself way down in the bed tangled himself in the sheets and she could barely reposition him and get him up. She is requesting Michael lift. [facility] PT ordered multi-podus boots and they came in. Spouse has questions regarding boots. [facility] PT will f/u /es/ JENNIFER SEGURA RN BSN [facility] MANGLE CATCHER Signed: 11/28/2023 20:45 Receipt Acknowledged By: * AWAITING SIGNATURE * RAMIN MENDIETA 11/28/2023 ADDENDUM STATUS: COMPLETED Spouse reports [place] is sleeping most of the day. She has been keeping in his wheelchair more during the day to keep him awake. [place] not interested in puzzles, arts in crafts. [place] enjoys watching TV. not sleeping at night. Spouse is run down and needs a break. She reports she had hard day with last week and she had her brother stay with [place] a few hours so she could take a breather. Spouse reports she is exhausted and inquiring if she could get respite hours overnight once in a while so she can sleep. /consuelo SEGURA LENS MATCHER [facility] MANGLE CATCHER Signed: 11/28/2023 20:47 Receipt Acknowledged By: 11/29/2023 08:49 /sharron/ OLEG Sandhu [facility] [employer] 11/29/2023 ADDENDUM STATUS: COMPLETED HB SW has discussed private pay overnight care as this is not provided by [place]. [facility] SW discussed Inpaitent Repsite as well. HB SW will folow up with spouse and discuss resources available. /sharron/ OLEG Sandhu [facility] [employer] Signed: 11/29/2023 08:51 JENNIFER SEGURA [facility]
--- OUTSIDE RECORDS SUMMARY | 2024-10-29 13:40 | XMS_ITS | Encounter Summary ---
Author Organization [facility] Address [address] [place] [address] Phone Care Team Providers Care Magisterial District Judge Name Role Phone Shirin Mcwilliams MD Primary Care Prov ider Encounter Details Date Type Department Care Team (Late st Contact Info) Description 09/04/2024 Documentation Only [facility] [address] [place] [address] Aiyana Esteves [address] [place] [phone] Social History Tobacco Use Types Packs/Day [...] Visit [facility] Mikael Dud[address]oly [address] Sienna ACOSTA [address] [place] [phone] Emil Davis MD [address] [place] [address] [place] [address] documented as of this encounter Visit Diagnoses Not on filedocumented in this encounter Care Teams Magisterial District Judge Relationship Specialty Start Date End Date Shirin Mcwilliams MD [address] [place] [phone] PCP - General 06/30/20 documented as of this encounter
--- OUTSIDE RECORDS SUMMARY | 2024-10-29 13:40 | XMS_ITS | Encounter Summary ---
Author Organization [facility] Address [address] [place] [address] Phone Care Team Providers Care Dry Chain Worker Name Role Phone Shirin Mcwilliams MD Primary Care Prov ider Encounter Details Date Type Department Care Team (Late st Contact Info) Description 09/04/2024 Documentation Only [facility] [address] [place] [address] Aiyana Esteves [address] [place] [phone] Social History Tobacco Use Types Packs/Day [...] Visit [facility] Mikael Dud[address]oly [address] Sienna ACOSTA [address] [place] [phone] Emil Davis MD [address] [place] [address] [place] [address] documented as of this encounter Visit Diagnoses Not on filedocumented in this encounter Care Teams Dry Chain Worker Relationship Specialty Start Date End Date Shirin Mcwilliams MD [address] [place] [phone] PCP - General 06/30/20 documented as of this encounter
--- OUTSIDE RECORDS SUMMARY | 2024-10-29 13:40 | XMS_ITS | Encounter Summary ---
Author Name [facility] [facility] [place] Organization [facility] [place] Address [address] [place] [address] Care Team Providers Care Surface Plate Finisher Name Role Phone LUIS FERNANDO FONTANEZ Primary [...] PART B Jun 20, 2014 PART B [id number] EAMON OLIVIA ERT PATIENT MEDICARE (WNR) MEDICARE (M) PART A Jun 20, 2014 PART A [id number] EAMON OLIVIA ERT PATIENT MEDICARE (WNR) MEDICARE (M) PART A Jun 20, 2014 PART A [id number] [phone] EAMON OLIVIA ERT PATIENT MEDICARE (WNR) MEDICARE (M) PART B Jun 20, 2014 PART B [id number] EAMON OLIVIA ERT PATIENT [facility] PRESCRIPT ION RX Jun 20, 2023 THPRX [id number] EAMON OLIVIA ERT PATIENT [facility] PRESCRIPT ION RX Jun 20, 2022 THPRX [id number] [phone] DAVON OLIVIA JR PATIENT [facility] RX PRESCRIPT ION RX Jun 20, 2022 THPRX [id number] [phone] EAMON OLIV[address] E[address] PATIENT [facility] MAR Jun 20, 2017 [id number] EAMON OLIVIA ERT PATIENT [facility] PE[facility] E Jun 20, 2017 [id number] DAVON OLIVIA JR PATIENT [facility] E Jun 20, 2017 [id number] DAVON OLIVIA JR PATIENT [facility] Jun 20, 2017 [facility] [id number] [phone] EAMON OLIVIA ERT PATIENT [facility] Jun 20, 2023 [id number] EAMON OLIVIA ERT PATIENT Selected Encounter This section includes the information on record at [place] for the Encounter. Date/Time Encounter Type Encounter Description Reason Provider Source November 17, 2023 03:53 PM QNHP OL DIG ASSMT&MGMT 5-10 CLINICAL PHARMACY ICD-10-CM G20.A1 Parkinson's dis w/o dyskinesia, w/o mention of fluctuations JOSE MARIA SHERIDAN E Encounter Template Text not used by [place] Assessments - Encounter Diagnoses This section includes the primary and secondary diagnoses documented for the Encounter. Date/Time Primary/Secondary Diagnosis Diagnosis Name Provider Source November 17, 2023 04:00 PM PRIMARY Parkinson's dis w/o dyskinesia, w/o mention of fluctuations JOSE MARIA SHERIDAN [place] [facility] [place] [facility] Plan of Treatment: Future Appointments (+ 6 [...] AM AMBULATORY - MEDICINE ME [facility] [place] [facility] Jan 04, 2024 01:00 PM AMBULATORY - NONE [facility] [place] [facility] Feb 02, 2024 03:00 PM AMBULATORY - REHAB MEDICIN E [facility] [place] [facility] Feb 14, 2024 12:30 PM AMBULATORY - REHAB MEDICIN E [facility] [place] [facility] Mar 15, 2024 10:00 AM AMBULATORY - REHAB MEDICIN E [facility] [place] [facility] Mar 22, 2024 08:00 AM AMBULATORY - MEDICINE [place] [facility] [place] [facility] Mar 22, 2024 01:00 PM AMBULATORY - NONE [facility] [place] [facility] Mar 27, 2024 02:30 PM AMBULATORY - MEDICINE [place] [facility] [place] [facility] Mar 29, 2024 11:00 AM AMBULATORY - REHAB MEDICIN E [facility] [place] [facility] Apr 12, 2024 11:00 AM AMBULATORY - REHAB MEDICIN E [facility] [place] [facility] Apr 26, 2024 09:00 AM AMBULATORY - MEDICINE [place] [facility] [place] [facility] Apr 26, 2024 11:00 AM AMBULATORY - REHAB MEDICIN E [place] [facility] [place] [facility] Social History: Smoking Status (Most current) and [...] 19, 2023 12:24 PM [facility] Tobacco Use History This section includes a history of the smoking, or tobacco-related health factors, that were collected on or before the date of the Encounter. The data comes from the [place] facility where the Encounter took place. Date/Time Smoking Status/Tobacco Use Comment F acility Jan 15, 2021 11:00 AM VA-TOBACCO NEVER USED [facility] Advance Directives: All historical and [...] Jan 20, 2021 ADVANCE DIRECTIVE DAVIDSHAJIBENTON SALCEDO [facility] Encounter Notes: All associated encounter notes [...] MARIA SHERIDAN EXP COSIGNER: URGENCY: STATUS: COMPLETED [place] is approved for community care Neurology though [...] Parkinson's Disease. Time Spent: 10 mins /sharron/ Jose Maria Sheridan, PharmD, BCACP Clinical Deputy Director Of Public Works Signed: 11/17/2023 16:01 JOSE MARIA SHERIDAN [facility]
--- OUTSIDE RECORDS SUMMARY | 2024-10-29 13:40 | XMS_ITS | Encounter Summary ---
Author Organization [facility] Address [address] [place] [address] Phone Care Team Providers Care Manager English Name Role Phone Shirin Mcwilliams MD Primary Care Prov ider Encounter Details Date Type Department Care Team (Late st Contact Info) Description 06/18/2024 Documentation Only [facility] [address] [place] [address] Frances Guevara [address] [place] [phone] Social History Tobacco Use Types Packs/Day [...] Visit [facility] Mikael Dud[address] Sienna ACSOTA [address] [place] [phone] Emil Davis MD [address] [place] [address] [place] [address] documented as of this encounter Visit Diagnoses Not on filedocumented in this encounter Care Teams Manager English Relationship Specialty Start Date End Date Shirin Mcwilliams MD [address] [place] [phone] PCP - General 06/30/20 documented as of this encounter
--- OUTSIDE RECORDS SUMMARY | 2024-10-29 13:40 | XMS_ITS | Encounter Summary ---
Author Name [facility] [place] Organization [facility] Address [address] [place] [address] Care Team Providers Care Fish Hatchery Manager Name Role Phone HUSEYIN LUIS FERNANDO [...] PART B Jun 20, 2014 PART B [id number] [phone] EAMON OLIVIA ERT PATIENT MEDICARE (WNR) MEDICARE (M) PART A Jun 20, 2014 PART A [id number] EAMON OLIVIA ERT PATIENT MEDICARE (WNR) MEDICARE (M) PART A Jun 20, 2014 PART A [id number] EAMON OLIVIA ERT PATIENT MEDICARE (WNR) MEDICARE (M) PART B Jun 20, 2014 PART B [id number] [phone] EAMON OLIVIA ERT PATIENT OPTUM RX PRESCRIPT ION RX Jun 20, 2023 THPRX [id number] [phone] EAMON OLIVIA ERT PATIENT [facility] RX PRESCRIPT ION RX Jun 20, 2022 THPRX [id number] [phone] DAVON OLVIIA JR PATIENT [facility] RX PRESCRIPT ION RX Jun 20, 2022 THPRX [id number] EAMON OLIVIA ERT PATIENT [facility] Jun 20, 2017 [id number] [phone] EAMON OLIVIA ERT PATIENT [facility] PLAN [facility] PE[facility] E Jun 20, 2017 [id number] [phone] DAVON OLIVIA JR PATIENT [facility] PLAN [facility] TON PEÑA E Jun 20, 2017 [id number] [phone] DAVON OLIVIA JR PATIENT [facility] PLAN USP Jun 20, 2017 USFHP [id number] EAMON OLIVIA ERT PATIENT [facility] Jun 20, 2023 [id number] [phone] EAMON OLIVIA PATIENT Selected Encounter This section includes the information on record at [place] for the Encounter. Date/Time Encounter Type Encounter Description Reason Provider Source Aug 15, 2024 11:20 AM SELF CARE MNGMENT TRAINING [facility] Nursing (RN / LP) ICD-10-CM R21 Rash and other nonspecific skin eruption JENNIFER SEGURA [facility] Encounter Template Text not used by [place] Assessments - Encounter Diagnoses This section includes the primary and secondary diagnoses documented for the Encounter. Date/Time Primary/Secondary Diagnosis Diagnosis Name Provider Source Aug 15, 2024 04:28 PM PRIMARY Rash and other nonspecific skin eruption JENNIFER SEGURA [place] [facility] [place] [facility] Plan of Treatment: Future Appointments (+ 6 [...] BLOOD FIT X1 SCREEN(IN-HOUSE) STOOL FECES [facility] Lab Results: +/- 30 days of the [...] Type Comment Sep 05, 2024 12:00 AM [facility] OCCULT BLOOD FIT X1 SCREEN(IN-HOUSE) FECES Sp ecimen Type: FECES No comment entered. Ordering Provider: LUIS FERNANDO FONTANEZ Report Released Date/Time: May 25, 2024 10:38 AM Reporting Lab: [facility] [address] [facility] [address] Performing Lab: [address] [address] OCCULT BLOOD (FIT)#1 OF 1 POSITIVE HH NEG Vital Signs: All taken on the encounter date This section contains inpatient and outpatient Vital Signs collected on the date of the Encounter. Date/Time Temperature Pulse Blood Pressure Respiratory Rate SP02 Pain Height Weight Body Mass Index Source Aug 15, 2024 11:25 AM 97.8 60 104/60 18 97 0 [facility] Social History: Smoking Status (Most current) [...] 09:30 AM VA-TOBACCO NEVER U SED [facility] Tobacco Use History This section includes a history of the smoking, or tobacco-related health factors, that were collected on or before the date of the Encounter. The data comes from the [place] facility where the Encounter took place. Date/Time Smoking Status/Tobacco Use Comment F acility May 25, 2024 09:30 AM VA-TOBACCO NEVER U SED OTHER TYPE [place] [facility] [place] [facility] Jan 19, 2023 12:24 PM VA-TOBACCO NEVER USED [place] [facility] [place] [facility] Jan 15, 2021 11:00 AM [facility]ACCO [facility] Advance Directives: All historical and current Section [...] 2021 ADVANCE DIRECTIVE B[place]ON ARAUZ EL[facility] Encounter Notes: All associated encounter notes This section contains the clinical notes associated to the Encounter. Date/Time Encounter Note(s) Provider Source Aug 15, 2024 04:14 PM HB NURSING NOTE: LOCAL TITLE: [facility]PC RN PROGRESS NOTE STANDARD TITLE: [facility] NURSING NOTE DATE OF NOTE: AUG 15, 2024@16:14 ENTRY DATE: AUG 15, 2024@16:15:03 AUTHOR: JENNIFER SEGURA EXP COSIGNER: URGENCY: STATUS: COMPLETED Nursing Progress Note Active and Recently Outpatient [...] A DAY 5) CATH,EXTERNAL EXTENDED WEAR SMALL H#9226 USE 1 CATHETER ACTIVE URETHRAL ONCE DAILY Indication: INCONTINENCE 6) CHLORHEXIDINE GLUCONATE 0.12% MOUTHWASH RINSE 15ML BY MOUTH ACTIVE ONCE DAILY - SWISH AND SPIT. DO NOT SWALLOW Indication: FOR INFLAMMATION OF THE GUMS 7) CHOLECALCIF 25MCG (D3-1,000UNIT) TAB TAKE ONE TABLET BY ACTIVE MOUTH ONCE DAILY FOR VITAMIN SUPPLEMENTATION Indication: FOR VITAMIN D DEFICIENCY 8) CLEANSING CLOTH ATTENDS PKT USE ONE WASHCLOTH DIRECTED ACTIVE 7XD Indication: FECAL AND URINE INCONTINENCE 9) DEPEND UNDERWEAR,MAXIMUM,MEN LARGE USE 1 BRIEF DIRECTED ACTIVE THREE TIMES A DAY Indication: INCONTINENCE 10) DIAPER ADULT LARGE EXTRA ABSORBENT USE 1 BRIEF DIRECTED ACTIVE THREE TIMES A DAY Indication: INCONTINENCE 11) GLYCOPYRROLATE 2MG TAB TAKE ONE TABLET BY MOUTH DIRECTED ACTIVE (S) BY PROVIDER 2-3 TIMES A DAY NEEDED FOR SECRETIONS 12) HYDROCHLOROTHIAZIDE 25MG TAB TAKE ONE TABLET BY MOUTH ONCE ACTIVE (S) DAILY Indication: FOR CALCIUM IN URINE 13) HYDROPHILIC (EQV EUCERIN) TOP CREAM APPLY A LIBERAL AMOUNT ACTIVE TOPICALLY ONCE DAILY Indication: FOR DRY SKIN 14) HYDROXYZINE HCL 10MG TAB TAKE ONE TABLET BY MOUTH AT BEDTIME ACTIVE (S) NEEDED FOR SLEEP Indication: INSOMNIA 15) INCONT LINER PREVAIL GUARDS #PV-[id number] USE 1 LINER TOPICALLY ACTIVE TWO TIMES A DAY Indication: INCONTINENCE 16) INCONT LINER,MENS X-HVY SURECARE #[id number] USE 1 LINER ACTIVE TOPICALLY AT BEDTIME Indication: INCONTINENCE 17) WRAP,MALE USE 1 WRAP TOPICALLY AT BEDTIME ACTIVE Indication: INCONTINENCE 18) MELATONIN 5MG CAP/TAB TAKE THREE CAPSULE/TABLETS BY MOUTH AT ACTIVE BEDTIME Indication: FOR INSOMNIA 19) MEMANTINE HCL 10MG TAB TAKE ONE TABLET BY MOUTH TWICE DAILY ACTIVE (S) 20) MIDODRINE HCL 5MG TAB TAKE ONE TABLET BY MOUTH THREE TIMES ACTIVE DAILY NEEDED Indication: FOR LOW BLOOD PRESSURE 21) MULTIVITS W/MINERALS TAB/CAP (NO VIT K) TAKE 1 TABLET BY ACTIVE (S) MOUTH ONCE DAILY Indication: FOR VITAMIN SUPPLEMENTATION 22) NUTRITION SUPL ENSURE PLUS/VANILLA LIQ DRINK 1 CAN BY MOUTH ACTIVE THREE TIMES A DAY Indication: FOR NUTRITIONAL SUPPLEMENTATION 23) OATMEAL,COLLOIDAL CLEANSING BAR/DRY SKIN DIRECTED ACTIVE TOPICALLY ONCE DAILY Indication: FOR SKIN IRRITATION 24) ORAL,SWAB TOOTHETTE USE 1 MOUTH SWAB DIRECTED ONCE DAILY ACTIVE TO USE WITH CHLOREHEXADINE ORAL RINSE 25) POLYETHYLENE GLYCOL 3350 ORAL PWDR TAKE 17 GRAMS(FILL CAP TO ACTIVE 17GM LINE) BY MOUTH ONCE DAILY [MIX WITH 4 TO 8OZ. OF BEVERAGE] Indication: FOR CONSTIPATION 26) RASAGILINE MESYLATE 1MG TAB TAKE ONE TABLET BY MOUTH ONCE ACTIVE (S) DAILY 27) UNDERPAD,BED ULTRASORB 83F10CG #3136 USE 2 UNDERPADS ACTIVE TOPICALLY AT BEDTIME Indication: INCONTINENCE 28) URINARY DRAINAGE BAG BARD #[id number] USE 1 URINARY DRAINAGE BAG ACTIVE EVERY 7 DAYS Indication: INCONTINENCE MEDICATION REVIEW Medication review completed during home [...] Facial Recognition Length of visit in home: 20 minutes Problem addressed for this visit: fit test, rash Specimen(s) collected during this visit: None NURSING SUMMARY: RNCM made home visit for gi assessment, drop off fit test, assess rash. Spouse reports after she gives carbidopa/levodopa his skin becomes pinkish/red, but not all the time. Spouse thinks maybe it's this medication that caused his rash. Spouse reports she will continue to monitor if so she will contact neurologist. Blood pressure fluctuates. Today BP 104/60. Denies chest pain, palpations, dizziness. Abdomen soft non-tender, non-distended + bs x 4. Moving bowels every 2-3 days. Denies blood in stool. RNCM dropped off another occult fit test. Spouse reports she labeled the specimen correctly last time, but will collect another sample and mail it in. manages and administers meds. Administering meds in pudding or applesauce. Reviewed medication regimen. Spouse administering meds as directed. Blood Pressure: 104/60 (08/15/2024 11:25) Pulse: 60 (08/15/2024 11:25) Respiration: 18 (08/15/2024 11:25) Temperature: 97.8 F [36.6 C] (08/15/2024 11:25) Pain Score: 0 (08/15/2024 11:25) EXAMINATION: Lungs: Ls clear throughout. Resp easy and reg. Edema: PPP, No edema HR: Strong and reg. Denies chest pain, palpations, dizziness. Bowel/Bladder: Incontinent of urine. Intermittent Hematuria. uses quick change urine management wrap with oversized poise pad. Condom catheter at night. Occasional incontinence of stool. Denies diarrhea/constipation. Skin: Clean, dry, and intact. No skin breakdown If pain score is above 0/10: Are you having any new pain or worsening chronic pain? No Are you satisfied with your current pain management plan? Yes - Continue with your current pain management plan. Home Safety FALLS NO INFECTIONS NO ER/HOSPITALIZATIONS NO Teaching/goals: Refer to nursing summary for teaching. goal is to live at home safely with his as long as possible with assist from his and RADHA GASTON Patient verbalizes understanding to above and will call with any concerns or changes in condition. For emergent care call 911. Plan for next visit: 08/28/24 for chronic disease management, c/v and c/p assessment, neuro assessment, /sharron/ JENNIFER SEGURA RN BSN [facility] ABAP DEVELOPER Signed: 08/15/2024 16:29 JENNIFER SEGURA [place] [facility]
--- OUTSIDE RECORDS SUMMARY | 2024-10-29 13:40 | XMS_ITS | Encounter Summary ---
Author Organization [facility] Address [address] [place] [address] Phone Care Team Providers Care Topographical Field Assistant Name Role Phone Shirin Mcwilliams MD Primary Care Prov ider Encounter Details Date Type Department Care Team (Late st Contact Info) Description 09/04/2024 Documentation Only [facility] [address] [place] [address] Aiyana Esteves [address] [place] [phone] Social History Tobacco Use Types Packs/Day [...] [facility] Mikael Dudley[address] Dr Sienna ACOSTA [address] [place] [phone] Emil Davis MD [address] [place] [address] [place] [address] documented as of this encounter Visit Diagnoses Not on filedocumented in this encounter Care Teams Topographical Field Assistant Relationship Specialty Start Date End Date Shirin Mcwilliams MD [address] [place] [phone] PCP - General 06/30/20 documented as of this encounter
--- OUTSIDE RECORDS SUMMARY | 2024-10-29 13:40 | XMS_ITS | Clinical Summary ---
Author Organization [facility] Address [address] [phone] Phone Care Team Providers Care Scheduling Manager Name Role Phone Shirin Mcwilliams MD Primary Care Prov ider Allergies Active Allergy Reactions Criticality Noted Date Comments Amoxicillin Hives 09/16/2021 Erythromycin 09/16/2021 Flecainide Hives 09/16/2021 Other reaction(s): Headache Iodinated Contrast Media Shortness of breath High 09/16/2021 Iodine 03/01/2018 Levofloxacin Itching Medium 09/12/2020 Quetiapine Anxiety,GI intolerance,Itching ,Palpitations,Rash, Shortness of breath,Swelling,Oth er (see comments) High 07/10/2020 Other reaction(s): Throat Tightness Statins Anaphylaxis High 09/02/2020 Other reaction(s): rhabdomyolysis Tamsulosin Other (see comments) Medium 09/12/2020 Medications Eliquis 5 MG tablet Take 1 tablet by mouth twice a day 08/17/2021 Active carbidopa-levod opa CR (SINEMET CR) 25-100 MG per CR tablet Take 1 tablet by mouth in the morning and 1 tablet in the evening. 06/10/2020 Active famotidine (PEPCID) 10 MG tablet Take 20 mg by mouth in the morning. Active Melatonin 5 MG tablet Take 20 mg by mouth daily Active polyethylene glycol (GLYCOLAX) 17 GM/SCOOP powder Take 17 g by mouth in the morning. 05/23/2021 Active Multiple Vitamin (MULTIVITAMINS PO) Active carbidopa-levod opa (SINEMET) 25-100 MG per tablet Take 1 tablet by mouth in the morning and 1 tablet in the evening and 1 tablet before bedtime. 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 and other lower urinary tract (LUTS) 09/16/2021 Renal stone 09/16/2021 Cystic kidney disease 09/16/2021 Urinary tract infection 09/16/2021 Increased frequency of urination 09/16/2021 Personal history of kidney stones 09/16/2021 Ureteric stone 09/12/2020 Encounters Date Type Department Care Team Description 09/05/2024 2:00 PM EDT Office Visit [facility] Dr Sienna ACOSTA [address] [place] [phone] Emil Davis MD Hypercalciuria (Primary Dx) 09/04/2024 Documentation Only [facility] [address] [place] [address] Aiyana Esteves 09/04/2024 Documentation Only [facility] [address] [place] [address] Aiyana Esteves 09/04/2024 Documentation Only [facility] [address] [place] [phone] Aiyana Esteves 09/04/2024 Documentation Only [facility] [address] [place] [address] Aiyana Esteves from Last 3 Months Immunizations Immunization Administration Dates Next Due Maricruz SARS-COV-2 08/30/2020 Family History Medical History Relation Comments Dementia Father Diabetes Mother Relation Status Comments Father Mother Social History Tobacco Use Types Packs/Day Years Used Date Smoking Tobacco: Never Smokeless Tobacco: Never Tobacco Cessation:Counseling Given: Not Answered Alcohol Use Standard Drinks/Week Comments Never 0 [...] Not on file Not o n file Plan of Treatment Upcoming Encounters Date Type Department Care Team (Late st Contact Info) Description 09/09/2025 2:00 PM EDT Office Visit [facility] Yoly Scales [address] [place] [phone] Emil Davis MD [facility] [place] [phone] Health Maintenance Due Date Last Done Comments Colorectal Cancer Screening: Annual FOBT 1998 Colorectal Cancer Screening: Colonoscopy 1998 Colorectal Cancer Screening: Sigmoidoscopy 1998 Diabetes: Ophthalmology Exam 07/26/2024 Diabetes: Pedal Pulse Checked 07/26/2024 Diabetes: Sensory Foot Exam 07/26/2024 Diabetes: Visual Foot Exam 07/26/2024 Diabetes: Hemoglobin A1C 08/14/2024 05/14/2024 Pneumococcal Vaccine: 50+ Years Completed 05/09/2018, 02/24/2017, 08/18/2016, Additional history exists Pneumococcal Vaccine: Peds (0 to 5 Years) and At-Risk Patients (6 to 49 Years) Discontinued 05/09/2018, 02/24/2017, 08/18/2016, Additional history exists Influenza Vaccine Completed 03/28/2024, , 12/17/2021, Additional history exists Hepatitis B Vaccine Aged Out No longe r eligible based on patient's age to complete this topic Insurance [facility] Care Teams Scheduling Manager Relationship Specialty Start Date End Date Shirin Mcwilliams MD [address] [place] [phone] PCP - General 06/30/20
--- OUTSIDE RECORDS SUMMARY | 2024-10-29 13:40 | XMS_ITS ---
Author Name Department [place] Organization [facility] Address [address] [place] [id number] Care Team Providers Care Apprentice Architect Name Role Phone HUSEYIN LUIS FERNANDO Primary [...] PART B Jun 20, 2014 PART B [id number] EAMON OLIVIA ERT PATIENT MEDICARE (WNR) MEDICARE (M) PART A Jun 20, 2014 PART A [id number] EAMON OLIVIA ERT PATIENT MEDICARE (WNR) MEDICARE (M) PART A Jun 20, 2014 PART A [id number] [phone] EAMON OLIVIA ERT PATIENT MEDICARE (WNR) MEDICARE (M) PART B Jun 20, 2014 PART B [id number] AEMON OLIVIA ERT PATIENT OPTUM RX PRESCRIPT ION RX Jun 20, 2023 THPRX [id number] EAMON OLIVIA ERT PATIENT OPTUM RX PRESCRIPT ION RX Jun 20, 2022 THPRX [id number] DAVON OLIVIA JR PATIENT OPTUM RX PRESCRIPT ION RX Jun 20, 2022 THPRX [id number] [phone] EAMON OLIVIA ERT PATIENT [facility] Jun 20, 2017 [id number] EAMON OLIVIA ERT PATIENT [facility] PLAN [facility] E Jun 20, 2017 [id number] DAVON OLIVIA JR PATIENT [facility] PLAN [facility] E Jun 20, 2017 [id number] DAVON OLIVIA JR PATIENT [facility] PLAN USP Jun 20, 2017 USP [id number] [phone] EAMON OLIVIA ERT PATIENT [facility] Jun 20, 2023 [id number] EAMON OLIVIA ERT PATIENT Selected Encounter This section includes the information on record at [place] for the Encounter. Date/Time Encounter Type Encounter Description Reason Provider Source Aug 01, 2024 11:15 AM MEASURE BLOOD OXYGEN LEVEL [facility] Nursing (RN / LP) ICD-10-CM R13.10 Dysphagia, unspecified RISING,JENNIFER L IHE Encounter Template Text not used by [place] Assessments - Encounter Diagnoses This section includes the primary and secondary diagnoses documented for the Encounter. Date/Time Primary/Secondary Diagnosis Diagnosis Name Provider Source Aug 01, 2024 02:07 PM PRIMARY Dysphagia, unspecified RISING,HEATHE R L [place] [facility] [place] [facility] Aug 01, 2024 02:07 PM SECONDARY Delirium due to known physiological condition RISING,HEATHE R L [place] [facility] [place] [facility] Aug 01, 2024 02:07 PM SECONDARY Hematuria, unspecified RISING,HEATHE R L [place] [facility] [place] [facility] Aug 01, 2024 02:07 PM SECONDARY Parkinson's dis w/o dyskinesia, w/o mention of fluctuations RISING,HEATHE R L [facility] Aug 01, 2024 02:07 PM SECONDARY Unspecified urinary incontinence RISING,HEATHE R L [facility] Plan of Treatment: Future Appointments (+ [...] BLOOD FIT X1 SCREEN(IN-HOUSE) STOOL FECES SP [facility] Lab Results: +/- 30 days of [...] Type Comment Jul 03, 2024 01:30 PM [facility] PTH INTACT SERUM Specimen Type: SERUM No comment entered. Ordering Provider: LUIS FERNANDO FONTANEZ Report Released Date/Time: Jun 18, 2024 08:46 AM Reporting Lab: [facility] [address] [facility] [address] Performing Lab: [address] [address] PTH INTACT 34.0 pg/mL 8.7-77.1 Jul 03, 2024 01:30 PM [facility] FOLATE (WROX) SERUM Specimen Type: SERUM No comment entered. Ordering Provider: LUIS FERNANDO FONTANEZ Report Released Date/Time: May 25, 2024 08:50 AM Reporting Lab: [facility] [address] [facility] [address] Performing Lab: [facility] [address] [facility] [address] FOLATE (WROX) 8.8 ng/mL >5.2 Jul 03, 2024 01:30 PM [facility] MAGNESIUM SERUM Specimen Type: SERUM No comment entered. Ordering Provider: LUIS FERNANDO FONTANEZ Report Released Date/Time: May 25, 2024 08:50 AM Reporting Lab: [facility] [address] [facility] [address] Performing Lab: [address] [address] MAGNESIUM 1.9 mg/dL 1.6-2.6 Jul 03, 2024 01:30 PM [facility] BASIC METABOLIC PANEL (non-fasting) SERUM Spe cimen Type: SERUM No comment entered. Ordering Provider: LUIS FERNANDO FONTANEZ Report Released Date/Time: May 25, 2024 08:50 AM Reporting Lab: [facility] [address] [facility] [address] Performing Lab: [facility] [address] [facility] [address] UREA NITROGEN 15 mg/dL 7-25 GLUCOSE 80 mg/dL 65-100 SODIUM 138 mmol/L 135-145 POTASSIUM 3.5 mmol/L 3.5-5.0 CHLORIDE 101 mmol/L 100-110 CO2 28 meq/L 20-30 CREATININE, Serum 0.88 mg/dL 0.50-1.40 eGFR(CKD-EPI 2020) 90 mL/min >60 Jul 03, 2024 01:30 PM [facility] LIVER FUNCTION SERUM Specimen Type: SERUM No comment entered. Ordering Provider: LUIS FERNANDO FONTANEZ Report Released Date/Time: May 25, 2024 08:50 AM Reporting Lab: [address] [address] Performing Lab: [address] [address] PROTEIN,TOTAL 7.0 g/dL 6.0-8.3 ALBUMIN 3.5 g/dL 3.5-5.0 ALKALINE PHOSPHATASE 93 U/L 40-150 AST 19 U/L 5-34 ALT 7 U/L BILIRUBIN, TOTAL 0.3 mg/dL 0.2-1.2 Jul 03, 2024 01:30 PM [facility] VITAMIN B12 SERUM Specimen Type: SERUM No comment entered. Ordering Provider: LUIS FERNANDO FONTANEZ Report Released Date/Time: May 25, 2024 08:50 AM Reporting Lab: [address] [address] Performing Lab: [address] [address] VITAMIN B12 435 pg/mL 200-900 Jul 03, 2024 01:30 PM [facility] VITAMIN D (25-OH) SERUM Specimen Type: SERUM No comment entered. Ordering Provider: LUIS FERNANDO FONTANEZ Report Released Date/Time: May 25, 2024 08:50 AM Reporting Lab: [address] [address] Performing Lab: [address] [address] VITAMIN D (25-OH) 37 ng/mL 20-50 Jul 03, 2024 01:30 PM [facility] IRON & TIBC PANEL SERUM Specimen Type: SERUM No comment entered. Ordering Provider: LUIS FERNANDO FONTANEZ Report Released Date/Time: May 25, 2024 08:50 AM Reporting Lab: [address] [address] Performing Lab: [address] [address] TIBC 351 ug/dL 204-475 IRON 111 ug/dL 40-160 Transferrin Saturation 31.6 20.0-50.0 Transferrin (TRF) 266 mg/dL 200-360 Jul 03, 2024 01:30 PM [facility] FERRITIN SERUM Specimen Type: SERUM No comment entered. Ordering Provider: LUIS FERNANDO FONTANEZ Report Released Date/Time: May 25, 2024 08:50 AM Reporting Lab: [place] [facility] [facility] [address] [facility] [address] Performing Lab: [place] [facility] [address] [facility] [address] FERRITIN 28 ng/mL 20-300 Jul 03, 2024 01:30 PM [facility] RETICULOCYTES BLOOD Specimen Type: BLOOD No comment entered. Ordering Provider: LUIS FERNANDO FONTANEZ Report Released Date/Time: May 25, 2024 08:50 AM Reporting Lab: [place] [facility] [address] [facility] [address] Performing Lab: [facility] [address] [address] RETIC % 0.9 0.6-2.0 RETIC, ABS 44.5 10*3/uL 30.0-90.0 RET-HE 31.3 pg 27.9-42.0 Jul 03, 2024 01:30 PM [facility] TSH SERUM Specimen Type: SERUM No comment entered. Ordering Provider: LUIS FERNANDO FONTANEZ Report Released Date/Time: May 25, 2024 08:50 AM Reporting Lab: [place] [facility]N [facility] [address] [address] Performing Lab: [place] [facility] [address] [facility] [address] TSH 2.21 u[IU]/mL 0.35-5.00 Jul 03, 2024 01:30 PM [facility] PO4 SERUM Specimen Type: SERUM No comment entered. Ordering Provider: LUIS FERNANDO FONTANEZ Report Released Date/Time: May 25, 2024 10:21 AM Reporting Lab: [place] [facility] [address] [address] Performing Lab: [place] [facility] [address] [address] PO4 2.8 mg/dL 2.5-5.0 Jul 03, 2024 01:30 PM [facility] URIC ACID SERUM Specimen Type: SERUM No comment entered. Ordering Provider: LUIS FERNANDO FONTANEZ Report Released Date/Time: Jun 18, 2024 08:46 AM Reporting Lab: [address] [address] Performing Lab: [address] [address] URIC ACID 5.8 mg/dL 3.5-7.2 Jul 03, 2024 01:30 PM [facility] CBC AND DIFF (AUTO) BLOOD Specimen Type: BLOO D No comment entered. Ordering Provider: LUIS FERNANDO FONTANEZ Report Released Date/Time: May 25, 2024 08:50 AM Reporting Lab: [address] [address] Performing Lab: [address] [address] WBC 8.62 10*3/uL 4.50-11.00 RBC 4.84 10*6/uL [...] 0.0 0.0-0.0 NRBC, ABS 0.00 10*3/uL 0.00-0.00 Jul 03, 2024 01:30 PM [facility] MAGNESIUM SERUM Specimen Type: SERUM No comment entered. Ordering Provider: LUIS FERNANDO FONTANEZ Report Released Date/Time: Jun 18, 2024 08:46 AM Reporting Lab: [facility] [address] [facility] [address] Performing Lab: [address] [address] MAGNESIUM 1.8 mg/dL 1.6-2.6 Vital Signs: All taken on the encounter date This section contains inpatient and outpatient Vital Signs collected on the date of the Encounter. Date/Time Temperature Pulse Blood Pressure Respiratory Rate SP02 Pain Height Weight Body Mass Index Source Aug 01, 2024 12:07 PM 98.1 58 110/70 18 99 0 183.6 31 [facility] Social [...] Facil ity May 25, 2024 09:30 AM [place]-TOBACCO NEVER U SED CIGARETTES [facility] Tobacco Use History This section includes a history of the smoking, or tobacco-related health factors, that were collected on or before the date of the Encounter. The data comes from the [place] facility where the Encounter took place. Date/Time Smoking Status/Tobacco Use Comment F acility May 25, 2024 09:30 AM [place]-TOBACCO NEVER U SED OTHER TYPE [facility] Jan 19, 2023 12:24 PM VA-TOBACCO NEVER USED [facility] Jan 15, 2021 11:00 AM VA-TOBACCO NEVER USED [facility] Advance Directives: All historical and [...] Jan 20, 2021 ADVANCE DIRECTIVE DAVIDSHAJIBENTON SALCEDO [facility] Encounter Notes: All associated encounter notes This section contains the clinical notes associated to the Encounter. Date/Time Encounter Note(s) Provider Source Aug 01, 2024 12:14 PM HB NURSING NOTE: LOCAL TITLE: [facility] RN PROGRESS NOTE STANDARD TITLE: HB NURSING NOTE DATE OF NOTE: AUG 01, 2024@12:14 ENTRY DATE: AUG 01, 2024@12:14:39 AUTHOR: JENNIFER SEGURA EXP COSIGNER: URGENCY: STATUS: [...] A DAY 5) CATH,EXTERNAL EXTENDED WEAR SMALL H#[id number] USE 1 CATHETER ACTIVE (S) URETHRAL ONCE DAILY Indication: INCONTINENCE 6) CHLORHEXIDINE [...] Indication: INSOMNIA 14) INCONT LINER PREVAIL GUARDS #[id number] USE 1 LINER TOPICALLY ACTIVE TWO TIMES A DAY Indication: INCONTINENCE 15) INCONT LINER,MENS [id number] USE 1 LINER ACTIVE TOPICALLY AT BEDTIME [...] NEEDED Indication: FOR LOW BLOOD PRESSURE 20) MULTIVITS W/MINERALS TAB/CAP (NO VIT K) TAKE 1 TABLET BY ACTIVE MOUTH ONCE DAILY Indication: FOR VITAMIN SUPPLEMENTATION 21) NUTRITION SUPL ENSURE PLUS/VANILLA LIQ DRINK 1 CAN BY MOUTH ACTIVE THREE TIMES A DAY Indication: FOR NUTRITIONAL SUPPLEMENTATION 22) OATMEAL,COLLOIDAL CLEANSING BAR/DRY SKIN DIRECTED ACTIVE TOPICALLY ONCE DAILY Indication: FOR SKIN IRRITATION 23) ORAL,SWAB TOOTHETTE USE [...] MOUTH ONCE ACTIVE DAILY 26) UNDERPAD,BED ULTRASORB [id number] #[id number] USE 2 UNDERPADS ACTIVE TOPICALLY AT BEDTIME Indication: INCONTINENCE 27) URINARY DRAINAGE BAG [facility] #[id number] USE 1 URINARY DRAINAGE BAG ACTIVE (S) EVERY 7 DAYS Indication: INCONTINENCE Pending Outpatient Medications Status 1) CLEANSING CLOTH ATTENDS PKT USE ONE WASHCLOTH DIRECTED PENDING 7XD Indication: FECAL AND URINE INCONTINENCE 28 Total Medications MEDICATION REVIEW Medication review completed [...] Recognition Length of visit in home: 60 Minutes Problem addressed for this visit: PD, Swallowing, nutrition Specimen(s) collected during this visit: None NURSING SUMMARY: RNCM made home visit for c/v and c/p assessment, assess diet and toleration, neuro assessment, draw labs. sitting at the kitchen table upon arrival, spouse present. Well groomed. Dressed appropriately. Poor eye contact, flat affect, relies on spouse to answer questions. Alert Oriented person, place, able to state year reports month Jun. Only 2 weeks off. Speech soft and monotone, able to understand. Muscle rigidity to upper and lower extremities. that starts early evening. No hallucinations or behavior issues at this time. Spouse reports wasn't feeling well this past weekend, increased confusion and decrease appetite, but back to baseline on Tuesday. Spouse reports had a rash 2 weeks ago, stopped using the new dandruff shampoo she purchased, and rash cleared up and started using shampoo again and rash came back. Stopped using the shampoo all together and rash free since. Blood pressure fluctuates. Today BP 110/70. Denies chest pain, palpations, dizziness. Afib controlled with meds. On apixaban. Taking as directed. Denies bleeding. Reviewed bleeding precautions. High fall risk. Reviewed fall prevention . Abdomen soft non-tender, non-distended + bs x 4. Moving bowels every 2-3 days. Spouse removed the g-tube herself on 07/07, reports g-tube not in use and Felton eating and drinking well and didn't want to wait for the appt for removal. so she removed it. Spouse reports Felton is doing well. G-tube site healed No redness or drainage noted. Dysphagia: Diet minced and moist diet with thin liquids. eating 3 meals/day. Foods cut into very small pieces, or she purees. Drinking 48 oz of fluid daily. Denies any choking episodes. Reports weight up to 183.6lbs. manages and administers meds. Administering meds in pudding or applesauce. Reviewed medication regimen. Spouse administering meds as directed. Spouse requesting multivitamin to be changed back to tablet form. doesn't like the taste of the multivitamin solution starts to gag and spits it out. Blood Pressure: 110/70 (08/01/2024 12:07) Pulse: 58 (08/01/2024 12:07) Respiration: 18 (08/01/2024 12:07) Temperature: 98.1 F [36.7 C] (08/01/2024 12:07) Pain Score: 0 (08/01/2024 12:07) EXAMINATION: Lungs: Ls clear throughout. Resp easy [...] Teaching/goals: Refer to nursing summary for teaching. [place] goal is to live at home safely with his as long as possible with assist from his and [facility] Patient verbalizes understanding to above and will call with any concerns or changes in condition. For emergent care call 911. Plan for next visit: 08/28/24 for chronic disease management, c/v and c/p assessment, neuro assessment, /sharron/ JENNIFER SEGURA CASH[employer]ERS [employer] [facility] FUNCTIONAL MANAGER Signed: 08/01/2024 14:07 JENNIFER SEGURA CN[facility]L [facility]
--- OUTSIDE RECORDS SUMMARY | 2024-10-29 13:40 | XMS_ITS | Encounter Summary ---
Author Name Department [place] Organization [place] Address [address] [place] [id number] Care Team Providers Care Sand Drier Name Role Phone HUSEYIN LUIS FERNANDO Primary [...] PART B Jun 20, 2014 PART B [id number] EAMON OLIVIA ERT PATIENT MEDICARE (WNR) MEDICARE (M) PART A Jun 20, 2014 PART A [id number] EAMON OLIVIA ERT PATIENT MEDICARE (WNR) MEDICARE (M) PART A Jun 20, 2014 PART A [id number] EAMON OLIVIA ERT PATIENT MEDICARE (WNR) MEDICARE (M) PART B Jun 20, 2014 PART B [id number] EAMON OLIVIA ERT PATIENT [facility]UM RX PRESCRIPT ION RX Jun 20, 2023 THPRX [id number] [phone] EAMON OLIVIA ERT PATIENT OPTUM RX PRESCRIPT ION RX Jun 20, 2022 THPRX [id number] DAVON OLIVIA JR PATIENT [facility] RX PRESCRIPT ION RX Jun 20, 2022 THPRX [id number] [phone] EAMON OLIVIA ERT PATIENT [facility] Jun 20, 2017 [id number] EAMON OLIVIA ERT PATIENT [facility] TON PE[facility] E Jun 20, 2017 [id number] DAVON OLIVIA JR PATIENT [facility] T[facility] E Jun 20, 2017 [id number] DAVON OLIVIA JR PATIENT [facility] USP Jun 20, 2017 [id number] EAMON OLIVIA ERT [facility] Jun 20, 2023 [id number] EAMON OLIVIA ERT PATIENT Selected Encounter This section includes the information on record at [place] for the Encounter. Date/Time Encounter Type Encounter Description Reason Provider Source Feb 14, 2024 12:30 PM EVALUATE SWALLOWING FUNCTION SPEECH-LANGUAGE PATHOLOGY ICD-10-CM R13.12 Dysphagia, oropharyngeal phase CARMELO WESTFALL [facility] Encounter Template Text not used by [place] Assessments - Encounter Diagnoses This section includes the primary and secondary diagnoses documented for the Encounter. Date/Time Primary/Secondary Diagnosis Diagnosis Name Provider Source Feb 14, 2024 01:03 PM PRIMARY Dysphagia, oropharyngeal phase CARMELO WESTFALL [place] [facility] [place] [facility] Plan of Treatment: Future Appointments (+ 6 [...] E [facility] [place] [facility] Mar 22, 2024 08:00 AM AMBULATORY - MEDICINE [place] C [facility] [facility] Mar 22, 2024 01:00 PM AMBULATORY - NONE [facility] [place] [facility] Mar 27, 2024 02:30 PM AMBULATORY - MEDICINE [place] C [facility] [place] [facility] Mar 29, 2024 11:00 AM AMBULATORY - REHAB MEDICIN E [facility] [place] [facility] Apr 12, 2024 11:00 AM AMBULATORY - REHAB MEDICIN E [facility] [place] [facility] Apr 26, 2024 09:00 AM AMBULATORY - MEDICINE [place] C [facility] [facility] Apr 26, 2024 11:00 AM AMBULATORY - REHAB MEDICIN E [facility] [place] [facility] Jul 10, 2024 12:30 PM AMBULATORY - REHAB MEDICIN E [facility] [place] [facility] Jul 17, 2024 02:00 PM AMBULATORY - REHAB MEDICIN E [place] [facility] [place] [facility] Social History: Smoking Status (Most current) and [...] 19, 2023 12:24 PM VA-TOBACCO NEVER USED [facility] Tobacco Use History This section includes a history of the smoking, or tobacco-related health factors, that were collected on or before the date of the Encounter. The data comes from the [place] facility where the Encounter took place. Date/Time Smoking Status/Tobacco Use Comment F acility Jan 15, 2021 11:00 AM VA-TOBACCO NEVER USED [facility] Advance Directives: All historical and current [...] 2021 ADVANCE DIRECTIVE BENTON ARAUZ CNTRTricia WSTRN [facility] Encounter Notes: All associated encounter notes [...] modified clinical evaluation of dysphagia (KRISTEN) via VVC. This assessment is subjective and cannot determine or r/o the presence of aspiration. [place] is a 73-year-old male with a history of Parkinson's disease. Consult initiated for concerns related to swallowing pills. Active problems - Computerized Problem List is the source for the followin. Obstructive sleep apnea 2. Nephrolithiasis 3. Excessive salivation 4. HTN - Hypertension ([facility] [id number]) 5. Constipation 6. Under care of multiple [...] reflux disease 31. AF- Atrial Fibrillation (SCT [id number]) 32. Parkinson's disease 33. Kidney Stone ([facility] [id number]) Progress notes reviewed. Encounter time - 60 minutes O:The following was addressed during this encounter: //'S PERCEPTION OF THE PROBLEM - [place] reports challenges with swallowing pills. //MODIFIED ORAL MOTOR EXAM - An oral motor speech exam revealed the structures and functions of veterans speech mechanism to be within normal limits. All targets are reached. Voluntary cough and glottal coup are WNL. //3OZ WATER TEST (Eva Dysphagia. 2007;23(3):244-50) The 3-oz water swallow test is a sensitive screening tool for identifying veterans at risk for clinically significant aspiration. Failed - needed no assistance with the cup and consumed all the water at once. Coughing following the swallow was appreciated. //EDUCATION - 1. [place]. was educated on the importance of eating behavior to a safe swallow and encouraged to slow rate, take smaller sips/bites, chew solids well, and take pills in applesauce. 2. The modified barium swallow study (MBSS) was recommended and explained. The risks and benefits of the procedure were discussed. verbalized understanding and agreed to the procedure. A: . with Parkinson's Disease with recent concerns re: swallowing. Dysphagia is a common symptom of PD. Will need an MBSS to objectively assess the oral and pharyngeal stage of the swallow. P: DEMI 03/15/24 @ 1000 via C /sharron/ AMARIS WESTFALL M.S.,[facility] [employer] CHIEF SPEECH-LANGUAGE PATHOLOGIST Signed: 02/21/2024 19:14 /sharron/ LUIS FERNANDO HICKEY-C [facility] NURSE PRACTITIONER Cosigned: 02/25/2024 11:46 Receipt Acknowledged By: 02/27/2024 15:59 /sharron/ EBONY ZIMMERMAN ADVANCED INTEGRITY ANALYST AMARIS WESTFALL [facility]L [facility]
--- OUTSIDE RECORDS SUMMARY | 2024-10-29 13:40 | XMS_ITS ---
Author Name [facility] [place] Organization [facility] Address [address] [place] [address] Care Team Providers Care Wrecking Crane Engine Operator Name Role Phone HUSEYIN LUIS FERNANDO Primary Care Provider Unavailabl e MEGAN SLAUGHTER Unavailable Unavailable CHAPALEXY AMANDO Unavailable Unavailable RARAMIN KEYES Unavailable Unavailable FEILEN, KALYAN Unavailable Unavailable GOLD, KAMILAH Unavailable Unavailable RIGO FENTON Unavailable Unavailable RISING, JENNIFER Unavailable Unavailable SAMEUL, AMARIS Unavailable Unavailable MITALI, CANDICE Unavailable Unavailable [...] PART B Jun 20, 2014 PART B [id number] EAMON OLIVIA ERT PATIENT MEDICARE (WNR) MEDICARE (M) PART A Jun 20, 2014 PART A [id number] [id number] [phone] EAMON OLIVIA ERT PATIENT MEDICARE (WNR) MEDICARE (M) PART A Jun 20, 2014 PART A [id number] [phone] EAMON OLIVIA ERT PATIENT MEDICARE (WNR) MEDICARE (M) PART B Jun 20, 2014 PART B [id number] EAMON OLIVIA ERT PATIENT OPTUM RX PRESCRIPT ION RX Jun 20, 2023 THPRX [id number] EAMON OLIVIA ERT PATIENT OPTUM RX PRESCRIPT ION RX Jun 20, 2022 THPRX [id number] DAVON OLIVIA JR PATIENT OPTUM RX PRESCRIPT ION RX Jun 20, 2022 THPRX [id number] EAMON OLIVIA ERT PATIENT [facility] AugJun 20, 2017 [id number] [phone] EAMON OLIVIA ERT PATIENT [facility] [place] E Jun 20, 2017 [id number] DAVON OLIVIA JR PATIENT [facility] E Jun 20, 2017 [id number] DAVON OLIVIA JR PATIENT [facility] Jun 20, 2017 USP [id number] [phone] EAMON OLIVIA ERT PATIENT [facility] Jun 20, 2023 [id number] EAMON OLIVIA ERT PATIENT Selected Encounter This section includes the information on record at [place] for the Encounter. Date/Time Encounter Type Encounter Description Reason Provider Source Aug 28, 2024 10:00 AM SELF CARE MNGMENT TRAINING [facility] Nursing (RN / LP) ICD-10-CM G20.A1 Parkinson's dis w/o dyskinesia, w/o mention of fluctuations RISING,HEATHE R L E Encounter Template Text not used by [place] Assessments - Encounter Diagnoses This section includes the primary and secondary diagnoses documented for the Encounter. Date/Time Primary/Secondary Diagnosis Diagnosis Name Provider Source Aug 28, 2024 04:17 PM PRIMARY Parkinson's dis w/o dyskinesia, w/o mention of fluctuations RISING,HEATHE R L [place] [facility] [place] [facility] Aug 28, 2024 04:17 PM SECONDARY Dysphagia, unspecified RISING,HEATHE R L [facility] [place] [facility] Aug 28, 2024 04:17 PM SECONDARY Rash and other nonspecific skin eruption JIE SEGURA [facility] Plan of Treatment: Future Appointments (+ 6 months) and Future Tests (+/- 45 days) The Plan of Treatment section includes future care activities for the patient from all [place] treatmentfacilities. This section includes future appointments and [...] of theEncounter. The data comes from all [place] treatment facilities. Test Date/Time Test Type Test Details Facility Name Sep 11, 2024 12:00 AM Laboratory - Chemi strPhobious Order OCCULT BLOOD FIT X1 SCREEN(IN-HOUSE) STOOL FECES SP [facility] Lab Results: +/- 30 days of [...] Type Comment Sep 24, 2024 11:00 AM [facility] LIPID PANEL, NON FASTING SERUM Specimen Type: SERUM No comment entered. Ordering Provider: LUIS FERNANDO FONTANEZ Report Released Date/Time: Sep 24, 2024 11:37 AM Reporting Lab: [facility] [address] [facility] [address] Performing Lab: [facility] [address] [facility] [address] CHOLESTEROL 183 mg/dL TRIGLYCERIDE 59 mg/dL 0-150 LDL calculated 123 mg/dL 0-129 CHOL/HDL 3.8 HDL CHOLESTEROL 48 mg/dL 40-60 Sep 24, 2024 11:00 AM [facility] HEMOGLOBIN A1C PANEL BLOOD Specimen Type: BLO OD Comment: Values obtained from A1C measurements can vary. For atypical A1C assays, a reported value of 7.0 could actually be between 6.72 and 7.28 if measured by a reference method. A reported value of 9.0 could actually be between 8.73 and 9.27. Ref: http://www.ngsp.org/CAPdata.asp Ordering Provider: LUIS FERNANDO FONTANEZ Report Released Date/Time: Sep 24, 2024 02:09 PM Reporting Lab: [address] [address] Performing Lab: [address] [address] HEMOGLOBIN A1C 5.2 4.0-5.6 Sep 24, 2024 11:00 AM [facility] CBC AND DIFF (AUTO) BLOOD Specimen Type: BLOO D No comment entered. Ordering Provider: LUIS FERNANDO FONTANEZ Report Released Date/Time: Sep 12, 2024 12:12 PM Reporting Lab: [address] [address] Performing Lab: [address] [address] WBC 6.46 10*3/uL 4.50-11.00 RBC 4.67 10*6/uL [...] 10*3/uL 0.00-0.00 Sep 05, 2024 12:00 AM [facility] OCCULT BLOOD FIT X1 SCREEN(IN-HOUSE) FECES Sp ecimen Type: FECES No comment entered. Ordering Provider: LUIS FERNANDO FONTANEZ Report Released Date/Time: May 25, 2024 10:38 AM Reporting Lab: [facility] [address] [facility] [address] Performing Lab: [address] [address] OCCULT BLOOD (FIT)#1 OF 1 POSITIVE HH NEG Vital Signs: All taken on the encounter date This section contains inpatient and outpatient Vital Signs collected on the date of the Encounter. Date/Time Temperature Pulse Blood Pressure Respiratory Rate SP02 Pain Height Weight Body Mass Index Source Aug 28, 2024 10:15 AM 98 61 100/64 18 96 0 186.3 31 [facility] Social History: Smoking Status (Most current) and Tobacco Use (All prior to encounter date) This section includes the most current, and the historical, smoking and tobacco- related health factors from the [place] facility where the Encounter took place. Current Smoking Status This section includes the most current smoking, or tobacco-related health factor, from the [place] facility where the Encounter took place. Date/Time Current Smoking Status Comment Facil ity May 25, 2024 09:30 AM MI-TOBACCO NEVER U SED CIGARETTES [facility] Tobacco Use History This section includes a history of the smoking, or tobacco-related health factors, that were collected on or before the date of the Encounter. The data comes from the [place] facility where the Encounter took place. Date/Time Smoking Status/Tobacco Use Comment F acility May 25, 2024 09:30 AM [facility]-TOBACCO NEVER U SED [facility] Jan 19, 2023 12:24 PM VA-TOBACCO NEVER USED [facility] [place] [facility] Jan 15, 2021 11:00 AM VA-TOBACCO NEVER USED [facility] [place] [facility] Advance Directives: All historical and [...] 2021 ADVANCE DIRECTIVE [facility] ARAUZ [facility] Encounter Notes: All associated encounter notes This section contains the clinical notes associated to the Encounter. Date/Time Encounter Note(s) Provider Source Aug 28, 2024 04:22 PM ADDENDUM: LOCAL TITLE: Addendum STANDARD TITLE: ADDENDUM DATE OF NOTE: AUG 28, 2024@16:22:38 ENTRY DATE: AUG 28, 2024@16:22:39 AUTHOR: JENNIFER SEGURA EXP COSIGNER: URGENCY: STATUS: COMPLETED Please renew if in agreement. Thank you! OUTPT HYDROXYZINE HCL 10MG TAB (Status = Active/Suspended) TAKE ONE TABLET BY MOUTH AT BEDTIME NEEDED FOR SLEEP Rx# [id number] Last Released: Qty/Days Supply: 90/90 Rx Expiration Date: 11/12/24 Refills Remainin Indication: INSOMNIA SPOUSE REQUESTING CHEWABLE MULTIVITAMINS. /sharron/ JENNIFER SEGURA RN BSN [facility]PC JOB FOREMAN Signed: 08/28/2024 16:24 Receipt Acknowledged By: 08/30/2024 15:21 /sharron/ CANDICE JASMINE [facility] NURSE PRACTITIONER for LUIS FERNANDO Chacko YOUNG --- Original Document --- 08/28/24 [facility] RN PROGRESS NOTE: Nursing Progress Note Active [...] A DAY 5) CATH,EXTERNAL EXTENDED WEAR SMALL H#0143 USE 1 CATHETER ACTIVE URETHRAL ONCE DAILY [...] DAY Indication: INCONTINENCE 16) INCONT [id number] USE 1 LINER ACTIVE TOPICALLY AT BEDTIME [...] ONCE ACTIVE (S) DAILY 27) UNDERPAD,BED ULTRASORB [id number] M#3136 USE 2 UNDERPADS ACTIVE TOPICALLY AT BEDTIME Indication: INCONTINENCE 28) URINARY DRAINAGE BAG BARD #[id number] USE 1 DRAINAGE BAG EVERY 7 ACTIVE DAYS Indication: MONTIEL MEDICATION REVIEW Medication review completed during home [...] Facial Recognition Length of visit in home: 35 minutes Problem addressed for this visit: PD, dysphagia, fall prevention Specimen(s) collected during this visit: None NURSING SUMMARY: RNCM made home visit for chronic disease management, c/v and c/p assessment, neuro assessment. Spouse greeted nurse at door. in the living room sitting in recliner. Well groomed. Dressed appropriately. poor eye contact. Relies on spouse to answer questions. Reports he is doing well, no complaints. No acute distress. Denies pain. Spouse using chair alarm. Denies any falls. Spouse reports body rash has not come back. Spouse believes it was the crystal light giving him the rash, since discontinued no rash. PD-Speech soft and monotone, able to understand. Muscle rigidity to upper and lower extremities. Sundowning that starts early evening. No hallucinations or behavior issues at this time. Blood pressure has been running on the lower side 100/64. Denies chest pain, palpations, dizziness. Abdomen soft non-tender, non-distended + bs x 4. Moving bowels every 2-3 days. Denies blood in stool. Spouse reports she went to the post office and mailed his occult fit test on 08/16. Requesting results. Reported lab has not run the test. Spouse adamant that she labeled the specimen correctly followed the instructions precisely. RNCM to check with lab. Dysphagia: Diet minced and moist diet with thin liquids. [place] eating 3 meals/day. Foods cut into very small pieces, or she purees. Drinking 48 oz of fluid daily. Denies any choking episodes. Appetite good. Reports weight up to 186.3lbs. manages and administers meds. Administering meds in pudding or applesauce. Reviewed medication regimen. Spouse administering meds as directed. Med list left in home. Not taking bisacodyl, will discontinue. Has plenty supply of chlorhexidine gluconate, hydrophilic cream in the home, no refill needed at this time. Memantine needs renewal, spouse calling neurologist office to have them fax [facility] script. RNCM will renew hydroxyzine. Spouse asking for chewable multivitamin. Reports switched to tablets like she requested but tablets are oval and hard to swallow. Spouse reports received weight for Michael lift but needs [facility] PT to make home visit to put it on and teach her how to use it. Blood Pressure: 100/64 (08/28/2024 10:15) Pulse: 61 (08/28/2024 10:15) Respiration: 18 (08/28/2024 10:15) Temperature: 98 F [36.7 C] (08/28/2024 10:15) Pain Score: 0 (08/28/2024 10:15) EXAMINATION: Lungs: Ls clear throughout. Resp [...] as possible with assist from his and [facility] Patient verbalizes understanding to above and will call with any concerns or changes in condition. For emergent care call 911. Plan for next visit: 09/24/24 for chronic disease management, c/v and c/p assessment, neuro assessment /sharron/ ZACHARIAH SWIFT HB JOB FOREMAN Signed: 08/28/2024 16:17 08/28/2024 ADDENDUM STATUS: COMPLETED RNCM reviewed [place] is due for Tdap and RSV vaccine. Spouse declined RSV vaccine, but agreed to Tdap. RNCM will administer tdap and draw lipids next home visit 09/24. /sharron/ ZACHARIAH SWIFT HB JOB FOREMAN Signed: 08/28/2024 16:30 JENNIFER SEGURA [place] [facility] Aug 28, 2024 03:52 PM [facility] NURSING NOTE: LOCAL TITLE: HB RN PROGRESS NOTE STANDARD TITLE: [facility] NURSING NOTE DATE OF NOTE: AUG 28, 2024@15:52 ENTRY DATE: AUG 28, 2024@15:52:46 AUTHOR: JENNIFER SEGURA EXP COSIGNER: URGENCY: STATUS: [...] A DAY 5) CATH,EXTERNAL EXTENDED WEAR SMALL H#2919 USE 1 CATHETER ACTIVE URETHRAL ONCE DAILY [...] Indication: INCONTINENCE 16) INCONT LINER,MENS X-HVY SURECARE #52687M USE 1 LINER ACTIVE TOPICALLY AT BEDTIME [...] ONCE ACTIVE (S) DAILY 27) UNDERPAD,BED ULTRASORB [id number] M#3136 USE 2 UNDERPADS ACTIVE TOPICALLY AT BEDTIME Indication: INCONTINENCE 28) URINARY DRAINAGE BAG BARD #[id number] USE 1 DRAINAGE BAG EVERY 7 ACTIVE DAYS Indication: MONTIEL MEDICATION REVIEW Medication review completed during home [...] in patient's home at time of visit. [place] identified by: Full Name, Facial Recognition Length of visit in home: 35 minutes Problem addressed for this visit: PD, dysphagia, fall prevention Specimen(s) collected during this visit: None NURSING SUMMARY: RNCM made home visit for chronic disease management, c/v and c/p assessment, neuro assessment. Spouse greeted nurse at door. [place] in the living room sitting in recliner. Well groomed. Dressed appropriately. poor eye contact. Relies on spouse to answer questions. Reports he is doing well, no complaints. No acute distress. Denies pain. Spouse using chair alarm. Denies any falls. Spouse reports body rash has not come back. Spouse believes it was the crystal light giving him the rash, since discontinued no rash. PD-Speech soft and monotone, able to understand. Muscle rigidity to upper and lower extremities. Sundowning that starts early evening. No hallucinations or behavior issues at this time. Blood pressure has been running on the lower side 100/64. Denies chest pain, palpations, dizziness. Abdomen soft non-tender, non-distended + bs x 4. Moving bowels every 2-3 days. Denies blood in stool. Spouse reports she went to the post office and mailed his occult fit test on 08/16. Requesting results. Reported lab has not run the test. Spouse adamant that she labeled the specimen correctly followed the instructions precisely. RNCM to check with lab. Dysphagia: Diet minced and moist diet with thin liquids. eating 3 meals/day. Foods cut into very small pieces, or she purees. Drinking 48 oz of fluid daily. Denies any choking episodes. Appetite good. Reports weight up to 186.3lbs. manages and administers meds. Administering meds in pudding or applesauce. Reviewed medication regimen. Spouse administering meds as directed. Med list left in home. Not taking bisacodyl, will discontinue. Has plenty supply of chlorhexidine gluconate, hydrophilic cream in the home, no refill needed at this time. Memantine needs renewal, spouse calling neurologist office to have them fax [facility] script. RNCM will renew hydroxyzine. Spouse asking for chewable multivitamin. Reports switched to tablets like she requested but tablets are oval and hard to swallow. Spouse reports received weight for Michael lift but needs [facility] PT to make home visit to put it on and teach her how to use it. Blood Pressure: 100/64 (08/28/2024 10:15) Pulse: 61 (08/28/2024 10:15) Respiration: 18 (08/28/2024 10:15) Temperature: 98 F [36.7 C] (08/28/2024 10:15) Pain Score: 0 (08/28/2024 10:15) EXAMINATION: Lungs: Ls clear throughout. Resp [...] as possible with assist from his and [facility] Patient verbalizes understanding to above and will call with any concerns or changes in condition. For emergent care call 911. Plan for next visit: 09/24/24 for chronic disease management, c/v and c/p assessment, neuro assessment /ZACHARIAH Rodriguez JOB FOREMAN Signed: 08/28/2024 16:17 08/28/2024 ADDENDUM STATUS: COMPLETED Please renew if in agreement. Thank you! OUTPT HYDROXYZINE HCL 10MG TAB (Status = Active/Suspended) TAKE ONE TABLET BY MOUTH AT BEDTIME NEEDED FOR SLEEP Rx# [id number] Last Released: Qty/Days Supply: Rx Expiration Date: 11/12/24 Refills Remainin Indication: INSOMNIA SPOUSE REQUESTING CHEWABLE MULTIVITAMINS. /ZACHARIAH Rodriguez JOB FOREMAN Signed: 08/28/2024 16:24 Receipt Acknowledged By: * AWAITING SIGNATURE * LUIS FERNANDO FONTANEZ 08/28/2024 ADDENDUM STATUS: COMPLETED RNCM reviewed [place] is due for Tdap and RSV vaccine. Spouse declined RSV vaccine, but agreed to Tdap. RNCM will administer tdap and draw lipids next home visit 09/24. /ZACHARIAH Rodriguez JOB FOREMAN Signed: 08/28/2024 16:30 [facility]ENNIFER SEGURA [place] [facility]
--- OUTSIDE RECORDS SUMMARY | 2024-10-29 13:40 | XMS_ITS | Encounter Summary ---
Author Name [facility] [place] Organization [place] Address [address] [place] [id number] Care Team Providers Care Deputy Administrator Name Role Phone LUIS FERNANDO FONTANEZ Primary Care Provider Unavailabl e MARIKA SLAUGHTEROTHEA Unavailable Unavailable CHAPUT, AMANDO Unavailable Unavailable RAIVETricia, RAMIN Unavailable Unavailable SUNIL, KALYAN Unavailable Unavailable [...] PART A Jun 20, 2014 PART A [id number] EAMON OLIVIA ERT PATIENT MEDICARE (WNR) MEDICARE (M) PART B Jun 20, 2014 PART B [id number] EAMON OLIVIA ERT PATIENT MEDICARE (WNR) MEDICARE (M) PART A Jun 20, 2014 PART A [id number] EAMON OLIVIA ERT PATIENT MEDICARE (WNR) MEDICARE (M) PART B Jun 20, 2014 PART B [id number] EAMON OLIVIA ERT PATIENT OPTUM RX PRESCRIPT ION RX Jun 20, 2023 THPRX [id number] EAMON OLIVIA ERT PATIENT OPTUM RX PRESCRIPT ION RX Jun 20, 2022 THPRX [id number] [phone] DAVON OLIVIA JR PATIENT OPTUM RX PRESCRIPT ION RX Jun 20, 2022 THPRX [id number] [phone] OL[address] E[address] [facility] T[facility] Jun 20, 2017 [id number] EAMON OLIVIA ERT PATIENT [facility] TON PEÑA E Jun 20, 2017 [id number] DAVON OLIVIA JR PATIENT [facility] PE[facility] E Jun 20, 2017 [id number] [phone] DAV[facility]IVIA [facility] Jun 20, 2017 [facility] [id number] EAMON OLIVIA ERT [facility] Jun 20, 2023 [id number] [phone] EAMON OLIVIA PATIENT Selected Encounter This section includes the information on record at [place] for the Encounter. Date/Time Encounter Type Encounter Description Reason Provider Source November 10, 2023 12:59 AM Outpatient Encounter CARDIOLOGY ICD-10-CM I48.91 Unspecified atrial fibrillation SERENA LORENZO [facility] Encounter Template Text not used by [place] Assessments - Encounter Diagnoses This section includes the primary and secondary diagnoses documented for the Encounter. Date/Time Primary/Secondary Diagnosis Diagnosis Name Provider Source November 10, 2023 01:10 AM PRIMARY Unspecified atrial fibrillation SERENA LORENZO [facility] Plan of Treatment: Future Appointments [...] - MEDICINE [facility] Jan 04, 2024 01:00 PM AMBULATORY - NONE [facility] Feb 02, 2024 03:00 PM AMBULATORY - REHAB MEDICIN E [facility] Feb 14, 2024 12:30 PM AMBULATORY - REHAB MEDICIN E [facility] Mar 15, 2024 10:00 AM AMBULATORY - REHAB MEDICIN E [facility] Mar 22, 2024 08:00 AM AMBULATORY - MEDICINE [facility] Mar 22, 2024 01:00 PM AMBULATORY - NONE [facility] Mar 27, 2024 02:30 PM AMBULATORY - MEDICINE [facility] Mar 29, 2024 11:00 AM AMBULATORY - REHAB MEDICIN E [facility] Apr 12, 2024 11:00 AM AMBULATORY - REHAB MEDICIN E [facility] Apr 26, 2024 09:00 AM AMBULATORY - MEDICINE [facility] Apr 26, 2024 11:00 AM AMBULATORY - REHAB MEDICIN E [facility] Advance Directives: All historical and current [...] ADVANCE DIRECTIVE BENTON ARAUZ [facility] Encounter Notes: All associated encounter notes [...] Cardiology Attending Signed: 11/10/2023 01:10 DOUGLAS LORENZO [facility]
--- OUTSIDE RECORDS SUMMARY | 2024-10-29 13:40 | XMS_ITS | Encounter Summary ---
Author Name [facility] Organization [facility] Address [address] [place] [address] Care Team Providers Care Educational Psychologist Name Role Phone HUSEYIN LUIS FERNANDO Primary Care Provider Unavailabl e MIRANDA NEWMAN MEGAN Unavailable Unavailable CHAPUT, AMANDO Unavailable Unavailable RAIVETricia, RAMIN Unavailable Unavailable FEISHILA, KALYAN Unavailable Unavailable KAMILAH MALCOLM Unavailable Unavailable RIGO FENTON Unavailable Unavailable RISING, JENNIFER Unavailable Unavailable AMARIS BAKER Unavailable Unavailable CANDICE JASMINE Unavailable Unavailable Insurance [...] PART B Jun 20, 2014 PART B [id number] EAMON OLIVIA ERT PATIENT MEDICARE (WNR) MEDICARE (M) PART A Jun 20, 2014 PART A [id number] [phone] EAMON OLIVIA ERT PATIENT MEDICARE (WNR) MEDICARE (M) PART A Jun 20, 2014 PART A [id number] EAMON OLIVIA ERT PATIENT MEDICARE (WNR) MEDICARE (M) PART B Jun 20, 2014 PART B [id number] EAMON OLIVIA ERT PATIENT OPTUM RX PRESCRIPT ION RX Jun 20, 2023 THPRX [id number] EAMON OLIVIA ERT PATIENT OPTUM RX PRESCRIPT ION RX Jun 20, 2022 THPRX [id number] [phone] DAVON OLIVIA JR PATIENT OPTUM RX PRESCRIPT ION RX Jun 20, 2022 THPRX [id number] EAMON OLIVIA ERT PATIENT [facility] Jun 20, 2017 [id number] EAMON OLIVIA ERT PATIENT [facility] PLAN [facility] TON PEÑA E Jun 20, 2017 [id number] [phone] DAVON OLIVIA JR PATIENT [facility] PLAN [facility] TON PE[facility] E Jun 20, 2017 [id number] [phone] DAVON OLIVIA JR PATIENT [facility] PLAN USP Jun 20, 2017 USP [id number] EAMON OLIVIA ERT PATIENT [facility] [place] Jun 20, 2023 [id number] EAMON OLIVIA ERT PATIENT Selected Encounter [...] 2021 ADVANCE DIRECTIVE [facility]
--- OUTSIDE RECORDS SUMMARY | 2024-10-29 13:41 | XMS_ITS | Encounter Summary ---
Author Organization [facility], Address [address] [place] [address] Phone Care Team Providers Care Toll Repairer Central Office Name Role Phone Shirin Mcwilliams MD Primary Care Prov ider Encounter Details Date Type Department Care Team (Late st Contact Info) Description 09/03/2022 Documentation Only [facility] Mikael ACOSTA [address] [place] [address] Shirin Mcwilliams MD [address] [place] [phone] Social History Tobacco Use Types Packs/Day Years [...] [facility] [place] [address] Emil Davis MD [address] [place] [address] [place] [phone] documented as of this encounter Visit Diagnoses Not on filedocumented in this encounter Care Teams Toll Repairer Central Office Relationship Specialty Start Date End Date Shirin Mcwilliams MD [address] [place] [phone] PCP - General 06/30/20 documented as of this encounter
--- OUTSIDE RECORDS SUMMARY | 2024-10-29 13:41 | XMS_ITS | Encounter Summary ---
Author Organization [facility], Address [address] [place] [address] Phone Care Team Providers Care Manager Brand Name Role Phone Shirin Mcwilliams MD Primary Care Prov ider Encounter Details Date Type Department Care Team (Late st Contact Info) Description 02/23/2023 Documentation Only [facility] [place] [address] [place] [address] [place] [phone] Social History Tobacco Use Types Packs/Day Years [...] [facility] [place] [address] Emil Davis MD [address] [facility] [place] [phone] documented as of this encounter Visit Diagnoses Not on filedocumented in this encounter Care Teams Manager Brand Relationship Specialty Start Date End Date Shirin Mcwilliams MD [address] [place] [address] PCP - General 06/30/20 documented as of this encounter
--- OUTSIDE RECORDS SUMMARY | 2024-10-29 13:41 | XMS_ITS | Encounter Summary ---
Author Organization [facility], Address [address] [place] [address] Phone Care Team Providers Care Boxing And Pressing Supervisor Name Role Phone Shirin Mcwilliams MD Primary Care Prov ider Encounter Details Date Type Department Care Team (Late st Contact Info) Description 03/01/2023 Documentation Only [facility] [place] [address] Emil Davis MD [address] [place] [address] [place] [address] Social History Tobacco Use Types Packs/Day Years [...] [facility] [place] [address] Emil Davis MD [address] [place] [address] [place] [address] documented as of this encounter Visit Diagnoses Not on filedocumented in this encounter Care Teams Boxing And Pressing Supervisor Relationship Specialty Start Date End Date Shirin Mcwilliams MD [address] [place] [address] PCP - General 06/30/20 documented as of this encounter
--- OUTSIDE RECORDS SUMMARY | 2024-10-29 13:41 | XMS_ITS | Clinical Summary ---
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 Name Role Phone Geri Samson MD Primary Care Provider [phone] Social History Tobacco Use Types Packs/Day Years Used Date Smoking Tobacco: Never Assessed Sex and Gender Information Value Date Recorded Sex Assigned at Not on file Legal Sex Male 3:04 AM EST Gender Identity Not on file Sexual Orientation Not on file Plan of Treatment Health Maintenance Due Date Last Done Comments Zoster Vaccines (1 of 2) 04/15/2016 02/19/2016 Cholesterol Screening (Lipid Panel) 05/23/2022 Falls Risk Assessment 05/23/2022 Hepatitis C Screening 05/23/2022 Medicare Annual Wellness Visit 05/23/2022 Social Influencers of Health Screening 05/23/2022 RSV Immunization Adult Patients (1 - 1-dose 75+ series) 2024 COVID-19 Vaccine ( season) 2024 03/28/2024, 08/31/2023, 04/03/2023, Additional history exists Colorectal Cancer Screening: Stool Based Tests (FOBT/FIT) 04/21/2025 04/21/2024 Hypertension/CHF/CAD Annual BMP Blood Test 05/09/2025 05/09/2024, 05/02/2024, 04/24/2024, Additional history exists Depression Screening 06/04/2025 06/04/2024 DTaP,Tdap,and Td Vaccines (6 - Td or Tdap) 09/14/2033 09/15/2023, 04/11/2021, 04/06/2015, Additional history exists Pneumococcal Vaccine: 50+ Years Completed 05/09/2018, 02/24/2017, 08/18/2016, Additional history exists Influenza Vaccine Completed 03/28/2024, , 02/26/2022, Additional history exists HIB Vaccines Aged Out No longer eligi ble based on patient's age to complete this topic HPV Vaccines Aged Out No longer eligi ble based on patient's age to complete this topic Hepatitis A Vaccines Aged Out No long er eligible based on patient's age to complete this topic Hepatitis B Vaccines Aged Out No long er eligible based on patient's age to complete this topic IPV Vaccines Aged Out No longer eligi ble based on patient's age to complete this topic MMR Vaccines Aged Out No longer eligi ble based on patient's age to complete this topic Meningococcal ACWY Vaccine Aged Out N o longer eligible based on patient's age to complete this topic Meningococcal B Vaccine Aged Out No l onger eligible based on patient's age to complete this topic RSV Immunization Patients Under 20 months Aged Out No longer eligible based on patient's age to complete this topic Varicella Vaccines Aged Out No longer eligible based on patient's age to complete this topic Procedures Procedure Name Priority Date/Time Associated Diagnosis Comments COMPREHENSIVE METABOLIC PANEL Routine 05/09/2024 7:52 AM EST Hypothyroidism, unspecified Pneumonia, unspecified organism Vitamin B12 deficiency anemia, unspecified from Last 3 Months or Most Recently Relevant to Health Maintenance Results * (ABNORMAL) Comprehensive metabolic panel (05/09/2024 7:52 AM EST) Sodium 137 133 - 145 mmol/L LAB CHEMISTRY METHOD 05/09/2024 10:52 AM EST [facility] Potassium 4.3 3.5 - 5.5 mmol/L LAB CHEMISTRY METHOD 05/09/2024 10:52 AM EST [facility] Chloride 100 96 - 110 mmol/L LAB CHEMISTRY METHOD 05/09/2024 10:52 AM EST [facility] CO2 30 21 - 32 mmol/L LAB CHEMISTRY METHOD 05/09/2024 10:52 AM EST [facility] Anion Gap 7 3 - 11 LAB CHEMISTRY METHOD 05/09/2024 10:52 AM EST [facility] Glucose 101(H) 70 - 100 mg/dL LAB CHEMISTRY METHOD 05/09/2024 10:52 AM [facility] BUN 23 5 - 25 mg/dL LAB CHEMISTRY METHOD 05/09/2024 10:52 AM [facility] Creatinine 0.82 0.70 - 1.30 mg/dL LAB CHEMISTRY METHOD 05/09/2024 10:52 AM [facility] eGFR 92 >=60 mL/min/1. 73m2 LAB CHEMISTRY METHOD 05/09/2024 10:52 AM [facility] Comment:Calculation based on the??Chronic Kidney Disease Epidemiology Collaboration (CKD-EPI) equation refit??without adjustment for race. BUN/Creatinine Ratio 28.0 LAB CHEMISTRY METHOD 05/09/2024 10:52 AM [facility] Calcium 9.9 8.5 - 10.5 mg/dL LAB CHEMISTRY METHOD 05/09/2024 10:52 AM [facility] AST (SGOT) 38 10 - 42 unit/L LAB CHEMISTRY METHOD 05/09/2024 10:52 AM [facility] ALT (SGPT) 20 10 - 60 unit/L LAB CHEMISTRY METHOD 05/09/2024 10:52 AM [facility] Alkaline Phosphatase 131(H) 42 - 121 unit/L LAB CHEMISTRY METHOD 05/09/2024 10:52 AM [facility] Total Protein 6.6 6.0 - 8.0 g/dL LAB CHEMISTRY METHOD 05/09/2024 10:52 AM [facility] Albumin 3.0(L) 3.2 - 5.0 g/dL LAB CHEMISTRY METHOD 05/09/2024 10:52 AM [facility] Total Bilirubin 0.2 0.0 - 1.4 mg/dL LAB CHEMISTRY METHOD 05/09/2024 10:52 AM [facility] Blood Venous blood specimen / Unknown Venipuncture / Unknown 05/09/2024 7:52 AM EST 05/09/2024 9:16 AM EST Geri Samson MD LAB BLOOD ORDERABLES Final Resul t [facility] ([facility]) [facility] [address] [place] [address], from Last 3 Months or Most Recently Relevant to Health Maintenance Insurance [facility] [email or web address] PLANS MEDICARE Advance Directives Documents on File Type Date Recorded Patient Tool Filer Hand Expl anation Health Care Decision (hx) 03/30/2024 AD MALLORY DIRECTIVE Health Care Decision (hx) 03/26/2024 HE ALTH CARE PROXY Care Teams Dry Roaster Relationship Specialty Start Date End Date Geri Samson MD [address] [place] [address] [address] [place] [address] PCP - General Geriatric Medicine 05/10/24
--- OUTSIDE RECORDS SUMMARY | 2024-10-29 13:41 | XMS_ITS | Encounter Summary ---
Author Name [facility] Organization [facility] [place] Address [address] [place] [address] Care Team Providers Care Physical Therapy Aides Teacher Name Role Phone HUSEYIN LUIS FERNANDO Primary Care Provider Unavailabl e MEGAN SLAUGHTER Unavailable Unavailable CHAPALEXY AMANDO Unavailable Unavailable RAWALI RAMIN Unavailable Unavailable FEISHILA, KALYAN Unavailable Unavailable [...] PART B Jun 20, 2014 PART B [id number] EAMON OLIVIA ERT PATIENT MEDICARE (WNR) MEDICARE (M) PART A Jun 20, 2014 PART A [id number] EAMON OLIVIA ERT PATIENT MEDICARE (WNR) MEDICARE (M) PART A Jun 20, 2014 PART A [id number] [phone] EAMON OLIVIA ERT PATIENT MEDICARE (WNR) MEDICARE (M) PART B Jun 20, 2014 PART B [id number] EAMON OLIVIA ERT PATIENT [facility] RX PRESCRIPT ION RX Jun 20, 2023 [facility] [id number] [phone] EAMON OLIVIA ERT PATIENT [facility] RX PRESCRIPT ION RX Jun 20, 2022 [facility] [id number] DAVON OLIVIA JR PATIENT [facility] RX PRESCRIPT ION RX Jun 20, 2022 [facility] [id number] [phone] [address] E[address] [facility] Jun 20, 2017 [id number] [phone] EAMON OLIVIA ERT PATIENT [facility] TON PEÑA E Jun 20, 2017 [id number] DAVON OLIVIA JR PATIENT [facility] TON PEÑA E Jun 20, 2017 [id number] DAVON OLIVIA JR PATIENT [facility] USP Jun 20, 2017 [facility] [id number] EAMON OLIVIA ERT PATIENT [facility] Jun 20, 2023 [id number] EAMON OLIVIA ERT PATIENT Selected Encounter This section includes the information on record at [place] for the Encounter. Date/Time Encounter Type Encounter Description Reason Provider Source Jul 17, 2024 02:00 PM [place] SP LANG VOICE COMM INDIV SPEECH-LANGUAGE PATHOLOGY ICD-10-CM R13.10 Dysphagia, unspecified AMARIS WESTFALL [place] Encounter Template Text not used by [place] Assessments - Encounter Diagnoses This section includes the primary and secondary diagnoses documented for the Encounter. Date/Time Primary/Secondary Diagnosis Diagnosis Name Provider Source Jul 19, 2024 07:49 AM PRIMARY Dysphagia, unspecified AMARIS WESTFALL [facility] Jul 19, 2024 07:49 AM SECONDARY Dysphonia [facility] Lab Results: +/- 30 days of the [...] Type Comment Jul 03, 2024 01:30 PM [facility] FOLATE (WROX) SERUM Specimen Type: SERUM No comment entered. Ordering Provider: LUIS FERNANDO FONTANEZ Report Released Date/Time: May 25, 2024 08:50 AM Reporting Lab: [place] [facility] [place] [facility] [address] [facility] [address] Performing Lab: [place] [facility] [place] [facility] [address] [facility] [address] FOLATE (WROX) 8.8 ng/mL >5.2 Jul 03, 2024 01:30 PM [facility] TRN [facility] PTH INTACT SERUM Specimen Type: SERUM No comment entered. Ordering Provider: LUIS FERNANDO FONTANEZ Report Released Date/Time: Jun 18, 2024 08:46 AM Reporting Lab: [facility] [place] [address] [address] Performing Lab: [facility] [place] [facility] [address] [facility] [address] PTH INTACT 34.0 pg/mL 8.7-77.1 Jul 03, 2024 01:30 PM [facility]TRN [facility] MAGNESIUM SERUM Specimen Type: SERUM No comment entered. Ordering Provider: LUIS FERNANDO FONTANEZ Report Released Date/Time: May 25, 2024 08:50 AM Reporting Lab: [facility] [place] [address] [address] Performing Lab: [place] [facility] [place] [address] [address] MAGNESIUM 1.9 mg/dL 1.6-2.6 Jul 03, 2024 01:30 PM [facility] LIVER FUNCTION SERUM Specimen Type: SERUM No comment entered. Ordering Provider: LUIS FERNANDO FONTANEZ Report Released Date/Time: May 25, 2024 08:50 AM Reporting Lab: [facility] [place] [address] [address] Performing Lab: [place] [facility] [place] [address] [address] PROTEIN,TOTAL 7.0 g/dL 6.0-8.3 ALBUMIN 3.5 g/dL 3.5-5.0 ALKALINE PHOSPHATASE 93 U/L 40-150 AST 19 U/L 5-34 ALT 7 U/L BILIRUBIN, TOTAL 0.3 mg/dL 0.2-1.2 Jul 03, 2024 01:30 PM [facility] BASIC METABOLIC PANEL (non-fasting) SERUM Spe cimen Type: SERUM No comment entered. Ordering Provider: LUIS FERNANDO FONTANEZ Report Released Date/Time: May 25, 2024 08:50 AM Reporting Lab: [address] [address] Performing Lab: [address] [address] UREA NITROGEN 15 mg/dL 7-25 GLUCOSE 80 mg/dL 65-100 SODIUM 138 mmol/L 135-145 POTASSIUM 3.5 mmol/L 3.5-5.0 CHLORIDE 101 mmol/L 100-110 CO2 28 meq/L 20-30 CREATININE, Serum 0.88 mg/dL 0.50-1.40 eGFR(CKD-EPI 2020) 90 mL/min >60 Jul 03, 2024 01:30 PM [facility] VITAMIN B12 SERUM Specimen Type: SERUM No comment entered. Ordering Provider: LUIS FERNANDO FONTANEZ Report Released Date/Time: May 25, 2024 08:50 AM Reporting Lab: [address] [address] Performing Lab: [address] [address] VITAMIN B12 435 pg/mL 200-900 Jul 03, 2024 01:30 PM [facility] VITAMIN D (25-OH) SERUM Specimen Type: SERUM No comment entered. Ordering Provider: LUIS FERNANDO FONTANEZ Report Released Date/Time: May 25, 2024 08:50 AM Reporting Lab: [address] [address] Performing Lab: [address] [place] [address] VITAMIN D (25-OH) 37 ng/mL 20-50 Jul 03, 2024 01:30 PM [facility] FERRITIN SERUM Specimen Type: SERUM No comment entered. Ordering Provider: LUIS FERNANDO FONTANEZ Report Released Date/Time: May 25, 2024 08:50 AM Reporting Lab: [facility] [address] [address] Performing Lab: [facility]ITALRBRY[facility] [place] [address] [address] FERRITIN 28 ng/mL 20-300 Jul 03, 2024 01:30 PM [facility] IRON & TIBC PANEL SERUM Specimen Type: SERUM No comment entered. Ordering Provider: LUIS FERNANDO FONTANEZ Report Released Date/Time: May 25, 2024 08:50 AM Reporting Lab: [facility] [address] [address] Performing Lab: [facility]ITALR[facility] [place] [address] [address] TIBC 351 ug/dL 204-475 IRON 111 ug/dL 40-160 Transferrin Saturation 31.6 20.0-50.0 Transferrin (TRF) 266 mg/dL 200-360 Jul 03, 2024 01:30 PM [facility]ITAL[facility] RETICULOCYTES BLOOD Specimen Type: BLOOD No comment entered. Ordering Provider: LUIS FERNANDO FONTANEZ Report Released Date/Time: May 25, 2024 08:50 AM Reporting Lab: [facility]ITALR[facility] [place] [address] [address] Performing Lab: [facility] [place] [address] [address] RETIC % 0.9 0.6-2.0 RETIC, ABS 44.5 10*3/uL 30.0-90.0 RET-HE 31.3 pg 27.9-42.0 Jul 03, 2024 01:30 PM [facility]N [facility]USE[facility] TSH SERUM Specimen Type: SERUM No comment entered. Ordering Provider: LUIS FERNANDO FONTANEZ Report Released Date/Time: May 25, 2024 08:50 AM Reporting Lab: [facility] [place] [facility] [address] [facility] [address] Performing Lab: [facility] [place] [facility] [address] [facility] [address] TSH 2.21 u[IU]/mL 0.35-5.00 Jul 03, 2024 01:30 PM [facility] [place] [facility] PO4 SERUM Specimen Type: SERUM No comment entered. Ordering Provider: LUIS FERNANDO FONTANEZ Report Released Date/Time: May 25, 2024 10:21 AM Reporting Lab: [facility] [place] [facility] [address] [facility] [address] Performing Lab: [place] [facility] [place] [facility] [address] [facility] [address] PO4 2.8 mg/dL 2.5-5.0 Jul 03, 2024 01:30 PM [place] [facility] URIC ACID SERUM Specimen Type: SERUM No comment entered. Ordering Provider: LUIS FERNANDO FONTANEZ Report Released Date/Time: Jun 18, 2024 08:46 AM Reporting Lab: [facility] [place] [facility] [address] [facility] [address] Performing Lab: [facility] [place] [facility] [address] [facility] [address] URIC ACID 5.8 mg/dL 3.5-7.2 Jul 03, 2024 01:30 PM [facility]RL W[facility]N [facility] MAGNESIUM SERUM Specimen Type: SERUM No comment entered. Ordering Provider: LUIS FERNANDO FONTANEZ Report Released Date/Time: Jun 18, 2024 08:46 AM Reporting Lab: [facility] [place] [facility] [address] [facility] [address] Performing Lab: [facility] [place] [facility] [address] [facility] [address] [address] MAGNESIUM 1.8 mg/dL 1.6-2.6 Jul 03, 2024 01:30 PM [place] [facility] [place] [facility] CBC AND DIFF (AUTO) BLOOD Specimen Type: BLOO D No comment entered. Ordering Provider: LUIS FERNANDO FONTANEZ Report Released Date/Time: May 25, 2024 08:50 AM Reporting Lab: [facility] [address] [facility] [address] Performing Lab: [facility] [address] [facility] [address] [address] WBC 8.62 10*3/uL 4.50-11.00 RBC 4.84 10*6/uL [...] Jan 20, 2021 ADVANCE DIRECTIVE [facility] Encounter Notes: All associated encounter notes This section contains the clinical notes associated to the Encounter. Date/Time Encounter Note(s) Provider Source Jul 17, 2024 02:13 PM TELEHEALTH NOTE: LOCAL TITLE: [employer] VIDEO CONNECT SPEECH STANDARD TITLE: TELEHEALTH NOTE DATE OF NOTE: JUL 17, 2024@14:13 ENTRY DATE: JUL 17, 2024@14:13:19 AUTHOR: AMARIS WESTFALL EXP COSIGNER: URGENCY: STATUS: COMPLETED [facility] Video Connect (VVC) Standard Documentation VVC Clinician Resources Only: E911 (Emergency Call Relay Center): [phone] [employer] Crisis Line - 988 then press #1. [facility] Suicide Coordinator [phone], Ext. [phone]; Back-up Ext. [phone] [place] Police, [place] [phone] Introduction: Visit is being conducted by [employer]. [place] identified with 2 identifiers: [X] Full Name [X] Date of [ ] [facility] ID Card Emergency Plan: confirmed and/or provided the following information in case of emergency or technology failure. PATIENT PHONE - PHONE NUMBER [CELLULAR] - Is patient phone number correct, if not, enter below: [place]'s phone number: DAVON OLIVIA JR [address], [place], [address] 's present location and address for appointment: as listed [place]'s emergency contact name and phone number: as listed reported that location is private and safe: Yes Informed Consent: [place] informed of the risks and benefits of Telehealth video care. has the right to refuse video services. If refuses video visit, a [id number] visit will be scheduled. [place] verbalized consent for this video visit: Yes [place] provided consent for any other persons present for visit: Yes If yes, who and relationship to patient: spouse Secure visit: Visit was locked for security and privacy: Yes S: is seen today for a treatment of dysphagia and dysphonia via VVC. Active problems - Computerized Problem List is the source for the followin. Obstructive sleep apnea 2. Nephrolithiasis 3. Excessive salivation 4. HTN - Hypertension ([facility] [id number]) 5. Constipation 6. Under care of multiple [...] Gastroesophageal reflux disease 31. AF- Atrial Fibrillation ([facility] [id number]) 32. Parkinson's disease 33. Kidney Stone ([facility] [id number]) Progress notes reviewed. Encounter time - 60 minutes O:The following was addressed during this encounter: completed exercises using EMST75 Lite set at lowest setting. In addition, he completed exercises to improve vocal loudness and clarity of speech. He responds well to cues for loud voice. Spouse reported that has been having grilled ham and cheese sandwich in the evening, lasagna, and today for lunch he had stuffed peppers and ground beef, as well as scrambled eggs for breakfast. She reports no difficulty with swallowing those items; however, she reported that she gave him a peppermint gabriella yesterday and he had a prolonged coughing episode. //EDUCATION - 1. [place]'s caregiver was educated on the importance safe swallow strategies, diet recommendations, and encouraged to continue to provide pills in puree. A: [place] with Parkinson's Disease with recent concerns re: swallowing and dysphonia. Dysphagia and dysphonia are common symptoms of PD and will benefit from dysphagia and voice tx. 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 He will benefit from instruction in compensatory strategies to improve communication abilities. P: DEMI 07/24/24 @ 1030 via [facility] /sharron/ AMARIS WESTFALL M.S.,CCC-SENIOR STAFF ACCOUNTANT SPEECH-LANGUAGE PATHOLOGIST Signed: 07/19/2024 07:50 Receipt Acknowledged By: 07/19/2024 09:44 /sharron/ EBONY ZIMMERMAN ADVANCED SURVEILLANCE AGENT [place],[facility]
--- OUTSIDE RECORDS SUMMARY | 2024-10-29 13:41 | XMS_ITS ---
Author Name [facility] [place] [facility] Address [address] [place] [id number] Care Team Providers Care Mill Representative Name Role Phone HUSEYIN LUIS FERNANDO Primary [...] PART B Jun 20, 2014 PART B [id number] EAMON OLIVIA ERT PATIENT MEDICARE (WNR) MEDICARE (M) PART A Jun 20, 2014 PART A [id number] EMAON OLIVIA ERT PATIENT MEDICARE (WNR) MEDICARE (M) PART A Jun 20, 2014 PART A [id number] [phone] EAMON OLIVIA ERT PATIENT MEDICARE (WNR) MEDICARE (M) PART B Jun 20, 2014 PART B [id number] [phone] EAMON OLIVIA ERT PATIENT [facility] RX PRESCRIPT ION RX Jun 20, 2023 THPRX [id number] EAMON OLIVIA ERT PATIENT [facility] RX PRESCRIPT ION RX Jun 20, 2022 THPRX [id number] DAVON OLIVIA JR PATIENT [facility] RX PRESCRIPT ION RX Jun 20, 2022 THPRX [id number] [phone]AM[address] [facility] [place] [place] Jun 20, 2017 [id number] [phone] EAMON OLIVIA ERT PATIENT [facility] PLAN [facility] E Jun 20, 2017 [id number] [phone] DAVON OLIVIA JR PATIENT [facility] PLAN [facility] E Jun 20, 2017 [id number] DAVON OLIVIA JR PATIENT [facility] PLAN [facility] Jun 20, 2017 USP [id number] [phone] EAMON OLIVIA ERT PATIENT [facility] [place] [place] Jun 20, 2023 [id number] EAMON OLIVIA ERT PATIENT Selected Encounter This section includes the information on record at [place] for the Encounter. Date/Time Encounter Type Encounter Description Reason Provider Source Oct 16, 2024 10:45 AM SELF CARE MNGMENT TRAINING [facility] Nursing (RN / LP) ICD-10-CM I95.9 Hypotension, unspecified RISING,JENNIFER L IHE Encounter Template Text not used by [place] Assessments - Encounter Diagnoses This section includes the primary and secondary diagnoses documented for the Encounter. Date/Time Primary/Secondary Diagnosis Diagnosis Name Provider Source Oct 16, 2024 06:50 PM PRIMARY Hypotension, unspecified RISING,HEATHE R L [place] [facility] [place] [facility] Oct 16, 2024 06:50 PM SECONDARY Hematuria, unspecified RISING,HEATHE R L [place] [facility] [place] [facility] Oct 16, 2024 06:50 PM SECONDARY Parkinson's dis w/o dyskinesia, w/o mention of fluctuations RISING,HEATHE R L [facility] [place] [facility] Plan of Treatment: [...] of theEncounter. The data comes from all [place] treatment facilities. Test Date/Time Test Type Test Details Facility Name Sep 11, 2024 12:00 AM Laboratory - Chemi stry Order OCCULT BLOOD FIT X1 SCREEN(IN-HOUSE) STOOL FECES SP [facility] Lab Results: +/- 30 days [...] Type Comment Sep 24, 2024 11:00 AM [facility] HEMOGLOBIN A1C PANEL BLOOD Specimen Type: BLOOD [...] Sep 24, 2024 02:09 PM Reporting Lab: [address] [address] Performing Lab: [address] [address] HEMOGLOBIN A1C 5.2 4.0-5.6 Sep 24, 2024 11:00 AM [facility] LIPID PANEL, NON FASTING SERUM Specimen Type: SERUM No comment entered. Ordering Provider: LUIS FERNANDO FONTANEZ Report Released Date/Time: Sep 24, 2024 11:37 AM Reporting Lab: [facility] [address] [facility] [address] Performing Lab: [address] [address] CHOLESTEROL 183 mg/dL TRIGLYCERIDE 59 mg/dL 0-150 LDL calculated 123 mg/dL 0-129 CHOL/HDL 3.8 HDL CHOLESTEROL 48 mg/dL 40-60 Sep 24, 2024 11:00 AM [facility] CBC AND DIFF (AUTO) BLOOD Specimen Type: BLOO D No comment entered. Ordering Provider: LUIS FERNANDO FONTANEZ Report Released Date/Time: Sep 12, 2024 12:12 PM Reporting Lab: [address] [address] Performing Lab: [address] [address] WBC 6.46 10*3/uL 4.50-11.00 RBC 4.67 10*6/uL [...] Pain Height Weight Body Mass Index Source Oct 16, 2024 10:45 AM 98.3 59 95/62 16 98 0 [place] [facility] [place] [facility] Social History: Smoking Status (Most current) [...] Facil ity May 25, 2024 09:30 AM [place]-TOBACCO NEVER [facility] SED [facility] Tobacco Use History This section includes a history of the smoking, or tobacco-related health factors, that were collected on or before the date of the Encounter. The data comes from the [place] facility where the Encounter took place. Date/Time Smoking Status/Tobacco Use Comment F acility May 25, 2024 09:30 AM VA-TOBACCO NEVER U SED OTHER TYPE [place] [facility] [place] [facility] Jan 19, 2023 12:24 PM VA-TOBACCO NEVER USED [place] [facility] [place] [facility] Jan 15, 2021 11:00 AM [facility]ACCO [facility] Advance Directives: All historical and current [...] Provider Source Jan 20, 2021 ADVANCE DIRECTIVE CHMURA,BENTON ELZA V A [facility]TRL [facility] Encounter Notes: All associated encounter notes This section contains the clinical notes associated to the Encounter. Date/Time Encounter Note(s) Provider Source Oct 16, 2024 07:02 PM ADDENDUM: LOCAL TITLE: Addendum STANDARD TITLE: ADDENDUM DATE OF NOTE: OCT 16, 2024@19:02:25 ENTRY DATE: OCT 16, 2024@19:02:26 AUTHOR: JENNIFER SEGURA EXP COSIGNER: URGENCY: STATUS: COMPLETED Please renew if in agreement. Thank you! OUTPT INCONT LINER PREVAIL GUARDS #[id number] (Status = ) USE 1 LINER TOPICALLY TWO TIMES A DAY Rx# [id number] Last Released: 09/25/24 Qty/Days Supply: 126/60 Rx Expiration Date: 10/10/24 Refills Remainin Indication: INCONTINENCE OUTPT INCONT LINER,MENS X-HVY SURECARE #[id number] (Status = ) USE 1 LINER TOPICALLY AT BEDTIME Rx# [id number] Last Released: 02/01/24 Qty/Days Supply: 84/84 Rx Expiration Date: 10/10/24 Refills Remainin Indication: INCONTINENCE OUTPT INCONTINENCE WRAP,MALE (Status = ) USE 1 INCONTINENCE WRAP TOPICALLY AT BEDTIME Rx# [id number] Last Released: 09/25/24 Qty/Days Supply: 100/90 Rx Expiration Date: 10/11/24 Refills Remainin Indication: INCONTINENCE OUTPT UNDERPAD,BED ULTRASORB [id number] M#3136 (Status = ) USE 2 UNDERPADS TOPICALLY AT BEDTIME Rx# [id number] Last Released: 10/12/23 Qty/Days Supply: 200/90 Rx Expiration Date: 10/10/24 Refills Remainin Indication: INCONTINENCE /sharron/ JENNIFER SEGURA PHOTOGRAPHS CURATOR [facility] VETERINARY MEAT INSPECTOR Signed: 10/16/2024 19:05 Receipt Acknowledged By: 10/17/2024 08:39 /sharron/ LUIS FERNANDO GASTON NURSE PRACTITIONER --- Original Document --- 10/16/24 HB RN PROGRESS NOTE: Nursing Progress Note Active and Recently Outpatient Medications (including Supplies): Active Outpatient Medications Status 1) APIXABAN 5MG TAB TAKE ONE TABLET BY MOUTH EVERY 12 HOURS FOR ACTIVE (S) Indication: ATRIAL FIBRILLATION 2) ARTIFICIAL SALIVA ORAL SPRAY 2 SPRAYS BY MOUTH EVERY 2 ACTIVE HOURS NEEDED (USE DIRECTED) Indication: FOR DRY MOUTH 3) CARBIDOPA 25/LEVODOPA 100MG SA TAB TAKE 1 TABLET BY MOUTH ACTIVE (S) FOUR TIMES A DAY 4) CARBIDOPA 25/LEVODOPA 100MG TAB TAKE 1 TABLET BY MOUTH FOUR ACTIVE (S) TIMES A DAY 5) CATHETER,EXTERNAL MED ROCH#[id number] USE 1 CATHETER (29MM) ACTIVE URETHRAL AT BEDTIME INSTRUCTED FOR Indication: URINARY INCONTINENCE 6) CHLORHEXIDINE GLUCONATE 0.12% MOUTHWASH RINSE [...] 7XD Indication: FECAL AND URINE INCONTINENCE 9) DIAPER ADULT LARGE EXTRA ABSORBENT USE 1 BRIEF DIRECTED ACTIVE (S) THREE TIMES A DAY Indication: INCONTINENCE 10) [...] ACTIVE NEEDED FOR SLEEP Indication: INSOMNIA 14) MELATONIN 5MG CAP/TAB TAKE THREE CAPSULE/TABLETS BY MOUTH AT ACTIVE BEDTIME Indication: FOR INSOMNIA 15) MEMANTINE HCL 10MG TAB TAKE ONE TABLET BY MOUTH TWICE DAILY ACTIVE 16) MIDODRINE HCL 5MG TAB TAKE ONE TABLET BY MOUTH THREE TIMES ACTIVE DAILY NEEDED Indication: FOR LOW BLOOD PRESSURE 17) MULTIVITAMIN/MINERALS CHEW TAB CHEW 1 TABLET BY MOUTH ONCE ACTIVE DAILY Indication: FOR VITAMIN SUPPLEMENTATION 18) NUTRITION SUPL ENSURE PLUS/VANILLA LIQ DRINK 1 CAN BY MOUTH ACTIVE THREE TIMES A DAY Indication: FOR NUTRITIONAL SUPPLEMENTATION 19) ORAL,SWAB TOOTHETTE USE 1 MOUTH SWAB DIRECTED ONCE DAILY ACTIVE TO USE WITH CHLOREHEXADINE ORAL RINSE 20) POLYETHYLENE GLYCOL 3350 ORAL PWDR TAKE 17 GRAMS(FILL CAP TO ACTIVE 17GM LINE) BY MOUTH ONCE DAILY [MIX WITH 4 TO 8OZ. OF BEVERAGE] Indication: FOR CONSTIPATION 21) RASAGILINE MESYLATE 1MG TAB TAKE ONE TABLET BY MOUTH ONCE ACTIVE DAILY 22) URINARY DRAINAGE BAG [place] #[id number] USE 1 DRAINAGE BAG EVERY 7 ACTIVE DAYS Indication: MONTIEL Inactive Outpatient Medications Status 1) INCONT LINER PREVAIL GUARDS #[id number] USE 1 LINER TOPICALLY TWO TIMES A DAY Indication: INCONTINENCE 2) INCONT LINER,MENS X-HVY SURECARE #[id number] USE 1 LINER TOPICALLY AT BEDTIME Indication: INCONTINENCE 3) WRAP,MALE USE 1 WRAP TOPICALLY AT BEDTIME Indication: INCONTINENCE 4) UNDERPAD,BED ULTRASORB [id number] M#2786 USE 2 UNDERPADS TOPICALLY AT BEDTIME Indication: INCONTINENCE Active Non-VA Medications Status 1) Non-VA NIFEDIPINE (EQV-XL) 30MG SA TAB 30MG BY MOUTH ONCE ACTIVE DAILY Indication: RAYNAUD'S 27 Total Medications MEDICATION REVIEW Medication review [...] in patient's home at time of visit. One[place] identified by: Full Name, Facial Recognition Length of visit in home: 45 MINUTES Problem addressed for this visit: Urine Incontinence, hypotension Specimen(s) collected during this visit: PCP to cancel labs she ordered 09/25. None NURSING SUMMARY: RNCM made home visit for chronic disease management, c/v and c/p assessment, neuro assessment, review meds, caregiver support. Oneida sitting in the living in recliner watching TV upon arrival. Well groomed. Dressed appropriately. Mood flat. Some eye contact. Answering questions appropriately. Speech soft and monotone Denies pain. Has no complaints. [facility] PCP had discussion with spouse for concerns of Raynaud's on 09/25. Spouse reported Discoloration of skin - concern for Raynaud's due to bilateral finger tips white, agreed to additional labs at next CM routine visit. Spouse then called [facility] after her discussion with [facility] P[facility] and scheduled [facility]VC for concerns of Raynaud's. [facility] P[facility] started on Procardia XL x 30 days. Notified [facility] PCP [facility] pcp is treating for Raynaud's. Labs [facility] PCP ordered on 09/25 canceled due to [facility] P[facility] treating for Raynaud's. Today Spouse reports she stopped the Procardia XL before the 30 days, Raynaud's resolved having no further issues . Blood pressure has been running on the lower side 95/62. Denies chest pain, palpations, dizziness. Discussed increasing fluid intake to 48 oz of water daily. Slow position changes. Spouse reports increased incontinence. Denies hematuria x 3 weeks. No ssx of uti. Upcoming appts Dentist 10/18, Neurologist Dr. Fabby Sun 10/29, eye appt 11/02, dermatology 11/15 Spouse requesting chair alarm for 's chair in the TV room. currently has chair alarm for his recliner in the living room. Blood Pressure: 95/62 (10/16/2024 10:45) Pulse: 59 (10/16/2024 10:45) Respiration: 16 (10/16/2024 10:45) Temperature: 98.3 F [36.8 C] (10/16/2024 10:45) Pain Score: 0 (10/16/2024 10:45) EXAMINATION: Lungs: Ls clear throughout. Resp easy and reg. Edema: PPP, No edema HR: Strong and reg. Denies chest pain, palpations, dizziness. Bowel/Bladder: Incontinent of urine. Denies hematuria x 3 weeks. New brand condom catheter RNCM ordered is working well. Occasional incontinence of stool. Denies diarrhea/constipation. Skin: Clean, dry, and intact. No skin breakdown. Rash has resolved since stopped crystal light. If pain score is above 0/10: Are [...] as possible with assist from his and [facility] Patient verbalizes understanding to above and will call with any concerns or changes in condition. For emergent care call 911. Plan for next visit: 11/06/24 for chronic disease management, c/v and c/p assessment, neuro assessment /ZACHARIAH Rodriguez [facility] VETERINARY MEAT INSPECTOR Signed: 10/16/2024 18:50 10/16/2024 ADDENDUM STATUS: COMPLETED Spouse requesting chair alarm for Oneida's chair in the TV room. One[place] currently has chair alarm for his recliner in the living room. /ZACHARIAH Rodriguez [facility] VETERINARY MEAT INSPECTOR Signed: 10/16/2024 18:51 Receipt Acknowledged By: * AWAITING SIGNATURE * RAMIN MENDIETA HEATHER L [place] [facility] [place] [facility] Oct 16, 2024 07:00 PM PREVENTIVE MEDICINE NURSING NOTE: LOCAL TITLE: CLINICAL REMINDERS/NURSING STANDARD TITLE: PREVENTIVE MEDICINE NURSING NOTE DATE OF NOTE: OCT 16, 2024@19:00 ENTRY DATE: OCT 16, 2024@19:00:38 AUTHOR: JENNIFER SEGURA EXP COSIGNER: URGENCY: STATUS: COMPLETED RHS Screen: RHS Screen Session Format: Face to Face Environmental Check Screening was not completed at this time due to: Another adult present /ZACHARIAH Rodriguez VETERINARY MEAT INSPECTOR Signed: 10/16/2024 19:01 JENNIFER SEGURA [facility] Oct 16, 2024 06:58 PM PREVENTIVE MEDICINE NURSING NOTE: LOCAL TITLE: CLINICAL REMINDERS/NURSING STANDARD TITLE: PREVENTIVE MEDICINE NURSING NOTE DATE OF NOTE: OCT 16, 2024@18:58 ENTRY DATE: OCT 16, 2024@18:58:55 AUTHOR: JENNIFER SEGURA EXP COSIGNER: URGENCY: STATUS: COMPLETED PAVE Foot Check: A complete foot check was completed at this encounter. VISUAL INSPECTION: Includes inspection for skin breaks, deformity, erythema, trauma, pallor on elevation, dependent rubor, nail deformities, extensive callus and pitting edema. Visual exam results: Normal PEDAL PULSES: Includes palpation of dorsalis and posterior tibial pulses and signs/symptoms of vascular compromise like pain, pallor, paresthesia or paralysis. Present (even if diminished) SENSORY CHECK: Includes 10 gram Monofilament (Castine-Wil) test of sensation. Intact (Greater than or equal to 80% of sites checked) Abnormal (Less than 80% of sites checked): Intact LOW-RISK: LOW RISK INFORMATION PROVIDED: 1. Advised patient not to walk barefoot. 2. Explained the importance of daily foot checks for changes. 3. Stressed the importance of daily foot hygiene, including bathing and complete drying. /sharron/ ZACHARIAH SWIFT VETERINARY MEAT INSPECTOR Signed: 10/16/2024 19:00 JENNIFER SEGURA CNTL [facility] Oct 16, 2024 06:55 PM PREVENTIVE MEDICINE NURSING NOTE: LOCAL TITLE: CLINICAL REMINDERS/NURSING STANDARD TITLE: PREVENTIVE MEDICINE NURSING NOTE DATE OF NOTE: OCT 16, 2024@18:55 ENTRY DATE: OCT 16, 2024@18:55:23 AUTHOR: JENNIFER SEGURA EXP COSIGNER: URGENCY: STATUS: COMPLETED Herpes Zoster (Shingles) Vaccine: The patient declines to receive the recommended dose of zoster (shingles) vaccine. Immunization: ZOSTER RECOMBINANT Refusal Reason: PATIENT DECISION Patient refuses all immunization(s) in the ZOSTER group Date Documented: 10/16/24 18:58 /sharron/ JENNIFER SEGURA PHOTOGRAPHS CURATOR [facility] VETERINARY MEAT INSPECTOR Signed: 10/16/2024 18:58 JENNIFER SEGURA [place] [facility] Oct 16, 2024 06:52 PM PREVENTIVE MEDICINE NURSING NOTE: LOCAL TITLE: CLINICAL REMINDERS/NURSING STANDARD TITLE: PREVENTIVE MEDICINE NURSING NOTE DATE OF NOTE: OCT 16, 2024@18:52 ENTRY DATE: OCT 16, 2024@18:52:32 AUTHOR: JENNIFER SEGURA EXP COSIGNER: URGENCY: STATUS: COMPLETED Falls & Incontinence Screen: Falls Screen: 2. Two or more falls. Incontinence Screen: During the past 12 months, has the patient has any characteristics of incontinence (ability, voiding, leakage, etc.)? YES - Incontinence is a problem for this patient. Is urinary incontinence NEW for this patient? NO - Incontinence is NOT a new problem. What is the current treatment? wears condom catheter. Followed by urologist LOCAL TITLE: ADMINISTRATIVE NOTE STANDARD TITLE: ADMINISTRATIVE NOTE DATE OF NOTE: OCT 10, 2024@09:08 ENTRY DATE: OCT 10, 2024@09:08:21 AUTHOR: LUIS FERNANDO FONTANEZ EXP COSIGNER: URGENCY: STATUS: COMPLETED Falls & Incontinence Screen: Falls Screen: During the past 12 months, did the patient report any falls? 3. At least one fall with injury requiring treatment (in ED or clinic visit). Falls evaluation: (Must be completed by PROVIDER after Positive Falls Screen!) Circumstances of Fall: (I.e. how fall(s) occurred; patient injury sustained; treatment required for injury.) 10/25/23 miss judged edge of couch 12/13/23 hit back of toilet when trying to get up01/23/24 bent over lost his balance02/01/24 getting out of wheelchir lost balance right elbow abrasion02/28/24 fell in living room bruise to buttock03/08/24 walking with walker knees buckled 04/17/24 got up fell backwards in living room hit electric w/c Medications patient is taking: (Review of medications which MAY have contributed to patient fall or mobility disorder.) Medications were identified which may have contributed to patient fall or mobility disorder. Please specify: Which meds? carbiodpa/levodopa, glycopyrolate, HCTZ, hydroxyzine, memantine, rasagiline Relevant Chronic Conditions (diseases disorders likely to contribute to fall risk, e.g. DJD both hips with stiffness and pain): The patient has chronic diseases or disorders which likely contributed to fall risk. Please specify: Which conditions? Parkinson's disease, HTN, Afib, urinary incontinence, memory loss Diagnostic Plans/Therapeutic Recommendations (Check all that apply): Adaptation of Living Conditions to Decrease Fall Risk. Please Specify: with 1 assist, walker and gait belt, utilize wheelchair Actions Taken (to implement above diagnostic plans): Other: Specific actions: continue preventative fall behaviors use walker, w/c, ask for help monitor movement /sharron/ LUIS FERNANDO FONTANEZ [employer] OPERATIONS SPECIALIST-C DARSHAN NURSE PRACTITIONER Signed: 10/10/2024 09:17 /ZACHARIAH Rodriguez VETERINARY MEAT INSPECTOR Signed: 10/16/2024 18:55 JENNIFER SEGURA [place] [facility] Oct 16, 2024 06:51 PM ADDENDUM: LOCAL TITLE: Addendum STANDARD TITLE: ADDENDUM DATE OF NOTE: OCT 16, 2024@18:51:06 ENTRY DATE: OCT 16, 2024@18:51:08 AUTHOR: JENNIFER SEGURA EXP COSIGNER: URGENCY: STATUS: COMPLETED Spouse requesting chair alarm for Oneida's chair in the TV room. currently has chair alarm for his recliner in the living room. /ZACHARIAH Rodriguez DARSHAN VETERINARY MEAT INSPECTOR Signed: 10/16/2024 18:51 Receipt Acknowledged By: 10/17/2024 15:38 /sharron/ RAMIN MENDIETA, PT, MS, ATP [facility] Physical Therapist --- Original Document --- 10/16/24 [facility] RN PROGRESS NOTE: Nursing Progress Note Active and Recently Outpatient Medications (including Supplies): Active Outpatient Medications Status 1) APIXABAN 5MG TAB TAKE ONE TABLET BY MOUTH EVERY 12 HOURS FOR ACTIVE (S) Indication: ATRIAL FIBRILLATION 2) ARTIFICIAL SALIVA ORAL SPRAY 2 SPRAYS BY MOUTH EVERY 2 ACTIVE HOURS NEEDED (USE DIRECTED) Indication: FOR DRY MOUTH 3) CARBIDOPA 25/LEVODOPA 100MG SA TAB TAKE 1 TABLET BY MOUTH ACTIVE (S) FOUR TIMES A DAY 4) CARBIDOPA 25/LEVODOPA 100MG TAB TAKE 1 TABLET BY MOUTH FOUR ACTIVE (S) TIMES A DAY 5) CATHETER,EXTERNAL MED ROCH#[id number] USE 1 CATHETER (29MM) ACTIVE URETHRAL AT BEDTIME INSTRUCTED FOR Indication: URINARY INCONTINENCE 6) CHLORHEXIDINE GLUCONATE 0.12% MOUTHWASH RINSE [...] 7XD Indication: FECAL AND URINE INCONTINENCE 9) DIAPER ADULT LARGE EXTRA ABSORBENT USE 1 BRIEF DIRECTED ACTIVE (S) THREE TIMES A DAY Indication: INCONTINENCE 10) [...] ACTIVE NEEDED FOR SLEEP Indication: INSOMNIA 14) MELATONIN 5MG CAP/TAB TAKE THREE CAPSULE/TABLETS BY MOUTH AT ACTIVE BEDTIME Indication: FOR INSOMNIA 15) MEMANTINE HCL 10MG TAB TAKE ONE TABLET BY MOUTH TWICE DAILY ACTIVE 16) MIDODRINE HCL 5MG TAB TAKE ONE TABLET BY MOUTH THREE TIMES ACTIVE DAILY NEEDED Indication: FOR LOW BLOOD PRESSURE 17) MULTIVITAMIN/MINERALS CHEW TAB CHEW 1 TABLET BY MOUTH ONCE ACTIVE DAILY Indication: FOR VITAMIN SUPPLEMENTATION 18) NUTRITION SUPL ENSURE PLUS/VANILLA LIQ DRINK 1 CAN BY MOUTH ACTIVE THREE TIMES A DAY Indication: FOR NUTRITIONAL SUPPLEMENTATION 19) ORAL,SWAB TOOTHETTE USE 1 MOUTH SWAB DIRECTED ONCE DAILY ACTIVE TO USE WITH CHLOREHEXADINE ORAL RINSE 20) POLYETHYLENE GLYCOL 3350 ORAL PWDR TAKE 17 GRAMS(FILL CAP TO ACTIVE 17GM LINE) BY MOUTH ONCE DAILY [MIX WITH 4 TO 8OZ. OF BEVERAGE] Indication: FOR CONSTIPATION 21) RASAGILINE MESYLATE 1MG TAB TAKE ONE TABLET BY MOUTH ONCE ACTIVE DAILY 22) URINARY DRAINAGE BAG [place] #[id number] USE 1 DRAINAGE BAG EVERY 7 ACTIVE DAYS Indication: MONTIEL Inactive Outpatient Medications Status 1) INCONT LINER PREVAIL GUARDS #[id number] USE 1 LINER TOPICALLY TWO TIMES A DAY Indication: INCONTINENCE 2) INCONT LINER,MENS X-HVY SURECARE #[id number] USE 1 LINER TOPICALLY AT BEDTIME Indication: INCONTINENCE 3) WRAP,MALE USE 1 WRAP TOPICALLY AT BEDTIME Indication: INCONTINENCE 4) UNDERPAD,BED ULTRASORB [id number] M#7746 USE 2 UNDERPADS TOPICALLY AT BEDTIME Indication: INCONTINENCE Active Non-VA Medications Status 1) Non-VA NIFEDIPINE (EQV-XL) 30MG SA TAB 30MG BY MOUTH ONCE ACTIVE DAILY Indication: RAYNAUD'S 27 Total Medications MEDICATION REVIEW Medication review [...] 45 MINUTES Problem addressed for this visit: Urine Incontinence, hypotension Specimen(s) collected during this visit: PCP to cancel labs she ordered 09/25. None NURSING SUMMARY: RNCM made home visit for chronic disease management, c/v and c/p assessment, neuro assessment, review meds, caregiver support. sitting in the living in recliner watching TV upon arrival. Well groomed. Dressed appropriately. Mood flat. Some eye contact. Answering questions appropriately. Speech soft and monotone Denies pain. Has no complaints. [facility] PCP had discussion with spouse for concerns of Raynaud's on 09/25. Spouse reported Discoloration of skin - concern for Raynaud's due to bilateral finger tips white, agreed to additional labs at next RNCM routine visit. Spouse then called [facility] office after her discussion with [facility] PCP and scheduled VVC for concerns of Raynaud's. [facility] PCP started [place] on Procardia XL x 30 days. Notified [facility] PCP [facility] pcp is treating for Raynaud's. Labs [facility] PCP ordered on 09/25 canceled due to [facility] treating for Raynaud's. Today Spouse reports she stopped the Procardia XL before the 30 days, Raynaud's resolved having no further issues . Blood pressure has been running on the lower side 95/62. Denies chest pain, palpations, dizziness. Discussed increasing fluid intake to 48 oz of water daily. Slow position changes. Spouse reports increased incontinence. Denies hematuria x 3 weeks. No ssx of uti. Upcoming appts Dentist 10/18, Neurologist Dr. Fabby Sun 10/29, eye appt 11/02, dermatology 11/15 Spouse requesting chair alarm for 's chair in the TV room. One[place] currently has chair alarm for his recliner in the living room. Blood Pressure: 95/62 (10/16/2024 10:45) Pulse: 59 (10/16/2024 10:45) Respiration: 16 (10/16/2024 10:45) Temperature: 98.3 F [36.8 C] (10/16/2024 10:45) Pain Score: 0 (10/16/2024 10:45) EXAMINATION: Lungs: Ls clear throughout. Resp easy and reg. Edema: PPP, No edema HR: Strong and reg. Denies chest pain, palpations, dizziness. Bowel/Bladder: Incontinent of urine. Denies hematuria x 3 weeks. New brand condom catheter RNCM ordered is working well. Occasional incontinence of stool. Denies diarrhea/constipation. Skin: Clean, dry, and intact. No skin breakdown. Rash has resolved since stopped crystal light. If pain score is above 0/10: Are you having any new pain or worsening chronic pain? No Are you satisfied with your current pain management plan? Yes - Continue with your current pain management plan. Home Safety FALLS NO INFECTIONS NO ER/HOSPITALIZATIONS NO Teaching/goals: Refer to nursing summary for teaching. Oneida goal is to live at home safely with his as long as possible with assist from his and [facility] Patient verbalizes understanding to above and will call with any concerns or changes in condition. For emergent care call 911. Plan for next visit: 11/06/24 for chronic disease management, c/v and c/p assessment, neuro assessment /es/ JENNIFER SEGURA RN BSN [facility] VETERINARY MEAT INSPECTOR Signed: 10/16/2024 18:50 10/16/2024 ADDENDUM STATUS: COMPLETED Please renew if in agreement. Thank you! OUTPT INCONT LINER PREVAIL GUARD #[id number] (Status = ) USE 1 LINER TOPICALLY TWO TIMES A DAY Rx# [id number] Last Released: 09/25/24 Qty/Days Supply: 126/60 Rx Expiration Date: 10/10/24 Refills Remainin Indication: INCONTINENCE OUTPT INCONT LINER,MENS X-HVY SURECARE #[id number] (Status = ) USE 1 LINER TOPICALLY AT BEDTIME Rx# [id number] Last Released: 02/01/24 Qty/Days Supply: 84/84 Rx Expiration Date: 10/10/24 Refills Remainin Indication: INCONTINENCE OUTPT INCONTINENCE WRAP,MALE (Status = ) USE 1 INCONTINENCE WRAP TOPICALLY AT BEDTIME Rx# [id number] Last Released: 09/25/24 Qty/Days Supply: 100/90 Rx Expiration Date: 10/11/24 Refills Remainin Indication: INCONTINENCE OUTPT UNDERPAD,BED ULTRASORB [id number] M#3136 (Status = ) USE 2 UNDERPADS TOPICALLY AT BEDTIME Rx# [id number] Last Released: 10/12/23 Qty/Days Supply: 200/90 Rx Expiration Date: 10/10/24 Refills Remainin Indication: INCONTINENCE /es/ ZACHARIAH SWIFT [facility] VETERINARY MEAT INSPECTOR Signed: 10/16/2024 19:05 Receipt Acknowledged By: 10/17/2024 08:39 /sharron/ LUIS FERNANDO CHIU [facility] NURSE PRACTITIONER JENNIFER SEGURA CNTR [facility] Oct 16, 2024 06:51 PM PREVENTIVE MEDICINE NURSING NOTE: LOCAL TITLE: CLINICAL REMINDERS/NURSING STANDARD TITLE: PREVENTIVE MEDICINE NURSING NOTE DATE OF NOTE: OCT 16, 2024@18:51 ENTRY DATE: OCT 16, 2024@18:51:57 AUTHOR: JENNIFER SEGURA EXP COSIGNER: URGENCY: STATUS: COMPLETED Screen for Embedded Fragments: SCREEN FOR EMBEDDED FRAGMENTS The patient reports no embedded fragments. /ZACHARIAH Rodriguez [facility] VETERINARY MEAT INSPECTOR Signed: 10/16/2024 18:52 JENNIFER SEGURA CNTRL [facility] [place] [facility] Oct 16, 2024 05:17 PM [facility] NURSING NOTE: LOCAL TITLE: HB RN PROGRESS NOTE STANDARD TITLE: [facility] NURSING NOTE DATE OF NOTE: OCT 16, 2024@17:17 ENTRY DATE: OCT 16, 2024@17:17:15 AUTHOR: JENNIFER SEGURA EXP COSIGNER: URGENCY: STATUS: COMPLETED HB RN PROGRESS NOTE Has ADDENDA Nursing Progress Note Active and Recently Outpatient Medications (including Supplies): Active Outpatient Medications Status 1) APIXABAN 5MG TAB TAKE ONE TABLET BY MOUTH EVERY 12 HOURS FOR ACTIVE (S) Indication: ATRIAL FIBRILLATION 2) ARTIFICIAL SALIVA ORAL SPRAY 2 SPRAYS BY MOUTH EVERY 2 ACTIVE HOURS NEEDED (USE DIRECTED) Indication: FOR DRY MOUTH 3) CARBIDOPA 25/LEVODOPA 100MG SA TAB TAKE 1 TABLET BY MOUTH ACTIVE (S) FOUR TIMES A DAY 4) CARBIDOPA 25/LEVODOPA 100MG TAB TAKE 1 TABLET BY MOUTH FOUR ACTIVE (S) TIMES A DAY 5) CATHETER,EXTERNAL MED ROCH#[id number] USE 1 CATHETER (29MM) ACTIVE URETHRAL AT BEDTIME INSTRUCTED FOR Indication: URINARY INCONTINENCE 6) CHLORHEXIDINE GLUCONATE 0.12% MOUTHWASH RINSE [...] 7XD Indication: FECAL AND URINE INCONTINENCE 9) DIAPER ADULT LARGE EXTRA ABSORBENT USE 1 BRIEF DIRECTED ACTIVE (S) THREE TIMES A DAY Indication: INCONTINENCE 10) [...] ACTIVE NEEDED FOR SLEEP Indication: INSOMNIA 14) MELATONIN 5MG CAP/TAB TAKE THREE CAPSULE/TABLETS BY MOUTH AT ACTIVE BEDTIME Indication: FOR INSOMNIA 15) MEMANTINE HCL 10MG TAB TAKE ONE TABLET BY MOUTH TWICE DAILY ACTIVE 16) MIDODRINE HCL 5MG TAB TAKE ONE TABLET BY MOUTH THREE TIMES ACTIVE DAILY NEEDED Indication: FOR LOW BLOOD PRESSURE 17) MULTIVITAMIN/MINERALS CHEW TAB CHEW 1 TABLET BY MOUTH ONCE ACTIVE DAILY Indication: FOR VITAMIN SUPPLEMENTATION 18) NUTRITION SUPL ENSURE PLUS/VANILLA LIQ DRINK 1 CAN BY MOUTH ACTIVE THREE TIMES A DAY Indication: FOR NUTRITIONAL SUPPLEMENTATION 19) ORAL,SWAB TOOTHETTE USE 1 MOUTH SWAB DIRECTED ONCE DAILY ACTIVE TO USE WITH CHLOREHEXADINE ORAL RINSE 20) POLYETHYLENE GLYCOL 3350 ORAL PWDR TAKE 17 GRAMS(FILL CAP TO ACTIVE 17GM LINE) BY MOUTH ONCE DAILY [MIX WITH 4 TO 8OZ. OF BEVERAGE] Indication: FOR CONSTIPATION 21) RASAGILINE MESYLATE 1MG TAB TAKE ONE TABLET BY MOUTH ONCE ACTIVE DAILY 22) URINARY DRAINAGE BAG BARD #[id number] USE 1 DRAINAGE BAG EVERY 7 ACTIVE DAYS Indication: MONTIEL Inactive Outpatient Medications Status 1) INCONT LINER PREVAIL GUARDS #[id number] USE 1 LINER TOPICALLY TWO TIMES A DAY Indication: INCONTINENCE 2) INCONT LINER,MENS X-HVY SURECARE #[id number] USE 1 LINER TOPICALLY AT BEDTIME Indication: INCONTINENCE 3) WRAP,MALE USE 1 WRAP TOPICALLY AT BEDTIME Indication: INCONTINENCE 4) UNDERPAD,BED ULTRASORB [id number] M#3136 USE 2 UNDERPADS TOPICALLY AT BEDTIME Indication: INCONTINENCE Active Non-VA Medications Status 1) Non-VA NIFEDIPINE (EQV-XL) 30MG SA TAB 30MG BY MOUTH ONCE ACTIVE DAILY Indication: RAYNAUD'S 27 Total Medications MEDICATION REVIEW Medication review [...] 45 MINUTES Problem addressed for this visit: Urine Incontinence, hypotension Specimen(s) collected during this visit: PCP to cancel labs she ordered 09/25. None NURSING SUMMARY: RNCM made home visit for chronic disease management, c/v and c/p assessment, neuro assessment, review meds, caregiver support. [place] sitting in the living in recliner watching TV upon arrival. Well groomed. Dressed appropriately. Mood flat. Some eye contact. Answering questions appropriately. Speech soft and monotone Denies pain. Has no complaints. [facility] PCP had discussion with spouse for concerns of Raynaud's on 09/25. Spouse reported Discoloration of skin - concern for Raynaud's due to bilateral finger tips white, agreed to additional labs at next RNCM routine visit. Spouse then called [facility] office after her discussion with [facility] PCP and scheduled VVC for concerns of Raynaud's. [facility] PCP started [place] on Procardia XL x 30 days. Notified [facility] PCP [facility] pcp is treating for Raynaud's. Labs [facility] PCP ordered on 09/25 canceled due to [facility] treating for Raynaud's. Today Spouse reports she stopped the Procardia XL before the 30 days, Raynaud's resolved having no further issues . Blood pressure has been running on the lower side 95/62. Denies chest pain, palpations, dizziness. Discussed increasing fluid intake to 48 oz of water daily. Slow position changes. Spouse reports increased incontinence. Denies hematuria x 3 weeks. No ssx of uti. Upcoming appts Dentist 10/18, Neurologist Dr. Fabby Sun 10/29, eye appt 11/02, dermatology 11/15 Spouse requesting chair alarm for Oneida's chair in the TV room. currently has chair alarm for his recliner in the living room. Blood Pressure: 95/62 (10/16/2024 10:45) Pulse: 59 (10/16/2024 10:45) Respiration: 16 (10/16/2024 10:45) Temperature: 98.3 F [36.8 C] (10/16/2024 10:45) Pain Score: 0 (10/16/2024 10:45) EXAMINATION: Lungs: Ls clear throughout. Resp easy and reg. Edema: PPP, No edema HR: Strong and reg. Denies chest pain, palpations, dizziness. Bowel/Bladder: Incontinent of urine. Denies hematuria x 3 weeks. New brand condom catheter RNCM ordered is working well. Occasional incontinence of stool. Denies diarrhea/constipation. Skin: Clean, dry, and intact. No skin breakdown. Rash has resolved since stopped crystal light. If pain score is above 0/10: Are [...] as possible with assist from his and [facility], ROADS SUPERVISOR Patient verbalizes understanding to above and will call with any concerns or changes in condition. For emergent care call 911. Plan for next visit: 11/06/24 for chronic disease management, c/v and c/p assessment, neuro assessment /sharron/ ZACHARIAH SWIFT [facility] VETERINARY MEAT INSPECTOR Signed: 10/16/2024 18:50 10/16/2024 ADDENDUM STATUS: COMPLETED Spouse requesting chair alarm for One[place]'s chair in the TV room. [place] currently has chair alarm for his recliner in the living room. /sharron/ ZACHARIAH SWIFT [facility] VETERINARY MEAT INSPECTOR Signed: 10/16/2024 18:51 Receipt Acknowledged By: * AWAITING SIGNATURE * RAMIN MENDIETA 10/16/2024 ADDENDUM STATUS: COMPLETED Please renew if in agreement. Thank you! OUTPT INCONT LINER PREVAIL GUARDS #[id number] (Status = ) USE 1 LINER TOPICALLY TWO TIMES A DAY Rx# [id number] Last Released: 09/25/24 Qty/Days Supply: 126/60 Rx Expiration Date: 10/10/24 Refills Remainin Indication: INCONTINENCE OUTPT INCONT LINER,MENS X-HVY SURECARE #[id number] (Status = ) USE 1 LINER TOPICALLY AT BEDTIME Rx# [id number] Last Released: 02/01/24 Qty/Days Supply: 84/84 Rx Expiration Date: 10/10/24 Refills Remainin Indication: INCONTINENCE OUTPT INCONTINENCE WRAP,MALE (Status = ) USE 1 INCONTINENCE WRAP TOPICALLY AT BEDTIME Rx# [id number] Last Released: 09/25/24 Qty/Days Supply: 100/90 Rx Expiration Date: 10/11/24 Refills Remainin Indication: INCONTINENCE OUTPT UNDERPAD,BED ULTRASORB [id number] M#3136 (Status = ) USE 2 UNDERPADS TOPICALLY AT BEDTIME Rx# [id number] Last Released: 10/12/23 Qty/Days Supply: 200/90 Rx Expiration Date: 10/10/24 Refills Remainin Indication: INCONTINENCE /es/ JENNIFER SEGURA, PHOTOGRAPHS CURATOR [facility] VETERINARY MEAT INSPECTOR Signed: 10/16/2024 19:05 Receipt Acknowledged By: * AWAITING SIGNATURE * LUIS FERNANDO FONTANEZ [facility]
--- OUTSIDE RECORDS SUMMARY | 2024-10-29 13:41 | XMS_ITS | Encounter Summary ---
Author Organization [facility] Address [address] [place] [address] Care Team Providers Care Chief Mate Name Role Phone Geri Samson MD Primary Care Provider [phone] Encounter Details Date Type Department Care Team (Late st Contact Info) Description 05/11/2024 Lab Requisition [facility] Lab 299 Replaced By [facility] [place] [phone] Geri Samson MD [address] [place] [address] Type 2 diabetes mellitus without complications (CMS/HCC V24, CMS/HCC V28) Social History Tobacco Use Types Packs/Day Years Used Date Smoking Tobacco: Never Assessed Sex and Gender Information Value Date Recorded Sex Assigned at Not on file Legal Sex Male 3:04 AM EST Gender Identity Not on file Sexual Orientation Not on file documented as of this encounter Plan of Treatment Not on file documented as of this encounter Procedures Procedure Name Priority Date/Time Associated Diagnosis Comments HEMOGLOBIN A1C Routine 05/14/2024 8:26 AM EST Type 2 diabetes mellitus without complications (CMS/HCC) documented in this encounter Results * Hemoglobin A1c (05/14/2024 8:26 AM EST) Hemoglobin A1C 4.4 <6.5 % LAB CHEMISTRY METHOD 05/14/2024 1:59 PM EST [facility] Mean Bld Glu Estim. 80 mg/dL LAB CHEMISTRY METHOD 05/14/2024 1:59 PM EST [facility] Blood Venous blood specimen / Unknown Venipuncture / Unknown 05/14/2024 8:26 AM EST 05/14/2024 10:20 AM EST Geri Samson MD LAB BLOOD ORDERABLES Final Resul t [facility] ([facility]) [facility] [address] [place] [address], documented in this encounter Visit Diagnoses Diagnosis Type 2 diabetes mellitus without complications (CMS/HCC V24, CMS/HCC V28) documented in this encounter Care Teams Chief Mate Relationship Specialty Start Date End Date Geri Samson MD [address] [place] [address] [address] [place] [address] PCP - General Geriatric Medicine 05/10/24 documented as of this encounter
--- OUTSIDE RECORDS SUMMARY | 2024-10-29 13:41 | XMS_ITS | Encounter Summary ---
Author Organization [facility] Address [address] [place] [address] Phone Care Team Providers Care Customer Support Executive Name Role Phone Shirin Mcwilliams MD Primary Care Prov ider Encounter Details Date Type Department Care Team (Late st Contact Info) Description 04/04/2024 Documentation Only [facility] [address] [place] [address] Aiyana Esteves [address] [place] [phone] Social History Tobacco Use Types Packs/Day [...] Visit [facility] Mikael DudleyYoly Dr Sienna ACOSTA [address] [place] [phone] Emil Davis MD [address] [place] [address] [place] [address] documented as of this encounter Visit Diagnoses Not on filedocumented in this encounter Care Teams Customer Support Executive Relationship Specialty Start Date End Date Shirin Mcwilliams MD [address] [place] [phone] PCP - General 06/30/20 documented as of this encounter
--- OUTSIDE RECORDS SUMMARY | 2024-10-29 13:41 | XMS_ITS | Encounter Summary ---
Author Name [facility] ([place] Organization [facility] Address [address] [place] [address] Care Team Providers Care Cognos Lead Name Role Phone HUSEYIN LUIS FERNANDO Primary [...] PART B Jun 20, 2014 PART B [id number] EAMON OLIVIA ERT PATIENT MEDICARE (WNR) MEDICARE (M) PART A Jun 20, 2014 PART A [id number] EAMON OLIVIA ERT PATIENT MEDICARE (WNR) MEDICARE (M) PART A Jun 20, 2014 PART A [id number] EAMON OLIVIA ERT PATIENT MEDICARE (WNR) MEDICARE (M) PART B Jun 20, 2014 PART B [id number] [phone] EAMON OLIVIA ERT PATIENT OPTUM RX PRESCRIPT ION RX Jun 20, 2023 THPRX [id number] [phone] EAMON OLIVIA ERT PATIENT [facility]UM RX PRESCRIPT ION RX Jun 20, 2022 THPRX [id number] DAVON OLIVIA JR PATIENT [facility] RX PRESCRIPT ION RX Jun 20, 2022 THPRX [id number] EAMON OLIVIA ERT PATIENT [facility] Jun 20, 2017 [id number] EAMON OLIVIA ERT PATIENT [facility] Jun 20, 2017 [id number] DAVON OLIVIA JR PATIENT [facility] Jun 20, 2017 [facility] [id number] OL[address] E[address] PATIENT [facility] E Jun 20, 2017 [id number] [phone] DAVON OLIVIA JR PATIENT [facility] Jun 20, 2023 [id number] [phone] EAMON OLIVIA PATIENT Selected Encounter This section includes the information on record at [place] for the Encounter. Date/Time Encounter Type Encounter Description Reason Provider Source Mar 15, 2024 10:00 AM ORAL FUNCTION THERAPY SPEECH-LANGUAGE PATHOLOGY ICD-10-CM G20.C Parkinsonism, unspecified AMARIS WESTFALL [place] Encounter Template Text not used by [place] Assessments - Encounter Diagnoses This section includes the primary and secondary diagnoses documented for the Encounter. Date/Time Primary/Secondary Diagnosis Diagnosis Name Provider Source Mar 15, 2024 06:36 PM PRIMARY Parkinsonism, unspecified AMARIS WESTFALL [facility] Plan of Treatment: Future Appointments (+ [...] - MEDICINE [facility] [place] [facility] Mar 22, 2024 01:00 PM AMBULATORY - NONE [facility] [place] [facility] Mar 27, 2024 02:30 PM AMBULATORY - MEDICINE [facility] [place] [facility] Mar 29, 2024 11:00 AM AMBULATORY - REHAB MEDICIN E [facility] [place] [facility] Apr 12, 2024 11:00 AM AMBULATORY - REHAB MEDICIN E [facility] [place] [facility] Apr 26, 2024 09:00 AM AMBULATORY - MEDICINE [facility] [place] [facility] Apr 26, 2024 11:00 AM AMBULATORY - REHAB MEDICIN E [facility] [place] [facility] Jul 10, 2024 12:30 PM AMBULATORY - REHAB MEDICIN E [facility] [place] [facility] Jul 17, 2024 02:00 PM AMBULATORY - REHAB MEDICIN E [facility] [place] [facility] Lab Results: +/- 30 days of the encounter This section includes the Chemistry and Hematology Lab Results on record with [place] for the patient. Radiology Reports and Pathology Reports are provided separately, in subsequent sections. Lab Results This section contains the Chemistry/Hematology Results that were resulted 30 days before or 30 daysafter the date of the Encounter. Date/Time Source Result Type Result - Unit Interpretation Reference Range Specimen Type Comment Mar 28, 2024 12:30 PM [facility] LIVER FUNCTION SERUM Specimen Type: SERUM No comment entered. Ordering Provider: LUIS FERNANDO FONTANEZ Report Released Date/Time: Dec 28, 2023 07:18 AM Reporting Lab: [facility] [address] [facility] [address] Performing Lab: [facility] [address] [facility] [address] PROTEIN,TOTAL 6.0 g/dL 6.0-8.3 ALBUMIN 3.2 g/dL L 3.5-5.0 ALKALINE PHOSPHATASE 72 U/L 40-150 AST 21 U/L 5-34 ALT <6 U/L BILIRUBIN, TOTAL 0.4 mg/dL 0.2-1.2 Mar 28, 2024 12:30 PM [facility] BASIC METABOLIC PANEL (non-fasting) SERUM Spe cimen Type: SERUM No comment entered. Ordering Provider: LUIS FERNANDO FONTANEZ Report Released Date/Time: Dec 28, 2023 07:18 AM Reporting Lab: [address] [address] Performing Lab: [address] [address] UREA NITROGEN 21 mg/dL 7-25 GLUCOSE 98 mg/dL 65-100 SODIUM 139 mmol/L 135-145 POTASSIUM 3.4 mmol/L L 3.5-5.0 CHLORIDE 102 mmol/L 100-110 CO2 27 meq/L 20-30 CREATININE, Serum 0.88 mg/dL 0.50-1.40 eGFR(CKD-EPI 2020) 90 mL/min >60 Mar 28, 2024 12:30 PM [facility] CBC AND DIFF (AUTO) BLOOD Specimen Type: BLOO D No comment entered. Ordering Provider: LUIS FERNANDO FONTANEZ Report Released Date/Time: Dec 28, 2023 07:18 AM Reporting Lab: [address] [address] Performing Lab: [address] [address] WBC 9.03 10*3/uL 4.50-11.00 RBC 4.16 10*6/uL [...] Jan 20, 2021 ADVANCE DIRECTIVE BENTON ARAUZ CNTL TRN [facility] Encounter Notes: All associated encounter [...] Resources Only: E911 (Emergency Call Relay Center): [phone] National Veterans Crisis Line - 988 then press #1. CHITRA Suicide Coordinator [phone], Ext. [phone]; Back-up Ext. [phone] [facility] CHITRA [place] [phone] Introduction: Visit is being conducted by [employer]. [place] identified with 2 identifiers: [X] Full Name [X] Date of [ ] VA ID Card Emergency Plan: confirmed and/or provided the following information in case of emergency or technology failure. PATIENT PHONE - PHONE NUMBER [CELLULAR] - NONE FOUND Is patient phone number correct, if not, enter below: 's phone number: DAVON OLIVIA JR [address], [place], [address] 's present location and address for appointment: as listed 's emergency contact name and phone number: as listed [place] reported that location is private and safe: Yes Informed Consent: [place] informed of the risks and benefits of Telehealth video care. [place] has the right to refuse video services. If refuses video visit, a [id number] visit will be scheduled. [place] verbalized consent for this video visit: Yes provided consent for any other persons present for visit: Yes If yes, who and relationship to patient: Secure visit: Visit was locked for security and privacy:Yes S: [place]. is seen today for a treatment of dysphagia via VVC. Active problems - Computerized Problem List is the source for the followin. Obstructive sleep apnea 2. Nephrolithiasis 3. Excessive salivation 4. HTN - Hypertension ([facility] [id number]) 5. Constipation 6. Under care of multiple [...] Fibrillation ([facility] [id number]) 32. Parkinson's disease 33. Kidney Stone ([facility] [id number]) Progress notes reviewed. Encounter time - 60 minutes O:The following was addressed during this encounter: 's spouse reports he has surgery scheduled 03/26/24, the MBSS is scheduled for 05/24/24 but they are trying to move it sooner, possibly when he is in the hospital for surgery. //EDUCATION - 1. . was educated on the importance of eating behavior to a safe swallow and encouraged to slow rate, take smaller sips/bites, chew solids well, and take pills in puree. A: with Parkinson's Disease with recent concerns re: swallowing. Dysphagia is a common symptom of PD. P: Consult placed for EMST 75Lite RTC 03/29/24 @ 1100 via VVC MBSS pending to objectively assess the oral and pharyngeal stage of the swallow. /sharron/ AMARIS WESTFALL M.S.,CCC-BOARD CERTIFIED ARTS THERAPIST SPEECH-LANGUAGE PATHOLOGIST Signed: 03/20/2024 17:33 Receipt Acknowledged By: 03/21/2024 08:18 /sharron/ EBONY ZIMMERMAN ADVANCED MEDICAID PLAN COMPLIANCE DIRECTOR [facility]
--- OUTSIDE RECORDS SUMMARY | 2024-10-29 13:41 | XMS_ITS | Encounter Summary ---
Author Organization [facility] [place] [facility], Address [address] [place] [address] Phone Care Team Providers Care Corporate Staff Accountant Name Role Phone Shirin Mcwilliams MD Primary Care Prov ider Encounter Details Date Type Department Care Team (Late st Contact Info) Description 03/01/2023 Documentation Only [facility] [address] [place] [address] Emil Davis MD [address] [place] [address] [place] [address] Social History Tobacco Use Types [...] Visit [facility] [address] [address] [place] [address] Emil Davis MD [address] [place] [address] [place] [address] documented as of this encounter Visit Diagnoses Not on filedocumented in this encounter Care Teams Corporate Staff Accountant Relationship Specialty Start Date End Date Shirin Mcwilliams MD [address] [place] [phone] PCP - General 06/30/20 documented as of this encounter
--- OUTSIDE RECORDS SUMMARY | 2024-10-29 13:41 | XMS_ITS | Encounter Summary ---
Author Organization [facility] Address [address] [place] [address] Phone Care Team Providers Care Tea Blender Name Role Phone Shirin Mcwilliams MD Primary Care Prov ider Encounter Details Date Type Department Care Team (Late st Contact Info) Description 09/06/2023 Documentation Only [facility] [address] [place] [address] Frances Guevara [address] [place] [phone] Social History Tobacco Use Types Packs/Day [...] Visit [facility] [address] Sienna ACOSTA [address] [place] [phone] Emil Davis MD [address] [place] [address] [place] [address] documented as of this encounter Visit Diagnoses Not on filedocumented in this encounter Care Teams Tea Blender Relationship Specialty Start Date End Date Shirin Mcwilliams MD [address] [place] [phone] PCP - General 06/30/20 documented as of this encounter
--- OUTSIDE RECORDS SUMMARY | 2024-10-29 13:41 | XMS_ITS | Encounter Summary ---
Author Organization [facility] Address [address] [place] [address] Phone Care Team Providers Care Platform Supervisor Name Role Phone Shirin Mcwilliams MD Primary Care Prov ider Encounter Details Date Type Department Care Team (Late st Contact Info) Description 03/18/2023 Documentation Only [facility] [address] [place] [address] Ayiana Esteves [address] [place] [phone] Social History Tobacco Use Types Packs/Day [...] Visit [facility] Mikael DudleyYoly Dr Sienna ACOSTA [address] [place] [phone] Emil Davis MD [address] [place] [address] [place] [address] documented as of this encounter Visit Diagnoses Not on filedocumented in this encounter Care Teams Platform Supervisor Relationship Specialty Start Date End Date Shirin Mcwilliams MD [address] [place] [phone] PCP - General 06/30/20 documented as of this encounter
--- OUTSIDE RECORDS SUMMARY | 2024-10-29 13:41 | XMS_ITS | Encounter Summary ---
Author Name [facility] [place] [facility] [place] Organization [facility] [place] Address [address] [place] [address] Care Team Providers Care Finish Carpenter Name Role Phone LUIS FERNANDO FONTANEZ Primary [...] PART B Jun 20, 2014 PART B [id number] [phone] EAMON OLIVIA ERT PATIENT MEDICARE (WNR) MEDICARE (M) PART A Jun 20, 2014 PART A [id number] EAMON OLIVIA ERT PATIENT MEDICARE (WNR) MEDICARE (M) PART A Jun 20, 2014 PART A [id number] EAMON OLIVIA ERT PATIENT MEDICARE (WNR) MEDICARE (M) PART B Jun 20, 2014 PART B [id number] EAMON OLIVIA ERT PATIENT OPTUM RX PRESCRIPT ION RX Jun 20, 2023 THPRX [id number] [phone] EAMON OLIVIA ERT PATIENT OPTUM RX PRESCRIPT ION RX Jun 20, 2022 THPRX [id number] [phone] DAVON OLIVIA JR PATIENT OPTUM RX PRESCRIPT ION RX Jun 20, 2022 THPRX [id number] EAMON OLIVIA ERT PATIENT [facility] Jun 20, 2017 [id number] [phone] EAMON OLIVIA ERT PATIENT [facility] TON PEÑA E Jun 20, 2017 [id number] DAVON OLIVIA JR PATIENT [facility] TON PEÑA E Jun 20, 2017 [id number] DAVON OLIVIA JR PATIENT [facility] USP Jun 20, 2017 [id number] [phone] EAMON OLIVIA ERT PATIENT [facility] Jun 20, 2023 [id number] [phone] EAMON OLIVIA ERT PATIENT Selected Encounter This section includes the information on record at [place] for the Encounter. 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 Date/Time Primary/Secondary Diagnosis Diagnosis Name Provider Source Apr 04, 2024 02:39 PM PRIMARY Other senior care (current) drug therapy DA GEORGE [facility] Plan of Treatment: [...] REHAB MEDICIN E [facility] [place] [facility] Apr 26, 2024 09:00 AM [facility] Apr 26, 2024 11:00 AM AMBULATORY - REHAB MEDICIN E [facility] [place] [facility] Jul 10, 2024 12:30 PM AMBULATORY - REHAB MEDICIN E [facility] [place] [facility] Jul 17, 2024 02:00 PM [facility] Lab Results: +/- 30 days [...] Type Comment Mar 28, 2024 12:30 PM [facility] LIVER FUNCTION SERUM Specimen Type: SERUM No comment entered. Ordering Provider: LUIS FERNANDO FONTANEZ Report Released Date/Time: Dec 28, 2023 07:18 AM Reporting Lab: [facility] [address] [facility] [address] Performing Lab: [facility] [address] [facility] [address] PROTEIN,TOTAL 6.0 g/dL 6.0-8.3 ALBUMIN 3.2 g/dL L 3.5-5.0 ALKALINE PHOSPHATASE 72 U/L 40-150 AST 21 U/L 5-34 ALT <6 U/L BILIRUBIN, TOTAL 0.4 mg/dL 0.2-1.2 Mar 28, 2024 12:30 PM [facility] BASIC METABOLIC PANEL (non-fasting) SERUM Spe cimen Type: SERUM No comment entered. Ordering Provider: LUIS FERNANDO FONTANEZ A Report Released Date/Time: Dec 28, 2023 07:18 AM Reporting Lab: [facility] [address] [facility] [address] Performing Lab: [address] [address] UREA NITROGEN 21 mg/dL 7-25 GLUCOSE 98 mg/dL 65-100 SODIUM 139 mmol/L 135-145 POTASSIUM 3.4 mmol/L L 3.5-5.0 CHLORIDE 102 mmol/L 100-110 CO2 27 meq/L 20-30 CREATININE, Serum 0.88 mg/dL 0.50-1.40 eGFR(CKD-EPI 2020) 90 mL/min >60 Mar 28, 2024 12:30 PM [facility] CBC AND DIFF (AUTO) BLOOD Specimen Type: BLOO D No comment entered. Ordering Provider: LUIS FERNANDO FONTANEZ A Report Released Date/Time: Dec 28, 2023 07:18 AM Reporting Lab: [facility] [address] [facility] [address] Performing Lab: [address] [address] WBC 9.03 10*3/uL 4.50-11.00 RBC 4.16 10*6/uL [...] 2023 12:24 PM VA-TOBACCO NEVER USED [facility] Tobacco Use History This section includes a history of the smoking, or tobacco-related health factors, that were collected on or before the date of the Encounter. The data comes from the [place] facility where the Encounter took place. Date/Time Smoking Status/Tobacco Use Comment F acility Jan 15, 2021 11:00 AM VA-TOBACCO NEVER USED [facility] Advance Directives: All historical and [...] Jan 20, 2021 ADVANCE DIRECTIVE BENTON ARAUZ [facility] Encounter Notes: All associated encounter notes [...] FERNANDO FONTANEZ A HTN - Hypertension (SCT [id number]) I 01/13/2024 LUIS FERNANDO FONTANEZ A Constipation [...] disease K21 01/19/2023October,VLAD P AF- Atrial Fibrillation ([facility] [id number] 10/05/2023 HUSEYINLUIS FERNANDO A Parkinson's disease G20.A1 02/25/2024 HUSEYINLENLUIS FERNANDO A Kidney Stone ([facility] [id number]) N20.0 01/15/2021 VIJAY CHA Alcohol (-) Tobacco [...] TIMES A DAY 14) INCONT [id number] USE 1 LINER ACTIVE TOPICALLY AT BEDTIME [...] ACTIVE (S) ONCE DAILY 24) UNDERPAD,BED ULTRASORB [id number] M#1063 USE 2 UNDERPADS ACTIVE TOPICALLY AT BEDTIME 25) URINARY DRAINAGE BAG BARD #[id number] USE 1 URINARY ACTIVE DRAINAGE BAG EVERY 7 DAYS Pending Outpatient Medications Status 1) DRESSING,MEPILEX BORDR 6.3X7.9IN #[id number] APPLY 1 PENDING DRESSING DIRECTED 3XWEEK NEEDED [...] 90 days - No infections noted - [facility] RN 01/23/24: pt had a choking episode while swallowing pills last week requiring Heimlich maneuver by spouse. [facility] pharmacist provided list of crushable/alternative oral dosage forms for current med list as requested. Swallow eval consult entered - [facility] post fall note 01/23/24: Where: Living room. How: spouse reports [place] bent over and lost his balance - no pharmacy med review requested - [facility] post fall note 02/01/24: Where: getting out of wheelchair. How: lost balance - no pharmacy med review requested - [facility] post fall note 02/28/24: Where: living room. How: fell over - no pharmacy med review requested - [facility] post fall note 03/08/24: Where: In [facility]. How: Patient walking with walker, knees buckled - no pharmacy med review requested - [facility] hospital notification 03/16/24: pt was hospitalized at [facility] from 03/15/24-03/16/24 for fever of 100.0 and elevated BP of 170/93. Pt found to have hematuria. Awaiting urine cx results - [facility] RN phone 03/22/24: pt is afebrile and normotensive s/p hospital d/c - [facility] RN 03/28/24: pt requesting MVI/minerals in liquid formulation - order updated by [facility] BEATER OPERATOR. COVID-19 and flu vaccines administered INTERVENTIONS/SUGGESTIONS: 1. [...] orthostatic hypotension. Also monitor for signs of [employer] depression and gait disturbances during ambulation. Could [...] incontinence and severity biannually. > Exercise/Physical Activity [id number]-[id number] aerobic activity 3-5x per week. Weight or [...] Spent: 45 min /sharron/ Paul StoreyD Clinical Pulmonary Function Technologist Signed: 04/04/2024 14:53 Receipt Acknowledged By: 04/06/2024 11:02 /es/ JENNIFER SEGURA SECURITIES SUPERVISOR [facility] NEIGHBORHOOD COORDINATOR 04/05/2024 15:53 /es/ LUIS FERNANDO DONNELLYC [facility] NURSE PRACTITIONER CANDICE GEORGE [facility]
--- OUTSIDE RECORDS SUMMARY | 2024-10-29 13:41 | XMS_ITS | Encounter Summary ---
Author Organization [facility], Address [address] [place] [address] Phone Care Team Providers Care Garbage Truck Helper Name Role Phone Shirin Mcwilliams MD Primary Care Prov ider Encounter Details Date Type Department Care Team (Late st Contact Info) Description 03/22/2024 Documentation Only [facility] [address] [place] [address] Frances Guevara [address] [place] [phone] Social History Tobacco Use Types Packs/Day Years [...] Visit [facility] [address] [address] [place] [address] Emil Davis MD [address] [facility] [place] [address] documented as of this encounter Visit Diagnoses Not on filedocumented in this encounter Care Teams Garbage Truck Helper Relationship Specialty Start Date End Date Shirin Mcwilliams MD [address] [place] [phone] PCP - General 06/30/20 documented as of this encounter
--- OUTSIDE RECORDS SUMMARY | 2024-10-29 13:41 | XMS_ITS | Encounter Summary ---
Author Name [facility] [place] Organization [facility] Address [address] [place] [address] Care Team Providers Care Custom Grinder Name Role Phone HUSEYIN LUIS FERNANDO Primary [...] PART B Jun 20, 2014 PART B [id number] EAMON OLIVIA ERT PATIENT MEDICARE (WNR) MEDICARE (M) PART A Jun 20, 2014 PART A [id number] EAMON OLIVIA ERT PATIENT MEDICARE (WNR) MEDICARE (M) PART A Jun 20, 2014 PART A [id number] EAMON OLIVIA ERT PATIENT MEDICARE (WNR) MEDICARE (M) PART B Jun 20, 2014 PART B [id number] EAMON OLIVIA ERT PATIENT OPTUM RX PRESCRIPT ION RX Jun 20, 2023 THPRX [id number] EAMON OLIVIA ERT PATIENT OPTUM RX PRESCRIPT ION RX Jun 20, 2022 THPRX [id number] DAVON OLIVIA JR PATIENT OPTUM RX PRESCRIPT ION RX Jun 20, 2022 THPRX [id number] EAMON OLIVIA ERT PATIENT [facility] Jun 20, 2017 [id number] EAMON OLIVIA ERT PATIENT [facility] TON PEÑA E Jun 20, 2017 [id number] [phone] DAVON OLIVIA JR PATIENT [facility] TON PEÑA E Jun 20, 2017 [id number] DAVON OLIVIA JR PATIENT [facility] Jun 20, 2017 [facility] [id number] EAMON OLIVIA ERT PATIENT [facility] Jun 20, 2023 [id number] EAMON OLIVIA ERT PATIENT Selected Encounter This section includes the information on record at CT for the Encounter. Date/Time Encounter Type Encounter Description Reason Provider Source Mar 29, 2024 11:00 AM SPEECH/HEARING THERAPY SPEECH-LANGUAGE PATHOLOGY ICD-10-CM G20.C Parkinsonism, unspecified AMARIS WESTFALL Encounter Template Text not used by CT Assessments - Encounter Diagnoses This section includes the primary and secondary diagnoses documented for the Encounter. Date/Time Primary/Secondary Diagnosis Diagnosis Name Provider Source Apr 04, 2024 03:57 PM PRIMARY Parkinsonism, unspecified CARMELO WESTFALL [facility] Apr 04, 2024 03:57 PM SECONDARY Dysphagia, oropharyngeal phase CARMELO WESTFALL [facility] Plan of Treatment: Future Appointments [...] E [facility] [place] [facility] Apr 26, 2024 09:00 AM [facility] Apr 26, 2024 11:00 AM AMBULATORY - REHAB MEDICIN E [facility] [place] [facility] Jul 10, 2024 12:30 PM AMBULATORY - REHAB MEDICIN E [facility] [place] [facility] Jul 17, 2024 02:00 PM AMBULATORY - [facility] Lab Results: +/- 30 days of the encounter This section includes the Chemistry and Hematology Lab Results on record with CT for the patient. Radiology Reports and Pathology Reports are provided separately, in subsequent sections. Lab Results This section contains the Chemistry/Hematology Results that were resulted 30 days before or 30 daysafter the date of the Encounter. Date/Time Source Result Type Result - Unit Interpretation Reference Range Specimen Type Comment Mar 28, 2024 12:30 PM [facility] LIVER FUNCTION SERUM Specimen Type: SERUM No comment entered. Ordering Provider: LUIS FERNANDO FONTANEZ Report Released Date/Time: Dec 28, 2023 07:18 AM Reporting Lab: [address] [address] Performing Lab: [address] [address] PROTEIN,TOTAL 6.0 g/dL 6.0-8.3 ALBUMIN 3.2 g/dL L 3.5-5.0 ALKALINE PHOSPHATASE 72 U/L 40-150 AST 21 U/L 5-34 ALT <6 U/L BILIRUBIN, TOTAL 0.4 mg/dL 0.2-1.2 Mar 28, 2024 12:30 PM [facility] BASIC METABOLIC PANEL (non-fasting) SERUM Spe cimen Type: SERUM No comment entered. Ordering Provider: LUIS FERNANDO FONTANEZ A Report Released Date/Time: Dec 28, 2023 07:18 AM Reporting Lab: [facility] [address] [facility] [address] Performing Lab: [facility] [address] [facility] [address] UREA NITROGEN 21 mg/dL 7-25 GLUCOSE 98 mg/dL 65-100 SODIUM 139 mmol/L 135-145 POTASSIUM 3.4 mmol/L L 3.5-5.0 CHLORIDE 102 mmol/L 100-110 CO2 27 meq/L 20-30 CREATININE, Serum 0.88 mg/dL 0.50-1.40 eGFR(CKD-EPI 2020) 90 mL/min >60 Mar 28, 2024 12:30 PM [facility] CBC AND DIFF (AUTO) BLOOD Specimen Type: MICHAELA Andrew No comment entered. Ordering Provider: LUIS FERNANDO FONTANEZ Report Released Date/Time: Dec 28, 2023 07:18 AM Reporting Lab: [facility] [address] [facility] [address] Performing Lab: [facility] [address] [facility] [address] WBC 9.03 10*3/uL 4.50-11.00 RBC 4.16 10*6/uL [...] 20, 2021 ADVANCE DIRECTIVE BENTON ARAUZ [facility] Encounter Notes: All associated encounter notes This section contains the clinical notes associated to the Encounter. Date/Time Encounter Note(s) Provider Source Mar 29, 2024 11:55 AM TELEHEALTH NOTE: LOCAL TITLE: VA VIDEO CONNECT SPEECH STANDARD TITLE: TELEHEALTH NOTE DATE OF NOTE: MAR 29, 2024@11:55 ENTRY DATE: APR 04, 2024@15:55:46 AUTHOR: AMARIS WESTFALL COSIGNER: URGENCY: STATUS: COMPLETED VA Video Connect (VVC) Standard Documentation VVC Clinician Resources Only: E911 (Emergency Call Relay Center): [phone] National Veterans Crisis Line - 988 then press #1. [facility] Suicide Coordinator [phone], Ext. [phone]; Back-up Ext. [phone] Police, [place] [phone] Introduction: Visit is being conducted by CT Outski Connect. [place] identified with 2 identifiers: [X] Full Name [X] Date of [ ] VA ID Card Emergency Plan: [place] confirmed and/or provided the following information in case of emergency or technology failure. PATIENT PHONE - PHONE NUMBER [CELLULAR] - Is patient phone number correct, if not, enter below: 's phone number: DAVON OLIVIA JR [address] [place] [address], [phone] [place]'s present location and address for appointment: as listed 's emergency contact name and phone number: as listed [place] reported that location is private and safe: Yes Informed Consent: informed of the risks and benefits of Telehealth video care. has the right to refuse video services. If refuses video visit, a owzb-dj-bzeg visit will be scheduled. verbalized consent for this video visit: Yes provided consent for any other persons present for visit: N/A If yes, who and relationship to patient: Secure visit: Visit was locked for security and privacy:Yes S: [place]. is seen today for a treatment of dysphagia via VVC. Active problems - Computerized Problem List is the source for the followin. Obstructive sleep apnea 2. Nephrolithiasis 3. Excessive salivation 4. HTN - Hypertension ([facility] [id number]) 5. Constipation 6. Under care of multiple [...] Gastroesophageal reflux disease 31. AF- Atrial Fibrillation ([facility] [id number]) 32. Parkinson's disease 33. Kidney Stone ([facility] [id number]) Progress notes reviewed. Encounter time - 60 minutes O:The following was addressed during this encounter: Unable to move MBSS sooner, scheduled for MBSS in May. [place] has received EMST device and was instructed in setting the optimal pressure and completing exercises. In addition, he completed exercises to improve vocal loudness and clarity of speech. //EDUCATION - 1. . was educated on the importance of eating behavior to a safe swallow and encouraged to slow rate, take smaller sips/bites, chew solids well, and take pills in puree. A: [place] with Parkinson's Disease with recent concerns re: swallowing. Dysphagia is a common symptom of PD. P: C 04/12/24 @ 1100 via C /sharron/ AMARIS WESTFALL M.S.,CCC-HISTORIC CLOTHING AND COSTUME MAKER SPEECH-LANGUAGE PATHOLOGIST Signed: 04/05/2024 08:51 Receipt Acknowledged By: 04/05/2024 09:44 /sharron/ EBONY ZIMMERMAN ADVANCED CAREER ORIENTATION TEACHER [facility]
--- OUTSIDE RECORDS SUMMARY | 2024-10-29 13:41 | XMS_ITS ---
Author Name [facility] [place] [facility] Address [address] [place] [id number] Care Team Providers Care Maintenance Planner Name Role Phone HUSEYIN LUIS FERNANDO Primary Care Provider Unavailabl e MEGAN SLAUGHTER Unavailable Unavailable CHAPALEXY, AMANDO Unavailable Unavailable RARAMIN KEYES Unavailable Unavailable FEISHILA, [...] PART B Jun 20, 2014 PART B [id number] EAMON OLIVIA ERT PATIENT MEDICARE (WNR) MEDICARE (M) PART A Jun 20, 2014 PART A [id number] EAMON OLIVIA ERT PATIENT MEDICARE (WNR) MEDICARE (M) PART A Jun 20, 2014 PART A [id number] EAMON OLIVIA ERT PATIENT MEDICARE (WNR) MEDICARE (M) PART B Jun 20, 2014 PART B [id number] EAMON OLIVIA ERT PATIENT OPTUM RX PRESCRIPT ION RX Jun 20, 2023 THPRX [id number] EAMON OLIVIA ERT PATIENT [facility] RX PRESCRIPT ION RX Jun 20, 2022 THPRX [id number] DAVON OLIVIA JR PATIENT [facility] RX PRESCRIPT ION RX Jun 20, 2022 THPRX [id number] EAMON OLIVIA ERT PATIENT [facility] Jun 20, 2017 [id number] [phone] EAMON OLIVIA ERT PATIENT [facility] E Jun 20, 2017 [id number] DAVON OLIVIA JR PATIENT [facility] Jun 20, 2017 [facility] [id number] EAMON OLIVIA ERT PATIENT [facility] T[facility] E Jun 20, 2017 [id number] [phone] DAVON OLIVIA JR PATIENT [facility] Jun 20, 2023 [id number] [phone] EAMON OLIVIA PATIENT Selected Encounter This section includes the information on record at [place] for the Encounter. Date/Time Encounter Type Encounter Description Reason Provider Source Jul 10, 2024 12:30 PM [employer]ER[employer] SPEECH-LANGUAGE PATHOLOGY ICD-10-CM R13.10 Dysphagia, unspecified AMARIS WESTFALL [facility] Encounter Template Text not used by [place] Assessments - Encounter Diagnoses This section includes the primary and secondary diagnoses documented for the Encounter. Date/Time Primary/Secondary Diagnosis Diagnosis Name Provider Source Jul 10, 2024 06:44 PM PRIMARY Dysphagia, unspecified AMARIS WESTFALL [facility] [place] [facility] Jul 10, 2024 06:44 PM SECONDARY Dysph[facility] [place] [facility] Plan of Treatment: Future Appointments [...] Appointment Type Appointme nt Facility Name Jul 17, 2024 02:00 PM AMBULAT[facility] - [facility] Lab Results: +/- 30 days of [...] Type Comment Jul 03, 2024 01:30 PM [facility] FOLATE (WROX) SERUM Specimen Type: SERUM No comment entered. Ordering Provider: LUIS FERNANDO FONTANEZ Report Released Date/Time: May 25, 2024 08:50 AM Reporting Lab: [facility]ITAL[facility] [address] [address] Performing Lab: [facility] [address] [facility] [address] FOLATE (WROX) 8.8 ng/mL >5.2 Jul 03, 2024 01:30 PM [facility] PTH INTACT SERUM Specimen Type: SERUM No comment entered. Ordering Provider: LUIS FERNANDO FONTANEZ Report Released Date/Time: Jun 18, 2024 08:46 AM Reporting Lab: [facility] [address] [address] Performing Lab: [facility] [address] [address] PTH INTACT 34.0 pg/mL 8.7-77.1 Jul 03, 2024 01:30 PM [facility] BASIC METABOLIC PANEL (non-fasting) SERUM Spe cimen Type: SERUM No comment entered. Ordering Provider: LUIS FERNANDO FONTANEZ Report Released Date/Time: May 25, 2024 08:50 AM Reporting Lab: [facility] [address] [address] Performing Lab: [address] [address] UREA NITROGEN 15 mg/dL 7-25 GLUCOSE 80 mg/dL 65-100 SODIUM 138 mmol/L 135-145 POTASSIUM 3.5 mmol/L 3.5-5.0 CHLORIDE 101 mmol/L 100-110 CO2 28 meq/L 20-30 CREATININE, Serum 0.88 mg/dL 0.50-1.40 eGFR(CKD-EPI 2020) 90 mL/min >60 Jul 03, 2024 01:30 PM [facility] MAGNESIUM SERUM Specimen Type: SERUM No comment entered. Ordering Provider: LUIS FERNANDO FONTANEZ Report Released Date/Time: May 25, 2024 08:50 AM Reporting Lab: [address] [address] Performing Lab: [address] [address] MAGNESIUM 1.9 mg/dL 1.6-2.6 Jul 03, 2024 01:30 PM [facility] LIVER FUNCTION SERUM Specimen Type: SERUM No comment entered. Ordering Provider: LUIS FERNANDO FONTANEZ Report Released Date/Time: May 25, 2024 08:50 AM Reporting Lab: [address] [address] Performing Lab: [address] [address] PROTEIN,TOTAL 7.0 g/dL 6.0-8.3 ALBUMIN 3.5 g/dL 3.5-5.0 ALKALINE PHOSPHATASE 93 U/L 40-150 AST 19 U/L 5-34 ALT 7 U/L BILIRUBIN, TOTAL 0.3 mg/dL 0.2-1.2 Jul 03, 2024 01:30 PM [facility] VITAMIN B12 SERUM Specimen Type: SERUM No comment entered. Ordering Provider: LUIS FERNANDO FONTANEZ Report Released Date/Time: May 25, 2024 08:50 AM Reporting Lab: [address] [address] Performing Lab: [facility] TRN [facility]ITALUSETS [facility] [address] [address] VITAMIN B12 435 pg/mL 200-900 Jul 03, 2024 01:30 PM [facility]ITAL[facility] VITAMIN D (25-OH) SERUM Specimen Type: SERUM No comment entered. Ordering Provider: LUIS FERNANDO FONTANEZ Report Released Date/Time: May 25, 2024 08:50 AM Reporting Lab: [place] CNTRL TRN [facility]ITALUSETS [facility] [address] [address] Performing Lab: [facility]ITALUSETS [address] [address] VITAMIN D (25-OH) 37 ng/mL 20-50 Jul 03, 2024 01:30 PM [facility] IRON & TIBC PANEL SERUM Specimen Type: SERUM No comment entered. Ordering Provider: LUIS FERNANDO FONTANEZ Report Released Date/Time: May 25, 2024 08:50 AM Reporting Lab: [facility]ITAL[facility]ETS [address] [address] Performing Lab: [facility]ITAL[facility] [address] [address] TIBC 351 ug/dL 204-475 IRON 111 ug/dL 40-160 Transferrin Saturation 31.6 20.0-50.0 Transferrin (TRF) 266 mg/dL 200-360 Jul 03, 2024 01:30 PM [facility] FERRITIN SERUM Specimen Type: SERUM No comment entered. Ordering Provider: LUIS FERNANDO FONTANEZ Report Released Date/Time: May 25, 2024 08:50 AM Reporting Lab: [facility]ITAL[facility]ETS [address] [address] Performing Lab: [facility] [address] [address] FERRITIN 28 ng/mL 20-300 Jul 03, 2024 01:30 PM [facility]ITAL[facility] RETICULOCYTES BLOOD Specimen Type: BLOOD No comment entered. Ordering Provider: LUIS FERNANDO FONTANEZ Report Released Date/Time: May 25, 2024 08:50 AM Reporting Lab: [facility]ITAL[facility] [address] [address] Performing Lab: [facility] TRN [facility]ITALUSETS [facility] [address] [address] RETIC % 0.9 0.6-2.0 RETIC, ABS 44.5 10*3/uL 30.0-90.0 RET-HE 31.3 pg 27.9-42.0 Jul 03, 2024 01:30 PM [facility] TSH SERUM Specimen Type: SERUM No comment entered. Ordering Provider: LUIS FERNANDO FONTANEZ Report Released Date/Time: May 25, 2024 08:50 AM Reporting Lab: [facility]ITAL[facility] [address] [address] Performing Lab: [facility]N [facility]ITALUSETS [address] [address] TSH 2.21 u[IU]/mL 0.35-5.00 Jul 03, 2024 01:30 PM [facility]N [facility]USE[facility] PO4 SERUM Specimen Type: SERUM No comment entered. Ordering Provider: LUIS FERNANDO FONTANEZ Report Released Date/Time: May 25, 2024 10:21 AM Reporting Lab: [facility]ITAL[facility]ETS [facility] [address] [address] Performing Lab: [facility]ITAL[facility] [address] [address] PO4 2.8 mg/dL 2.5-5.0 Jul 03, 2024 01:30 PM [facility] URIC ACID SERUM Specimen Type: SERUM No comment entered. Ordering Provider: LUIS FERNANDO FONTANEZ Report Released Date/Time: Jun 18, 2024 08:46 AM Reporting Lab: [facility]RMOBILE INFIR[facility]ENTERTRN [facility]ITALUSETS [facility] [address] [address] Performing Lab: [facility]ITALUSETS [address] [address] URIC ACID 5.8 mg/dL 3.5-7.2 Jul 03, 2024 01:30 PM [facility] MAGNESIUM SERUM Specimen Type: SERUM No comment entered. Ordering Provider: LUIS FERNANDO FONTANEZ Report Released Date/Time: Jun 18, 2024 08:46 AM Reporting Lab: [facility] [address] [address] Performing Lab: [facility] [address] [address] MAGNESIUM 1.8 mg/dL 1.6-2.6 Jul 03, 2024 01:30 PM [facility] CBC AND DIFF (AUTO) BLOOD Specimen Type: BLOO D No comment entered. Ordering Provider: LUIS FERNANDO FONTANEZ Report Released Date/Time: May 25, 2024 08:50 AM Reporting Lab: [facility] [address] [address] Performing Lab: [address] [address] WBC 8.62 10*3/uL 4.50-11.00 RBC 4.84 10*6/uL [...] 09:30 AM VA-TOBACCO NEVER U SED CIGARETTES [facility] Tobacco Use History This section includes a history of the smoking, or tobacco-related health factors, that were collected on or before the date of the Encounter. The data comes from the [place] facility where the Encounter took place. Date/Time Smoking Status/Tobacco Use Comment F acility May 25, 2024 09:30 AM VA-TOBACCO NEVER U SED OTHER TYPE [place] [facility] [facility] Jan 19, 2023 12:24 PM VA-TOBACCO NEVER USED [place] [facility] [place] [facility] Jan 15, 2021 11:00 AM VA-TOBACCO NEVER USED [place] [facility] Advance Directives: All historical and [...] 2021 ADVANCE DIRECTIVE BENTON ARAUZ [facility] Encounter Notes: All associated encounter notes This section contains the clinical notes associated to the Encounter. Date/Time Encounter Note(s) Provider Source Jul 10, 2024 12:36 PM SPEECH PATHOLOGY C ONSULT: LOCAL TITLE: CONSULT REPORT/SPEECH/SWALLOWING STANDARD TITLE: SPEECH PATHOLOGY CONSULT DATE OF NOTE: JUL 10, 2024@12:36 ENTRY DATE: JUL 10, 2024@12:37:23 AUTHOR: AMARIS WESTFALL COSIGNER: LUIS FERNANDO FONTANEZ URGENCY: STATUS: COMPLETED S: [place] is seen today for a modified clinical evaluation of dysphagia (KRISTEN) via VVC. This assessment is subjective and cannot determine or r/o the presence of aspiration. is a 74-year-old male with a history of dysphagia and dysphonia. He is known to this science writer from previous speech, swallow, and voice therapy. He was hospitalized in mid June and had a G-tube placed. Active problems - Computerized Problem List is the source for the followin. Dysphagia 2. History of right hip replacement 3. Subdural hematoma 4. Obstructive sleep apnea 5. Nephrolithiasis 6. Excessive salivation 7. HTN - Hypertension (SCT [id number]) 8. Constipation 9. Under care of multiple providers 10. Exposure to potentially hazardous substance 11. Long-term current use of anticoagulant 12. Gingivitis 13. Squamous cell carcinoma of skin 14. Basal cell carcinoma of skin 15. Hypotension 16. Benign prostatic hyperplasia 17. Hematuria 18. Diverticular disease of colon 19. Internal hemorrhoids 20. REM sleep behavior disorder 21. Peripheral vascular disease 22. Migraine 23. Solitary nodule of lung 24. Dupuytren's contracture 25. Multiple renal cysts 26. Atrial flutter 27. History of deep vein thrombosis 28. Memory loss 29. ing 30. Urinary incontinence 31. Insomnia 32. Gastroesophageal reflux disease 33. AF- Atrial Fibrillation (SCT [id number]) 34. Parkinson's disease Progress notes reviewed. Encounter time -46 minutes O:The following was addressed during this encounter: //'S PERCEPTION OF THE PROBLEM - 's spouse removed G-tube on Tuesday. Spouse reports she is giving thin liquids & soft diet to , including grilled cheese sandwich and hamburger on a bun. [place] had an MBSS completed 05/24/24 with recommendations for minced and moist (IDDSI level 5) and thin liquids [place] has nearly inaudible voice at baseline, he is stimulable for adequately loud voice with verbal cues including take a deep breath and say it LOUD He has continued to use [id number] and with cues is able to complete 5 breaths into device at lowest setting. //EDUCATION - 1. [place]'s caregiver was educated on the importance safe swallow strategies, diet recommendations, and encouraged to continue to provide pills in puree. A: [place] with Parkinson's Disease with recent concerns re: swallowing and speech and voice. Dysphagia, dysphonia and dysarthria are common symptoms of Parkinson's Disease. recently had an MBSS to objectively assess the oral and pharyngeal stage of the swallow. P: RTC 07/17/24 @ 1400 via [facility] /sharron/ AMARIS WESTFALL M.S.,CCC-ANALYTICS DEVELOPER SPEECH-LANGUAGE PATHOLOGIST Signed: 07/19/2024 08:03 /sharron/ BLAKE MURILLO NP [facility] Nurse Practitioner Cosigned: 07/20/2024 12:45 for LUIS FERNANDO HICKEY-C HB NURSE PRACTITIONER AMARIS WESTFALL [facility]
--- OUTSIDE RECORDS SUMMARY | 2024-10-29 13:41 | XMS_ITS ---
Author Name [facility] of [facility] ([place]) Organization [facility] Address [address] [place] [id number] Care Team Providers Care Service Desk Lead Name Role Phone HUSEYIN LUIS FERNANDO [...] PART B Jun 20, 2014 PART B [id number] [phone] EAMON OLIVIA ERT PATIENT MEDICARE (WNR) MEDICARE (M) PART A Jun 20, 2014 PART A [id number] EAMON OLIVIA ERT PATIENT MEDICARE (WNR) MEDICARE (M) PART A Jun 20, 2014 PART A [id number] [phone] EAMON OLIVIA ERT PATIENT MEDICARE (WNR) MEDICARE (M) PART B Jun 20, 2014 PART B [id number] [phone] EAMON OLIVIA ERT PATIENT [facility] RX PRESCRIPT ION RX Jun 20, 2023 THPRX [id number] [phone] EAMON OLIVIA ERT PATIENT [facility] RX PRESCRIPT ION RX Jun 20, 2022 THPRX [id number] DAVON OLIVIA JR PATIENT [facility] RX PRESCRIPT ION RX Jun 20, 2022 THPRX [id number] [phone] EAMON OLIVIA ERT PATIENT [facility] Jun 20, 2017 [id number] EAMON OLIVIA ERT PATIENT [facility] Jun 20, 2017 [id number] DAVON OLIVIA JR PATIENT [facility] Jun 20, 2017 [id number] DAVON OLIVIA JR PATIENT [facility] Jun 20, 2017 USP [id number] [phone] EAMON OLIVIA ERT PATIENT [facility] Jun 20, 2023 [id number] EAMON OLIVIA ERT PATIENT Selected Encounter This section includes the information on record at [place] for the Encounter. Date/Time Encounter Type Encounter Description Reason Provider Source Sep 24, 2024 10:00 AM SELF CARE MNGMENT TRAINING [facility] Nursing (RN / LP) ICD-10-CM R31.9 Hematuria, unspecified RISING,JENNIFER L IHE Encounter Template Text not used by [place] Assessments - Encounter Diagnoses This section includes the primary and secondary diagnoses documented for the Encounter. Date/Time Primary/Secondary Diagnosis Diagnosis Name Provider Source Sep 24, 2024 04:02 PM PRIMARY Hematuria, unspecified RISING,HEATHE R L [facility] [place] [facility] Sep 24, 2024 04:02 PM SECONDARY Hypotension, unspecified RISING,HEATHE R L [facility] [place] [facility] Sep 24, 2024 04:02 PM SECONDARY Parkinson's dis w/o dyskinesia, w/o [...] BLOOD FIT X1 SCREEN(IN-HOUSE) STOOL FECES SP [facility] Lab Results: +/- 30 days [...] Type Comment Sep 24, 2024 11:00 AM [facility] HEMOGLOBIN A1C PANEL BLOOD Specimen Type: [...] Sep 24, 2024 02:09 PM Reporting Lab: [address] [address] Performing Lab: [address] [address] HEMOGLOBIN A1C 5.2 4.0-5.6 Sep 24, 2024 11:00 AM [facility] LIPID PANEL, NON FASTING SERUM Specimen Type: SERUM No comment entered. Ordering Provider: LUIS FERNANDO FONTANEZ Report Released Date/Time: Sep 24, 2024 11:37 AM Reporting Lab: [facility] [address] [facility] [address] Performing Lab: [address] [address] CHOLESTEROL 183 mg/dL TRIGLYCERIDE 59 mg/dL 0-150 LDL calculated 123 mg/dL 0-129 CHOL/HDL 3.8 HDL CHOLESTEROL 48 mg/dL 40-60 Sep 24, 2024 11:00 AM [facility] CBC AND DIFF (AUTO) BLOOD Specimen Type: BLOO D No comment entered. Ordering Provider: LUIS FERNANDO FONTANEZ Report Released Date/Time: Sep 12, 2024 12:12 PM Reporting Lab: [address] [address] Performing Lab: [address] [address] WBC 6.46 10*3/uL 4.50-11.00 RBC 4.67 10*6/uL [...] 10*3/uL 0.00-0.00 Sep 05, 2024 12:00 AM [facility] OCCULT BLOOD FIT X1 SCREEN(IN-HOUSE) FECES Sp ecimen Type: FECES No comment entered. Ordering Provider: LUIS FERNANDO FONTANEZ Report Released Date/Time: May 25, 2024 10:38 AM Reporting Lab: [facility] [address] [facility] [id number] Performing Lab: [address] [address] OCCULT BLOOD (FIT)#1 OF 1 POSITIVE HH NEG Vital Signs: All taken on the encounter date This section contains inpatient and outpatient Vital Signs collected on the date of the Encounter. Date/Time Temperature Pulse Blood Pressure Respiratory Rate SP02 Pain Height Weight Body Mass Index Source Sep 24, 2024 10:00 AM 98.1 62 98/61 18 96 0 186.2 31 [facility] Social History: Smoking Status (Most [...] Facil ity May 25, 2024 09:30 AM NE-TOBACCO NEVER U SED CIGARETTES [facility] Tobacco Use History This section includes a history of the smoking, or tobacco-related health factors, that were collected on or before the date of the Encounter. The data comes from the [place] facility where the Encounter took place. Date/Time Smoking Status/Tobacco Use Comment F acility May 25, 2024 09:30 AM NE-TOBACCO NEVER U SED OTHER TYPE [facility] Jan 19, 2023 12:24 PM VA-TOBACCO NEVER USED [facility] [place] [facility] Jan 15, 2021 11:00 AM VA-TOBACCO NEVER USED [facility] [place] [facility] Advance Directives: All historical and current Section [...] Jan 20, 2021 ADVANCE DIRECTIVE [facility] Encounter Notes: All associated encounter notes This section contains the clinical notes associated to the Encounter. Date/Time Encounter Note(s) Provider Source Oct 04, 2024 01:26 PM [facility] NOTE: LOCAL TITLE: [facility] POST INFECTION ASSESSMENT NOTE STANDARD TITLE: [facility] NOTE DATE OF NOTE: OCT 04, 2024@13:26 ENTRY DATE: OCT 04, 2024@13:26:18 AUTHOR: JENNIFER SEGURA EXP COSIGNER: URGENCY: STATUS: COMPLETED POST INFECTION ASSESSMENT NOTE Date of Infection: Sep Government Minister: Jennifer Segura Type of Infection: UTI Patient Seen in ER: Yes [ ] No [X] Culture Sent: Yes [ ] No [X] Facility Reporting Culture Results: Abx Prescribed: Yes [X] No [ ] Name of Antibiotic: Bactrim Ordering Provider: Urologist Dr. Hoyos (Please check all that apply) Risk Factors Possibly Contributing to Infection: [ ] Surgical Procedure [X] BPH/Urinary Retention [ ] COPD [ ] Vascular Insufficiency/Edema [ ] Montiel Catheter [ ] Suprapubic Catheter [ ] Intermittent Catheterization [ ] Other Was Wallace discharged from inpatient status 48-72 hours prior to infection? Yes [ ] No [X] If yes, where: Infection Resolved: Yes [X] No [ ] Current Status of Patient: [X] Home [ ] Hospital (Please check all that apply) Interventions: [ ] F/U Medical Visit [X] PCP Notified [X] PSA Notified [X] Education was provided to patient and/or family regarding infection/infection control /es/ JENNIFER SEGURA HISTOLOGIC AIDE [facility] Signed: 10/04/2024 13:28 Receipt Acknowledged By: 10/05/2024 08:50 /sharron/ AMANDO MERRITTUT EVALUATION ASSISTANT MICHELE/HB 10/04/2024 14:36 /sharron/ KALYAN BARBER [facility] DIRECTOR OF SUPPLY CHAIN 10/04/2024 14:07 /sharron/ LUIS FERNANDO CHIU [facility] NURSE PRACTITIONER JENNIFER SEGURA [facility] [place] [facility] Sep 24, 2024 04:13 PM ADDENDUM: LOCAL TITLE: Addendum STANDARD TITLE: ADDENDUM DATE OF NOTE: SEP 24, 2024@16:13:24 ENTRY DATE: SEP 24, 2024@16:13:26 AUTHOR: JENNIFER SEGURA EXP COSIGNER: URGENCY: STATUS: COMPLETED Please renew if in agreement. Thank you! OUTPT APIXABAN 5MG TAB (Status = Active) TAKE ONE TABLET BY MOUTH EVERY 12 HOURS FOR ATRIAL FIBRILLATION Rx# [id number] Last Released: 08/18/24 Qty/Days Supply: 180/90 Rx Expiration Date: 12/28/24 Refills Remainin Indication: ATRIAL FIBRILLATION /consuelo SEGURA RN BSN [facility] Signed: 09/24/2024 16:16 Receipt Acknowledged By: 09/25/2024 09:36 /sharron/ LUIS FERNANDO [facility] NURSE PRACTITIONER --- Original Document --- 09/24/24 HB RN PROGRESS NOTE: Nursing Progress Note [...] A DAY 5) CATH,EXTERNAL EXTENDED WEAR SMALL H#9278 USE 1 CATHETER ACTIVE URETHRAL ONCE DAILY [...] ACTIVE DAILY Indication: FOR CALCIUM IN URINE 13) HYDROPHILIC (EQV EUCERIN) TOP CREAM APPLY A LIBERAL AMOUNT ACTIVE TOPICALLY ONCE DAILY Indication: FOR DRY SKIN 14) HYDROXYZINE HCL 10MG TAB TAKE ONE TABLET BY MOUTH AT BEDTIME ACTIVE NEEDED FOR SLEEP Indication: INSOMNIA 15) INCONT LINER PREVAIL GUARDS #[id number] USE 1 LINER TOPICALLY ACTIVE TWO TIMES A DAY Indication: INCONTINENCE 16) INCONT LINER,MENS X-HVY SURECARE #[id number] USE 1 LINER ACTIVE TOPICALLY AT BEDTIME Indication: INCONTINENCE 17) WRAP,MALE USE 1 WRAP TOPICALLY AT BEDTIME ACTIVE Indication: INCONTINENCE 18) MELATONIN 5MG CAP/TAB TAKE THREE CAPSULE/TABLETS BY MOUTH AT ACTIVE BEDTIME Indication: FOR INSOMNIA 19) MEMANTINE HCL 10MG TAB TAKE ONE TABLET BY MOUTH TWICE DAILY ACTIVE 20) MIDODRINE HCL 5MG TAB TAKE ONE TABLET BY MOUTH THREE TIMES ACTIVE DAILY NEEDED Indication: FOR LOW BLOOD PRESSURE 21) MULTIVITAMIN/MINERALS CHEW TAB CHEW 1 TABLET BY MOUTH ONCE ACTIVE DAILY Indication: FOR VITAMIN SUPPLEMENTATION 22) MULTIVITS W/MINERALS TAB/CAP (NO VIT K) TAKE 1 TABLET BY ACTIVE MOUTH ONCE DAILY Indication: FOR VITAMIN SUPPLEMENTATION 23) NUTRITION SUPL ENSURE PLUS/VANILLA LIQ DRINK 1 CAN BY MOUTH ACTIVE THREE TIMES A DAY Indication: FOR NUTRITIONAL SUPPLEMENTATION 24) ORAL,SWAB TOOTHETTE USE 1 MOUTH SWAB DIRECTED ONCE DAILY ACTIVE TO USE WITH CHLOREHEXADINE ORAL RINSE 25) POLYETHYLENE GLYCOL 3350 ORAL PWDR TAKE 17 GRAMS(FILL CAP TO ACTIVE 17GM LINE) BY MOUTH ONCE DAILY [MIX WITH 4 TO 8OZ. OF BEVERAGE] Indication: FOR CONSTIPATION 26) RASAGILINE MESYLATE 1MG TAB TAKE ONE TABLET BY MOUTH ONCE ACTIVE DAILY 27) UNDERPAD,BED ULTRASORB [id number] M#3136 USE 2 UNDERPADS ACTIVE TOPICALLY AT BEDTIME Indication: INCONTINENCE 28) URINARY DRAINAGE BAG BARD #[id number] USE 1 DRAINAGE BAG EVERY 7 ACTIVE [...] in patient's home at time of visit. Wallace identified by: Full Name, Facial Recognition Length of visit in home: 60 MINUTES Problem addressed for this visit: Hematuria, urine incont, PD Specimen(s) collected during this visit: RNCM faisal blood from Right AC using 23 gauge butterfly needle on first attempt without incident. Tolerated well. Specimens dropped off at [facility] lab NURSING SUMMARY: RNCM made home visit for chronic disease management, c/v and c/p assessment, neuro assessment, labs. alert + oriented x 3 cooperative with care. Able to state month, year and president. Spouse reports Wallace having some confusion this morning. Well groomed. Dressed appropriately. Flat affect. Reports he is doing well, no complaints. No acute distress. Denies pain. PD-Speech soft and monotone, able to understand. Muscle rigidity to upper and lower extremities. Sundowning that starts early evening. No hallucinations or behavior issues at this time. Has appt with Neurologist Dr. Fabby Sun on 10/29/24. Blood pressure has been running on the lower side 98/61. Denies chest pain, palpations, dizziness. Discussed increasing fluid intake to 48 oz of water daily. Slow position changes. Abdomen soft non-tender, non-distended + bs x 4. Moving bowels every 2 days and sometimes daily. Denies blood in stool. Occult fit test positive. Denies fatigue and weakness. No pallor noted. Reviewed if experiencing the above to notify provider. Dysphagia: Diet minced and moist diet with thin liquids. Wallace eating 3 meals/day. Foods cut into very small pieces, or she purees. Fluid intake fair. Denies any choking episodes. Appetite good. Reports weight up to 186.2lbs. Spouse reports weight increased up to 190 lbs so she cut back on his snacks Too heavy to move . Hematuria: Wallace has intermittent hematuria. Spouse reports he has increased hematuria the past week and she notified urologist office and Wallace has an appt this . Describes color as light cranberry but not all the time. Wallace followed up with Baby Registry Sales Consultant Dr. Emil Davis last month. Spouse reports had an extreme episode of Raynaud's episode during appt- hands were completely white and MD was concerned and mentioned should have a chest CT-Scan. Spouse asking for primary to order via [place]. Discussed with spouse will request office notes to be faxed to [place] and provider will review. Today hands normal skin tone. Cap refill <3 seconds. Hands and fingers warm to touch. Denies pain, tingling, numbness. Able to get o2 sat reading instantly. Spouse denies any rash. Reports she stopped the crystal light and no rash since. manages and administers meds. Administering meds in pudding or applesauce. Reviewed medication regimen. Spouse administering meds as directed. Med list left in home. Spouse reports received scale for Michael lift but needs [facility] PT to make home visit to put it on and teach her how to use it. Front Office Assistant canceled appt this month and rescheduled a few months out. Dermatology appt 11/15. Dental appt 10/18. Urologist appt 10/06, neurologist 10/29. Blood Pressure: 98/61 (09/24/2024 10:00) Pulse: 62 (09/24/2024 10:00) Respiration: 18 (09/24/2024 10:00) Temperature: 98.1 F [36.7 C] (09/24/2024 10:00) Pain Score: 0 (09/24/2024 10:00) EXAMINATION: Lungs: Ls clear throughout. Resp easy and reg. Edema: PPP, No edema HR: Strong and reg. Denies chest pain, palpations, dizziness. Bowel/Bladder: Incontinent of urine. Intermittent Hematuria. uses quick change urine management wrap with oversized poise pad during the day. Condom catheter at night. Spouse reports external cath that he is receiving from [place] is not working for him. She ordered a different brand on line and that is working well. RNCM to order via [employer] if available in stock. Occasional incontinence of stool. Denies diarrhea/constipation. Skin: [...] as possible with assist from his and [facility], [facility] Patient verbalizes understanding to above and will call with any concerns or changes in condition. For emergent care call 911. Plan for next visit: 10/19/24 for chronic disease management, c/v and c/p assessment, neuro assessment /ZACHARIAH Rodriguez [facility] [employer] [facility] Signed: 09/24/2024 16:02 09/24/2024 ADDENDUM STATUS: COMPLETED Reviewed tdap and rsv vaccine due. Spouse reports [facility]. Spouse provided immunization list print out from [facility]. Spouse declines RSV vaccine indefinitely. /ZACHARIAH Rodriguez [facility] [employer] [facility] Signed: 09/24/2024 16:06 09/24/2024 ADDENDUM STATUS: COMPLETED Spouse reports received scale for Michael lift but needs [facility] PT to make home visit to put it on and teach her how to use it. /es/ JENNIFER SEGURA RN BSN [facility] [employer] [facility] Signed: 09/24/2024 16:06 Receipt Acknowledged By: * AWAITING SIGNATURE * RAMIN MENDIETA 09/24/2024 ADDENDUM STATUS: COMPLETED Hematuria: Wallace has intermittent hematuria. Spouse reports he has increased hematuria the past week and she notified urologist office and Wallace has an appt this . Describes color as light cranberry but not all the time. Wallace followed up with Baby Registry Sales Consultant Dr. Emil Davis last month. Spouse reports had an extreme episode of Raynaud's episode during appt- hands were completely white and MD was concerned and mentioned should have a chest CT-Scan. Spouse [facility] Discussed with spouse will [facility] PCP will review office note. Today hands normal skin tone. Cap refill <3 seconds. Hands and fingers warm to touch. Denies pain, tingling, numbness. Able to get o2 sat reading instantly. Spouse to monitor and will report any abnormal findings. Office note faxed in right fax folder. No mention of extreme episode of Raynaud's episode during appt. Didn't mention at all. /sharron/ JENNIFER SEGURA RN BSN [facility] [employer] [facility] Signed: 09/24/2024 16:12 Receipt Acknowledged By: * AWAITING SIGNATURE * LUIS FERNANDO FONTANEZ HEATHER L [facility] [place] [facility] Sep 24, 2024 04:07 PM ADDENDUM: LOCAL TITLE: Addendum STANDARD TITLE: ADDENDUM DATE OF NOTE: SEP 24, 2024@16:07:36 ENTRY DATE: SEP 24, 2024@16:07:37 AUTHOR: JENNIFER SEGURA EXP COSIGNER: URGENCY: STATUS: COMPLETED Hematuria: has intermittent hematuria. Spouse reports he has increased hematuria the past week and she notified urologist office and Wallace has an appt this . Describes color as light cranberry but not all the time. Wallace followed up with Baby Registry Sales Consultant Dr. Emil Davis last month. Spouse reports had an extreme episode of Raynaud's episode during appt- hands were completely white and was concerned and mentioned should have a chest CT-Scan. Spouse asking for [facility]. Discussed with spouse will [facility] PCP will review office note. Today hands normal skin tone. Cap refill <3 seconds. Hands and fingers warm to touch. Denies pain, tingling, numbness. Able to get o2 sat reading instantly. Spouse to monitor and will report any abnormal findings. Office note faxed in right fax folder. No mention of extreme episode of Raynaud's episode during appt. Didn't mention at all. /es/ JENNIFER SEGURA RN BSN [facility] [employer] Signed: 09/24/2024 16:12 Receipt Acknowledged By: 09/25/2024 09:41 /es/ LUIS FERNANDO DONNELLYC [facility] NURSE PRACTITIONER --- Original Document --- 09/24/24 [facility] RN PROGRESS NOTE: Nursing Progress Note [...] A DAY 5) CATH,EXTERNAL EXTENDED WEAR SMALL H#6392 USE 1 CATHETER ACTIVE URETHRAL ONCE DAILY [...] ACTIVE DAILY Indication: FOR CALCIUM IN URINE 13) HYDROPHILIC (EQV EUCERIN) TOP CREAM APPLY A LIBERAL AMOUNT ACTIVE TOPICALLY ONCE DAILY Indication: FOR DRY SKIN 14) HYDROXYZINE HCL 10MG TAB TAKE ONE TABLET BY MOUTH AT BEDTIME ACTIVE NEEDED FOR SLEEP Indication: INSOMNIA 15) INCONT LINER PREVAIL GUARDS #[id number] USE 1 LINER TOPICALLY ACTIVE TWO TIMES A DAY Indication: INCONTINENCE 16) INCONT LINER,[facility]ENS [facility] #[id number] USE 1 LINER ACTIVE TOPICALLY AT BEDTIME Indication: INCONTINENCE 17) WRAP,MALE USE 1 WRAP TOPICALLY AT BEDTIME ACTIVE Indication: INCONTINENCE 18) MELATONIN 5MG CAP/TAB TAKE THREE CAPSULE/TABLETS BY MOUTH AT ACTIVE BEDTIME Indication: FOR INSOMNIA 19) MEMANTINE HCL 10MG TAB TAKE ONE TABLET BY MOUTH TWICE DAILY ACTIVE 20) MIDODRINE HCL 5MG TAB TAKE ONE TABLET BY MOUTH THREE TIMES ACTIVE DAILY NEEDED Indication: FOR LOW BLOOD PRESSURE 21) MULTIVITAMIN/MINERALS CHEW TAB CHEW 1 TABLET BY MOUTH ONCE ACTIVE DAILY Indication: FOR VITAMIN SUPPLEMENTATION 22) MULTIVITS W/MINERALS TAB/CAP (NO VIT K) TAKE 1 TABLET BY ACTIVE MOUTH ONCE DAILY Indication: FOR VITAMIN SUPPLEMENTATION 23) NUTRITION SUPL ENSURE PLUS/VANILLA LIQ DRINK 1 CAN BY MOUTH ACTIVE THREE TIMES A DAY Indication: FOR NUTRITIONAL SUPPLEMENTATION 24) ORAL,SWAB TOOTHETTE USE 1 MOUTH SWAB DIRECTED ONCE DAILY ACTIVE TO USE WITH CHLOREHEXADINE ORAL RINSE 25) POLYETHYLENE GLYCOL 3350 ORAL PWDR TAKE 17 GRAMS(FILL CAP TO ACTIVE 17GM LINE) BY MOUTH ONCE DAILY [MIX WITH 4 TO 8OZ. OF BEVERAGE] Indication: FOR CONSTIPATION 26) RASAGILINE MESYLATE 1MG TAB TAKE ONE TABLET BY MOUTH ONCE ACTIVE DAILY 27) UNDERPAD,BED ULTRASORB [id number] #3136 USE 2 UNDERPADS ACTIVE TOPICALLY AT BEDTIME Indication: INCONTINENCE 28) URINARY DRAINAGE BAG FRONTENAC #[id number] USE 1 DRAINAGE BAG EVERY 7 ACTIVE [...] 60 MINUTES Problem addressed for this visit: Hematuria, urine incont, PD Specimen(s) collected during this visit: RNCM faisal blood from Right AC using 23 gauge butterfly needle on first attempt without incident. Tolerated well. Specimens dropped off at [facility] lab NURSING SUMMARY: RNCM made home visit for chronic disease management, c/v and c/p assessment, neuro assessment, labs. alert + oriented x 3 cooperative with care. Able to state month, year and president. Spouse reports Wallace having some confusion this morning. Well groomed. Dressed appropriately. Flat affect. Reports he is doing well, no complaints. No acute distress. Denies pain. PD-Speech soft and monotone, able to understand. Muscle rigidity to upper and lower extremities. Sundowning that starts early evening. No hallucinations or behavior issues at this time. Has appt with Neurologist Dr. Fabby Sun on 10/29/24. Blood pressure has been running on the lower side 98/61. Denies chest pain, palpations, dizziness. Discussed increasing fluid intake to 48 oz of water daily. Slow position changes. Abdomen soft non-tender, non-distended + bs x 4. Moving bowels every 2 days and sometimes daily. Denies blood in stool. Occult fit test positive. Denies fatigue and weakness. No pallor noted. Reviewed if experiencing the above to notify provider. Dysphagia: Diet minced and moist diet with thin liquids. eating 3 meals/day. Foods cut into very small pieces, or she purees. Fluid intake fair. Denies any choking episodes. Appetite good. Reports weight up to 186.2lbs. Spouse reports weight increased up to 190 lbs so she cut back on his snacks Too heavy to move . Hematuria: has intermittent hematuria. Spouse reports he has increased hematuria the past week and she notified urologist office and Wallace has an appt this . Describes color as light cranberry but not all the time. Wallace followed up with Baby Registry Sales Consultant Dr. Emil Davis last month. Spouse reports had an extreme episode of Raynaud's episode during appt- hands were completely white and MD was concerned and mentioned Wallace should have a chest CT-Scan. Spouse asking for primary to order via [place]. Discussed with spouse will request office notes to be faxed to [place] and provider will review. Today hands normal skin tone. Cap refill <3 seconds. Hands and fingers warm to touch. Denies pain, tingling, numbness. Able to get o2 sat reading instantly. Spouse denies any rash. Reports she stopped the crystal light and no rash since. manages and administers meds. Administering meds in pudding or applesauce. Reviewed medication regimen. Spouse administering meds as directed. Med list left in home. Spouse reports received scale for Michael lift but needs [facility] PT to make home visit to put it on and teach her how to use it. Front Office Assistant canceled appt this month and rescheduled a few months out. Dermatology appt 11/15. Dental appt 10/18. Urologist appt 10/06, neurologist 10/29. Blood Pressure: 98/61 (09/24/2024 10:00) Pulse: 62 (09/24/2024 10:00) Respiration: 18 (09/24/2024 10:00) Temperature: 98.1 F [36.7 C] (09/24/2024 10:00) Pain Score: 0 (09/24/2024 10:00) EXAMINATION: Lungs: Ls clear throughout. Resp easy and reg. Edema: PPP, No edema HR: Strong and reg. Denies chest pain, palpations, dizziness. Bowel/Bladder: Incontinent of urine. Intermittent Hematuria. uses quick change urine management wrap with oversized poise pad during the day. Condom catheter at night. Spouse reports external cath that he is receiving from [place] is not working for him. She ordered a different brand on line and that is working well. RNCM to order via [place] if available in stock. Occasional incontinence of stool. Denies diarrhea/constipation. Skin: [...] as possible with assist from his and [facility], [employer] Patient verbalizes understanding to above and will call with any concerns or changes in condition. For emergent care call 911. Plan for next visit: 10/19/24 for chronic disease management, c/v and c/p assessment, neuro assessment /ZACHARIAH Rodriguez [facility] Signed: 09/24/2024 16:02 09/24/2024 ADDENDUM STATUS: COMPLETED Reviewed tdap and rsv vaccine due. Spouse reports Wallace [facility]. Spouse provided immunization list print out from [facility]. Spouse declines RSV vaccine indefinitely. /ZACHARIAH Rodriguez [facility] [employer] Signed: 09/24/2024 16:06 09/24/2024 ADDENDUM STATUS: COMPLETED Spouse reports received scale for Michael lift but needs [facility] PT to make home visit to put it on and teach her how to use it. /ZACHARIAH Rodriguez [facility] [employer] Signed: 09/24/2024 16:06 Receipt Acknowledged By: * AWAITING SIGNATURE * RAMIN MENDIETA 09/24/2024 ADDENDUM STATUS: COMPLETED Please renew if in agreement. Thank you! OUTPT APIXABAN 5MG TAB (Status = Active) TAKE ONE TABLET BY MOUTH EVERY 12 HOURS FOR ATRIAL FIBRILLATION Rx# [id number] Last Released: 08/18/24 Qty/Days Supply: 180/90 Rx Expiration Date: 12/28/24 Refills Remainin Indication: ATRIAL FIBRILLATION /ZACHARIAH Rodriguez HBDARSHAN [employer] Signed: 09/24/2024 16:16 Receipt Acknowledged By: 09/25/2024 09:36 /es/ LUIS FERNANDO CHIU HB NURSE PRACTITIONER JENNIFER SEGURA CNTRL WSTRN [facility] Sep 24, 2024 04:06 PM ADDENDUM: LOCAL TITLE: Addendum STANDARD TITLE: ADDENDUM DATE OF NOTE: SEP 24, 2024@16:06:40 ENTRY DATE: SEP 24, 2024@16:06:41 AUTHOR: JENNIFER SEGURA EXP COSIGNER: URGENCY: STATUS: COMPLETED Spouse reports received scale for Michael lift but needs HB PT to make home visit to put it on and teach her how to use it. /sharron/ ZACHARIAH SWIFT [facility]AN [facility] [employer] [facility] Signed: 09/24/2024 16:06 Receipt Acknowledged By: 09/25/2024 09:47 /es/ RAMIN MENDIETA, PT, MS, ATP [facility] Physical Therapist --- Original Document --- 09/24/24 HBDARSHAN RN PROGRESS NOTE: Nursing Progress Note Active [...] A DAY 5) CATH,EXTERNAL EXTENDED WEAR SMALL H#9284 USE 1 CATHETER ACTIVE URETHRAL ONCE DAILY [...] ACTIVE DAILY Indication: FOR CALCIUM IN URINE 13) HYDROPHILIC (EQV EUCERIN) TOP CREAM APPLY A LIBERAL AMOUNT ACTIVE TOPICALLY ONCE DAILY Indication: FOR DRY SKIN 14) HYDROXYZINE HCL 10MG TAB TAKE ONE TABLET BY MOUTH AT BEDTIME ACTIVE NEEDED FOR SLEEP Indication: INSOMNIA 15) INCONT LINER PREVAIL GUARDS #[id number] USE 1 LINER TOPICALLY ACTIVE TWO TIMES A DAY Indication: INCONTINENCE 16) INCONT LINER,MENS X-HVY SURECARE #[id number] USE 1 LINER ACTIVE TOPICALLY AT BEDTIME Indication: INCONTINENCE 17) WRAP,MALE USE 1 WRAP TOPICALLY AT BEDTIME ACTIVE Indication: INCONTINENCE 18) MELATONIN 5MG CAP/TAB TAKE THREE CAPSULE/TABLETS BY MOUTH AT ACTIVE BEDTIME Indication: FOR INSOMNIA 19) MEMANTINE HCL 10MG TAB TAKE ONE TABLET BY MOUTH TWICE DAILY ACTIVE 20) MIDODRINE HCL 5MG TAB TAKE ONE TABLET BY MOUTH THREE TIMES ACTIVE DAILY NEEDED Indication: FOR LOW BLOOD PRESSURE 21) MULTIVITAMIN/MINERALS CHEW TAB CHEW 1 TABLET BY MOUTH ONCE ACTIVE DAILY Indication: FOR VITAMIN SUPPLEMENTATION 22) MULTIVITS W/MINERALS TAB/CAP (NO VIT K) TAKE 1 TABLET BY ACTIVE MOUTH ONCE DAILY Indication: FOR VITAMIN SUPPLEMENTATION 23) NUTRITION SUPL ENSURE PLUS/VANILLA LIQ DRINK 1 CAN BY MOUTH ACTIVE THREE TIMES A DAY Indication: FOR NUTRITIONAL SUPPLEMENTATION 24) ORAL,SWAB TOOTHETTE USE 1 MOUTH SWAB DIRECTED ONCE DAILY ACTIVE TO USE WITH CHLOREHEXADINE ORAL RINSE 25) POLYETHYLENE GLYCOL 3350 ORAL PWDR TAKE 17 GRAMS(FILL CAP TO ACTIVE 17GM LINE) BY MOUTH ONCE DAILY [MIX WITH 4 TO 8OZ. OF BEVERAGE] Indication: FOR CONSTIPATION 26) RASAGILINE MESYLATE 1MG TAB TAKE ONE TABLET BY MOUTH ONCE ACTIVE DAILY 27) UNDERPAD,BED ULTRASORB 34I19CT #3136 USE 2 UNDERPADS ACTIVE TOPICALLY AT BEDTIME Indication: INCONTINENCE 28) URINARY DRAINAGE BAG FRONTENAC #[id number] USE 1 DRAINAGE BAG EVERY 7 ACTIVE [...] in patient's home at time of visit. Wallace identified by: Full Name, Facial Recognition Length of visit in home: 60 MINUTES Problem addressed for this visit: Hematuria, urine incont, PD Specimen(s) collected during this visit: RNCM faisal blood from Right AC using 23 gauge butterfly needle on first attempt without incident. Tolerated well. Specimens dropped off at [facility] lab NURSING SUMMARY: RNCM made home visit for chronic disease management, c/v and c/p assessment, neuro assessment, labs. alert + oriented x 3 cooperative with care. Able to state month, year and president. Spouse reports Wallace having some confusion this morning. Well groomed. Dressed appropriately. Flat affect. Reports he is doing well, no complaints. No acute distress. Denies pain. PD-Speech soft and monotone, able to understand. Muscle rigidity to upper and lower extremities. Sundowning that starts early evening. No hallucinations or behavior issues at this time. Has appt with Neurologist Dr. Fabby Sun on 10/29/24. Blood pressure has been running on the lower side 98/61. Denies chest pain, palpations, dizziness. Discussed increasing fluid intake to 48 oz of water daily. Slow position changes. Abdomen soft non-tender, non-distended + bs x 4. Moving bowels every 2 days and sometimes daily. Denies blood in stool. Occult fit test positive. Denies fatigue and weakness. No pallor noted. Reviewed if experiencing the above to notify provider. Dysphagia: Diet minced and moist diet with thin liquids. eating 3 meals/day. Foods cut into very small pieces, or she purees. Fluid intake fair. Denies any choking episodes. Appetite good. Reports weight up to 186.2lbs. Spouse reports weight increased up to 190 lbs so she cut back on his snacks Too heavy to move . Hematuria: Wallace has intermittent hematuria. Spouse reports he has increased hematuria the past week and she notified urologist office and Wallace has an appt this . Describes color as light cranberry but not all the time. Wallace followed up with [facility] [employer] Sales Consultant Dr. Emil Davis last month. Spouse reports had an extreme episode of Raynaud's episode during appt- hands were completely white and MD was concerned and mentioned should have a chest CT-Scan. Spouse asking for [place] to order via [place]. Discussed with spouse will request office [facility] and provider will review. Today hands normal skin tone. Cap refill <3 seconds. Hands and fingers warm to touch. Denies pain, tingling, numbness. Able to get o2 sat reading instantly. Spouse denies any rash. Reports she stopped the crystal light and no rash since. manages and administers meds. Administering meds in pudding or applesauce. Reviewed medication regimen. Spouse administering meds as directed. Med list left in home. Spouse reports received scale for Michael lift but needs [facility] PT to make home visit to put it on and teach her how to use it. Front Office Assistant canceled appt this month and rescheduled a few months out. Dermatology appt 11/15. Dental appt 10/18. Urologist appt 10/06, neurologist 10/29. Blood Pressure: 98/61 (09/24/2024 10:00) Pulse: 62 (09/24/2024 10:00) Respiration: 18 (09/24/2024 10:00) Temperature: 98.1 F [36.7 C] (09/24/2024 10:00) Pain Score: 0 (09/24/2024 10:00) EXAMINATION: Lungs: Ls clear throughout. Resp easy and reg. Edema: PPP, No edema HR: Strong and reg. Denies chest pain, palpations, dizziness. Bowel/Bladder: Incontinent of urine. Intermittent Hematuria. uses quick change urine management wrap with oversized poise pad during the day. Condom catheter at night. Spouse reports [facility] is not working for him. She ordered a different brand on line and that is working well. RNCM to order via [facility] if available in stock. Occasional incontinence of stool. Denies diarrhea/constipation. Skin: [...] as possible with assist from his and [facility], [facility] Patient verbalizes understanding to above and will call with any concerns or changes in condition. For emergent care call 911. Plan for next visit: 10/19/24 for chronic disease management, c/v and c/p assessment, neuro assessment /ZACHARIAH Rodriguez [facility] [employer] [facility] Signed: 09/24/2024 16:02 09/24/2024 ADDENDUM STATUS: COMPLETED Reviewed tdap and rsv vaccine due. Spouse reports Wallace [facility] Spouse provided immunization list print out from [facility]. Spouse declines RSV vaccine indefinitely. /ZACHARIAH Rodriguez [facility] [employer] [facility] Signed: 09/24/2024 16:06 09/24/2024 ADDENDUM STATUS: COMPLETED Hematuria: Wallace has intermittent hematuria. Spouse reports he has increased hematuria the past week and she notified urologist office and has an appt this . Describes color as light cranberry but not all the time. Wallace followed up with [facility] [employer] Sales Consultant Dr. Emil Davis last month. Spouse reports had an extreme episode of Raynaud's episode during appt- hands were completely white and was concerned and mentioned Wallace should have a chest CT-Scan. Spouse asking for [facility]. Discussed with spouse will [facility] PCP will review office note. Today hands normal skin tone. Cap refill <3 seconds. Hands and fingers warm to touch. Denies pain, tingling, numbness. Able to get o2 sat reading instantly. Spouse to monitor and will report any abnormal findings. Office note faxed in right fax folder. No mention of extreme episode of Raynaud's episode during appt. Didn't mention at all. /ZACHARIAH Rodriguez [employer] [facility] Signed: 09/24/2024 16:12 Receipt Acknowledged By: 09/25/2024 09:41 /consuelo CHIU [facility] NURSE PRACTITIONER 09/24/2024 ADDENDUM STATUS: COMPLETED Please renew if in agreement. Thank you! OUTPT APIXABAN 5MG TAB (Status = Active) TAKE ONE TABLET BY MOUTH EVERY 12 HOURS FOR ATRIAL FIBRILLATION Rx# [id number] Last Released: 08/18/24 Qty/Days Supply: 180/90 Rx Expiration Date: 12/28/24 Refills Remainin Indication: ATRIAL FIBRILLATION /ZACHARIAH Rodriguez [employer] Signed: 09/24/2024 16:16 Receipt Acknowledged By: 09/25/2024 09:36 /consuelo CHIU [facility] NURSE PRACTITIONER JENNIFER SEGURA [facility] Sep 24, 2024 03:00 PM PREVENTIVE MEDICINE NURSING NOTE: LOCAL TITLE: CLINICAL REMINDERS/NURSING STANDARD TITLE: PREVENTIVE MEDICINE NURSING NOTE DATE OF NOTE: SEP 24, 2024@15:00 ENTRY DATE: SEP 25, 2024@12:01:05 AUTHOR: JENNIFER SEGURA EXP COSIGNER: URGENCY: STATUS: COMPLETED Tdap Immunization: Td/Tdap given previously - written records available The patient has previously received the Tetanus, Diphtheria, Pertussis vaccine (Tdap). Documented: TDAP Historical Date Administered: Sep 15, 2023 Information Source: FROM OTHER PROVIDER [facility] PCP AT [facility] /ZACHARIAH Rodriguez [employer] Signed: 09/25/2024 12:03 [facility]ENN[facility]ARL [facility] Sep 24, 2024 03:00 PM PREVENTIVE MEDICINE NURSING NOTE: LOCAL TITLE: CLINICAL REMINDERS/NURSING STANDARD TITLE: PREVENTIVE MEDICINE NURSING NOTE DATE OF NOTE: SEP 24, 2024@15:00 ENTRY DATE: SEP 25, 2024@12:04:14 AUTHOR: JENNIFER SEGURA EXP COSIGNER: URGENCY: STATUS: COMPLETED RSV Immunization: Respiratory Syncytial Virus (RSV) Vaccine: Refused Ag[employer] LimitedoSmithKline (RSV vaccine, adjuvanted, Arexvy). Immunization: RSV, RECOMBINANT, PROTEIN SUBUNIT RSVPREF3, ADJUVANT RECONSTITUTED, 0.5 ML, PF Refusal Reason: PATIENT DECISION Patient refuses all immunization(s) in the RSV group Date Documented: 09/25/24 12:06 /ZACHARIAH Rodriguez HB [facility] Signed: 09/25/2024 12:07 JENNIFER SEGURA [facility] Sep 24, 2024 03:00 PM PREVENTIVE MEDICINE NURSING NOTE: LOCAL TITLE: CLINICAL REMINDERS/NURSING STANDARD TITLE: PREVENTIVE MEDICINE NURSING NOTE DATE OF NOTE: SEP 24, 2024@15:00 ENTRY DATE: SEP 25, 2024@12:08:10 AUTHOR: JENNIFER SEGURA EXP COSIGNER: URGENCY: STATUS: COMPLETED Diagnostic Colonoscopy: (+) FIT/FOBT identified. A diagnostic Colonoscopy is due based on information available to this reminder. Patient declined diagnostic colonoscopy. Patient educated on the risks of a positive colorectal cancer screening test, the potential for colorectal cancer, and the risk of if colorectal cancer is not identified and treated early. Level of Understanding: Good DOCUMENTED IN HB PCP NOTE ON 09/12/2024 /ZACHARIAH Rodriguez [facility] [employer] Signed: 09/25/2024 12:12 JENNIFER SEGURA [facility] Sep 24, 2024 11:41 AM HB NURSING NOTE: LOCAL TITLE: HBPC RN PROGRESS NOTE STANDARD TITLE: [facility] NURSING NOTE DATE OF NOTE: SEP 24, 2024@11:41 ENTRY DATE: SEP 24, 2024@11:41:38 AUTHOR: JENNIFER SEGURA EXP COSIGNER: URGENCY: STATUS: [...] A DAY 5) CATH,EXTERNAL EXTENDED WEAR SMALL H#0002 USE 1 CATHETER ACTIVE URETHRAL ONCE DAILY [...] ACTIVE DAILY Indication: FOR CALCIUM IN URINE 13) HYDROPHILIC (EQV EUCERIN) TOP CREAM APPLY A LIBERAL AMOUNT ACTIVE TOPICALLY ONCE DAILY Indication: FOR DRY SKIN 14) HYDROXYZINE HCL 10MG TAB TAKE ONE TABLET BY MOUTH AT BEDTIME ACTIVE NEEDED FOR SLEEP Indication: INSOMNIA 15) INCONT LINER PREVAIL GUARDS #[id number] USE 1 LINER TOPICALLY ACTIVE TWO TIMES A DAY Indication: INCONTINENCE 16) INCONT LINER,MENS X-HVY SURECARE #[id number] USE 1 LINER ACTIVE TOPICALLY AT BEDTIME Indication: INCONTINENCE 17) WRAP,MALE USE 1 WRAP TOPICALLY AT BEDTIME ACTIVE Indication: INCONTINENCE 18) MELATONIN 5MG CAP/TAB TAKE THREE CAPSULE/TABLETS BY MOUTH AT ACTIVE BEDTIME Indication: FOR INSOMNIA 19) MEMANTINE HCL 10MG TAB TAKE ONE TABLET BY MOUTH TWICE DAILY ACTIVE 20) MIDODRINE HCL 5MG TAB TAKE ONE TABLET BY MOUTH THREE TIMES ACTIVE DAILY NEEDED Indication: FOR LOW BLOOD PRESSURE 21) MULTIVITAMIN/MINERALS CHEW TAB CHEW 1 TABLET BY MOUTH ONCE ACTIVE DAILY Indication: FOR VITAMIN SUPPLEMENTATION 22) MULTIVITS W/MINERALS TAB/CAP (NO VIT K) TAKE 1 TABLET BY ACTIVE MOUTH ONCE DAILY Indication: FOR VITAMIN SUPPLEMENTATION 23) NUTRITION SUPL ENSURE PLUS/VANILLA LIQ DRINK 1 CAN BY MOUTH ACTIVE THREE TIMES A DAY Indication: FOR NUTRITIONAL SUPPLEMENTATION 24) ORAL,SWAB TOOTHETTE USE 1 MOUTH SWAB DIRECTED ONCE DAILY ACTIVE TO USE WITH CHLOREHEXADINE ORAL RINSE 25) POLYETHYLENE GLYCOL 3350 ORAL PWDR TAKE 17 GRAMS(FILL CAP TO ACTIVE 17GM LINE) BY MOUTH ONCE DAILY [MIX WITH 4 TO 8OZ. OF BEVERAGE] Indication: FOR CONSTIPATION 26) RASAGILINE MESYLATE 1MG TAB TAKE ONE TABLET BY MOUTH ONCE ACTIVE DAILY 27) UNDERPAD,BED ULTRASORB 42M47FM M#3136 USE 2 UNDERPADS ACTIVE TOPICALLY AT BEDTIME Indication: INCONTINENCE 28) URINARY DRAINAGE BAG BARD #[id number] USE 1 DRAINAGE BAG EVERY 7 ACTIVE [...] in patient's home at time of visit. Wallace identified by: Full Name, Facial Recognition Length of visit in home: 60 MINUTES Problem addressed for this visit: Hematuria, urine incont, PD Specimen(s) collected during this visit: RNCM faisal blood from Right AC using 23 gauge butterfly needle on first attempt without incident. Tolerated well. Specimens dropped off at [facility] lab NURSING SUMMARY: RNCM made home visit for chronic disease management, c/v and c/p assessment, neuro assessment, labs. Wallace alert + oriented x 3 cooperative with care. Able to state month, year and president. Spouse reports having some confusion this morning. Well groomed. Dressed appropriately. Flat affect. Reports he is doing well, no complaints. No acute distress. Denies pain. PD-Speech soft and monotone, able to understand. Muscle rigidity to upper and lower extremities. Sundowning that starts early evening. No hallucinations or behavior issues at this time. Has appt with Neurologist Dr. Fabby Sun on 10/29/24. Blood pressure has been running on the lower side 98/61. Denies chest pain, palpations, dizziness. Discussed increasing fluid intake to 48 oz of water daily. Slow position changes. Abdomen soft non-tender, non-distended + bs x 4. Moving bowels every 2 days and sometimes daily. Denies blood in stool. Occult fit test positive. Denies fatigue and weakness. No pallor noted. Reviewed if experiencing the above to notify provider. Dysphagia: Diet minced and moist diet with thin liquids. eating 3 meals/day. Foods cut into very small pieces, or she purees. Fluid intake fair. Denies any choking episodes. Appetite good. Reports weight up to 186.2lbs. Spouse reports weight increased up to 190 lbs so she cut back on his snacks Too heavy to move . Hematuria: Wallace has intermittent hematuria. Spouse reports he has increased hematuria the past week and she notified urologist office and has an appt this . Describes color as light cranberry but not all the time. followed up with [facility] [employer] Sales Consultant Dr. Emil Davis last month. Spouse reports had an extreme episode of Raynaud's episode during appt- hands were completely white and MD was concerned and mentioned should have a chest CT-Scan. Spouse asking for primary to order via [place]. Discussed with spouse will request office notes to be faxed to [facility] and provider will review. Today hands normal skin tone. Cap refill <3 seconds. Hands and fingers warm to touch. Denies pain, tingling, numbness. Able to get o2 sat reading instantly. Spouse denies any rash. Reports she stopped the crystal light and no rash since. manages and administers meds. Administering meds in pudding or applesauce. Reviewed medication regimen. Spouse administering meds as directed. Med list left in home. Spouse reports received scale for Michael lift but needs [facility] PT to make home visit to put it on and teach her how to use it. Front Office Assistant canceled appt this month and rescheduled a few months out. Dermatology appt 11/15. Dental appt 10/18. Urologist appt 10/06, neurologist 10/29. Blood Pressure: 98/61 (09/24/2024 10:00) Pulse: 62 (09/24/2024 10:00) Respiration: 18 (09/24/2024 10:00) Temperature: 98.1 F [36.7 C] (09/24/2024 10:00) Pain Score: 0 (09/24/2024 10:00) EXAMINATION: Lungs: Ls clear throughout. Resp easy and reg. Edema: PPP, No edema HR: Strong and reg. Denies chest pain, palpations, dizziness. Bowel/Bladder: Incontinent of urine. Intermittent Hematuria. uses quick change urine management wrap with oversized poise pad during the day. Condom catheter at night. Spouse reports external cath that he is receiving from [facility] is not working for him. She ordered a different brand on line and that is working well. RNCM to order via [employer] if available in stock. Occasional incontinence of stool. Denies diarrhea/constipation. Skin: [...] Teaching/goals: Refer to nursing summary for teaching. Wallace goal is to live at home safely with his as long as possible with assist from his and [facility] Patient verbalizes understanding to above and will call with any concerns or changes in condition. For emergent care call 911. Plan for next visit: 10/19/24 for chronic disease management, c/v and c/p assessment, neuro assessment /consuelo SEGRUA RN BSN [facility] Signed: 09/24/2024 16:02 09/24/2024 ADDENDUM STATUS: COMPLETED Reviewed tdap and rsv vaccine due. Spouse reports Wallace [facility]. Spouse provided immunization list print out from [facility]. Spouse declines RSV vaccine indefinitely. /ZACHARIAH Rodriguez [facility] [employer] Signed: 09/24/2024 16:06 09/24/2024 ADDENDUM STATUS: COMPLETED Spouse reports received scale for Michael lift but needs [facility] PT to make home visit to put it on and teach her how to use it. /ZACHARIAH Rodriguez [facility] [employer] Signed: 09/24/2024 16:06 Receipt Acknowledged By: * AWAITING SIGNATURE * RAMIN MENDIETA 09/24/2024 ADDENDUM STATUS: COMPLETED Hematuria: Wallace has intermittent hematuria. Spouse reports he has increased hematuria the past week and she notified urologist office and Wallace has an appt this . Describes color as light cranberry but not all the time. Wallace followed up with Baby [employer] Sales Consultant Dr. Emil Davis last month. Spouse reports had an extreme episode of Raynaud's episode during appt- hands were completely white and MD was concerned and mentioned should have a chest CT-Scan. Sp[facility] Discussed with spouse will [facility] PCP will review office note. Today hands normal skin tone. Cap refill <3 seconds. Hands and fingers warm to touch. Denies pain, tingling, numbness. Able to get o2 sat reading instantly. Spouse to monitor and will report any abnormal findings. Office note faxed in right fax folder. No mention of extreme episode of Raynaud's episode during appt. Didn't mention at all. /ZACHARIAH Rodriguez [facility] [employer] Signed: 09/24/2024 16:12 Receipt Acknowledged By: * AWAITING SIGNATURE * LUIS FERNANDO FONTANEZ 09/24/2024 ADDENDUM STATUS: COMPLETED Please renew if in agreement. Thank you! OUTPT APIXABAN 5MG TAB (Status = Active) TAKE ONE TABLET BY MOUTH EVERY 12 HOURS FOR ATRIAL FIBRILLATION Rx# [id number] Last Released: 08/18/24 Qty/Days Supply: 180/90 Rx Expiration Date: 12/28/24 Refills Remainin Indication: ATRIAL FIBRILLATION /ZACHARIAH Rodriguez [facility] [employer] Signed: 09/24/2024 16:16 Receipt Acknowledged By: * AWAITING SIGNATURE * LUIS FERNANDO FONTANEZ [facility]
--- OUTSIDE RECORDS SUMMARY | 2024-10-29 13:41 | XMS_ITS | Encounter Summary ---
Author Name [facility] [place] Address [address] [place] [address] Care Team Providers Care Cardroom Manager Name Role Phone LUIS FERNANDO FONTANEZ Primary Care Provider Unavailabl e MEGAN SLAUGHTER Unavailable Unavailable CHAPUT, AMANDO Unavailable Unavailable RAIVEL, RAMIN Unavailable Unavailable FEILEN, KALYAN Unavailable Unavailable MALCOLM, DAMANIVAL Unavailable Unavailable JOSSY RIGO Unavailable Unavailable [...] PART A Jun 20, 2014 PART A [id number] EAMON OLIVIA ERT PATIENT MEDICARE (WNR) MEDICARE (M) PART B Jun 20, 2014 PART B [id number] [phone] EAMON OLIVIA ERT PATIENT MEDICARE (WNR) MEDICARE (M) PART A Jun 20, 2014 PART A [id number] [phone] EAMON OLIVIA ERT PATIENT MEDICARE (WNR) MEDICARE (M) PART B Jun 20, 2014 PART B [id number] EAMON OLIVIA ERT PATIENT [facility] RX PRESCRIPT ION RX Jun 20, 2023 THPRX [id number] [phone] EAMON OLIVIA ERT PATIENT [facility] RX PRESCRIPT ION RX Jun 20, 2022 THPRX [id number] [phone] DAVON OLIVIA JR PATIENT [facility] RX PRESCRIPT ION RX Jun 20, 2022 THPRX [id number] [phone] EAMON OLIVIA ERT PATIENT [facility] Jun 20, 2017 [id number] EAMON OLIVIA ERT PATIENT [facility] TON [facility] E Jun 20, 2017 [id number] DAVON OLIVIA JR PATIENT [facility] T[facility] E Jun 20, 2017 [id number] DAVON OLIVIA JR PATIENT [facility] USP Jun 20, 2017 [id number] EAMON OLIVIA ERT PATIENT [facility] Jun 20, 2023 [id number] [phone] EAMON OLIVIA ERT PATIENT Selected Encounter This section includes the information on record at [place] for the Encounter. 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 Date/Time Primary/Secondary Diagnosis Diagnosis Name Provider Source Jan 11, 2024 04:07 PM PRIMARY Other care home (current) drug therapy [facility] Plan of Treatment: [...] 20 appointments. The data comes from all [place] treatment facilities. Appointment Date/Time Appointment Type Appointme nt Facility Name Feb 02, 2024 03:00 PM AMBULATORY - [facility]ICIN [facility] [place] [facility] Feb 14, 2024 12:30 PM AMBULATORY - [facility] MEDICIN [facility] [place] [facility] Mar 15, 2024 10:00 AM AMBULATORY - REHAB MEDICIN E [facility] [place] [facility] Mar 22, 2024 08:00 AM AMBULATORY - MEDICINE [facility] [place] [facility] Mar 22, 2024 01:00 PM AMBULATORY - NONE [facility] [place] [facility] Mar 27, 2024 02:30 PM AMBULATORY - MEDICINE [facility] [place] [facility] Mar 29, 2024 11:00 AM AMBULATORY - REHAB MEDICIN E [facility] [place] [facility] Apr 12, 2024 11:00 AM AMBULATORY - REHAB MEDICIN E [facility] [place] [facility] Apr 26, 2024 09:00 AM AMBULATORY - MEDICINE [facility] [place] [facility] Apr 26, 2024 11:00 AM AMBULATORY - REHAB MEDICIN E [facility] [place] [facility] Jul 10, 2024 12:30 PM AMBULATORY - REHAB MEDICIN E [facility] [place] [facility] Social History: Smoking Status (Most current) and Tobacco Use (All prior to encounter date) This section includes the most current, and the historical, smoking and tobacco- related health factors from the [place] facility where the Encounter took place. Current Smoking Status This section includes the most current smoking, or tobacco-related health factor, from the [place] facility where the Encounter took place. Date/Time Current Smoking Status Shonda melchor Jan 19, 2023 12:24 PM VA-TOBACCO [facility] USED [facility] Tobacco Use History This section includes a history of the smoking, or tobacco-related health factors, that were collected on or before the date of the Encounter. The data comes from the [place] facility where the Encounter took place. Date/Time Smoking Status/Tobacco Use Comment F acility Jan 15, 2021 11:00 AM VA-TOBACCO NEVER USED [facility] Advance Directives: All historical and current Section Date Range: From patient's date of to the date document was created. This section includes ALL of a patient's completed or amended [place] Advance and Rescinded Directives. The entries below indicate that a directive exists for the patient, but an actual copy is not included with this document. The data comes from all [place] facilities. Date Advance Directives Provider Source Jan 20, 2021 ADVANCE DIRECTIVE DAVIDSHAJIBENTON SALCEDO [facility] Encounter Notes: All associated encounter notes [...] disease K21 01/19/2023October,VLAD P AF- Atrial Fibrillation ([facility] [id number] 10/05/2023 LUIS FERNANDO FONTANEZ A Parkinson's disease G20.A1 09/01/2023 LUIS FERNANDO FONTANEZ A Kidney Stone ([facility] [id number]) N20.0 01/15/2021 VIJAY CHA Alcohol (-) Tobacco [...] A DAY 14) INCONT LINER,MENS X-HVY SURECARE #[id number] USE 1 LINER HOLD TOPICALLY AT BEDTIME [...] MOUTH ACTIVE ONCE DAILY 24) UNDERPAD,BED ULTRASORB [id number] M#[id number] USE 2 UNDERPADS ACTIVE TOPICALLY AT [...] - no pharmacy med review requested - [facility] REAL ESTATE SALES MANAGER letter 11/09/23: no afib found on recent Zio monitor. No med changes - [facility] REAL ESTATE SALES MANAGER phone 11/11/23: reviewed risks/benefits on continuing apixaban despite no afib found on recent heart monitor. Per cardiology e-consult, pt may still be at high risk for TE events due to elevated CHADS2-VASc2 score of 2 - 11/17/23: approval for [facility] glycopyrolate 2mg 2-3x/day as ordered by [facility] neurology - [facility] post fall note 12/13/23: Patient hit back [...] orthostatic hypotension. 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 Could [...] incontinence and severity biannually. > Exercise/Physical Activity [id number] aerobic activity 3-5x per week. Weight or [...] 50 min /sharron/ Candice George PharmD Clinical Credit Reference Clerk Signed: 01/12/2024 11:05 Receipt Acknowledged By: 01/16/2024 15:35 /sharron/ JENNIFER SEGURA STUDENT SUCCESS COUNSELOR [facility] DIRECTOR RETAIL BRAND DEVELOPMENT 01/13/2024 09:11 /sharron/ LUIS FERNANDO CHIU HB NURSE PRACTITIONER [facility]
--- OUTSIDE RECORDS SUMMARY | 2024-10-29 13:41 | XMS_ITS ---
Author Name [facility] ([place] Organization [facility] Address [address] [place] [id number] Care Team Providers Care Transportation Driver Name Role Phone LUIS FERNANDO [...] PART B Jun 20, 2014 PART B [id number] EAMON OLIVIA ERT PATIENT MEDICARE (WNR) MEDICARE (M) PART A Jun 20, 2014 PART A [id number] EAMON OLIVIA ERT PATIENT MEDICARE (WNR) MEDICARE (M) PART A Jun 20, 2014 PART A [id number] EAMON OLIVIA ERT PATIENT MEDICARE (WNR) MEDICARE (M) PART B Jun 20, 2014 PART B [id number] EAMON OLIVIA ERT PATIENT [facility] RX PRESCRIPT ION RX Jun 20, 2023 THPRX [id number] EAMON OLIVIA ERT PATIENT [facility] RX PRESCRIPT ION RX Jun 20, 2022 THPRX [id number] [phone] DAVON OLIVIA JR PATIENT [facility] RX PRESCRIPT ION RX Jun 20, 2022 THPRX [id number] EAMON OLIVIA ERT PATIENT [facility] T[facility] MAR Jun 20, 2017 [id number] EAMON OLIVIA ERT PATIENT [facility] TON PEÑA E Jun 20, 2017 [id number] DAVON OLIVIA JR PATIENT [facility] TON PEÑA E Jun 20, 2017 [id number] DAVON LOIVIA JR PATIENT [facility] USP Jun 20, 2017 USP [id number] EAMON OLIVIA ERT PATIENT [facility] TON Jun 20, 2023 [id number] EAMON OLIVIA ERT PATIENT Selected Encounter This section includes the information on record at [place] for the Encounter. 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 Date/Time Primary/Secondary Diagnosis Diagnosis Name Provider Source May 25, 2024 02:23 PM PRIMARY Dysphagia, unspecified LUIS FERNANDO FONTANEZ [facility] [place] [facility] May 25, 2024 02:23 PM SECONDARY Basal cell carcinoma of skin, unspecified LUIS FERNANDO FONTANEZ [facility] [facility] May 25, 2024 02:23 PM SECONDARY Benign prostatic hyperplasia without lower urinry tract symp LUIS FERNANDO OFNTANEZ [facility] [place] [facility] May 25, 2024 02:23 PM SECONDARY Calculus of kidney LUIS FERNANDO FONTANEZ [facility] [place] [facility] May 25, 2024 02:23 PM SECONDARY Constipation, unspecified LUIS FERNANDO FONTANEZ [facility] [place] [facility] May 25, 2024 02:23 PM SECONDARY Disturbances of salivary secretion HUSEYINLUIS FERNANDO A [facility] [place] [facility] May 25, 2024 02:23 PM SECONDARY Essential (primary) hypertension HUSEYINLUIS FERNANDO A [place] [facility] [place] [facility] May 25, 2024 02:23 PM SECONDARY Gastro-esophageal reflux disease without esophagitis LUIS FERNANDO FONTANEZ [facility] [place] [facility] May 25, 2024 02:23 PM SECONDARY Hematuria, unspecified HUSEYINLUIS FERNANDO Ginna [place] [facility] [place] [facility] May 25, 2024 02:23 PM SECONDARY Hypotension, unspecified HUSEYINLENLUIS FERNANDO G[place]na [facility] [place] [facility] May 25, 2024 02:23 PM SECONDARY Insomnia, unspecified HUSEYINLUIS FERNANDO G[place]na [place] [facility] [place] [facility] May 25, 2024 02:23 PM SECONDARY Lobar pneumonia, unspecified organism LUIS FERNANDO FONTANEZ [facility] [place] 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 May 25, 2024 02:23 PM SECONDARY Migraine, unsp, not intractable, without status migrainosus HUSEYINLUIS FERNANDO Ginna [place] [facility] [place] [facility] May 25, 2024 02:23 PM SECONDARY Obstructive sleep apnea (adult) (pediatric) HUSEYINLUIS FERNANDO Ginna [place] [facility] [place] [facility] May 25, 2024 02:23 PM SECONDARY Other amnesia HUSEYINLENLUIS FERNANDO [place] [facility] [place] [facility] May 25, 2024 02:23 PM SECONDARY Parkinson's dis w/o dyskinesia, w/o mention of fluctuations HUSEYINLENLUIS FERNANDO [place] [facility] [place] [facility] May 25, 2024 02:23 PM SECONDARY Peripheral vascular disease, unspecified LUIS FERNANDO FONTANEZ [facility] [place] [facility] May 25, 2024 02:23 PM SECONDARY Personal history of other venous thrombosis and embolism LUIS FERNANDO FONTANEZ [facility] [place] [facility] May 25, 2024 02:23 PM SECONDARY Presence of right artificial hip joint LUIS FERNANDO FONTANEZ [facility] [place] [facility] May 25, 2024 02:23 PM SECONDARY Squamous cell carcinoma of skin, unspecified LUIS FERNANDO FONTANEZ [facility] [place] [facility] May 25, 2024 02:23 PM SECONDARY Thrombocytosis, unspecified LUIS FERNANDO FONTANEZ [facility] [place] [facility] May 25, 2024 02:23 PM SECONDARY Unspecified atrial fibrillation LUIS FERNANDO FONTANEZ [facility] [place] [facility] May 25, 2024 02:23 PM SECONDARY Unspecified atrial flutter LUIS FERNANDO FONTANEZ [facility] [place] [facility] May 25, 2024 02:23 PM SECONDARY Unspecified urinary incontinence LUIS FERNANDO FONTANEZ [facility] [place] [facility] Plan of Treatment: Future Appointments (+ 6 months) and Future Tests (+/- 45 days) The Plan of Treatment section includes future care activities for the patient [facility] [place] [facility] This section includes future appointments and future [...] 12:30 PM AMBULATORY - REHAB MEDICIN E [place] [facility] [place] [facility] Jul 17, 2024 02:00 PM AMBULATORY - REHAB MEDICIN E [place] [facility] [place] [facility] Vital Signs: All taken on the encounter date This section contains inpatient and outpatient Vital Signs collected on the date of the Encounter. Date/Time Temperature Pulse Blood Pressure Respiratory Rate SP02 Pain Height Weight Body Mass Index Source May 25, 2024 11:00 AM 97.1 54 106/62 20 99 0 [place] [facility] [place] [facility] Social History: Smoking Status (Most current) [...] Date/Time Current Smoking Status Comment Raghu ity May 25, 2024 09:30 AM VA-TOBACCO NEVER U SED CIGARETTES [facility] Tobacco Use History This section includes a history of the smoking, or tobacco-related health factors, that were collected on or before the date of the Encounter. The data comes from the [place] facility where the Encounter took place. Date/Time Smoking Status/Tobacco Use Comment F acility May 25, 2024 09:30 AM VA-TOBACCO NEVER U SED [facility] Jan 19, 2023 12:24 PM [facility] Jan 15, 2021 11:00 AM VA-TOBACCO NEVER USED [facility] Advance Directives: All historical and current [...] 20, 2021 ADVANCE DIRECTIVE [place] ARAUZ [facility] Encounter Notes: All associated encounter notes [...] Care Agent named in Durable Power of Thermocouple Tester for Health Care Name and Contact Information: Tory Olivia 'S VALUES AND GOALS OF CARE - Goals as reported by the patient (or surrogate): to keep [place] home and not in a chcf LIFE-SUSTAINING TREATMENT PLAN * In the event [...] PRACTITIONER Signed: 05/28/2024 07:15 LUIS FERNANDO FONTANEZ [place] [facility] [place] [facility] May 25, 2024 02:24 PM ADDENDUM: LOCAL TITLE: Addendum STANDARD TITLE: ADDENDUM DATE OF NOTE: MAY 25, 2024@14:24:41 ENTRY DATE: MAY 25, 2024@14:24:41 AUTHOR: LUIS FERNANDO FONTANEZ EXP COSIGNER: URGENCY: STATUS: COMPLETED would like palliative care complex hsp stay with discharge to SNF now home. /consuelo HICKEY-C [facility] NURSE PRACTITIONER Signed: 05/25/2024 14:25 Receipt Acknowledged By: 05/29/2024 13:33 /sharron/ JOSE ESPARZA RN PLANNER 06/11/2024 09:49 /sharron/ KAN KWON DO Associate wader boot top assembler, Geriatrics --- Original Document --- 05/25/24 [facility] PROVIDER ASSESSMENT: [facility] Provider Assessment Visit 73 year old [...] done but showed no acute findings. 04/16 [place] attempted to walk on his own fell [...] dysphagia on 05/01/2024 he underwent an 18 Dutch gastrostomy placement with fluoroscopic guidance under conscious sedation. reports Post op he was without his Sinemet immediate and extended release became unconscious but after he was restarted on Sinemet and his LOC improved. CT head done at this time. discharged from [facility] and transferred to [facility] for rehab. [place] discharged home from rehab on 05/21 with continued g-tube feedings. had modified barium swallow on 05/24/24 reports [...] form while in the hospital and now is DNR. Discussed palliative care vs. hospice [...] clinician's provided indication for this examination in [facility]: aspiration pneumonia. G tube requested. ? [...] septal defect. Modified Barium Swallow 05/24/24 @ [facility] Impression: Subglottic aspiration with thin barium consistency. Laryngeal penetration with the Vallecular residuals of the nectar consistency. is followed by multiple community providers NON [place] Neurology: Dr. Godfrey Doan Hsp 2017 diagnosis [facility] visit 07/19/23 Dr. Barrera NON [place] PCP: Dr. Bernadine Beyer appt today at 3pm video appt NON [place] Recruiter Coordinator Dr. Emil Davis upcoming appt 07/27/[address] Soares - pending follow up to be scheduled NON [place] Cardiology: Dr. Man Biological Technician [facility] cardiology 12/13/[address] NON [place] Orthopedist: MIRELA HUTCHISON [place] Gastroenterology: retired Dr. Jeremiah Hansen [facility]- Dr. Svitlana Hand Drug allergies: LIPITOR, [...] A DAY 5) CATH,EXTERNAL EXTENDED WEAR SMALL H#9210 USE 1 CATHETER ACTIVE URETHRAL ONCE DAILY [...] HEARTBURN 11) FEED BAG W/PUMP SET ENFIT COVID#[id number] USE 1 BAG VIA G-TUBE ACTIVE ONCE DAILY Indication: NUTRITION 12) HYDROPHILIC (EQV EUCERIN) TOP CREAM APPLY A LIBERAL AMOUNT ACTIVE (S) TOPICALLY ONCE DAILY Indication: FOR DRY SKIN 13) INCONT LINER PREVAIL GUARDS #PV-811 USE 1 LINER TOPICALLY ACTIVE TWO TIMES A DAY Indication: INCONTINENCE 14) INCONT LINER,MENS X-HVY SURECARE #[id number] USE 1 LINER ACTIVE TOPICALLY AT BEDTIME [...] MOUTH ONCE ACTIVE DAILY 25) UNDERPAD,BED ULTRASORB [id number] M#5796 USE 2 UNDERPADS ACTIVE TOPICALLY AT BEDTIME Indication: INCONTINENCE 26) URINARY DRAINAGE BAG BARD #[id number] USE 1 URINARY DRAINAGE BAG ACTIVE EVERY 7 DAYS Indication: INCONTINENCE 27) VALVE,ARCHANA ENTERAL,ICU MEDICAL #3761 USE 1 VALVE ONCE DAILY ACTIVE Indication: [...] WITH CHLOREHEXADINE ORAL RINSE 6) TAPE,MICROPORE 2IN #1530-2 USE 1 PIECE TOPICALLY ONCE PENDING DAILY NEEDED Indication: FOR TUBE FEED CONNECTION Inactive Outpatient Medications Status 1) ORAL,SWAB TOOTHETTE USE 1 MOUTH SWAB DIRECTED ONCE DAILY TO USE WITH CHLOREHEXADINE ORAL RINSE 34 Total Medications PM/SH:Problem list reviewed. Active problems - Computerized Problem List is the source for the followin. Obstructive sleep apnea 2. Nephrolithiasis CT scan at [facility] 12/2023, multiple stones, no hydronephrosis 3. Excessive salivation 4. HTN - Hypertension (SCT [id number]) 5. Constipation 6. Under care of multiple providers Dr. Shirin Pérez [facility] PCP Neurologist : Dr. Dino Doan [facility] Orthopedist: MIRELA Monahan [place] Drier And Pulverizer Tender: Dr. Ha Man 7. Exposure to potentially [...] reflux disease 31. AF- Atrial Fibrillation (SCT [id number]) followed by [facility] 32. Parkinson's disease followed by [facility] Dr. Fabby Sun Normal Swallow Evaluation 02/2024 33. Kidney Stone (SCT [id number]) RATED DISABILITIES - NONE FOUND SERVICE CONNECTED % - NONE FOUND PFSH:Cardiac elctrophysiology study with ablation X 2, colonoscopy, laser lithotripsy cystoscopy uretoscopy retrograde stent placement bilateral X 3, nasal septum surgery, Dupuytren's contracture both hands, right hip hemiarthroplasty 04/19/24 FH: Father dementia, mother Heart failure History: PERIOD OF SERVICE - [employer] FROM Jul TO Nov COMBAT SERVICE [...] results above - continue tube feeds, upcoming target worker appt next week - educated on used [...] lithotripsies, recent retrograde pyelogram on 03/26/24 at [facility] follow up with nephrology on 07/27/24 pending [...] - positive occult stool while admitted to [facility], declined colonoscopy, will repeat FIT and [...] trending down, requested peripheral smear results from [facility] showed normocystic anemia, will check repeat CBC, B12, folate, iron panel in 4 weeks. 26. Aspiration Pneumonia - resolved [place] has complex care needs and will benefit from ongoing interdisciplinary [facility] management. Treatment plan included shared decision-making and is confirmed with [place]/caregiver. All questions answered. Education provided regarding medication, including details regarding any changes. All questions answered. O2 safety addressed if applicable: Not applicable Life sustaining treatments/Goals of care conversation: LST/GOCC discussed today. see LST note Cognition: [place] has diagnosis of dementia. Education on diagnosis and supportive care needs discussed with [place]/caregiver. Counseled on importance of physical activity, healthy diet, socialization and mentally-engaging activities to optimize cognitive functioning. Functional independence: ADL assistance is needed. [facility] team to work with [place]/caregiver to maximize functional independence. This may include [...] of active outpatient prescriptions dispensed from this [place] (local) and dispensed from another [place] or [facility] facility (remote) as well as inpatient orders [...] FACILITY ALLERGY/ADR -------- CLNCL/HLTH HERBIE REPT EFF [id number] MIRTAZAPINE [facility] [place] [facility] AMOXICILLIN [...] of active outpatient prescriptions dispensed from this [place] (local) and dispensed from another [place] or [facility] facility (remote) as well as inpatient orders (local pending and active), local clinic medications, locally documented non-VA medications, and local prescriptions that have or been discontinued in the past 90 days. Non-VA Meds Last Documented On: May 06, 2023 NOTE The display of VA prescriptions dispensed from another [place] or [facility] facility (remote) is limited to active outpatient prescription entries matched to National Drug File at the originating site and may not include some items such as investigational drugs, compounds, etc. NOT INCLUDED IN THIS LIST: Medications self-entered by the patient into personal health records (i.e. [employer]) are NOT included in this list. Non-VA medications documented outside this [place], remote inpatient orders (regardless of status) and remote clinic medications are NOT included in this list. The patient and provider must always discuss medications the patient is taking, regardless of where the medication was dispensed or obtained. OUTPT APIXABAN 5MG TAB (Status = Active) TAKE ONE TABLET BY MOUTH EVERY 12 HOURS FOR ATRIAL FIBRILLATION Rx# [id number] Last Released: 04/13/24 Qty/Days Supply: 180/ Rx Expiration Date: 12/28/24 Refills Remainin Indication: ATRIAL FIBRILLATION OUTPT ARTIFICIAL SALIVA ORAL SPRAY (Status = Active) SPRAY 2 SPRAYS BY MOUTH EVERY 2 HOURS NEEDED FOR DRY MOUTH (USE DIRECTED) Rx# [id number] Last Released: 02/09/24 Qty/Days Supply: /90 Rx Expiration Date: 12/28/24 Refills Remainin Indication: FOR DRY MOUTH OUTPT BISACODYL 10MG RTL SUPP (Status = Pending) INSERT 1 SUPPOSITORY(IES) RECTALLY ONCE DAILY NEEDED FOR BOWELS - LAXATIVE Login Date: 05/25/24 Qty/Days Supply: 06/18 Refills Ordered: 0 OUTPT CARBIDOPA 25/LEVODOPA 100MG SA TAB (Status = Active) TAKE 1 TABLET BY MOUTH FOUR TIMES A DAY Rx# [id number] Last Released: 04/03/24 Qty/Days Supply: 360/ Rx Expiration Date: 12/27/24 Refills Remainin OUTPT CARBIDOPA 25/LEVODOPA 100MG TAB (Status = Active) TAKE 1 TABLET BY MOUTH FOUR TIMES A DAY Rx# [id number] Last Released: 04/17/24 Qty/Days Supply: 360/ Rx Expiration Date: 12/27/24 Refills Remainin OUTPT CHLORHEXIDINE GLUCONATE 0.12% MOUTHWASH (Status = Discontinued) RINSE 15ML BY MOUTH ONCE DAILY FOR INFLAMMATION OF THE GUMS - SWISH AND SPIT. DO NOT SWALLOW Rx# [id number] Last Released: 09/29/23 Qty/Days Supply: 473/30 Rx Expiration Date: 05/20/24 Refills Remainin Indication: FOR INFLAMMATION OF THE GUMS OUTPT CHLORHEXIDINE GLUCONATE 0.12% MOUTHWASH (Status = Active/Suspended) RINSE 15ML BY MOUTH ONCE DAILY FOR INFLAMMATION OF THE GUMS - SWISH AND SPIT. DO NOT SWALLOW Rx# [id number] Last Released: Qty/Days Supply: 47330 Rx Expiration Date: 05/26/25 Refills Remainin Indication: FOR INFLAMMATION OF THE GUMS OUTPT CHOLECALCIF 25MCG (D3-1,000UNIT) TAB (Status = Active) TAKE ONE TABLET BY MOUTH ONCE DAILY FOR VITAMIN SUPPLEMENTATION Rx# [id number] Last Released: 04/13/24 Qty/Days Supply: 90 Rx Expiration Date: 12/28/24 Refills Remainin Indication: FOR VITAMIN D DEFICIENCY OUTPT FAMOTIDINE 20MG TAB (Status = Active) TAKE ONE TABLET BY MOUTH ONCE DAILY FOR STOMACH ACID Rx# [id number] Last Released: 04/13/24 Qty/Days Supply: 90 Rx Expiration Date: 12/28/24 Refills Remainin Indication: FOR HEARTBURN OUTPT GLYCOPYRROLATE 2MG TAB (Status = Discontinued) TAKE ONE TABLET BY MOUTH DIRECTED BY PROVIDER 2-3 TIMES PER DAY NEEDED FOR SECRETIONS Rx# [id number] Last Released: 04/09/24 Qty/Days Supply: 9030 Rx Expiration Date: 05/03/24 Refills Remainin OUTPT GLYCOPYRROLATE 2MG TAB (Status = Pending) TAKE ONE TABLET BY MOUTH DIRECTED BY PROVIDER 2-3 TIMES PER DAY NEEDED FOR SECRETIONS Renewed from Rx# [id number] Qty/Days Supply: Login Date: 05/25/24 Refills Ordered: 0 OUTPT HYDROCHLOROTHIAZIDE 25MG TAB (Status = Discontinued) TAKE ONE TABLET BY MOUTH ONCE DAILY FOR HIGH BLOOD PRESSURE Rx# [id number] Last Released: 04/13/24 Qty/Days Supply: Rx Expiration Date: 12/28/24 Refills Remainin Indication: FOR HIGH BLOOD PRESSURE OUTPT HYDROCHLOROTHIAZIDE 25MG TAB (Status = Pending) TAKE ONE TABLET BY MOUTH ONCE DAILY Login Date: 05/25/24 Qty/Days Supply: Refills Ordered: 3 OUTPT HYDROPHILIC (EQV EUCERIN) TOP CREAM (Status = Discontinued) APPLY A LIBERAL AMOUNT TOPICALLY ONCE DAILY FOR DRY SKIN Rx# [id number] Last Released: 08/03/23 Qty/Days Supply: 136 Rx Expiration Date: 05/20/24 Refills Remainin Indication: FOR DRY SKIN OUTPT HYDROPHILIC (EQV EUCERIN) TOP CREAM (Status = Active/Suspended) APPLY A LIBERAL AMOUNT TOPICALLY ONCE DAILY FOR DRY SKIN Rx# [id number] Last Released: Qt/Days Supply: Rx Expiration Date: 05/26/25 Refills Remainin Indication: FOR DRY SKIN OUTPT HYDROXYZINE HCL 10MG TAB (Status = ) TAKE ONE TABLET BY MOUTH AT BEDTIME Rx# [id number] Last Released: 01/03/24 Qty/Days Supply: Rx Expiration Date: 03/26/24 Refills Remainin OUTPT HYDROXYZINE HCL 10MG TAB (Status = Discontinued) TAKE ONE TABLET BY MOUTH AT BEDTIME Rx# [id number] Last Released: 04/06/24 Qty/Days Supply: Rx Expiration Date: 07/02/24 Refills Remainin OUTPT HYDROXYZINE HCL 10MG TAB (Status = Pending) TAKE ONE TABLET BY MOUTH AT BEDTIME NEEDED has day supply please suspend Login Date: 05/25/24 Qty/Days Supply: Refills Ordered: 0 OUTPT MELATONIN 5MG CAP/TAB (Status = Active) TAKE THREE CAPSULE/TABLETS BY MOUTH AT BEDTIME FOR INSOMNIA Rx# [id number] Last Released: 04/06/24 Qty/Days Supply: 270 Rx Expiration Date: 10/26/24 Refills Remainin Indication: FOR INSOMNIA OUTPT MEMANTINE HCL 10MG TAB (Status = Discontinued) TAKE ONE TABLET BY MOUTH TWICE DAILY Rx# [id number] Last Released: 04/03/24 Qty/Days Supply: 180/ Rx Expiration Date: 12/27/24 Refills Remainin OUTPT MEMANTINE HCL 10MG TAB (Status = Active/Suspended) TAKE ONE TABLET BY MOUTH TWICE DAILY Rx# [id number] Last Released: QtDays Supply: 180 Rx Expiration Date: 04/04/25 Refills Remainin OUTPT MIDODRINE HCL 5MG TAB (Status = Discontinued) TAKE ONE TABLET BY MOUTH THREE TIMES DAILY NEEDED FOR LOW BLOOD PRESSURE Rx# [id number] Last Released: 03/31/24 Qty/Days Supply: 90 Rx Expiration Date: 05/20/24 Refills Remainin Indication: FOR LOW BLOOD PRESSURE OUTPT MIDODRINE HCL 5MG TAB (Status = Active/Suspended) TAKE ONE TABLET BY MOUTH THREE TIMES DAILY NEEDED FOR LOW BLOOD PRESSURE Rx# [id number] Last Released: QtDays Supply: 90 Rx Expiration Date: 05/26/25 Refills Remainin Indication: FOR LOW BLOOD PRESSURE OUTPT MULTIVITAMIN/MINERALS CAP/TAB (Status = Discontinued) TAKE 1 TABLET BY MOUTH ONCE DAILY FOR VITAMIN SUPPLEMENTATION Rx# [id number] Last Released: 01/27/24 Qty/Days Supply: 100/90 Rx Expiration Date: 12/28/24 Refills Remainin Indication: FOR VITAMIN SUPPLEMENTATION OUTPT MULTIVITAMIN/MINERALS LIQUID (Status = Active) TAKE 1 TABLESPOON (15ML) BY MOUTH ONCE DAILY FOR VITAMIN SUPPLEMENTATION Rx# [id number] Last Released: 04/03/24 Qty/Days Supply: 480/30 Rx Expiration Date: 03/31/25 Refills Remainin Indication: FOR VITAMIN SUPPLEMENTATION OUTPT NUTR SUPL OSMOLITE 1.2 WILLIAM LIQUID (Status = Active) USE 5 CANS VIA G-TUBE CONTINUOUSLY FOR NUTRITIONAL SUPPLEMENTATION AT 115ML PER HOUR OVERNIGHT AND FLUSH WITH 220ML WATER EVERY 8 HOURS DIRECTED Rx# [id number] Last Released: 05/23/24 Qty/Days Supply: 168/30 Rx Expiration Date: 05/19/25 Refills Remainin Indication: FOR NUTRITIONAL SUPPLEMENTATION OUTPT OATMEAL,COLLOIDAL CLEANSING BAR/DRY SKIN (Status = Active) DIRECTED TOPICALLY ONCE DAILY FOR SKIN IRRITATION Rx# [id number] Last Released: 10/13/23 Qty/Days Supply: Rx Expiration Date: 10/11/24 Refills Remainin Indication: FOR SKIN IRRITATION OUTPT POLYETHYLENE GLYCOL 3350 ORAL PWDR (Status = Discontinued) TAKE 17 GRAMS(FILL CAP TO 17GM LINE) BY MOUTH ONCE DAILY FOR CONSTIPATION [MIX WITH 4 TO 8OZ. OF BEVERAGE] Rx# [id number] Last Released: 08/05/23 Qty/Days Supply: Rx Expiration Date: 05/20/24 Refills Remainin Indication: FOR CONSTIPATION OUTPT POLYETHYLENE GLYCOL 3350 ORAL PWDR (Status = Active/Suspended) TAKE 17 GRAMS(FILL CAP TO 17GM LINE) BY MOUTH ONCE DAILY FOR CONSTIPATION [MIX WITH 4 TO 8OZ. OF BEVERAGE] Rx# [id number] Last Released: QtDays Supply: Rx Expiration Date: 05/26/25 Refills Remainin Indication: FOR CONSTIPATION OUTPT RASAGILINE MESYLATE 1MG TAB (Status = Active) TAKE ONE TABLET BY MOUTH ONCE DAILY Rx# [id number] Last Released: 04/06/24 Qty/Days Supply: Rx Expiration Date: 12/27/24 Refills Remainin SUPPLIES OUTPT CATH,EXTERNAL EXTENDED WEAR SMALL H#9206 (Status = Discontinued) USE 1 CATHETER URETHRAL ONCE DAILY Rx# [id number] Last Released: 03/01/24 Qty/Days Supply: Rx Expiration Date: 03/01/25 Refills Remainin Indication: INCONTINENCE OUTPT CATH,EXTERNAL EXTENDED WEAR SMALL H#9206 (Status = Pending) USE 1 CATHETER URETHRAL ONCE DAILY Login Date: 05/25/24 Qty/Days Supply: 90/90 Refills Ordered: 3 OUTPT DEPEND UNDERWEAR,MAXIMUM,MEN LARGE (Status = Active) USE 1 BRIEF DIRECTED THREE TIMES A DAY INCONTINENCE Rx# [id number] Last Released: 03/29/24 Qty/Days Supply: 272/90 Rx Expiration Date: 03/30/25 Refills Remainin Indication: INCONTINENCE OUTPT DIAPER ADULT LARGE EXTRA ABSORBENT (Status = Active) USE 1 BRIEF DIRECTED THREE TIMES A DAY INCONTINENCE Rx# [id number] Last Released: 10/12/23 Qty/Days Supply: 240/90 Rx Expiration Date: 10/10/24 Refills Remainin Indication: INCONTINENCE OUTPT FEED BAG W/PUMP SET ENFIT COVID#[id number] (Status = Active) USE 1 BAG VIA G-TUBE ONCE DAILY NUTRITION Rx# [id number] Last Released: 05/21/24 Qty/Days Supply: Rx Expiration Date: 05/19/25 Refills Remainin Indication: NUTRITION OUTPT GAUZE PAD 4IN X 4IN NONSTERILE (Status = Discontinued) APPLY GAUZE(S) TOPICALLY ONCE DAILY Rx# [id number] Last Released: 05/21/24 Qty/Days Supply: 200/90 Rx Expiration Date: 05/19/25 Refills Remainin Indication: NUTRITION OUTPT INCONT LINER PREVAIL GUARDS #PV-811 (Status = Active) USE 1 LINER TOPICALLY TWO TIMES A DAY Rx# [id number] Last Released: 10/12/23 Qty/Days Supply: 126/60 Rx Expiration Date: 10/10/24 Refills Remainin Indication: INCONTINENCE OUTPT INCONT LINER,MENS X-HVY SURECARE #87483M (Status = Active) USE 1 LINER TOPICALLY AT BEDTIME Rx# [id number] Last Released: 02/01/24 Qty/Days Supply: 84/84 Rx Expiration Date: 10/10/24 Refills Remainin Indication: INCONTINENCE OUTPT INCONTINENCE WRAP,MALE (Status = Active) USE 1 INCONTINENCE WRAP TOPICALLY AT BEDTIME Rx# [id number] Last Released: 10/31/23 Qty/Days Supply: 100/90 Rx Expiration Date: 10/11/24 Refills Remainin Indication: INCONTINENCE OUTPT IRRIGATING SYRINGE CATHETER TIP 50-60ML (Status = Active) USE 1 SYRINGE NEEDED NUTRITION Rx# [id number] Last Released: 05/21/24 Qty/Days Supply: Rx Expiration Date: 05/19/25 Refills Remainin Indication: NUTRITION OUTPT ORAL,SWAB TOOTHETTE (Status = ) USE 1 MOUTH SWAB DIRECTED ONCE DAILY TO USE WITH CHLOREHEXADINE ORAL RINSE Rx# [id number] Last Released: 08/05/23 Qty/Days Supply: 25090 Rx Expiration Date: 05/20/24 Refills Remainin OUTPT ORAL,SWAB TOOTHETTE (Status = Pending) USE 1 MOUTH SWAB DIRECTED ONCE DAILY TO USE WITH CHLOREHEXADINE ORAL RINSE Renewed from Rx# [id number] Qty/Days Supply: 25090 Login Date: 05/25/24 Refills Ordered: 3 OUTPT TAPE,MICROPORE 2IN #1530-2 (Status = Pending) USE 1 PIECE TOPICALLY ONCE DAILY NEEDED Login Date: 05/25/24 Qty/Days Supply: Refills Ordered: 0 OUTPT UNDERPAD,BED ULTRASORB [id number] M#3136 (Status = Active) USE 2 UNDERPADS TOPICALLY AT BEDTIME Rx# [id number] Last Released: 10/12/23 Qty/Days Supply: 200/90 Rx Expiration Date: 10/10/24 Refills Remainin Indication: INCONTINENCE OUTPT URINARY DRAINAGE BAG BARD #458918 (Status = Active) USE 1 URINARY DRAINAGE BAG EVERY 7 DAYS Rx# [id number] Last Released: 03/02/24 Qty/Days Supply: 10/15 Rx Expiration Date: 03/01/25 Refills Remainin Indication: INCONTINENCE OUTPT VALVE,ARCHANA ENTERAL,ICU MEDICAL #9000 (Status = Active) USE 1 VALVE ONCE DAILY NUTRITION Rx# [id number] Last Released: 05/22/24 Qty/Days Supply: 10/22 Rx Expiration Date: 05/19/25 Refills Remainin Indication: NUTRITION PHARMACY TERMS AND POSSIBLE PATIENT ACTIONS INPT = MA inpatient order IV = MA intravenous medication OUTPT = [facility] outpatient prescription PHARMACY POSSIBLE PATIENT TERMS EXPLANATION [...] more of this picked up at the [place] pharmacy medication. window. A prescription which is [...] the VA. Or, it may be an vdkb-xni-bxexutp (OTC), herbal, dietary supplements or sample medication. [...] An active prescription that is Contact your MA not scheduled to be filled yet. pharmacy [...] to other questions. Suicide Screen: C-SSRS Screening [place] Suicide Severity Rating Scale (C-SSRS) screener 1. [...] to other questions. /sharron/ LUIS FERNANDO FONTANEZ CLINICAL DOCUMENTATION NURSE-C [facility] NURSE PRACTITIONER Signed: 05/25/2024 14:24 Receipt Acknowledged By: 05/25/2024 17:34 /sharron/ JENNIFER SEGURA RN NICU [facility] THERMOCOUPLE TESTER 05/25/2024 ADDENDUM STATUS: COMPLETED B/P: 106/62 (05/25/2024 11:00) Pulse: 54 (05/25/2024 11:00) Temperature: 97.1 F [36.2 C] (05/25/2024 11:00) Weight: 173.6 lb [78.74 kg] (05/23/2024 12:00) Height: 65 in [165.1 cm] (04/26/2023 11:00) BMI: BMI: 28.9 Pain: 0 (05/25/2024 11:00) (0-10 scale) Pulse Ox:Measurement DT POx (L/MIN)(%) 05/25/2024 11:00 99 /sharron/ LUIS FERNANDO FONTANEZ CLINICAL DOCUMENTATION NURSE-C [facility] NURSE PRACTITIONER Signed: 05/25/2024 14:24 05/25/2024 ADDENDUM STATUS: COMPLETED Voice mail left for spouse with information on [employer] Senior Van that they can use to take to medical appointments since it's becoming more difficult to get him out of the house. Upcoming appointments are non-VA. Contact info left for her to call this expert medical writer with any questions. /sharron/ CEE REYES [facility] Ortho Rn Signed: 05/25/2024 16:05 LUIS FERNANDO FONTANEZ [place] [facility] [place] [facility] May 25, 2024 07:46 AM [facility] ATTENDING [...] Mr. Olivia is a 73 y/o male [place] with a history of Parkinson's disease, ZAC, [...] done but showed no acute findings. 04/16 [place] attempted to walk on his own fell [...] atypical platelets are present, Mild normocytic anemia. [facility] stay was complicated by dysphagia on 05/01/2024 he underwent an 18 Dutch gastrostomy placement with fluoroscopic guidance under conscious sedation. reports Post op he was without his Sinemet immediate and extended release became unconscious but after he was restarted on Sinemet and his LOC improved. CT head done at this time. discharged from [facility] and transferred to [facility] for rehab. [place] discharged home from rehab on 05/21 with continued g-tube feedings. [place] had modified barium swallow on 05/24/24 reports [...] form while in the hospital and now is DNR. Discussed palliative care vs. hospice [...] clinician's provided indication for this examination in [facility]: aspiration pneumonia. G tube requested. ? [...] clinician's provided indication for this examination in [facility]: Edema; Right Leg Pain; Swelling of [...] septal defect. Modified Barium Swallow 05/24/24 @ [facility] Impression: Subglottic aspiration with thin barium consistency. Laryngeal penetration with the Vallecular residuals of the nectar consistency. [place] is followed by multiple community providers NON [place] Neurology: Dr. Godfrey Doan Hsp 2017 diagnosis [facility] [place] visit 07/19/23 Dr. Barrera [facility] PCP: Dr. Bernadine Beyer appt today at 3pm video appt NON [place] Recruiter Coordinator Dr. Emil Davis upcoming appt 07/27/[address] Soares - pending follow up to be scheduled NON [place] Cardiology: Dr. Man Biological Technician [facility] cardiology 12/13/[address] NON [place] Orthopedist: MIRELA Santana [facility] Gastroenterology: retired Dr. Jeremiah Hansen [place] [facility]- Dr. Svitlana Hand Drug allergies: LIPITOR, [...] A DAY 5) CATH,EXTERNAL EXTENDED WEAR SMALL H#3817 USE 1 CATHETER ACTIVE URETHRAL ONCE DAILY [...] HEARTBURN 11) FEED BAG W/PUMP SET ENFIT COVID#[id number] USE 1 BAG VIA G-TUBE ACTIVE ONCE DAILY Indication: NUTRITION 12) HYDROPHILIC (EQV EUCERIN) TOP CREAM APPLY A LIBERAL AMOUNT ACTIVE (S) TOPICALLY ONCE DAILY Indication: FOR DRY SKIN 13) INCONT LINER PREVAIL GUARDS #PV-811 USE 1 LINER TOPICALLY ACTIVE TWO TIMES A DAY Indication: INCONTINENCE 14) INCONT LINER,MENS X-HVY SURECARE #18876F USE 1 LINER ACTIVE TOPICALLY AT BEDTIME [...] MOUTH ONCE ACTIVE DAILY 25) UNDERPAD,BED ULTRASORB [id number] #3136 USE 2 UNDERPADS ACTIVE TOPICALLY AT BEDTIME Indication: INCONTINENCE 26) URINARY DRAINAGE BAG BARD #411717 USE 1 URINARY DRAINAGE BAG ACTIVE EVERY [...] WITH CHLOREHEXADINE ORAL RINSE 6) TAPE,MICROPORE 2IN #1530-2 USE 1 PIECE TOPICALLY ONCE PENDING DAILY NEEDED Indication: FOR TUBE FEED CONNECTION Inactive Outpatient Medications Status 1) ORAL,SWAB TOOTHETTE USE 1 MOUTH SWAB DIRECTED ONCE DAILY TO USE WITH CHLOREHEXADINE ORAL RINSE 34 Total Medications PM/SH:Problem list reviewed. Active problems - Computerized Problem List is the source for the followin. Obstructive sleep apnea 2. Nephrolithiasis CT scan at [facility] 12/2023, multiple stones, no hydronephrosis 3. Excessive salivation 4. HTN - Hypertension (RUST [id number]) 5. Constipation 6. Under care of multiple providers Dr. Shirin Pérez [facility] PCP Neurologist : Dr. Dino Doan [facility] Orthopedist: MIRELA Monahan [place] Drier And Pulverizer Tender: Dr. Ha Man 7. Exposure to potentially [...] Gastroesophageal reflux disease 31. AF- Atrial Fibrillation (RUST [id number]) followed by [facility] 32. Parkinson's disease followed by [facility] Dr. Fabby Sun Normal Swallow Evaluation 02/2024 33. Kidney Stone (SCT [id number]) RATED DISABILITIES - NONE FOUND SERVICE CONNECTED % - NONE FOUND PFSH:Cardiac elctrophysiology study with ablation X 2, colonoscopy, laser lithotripsy cystoscopy uretoscopy retrograde stent placement bilateral X 3, nasal septum surgery, Dupuytren's contracture both hands, right hip hemiarthroplasty 04/19/24 FH: Father dementia, mother Heart failure History: PERIOD OF SERVICE - [employer] FROM Jul TO Nov COMBAT SERVICE [...] results above - continue tube feeds, upcoming target worker appt next week - educated on used [...] lithotripsies, recent retrograde pyelogram on 03/26/24 at [facility] follow up with nephrology on 07/27/24 pending [...] - positive occult stool while admitted to [facility], declined colonoscopy, will repeat FIT and [...] Thrombocytosis - last platelet count 623 on 11/20 trending down, requested peripheral smear results from [facility] showed normocystic anemia, will check repeat [...] LST/GOCC discussed today. see LST note Cognition: [place] has diagnosis of dementia. Education on diagnosis and supportive care needs discussed with [place]/caregiver. Counseled on importance of physical activity, healthy diet, socialization and mentally-engaging activities to optimize cognitive functioning. Functional independence: ADL assistance is needed. [facility] team to work with [place]/caregiver to maximize functional independence. This may include caregiver training, adaptive equipment, referral for personal care assistance. Next appointment: [facility] Provider visit every 6-12 months or as needed. Time in home: Tobacco Use Screening: The patient has never [...] this VA (local) and dispensed from another MA or DoD facility (remote) as well as [...] FACILITY ALLERGY/ADR -------- CLNCL/HLTH HERBIE REPT EFF [id number] [facility] [place] [facility] AMOXICILLIN [...] this VA (local) and dispensed from another MA or DoD facility (remote) as well as inpatient orders (local pending and active), local clinic medications, locally documented non-VA medications, and local prescriptions that have or been discontinued in the past 90 days. Non-VA Meds Last Documented On: May 06, 2023 NOTE The display of VA prescriptions dispensed from another VA or DoD facility (remote) is limited to active outpatient prescription entries matched to National Drug File at the originating site and may not include some items such as investigational drugs, compounds, etc. NOT INCLUDED IN THIS LIST: Medications self-entered by the patient into personal health records (i.e. [employer]) are NOT included in this list. Non-VA medications documented outside this MA, remote inpatient orders (regardless of status) and remote clinic medications are NOT included in this list. The patient and provider must always discuss medications the patient is taking, regardless of where the medication was dispensed or obtained. OUTPT APIXABAN 5MG TAB (Status = Active) TAKE ONE TABLET BY MOUTH EVERY 12 HOURS FOR ATRIAL FIBRILLATION Rx# [id number] Last Released: 04/13/24 Qty/Days Supply: 180/ Rx Expiration Date: 12/28/24 Refills Remainin Indication: ATRIAL FIBRILLATION OUTPT ARTIFICIAL SALIVA ORAL SPRAY (Status = Active) SPRAY 2 SPRAYS BY MOUTH EVERY 2 HOURS NEEDED FOR DRY MOUTH (USE DIRECTED) Rx# [id number] Last Released: 02/09/24 Qty/Days Supply: 720/ Rx Expiration Date: 12/28/24 Refills Remainin Indication: FOR DRY MOUTH OUTPT BISACODYL 10MG RTL SUPP (Status = Pending) INSERT 1 SUPPOSITORY(IES) RECTALLY ONCE DAILY NEEDED FOR BOWELS - LAXATIVE Login Date: 05/25/24 Qty/Days Supply: 06/18 Refills Ordered: 0 OUTPT CARBIDOPA 25/LEVODOPA 100MG SA TAB (Status = Active) TAKE 1 TABLET BY MOUTH FOUR TIMES A DAY Rx# [id number] Last Released: 04/03/24 Qty/Days Supply: 360/90 Rx Expiration Date: 12/27/24 Refills Remainin OUTPT CARBIDOPA 25/LEVODOPA 100MG TAB (Status = Active) TAKE 1 TABLET BY MOUTH FOUR TIMES A DAY Rx# [id number] Last Released: 04/17/24 Qty/Days Supply: 360/ Rx Expiration Date: 12/27/24 Refills Remainin OUTPT CHLORHEXIDINE GLUCONATE 0.12% MOUTHWASH (Status = Discontinued) RINSE 15ML BY MOUTH ONCE DAILY FOR INFLAMMATION OF THE GUMS - SWISH AND SPIT. DO NOT SWALLOW Rx# [id number] Last Released: 09/29/23 Qty/Days Supply: /30 Rx Expiration Date: 05/20/24 Refills Remainin Indication: FOR INFLAMMATION OF THE GUMS OUTPT CHLORHEXIDINE GLUCONATE 0.12% MOUTHWASH (Status = Active/Suspended) RINSE 15ML BY MOUTH ONCE DAILY FOR INFLAMMATION OF THE GUMS - SWISH AND SPIT. DO NOT SWALLOW Rx# [id number] Last Released: Qty/ Supply: Rx Expiration Date: 05/26/25 Refills Remainin Indication: FOR INFLAMMATION OF THE GUMS OUTPT CHOLECALCIF 25MCG (D3-1,000UNIT) TAB (Status = Active) TAKE ONE TABLET BY MOUTH ONCE DAILY FOR VITAMIN SUPPLEMENTATION Rx# [id number] Last Released: 04/13/24 Qty/Days Supply: Rx Expiration Date: 12/28/24 Refills Remainin Indication: FOR VITAMIN D DEFICIENCY OUTPT FAMOTIDINE 20MG TAB (Status = Active) TAKE ONE TABLET BY MOUTH ONCE DAILY FOR STOMACH ACID Rx# [id number] Last Released: 04/13/24 Qty/Days Supply: Rx Expiration Date: 12/28/24 Refills Remainin Indication: FOR HEARTBURN OUTPT GLYCOPYRROLATE 2MG TAB (Status = Discontinued) TAKE ONE TABLET BY MOUTH DIRECTED BY PROVIDER 2-3 TIMES PER DAY NEEDED FOR SECRETIONS Rx# [id number] Last Released: 04/09/24 Qty/Days Supply: Rx Expiration Date: 05/03/24 Refills Remainin OUTPT GLYCOPYRROLATE 2MG TAB (Status = Pending) TAKE ONE TABLET BY MOUTH DIRECTED BY PROVIDER 2-3 TIMES PER DAY NEEDED FOR SECRETIONS Renewed from Rx# [id number] Qt/Days Supply: Login Date: 05/25/24 Refills Ordered: 0 OUTPT HYDROCHLOROTHIAZIDE 25MG TAB (Status = Discontinued) TAKE ONE TABLET BY MOUTH ONCE DAILY FOR HIGH BLOOD PRESSURE Rx# [id number] Last Released: 04/13/24 Qty/Days Supply: Rx Expiration Date: 12/28/24 Refills Remainin Indication: FOR HIGH BLOOD PRESSURE OUTPT HYDROCHLOROTHIAZIDE 25MG TAB (Status = Pending) TAKE ONE TABLET BY MOUTH ONCE DAILY Login Date: 05/25/24 Qty/Days Supply: Refills Ordered: 3 OUTPT HYDROPHILIC (EQV EUCERIN) TOP CREAM (Status = Discontinued) APPLY A LIBERAL AMOUNT TOPICALLY ONCE DAILY FOR DRY SKIN Rx# [id number] Last Released: 08/03/23 Qty/Days Supply: 1362/ Rx Expiration Date: 05/20/24 Refills Remainin Indication: FOR DRY SKIN OUTPT HYDROPHILIC (EQV EUCERIN) TOP CREAM (Status = Active/Suspended) APPLY A LIBERAL AMOUNT TOPICALLY ONCE DAILY FOR DRY SKIN Rx# [id number] Last Released: Qt/ Supply: 1362/ Rx Expiration Date: 05/26/25 Refills Remainin Indication: FOR DRY SKIN OUTPT HYDROXYZINE HCL 10MG TAB (Status = ) TAKE ONE TABLET BY MOUTH AT BEDTIME Rx# [id number] Last Released: 01/03/24 Qty/Days Supply: 90 Rx Expiration Date: 03/26/24 Refills Remainin OUTPT HYDROXYZINE HCL 10MG TAB (Status = Discontinued) TAKE ONE TABLET BY MOUTH AT BEDTIME Rx# [id number] Last Released: 04/06/24 Qty/Days Supply: Rx Expiration Date: 07/02/24 Refills Remainin OUTPT HYDROXYZINE HCL 10MG TAB (Status = Pending) TAKE ONE TABLET BY MOUTH AT BEDTIME NEEDED has 90 day supply please suspend Login Date: 05/25/24 Qty/Days Supply: Refills Ordered: 0 OUTPT MELATONIN 5MG CAP/TAB (Status = Active) TAKE THREE CAPSULE/TABLETS BY MOUTH AT BEDTIME FOR INSOMNIA Rx# [id number] Last Released: 04/06/24 Qty/Days Supply: 270/90 Rx Expiration Date: 10/26/24 Refills Remainin Indication: FOR INSOMNIA OUTPT MEMANTINE HCL 10MG TAB (Status = Discontinued) TAKE ONE TABLET BY MOUTH TWICE DAILY Rx# [id number] Last Released: 04/03/24 Qty/Days Supply: 180/ Rx Expiration Date: 12/27/24 Refills Remainin OUTPT MEMANTINE HCL 10MG TAB (Status = Active/Suspended) TAKE ONE TABLET BY MOUTH TWICE DAILY Rx# [id number] Last Released: Qty/Days Supply: 180 Rx Expiration Date: 04/04/25 Refills Remainin OUTPT MIDODRINE HCL 5MG TAB (Status = Discontinued) TAKE ONE TABLET BY MOUTH THREE TIMES DAILY NEEDED FOR LOW BLOOD PRESSURE Rx# [id number] Last Released: 03/31/24 Qty/Days Supply: 90 Rx Expiration Date: 05/20/24 Refills Remainin Indication: FOR LOW BLOOD PRESSURE OUTPT MIDODRINE HCL 5MG TAB (Status = Active/Suspended) TAKE ONE TABLET BY MOUTH THREE TIMES DAILY NEEDED FOR LOW BLOOD PRESSURE Rx# [id number] Last Released: Supply: 90 Rx Expiration Date: 05/26/25 Refills Remainin Indication: FOR LOW BLOOD PRESSURE OUTPT MULTIVITAMIN/MINERALS CAP/TAB (Status = Discontinued) TAKE 1 TABLET BY MOUTH ONCE DAILY FOR VITAMIN SUPPLEMENTATION Rx# [id number] Last Released: 01/27/24 Qty/Days Supply: 100 Rx Expiration Date: 12/28/24 Refills Remainin Indication: FOR VITAMIN SUPPLEMENTATION OUTPT MULTIVITAMIN/MINERALS LIQUID (Status = Active) TAKE 1 TABLESPOON (15ML) BY MOUTH ONCE DAILY FOR VITAMIN SUPPLEMENTATION Rx# [id number] Last Released: 04/03/24 Qty/Days Supply: 48030 Rx Expiration Date: 03/31/25 Refills Remainin Indication: FOR VITAMIN SUPPLEMENTATION OUTPT NUTR SUPL OSMOLITE 1.2 WILLIAM LIQUID (Status = Active) USE 5 CANS VIA G-TUBE CONTINUOUSLY FOR NUTRITIONAL SUPPLEMENTATION AT 115ML PER HOUR OVERNIGHT AND FLUSH WITH 220ML WATER EVERY 8 HOURS DIRECTED Rx# [id number] Last Released: 05/23/24 Qty/Days Supply: 168 Rx Expiration Date: 05/19/25 Refills Remainin Indication: FOR NUTRITIONAL SUPPLEMENTATION OUTPT OATMEAL,COLLOIDAL CLEANSING BAR/DRY SKIN (Status = Active) DIRECTED TOPICALLY ONCE DAILY FOR SKIN IRRITATION Rx# [id number] Last Released: 10/13/23 Qty/Days Supply: Rx Expiration Date: 10/11/24 Refills Remainin Indication: FOR SKIN IRRITATION OUTPT POLYETHYLENE GLYCOL 3350 ORAL PWDR (Status = Discontinued) TAKE 17 GRAMS(FILL CAP TO 17GM LINE) BY MOUTH ONCE DAILY FOR CONSTIPATION [MIX WITH 4 TO 8OZ. OF BEVERAGE] Rx# [id number] Last Released: 08/05/23 Qty/Days Supply: Rx Expiration Date: 05/20/24 Refills Remainin Indication: FOR CONSTIPATION OUTPT POLYETHYLENE GLYCOL 3350 ORAL PWDR (Status = Active/Suspended) TAKE 17 GRAMS(FILL CAP TO 17GM LINE) BY MOUTH ONCE DAILY FOR CONSTIPATION [MIX WITH 4 TO 8OZ. OF BEVERAGE] Rx# [id number] Last Released: Qty/Days Supply: Rx Expiration Date: 05/26/25 Refills Remainin Indication: FOR CONSTIPATION OUTPT RASAGILINE MESYLATE 1MG TAB (Status = Active) TAKE ONE TABLET BY MOUTH ONCE DAILY Rx# [id number] Last Released: 04/06/24 QtDays Supply: Rx Expiration Date: 12/27/24 Refills Remainin SUPPLIES OUTPT CATH,EXTERNAL EXTENDED WEAR SMALL H#9206 (Status = Discontinued) USE 1 CATHETER URETHRAL ONCE DAILY Rx# [id number] Last Released: 03/01/24 QtyDays Supply: Rx Expiration Date: 03/01/25 Refills Remainin Indication: INCONTINENCE OUTPT CATH,EXTERNAL EXTENDED WEAR SMALL H#9206 (Status = Pending) USE 1 CATHETER URETHRAL ONCE DAILY Login Date: 05/25/24 Qty/Days Supply: Refills Ordered: 3 OUTPT DEPEND UNDERWEAR,MAXIMUM,MEN LARGE (Status = Active) USE 1 BRIEF DIRECTED THREE TIMES A DAY INCONTINENCE Rx# [id number] Last Released: 03/29/24 Qty/Days Supply: Rx Expiration Date: 03/30/25 Refills Remainin Indication: INCONTINENCE OUTPT DIAPER ADULT LARGE EXTRA ABSORBENT (Status = Active) USE 1 BRIEF DIRECTED THREE TIMES A DAY INCONTINENCE Rx# [id number] Last Released: 10/12/23 Qty/Days Supply: 240 Rx Expiration Date: 10/10/24 Refills Remainin Indication: INCONTINENCE OUTPT FEED BAG W/PUMP SET ENFIT COVID#851616 (Status = Active) USE 1 BAG VIA G-TUBE ONCE DAILY NUTRITION Rx# [id number] Last Released: 05/21/24 Qty/Days Supply: Rx Expiration Date: 05/19/25 Refills Remainin Indication: NUTRITION OUTPT GAUZE PAD 4IN X 4IN NONSTERILE (Status = Discontinued) APPLY GAUZE(S) TOPICALLY ONCE DAILY Rx# [id number] Last Released: 05/21/24 Qty/Days Supply: 200/90 Rx Expiration Date: 05/19/25 Refills Remainin Indication: NUTRITION OUTPT INCONT LINER PREVAIL GUARDS #PV-811 (Status = Active) USE 1 LINER TOPICALLY TWO TIMES A DAY Rx# [id number] Last Released: 10/12/23 Qty/Days Supply: 126/60 Rx Expiration Date: 10/10/24 Refills Remainin Indication: INCONTINENCE OUTPT INCONT LINER,MENS X-HVY SURECARE #04490V (Status = Active) USE 1 LINER TOPICALLY AT BEDTIME Rx# [id number] Last Released: 02/01/24 Qty/Days Supply: 84/84 Rx Expiration Date: 10/10/24 Refills Remainin Indication: INCONTINENCE OUTPT INCONTINENCE WRAP,MALE (Status = Active) USE 1 INCONTINENCE WRAP TOPICALLY AT BEDTIME Rx# [id number] Last Released: 10/31/23 Qty/Days Supply: 100/90 Rx Expiration Date: 10/11/24 Refills Remainin Indication: INCONTINENCE OUTPT IRRIGATING SYRINGE CATHETER TIP 50-60ML (Status = Active) USE 1 SYRINGE NEEDED NUTRITION Rx# [id number] Last Released: 05/21/24 Qty/Days Supply: Rx Expiration Date: 05/19/25 Refills Remainin Indication: NUTRITION OUTPT ORAL,SWAB TOOTHETTE (Status = ) USE 1 MOUTH SWAB DIRECTED ONCE DAILY TO USE WITH CHLOREHEXADINE ORAL RINSE Rx# [id number] Last Released: 08/05/23 Qty/Days Supply: 250/90 Rx Expiration Date: 05/20/24 Refills Remainin OUTPT ORAL,SWAB TOOTHETTE (Status = Pending) USE 1 MOUTH SWAB DIRECTED ONCE DAILY TO USE WITH CHLOREHEXADINE ORAL RINSE Renewed from Rx# [id number] Qty/Days Supply: 250/90 Login Date: 05/25/24 Refills Ordered: 3 OUTPT TAPE,MICROPORE 2IN #1530-2 (Status = Pending) USE 1 PIECE TOPICALLY ONCE DAILY NEEDED Login Date: 05/25/24 Qty/Days Supply: Refills Ordered: 0 OUTPT UNDERPAD,BED ULTRASORB [id number] M#3136 (Status = Active) USE 2 UNDERPADS TOPICALLY AT BEDTIME Rx# [id number] Last Released: 10/12/23 Qty/Days Supply: 200/ Rx Expiration Date: 10/10/24 Refills Remainin Indication: INCONTINENCE OUTPT URINARY DRAINAGE BAG BARD #586973 (Status = Active) USE 1 URINARY DRAINAGE BAG EVERY 7 DAYS Rx# [id number] Last Released: 03/02/24 Qty/Days Supply: 10/15 Rx Expiration Date: 03/01/25 Refills Remainin Indication: INCONTINENCE OUTPT VALVE,ARCHANA ENTERAL,ICU MEDICAL #9000 (Status = Active) USE 1 VALVE ONCE DAILY NUTRITION Rx# [id number] Last Released: 05/22/24 Qty/Days Supply: 10/22 Rx Expiration Date: 05/19/25 Refills Remainin Indication: NUTRITION PHARMACY TERMS AND POSSIBLE PATIENT ACTIONS INPT = [place] inpatient order IV = MA intravenous medication OUTPT = [place] outpatient prescription PHARMACY POSSIBLE PATIENT TERMS EXPLANATION ACTIONS -------- -- ACTIVE A prescription that can be If you have refills, filled at the local [place] pharmacy. you may request a refill of this prescription from your [place] pharmacy. CLINIC A medication you received during If you have questions a visit to a [place] clinic or about this medication emergency department. contact your VA healthcare team. DISCONTINUED A prescription your provider has Contact your VA stopped. It is no longer healthcare team if you available to be sent to you or need more of this picked up at the [place] pharmacy medication. window. A prescription which is [...] the VA. Or, it may be an cpfn-yia-mtbepar (OTC), herbal, dietary supplements or sample medication. [...] to other questions. Suicide Screen: C-SSRS Screening [place] Suicide Severity Rating Scale (C-SSRS) screener 1. [...] to responses to other questions. /consuelo [facility] NURSE PRACTITIONER Signed: 05/25/2024 14:24 Receipt Acknowledged By: 05/25/2024 17:34 /sharron/ JENNIFER SEGURA RN NICU [facility] THERMOCOUPLE TESTER 05/25/2024 ADDENDUM STATUS: COMPLETED B/P: 106/62 (05/25/2024 11:00) Pulse: 54 (05/25/2024 11:00) Temperature: 97.1 F [36.2 C] (05/25/2024 11:00) Weight: 173.6 lb [78.74 kg] (05/23/2024 12:00) Height: 65 in [165.1 cm] (04/26/2023 11:00) BMI: BMI: 28.9 Pain: 0 (05/25/2024 11:00) (0-10 scale) Pulse Ox:Measurement DT POx (L/MIN)(%) 05/25/2024 11:00 99 /consuelo [facility] NURSE PRACTITIONER Signed: 05/25/2024 14:24 05/25/2024 ADDENDUM STATUS: COMPLETED would like palliative care complex hsp stay with discharge to SNF now home. /consuelo DONNELLYC [facility] NURSE PRACTITIONER Signed: 05/25/2024 14:25 Receipt Acknowledged By: * AWAITING SIGNATURE * JOSE ESPARZA * AWAITING SIGNATURE * KAN KWON 05/25/2024 ADDENDUM STATUS: COMPLETED Voice mail left for spouse with information on [employer] Senior Van that they can use to take [place] to medical appointments since it's becoming more difficult to get him out of the house. Upcoming appointments are non-VA. Contact info left for her to call this expert medical writer with any questions. /sharron/ OLEG BRAVO [facility] Ortho Rn Signed: 05/25/2024 16:05 LUIS FERNANDO FONTANEZ [facility]
--- OUTSIDE RECORDS SUMMARY | 2024-10-29 13:41 | XMS_ITS | Encounter Summary ---
Author Organization [facility] Address [address] [place] [address] Phone Care Team Providers Care Director Systems Name Role Phone Shirin Mcwilliams MD Primary Care Prov ider Encounter Details Date Type Department Care Team (Late st Contact Info) Description 04/04/2024 Documentation Only [facility] [address] [place] [address] Aiyana Esteves [address] [place] [phone] Social History Tobacco Use Types Packs/Day [...] Visit [facility] Mikael Dud[address] Sienna ACOSTA [address] [place] [phone] Emil Davis MD [address] [place] [address] [place] [address] documented as of this encounter Visit Diagnoses Not on filedocumented in this encounter Care Teams Director Systems Relationship Specialty Start Date End Date Shirin Mcwilliams MD [address] [place] [phone] PCP - General 06/30/20 documented as of this encounter
--- OUTSIDE RECORDS SUMMARY | 2024-10-29 13:42 | XMS_ITS | Continuity of Care Document ---
Author Name [facility] Organization [facility] Care Team Providers Care Concrete Technician Name Role Phone [facility] Unavailable Unavailable Problems Combined list of problems from Department of Defense and Veterans Affairs facilities. It does not include entries that were removed or entered in error. Problem Status Onset Date Problem Type Date of Resolution Comments Source Hypotension Active 021 Condition Jan 27, 2023 Entered By: VLAD BENNETT Comment: Intermittent [facility] Insomnia Active 021 Condition [facility] Memory loss Active 021 Condition [facility] Sundowning Active 021 Condition [facility] Urinary incontinence Active 020 Condition [facility] Benign prostatic hyperplasia Active 018 Condition [facility] Diverticular disease of colon Active 016 Condition [facility] Internal hemorrhoids Active 016 Condition [facility] Peripheral vascular disease Active 015 Condition Jan 27, 2023 Entered By: VLAD BENNETT Comment: of Carotids- L more than Right [facility] 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 [facility] Gastroesophageal reflux disease Active 013 Condition [facility] Solitary nodule of lung Active 010 Condition Jan 27, 2023 Entered By: VLAD BENNETT Comment: 2mm-via [facility] History of deep vein thrombosis Active 005 Condition [facility] Atrial flutter Active 003 Condition [facility] Basal cell carcinoma of skin Active 980 Condition Jan 27, 2023 Entered By: VLAD BENNETT Comment: multiple sites-head, arm, neck [facility] Hematuria Active 980 Condition Jan 27, 2023 Entered By: VLAD BENNETT Comment: Intermittent [facility] Multiple renal cysts Active 980 Condition [facility] Squamous cell carcinoma of skin Active 980 Condition [facility] Dupuytren's contracture Active 970 Condition [facility] Migraine Active 970 Condition [facility] AF- Atrial Fibrillation (SCT [id number]) Active Condition Oct 05, 2023 Entered By: LUIS FERNANDO FONTANEZ Comment: followed by [facility] Benign prostatic hypertrophy Active Condition [facility] (6[facility]) Constipation Active Condition [facility] Dysphagia Active Condition [facility] Excessive salivation Active Condition [facility] Exposure to potentially hazardous substance Active Condition Aug 31, 2023 Entered By: KYLER WARREN Comment: Connect Snomed Code to ICD 10 Code refer to note dated 03/21/23 [facility] Gingivitis Active Condition [facility] History of right hip replacement Active Condition May 25, 2024 Entered By: LUIS FERNANDO FONTANEZ Comment: s/p fall 04/16 right hip hemiarthroplasty 04/19/24 [facility] HTN - Hypertension (SCT [id number]) Active Condition [facility] Long-term current use of anticoagulant Active Condition [facility] (6[facility]) Nephrolithiasis Active Condition Jan 16, 2024 Entered By: CANDICE JASMINE Comment: [place] [facility] [place], multiple stones, no hydronephrosis [place] Obstructive sleep apnea Active Condition [facility] Parkinson's disease Active Condition Sep 01, 2023 Entered By: LUIS FERNANDO FONTANEZ Comment: followed by [facility] Dr. Miguel Harper 2023 Entered By: LUIS FERNANDO FONTANEZ Comment: Normal Swallow Evaluation 02/2024 [facility] [place] Subdural hematoma Active Condition [facility] 2023 Entered By: LUIS FERNANDO FONTANEZ Comment: 07/2021 [facility] [place] Under care of multiple providers Active Condition Apr , 2 024 Entered By: LUIS FERNANDO FONTANEZ Comment: Dr. Shirin Pérez [place] [facility]PApr 2023 Entered By: LUIS FERNANDO FONTANEZ Comment: Neurologist : Dr. Dino Doan HspApr 2023 Entered By: LUIS FERNANDO FONTANEZ Comment: Orthopedist: MIRELA Monahan [place] Entered By: LUIS FERNANDO FONTANEZ Comment: Natural Developer: [facility] Ha Man [facility] [place] [facility] Diagnosis: ICD-10-CM Z04.89 Encounter for examination and observation for oth reasons Active Diagnosis [place] Diagnosis: ICD-10-CM I95.9 Hypotension, unspecified Active Diagnosis [facility] [place] [facility] Diagnosis: ICD-10-CM Z79.01 jail (current) use of anticoagulants Active Diagnosis [facility] [place] [facility] Diagnosis: ICD-10-CM G20.C Parkinsonism, unspecified Active Diagnosis [facility] [place] [facility] Diagnosis: ICD-10-CM N40.0 Benign prostatic hyperplasia without lower urinry tract symp Active Diagnosis [facility] Diagnosis: ICD-10-CM G20.A1 Parkinson's dis w/o dyskinesia, w/o mention of fluctuations Active Diagnosis [facility] [place] [facility] Diagnosis: ICD-10-CM Z79.899 Other skilled nursing (current) drug therapy Active Diagnosis [facility] [place] [facility] Diagnosis: ICD-10-CM L81.9 Disorder of pigmentation, unspecified Active Diagnosis [facility] Diagnosis: ICD-10-CM R31.9 Hematuria, unspecified Active Diagnosis [facility] Diagnosis: ICD-10-CM K62.5 Hemorrhage of anus and rectum Active Diagnosis [facility] Diagnosis: ICD-10-CM R32 Unspecified urinary incontinence Active Diagnosis [facility] Diagnosis: ICD-10-CM R21 Rash and other nonspecific skin eruption Active Diagnosis [facility] Diagnosis: ICD-10-CM R13.10 Dysphagia, unspecified Active Diagnosis [facility] Diagnosis: ICD-10-CM Z65.9 Problem related to unspecified psychosocial circumstances Active Diagnosis [facility] Diagnosis: ICD-10-CM R13.19 Other dysphagia Active Diagnosis [place] [facility] Diagnosis: ICD-10-CM Z71.89 Other specified counseling Active Diagnosis [facility] Diagnosis: ICD-10-CM R13.12 Dysphagia, oropharyngeal phase Active Diagnosis [facility] Diagnosis: ICD-10-CM Z51.81 Encounter for therapeutic drug level monitoring Active Diagnosis [place] Diagnosis: ICD-10-CM N20.0 Calculus of kidney Active Diagnosis [facility] Diagnosis: ICD-10-CM G47.33 Obstructive sleep apnea (adult) (pediatric) Active Diagnosis [facility] Diagnosis: ICD-10-CM I10 Essential (primary) hypertension Active Diagnosis [facility] Diagnosis: ICD-10-CM I48.91 Unspecified atrial fibrillation Active Diagnosis [facility] Diagnosis: ICD-10-CM I48.0 Paroxysmal atrial fibrillation Active Diagnosis [facility] Diagnosis: ICD-10-CM Z13.6 Encounter for screening for cardiovascular disorders Active Diagnosis [facility] Diagnosis: ICD-10-CM U07.1 COVID-19 Active Diagnosis [facility] Diagnosis: ICD-10-CM F39 Unspecified mood [affective] disorder Active Diagnosis [facility] Diagnosis: ICD-10-CM Z74.1 Need for assistance with personal care Active Diagnosis [facility] Diagnosis: ICD-10-CM R03.0 Elevated blood-pressure reading, w/o diagnosis of htn Active Diagnosis [facility] Medications Combined list of outpatient medications from Department of Defense and Veterans Affairs facilities.Medications provided include 1) outpatient medications from the last 15 months, and 2) patient-reported medications. Medication Details Route Status Patient Instructions Prescription Expires Prescription Number Last Dispense Date Ordering Provider Order Date Order Qty Source APIXABAN 5 MG ORAL TAB TAKE ONE TABLET BY MOUTH EVERY 12 HOURS FOR ATRIAL FIBRILLA TION 08/16/2024 [id number] CÉSAR JONES 2023 180 [facility] APIXABAN 5 MG ORAL TAB TAKE ONE TABLET BY MOUTH EVERY 12 HOURS FOR ATRIAL FIBRILLA TION 08/16/2024 [id number] 4 CÉSAR JONES 2023 180 [facility] APIXABAN 5MG TAB TAKE ONE TABLET BY MOUTH EVERY 12 HOURS FOR ATRIAL FIBRILLA TION ORAL ACTIVE 09/26/2025 [id number] 5 LEN FONTANEZ A 2024 180 [facility] APIXABAN 5MG TAB TAKE ONE TABLET BY MOUTH EVERY 12 HOURS FOR ATRIAL FIBRILLA TION ORAL DISCONT INUED 12/28/2024 [id number] 5 LEN FONTANEZ A 2023 180 [facility] APIXABAN 5MG TAB TAKE ONE TABLET BY MOUTH EVERY 12 HOURS FOR ATRIAL FIBRILLA TION ORAL DISCONT INUED 08/16/2024 [id number] Ginna JONES 2023 180 [facility] BISACODYL 10MG SUPP,RTL INSERT 1 SUPPOSIT ORY(IES) RECTALLY ONCE DAILY NEEDED FOR BOWELS - LAXATIVE RECTAL DISCONT INUED BY PROVIDE R 06/24/2024 [id number] 4 LEN FONTANEZ A 2023 12 [facility] CARBI/Levod opa CR 25-100 MG ORAL TBER TAKE 1 TABLET BY MOUTH FOUR TIMES A DAY 10/25/2024 [id number] 4 MIGUEL ESCOBAR 2023 360 [facility] CARBI/Levod opa CR 25-100 MG ORAL TBER TAKE 1 TABLET BY MOUTH ONCE DAILY Discont inued 10/19/2024 [id number] MIGUEL ESCOBAR 2023 360 [facility] CARBI/Levod opa CR 25-100 MG ORAL TBER TAKE 1 TABLET BY MOUTH THREE TIMES A DAY FOR PARKINSO N SYMPTOMS 05/20/2024 [id number] 4 CÉSAR JONES 2023 270 [facility] CARBIDOPA 25MG/LEVODO PA 100MG TAB TAKE 1 TABLET BY MOUTH FOUR TIMES A DAY ORAL ACTIVE 05/26/2025 [id number] Bindu ESCOBAR MD 2024 360 [facility] CARBIDOPA 25MG/LEVODO PA 100MG TAB TAKE 1 TABLET BY MOUTH FOUR TIMES A DAY ORAL DISCONT INUED 12/27/2024 [id number] Bindu ESCOBAR MD 2023 360 [facility] CARBIDOPA 25MG/LEVODO PA 100MG TAB TAKE 1 TABLET BY MOUTH FOUR TIMES A DAY ORAL DISCONT INUED 06/23/2024 [id number] 4 Bindu ESCOBAR MD 2023 360 [facility] CARBIDOPA 25MG/LEVODO PA 100MG TAB,SA TAKE 1 TABLET BY MOUTH FOUR TIMES A DAY ORAL ACTIVE 05/26/2025 [id number] 5 Bindu ESCOBAR MD 2024 360 [facility] CARBIDOPA 25MG/LEVODO PA 100MG TAB,SA TAKE 1 TABLET BY MOUTH FOUR TIMES A DAY ORAL DISCONT INUED 12/27/2024 [id number] Bindu ESCOBAR MD 2023 360 [facility] CARBIDOPA 25MG/LEVODO PA 100MG TAB,SA TAKE 1 TABLET BY MOUTH FOUR TIMES A DAY ORAL DISCONT INUED 10/25/2024 [id number] Bindu ESCOBAR MD 2023 360 [facility] CARBIDOPA 25MG/LEVODO PA 100MG TAB,SA TAKE 1 TABLET BY MOUTH ONCE DAILY ORAL DISCONT INUED (EDIT) 10/19/2024 [id number] 4 Bindu ESCOBAR MD 2023 360 [facility] CARBIDOPA 25MG/LEVODO PA 100MG TAB,SA TAKE 1 TABLET BY MOUTH THREE TIMES A DAY FOR PARKINSO N SYMPTOMS ORAL DISCONT INUED 05/20/2024 [id number] 4 Ginna JONES MY C 2022 270 [facility] Carbidopa/L evodopa (Parcopa) Tablet 25-100 mg Oral TAKE 1 TABLET BY MOUTH FOUR TIMES A DAY 06/23/2024 [id number] 4 MIGUEL ESCOBAR 2023 360 [facility] CHLORHEXIDI NE GLUCONATE 0.12% RINSE,ORAL RINSE 15ML BY MOUTH ONCE DAILY FOR INFLAMMA TION OF THE GUMS - SWISH AND SPIT. DO NOT SWALLOW ORAL ACTIVE 05/26/2025 [id number] 4 LEN FONTANEZ 2023 473 [facility] CHLORHEXIDI NE GLUCONATE 0.12% RINSE,ORAL RINSE 15ML BY MOUTH ONCE DAILY FOR INFLAMMA TION OF THE GUMS - SWISH AND SPIT. DO NOT SWALLOW ORAL DISCONT INUED 05/20/2024 [id number] 4 Ginna JONES MY C 2022 473 [facility] Chlorhexidi ne Gluconate, 0.12%, Mouthwash RINSE 15ML BY MOUTH ONCE DAILY FOR INFLAMMA TION OF THE GUMS - SWISH AND SPIT. DO NOT SWALLOW 05/20/2024 [id number] 4 CÉSAR JONES 2023 473 [facility] CHOLECALCIF (VIT D3) 1,000 UNIT ORAL TAB TAKE ONE TABLET BY MOUTH ONCE DAILY FOR VITAMIN SUPPLEME NTATION 05/20/2024 [id number] 4 CÉSAR JONES 2023 90 [facility] CHOLECALCIF JOYCE 25MCG (1,000UNIT) TAB TAKE ONE TABLET BY MOUTH ONCE DAILY FOR VITAMIN SUPPLEME NTATION ORAL ACTIVE 12/28/2024 [id number] 5 LEN FONTANEZ A 2023 90 [facility] CHOLECALCIF JOYCE 25MCG (1,000UNIT) TAB TAKE ONE TABLET BY MOUTH ONCE DAILY FOR VITAMIN SUPPLEME NTATION ORAL DISCONT INUED 05/20/2024 [id number] Ginna JONES C 2022 90 [facility] ENSURE PLUS LIQUID VANILLA DRINK 1 CAN BY MOUTH THREE TIMES A DAY FOR NUTRITIO NAL SUPPLEME NTATION ORAL ACTIVE 06/02/2025 [id number] 4 LEN FONTANEZ A 2023 72 [facility] famotidine (U/D) 20 MG ORAL TAB TAKE ONE TABLET BY MOUTH ONCE DAILY FOR STOMACH ACID 05/20/2024 [id number] CÉSAR JONES 2023 90 [facility] FAMOTIDINE 20MG TAB TAKE ONE TABLET BY MOUTH ONCE DAILY FOR STOMACH ACID ORAL DISCONT INUED BY BETTYE R 12/28/2024 [id number] 4 LEN FONTANEZ A 2023 90 [facility] FAMOTIDINE 20MG TAB TAKE ONE TABLET BY MOUTH ONCE DAILY FOR STOMACH ACID ORAL DISCONT INUED 05/20/2024 [id number] 4 Ginna JONES C 2022 90 [facility] GLYCOPYRROL ATE 2 MG ORAL TAB TAKE ONE TABLET BY MOUTH DIRECTED BY PROVIDER 2-3 TIMES A DAY NEEDED FOR SECRETIO NS 12/16/2023 [id number] 4 MIGUEL ESCOBAR 2023 90 [facility] GLYCOPYRROL ATE 2MG TAB TAKE ONE TABLET BY MOUTH DIRECTED BY PROVIDER 2-3 TIMES A DAY NEEDED FOR SECRETIO NS ORAL ACTIVE 05/26/2025 [id number] Bindu ESCOBAR MD 2024 270 [facility] GLYCOPYRROL ATE 2MG TAB TAKE ONE TABLET BY MOUTH DIRECTED BY PROVIDER 2-3 TIMES PER DAY NEEDED FOR SECRETIO NS ORAL DISCONT INUED BY PROVIDE R 05/03/2024 [id number] 4 Bindu ESCOBAR MD 2023 90 [facility] GLYCOPYRROL ATE 2MG TAB TAKE ONE TABLET BY MOUTH DIRECTED BY PROVIDER 2-3 TIMES PER DAY NEEDED FOR SECRETIO NS ORAL DISCONT INUED 06/24/2024 [id number] 4 LEN FONTANEZ 2023 90 [facility] GLYCOPYRROL ATE 2MG TAB TAKE ONE TABLET BY MOUTH DIRECTED BY PROVIDER 2-3 TIMES PER DAY NEEDED FOR SECRETIO NS ORAL DISCONT INUED 01/26/2024 [id number] 4 Bindu ESCOBAR MD 2023 90 [facility] GLYCOPYRROL ATE 2MG TAB TAKE ONE TABLET BY MOUTH DIRECTED BY PROVIDER 2-3 TIMES A DAY NEEDED FOR SECRETIO NS ORAL DISCONT INUED BY PROVIDE R 12/16/2023 [id number] Bindu ESCOBAR MD 2023 90 [facility] Hydrochloro thiazide (Oretic) Tablet 25 mg Oral TAKE ONE TABLET BY MOUTH ONCE DAILY FOR HIGH BLOOD PRESSURE 05/20/2024 [id number] CÉSAR JONES 2023 90 [facility] HYDROCHLORO THIAZIDE 25MG TAB TAKE ONE TABLET BY MOUTH ONCE DAILY ORAL ACTIVE 05/26/2025 [id number] 5 LEN FONTANEZ A 2024 90 [facility] HYDROCHLORO THIAZIDE 25MG TAB TAKE ONE TABLET BY MOUTH ONCE DAILY FOR HIGH BLOOD PRESSURE ORAL DISCONT INUED (EDIT) 12/28/2024 [id number] 4 LEN FONTANEZ A 2023 90 [facility] HYDROCHLORO THIAZIDE 25MG TAB TAKE ONE TABLET BY MOUTH ONCE DAILY FOR HIGH BLOOD PRESSURE ORAL DISCONT INUED 05/20/2024 [id number] Ginna JONES MY C 2022 90 [facility] HYDROPHILIC (EQV EUCERIN) CREAM,TOP APPLY A LIBERAL AMOUNT TOPICALL Y ONCE DAILY FOR DRY SKIN TOPICA L ACTIVE 05/26/2025 [id number] LEN FONTANEZ A 2023 1362 [facility] HYDROPHILIC (EQV EUCERIN) CREAM,TOP APPLY A LIBERAL AMOUNT TOPICALL Y ONCE DAILY FOR DRY SKIN TOPICA L DISCONT INUED 05/20/2024 [id number] Ginna JONES MY C 2022 1362 [facility] hydrOXYzine HCL (U/D) 10 MG ORAL TAB TAKE ONE TABLET BY MOUTH AT BEDTIME NEEDED FOR ANXIETY 05/20/2024 [id number] 4 CÉSAR JONES 2023 90 [facility] HYDROXYZINE HCL 10MG TAB TAKE ONE TABLET BY MOUTH AT BEDTIME NEEDED FOR SLEEP ORAL ACTIVE 08/31/2025 [id number] BETTY JASMINE 2024 90 [facility] HYDROXYZINE HCL 10MG TAB TAKE ONE TABLET BY MOUTH AT BEDTIME NEEDED FOR SLEEP ORAL DISCONT INUED 11/12/2024 [id number] JOSE DANIEL FELIZ 2024 90 [facility] HYDROXYZINE HCL 10MG TAB TAKE ONE TABLET BY MOUTH AT BEDTIME NEEDED FOR SLEEP ORAL DISCONT INUED 08/23/2024 [id number] 5 LEN FONTANEZ A 2024 90 [facility] HYDROXYZINE HCL 10MG TAB TAKE ONE TABLET BY MOUTH AT BEDTIME ORAL DISCONT INUED (EDIT) 07/02/2024 [id number] 4 Bindu ESCOBAR MD 2023 90 [facility] HYDROXYZINE HCL 10MG TAB TAKE ONE TABLET BY MOUTH AT BEDTIME NEEDED FOR ANXIETY ORAL DISCONT INUED 12/28/2024 [id number] 4 LEN FONTANEZ A 2023 90 [facility] HYDROXYZINE HCL 10MG TAB TAKE ONE TABLET BY MOUTH AT BEDTIME NEEDED FOR ANXIETY ORAL DISCONT INUED 05/20/2024 [id number] Ginna JONES MY C 2022 90 [facility] HYDROXYZINE HCL 10MG TAB TAKE ONE TABLET BY MOUTH AT BEDTIME ORAL 03/26/2024 [id number] Bindu ESCOBAR MD 2023 90 [facility] MELATONIN 5MG CAP/TAB TAKE FOUR CAPSULE/ TABLETS BY MOUTH AT BEDTIME FOR INSOMNIA ORAL DISCONT INUED (EDIT) 05/20/2024 [id number] 4 Ginna JONES MY C 2022 360 [facility] MELATONIN 5MG CAP/TAB TAKE THREE CAPSULE/ TABLETS BY MOUTH AT BEDTIME FOR INSOMNIA ORAL 10/26/2024 [id number] 5 LEN FONTANEZ A 2023 270 [facility] MEMANTINE HCL 10MG TAB TAKE ONE TABLET BY MOUTH TWICE DAILY ORAL ACTIVE 08/29/2025 [id number] 5 AGUSTO HERNANDEZ HANGinna 2024 180 [facility] MEMANTINE HCL 10MG TAB TAKE ONE TABLET BY MOUTH TWICE DAILY ORAL DISCONT INUED 05/26/2025 [id number] Bindu ESCOBAR MD 2024 180 [facility] MEMANTINE HCL 10MG TAB TAKE ONE TABLET BY MOUTH TWICE DAILY ORAL DISCONT INUED 04/04/2025 [id number] 5 Bindu ESCOBAR MD 2024 180 [facility] MEMANTINE HCL 10MG TAB TAKE ONE TABLET BY MOUTH TWICE DAILY ORAL DISCONT INUED 12/27/2024 [id number] 4 Bindu ESCOBAR MD 2023 180 [facility] MEMANTINE HCL 10MG TAB TAKE ONE TABLET BY MOUTH TWICE DAILY FOR ALZHEIME RS DISEASE ORAL DISCONT INUED 05/20/2024 [id number] 4 Ginna JONES C 2022 180 [facility] Memantine Hydrochlori de (Namenda Eq.) Tablet 10 mg Oral TAKE ONE TABLET BY MOUTH TWICE DAILY FOR ALZHEIME RS DISEASE 05/20/2024 [id number] CÉSAR JONES 2023 180 [facility] MIDODRINE HCL 5MG TAB TAKE ONE TABLET BY MOUTH THREE TIMES DAILY NEEDED FOR LOW BLOOD PRESSURE ORAL ACTIVE 05/26/2025 [id number] 5 LEN FONTANEZ GH A 2023 90 [facility] MIDODRINE HCL 5MG TAB TAKE ONE TABLET BY MOUTH THREE TIMES DAILY NEEDED FOR LOW BLOOD PRESSURE ORAL DISCONT INUED 05/20/2024 [id number] Ginna JONES C 2022 90 [facility] Midodrine Hydrochlori de (ProAmatine ) Tablet 5 mg Oral TAKE ONE TABLET BY MOUTH THREE TIMES DAILY NEEDED FOR LOW BLOOD PRESSURE 05/20/2024 [id number] 4 CÉSAR JONES 2023 90 [facility] MULTIVITAMI NS W/MINERALS CAP/TAB TAKE 1 TABLET BY MOUTH ONCE DAILY FOR VITAMIN SUPPLEME NTATION ORAL DISCONT INUED BY PROVIDE R 12/28/2024 [id number] LEN FONTANEZ A 2023 100 [facility] MULTIVITAMI NS W/MINERALS CAP/TAB TAKE 1 TABLET BY MOUTH ONCE DAILY FOR VITAMIN SUPPLEME NTATION FOR VITAMIN SUPPLEME NTATION ORAL DISCONT INUED 05/20/2024 [id number] 4 Ginna JONES C 2022 100 [facility] MULTIVITAMI NS/MINERALS LIQUID TAKE 1 TABLESPO ON (15ML) BY MOUTH ONCE DAILY FOR VITAMIN SUPPLEME NTATION ORAL DISCONT INUED BY PROVIDE R 03/31/2025 [id number] 4 LEN FONTANEZ A 2023 480 [facility] MULTIVITAMI NS/MINERALS TAB,CHEWABL E CHEW 1 TABLET BY MOUTH ONCE DAILY FOR VITAMIN SUPPLEME NTATION ORAL ACTIVE 11/28/2024 [id number] 5 BETTY JASMINE 2024 120 [facility] MULTIVITS W/MINERALS TAB/CAP (NO VIT K) TAKE 1 TABLET BY MOUTH ONCE DAILY FOR VITAMIN SUPPLEME NTATION ORAL DISCONT INUED BY PROVIDE R 07/04/2025 [id number] 5 HUSEYINLEN A 2024 100 [facility] OATMEAL,COL LOIDAL CLEANSING BAR/DRY SKIN DIRECTED TOPICALL Y ONCE DAILY FOR SKIN IRRITATI ON TOPICA L DISCONT INUED BY PROVIDE R 10/11/2024 [id number] 4 HUSEYINLEN Ginna 2023 6 [facility] OSMOLITE 1.2 WILLIAM LIQUID USE 5 CANS VIA G-TUBE CONTINUO USLY FOR NUTRITIO NAL SUPPLEME NTATION AT 115ML PER HOUR OVERNIGH T AND FLUSH WITH 220ML WATER EVERY 8 HOURS DIRECTED ORAL DISCONT INUED BY PROVIDE R 05/19/2025 [id number] 4 LEN FONTANEZ A 2023 168 [facility] POLYETHYLEN E GLYCOL 3350 PWDR,ORAL TAKE 17 GRAMS(FI LL CAP TO 17GM LINE) BY MOUTH ONCE DAILY FOR CONSTIPA TION [MIX WITH 4 TO 8OZ. OF [place] ] ORAL ACTIVE 05/26/2025 [id number] 4 LEN FONTANEZ A 2023 1530 [facility] POLYETHYLEN E GLYCOL 3350 PWDR,ORAL TAKE 17 GRAMS(FI LL CAP TO 17GM LINE) BY MOUTH ONCE DAILY FOR CONSTIPA TION [MIX WITH 4 TO 8OZ. OF [place] ] ORAL DISCONT INUED 05/20/2024 [id number] 4 Ginna JONES C 2022 1530 [facility] Rasagiline Mesylate (Azilect Eq.) Tablet 1 mg Oral TAKE ONE TABLET BY MOUTH ONCE DAILY FOR PARKINSO N'S DISEASE 05/20/2024 [id number] 4 CÉSAR JONES 2023 90 [facility] RASAGILINE MESYLATE 1MG TAB TAKE ONE TABLET BY MOUTH ONCE DAILY ORAL ACTIVE 05/26/2025 [id number] 5 Bindu ESCOBAR MD 2024 30 [facility] RASAGILINE MESYLATE 1MG TAB TAKE ONE TABLET BY MOUTH ONCE DAILY ORAL DISCONT INUED 05/26/2025 [id number] 5 Bindu ESCOBAR MD 2024 90 [facility] RASAGILINE MESYLATE 1MG TAB TAKE ONE TABLET BY MOUTH ONCE DAILY ORAL DISCONT INUED 12/27/2024 [id number] 4 Bindu ESCOBAR MD 2023 90 [facility] RASAGILINE MESYLATE 1MG TAB TAKE ONE TABLET BY MOUTH ONCE DAILY FOR PARKINSO N'S DISEASE ORAL DISCONT INUED 05/20/2024 [id number] 4 Ginna JONES C 2022 90 [facility] SALIVA,NAJMA FICIAL SPRAY,ORAL SPRAY 2 SPRAYS BY MOUTH EVERY 2 HOURS NEEDED FOR DRY MOUTH (USE DIRECTED ) ORAL ACTIVE 12/28/2024 [id number] 4 LEN FONTANEZ A 2023 720 [facility] SALIVA,NAJMA FICIAL SPRAY,ORAL SPRAY 2 SPRAYS BY MOUTH EVERY 2 HOURS NEEDED FOR DRY MOUTH (USE DIRECTED ) ORAL DISCONT INUED 09/02/2024 [id number] LEN FONTANEZ A 2023 [address] [facility] Allergies, Adverse Reactions, Alerts Combined list of allergies from Department of Defense and Veterans Affairs facilities. It does not include entries that were removed or entered in error. Substance Category Reaction Severity Reaction type Status Date Reported Comments Source AMOXICILLIN Drug allergy (disorder) Urticaria active 1 [facility] ATORVASTATIN Drug allergy (disorder) Rhabdomyoly sis active 1 [facility] CONTRAST MEDIA Propensity to adverse reactions to drug (finding) Urticaria active 3 [facility] ERYTHROMYCIN Drug allergy (disorder) Urticaria active 1 [facility] FLECAINIDE Propensity to adverse reactions to drug (finding) Headache MILD active 4 [facility] FLOMAX Propensity to adverse reactions to drug (finding) Oliguria active 1 [facility] LEVAQUIN Propensity to adverse reactions to drug (finding) Urticaria active 3 [facility] LIPITOR Propensity to adverse reactions to drug (finding) Rhabdomyoly sis active 1 [facility] MIRTAZAPINE Drug allergy (disorder) active 3 [facility] SEROQUEL Propensity to adverse reactions to drug (finding) Urticaria active 3 [facility] TAMSULOSIN Drug allergy (disorder) Oliguria active 1 [facility] Immunizations Combined list of available immunizations from the Department of Defense and Veterans Affairs facilities. Immunization Series Date Given Administered By Site Reaction Lot Number CVX Code Drug Classified Advertising Clerk Status Comments Source COVID-19 (MODERNA), MRNA, LNP-S, PF, 50 MCG/0.5 ML (AGES 12+ YEARS) 2023 RISING,HEATHE R L RIGHT DELTO ID [id number] 312 complet ed [facility] INFLUENZA, HIGH-DOSE, TRIVALENT, PF 2023 RISING,HEATHE R L LEFT DELTO ID [id number] 135 complet ed [facility] TDAP 2023 115 complet ed HISTORICA L INFORMATI ON - FROM OTHER PROVIDER, [facility] COVID-19 (MODERNA), MRNA, LNP-S, PF, 50 MCG/0.5 ML (AGES 12+ YEARS) 2023 RISING,HEATHE R L RIGHT DELTO ID [id number] 312 complet ed [facility] COVID-19 (MODERNA), MRNA, LNP-S, PF, 50 MCG/0.5 ML (AGES 12+ YEARS) 1 2022 LEFT DELTO ID 312 complet ed HISTORICA L INFORMATI ON - FROM PATIENT'S WRITTEN RECORD, Vet received at [facility], [place], [place] Lot#: [id number] [facility] INFLUENZA, HIGH-DOSE, QUADRIVALENT 2022 [place]IL [place]U RIGHT DELTO ID [id number] 197 complet ed [facility] COVID-19 (MODERNA), MRNA, LNP-S, BIVALENT, PF, 50 MCG/0.5 ML OR 25MCG/0.25 ML DOSE 5 2022 229 complet ed HISTORICA L INFORMATI ON - FROM PATIENT'S RECALL, Covid Card Lot#: [id number] Mfr: MODERNA [employer] [facility] COVID-19 (MODERNA), MRNA, LNP-S, PF, 100 MCG/0.5ML DOSE OR 50 MCG/0.25ML DOSE 4 2021 207 complet ed HISTORICA L INFORMATI ON - FROM PATIENT'S RECALL, Covid Card Lot#: [id number] Mfr: [employer] [facility] [place] INFLUENZA, UNSPECIFIED FORMULATION 2021 88 complet ed HISTORICA L INFORMATI ON - FROM PATIENT'S RECALL, Vet record [facility] [place] INFLUENZA, UNSPECIFIED FORMULATION 2021 88 complet ed HISTORICA L INFORMATI ON - FROM OTHER REGISTRY, Vet's record Lot#: [id number] Mfr: [employer] [facility] [place] COVID-19 (MODERNA), MRNA, LNP-S, PF, 100 MCG/0.5ML DOSE OR 50 MCG/0.25ML DOSE 3 2021 207 complet ed HISTORICA L INFORMATI ON - FROM PATIENT'S RECALL, Covid Card Lot#: [id number] Mfr: [employer] [facility] COVID-19 (MODERNA), MRNA, LNP-S, PF, 100 MCG/0.5ML DOSE OR 50 MCG/0.25ML DOSE 2 2020 207 complet ed HISTORICA L INFORMATI ON - FROM PATIENT'S RECALL, Covid Card Lot#: [id number] Mfr: [employer] [facility] TD(ADULT) UNSPECIFIED FORMULATION 2020 139 complet ed HISTORICA L INFORMATI ON - FROM PATIENT'S RECALL, Vet's record Lot#: [id number] [facility] COVID-19 (JOSE F), VECTOR-NR, [id number], PF, 0.5 ML 1 2020 212 complet ed [facility] INFLUENZA, UNSPECIFIED FORMULATION 2019 88 complet ed [facility] PNEUMOCOCCAL POLYSACCHARID E [id number] 2017 33 complet ed HISTORICA L INFORMATI ON - FROM OTHER REGISTRY, Vet's record Lot#: [id number] Mfr: [employer] [facility] [place] PNEUMOCOCCAL CONJUGATE PCV 13 2016 133 complet ed HISTORICA L INFORMATI ON - FROM OTHER REGISTRY, Vet's record Lot#: [id number] [facility] ZOSTER LIVE 2015 121 complet ed HISTORICA L INFORMATI ON - FROM PATIENT'S RECALL, Vet's record [facility] DTAP 2014 20 complet ed HISTORICA L INFORMATI ON - FROM OTHER REGISTRY, Vet's record Lot#: [id number] Mfr: [employer] [facility] Results Combined list of recent chemistry, hematology and other laboratory results from Department of Defense and Veterans Affairs, ranging from 15 months to all on record, depending upon the facility. Order Name Results Value Reference Range Date Interpretation Specimen Comments Source HEMOGLOB IN A1C PANEL HEMOGLOBIN A1C/HEMOGL OBIN.TOTAL IN BLOOD BY IF PROTOCOL 5.2 4.0 - 5.6 09/24 Specimen Type: BLOOD Comment: Values obtained from A1C measurement s can vary. For atypical A1C assays, a reported value of 7.0 could actually be between 6.72 and 7.28 if measured by a reference method. A reported value of 9.0 could actually be between 8.73 and 9.27. Ref: http://www. ngsp.org/[place] Pdata.asp Ordering Provider: LUIS FERNANDO FONTANEZ Report Released Date/Time: Sep 24, 2024 02:09 PM Reporting Lab: [facility] [place] [facility] [address] [facility] [address] Performing Lab: [facility] [address] [facility] [address] [facility] [place] [facility] LIPID PANEL, NON FASTING CHOLESTERO L [MASS/VOLU ME] IN SERUM OR PLASMA 183 mg/dL 09/24 Specimen Type: SERUM No comment entered. Ordering Provider: LUIS FERNANDO FONTANEZ Report Released Date/Time: Sep 24, 2024 11:37 AM Reporting Lab: [facility] [place] [facility] [address] [facility] [address] Performing Lab: [facility] [place] [facility] [address] [facility] [address] [facility] [place] [facility] LIPID PANEL, NON FASTING TRIGLYCERI DE [MASS/VOLU ME] IN SERUM OR PLASMA 59 mg/dL 0 - 150 09/24 Specimen Type: SERUM No comment entered. Ordering Provider: LUIS EFRNANDO FONTANEZ Report Released Date/Time: Sep 24, 2024 11:37 AM Reporting Lab: [facility] [place] [facility] [address] [facility] [address] Performing Lab: [facility] [place] [facility] [address] [facility] [address] [facility] [place] [facility] LIPID PANEL, NON FASTING CHOLESTERO L IN LDL [MASS/VOLU ME] IN SERUM OR PLASMA BY CALCMARCIA N 123 mg/dL 0 - 129 09/24 Specimen Type: SERUM No comment entered. Ordering Provider: LUIS FERNANDO FONTANEZ Report Released Date/Time: Sep 24, 2024 11:37 AM Reporting Lab: [facility] [place] [facility] [address] [facility] [address] Performing Lab: [facility] [place] [facility] [address] [facility] [address] [facility] [place] [facility] LIPID PANEL, NON FASTING CHOLESTERO L.TOTAL/CH OLESTEROL IN HDL [MASS RATIO] IN SERUM OR PLASMA 3.8 09/24 Specimen Type: SERUM No comment entered. Ordering Provider: LUIS FERNANDO FONTANEZ Report Released Date/Time: Sep 24, 2024 11:37 AM Reporting Lab: [facility] [place] [facility] [address] [facility] [address] Performing Lab: [facility] [place] [facility] [address] [facility] [address] [place] [facility] [facility] LIPID PANEL, NON FASTING CHOLESTERO L IN HDL [MASS/VOLU ME] IN SERUM OR PLASMA 48 mg/dL 40 - 60 09/24 Specimen Type: SERUM No comment entered. Ordering Provider: LUIS FERNANDO FONTANEZ Report Released Date/Time: Sep 24, 2024 11:37 AM Reporting Lab: [facility] [place] [facility] [address] [facility] [address] Performing Lab: [facility] [place] [facility] [address] [facility] [address] [facility] [place] [facility] CBC AND DIFF (AUTO) LEUKOCYTES [#/VOLUME] IN BLOOD BY AUTOMATED COUNT 6.46 10*3/uL 4.50 - 11.00 09/24 Specimen Type: BLOOD No comment entered. Ordering Provider: LUIS FERNANDO FONTANEZ Report Released Date/Time: Sep 12, 2024 12:12 PM Reporting Lab: [facility] [place] [facility] [address] [facility] [address] Performing Lab: [facility] [place] [facility] [address] [facility] [address] [facility] [place] [facility] CBC AND DIFF (AUTO) ERYTHROCYT ES [#/VOLUME] IN BLOOD BY AUTOMATED COUNT 4.67 10*6/uL 4.23 - 5.66 09/24 Specimen Type: BLOOD No comment entered. Ordering Provider: LUIS FERNANDO FONTANEZ Report Released Date/Time: Sep 12, 2024 12:12 PM Reporting Lab: [facility] [place] [facility] [address] [facility] [address] Performing Lab: [facility] [place] [facility] [address] [facility] [address] [facility] [place] [facility] CBC AND DIFF (AUTO) HEMOGLOBIN [MASS/VOLU ME] IN BLOOD 13.5 g/dL 12.8 - 17 09/24 Specimen Type: BLOOD No comment entered. Ordering Provider: LUIS FERNANDO FONTANEZ Report Released Date/Time: Sep 12, 2024 12:12 PM Reporting Lab: [facility] [place] [facility] [address] [facility] [address] Performing Lab: [facility] [place] [facility] [address] [place] [address] [facility] [place] [facility] CBC AND DIFF (AUTO) HEMATOCRIT [VOLUME FRACTION] OF BLOOD BY AUTOMATED COUNT 41.1 39.2 - 50.4 09/24 Specimen Type: BLOOD No comment entered. Ordering Provider: LUIS FERNANDO FONTANEZ Report Released Date/Time: Sep 12, 2024 12:12 PM Reporting Lab: [facility] [place] [facility] [address] [facility] [address] Performing Lab: [facility] [place] [facility] [address] [facility] [address] [facility] [place] [facility] CBC AND DIFF (AUTO) MCV [ENTITIC VOLUME] BY AUTOMATED COUNT 88.0 fL 82 - 99 09/24 Specimen Type: BLOOD No comment entered. Ordering Provider: LUIS FERNANDO FONTANEZ Report Released Date/Time: Sep 12, 2024 12:12 PM Reporting Lab: [facility] [place] [address] [address] Performing Lab: [facility] [place] [address] [address] [facility] [facility] CBC AND DIFF (AUTO) MCHC [MASS/VOLU ME] BY AUTOMATED COUNT 32.8 g/dL 30.8 - 35.1 09/24 Specimen Type: BLOOD No comment entered. Ordering Provider: LUIS FERNANDO FONTANEZ Report Released Date/Time: Sep 12, 2024 12:12 PM Reporting Lab: [facility] [place] [address] [address] Performing Lab: [facility] [place] [address] [address] [facility] [place] [facility] CBC AND DIFF (AUTO) PLATELETS [#/VOLUME] IN BLOOD BY AUTOMATED COUNT 265 10*3/uL 140 - 360 09/24 Specimen Type: BLOOD No comment entered. Ordering Provider: LUIS FERNANDO FONTANEZ Report Released Date/Time: Sep 12, 2024 12:12 PM Reporting Lab: [facility] [place] [address] [address] Performing Lab: [facility] [place] [address] [address] [facility] [place] [facility] CBC AND DIFF (AUTO) PLATELET MEAN VOLUME [ENTITIC VOLUME] IN BLOOD BY AUTOMATED COUNT 9.7 fL 9.2 - 12.4 09/24 Specimen Type: BLOOD No comment entered. Ordering Provider: LUIS FERNANDO FONTANEZ Report Released Date/Time: Sep 12, 2024 12:12 PM Reporting Lab: [facility] [place] [facility] [address] [facility] [address] Performing Lab: [facility] [place] [facility] [address] [facility] [address] [facility] [place] [facility] CBC AND DIFF (AUTO) ERYTHROCYT E DISTRIBUTI ON WIDTH [RATIO] BY AUTOMATED COUNT 14.2 12.0 - 16.0 09/24 Specimen Type: BLOOD No comment entered. Ordering Provider: LUIS FERNANDO FONTANEZ Report Released Date/Time: Sep 12, 2024 12:12 PM Reporting Lab: [facility] [place] [address] [address] Performing Lab: [facility] [place] [facility] [address] [facility] [address] [facility] [place] [facility] CBC AND DIFF (AUTO) MONOCYTES [#/VOLUME] IN BLOOD BY AUTOMATED COUNT 0.49 10*3/uL 0.30 - 1.10 09/24 Specimen Type: BLOOD No comment entered. Ordering Provider: LUIS FERNANDO FONTANEZ Report Released Date/Time: Sep 12, 2024 12:12 PM Reporting Lab: [facility] [place] [facility] [address] [facility] [address] Performing Lab: [facility] [place] [facility] [address] [facility] [address] [facility] [place] [facility] CBC AND DIFF (AUTO) MCH [ENTITIC MASS] BY AUTOMATED COUNT 28.9 pg 26.2 - 32.6 09/24 Specimen Type: BLOOD No comment entered. Ordering Provider: LUIS FERNANDO FONTANEZ Report Released Date/Time: Sep 12, 2024 12:12 PM Reporting Lab: [facility] [place] [address] [address] Performing Lab: [facility] [place] [facility] [address] [facility] [address] [facility] [place] [facility] CBC AND DIFF (AUTO) NEUTROPHIL S/100 LEUKOCYTES IN BLOOD BY AUTOMATED COUNT 65.8 43.7 - 75.8 09/24 Specimen Type: BLOOD No comment entered. Ordering Provider: LUIS FERNANDO FONTANEZ Report Released Date/Time: Sep 12, 2024 12:12 PM Reporting Lab: [facility] [place] [facility] [address] [facility] [address] Performing Lab: [facility] [place] [facility] [address] [facility] [address] [facility] [place] [facility] CBC AND DIFF (AUTO) LYMPHOCYTE S/100 LEUKOCYTES IN BLOOD BY AUTOMATED COUNT 24.0 14.0 - 42.3 09/24 Specimen Type: BLOOD No comment entered. Ordering Provider: LUIS FERNANDO FONTANEZ Report Released Date/Time: Sep 12, 2024 12:12 PM Reporting Lab: [facility] [place] [facility] [address] [facility] [address] Performing Lab: [facility] [place] [facility] [address] [facility] [address] [facility] [place] [facility] CBC AND DIFF (AUTO) MONOCYTES/ 100 LEUKOCYTES IN BLOOD BY AUTOMATED COUNT 7.6 5.1 - 13.7 09/24 Specimen Type: BLOOD No comment entered. Ordering Provider: LUIS FERNANDO FONTANEZ Report Released Date/Time: Sep 12, 2024 12:12 PM Reporting Lab: [facility] [place] [facility] [address] [facility] [address] Performing Lab: [facility] [place] [facility] [address] [facility] [address] [facility] [place] [facility] CBC AND DIFF (AUTO) EOSINOPHIL S/100 LEUKOCYTES IN BLOOD BY AUTOMATED COUNT 1.9 0.4 - 6.8 09/24 Specimen Type: BLOOD No comment entered. Ordering Provider: LUIS FERNANDO FONTANEZ Report Released Date/Time: Sep 12, 2024 12:12 PM Reporting Lab: [facility] [place] [facility] [address] [facility] [address] Performing Lab: [facility] [place] [facility] [address] [facility] [address] [facility] [place] [facility] CBC AND DIFF (AUTO) BASOPHILS/ 100 LEUKOCYTES IN BLOOD BY AUTOMATED COUNT 0.5 0.1 - 2.0 09/24 Specimen Type: BLOOD No comment entered. Ordering Provider: LUIS FERNANDO FONTANEZ Report Released Date/Time: Sep 12, 2024 12:12 PM Reporting Lab: [facility] [place] [facility] [address] [facility] [address] Performing Lab: [facility] [place] [facility] [address] [facility] [address] [facility] [place] [facility] CBC AND DIFF (AUTO) NEUTROPHIL S [#/VOLUME] IN BLOOD BY AUTOMATED COUNT 4.26 10*3/uL 2.20 - 7.60 09/24 Specimen Type: BLOOD No comment entered. Ordering Provider: LUIS FERNANDO FONTANEZ Report Released Date/Time: Sep 12, 2024 12:12 PM Reporting Lab: [facility] [place] [facility] [address] [facility] [address] Performing Lab: [facility] [place] [facility] [address] [facility] [address] [facility] [place] [facility] CBC AND DIFF (AUTO) LYMPHOCYTE S [#/VOLUME] IN BLOOD BY AUTOMATED COUNT 1.55 10*3/uL 1.00 - 3.20 09/24 Specimen Type: BLOOD No comment entered. Ordering Provider: LUIS FERNANDO FONTANEZ Report Released Date/Time: Sep 12, 2024 12:12 PM Reporting Lab: [facility] [place] [facility] [address] [facility] [address] Performing Lab: [facility] [place] [address] [address] [facility] [place] [facility] CBC AND DIFF (AUTO) EOSINOPHIL S [#/VOLUME] IN BLOOD BY AUTOMATED COUNT 0.12 10*3/uL 0.03 - 0.44 09/24 Specimen Type: BLOOD No comment entered. Ordering Provider: LUIS FERNANDO FONTANEZ Report Released Date/Time: Sep 12, 2024 12:12 PM Reporting Lab: [facility] [place] [facility] [address] [facility] [address] Performing Lab: [facility] [place] [facility] [address] [facility] [address] [facility] [place] [facility] CBC AND DIFF (AUTO) BASOPHILS [#/VOLUME] IN BLOOD BY AUTOMATED COUNT 0.03 10*3/uL 0.01 - 0.13 09/24 Specimen Type: BLOOD No comment entered. Ordering Provider: LUIS FERNANDO FONTANEZ Report Released Date/Time: Sep 12, 2024 12:12 PM Reporting Lab: [facility] [place] [facility] [address] [facility] [address] Performing Lab: [facility] [place] [address] [address] [facility] [place] [facility] CBC AND DIFF (AUTO) IMMATURE GRANULOCYT ES/100 LEUKOCYTES IN BLOOD BY AUTOMATED COUNT 0.2 0.0 - 0.7 09/24 Specimen Type: BLOOD No comment entered. Ordering Provider: LUIS FERNANDO FONTANEZ Report Released Date/Time: Sep 12, 2024 12:12 PM Reporting Lab: [facility] [place] [address] [address] Performing Lab: [facility] [place] [address] [address] [facility] [place] [facility] CBC AND DIFF (AUTO) IMMATURE GRANULOCYT ES [#/VOLUME] IN BLOOD BY AUTOMATED COUNT 0.01 10*3/uL 0.00 - 0.06 09/24 Specimen Type: BLOOD No comment entered. Ordering Provider: LUIS FERNANDO FONTANEZ Report Released Date/Time: Sep 12, 2024 12:12 PM Reporting Lab: [facility] [place] [facility] [address] [facility] [address] Performing Lab: [facility] [place] [address] [address] [facility] [place] [facility] CBC AND DIFF (AUTO) NUCLEATED ERYTHROCYT ES/100 LEUKOCYTES [RATIO] IN BLOOD BY AUTOMATED COUNT 0.0 0.0 - 0.0 09/24 Specimen Type: BLOOD No comment entered. Ordering Provider: LUIS FERNANDO FONTANEZ Report Released Date/Time: Sep 12, 2024 12:12 PM Reporting Lab: [facility] [address] [facility] [address] Performing Lab: [facility] [address] [facility] [address] [facility] CBC AND DIFF (AUTO) NUCLEATED ERYTHROCYT ES [#/VOLUME] IN BLOOD BY AUTOMATED COUNT 0.00 10*3/uL 0.00 - 0.00 09/24 Specimen Type: BLOOD No comment entered. Ordering Provider: LUIS FERNANDO FONTANEZ Report Released Date/Time: Sep 12, 2024 12:12 PM Reporting Lab: [facility] [address] [address] Performing Lab: [facility] [address] [facility] OCCULT BLOOD FIT X1 SCREEN(I N-HOUSE) HEMOGLOBIN .GASTROINT ESTINAL.LO WER [PRESENCE] IN STOOL BY IMMUNOASSA Y POSITIVE 09/05 Specimen Type: FECES No comment entered. Ordering Provider: LUIS FERNANDO FONTANEZ Report Released Date/Time: May 25, 2024 10:38 AM Reporting Lab: [facility] [address] [address] Performing Lab: [facility] [address] [facility] PTH INTACT PARATHYRIN .INTACT [MASS/VOLU ME] IN SERUM OR PLASMA 34.0 pg/mL 8.7 - 77.1 07/03 Specimen Type: SERUM No comment entered. Ordering Provider: LUIS FERNANDO FONTANEZ Report Released Date/Time: Jun 18, 2024 08:46 AM Reporting Lab: [facility] [address] Performing Lab: [facility] [place] [facility] [address] [facility] [address] [facility] [place] [facility] FOLATE (WROX) FOLATE [MASS/VOLU ME] IN SERUM OR PLASMA 8.8 ng/mL 5.2 07/03 Specimen Type: SERUM No comment entered. Ordering Provider: LUIS FERNANDO FONTANEZ Report Released Date/Time: May 25, 2024 08:50 AM Reporting Lab: [facility] [place] [facility] [address] [facility] [address] Performing Lab: [facility] [place] [facility] [address] [facility] [address] [facility]RL TRN [place] [facility] BASIC METABOLI C PANEL (non-fas ting) UREA NITROGEN [MASS/VOLU ME] IN SERUM OR PLASMA 15 mg/dL 7 - 25 07/03 Specimen Type: SERUM No comment entered. Ordering Provider: LUIS FERNANDO FONTANEZ Report Released Date/Time: May 25, 2024 08:50 AM Reporting Lab: [facility]N [place] [facility] [address] [facility] [address] Performing Lab: [place] [facility] [place] [facility] [address] [facility] [address] [facility]RL TRN [facility] BASIC METABOLI C PANEL (non-fas ting) GLUCOSE [MASS/VOLU ME] IN SERUM OR PLASMA 80 mg/dL 65 - 100 07/03 Specimen Type: SERUM No comment entered. Ordering Provider: LUIS FERNANDO FONTANEZ Report Released Date/Time: May 25, 2024 08:50 AM Reporting Lab: [facility] [place] [facility] [address] [facility] [address] Performing Lab: [place] [facility] [place] [facility] [address] [facility] [address] [facility] HOSPITALRRMC [facility] HOSPITALTRN [facility]ENTERCHUSE [facility] BASIC METABOLI C PANEL (non-fas ting) SODIUM [MOLES/VOL UME] IN SERUM OR PLASMA 138 mmol/L 135 - 145 07/03 Specimen Type: SERUM No comment entered. Ordering Provider: LUIS FERNANDO FONTANEZ A Report Released Date/Time: May 25, 2024 08:50 AM Reporting Lab: [facility] [place] [facility] [address] [facility] [address] Performing Lab: [facility] [place] [facility] [address] [facility] [address] [facility] [place] [facility] BASIC METABOLI C PANEL (non-fas ting) POTASSIUM [MOLES/VOL UME] IN SERUM OR PLASMA 3.5 mmol/L 3.5 - 5.0 07/03 Specimen Type: SERUM No comment entered. Ordering Provider: LUIS FERNANDO FONTANEZ Report Released Date/Time: May 25, 2024 08:50 AM Reporting Lab: [facility] [place] [facility] [address] [facility] [address] Performing Lab: [facility] [place] [address] [address] [facility] BASIC METABOLI C PANEL (non-fas ting) CHLORIDE [MOLES/VOL UME] IN SERUM OR PLASMA 101 mmol/L 100 - 110 07/03 Specimen Type: SERUM No comment entered. Ordering Provider: LUIS FERNANDO FONTANEZ Report Released Date/Time: May 25, 2024 08:50 AM Reporting Lab: [facility] [place] [facility] [address] [facility] [address] Performing Lab: [facility] [place] [address] [address] [facility] BASIC METABOLI C PANEL (non-fas ting) CARBON DIOXIDE, TOTAL [MOLES/VOL UME] IN SERUM OR PLASMA 28 meq/L 20 - 30 07/03 Specimen Type: SERUM No comment entered. Ordering Provider: LUIS FERNANDO FONTANEZ Report Released Date/Time: May 25, 2024 08:50 AM Reporting Lab: [facility] [place] [facility] [address] [facility] [address] Performing Lab: [facility] [place] [address] [address] [facility] BASIC METABOLI C PANEL (non-fas ting) CREATININE [MASS/VOLU ME] IN SERUM OR PLASMA 0.88 mg/dL 0.50 - 1.40 07/03 Specimen Type: SERUM No comment entered. Ordering Provider: LUIS FERNANDO FONTANEZ Report Released Date/Time: May 25, 2024 08:50 AM Reporting Lab: [facility] [place] [address] [address] Performing Lab: [facility] [place] [address] [address] [facility] BASIC METABOLI C PANEL (non-fas ting) GLOMERULAR FILTRATION RATE/1.73 SQ M.PREDICTE D [VOLUME RATE/AREA] IN SERUM, PLASMA OR BLOOD BY CREATININE -BASED FORMULA (CKD-EPI 2020) 90 mL/min 60 07/03 Specimen Type: SERUM No comment entered. Ordering Provider: LUIS FERNANDO FONTANEZ Report Released Date/Time: May 25, 2024 08:50 AM Reporting Lab: [facility] [place] [address] [address] Performing Lab: [facility] [place] [address] [address] [facility] [place] MAGNESIU M MAGNESIUM [MASS/VOLU ME] IN SERUM OR PLASMA 1.9 mg/dL 1.6 - 2.6 07/03 Specimen Type: SERUM No comment entered. Ordering Provider: LUIS FERNANDO FONTANEZ Report Released Date/Time: May 25, 2024 08:50 AM Reporting Lab: [facility] [place] [address] [address] Performing Lab: [facility] [place] [address] [address] [facility] [place] [facility] LIVER FUNCTION PROTEIN [MASS/VOLU ME] IN SERUM OR PLASMA 7.0 g/dL 6.0 - 8.3 07/03 Specimen Type: SERUM No comment entered. Ordering Provider: LUIS FERNANDO FONTANEZ Report Released Date/Time: May 25, 2024 08:50 AM Reporting Lab: [facility] [address] [address] Performing Lab: [facility] [address] [facility] [address] [facility] LIVER FUNCTION ALBUMIN [MASS/VOLU ME] IN SERUM OR PLASMA 3.5 g/dL 3.5 - 5.0 07/03 Specimen Type: SERUM No comment entered. Ordering Provider: LUIS FERNANDO FONTANEZ Report Released Date/Time: May 25, 2024 08:50 AM Reporting Lab: [facility] [address] [facility] [address] Performing Lab: [facility] [address] [facility] [address] [facility] LIVER FUNCTION ALKALINE PHOSPHATAS E [ENZYMATIC ACTIVITY/V OLUME] IN SERUM OR PLASMA 93 U/L 40 - 150 07/03 Specimen Type: SERUM No comment entered. Ordering Provider: LUIS FERNANDO FONTANEZ Report Released Date/Time: May 25, 2024 08:50 AM Reporting Lab: [facility] [address] [facility] [address] Performing Lab: [facility] [address] [facility] [address] [facility] LIVER FUNCTION ASPARTATE AMINOTRANS FERASE [ENZYMATIC ACTIVITY/V OLUME] IN SERUM OR PLASMA 19 U/L 5 - 34 07/03 Specimen Type: SERUM No comment entered. Ordering Provider: LUIS FERNANDO FONTANEZ Report Released Date/Time: May 25, 2024 08:50 AM Reporting Lab: [facility] [address] [facility] [address] Performing Lab: [facility] [address] [facility] [address] [facility] LIVER FUNCTION ALANINE AMINOTRANS FERASE [ENZYMATIC ACTIVITY/V OLUME] IN SERUM OR PLASMA 7 U/L 07/03 Specimen Type: SERUM No comment entered. Ordering Provider: LUIS FERNANDO FONTANEZ Report Released Date/Time: May 25, 2024 08:50 AM Reporting Lab: [facility] [address] [facility] [address] Performing Lab: [facility] [address] [facility] [address] [facility] LIVER FUNCTION BILIRUBIN. TOTAL [MASS/VOLU ME] IN SERUM OR PLASMA 0.3 mg/dL 0.2 - 1.2 07/03 Specimen Type: SERUM No comment entered. Ordering Provider: LUIS FERNANDO FONTANEZ Report Released Date/Time: May 25, 2024 08:50 AM Reporting Lab: [facility] [address] [facility] [address] Performing Lab: [facility] [address] [facility] [address] [facility] VITAMIN B12 COBALAMIN (VITAMIN B12) [MASS/VOLU ME] IN SERUM OR PLASMA 435 pg/mL 200 - 900 07/03 Specimen Type: SERUM No comment entered. Ordering Provider: LUIS FERNANDO FONTANEZ Report Released Date/Time: May 25, 2024 08:50 AM Reporting Lab: [facility] [address] [facility] [address] Performing Lab: [facility] [address] [facility] [address] [facility] Vital Signs Combined list of inpatient and outpatient Vital Signs from Department of Defense and Veterans Affairs, ranging from 12 months to all on record, depending upon the facility. Vital Sign Value Date Comments Source SYSTOLIC BLOOD PRESSURE 95 10/17/19 25 10:45:00 [facility] DIASTOLIC BLOOD PRESSURE 62 025 10:45:00 [facility] PULSE OXIMETRY 98 10/16/2024 10:45:00 [facility] PAIN 0 10/16/2024 10:45:00 [facility] TEMPERATURE 98.3 10/16/2024 10:45:00 [facility] PULSE 59 10/16/2024 10:45:00 [facility] RESPIRATION 16 10/16/2024 10:45:00 [facility] WEIGHT 191.4 09/26/2024 10:15:00 [facility] BMI 32 kg/m2 09/26/2024 10:15:00 [facility] SYSTOLIC BLOOD PRESSURE 98 09/25/19 25 10:00:00 [facility] DIASTOLIC BLOOD PRESSURE 61 025 10:00:00 [facility] PULSE OXIMETRY 96 09/24/2024 10:00:00 [facility] WEIGHT 186.2 09/24/2024 10:00:00 [facility] BMI 31 kg/m2 09/24/2024 10:00:00 [facility] PAIN 0 09/24/2024 10:00:00 [facility] TEMPERATURE 98.1 09/24/2024 10:00:00 [facility] PULSE 62 09/24/2024 10:00:00 [facility] RESPIRATION 18 09/24/2024 10:00:00 [facility] SYSTOLIC BLOOD PRESSURE 100 08/29/19 25 10:15:00 [facility] DIASTOLIC BLOOD PRESSURE 64 025 10:15:00 [facility] PULSE OXIMETRY 96 08/28/2024 10:15:00 [facility] WEIGHT 186.3 08/28/2024 10:15:00 [facility] BMI 31 kg/m2 08/28/2024 10:15:00 [facility] PAIN 0 08/28/2024 10:15:00 [facility] TEMPERATURE 98 08/28/2024 10:15:00 [facility] PULSE 61 08/28/2024 10:15:00 [facility] RESPIRATION 18 08/28/2024 10:15:00 [facility] SYSTOLIC BLOOD PRESSURE 104 08/15/19 25 11:25:00 [facility] DIASTOLIC BLOOD PRESSURE 60 025 11:25:00 [facility] PULSE OXIMETRY 97 08/15/2024 11:25:00 [facility] PAIN 0 08/15/2024 11:25:00 [facility] TEMPERATURE 97.8 08/15/2024 11:25:00 [facility] PULSE 60 08/15/2024 11:25:00 [facility] RESPIRATION 18 08/15/2024 11:25:00 [facility] Encounters Combined list of: 1) Encounters from Department of Veterans Affairs facilities going backup to the last 18 months, not all VA inpatient encounters are included; 2) Encounters from the Department of Defense facilities going backup to 280 months. Location Location Details Encounter Type Encounter Number Reason For Visit Attending Provider ADM Date DC Date Status Disposition Source [facility] Outpatient Encounter [id number] 05/02 [facility] HHCP-SERV OF PT,EA 15 MIN [id number] Diagnos is: ICD-10- CM G20.C Nancy onism, unspeci fied RAFREDI KEYES RY 05/04 [facility] DIG ASSMT&MGMT 21+ [id number] Diagnos is: ICD-10- CM Z79.899 Other skilled nursing (curren t) drug therapy KOSOFSKY,J ESSICA 05/04 [facility] Outpatient Encounter [id number] 05/05 [facility] HHCP-SERV OF PT,EA 15 MIN [id number] Diagnos is: ICD-10- CM G20.C Nancy onism, unspeci fied RARADHAFREDI Clarke RY 05/17 [facility] CASE MANAGEMENT [id number] Diagnos is: ICD-10- CM Z65.9 Problem related to unspeci fied psychos ocial circums KVNG Taylor RR WINTER 05/18 [facility] Outpatient Encounter [id number] Diagnos is: ICD-10- CM G20.C Nancy onism, unspeci fied ROBERT,AM Y C 05/20 [facility] [place] Q[place] DIG ASSMT&MGMT 21+ [id number] Diagnos is: ICD-10- CM Z51.81 Encount er for therape utic drug level monitor JASIEL Webb A 05/23 [place] Q[place] OL DIG ASSMT&MGMT 5-10 [id number] Diagnos is: ICD-10- CM Z51.81 Encount er for therape utic drug level monitor JASIEL Webb A 05/23 [place] [facility] QNHP OL DIG ASSMT&MGMT 21+ [id number] Diagnos is: ICD-10- CM Z04.89 Encount er for examina tion and observa tion for oth reasons Joie GEORGE ESSICA 05/23 [facility] [place] QNHP OL DIG ASSMT&MGMT 5-10 [id number] Diagnos is: ICD-10- CM Z51.81 Encount er for therape utic drug level monitor harvey PICHARDOJASIEL A 05/24 [place] [facility] SELF CARE MNGMENT TRAINING [id number] Diagnos is: ICD-10- CM G20.C Nancy onism, unspeci fied RISING,HEA THER L 05/24 [facility] [place] Q[place] OL DIG ASSMT&MGMT 5-10 [id number] Diagnos is: ICD-10- CM Z04.89 Encount er for examina tion and observa tion for oth reasons CHAS,FOUZIA IE 05/25 [facility] [place] [facility] SELF CARE MNGMENT TRAINING [id number] Diagnos is: ICD-10- CM R03.0 Elevate d blood-p ressure reading , w/o diagnos is of htn RISING,HEA THER L 05/26 [facility] (6[facility] HC PRO PHONE CALL 11-20 MIN [id number] Diagnos is: ICD-10- CM Z51.81 Encount er for therape utic drug level monitor harvey MOE,CINDY ISTINE F 05/27 [facility] ([facility] Outpatient Encounter [id number] 05/30 [facility] HC PRO PHONE CALL 21-30 MIN [id number] Diagnos is: ICD-10- CM Z74.1 Need for assista nce with persona l care EDDIE ,CRYSTALL SAM 05/31 [facility] HHCP-SERV OF PT,EA 15 MIN [id number] Diagnos is: ICD-10- CM G20.C Nancy onism, unspeci fied RAIVEL,KER RY 05/31 [facility] CASE MANAGEMENT [id number] Diagnos is: ICD-10- CM Z65.9 Problem related to unspeci fied psychos ocial circums KVNG Taylor WINTER 06/01 [facility] Outpatient Encounter [id number] 06/01 [facility] HC PRO PHONE CALL 11-20 MIN [id number] Diagnos is: ICD-10- CM Z74.1 Need for assista nce with persona l care EDDIE ,CRYSTALL SAM 06/01 [facility] HHCP-SERV OF PT,EA 15 MIN [id number] Diagnos is: ICD-10- CM G20.C Nancy onism, unspeci fied RAIVEL,KER RY 06/21 [facility] Out[facility] En[facility] [id number] 06/22 [facility] Out[facility] Encounter [id number] 06/23 [facility] SELF CARE MNGMENT TRAINING [id number] Diagnos is: ICD-10- CM G20.C Nancy onism, unspeci fied RISING,HEA THER L 06/27 [facility] CASE MANAGEMENT [id number] Diagnos is: ICD-10- CM Z65.9 Problem related to unspeci fied psychos ocial circums KVNG Taylor RR WINTER 07/15 [facility] PSYCH DIAG EVAL W/MED SRVCS [id number] Diagnos is: ICD-10- CM F39 Unspeci fied mood [affect radha] disorde bindu STORY MA RC P 07/19 [place] [facility] Outpatient Encounter [id number] 07/19 [facility] Outpatient Encounter [id number] 07/22 [facility] Outpatient Encounter [id number] 07/28 [facility] QNHP OL DIG ASSMT&MGMT 21+ [id number] Diagnos is: ICD-10- CM 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 Joie GEORGE 07/28 [facility] SELF CARE MNGMENT TRAINING [id number] Diagnos is: ICD-10- CM G20.C Nancy onism, unspeci fied RISING,HEA THER L 08/02 [facility] Out[facility] En[facility] [id number] 08/03 [facility] En[facility] [id number] 08/03 [facility] Out[facility] Encounter [id number] 08/04 [facility] Out[facility] Encounter [id number] 08/18 [facility] CASE MANAGEMENT [id number] Diagnos is: ICD-10- CM Z65.9 Problem related to unspeci fied psychos ocial circums KVNG Taylor RR WINTER 08/22 [facility] ADMN SARSCOV2 VACC 1 DOSE [id number] Diagnos is: ICD-10- CM G20.C Nancy onism, unspeci fied RISING,HEA THER L 08/30 [facility] Out[facility] En[facility] [id number] 08/31 [facility] En[facility] [id number] 08/31 [facility] HHCP-SERV OF PT,EA 15 MIN [id number] Diagnos is: ICD-10- CM G20.C Nancy onism, unspeci fied RAIVEL,KER RY 09/04 [facility] Out[facility] Encounter [id number] 09/13 [facility] Encounter [id number] 09/14 [facility] Encounter [id number] 09/19 [facility] HC PRO PHONE CALL 11-20 MIN [id number] Diagnos is: ICD-10- CM U07.1 COVID-1 9 RISING,HEA THER L 09/28 [facility] HHCP-SERV OF PT,EA 15 MIN [id number] Diagnos is: ICD-10- CM G20.C Nancy onism, unspeci fied RAIVEL,KER RY 10/03 [facility] Out[facility] Encounter [id number] 10/09 [facility] Out[facility] Encounter [id number] Diagnos is: ICD-10- CM Z79.01 jail (curren t) use of anticoa gulanKALPESH Watson H Ginna 10/09 [facility] Out[facility] Encounter [id number] 10/10 [facility] ([facility]) QNHP OL DIG ASSMT&MGMT 5-10 [id number] Diagnos is: ICD-10- CM G20.C Nancy onism, unspeci fied DARLENE ALEGRE ERT CHIDI 10/11 [facility] (6[facility] (6[facility]) QNHP OL DIG ASSMT&MGMT 5-10 [id number] Diagnos is: ICD-10- CM G20.A1 Nancy on's dis w/o dyskine angelika, w/o mention of fluctua tions DARLENE ALEGRE ERT CHIDI 10/11 [facility] ELECTROCAR DIOGRAM TRACING [id number] Diagnos is: ICD-10- CM I48.0 Paroxys mal atrial fibrill ation PEÑA GLORIA MY 10/16 [facility] [facility] ELECTROCAR DIOGRAM REPORT [id number] Diagnos is: ICD-10- CM Z13.6 Encount er for screeni ng for cardiov ascular disorde rs PATEL,PAR UL U 10/16 [facility] EXT ECG>7D<15D RECORDING [id number] Diagnos is: ICD-10- CM I48.0 Paroxys mal atrial fibrill ation PEÑA GLORIA MY 10/16 [facility] Outpatient Encounter [id number] 10/18 [facility] QNHP OL DIG ASSMT&MGMT 21+ [id number] Diagnos is: ICD-10- CM Z79.899 Other skilled nursing (curren t) drug therapy Joie GEORGE 10/18 [facility] Outpatient Encounter [id number] 10/19 [facility] CASE MANAGEMENT [id number] Diagnos is: ICD-10- CM Z65.9 Problem related to unspeci fied psychos ocial circums KVNG Taylor RR WINTER 10/20 [facility] Outpatient Encounter [id number] 10/20 [facility] SELF CARE MNGMENT TRAINING [id number] Diagnos is: ICD-10- CM G20.A1 Nancy on's dis w/o dyskine angelika, w/o mention of fluctua tions RISING,HEA THER L 10/24 [facility] Outpatient Encounter [id number] 10/24 [facility] Outpatient Encounter [id number] 10/25 [facility] HHCP-SERV OF PT,EA 15 MIN [id number] Diagnos is: ICD-10- CM G20.C Nancy onism, unspeci fied RAIVEL,KER RY 10/31 [facility] Outpatient Encounter [id number] Diagnos is: ICD-10- CM Z04.89 Encount er for examina tion and observa tion for oth reasons CATHIE MAGANA 11/08 [facility] Outpatient Encounter [id number] Diagnos is: ICD-10- CM I48.91 Unspeci fied atrial fibrill ation JADBABAIE, FARID 11/09 [facility] HC PRO PHONE CALL 5-10 MIN [id number] Diagnos is: ICD-10- CM R31.9 Hematur ia, unspeci fied RISING,HEA THER L 11/09 [facility] Outpatient Encounter [id number] Diagnos is: ICD-10- CM 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 KALPESH FONTANEZ H A 11/09 [facility] QNHP OL DIG ASSMT&MGMT 5-10 [id number] Diagnos is: ICD-10- CM G20.A1 Nancy on's dis w/o dyskine angelika, w/o mention of fluctua tions USTA,RIZA 11/16 [facility] Outpatient Encounter [id number] 11/20 [facility] SELF CARE MNGMENT TRAINING [id number] Diagnos is: ICD-10- CM G20.C Nancy onism, unspeci fied RISING,HEA THER L 11/27 [facility] HHCP-SERV OF PT,EA 15 MIN [id number] Diagnos is: ICD-10- CM G20.C Nancy onism, unspeci fied RAIVEL,KER RY 12/12 [facility] HC PRO PHONE CALL 11-20 MIN [id number] Diagnos is: ICD-10- CM Z71.89 Other specifi ed senior counsel KVNG Millan 12/15 [facility] Out[facility] Encounter [id number] 12/18 [facility] SELF CARE MNGMENT TRAINING [id number] Diagnos is: ICD-10- CM G20.C Nancy onism, unspeci fied RISING,HEA THER L 12/26 [facility] SELF-MGMT EDUC & TRAIN 1 PT [id number] Diagnos is: ICD-10- CM G47.33 Obstruc tive sleep apnea (adult) (pediat lindsey) ABBY OSCAR 01/03 [facility] Out[facility] Encounter [id number]/08 [facility] QNHP OL DIG ASSMT&MGMT 21+ [id number] Diagnos is: ICD-10- CM Z79.899 Other skilled nursing (curren t) drug therapy Joie GEORGE 01/10 [facility] Out[facility] Encounter [id number] 01/11 [facility] En[facility] [id number]/15 [facility] SLEEP STUDY UNATT&RESP EFFT [id number] Diagnos is: ICD-10- CM G47.33 Obstruc tive sleep apnea (adult) ([facility]) ABBY OSCAR LINDSEY 01/15 [facility] Outpatient Encounter [id number] 01/18 [facility] WOUND(S) CARE NON-SELECT RADHA [id number] Diagnos is: ICD-10- CM G20.A1 Nancy on's dis w/o dyskine angelika, w/o mention of fluctua tions RISING,HEA THER L 01/22 [facility] Outpatient Encounter [id number] 01/22 [place] [facility] SLEEP STUDY UNATT&RESP EFFT [id number] Diagnos is: ICD-10- CM G47.33 Obstruc tive sleep apnea (adult) ([facility]) CURIOSO-UY ,ANTONINA 01/23 [facility] HHCP-SERV OF PT,EA 15 MIN [id number] Diagnos is: ICD-10- CM G20.C Nancy onism, unspeci fied RAFREDI KEYES RY 02/09 [facility] EVALUATE SWALLOWING FUNCTION [id number] Diagnos is: ICD-10- CM R13.12 Dysphag ia, orophar yngeal phase MALOU,S ARAH 02/13 [facility] Outpatient Encounter [id number] 02/21 [facility] SELF CARE MNGMENT TRAINING [id number] Diagnos is: ICD-10- CM I10 Essenti al (primar y) hyperte nsion RISING,HEA THER L 02/27 [facility] Outpatient Encounter [id number] 1.02/27 [facility] Outpatient Encounter [id number] 1. SCOTT TOUSSAINT PORFIRIO 02/27 [facility] [place] QNHP OL DIG ASSMT&MGMT 5-10 [id number] Diagnos is: ICD-10- CM R32 Unspeci fied urinary inconti nence CHAS,FOUZIA IE 02/28 [place] QNHP OL DIG ASSMT&MGMT 5-10 [id number] Diagnos is: ICD-10- CM R32 Unspeci fied urinary inconti nence CHAS,FOUZIA IE 02/28 [place] [facility] Outpatient Encounter [id number] 1.03/08 [facility] HHCP-SERV OF PT,EA 15 MIN [id number] 1. Diagnos is: ICD-10- CM G20.C Nancy onism, unspeci fied RAIVEL,KER RY 03/08 [place] [facility] [place] ORAL FUNCTION THERAPY [id number] Diagnos is: ICD-10- CM G20.C Nancy onism, unspeci fied MALOU,S ARAH 03/15 [facility] Outpatient Encounter [id number] 03/16 [facility] Outpatient Encounter [id number] 03/20 [facility] HC PRO PHONE CALL 11-20 MIN [id number] Diagnos is: ICD-10- CM R31.9 Hematur ia, unspeci fied RISING,HEA THER L 03/22 [facility] PATIENT EDUCATION MATERIALS [id number] Diagnos is: ICD-10- CM G47.33 Obstruc tive sleep apnea (adult) ([facility]) THOMASSAMREEN ALFONSO 03/22 [facility] Outpatient Encounter [id number] 1.03/22 [facility] ADMN SARSCOV2 VACC 1 DOSE [id number] Diagnos is: ICD-10- CM N20.0 Calculu s of kidney RISING,HEA THER L 03/28 [facility] Q[facility] OL DIG ASSMT&MGMT 5-10 [id number] 1GF. 70 Diagnos is: ICD-10- CM Z04.89 Encount er for examina tion and observa tion for oth reasons FARHAD LI ISPADMA J 03/29 [facility] Outpatient Encounter [id number] 1.03/29 [facility] SPEECH/HEA RING THERAPY [id number] Diagnos is: ICD-10- CM G20.C Nancy onism, unspeci fied MALOU,S ARAH 03/29 [facility] Out[facility] Encounter [id number] 04/04 [facility] QNHP OL DIG ASSMT&MGMT 21+ [id number] Diagnos is: ICD-10- CM Z79.899 Other skilled nursing (curren t) drug therapy Joie GEORGE 04/04 [facility] Outpatient Encounter [id number] 1.04/05 [facility] [place] QNHP OL DIG ASSMT&MGMT 5-10 [id number] Diagnos is: ICD-10- CM Z51.81 Encount er for therape utic drug level monitor JASIEL Webb 04/10 [facility] SPEECH/HEA RING THERAPY [id number] 1QA. 66 Diagnos is: ICD-10- CM R13.12 Dysphag ia, orophar yngeal phase MALOU,S ARAH 04/12 [facility] Out[facility] Encounter [id number] [facility] En[facility] [id number]/17 [facility] Encounter [id number] [facility] HC PRO PHONE CALL 5-10 MIN [id number] Diagnos is: ICD-10- CM Z71.89 Other specifi ed senior counsel KVNG Millan SATISH WINTER 04/23 [facility] En[facility] [id number] 04/25 [facility] Outpatient Encounter [id number] 1QA. 96 04/26 [facility] Out[facility] Encounter [id number] 05/03 [facility] Encounter [id number] 05/04 [facility] Encounter [id number] 05/07 [facility] Out[facility] Encounter [id number] 05/07 [facility] Out[facility] Encounter [id number] 05/10 [facility] Encounter [id number] 1.05/16 [facility] Q[facility]P OL DIG ASSMT&MGMT 5-10 [id number] 1GF. 69 Diagnos is: ICD-10- CM G20.C Nancy onism, unspeci fiFARHAD Franco 05/21 [facility] [place] QNHP OL DIG ASSMT&MGMT 5-10 [id number] 1BY. 32 Diagnos is: ICD-10- CM R13.19 Other dysphag ia PICHARDO,IZ ABELA A 05/21 [place] [facility] HC PRO PHONE CALL 11-20 MIN [id number] 1. Diagnos is: ICD-10- CM R13.10 Dysphag ia, unspeci fied RISING,HEA THER L 05/21 [facility] Out[facility] En[facility] [id number] 05/22 [facility] HHCP-SERV OF PT,EA 15 MIN [id number] Diagnos is: ICD-10- CM G20.C Nancy onism, unspeci fied RAIVEL,KER RY 05/22 [facility] SELF CARE MNGMENT TRAINING [id number] 1. Diagnos is: ICD-10- CM G20.C Nancy onism, unspeci fied RISING,HEA THER L 05/23 [facility] Out[facility] Encounter [id number] 05/23 [facility] Out[facility] Encounter [id number] 05/24 [facility] Out[facility] Encounter [id number] 05/24 [facility] Encounter [id number] 05/25 [facility] Out[facility] Encounter [id number] Diagnos is: ICD-10- CM R13.10 Dysphag ia, unspeci fied KALPESH FONTANEZ H A 05/25 [facility] Outpatient Encounter [id number] 1.05/25 [facility] HHCP-SERV OF PT,EA 15 MIN [id number] 1. Diagnos is: ICD-10- CM G20.C Nancy onism, unspeci fied RAIVEL,KER RY 05/29 [facility] SELF CARE MNGMENT TRAINING [id number] 1. Diagnos is: ICD-10- CM R13.10 Dysphag ia, unspeci fied RISING,HEA THER L 06/04 [facility] HHCP-SERV OF PT,EA 15 MIN [id number] 1. Diagnos is: ICD-10- CM G20.C Nancy onism, unspeci fied RAIVEL,KER RY 06/04 [facility] CASE MANAGEMENT [id number] 1. Diagnos is: ICD-10- CM Z65.9 Problem related to unspeci fied psychos ocial circums KVNG Taylor WINTER 06/06 [facility] Outpatient Encounter [id number] Diagnos is: ICD-10- CM R13.10 Dysphag ia, unspeci fied KALPESH FONTANEZ A 06/18 [facility] HHCP-SERV OF PT,EA 15 MIN [id number] Diagnos is: ICD-10- CM G20.C Nancy onism, unspeci fied RAIVEL,KER RY 06/19 [facility] Outpatient Encounter [id number] [facility] MEASURE BLOOD OXYGEN LEVEL [id number] Diagnos is: ICD-10- CM R13.10 Dysphag ia, unspeci fied RISING,HEA THER L 07/03 [facility] OFF/OP CNSLTJ NEW/EST MOD 40 [id number] Diagnos is: ICD-10- CM R13.10 Dysphag ia, unspeci fied ABUNDIO KWON M 07/04 [facility] NQHP OL DIG ASSMT&MGMT 21+ [id number] Diagnos is: ICD-10- CM 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 Joie GEORGE 07/04 [facility] Outpatient Encounter [id number] 07/05 [facility] ORAL FUNCTION THERAPY [id number] Diagnos is: ICD-10- CM R13.10 Dysphag ia, unspeci fied MALOU,S ARAH 07/10 [facility] PH1 ASSMT&MGMT NQHP 5-10 [id number] Diagnos is: ICD-10- CM R13.10 Dysphag ia, unspeci fied RISING,HEA THER L 07/10 [facility] Outpatient Encounter [id number] 07/12 [facility] [place] [facility] LANG VOICE COMM INDIV [id number] Diagnos is: ICD-10- CM R13.10 Dysphag ia, unspeci fied MALOU,S ARAH 07/17 [facility] Outpatient Encounter [id number] 07/23 [facility] MEASURE BLOOD OXYGEN LEVEL [id number] Diagnos is: ICD-10- CM R13.10 Dysphag ia, unspeci fied RISING,HEA THER L 08/01 [facility] NQHP OL DIG ASSMT&MGMT 5-10 [id number] Diagnos is: ICD-10- CM R32 Unspeci fied urinary inconti CONSUELO Farfan 08/02 [facility] Outpatient Encounter [id number] 08/14 [facility] SELF CARE MNGMENT TRAINING [id number] Diagnos is: ICD-10- CM R21 Rash and other nonspec ific skin eruptio n RISING,HEA THER L 08/15 [facility] Outpatient Encounter [id number] 08/17 [facility] Out[facility] Encounter [id number] 08/20 [facility] NQHP OL DIG ASSMT&MGMT 11-20 [id number] Diagnos is: ICD-10- CM R32 Unspeci fied urinary inconti nevincente GIOVANNYIL CHAUNCEY NAY III 08/21 [facility] Out[facility] En[facility] [id number] 08/23 [facility] SELF CARE MNGMENT TRAINING [id number] Diagnos is: ICD-10- CM G20.A1 Nancy on's dis w/o dyskine angelika, w/o mention of fluctua tions RISING,HEA THER L 08/28 [facility] Outpatient Encounter [id number] 09/05 [facility] Outpatient Encounter [id number]/12 [facility] SYNCH AUDIO-ONLY NEW LOW 30 [id number] [id number] Diagnos is: ICD-10- CM K62.5 Hemorrh age of anus and rectum KALPESH FONTANEZ H A 09/12 [facility] SELF CARE MNGMENT TRAINING [id number] Diagnos is: ICD-10- CM R31.9 Hematur ia, unspeci fied RISING,HEA THER L 09/24 [facility] Outpatient [facility]counter [id number] 09/25 [facility] Out[facility] En[facility] [id number] 09/25 [facility] SYNCH AUDIO-ONLY EST LOW 20 [id number] Diagnos is: ICD-10- CM 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, unspeci fied KALPESH FONTANEZ H A 09/25 [facility] NQHP OL DIG ASSMT&MGMT 21+ [id number] Diagnos is: ICD-10- CM Z79.899 Other skilled nursing (curren t) drug therapy Joie GEORGE 09/25 [facility] HHCP-SERV OF PT,EA 15 MIN [id number] Diagnos is: ICD-10- CM G20.A1 Nancy on's dis w/o dyskine angelika, w/o mention of fluctua tions FREDI MENDIETA RY 09/26 [facility] NQHP OL DIG ASSMT&MGMT 5-10 [id number] [id number] Diagnos is: ICD-10- CM N40.0 Benign prostat ic hyperpl alfredo without lower urinry tract symp JANDRIS,KR ISTIE J 09/26 [facility] Out[facility] Encounter [id number] 09/27 [facility] PH1 ASSMT&MGMT NQHP 5-10 [id number] Diagnos is: ICD-10- CM G20.C Nancy onism, unspeci fied RISING,HEA THER L 10/04 [facility] NQHP OL DIG ASSMT&MGMT 5-10 [id number] Diagnos is: ICD-10- CM Z79.01 jail (curren t) use of anticoa gulants SOVEROW,CH RISTY A 10/04 [facility] SELF CARE MNGMENT TRAINING [id number] Diagnos is: ICD-10- CM I95.9 Hypoten nikole, unspeci fied RISING,HEA THER L 10/16 [facility] [place] NQHP OL DIG ASSMT&MGMT 5-10 [id number] [id number] Diagnos is: ICD-10- CM Z04.89 Encount er for examina tion and observa tion for oth reasons CHAS,FOUZIA IE 10/17 [facility] Procedures Combined list of: 1) Procedures from Department of Veterans Affairs facilities going back up to thelast 18 months, not all [place] non-surgical procedures are included; 2) All procedures from the Department of Defense facilities. Procedure Procedure Type Code Date Perfomer Comments Sourc e PSYCHIATRIC DIAGNOSTIC INTERVIEW EXAMINATION 08/20/2002 [facility] Social History Combined list of available smoking, tobacco, and other social history from Department of Defense and Veterans Affairs facilities. Social History Type Response Date Comment Sourc e Tobacco smoking status NHIS VA-TOBACCO NEVER USED CIGARETTES 05/25/2024 [facility] History of tobacco use VA-TOBACCO NEVER USED OTHER TYPE 05/25/2024 [facility] History of tobacco use VA-TOBACCO NEVER USED 01/19/2023 [facility] History of tobacco use VA-TOBACCO NEVER USED 01/15/2021 [facility] This section is an empty social history section. DoD Advance Directives List of completed, amended, or rescinded Advance Directives on record at Department of [facility] facilities. An actual copy of the Directive is not included. Date Advance Directive Provider Source 01/20/2021 ADVANCE DIRECTIVE [facility]
--- OUTSIDE RECORDS SUMMARY | 2024-10-29 13:42 | XMS_ITS ---
Author Name Department of [place] ([place]) Organization 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 Name Role Phone HUSEYIN LUIS FERNANDO Primary [...] PART B Jun 20, 2014 PART B [id number] [phone] EAMON OLIVIA ERT PATIENT MEDICARE (WNR) MEDICARE (M) PART A Jun 20, 2014 PART A [id number] EAMON OLIVIA ERT PATIENT MEDICARE (WNR) MEDICARE (M) PART A Jun 20, 2014 PART A [id number] EAMON OLIVIA ERT PATIENT MEDICARE (WNR) MEDICARE (M) PART B Jun 20, 2014 PART B [id number] EAMON OLIVIA ERT PATIENT OPTUM RX PRESCRIPT ION RX Jun 20, 2023 THPRX [id number] [phone] EAMON OLIVIA ERT PATIENT OPTUM RX PRESCRIPT ION RX Jun 20, 2022 THPRX [id number] DAVON OLIVIA JR PATIENT [facility] RX PRESCRIPT ION RX Jun 20, 2022 THPRX [id number] [phone] EAMON OLIVIA ERT PATIENT [facility] Jun 20, 2017 [id number] [phone] EAMON OLIVIA ERT PATIENT [facility] PLAN [facility] TON PEÑA E Jun 20, 2017 [id number] DAVON OLIVIA JR PATIENT [facility] PLAN [facility] TON PEÑA E Jun 20, 2017 [id number] [phone] DAVON OLIVIA JR PATIENT [facility] PLAN USP Jun 20, 2017 USP [id number] [phone] EAMON OLIVIA ERT PATIENT [facility] Jun 20, 2023 [id number] EAMON OLIVIA ERT PATIENT Selected Encounter This section includes the information on record at [place] for the Encounter. Date/Time Encounter Type Encounter Description Reason Provider Source Jul 03, 2024 12:43 PM MEASURE BLOOD OXYGEN LEVEL [facility] Nursing (RN / LP) ICD-10-CM R13.10 Dysphagia, unspecified RISING,JENNIFER L IHE Encounter Template Text not used by [place] Assessments - Encounter Diagnoses This section includes the primary and secondary diagnoses documented for the Encounter. Date/Time Primary/Secondary Diagnosis Diagnosis Name Provider Source Jul 03, 2024 03:05 PM PRIMARY Dysphagia, unspecified RISING,HEATHE R L [place] [facility] [facility] Jul 03, 2024 03:05 PM SECONDARY Delirium due to known physiological condition RISING,HEATHE R L [place] [facility] [facility] Jul 03, 2024 03:05 PM SECONDARY Parkinson's dis w/o dyskinesia, w/o mention of fluctuations RISING,HEATHE R L [place] [facility] [facility] Plan of Treatment: Future Appointments (+ 6 months) and Future Tests (+/- 45 days) The Plan of Treatment section includes future care activities for the patient from all [place] [facility]fanov[facility]ities. This section includes future appointments and future [...] 12:30 PM AMBULATORY - REHAB MEDICIN E [facility] Jul 17, 2024 02:00 PM AMBULATORY - REHAB MEDICIN E [facility] Lab Results: +/- 30 days of the encounter This section includes the Chemistry and Hematology Lab Results on record with [place] for the patient. Radiology Reports and Pathology Reports are provided separately, in subsequent sections. Lab Results This section contains the Chemistry/Hematology Results that were resulted 30 days before or 30 daysafter the date of the Encounter. Date/Time Source Result Type Result - Unit Interpretation Reference Range Specimen Type Comment Jul 03, 2024 01:30 PM [facility] FOLATE (WROX) SERUM Specimen Type: SERUM No comment entered. Ordering Provider: LUIS FERNANDO FONTANEZ Report Released Date/Time: May 25, 2024 08:50 AM Reporting Lab: [facility] [place] [facility] [address] [facility] [address] Performing Lab: [facility] [address] [facility] [address] FOLATE (WROX) 8.8 ng/mL >5.2 Jul 03, 2024 01:30 PM [facility] PTH INTACT SERUM Specimen Type: SERUM No comment entered. Ordering Provider: LUIS FERNANDO FONTANEZ Report Released Date/Time: Jun 18, 2024 08:46 AM Reporting Lab: [facility] [place] [facility] [address] [facility] [address] Performing Lab: [facility] [address] [facility] [address] PTH INTACT 34.0 pg/mL 8.7-77.1 Jul 03, 2024 01:30 PM [facility] MAGNESIUM SERUM Specimen Type: SERUM No comment entered. Ordering Provider: LUIS FERNANDO FONTANEZ Report Released Date/Time: May 25, 2024 08:50 AM Reporting Lab: [address] [address] Performing Lab: [address] [address] MAGNESIUM 1.9 mg/dL 1.6-2.6 Jul 03, 2024 01:30 PM [facility] BASIC METABOLIC PANEL (non-fasting) SERUM Spe cimen Type: SERUM No comment entered. Ordering Provider: LUIS FERNANDO FONTANEZ Report Released Date/Time: May 25, 2024 08:50 AM Reporting Lab: [address] [address] Performing Lab: [address] [address] UREA NITROGEN 15 mg/dL 7-25 GLUCOSE 80 mg/dL 65-100 SODIUM 138 mmol/L 135-145 POTASSIUM 3.5 mmol/L 3.5-5.0 CHLORIDE 101 mmol/L 100-110 CO2 28 meq/L 20-30 CREATININE, Serum 0.88 mg/dL 0.50-1.40 eGFR(CKD-EPI 2020) 90 mL/min >60 Jul 03, 2024 01:30 PM [facility] LIVER FUNCTION SERUM Specimen Type: SERUM No comment entered. Ordering Provider: LUIS FERNANDO FONTANEZ Report Released Date/Time: May 25, 2024 08:50 AM Reporting Lab: [address] [address] Performing Lab: [address] [address] PROTEIN,TOTAL 7.0 g/dL 6.0-8.3 ALBUMIN 3.5 g/dL 3.5-5.0 ALKALINE PHOSPHATASE 93 U/L 40-150 AST 19 U/L 5-34 ALT 7 U/L BILIRUBIN, TOTAL 0.3 mg/dL 0.2-1.2 Jul 03, 2024 01:30 PM [facility] VITAMIN B12 SERUM Specimen Type: SERUM No comment entered. Ordering Provider: LUIS FERNANDO FONTANEZ Report Released Date/Time: May 25, 2024 08:50 AM Reporting Lab: [facility] [place] [facility] [address] [facility] [address] Performing Lab: [facility]USE[address] [address] VITAMIN B12 435 pg/mL 200-900 Jul 03, 2024 01:30 PM [facility] VITAMIN D (25-OH) SERUM Specimen Type: SERUM No comment entered. Ordering Provider: LUIS FERNANDO FONTANEZ Report Released Date/Time: May 25, 2024 08:50 AM Reporting Lab: [address] [address] Performing Lab: [facility] [address] VITAMIN D (25-OH) 37 ng/mL 20-50 Jul 03, 2024 01:30 PM [facility] IRON & TIBC PANEL SERUM Specimen Type: SERUM No comment entered. Ordering Provider: LUIS FERNANDO FONTANEZ Report Released Date/Time: May 25, 2024 08:50 AM Reporting Lab: [facility] [address] Performing Lab: [facility]ITAL[facility] [address] TIBC 351 ug/dL 204-475 IRON 111 ug/dL 40-160 Transferrin Saturation 31.6 20.0-50.0 Transferrin (TRF) 266 mg/dL 200-360 Jul 03, 2024 01:30 PM [facility] FERRITIN SERUM Specimen Type: SERU M No comment entered. Ordering Provider: LUIS FERNANDO FONTANEZ Report Released Date/Time: May 25, 2024 08:50 AM Reporting Lab: [facility]ITALUSETS [address] [address] Performing Lab: [place] [facility] [place] [facility] [address] [facility] [address] FERRITIN 28 ng/mL 20-300 Jul 03, 2024 01:30 PM [place] [facility] TSH SERUM Specimen Type: SERUM No comment entered. Ordering Provider: LUIS FERNANDO FONTANEZ Report Released Date/Time: May 25, 2024 08:50 AM Reporting Lab: [facility]ERYRL W[facility]N [facility]ITAL[facility] [address] [address] Performing Lab: [place] [address] [address] TSH 2.21 u[IU]/mL 0.35-5.00 Jul 03, 2024 01:30 PM [place] [facility]N [facility] PO4 SERUM Specimen Type: SERUM No comment entered. Ordering Provider: LUIS FERNANDO FONTANEZ Report Released Date/Time: May 25, 2024 10:21 AM Reporting Lab: [facility]RLA[facility]ENTERTRN [facility]ITALUSETS [address] [address] Performing Lab: [place] [facility] [address] [address] PO4 2.8 mg/dL 2.5-5.0 Jul 03, 2024 01:30 PM [facility] TRN [facility] RETICULOCYTES BLOOD Specimen Type: BLOOD No comment entered. Ordering Provider: LUIS FERNANDO FONTANEZ Report Released Date/Time: May 25, 2024 08:50 AM Reporting Lab: [facility]ERYRL TRN [facility]ITAL[facility] [address] [address] Performing Lab: [place] [address] [address] RETIC % 0.9 0.6-2.0 RETIC, ABS 44.5 10*3/uL 30.0-90.0 RET-HE 31.3 pg 27.9-42.0 Jul 03, 2024 01:30 PM [facility]RL [facility] URIC ACID SERUM Specimen Type: SERUM No comment entered. Ordering Provider: LUIS FERNANDO FONTANEZ Report Released Date/Time: Jun 18, 2024 08:46 AM Reporting Lab: [place] [address] [address] Performing Lab: [address] [address] URIC ACID 5.8 mg/dL 3.5-7.2 Jul 03, 2024 01:30 PM [facility] MAGNESIUM SERUM Specimen Type: SERUM No comment entered. Ordering Provider: LUIS FERNANDO FONTANEZ Report Released Date/Time: Jun 18, 2024 08:46 AM Reporting Lab: [address] [address] Performing Lab: [address] [address] MAGNESIUM 1.8 mg/dL 1.6-2.6 Jul 03, 2024 01:30 PM [facility] CBC AND DIFF (AUTO) BLOOD Specimen Type: BLOO D No comment entered. Ordering Provider: LUIS FERNANDO FONTANEZ Report Released Date/Time: May 25, 2024 08:50 AM Reporting Lab: [address] [address] Performing Lab: [address] [address] WBC 8.62 10*3/uL 4.50-11.00 RBC 4.84 10*6/uL [...] Height Weight Body Mass Index Source Jul 03, 2024 12:46 PM 98.4 62 118/68 18 99 0 [place] [facility] [facility] Social History: Smoking Status (Most current) [...] 09:30 AM VA-TOBACCO NEVER U SED CIGARETTES [place] [facility] [place] [facility] Tobacco Use History This section includes a history of the smoking, or tobacco-related health factors, that were collected on or before the date of the Encounter. The data comes from the [place] facility where the Encounter took place. Date/Time Smoking Status/Tobacco Use Comment F acility May 25, 2024 09:30 AM VA-TOBACCO NEVER U SED OTHER TYPE [place] [facility] [place] [facility] Jan 19, 2023 12:24 PM VA-TOBACCO NEVER USED [place] [facility] [facility] Jan 15, 2021 11:00 AM VA-TOBACCO NEVER USED [place] [facility] [place] [facility] Advance Directives: All historical [...] Jan 20, 2021 ADVANCE DIRECTIVE [employer] Encounter Notes: All associated encounter notes This section contains the clinical notes associated to the Encounter. Date/Time Encounter Note(s) Provider Source Jul 03, 2024 06:30 PM PREVENTIVE MEDICINE NURSING NOTE: LOCAL TITLE: CLINICAL REMINDERS/NURSING STANDARD TITLE: PREVENTIVE MEDICINE NURSING NOTE DATE OF NOTE: JUL 03, 2024@18:30 ENTRY DATE: JUL 03, 2024@18:31:11 AUTHOR: JENNIFER SEGURA EXP COSIGNER: URGENCY: STATUS: COMPLETED RHS Screen: RHS Screen Session Format: Face to Face Environmental Check Screening was not completed at this time due to: Another adult present /ZACHARIAH Rodriguez GUARD MUSEUM Signed: 07/03/2024 18:36 [facility] Jul 03, 2024 03:06 PM ADDENDUM: LOCAL TITLE: Addendum STANDARD TITLE: ADDENDUM DATE OF NOTE: JUL 03, 2024@15:06:24 ENTRY DATE: JUL 03, 2024@15:06:26 AUTHOR: JENNIFER SEGURA EXP COSIGNER: URGENCY: STATUS: COMPLETED Spouse inquiring about a bill that she received and would like [facility] SW to contact her. /ZACHARIAH Rodriguez GUARD MUSEUM Signed: 07/03/2024 15:06 Receipt Acknowledged By: 07/03/2024 16:03 /sharron/ OLEG Sandhu [facility] Emergency Department Nurse --- Original Document --- 07/03/24 MARILIN RN PROGRESS NOTE: Nursing Progress Note [...] HEARTBURN 11) FEED BAG W/PUMP SET ENFIT COVID#[id number] USE 1 BAG VIA G-TUBE ACTIVE ONCE DAILY Indication: NUTRITION 12) FEED SET 1000ML PUMP SET CARD#[id number] USE 1 BAG FOR OVERNIGHT ACTIVE FEED ONCE DAILY Indication: NUTRITION 13) GLYCOPYRROLATE 2MG TAB TAKE ONE TABLET BY MOUTH DIRECTED ACTIVE BY PROVIDER 2-3 TIMES A DAY NEEDED FOR SECRETIONS 14) HYDROCHLOROTHIAZIDE 25MG TAB TAKE ONE TABLET BY MOUTH ONCE ACTIVE DAILY Indication: FOR CALCIUM IN URINE 15) HYDROPHILIC (EQV EUCERIN) TOP CREAM APPLY A LIBERAL AMOUNT ACTIVE TOPICALLY ONCE DAILY Indication: FOR DRY SKIN 16) HYDROXYZINE HCL 10MG TAB TAKE ONE TABLET BY MOUTH AT BEDTIME ACTIVE NEEDED FOR SLEEP Indication: INSOMNIA 17) INCONT LINER PREVAIL GUARDS #[id number] USE 1 LINER TOPICALLY ACTIVE TWO TIMES A DAY Indication: INCONTINENCE 18) INCONT LINER,MENS X-HVY SURECARE #[id number] USE 1 LINER ACTIVE TOPICALLY AT BEDTIME Indication: INCONTINENCE 19) WRAP,MALE USE 1 WRAP TOPICALLY AT BEDTIME ACTIVE Indication: INCONTINENCE 20) IRRIGATING SYRINGE CATHETER TIP 50-60ML USE 1 SYRINGE ACTIVE NEEDED Indication: NUTRITION 21) MELATONIN 5MG CAP/TAB TAKE THREE CAPSULE/TABLETS BY MOUTH AT ACTIVE BEDTIME Indication: FOR INSOMNIA 22) MEMANTINE HCL 10MG TAB TAKE ONE TABLET BY MOUTH TWICE DAILY ACTIVE 23) MIDODRINE HCL 5MG TAB TAKE ONE TABLET BY MOUTH THREE TIMES ACTIVE DAILY NEEDED Indication: FOR LOW BLOOD PRESSURE 24) MULTIVITAMIN/MINERALS LIQUID TAKE 1 TABLESPOON (15ML) BY ACTIVE MOUTH ONCE DAILY Indication: FOR VITAMIN SUPPLEMENTATION 25) NUTRITION SUPL ENSURE PLUS/VANILLA LIQ DRINK 1 CAN BY MOUTH ACTIVE THREE TIMES A DAY Indication: FOR NUTRITIONAL SUPPLEMENTATION 26) OATMEAL,COLLOIDAL CLEANSING BAR/DRY SKIN DIRECTED ACTIVE TOPICALLY ONCE DAILY Indication: FOR SKIN IRRITATION 27) ORAL,SWAB TOOTHETTE USE 1 MOUTH SWAB DIRECTED ONCE DAILY ACTIVE TO USE WITH CHLOREHEXADINE ORAL RINSE 28) POLYETHYLENE GLYCOL 3350 ORAL PWDR TAKE 17 GRAMS(FILL CAP TO ACTIVE 17GM LINE) BY MOUTH ONCE DAILY [MIX WITH 4 TO 8OZ. OF BEVERAGE] Indication: FOR CONSTIPATION 29) RASAGILINE MESYLATE 1MG TAB TAKE ONE TABLET BY MOUTH ONCE ACTIVE DAILY 30) UNDERPAD,BED ULTRASORB [id number] M#3136 USE 2 UNDERPADS ACTIVE TOPICALLY AT BEDTIME Indication: INCONTINENCE 31) URINARY DRAINAGE BAG BARD #[id number] USE 1 URINARY DRAINAGE BAG ACTIVE EVERY 7 DAYS Indication: INCONTINENCE 32) VALVE,ARCHANA ENTERAL,ICU MEDICAL #6317 USE 1 VALVE ONCE DAILY ACTIVE Indication: NUTRITION Inactive Outpatient Medications Status 1) BISACODYL 10MG RTL SUPP INSERT 1 SUPPOSITORY(IES) RECTALLY ONCE DAILY NEEDED FOR BOWELS - LAXATIVE Indication: FOR CONSTIPATION 2) TAPE,MICROPORE 2IN #1530-2 USE 1 PIECE TOPICALLY ONCE DAILY NEEDED FOR TUBE FEED CONNECTION Indication: FOR TUBE FEED CONNECTION 34 Total Medications MEDICATION REVIEW Medication review completed [...] Facial Recognition Length of visit in home: 55 minutes Problem addressed for this visit: PD, dysphagia, Specimen(s) collected during this visit: RNCM faisal blood from Right AC using 23 gauge butterfly needle on first attempt without incident. Specimen dropped off at [facility] lab. NURSING SUMMARY: RNCM made home visit for c/v and c/p assessment, assess diet and toleration, neuro assessment, draw labs. [place] sitting in the living room sitting in recliner with legs elevated watching TV upon arrival. Well groomed. Dressed appropriately. Poor eye contact, relies on spouse to answer questions. Alert Oriented to person and place. Oriented to time. Spouse reports having an off day. [facility] speech worked with this morning and this was last visit. [facility]NA nurse plans on discharging 1-2 weeks. Speech monotone, able to understand. Muscle rigidity to upper and lower extremities. with sundowning that starts early evening. No hallucinations or behavior issues at this time. Blood pressure fluctuates. Today BP 118/68. Denies chest pain, palpations, dizziness. Afib controlled with meds. On apixaban. Taking as directed. Denies bleeding. Reviewed bleeding precautions. High fall risk. Reviewed fall prevention . Abdomen soft non-tender, non-distended + bs x 4. Moving bowels every 2-3 days. G-tube to mid abdomen patent + benign. Surrounding area c/d/i. G-tube feedings discontinued. Spouse called [facility] requested them consult to remove g- tube. Spouse states she is waiting for [facility] to call with appt. RNCM told spouse [facility] PCP put in consult to have g-tube removed on 06/18. SPouse reports she never received a phone call. Dysphagia: Had MBSS on 05/24. ADMISSIONS MANAGER recommended minced and moist diet with thin liquids. [place] eating 3 meals/day. Foods cut into very small pieces or she purees. Drinking 48 oz of fluid daily. Denies any choking episodes. Reports weight up to 182.5lbs. manages and administers meds. Administering meds in pudding or applesauce. Reviewed medication regimen. Spouse administering meds as directed. Spouse requesting multivitamin to be changed back to tablet form. [place] doesn't like the taste of the multivitamin solution starts to gag and spits it out. Completed 24 hr urine. Will get results at enterprise software developer appt 07/27. RNCM faisal labs and will send Spouse results to bring to appt. Spouse inquiring about a bill that she received and would like [facility] to contact her. seen by Dr. Villasenor gerontologist who recommended to taper of famotidine, completed taper instructions. Discontinued from med list. Blood Pressure: 118/68 (07/03/2024 12:46) Pulse: 62 (07/03/2024 12:46) Respiration: 18 (07/03/2024 12:46) Temperature: 98.4 F [36.9 C] (07/03/2024 12:46) Pain Score: 0 (07/03/2024 12:46) EXAMINATION: Lungs: Ls clear throughout. Resp easy [...] as possible with assist from his and [facility] Patient verbalizes understanding to above and will call with any concerns or changes in condition. For emergent care call 911. Revisit: 08/01/24 for chronic disease management, neuro assessment, c/v and c/p assessment, med review, labs /es/ JENNIFER SEGURA SOCIAL SERVICES MANAGERPHILOMENA GASTON GUARD MUSEUM Signed: 07/03/2024 15:02 07/03/2024 ADDENDUM STATUS: COMPLETED Spouse requesting multivitamin to be changed back to tablet form. [place] doesn't like the taste of the multivitamin solution starts to gag and spits it out. FYI, [place] seen by Dr. Hamilton mosherloghoracio who recommended to taper of famotidine, completed taper instructions. Discontinued from med list. /ZACHARIAH Rodriguez GUARD MUSEUM Signed: 07/03/2024 15:06 Receipt Acknowledged By: 07/03/2024 15:27 /consuelo CHIU [facility] NURSE PRACTITIONER JENNIFER SEGURA [place] [facility] Jul 03, 2024 03:05 PM ADDENDUM: LOCAL TITLE: Addendum STANDARD TITLE: ADDENDUM DATE OF NOTE: JUL 03, 2024@15:05:21 ENTRY DATE: JUL 03, 2024@15:05:22 AUTHOR: JENNIFER SEGURA EXP COSIGNER: URGENCY: STATUS: COMPLETED Spouse requesting multivitamin to be changed back to tablet form. [place] doesn't like the taste of the multivitamin solution starts to gag and spits it out. FYI, seen by Dr. Hamilton veloz who recommended to taper of famotidine, completed taper instructions. Discontinued from med list. /ZACHARIAH Rodriguez GUARD MUSEUM Signed: 07/03/2024 15:06 Receipt Acknowledged By: 07/03/2024 15:27 /consuelo [facility]IU [facility] NURSE PRACTITIONER --- Original Document --- 07/03/24 HBDARSHAN RN PROGRESS NOTE: Nursing Progress Note [...] HEARTBURN 11) FEED BAG W/PUMP SET ENFIT COVID#[id number] USE 1 BAG VIA G-TUBE ACTIVE ONCE DAILY Indication: NUTRITION 12) FEED SET 1000ML PUMP SET CARD#[id number] USE 1 BAG FOR OVERNIGHT ACTIVE FEED ONCE DAILY Indication: NUTRITION 13) GLYCOPYRROLATE 2MG TAB TAKE ONE TABLET BY MOUTH DIRECTED ACTIVE BY PROVIDER 2-3 TIMES A DAY NEEDED FOR SECRETIONS 14) HYDROCHLOROTHIAZIDE 25MG TAB TAKE ONE TABLET BY MOUTH ONCE ACTIVE DAILY Indication: FOR CALCIUM IN URINE 15) HYDROPHILIC (EQV EUCERIN) TOP CREAM APPLY A LIBERAL AMOUNT ACTIVE TOPICALLY ONCE DAILY Indication: FOR DRY SKIN 16) HYDROXYZINE HCL 10MG TAB TAKE ONE TABLET BY MOUTH AT BEDTIME ACTIVE NEEDED FOR SLEEP Indication: INSOMNIA 17) INCONT LINER PREVAIL GUARDS #[id number] USE 1 LINER TOPICALLY ACTIVE TWO TIMES A DAY Indication: INCONTINENCE 18) INCONT LINER,MENS X-HVY SURECARE #[id number] USE 1 LINER ACTIVE TOPICALLY AT BEDTIME Indication: INCONTINENCE 19) WRAP,MALE USE 1 WRAP TOPICALLY AT BEDTIME ACTIVE Indication: INCONTINENCE 20) IRRIGATING SYRINGE CATHETER TIP 50-60ML USE 1 SYRINGE ACTIVE NEEDED Indication: NUTRITION 21) MELATONIN 5MG CAP/TAB TAKE THREE CAPSULE/TABLETS BY MOUTH AT ACTIVE BEDTIME Indication: FOR INSOMNIA 22) MEMANTINE HCL 10MG TAB TAKE ONE TABLET BY MOUTH TWICE DAILY ACTIVE 23) MIDODRINE HCL 5MG TAB TAKE ONE TABLET BY MOUTH THREE TIMES ACTIVE DAILY NEEDED Indication: FOR LOW BLOOD PRESSURE 24) MULTIVITAMIN/MINERALS LIQUID TAKE 1 TABLESPOON (15ML) BY ACTIVE MOUTH ONCE DAILY Indication: FOR VITAMIN SUPPLEMENTATION 25) NUTRITION SUPL ENSURE PLUS/VANILLA LIQ DRINK 1 CAN BY MOUTH ACTIVE THREE TIMES A DAY Indication: FOR NUTRITIONAL SUPPLEMENTATION 26) OATMEAL,COLLOIDAL CLEANSING BAR/DRY SKIN DIRECTED ACTIVE TOPICALLY ONCE DAILY Indication: FOR SKIN IRRITATION 27) ORAL,SWAB TOOTHETTE USE 1 MOUTH SWAB DIRECTED ONCE DAILY ACTIVE TO USE WITH CHLOREHEXADINE ORAL RINSE 28) POLYETHYLENE GLYCOL 3350 ORAL PWDR TAKE 17 GRAMS(FILL CAP TO ACTIVE 17GM LINE) BY MOUTH ONCE DAILY [MIX WITH 4 TO 8OZ. OF BEVERAGE] Indication: FOR CONSTIPATION 29) RASAGILINE MESYLATE 1MG TAB TAKE ONE TABLET BY MOUTH ONCE ACTIVE DAILY 30) UNDERPAD,BED ULTRASORB [id number] #3136 USE 2 UNDERPADS ACTIVE TOPICALLY AT BEDTIME Indication: INCONTINENCE 31) URINARY DRAINAGE BAG BARD #[id number] USE 1 URINARY DRAINAGE BAG ACTIVE EVERY 7 DAYS Indication: INCONTINENCE 32) VALVE,ARCHANA ENTERAL,ICU MEDICAL #9000 USE 1 VALVE ONCE DAILY ACTIVE Indication: NUTRITION Inactive Outpatient Medications Status 1) BISACODYL 10MG RTL SUPP INSERT 1 SUPPOSITORY(IES) RECTALLY ONCE DAILY NEEDED FOR BOWELS - LAXATIVE Indication: FOR CONSTIPATION 2) TAPE,MICROPORE 2IN #1530-2 USE 1 PIECE TOPICALLY ONCE DAILY NEEDED FOR TUBE FEED CONNECTION Indication: FOR TUBE FEED CONNECTION 34 Total Medications MEDICATION REVIEW Medication review completed [...] in patient's home at time of visit. [place] identified by: Full Name, Facial Recognition Length of visit in home: 55 minutes Problem addressed for this visit: PD, dysphagia, Specimen(s) collected during this visit: RNCM faisal blood from Right AC using 23 gauge butterfly needle on first attempt without incident. Specimen dropped off at [facility] lab. NURSING SUMMARY: RNCM made home visit for c/v and c/p assessment, assess diet and toleration, neuro assessment, draw labs. [place] sitting in the living room sitting in recliner with legs elevated watching TV upon arrival. Well groomed. Dressed appropriately. Poor eye contact, relies on spouse to answer questions. Alert Oriented to person and place. Oriented to time. Spouse reports [place] having an off day. [facility]NA speech worked with this morning and this was last visit. VNA nurse plans on discharging 1-2 weeks. Speech monotone, able to understand. Muscle rigidity to upper and lower extremities. [place] with sundowning that starts early evening. No hallucinations or behavior issues at this time. Blood pressure fluctuates. Today BP 118/68. Denies chest pain, palpations, dizziness. Afib controlled with meds. On apixaban. Taking as directed. Denies bleeding. Reviewed bleeding precautions. High fall risk. Reviewed fall prevention . Abdomen soft non-tender, non-distended + bs x 4. Moving bowels every 2-3 days. G-tube to mid abdomen patent + benign. Surrounding area c/d/i. G-tube feedings discontinued. [facility] called [facility] requested them consult to remove g- tube. Spouse states she is waiting for [facility] to call with appt. RNCM told spouse [facility] PCP put in consult to have g-tube removed on 06/18. SPouse reports she never received a phone call. Dysphagia: Had MBSS on 05/24. ADMISSIONS MANAGER recommended minced and moist diet with thin liquids. eating 3 meals/day. Foods cut into very small pieces or she purees. Drinking 48 oz of fluid daily. Denies any choking episodes. Reports weight up to 182.5lbs. manages and administers meds. Administering meds in pudding or applesauce. Reviewed medication regimen. Spouse administering meds as directed. Spouse requesting multivitamin to be changed back to tablet form. [place] doesn't like the taste of the multivitamin solution starts to gag and spits it out. Completed 24 hr urine. Will get results at enterprise software developer appt 07/27. RNCM faisal labs and will send Spouse results to bring to appt. Spouse inquiring about a bill that she received and would like [facility] to contact her. [place] seen by Dr. Villasenor gerontologist who recommended to taper of famotidine, completed taper instructions. Discontinued from med list. Blood Pressure: 118/68 (07/03/2024 12:46) Pulse: 62 (07/03/2024 12:46) Respiration: 18 (07/03/2024 12:46) Temperature: 98.4 F [36.9 C] (07/03/2024 12:46) Pain Score: 0 (07/03/2024 12:46) EXAMINATION: Lungs: Ls clear throughout. Resp easy [...] procedure NO Teaching/goals: Refer to nursing summary. [place] goal is to live at home safely with his as long as possible with assist from his and [facility] MARBLE CUTTER OPERATOR Patient verbalizes understanding to above and will call with any concerns or changes in condition. For emergent care call 911. Revisit: 08/01/24 for chronic disease management, neuro assessment, c/v and c/p assessment, med review, labs /es/ JENNIFER SEGURA RN BSN [facility] GUARD MUSEUM Signed: 07/03/2024 15:02 07/03/2024 ADDENDUM STATUS: COMPLETED Spouse inquiring about a bill that she received and would like [facility] to contact her. /es/ JENNIFER SEGURA SOCIAL SERVICES MANAGER [facility] GUARD MUSEUM Signed: 07/03/2024 15:06 Receipt Acknowledged By: * AWAITING SIGNATURE * KAMILAH MALCOLM JENNIFER SEGURA TX CNTRL WSTRN [facility] Jul 03, 2024 12:47 PM HB NURSING NOTE: LOCAL TITLE: [facility] RN PROGRESS NOTE STANDARD TITLE: [facility] NURSING NOTE DATE OF NOTE: JUL 03, 2024@12:47 ENTRY DATE: JUL 03, 2024@12:47:33 AUTHOR: JENNIFER SEGURA EXP COSIGNER: URGENCY: STATUS: [...] A DAY 5) CATH,EXTERNAL EXTENDED WEAR SMALL H#[id number] USE 1 CATHETER ACTIVE URETHRAL ONCE DAILY [...] HEARTBURN 11) FEED BAG W/PUMP SET ENFIT COVID#[id number] USE 1 BAG VIA G-TUBE ACTIVE ONCE DAILY Indication: NUTRITION 12) FEED SET 1000ML PUMP SET CARD#[id number] USE 1 BAG FOR OVERNIGHT ACTIVE FEED ONCE DAILY Indication: NUTRITION 13) GLYCOPYRROLATE 2MG TAB TAKE ONE TABLET BY MOUTH DIRECTED ACTIVE BY PROVIDER 2-3 TIMES A DAY NEEDED FOR SECRETIONS 14) HYDROCHLOROTHIAZIDE 25MG TAB TAKE ONE TABLET BY MOUTH ONCE ACTIVE DAILY Indication: FOR CALCIUM IN URINE 15) HYDROPHILIC (EQV EUCERIN) TOP CREAM APPLY A LIBERAL AMOUNT ACTIVE TOPICALLY ONCE DAILY Indication: FOR DRY SKIN 16) HYDROXYZINE HCL 10MG TAB TAKE ONE TABLET BY MOUTH AT BEDTIME ACTIVE NEEDED FOR SLEEP Indication: INSOMNIA 17) INCONT LINER PREVAIL GUARDS #[id number] USE 1 LINER TOPICALLY ACTIVE TWO TIMES A DAY Indication: INCONTINENCE 18) INCONT LINER,MENS X-HVY SURECARE #[id number] USE 1 LINER ACTIVE TOPICALLY AT BEDTIME Indication: INCONTINENCE 19) WRAP,MALE USE 1 WRAP TOPICALLY AT BEDTIME ACTIVE Indication: INCONTINENCE 20) IRRIGATING SYRINGE CATHETER TIP 50-60ML USE 1 SYRINGE ACTIVE NEEDED Indication: NUTRITION 21) MELATONIN 5MG CAP/TAB TAKE THREE CAPSULE/TABLETS BY MOUTH AT ACTIVE BEDTIME Indication: FOR INSOMNIA 22) MEMANTINE HCL 10MG TAB TAKE ONE TABLET BY MOUTH TWICE DAILY ACTIVE 23) MIDODRINE HCL 5MG TAB TAKE ONE TABLET BY MOUTH THREE TIMES ACTIVE DAILY NEEDED Indication: FOR LOW BLOOD PRESSURE 24) MULTIVITAMIN/MINERALS LIQUID TAKE 1 TABLESPOON (15ML) BY ACTIVE MOUTH ONCE DAILY Indication: FOR VITAMIN SUPPLEMENTATION 25) NUTRITION SUPL ENSURE PLUS/VANILLA LIQ DRINK 1 CAN BY MOUTH ACTIVE THREE TIMES A DAY Indication: FOR NUTRITIONAL SUPPLEMENTATION 26) OATMEAL,COLLOIDAL CLEANSING BAR/DRY SKIN DIRECTED ACTIVE TOPICALLY ONCE DAILY Indication: FOR SKIN IRRITATION 27) ORAL,SWAB TOOTHETTE USE 1 MOUTH SWAB DIRECTED ONCE DAILY ACTIVE TO USE WITH CHLOREHEXADINE ORAL RINSE 28) POLYETHYLENE GLYCOL 3350 ORAL PWDR TAKE 17 GRAMS(FILL CAP TO ACTIVE 17GM LINE) BY MOUTH ONCE DAILY [MIX WITH 4 TO 8OZ. OF BEVERAGE] Indication: FOR CONSTIPATION 29) RASAGILINE MESYLATE 1MG TAB TAKE ONE TABLET BY MOUTH ONCE ACTIVE DAILY 30) UNDERPAD,BED ULTRASORB [id number] M#3136 USE 2 UNDERPADS ACTIVE TOPICALLY AT BEDTIME Indication: INCONTINENCE 31) URINARY DRAINAGE BAG BARD #[id number] USE 1 URINARY DRAINAGE BAG ACTIVE EVERY 7 DAYS Indication: INCONTINENCE 32) VALVE,ARCHANA ENTERAL,ICU MEDICAL #9000 USE 1 VALVE ONCE DAILY ACTIVE Indication: NUTRITION Inactive Outpatient Medications Status 1) BISACODYL 10MG RTL SUPP INSERT 1 SUPPOSITORY(IES) RECTALLY ONCE DAILY NEEDED FOR BOWELS - LAXATIVE Indication: FOR CONSTIPATION 2) TAPE,MICROPORE 2IN #1530-2 USE 1 PIECE TOPICALLY ONCE DAILY NEEDED FOR TUBE FEED CONNECTION Indication: FOR TUBE FEED CONNECTION 34 Total Medications MEDICATION REVIEW Medication review completed [...] in patient's home at time of visit. [place] identified by: Full Name, Facial Recognition Length of visit in home: 55 minutes Problem addressed for this visit: PD, dysphagia, Specimen(s) collected during this visit: RNCM faisal blood from Right AC using 23 gauge butterfly needle on first attempt without incident. Specimen dropped off at [facility] lab. NURSING SUMMARY: RNCM made home visit for c/v and c/p assessment, assess diet and toleration, neuro assessment, draw labs. sitting in the living room sitting in recliner with legs elevated watching TV upon arrival. Well groomed. Dressed appropriately. Poor eye contact, relies on spouse to answer questions. Alert Oriented to person and place. Oriented to time. Spouse reports having an off day. [facility] speech worked with [place] this morning and this was last visit. [facility] nurse plans on discharging 1-2 weeks. Speech monotone, able to understand. Muscle rigidity to upper and lower extremities. with sundowning that starts early evening. No hallucinations or behavior issues at this time. Blood pressure fluctuates. Today BP 118/68. Denies chest pain, palpations, dizziness. Afib controlled with meds. On apixaban. Taking as directed. Denies bleeding. Reviewed bleeding precautions. High fall risk. Reviewed fall prevention . Abdomen soft non-tender, non-distended + bs x 4. Moving bowels every 2-3 days. G-tube to mid abdomen patent + benign. Surrounding area c/d/i. G-tube feedings discontinued. [facility] requested them consult to remove g- tube. Spouse states she is waiting for [facility] MUNOZ to call with appt. RNKIRA told spouse [facility] PCP put in consult to have g-tube removed on 06/18. SPouse reports she never received a phone call. Dysphagia: Had MBSS on 05/24. ADMISSIONS MANAGER recommended minced and moist diet with thin liquids. eating 3 meals/day. Foods cut into very small pieces or she purees. Drinking 48 oz of fluid daily. Denies any choking episodes. Reports weight up to 182.5lbs. manages and administers meds. Administering meds in pudding or applesauce. Reviewed medication regimen. Spouse administering meds as directed. Spouse requesting multivitamin to be changed back to tablet form. [place] doesn't like the taste of the multivitamin solution starts to gag and spits it out. Completed 24 hr urine. Will get results at enterprise software developer appt 07/27. RNCM faisal labs and will send Spouse results to bring to appt. Spouse inquiring about a bill that she received and would like [facility] to contact her. seen by Dr. Villasenor gerontologist who recommended to taper of famotidine, completed taper instructions. Discontinued from med list. Blood Pressure: 118/68 (07/03/2024 12:46) Pulse: 62 (07/03/2024 12:46) Respiration: 18 (07/03/2024 12:46) Temperature: 98.4 F [36.9 C] (07/03/2024 12:46) Pain Score: 0 (07/03/2024 12:46) EXAMINATION: Lungs: Ls clear throughout. Resp easy [...] as possible with assist from his and [facility] Patient verbalizes understanding to above and will call with any concerns or changes in condition. For emergent care call 911. Revisit: 08/01/24 for chronic disease management, neuro assessment, c/v and c/p assessment, med review, labs /ZACHARIAH RodriguezN [facility] GUARD MUSEUM Signed: 07/03/2024 15:02 07/03/2024 ADDENDUM STATUS: COMPLETED Spouse requesting multivitamin to be changed back to tablet form. doesn't like the taste of the multivitamin solution starts to gag and spits it out. GARRETT, seen by Dr. Villasenor gerontologist who recommended to taper of famotidine, completed taper instructions. Discontinued from med list. /ZACHARIAH RodriguezN [facility] GUARD MUSEUM Signed: 07/03/2024 15:06 Receipt Acknowledged By: * AWAITING SIGNATURE * LUIS FERNANDO FONTANEZ 07/03/2024 ADDENDUM STATUS: COMPLETED Spouse inquiring about a bill that she received and would like [facility] to contact her. /ZACHARIAH RodriguezN [facility] GUARD MUSEUM Signed: 07/03/2024 15:06 Receipt Acknowledged By: * AWAITING SIGNATURE * KAMILAH MALCOLM HEATHER L [facility]
--- OUTSIDE RECORDS SUMMARY | 2024-10-29 13:42 | XMS_ITS | Encounter Summary ---
Author Organization [facility] Address [address] [place] [address] Care Team Providers Care Feather Curling Machine Operator Name Role Phone Geri Samson MD Primary Care Provider [phone] Encounter Details Date Type Department Care Team (Late st Contact Info) Description 05/09/2024 Lab Requisition [facility] - Main Lab [address] [facility] [place] [id number] Geri Samson MD [address] [place] [address] Hypothyroidism, unspecified; Pneumonia, unspecified organism; Vitamin B12 deficiency anemia, unspecified Social History Tobacco Use Types Packs/Day Years [...] Procedure Name Priority Date/Time Associated Diagnosis Comments THYROID STIMULATING HORMONE WITH REFLEX TO FREE T4 AND FREE T3 Routine 05/09/2024 7:52 AM EST Hypothyroidism, unspecified Pneumonia, unspecified organism Vitamin B12 deficiency anemia, unspecified FREE THYROXINE WITH REFLEX TO FREE TRIIODOTHYRONINE Routine 05/09/2024 7:52 AM EST Hypothyroidism, unspecified Pneumonia, unspecified organism Vitamin B12 deficiency anemia, unspecified COMPLETE BLOOD COUNT Routine 05/09/2024 7:52 AM EST Hypothyroidism, unspecified Pneumonia, unspecified organism Vitamin B12 deficiency anemia, unspecified TRIIODOTHYRONINE FREE Routine 05/09/2024 7:52 AM EST Hypothyroidism, unspecified Pneumonia, unspecified organism Vitamin B12 deficiency anemia, unspecified VITAMIN B12 Routine 05/09/2024 7:52 AM EST Hypothyroidism, unspecified Pneumonia, unspecified organism Vitamin B12 deficiency anemia, unspecified COMPREHENSIVE METABOLIC PANEL Routine 05/09/2024 7:52 AM EST Hypothyroidism, unspecified Pneumonia, unspecified organism Vitamin B12 deficiency anemia, unspecified documented in this encounter Results * Triiodothyronine free (05/09/2024 7:52 AM EST) T3, Free 328 230 - 420 pcg/dL LAB CHEMISTRY METHOD 05/09/2024 11:35 AM EST [facility] Blood Venous blood specimen / Unknown Venipuncture / Unknown 05/09/2024 7:52 AM EST 05/09/2024 9:16 AM EST us Geri Samson MD LAB BLOOD ORDERABLES Final Resul t Performing Organization Address [facility]/ZIP Co de Phone Number [facility] [address] [place] [address], [place] [phone] * Free thyroxine with reflex to free triiodothyronine (05/09/2024 7:52 AM EST) Free T4 1.13 0.70 - 1.80 ng/dL LAB CHEMISTRY METHOD 05/09/2024 10:52 AM EST [facility] Blood Venous blood specimen / Unknown Venipuncture / Unknown 05/09/2024 7:52 AM EST 05/09/2024 9:16 AM EST us Geri Samson MD LAB BLOOD ORDERABLES Final Resul t [facility] [address] [place] [address], [place] [phone] * Vitamin B12 (05/09/2024 7:52 AM EST) [facility] Vitamin B-12 596 250 - 900 pcg/mL LAB CHEMISTRY METHOD 05/09/2024 10:52 AM EST [facility] Blood Venous blood specimen / Unknown Venipuncture / Unknown 05/09/2024 7:52 AM EST 05/09/2024 9:16 AM EST us Geri Samson MD LAB BLOOD ORDERABLES Final Resul t Performing Organization Address [facility]/ZIP Co de Phone Number [facility] [address] [place] [address], [place] [phone] * (ABNORMAL) Thyroid stimulating hormone with reflex to free t4 and free t3 (05/09/2024 7:52 AM EST) [facility] TSH 4.66(H) 0.40 - 4.00 mcIU/mL LAB CHEMISTRY METHOD 05/09/2024 10:13 AM EST [facility] Blood Venous blood specimen / Unknown Venipuncture / Unknown 05/09/2024 7:52 AM EST 05/09/2024 9:16 AM EST us Geri Samson MD LAB BLOOD ORDERABLES Final Resul t Performing Organization Address City/[facility]/ZIP Co de Phone Number [facility] [address] [place] [address], [place] [phone] * (ABNORMAL) Comprehensive metabolic panel (05/09/2024 7:52 AM EST) [facility] Sodium 137 133 - 145 mmol/L LAB CHEMISTRY METHOD 05/09/2024 10:52 AM EST [facility] Potassium 4.3 3.5 - 5.5 mmol/L LAB CHEMISTRY METHOD 05/09/2024 10:52 AM EST [facility] Chloride 100 96 - 110 mmol/L LAB CHEMISTRY METHOD 05/09/2024 10:52 AM [facility] CO2 30 21 - 32 mmol/L LAB CHEMISTRY METHOD 05/09/2024 10:52 AM [facility] Anion Gap 7 3 - 11 LAB CHEMISTRY METHOD 05/09/2024 10:52 AM [facility] Glucose 101(H) 70 - 100 mg/dL LAB CHEMISTRY METHOD 05/09/2024 10:52 AM [facility] BUN 23 5 - 25 mg/dL LAB CHEMISTRY METHOD 05/09/2024 10:52 AM [facility] Creatinine 0.82 0.70 - 1.30 mg/dL LAB CHEMISTRY METHOD 05/09/2024 10:52 AM [facility] eGFR 92 >=60 mL/min/1. 73m2 LAB CHEMISTRY METHOD 05/09/2024 10:52 AM [facility] Comment:Calculation based on the??Chronic Kidney Disease Epidemiology Collaboration (CKD-EPI) equation refit??without adjustment for race. BUN/Creatinine Ratio 28.0 LAB CHEMISTRY METHOD 05/09/2024 10:52 AM [facility] Calcium 9.9 8.5 - 10.5 mg/dL LAB CHEMISTRY METHOD 05/09/2024 10:52 AM [facility] AST (SGOT) 38 10 - 42 unit/L LAB CHEMISTRY METHOD 05/09/2024 10:52 AM [facility] ALT (SGPT) 20 10 - 60 unit/L LAB CHEMISTRY METHOD 05/09/2024 10:52 AM [facility] Alkaline Phosphatase 131(H) 42 - 121 unit/L LAB CHEMISTRY METHOD 05/09/2024 10:52 AM [facility] Total Protein 6.6 6.0 - 8.0 g/dL LAB CHEMISTRY METHOD 05/09/2024 10:52 AM [facility] Albumin 3.0(L) 3.2 - 5.0 g/dL LAB CHEMISTRY METHOD 05/09/2024 10:52 AM [facility] Total Bilirubin 0.2 0.0 - 1.4 mg/dL LAB CHEMISTRY METHOD 05/09/2024 10:52 AM [facility] Blood Venous blood specimen / Unknown Venipuncture / Unknown 05/09/2024 7:52 AM EST 05/09/2024 9:16 AM EST us Geri Samson MD LAB BLOOD ORDERABLES Final Resul t [facility] [address] [place] [address], [place] [phone] * (ABNORMAL) Complete blood count (05/09/2024 7:52 AM EST) WBC 8.0 4.8 - 10.8 K/mcL LAB HEMETOLOGY METHOD 05/09/2024 9:35 AM [facility] RBC 4.20(L) 4.50 - 5.50 M/mcL LAB HEMETOLOGY METHOD 05/09/2024 9:35 AM [facility] Hemoglobin 12.0(L) 13.5 - 17.5 g/dL LAB HEMETOLOGY METHOD 05/09/2024 9:35 AM [facility] Hematocrit 38.9(L) 42.0 - 54.0 % LAB HEMETOLOGY METHOD 05/09/2024 9:35 AM [facility] MCV 92.0 79.0 - 98.0 FL LAB HEMETOLOGY METHOD 05/09/2024 9:35 AM [facility] MCH 28.4 27.0 - 32.0 pcg LAB HEMETOLOGY METHOD 05/09/2024 9:35 AM [facility] MCHC 30.8(L) 32.0 - 37.0 g/dL LAB HEMETOLOGY METHOD 05/09/2024 9:35 AM EST [facility] RDW 13.6 11.0 - 15.0 % LAB HEMETOLOGY METHOD 05/09/2024 9:35 AM EST [facility] Platelets 623(H) 130 - 400 K/mcL LAB HEMETOLOGY METHOD 05/09/2024 9:35 AM EST [facility] MPV 9.1 7.0 - 11.0 FL LAB HEMETOLOGY METHOD 05/09/2024 9:35 AM EST [facility] NRBC 0.0 <1.0 % LAB HEMETOLOGY METHOD 05/09/2024 9:35 AM EST [facility] NRBC Absolute 0.00 <0.10 K/mcL LAB HEMETOLOGY METHOD 05/09/2024 9:35 AM [facility] Blood Venous blood specimen / Unknown Venipuncture / Unknown 05/09/2024 7:52 AM EST 05/09/2024 9:16 AM EST us Geri Samson MD LAB BLOOD ORDERABLES Final Resul t [facility] [address] [place] [address], documented in this encounter Visit Diagnoses Diagnosis Hypothyroidism, unspecified Pneumonia, unspecified organism Vitamin B12 deficiency anemia, unspecified documented in this encounter Care Teams Feather Curling Machine Operator Relationship Specialty Start Date End Date Geri Samson MD [address] [facility] [address] [place] [address] PCP - General Geriatric Medicine 05/10/24 documented as of this encounter
--- OUTSIDE RECORDS SUMMARY | 2024-10-29 13:42 | XMS_ITS ---
Author Name [facility] ([place] Organization [facility] Address [address] [place] [id number] Care Team Providers Care Commission Broker Name Role Phone HUSEYIN LUIS FERNANDO Primary [...] PART B Jun 20, 2014 PART B [id number] EAMON OLIVIA ERT PATIENT MEDICARE (WNR) MEDICARE (M) PART A Jun 20, 2014 PART A [id number] [phone] EAMON OLIVIA ERT PATIENT MEDICARE (WNR) MEDICARE (M) PART A Jun 20, 2014 PART A [id number] [phone] EAMON OLIVIA ERT PATIENT MEDICARE (WNR) MEDICARE (M) PART B Jun 20, 2014 PART B [id number] [phone] EAMON OLIVIA ERT PATIENT [facility] RX PRESCRIPT ION RX Jun 20, 2023 TH[facility]X [id number] EAMON OLIVIA ERT PATIENT [facility] RX PRESCRIPT ION RX Jun 20, 2022 THPRX [id number] DAVON OLIVIA JR PATIENT [facility] RX PRESCRIPT ION RX Jun 20, 2022 THPRX [id number] [phone] EAMON OLIVIA ERT PATIENT [facility] Jun 20, 2017 [id number] [phone] EAMON OLIVIA ERT PATIENT [facility] PLAN [facility] T[facility] E Jun 20, 2017 [id number] DAVON LOIVIA JR PATIENT [facility] PLAN [facility] Jun 20, 2017 [facility] [id number] EAMON OLIVIA ERT PATIENT [facility] PLAN [facility] E Jun 20, 2017 [id number] DAVON OLIVIA JR PATIENT [facility] Jun 20, 2023 [id number] [phone] EAMON OLIVIA ERT PATIENT Selected Encounter This section includes the information on record at [place] for the Encounter. Date/Time Encounter Type Encounter Description Reason Provider Source Jun 04, 2024 11:13 AM SELF CARE MNGMENT TRAINING [facility] Nursing (RN / LP) ICD-10-CM R13.10 Dysphagia, unspecified RISING,JENNIFER L IHE Encounter Template Text not used by [place] Assessments - Encounter Diagnoses This section includes the primary and secondary diagnoses documented for the Encounter. Date/Time Primary/Secondary Diagnosis Diagnosis Name Provider Source Jun 04, 2024 06:44 PM PRIMARY Dysphagia, unspecified RISING,HEATHE R L [place] [facility] [place] [facility] Jun 04, 2024 06:44 PM SECONDARY Calculus of kidney RISING,HEATHE R L [place] [facility] [place] [facility] Jun 04, 2024 06:44 PM SECONDARY Constipation, unspecified RISING,HEATHE R L [place] [facility] [place] [facility] Jun 04, 2024 06:44 PM SECONDARY Delirium due to known physiological condition RISING,HEATHE R L [facility] [place] [facility] Jun 04, 2024 06:44 PM SECONDARY Hypotension, unspecified RISING,HEATHE R L [facility] [place] [facility] Jun 04, 2024 06:44 PM SECONDARY Obstructive sleep apnea (adult) (pediatric) RISING,HEATHE R L [facility] [place] [facility] Jun 04, 2024 06:44 PM SECONDARY Parkinson's dis w/o dyskinesia, w/o mention of fluctuations RISING,HEATHE R L [facility] Plan of Treatment: Future Appointments (+ [...] 12:30 PM AMBULAT[facility] - [facility] Jul 17, 2024 02:00 PM AMBULATORY - [facility] Lab Results: +/- 30 days [...] Type Comment Jul 03, 2024 01:30 PM [facility] FOLATE (WROX) SERUM Specimen Type: SERUM No comment entered. Ordering Provider: LUIS FERNANDO FONTANEZ Report Released Date/Time: May 25, 2024 08:50 AM Reporting Lab: [facility] [address] [facility] [phone] Performing Lab: [facility] [address] [facility] [address] FOLATE (WROX) 8.8 ng/mL >5.2 Jul 03, 2024 01:30 PM [facility] PTH INTACT SERUM Specimen Type: SERUM No comment entered. Ordering Provider: LUIS FERNANDO FONTANEZ Report Released Date/Time: Jun 18, 2024 08:46 AM Reporting Lab: [facility] [address] Performing Lab: [facility] [address] PTH INTACT 34.0 pg/mL 8.7-77.1 Jul 03, 2024 01:30 PM [facility] BASIC METABOLIC PANEL (non-fasting) SERUM Spe cimen Type: SERUM No comment entered. Ordering Provider: LUIS FERNANDO FONTANEZ Report Released Date/Time: May 25, 2024 08:50 AM Reporting Lab: [facility] [address] Performing Lab: [facility] [address] UREA NITROGEN 15 mg/dL 7-25 GLUCOSE 80 mg/dL 65-100 SODIUM 138 mmol/L 135-145 POTASSIUM 3.5 mmol/L 3.5-5.0 CHLORIDE 101 mmol/L 100-110 CO2 28 meq/L 20-30 CREATININE, Serum 0.88 mg/dL 0.50-1.40 eGFR(CKD-EPI 2020) 90 mL/min >60 Jul 03, 2024 01:30 PM [facility] MAGNESIUM SERUM Specimen Type: SERUM No comment entered. Ordering Provider: LUIS FERNANDO FONTANEZ Report Released Date/Time: May 25, 2024 08:50 AM Reporting Lab: [facility] [address] Performing Lab: [facility] [address] MAGNESIUM 1.9 mg/dL 1.6-2.6 Jul 03, 2024 01:30 PM [facility] LIVER FUNCTION SERUM Specimen Type: SERUM No comment entered. Ordering Provider: LUIS FERNANDO FONTANEZ Report Released Date/Time: May 25, 2024 08:50 AM Reporting Lab: [facility] [address] [facility] [address] Performing Lab: [address] [address] PROTEIN,TOTAL 7.0 g/dL 6.0-8.3 ALBUMIN 3.5 g/dL 3.5-5.0 ALKALINE PHOSPHATASE 93 U/L 40-150 AST 19 U/L 5-34 ALT 7 U/L BILIRUBIN, TOTAL 0.3 mg/dL 0.2-1.2 Jul 03, 2024 01:30 PM [facility] VITAMIN B12 SERUM Specimen Type: SERUM No comment entered. Ordering Provider: LUIS FERNANDO FONTANEZ Report Released Date/Time: May 25, 2024 08:50 AM Reporting Lab: [address] [address] Performing Lab: [address] [address] VITAMIN B12 435 pg/mL 200-900 Jul 03, 2024 01:30 PM [facility] VITAMIN D (25-OH) SERUM Specimen Type: SERUM No comment entered. Ordering Provider: LUIS FERNANDO FONTANEZ Report Released Date/Time: May 25, 2024 08:50 AM Reporting Lab: [address] [address] Performing Lab: [address] [address] VITAMIN D (25-OH) 37 ng/mL 20-50 Jul 03, 2024 01:30 PM [facility] IRON & TIBC PANEL SERUM Specimen Type: SERUM No comment entered. Ordering Provider: LUIS FERNANDO FONTANEZ Report Released Date/Time: May 25, 2024 08:50 AM Reporting Lab: [address] [address] Performing Lab: [address] [address] TIBC 351 ug/dL 204-475 IRON 111 ug/dL 40-160 Transferrin Saturation 31.6 20.0-50.0 Transferrin (TRF) 266 mg/dL 200-360 Jul 03, 2024 01:30 PM [facility] [place] [facility] FERRITIN SERUM Specimen Type: SERUM No comment entered. Ordering Provider: LUIS FERNANDO FONTANEZ Report Released Date/Time: May 25, 2024 08:50 AM Reporting Lab: [place] [facility] [place] [address] [address] Performing Lab: [place] [facility] [place] [address] [address] FERRITIN 28 ng/mL 20-300 Jul 03, 2024 01:30 PM [facility] RETICULOCYTES BLOOD Specimen Type: BLOOD No comment entered. Ordering Provider: LUIS FRENANDO FONTANEZ Report Released Date/Time: May 25, 2024 08:50 AM Reporting Lab: [place] [facility] [place] [address] [address] Performing Lab: [facility] [place] [address] [address] RETIC % 0.9 0.6-2.0 RETIC, ABS 44.5 10*3/uL 30.0-90.0 RET-HE 31.3 pg 27.9-42.0 Jul 03, 2024 01:30 PM [facility]N [facility] TSH SERUM Specimen Type: SERUM No comment entered. Ordering Provider: LUIS FERNANDO FONTANEZ Report Released Date/Time: May 25, 2024 08:50 AM Reporting Lab: [place] [facility] [place] [facility] [address] [facility] [address] Performing Lab: [facility] [place] [address] [address] TSH 2.21 u[IU]/mL 0.35-5.00 Jul 03, 2024 01:30 PM [facility] [place] [facility] PO4 SERUM Specimen Type: SERUM No comment entered. Ordering Provider: LUIS FERNANDO FONTANEZ Report Released Date/Time: May 25, 2024 10:21 AM Reporting Lab: [facility] [place] [facility] [address] [facility] [address] Performing Lab: [facility] [address] [facility] [address] PO4 2.8 mg/dL 2.5-5.0 Jul 03, 2024 01:30 PM [facility] URIC ACID SERUM Specimen Type: SERUM No comment entered. Ordering Provider: LUIS FERNANDO FONTANEZ Report Released Date/Time: Jun 18, 2024 08:46 AM Reporting Lab: [facility] [address] [facility] [address] Performing Lab: [facility] [address] [address] URIC ACID 5.8 mg/dL 3.5-7.2 Jul 03, 2024 01:30 PM [facility] MAGNESIUM SERUM Specimen Type: SERUM No comment entered. Ordering Provider: LUIS FERNANDO FONTANEZ Report Released Date/Time: Jun 18, 2024 08:46 AM Reporting Lab: [facility] [address] [facility] [address] Performing Lab: [facility] [address] [address] MAGNESIUM 1.8 mg/dL 1.6-2.6 Jul 03, 2024 01:30 PM [facility] CBC AND DIFF (AUTO) BLOOD Specimen Type: BLOO D No comment entered. Ordering Provider: LUIS FERNANDO FONTANEZ Report Released Date/Time: May 25, 2024 08:50 AM Reporting Lab: [facility] [address] [facility] [address] Performing Lab: [facility]USE[address] [address] WBC 8.62 10*3/uL 4.50-11.00 RBC 4.84 10*6/uL [...] Height Weight Body Mass Index Source Jun 04, 2024 11:15 AM 98.7 68 94/60 18 98 0 [facility] Social History: Smoking [...] Facil ity May 25, 2024 09:30 AM [place]-TOBACCO NEVER U SED CIGARETTES [facility] Tobacco Use History This section includes a history of the smoking, or tobacco-related health factors, that were collected on or before the date of the Encounter. The data comes from the [place] facility where the Encounter took place. Date/Time Smoking Status/Tobacco Use Comment F acility May 25, 2024 09:30 AM [place]-TOBACCO NEVER U SED OTHER TYPE [facility] [place] [facility] Jan 19, 2023 12:24 PM VA-TOBACCO NEVER USED [facility] [place] [facility] Jan 15, 2021 11:00 AM VA-TOBACCO NEVER USED [facility] [place] [facility] Advance Directives: All historical and [...] 2021 ADVANCE DIRECTIVE BENTON ARAUZ CN[facility] W[facility]N [facility] Encounter Notes: All associated encounter notes This section contains the clinical notes associated to the Encounter. Date/Time Encounter Note(s) Provider Source Jun 04, 2024 11:18 AM [facility] NURSING NOTE: LOCAL TITLE: [facility] RN PROGRESS NOTE STANDARD TITLE: [facility] NURSING NOTE DATE OF NOTE: JUN 04, 2024@11:18 ENTRY DATE: JUN 04, 2024@11:18:50 AUTHOR: JENNIFER SEGURA EXP COSIGNER: URGENCY: STATUS: COMPLETED Nursing Progress Note Active and Recently Outpatient Medications (including Supplies): Active Outpatient Medications Status 1) APIXABAN 5MG TAB TAKE ONE TABLET BY MOUTH EVERY 12 HOURS FOR ACTIVE Indication: ATRIAL FIBRILLATION 2) ARTIFICIAL SALIVA ORAL SPRAY SPRAY 2 SPRAYS BY MOUTH EVERY 2 ACTIVE HOURS NEEDED (USE DIRECTED) Indication: FOR DRY MOUTH 3) BISACODYL 10MG RTL SUPP INSERT 1 SUPPOSITORY(IES) RECTALLY ACTIVE ONCE DAILY NEEDED FOR BOWELS - LAXATIVE Indication: FOR CONSTIPATION 4) CARBIDOPA 25/LEVODOPA 100MG SA TAB TAKE 1 TABLET BY MOUTH ACTIVE (S) FOUR TIMES A DAY 5) CARBIDOPA 25/LEVODOPA 100MG TAB TAKE 1 TABLET BY MOUTH FOUR ACTIVE (S) TIMES A DAY 6) CATH,EXTERNAL EXTENDED WEAR SMALL H#[id number] USE 1 CATHETER ACTIVE URETHRAL ONCE DAILY Indication: INCONTINENCE 7) CHLORHEXIDINE GLUCONATE 0.12% MOUTHWASH RINSE 15ML BY MOUTH ACTIVE ONCE DAILY - SWISH AND SPIT. DO NOT SWALLOW Indication: FOR INFLAMMATION OF THE GUMS 8) CHOLECALCIF 25MCG (D3-1,000UNIT) TAB TAKE ONE TABLET BY ACTIVE MOUTH ONCE DAILY FOR VITAMIN SUPPLEMENTATION Indication: FOR VITAMIN D DEFICIENCY 9) DEPEND UNDERWEAR,MAXIMUM,MEN LARGE USE 1 BRIEF DIRECTED ACTIVE THREE TIMES A DAY Indication: INCONTINENCE 10) DIAPER ADULT LARGE EXTRA ABSORBENT USE 1 BRIEF DIRECTED ACTIVE THREE TIMES A DAY Indication: INCONTINENCE 11) FAMOTIDINE 20MG TAB TAKE ONE TABLET BY MOUTH ONCE DAILY FOR ACTIVE STOMACH ACID Indication: FOR HEARTBURN 12) FEED BAG W/PUMP SET ENFIT COVID#[id number] USE 1 BAG VIA G-TUBE ACTIVE ONCE DAILY Indication: NUTRITION 13) FEED SET 1000ML PUMP SET CARD#[id number] USE 1 BAG FOR OVERNIGHT ACTIVE FEED ONCE DAILY Indication: NUTRITION 14) GLYCOPYRROLATE 2MG TAB TAKE ONE TABLET BY MOUTH DIRECTED ACTIVE (S) BY PROVIDER 2-3 TIMES A DAY NEEDED FOR SECRETIONS 15) HYDROCHLOROTHIAZIDE 25MG TAB TAKE ONE TABLET BY MOUTH ONCE ACTIVE (S) DAILY Indication: FOR CALCIUM IN URINE 16) HYDROPHILIC (EQV EUCERIN) TOP CREAM APPLY A LIBERAL AMOUNT ACTIVE TOPICALLY ONCE DAILY Indication: FOR DRY SKIN 17) HYDROXYZINE HCL 10MG TAB TAKE ONE TABLET BY MOUTH AT BEDTIME ACTIVE (S) NEEDED FOR SLEEP Indication: INSOMNIA 18) INCONT LINER PREVAIL GUARDS #[id number] USE 1 LINER TOPICALLY ACTIVE TWO TIMES A DAY Indication: INCONTINENCE 19) INCONT LINER,MENS X-HVY SURECARE #[id number] USE 1 LINER ACTIVE TOPICALLY AT BEDTIME Indication: INCONTINENCE 20) WRAP,MALE USE 1 WRAP TOPICALLY AT BEDTIME ACTIVE Indication: INCONTINENCE 21) IRRIGATING SYRINGE CATHETER TIP 50-60ML USE 1 SYRINGE ACTIVE NEEDED Indication: NUTRITION 22) MELATONIN 5MG CAP/TAB TAKE THREE CAPSULE/TABLETS BY MOUTH AT ACTIVE BEDTIME Indication: FOR INSOMNIA 23) MEMANTINE HCL 10MG TAB TAKE ONE TABLET BY MOUTH TWICE DAILY ACTIVE (S) 24) MIDODRINE HCL 5MG TAB TAKE ONE TABLET BY MOUTH THREE TIMES ACTIVE DAILY NEEDED Indication: FOR LOW BLOOD PRESSURE 25) MULTIVITAMIN/MINERALS LIQUID TAKE 1 TABLESPOON (15ML) BY ACTIVE MOUTH ONCE DAILY Indication: FOR VITAMIN SUPPLEMENTATION 26) OATMEAL,COLLOIDAL CLEANSING BAR/DRY SKIN DIRECTED [...] TABLET BY MOUTH ONCE ACTIVE (S) DAILY 30) TAPE,MICROPORE 2IN #1530-2 USE 1 PIECE TOPICALLY ONCE ACTIVE DAILY NEEDED FOR TUBE FEED CONNECTION Indication: FOR TUBE FEED CONNECTION 31) UNDERPAD,BED ULTRASORB [id number] M#3136 USE 2 UNDERPADS ACTIVE TOPICALLY AT BEDTIME Indication: INCONTINENCE 32) URINARY DRAINAGE BAG BARD #[id number] USE 1 URINARY DRAINAGE BAG ACTIVE EVERY 7 DAYS Indication: INCONTINENCE 33) VALVE,ARCHANA ENTERAL,ICU MEDICAL #9000 USE 1 VALVE ONCE DAILY ACTIVE Indication: NUTRITION Pending Outpatient Medications Status 1) NUTRITION SUPL ENSURE PLUS/VANILLA LIQ DRINK 1 CAN BY MOUTH PENDING THREE TIMES A DAY Indication: FOR NUTRITIONAL SUPPLEMENTATION 34 Total Medications MEDICATION REVIEW Medication review [...] in patient's home at time of visit. Fountain identified by: Full Name, Facial Recognition Length of visit in home: 45 minutes Problem addressed for this visit: PD, Dysphagia, G-tube management Specimen(s) collected during this visit: None NURSING SUMMARY: RNCM made home visit for c/v and c/p assessment, assess diet and toleration, review meds. sitting at kitchen table eating breakfast upon arrival, spouse present. alert + oriented x 2 cooperative with care. Oriented to date and time. Spouse reports Fountain is having off day contributes to bad night of sleep. has been pulling off condom catheter at night. Woke up in the middle of the night saturated. Need to be changed. Fountain having hard time sleeping with CPAP per spouse, doesn't fit right. Well groomed. Dressed appropriately. Poor eye contact. Relying on spouse to answer questions. Will answer with yes , no or nod is head. Speech monotone, able to understand. Muscle rigidity to upper and lower extremities. He has drooling taking glycopyrrolate which spouse states is helping. Fountain with sundowning that starts early evening. No hallucinations or behavior issues at this time. Blood pressure fluctuates. Today BP on the lower side 94/60. Reviewed drinking at least 48 oz of water daily. Denies chest pain, palpations, dizziness. Afib controlled with meds. On apixaban. Taking as directed. Denies bleeding. Reviewed bleeding precautions. High fall risk. . Abdomen soft non-tender, non-distended + bs x 4. Moving bowels every 2-3 days. G-tube to mid abdomen patent + benign. Surrounding area c/d/i. G-tube feedings discontinued. Dysphagia: Had MBSS on 05/24. CURRICULUM MANAGER recommended minced and moist diet with thin liquids. Spouse reports since he's been home, Fountain has been eating 3 meals/day. Spouse reports she makes sure what she serves is moist, and majority of the foods she cuts into very small pieces or she purees. encourages him to eat a full meal 3x/day. Drinking 48 oz of fluid daily. Denies any choking episodes manages and administers meds. Administering meds in pudding or applesauce. Reviewed medication regimen. Spouse administering meds as directed. Spouse requesting multivitamin to be changed back to tablet form. Fountain doesn't like the taste of the multivitamin solution starts to gag and spits it out. Kidney US on 06/01/24 findings: Right Kidney measures 9.9 cm longitudinally. No right hydronephrosis. Small exophytic cyst in the lower pole of the right kidney.Left Kidney measures 11.0 cm longitudinally. No left hydronephrosis. 3 non-obstructing left renal calcifications. Urinary bladder unremarkable. Requested [place] results to be faxed to [place]. Fountain having problems with cpap mask not fitting correctly. Reports Fountain does well for 3-4 hours then mask will start to slide down off nose. Spouse reports sleeps with mouth open and feels this is what's causing the problem. Asking for recommendations from [place] RT. Blood Pressure: 94/60 (06/04/2024 11:15) Pulse: 68 (06/04/2024 11:15) Respiration: 18 (06/04/2024 11:15) Temperature: 98.7 F [37.1 C] (06/04/2024 11:15) Pain Score: 0 (06/04/2024 11:15) EXAMINATION: Lungs: Ls clear throughout. Resp easy [...] as possible with assist from his and [facility], [facility] Patient verbalizes understanding to above and will call with any concerns or changes in condition. For emergent care call 911. Revisit: 07/03/24 for chronic disease management, neuro assessment, c/v and c/p assessment, med review, labs /es/ JENNIFER SEGURA LIFE SKILLS WORKER [facility] GRINDER Signed: 06/04/2024 18:45 JENNIFER SEGURA [place] [facility]
== END 2024-10-29 14:29 | disposition home or self-care (01) ==
LOC: HO.HSMS 13:20
PROVIDERS: PCP Family Medicine; Visit Provider Psychiatry & Neurology Neurology
DX: G20.A2 Parkinson's disease without dyskinesia, with fluctuations (principal); G47.52 REM sleep behavior disorder
CPT/HCPCS: 98012

== ENCOUNTER 2025-03-28 13:43 | Outpatient (AMB) | payer OTHER, SELFPAY ==
--- NOTE | 2025-03-28 13:45 | MHC.OFFVIS ---
Vital Signs 03/28/25 13:46 Height 5 ft 6 in Weight 185 lb 4 oz BMI 29.9 BP 112/64 Blood Pressure Location Lt brachial Position Sitting Pulse 66 Pulse Source Pulse Oximeter Pulse Oximetry (%) 98 Oxygen Delivery Method Room Air Intake Visit Reasons: Parkinson's follow up Intake Note: Follow up Parkinson's disease without dyskinesia, with fluctuating manifestations and REM sleep disorder Economic Development Specialist Required: No Accompanied by: Spouse Allergies mirtazapine (From Remeron) Allergy (Severe, Verified 03/28/25 13:45) choking amoxicillin Allergy (Mild, Verified 03/28/25 13:45) unknown azithromycin Allergy (Mild, Verified 03/28/25 13:45) unknown tamsulosin (From Flomax) Allergy (Mild, Verified 03/28/25 13:45) unknown quetiapine Allergy (Verified 03/28/25 13:45) Unknown Statins Allergy (Severe, Uncoded 10/29/24 13:21) rhadeomyolitis IVP DYE Allergy (Uncoded 10/29/24 13:21) Unknown HPI Comments Details: 74 y/o male calls for follow up of parkinsons disease and cognitive issues.he had Raynauds and was started on procardia Xr 10mg . He has had multiple ER visits for falls. He hit his head 2 weeks ago after his fall and was confused . CT head was oK.He uses a walker. He is irritable and can become aggressive sometimes. 2 weeks ago he tried to punch his and fell in the shower. 1 hr after he takes carbidopa/levodopa he develops a redness in his face and hands - lasts 1 hrs and resolves. No itching , no dizziness etc. [facility] He is currently at home . 08/12CT scan - head showed right frontoparietal chronic subdural hemtoma 01/18/23 There is mild generalized atrophy. There is nonspecific periventricular white matter disease. Prominent extra-axial CSF spaces versus possible small subdural hygromas appear similar to December 2021 exam. No evidence of hemorrhage. No mass, mass effect or infarct. Review at bone windows is normal. No skull fracture. Visualized paranasal sinuses, mastoid air cells and middle ears are clear. [facility] Medical History (Updated 03/28/25 @ 14:14 by Fabby Sun MD) Dementia Parkinson's disease without dyskinesia, with fluctuating manifestations Subdural hematoma, nontraumatic Subdural hematoma Vitamin D deficiency Exposure to potentially hazardous chemical Exposure to solvent Exposure to cadmium Rhabdomyolysis Anxiety Atrial fibrillation Depression Hypertrophy of prostate Surgical History History of urostomy History of lithotripsy History of removal of calculus of renal pelvis through percutaneous nephrostomy No pertinent past surgical history Family History Mother Heart disease CHF (congestive heart failure) Diabetes Father Dementia Family/Other Mesothelioma Paranoid schizophrenia Depressive disorder Social History Household Members: Spouse Alcohol intake: never Patient Tobacco Use Status: Never used Tobacco Physical Exam Vital Signs: Last Vital Signs Pulse 66 03/28/25 13:46 BP 112/64 03/28/25 13:46 Pulse Ox 98 03/28/25 13:46 Oxygen Delivery Method Room Air 03/28/25 13:46 BMI result Body Mass Index 29.9 Const Orientation/consciousness: oriented to person and oriented to place Eyes Pupils: Equal, round and reactive pupils present Neuro Other: moderate decreased facial expression and blink No tremors FFM and foot taps decreased moderately R>L Hypophonia cog wheel rigidity 2+right 1 on left General: oriented to person, oriented to place and moves all extremities Cranial nerves: Yes Equal, round and reactive pupils present and Yes Normal facial strength present Coordination: [id number] test normal Assessment & Plan Assessment & Plan (1) Parkinson's disease without dyskinesia, with fluctuating manifestations: Code(s): G20.A2 - Parkinson's disease without dyskinesia, with fluctuations Category: Medical (2) REM behavioral disorder: Code(s): G47.52 - REM sleep behavior disorder Category: Medical (3) Dementia: Code(s): F03.90 - Unspecified dementia, unspecified severity, without behavioral disturbance, psychotic disturbance, mood disturbance, and anxiety Category: Medical Qualifiers: Dementia type: unspecified type Dementia severity: moderate Plan carbidopa /levodopa 1 tab 5 times a day carbidopa levodopa ER 1tabs 25/100 qid glycopyrrolate 2mg bid to tid azilect 1mg qd namenda 10mg bid Monitor BP- has been stable He has home health aide 5 days a week Hospice care Medications: Changed From carbidopa-levodopa 25-100 mg (Sinemet) 1 tab PO QID 90 days 360 tabs 3RF To carbidopa-levodopa 25-100 mg (Sinemet) 1 tab PO .5 times a day 450 tabs 3RF 90 days From rasagiline (Azilect) 1 mg PO DAILY 90 tabs 5RF To rasagiline (Azilect) 1 mg PO DAILY 90 tabs 5RF 90 days Refilled carbidopa-levodopa 25-100 mg ER 1 tab PO QID 360 tabs 5RF 90 days Coding Level of Care Code Est Pt Level 4 (92704) Complex EM visit Add On G2211 Diagnoses Parkinson's disease without dyskinesia, with fluctuating manifestations G20.A2 REM behavioral disorder G47.52 Dementia F03.90 Dementia type: unspecified type Dementia severity: moderate
[2025-03-28 13:46] VITALS: BP 112/64; PULSE 66; O2SAT 98; BMI 29.9
== END 2025-03-28 14:22 | disposition home or self-care (01) ==
LOC: HO.HSMS 13:43
PROVIDERS: PCP Family Medicine; Visit Provider Psychiatry & Neurology Neurology
DX: G20.A2 Parkinson's disease without dyskinesia, with fluctuations (principal); G47.52 REM sleep behavior disorder; F03.90 Unspecified dementia, unspecified severity, without behavioral disturbance, psychotic disturbance, mood disturbance, and anxiety
CPT/HCPCS: 99214